=== PATIENT | female | born 1935 | race Caucasian/White ===

== ENCOUNTER 2019-01-24 14:12 | Observation (INO) | payer OTHER ==
--- NOTE | 2019-01-24 14:51 | RAD REPORT ---
EXAM DESCRIPTION: CT - Head Brain Wo Cont - 01/24/2019 2:43 pm CLINICAL HISTORY: Fall, syncope COMPARISON: None. TECHNIQUE: Axial 5 mm thick images of the head were obtained without IV contrast. All CT scans are performed using dose optimization technique as appropriate and may include automated exposure control or mA/KV adjustment according to patient size. FINDINGS: No intracranial hemorrhage, mass, edema or shift of mid-line structures. No acute infarcti on changes seen. Mild atrophy and chronic ischemic change. Ventricles are normal. Mastoid air cells are clear. Orbits, facial bones and sinuses are separately detailed. No acute bony findings. IMPRESSION: Mild atrophy and chronic ischemic change. No acute intracranial finding.
--- NOTE | 2019-01-24 14:53 | RAD REPORT ---
EXAM DESCRIPTION: CT - Facial Bones W/ Mpr - 01/24/2019 2:43 pm CLINICAL HISTORY: Fall, facial trauma, right periorbital injury COMPARISON: None. TECHNIQUE: Axial 2 millimeter thick images of the facial bones were obtained with sagittal and coron al reconstruction imaging. All CT scans are performed using dose optimization technique as appropriate and may include automated exposure control or mA/KV adjustment according to patient size. FINDINGS: Prominent cervical spine degenerative changes are present only partially imaged. Disc spac e narrowing is present from C2 -C6. No mandible fracture. Condyles are normally positioned. Mastoid air cells are clear. Paranasal sinuse s are clear. No facial bone fracture identifiable. Globes and orbital contents show no suspicious fin dings. Mild right-sided periorbital contusion or edema changes are present. Globes and orbital conten ts are unremarkable. IMPRESSION: No facial bone fracture. Right periorbital contusion and edema changes are present.
[2019-01-24] MEDS ORDERED: NA CHLORIDE 0.9% 500 ML ONE (15:12)
[2019-01-24 15:14] LABS: Absolute Lymphocytes (CBC) 1.4 K/uL (0.7-4.9); Absolute Monocytes 1.4 K/uL (0.1-1.3); Absolute Neutrophil 5.2 K/uL (1.8-8.0); Basophils % 0.6 % (0-1.3); Eosinophils % 3.6 % (0-4.4); Hematocrit 37.7 % (36.0-45.0); Lymphocytes % 16.5 % (15.3-44.8); MPV 7.1 fL (7.6-11.3); Monocytes % 16.5 % (3.3-12.3); RBC Red Blood Cell Count 3.88 M/uL (3.86-4.86)
[2019-01-24 15:33] LABS: BUN Blood Urea Nitrogen 20 mg/dL (7-18); Bicarbonate 28 mmol/L (21-32); Glucose Level 94 mg/dL (74-106); Sodium Level 129 mmol/L (136-145); Troponin (Emerg Dept Use Only) < 0.02 ng/mL (0.0-0.045)
[2019-01-24 16:28] LABS: Blood Morphology Comment NOT SEEN (NOT SEEN); Platelet Estimate ADEQ; Urine White Blood Cell Casts OK
--- NOTE | 2019-01-24 16:31 | RAD REPORT ---
EXAM DESCRIPTION: CT - Neck Angio - 01/24/2019 4:18 pm CLINICAL HISTORY: fall Fall, syncope, head injury and headache. COMPARISON: No comparisons TECHNIQUE: CT angiography of the neck vessels was performed with MIPs. All CT scans are performed using dose optimization technique as appropriate and may include automated exposure control or mA/KV adjustment according to patient size. FINDINGS: No significant flow abnormality is seen of the common carotid bilaterally. No significant stenosis is identified involving the cervical segments of both internal carotid arteri es. Normal flow is seen within both vertebral arteries. The left-sided vertebral artery is dominant. Moderate lower cervical degenerative change. IMPRESSION: No significant flow abnormality of the neck vessels is identified.
--- NOTE | 2019-01-24 16:34 | RAD REPORT ---
EXAM DESCRIPTION: CT - Head angio - 01/24/2019 4:17 pm CLINICAL HISTORY: SLURRED SPEECH Syncope, fall, head injury. Headache COMPARISON: Head Brain Wo Cont dated 01/24/2019; Facial Bones W/ Mpr dated 01/24/2019 TECHNIQUE: CT angiography of the head was performed with MIPs. All CT scans are performed using dose optimization technique as appropriate and may include automated exposure control or mA/KV adjustment according to patient size. FINDINGS: No evidence of aneurysm is detected. No flow-limiting stenosis or vascular malformation id entified. Antegrade flow is seen in the vertebral arteries. The left vertebral artery is dominant. The visualized dural venous sinuses are patent. IMPRESSION: No significant flow abnormality is detected.
[2019-01-24 16:39] LABS: Protime INR 0.89
--- NOTE | 2019-01-24 16:49 | EDPHYS ---
Physician Documentation [facility] Name: Scarlett Garrett Age: 83 yrs Sex: Female : 1935 Arrival Date: 01/24/2019 Time: 14:16 Bed 8 Private MD: ED Physician Herbert Rodriges HPI: 01/24 16:24 This 83 yrs old Female presents to ER via EMS with complaints of Syncope. rn 16:24 The patient has experienced syncope. Onset: The symptoms/episode began/occurred just rn prior to arrival. Duration: This was a single episode. Associated injury: Head/face: contusion. Current symptoms: headache. The patient has not experienced similar symptoms in the past. Reports syncopal episode at restaurant, felt lightheaded, went to use bathroom, voided, still felt lightheaded, passed out, then woke up on floor, Hit face on floor, no seizure like activity. No chest pain/abd pain/vomiting/diarrhea. No focal neurological complaints upon arrival. . Historical: - Allergies: 14:24 Cipro; iw 14:24 Levaquin; iw - Home Meds: 14:33 metoprolol tartrate 37.5 mg Oral tab 1 tab 2 times per day [Active]; nicardipine 20 mg iw oral cap twice a day [Active]; levothyroxine 50 mcg tab 1 tab once daily [Active]; Celebrex 200 mg Oral cap 1 cap once daily [Active]; Lexapro 10 mg Oral tab 1 tab once daily [Active]; trazodone 100 mg Oral tab nightly [Active]; Benicar 20 mg oral tab 1 tab once daily [Active]; vitamin A 10,000 unit Oral cap 1 cap once daily [Active]; Vitamin D Oral 5000 unit daily [Active]; Vitamin C Oral daily [Active]; Fish Oil oral oral daily [Active]; AREDS daily [Active]; magnesium oxide 400 mg Oral tab daily [Active]; biotin 5 mg oral tab daily [Active]; Zyrtec 10 mg Oral tab 1 tab once daily [Active]; Flonase 50 mcg/actuation Nasal spsn 1 spray once daily [Active]; - PMHx: 14:24 Arthritis; Depression; severe tricuspid valve regurgitation; iw - PSHx: 14:24 hip replacement; back; iw - Immunization history:: Adult Immunizations unknown. - Ebola Screening: : Patient negative for fever greater than or equal to 101.5 degrees Fahrenheit, and additional compatible Ebola Virus Disease symptoms Patient denies exposure to infectious person Patient denies travel to an Ebola-affected area in the 21 days before illness onset No symptoms or risks identified at this time. - Family history:: not pertinent. - Social history:: Smoking status: unknown. - Hospitalizations: : No recent hospitalization is reported. ROS: 16:24 Constitutional: Negative for fever, chills, and weight loss, Eyes: + pain and injury to rn right periorbital region Neck: Negative for injury, pain, and swelling, Cardiovascular: Negative for chest pain, palpitations, and edema, Respiratory: Negative for shortness of breath, cough, wheezing, and pleuritic chest pain, Abdomen/GI: Negative for abdominal pain, nausea, vomiting, diarrhea, and constipation, MS/Extremity: Negative for injury and deformity, Skin: Negative for injury, rash, and discoloration, Neuro: + headache, no focal weakness/numbness Exam: 16:24 Constitutional: This is a well developed, well nourished patient who is awake, alert, rn and in no acute distress. Head/Face: Normocephalic Eyes: Pupils equal round and reactive to light, extra-ocular motions intact. Lids and lashes normal. Conjunctiva and sclera are non-icteric and not injected. Cornea within normal limits. + right lateral periorbital ecchymosis with mild tenderness, no evidence of entrapment. ENT: Mucous membranes moist. Neck: No cervical tenderness Cardiovascular: Regular rate and rhythm, No pulse deficits. Respiratory: Lungs have equal breath sounds bilaterally, clear to auscultation. No increased work of breathing, no retractions or nasal flaring. Abdomen/GI: soft, non-tender MS/ Extremity: Pulses equal, no cyanosis. Neurovascular intact. Full, normal range of motion. Equal circumference. Neuro: Awake and alert, GCS 15, oriented to person, place, time, and situation. Cranial nerves II-XII grossly intact. Motor strength 5/5 in all extremities. Sensory grossly intact. Cerebellar exam normal. Vital Signs: 14:21 BP 110 / 58; Pulse 65; Resp 16 S; Temp 97.3(TE); Pulse Ox 100% on R/A; Weight 70.31 kg; iw Height 5 ft. 9 in. (175.26 cm); Pain 6/10; 15:00 BP 128 / 65; Pulse 62; Resp 16 S; Pulse Ox 99% on R/A; aa5 15:31 BP 129 / 54; Pulse 61; Resp 16 S; Pulse Ox 100% on R/A; iw 16:50 BP 129 / 85; Pulse 59; Resp 16; Pulse Ox 99% ; sv 17:30 BP 143 / 78; Pulse 60; Resp 16 S; Pulse Ox 99% on R/A; aa5 18:14 BP 147 / 94; Pulse 60; Resp 14 S; Pulse Ox 100% on R/A; aa5 19:36 Pulse 61; Resp 16 S; Pulse Ox 100% on R/A; jd3 20:33 Pulse 59; Resp 17 S; Pulse Ox 100% on R/A; jd3 14:21 Body Mass Index 22.89 (70.31 kg, 175.26 cm) iw NIH Stroke Scale Scores: 15:47 NIHSS Score: 1 aa5 MDM: 14:19 Patient medically screened. rn 16:47 Differential Diagnosis: cardiac arrhythmia, cerebrovascular accident, idiopathic rn syncope, transient ischemic attack, vasovagal episode. Data reviewed: vital signs, nurses notes, lab test result(s), EKG, radiologic studies, CT scan, and as a result, I will admit patient. Counseling: I had a detailed discussion with the patient and/or guardian regarding: the historical points, exam findings, and any diagnostic results supporting the discharge/admit diagnosis, lab results, radiology results, the need for further work-up and treatment in the hospital. Response to treatment: the patient's symptoms have markedly improved after treatment, the patient's condition has returned to base line, and as a result, I will discharge patient. Admission orders: after a detailed discussion of the patient's condition and case, the admit orders are written by me. 01/24 14:30 Order name: Basic Metabolic Panel; Complete Time: 16:36 rn 01/24 14:30 Order name: CBC with Diff; Complete Time: 16:36 rn 01/24 14:30 Order name: Protime (+inr); Complete Time: 16:49 rn 01/24 14:30 Order name: Ptt, Activated; Complete Time: 16:49 rn 01/24 14:30 Order name: Troponin (emerg Dept Use Only); Complete Time: 16:36 rn 01/24 15:17 Order name: CBC Smear Scan; Complete Time: 16:36 EDMS 01/24 14:30 Order name: CT Head Brain wo Cont; Complete Time: 14:57 rn 01/24 14:30 Order name: EKG; Complete Time: 14:31 rn 01/24 14:30 Order name: CT Facial Bones W/O Con; Complete Time: 14:57 rn 01/24 15:57 Order name: CT Head Angio; Complete Time: 16:36 bd 01/24 15:57 Order name: CT Neck Angio; Complete Time: 16:36 bd 01/24 18:45 Order name: Glucose, Ancillary Testing; Complete Time: 07:32 EDMS 01/24 21:15 Order name: MRI; Complete Time: 07:32 EDMS 01/24 14:30 Order name: Cardiac monitoring; Complete Time: 14:34 rn 01/24 14:30 Order name: EKG - Nurse/Tech; Complete Time: 14:34 rn 01/24 14:30 Order name: IV Saline Lock; Complete Time: 14:34 rn 01/24 14:30 Order name: Labs collected and sent; Complete Time: 15:12 rn 01/24 14:30 Order name: NPO; Complete Time: 15:02 rn 01/24 14:30 Order name: O2 Per Protocol; Complete Time: 14:34 rn 01/24 14:30 Order name: O2 Sat Monitoring; Complete Time: 14:34 rn Administered Medications: 14:50 Drug: NS 0.9% 500 ml Route: IV; Rate: bolus; Site: right antecubital; aa5 15:30 Follow up: IV Status: Completed infusion aa5 Point of Care Testing: Blood Glucose: 15:55 Blood Glucose: 92 mg/dL; iw Ranges: Critical Glucose Levels:Adult <50 mg/dl or >400 mg/dl <40 mg/dl or >180 mg/dl Disposition: 01/24/19 16:49 Hospitalization ordered by Ginger Sharpe for Observation. Preliminary diagnosis are Syncope and collapse, Concussion. - Bed requested for Telemetry/MedSurg (observation). - Status is Observation. jd3 - Condition is Stable. - Problem is new. - Symptoms have improved. UTI on Admission? No NIH Stroke Scale - NIH Stroke Score Date: 01/24/2019 Time: 15:47 Total Score = 1 1a. Level of Consciousness (LOC) - 0(Alert) 1b. Level of Consciousness (LOC) (Year \T\ Age) - 0(Both) 1c. LOC Commands (Open \T\ Closes Eyes/Social Media Executive) - 0(Both) 2. Best Gaze (Lateral Gaze Paresis) - 0(Normal) 3. Visual Field Loss - 0(No visual loss) 4. Facial Palsy - 0(Normal) 5a. Left Arm: Motor (10-second hold) - 0(No drift) 5b. Right Arm: Motor (10-second hold) - 0(No drift) 6a. Left Leg: Motor (5-second hold - always test supine) - 0(No drift) 6b. Right Leg: Motor (5-second hold - always test supine) - 0(No drift) 7. Limb Ataxia (finger/nose \T\ heel/hawkins - test with eyes open) - 0(Absent) 8. Sensory Loss (pinprick arms/legs/face) - 0(Normal) 9. Best Language: Aphasia (description/naming/reading) - 0(No aphasia) 10. Dysarthria (speech clarity - read or repeat words) - 1(Mild to Moderate) 11. Extinction and Inattention (visual/tactile/auditory/spatial/personal) - 0(No abnormality) Initials: aa5 Signatures: Dispatcher [employer] EDMS Dinah Fierro RN RN iw Nieto, Roman, MD MD rn Calderon, Audri, RN RN aa5 Cira Cervantes RN RN df Davies, Jonathon, RN RN jd3 Corrections: (The following items were deleted from the chart) 19:47 16:49 Hospitalization Ordered by Ginger Sharpe MD for Observation. Preliminary df diagnosis is Syncope and collapse; Concussion. Bed requested for Telemetry/MedSurg (observation). Status is Observation. Condition is Stable. Problem is new. Symptoms have improved. UTI on Admission? No. rn 21:16 19:47 01/24/2019 16:49 Hospitalization Ordered by Ginger Sharpe MD for jd3 Observation. Preliminary diagnosis is Syncope and collapse; Concussion. Bed requested for Telemetry/MedSurg (observation). Status is Observation. Condition is Stable. Problem is new. Symptoms have improved. UTI on Admission? No. df
--- NOTE | 2019-01-24 16:49 | ER ---
Nurse's Notes [facility] Name: Scarlett Garrett Age: 83 yrs Sex: Female : 1935 Arrival Date: 01/24/2019 Time: 14:16 Bed 8 Private MD: Diagnosis: Syncope and collapse;Concussion Presentation: 01/24 14:16 Presenting complaint: Patient states: walked to bathroom at restaurant, felt dizzy iw while walking, while sitting on toilet pt had increasing dizziness, then tried to stand and passed out, pt did hit head, bruising noted to right side of face/eye, pt states dizziness has resolved, denies chest pain or SOB, denies n/v, c/o pain to face 03/28. Initial BP was 80/50, up to 115 systolic upon arrival to ER. pt A\\T\\OX3. Transition of care: patient was not received from another setting of care. Onset of symptoms was January 24, 2019. Risk Assessment: Do you want to hurt yourself or someone else? Patient reports no desire to harm self or others. Initial Sepsis Screen: Does the patient meet any 2 criteria? No. Patient's initial sepsis screen is negative. Does the patient have a suspected source of infection? No. Patient's initial sepsis screen is negative. Care prior to arrival: IV initiated. 20 GA, in the right antecubital area, Glucose check: 125. 14:16 Method Of Arrival: EMS: [facility] iw 14:16 Acuity: VANESA 2 iw 15:48 An acute neurological deficit is present. The charge nurse has been notified. The iw patients blood glucose was checked before arriving to the hospital and was found to be normal. Triage Assessment: 15:47 The onset of the patients symptoms was January 24, 2019 at 15:47. aa5 Stroke Activation: Symptom onset < 3 hours Physician: Stroke Attending; Name: ; Notified At: ; Arrived At: Physician: Chief Stroke Resident; Name: ; Notified At: ; Arrived At: Physician: Stroke Resident; Name: ; Notified At: ; Arrived At: Physician: ED Attending; Name: Dr. Rodriges; Notified At: 15:48; Arrived At: 15:48 Physician: ED Resident; Name: ; Notified At: ; Arrived At: Historical: - Allergies: 14:24 Cipro; iw 14:24 Levaquin; iw - Home Meds: 14:33 metoprolol tartrate 37.5 mg Oral tab 1 tab 2 times per day [Active]; nicardipine 20 mg iw oral cap twice a day [Active]; levothyroxine 50 mcg tab 1 tab once daily [Active]; Celebrex 200 mg Oral cap 1 cap once daily [Active]; Lexapro 10 mg Oral tab 1 tab once daily [Active]; trazodone 100 mg Oral tab nightly [Active]; Benicar 20 mg oral tab 1 tab once daily [Active]; vitamin A 10,000 unit Oral cap 1 cap once daily [Active]; Vitamin D Oral 5000 unit daily [Active]; Vitamin C Oral daily [Active]; Fish Oil oral oral daily [Active]; AREDS daily [Active]; magnesium oxide 400 mg Oral tab daily [Active]; biotin 5 mg oral tab daily [Active]; Zyrtec 10 mg Oral tab 1 tab once daily [Active]; Flonase 50 mcg/actuation Nasal spsn 1 spray once daily [Active]; - PMHx: 14:24 Arthritis; Depression; severe tricuspid valve regurgitation; iw - PSHx: 14:24 hip replacement; back; iw - Immunization history:: Adult Immunizations unknown. - Ebola Screening: : Patient negative for fever greater than or equal to 101.5 degrees Fahrenheit, and additional compatible Ebola Virus Disease symptoms Patient denies exposure to infectious person Patient denies travel to an Ebola-affected area in the 21 days before illness onset No symptoms or risks identified at this time. - Family history:: not pertinent. - Social history:: Smoking status: unknown. - Hospitalizations: : No recent hospitalization is reported. Screenin:35 Abuse screen: Denies threats or abuse. Denies injuries from another. Nutritional iw screening: No deficits noted. Tuberculosis screening: No symptoms or risk factors identified. Fall Risk Fall in past 12 months (25 points). IV access (20 points). Assessment: 14:20 General: Appears in no apparent distress. Behavior is calm, cooperative. Pain: iw Complains of pain in right eye and right cheek Pain currently is 6 out of 10 on a pain scale. Neuro: Level of Consciousness is awake, alert, obeys commands, Moves all extremities. Full function. Neuro: Reports a syncopal episode Denies dizziness. Cardiovascular: Patient's skin is warm and dry. Rhythm is regular. Respiratory: Respiratory effort is even, unlabored, Respiratory pattern is regular, symmetrical. GI: Abdomen is flat, non-distended. Derm: Skin is intact, is healthy with good turgor, Bruising that is dark purple, on right eye. Musculoskeletal: Range of motion: intact in all extremities. 15:00 General: Appears comfortable, Behavior is calm, cooperative. Pain: Complains of pain in aa5 right cheek and right eye Pain does not radiate. Pain currently is 6 out of 10 on a pain scale. Quality of pain is described as aching, tender, throbbing, Pain began Post-fall Is continuous. Neuro: Level of Consciousness is awake, alert, obeys commands, Oriented to person, place, time, situation, Assistant Produce Manager are equal bilaterally Moves all extremities. Speech is normal, Facial symmetry appears normal, Pupils are PERRLA, Denies dizziness, Pt states "I was dizzy and nauseated before I passed out" . Cardiovascular: Heart tones S1 S2 present Rhythm is sinus rhythm. Respiratory: Airway is patent Respiratory effort is even, unlabored, Respiratory pattern is regular, symmetrical. GI: Abdomen is non-distended, Bowel sounds present X 4 quads. Abd is soft and non tender X 4 quads. : No signs and/or symptoms were reported regarding the genitourinary system. EENT: No signs and/or symptoms were reported regarding the EENT system. Derm: Skin is pink, warm \\T\\ dry. Bruising that is dark purple, on outer corner of right eye. Musculoskeletal: Range of motion: intact in all extremities. 15:47 Reassessment: Family member came to nurses' station and stated "can you come check on aa5 her she is talking funny". Pt lying down in bed, intermittent slurring of words noted, pt states "I know I am having trouble speaking", pt is A\\T\\Ox 4, guncotton packer equal bilaterally, no arm/leg drift noted, pupils are PERRL, face is symmetrical. Dr. Rodriges notified . 15:47 VAN Scoring: Arm Drift: Patients demonstrates NO arm weakness. Patient is VAN Negative. aa5 15:48 Reassessment: Code Stroke called to ER, per Kandi Michelle, pt having difficulty iw speaking, Dr. Rodriges at bedside to assess. 16:00 Reassessment: Pt to CT at this time . aa5 17:00 Reassessment: Patient is alert, oriented x 3, equal unlabored respirations, skin aa5 warm/dry/pink. Patient states feeling better. Pt and family deny any more episodes of slurred speech. . Neuro: Level of Consciousness is awake, alert, obeys commands, Oriented to person, place, time, situation, Assistant Produce Manager are equal bilaterally Moves all extremities. Speech is normal, Facial symmetry appears normal, Pupils are PERRLA. 18:20 Patient has been NPO before screening. The patient is alert, and able to follow aa5 commands. The patient does not exhibit slurred or garbled speech. The patient is not exhibiting difficulty speaking. The patient is exhibiting difficulty understanding words. The patient is able to swallow own secretions with no drooling or need for suction. Patient tolerated one teaspoon of water. No drooling, immediate coughing, gurgling, or clearing of the throat was noted. The patient tolerated 90mL of water. No drooling, immediate coughing, gurgling, or clearing of the throat was noted. The patient passed the bedside swallow screening. Oral medications may be given as ordered. Contact Physician for further diet orders. Provider notified of bedside swallow screening results: Herbert Rodriges MD. 18:20 Reassessment: Patient is alert, oriented x 3, equal unlabored respirations, skin aa5 warm/dry/pink. 18:30 Reassessment: Patient is alert, oriented x 3, equal unlabored respirations, skin aa5 warm/dry/pink. Pt assisted to bathroom via wheelchair, pt voided x 1 . 19:35 Reassessment: Patient appears in no apparent distress at this time. Patient and/or jd3 family updated on plan of care and expected duration. Pain level reassessed. Patient is alert, oriented x 3, equal unlabored respirations, skin warm/dry/pink. General: Appears in no apparent distress. comfortable, Behavior is calm, cooperative, appropriate for age. Neuro: Level of Consciousness is awake, alert, obeys commands, Oriented to person, place, time, situation, Appropriate for age Speech is normal. Cardiovascular: Capillary refill < 3 seconds Patient's skin is warm and dry. Respiratory: Airway is patent Respiratory effort is even, unlabored, Respiratory pattern is regular, symmetrical. Vital Signs: 14:21 BP 110 / 58; Pulse 65; Resp 16 S; Temp 97.3(TE); Pulse Ox 100% on R/A; Weight 70.31 kg; iw Height 5 ft. 9 in. (175.26 cm); Pain 6/10; 15:00 BP 128 / 65; Pulse 62; Resp 16 S; Pulse Ox 99% on R/A; aa5 15:31 BP 129 / 54; Pulse 61; Resp 16 S; Pulse Ox 100% on R/A; iw 16:50 BP 129 / 85; Pulse 59; Resp 16; Pulse Ox 99% ; sv 17:30 BP 143 / 78; Pulse 60; Resp 16 S; Pulse Ox 99% on R/A; aa5 18:14 BP 147 / 94; Pulse 60; Resp 14 S; Pulse Ox 100% on R/A; aa5 19:36 Pulse 61; Resp 16 S; Pulse Ox 100% on R/A; jd3 20:33 Pulse 59; Resp 17 S; Pulse Ox 100% on R/A; jd3 14:21 Body Mass Index 22.89 (70.31 kg, 175.26 cm) iw NIH Stroke Scale Scores: 15:47 NIHSS Score: 1 aa5 ED Course: 14:16 Patient arrived in ED. iw 14:19 Herbert Rodriges MD is Attending Physician. rn 14:21 Triage completed. iw 14:21 Arm band placed on. iw 14:34 Maintain EMS IV. Dressing intact. Good blood return noted. Site clean \\T\\ dry. Gauge \\T\\ iw site: 20 RAC. 14:37 EKG done, by die technician. reviewed by Herbert Rodriges MD. at1 14:43 CT Head Brain wo Cont In Process Unspecified. EDMS 14:43 CT Facial Bones W/O Con In Process Unspecified. EDMS 14:44 Kandi Michelle, RN is Primary Nurse. aa5 15:00 Patient has correct armband on for positive identification. Bed in low position. Call aa5 light in reach. Side rails up X2. hotel receptionist on. Pulse ox on. NIBP on. 16:17 CT Head Angio In Process Unspecified. EDMS 16:17 CT Neck Angio In Process Unspecified. EDMS 16:48 Ginger Sharpe MD is Hospitalizing Provider. rn 19:00 Report given to Caryl RN and LEE ANN Mancera. aa5 20:34 No provider procedures requiring assistance completed. Patient admitted, IV remains in jd3 place. 20:38 Patient moved to MRI via stretcher. jd3 Administered Medications: 14:50 Drug: NS 0.9% 500 ml Route: IV; Rate: bolus; Site: right antecubital; aa5 15:30 Follow up: IV Status: Completed infusion aa5 Point of Care Testing: Blood Glucose: 15:55 Blood Glucose: 92 mg/dL; iw Ranges: Outcome: 16:49 Decision to Hospitalize by Provider. rn 20:35 Admitted to Med/surg accompanied by tech, via wheelchair, room 221, with chart, Report jd3 called to Jacinta NANCE 20:35 Condition: stable 20:35 Instructed on the need for admit, Demonstrated understanding of instructions. 21:16 Patient left the ED. j NIH Stroke Scale - NIH Stroke Score Date: 01/24/2019 Time: 15:47 Total Score = 1 1a. Level of Consciousness (LOC) - 0(Alert) 1b. Level of Consciousness (LOC) (Year \\T\\ Age) - 0(Both) 1c. LOC Commands (Open \\T\\ Closes Eyes/Utility Specialist) - 0(Both) 2. Best Gaze (Lateral Gaze Paresis) - 0(Normal) 3. Visual Field Loss - 0(No visual loss) 4. Facial Palsy - 0(Normal) 5a. Left Arm: Motor (10-second hold) - 0(No drift) 5b. Right Arm: Motor (10-second hold) - 0(No drift) 6a. Left Leg: Motor (5-second hold - always test supine) - 0(No drift) 6b. Right Leg: Motor (5-second hold - always test supine) - 0(No drift) 7. Limb Ataxia (finger/nose \\T\\ heel/hawkins - test with eyes open) - 0(Absent) 8. Sensory Loss (pinprick arms/legs/face) - 0(Normal) 9. Best Language: Aphasia (description/naming/reading) - 0(No aphasia) 10. Dysarthria (speech clarity - read or repeat words) - 1(Mild to Moderate) 11. Extinction and Inattention (visual/tactile/auditory/spatial/personal) - 0(No abnormality) Initials: aa5 Signatures: Dispatcher [employer] Olive Garcia, RN Dinah Blake RN RN iw Herbert Rodriges MD MD rn Calderon, Audri, RN RN aa5 Ita Will, spool hauler EKG Tat1 Calderon Russell, RN RN jd3 Corrections: (The following items were deleted from the chart) 14:34 14:21 BP 110 / 58; Pulse 65bpm; Resp 16bpm; Spontaneous; Pulse Ox 100% RA; iw 70.31 kg; Height 5 ft. 9 in.; BMI: 22.8; Pain 6/10; iw 21:59 20:33 BP 144 / 84; Pulse 59bpm; Resp 17bpm; Spontaneous; Pulse Ox 100% RA; jd3 jd3
[2019-01-24] MEDS ORDERED: ONDANSETRON 4 MG/2 ML VIAL IV PRN (20:33)
[2019-01-24] MEDS: INSULIN -REGULAR HUMAN 50 UNIT/0.5 ML ML SQ SCH (21:00)
--- NOTE | 2019-01-24 21:14 | RAD REPORT ---
EXAM DESCRIPTION: MRI - Brain Wo Cont - 01/24/2019 8:51 pm CLINICAL HISTORY: Syncopal Episode Headache, head injury COMPARISON: Head angio dated 01/24/2019; Facial Bones W/ Mpr dated 01/24/2019; Head Brain Wo Cont dated 01/24/2019; Neck Angio dated 01/24/2019 TECHNIQUE: Multi-sequence, multiplanar MR imaging of the brain was performed without contrast. FINDINGS: No intracranial hemorrhage, hydrocephalus or extra-axial fluid collections. Mild brain atr ophy is seen with mild chronic microvascular ischemic changes present. DWI is negative for acute CVA. There is a small 11 x 4 mm extra-axial mass suspected in the region of the tuberculum sella. The midl ine structures are otherwise normally formed Mastoid air cells and paranasal sinuses are clear. IMPRESSION: Negative for acute CVA or other acute intracranial abnormality. Small 11 x 4 mm mass in the region of the tuberculum sella noted. This may represent a small meningio ma although assessment on noncontrast examination is limited. Consider MR post-contrast sequences thr ough the brain for further evaluation if clinically indicated.
[2019-01-24] MEDS: NA CHLORIDE 0.9% 1,000 ML IV SCH (22:19)
[2019-01-25] MEDS: TRAZODONE 50 MG TABLET PO SCH ×2 (01:22→21:44)
[2019-01-25] MEDS: ACETAMINOPHEN 325 MG TABLET PO PRN ×3 (01:23→21:45)
[2019-01-25 03:13] LABS: Urine Appearance CLEAR; Urine Bilirubin NEGATIVE (NEG); Urine Blood NEGATIVE (NEG); Urine Color YELLOW; Urine Glucose NEGATIVE (NEG); Urine Protein NEGATIVE (NEG); Urine Urobilinogen 0.2 mg/dL (0.2-1.0)
[2019-01-25 03:38] LABS: Urine Microscopic Reflex NO UMIC
[2019-01-25 05:42] LABS: Absolute Lymphocytes (CBC) 1.5 K/uL (0.7-4.9); Absolute Monocytes 1.2 K/uL (0.1-1.3); Absolute Neutrophil 4.6 K/uL (1.8-8.0); Basophils % 0.7 % (0-1.3); Eosinophils % 5.6 % (0-4.4); Hematocrit 35.8 % (36.0-45.0); Lymphocytes % 18.7 % (15.3-44.8); MPV 7.3 fL (7.6-11.3); RBC Red Blood Cell Count 3.69 M/uL (3.86-4.86)
[2019-01-25] MEDS: LEVOTHYROXINE SOD 0.05 MG TABLET PO SCH (05:43)
[2019-01-25] MEDS: NA CHLORIDE 0.9% 1,000 ML IV SCH ×2 (05:43→18:42)
[2019-01-25 06:01] LABS: Albumin 3.1 g/dL (3.4-5.0); Bilirubin Total 0.5 mg/dL (0.2-1.0); Magnesium 2.3 mg/dL (1.8-2.4); Phosphorus 4.3 mg/dL (2.5-4.9); Protein, Total 5.5 g/dL (6.4-8.2)
[2019-01-25] MEDS: INSULIN -REGULAR HUMAN 50 UNIT/0.5 ML ML SQ SCH ×4 (07:30→21:00)
[2019-01-25] MEDS: NICARDIPINE HCL PO SCH ×2 (09:00→21:00)
--- NOTE | 2019-01-25 09:55 | P.HP ---
Certification for Inpatient Patient admitted to: Observation With expected LOS: <2 Midnights Patient will require the following post-hospital care: None Practitioner: I am a practitioner with admitting privileges, knowledge of patient current condition, hospital course, and medical plan of care. Services: Services provided to patient in accordance with Admission requirements found in Title 42 Section 412.3 of the Code of Federal Regulations Patient History Date of Service: 01/24/19 Reason for admission: Syncope History of Present Illness: Patient is an 83-year-old female who came to the hospital after a syncopal event. Patient was going to the bathroom when she fell in collapse. She apparently hit her head on the floor. She has a small laceration of the right eye. She was admitted to the hospital for further workup. Allergies ciprofloxacin [From Cipro] Allergy (Verified 01/24/19 22:01) Unknown levofloxacin [From Levaquin] Allergy (Verified 01/24/19 22:01) Rash Home Medications: Fish Oil/Dha/Epa [Fish Oil 1,200 mg Fish Oil] 1 each PO DAILY 08/14/15 Metoprolol Succinate [Toprol Xl*] 37.5 mg PO BID 08/14/15 Trazodone [Desyrel*] 100 mg PO BEDTIME 08/14/15 Began Benicar 20 mg PO DAILY 01/24/19 Biotin 5,000 mcg PO DAILY 01/24/19 Celecoxib 1 tab PO DAILY 01/24/19 Escitalopram [Lexapro*] 10 mg PO DAILY 01/24/19 Levothyroxine [Synthroid*] 1 tab PO [id number] 01/24/19 Magnesium [Magnesium Gluconate] 400 mg PO DAILY 01/24/19 Nicardipine HCl [Cardene] 1 tab PO BID 01/24/19 Turmeric/Turmeric Root Extract [Turmeric 500 mg Capsule] 4,000 mg PO DAILY 01/24 Vit A & D3 in Cod Liver Oil [Cod Liver Oil Softgel] 1 tab PO DAILY 01/24/19 - Past Medical/Surgical History Has patient received pneumonia vaccine in the past: Yes Diabetic: No -: arthritis -: depression -: severe TVR -: hiop replacement -: back surgery - Family History Father Family History: Reviewed- Non-Contributory - Social History Smoking Status: Never smoker Alcohol use: Yes CD- Drugs: No Caffeine use: Yes Place of Residence: Home Review of Systems 10-point ROS is otherwise unremarkable Physical Examination - Vital Signs Temperature: 98.2 F Blood Pressure: 134/66 Pulse: 65 Respirations: 17 Pulse Ox (%): 98 - Physical Exam General: Alert, In no apparent distress, Oriented x3 HEENT: Atraumatic, PERRLA, Mucous membr. moist/pink, EOMI, Sclerae nonicteric Neck: Supple, 2+ carotid pulse no bruit, No LAD, Without JVD or thyroid abnormality Respiratory: Clear to auscultation bilaterally, Normal air movement Cardiovascular: Regular rate/rhythm, Normal S1 S2, No murmurs Gastrointestinal: Normal bowel sounds, Soft and benign, Non-distended, No tenderness Musculoskeletal: No clubbing, No swelling, No tenderness Integumentary: No rashes Neurological: Normal gait, Normal speech, Normal strength at 5/5 x4 extr, Normal tone, Sensation intact, Cranial nerves 3-12 intact, Normal affect Lymphatics: No axilla or inguinal lymphadenopathy - Studies Laboratory Data (last 24 hrs) 01/24/19 15:00: PT 10.6, INR 0.89, APTT 19.5 L 01/24/19 15:00: WBC 8.3, Hgb 12.7, Hct 37.7, Plt Count 296 01/24/19 15:00: Sodium 129 L, Potassium 4.0, BUN 20 H, Creatinine 0.94, Glucose 94 Assessment & Plan - Problems (Diagnosis) (1) Syncope and collapse Current Visit: Yes Status: Acute - Plan Plan: 1. MRI of the brain 2. Carotid Doppler 3. Monitor on telemetry 4. Echocardiogram 5. Monitor orthostatics 6. Gentle hydration 7. GI and DVT prophylaxis Discharge Plan: Home Plan to discharge in: 24 Hours - Advance Directives Does patient have a Living Will: Yes Does patient have a Durable POA for Healthcare: Yes - Code Status/Comfort Care Code Status Assessed: Yes Code Status: Full Code Critical Care: No Time Spent Managing PTS Care (In Minutes): 40
[2019-01-25] MEDS: ESCITALOPRAM 20 MG TAB PO SCH (09:56)
[2019-01-25] MEDS: METOPROLOL XL 25 MG TAB PO SCH ×2 (09:56→21:44)
--- NOTE | 2019-01-25 11:40 | EKG ---
Test Date: 2019-01-24 Test Time: 14:29:43 Wire Bound Box Machine Helper: RAN MEASUREMENT RESULTS: Intervals: Rate: 60 SC: 178 QRSD: 76 QT: 422 QTc: 422 [place]: P: 85 SC: 178 QRS: 31 T: 35 INTERPRETIVE STATEMENTS: Normal sinus rhythm with sinus arrhythmia Septal infarct, age undetermined Abnormal ECG Compared to ECG 07/23/2007 21:06:45 Myocardial infarct finding now present Electronically Signed On 01-24-19 16:05:54 CDT by Raymond Romero
--- NOTE | 2019-01-25 11:48 | ECHO ---
HEIGHT: 5 ft 9 in WEIGHT: 155 lb 0 oz DATE OF STUDY: 01/25/[address]: Ginger Sharpe MD 2-DIMENSIONAL: YES M.MODE: YES DOPPLER: YES COLOR FLOW: YES TDS: NO PORTABLE: NO DEFINITY: NO BUBBLE STUDY: NO DIAGNOSIS: SYNCOPAL EPISODE CARDIAC HISTORY: CATHERIZATION: NO SURGERY: NO PROSTHETIC VALVE: NO PACEMAKER: NO MEASUREMENTS (cm) DIASTOLIC (NORMALS) SYSTOLIC (NORMALS) IVSd 1.0 (0.6-1.2) LA Diam 3.3 (1.9-4.0) LVEF 64% LVIDd 4.4 (3.5-5.7) LVIDs 2.9 (2.0-3.5) %FS 35% LVPWd 1.1 (0.6-1.2) Ao Diam 3.3 (2.0-3.7) 2 DIMENSIONAL ASSESSMENT: RIGHT ATRIUM: DILATED LEFT ATRIUM: NORMAL RIGHT VENTRICLE: NORMAL LEFT VENTRICLE: NORMAL TRICUSPID VALVE: NORMAL MITRAL VALVE: NORMAL PULMONIC VALVE: NORMAL AORTIC VALVE: NORMAL PERICARDIAL EFFUSION: NONE AORTIC ROOT: NORMAL LEFT VENTRICULAR WALL MOTION: NORMAL. DOPPLER/COLOR FLOW: MILD MITRAL REGURGITATION. MODERATE TRICUSPID REGURGITATION. ESTIMATED RIGHT VENTRICULAR SYSTOLIC PRESSURE 45-50mmHg. MILD-MODERATE PULMONARY HYPERTENSION. ESTIMATED RIGHT ATRIAL PRESSURE 15mmHg. COMMENTS: NORMAL LEFT VENTRICULAR EJECTION FRACTION. DILATED RIGHT ATRIUM WITH ELEVATED RIGHT ATRIAL PRESSURE. MILD MITRAL REGURGITATION. MODERATE TRICUSPID REGURGITATION. MILD-MODERATE PULMONARY HYPERTENSION. TECHNOLOGIST: FRANCO ROJAS
--- NOTE | 2019-01-25 15:06 | P.PN ---
Subjective Date of Service: 01/25/19 Chief Complaint: Syncope Subjective: No C/O voiced, Tolerating diet, Ambulating, Improving, Doing well Review of Systems 10-point ROS is otherwise unremarkable Physical Examination - Vital Signs Temperature: 97.7 F Blood Pressure: 130/60 Pulse: 68 Respirations: 18 Pulse Ox (%): 98 - Physical Exam General: Alert, In no apparent distress HEENT: Other (Right Face swollen. improving since yesterday. Bursing noted on the right eye) Neck: Supple, JVD not distended Respiratory: Clear to auscultation bilaterally, Normal air movement Cardiovascular: Regular rate/rhythm, Normal S1 S2 Gastrointestinal: Normal bowel sounds, No tenderness Musculoskeletal: No tenderness Integumentary: No rashes Neurological: Normal speech, Normal tone, Normal affect Lymphatics: No axilla or inguinal lymphadenopathy - Studies Laboratory Data (last 24 hrs) 01/24/19 15:00: PT 10.6, INR 0.89, APTT 19.5 L 01/24/19 15:00: WBC 8.3, Hgb 12.7, Hct 37.7, Plt Count 296 01/24/19 15:00: Sodium 129 L, Potassium 4.0, BUN 20 H, Creatinine 0.94, Glucose 94 Medications List Reviewed: Yes Assessment And Plan - Current Problems (Diagnosis) (1) Benign meningioma of brain Current Visit: Yes Status: Acute Plan: Brain MRI w/o Contrast + for 11x4mm Mass possibly Meningioma. -+ FH of brain tumor in Mother -Neurology consulted. Appreciated Reccs -Repeat MRI with contrast -EEG -Keppra 250mg BID -Monitor for seizures or any other complication (2) Syncope and collapse Current Visit: Yes Status: Acute Plan: Syncopal Episode 2.2 to Vasovagal vs Brain Mass vs Seizure -Head CT negative -Brain MRI with 11x4mm mass possible meningioma -ECHO, and lab work pending -PT/OT consulted. (3) Hypothyroidism Current Visit: Yes Status: Chronic Qualifiers: Hypothyroidism type: acquired Qualified Code(s): E03.9 - Hypothyroidism, unspecified (4) HTN (hypertension) Current Visit: Yes Status: Chronic Qualifiers: Hypertension type: essential hypertension Qualified Code(s): I10 - Essential (primary) hypertension Discharge Plan: Home Plan to discharge in: Greater than 2 days - Code Status/Comfort Care Code Status Assessed: Yes Critical Care: No
--- NOTE | 2019-01-25 16:27 | RAD REPORT ---
EXAM DESCRIPTION: MRI - Brain With Cont - 01/25/2019 3:45 pm CLINICAL HISTORY: Meningioma, syncope COMPARISON: MRI January 24 TECHNIQUE: Axial, sagittal and coronal T1 weighted images were obtained following 16 milliliter Mult iHance contrast volume. FINDINGS: Prior imaging demonstrated an 11 x 4 mm soft tissue mass in the tuberculum sella isodense to brain parenchyma. On today's examination this soft tissue mass shows a homogeneous, vigorous enhan cement. Collective imaging characteristics are consistent with a small meningioma. No mass effect on adjacent structures. No invasion into the sella turcica. No other dura or brain parenchymal enhancement abnormality. No other significant finding noted. IMPRESSION: Approximately 11 x 4 mm meningioma at the tuberculum sella. Long-term significance is doubtful at the patient's age. This can be monitored with follow-up imaging and 12 months.
[2019-01-25] MEDS: levETIRAcetam 500 MG TAB PO SCH (21:44)
--- NOTE | 2019-01-25 23:57 | CON ---
Reason For Consultation: Consultation called because of syncope. History Of Present Illness: Ms. Garrett is an 83-year-old right-handed patient who was in he r usual state of health until she went to the bathroom yesterday and got out and walked out and passe d out. She said she gets very little warning, but felt as though she was going to pass out with tunn eling of vision. She hit the floor, hitting the right side of her face with a small cut over eye and bruise on the right arm. After unclear amount of time, she did regain awareness and was brought to [facility] by family. She did report she has a history of vasovagal syncope and did have a cardiac workup in the past showi ng some cardiac arrhythmias and was put on beta blockers at some point in the past. However, she den ies previous episode being exactly as the current event. At [facility], her head CT scan sh owed mild atrophy and chronic ischemic change, a subsequent brain MRI did identify an 11 x 4 mm extra -axial mass and tuberculum sella. This structure was identified as a meningioma. She had no prior c omparison study. The patient said her mother actually had a meningioma and had seizures due to the meningioma. She did have a CT angiogram of her neck, which showed no significant abnormalities. CT angiogram of her head showed no significant abnormalities. Echocardiogram showed ejection fraction 64% with moder ate tricuspid regurgitation, mild mitral regurgitation, moderate pulmonary hypertension. She did have an EEG done, results are pending. Past Medical History: As indicated above in addition to depression, arthritis. Surgical History: Hip replacement, back surgery. Family History: As indicated. Mother with seizures and aneurysm. Allergies: LEVAQUIN AND CIPROFLOXACIN. Medications At Home: Fish oil 1200 mg daily; Toprol 37.5 mg twice daily; trazodone 100 mg at bedtime ; Benicar 20 mg daily; biotin 500 mcg daily; celecoxib 1 tablet daily; Lexapro 10 mg daily; Synthroid daily; magnesium gluconate 400 mg daily; nicardipine daily; turmeric extract 500 mg capsules, 4000 m g total daily and along with vitamin A and D, cod liver oil. Social History: No smoking. Occasional alcohol use and caffeine use. No IV drug use. Review of Systems: She denies any recent fevers, chills, nausea, vomiting, myalgias, arthralgias, headache, weight barnett e, rash, psychiatric complaints, gastrointestinal or genitourinary issues. Physical Examination: Vital Signs: Blood pressure 134/63, pulse 69, respiratory rate 16, temperature 97.6. Oxygen saturat ion 98% room air. Weight 155 pounds. Height 5 feet 9 inches. General: Ms. Garrett is resting in bed. She is in no acute distress, having an EEG done. HEENT: She is normocephalic except for a bruise and small cut over the right eye, bruise of the righ t forehead and right arm. Neurologic: No cranial nerve deficits on 2 through 12. Motor examination, 5/5 strength proximally a nd distally. Sensory exam intact to light touch, pinprick, temperature in arms and legs. Coordinati on intact in upper and lower extremities. Reflexes 2+ upper and lower extremities. The patient has had an EEG done, but gait shows good stance, stride, and arm swing from our ambulation. Laboratory Studies: Complete blood count with differential essentially unremarkable. Coagulation pa rasheeda unremarkable. Chemistries show slightly low sodium 135, potassium 5.0, chloride 101, carbon diox corine 29, BUN 14, creatinine 0.86, glucose ranged from 84 to 124, calcium 8.0, ALT 13, AST 18, alkaline phosphatase 39. Urinalysis unremarkable. Electrocardiogram shows normal sinus rhythm with sinus ar rhythmia. Assessment: Ms. Garrett is an 83-year-old patient with possible neurologic syncope. She reports a his tory of vasovagal syncope. Brain MRI shows meningioma and she has as EEG with pending results. Plan: 1.She was put on Keppra 250 mg twice daily that should continue. 2.Once the patient is discharged, follow up in Dr. De Paz's clinic in 1 month, may consider ambula tory EEG monitoring if the EEG is unremarkable. 3.Okay to continue with all other comorbid condition medications as indicated and may be discharged home today. JIAN/SAUL Voice ID: [id number] Report ID: [id number]
[2019-01-26] MEDS: ACETAMINOPHEN 325 MG TABLET PO PRN (05:40)
[2019-01-26] MEDS: NA CHLORIDE 0.9% 1,000 ML IV SCH ×2 (05:40→09:00)
[2019-01-26] MEDS: LEVOTHYROXINE SOD 0.05 MG TABLET PO SCH (05:40)
[2019-01-26 06:45] LABS: Absolute Lymphocytes (CBC) 1.3 K/uL (0.7-4.9); Absolute Neutrophil 3.6 K/uL (1.8-8.0); Eosinophils % 5.7 % (0-4.4); Hematocrit 33.7 % (36.0-45.0); Lymphocytes % 20.7 % (15.3-44.8); MPV 7.2 fL (7.6-11.3); Monocytes % 15.9 % (3.3-12.3); RBC Red Blood Cell Count 3.46 M/uL (3.86-4.86)
[2019-01-26 07:04] LABS: Albumin 2.8 g/dL (3.4-5.0); Bilirubin Total 0.5 mg/dL (0.2-1.0); Protein, Total 5.1 g/dL (6.4-8.2)
[2019-01-26] MEDS: INSULIN -REGULAR HUMAN 50 UNIT/0.5 ML ML SQ SCH ×2 (07:30→11:30)
[2019-01-26] MEDS: ESCITALOPRAM 20 MG TAB PO SCH (08:27)
[2019-01-26] MEDS: METOPROLOL XL 25 MG TAB PO SCH (08:28)
[2019-01-26] MEDS: levETIRAcetam 500 MG TAB PO SCH (08:28)
[2019-01-26] MEDS: NICARDIPINE HCL PO SCH (08:30)
--- NOTE | 2019-01-26 16:53 | P.DS ---
Admission Date: 01/24/19 Discharge Date: 01/26/19 Disposition: ROUTINE DISCHARGE Discharge Condition: GOOD Reason for Admission: Syncope Consultations: Neurology - Problems (1) Benign meningioma of brain Status: Acute (2) Syncope and collapse Status: Acute (3) Hypothyroidism Status: Chronic Qualifiers: Hypothyroidism type: acquired Qualified Code(s): E03.9 - Hypothyroidism, unspecified (4) HTN (hypertension) Status: Chronic Qualifiers: Hypertension type: essential hypertension Qualified Code(s): I10 - Essential (primary) hypertension Brief History of Present Illness: Patient is an 83-year-old female who came to the hospital after a syncopal event. Patient was going to the bathroom when she fell in collapse. She apparently hit her head on the floor. She has a small laceration of the right eye. She was admitted to the hospital for further workup. Hospital Course: Overall during the hospital stay patient main stable Patient initially admitted to the hospital after having a syncopal episode at home. Patient had extensive workup done here in the hospital including lab work and imaging studies. Initial head CT in the ER was negative. Patient had brain MRI done which was concerning for any 11 x 4 mm mass in the sellar region. MRI with contrast was done which confirmed the mass to be most likely meningioma. Neurology was consulted at that time recommended that patient have an EEG done here in the hospital as her syncopal episode quit quite frankly be seizure activity related to her meningioma. Patient was also started on Keppra 250 mg b.i.d. while here in the hospital. Patient did markedly well while here in the hospital and had no further syncopal or seizure like activity here in the hospital. Patient at that time was discharged home per neurology recommendations and was asked to follow up with PCP and neurology in about 1 month post discharge. Patient was asked to apply ice to the affected area on the right face and was asked to keep an eye out for any further seizure-like activity. Patient demonstrated understanding and thus was discharged home under stable condition. Vital Signs/Physical Exam: Temp Pulse Resp BP Pulse Ox 97.9 F 65 18 148/69 H 98 01/26/19 12:00 01/26/19 12:00 01/26/19 12:00 01/26/19 12:00 01/26/19 12:00 General: Alert, In no apparent distress HEENT: Atraumatic, PERRLA, EOMI Neck: Supple, JVD not distended Respiratory: Clear to auscultation bilaterally, Normal air movement Cardiovascular: Regular rate/rhythm, Normal S1 S2 Gastrointestinal: Normal bowel sounds, No tenderness Musculoskeletal: No tenderness Integumentary: No rashes Neurological: Normal speech, Normal tone, Normal affect Lymphatics: No axilla or inguinal lymphadenopathy Laboratory Data at Discharge: WBC 6.4 K/uL (4.3-10.9) D 01/26/19 06:02 Hgb 11.6 g/dL (12.0-15.0) L 01/26/19 06:02 Hct 33.7 % (36.0-45.0) L 01/26/19 06:02 Plt Count 262 K/uL (152-406) 01/26/19 06:02 PT 10.6 SECONDS (9.5-12.5) 01/24/19 15:00 INR 0.89 01/24/19 15:00 APTT 19.5 SECONDS (24.3-36.9) L 01/24/19 15:00 Sodium 136 mmol/L (136-145) 01/26/19 06:02 Potassium 4.0 mmol/L (3.5-5.1) 01/26/19 06:02 BUN 13 mg/dL (7-18) 01/26/19 06:02 Creatinine 0.80 mg/dL (0.55-1.3) 01/26/19 06:02 Glucose 75 mg/dL (74-106) 01/26/19 06:02 Phosphorus 4.3 mg/dL (2.5-4.9) 01/25/19 05:20 Magnesium 2.3 mg/dL (1.8-2.4) 01/25/19 05:20 Total Bilirubin 0.5 mg/dL (0.2-1.0) 01/26/19 06:02 AST 10 U/L (15-37) L 01/26/19 06:02 ALT 16 U/L (12-78) 01/26/19 06:02 Alkaline Phosphatase 34 U/L (45-117) L 01/26/19 06:02 Home Medications: Fish Oil/Dha/Epa [Fish Oil 1,200 mg Fish Oil] 1 each PO DAILY 08/14/15 Metoprolol Succinate [Toprol Xl*] 37.5 mg PO BID 08/14/15 Trazodone [Desyrel*] 100 mg PO BEDTIME 08/14/15 Began Benicar 20 mg PO DAILY 01/24/19 Biotin 5,000 mcg PO DAILY 01/24/19 Celecoxib 1 tab PO DAILY 01/24/19 Escitalopram [Lexapro*] 10 mg PO DAILY 01/24/19 Levothyroxine [Synthroid*] 1 tab PO [id number] 01/24/19 Magnesium [Magnesium Gluconate] 400 mg PO DAILY 01/24/19 Nicardipine HCl [Cardene] 1 tab PO BID 01/24/19 Turmeric/Turmeric Root Extract [Turmeric 500 mg Capsule] 4,000 mg PO DAILY 01/24 Vit A & D3 in Cod Liver Oil [Cod Liver Oil Softgel] 1 tab PO DAILY 01/24/19 levETIRAcetam [Keppra*] 250 mg PO BID #60 tab 01/26/19 New Medications: levETIRAcetam [Keppra*] 250 mg PO BID #60 tab Patient Discharge Instructions: Please f.u with Neurology in 1 to 2 week post discharge. New medication. Keppra 250 mg BID Diet: Regular Activity: Ad bria Followup: Nikos De Paz MD [ASSOCIATE-ACTIVE - CAN ADMIT] - 1 Week
--- NOTE | 2019-01-26 17:01 | EEG ---
CHART: [id number] TEST ID#: [id number] DATE OF STUDY: 01/25/19 THE EEG WAS RECORDED PORTABLE IN THE PATIENTS ROOM ON A 17 CHANNEL MACHINE. ELECTRODES WERE APPLIED IN THE USUAL MANNER USING THE INTERNATIONAL 10-20 SYSTEM. THE WAKING BACKGROUND RHYTHM IN THIS RECORD CONSISTS OF WELL DEVELOPED AND WELL ORGANIZED WAVES OF 8.5-9 HZ., MAXIMAL IN THE POSTERIOR HEAD REGIONS WHICH ATTENUATE NORMALLY WITH EYE OPENING. LOW-VOLTAGE 18-22 HZ ACTIVITY IS EXPRESSED IN THE FRONTAL REGIONS. THERE ARE NO FOCAL OR LATERALIZING FEATURES. NO EPILEPTIFORM ACTIVITY APPEARS. SLEEP DID NOT OCCUR. HYPERVENTILATION WAS NOT PERFORMED. PHOTIC STIMULATION PRODUCED POOR DRIVING BILATERALLY. IMPRESSION: NORMAL EEG FOR THE AGE OF THE PATIENT IN [place].
== END 2019-01-26 13:59 | disposition home or self-care (01) ==
LOC: ER 14:12 → ERHOLD 16:54 → 2ND 20:37
PROVIDERS: ADMIT Family Medicine; ATTEND Hospitalist
DX: R55 Syncope and collapse (principal); D32.0 Benign neoplasm of cerebral meninges; E03.9 Hypothyroidism, unspecified; I10 Essential (primary) hypertension
CPT/HCPCS: 95816; 93005; 93306; 85025 ×3; 80048; 36415 ×2; 83735; 84100; 85610; 82962 ×8; 85730; 84443; 81003; 84484; 80053 ×2; 70450; 70486; 76377; 70496; 70498; 70551; 97116; 97163; 97165; 96360; 99285; Q9967; J7030 ×4; G0378 ×2

== ENCOUNTER → 2019-07-18 | Day surgery (SDC) | payer OTHER | LOC: RAD 08:28 → EDSTATUS 10:00 | PROVIDERS: ATTEND Psychiatry & Neurology Neurology | DX: G60.9 Hereditary and idiopathic neuropathy, unspecified (principal); G72.9 Myopathy, unspecified ==

== ENCOUNTER 2020-04-27 08:54 | Inpatient (IN) | payer OTHER ==
--- OUTSIDE RECORDS SUMMARY | 2020-04-27 08:58 | XMS REPORT | Continuity of Care Document ---
:1935 Author Organization [facility] t Address [address] [place] [address] Care Team Providers Name Role Phone Asked, Given Primary Care Physician Unavailable Payers Payer Name Policy Type Policy Number Effective Date Expiration Date S ource Problems Condition Condition Condition Status Onset Resolution Last Treating Co mments Source Name Details Category Date Date Treatment Clinician Date Osteoarthr Osteoarthr Disease Active [place] [facility] of [facility] of 03-18 [facility] left hip left hip 00:00: st 00 Allergies, Adverse Reactions, Alerts Allergy Allergy Status Severity Reaction(s) Onset Inactive Treating Comm ents Source Name Type Date Date Clinician Ciproflo Propensi Active Rash [place] xacin ty to 03-18 [facility] adverse 00:00: st reaction 00 s to drug Levoflox Propensi Active Rash [place] acin ty to 03-18 [facility] adverse 00:00: st reaction 00 s to drug Ciproflo Propensi Active [place] xacin ty to 03-14 [facility] adverse 00:00: st reaction 00 s to drug Levoflox Propensi Active [place] acin ty to 03-14 [facility] adverse 00:00: st reaction 00 s to drug levoflox DA Active [facility] acin 03-07 [place] [facility]: [facility] Social History Social Habit Start Date Stop Date Quantity Comments Source Sex Assigned At [facility] ethodist Alcohol intake 2017-01-16 2017-01-16 Current drinker [place] [facility] 00:00:00 00:00:00 of alcohol (finding) Smoking Status Start Date Stop Date Source Never smoker Madhu long Medications Ordered Filled Start Stop Current Ordering Indication Dosage Frequency Signature Comments Components Source Medication Medication Date Date Medication? Clinician (SIG) Name Name metoprolol Yes 25mg Q.5D Take 25 mg [place] tartrate 3-31 by mouth 2 Metho di (LOPRESSOR) 10:16: (two) st 25 MG 29 times a tablet day. celecoxib Yes 200mg Q.5D Take 200 [facility] ston (CeleBREX) 3-31 mg by [facility] 200 MG 10:16: mouth 2 st capsule 29 (two) times a day. escitalopra Yes 10mg QD Take 10 mg [facility] m (LEXAPRO) 3-31 by mouth Meth perez 10 MG 10:16: daily. st tablet 29 traZODone Yes 100mg QD Take 100 [place] ston (DESYREL) 3-31 mg by [facility] 100 MG 10:16: mouth st tablet 29 nightly. lidocaine Yes 1{patch Q24H Place 1 [place] (LIDODERM) 3-31 } patch on Metho di 5 % 10:16: the skin st 29 daily. Remove & Discard patch within 12 hours or as directed by estradiol Yes 2g QD Insert 2 g [place] (ESTRACE) 3-31 into the Method i 0.01 % (0.1 10:16: vagina st mg/gram) 29 daily. vaginal cream vitamin A & 2017 Yes Apply Jermaine on D ointment 3-31 topically Meth perez 10:16: as needed st 29 for dry skin. multivitami Yes 1{tbl} QD Take 1 [place] n 3-31 tablet by [facility] (THERAGRAN) 10:16: mouth st tablet 29 daily. omega-3 Yes 1g Q.5D Take 1 g [place] acid ethyl 3-31 by mouth 2 Met hodi esters 10:16: (two) st (LOVAZA) 1 29 times a gram day. capsule calcium Yes 1{tbl} QD Take 1 [place] carbonate-v 3-31 tablet by Met hodi itamin D3 10:16: mouth st 250-125 29 daily. mg-unit tablet metoprolol Yes 25mg Q.5D Take 25 mg [place] tartrate 6-01 by mouth 2 Metho di (LOPRESSOR) 12:11: (two) st 25 MG 15 times a tablet day. escitalopra Yes 10mg QD Take 10 mg [facility] m (LEXAPRO) 03-19 by mouth Meth perez 10 MG 12:11: daily. st tablet 15 traZODone Yes 100mg QD Take 100 [place] st[facility] (DESYREL) 6-01 mg by [facility] 100 MG 12:11: mouth st tablet 15 nightly. lidocaine Yes 1{patch Q24H Place 1 [place] (LIDODERM) 6 } patch on Metho di 5 % 12:11: the skin st 15 daily. Remove & Discard patch within 12 hours or as directed by estradiol Yes 2g QD Insert 2 g [place] (ESTRACE) 03-19 into the [facility] 0.01 % (0.1 12:11: vagina st mg/gram) 15 daily. vaginal cream nitrofurant Yes 50mg QD Take 50 mg [place] oin 6-01 by mouth [facility] (MACRODANTI 12:11: daily. st N) 50 MG 15 capsule celecoxib Yes [place] (CeleBREX) 5-18 [facility] 200 MG 00:00: st capsule 00 HYDROcodone Yes [place] -acetaminop 5-18 [facility] hen (NORCO 00:00: st 10-325) 00 10-325 mg per tablet Procedures This patient has no known procedures. Plan of Care Planned Activity Planned Date Details Comments Source Future Scheduled 2020-05-19 INFLUENZA VACCINE [place] [facility] 00:00:00 [code = INFLUENZA VACCINE] Future Scheduled 2001 65+ PNEUMOCOCCAL [facility] 00:00:00 VACCINE (1 of 2 - PCV13) [code = 65+ PNEUMOCOCCAL VACCINE (1 of 2 - PCV13)] Future Scheduled 1986 SHINGLES VACCINES (#1) [place] [facility] 00:00:00 [code = SHINGLES VACCINES (#1)] Results Test Description Test Time Test Comments Results Result [facility] e Comments - MRI L-SPINE W/O 2019-12-05 Patient Name: CONT 13:16:00 ANDI SMILEY Unit No: [id number] EXAMS: CPT CODE: [id number] MRI L-SPINE W/O CONT [id number] TECHNIQUE: Multiplanar, multisequence MRI examination performed of the lumbar spine without intravenous contrast material. COMPARISON: None available. FINDINGS: Postoperative changes of L2-L5 posterior instrumented fusion is demonstrated. Alignment: Leftward curvature of the lumbar spine is centered at L3-L4. There is also rightward curvature of the lower thoracic spine. Grade 1 retrolisthesis of L1-L2 as well as grade 1 spondylolisthesis of L4-L5 and L5-S1. Bone Lesion: Marked degenerative marrow signal is seen at L1-L2. Fracture: None present. Paraspinal Soft Tissues: A left renal cystic lesion is partially visualized. Conus Medullaris: Termination at L1 level. Morphology is normal. L1/2: Grade 1 retrolisthesis. Severe disc degeneration with endplate marrow changes at large disc bulge. Moderate central canal stenosis is present as well as severe right lateral recess stenosis. Moderate left, severe right foraminal stenosis. L2/3: Discectomy and interbody graft. No significant foraminal or central canal stenosis. L3/4: Discectomy with interbody graft. The central canal is decompressed. No significant foraminal stenosis. L4/5: Grade 1 spondylolisthesis. The central canal is decompressed. Mild to moderate right foraminal stenosis. No significant left foraminal stenosis. L5/S1: Grade 1 spondylolisthesis. Broad disc bulge is present. Moderate central canal stenosis is noted as well as right lateral recess stenosis. There is mild to moderate left, mild right foraminal stenosis. IMPRESSION: Postoperative lumbar spine with multilevel spondylosis, greatest at L1-L2, where there is moderate central canal stenosis and marked disc degeneration. at 1316 Reported and signed by: Bartolo Brumfield M.D. [facility] NAME: ANDI SMILEY [address] [facility] PHYS: Lobo Villalba MD : 1935 AGE: 84 SEX: F [place], [place] [address] LOC: Y.MRI PHONE #: [phone] EXAM DATE: 12/02/2019 STATUS: DEP CLI FAX #: [phone] RAD #: D/C DT PAGE 1 Signed Report (CONTINUED) Patient Name: ANDI SMILEY Unit No: [id number] EXAMS: CPT CODE: [id number] MRI L-SPINE W/O CONT [id number] <Continued> CC: Richi Sanchez M.D. Technologist: AMRIK FORD, MRI Transcribed D/ (1316) [facility] ANDI SMILEY [address] PHYS: Lobo Villalba MD : 1935 AGE: 84 SEX: F [place] [address] LOC: Y.MRI PHONE #: [phone] EXAM DATE: 12/02/2019 STATUS: DEP CLI FAX #: [phone] RAD #: D/C DT PAGE 2 Signed Report Patient Name: ANDI SMILEY Unit No: [id number] EXAMS: CPT CODE: [id number] MRI L-SPINE W/O CONT [id number] <Continued> Orig Print D/T: S: 12/05/2019 (1320) [facility] NAME: ANDI SMILEY [address] PHYS: Lobo Villalba MD : 1935 AGE: 84 SEX: F [place] [address] LOC: Y.MRI PHONE #: [phone] EXAM DATE: 12/02/2019 STATUS: DEP CLI FAX #: [phone] RAD #: D/C DT PAGE 3 Signed Report
[2020-04-27 09:51] LABS: Absolute Lymphocytes (CBC) 1.7 K/uL (0.7-4.9); Basophils % 1.1 % (0-1.3); Hematocrit 41.5 % (36.0-45.0); Lymphocytes % 22.4 % (15.3-44.8); RBC Red Blood Cell Count 4.32 M/uL (3.86-4.86)
[2020-04-27 09:56] LABS: Protime INR 0.9
[2020-04-27 10:11] LABS: BUN Blood Urea Nitrogen 15 mg/dL (7-18); Bicarbonate 27 mmol/L (21-32); Glucose Level 106 mg/dL (74-106); Magnesium 2.2 mg/dL (1.8-2.4); NT PRO-BNP 5187 pg/mL (<450); Potassium 4.1 mmol/L (3.5-5.1); Sodium Level 134 mmol/L (136-145); Troponin (Emerg Dept Use Only) < 0.02 ng/mL (0.0-0.045)
--- NOTE | 2020-04-27 10:16 | RAD REPORT ---
EXAM DESCRIPTION: RAD - Chest Single View - 04/27/2020 9:59 am CLINICAL HISTORY: feeling poorly Chest pain. COMPARISON: Chest Pa And Lat (2 Views) dated 09/23/2016; CHEST PA AND LAT 2 VIEW dated 05/27/2013 FINDINGS: Portable technique limits examination quality. The lungs are grossly clear. The heart is normal in size. No displaced fractures. IMPRESSION: No acute intrathoracic process suspected.
--- NOTE | 2020-04-27 11:41 | ER ---
Nurse's Notes [facility] Name: Scarlett Garrett Age: 84 yrs Sex: Female : 1935 Arrival Date: 04/27/2020 Time: 08:57 Bed 18 Private MD: Diagnosis: Weakness;Atrial fibrillation and flutter;Dizziness and giddiness Presentation: 04/27 08:57 Chief complaint: EMS states: generalized weakness, dizziness, headache, tachycardia x 1 sv week. Sore throat and nausea x 2 days. BP 108/83 HR-68 RR-16 96%RA. Coronavirus screen: Surgical mask placed on patient. Patient moved to private room, placed in contact and droplet isolation with eye protection until further assessment. Patient denies a cough. Patient denies shortness of breath or difficulty breathing. Patient denies measured and/or subjective temperature greater than 100.4F prior to today's visit. Patient denies travel on a cruise ship or to a country the [facility] currently lists as an affected area. Patient denies contact with known and/or suspected case of COVID-19. Ebola Screen: No symptoms or risks identified at this time. Risk Assessment: Do you want to hurt yourself or someone else? Patient reports no desire to harm self or others. Onset of symptoms was April 20, 2020. 08:57 Method Of Arrival: EMS: [facility] sv 08:57 Acuity: VANESA 3 sv 09:15 Initial Sepsis Screen: Does the patient meet any 2 criteria? No. Patient's initial sv sepsis screen is negative. Does the patient have a suspected source of infection? No. Patient's initial sepsis screen is negative. Triage Assessment: 09:15 General: Appears in no apparent distress. uncomfortable, well developed, Behavior is sv calm, cooperative, appropriate for age. Pain: Complains of pain in face and scalp. Neuro: Level of Consciousness is awake, alert, obeys commands, Oriented to person, place, time, situation, Moves all extremities. Full function Speech is normal, Reports dizziness, headache weakness. Cardiovascular: Reports intermittent fast heart rate. Respiratory: Respiratory effort is even, unlabored, Respiratory pattern is regular, symmetrical. GI: Reports nausea. Derm: Skin is normal. Historical: - Allergies: 08:59 Cipro; sv 08:59 Levaquin; sv - PMHx: 08:59 Arthritis; Depression; severe tricuspid valve regurgitation; sv - PSHx: 08:59 hip replacement; back; sv - Immunization history:: Adult Immunizations up to date. - Social history:: Smoking status: Patient denies any tobacco usage or history of. Screenin:25 Abuse screen: Denies threats or abuse. Denies injuries from another. Nutritional sv screening: No deficits noted. Tuberculosis screening: No symptoms or risk factors identified. Fall Risk None identified. Assessment: 10:00 General: Appears in no apparent distress. comfortable, Behavior is calm, cooperative, ca1 appropriate for age, Reports feeling ill for. Pain: Denies pain. Neuro: Level of Consciousness is awake, alert, obeys commands, Oriented to person, place, time, situation. Neuro: Reports dizziness. Cardiovascular: Heart tones S1 S2 present Capillary refill < 3 seconds Patient's skin is warm and dry. Rhythm is atrial fibrillation. Respiratory: Airway is patent Respiratory effort is even, unlabored, Respiratory pattern is regular, symmetrical, Breath sounds are clear bilaterally. GI: Abdomen is flat, non-distended, Bowel sounds present X 4 quads. Abd is soft and non tender X 4 quads. Reports nausea. : No signs and/or symptoms were reported regarding the genitourinary system. EENT: No signs and/or symptoms were reported regarding the EENT system. Derm: Skin is intact, is healthy with good turgor, Skin is pink, warm \T\ dry. Musculoskeletal: Circulation, motion, and sensation intact. Capillary refill < 3 seconds. 11:00 Reassessment: Patient appears in no apparent distress at this time. Patient and/or ca1 family updated on plan of care and expected duration. Pain level reassessed. Patient is alert, oriented x 3, equal unlabored respirations, skin warm/dry/pink. 12:00 Reassessment: Patient appears in no apparent distress at this time. Patient and/or ca1 family updated on plan of care and expected duration. Pain level reassessed. Patient is alert, oriented x 3, equal unlabored respirations, skin warm/dry/pink. 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 ca1 13:00 Reassessment: Patient appears in no apparent distress at this time. Patient and/or ca1 family updated on plan of care and expected duration. Pain level reassessed. Patient is alert, oriented x 3, equal unlabored respirations, skin warm/dry/pink. 14:00 Reassessment: Patient appears in no apparent distress at this time. Patient and/or ca1 family updated on plan of care and expected duration. Pain level reassessed. Patient is alert, oriented x 3, equal unlabored respirations, skin warm/dry/pink. 15:00 Reassessment: Patient appears in no apparent distress at this time. Patient and/or ca1 family updated on plan of care and expected duration. Pain level reassessed. Patient is alert, oriented x 3, equal unlabored respirations, skin warm/dry/pink. 16:00 Reassessment: Patient appears in no apparent distress at this time. Patient and/or ca1 family updated on plan of care and expected duration. Pain level reassessed. Patient is alert, oriented x 3, equal unlabored respirations, skin warm/dry/pink. 17:00 Reassessment: Patient appears in no apparent distress at this time. Patient and/or ca1 family updated on plan of care and expected duration. Pain level reassessed. Patient is alert, oriented x 3, equal unlabored respirations, skin warm/dry/pink. 04/28 00:12 Reassessment: Patient appears in no apparent distress at this time. Patient and/or ls4 family updated on plan of care and expected duration. Pain level reassessed. Patient is alert, oriented x 3, equal unlabored respirations, skin warm/dry/pink. [facility] Vital Signs: 04/27 09:15 Temp 96.6(O); sv 09:15 BP 109 / 67; Pulse 85; Resp 20 S; Pulse Ox 99% on R/A; ca1 10:00 BP 95 / 74; Pulse 102; Resp 20 S; Pulse Ox 96% on R/A; ca1 11:00 BP 96 / 65; Pulse 120; Resp 18 S; Pulse Ox 99% on R/A; ca1 11:32 Weight 72.57 kg (R); ca1 12:00 BP 108 / 90; Pulse 106; Resp 17 S; Pulse Ox 98% on R/A; ca1 13:00 BP 95 / 67; Pulse 109; Resp 18 S; Pulse Ox 98% on R/A; ca1 14:00 BP 105 / 65; Pulse 98; Resp 18 S; Pulse Ox 95% on R/A; ca1 15:00 BP 101 / 72; Pulse 108; Resp 18 S; Pulse Ox 97% on R/A; ca1 16:00 BP 109 / 60; Pulse 111; Resp 18 S; Pulse Ox 98% on R/A; ca1 17:00 BP 106 / 80; Pulse 90; Resp 18 S; Temp 97.6(TE); Pulse Ox 98% on R/A; ca1 22:17 BP 107 / 83; Pulse 96; Resp 18; Temp 97.8(O); Pulse Ox 99% on R/A; Pain 0/10; ls4 04/28 08:22 BP 124 / 81; Pulse 64; Resp 16; Temp 97.6(TE); Pulse Ox 99% on R/A; mh5 ED Course: 04/27 08:57 Patient arrived in ED. sv 08:57 Olive Can, RN is Primary Nurse. sv 08:58 Triage completed. sv 08:59 Arm band placed on. sv 09:00 Anton Cha MD is Attending Physician. kdr 09:25 Patient has correct armband on for positive identification. Bed in low position. Call sv light in reach. youth nutritional monitor on. Pulse ox on. NIBP on. Door closed. Head of bed elevated. 09:30 Inserted saline lock: 20 gauge in right forearm, using aseptic technique. Blood sv collected. 09:59 XRAY Chest (1 view) In Process Unspecified. EDMS 10:00 Report given to Cristel NANCE. sv 11:40 Adam Ocampo DO is Hospitalizing Provider. kdr 12:48 No provider procedures requiring assistance completed. Patient admitted, IV remains in ca1 place. 15:33 Inserted saline lock: 22 gauge in left antecubital area, using aseptic technique. ca1 19:15 Primary Nurse role handed off by Olive Can RN sv 22:17 Nahomy Díaz, LEE ANN is Primary Nurse. ls4 Administered Medications: 12:12 Drug: Lovenox 1 mg/kg Route: Sub-Q; Site: left lower abdomen; ca1 13:00 Follow up: Response: No adverse reaction ca1 12:13 Drug: Zofran (Ondansetron) 4 mg Route: IVP; Site: right forearm; ca1 13:00 Follow up: Response: No adverse reaction; Nausea is decreased ca1 12:13 Drug: Tylenol 650 mg Route: PO; ca1 15:07 Follow up: Response: No adverse reaction; Pain is decreased ca1 Outcome: 11:40 Decision to Hospitalize by Provider. kdr 17:22 Admitted to ER Hold. Please see [facility] for further documentation. ca1 17:22 Condition: stable 17:22 Instructed on the need for admit. 04/29 17:20 Patient left the ED. rb1 Signatures: Dispatcher [employer] EDOlive Mcclure RN RN sv Anton Cha MD MD kdr Barber, Rebecca RN RN rb1 Shelli Martinez [facility] Nahomy Díaz RN RN ls4 Cristel Dejesus RN RN ca1 Corrections: (The following items were deleted from the chart) 04/27 10:32 08:57 Chief complaint: EMS states: generalized weakness, dizziness, tachycardia x 1 sv week. Sore throat and nausea x 2 days. BP 108/83 HR-68 RR-16 96%RA. sv 17:24 17:00 BP 106 / 80; Pulse 90bpm; Resp 18bpm; Spontaneous; Pulse Ox 98% RA; ca1 ca1
--- NOTE | 2020-04-27 11:41 | EDPHYS ---
Physician Documentation [facility] Name: Scarlett Garrett Age: 84 yrs Sex: Female : 1935 Arrival Date: 04/27/2020 Time: 08:57 Bed 18 Private MD: ED Physician Anton Cha HPI: 04/27 11:41 This 84 yrs old Female presents to ER via EMS with complaints of General kdr Weakness, Nausea, Dizziness, Sore Throat. 11:41 The patient has been feeling weak, dizzy and light headed for about a week. States she kdr has prior cardiac problems but denies a-fib. She has also felt her heart racing from time to time and was told by her facilities and grounds director in [place] to take an extra b-alanis from time to time if needed. She has no other s/s suggesting COVID at this time. Onset: The symptoms/episode began/occurred gradually, 1 week(s) ago. Severity of symptoms: At their worst the symptoms were mild in the emergency department the symptoms have improved mildly. The patient has not experienced similar symptoms in the past. The patient has been recently seen by a physician: Teleconference with her facilities and grounds director yesterday. Historical: - Allergies: 08:59 Cipro; sv 08:59 Levaquin; sv - PMHx: 08:59 Arthritis; Depression; severe tricuspid valve regurgitation; sv - PSHx: 08:59 hip replacement; back; sv - Immunization history:: Adult Immunizations up to date. - Social history:: Smoking status: Patient denies any tobacco usage or history of. ROS: 11:41 Constitutional: Negative for fever, chills, and weight loss, Eyes: Negative for injury, kdr pain, redness, and discharge, ENT: Negative for injury, pain, and discharge, Neck: Negative for injury, pain, and swelling, Respiratory: Negative for shortness of breath, cough, wheezing, and pleuritic chest pain, Abdomen/GI: Negative for abdominal pain, nausea, vomiting, diarrhea, and constipation, Back: Negative for injury and pain, : Negative for injury, bleeding, discharge, and swelling, MS/Extremity: Negative for injury and deformity, Skin: Negative for injury, rash, and discoloration, Psych: Negative for depression, anxiety, suicide ideation, homicidal ideation, and hallucinations, Allergy/Immunology: Negative for hives, rash, and allergies, Endocrine: Negative for neck swelling, polydipsia, polyuria, polyphagia, and marked weight changes, Hematologic/Lymphatic: Negative for swollen nodes, abnormal bleeding, and unusual bruising. 11:41 Cardiovascular: Positive for palpitations, Negative for chest pain, edema, orthopnea, paroxysmal nocturnal dyspnea. Exam: 10:39 ECG was reviewed by the Attending Physician. kdr 11:41 Constitutional: This is a well developed, well nourished patient who is awake, alert, kdr and in no acute distress. Head/Face: Normocephalic, atraumatic. Eyes: Pupils equal round and reactive to light, extra-ocular motions intact. Lids and lashes normal. Conjunctiva and sclera are non-icteric and not injected. Cornea within normal limits. Periorbital areas with no swelling, redness, or edema. Neck: Trachea midline, no thyromegaly or masses palpated, and no cervical lymphadenopathy. Supple, full range of motion without nuchal rigidity, or vertebral point tenderness. No Meningismus. Chest/axilla: Normal chest wall appearance and motion. Nontender with no deformity. No lesions are appreciated. Respiratory: Lungs have equal breath sounds bilaterally, clear to auscultation and percussion. No rales, rhonchi or wheezes noted. No increased work of breathing, no retractions or nasal flaring. Abdomen/GI: Soft, non-tender, with normal bowel sounds. No distension or tympany. No guarding or rebound. No evidence of tenderness throughout. Back: No spinal tenderness. No costovertebral tenderness. Full range of motion. Skin: Warm, dry with normal turgor. Normal color with no rashes, no lesions, and no evidence of cellulitis. MS/ Extremity: Pulses equal, no cyanosis. Neurovascular intact. Full, normal range of motion. Neuro: Awake and alert, GCS 15, oriented to person, place, time, and situation. Cranial nerves II-XII grossly intact. Motor strength 5/5 in all extremities. Sensory grossly intact. Cerebellar exam normal. Normal gait. Psych: Awake, alert, with orientation to person, place and time. Behavior, mood, and affect are within normal limits. 11:41 Cardiovascular: Rate: tachycardic, Rhythm: irregularly irregular, Pulses: no pulse deficits are appreciated, Heart sounds: normal, Edema: is not appreciated. Vital Signs: 09:15 Temp 96.6(O); sv 09:15 BP 109 / 67; Pulse 85; Resp 20 S; Pulse Ox 99% on R/A; ca1 10:00 BP 95 / 74; Pulse 102; Resp 20 S; Pulse Ox 96% on R/A; ca1 11:00 BP 96 / 65; Pulse 120; Resp 18 S; Pulse Ox 99% on R/A; ca1 11:32 Weight 72.57 kg (R); ca1 12:00 BP 108 / 90; Pulse 106; Resp 17 S; Pulse Ox 98% on R/A; ca1 13:00 BP 95 / 67; Pulse 109; Resp 18 S; Pulse Ox 98% on R/A; ca1 14:00 BP 105 / 65; Pulse 98; Resp 18 S; Pulse Ox 95% on R/A; ca1 15:00 BP 101 / 72; Pulse 108; Resp 18 S; Pulse Ox 97% on R/A; ca1 16:00 BP 109 / 60; Pulse 111; Resp 18 S; Pulse Ox 98% on R/A; ca1 17:00 BP 106 / 80; Pulse 90; Resp 18 S; Temp 97.6(TE); Pulse Ox 98% on R/A; ca1 22:17 BP 107 / 83; Pulse 96; Resp 18; Temp 97.8(O); Pulse Ox 99% on R/A; Pain 0/10; ls4 04/28 08:22 BP 124 / 81; Pulse 64; Resp 16; Temp 97.6(TE); Pulse Ox 99% on R/A; mh5 MDM: 04/27 11:40 Patient medically screened. kdr 11:41 Data reviewed: vital signs, nurses notes, lab test result(s), radiologic studies. kdr Counseling: I had a detailed discussion with the patient and/or guardian regarding: the historical points, exam findings, and any diagnostic results supporting the discharge/admit diagnosis, lab results, radiology results, the need for further work-up and treatment in the hospital. 04/27 09:23 Order name: Basic Metabolic Panel kdr 04/27 09:23 Order name: CBC with Diff; Complete Time: 12:25 kdr 04/27 09:23 Order name: Magnesium; Complete Time: 10:14 kdr 04/27 09:23 Order name: NT PRO-BNP; Complete Time: 10:14 kdr 04/27 09:23 Order name: PT-INR; Complete Time: 10:14 kdr 04/27 09:23 Order name: Troponin (emerg Dept Use Only); Complete Time: 10:14 kdr 04/27 09:23 Order name: XRAY Chest (1 view); Complete Time: 11:15 kdr 04/27 09:24 Order name: Basic Metabolic Panel; Complete Time: 10:14 EDMS 04/27 11:49 Order name: CBC Smear Scan; Complete Time: 12:25 EDMS 04/27 22:37 Order name: T4 Free EDMS 04/27 22:37 Order name: Thyroid Stimulating Hormone EDMS 04/28 05:25 Order name: CBC with Automated Diff EDMS 04/28 06:49 Order name: Comprehensive Metabolic Panel EDMS 04/28 06:49 Order name: Magnesium EDMS 04/27 09:23 Order name: EKG; Complete Time: 09:25 kdr 04/27 09:23 Order name: Cardiac monitoring; Complete Time: 09:57 kdr 04/27 09:23 Order name: EKG - Nurse/Tech; Complete Time: 09:57 kdr 04/27 09:23 Order name: IV Saline Lock; Complete Time: 09:57 kdr 04/27 09:23 Order name: Labs collected and sent; Complete Time: 09:57 kdr 04/27 09:23 Order name: O2 Per Protocol; Complete Time: 09:57 kdr 04/27 09:23 Order name: O2 Sat Monitoring; Complete Time: 09:56 kdr EC:39 Rate is 94 beats/min. Rhythm is irregularly irregular, A fib with No ectopy. QRS [place] kdr is Normal. MO interval is normal. QRS interval is normal. QT interval is normal. Clinical impression: Atrial Fibrillation. Administered Medications: 12:12 Drug: Lovenox 1 mg/kg Route: Sub-Q; Site: left lower abdomen; ca1 13:00 Follow up: Response: No adverse reaction ca1 12:13 Drug: Zofran (Ondansetron) 4 mg Route: IVP; Site: right forearm; ca1 13:00 Follow up: Response: No adverse reaction; Nausea is decreased ca1 12:13 Drug: Tylenol 650 mg Route: PO; ca1 15:07 Follow up: Response: No adverse reaction; Pain is decreased ca1 Disposition: 04/27/20 11:40 Hospitalization ordered by Adam Ocampo for Inpatient Admission. Preliminary diagnosis are Weakness, Atrial fibrillation and flutter, Dizziness and giddiness. - Bed requested for [facility] ER HOLD. - Status is Inpatient Admission. rb1 - Condition is Fair. - Problem is new. - Symptoms are unchanged. Signatures: Dispatcher [employer] EDOlive Mcclure RN LEE ANN Anton Cha MD MD [facility] Tati Kennedy RN RN ss AttemShiraz adkins, HEALTH SCIENCES MANAGER-C HEALTH SCIENCES MANAGER-Cla1 Sena Carnes, RN RN rb1 Handy Wong, RN RN ja1 Cristel Dejesus RN RN ca1 Corrections: (The following items were deleted from the chart) 14:45 11:40 Hospitalization Ordered by Adam Ocampo DO for Inpatient Admission. Preliminary ja1 diagnosis is Weakness; Atrial fibrillation and flutter; Dizziness and giddiness. Bed requested for Telemetry/MedSurg (Inpatient). Status is Inpatient Admission. Condition is Fair. Problem is new. Symptoms are unchanged. kdr 15:23 14:45 04/27/2020 11:40 Hospitalization Ordered by Adam Ocampo DO for Inpatient ss Admission. Preliminary diagnosis is Weakness; Atrial fibrillation and flutter; Dizziness and giddiness. Bed requested for Telemetry/MedSurg (Inpatient). Status is Inpatient Admission. Condition is Fair. Problem is new. Symptoms are unchanged. ja1 04/29 17:20 04/27 15:23 04/27/2020 11:40 Hospitalization Ordered by Adam Ocampo DO for Inpatient rb1 Admission. Preliminary diagnosis is Weakness; Atrial fibrillation and flutter; Dizziness and giddiness. Bed requested for [facility] ER HOLD. Status is Inpatient Admission. Condition is Fair. Problem is new. Symptoms are unchanged. ss
[2020-04-27 11:49] LABS: Blood Morphology Comment NOT SEEN (NOT SEEN); Platelet Estimate ADEQ; Urine White Blood Cell Casts OK
[2020-04-27] MEDS ORDERED: ENOXAPARIN 80 MG/0.8 ML SQ ONE ×2 (12:04→22:45)
[2020-04-27] MEDS ORDERED: ONDANSETRON 4 MG/2 ML VIAL ONE (12:04)
[2020-04-27] MEDS ORDERED: ACETAMINOPHEN 325 MG TABLET ONE (12:04)
--- NOTE | 2020-04-27 13:40 | P.HP ---
Certification for Inpatient Patient admitted to: Observation With expected LOS: <2 Midnights Patient will require the following post-hospital care: None Practitioner: I am a practitioner with admitting privileges, knowledge of patient current condition, hospital course, and medical plan of care. Services: Services provided to patient in accordance with Admission requirements found in Title 42 Section 412.3 of the Code of Federal Regulations <Shiraz Pimentel - Last Filed: 04/27/20 13:34> Patient admitted to: Inpatient With expected LOS: >2 Midnights <Adam Ocampo - Last Filed: 04/27/20 18:38> Patient History Date of Service: 04/27/20 Primary Care Provider: Nai Reason for admission: New onset atrial fibrillation History of Present Illness: 84 old female with medical history of hypertension, hypothyroidism presents the emergency department with complaint of dizziness and near syncope. During her evaluation in the emergency room patient was found to be in atrial fibrillation. Patient without history of atrial fibrillation. ED provider wishes to admit patient for further evaluation and management. When I saw the patient in the emergency department she appeared stable, patient was mildly tachycardic with a rate of approximately 110. Blood pressure was stable. Patient will be admitted with consult to cardiology for further management. Home medications list reviewed: Yes - Past Medical/Surgical History Diabetic: No -: arthritis -: depression -: severe TVR -: Hypertension -: Hypothyroidism -: hip replacement -: back surgery -: Elbow surgery - Family History Father -: Heart disease Sister -: Other (see notes) (Stroke) - Social History Smoking Status: Never smoker Alcohol use: Yes CD- Drugs: No Caffeine use: Yes Place of Residence: Home <Shiraz Pimentel - Last Filed: 04/27/20 13:34> Date of Service: 04/27/20 Primary Care Provider: Nai; Cardiology-Dr. Solano - Past Medical/Surgical History Psychosocial/ Personal History: Patient lives at home <Adam Ocampo - Last Filed: 04/27/20 18:38> Allergies ciprofloxacin [From Cipro] Allergy (Verified 01/24/19 22:01) Unknown levofloxacin [From Levaquin] Allergy (Verified 01/24/19 22:01) Rash Home Medications: Fish Oil/Dha/Epa [Fish Oil 1,200 mg Fish Oil] 1 each PO DAILY 08/14/15 Trazodone [Desyrel*] 100 mg PO BEDTIME 08/14/15 Escitalopram [Lexapro*] 10 mg PO DAILY 01/24/19 Levothyroxine [Synthroid*] 1 tab PO [id number] 01/24/19 Magnesium [Magnesium Gluconate] 400 mg PO DAILY 01/24/19 Turmeric/Turmeric Root Extract [Turmeric 500 mg Capsule] 8,000 mg PO DAILY 01/24/19 vit A and D3 in cod liver oiL [Cod Liver Oil Softgel] 1 tab PO DAILY 01/24/19 Montelukast [Singulair] 10 mg PO DAILY PRN 08/01/19 Ascorbic Acid [Vitamin C*] 2,000 mg PO DAILY 04/27/20 Celecoxib [Celebrex] 200 mg PO DAILY 04/27/20 Escitalopram Oxalate [Lexapro] 10 mg PO DAILY 04/27/20 Levothyroxine [Synthroid] 50 mcg PO DAILY 04/27/20 Metoprolol Tartrate [Lopressor] 37.5 mg PO BID 04/27/20 Olmesartan Medoxomil [Benicar] 20 mg PO DAILY 04/27/20 Review of Systems General: Unremarkable Eyes: Unremarkable ENT: Unremarkable Respiratory: Unremarkable Cardiovascular: Light Headedness, Other (Dizziness, near-syncope) Gastrointestinal: Unremarkable Genitourinary: Unremarkable Musculoskeletal: Unremarkable Integumentary: Unremarkable Neurological: Unremarkable Lymphatics: Unremarkable <Shiraz Pimentel - Last Filed: 04/27/20 13:34> Physical Examination - Physical Exam General: Alert, In no apparent distress, Oriented x3 HEENT: Atraumatic, Normocephalic Neck: Supple Respiratory: Clear to auscultation bilaterally, Normal air movement Cardiovascular: No edema, Normal S1 S2, Irregular heart rate/rhythm Capillary refill: <2 Seconds Gastrointestinal: Normal bowel sounds, Soft and benign Musculoskeletal: No erythema, No tenderness Integumentary: No tenderness/swelling, No erythema, No warmth Neurological: Normal speech, Normal tone, Sensation intact, Normal affect - Studies Laboratory Data (last 24 hrs) 04/27/20 09:30: PT 10.6, INR 0.90 04/27/20 09:30: WBC 7.5, Hgb 14.1, Hct 41.5, Plt Count 300 04/27/20 09:30: Sodium 134 L, Potassium 4.1, BUN 15, Creatinine 0.90, Glucose 106, Magnesium 2.2 <Shiraz Pimentel - Last Filed: 04/27/20 13:34> - Studies Laboratory Data (last 24 hrs) 04/27/20 09:30: PT 10.6, INR 0.90 04/27/20 09:30: WBC 7.5, Hgb 14.1, Hct 41.5, Plt Count 300 04/27/20 09:30: Sodium 134 L, Potassium 4.1, BUN 15, Creatinine 0.90, Glucose 106, Magnesium 2.2 <Adma Ocampo - Last Filed: 04/27/20 18:38> Assessment and Plan - Plan Assessment Lightheadedness and near-syncope secondary to new onset atrial fibrillation Hypertension Hypothyroidism Plan Lightheadedness and near-syncope secondary to new onset atrial fibrillation: Cardiology has been consulted, will continue with Lovenox 1 milligram/kilogram twice daily. Will continue patient's beta-alanis therapy of metoprolol. Echocardiogram has been ordered. Patient remained on telemetry during this hospitalization. Will also obtain TSH and free T4 levels. Anticipate discharge in the next 24 hr. Hypertension: Will continue patient's metoprolol and Benicar. Will adjust medications as needed. Hypothyroidism: Will obtain TSH and free T4 levels, continue patient's levothyroxine. Discharge Plan: Home Plan to discharge in: 24 Hours - Advance Directives Does patient have a Living Will: Yes Does patient have a Durable POA for Healthcare: Yes - Code Status/Comfort Care Code Status Assessed: Yes (Patient is full code) Critical Care: No Time Spent Managing Pts Care (In Minutes): 55 <Shiraz Pimentel - Last Filed: 04/27/20 13:34> - Plan Case discussed in detail with nurse practitioner. Agree with assessment, evaluation and plan of care. Also discuss with cardiology. Cardiology desires amiodarone drip. Anticipate conversion. If no conversion to normal sinus rhythm suspect patient will require cardioversion. Will discuss further with cardiology. <Adam Ocampo - Last Filed: 04/27/20 18:38>
[2020-04-27] MEDS: NA CHLORIDE 0.9% 1,000 ML IV SCH (14:56)
[2020-04-27] MEDS ORDERED: ONDANSETRON 4 MG/2 ML VIAL IV PRN (14:56)
[2020-04-27] MEDS ORDERED: AMIODARONE HCL 150 MG in D5W 100 ML IV STA (15:33)
[2020-04-27] MEDS ORDERED: TRAMADOL HCL 50 MG TAB PO PRN (15:45)
[2020-04-27] MEDS ORDERED: PROMETHAZINE INJ 25 MG/ML AMP IV PRN (15:45)
[2020-04-27] MEDS ORDERED: AMIODARONE HCL 900 MG in Dextrose 5%-Water 482 ML IV SCH ×2 (16:00→18:00)
[2020-04-27] MEDS ORDERED: NA CHLORIDE 0.9% 1,000 ML ONE (16:01)
[2020-04-27] MEDS: AMIODARONE HCL 900 MG in Dextrose 5%-Water 482 ML IV PRN (17:35)
[2020-04-27 17:50] VITALS: BMI 23.6
[2020-04-27] MEDS ORDERED: METOPROLOL XL 25 MG TAB PO SCH (21:00)
[2020-04-27] MEDS: METOPROLOL XL 25 MG TAB PO SCH (21:00)
[2020-04-27] MEDS: ENOXAPARIN 80 MG/0.8 ML SQ SCH (21:00)
[2020-04-27 22:36] LABS: Thyroid Stimulating Hormone 4.16 uIU/mL (0.360-3.740)
[2020-04-27] MEDS ORDERED: METOPROLOL XL 25 MG TAB PO ONE ×2 (23:06→23:31)
[2020-04-28] MEDS ORDERED: TRAMADOL HCL 50 MG TAB ONE (02:57)
[2020-04-28] MEDS ORDERED: PROMETHAZINE INJ 25 MG/ML AMP ONE (02:58)
[2020-04-28] MEDS ORDERED: LEVOTHYROXINE SOD 0.05 MG TABLET ONE (05:22)
[2020-04-28 05:23] LABS: Absolute Lymphocytes (CBC) 1.8 K/uL (0.7-4.9); Basophils % 1.2 % (0-1.3); Lymphocytes % 23.8 % (15.3-44.8); MPV 7.9 fL (7.6-11.3); RBC Red Blood Cell Count 3.84 M/uL (3.86-4.86)
[2020-04-28] MEDS: LEVOTHYROXINE SOD 0.05 MG TABLET PO SCH (06:30)
[2020-04-28 06:48] LABS: Albumin 3.1 g/dL (3.4-5.0); Bilirubin Total 0.5 mg/dL (0.2-1.0); Protein, Total 5.9 g/dL (6.4-8.2)
[2020-04-28 06:49] LABS: Magnesium 2.1 mg/dL (1.8-2.4); Potassium 4.2 mmol/L (3.5-5.1)
[2020-04-28] MEDS: METOPROLOL XL 25 MG TAB PO SCH (08:49)
[2020-04-28] MEDS: ENOXAPARIN 80 MG/0.8 ML SQ SCH (08:49)
[2020-04-28] MEDS ORDERED: ENOXAPARIN 80 MG/0.8 ML SQ ONE (08:51)
[2020-04-28] MEDS: ACETAMINOPHEN 500 MG TAB PO PRN ×2 (08:55→18:25)
[2020-04-28] MEDS ORDERED: ACETAMINOPHEN 325 MG TABLET ONE ×2 (09:09→18:33)
[2020-04-28] MEDS: NA CHLORIDE 0.9% 1,000 ML IV SCH (10:56)
[2020-04-28] MEDS ORDERED: NA CHLORIDE 0.9% 1,000 ML ONE (11:49)
[2020-04-28] MEDS: AMIODARONE HCL 900 MG in Dextrose 5%-Water 482 ML IV PRN (14:59)
--- NOTE | 2020-04-28 17:23 | P.PN ---
Subjective Date of Service: 04/28/20 Primary Care Provider: Nai; Cardiology-Dr. Solano Chief Complaint: New onset atrial fibrillation Subjective: Improving, Doing well Physical Examination - Vital Signs Temperature: 97.7 F Blood Pressure: 122/80 Pulse: 99 Respirations: 16 Pulse Ox (%): 99 - Physical Exam General: Alert, Cooperative HEENT: Atraumatic Neck: Supple Respiratory: Clear to auscultation bilaterally, Normal air movement Cardiovascular: Irregular heart rate/rhythm (Patient remains in AFib. Rate controlled.) Gastrointestinal: No tenderness, No masses, No rebound, No guarding Musculoskeletal: No erythema, No tenderness, No warmth Integumentary: No tenderness/swelling, No erythema, No warmth, No cyanosis Neurological: Normal speech, Normal strength at 5/5 x4 extr, Normal tone, Normal affect - Studies Laboratory Data (last 24 hrs) 04/28/20 05:00: Sodium 135 L, Potassium 4.2, BUN 16, Creatinine 0.80, Glucose 104, Magnesium 2.1, Total Bilirubin 0.5, AST 20, ALT 19, Alkaline Phosphatase 36 L 04/28/20 05:00: WBC 7.8, Hgb 12.7, Hct 37.0, Plt Count 239 D Medications List Reviewed: Yes Assessment & Plan Discharge Plan: Home Plan to discharge in: 24 Hours Physician Review Additional Text: Assessment Lightheadedness and near-syncope secondary to new onset atrial fibrillation Hypertension Hypothyroidism Plan Lightheadedness and near-syncope secondary to new onset atrial fibrillation: Patient remains on amiodarone. Amiodarone adjusted as the patient still remains in AFib. Case discussed in detail with cardiology. Will change Lovenox to oral Eliquis. Will continue to monitor closely. Cardiology also changed beta- alanis therapy to short-acting. Anticipate improvement over the next 24 hr. Hypertension: Medications have been adjusted Hypothyroidism: Continue home medication Time Spent Managing Pts Care (In Minutes): 55
[2020-04-28] MEDS: METOPROLOL TAR 25 MG TAB PO SCH (18:00)
[2020-04-28] MEDS ORDERED: METOPROLOL TAR 25 MG TAB ONE (18:33)
--- NOTE | 2020-04-28 20:26 | CON ---
Date of Consultation: 04/28/2020 Reason For Consultation: New-onset atrial fibrillation. History Of Present Illness: This is an 84-year-old pleasant female with history of tricuspid valve r egurgitation and right-sided failure, depression, arthritis, hypertension, hypothyroidism, presented to the emergency room with dizziness and near syncope and palpitations and denies having any chest pa in. Upon evaluation in emergency room, she was found to be in atrial fibrillation with rapid ventric ular response and we started her on amiodarone since yesterday and she feels better today. Heart rat e is below 100. Does not have any chest pain. 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 She was supposed to have a stress test and echo done that is yet to be scheduled for. Past Medical History: As outlined above in the HPI. Medications: Refer to reconciliation sheet for detailed list. Past Surgical History: Elbow surgery, back surgery, and hip replacement. Social History: Does not smoke or drink. Does not use any drugs. Family History: No premature coronary artery disease or cancer. Review of Systems: All systems reviewed, they were negative except for mentioned in the HPI. Allergies: FLUOROQUINOLONES. Physical Examination: Vital signs: Revealed a temperature of 97.7, pulse is 99, breathing at 16, blood pressure is 122/80, saturating 99% on room air. General: Pleasant elderly female, in no apparent distress. Head and Neck: Pupils are equal, react to light. Intact eye movements. No JVD. No cervical lympha denopathy. Neck supple. Thyroid is not enlarged. Lungs: Clear to auscultation bilaterally. No rhonchi, rales, or crackles. O accessory muscle use. Heart: Irregularly irregular. No extra sounds. Abdomen: Soft, nontender. Bowel sounds positive. No organomegaly. No masses or hernia. No rigidi ty or rebound. Extremities: No edema, clubbing, cyanosis. Intact pulses. Skin: No rash. Neurologic: Alert, awake, oriented x3. No focal deficits appreciated. No cervical lymphadenopathy. Investigations: TSH is 4.16, creatinine 0.9. Troponin less than 0.02 and NT-proBNP is 5187. Assessment And Plan: 1.Atrial fibrillation with rapid ventricular response, symptomatic. Recommend amiodarone load. I d iscussed with the hospitalist service yesterday. We will increase today the rate from 0.5 per minute to 1 mg/minute until she converts to sinus rhythm. Recommend Eliquis 5 mg p.o. twice a day for stro ke prevention and metoprolol 25 mg twice a day to use as short-acting form and obtain echocardiogram to further evaluate her heart structure and function. 2.Hypertension. Blood pressure is controlled. Continue home medications. Thank you for this consultation. /SAUL Voice ID: [id number] Report ID: [id number]
[2020-04-28] MEDS: APIXABAN 5 MG TABLET PO SCH (21:00)
[2020-04-28] MEDS ORDERED: APIXABAN 5 MG TABLET ONE (22:14)
[2020-04-28] MEDS: HYDROCODONE/APAP 7.5/325 MG TAB PO PRN (23:58)
[2020-04-29] MEDS ORDERED: HYDROCODONE/APAP 7.5/325 MG TAB ONE ×2 (00:05→13:32)
[2020-04-29] MEDS ORDERED: METOPROLOL TAR 25 MG TAB ONE (05:38)
[2020-04-29] MEDS ORDERED: LEVOTHYROXINE SOD 0.05 MG TABLET ONE (05:43)
[2020-04-29] MEDS: METOPROLOL TAR 25 MG TAB PO SCH (06:00)
[2020-04-29] MEDS: LEVOTHYROXINE SOD 0.05 MG TABLET PO SCH (06:01)
[2020-04-29] MEDS ORDERED: CYCLOBENZAPRINE 10 MG TAB PO PRN (07:16)
[2020-04-29] MEDS ORDERED: ESCITALOPRAM 20 MG TAB PO SCH (09:00)
[2020-04-29] MEDS: APIXABAN 5 MG TABLET PO SCH (09:00)
[2020-04-29] MEDS ORDERED: AMIODARONE HCL 200 MG TAB PO ONE (10:44)
[2020-04-29] MEDS ORDERED: AMIODARONE HCL 200 MG TAB ONE (12:29)
[2020-04-29] MEDS: HYDROCODONE/APAP 7.5/325 MG TAB PO PRN (13:29)
[2020-04-29] MEDS ORDERED: CYCLOBENZAPRINE 10 MG TAB ONE (13:32)
--- NOTE | 2020-04-29 14:12 | P.DS ---
Admission Date: 04/28/20 Discharge Date: 04/29/20 Primary Care Provider: Dr. Rizvi; Cardiology-Dr. Solano Disposition: ROUTINE DISCHARGE Discharge Condition: GOOD Reason for Admission: New onset atrial fibrillation Consultations: Cardiology-Dr. Nava Procedures: CXR: Medical Problem List: Lightheadedness and near-syncope secondary to new onset atrial fibrillation Hypertension Hypothyroidism Depression with anxiety Brief History of Present Illness: 84 old female with medical history of hypertension, hypothyroidism presents the emergency department with complaint of dizziness and near syncope. During her evaluation in the emergency room patient was found to be in atrial fibrillation. Patient without history of atrial fibrillation. ED provider wishes to admit patient for further evaluation and management. When I saw the patient in the emergency department she appeared stable, patient was mildly tachycardic with a rate of approximately 110. Blood pressure was stable. Patient will be admitted with consult to cardiology for further management. Hospital Course: Patient presented with lightheadedness, near syncope secondary to new onset atrial fibrillation. The patient was admitted for observation. Cardiology was consulted to further evaluate. Cardiology recommended to continue beta-alanis therapy. Patient required additional medication-IV amiodarone. This was adjusted during her stay. The patient did not convert to normal rhythm. Rate w as controlled. Case discussed at length with cardiology. Since the patient did not convert the patient was switched over to oral amiodarone. At discharge patient will continue with amiodarone 200 mg 1 pill daily. The patient will also start chronic anti coagulation therapy-Eliquis 5 mg 1 pill twice daily for stroke prevention. Education on Eliquis in atrial fibrillation will be provided. Recommend no further use of nonsteroidal anti-inflammatories. This includes aspirin, ibuprofen, Motrin and Celebrex. Patient with underlying hypertension. At discharge she will continue with her medications including metoprolol 37.5 mg 1 pill twice daily. Patient also takes nicardipine 20 mg 1 pill twice daily and Benicar 20 mg 1 pill daily. Recommend to monitor blood pressure and heart rate daily. May need to hold nicardipine and/or Benicar if blood pressure less than 120 systolic. Recommend follow up with cardiology in 1 week to follow up this hospitalization. I will try to reach out to her primary flow manager to update on changes. Patient with Hypothyroidism. Patient will continue with her current medication. Patient with chronic pain. Patient will continue with her chronic pain medication. Patient with depression/anxiety. At discharge she will continue with her medication. Patient had COVID test. Results pending at discharge. Recommend to remain quarantine at home until results are finalized. She may call back to the hospital in 1-2 days for results. Patient will be provided CDC guidelines. Recommend social distancing, mask and hand washing. Vital Signs/Physical Exam: Temp Pulse Resp BP Pulse Ox 97.7 F 79 17 150/94 H 95 04/29/20 12:00 04/29/20 12:00 04/29/20 13:29 04/29/20 12:00 04/29/20 13:29 General: Alert, In no apparent distress, Oriented x3, Cooperative HEENT: Atraumatic Neck: Supple Respiratory: Clear to auscultation bilaterally, Normal air movement Cardiovascular: Irregular heart rate/rhythm (AFib rate controlled) Gastrointestinal: Normal bowel sounds, No tenderness, No masses, No rebound, No guarding Musculoskeletal: No erythema, No tenderness, No warmth Integumentary: No erythema, No warmth, No cyanosis Neurological: Normal speech, Normal strength at 5/5 x4 extr, Normal tone, Normal affect Laboratory Data at Discharge: WBC Cancelled 04/29/20 06:37 Hgb Cancelled 04/29/20 06:37 Hct Cancelled 04/29/20 06:37 Plt Count Cancelled 04/29/20 06:37 PT 10.6 SECONDS (9.5-12.5) 04/27/20 09:30 INR 0.90 04/27/20 09:30 Sodium Cancelled 04/29/20 06:37 Potassium Cancelled 04/29/20 06:37 BUN Cancelled 04/29/20 06:37 Creatinine Cancelled 04/29/20 06:37 Glucose Cancelled 04/29/20 06:37 Magnesium 2.1 mg/dL (1.8-2.4) 04/28/20 05:00 Total Bilirubin 0.5 mg/dL (0.2-1.0) 04/28/20 05:00 AST 20 U/L (15-37) 04/28/20 05:00 ALT 19 U/L (12-78) 04/28/20 05:00 Alkaline Phosphatase 36 U/L (45-117) L 04/28/20 05:00 Home Medications: Fish Oil/Dha/Epa [Fish Oil 1,200 mg Fish Oil] 1 each PO DAILY 08/14/15 Trazodone [Desyrel*] 100 mg PO BEDTIME 08/14/15 Escitalopram [Lexapro*] 10 mg PO DAILY 01/24/19 Levothyroxine [Synthroid*] 1 tab PO [id number] 01/24/19 Magnesium [Magnesium Gluconate] 400 mg PO DAILY 01/24/19 Turmeric/Turmeric Root Extract [Turmeric 500 mg Capsule] 8,000 mg PO DAILY 01/24/19 vit A and D3 in cod liver oiL [Cod Liver Oil Softgel] 1 tab PO DAILY 01/24/19 Montelukast [Singulair*] 10 mg PO DAILY PRN 08/01/19 Ascorbic Acid [Vitamin C*] 2,000 mg PO DAILY 04/27/20 Escitalopram Oxalate [Lexapro] 10 mg PO DAILY 04/27/20 Levothyroxine [Synthroid] 50 mcg PO DAILY 04/27/20 Metoprolol Tartrate [Lopressor*] 37.5 mg PO BID 04/27/20 Olmesartan Medoxomil [Benicar] 20 mg PO DAILY 04/27/20 Amiodarone HCl [Cordarone*] 200 mg PO DAILY #30 tab 04/29/20 Apixaban [Eliquis] 5 mg PO BID #60 tablet 04/29/20 New Medications: Amiodarone HCl [Cordarone*] 200 mg PO DAILY #30 tab Apixaban [Eliquis] 5 mg PO BID #60 tablet Patient Discharge Instructions: 1. Recommend follow up with PCP in 1 week to follow up hospitalization. 2. Patient presented with lightheadedness, near syncope secondary to new onset atrial fibrillation. The patient was admitted for observation. Cardiology was consulted to further evaluate. Cardiology recommended to continue beta-alanis therapy. Patient required additional medication-IV amiodarone. This was adjusted during her stay. The patient did not convert to normal rhythm. Rate was controlled. Case discussed at length with cardiology. Since the patient did not convert the patient was switched over to oral amiodarone. At discharge patient will continue with amiodarone 200 mg 1 pill daily. The patient will also start chronic anti coagulation therapy-Eliquis 5 mg 1 pill twice daily for stroke prevention. Education on Eliquis in atrial fibrillation will be provided. Recommend no further use of nonsteroidal anti-inflammatories. This includes aspirin, ibuprofen, Motrin and Celebrex. Recommend follow up with flow manager in 1 week to follow up this hospitalization. 3. Patient with underlying hypertension. At discharge she will continue with her medications including metoprolol 37.5 mg 1 pill twice daily. Patient also takes nicardipine 20 mg 1 pill twice daily and Benicar 20 mg 1 pill daily. Recommend to monitor blood pressure and heart rate daily. May need to hold nicardipine and/or Benicar if blood pressure less than 120 systolic. Recommend follow up with cardiology in 1 week to follow up this hospitalization. I will try to reach out to her primary flow manager to update on changes. 4. Patient with Hypothyroidism. Patient will continue with her current medication. 5. Patient with chronic pain. Patient will continue with her chronic pain medication. 6. Patient with depression/anxiety. At discharge she will continue with her medication. 7. Patient had COVID test. Results pending at discharge. Recommend to remain quarantine at home until results are finalized. She may call back to the hospital in 1-2 days for results. Patient will be provided CDC guidelines. Recommend social distancing, mask and hand was patricia. Diet: AHA Activity: Fall precautions Time spent managing pt's care (in minutes): 55
[2020-04-29 16:14] VITALS: TEMP 97.9
[2020-04-29 16:15] VITALS: BP 144/91
[2020-04-29] MEDS ORDERED: METOPROLOL TAR 25 MG TAB PO SCH (18:00)
[2020-04-29 18:04] VITALS: O2SAT 99
[2020-04-30] MEDS ORDERED: HOME MED 1 EA UNK (Olmesartan Medoxomil [Benicar] 20 MG) PO SCH (09:00)
== END 2020-04-29 16:57 | disposition home or self-care (01) | DRG 310 ==
LOC: ER 08:54 → ERHOLD 13:03 → OBSVTOIN 04-28 07:47
PROVIDERS: ADMIT Family Medicine; ATTEND Family Medicine
DX: I48.91 Unspecified atrial fibrillation (principal); R55 Syncope and collapse; I10 Essential (primary) hypertension; E03.9 Hypothyroidism, unspecified; F41.8 Other specified anxiety disorders; M19.90 Unspecified osteoarthritis, unspecified site; Z11.59 Encounter for screening for other viral diseases
CPT/HCPCS: 36415; 71045; 80048; 80053; 83735; 83880; 84439; 84443; 84484; 85025; 85610; 93005; 96372; 96374; 99285; G0378; J0282; J2405; J2550; J7030; J7060

== ENCOUNTER 2020-06-26 16:26 | Emergency (ER) | payer OTHER ==
--- OUTSIDE RECORDS SUMMARY | 2020-06-26 16:29 | XMS REPORT | Continuity of Care Document ---
:1935 Author Organization [facility] t Address [address] [place] [address] Care Team Providers Name Role Phone Asked, Given Primary Care Physician Unavailable Torsten Solano MD Attending Clinician Payers Payer Name Policy Type Policy Number Effective Date Expiration Date S genoveva UHC MEDICAREUHC xxxxxxxxx 2019 [facility] MEDICARE 00:00:00 Yarsanism PPOxxxxxxxxx [id number] Problems Condition Condition Condition Status Onset Resolution [...] 00 s to drug levoflox DA Active [facility] 5[facility]20 [place] 00:00: [facility] Social History Social Habit Start Date Stop Date Quantity Comments Source Sex Assigned At [facility] ethodist Alcohol intake 2017-01-16 2017-01-16 Current drinker [place] [facility] 00:00:00 00:00:00 of alcohol (finding) Smoking Status Start Date Stop Date Source Never smoker [place] long Medications Ordered Filled Start Stop Current Ordering Indication Dosage Frequency Signature Comments Components Source Medication Medication Date Date Medication? Clinician (SIG) Name Name metoprolol 2020-0 Yes 25mg Q.5D Take 25 mg [place] tartrate 8-05 by mouth 2 Metho di (LOPRESSOR) 14:41: (two) st 25 MG 00 times a tablet day. celecoxib 2020-0 Yes 200mg Q.5D Take 200 Tamiko ston (CeleBREX) 8-05 mg by Methodi 200 MG 14:41: mouth 2 st capsule 00 (two) times a day. escitalopra 2020-0 Yes 10mg QD Take 10 mg [facility] (LEXAPRO) 8-05 by mouth Meth perez 10 MG 14:41: daily. st tablet 00 traZODone 2020-0 Yes 100mg QD Take 100 Tamiko ston (DESYREL) 8-05 mg by Methodi 100 MG 14:41: mouth st tablet 00 nightly. lidocaine 2020-0 Yes 1{patch Q24H Place 1 [place] (LIDODERM) 8-05 } patch on Metho di 5 % 14:41: the skin st 00 daily. Remove & Discard patch within 12 hours or as directed by estradiol 2020-0 Yes 2g QD Insert 2 g [place] (ESTRACE) 8-05 into the Method i 0.01 % (0.1 14:41: vagina st mg/gram) 00 daily. vaginal cream vitamin A & 2020-0 Yes Apply [place] D ointment 8-05 topically Meth perez 14:41: as needed st 00 for dry skin. multivitami 2020-0 Yes 1{tbl} QD Take 1 [place] n 8-05 tablet by Methodi (THERAGRAN) 14:41: mouth st tablet 00 daily. omega-3 2020-0 Yes 1g Q.5D Take 1 g [place] acid ethyl 8-05 by mouth 2 Met hodi esters 14:41: (two) st (LOVAZA) 1 00 times a gram day. capsule calcium Yes 1{tbl} QD Take 1 [place] carbonate-v 8-05 tablet by Met hodi itamin D3 14:41: mouth st 250-125 00 daily. mg-unit tablet metoprolol Yes 25mg Q.5D Take 25 mg [place] tartrate 6-01 by mouth 2 Metho di (LOPRESSOR) 12:11: (two) st 25 MG 15 times a tablet day. escitalopra Yes 10mg QD Take 10 mg Leung m (LEXAPRO) 6-01 by mouth Meth perez 10 MG 12:11: daily. st tablet 15 traZODone Yes 100mg QD Take 100 Tamiko ston (DESYREL) 6-01 mg by Methodi 100 MG 12:11: mouth st tablet 15 nightly. lidocaine Yes 1{patch Q24H Place 1 [place] (LIDODERM) 6- } patch on Metho di 5 % 12:11: the skin st 15 daily. Remove & Discard patch within 12 hours or as directed by estradiol Yes 2g QD Insert 2 g [place] (ESTRACE) 6-01 into the Method i 0.01 % (0.1 12:11: vagina st mg/gram) 15 daily. vaginal cream nitrofurant Yes 50mg QD Take 50 mg [place] oin 6-01 by mouth Methodi (MACRODANTI 12:11: daily. st N) 50 MG 15 capsule celecoxib Yes Madhu (CeleBREX) 5-18 Methodi 200 MG 00:00: st capsule 00 HYDROcodone Yes Kindra n -acetaminop 5-18 Methodi hen (NORCO 00:00: st 10-325) 00 10-325 mg per tablet Vital Signs Vital Name Observation Time Observation Value Comments Source Systolic blood 2020-05-23 14:38:00 103 mm[Hg] Kindra rizo Yarsanism pressure Diastolic blood 2020-05-23 14:38:00 56 mm[Hg] [place] Yarsanism pressure Heart rate 2020-05-23 14:38:00 49 /min Madhu Mariscal Respiratory rate 2020-05-23 14:38:00 20 /min Lexa Mariscal Body height 2020-05-23 14:38:00 175.3 cm Madhu Mariscal Body weight 2020-05-23 14:38:00 72.576 kg Madhu Mariscal BMI 2020-05-23 14:38:00 23.63 kg/m2 Madhu Mariscal Oxygen saturation in 2020-05-23 14:38:00 97 /min Madhu Mariscal Arterial blood by Pulse oximetry Procedures Procedure Date / Time Performed Performing Clinician Jose e CARDIAC MRI VALVE 2020-05-30 10:40:07 Dane Solano Me thodist ASSESSMENT W CONTRAST POC CREATININE 2020-05-23 14:40:00 Dane Solano odist ESTIMATED GFR 2020-05-23 14:40:00 Dane Solano Meth odist HEMATOCRIT 2020-05-23 14:30:00 Dane Solano Meth odist Plan of Care Planned Activity Planned Date Details Comments Source Future Scheduled 2020-07-19 INFLUENZA VACCINE [place] [facility] Test 00:00:00 [code = INFLUENZA VACCINE] Future Scheduled 2001 65+ PNEUMOCOCCAL Madhu [facility]ism Test 00:00:00 VACCINE (1 of 2 - PCV13) [code = 65+ PNEUMOCOCCAL VACCINE (1 of 2 - PCV13)] Future Scheduled 1986 SHINGLES VACCINES (#1) [place] [facility] Test 00:00:00 [code = SHINGLES VACCINES (#1)] Encounters Start End Encounter Admission Attending Care Care Encounter Source Date/Time Date/Time Type Type Clinicians Facility Department ID 2020-05-23 2020-05-[address] [facility] [id number] [place] 00:00:00 00:00:00 DANE [address] 2020-05-23 2020-05-[address] [facility] [id number] [place] 00:00:00 00:00:[address] DANE [address] Results Test Description Test Time Test Comments Results Result Jessi e Comments Cardiac mri 2020-05-19 Interface, Radiology Tamiko drummond valve assessment 5 Results In - Method ist w contrast 11:55:00 06/02/2020 11:55 AM CDT Madhu Mariscal CMR Report Name: ANDI SMILEY : 1935 Scan Date: 2020-05-23 13:57:34 Electronically signed by Payam Gonsalves M.D. 11:55:32VITALS =HEIGHT: 69.02 in (175.31 cm)WEIGHT: 160.01 lbs (72.58 kgs)BSA: 1.88 m2BP: 103 / 56 mmHgBASELINE HR: 49 BPMHEART RHYTHM: Sinus BradycardiaFINAL IMPRESSION =A. BIATRAIL ENLARGEMENT WITH MODERATE ATRIAL FUNCTIONAL MITRAL REGURGITATION AND MODERATE-SEVERE ATRIALFUNCTIONAL TRICUSPID REGURGITATION.B. NORMAL LV SIZE AND SYSTOLIC FUNCTION. MILDLY DILATED RV WITH LOW NORMAL RV SYSTOLIC FUNCTION.SUMMARY =LEFT VENTRICLE: LV wall thickness is normal. LV cavity size is normal. LV systolic function is normal. Quantitative LVEF 67%. There is no LV mass/thrombus.VIABILI TY: Hyperenhancement is normal.RIGHT VENTRICLE: RV wall thickness is normal. RV is mildly enlarged. RV systolic function is normal. Quantitative RVEF 55 %. There is no RV mass/thrombus.LEFT ATRIUM: LA is moderately enlarged. There is no LA mass/thrombus.RIGHT ATRIUM: RA is severely enlarged. There is no RA mass/thrombus.PERICAR DIUM: Pericardium is normal. There is a trivial pericardial effusion. There is a circumferential pericardialeffusion. There are no signs of increased intrapericardial pressures.AORTIC VALVE: Aortic valve is trileaflet. There is trivial aortic regurgitation. There is no aortic stenosis.MITRAL VALVE: Mitral valve is thickened/calcified. The mitral valve annulus is dilated. Mitral annular diameter is 4.0cm. There is moderate mitral regurgitation. Mitral regurgitant volume 32 ml. Mitral regurgitant fraction 34%. There is no mitral stenosis.TRICUSPID VALVE: The tricuspid valve annulus is dilated. Tricuspid annular diameter is 4.7 cm. Tricuspid valve isthickened/calcified . There is moderate-severe tricuspid regurgitation. There is no tricuspid stenosis.Tricuspid regurgitant volume 48 ml. Tricuspid regurgitant fraction 44 %.PULMONIC VALVE: Pulmonic valve leaflets are normal. There is trivial pulmonic regurgitation. There is no pulmonic stenosis.AORTIC ROOT: The aortic root is normal in size.CHEST: Normal thoracic aorta dimensions.VENOUS: Normal pulmonary venous anatomy.OTHER FINDINGS: Multiple hepatic cysts. Bilateral renal cysts. Trace bilateral pleural effusions.CORE EXAM =MEASUREMENTS ---- VOLUMETRIC ANALYSIS ----. .| | | LV | Reference | RV | Reference |+------+-------+---- --+ +------ + +| EDV | ml | 139 | | 200 | || ESV | ml | 46 | | 90 | || CO | L/min | 4.46 | | 5.28 | || MASS | g | 80 | | | || SV | ml | 93 | | 110 | || EF | % | 67 | | 55 | |'------+-------+---- --+ +------ + ' CARDIAC OUTPUT HR: 48 bpm LV DIMENSIONS ---- WALL THICKNESS - ANTEROSEPTAL: 0.8 cm WALL THICKNESS - INFEROLATERAL: 0.7 cm LV MUSA: 4.3 cm LV ESD: 2.5 cm LA DIMENSIONS (LV SYSTOLE) ---- DIAMETER: 4.2 cm AREA - 2 CHAMBER: 28 cm2 LENGTH - 2 CHAMBER: 5.9 cm AREA - 4 CHAMBER: 28 cm2 LENGTH - 4 CHAMBER: 5.3 cm VOLUME: 126 ml VOLUME NORMALIZED: 67.0 ml/m2 AORTIC ROOT DIMENSIONS ---- ANNULUS: 2.7 cm SINUS OF VALSALVA: 3.5 cm SINOTUBULAR JUNCTION: 3.0 cm EXTRACELLULAR VOLUME MEASUREMENT ---- HEMATOCRIT: 28.4 % HEMATOCRIT DATE: 2020-05-23 00:00:00 17 SEGMENT ----. .| Segments | Wall Motion | Hyperenhancement | Stress Perfusion | Interpretation |+ -+ +---- +------ +-------- --------+| Base Anterior | Normal/Hyper | None | | || Base Anteroseptal | Normal/Hyper | None | | || Base Inferoseptal | Normal/Hyper | None | | || Base Inferior | Normal/Hyper | None | | || Base Inferolateral | Normal/Hyper | None | | || Base Anterolateral | Normal/Hyper | None | | || Mid Anterior | Normal/Hyper | None | | || Mid Anteroseptal | Normal/Hyper | None | | || Mid Inferoseptal | Normal/Hyper | None | | || Mid Inferior | Normal/Hyper | None | | || Mid Inferolateral | Normal/Hyper | None | | || Mid Anterolateral | Normal/Hyper | None | | || Apical Anterior | Normal/Hyper | None | | || Apical Septal | Normal/Hyper | None | | || Apical Inferior | Normal/Hyper | None | | || Apical Lateral | Normal/Hyper | None | | || [place] | Normal/Hyper | None | | |+ -+ +---- +------ +-------- --------+| RV Segments | Wall Motion | Hyperenhancement | Stress Perfusion | Interpretation |+ -+ +---- +------ +-------- --------+| RV Basal Anterior | Normal/Hyper | None | | || RV Basal Inferior | Normal/Hyper | None | | || RV Mid | Normal/Hyper | None | | || RV Apical | Normal/Hyper | None | | |' -+ +---- +------ +-------- --------' FINDINGS ---- SCAR SIZE: 0 %SCAN INFO =GENERAL ---- SCANNER ---- PROPERTY AND CASUALTY INSURANCE AGENT: SIEMENS MODEL: Skyra_fit PULSE SEQUENCES: SSFP cine, 2D LGE single-shot, Pre-contrast T1 mapping, Post-contrast T1 mapping, Phase contrast imaging, HASTE morphology, Bright-blood SSFP morphology, 3D contrast enhanced MRA CONTRAST AGENT ----- TYPE: Dotarem LOT NUMBER: [id number] EXPIRATION DATE: 2023-06-18 00:00:00 GD CONCENTRATION: 0.5 M VOLUME ADMINISTERED: 22 ml DOSAGE: 0.15 mmol/kg SERUM CREATININE: 1.1 mg/dL GFR: 50.42 ml/min/1.73m2 CREATININE DATE: 2020-05-23 00:00:00 SEDATION ---- SEDATION USED?: No SETUP ---- SCAN TYPE: Both PATIENT TYPE: Outpatient LOCATION: [facility] INCOMPLETE SCAN: No REASON(S) FOR SCAN: Eval habematolel valve(s) REFERRING PHYSICIAN: Dane Solano MD ATTENDING PHYSICIAN: Dane Solano MD TECHNICIANS: 1) Chrissie Murrell =Patient Account [id number] Codes 40502, 45924, [id number] Codes I34.0, I36.1, R93.1ADDITIONAL NOTES =AO 55, LVOT 61 (used), PA 62 (no significant direct AK)MRMR RVol = LVSV 93 - LVOT FF 61MR RF = RVol/(LVSV-AR)RVol (mL) 32RF (%) 34%TRRVol = RVSV 110 - PA FF 62 TR TF = RVol/(RVSV-AK)" TR RVol (mL) 48RF (%) 44%AK RVol (mL) 1RF (%) 2%Report generated by [employer], a product of [employer] [facility] 2020-05-23 15:38:45 Test Item Value Reference Range Interpretation Comme nts HCT (test code = 4544-3) 28.4 % 37-47 L Lab Interpretation (test code = 54314-8) Abnormal Madhu MariscalPOC [id number] 14:44:08 Test Item Value Reference Range Interpretation Comments POC creatinine (test 1.1 mg/dl 0.5-0.9 H Operato r Name: Ng code = 99468-5) PaulineDevic e ID: [id number] Lab Interpretation Abnormal (test code = 38404-4) [place] [facility] [id number] 14:44:08 Test Item Value Reference Range Interpretation Comments Estimated GFR (test 46 mL/min/1.73 m2 A Caterg ory Units code = 97870-2) Interpretati onG1 >=90 Kateryna l or highG2 60-89 Mildly decrease dG3a 45-59 Mil dly to moderately decr knrhtY7c 30-44 Moderately to s everely decreasedG4 15-29 Severe ly decreasedG5 <15 Kidney joel lureThe eGFR was calcul ated using the Chron ic Kidney Disease Epidemiology Collaboration ( CKD-EPI) equation. Interpretation is based on recommendati ons of the National Ki dney Foundation-Kidn ey Disease Outcome s Quality Initiat [place] (NKF-KDOQI) [facility] in 2013. Lab Interpretation Abnormal (test code = 55045-3) [place] Yarsanism- MRI L-SPINE W/O [id number] 13:16:00 Patient Name: ANDI SMILEY Unit No: [id number] EXAMS: CPT CODE: [id number] MRI L-SPINE W/O CONT 99067 TECHNIQUE: Multiplanar, multisequence MRI examination performed of the lumbar spine without intravenous contrast material. COMPARISON: None available. FINDINGS: Postoperative changes of L2-L5 posterior instrumented fusion is demonstrated. Alignment: Leftward curvature of the lumbar spine is centered at L3-L4 . There is also rightward curvature of the lower thoracic spine. Grade 1 retrolisthesis of L1-L2 as well as grade 1 spondylolisthesis of L4-L5 and L5-S1. Bone Lesion: Markeddegenerative marrow signal is seen at L1-L2. Fracture: None present. Paraspinal Soft Tissues: A left renal cystic lesion is partially visualized. ConusMedullaris: Termination at L1 level. Morphology is normal. [...] is decompressed. No significant foraminal stenosis. L4/5: Grade1 spondylolisthesis. The central canal is decompressed. Mild [...] Reported and signed by: Bartolo Brumfield M.D. [facility] NAME: ANDI SMILEY [address] [facility] PHYS: Lobo Villalba MD : 1935 AGE: 84 SEX: F [place] [address] LOC: Y.MRI PHONE #: [phone] EXAM DATE: 12/02/2019 STATUS: DEP CLI FAX #: [phone] RAD #: D/C DT PAGE 1 Signed Report (CONTINUED) Patient Name: ANDI SMILEY Unit No: [id number] EXAMS: CPT CODE: [id number] MRI L-SPINE W/O CONT 65813 <Continued> CC: Richi Sanchez M.D. Technologist: AMRIK FORD, UMESH Transcribed D/ (1316) tNELL.[facility] NAME: ANDI SMILEY [address] [facility] PHYS: Lobo Villalba MD : 1935 AGE: 84 SEX: F [place] [address] LOC: Y.MRI PHONE #: [phone] EXAM DATE: 12/02/2019 STATUS: DEP CLI FAX #: [phone] RAD #: D/C DT PAGE 2 Signed Report Patient Name: ANDI SMILEY Unit No: [id number] EXAMS: CPT CODE: [id number] MRI L-SPINE W/O CONT 24897 <Continued> Orig Print D/T: S: 12/05/2019 (1320) [facility] NAME: ANDI SMILEY [address] [facility] [address] PHYS: Lobo Villalba MD : 1935 AGE: 84 SEX: F [place], [place] [address] LOC: Y.MRI PHONE #: [phone] EXAM DATE: 12/02/2019 STATUS: DEP CLI FAX #: [phone] RAD #: D/C DT PAGE 3 Signed Report
[2020-06-26 17:41] LABS: Basophils % 1.2 % (0-1.3); Hematocrit 29.8 % (36.0-45.0); Lymphocytes % 14.4 % (15.3-44.8); MPV 7.6 fL (7.6-11.3); RBC Red Blood Cell Count 3.16 M/uL (3.86-4.86)
[2020-06-26] MEDS ORDERED: NA CHLORIDE 0.9% 500 ML ONE (17:41)
[2020-06-26 17:57] LABS: Potassium 4.2 mmol/L (3.5-5.1)
--- NOTE | 2020-06-26 18:38 | ER ---
Nurse's Notes [facility] Name: Scarlett Garrett Age: 85 yrs Sex: Female : 1935 Arrival Date: 06/26/2020 Time: 16:29 Bed 5 Private MD: Diagnosis: Bradycardia, unspecified;Dehydration;Orthostatic hypotension Presentation: 06/26 16:37 Chief complaint: Patient states: Lightheaded, black spots in field of vision for 1 day. ll1 Took BP at home 90/50, HR 33. Dr. Solano sent her in for EKG, history of A fib. Reports "allergies"/runny nose since May. Coronavirus screen: Client denies travel out of the [place] in the last 14 days. congestion, fatigue. Ebola Screen: Patient denies travel to an Ebola-affected area in the 21 days before illness onset. Initial Sepsis Screen: Does the patient meet any 2 criteria? No. Patient's initial sepsis screen is negative. Risk Assessment: Do you want to hurt yourself or someone else? Patient reports no desire to harm self or others. Onset of symptoms was June 26, 2020. 16:37 Method Of Arrival: Ambulatory ll1 16:37 Acuity: VANESA 3 ll1 Historical: - Allergies: 16:40 Cipro; ll1 16:40 Levaquin; ll1 - PMHx: 16:40 Arthritis; severe tricuspid valve regurgitation; Depression; mitral valve; ll1 - PSHx: 16:40 hip replacement; back; ll1 - Immunization history:: Flu vaccine is up to date. - Social history:: Smoking status: Patient denies any tobacco usage or history of. - Family history:: not pertinent. - Hospitalizations: : Patient was recently seen at. Screenin:37 Abuse screen: Denies threats or abuse. Denies injuries from another. Nutritional jr10 screening: No deficits noted. Tuberculosis screening: No symptoms or risk factors identified. Fall Risk IV access (20 points). Assessment: 17:40 General: Appears in no apparent distress. Behavior is calm, cooperative, appropriate jr10 for age. Pain: Denies pain. Neuro: No deficits noted. Cardiovascular: Reports fatigue, lightheadedness, reports low HR and hypotension that started this morning since this morning Denies chest pain, shortness of breath, syncope, vomiting, Patient's skin is warm and dry. Pulses are all present. Edema is absent. Rhythm is sinus bradycardia. Respiratory: No deficits noted. Airway is patent Respiratory effort is even, unlabored, Respiratory pattern is regular, symmetrical, Breath sounds are clear bilaterally. Denies cough, shortness of breath. GI: No deficits noted. No signs and/or symptoms were reported involving the gastrointestinal system. Patient currently denies diarrhea, nausea, vomiting. : No deficits noted. No signs and/or symptoms were reported regarding the genitourinary system. EENT: No deficits noted. No signs and/or symptoms were reported regarding the EENT system. Derm: No deficits noted. No signs and/or symptoms reported regarding the dermatologic system. Musculoskeletal: No deficits noted. No signs and/or symptoms reported regarding the musculoskeletal system. Vital Signs: 16:37 BP 152 / 88; Pulse 55; Resp 16; Temp 99.8; Pulse Ox 96% ; Pain 0/10; ll1 17:36 BP 127 / 86; Pulse 50; Resp 17; Pulse Ox 100% on R/A; Pain 0/10; jr10 18:55 BP 138 / 71; Pulse 51; Resp 17; Pulse Ox 100% on R/A; Pain 0/10; jr10 ED Course: 16:29 Patient arrived in ED. as 16:39 Triage completed. ll1 16:41 Herbert Rodriges MD is Attending Physician. rn 16:41 Arm band placed on Patient placed in an exam room, on a stretcher. ll1 17:07 Margarita Dunn, LEE ANN is Primary Nurse. jr10 17:37 Patient has correct armband on for positive identification. Placed in gown. Bed in low jr10 position. Call light in reach. Side rails up X2. monitoring manager on. Pulse ox on. NIBP on. 17:37 No provider procedures requiring assistance completed. Inserted saline lock: 22 gauge jr10 in left antecubital area, using aseptic technique. ,using aseptic technique. via Yanet, PCT IV is patent, is intact, with fluids infusing freely, with good blood return, Flushed. 17:40 Initial lab(s) drawn, by me, sent to lab. EKG done, by ED staff, reviewed by Herbert Jaron Rodriges MD. Inserted saline lock: 22 gauge in left antecubital area, using aseptic technique. Blood collected. 17:41 Warm blanket given. monitoring manager on. Pulse ox on. NIBP on. mh5 18:29 XRAY Chest (1 view) In Process Unspecified. EDMS 18:56 IV discontinued, intact, bleeding controlled, No redness/swelling at site. Pressure jr10 dressing applied. Administered Medications: 17:36 Drug: NS 0.9% 500 ml Route: IV; Rate: bolus; Site: left antecubital; jr10 18:26 Follow up: Response: No adverse reaction; IV Status: Completed infusion jr10 Outcome: 18:37 Discharge ordered by . rn 18:56 Discharged to home ambulatory. jr10 18:56 Condition: stable 18:56 Discharge instructions given to patient, Instructed on discharge instructions, follow up and referral plans. Demonstrated understanding of instructions, follow-up care. 18:56 Patient left the ED. jr10 Signatures: Dispatcher [employer] Debby Juárez Roman, MD MD rn Martinez, [facility] Kathya Duenas RN RN 1 Margarita Dunn RN RN jr10 Corrections: (The following items were deleted from the chart) 16:41 16:37 Chief complaint: Patient states: Lightheaded, black spots in field of vision for ll1 1 day. Took BP at home 90/50, HR 33. Dr. Solano sent her in for EKG. ll1
--- NOTE | 2020-06-26 18:38 | EDPHYS ---
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 16:56 Reports feels fine, but noticed this AM that heart rate and BP were running low, rn reports heart doctor "tweaking" medications recently after admission to hospital, sent here for ECG to make sure she wasn't back in afib, doesn't feel like back in afib, but ECG department closed, redirected here. No chest pain/abd pain/vomiting/diarrhea. Reports lasix just started 2 weeks ago and feels thirsty. NO syncope. No fever. Does not feel ill. . Onset: The symptoms/episode began/occurred this morning. Severity of symptoms: At their worst the symptoms were mild in the emergency department the symptoms have improved. The patient has not experienced similar symptoms in the past. The patient has been recently seen by a physician:. Historical: - Allergies: 16:40 Cipro; ll1 16:40 Levaquin; ll1 - PMHx: 16:40 Arthritis; severe tricuspid valve regurgitation; Depression; mitral valve; ll1 - PSHx: 16:40 hip replacement; back; ll1 - Immunization history:: Flu vaccine is up to date. - Social history:: Smoking status: Patient denies any tobacco usage or history of. - Family history:: not pertinent. - Hospitalizations: : Patient was recently seen at. ROS: 16:56 Constitutional: Negative for fever, chills, and weight loss, Eyes: Negative for injury, rn pain, redness, and discharge, Neck: Negative for injury, pain, and swelling, Cardiovascular: Negative for chest pain, palpitations, and edema, Respiratory: Negative for shortness of breath, cough, wheezing, and pleuritic chest pain, Abdomen/GI: Negative for abdominal pain, nausea, vomiting, diarrhea, and constipation, MS/Extremity: Negative for injury and deformity, Skin: Negative for injury, rash, and discoloration, Neuro: Negative for headache, weakness, numbness, tingling, and seizure. Exam: 16:56 Constitutional: This is a well developed, well nourished patient who is awake, alert, rn and in no acute distress. Head/Face: Normocephalic, atraumatic. Eyes: Pupils equal round and reactive to light, extra-ocular motions intact. Lids and lashes normal. Conjunctiva and sclera are non-icteric and not injected. Cornea within normal limits. Periorbital areas with no swelling, redness, or edema. Cardiovascular: Regular rate and rhythm. No pulse deficits. Respiratory: No increased work of breathing, no retractions or nasal flaring. Abdomen/GI: Soft, non-tender Skin: Warm, dry MS/ Extremity: Pulses equal, no cyanosis. Neurovascular intact. Full, normal range of motion. Equal circumference. Neuro: Awake and alert, GCS 15, oriented to person, place, time, and situation. Cranial nerves II-XII grossly intact. Motor strength 5/5 in all extremities. Sensory grossly intact. Cerebellar exam normal. Normal gait. 17:44 ECG was reviewed by the Attending Physician. rn Vital Signs: 16:37 BP 152 / 88; Pulse 55; Resp 16; Temp 99.8; Pulse Ox 96% ; Pain 0/10; ll1 17:36 BP 127 / 86; Pulse 50; Resp 17; Pulse Ox 100% on R/A; Pain 0/10; jr10 18:55 BP 138 / 71; Pulse 51; Resp 17; Pulse Ox 100% on R/A; Pain 0/10; jr10 MDM: 16:42 Patient medically screened. rn 17:55 ED course: Pt states does not feel has UTI, and requests UA sample be canceled. She rn states she knows what a UTI feels like and she does not have one. . 18:29 Differential Diagnosis orthostatic hypotension, dehydration, over diuresis from lasix, furnace maintenance side effects. . Data reviewed: vital signs, nurses notes, lab test result(s), EKG, radiologic studies, plain films, and as a result, I will discharge patient. Counseling: I had a detailed discussion with the patient and/or guardian regarding: the historical points, exam findings, and any diagnostic results supporting the discharge/admit diagnosis, lab results, radiology results, the need for outpatient follow up, to return to the emergency department if symptoms worsen or persist or if there are any questions or concerns that arise at home. Response to treatment: the patient's condition has returned to base line, the patient is now symptom free, and as a result, I will discharge patient. Special discussion: I discussed with the patient/guardian in detail that at this point there is no indication for admission to the hospital. It is understood, however, that if the symptoms persist or worsen the patient needs to return immediately for re-evaluation. ED course: NO acute findings here, will call her outside property agent tomorrow, likely combination of diuretics that were just started 2 weeks ago, and multiple medications that can explain her bradycardia. Printed copy of her ECG, and will call her outside property agent tomorrow for further reocmmendations.. 06/26 16:53 Order name: CBC with Diff; Complete Time: 17:48 rn 06/26 16:53 Order name: Basic Metabolic Panel; Complete Time: 17:59 rn 06/26 16:53 Order name: Procalcitonin; Complete Time: 18:49 rn 06/26 16:56 Order name: XRAY Chest (1 view) rn 06/26 16:53 Order name: IV Start; Complete Time: 17:36 rn 06/26 16:53 Order name: EKG; Complete Time: 16:54 rn 06/26 16:53 Order name: EKG - Nurse/Tech; Complete Time: 17:36 rn EC:44 Rate is 50 beats/min. Rhythm is regular. QRS [place] is Normal. NV interval is prolonged rn at 214 msec. QRS interval is normal. QT interval is normal. No Q waves. T waves are Normal. No ST changes noted. Clinical impression: 1st degree heart block and Sinus bradycardia. Interpreted by me. Reviewed by me. Administered Medications: 17:36 Drug: NS 0.9% 500 ml Route: IV; Rate: bolus; Site: left antecubital; jr10 18:26 Follow up: Response: No adverse reaction; IV Status: Completed infusion jr10 Disposition: 06/26/20 18:37 Discharged to Home. Impression: Bradycardia, unspecified, Dehydration, Orthostatic hypotension. - Condition is Stable. - Discharge Instructions: Bradycardia, Adult, Dehydration, Adult, Orthostatic Hypotension. - Medication Reconciliation Form, Thank You Letter, Antibiotic Education, Prescription Opioid Use form. - Follow up: Private Physician; When: Tomorrow; Reason: Recheck today's complaints, Re-evaluation by your physician. - Problem is new. - Symptoms have improved. Signatures: Dispatcher [employer] EDHerbert Ballard MD MD rn Kathya Duenas, RN RN ll1 Margarita Dunn RN RN jr10 Corrections: (The following items were deleted from the chart) 17:45 17:44 Rate is 50 beats/min. Rhythm is regular. QRS [place] is Normal. NV interval is rn normal. QRS interval is normal. QT interval is normal. No Q waves. T waves are Normal. No ST changes noted. Clinical impression: Sinus bradycardia. Interpreted by me. Reviewed by me. rn 17:57 16:53 Urine Dipstick-Ancillary ordered. mildred 18:56 18:37 06/26/2020 18:37 Discharged to Home. Impression: Bradycardia, unspecified; jr10 Dehydration; Orthostatic hypotension. Condition is Stable. Discharge Instructions: Bradycardia, Adult, Dehydration, Adult, Orthostatic Hypotension. Forms are Medication Reconciliation Form, Thank You Letter, Antibiotic Education, Prescription Opioid Use. Follow up: Private Physician; When: Tomorrow; Reason: Recheck today's complaints, Re-evaluation by your physician. Problem is new. Symptoms have improved. rn
--- NOTE | 2020-06-26 19:08 | RAD REPORT ---
EXAM DESCRIPTION: RAD - Chest Single View - 06/26/2020 6:28 pm CLINICAL HISTORY: low BP, history of atrial fibrillation and tricuspid valve regurgitation COMPARISON: Portable April 27 TECHNIQUE: AP portable chest image was obtained 06/26/2020 6:28 pm . FINDINGS: No focal lung parenchymal process. Interstitial pattern matches comparison. Heart and vasc ulature are normal. No measurable pleural effusion and no pneumothorax. No acute bony abnormality see n. No acute aortic findings suspected. IMPRESSION: No acute cardiopulmonary process. No significant interval change.
[2020-06-26 22:10] VITALS: TEMP 99.8
[2020-06-26 22:12] VITALS: O2SAT 100
[2020-06-26 22:13] VITALS: BP 138/71
--- NOTE | 2020-06-28 05:59 | EKG ---
Test Date: 2020-06-26 Test Time: 17:15:18 Child Development Specialist: DALIA MEASUREMENT RESULTS: Intervals: Rate: 50 IA: 214 QRSD: 86 QT: 460 QTc: 419 [place]: P: 100 IA: 214 QRS: 49 T: 67 INTERPRETIVE STATEMENTS: Sinus bradycardia with 1st degree AV block Otherwise normal ECG Compared to ECG 04/27/2020 09:29:32 First degree AV block now present Atrial fibrillation no longer present Electronically Signed On 06-28-20 05:55:40 CDT by Mingo David
== END 2020-06-26 18:56 | disposition home or self-care (01) ==
LOC: ER 16:26
DX: E86.0 Dehydration (principal); I95.1 Orthostatic hypotension; I07.1 Rheumatic tricuspid insufficiency; Z88.1 Allergy status to other antibiotic agents
CPT/HCPCS: 93005 ×2; 85025; 80048; 36415; 84145; 71045; 96360; 99284; J7040

== ENCOUNTER 2020-09-26 07:57 | Emergency (ER) | payer OTHER ==
--- OUTSIDE RECORDS SUMMARY | 2020-09-26 08:22 | XMS REPORT | Continuity of Care Document ---
:1935 Author Organization [facility] t Address [address] [place] [address] Care Team Providers Name Role Phone Asked, Given Primary Care Physician Unavailable Paty CHAMBERS, Alex Attending Clinician Torsten Solano MD Attending Clinician Payers Payer Name Policy Type Policy Effective Date Expiration Date Sour ce Number UHC MEDICAREUHC [id number] 2019 [place] [employer] MEDICARE 00:00:00 [place] [id number]-PresentPPO Problems Condition Condition Condition Status Onset [...] 00 s to drug levoflox DA Active [place] [facility]- [place] 00:00: [facility] Social History Social Habit Start Date Stop Date Quantity Comments Source Sex Assigned At [facility] ethodist Alcohol intake 2017-01-16 2017-01-16 Current drinker [place] on [place] 00:00:00 00:00:00 of alcohol (finding) Smoking Status Start Date Stop Date Source Never smoker [facility] Medications Ordered Filled Start Stop Current Ordering [...] 2020-0 Yes 10mg QD Take 10 mg [facility] (LEXAPRO) 8-05 by mouth Meth perez [...] 14:41: mouth st tablet 00 daily. omega-3 2019-0 Yes 1g Q.5D Take 1 g [place] acid ethyl 8-05 by mouth 2 Met hodi esters 14:41: (two) st (LOVAZA) 1 00 times a gram day. capsule calcium 2019- Yes 1{tbl} QD Take 1 [place] carbonate-v 8-05 tablet by Met hodi itamin D3 14:41: mouth st 250-125 00 daily. mg-unit tablet metoprolol Yes 25mg Q.5D Take 25 mg [place] tartrate 6-01 by mouth 2 Metho di (LOPRESSOR) 12:11: (two) st 25 MG 15 times a tablet day. escitalopra Yes 10mg QD Take 10 mg [facility] m (LEXAPRO) 6 by mouth Meth perez 10 MG 12:11: daily. st tablet 15 traZODone Yes 100mg QD Take 100 Tamiko ston (DESYREL) 6-01 mg by Methodi 100 MG 12:11: mouth st tablet 15 nightly. lidocaine Yes 1{patch Q24H Place 1 [place] (LIDODERM) 6-01 } patch on Metho di 5 % [...] Source Systolic blood 2020-05-23 14:38:00 103 mm[Hg] [place] pressure Diastolic blood 2020-05-23 14:38:00 56 mm[Hg] [place] on [place] pressure Heart rate 2020-05-23 14:38:00 49 /min Madhu Mariscal Respiratory rate 2020-05-23 14:38:00 20 /min Lexa [place] Body height 2020-05-23 14:38:00 175.3 cm Madhu Mariscal Body weight 2020-05-23 14:38:00 72.576 kg Madhu Mariscal BMI 2020-05-23 14:38:00 23.63 kg/m2 Madhu Mariscal Oxygen saturation in 2020-05-23 14:38:00 97 /min Madhu Mariscal Arterial blood by Pulse oximetry Procedures Procedure Date / Time Performed Performing Clinician [facility] e CARDIAC MRI VALVE 2020-05-30 10:40:07 Dane Solano La thodist ASSESSMENT W CONTRAST POC CREATININE 2020-05-23 14:40:00 Dane Solano Meth odist ESTIMATED GFR 2020-05-23 14:40:00 Dane Solano Meth odist HEMATOCRIT 2020-05-23 14:30:00 Dane Solano Meth odist Plan of Care Planned Activity Planned Date Details Comments Source Future Scheduled 2020-05-19 INFLUENZA VACCINE [place] n [place] Test 00:00:00 [code = INFLUENZA VACCINE] Future Scheduled 2001 65+ PNEUMOCOCCAL Madhu [facility] Test 00:00:00 VACCINE (1 of 1 - PPSV23) [code = 65+ PNEUMOCOCCAL VACCINE (1 of 1 - PPSV23)] Future Scheduled 1986 SHINGLES VACCINES (#1) [place] Test 00:00:00 [code = SHINGLES VACCINES (#1)] Encounters Start End Encounter Admission Attending Care Care Encounter Source Date/Time Date/Time Type Type Clinicians Facility Department ID 2020-09-11 2020-09-11 SERGIO Lyman [id number] 15:17:06 17:04:54 Visit Marco Gao [id number] Meg [id number] [place] [id number] nal 2 Building 2020-05-23 2020-05-23 Outpatient [facility] [id number] [place] 00:00:00 00:00:[address] DANE [address] 2020-05-23 2020-05-23 Outpatient [facility] [id number] [address] [place] 00:00:00 00:00:00 DANE [address] Results Test Description Test Time Test Comments Results Result Sourc e Comments Cardiac mri 2020-05-19 Interface, Radiology [facility] valve assessment 5 Results In - Method ist w contrast 11:55:00 06/02/2020 11:55 AM CDT [facility] [place] CMR Report Name: ANDI SMILEY : 1935 [...] | Normal/Hyper | None | | || [place] | Normal/Hyper | None | | |+ [...] 0 %SCAN INFO =GENERAL ---- SCANNER ---- AEROBICS INSTRUCTOR: SIEMENS MODEL: Skyra_fit PULSE SEQUENCES: SSFP cine, 2D LGE single-shot, Pre-contrast T1 mapping, Post-contrast T1 mapping, Phase contrast imaging, HASTE morphology, Bright-blood SSFP morphology, 3D contrast enhanced MRA CONTRAST AGENT ----- TYPE: Dotarem LOT NUMBER: [id number] EXPIRATION DATE: 2023-06-18 00:00:00 GD CONCENTRATION: 0.5 M VOLUME ADMINISTERED: 22 ml DOSAGE: 0.15 mmol/kg SERUM CREATININE: 1.1 mg/dL GFR: 50.42 ml/min/1.73m2 CREATININE DATE: 2020-05-23 00:00:00 SEDATION ---- SEDATION USED?: No SETUP ---- SCAN TYPE: Both PATIENT TYPE: Outpatient LOCATION: [facility] INCOMPLETE SCAN: No REASON(S) FOR SCAN: Eval [place] valve(s) REFERRING PHYSICIAN: Dane Solano MD ATTENDING PHYSICIAN: Dane Solano MD TECHNICIANS: 1) Chrissie Murrell =Patient Account [id number] Codes 54612, 05031, [id number] Codes I34.0, I36.1, R93.1ADDITIONAL NOTES =AO 55, LVOT 61 (used), PA 62 (no significant direct GA)MRMR RVol = LVSV 93 - LVOT FF 61MR RF = RVol/(LVSV-AR)RVol (mL) 32RF (%) 34%TRRVol = RVSV 110 - PA FF 62 TR TF = RVol/(RVSV-GA)" TR RVol (mL) 48RF (%) 44%GA RVol (mL) 1RF (%) 2%Report generated by [employer], a product of [employer] Hematocrit 2020-05-23 15:38:45 Test Item Value Reference Range Interpretation Comme nts HCT (test code = 4544-3) 28.4 % 37-47 L Lab Interpretation (test code = 96904-9) Abnormal [place] [facility] [id number] 14:44:08 Test Item Value Reference Range Interpretation Comments POC creatinine (test 1.1 mg/dl 0.5-0.9 H Operato r Name: code = 33735-5) PaulineDevic e ID: [id number] Lab Interpretation Abnormal (test code = 95995-2) [place] [facility] [id number] 14:44:08 Test Item Value Reference Range Interpretation Comments Estimated GFR (test 46 mL/min/1.73 m2 Abimbola Tee cramer Units code = 34930-1) Interpretati onG1 >=90 Kateryna l or highG2 60-89 Mildly decrease dG3a 45-59 Mil dly to moderately decr bxsedX3w 30-44 Moderately to s everely decreasedG4 15-29 Severe ly decreasedG5 <15 Kidney joel lureThe eGFR was calcul ated using the Chron Kidney Disease Epidemiology Collaboration ( CKD-EPI) equation. Interpretation is based on recommendati ons of the National Ki dney Foundation-Kidn ey Disease Outcome s Quality Initiat [place] (NKF-KDOQI) pub lished in 2013. Lab Interpretation Abnormal (test code = 37269-2) [place]- MRI L-SPINE W/O [id number] 13:16:00 Patient Name: ANDI SMILEY Unit No: [id number] EXAMS: CPT CODE: [id number] MRI L-SPINE W/O CONT 34958 TECHNIQUE: Multiplanar, multisequence MRI examination performed of [...] Reported and signed by: Bartolo Brumfield M.D. [facility] NAME: ANDI SMILEY [address] [facility] PHYS: Lobo Villalba MD : 1935 AGE: 84 SEX: F [place], [place] [address] LOC: Y.MRI PHONE #: [phone] EXAM DATE: 12/02/2019 STATUS: DEP CLI FAX #: [phone] RAD #: D/C DT PAGE 1 Signed Report (CONTINUED) Patient Name: ANDI SMILEY Unit No: [id number] EXAMS: CPT CODE: [id number] MRI L-SPINE W/O CONT 88930 <Continued> CC: Richi Sanchez M.D. Technologist: AMRIK FORD, MRI Transcribed D/ (1316) [facility]: ANDI SMILEY [address] [place] [address] PHYS: Lobo Villalba MD : 1935 AGE: 84 SEX: F [place] [address] LOC: Y.MRI PHONE #: [phone] EXAM DATE: 12/02/2019 STATUS: DEP CLI FAX #: [phone] RAD #: D/C DT PAGE 2 Signed Report Patient Name: ANDI SMILEY Unit No: [id number] EXAMS: CPT CODE: [id number] MRI L-SPINE W/O CONT 03610 <Continued> Orig Print D/T: S: 12/05/2019 (1320) [facility] NAME: ANDI SMILEY [address] [place] [address] PHYS: Lobo Villalba MD : 1935 AGE: 84 SEX: F [place] [address] LOC: Y.MRI PHONE #: [phone] EXAM DATE: 12/02/2019 STATUS: DEP CLI FAX #: [phone] RAD #: D/C DT PAGE 3 Signed Report
--- OUTSIDE RECORDS SUMMARY | 2020-09-26 08:23 | XMS REPORT | Summary of Care ---
:1935 Author Organization [facility] Address [address] [place] [address] Care Team Providers Name Role Phone Marco Campos MD Primary Care Provider Reason for Referral Other (Routine) Status Reason Specialty Diagnoses / Referred By Referred To Contact Procedures Contact New Request Diagnoses Leg weakness, bilateral Denise, Paty Lemus Howard Procedures Discharge Follow-up: Specialty Provider MARCO IRENE; 4-6 Weeks MD Alex MD [address] [place] [phone] Phone: Phone: (Routine) Status Reason Specialty Diagnoses / Referred By Referred To Procedures Contact Contact New Request Diagnoses Leg weakness, bilateral Denise, Dmitri Lemus Paul Procedures Discharge Follow-up: PCP MARVIN CAMPOS; 3-5 Days MD Marco MD [address] [place] [address] [address], [place] [address] [place] [address] Phone: [phone] Phone: Fax: (Routine) Status Reason Specialty Diagnoses / Referred By Referred To Procedures Contact Contact New Request Physical Therapy Diagnoses Leg weakness, bilateral Shaltoni, Procedures CONSULT/REFERRAL PHYSICAL THERAPY MD Mariah [address] [place] [address] (Routine) Status Reason Specialty Diagnoses / Referred By Referred To Procedures Contact Contact New Request Occupational Diagnoses Leg weakness, bilateral Shaltoni, Therapy Procedures CONSULT/REFERRAL OCCUPATIONAL THERAPY MD Mariah [address] [place] [address] Radiology Services (CARMITA) Status Reason Specialty Diagnoses / Referred By Referred To Procedures Contact Contact New Request Diagnostic Diagnoses TIA (transient ischemic attack) Darcie Simon MD Radiology Procedures XR BONE SURVEY [address] [place] [address] (Routine) Status Reason Specialty Diagnoses / Referred By Referred To Procedures Contact Contact New Request EEG Diagnoses TIA (transient ischemic attack) Darcie Simon MD Procedures Electroencephalogram (EEG) - Duration of test: 20-[address] [place] [address] MRI/CAT Scan (CARMITA) Status Reason Specialty Diagnoses / Referred By Referred To Procedures Contact Contact New Request Diagnostic Diagnoses TIA (transient ischemic attack) Darcie Simon MD Radiology Procedures MR STROKE ANGIOGRAM NECK W CONTRAST [address] [place] [address] MRI/CAT Scan (Routine) Status Reason Specialty Diagnoses / Referred By Referred To Procedures Contact Contact New Request Diagnostic Diagnoses TIA (transient ischemic attack) Darcie Simon MD Radiology Procedures MR STROKE ANGIOGRAM HEAD WO CONTRAST [address] [place] [address] MRI/CAT Scan (CARMITA) Status Reason Specialty Diagnoses / Referred By Referred To Procedures Contact Contact New Request Diagnostic Diagnoses TIA (transient ischemic attack) Darcie Simon MD Radiology Procedures MR STROKE BRAIN WO CONTRAST [address] [place] [address] (Routine) Status Reason Specialty Diagnoses / Procedures Referred By Marlon casey To Contact Contact New Request Cardiology Diagnoses TIA (transient ischemic attack) Darcie Simon MD Procedures STROKE Protocol - Echocardiogram Routine with Doppler Color [address] [place] [address] MRI/CAT Scan (STAT) Status Reason Specialty Diagnoses / Referred By Referred To Procedures Contact Contact New Request Diagnostic Diagnoses Malaise Pili Fierro Radiology Procedures CT Head W/O Contrast J, DO [address] [place] [address] Radiology Services (STAT) Status Reason Specialty Diagnoses / Referred By Referred To Procedures Contact Contact New Request Diagnostic Diagnoses Malaise Pili Fierro Radiology Procedures Chest 1 View J, DO [address] [place] [address] Reason for Visit Reason Comments Weakness Auth/Cert Status Reason Specialty Diagnoses / Referred By Referred To Procedures Contact Contact Emergency Medicine [facility] Em ergency Dept [address] [place] [address] Fax: Encounter Details Date Type Department Care Team Description 08/19/2020 - Emergency Transplant/Gynecolog Vivek Fierro J, DO [address] [place], [place] [id number] TIA (transient 08/20/2020 y/Oncology (DC 9D) Darcie Simon MD [address] [place] [address] ischemic attack) [address] [place] [address] Allergies Active Allergy Reactions Severity Noted Date Comments Ciprofloxacin Rash 08/19/2020 documented as of this encounter (statuses as of 08/20/2020) Medications Medication Sig Dispensed Refills Start Date End Date Status metoprolol succinate Take 25 mg by 0 Active XL 25 mg 24 hr tablet mouth daily. olmesartan (BENICAR) Take 20 mg by 0 Active 20 mg tablet mouth. furosemide (LASIX) 20 Take 20 mg by 0 Active mg tablet mouth daily. Levothyroxine 100 mcg Take by mouth. 0 Active capsule apixaban (ELIQUIS) 5 Take 5 mg by 0 Active mg tablet mouth 2 (two) times daily. traZODone 100 mg Take 100 mg by 0 Active tablet mouth at bedtime. montelukast Take 10 mg by 0 Acti ve (SINGULAIR) 10 mg mouth. tablet ALPRAZolam (XANAX) Take 0.25 mg by 0 Active 0.25 mg tablet mouth as needed for Other (anxiety). atorvastatin 40 mg Take 1 tablet by 30 tablet 2 08/20/2020 Active tabletIndications: Leg mouth at bedtime weakness, bilateral for 90 days. documented as of this encounter (statuses as of 08/20/2020) Active Problems Problem Noted Date Leg weakness, bilateral 08/20/2020 TIA (transient ischemic attack) 08/19/2020 documented as of this encounter (statuses as of 08/20/2020) Immunizations Name Administration Dates Next Due Influenza High Dose Quad 07/20/2020 documented as of this encounter Social History Tobacco Use Types Packs/Day Years Used Date Never Assessed Sex Assigned at Date Recorded Not on file COVID-19 Exposure Response Date Recorded In the last month, have you been in contact with No / Unsure 08/19/2020 9:11 AM HAMMERER someone who was confirmed or suspected to have Coronavirus / COVID-19? documented as of this encounter Last Filed Vital Signs Vital Sign Reading Time Taken Comments Blood Pressure 127/78 08/20/2020 2:13 PM HAMMERER Pulse 66 08/20/2020 11:57 AM HAMMERER Temperature 36.8 C (98.3 F) 08/20/2020 11:57 AM HAMMERER Respiratory Rate 18 08/20/2020 4:21 AM HAMMERER Oxygen Saturation 94% 08/20/2020 11:57 AM HAMMERER Inhaled Oxygen Concentration - - Weight 70.3 kg (154 lb 15.7 oz) 08/20/2020 2:00 PM HAMMERER Height 175.3 cm (5' 9") 08/20/2020 2:00 PM HAMMERER Body Mass Index 22.89 08/20/2020 2:00 PM HAMMERER documented in this encounter Discharge Instructions Cristel Sargent RN - 08/20/2020 AttachmentsThe following attachments cannot be sent through Care Everywhere. Falls, Preventing, Exercises to Improve Balance, Flexibility, Strength, and Staying Power (Argentine)Good Positioning After a Stroke (Argentine)documented in this encounter Progress Notes Fany Zacarias - 08/20/2020 4:30 PM CSTThe chemistry faculty member conducted a follow up visit with the patient. The patient validated the parish director medicare sales came by and provided the requested sacrament. The patient did not have any additional spiritual concerns at this time.The chemistry faculty member remains available to provide pastoral support in the future if needed. Fany Zacarias M.Div., BCC Instructional Leader, Pastoral Care [phone] signed by Fany Zacarias at 08/20/2020 5:00 PM HAMMERER Tabitha Gustafson SW - 08/20/2020 3:03 PM HAMMERER Care Management Discharge Disposition Note (DCDN) 5-2-1 Interventions: Disease specific education;Intensive medication reconciliation/management;Teachback;Home visit/home health referral;Clear discharge plan;Follow-up phone calls 5-2-1 Providers: Induction Machine Setter/Barrel Rifler Button;Nurse 5-2-1 Patient Capacity Improvements: Avoidance of adverse events/readmission Discharge Plan for ongoing care and services: Home/Caregiver Home;Home Health () Patient Choice completed for referred services: Discussed with patient/patients family involved in decision making: Patient or family caregiver understands, and agrees with discharge plan Patient's family or support contact: iris Navarro [phone], Alma Jiang [phone] Discharge Plan: Home/Caregiver Home;Home Health () DME location: [facility] [phone] -bsc Other DME location: Durable Medical Equipment: Home Health location: Discharge location(s): [address] [place] [address] [place] [address] Community resources/referrals made or provided to patient: No Resources/Referrals: Mental Status: Alert & Oriented to Person,Place & Time Psychosocial issues and/or concerns resulting in patient being a high risk for re-admission: Manage ADL indepentdly: Yes Living Arrangement: Home: single story Other living arrangement: Address of living arrangement: [address] [place] [address] [place] [address] Funding Resources: Commercial Has patient been referred to [facility]/MedData? Nursing informed of discharge plan: No CHP referral sent? No CM medication request completed (if appropriate): No PCP: Yes Marvin Wells Transportation: Private Vehicle iris Navarro [phone], Alma Apolinar [phone] Prior authorization obtained for ambulance: Authorization number: CPT code: Discharge Medications Will the patient be able to obtain his medications? Yes Does the patient have transportation to to obtain the prescription medications? Yes CM Medication Request completed (if appropriate): Yes Name of RN informed: Cristel Expected discharge date: 08/20/2020 Time: Additional Information: Patient to contact CHRISTIE with her home health choice once she dc and returns home CM/SW Name & Contact number: CHRISTIE Redman Ph. [phone] The following information has been provided to the facility noted above: reason for the patient discharge or transfer; patients physical and psychosocial status; summary of care, treatment, servicesprovided to patient; and the patient progress toward goals. Tabitha Dickinson SW - 08/20/2020 11:33 AM CSTCare Management Social Functional Assessment Patient Name: Scarlett Garrett Age: [age] year old Sex: female Previous admit date: N/A Current diagnosis and co-morbidities: No admission diagnoses are documented for this encounter. Readmission Questions: Was patient discharged from any acute care hospital within the last 30 days: No Social Functional Assessment: Primary language spoken/preferred: Argentine Mental Status: Alert & Oriented to Person,Place & Time Information given by: Self Patient's support system: Child Name and number of support system: iris Navarro [phone], Alma Jiang [phone] Primary Substation Manager: Self MPOA: No Living Arrangement: Home: single story Address of living arrangement : [address] [place] [address] [place] [address] Persons living in home: Self(patient assured CHRISTIE that she has 11/05 supervision and asst via family) Baseline functional status- ambulation: Requires minimal to moderate assistance Functional status-baseline personal care: Requires minimal to moderate assistance Baseline functional status- driving: Dependent Baseline functional status- grocery shopping: Requires minimal to moderate assistance Functional status-baseline housekeeping: Requires minimal to moderate assistance Functional status-baseline meal prep: Requires minimal to moderate assistance Current functional status same as prior: Yes Do you have a PCP?: Yes Name of PCP: Marvin Campos Home Health Care Agency: No Provider Services: No DME Company: No Equipment: Rollator;Cane;Walker;Shower Chair;Grab bars Hemodialysis: No Community resources utilized: None Funding Resources: Commercial Prescription coverage plan: Commercial Pharmacy where meds are filled: ([facility]) Anticipated services prior to disharge: Continue Medical Eval Expected mode of discharge transportation: Same as support system Additional info required for discharge planning: Pending medical evaluation Recommended discharge plan: Home with new Home Health;DME Referral;Home Any issues or concerns with obtaining/affording your medications at home: no. Are you or your support system able to picket labor union medications at discharge: yes. Describe: no issues. SFA Complete: Social Functional Assessment complete: Yes Alcohol Use Screening (AUDIT-C) How often do you have a drink containing alcohol?: (not addressed at this time) Role of Care Management explained. SIVAKUMAR Downs-IPR [phone] [address] [address] Care Mgmt Dept rFany garcia - 08/20/2020 11:30 AM CSTThe chemistry faculty member responded to a call for sacramental support. The patient is Muslim and she relies onher randa as a primary source of strength. The patient's daughter and son-in-law were also present in the room. The patient's son-in-law is a deacon with the Muslim religion and he requests sacramental support for the patient. The chemistry faculty member contacted the local [place] for the sacramental support. The [place] director medicare sales will attempt to visit with the patient within the day. The chemistry faculty member will attempt to follow up later with the patient to confirm the sacrament was received. The chemistry faculty member remains available to provide pastoral support in the future if needed. Fany Zacarias M.Div., BCC Instructional Leader, Pastoral Care [phone] signed by Fany Zacarias at 08/20/2020 12:02 PM HAMMERER documented in this encounter Consult Notes Tabitha Gustafson SW - 08/20/2020 11:34 AM CSTAssociated Order(s): CONSULT EXECUTIVE VP-ADULT Tabitha Gustafson SW COMMERCIAL STRIPPER Progress Notes Signed Date of Service: 08/20/2020 11:33 AM Creation Time: 08/20/2020 11:33 AM []Karie copied text []Briana for details Care Management Social Functional Assessment Patient Name: Scarlett Garrett Age: [age] year old Sex: female Previous admit date: N/A Current diagnosis and co-morbidities: No admission diagnoses are documented for this encounter. Readmission Questions: Was patient discharged from any acute care hospital within the last 30 days: No Social Functional Assessment: Primary language spoken/preferred: Argentine Mental Status: Alert & Oriented to Person,Place & Time Information given by: Self Patient's support system: Child Name and number of support system: daughters Kaela Navarro [phone], Alma Jiang [phone] Primary Substation Manager: Self MPOA: No Living Arrangement: Home: single story Address of living arrangement : [address] [place] [address] Persons living in home: Self(patient assured SW that she has 11/05 supervision and asst via family) Baseline functional status- ambulation: Requires minimal to moderate assistance Functional status-baseline personal care: Requires minimal to moderate assistance Baseline functional status- driving: Dependent Baseline functional status- grocery shopping: Requires minimal to moderate assistance Functional status-baseline housekeeping: Requires minimal to moderate assistance Functional status-baseline meal prep: Requires minimal to moderate assistance Current functional status same as prior: Yes Do you have a PCP?: Yes Name of PCP: Marvin Campos Home Health Care Agency: No Provider Services: No DME Company: No Equipment: Rollator;Cane;Walker;Shower Chair;Grab bars Hemodialysis: No Community resources utilized: None Funding Resources: Commercial Prescription coverage plan: Commercial Pharmacy where meds are filled: ([facility]) Anticipated services prior to disharge: Continue Medical Eval Expected mode of discharge transportation: Same as support system Additional info required for discharge planning: Pending medical evaluation Recommended discharge plan: Home with new Home Health;DME Referral;Home Any issues or concerns with obtaining/affording your medications at home: no. Are you or your support system able to picket labor union medications at discharge: yes. Describe: no issues. SFA Complete: Social Functional Assessment complete: Yes Alcohol Use Screening (AUDIT-C) How often do you have a drink containing alcohol?: (not addressed at this time) Role of Care Management explained. Kiarra Gustafson, LBSW-IPR [phone] [address] [place] [address] Care Mgmt Dept adha Castillo - 08/20/2020 10:43 AM CSTAssociated Order(s): CONSULT FOOD AND NUTRITION Medical Nutrition Therapy- Consult Note: Reason For Consultation: Physician consult: Stroke Protocol History of Present Illness: Scarlett Garrett is a 85 year old female right handed with the following stroke factors: Age, A fib, cardiac history who presented with CC of syncopal episodes, falls, unsteady gait and weakness. PMH/PSH: History reviewed. No pertinent past medical history. History reviewed. No pertinent surgical history. GI and Nutrition Related Findings: Symptoms: N/A Difficulty: N/A GI tract alteration: N/A Alternative means of nutrition: N/A General: N/A Medications: I have reviewed the medications currently ordered in the EMR located under the medications andMAR tabs. Current medications include: Current Facility-Administered Medications: NaCl 0.9% (NS) IV infusion 1,000 mL, 1,000 mL, IV Infusion, CONTINUOUS, Manish Moncada, MBJACINTA sodium chloride tablet 0.5 g, 500 mg, Oral, TID MEALS, Dennis Murray MD ALPRAZolam (XANAX) tablet 0.25 mg, 0.25 mg, Oral, QHSPRN, James Ball MD, 0.25 mg at 08/19/20 2303 apixaban (ELIQUIS) tablet 5 mg, 5 mg, Oral, BID, GoBuddy heredia, LEONABS, 5 mg at 08/20/20 0900 atorvastatin (LIPITOR) tablet 40 mg, 40 mg, Oral, QHS, GoAmrit herediau, MBBS furosemide (LASIX) tablet 20 mg, 20 mg, Oral, DAILY, GoBuddy heredia, MBBS, 20 mg at 08/20/20 0900 guaiFENesin (FENESIN IR) tablet 200 mg, 200 mg, Oral, Q6HPRN, Terence Lopez, James Easton MD, 200 mg at 08/19/20 2303 levothyroxine (SYNTHROID) tablet 100 mcg, 100 mcg, Oral, QAM-0600, Gogia, Buddy, MBBS, 100 mcg at 08/20/20 0900 traZODone (DESYREL) tablet 100 mg, 100 mg, Oral, QHS, Gogia, Buddy, MBBS, 100 mg at 08/19/20 2303 Lab and Medical Test Results: NA (mmol/L) Date Value 08/20/2020 123 (L) K (mmol/L) Date Value 08/20/2020 3.8 CALCIUM (mg/dL) Date Value 08/20/2020 8.8 CL (mmol/L) Date Value 08/20/2020 91 (L) BUN (mg/dL) Date Value 08/20/2020 14 CREATININE (mg/dL) Date Value 08/20/2020 0.82 GLUCOSE (mg/dL) Date Value 08/20/2020 94 CO2 TOTAL (mmol/L) Date Value 08/20/2020 25 ALBUMIN (g/dL) Date Value 08/19/2020 4.1 T PROTEIN (g/dL) Date Value 08/19/2020 7.0 TOTAL BILI (mg/dL) Date Value 08/19/2020 0.9 BILI UNCON (mg/dL) Date Value 08/19/2020 0.6 BILI CONJ (mg/dL) Date Value 08/19/2020 0.0 ALTv (U/L) Date Value 08/19/2020 27 AST(SGOT) (U/L) Date Value 08/19/2020 38 ALK PHOS (U/L) Date Value 08/19/2020 46 Ref. Range 08/19/2020 09:20 CHOL Latest Ref Range: 120 - 200 mg/dL 276 (H) Nutrition Assessment: Age: [age] year old Sex: female Ht: 175.3 cm / 5'9" Ht Readings from Last 3 Encounters: No data found for Ht Current Wt: 70.3 kg/ 155 lb BMI: There is no height or weight on file to calculate BMI. (Normal) IBW for Ht: 65.9 kg +/- 6 kg %IBW: 106% Weight History: Wt Readings from Last 10 Encounters: 08/19/20 70.3 kg (155 lb) Inflammatory Markers: Elevated WBC Current Dietary Order(s): Cardiac (2 gm Sodium, Low Fat, Low Cholesterol) Diet; Texture: Regular. (Only if Dysphagia Screening passed) EMR documented food allergies/intolerance/cultural preferences: No Documented Food Allergies Nutrition & Diet History: Patient reports normal appetite and intake. Denies any recent weight changes. Denies any N/V/D/C, chewing/swallowing difficulties, or food allergies at time of visit. Patient informs her height is 5'9"- updated in her chart. See recommendations below, will continue to follow. Estimated Daily Nutritional Needs: Calories: 1750 kcal/day = 25 kcal/kg current wt Protein: 20 % of kcal need/day = 88 g/day = 1.2 g/kg current wt Fluid: 1750 mL/day or per MD; adjust per acute needs Nutrition Diagnosis: Altered nutrition related lab values related to fat consumption and diet as evidenced by current cholesterol level of 276 Nutrition Plan of Care: Intervention(s): 1. Continue Cardiac Diet (< 2 gm sodium, Low-Fat,Low-Cholesterol) Diet. 2. Monitor intake, weight, and labs daily. . Goal(s): 1. Patient will consume adequate calories and protein to meet > 80% daily estimated needs. D/C Planning: Limit sodium <2 g/day Limit Cholesterol <200 mg/day Try salt free seasonings include paprika, pepper, cumin, basil, oregano..etc. Make sure to read labels at home, remember that 140 mg or less is considered "low sodium" Try to use healthy fats/oils including olive oil, safflower oil, avocado oil, canola oil..etc. Try to reduce intake of fast food items. Look for healthier options when eating out. Nutrition Monitoring and Evaluation: A registered dietitian will f/u as indicated to report nutrition related information and to revise the recommended nutrition intervention(s); please call with questions or concerns, thank-you. Radha Castillo RD, LD Clinical Dietitian RD Office: [phone] signed by Radha Castillo at 08/20/2020 2:13 PM Naomy Plunkett VANNESSA - 08/20/2020 10:00 AM CSTAssociated Order(s): CONSULT SPEECHSpeech-Language Pathology Clinical Swallow Evaluation 08/20/2020 Scarlett Garrett : 1935 Age: [age] year old Sex: female Referring Physician: Buddy Castillo MBBS Date of Referral: 08/19/2020 Reason for Referral: stroke activation (dysphagia, speech-language/cognitive-linguistic) Date of Admission/Onset: 08/19/2020 Time IN/OUT: 5312-7299 SUBJECTIVE: Patient awake/alert; agreeable to evaluation. Multiple family members present at the end of today's session. OBJECTIVE: is being seen for a clinical swallow evaluation. Per H&P, Scarlett Garrett is a 85 year old female with the following stroke factors: Age, A fib, cardiac history who presented with CC of syncopal episodes, falls, unsteady gait, and weakness which prompted stroke activation. MRI negative for acute intracranial abnormality. Pertinent Imaging: Chest 1 View Result Date: 08/19/2020 No acute cardiopulmonary process. Preliminary Report Dictated by Resident: Nita Mayen I, Keith Au MD., have reviewed this study and agree with the above report. Ct Head W/o Contrast Result Date: 08/19/2020 No acute intracranial abnormality. Preliminary Report Dictated by Resident: Nita Mayen I, Norris Treviño MD., have reviewed this study and agree with the above report. Mr Stroke Brain Wo Contrast Result Date: 08/20/2020 No acute intracranial abnormality. Head and neck MRAs are unremarkable. No high- grade stenosis or large vessel occlusion identified. Mr Stroke Angiogram Head Wo Contrast Result Date: 08/20/2020 No acute intracranial abnormality. Head and neck MRAs are unremarkable. No high- grade stenosis or large vessel occlusion identified. Mr Stroke Angiogram Neck W Contrast Result Date: 08/20/2020 No acute intracranial abnormality. Head and neck MRAs are unremarkable. No high- grade stenosis or large vessel occlusion identified. Previous NEWSPAPER REPORTER Services/Swallow History: None identified by chart or reported by patient. History reviewed. No pertinent past medical history. History reviewed. No pertinent surgical history. General Behavior: Alert and Cooperative Hearing: Within Functional Limits for speech Oral Mechanism: Structure: dentate and moist oral mucosa Function: Unremarkable - no facial droop/weakness, no subjective trismus, symmetric labial spread and pucker, lingual protrusion midline with equal lateralization, symmetrical palatal retraction, + dysphonia; slightly weak/breathy, no dysarthria, no apraxia Respiratory Status: room air Orientation/Cognition: - Patient oriented to: person, place, time and situation - Response type: verbal - If verbal, describe speech: clear - Follows 1-step commands: Yes CLINICAL SWALLOW EVALUATION Current Diet Texture/Means of Nutrition: regular-textured diet with thin liquids; passed RN dysphagia screen Swallows on command: Yes Handles Secretions: Yes Volitional Cough: Yes Spontaneous Cough: No PO trials were administered by patient. Patient was provided with multiple bites/sips of thin liquids and chewable solid consistencies with the following observations: Oral Stage: Anterior leakage of bolus (left or right) not observed Pocketing of bolus (left or right) not observed Subjectively Prolonged oral phase not observed Oral residue (left/right/diffuse) not observed Pharyngeal Stage: Subjectively reduced laryngeal elevation not observed Coughing or throat clearing not observed Change in voice quality not observed Multiple swallows subjectively not observed Respiratory sufficiency and coordination: WFL - no increased work of breathing and/or oxygen sats and respiratory rate remained stable Report of globus sensation: No 3 oz water challenge: passed Patient/Family/Staff education: Provided verbally. Patient/Family goal: safe po intake ASSESSMENT/IMPRESSIONS: Scarlett Garrett appears to present with safe, functional swallowing. Patient demonstrated seemingly intact and timely oral phase with no significant oral residue noted. She was coughing prior to PO trials, which she feels is due to allergies, but laryngeal elevation is subjectively adequate upon palpation and no overt s/sx of aspiration were observed with any trials. Note: aspiration cannot be confirmednor r/o at bedside without imaging. Patient did have leukocytosis documented on 08/19 but CXR showed no focal consolidation, she is afebrile (Temp (24hrs), Av.6 C (97.8 F), Min:35.7 C (96.3 F), Max:37.2 C (98.9 F), and MRI was negative for acute stroke. Patient appears to be safe for continued PO diet with swallow precautions as below and completion of instrumental swallow study (i.e MBS) does not appear to be indicated at this time but may be considered if team wishes to r/o aspiration. Also, patient denies any noticeable changes to speech-language/cognition; no dysarthria, aphasia or cognitive-communication deficits observed by NEWSPAPER REPORTER. Patient/family in agreement with all informationdiscussed. Will also discuss findings with primary team. No further acute NEWSPAPER REPORTER service indicated at this time. Prognosis is favorable for safe po intake with adherence to swallow precautions due to above findings. RECOMMENDATIONS/GOALS: 1. Recommend patient continue a regular-textured diet with thin liquids and swallow precautions: sitfully upright/chair and remain upright for 30 minutes after meals 2. No further acute NEWSPAPER REPORTER services indicated at this time, so service is signing off. Please re-consult with MBS if indicated. Thank you. 3. Discharge rec: per PT/OT and medical team - suspect same as prior Naomy Bowen MS, CCC-NEWSPAPER REPORTER Speech Language Pathology Office Number: [id number] Pager: [phone] signed by Naomy Bowen, VANNESSA at 08/20/2020 10:47 AM Babs Cosme OT - 08/20/2020 9:19 AM CSTAssociated Order(s): CONSULT ADULT OCCUPATIONAL THERAPY OT GENERAL EVALUATION Consult received via [employer], EMR reviewed and evaluation completed 08/20/20. Patient referred to occupational therapy for evaluation and treatment per stroke protocol. Patient agreeable to participate in occupational therapy. Discharge Recommendations: Therapy Needs and Potential:- Patient would benefit from continued skilled occupational therapy services to address: Decline in basic activities of daily living, Decline in instrumental activities of daily living, Decline in cognition, Decreased strength and Decreased endurance - Patient demonstrates good potential to improve and meet therapy goals with further skilled occupational therapy services. - Patient appears motivated to improve their B/IADLs and return to their previous level of function. - Patient demonstrates ability to tolerate at least 30-60 minutes of active participation in occupational therapy. - Patient able to follow commands: 1-step Yes, Multi-step Yes, Inconsistencies Yes Challenges to Home Transition:- Requires physical assistance for BADLS - Requires physical assistance for IADLS - Limited caregiver availability - Decreased safety awareness/judgement - Increased risk of falls Equipment Recommendations:Bedside commode I certify that Scarlett Garrett is under my care and that I had a wfch-al-gcoa encounter with this patient on: 08/20/20 . The primary reason for the durable medical equipment: increased risk of falls. Markus recomending that, based on my findings, the following is medically necessary durable medical equipment: 3 in 1 bedside commode. Height: Ht Readings from Last 1 Encounters: No data found for Ht Weight: Wt Readings from Last 1 Encounters: 08/19/20 155 lb (70.3 kg) Duration of need: 99 months. Patient does not have access to regular toilet facilities because he/she is confined to: A single room. PLAN OF CARE: At least 2x/week Precautions: Weight bearing status: WBAT CANDY LE, CANDY UE General: PPE Utilized: Gloves and Surgical mask and Fall Bracing: N/A Current Occupational Performance and/or Treatment: Feeding: Independent Grooming: SBA/Setup UB Bathing: SBA/Setup - bed Bath only LB Bathing: Minimal assist UB Dressing: Modified independent LB Dressing: Minimal assist Simulated Tub/Shower Transfer: CGA Simulated Toilet Transfer: CGA Toileting Hygiene: Reports mod I Functional Mobility: requires SBA for safety with bed mobility per PT and CGA for most transfers - Patient has used jaimie steady with nursing in order to get to restroom Patient/caregiver educated on: Adaptive equipment , ADL training, Fall prevention, Role of OT and Safety awareness Patient left sitting upright in bedside chair with call snyder in reach. Vanessa chair alarm engaged, nursing staff notified. Please, see full evaluation below for more detail. OT EVALUATION: 85 year old female Admit date: 08/19/2020 Date of onset: 08-19-2020 Admit Diagnosis: No admission diagnoses are documented for this encounter. OT Diagnosis: Impaired BADL independence, Impaired IADL independence, Weakness, Activity intolerance, Decreased endurance and Impaired self-care mobility PMH: History reviewed. No pertinent past medical history. PSH: History reviewed. No pertinent surgical history. PAIN: Before assessment: 10/28 After assessment: 10/28 Location: head Pain Management: Patient denies need for pain meds OCCUPATIONAL ROLES/HOME ENVIRONMENT: Home environment: Single story home and Lives alone. 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 professor, Shower chair PERFORMANCE SKILLS/FACTORS: UE Muscle Tone: bilateral WNL UE ROM: bilateral AROM WFL UE Strength: R UE 3+/5 and L UE 3-/5 Hand dominance: right Dexterity/Coordination: bilateral Fine motor skills Intact Endurance - Sitting: Fair+ Standing: Fair - Sitting Balance - Static: Good Dynamic: Good Standing: Balance - Static Fair+ Dynamic: Fair Dizziness: Yes- occasional Skin Integrity: No breakdown noted Sensation: bilateral Intact to light touch Oral Motor: WFL Communication: Able to verbalize needs Yes Other: N/A Vision: WFL Yes Other: reading glasses Hearing: good; no issues reported COGNITION: Orientation: person, place, date/time and situation - however noted that patient required extended time to answer and seemed throughout eval and treatment to be hesitant when answering Follows Commands: 1-step Yes Multi-step Yes Inconsistencies Yes Safety Awareness/Judgment: Lacks insight to deficits PROBLEM LIST: Decreased independence with ADL, Decreased strength/endurance for functional activity and Impaired safety awareness REHAB POTENTIAL/PROGNOSIS: good PATIENT/FAMILY GOALS: "I want to go home for sure" TREATMENT/INTERVENTION PLAN: Patient/Caregivier Education, Equipment recommendations, Daily living activities and Therapeutic exercises GOAL(S): By discharge, patient will increase independence in daily living skills as follows: 1 Patient will perform toilet transfer with modified independence. 2 Patient will perform bathing task versus simulated bathing task with modified independence. 3 Patient will perform LB dressing with modified independence. 4 Patient will complete grooming tasks with modified independence while standing at the sink. 5 Patient will complete toileting hygiene, including clothing management, with modified independence. 6 Patient will increase endurance for functional activity as evidenced by ability to sustain 20 minutes of active participation. 7 Patient/caregiver will verbalize/demonstrate understanding/proficiency in the following home programs: Adaptive equipment , ADL training, Compensatory techniques/adaptive strategies, Energy conservation, Fall prevention, General strengthening, Positioning, Safety awareness and Towel/dowel PATIENT-FAMILY TEACHING Patient provided with preferred teaching of verbal information on Adaptive equipment , ADL training,Fall prevention, Role of OT and Safety awareness. Shows readiness to learn. Verbal instruction teaching provided. Individual is able to read and needs reinforcement of teaching. Babs Verduzco, O.T.R. [phone] pgr. Total Timed Treatment Codes: 24 Min Total Treatment Time: 33 Min Patient Complexity Level Moderate - An occupational therapy evaluation of moderate complexity was completed using the above tests and measures. The following information was obtained: An occupational profile and medical and therapy history, including an expanded review of medical and/or therapy records and additional review of physical, cognitive, or psychosocial history related to current functional performance, Various standardized and non-standardized assessments were used to identify at least 3-5 performance deficits related to physical, cognitive, or psychosocial skills that result in activity limitations and/or participation restrictions and Clinical decision making of moderate analytic complexity, which includes an analysis of the occupational profile, analysis of data from detailed assessment(s), and consideration of several treatment options. Patient may present with comorbidities thataffect occupational performance. Minimal to moderate modification of tasks or assistance (e.g., physical or verbal) with assessment(s) is necessary to enable patient to complete evaluation component. Sangeeta Obrien PT - 08/20/2020 8:44 AM HAMMERER Associated Order(s): CONSULT ADULT PHYSICAL THERAPY Patient agreeable to working with physical therapy. Patient met Semi reclined in bed. PHYSICAL THERAPY EVALUATION Consult received, chart reviewed and evaluation complete this date. Patient is referred to PT for evaluation and treatment. Patient is a 85 year old female who presents to hospital for stroke activation protocol. Discharge Recommendations: Therapy Needs and Potential: Patient would benefit from continued physical therapy services to address: decline in transfers decline in gait and/or balance decreased strength decreased endurance Patient demonstrates good potential to improve and meet therapy goals with further physical therapy services. Patient appears motivated to improve their functional mobility and return to their previous levelof function. Patient demonstrates ability to tolerate atleast 30-60 minutes of physical therapy with active participation. Patient presents with the following functional outcome scores: Timed Up & Go (TUG): 75/sec indicating High Fall risk Challenges to Home Transition: increased risk of falls Equipment recommendations: Patient has her own RW Current Functional Status and/or Treatment:Functional mobility training, Transfer training, Gait training, Patient/Family/Caregiver education, Therapeutic exercise and Neuromuscular Re-Education Bed Mobility: Supine-sit: Independent Sit to supine: Independent. Transfers: Sit to stand: CGA using Rolling Walker, patient needed verbal cues for hand placement and proper body mechanics for safety. Ambulation: Assisted patient with ambulation as follows: 30 feet using Rolling Walker and Minimal assist Patient presenting with Step-to gait pattern. . Therapeutic exercise: patient educated in Deep breathing, Fall prevention, General strengthening, Positioning, Relaxation/breathing techniques and Safety awareness., instructed patient in the following: ankle pumps, heelslides, hip abduction/adduction, long arc quads, seated marching, heel raises, patient/caregiver instructed to perform HEP 1-2 times per day, 10-15 repetitions., patient/caregiver demonstrates understanding of instructions. After session, patient Up in chair. Call button provided. Nurse notified. PLAN OF CARE: At least 2 times per week, once or twice a day (while in hospital) per patient's tolerance and medical needs. See below for complete details. Admit Date: 08/19/2020 Hospital Diagnosis:No admission diagnoses are documented for this encounter. PT Diagnosis: Difficulty walking, Weakness and Abnormality of gait and balance Weight Bearing Precaution: NA General Precautions: PPE used:Gloves and Surgical mask, General, Fall, Bracing/Cast present or required:N/A PMH: History reviewed. No pertinent past medical history. PSH: History reviewed. No pertinent surgical history. Prior Living Situation: lives alone and house DME: Rolling Walker Prior level of Mobility: house hold ambulation, ambulates with Rolling Walker , but has fallen 4 times in the past 10 ndays Subjective: "I feel really weak" Patient/Family Goals: To go home Patient/Family verbalizes understanding of condition: Yes PAIN: denies pain COMMUNICATION Primary Language: Argentine Able to Verbalize needs: Yes Vision:good; no issues reported Hearing:good; no issues reported ORIENTATION/COGNITION: Oriented to: person, place and situation Awake: Yes Alert: Yes Dizzy: No Follows Commands: Yes 1-Step Yes Multi-Step Yes Inconsistent: No NEUROLOGICAL Light Touch: within functional limits bilateral LE Heel to hawkins: WFL Tone: intact BALANCE: Sitting: Static: Good Dynamic: Good Standing: Static: Fair+ Dynamic: Fair RANGE OF MOTION: within functional limits bilateral LE STRENGTH: 5/5 (Normal) to right LE, 4/5 (good) to right LE ENDURANCE: Fair, Room air SKIN INTEGRITY: intact PROBLEM LIST: Decline in gait, Decline in transfers, Decreased strength, Decreased endurance, Decreased balance and Safety awareness deficits ASSESSMENT: Patient is a 85 year old female seen secondary to the above listed diagnosis. Patient would benefit from continued PT to address the above listed deficits to maximize independence and safety with functional mobility. Rehabilitation Potential: good Goals: The following goals are to maximize independence and safety with functional mobility to eventually return to prior living situation and prior functional status. 1. Sit to stand: Modified independent using Rolling Walker 2. Modified independent with ambulation, Feet: 300 using least assistive device. 3. Demonstrate or verbalize understanding of home exercise program in order to continue with their rehab on their own. Treatment Plan: Gait training, Therapeutic exercise, Transfer training, Balance training, Safety education, patient/caregiver education and Neuromuscular Re-Education PATIENT EDUCATION: Patient provided with preferred teaching of verbal information on role of PT, plan of care, HEP. Shows readiness to learn. Verbal instruction teaching provided. Individual is able toread and verbalizes understanding of teaching provided. Total Time Tx Codes in Minutes: 32 min Total Treatment Time in Minutes: 34 min Sangeeta Little PT [facility] Pager no: [phone] A physical therapy evaluation of moderate complexity was completed based on meeting the criteria below: A history of present problem with at least 1-2 personal factors (includes environmental factors) and/or comorbidities that impact the plan of care An examination of body systems using standardized tests and measures in addressing at least 3 or more elements from any of the following: body structures and functions, activity limitations and/or participation restrictions An evolving clinical presentation with changing characteristics ERER documented in this encounter ED Notes Edda Vega RN - 08/19/2020 9:12 AM CSTPatient arrived via [facility] with reports of weakness for an unknown amount of time reports that "it been a while for a couple weeks" and that she has been trying to get into a neurologist Patient reporting weaker feeling on the left leg and reports that she is unsure what today is patient answering other orientation question correctly BGL in triage: 115 Pili Amaya DO - 08/19/2020 9:[address] [facility] Emergency Department Note Patient Name: Scarlett Garrett Date of : 1935 85 year old female Treatment Room: Room/bed info not found Primary Care Physician: Trina Soria Patient Escorted by: Self [9] Mode of Arrival: EMS - Central [45] EMS Treatment Prior to ED Arrival: [employer] [facility] treatment: None Travel and Exposure Screening: Symptoms Does patient have any of these symptoms?: (not recorded) Exposure Screening Has patient had contact with someone with a communicable disease in the last month?: (not recorded) Diseases exposed to:: (not recorded) Is Patient ?: (not recorded) Exposure Date: (not recorded) Chief Complaint: Chief Complaint Patient presents with Weakness History of Present Illness: Patient presents for eval for malaise for several days/weeks. No cp or sob. Has had a cough and has been using robitussin. No n/v. No abd pain. Lives by herself but her daughter and son-in-law arevisiting right now. States she did have a tele-health visit with her PCP this week but does not recall if they discussed her weakness. Has not had anything to eat/drink yet. Has h/o a fib and is on eliquis. According to family she woke up at 0600 and was resting at the kitchen table. Family went back to sleep and got up again at 0730 and found her essentially in the same position at the kitchen table. They report her difficult to arouse and then with some garbled speech. Called 911 and had her brought for eval. Past Medical History/Immunizations: History reviewed. No pertinent past medical history. Tetanus received in last 5 years: Unknown Childhood immunizations: Up-to-date Allergies: Allergies Allergen Reactions Ciprofloxacin Rash Past Social History: Substance & Sexual Activity No substance use or sexual activity history on file. Past Surgical History: History reviewed. No pertinent surgical history. Review of Systems: Review of Systems Constitutional: Negative for chills and fever. Respiratory: Negative for shortness of breath. Cardiovascular: Negative for chest pain. Gastrointestinal: Negative for abdominal pain, nausea and vomiting. Genitourinary: Negative for dysuria. Musculoskeletal: Negative for arthralgias, neck pain and neck stiffness. Skin: Negative for wound. Neurological: Positive for weakness. Negative for dizziness. Psychiatric/Behavioral: Negative for agitation. Physical Exam: ED Triage Vitals Weight 08/19/20 0900 69.4 kg (153 lb) Actual or estimated -- Height -- BP 08/19/20915 93/64 Pulse 08/19/20915 54 Resp 08/19/20915 20 Temp 08/19/20915 36.2 C (97.2 F) Temp src -- SpO2 08/19/20915 100 % Measured on 08/19/20915 Room air Physical Exam Vitals signs and nursing note reviewed. Constitutional: Appearance: Normal appearance. She is normal weight. HENT: Head: Normocephalic and atraumatic. Mouth/Throat: Mouth: Mucous membranes are dry. Pharynx: No oropharyngeal exudate. Eyes: Extraocular Movements: Extraocular movements intact. Pupils: Pupils are equal, round, and reactive to light. Neck: Musculoskeletal: Normal range of motion and neck supple. Cardiovascular: Rate and Rhythm: Normal rate and regular rhythm. Pulses: Normal pulses. Heart sounds: Normal heart sounds. Pulmonary: Effort: Pulmonary effort is normal. No respiratory distress. Breath sounds: Normal breath sounds. No stridor. No wheezing, rhonchi or rales. Abdominal: General: Abdomen is flat. There is no distension. Palpations: There is no mass. Tenderness: There is no abdominal tenderness. There is no guarding or rebound. Skin: General: Skin is warm and dry. Neurological: General: No focal deficit present. Mental Status: She is alert. Comments: Speech clear No facial asymmetry Hand ssds mk 2 advanced operator R=L MS 5/5 to UE and LE b/l Orientated x 3 Radiology: Hospital Encounter on 08/19/20 CT Head W/O Contrast Narrative CT HEAD WO CONTRAST HISTORY: TIA, initial exam COMPARISON: None. TECHNIQUE: Axial CT of the head was performed and reconstructed at 5 mm intervals. Coronal and sagittal reformatted images were generated. FINDINGS: No intracranial abnormality such as hemorrhage, edema, mass-effect, midline shift, or extra axial fluid collection is appreciated. The pathak-white matter differentiation is preserved. The ventricles and sulci are age-appropriate. The basal cisterns are within normal limits. No hydrocephalus is seen. The calvarium and skull base are intact. Bilateral pseudophakia is noted. The paranasal sinuses and mastoid air cells are clear. Impression No acute intracranial abnormality. Preliminary Report Dictated by Resident: Nita Mayen I, Norris Treviño MD., have reviewed this study and agree with the above report. Chest 1 View Narrative PROCEDURE: XR CHEST 1 VW CLINICAL INDICATION: cough TECHNIQUE: Frontal chest radiograph was obtained. COMPARISON: None FINDINGS: The lungs are clear without consolidation. A calcified granuloma projects over the right mid lung field. No pleural effusion or pneumothorax is seen. Mild left apical pleural thickening. The heart is normal in size. No acute bony abnormality is noted. Mild dextrocurvature of the thoracolumbar spine. Impression No acute cardiopulmonary process. Preliminary Report Dictated by Resident: Nita Mayen I, Keith Au MD., have reviewed this study and agree with the above report. Lab Results (24h): Recent Results (from the past 24 hour(s)) CBC with Differential Collection Time: 08/19/20 9:20 AM Result Value Ref Range WBC 16.98 (H) 4.30 - 11.10 10*3/L RBC 3.87 (L) 3.93 - 5.25 10*6/L HGB 12.4 11.6 - 15.0 g/dL HCT 35.3 (L) 35.7 - 45.2 % MCV 91.2 80.6 - 95.5 fL MCH 32.0 25.9 - 32.8 pg MCHC 35.1 31.6 - 35.1 g/dL RDW-SD 44.1 39.0 - 49.9 fL RDW-CV 13.3 12.0 - 15.5 % PLT 408 (H) 166 - 358 10*3/L MPV 8.5 (L) 9.5 - 12.9 fL NRBC/100 WBC 0.0 0.0 - 10.0 /100 WBCs NRBC x10^3 <0.01 10*3/L GRAN MAT (NEUT) % 75.7 % IMM GRAN % 0.90 % LYMPH % 8.0 % MONO % 14.4 % EOS % 0.6 % BASO % 0.4 % GRAN MAT x10^3(ANC) 12.86 (H) 1.88 - 7.09 10*3/uL IMM GRAN x10^3 0.16 (H) 0.00 - 0.06 10*3/uL LYMPH x10^3 1.35 1.32 - 3.29 10*3/uL MONO x10^3 2.45 (H) 0.33 - 0.92 10*3/uL EOS x10^3 0.10 0.03 - 0.39 10*3/uL BASO x10^3 0.06 0.01 - 0.07 10*3/uL Basic Metabolic Panel (NA, K, CL, CO2, GLUCOSE, BUN, CREATININE, CA) Collection Time: 08/19/20 9:20 AM Result Value Ref Range NA 124 (L) 135 - 145 mmol/L K 4.3 3.5 - 5.0 mmol/L CL 88 (L) 98 - 108 mmol/L CO2 TOTAL 27 23 - 31 mmol/L AGAP 9 2 - 16 BUN 18 7 - 23 mg/dL GLUCOSE 127 (H) 70 - 110 mg/dL CREATININE 1.05 (H) 0.50 - 1.04 mg/dL CALCIUM 9.6 8.6 - 10.6 mg/dL eGFR Calculation (Non-) 49.9 mL/min/1.73m2 eGFR Calculation () 60.5 mL/min/1.73m2 Hepatic Function Panel (ALB, T.PRO, BILI T, BU/BC, ALT, AST, ALK PHOS) Collection Time: 08/19/20 9:20 AM Result Value Ref Range TOTAL BILI 0.9 0.1 - 1.1 mg/dL BILI UNCON 0.6 0.1 - 1.1 mg/dL BILI CONJ 0.0 0.0 - 0.3 mg/dL T PROTEIN 7.0 6.3 - 8.2 g/dL ALBUMIN 4.1 3.5 - 5.0 g/dL ALK PHOS 46 34 - 122 U/L ALTv 27 5 - 35 U/L AST(SGOT) 38 13 - 40 U/L Lipase Serum Collection Time: 08/19/20 9:20 AM Result Value Ref Range LIPASE 111 0 - 220 U/L Troponin I Collection Time: 08/19/20 9:20 AM Result Value Ref Range TROPONIN I <0.012 <=0.034 ng/mL N-TERMINAL PRO-BNP Collection Time: 08/19/20 9:20 AM Result Value Ref Range NT-proBNP 1,160 (H) <=450 pg/mL MAGNESIUM Collection Time: 08/19/20 9:20 AM Result Value Ref Range MAGNESIUM 2.1 1.7 - 2.4 mg/dL THYROID STIMULATING HORMONE Collection Time: 08/19/20 9:20 AM Result Value Ref Range TSH 7.25 (H) 0.45 - 4.70 mIU/L COVID-19 (ID NOW RAPID TESTING) Collection Time: 08/19/20 9:23 AM Specimen: NASOPHARYNGEAL SWAB Result Value Ref Range SARS-CoV-2 Rapid ID NOW Not Detected Not Detected Urinalysis Collection Time: 08/19/20 9:41 AM Result Value Ref Range APPEARANCE Clear Clear COLOR Yellow Yellow PH 8.0 4.8 - 8.0 SP GRAVITY 1.005 1.003 - 1.030 GLU U QUAL Normal Normal BLOOD Negative Negative KETONES Negative Negative PROTEIN Negative Negative UROBILIN Normal Normal BILIRUBIN Negative Negative NITRITE Negative Negative LEUK ROSALIA Negative Negative RBC/HPF 2 0 - 3 HPF WBC/HPF <1 0 - 5 HPF BACTERIA Negative Negative EKG: Nsr, no stemi, QTc 443, rate 55 Orders and Treatments: Orders Placed This Encounter Procedures Chest [address] Head W/O Contrast Urinalysis CBC with Differential Basic Metabolic Panel (NA, K, CL, CO2, GLUCOSE, BUN, CREATININE, CA) Hepatic Function Panel (ALB, T.PRO, BILI T, BU/BC, ALT, AST, ALK PHOS) Lipase Serum Troponin I N-TERMINAL PRO-BNP COVID-19 (ID NOW RAPID TESTING) MAGNESIUM THYROID STIMULATING HORMONE LAB ONLY COVID INTERPRETATION Orders Placed This Encounter Medications NaCl 0.9% (NS) bolus infusion 1,000 mL metoprolol succinate XL 25 mg 24 hr tablet olmesartan (BENICAR) 20 mg tablet furosemide (LASIX) 20 mg tablet Levothyroxine 100 mcg capsule apixaban (ELIQUIS) 5 mg tablet traZODone 100 mg tablet montelukast (SINGULAIR) 10 mg tablet ALPRAZolam (XANAX) 0.25 mg tablet ED COURSE patient presents for eval for malaise for several days/week. No cp or sob. No abd pain. No n/v. Nothing to eat/drink today. Her daughter is visiting and they report today that she was difficult to arouse and had garbled speech. 911 was called and she was brought for eval. VSS here in the EC. Speech clear and she is orientated x 3. No focal neuro deficits on exam. Will obtain CT head for possible TIA. Will check labs and urine. Will screen for covid and give IV fluids. Anticipate admission later on. 1130 - CT head unremarkable. UA clean. CXR normal. TSH slightly elevated. Cbc shows leukocytosis but no source of infection. Concern for TIA v seizure. Will need admission to neurology for MRI head and continued work-up. Spoke with Dr. Simon and patient accepted to [facility]. MDM: Coding Scoring Tools: No data recorded Diagnosis/Impression: ICD-10-CM ICD-9-CM 1. Malaise R53.81 780.79 Disposition/Condition: ED Disposition None Discharge Medications: Patient's Medications START taking these medications No medications on file CONTINUE taking these medications which have NOT CHANGED ALPRAZOLAM (XANAX) 0.25 MG TABLET Take 0.25 mg by mouth as needed for Other (anxiety). APIXABAN (ELIQUIS) 5 MG TABLET Take 5 mg by mouth 2 (two) times daily. FUROSEMIDE (LASIX) 20 MG TABLET Take 20 mg by mouth daily. LEVOTHYROXINE 100 MCG CAPSULE Take by mouth. METOPROLOL SUCCINATE XL 25 MG 24 HR TABLET Take 25 mg by mouth daily. MONTELUKAST (SINGULAIR) 10 MG TABLET Take 10 mg by mouth. OLMESARTAN (BENICAR) 20 MG TABLET Take 20 mg by mouth. TRAZODONE 100 MG TABLET Take 100 mg by mouth at bedtime. START taking Modified Medications as Prescribed No medications on file STOP taking these medications No medications on file Follow-up: Electronically signed by: Pili Fierro DO 08/19/2020 9:17 AM ERER documented in this encounter Miscellaneous Notes Nursing Note - Edda Vega RN - 08/19/2020 12:59 PM [facility]Report [facility] to [facility] at the bedside to transport ursing Note - Edda Vega RN - 08/19/2020 12:47 PM CSTReport given to Kylee NANCE with [facility] ERER documented in this encounter Plan of Treatment Name Type Priority Associated Diagnoses Date/Ti me LAB ONLY COVID LAB STAT Malaise 08/19/2020 9 :23 AM INTERPRETATION HAMMERER Name Type Priority Associated Diagnoses Order S chedule LAB ONLY COVID LAB Routine Malaise ONCE for 1 Oc currences INTERPRETATION starting 10/2019 until 0 BASIC METABOLIC PANEL LAB Routine EVERY MORNING AT 0400 (NA, K, CL, CO2, GLUCOSE, fo r 3 Days starting BUN, CREATININE, CA) 020 until 08/22/2020, 1 completed XR BONE SURVEY IMAGING CARMITA TIA (transient ONCE for 1 Occurrences ischemic attack) starting until 0 Health Maintenance Due Date Last Done Comments Depression Screening 1948 DTaP,Tdap,and Td Vaccines (1 - Tdap) 1955 Zoster Recombinant Vaccine (SHINGRIX) (1 of 2) 1986 Medicare Wellness Visit 2001 Osteoporosis Screening 2001 PNEUMOCOCCAL VACCINES 65+ (1 of 1 - PPSV23) 2001 INFLUENZA VACCINE (#1) 2020 documented as of this encounter Implants Implanted Type Area Transportation Department Head Device Shelf Model / Identifier Expiration Date Ser ial / Lot Pin-08/19/2007 PIN Left: Implanted: 08/19/2007 (Quantity not on file) Elbow Plate-08/19/2009 PLATE Back Implanted: 08/19/2009 (Quantity not on file) documented as of this encounter Procedures Procedure Name Priority Date/Time Associated Comments Diagnosis ECHO ROUTINE W/DOPPLER Routine 08/20/2020 3:45 TIA (transient COLOR PM HAMMERER ischemic attack) SODIUM, URINE RANDOM Routine 08/20/2020 2:28 Res ults for this PM HAMMERER procedure are i n the results section. UREA NITROGEN, URINE RANDOM Routine 08/20/2020 2:28 Results for this PM HAMMERER procedure are i n the results section. CREATININE, URINE RANDOM Routine 08/20/2020 2:28 Results for this PM HAMMERER procedure are i n the results section. OSMOLALITY URINE Routine 08/20/2020 2:28 Results for this PM HAMMERER procedure are i n the results section. BASIC METABOLIC PANEL (NA, Routine 08/20/2020 6:20 Results for this K, CL, CO2, GLUCOSE, BUN, AM HAMMERER pr ocedure are in CREATININE, CA) the results section. OSMOLALITY SERUM Routine 08/20/2020 6:20 Results for this AM HAMMERER procedure are i n the results section. MR STROKE ANGIOGRAM NECK W CARMITA 08/20/2020 1:31 TIA (trans ient Results for this CONTRAST AM HAMMERER ischemic attack) procedure a re in the results section. MR STROKE ANGIOGRAM HEAD WO Routine 08/20/2020 1:31 TIA (cr sient Results for this CONTRAST AM HAMMERER ischemic attack) procedure a re in the results section. MR STROKE BRAIN WO CONTRAST CARMITA 08/20/2020 1:31 TIA (cr sient Results for this AM HAMMERER ischemic attack) procedure a re in the results section. ELECTROENCEPHALOGRAM Routine 08/20/2020 TIA (transient Resul ts for this ischemic attack) procedure a re in the results section. FREE T4 Routine 08/19/2020 10:56 Results for this PM HAMMERER procedure are i n the results section. CT HEAD WO CONTRAST STAT 08/19/2020 10:10 Malaise Resu lts for this AM HAMMERER procedure are i n the results section. XR CHEST 1 VW STAT 08/19/2020 9:50 Malaise Results fo r this AM HAMMERER procedure are i n the results section. URINALYSIS STAT 08/19/2020 9:41 Malaise Results for this AM HAMMERER procedure are i n the results section. COVID-19 (ID NOW RAPID STAT 08/19/2020 9:23 Malaise R esults for this TESTING) AM HAMMERER procedure are i n the results section. FREE T3 Add-on 08/19/2020 9:20 Results for this AM HAMMERER procedure are i n the results section. N-TERMINAL PRO-BNP STAT 08/19/2020 9:20 Malaise Resul ts for this AM HAMMERER procedure are i n the results section. GLYCOSYLATED HEMOGLOBIN Add-on 08/19/2020 9:20 Results for this (A1C) AM HAMMERER procedure are i n the results section. CBC WITH DIFF STAT 08/19/2020 9:20 Malaise Results fo r this AM HAMMERER procedure are i n the results section. LIPID PANEL (60304)(TOTAL Add-on 08/19/2020 9:20 Results for this CHOLESTEROL, TRIGLYCERIDES, AM HAMMERER procedure are in HDL) the results section. BASIC METABOLIC PANEL (NA, STAT 08/19/2020 9:20 Malaise Results for this K, CL, CO2, GLUCOSE, BUN, AM HAMMERER pr ocedure are in CREATININE, CA) the results section. HEPATIC FUNCTION PANEL STAT 08/19/2020 9:20 Malaise R esults for this (24074) (ALB,T.PRO,BILI AM HAMMERER proc edure are in T,BU/BC,ALT,AST,ALK PHOS) th e results section. THYROID STIMULATING HORMONE STAT 08/19/2020 9:20 Malaise Results for this AM HAMMERER procedure are i n the results section. TROPONIN I STAT 08/19/2020 9:20 Malaise Results for this AM HAMMERER procedure are i n the results section. MAGNESIUM STAT 08/19/2020 9:20 Malaise Results for this AM HAMMERER procedure are i n the results section. LIPASE STAT 08/19/2020 9:20 Malaise Results for this AM HAMMERER procedure are i n the results section. HB ECG ROUTINE & RHYTHM STAT 08/19/2020 9:16 Malaise STRIP AM HAMMERER documented in this encounter Results OSMOLALITY URINE (08/20/2020 2:28 PM HAMMERER) Pathologist Sig nature OSMO U 193 50-1,100 mOsm/kg [facility] Specimen Urine - URINE, CLEAN CATCH Performing Organization Address [facility] Phone Number [facility] CLIA: [id number] [place] [address] [place] [address] CREATININE, URINE RANDOM (08/20/2020 2:28 PM HAMMERER) Pathologist Sig nature CREAT U 29.2 mg/dL [facility] Specimen Urine - URINE, CLEAN CATCH Performing Organization Address [facility] Phone Number [facility] CLIA: [id number] [place] [address] [place] [address] UREA NITROGEN, URINE RANDOM (08/20/2020 2:28 PM HAMMERER) Pathologist Sig nature UREA N UR 189 mg/dL [facility] Specimen Urine - URINE, CLEAN CATCH Performing Organization Address [facility] Phone Number [facility] CLIA: [id number] [place], [place] [address] [address] [facility] SODIUM, URINE RANDOM (08/20/2020 2:28 PM HAMMERER) Pathologist Sig nature NA URINE 43 mmol/L [facility] Specimen Urine - URINE, CLEAN CATCH Performing Organization Address [facility]/Zipcode Phone Number [facility] CLIA: [id number] [place] [address] [place] [address] BASIC METABOLIC PANEL (NA, K, CL, CO2, GLUCOSE, BUN, CREATININE, CA) (08/20/2020 6:20 AM HAMMERER) Pathologist [facility] nature NA 123 (L) 135 - [address] [facility] mmol/L SERVICES K 3.8 3.5 - 5.[address] [facility] mmol/L SERVICES CL 91 (L) 98 - 108 mmol/L [facility] CO2 TOTAL 25 23 - 31 mmol/L [facility] AGAP 7 2 - [address] [facility] BUN 14 7 - 23 mg/dL [facility] GLUCOSE 94 70 - 110 mg/dL [facility] CREATININE 0.82 0.50 - 1.[address] [facility] mg/dL SERVICES CALCIUM 8.8 8.6 - 10.[address] [facility] mg/dL SERVICES eGFR Calculation 66.4 mL/min/1.73m2 [facility] (Non- SERVICES Latvian) eGFR Calculation 80.5 mL/min/1.73m2 [facility] () SERVICES Specimen Blood - ARM, LEFT Narrative Performed At Association of Glomerular Filtration Rate (GFR) and St aging [facility] of Kidney Disease* + + +------- ------ + | GFR (mL/min/1.73 m2) | With Kidney Damage | Wi thout Kidney Damage + + +------- ------ + | >90 | Stage one | Normal + + +------- ------ + | 60-89 | Stage two | Decreased GFR + + +------- ------ + | 30-59 | Stage three | Stage three + + +------- ------ + | 15-29 | Stage four | Stage four + + +------- ------ + | <15 (or dialysis) | Stage five | Stage five + + +------- ------ + *Each stage assumes the associated GFR level has been in effect for at least three months. Stages 1 to 5, wit h or without kidney disease, indicate chronic kidney disease. Notes: Determination of stages one and two (with eGFR >59mL/min/1.73 m2) requires estimation of kidney damag e for at least three months as defined by structural or func tional abnormalities of the kidney, manifested by either: Pathological abnormalities or Markers of kidney damage (including abnormalities in the composition of the blo od or urine or abnormalities in imaging tests) . Performing Organization Address City/State/Zipcode Phone Number [facility] CLIA: [id number] [place] [address] [address] [facility] OSMOLALITY SERUM (08/20/2020 6:20 AM HAMMERER) Pathologist Sig nature OSMOLALITY 262 (L) 278 - 305 mOsm/kg [facility] S Specimen Blood - ARM, LEFT Performing Organization Address City/State/Zipcode Phone Number [facility] CLIA: [id number] [place] [address] [place] [address] MR STROKE ANGIOGRAM NECK W CONTRAST (08/20/2020 1:31 AM HAMMERER) Specimen Impressions Performed At PACS/VR/DOSE No acute intracranial abnormality. Head and neck MRAs are unremarkable. No high-grade jeison nosis or large vessel occlusion identified. Narrative Performed At EXAM: MR STROKE BRAIN WO CONTRAST, MR STROKE ANGIOGRAM HEAD WO CONTRAST, PACS/VR/DOSE MR STROKE ANGIOGRAM NECK W CONTRAST HISTORY: TIA, initial exam TECHNIQUE: MRI of the brain was performed on 1.5 Khushbu without intravenous contrast. [id number]-vi-frsciz head MRA was performed. Contr ast enhanced neck MRA was performed following intravenous administration of 14 mL of MultiHance. COMPARISON: CT head dated 08/19/2020. FINDINGS: BRAIN MRI The ventricles and sulci are normal in c aliber and configuration. No hydrocephalus. The basal cisterns are wi thin normal limits. There is no diffusion restriction sugges t acute/subacute infarction. No intracranial hemorrhage, extra-axial col lection, mass effect, midline shift, or herniation. No abnormal signal Blooming on gradient sequences. The T2 signal void of intracranial vesse ls is within normal limits. No abnormal signal in the paranasal sinu ses or mastoid air cells. HEAD MRA PICA origin is visualized bilaterally. T he basilar artery is normal in caliber and patent. The superior cerebel lar arteries are unremarkable. Posterior cerebral arteries are patent. The distal cervical, petrous, cavernous and supraclino id internal carotid arteries are patent. The anterior cerebral arteries ar e unremarkable. The distal middle cerebral arteries are atte nuated likely artifactual. The remainder of the middle cerebral arterie s are patent. Neck MRA Classic three-vessel branching anatomy o f the aortic arch. The ostia of major neck vessels are free of stenosis. The bilateral common carotid arteries, carotid bulbs a nd internal carotid arteries are patent without evidence of high-grade stenosis. The bilateral vertebral arteries originate from the louise bclavian arteries and are patent throughout their entire cervi eddie course. Procedure Note [facility], Radiant Results Inft User - 2019 10:00 AM HAMMERER EXAM: MR STROKE BRAIN WO CONTRAST, MR STROKE ANGIOGRAM HEAD WO CONTRAST, MR STROKE ANGIOGRAM NECK W CONTRAST HISTORY: TIA, initial exam TECHNIQUE: MRI of the brain was performe d on 1.5 Khushbu without intravenous contrast. Jlcx-gv-wyykju head MRA was pe rformed. Contrast enhanced neck MRA was performed following intravenous admi nistration of 14 mL of MultiHance. COMPARISON: CT head dated 08/19/2020. FINDINGS: BRAIN MRI The ventricles and sulci are normal in c aliber and configuration. No hydrocephalus. The basal cisterns are wi thin normal limits. There is no diffusion restriction sugges t acute/subacute infarction. No intracranial hemorrhage, extra-axial col lection, mass effect, midline shift, or herniation. No abnormal signal Blooming on gradient sequences. The T2 signal void of intracranial vesse ls is within normal limits. No abnormal signal in the paranasal sinu ses or mastoid air cells. HEAD MRA PICA origin is visualized bilaterally. T he basilar artery is normal in caliber and patent. The superior cerebel lar arteries are unremarkable. Posterior cerebral arteries are patent. The distal cervical, petrous, cavernous and supraclinoid internal carotid arteries are patent. The anterior cerebr al arteries are unremarkable. The distal middle cerebral arteries are atte nuated likely artifactual. The remainder of the middle cerebral arterie s are patent. Neck MRA Classic three-vessel branching anatomy o f the aortic arch. The ostia of major neck vessels are free of stenosis. The bilateral common carotid arteries, c arotid bulbs and internal carotid arteries are patent without evidence of high-grade stenosis. The bilateral vertebral arteries origina te from the subclavian arteries and are patent throughout their entire cervi eddie course. IMPRESSION No acute intracranial abnormality. Head and neck MRAs are unremarkable. No high-grade stenosis or large vessel occlusion identified. Performing Organization Address City/State/Zipcode Phone Number PACS/VR/DOSE MR STROKE ANGIOGRAM HEAD WO CONTRAST (08/20/2020 1:31 AM HAMMERER) Specimen Impressions Performed At PACS/VR/DOSE No acute intracranial abnormality. Head and neck MRAs are unremarkable. No high-grade jeison nosis or large vessel occlusion identified. Narrative Performed At EXAM: MR STROKE BRAIN WO CONTRAST, MR STROKE ANGIOGRAM HEAD WO CONTRAST, PACS/VR/DOSE MR STROKE ANGIOGRAM NECK W CONTRAST HISTORY: TIA, initial exam TECHNIQUE: MRI of the brain was performed on 1.5 Khushbu without intravenous contrast. Fslz-wv-uvyetn head MRA was performed. Contr ast enhanced neck MRA was performed following intravenous administration of 14 mL of MultiHance. COMPARISON: CT head dated 08/19/2020. FINDINGS: BRAIN MRI The ventricles and sulci are normal in c aliber and configuration. No hydrocephalus. The basal cisterns are wi thin normal limits. There is no diffusion restriction sugges t acute/subacute infarction. No intracranial hemorrhage, extra-axial col lection, mass effect, midline shift, or herniation. No abnormal signal Blooming on gradient sequences. The T2 signal void of intracranial vesse ls is within normal limits. No abnormal signal in the paranasal sinu ses or mastoid air cells. HEAD MRA PICA origin is visualized bilaterally. T he basilar artery is normal in caliber and patent. The superior cerebel lar arteries are unremarkable. Posterior cerebral arteries are patent. The distal cervical, petrous, cavernous and supraclino id internal carotid arteries are patent. The anterior cerebral arteries ar e unremarkable. The distal middle cerebral arteries are atte nuated likely artifactual. The remainder of the middle cerebral arterie s are patent. Neck MRA Classic three-vessel branching anatomy o f the aortic arch. The ostia of major neck vessels are free of stenosis. The bilateral common carotid arteries, carotid bulbs a nd internal carotid arteries are patent without evidence of high-grade stenosis. The bilateral vertebral arteries originate from the lou[place] bclavian arteries and are patent throughout their entire cervi eddie course. Procedure Note [facility], Radiant Results Inft User - 2019 10:00 AM HAMMERER EXAM: MR STROKE BRAIN WO CONTRAST, MR STROKE ANGIOGRAM HEAD WO CONTRAST, MR STROKE ANGIOGRAM NECK W CONTRAST HISTORY: TIA, initial exam TECHNIQUE: MRI of the brain was performe d on 1.5 Khushbu without intravenous contrast. Sjuv-jr-xongjy head MRA was pe rformed. Contrast enhanced neck MRA was performed following intravenous admi nistration of 14 mL of MultiHance. COMPARISON: CT head dated 08/19/2020. FINDINGS: BRAIN MRI The ventricles and sulci are normal in c aliber and configuration. No hydrocephalus. The basal cisterns are wi thin normal limits. There is no diffusion restriction sugges t acute/subacute infarction. No intracranial hemorrhage, extra-axial col lection, mass effect, midline shift, or herniation. No abnormal signal Blooming on gradient sequences. The T2 signal void of intracranial vesse ls is within normal limits. No abnormal signal in the paranasal sinu ses or mastoid air cells. HEAD MRA PICA origin is visualized bilaterally. T he basilar artery is normal in caliber and patent. The superior cerebel lar arteries are unremarkable. Posterior cerebral arteries are patent. The distal cervical, petrous, cavernous and supraclinoid internal carotid arteries are patent. The anterior cerebr al arteries are unremarkable. The distal middle cerebral arteries are atte nuated likely artifactual. The remainder of the middle cerebral arterie s are patent. Neck MRA Classic three-vessel branching anatomy o f the aortic arch. The ostia of major neck vessels are free of stenosis. The bilateral common carotid arteries, c arotid bulbs and internal carotid arteries are patent without evidence of high-grade stenosis. The bilateral vertebral arteries origina te from the subclavian arteries and are patent throughout their entire cervi eddie course. IMPRESSION No acute intracranial abnormality. Head and neck MRAs are unremarkable. No high-grade stenosis or large vessel occlusion identified. Performing Organization Address City/State/[facility] Phone Number [facility] MR STROKE BRAIN WO CONTRAST (08/20/2020 1:31 AM HAMMERER) Specimen Impressions Performed At PACS/VR/[place] No acute intracranial abnormality. Head and neck MRAs are unremarkable. No high-grade jeison nosis or large vessel occlusion identified. Narrative Performed At EXAM: MR STROKE BRAIN WO CONTRAST, MR STROKE ANGIOGRAM HEAD WO CONTRAST, PACS/VR/DOSE MR STROKE ANGIOGRAM NECK W CONTRAST HISTORY: TIA, initial exam TECHNIQUE: MRI of the brain was performed on 1.5 Khushbu without intravenous contrast. Skcu-nl-hmjmzd head MRA was performed. Contr ast enhanced neck MRA was performed following intravenous administration of 14 mL of MultiHance. COMPARISON: CT head dated 08/19/2020. FINDINGS: BRAIN MRI The ventricles and sulci are normal in c aliber and configuration. No hydrocephalus. The basal cisterns are wi thin normal limits. There is no diffusion restriction sugges t acute/subacute infarction. No intracranial hemorrhage, extra-axial col lection, mass effect, midline shift, or herniation. No abnormal signal Blooming on gradient sequences. The T2 signal void of intracranial vesse ls is within normal limits. No abnormal signal in the paranasal sinu ses or mastoid air cells. HEAD MRA PICA origin is visualized bilaterally. T he basilar artery is normal in caliber and patent. The superior cerebel lar arteries are unremarkable. Posterior cerebral arteries are patent. The distal cervical, petrous, cavernous and supraclino id internal carotid arteries are patent. The anterior cerebral arteries ar e unremarkable. The distal middle cerebral arteries are atte nuated likely artifactual. The remainder of the middle cerebral arterie s are patent. Neck MRA Classic three-vessel branching anatomy o f the aortic arch. The ostia of major neck vessels are free of stenosis. The bilateral common carotid arteries, carotid bulbs a nd internal carotid arteries are patent without evidence of high-grade stenosis. The bilateral vertebral arteries originate from the [place] bclavian arteries and are patent throughout their entire cervi eddie course. Procedure Note [facility], Radiant Results Inft User - 2019 10:00 AM HAMMERER EXAM: MR STROKE BRAIN WO CONTRAST, MR STROKE ANGIOGRAM HEAD WO CONTRAST, MR STROKE ANGIOGRAM NECK W CONTRAST HISTORY: TIA, initial exam TECHNIQUE: MRI of the brain was performe d on 1.5 Khushbu without intravenous contrast. Fmmr-bn-oevmoh head MRA was pe rformed. Contrast enhanced neck MRA was performed following intravenous admi nistration of 14 mL of MultiHance. COMPARISON: CT head dated 08/19/2020. FINDINGS: BRAIN MRI The ventricles and sulci are normal in c aliber and configuration. No hydrocephalus. The basal cisterns are wi thin normal limits. There is no diffusion restriction sugges t acute/subacute infarction. No intracranial hemorrhage, extra-axial col lection, mass effect, midline shift, or herniation. No abnormal signal Blooming on gradient sequences. The T2 signal void of intracranial vesse ls is within normal limits. No abnormal signal in the paranasal sinu ses or mastoid air cells. HEAD MRA PICA origin is visualized bilaterally. T he basilar artery is normal in caliber and patent. The superior cerebel lar arteries are unremarkable. Posterior cerebral arteries are patent. The distal cervical, petrous, cavernous and supraclinoid internal carotid arteries are patent. The anterior cerebr al arteries are unremarkable. The distal middle cerebral arteries are atte nuated likely artifactual. The remainder of the middle cerebral arterie s are patent. Neck MRA Classic three-vessel branching anatomy o f the aortic arch. The ostia of major neck vessels are free of stenosis. The bilateral common carotid arteries, c arotid bulbs and internal carotid arteries are patent without evidence of high-grade stenosis. The bilateral vertebral arteries origina te from the subclavian arteries and are patent throughout their entire cervi eddie course. IMPRESSION No acute intracranial abnormality. Head and neck MRAs are unremarkable. No high-grade stenosis or large vessel occlusion identified. Performing Organization Address City/State/Zipcode Phone Number PACS/VR/DOSE Electroencephalogram (EEG) - Duration of test: 20-60 mins (08/20/2020) Narrative Performed At Date and Time of Procedure: 08/20/2020, 1 1:08:06-11:33:04 REPORT TECHNICAL SUMMARY: The EEG was recorded digitally. Electrodes were applie d using the International 10/20 System of electrode placement. Eye movements and rhythm strip ECG were monitored on separate channels o f the ongoing EEG recording. The occipital dominant rhythm consists of moderate amp litude 7-8 Hz activity. More anteriorly, similar as well as faster f requencies are present, including low amplitude 18-22 Hz activities i n the anterior leads. There is an excessive amount of 4 -8 Hz activity diffusely. Drowsiness and sleep do not reveal addit ional abnormalities. Photic stimulation does not elicit addit ional abnormalities. IMPRESSION: This EEG is abnormal due to mild diffuse slowing, whic h can be suggestive of a mild diffuse disturbance in cerebral f unction but can also be related to sedating medications. No electrographic seizures or epileptiform abnormaliti es are seen. The absence of epileptiform abnormalities in one EEG does not necessarily rule out a diagnosis of epilepsy or the potential for epileptic seizures, however. The diagnostic sensitivity can be e nhanced by a repeat study, which would be appropriate if clinically indicated. __ Sudheer Medrano Rai, MD Date of interpretation: 08/20/2020 FREE T4 (08/19/2020 10:56 PM HAMMERER) Pathologist Sig nature FREE T4 2.24 (H) 0.78 - 2.20 ng/dL: [facility] SERVIC ES Specimen Blood - ARM, LEFT Performing Organization Address City/State/Zipcode Phone Number [facility] CLIA: [id number] [facility] [place] [address] [place] [address] CT Head W/O Contrast (08/19/2020 10:10 AM HAMMERER) Specimen Impressions Performed At PACS/VR/DOSE No acute intracranial abnormality. Preliminary Report Dictated by Resident: Nita Mayen I, Norris Treviño MD., have reviewe d this study and agree with the above report. Narrative Performed At CT HEAD WO CONTRAST PACS/VR/DOSE HISTORY: TIA, initial exam COMPARISON: None. TECHNIQUE: Axial CT of the head was perf ormed and reconstructed at 5 mm intervals. Coronal and sagittal reformat minda images were generated. FINDINGS: No intracranial abnormality such as hemorrhage, edema, mass-effect, midline shift, or extra axial fluid collection i s appreciated. The pathak-white matter differentiation is preserved. The ventricles and sulci are age-appropriate. The basa l cisterns are within normal limits. No hydrocephalus is seen. The calvarium and skull base are intact. Bilateral pse udophakia is noted. The paranasal sinuses and mastoid air ce lls are clear. Procedure Note [facility], Radiant Results Inft User - 2019 11:[address] HEAD WO CONTRAST HISTORY: TIA, initial exam COMPARISON: None. TECHNIQUE: Axial CT of the head was perf ormed and reconstructed at 5 mm intervals. Coronal and sagittal reformat minda images were generated. FINDINGS: No intracranial abnormality such as hemo rrhage, edema, mass-effect, midline shift, or extra axial fluid collection i s appreciated. The pathak-white matter differentiation is preserved. The ventricles and sulci are age-appropr iate. The basal cisterns are within normal limits. No hydrocephalus is seen. The calvarium and skull base are intact. Bilateral pseudophakia is noted. The paranasal sinuses and mastoid air ce lls are clear. IMPRESSION No acute intracranial abnormality. Preliminary Report Dictated by Resident: Nita Mayen I, Norris Treviño MD., have reviewe d this study and agree with the above report. Performing Organization Address [facility] Phone Number [facility]/VR/DOSE Chest 1 View (08/19/2020 9:50 AM HAMMERER) Specimen Impressions Performed At [facility]/VR/[facility] No acute cardiopulmonary process. Preliminary Report Dictated by Resident: Keith Anderson MD., have reviewed this study and agree with the above report. Narrative Performed At PROCEDURE: XR CHEST 1 VW PACS/VR/DOSE CLINICAL INDICATION: cough TECHNIQUE: Frontal chest radiograph was obtained. COMPARISON: None FINDINGS: The lungs are clear without consolidation. A calcified granuloma projects over the right mid lung field. No pleural effusion or pneumothorax is seen. Mild left apical pleural thickening. The heart is normal in size. No acute bony abnormality is noted. Mild dextrocurvature of the thoracolumbar spine. Procedure Note [facility], Radiant Results Inft User - 2019 10:29 AM HAMMERER PROCEDURE: XR CHEST 1 VW CLINICAL INDICATION: cough TECHNIQUE: Frontal chest radiograph was obtained. COMPARISON: None FINDINGS: The lungs are clear without consolidatio n. A calcified granuloma projects over the right mid lung field. No pleura l effusion or pneumothorax is seen. Mild left apical pleural thickening. The heart is normal in size. No acute bony abnormality is noted. Mild dextrocurvature of the thoracolumbar spine. IMPRESSION No acute cardiopulmonary process. Preliminary Report Dictated by Resident: Keith Anderson MD., have reviewed th is study and agree with the above report. Performing Organization Address [facility] Phone Number [facility]//[facility] Urinalysis (08/19/2020 9:41 AM HAMMERER) Pathologist Sig nature APPEARANCE Clear Clear [facility] COLOR Yellow Yellow [facility] PH 8.0 4.8 - 8.0 [facility] SP GRAVITY 1.005 1.003 - 1.030 [facility] GLU U QUAL Normal Normal [facility] BLOOD Negative Negative [facility] KETONES Negative Negative [facility] PROTEIN Negative Negative [facility] UROBILIN Normal Normal [facility] BILIRUBIN Negative Negative [facility] NITRITE Negative Negative [facility] LEUK ROSALIA Negative Negative [facility] RBC/HPF 2 0 - 3 HPF [facility] WBC/HPF <1 0 - 5 HPF [facility] BACTERIA Negative Negative [facility] Specimen Urine - URINE, CATHETERIZED Performing Organization Address [facility] Phone Number [facility] CLIA: [id number] [place] [address] [place] [address] COVID-19 (ID NOW RAPID TESTING) (08/19/2020 9:23 AM HAMMERER) SARS-CoV-2 Rapid ID Not Detected Not Detected [facility] Specimen Swab - NASOPHARYNGEAL SWAB Narrative Performed At ID NOW COVID-19 Assay is an isothermal nucleic [facility] acid amplification test intended for the qualitative detection of nucleic acid from SARS-CoV-2 viral RNA in nasopharyngeal (SHEARER SCREEN MEASURER AND TRIMMER) specimens. It is used under Emergency Use Authorization (EUA) by FDA. The limit of detection (LOD) of the assay is 125 Genome Equivalents/mL. A positive result is indicative of the presence of SARS-CoV-2 RNA. Clinical correlation with patient history and other diagnostic information is necessary to determine patient infection status. A negative (Not Detected) result does not preclude SARS-CoV-2 infection. In patients with clinical symptoms and other tests that are consistent with SARS-CoV-2 infection, negative results should be treated as presumptive negative and a new specimen should be tested with alternative PCR molecular test. Invalid: Please collect a new specimen for repeat patient testing if clinically indicated. Performing Organization Address City/[facility] Phone Number [facility] CLIA: [id number] [place] [address] [place] [address] FREE T3 (08/19/2020 9:20 AM HAMMERER) Pathologist Sig nature FREE T3 2.78 2.77 - 5.27 pg/mL [facility] Specimen Blood - VENOUS Performing Organization Address [facility]/Zipcode Phone Number [facility] CLIA: [id number] [place] [address] LAB[address] [facility] [address] GLYCOSYLATED HEMOGLOBIN (A1C) (08/19/2020 9:20 AM HAMMERER) Pathologist Sig nature HGB A1C 5.1 4.0 - 6.0 % [facility] Specimen Blood - VENOUS Narrative Performed At %A1C (NGSP) Interpretation (ADA) [facility] 4.8-5.6 Normal or (Non-Diabetic Ra nge) 5.7-6.4 Increased Risk (Pre-Diabet ic) >6.5 Diabetes Indicated Performing Organization Address [facility] Phone Number [facility] CLIA: [id number] [place] [address] FASTING LIPID PANEL (05914)(TOTAL CHOLESTEROL, TRIGLYCERIDES, HDL) (08/19/2020 9:20 AM HAMMERER) Pathologist Sig nature CHOL 276 (H) 120 - 200 mg/dL [facility] HDL 94 >50 mg/dL [facility] HDLC RATIO 2.9 <=4.5 [facility] TRIG 99 30 - 170 mg/dL [facility] LDL CHOL 162 (H) <=160 mg/dL [facility] VLDL 20 5 - 60 mg/dL [facility] Specimen Blood - VENOUS Performing Organization Address [facility] Phone Number [facility] CLIA: [id number] [place], [place] [address] LABORATORY [address] THYROID STIMULATING HORMONE (08/19/2020 9:20 AM HAMMERER) Pathologist Sig nature TSH 7.25 (H) 0.45 - 4.70 mIU/L [facility] Specimen Blood - VENOUS Performing Organization Address [facility] Phone Number [facility] CLIA: [id number] [place] [address] MAGNESIUM (08/19/2020 9:20 AM HAMMERER) Pathologist Sig nature MAGNESIUM 2.1 1.7 - 2.4 mg/dL [facility] Specimen Blood - VENOUS Performing Organization Address [facility] Phone Number [facility] CLIA: [id number] [place], [place] [id number] LABORATORY [address] N-TERMINAL PRO-BNP (08/19/2020 9:20 AM HAMMERER) Pathologist Sig nature NT-proBNP 1,160 (H) <=450 pg/mL [facility] Specimen Blood - VENOUS Narrative Performed At Biotin has been reported to cause a negative [facility] bias, interpret results relative to patient's use of biotin. Performing Organization Address [facility] Phone Number [facility] CLIA: [id number] [place] [address] [address] Troponin I (08/19/2020 9:20 AM HAMMERER) Pathologist Sig [facility] TROPONIN I <0.012 <=0.034 ng/mL [facility] Specimen Blood - VENOUS Narrative Performed At Equal or Less than 0.034 ng/ml---Normal [facility] Note: Cardiac troponin begins to rise 3-4 hours after the onset of ischemia. Repeat in 4-6 hours if the sample was drawn within 3-4 hours of the onset of the symptom and found normal. Between 0.035 and 0.120 ng/mL--- Borderline. Questionable myocardial injury or necros is Note: Serial measurement may be necessary to confirm or exclude the diagnosis of myocardial injury or necrosis; Clinical correlation (symptoms, EKGs, imaging studies, and others) required; Repeat in 4-6 hours if clinically indicated. Equal or Higher than 0.121 ng/mL---Abnormal. Myocardial Injury or Necrosis Likely Biotin has been reported to cause a negative bias, interpret results relative to patient's use of biotin. Performing Organization Address [facility] Phone Number [facility] CLIA: [id number] [place] [address] Lipase Serum (08/19/2020 9:20 AM HAMMERER) Pathologist Sig [place] LIPASE 111 0 - 220 U/L [facility] Specimen Blood - VENOUS Performing Organization Address [facility] Phone Number [facility] CLIA: [id number] [place] [address] Hepatic Function Panel (ALB, T.PRO, BILI T, BU/BC, ALT, AST, ALK PHOS) (08/19/2020 9:20 AM HAMMERER) Pathologist Sig [place] TOTAL BILI 0.9 0.1 - 1.1 mg/dL [facility] BILI UNCON 0.6 0.1 - 1.1 mg/dL [facility] BILI CONJ 0.0 0.0 - 0.3 mg/dL [facility] T PROTEIN 7.0 6.3 - 8.2 g/dL [facility] ALBUMIN 4.1 3.5 - 5.0 g/dL [facility] ALK PHOS 46 34 - 122 U/L [facility] ALTv 27 5 - 35 U/L [facility] AST(SGOT) 38 13 - 40 U/L [facility] Specimen Blood - VENOUS Narrative Performed At Slight hemolysis [facility] Performing Organization Address City/State/Zipcode Phone Number [facility] CLIA: [id number] [place] [address] Basic Metabolic Panel (NA, K, CL, CO2, GLUCOSE, BUN, CREATININE, CA) (08/19/2020 9:20 AM HAMMERER) NA 124 (L) 135 - 145 [facility] mmol/L [facility] K 4.3 3.5 - 5.0 [facility] mmol/L [facility] CL 88 (L) 98 - 108 mmol/L [facility] CO2 TOTAL 27 23 - 31 mmol/L [facility] AGAP 9 2 - 16 [facility] BUN 18 7 - 23 mg/dL [facility] GLUCOSE 127 (H) 70 - 110 mg/dL [facility] CREATININE 1.05 (H) 0.50 - 1.04 [facility] mg/dL [facility] CALCIUM 9.6 8.6 - 10.6 [facility] mg/dL [facility] eGFR Calculation 49.9 mL/min/1.73m2 [facility] (Non-[facility] LABORATORY Latvian) eGFR Calculation 60.5 mL/min/1.73m2 [facility] () [facility] Specimen Blood - VENOUS Narrative Performed At Slight hemolysis [facility] Association of Glomerular Filtration Rate (GFR) and Staging of Kidney Disease* + + +- + | GFR (mL/min/1.73 m2) | With Kidney Damage | Without Kidney Damage + + +- + | >90 | Stage one | Normal + + +- + | 60-89 | Stage two | Decreased GFR + + +- + | 30-59 | Stage three | Stage three + + +- + | 15-29 | Stage four | Stage four + + +- + | <15 (or dialysis) | Stage five | Stage five + + +- + *Each stage assumes the associated GFR level has been in effect for at least three months. Stages 1 to 5, with or without kidney disease, indicate chronic kidney disease. Notes: Determination of stages one and two (with eGFR >59mL/min/1.73 m2) requires estimation of kidney damage for at least three months as defined by structural or functional abnormalities of the kidney, manifested by either: Pathological abnormalities or Markers of kidney damage (including abnormalities in the composition of the blood or urine or abnormalities in imaging tests). Performing Organization Address City/State/Zipcode Phone Number [facility] CLIA: [id number] [place] [address] CBC with Differential (08/19/2020 9:20 AM HAMMERER) Pathologist Sig nature WBC 16.98 (H) 4.30 - 11.10 [facility] 10*3/L [facility] RBC 3.87 (L) 3.93 - 5.25 [facility] 10*6/L [facility] HGB 12.4 11.6 - 15.0 [facility] g/dL [facility] HCT 35.3 (L) 35.7 - 45.2 % [facility] MCV 91.2 80.6 - 95.5 fL [facility] MCH 32.0 25.9 - 32.8 pg [facility] MCHC 35.1 31.6 - 35.1 [facility] g/dL [facility] RDW-SD 44.1 39.0 - 49.9 fL [facility] RDW-CV 13.3 12.0 - 15.5 % [facility] PLT 408 (H) 166 - 358 [facility] 10*3/L [facility] MPV 8.5 (L) 9.5 - 12.9 fL [facility] NRBC/100 WBC 0.0 0.0 - 10.0 /100 [facility] WBCs [facility] NRBC x10^3 <0.01 10*3/L [facility] GRAN MAT (NEUT) % 75.7 % [facility] IMM GRAN % 0.90 % [facility] LYMPH % 8.0 % [facility] MONO % 14.4 % [facility] EOS % 0.6 % [facility] BASO % 0.4 % [facility] GRAN MAT x10^3(ANC) 12.86 (H) 1.88 - 7.09 [facility] 10*3/uL [facility] IMM GRAN x10^3 0.16 (H) 0.00 - 0.06 [facility] 10*3/uL [facility] LYMPH x10^3 1.35 1.32 - 3.29 [facility] 103/uL [facility] MONO x10^3 2.45 (H) 0.33 - 0.92 [facility] 10*3/uL [facility] EOS x10^3 0.10 0.03 - 0.39 [facility] 103/[facility] LABORATORY BASO x10^3 0.06 0.01 - 0.[address] LABORATORY Specimen Blood - VENOUS Performing Organization Address City/State/Zipcode Phone Number [facility] CLIA: [id number] [place], [place] [id number] LABORATORY [address] [facility] documented in this encounter Visit Diagnoses Diagnosis TIA (transient ischemic attack) - Primar y Unspecified transient cerebral ischemia Malaise Other malaise and fatigue Leg weakness, bilateral Other musculoskeletal symptoms referable to limbs documented in this encounter Administered Medications Medication Order MAR Action Action Date Dose Rate Site ALPRAZolam (XANAX) tablet 0.25 Given 08/19/2020 11:03 PM HAMMERER 0.2 5 mg mg 0.25 mg, Oral, QHSPRN, Starting 08/19/20 at 2224, Until Discontinued, Routine, Insomnia apixaban (ELIQUIS) tablet 5 mg Given 08/20/2020 9:00 AM HAMMERER 5 mg 5 mg, Oral, BID, First dose on 08/19/20 at 2000, Until Discontinued, Routine Given 08/19/2020 11:04 PM HAMMERER 5 mg furosemide (LASIX) tablet 20 mg Given 08/20/2020 9:00 AM HAMMERER 20 mg 20 mg, Oral, DAILY, First dose on Thu08/20/20 at 0900, Until Discontinued, Routine guaiFENesin (FENESIN IR) tablet 200 mg Given 08/20/2020 2:44 PM HAMMERER 200 mg 200 mg, Oral, Q6HPRN, Starting [place] 08/19/20 at 2225, Until Discontinued, Routine, Congestion/Allergies, Cough Given 08/19/2020 11:03 PM HAMMERER 200 mg levothyroxine (SYNTHROID) tablet 100 mcg Given 08/20/2020 9:00 AM HAMMERER 100 mcg 100 mcg, Oral, QAM-0600, First dose on Thu08/20/20 at 0600, Until Discontinued NaCl 0.9% (NS) IV infusion 1,000 New Bag 08/20/2020 10:[address] 1,000 mL 50 mL/hr mL at 50 mL/hr, IV Infusion, CONTINUOUS, Starting Thu08/20/20 at 1045, Until Discontinued, Routine Saline Bubble Study Given 08/20/2020 3:32 PM HAMMERER 6 mL 6 mL, Injection, SEE-INSTRUCTIONS, Starting Thu08/20/20 at 0200, Until Discontinued, Routine Given 08/20/2020 3:30 PM HAMMERER 6 mL sodium chloride tablet 0.5 g Given 08/20/2020 2:44 PM HAMMERER 0.5 g 0.5 g (500 mg), Oral, TID MEALS, First dose on Thu08/20/20 at 0800, Until Discontinued, Routine traZODone (DESYREL) tablet 100 mg Given 08/19/2020 11:03 PM HAMMERER 100 mg 100 mg, Oral, QHS, First dose on [place] 08/19/20 at 2100, Until Discontinued, Routine Medication Order MAR Action Action Date Dose Rate Site ALPRAZolam (XANAX) tablet 0.25 Given 08/19/2020 1:04 PM HAMMERER 0.2 5 mg mg 0.25 mg, Oral, ONCE, 1 dose, [place] 08/19/20 at 1415, CARMITA benzonatate (TESSALON PERLES) capsule 10 0 mg Given 08/19/2020 1:15 PM HAMMERER 100 mg 100 mg, Oral, ONCE, 1 dose, [place] 08/19/20 at 1415, Routine gadobenate dimeglumine (MULTIHANCE-20 mL) Given 08/20/2020 1:28 AM HAMMERER 14 mL injection 14.06 mL 14.06 mL (0.2 mL/kg 70.3 kg), Intravenous, ONCE, 1 dose, 08/20/20 at 0245, Routine NaCl 0.9% (NS) bolus infusion New Bag 08/19/2020 9:33 AM HAMMERER 1,000 mL 999 mL/hr 1,000 mL at 999 mL/hr, 1,000 mL, IV Infusion, ONCE, 1 dose, 08/19/20 at 0930, CARMITA documented in this encounter Additional Health Concerns Infection Onset Date Last Indicated Resolved Time COVID-19 Rule Out 08/19/2020 08/19/2020 08/19/2020 10: 00 AM HAMMERER documented as of this encounter Insurance Payer Benefit Plan / Subscriber ID Effective Phone Address T [facility] [id number] 2013-Prese Medic are Adv [email or web address] HMO MANAGED MEDICARE ADV MEDICARE HMO [phone] (Home) LATESHA FANG [id number] documented as of this encounter
--- OUTSIDE RECORDS SUMMARY | 2020-09-26 08:29 | XMS REPORT | Summary of Care ---
:1935 Author Organization [facility] - Health Address [address] [place] [address] Care Team Providers Name Role Phone Marco Rizvi MD Primary Care Provider Reason for Visit Reason Comments Transition Of Care Encounter Details Date Type Department Care Team Description 08/22/2020 Transition of Care [facility] Tatianna De La Rosa Transition Of Care [facility] RN [phone] Allergies Active Allergy Reactions Severity Noted Date Comments Ciprofloxacin Rash 08/19/2020 documented as of this encounter (statuses as of 08/22/2020) Medications Medication Sig Dispensed Refills Start Date [...] as of this encounter (statuses as of 08/22/2020) Active Problems Problem Noted Date Leg weakness, bilateral 08/20/2020 TIA (transient ischemic attack) 08/19/2020 documented as of this encounter (statuses as of 08/22/2020) Immunizations Name Administration Dates Next Due Influenza High Dose Quad 07/20/2020 documented as of this encounter Social History Tobacco Use Types Packs/Day Years Used Date Never Assessed Sex Assigned at Date Recorded Not on file COVID-19 Exposure Response Date Recorded In the last month, have you been in contact with No / Unsure 08/19/2020 9:11 AM 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 documented as of this encounter Last Filed Vital Signs Not on filedocumented in this encounter Miscellaneous Notes Telephone Encounter - Tatianna De La Rosa RN - 08/22/2020 3:52 PM CST TRANSITIONAL CARE MANAGEMENT ASSESSMENT 08/22/2020 Scarlett Garrett [id number] Scarlett Garrett is a 85 year old /White female was admitted on 08/19/[address] She was discharged on 08/20/20 with discharge disposition of HR- Routine Discharge. 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 She states she had wonderful care at [facility].) Discharge Instructions Do you understand your at-home instructions?: Yes Medications Have you filled your prescriptions and do you have them in your home? : Yes Do you know how to take your medications?: Yes Supplies Did you receive applicable home medical supplies/equipment?: N/A Follow Up Appointment Has a follow up appointment been scheduled?: No May I assist with scheduling this appointment?: Patient has outside PCP(she declines need for any [facility] appts at this time.) Do you have any questions about your follow up appointments?: No Are you able to get to your appointment? Who will be taking you?: Yes(family) Home Health Assistance Has the home health nurse contacted you since you've been home?: Yes([facility] Future Appointments: documented in this encounter Plan of Treatment Health Maintenance Due Date Last Done Comments Depression Screening 1948 DTaP,Tdap,and Td Vaccines (1 - Tdap) 1955 Zoster Recombinant Vaccine (SHINGRIX) (1 of 2) 1986 Medicare Wellness Visit 2001 Osteoporosis Screening 2001 PNEUMOCOCCAL VACCINES 65+ (1 of 1 - PPSV23) 2001 INFLUENZA VACCINE Completed 07/20/2020 documented as of this encounter Implants Implanted Type Area Pilot Fuel Engineer Device Shelf Model / Identifier Expiration Date Ser ial / Lot Pin-08/19/2007 PIN Left: Implanted: 08/19/2007 (Quantity not on file) Elbow Plate-08/19/2009 PLATE Back Implanted: 08/19/2009 (Quantity not on file) documented as of this encounter Results Not on filedocumented in this encounter Insurance Payer Benefit Plan / Subscriber ID Effective Phone Address T e Group Dates [facility] [id number] 2013-Prese Medic are Adv HEALTHCARE - HEALTHCARE nt HMO MANAGED MEDICARE ADV MEDICARE HMO documented as of this encounter
--- OUTSIDE RECORDS SUMMARY | 2020-09-26 08:30 | XMS REPORT | Summary of Care ---
:1935 Author Organization [facility] Address [address] [place] [address] Care Team Providers Name Role Phone Raman Rizvi MD Primary Care Provider Reason for Referral (Routine) Status Reason Specialty Diagnoses / Referred By Referred To Procedures Contact Contact New Request Electroneurodiagnostic Diagnoses Muscle weakness Raman Newman Adc Emg/Ncv Procedures EMGNCV MD Alex Procedures [address] [place] [address], [facility] [id number] 294 Phone: [place], [place] [phone] [address] Fax: Reason for Visit Reason Comments New Patient Referred by Other (Routine) Status Reason Specialty Diagnoses / Referred By Contact Refe rred To Contact Procedures Closed Neurology Diagnoses Leg weakness, bilateral Mariah Walker Laroche, Howard Gene, Procedures Discharge Follow-up: Specialty Provider RAMAN NEWMAN; 4-6 Weeks MD CHAM[facility] [address] [phone] Phone: Encounter Details Date Type Department Care Team Description 09/11/2020 Office Visit [facility] Raman Newman B12 deficien cy (Primary Dx); Neurology-Murray Johnson MD Muscle weakness [address] [place] [phone] Allergies Active Allergy Reactions Severity Noted Date Comments Ciprofloxacin Rash 08/19/2020 documented as of this encounter (statuses as of 09/17/2020) Medications Medication Sig Dispensed Refills Start Date [...] as of this encounter (statuses as of 09/17/2020) Active Problems Problem Noted Date Leg weakness, bilateral 08/20/2020 TIA (transient ischemic attack) 08/19/2020 documented as of this encounter (statuses as of 09/17/2020) Immunizations Name Administration Dates Next Due Influenza High Dose Quad 07/20/2020 documented as of this encounter Social History Tobacco Use Types Packs/Day Years Used Date Never Smoker Smokeless Tobacco: Never Used Sex Assigned at Date Recorded Not on file COVID-19 Exposure Response Date Recorded In the last month, have you been in contact with No / Unsure 09/11/2020 3:16 PM HEALTHCARE ADMINISTRATION INTERN someone who was confirmed or suspected to have Coronavirus / COVID-19? documented as of this encounter Last Filed Vital Signs Vital Sign Reading Time Taken Comments Blood Pressure 126/64 09/11/2020 3:31 PM HEALTHCARE ADMINISTRATION INTERN Pulse 63 09/11/2020 3:31 PM HEALTHCARE ADMINISTRATION INTERN Temperature - - Respiratory Rate - - Oxygen Saturation 100% 09/11/2020 3:31 PM HEALTHCARE ADMINISTRATION INTERN Inhaled Oxygen Concentration - - Weight 68.6 kg (151 lb 4.8 oz) 09/11/2020 3:31 PM HEALTHCARE ADMINISTRATION INTERN Height 175.3 cm (5' 9") 09/11/2020 3:31 PM HEALTHCARE ADMINISTRATION INTERN Body Mass Index 22.34 09/11/2020 3:31 PM HEALTHCARE ADMINISTRATION INTERN documented in this encounter Progress Notes Raman Newman MD - 09/11/2020 3:00 PM CSTSummary: H&P I have verified the medical student documentation and/or findings, including the history, physical exam, and medical decision making for the patient Scarlett Garrett on 09/11/2020. Additionally, I have personally performed or re-performed the physical and neurological exam and medical decision making activities of this patient's evaluation and management service. Raman Newman MD Construction Safety Manager Neurology HISTORY OF PRESENT ILLNESS: Scarlett Garrett is a 85 year old female who was referred to neurology for generalized weakness and concern for early-stage dementia. She has a history of syncopal episodes that are related related to her Afib and valvular insufficiency, as well as 1 episode on 08/20/2020 related to hyponatremia. She was hospitalized for her episode of weakness/syncope on 08/20/2020. At that time, a brain MRI ruled out stroke or tumor as the cause of the episode. She also has a history of scoliosis and degenerative disk disease for which she had spine surgery. This may be a source of her nerve weakness. She has been evaluated in the past for myasthenia gravis and myopathy, which were ruled out as the cause of her weakness. ROS questions to the patient. Cardiac: chest pain, shortness of breath, easy fatigue, arrhythmia, swelling of legs. Respiratory: cough, with sputum production, wheezing, insomnia. G.I.: nausea, vomiting, diarrhea, poor appetite, blood in stool, difficult swallow. Urinary: pain with urination, blood with urination, incontinence, difficulty urinating. Skin: discoloration, itching, change in hair or nails, skin breakdown. Hematology/immunology: easy bruising, malignancy. Head, nose, throat: ringing of ears, loss of hearing, nosebleeds, sores in mouth, hoarseness, facial pain. Neurology: dizziness, tremor, change in speech, seizures, fainting spells, loss of memory, weakness arm or leg, numbness arm or leg, word finding defect. Endocrine: hot cold intolerance, excessive urination, increased thirst, increased sweating. Psychiatric: disorientation, depression, anxiety, mood disorder, loss of contact with reality, anger. Eyes: change in vision, eye pain, double vision, blurred vision, eyelid droop. Skeletal: pain in joints, muscle pain, back pain, neck pain, swelling of joints, swelling of the hands. Pertinent patient responses: The patient has complained of generalized weakness but no muscle pain. She has also complained of head pain, and some memory loss. She has also experienced back pain. Radiology: Chest 1 View Result Date: 08/19/2020 No [...] grade stenosis or large vessel occlusion identified. PMH: Atrial fibrillation Cardiac valve dysfunction Anxiety Multilevel radiculopathy and degenerative disk disease Current Outpatient Medications: atorvastatin 40 mg tablet, Take 1 tablet by mouth at bedtime for 90 days., Disp: 30 tablet, Rfl: 2 ALPRAZolam (XANAX) 0.25 mg tablet, Take 0.25 mg by mouth as needed for Other (anxiety)., Disp: , Rfl: apixaban (ELIQUIS) 5 mg tablet, Take 5 mg by mouth 2 (two) times daily., Disp: , Rfl: furosemide (LASIX) 20 mg tablet, Take 20 mg by mouth daily., Disp: , Rfl: Levothyroxine 100 mcg capsule, Take by mouth., Disp: , Rfl: metoprolol succinate XL 25 mg 24 hr tablet, Take 25 mg by mouth daily., Disp: , Rfl: montelukast (SINGULAIR) 10 mg tablet, Take 10 mg by mouth., Disp: , Rfl: olmesartan (BENICAR) 20 mg tablet, Take 20 mg by mouth., Disp: , Rfl: traZODone 100 mg tablet, Take 100 mg by mouth at bedtime., Disp: , Rfl: No Family history relevant to office visit given. Surgical history Spine surgery to correct scoliosis - vertebrae fused from L1 to sacrum Social History Socioeconomic History Marital status: Spouse name: Not on file Number of children: Not on file Years of education: Not on file Highest education level: Not on file Occupational History Not on file Social Needs Financial resource strain: Not on file Food insecurity Worry: Not on file Inability: Not on file Transportation needs Medical: Not on file Non-medical: Not on file Tobacco Use Smoking status: Never Smoker Smokeless tobacco: Never Used Substance and Sexual Activity Alcohol use: Not on file Drug use: Not on file Sexual activity: Not on file Lifestyle Physical activity Days per week: Not on file Minutes per session: Not on file Stress: Not on file Relationships Social connections Talks on phone: Not on file Gets together: Not on file Attends anabaptism service: Not on file Active member of club or organization: Not on file Attends meetings of clubs or organizations: Not on file Relationship status: Not on file Intimate partner violence Fear of current or ex partner: Not on file Emotionally abused: Not on file Physically abused: Not on file Forced sexual activity: Not on file Other Topics Concern Not on file Social History Narrative Not on file Neurologic Exam Mental Status Oriented to person, place, and time. Registration: recalls 3 of 3 objects. Recall at 5 minutes: recalls 3 of 3 objects. Attention: normal. Concentration: normal. Speech: speech is normal Level of consciousness: alert Knowledge: good. Able to name object. Able to read. Able to repeat. Able to write. Normal comprehension. Motor Exam Muscle bulk: normal Overall muscle tone: normal Strength Strength 5/5 except as noted. Right biceps: 4/5 Left biceps: 4/5 Right triceps: 4/5 Left triceps: 4/5 Right wrist flexion: 4/5 Left wrist flexion: 4/5 Right wrist extension: 4/5 Left wrist extension: 4/5 Right interossei: 5/5 Left interossei: 5/5 Gait, Coordination, and Reflexes Reflexes Right brachioradialis: 1+ Left brachioradialis: 1+ Right biceps: 1+ Left biceps: 1+ Right patellar: 1+ Left patellar: 1+ Right achilles: 1+ Left achilles: 1+ Primary sensory exam to light and sharp touch was intact but vibratory sense was diminished in the feet. Patient is able to ambulate on her own . Toqpoi-ik-wdeg and heel to hawkins slowly accomplished. No tremors appreciated. Patient is alert and oriented times 3, cooperative during the examination. Some short-term memory loss was present, but her insight and judgment seems to be intact. Cardiovascular regular rate and rhythm no murmurs audible. No carotid bruits were present. No cyanosis or edema present involving the lower extremities. She is retaining cervical range of motion and no significant spinal pain on palpation today. Vital signs: BP 126/64 (BP Location: Right arm, Patient Position: Sitting, BP CUFF SIZE: Adult Medium) | Pulse 63 | Ht 5' 9" (1.753 m) | Wt 151 lb 4.8 oz (68.6 kg) | SpO2 100% | BMI 22.34 kg/m ASSESSMENT AND RECOMMENDATIONS: ICD-10-CM ICD-9-CM 1. B12 deficiency E53.8 266.2 2. Muscle weakness M62.81 728.87 Scarlett Garrett is an 85 year old female who was evaluated today for generalized weakness that has affected her for several years. She has a recent history of syncopal episodes that are likely related to her Afib and valvular insufficiency, causing poor cardiac output. She has been evaluated in the past for myasthenia gravis and myopathy with Ach receptor Ab test and creatine kinase levels. Both etiologies were ruled out. Patient has a history of degenerative disk disease and multilevel radiculopathy treated with spine surgery, which is likely contributing to her weakness. Reflexes were diminished in both upper and lower extremities bilaterally. Patient's daughter wanted her to be evaluated for dementia. She scored 26/30 on the MOCA and performed well on mental status exam. Dementia is unlikely at this time. We discussed with patient the options of performing EMG and repeat Ach receptor Ab test, but concluded that neither would be likely to help since tests for myopathy and myasthenia gravis have been negative in the recent past. Muscle biopsy is unnecessary at this time since it is an invasive procedure and is unlikely to yield much useful information. Patient was counseled to follow up with us if symptoms continue to worsen. Generalized muscle weakness 1. Follow up with neurology if symptoms continue to worsen THCARE ADMINISTRATION INTERN Raman Newman MD - 09/11/2020 3:00 PM CSTHISTORY OF PRESENT ILLNESS: Scarlett Garrett is a 85 year old female with a PMH of Afib, anxiety, scoliosis, and degenerative disk disease who was referred to neurology for evaluation of weakness. 3 weeks ago she had a syncopal episode See other note. documented in this encounter Plan of Treatment Name Type Priority Associated Diagnoses Order S chedule VITAMIN B12, LEVEL LAB Routine B12 deficiency Expecte d: 09/11/2020, Expires: 2020 CREATINE KINASE LAB Routine Muscle weakness Expected: 09/11/2020, Expires: 2020 ACETYLCHOLINE BINDING AB LAB Routine Muscle weakness Expected: 09/11/2020, Expires: 2020 ACETYLCHOLINE BLOCKING AB LAB Routine Muscle weakness Expected: 09/11/2020, Expires: 2020 EMGNCV EMG Routine Muscle weakness Expected: , Expires: 2020 Health Maintenance Due Date Last Done Comments Depression Screening 1948 DTaP,Tdap,and Td Vaccines (1 - Tdap) 1955 Zoster Recombinant Vaccine (SHINGRIX) (1 of 2) 1986 Medicare Wellness Visit 2001 Osteoporosis Screening 2001 PNEUMOCOCCAL VACCINES 65+ (1 of 1 - PPSV23) 2001 INFLUENZA VACCINE Completed 07/20/2020 documented as of this encounter Implants Implanted Type Area Rn New Graduate Device Shelf Model / Identifier Expiration Date Ser ial / Lot Pin-08/19/2007 PIN Left: Implanted: 08/19/2007 (Quantity not on file) Elbow Plate-08/19/2009 PLATE Back Implanted: 08/19/2009 (Quantity not on file) documented as of this encounter Results Not on filedocumented in this encounter Visit Diagnoses Diagnosis B12 deficiency - Primary Other B-complex deficiencies Muscle weakness Muscle weakness (generalized) documented in this encounter Insurance Payer Benefit Plan / Subscriber ID Effective Phone Address T ype Group Dates [facility] [id number] 2013-Prese Medic are Adv HEALTHCARE - HEALTHCARE HMO MANAGED MEDICARE ADV MEDICARE HMO [phone] [facility] [address] (Home) [place], [place] [address] documented as of this encounter
--- OUTSIDE RECORDS SUMMARY | 2020-09-26 08:31 | XMS REPORT | Summary of Care ---
:1935 Author Organization [facility] Address [address] [place] [address] Care Team Providers Name Role Phone Raman Rizvi MD Primary Care Provider Reason for Referral (Routine) Status Reason Specialty Diagnoses / Referred By Referred To Procedures Contact Contact New Request Electroneurodiagnostic Diagnoses Muscle weakness Raman Newman Adc Emg/Ncv Procedures EMGNCV MD Alex Procedures [address] [place] [address], [facility] [phone] Phone: [place], [place] [phone] Fax: Reason for Visit Reason Comments New Patient Referred by Other (Routine) Status Reason Specialty Diagnoses / Referred By Contact Refe rred To Contact Procedures Closed Neurology Diagnoses Leg weakness, bilateral Mariah Walker Laroche, Howard Gene, Procedures Discharge Follow-up: Specialty Provider RAMAN NEWMAN; 4-6 Weeks MD CH[facility] [address] [phone] Phone: Encounter Details Date Type Department Care Team Description 09/11/2020 Office Visit [facility] Raman Newman B12 deficien cy (Primary Dx); Neurology-Murray Johnson MD Muscle weakness [address] [place] [phone] Allergies Active Allergy Reactions [...] with No / Unsure 09/11/2020 3:16 PM TEST CARRIER someone who was confirmed or suspected to have Coronavirus / COVID-19? documented as of this encounter Last Filed Vital Signs Vital Sign Reading Time Taken Comments Blood Pressure 126/64 09/11/2020 3:31 PM TEST CARRIER Pulse 63 09/11/2020 3:31 PM TEST CARRIER Temperature - - Respiratory Rate - - Oxygen Saturation 100% 09/11/2020 3:31 PM TEST CARRIER Inhaled Oxygen Concentration - - Weight 68.6 kg (151 lb 4.8 oz) 09/11/2020 3:31 PM TEST CARRIER Height 175.3 cm (5' 9") 09/11/2020 3:31 PM TEST CARRIER Body Mass Index 22.34 09/11/2020 3:31 PM TEST CARRIER documented in this encounter Progress Notes Raman [...] evaluation and management service. Raman Newman MD Entry Level Staff Accountant Neurology HISTORY OF PRESENT ILLNESS: Scarlett Garrett [...] file Gets together: Not on file Attends zoroastrianism service: Not on file Active member of [...] able to ambulate on her own . Bjwyjt-dw-ainq and heel to hawkins slowly accomplished. No [...] with neurology if symptoms continue to worsen CARRIER Raman Newman MD - 09/11/2020 3:00 PM [...] of this encounter Implants Implanted Type Area Straight Slicing Machine Operator Device Shelf Model / Identifier Expiration Date [...] Effective Phone Address T ype Group Dates [facility] [id number] 2013-Prese Medic are Adv HEALTHCARE - HEALTHCARE HMO MANAGED MEDICARE ADV MEDICARE HMO [phone] [facility] [address] (Home) [place], [place] [address] documented as of this encounter
[2020-09-26 09:16] LABS: Absolute Lymphocytes (CBC) 0.8 K/uL (0.7-4.9); Hematocrit 28.6 % (36.0-45.0); Lymphocytes % 12.2 % (15.3-44.8); MPV 6.9 fL (7.6-11.3); RBC Red Blood Cell Count 3.04 M/uL (3.86-4.86)
[2020-09-26 09:30] LABS: Magnesium 2.4 mg/dL (1.8-2.4); NT PRO-BNP 2313 pg/mL (<450); Troponin (Emerg Dept Use Only) < 0.02 ng/mL (0.0-0.045)
--- NOTE | 2020-09-26 09:47 | RAD REPORT ---
EXAM DESCRIPTION: RAD - Chest Single View - 09/26/2020 8:54 am CLINICAL HISTORY: weakness, shortness of breath COMPARISON: June 26 TECHNIQUE: AP portable chest image was obtained 09/26/2020 8:54 am . FINDINGS: No focal mass or consolidation. No failure or volume overload. Interstitial pattern is pro minent but stable. Heart and vasculature are normal. No measurable pleural effusion and no pneumothor ax. No acute bony abnormality seen. No acute aortic findings suspected. IMPRESSION: No acute cardiopulmonary process. No significant change from comparison study.
[2020-09-26 09:55] LABS: Albumin 3.3 g/dL (3.4-5.0); Bilirubin Direct 0.1 mg/dL (0-0.2); Bilirubin Total 0.4 mg/dL (0.2-1.0); Protein, Total 6.2 g/dL (6.4-8.2); Protime INR 1.28
--- NOTE | 2020-09-26 10:50 | ER ---
Nurse's Notes [facility] Name: Scarlett Garrett Age: 85 yrs Sex: Female : 1935 Arrival Date: 09/26/2020 Time: 08:01 Bed 17 Private MD: Diagnosis: Weakness Presentation: 09/26 08:13 Chief complaint:. ph 08:15 Chief complaint: EMS states: Pt reports having blood work done recently and some values ph are out of range, also c/o increased swelling to charley legs and generalized weakness, spoke to Dr Mcneill who instructed pt to take ambulance to [facility] and then be transferred to [facility]HA[facility] Mariscal, BGL 86. Coronavirus screen: Client denies travel out of the [place] in the last 14 days. Ebola Screen: No symptoms or risks identified at this time. Initial Sepsis Screen: Does the patient meet any 2 criteria? No. Patient's initial sepsis screen is negative. Does the patient have a suspected source of infection? No. Patient's initial sepsis screen is negative. Risk Assessment: Do you want to hurt yourself or someone else? Patient reports no desire to harm self or others. Onset of symptoms was September 26, 2020. 08:15 Method Of Arrival: EMS: [facility] ph 08:15 Acuity: VANESA 3 ph Historical: - Allergies: 08:22 Cipro; ph 08:22 Levaquin; ph - Home Meds: 08:22 areds daily [Active]; Celebrex 200 mg Oral cap 1 cap once daily [Active]; Fish Oil Oral ph daily [Active]; Flonase 50 mcg/actuation Nasal spsn 1 spray once daily [Active]; levothyroxine 50 mcg tab 1 tab once daily [Active]; Lexapro 10 mg Oral tab 1 tab once daily [Active]; metoprolol tartrate 37.5 mg Oral tab 1 tab 2 times per day [Active]; trazodone 100 mg Oral tab nightly [Active]; Zyrtec 10 mg Oral tab 1 tab once daily [Active]; Eliquis oral oral [Active]; Singulair Oral [Active]; Lasix Oral [Active]; - PMHx: 08:22 Arthritis; Depression; mitral valve; severe tricuspid valve regurgitation; Atrial Fib; ph Hypertension; Hypothyroidism; - PSHx: 08:22 hip replacement; back; ph - Immunization history:: Adult Immunizations unknown. - Social history:: Smoking status: Patient denies any tobacco usage or history of. Patient/guardian denies using alcohol, street drugs, The patient lives with family. - Family history:: not pertinent. Screenin:23 Abuse screen: Denies threats or abuse. Denies injuries from another. Nutritional ph screening: No deficits noted. Tuberculosis screening: No symptoms or risk factors identified. Fall Risk No fall in past 12 months (0 pts). No secondary diagnosis (0 pts). IV access (20 points). Ambulatory Aid- None/Bed Rest/Nurse Assist (0 pts). Gait- Weak (10 pts.). Mental Status- Oriented to own ability (0 pts). Total Bolanos Fall Scale indicates Low Risk Score (25-44 pts). Fall prevention measures have been instituted. Side Rails Up X 2 Placed close to Nursing Station Frequent Obs/Assesments occuring As available Patient and Family Educated on Fall Prevention Program and strategies. Assessment: 09:00 General: Appears in no apparent distress. comfortable, well groomed, Behavior is calm, ph cooperative, appropriate for age, Reports fatigue for Denies fever. Pain: Denies pain. Neuro: Level of Consciousness is awake, alert, obeys commands, Oriented to person, place, time, situation, Reports weakness. Cardiovascular: Reports fatigue, lightheadedness, Denies chest pain, nausea, palpitations, shortness of breath, vomiting, Capillary refill < 3 seconds in bilateral fingers Patient's skin is warm and dry. Respiratory: Airway is patent Respiratory effort is even, unlabored, Respiratory pattern is regular, symmetrical. GI: No signs and/or symptoms were reported involving the gastrointestinal system. Derm: Skin is intact, Skin is pink, warm \T\ dry. Musculoskeletal: Circulation, motion, and sensation intact. Range of motion: intact in all extremities. 10:00 Reassessment: Patient appears in no apparent distress at this time. Patient and/or ph family updated on plan of care and expected duration. Pain level reassessed. Patient is alert, oriented x 3, equal unlabored respirations, skin warm/dry/pink. 11:00 Reassessment: Patient appears in no apparent distress at this time. Patient and/or ph family updated on plan of care and expected duration. Pain level reassessed. Patient is alert, oriented x 3, equal unlabored respirations, skin warm/dry/pink. Daughter at bedside. Vital Signs: 08:15 BP 126 / 62; Pulse 57; Resp 18; Temp 97.0; Pulse Ox 95% on R/A; ph 10:25 BP 124 / 57; Pulse 57; Resp 18; Pulse Ox 100% on 2 lpm NC; ph 11:31 BP 114 / 64; Pulse 58; Resp 18; Temp 97.5; Pulse Ox 96% on R/A; ph ED Course: 08:01 Patient arrived in ED. ph 08:02 Yuliya Fung MD is Attending Physician. ma2 08:15 Antionette Kaur, RN is Primary Nurse. ph 08:18 Triage completed. ph 08:23 Arm band placed on Patient placed in an exam room, on a stretcher, on assembly hand, ph on pulse oximetry. 08:23 Patient has correct armband on for positive identification. Bed in low position. Call ph light in reach. Side rails up X2. credit correspondence clerk on. Pulse ox on. NIBP on. Door closed. Noise minimized. Warm blanket given. 08:54 XRAY Chest (1 view) In Process Unspecified. EDMS 10:17 Inserted saline lock: 22 gauge in left antecubital area, using aseptic technique. jb1 11:30 No provider procedures requiring assistance completed. IV discontinued, intact, ph bleeding controlled, No redness/swelling at site. Pressure dressing applied. Administered Medications: No medications were administered Outcome: 10:49 Discharge ordered by . maBilly 11:31 Patient left the ED. ph 11:31 Discharged to home via wheelchair, with family. ph 11:31 Condition: good 11:31 Discharge instructions given to patient, family, Instructed on discharge instructions, follow up and referral plans. Demonstrated understanding of instructions, follow-up care. Signatures: Dispatcher [employer] EDMS Norris Rod jb1 Antionette Kaur, LEE ANN RN Yuliya Fung MD MD ma2
--- NOTE | 2020-09-26 10:50 | EDPHYS ---
Physician Documentation [facility] Name: Scarlett Garrett Age: 85 yrs Sex: Female : 1935 Arrival Date: 09/26/2020 Time: 08:01 Bed 17 Private MD: ED Physician Yuliya Fung HPI: 09/26 10:47 This 85 yrs old Female presents to ER via EMS with complaints of General ma2 Weakness - Dr ontiveros transferred to [facility]. 10:47 This 85 yrs old Female presents to ER via EMS with complaints of General ma2 Weakness . 10:47 patient had generalized weakness for the last week, no other sympotms . Onset: The ma2 symptoms/episode began/occurred gradually, 1 week(s) ago. Severity of symptoms: At their worst the symptoms were very mild in the emergency department the symptoms have resolved. The patient has experienced similar episodes in the past. Historical: - Allergies: 08:22 Cipro; ph 08:22 Levaquin; ph - Home Meds: 08:22 areds daily [Active]; Celebrex 200 mg Oral cap 1 cap once daily [Active]; Fish Oil Oral ph daily [Active]; Flonase 50 mcg/actuation Nasal spsn 1 spray once daily [Active]; levothyroxine 50 mcg tab 1 tab once daily [Active]; Lexapro 10 mg Oral tab 1 tab once daily [Active]; metoprolol tartrate 37.5 mg Oral tab 1 tab 2 times per day [Active]; trazodone 100 mg Oral tab nightly [Active]; Zyrtec 10 mg Oral tab 1 tab once daily [Active]; Eliquis oral oral [Active]; Singulair Oral [Active]; Lasix Oral [Active]; - PMHx: 08:22 Arthritis; Depression; mitral valve; severe tricuspid valve regurgitation; Atrial Fib; ph Hypertension; Hypothyroidism; - PSHx: 08:22 hip replacement; back; ph - Immunization history:: Adult Immunizations unknown. - Social history:: Smoking status: Patient denies any tobacco usage or history of. Patient/guardian denies using alcohol, street drugs, The patient lives with family. - Family history:: not pertinent. ROS: 10:47 Constitutional: Negative for fever, chills, and weight loss. ma2 10:47 All other systems are negative. Exam: 10:47 Constitutional: This is a well developed, well nourished patient who is awake, alert, ma2 and in no acute distress. Head/Face: Normocephalic, atraumatic. Eyes: Pupils equal round and reactive to light, extra-ocular motions intact. Lids and lashes normal. Conjunctiva and sclera are non-icteric and not injected. Cornea within normal limits. Periorbital areas with no swelling, redness, or edema. ENT: Nares patent. No nasal discharge, no septal abnormalities noted. Tympanic membranes are normal and external auditory canals are clear. Oropharynx with no redness, swelling, or masses, exudates, or evidence of obstruction, uvula midline. Mucous membranes moist. Neck: Trachea midline, no thyromegaly or masses palpated, and no cervical lymphadenopathy. Supple, full range of motion without nuchal rigidity, or vertebral point tenderness. No Meningismus. Chest/axilla: Normal chest wall appearance and motion. Nontender with no deformity. No lesions are appreciated. Cardiovascular: Regular rate and rhythm with a normal S1 and S2. No gallops, murmurs, or rubs. Normal PMI, no JVD. No pulse deficits. Respiratory: Lungs have equal breath sounds bilaterally, clear to auscultation and percussion. No rales, rhonchi or wheezes noted. No increased work of breathing, no retractions or nasal flaring. Abdomen/GI: Soft, non-tender, with normal bowel sounds. No distension or tympany. No guarding or rebound. No evidence of tenderness throughout. Back: No spinal tenderness. No costovertebral tenderness. Full range of motion. Skin: Warm, dry with normal turgor. Normal color with no rashes, no lesions, and no evidence of cellulitis. MS/ Extremity: Pulses equal, no cyanosis. Neurovascular intact. Full, normal range of motion. Neuro: Awake and alert, GCS 15, oriented to person, place, time, and situation. Cranial nerves II-XII grossly intact. Motor strength 5/5 in all extremities. Sensory grossly intact. Cerebellar exam normal. Normal gait. Psych: Awake, alert, with orientation to person, place and time. Behavior, mood, and affect are within normal limits. Vital Signs: 08:15 BP 126 / 62; Pulse 57; Resp 18; Temp 97.0; Pulse Ox 95% on R/A; ph 10:25 BP 124 / 57; Pulse 57; Resp 18; Pulse Ox 100% on 2 lpm NC; ph 11:31 BP 114 / 64; Pulse 58; Resp 18; Temp 97.5; Pulse Ox 96% on R/A; ph MDM: 08:02 Patient medically screened. al2 10:47 Differential Diagnosis generalized weakness is resolved now, patient has no syx, exam ma2 wnl, vs wnl, workup all wnl, patient want to go home and f//u with pcp. Data reviewed: vital signs, nurses notes. Counseling: I had a detailed discussion with the patient and/or guardian regarding: the historical points, exam findings, and any diagnostic results supporting the discharge/admit diagnosis, the presence of at least one elevated blood pressure reading (>120/80) during this emergency department visit, the need for outpatient follow up. Response to treatment: the patient's symptoms have markedly improved after treatment. 09/26 08:05 Order name: Basic Metabolic Panel [facility] 09/26 08:05 Order name: CBC with Diff [facility] 09/26 08:05 Order name: LFT's [facility] 09/26 08:05 Order name: Magnesium [facility] 09/26 08:05 Order name: NT PRO-BNP [facility] 09/26 08:05 Order name: PT-INR [facility] 09/26 08:05 Order name: Troponin (emerg Dept Use Only) [facility] 09/26 08:15 Order name: COVID-19 [facility] 09/26 09:30 Order name: Troponin (Emerg Dept Use Only); Complete Time: 09:40 EDMS 09/26 09:30 Order name: NT PRO-BNP; Complete Time: 09:40 EDMS 09/26 09:30 Order name: Magnesium; Complete Time: 09:40 EDMS 09/26 09:42 Order name: CBC with Automated Diff; Complete Time: 10:11 EDMS 09/26 09:55 Order name: Basic Metabolic Panel; Complete Time: 10:11 EDMS 09/26 08:05 Order name: XRAY Chest (1 view); Complete Time: 10:11 al2 09/26 08:05 Order name: EKG; Complete Time: 08:06 [facility] 09/26 08:05 Order name: Cardiac monitoring; Complete Time: 09:07 ma2 09/26 08:05 Order name: EKG - Nurse/Tech; Complete Time: 09:07 ma2 09/26 08:05 Order name: IV Saline Lock; Complete Time: 10:36 ma2 09/26 08:05 Order name: Labs collected and sent; Complete Time: 09:07 ma2 09/26 08:05 Order name: O2 Per Protocol; Complete Time: 09: ma2 09/26 08:05 Order name: O2 Sat Monitoring; Complete Time: 09: ma2 09/26 09:55 Order name: Liver (Hepatic) Function; Complete Time: 10:11 EDMS 09/26 10:13 Order name: SARS-COV-2 RT PCR; Complete Time: 10:50 EDMS 09/26 10:15 Order name: Protime (+INR); Complete Time: 10:50 EDMS Administered Medications: No medications were administered Disposition: 09/26/20 10:49 Discharged to Home. Impression: Weakness. - Condition is Stable. - Discharge Instructions: Weakness, [id number]. - Medication Reconciliation Form, Thank You Letter, Antibiotic Education, Prescription Opioid Use form. - Follow up: Private Physician; When: Tomorrow; Reason: Continuance of care. Signatures: Dispatcher [employer] Antionette Urrutia RN RN Yuliya Vazquez MD MD ma2 Corrections: (The following items were deleted from the chart) 11:31 10:49 09/26/2020 10:49 Discharged to Home. Impression: Weakness. Condition is Stable. ph Forms are Medication Reconciliation Form, Thank You Letter, Antibiotic Education, Prescription Opioid Use. Follow up: Private Physician; When: Tomorrow; Reason: Continuance of care. ma2
--- NOTE | 2020-09-27 11:00 | EKG ---
Test Date: 2020-09-26 Test Time: 08:41:43 Drain Cleaner: PH MEASUREMENT RESULTS: Intervals: Rate: 55 NV: 222 QRSD: 88 QT: 468 QTc: 447 Suring: P: 69 NV: 222 QRS: 26 T: 37 INTERPRETIVE STATEMENTS: Sinus bradycardia with 1st degree AV block Otherwise normal ECG Compared to ECG 06/26/2020 17:15:18 No significant changes Electronically Signed On 09-27-20 10:56:42 AUTO OVERHAULER by Mingo David
== END 2020-09-26 11:31 | disposition home or self-care (01) ==
LOC: ER 07:57
DX: R53.1 Weakness (principal); Z20.828 Contact with and (suspected) exposure to other viral communicable diseases; I10 Essential (primary) hypertension; E03.9 Hypothyroidism, unspecified; I48.91 Unspecified atrial fibrillation; F32.9 Major depressive disorder, single episode, unspecified; Z88.1 Allergy status to other antibiotic agents; Z79.01 Long term (current) use of anticoagulants
CPT/HCPCS: 93005; 85025; 80048; 36415; 83735; 85610; 80076; 84484; 83880; 71045; 99284; U0003

== ENCOUNTER 2020-12-07 19:45 | Emergency (ER) | payer OTHER ==
--- OUTSIDE RECORDS SUMMARY | 2020-12-07 19:47 | XMS REPORT | Continuity of Care Document ---
:1935 Author Organization [facility] t Address [address] [place] [address] Care Team Providers Name Role Phone Asked, Given Primary Care Physician Unavailable Paty CHAMBERS, Gene Attending Clinician Torsten Solano MD Attending Clinician Payers Payer Name Policy Type Policy Effective Date Expiration Date Sour ce Number UHC MEDICAREUHC [id number] 2019 [place] [employer] MEDICARE 00:00:00 [place] [id number]/10/20 020-PresentPPO Problems Condition Condition Condition Status Onset [...] 00 s to drug levoflox DA Active ID [facility] 03-07 [place] [facility] Social History Social Habit Start Date Stop Date Quantity Comments Source Sex Assigned At [facility] Alcohol intake 2017-01-16 2017-01-16 Current drinker Jermaine on [facility] 00:00:00 00:00:00 of alcohol (finding) Smoking Status Start Date Stop Date Source Never smoker [facility] Medications Ordered Filled Start Stop Current Ordering Indication Dosage Frequency Signature Comments Components Source Medication Medication Date Date Medication? Clinician (SIG) Name Name celecoxib 2020-0 Yes 200mg Q.5D Take 200 Tamiko ston (CeleBREX) 8-05 mg by Methodi 200 MG 14:41: mouth 2 st capsule 00 (two) times a day. escitalopra 2020-0 Yes 10mg QD Take 10 mg [facility] (LEXAPRO) 8-05 by mouth Meth perez 10 [...] 25 MG 00 times a tablet day. metoprolol Yes 25mg Q.5D Take 25 mg [place] tartrate 6-01 by mouth 2 Metho di (LOPRESSOR) 12:11: (two) st 25 MG 15 times a tablet day. escitalopra Yes 10mg QD Take 10 mg Leung m (LEXAPRO) 6- by mouth Meth perez 10 MG 12:11: [...] st 10-325) 00 10-325 mg per tablet Immunizations Ordered Immunization Filled Immunization Date Status Commen ts Source Name Name [employer] COVID-19 MRNA 2020-11-24 Completed [place] VACC[place] 00:[place]:00 [facility] PFIZER COVID-19 MRNA 2020-11-03 Completed [place] VACCINATION 00:00:00 [facility] Vital Signs Vital Name Observation Time Observation Value Comments Source Systolic blood 2020-05-23 14:38:00 103 mm[Hg] Kindra n [facility] pressure Diastolic blood 2020-05-23 14:38:00 56 mm[Hg] Jermaine on [facility] pressure Heart rate 2020-05-23 14:38:00 49 /min [facility]hu Mariscal Respiratory rate 2020-05-23 14:38:00 20 /min [place] [facility] Body height 2020-05-23 14:38:00 175.3 cm Madhu Mariscal Body weight 2020-05-23 14:38:00 72.576 kg Madhu Mariscal BMI 2020-05-23 14:38:00 23.63 kg/m2 Madhu Mariscal Oxygen saturation in 2020-05-23 14:38:00 97 /min Madhu Mariscal Arterial blood by Pulse oximetry Procedures Procedure Date / Time Performed Performing Clinician [facility] CARDIAC MRI VALVE 2020-05-30 10:40:07 Dane Solano Ms thodist ASSESSMENT W CONTRAST POC CREATININE 2020-05-23 14:40:00 Dane Solano odist ESTIMATED GFR 2020-05-23 14:40:00 Dane Solano Meth odist HEMATOCRIT 2020-05-23 14:30:00 Dane Solano odmarco Plan of Care Planned Activity Planned Date Details Comments Source Future Scheduled 2020-05-19 INFLUENZA VACCINE Knidra rizo [facility] Test 00:00:00 [code = INFLUENZA VACCINE] Future Scheduled 2001 65+ PNEUMOCOCCAL Madhu [facility] Test 00:00:00 VACCINE (1 of 1 - PPSV23) [code = 65+ PNEUMOCOCCAL VACCINE (1 of 1 - PPSV23)] Future Scheduled 1986 SHINGLES VACCINES (#1) H ouhoda [facility] Test 00:00:00 [code = SHINGLES VACCINES (#1)] Encounters Start End Encounter Admission Attending Care Care Encounter Source Date/Time Date/Time Type Type Clinicians Facility Department ID 2020-11-24 2020-11-24 Outpatient [facility] [id number] [place] 00:00:00 00:00:[address] 2020-11-13 2020-11-13 Telephone Paty [facility] [id number] 00:00:00 00:00:00 Marco Gao [id number] [place] [id number] [facility] [id number] nal 092 [facility] 2020-11-03 2020-11-03 Outpatient [facility] [id number] [place] 00:00:00 00:00:[address] 2020-11-02 2020-11-02 Office Paty [facility] [id number] 14:12:48 16:16:50 Visit Marco Gao [id number] [place] [id number] [facility] [id number] nal 2 [facility] 2020-05-23 2020-05-23 Outpatient [facility] [id number] [place] 00:00:00 00:00:00 DANE [address] 2020-05-23 2020-05-23 Outpatient [facility] [id number] [place] 00:00:00 00:00:00 DANE [address] Results Test Description Test Time Test Comments Results Result Sour e Comments Cardiac mri 2020-05-19 Interface, Radiology [facility] valve assessment 5 Results In - Method ist w contrast 11:55:00 06/02/2020 11:55 AM CDT [place] [facility] CMR Report Name: ANDI SMILEY : 1935 [...] | Normal/Hyper | None | | || [place] | Normal/Hyper | None | | |+ [...] 0 %SCAN INFO =GENERAL ---- SCANNER ---- HYBRID DERIVATIVES TRADER: [facility] MODEL: Tradition [employer]stream[employer]_fit PULSE SEQUENCES: SSFP cine, 2D LGE single-shot, Pre-contrast T1 mapping, Post-contrast T1 mapping, Phase contrast imaging, HASTE morphology, Bright-blood SSFP morphology, 3D contrast enhanced MRA CONTRAST AGENT ----- TYPE: Dotarem LOT NUMBER: [id number] EXPIRATION DATE: 2023-06-18 00:00:00 GD CONCENTRATION: 0.5 M VOLUME ADMINISTERED: 22 ml DOSAGE: 0.15 mmol/kg SERUM CREATININE: 1.1 mg/dL GFR: 50.42 ml/min/1.73m2 CREATININE DATE: 2020-05-23 00:00:00 SEDATION ---- SEDATION USED?: No SETUP ---- SCAN TYPE: Both PATIENT TYPE: Outpatient LOCATION: [facility] INCOMPLETE SCAN: No REASON(S) FOR SCAN: Eval [place] bay valve(s) REFERRING PHYSICIAN: Dane Solano MD ATTENDING PHYSICIAN: Dane Solano MD TECHNICIANS: 1) Chrissie Murrell =Patient Account [id number] Codes 65563, 91296, [id number] Codes I34.0, I36.1, R93.1ADDITIONAL NOTES =AO 55, LVOT 61 (used), PA 62 (no significant direct VT)MRMR RVol = LVSV 93 - LVOT FF 61MR RF = RVol/(LVSV-AR)RVol (mL) 32RF (%) 34%TRRVol = RVSV 110 - PA FF 62 TR TF = RVol/(RVSV-VT)" TR RVol (mL) 48RF (%) 44%VT RVol (mL) 1RF (%) 2%Report generated by [employer], a product of [employer] Hematocrit 2020-05-23 15:38:45 Test Item Value Reference Range Interpretation Comme nts HCT (test code = 4544-3) 28.4 % 37-47 L Lab Interpretation (test code = 47359-0) Abnormal [place] [facility] [id number] 14:44:08 Test Item Value Reference Range Interpretation Comments POC creatinine (test 1.1 mg/dl 0.5-0.9 H Operato r Name: Ng code = 66801-0) PaulineDevic e ID: [id number] Lab Interpretation Abnormal (test code = 77380-3) [place] [facility] [id number] 14:44:08 Test Item Value Reference Range Interpretation Comments Estimated GFR (test 46 mL/min/1.73 m2 A Caterg ory Units code = 84364-9) Interpretati onG1 >=90 Kateryna l or highG2 60-89 Mildly decrease dG3a 45-59 Mil dly to moderately decr xppzcM3f 30-44 Moderately to s everely decreasedG4 15-29 Severe ly decreasedG5 <15 Kidney joel lureThe eGFR was calcul ated using the [facility] Kidney Disease Epidemiology Collaboration ( CKD-EPI) equation. Interpretation is based on recommendati ons of the [facility]-Kidn ey Disease Outcome s Quality Initiat [place] (NKF-KDOQI) pub [facility] in 2013. Lab Interpretation Abnormal (test code = 54710-7) [facility] MRI L-SPINE W/O [id number] 13:16:00 Patient Name: ANDI SMILEY Unit No: [id number] EXAMS: CPT CODE: [id number] MRI L-SPINE W/O CONT [id number] TECHNIQUE: Multiplanar, multisequence MRI examination performed of [...] Reported and signed by: Bartolo Brumfield M.D. [facility] NAME: ANDI SMILEY 74[facility] PHYS: Lobo Villalba MD : 1935 AGE: 84 SEX: F [place] [address] LOC: Y.MRI PHONE #: [phone] EXAM DATE: 12/02/2019 STATUS: DEP CLI FAX #: [phone] RAD #: D/C DT PAGE 1 Signed Report (CONTINUED) Patient Name: ANDI SMILEY Unit No: [id number] EXAMS: CPT CODE: [id number] MRI L-SPINE W/O CONT [id number] <Continued> CC: Richi Sanchez M.D. Technologist: AMRIK FORD, UMESH Transcribed D/ (1316) SilvanoRika [facility] NAME: ANDI SMILEY 74[facility] PHYS: Lobo Villalba MD : 1935 AGE: 84 SEX: F [place] [address] LOC: Y.MRI PHONE #: [phone] EXAM DATE: 12/02/2019 STATUS: DEP CLI FAX #: [phone] RAD #: D/C DT PAGE 2 Signed Report Patient Name: ANDI SMILEY Unit No: [id number] EXAMS: CPT CODE: [id number] MRI L-SPINE W/O CONT [id number] <Continued> Orig Print D/T: S: 12/05/2019 (1320) [facility] NAME: ANDI SMILEY [address] [place] [address] PHYS: Lobo Villalba MD : 1935 AGE: 84 SEX: F [place], [place] [address] LOC: Y.MRI PHONE #: [phone] EXAM DATE: 12/02/2019 STATUS: DENNISE ESPINOZA FAX #: [phone] RAD #: D/C DT PAGE 3 Signed Report
[2020-12-07] MEDS ORDERED: ACETAMINOPHEN 500 MG TAB ONE (21:04)
[2020-12-07 21:17] LABS: Absolute Lymphocytes (CBC) 1.3 K/uL (0.7-4.9); Basophils % 1.1 % (0-1.3); Hematocrit 34.5 % (36.0-45.0); MPV 7.1 fL (7.6-11.3); RBC Red Blood Cell Count 3.64 M/uL (3.86-4.86)
[2020-12-07 21:19] LABS: Protime INR 1.13
[2020-12-07 21:43] LABS: ALT/SGPT 24 U/L (12-78); AST/SGOT 23 U/L (15-37); Albumin 4.1 g/dL (3.4-5.0); Alkaline Phosphatase 70 U/L (45-117); BUN Blood Urea Nitrogen 14 mg/dL (7-18); Bicarbonate 26 mmol/L (21-32); Bilirubin Direct 0.2 mg/dL (0-0.2); Bilirubin Total 0.4 mg/dL (0.2-1.0); Glucose Level 86 mg/dL (74-106); Magnesium 2.2 mg/dL (1.8-2.4); NT PRO-BNP 1045 pg/mL (<450); Potassium 3.9 mmol/L (3.5-5.1); Protein, Total 7.1 g/dL (6.4-8.2); Sodium Level 129 mmol/L (136-145); Troponin (Emerg Dept Use Only) < 0.02 ng/mL (0.0-0.045)
--- NOTE | 2020-12-07 23:23 | EDPHYS ---
Physician Documentation [facility] Name: Scarlett Garrett Age: 85 yrs Sex: Female : 1935 Arrival Date: 12/07/2020 Time: 19:48 Bed 4 Private MD: ED Physician Jhonatan Mcdonnell HPI: 12/07 20:50 This 85 yrs old Female presents to ER via Ambulatory with complaints of Fall mh7 Injury. 20:50 Details of fall: The patient fell from an upright position, while walking. Onset: The mh7 symptoms/episode began/occurred today, at 18:30. Associated injuries: The patient sustained injury to the head, contusion, pain, swelling, tenderness. Severity of symptoms: At their worst the symptoms were moderate, earlier today, in the emergency department the symptoms are unchanged. The patient has experienced similar episodes in the past, several times. Historical: - Allergies: 22:47 Cipro; mg2 22:47 Levaquin; mg2 - PMHx: 22:47 Arthritis; Atrial Fib; Depression; Hypertension; Hypothyroidism; mitral valve; severe mg2 tricuspid valve regurgitation; - Immunization history: Last tetanus immunization: - up to date. - Social history:: Smoking status: unknown. ROS: 20:50 Constitutional: Negative for fever, chills, and weight loss, Eyes: Negative for injury, mh7 pain, redness, and discharge, ENT: Negative for injury, pain, and discharge, Neck: Negative for injury, pain, and swelling. 20:50 Respiratory: Negative for shortness of breath, cough, wheezing, and pleuritic chest pain, Abdomen/GI: Negative for abdominal pain, nausea, vomiting, diarrhea, and constipation, Back: Negative for injury and pain, : Negative for injury, bleeding, discharge, and swelling, MS/Extremity: Negative for injury and deformity, Neuro: Negative for headache, weakness, numbness, tingling, and seizure, Psych: Negative for depression, anxiety, suicide ideation, homicidal ideation, and hallucinations, Allergy/Immunology: Negative for hives, rash, and allergies, Endocrine: Negative for neck swelling, polydipsia, polyuria, polyphagia, and marked weight changes, Hematologic/Lymphatic: Negative for swollen nodes, abnormal bleeding, and unusual bruising. 20:50 Cardiovascular: Positive for chest pain, of the substernal, for past 2 days. Exam: 20:50 Constitutional: This is a well developed, well nourished patient who is awake, alert, mh7 and in no acute distress. 20:50 Eyes: Pupils equal round and reactive to light, extra-ocular motions intact. Lids and lashes normal. Conjunctiva and sclera are non-icteric and not injected. Cornea within normal limits. Periorbital areas with no swelling, redness, or edema. ENT: Nares patent. No nasal discharge, no septal abnormalities noted. Tympanic membranes are normal and external auditory canals are clear. Oropharynx with no redness, swelling, or masses, exudates, or evidence of obstruction, uvula midline. Mucous membranes moist. 20:50 Neck: Trachea midline, no thyromegaly or masses palpated, and no cervical lymphadenopathy. Supple, full range of motion without nuchal rigidity, or vertebral point tenderness. No Meningismus. Chest/axilla: Normal chest wall appearance and motion. Nontender with no deformity. No lesions are appreciated. Cardiovascular: Regular rate and rhythm with a normal S1 and S2. No gallops, murmurs, or rubs. Normal PMI, no JVD. No pulse deficits. Respiratory: Lungs have equal breath sounds bilaterally, clear to auscultation and percussion. No rales, rhonchi or wheezes noted. No increased work of breathing, no retractions or nasal flaring. Abdomen/GI: Soft, non-tender, with normal bowel sounds. No distension or tympany. No guarding or rebound. No evidence of tenderness throughout. Back: No spinal tenderness. No costovertebral tenderness. Full range of motion. Skin: Warm, dry with normal turgor. Normal color with no rashes, no lesions, and no evidence of cellulitis. MS/ Extremity: Pulses equal, no cyanosis. Neurovascular intact. Full, normal range of motion. Neuro: Awake and alert, GCS 15, oriented to person, place, time, and situation. Cranial nerves II-XII grossly intact. Motor strength 5/5 in all extremities. Sensory grossly intact. Cerebellar exam normal. Normal gait. Psych: Awake, alert, with orientation to person, place and time. Behavior, mood, and affect are within normal limits. 20:50 Head/face: Noted is contusion, that is superficial, of the left side of the back of head, swelling, that is mild, of the left side of the back of head, tenderness, that is moderate, of the left side of the back of head. 20:50 ENT: TM's: hemotympanum, is not appreciated. Vital Signs: 20:01 BP 158 / 83; Pulse 65; Resp 16; Temp 97.7(TE); Pulse Ox 100% on R/A; Weight 67.13 kg; jb4 Height 5 ft. 9 in. (175.26 cm); Pain 8/10; 21:00 BP 146 / 75; Pulse 60; Resp 17; Pulse Ox 98% ; rr5 22:00 BP 142 / 80; Pulse 62; Resp 15; Pulse Ox 98% ; rr5 23:00 BP 165 / 89; Pulse 69; Resp 19; Pulse Ox 98% ; rr5 23:40 BP 155 / 80; Pulse 69; Resp 16; Pulse Ox 98% ; rr5 20:01 Body Mass Index 21.86 (67.13 kg, 175.26 cm) jb4 Geovanni Coma Score: 20:01 Eye Response: spontaneous(4). Verbal Response: oriented(5). Motor Response: obeys jb4 commands(6). Total: 15. 21:00 Eye Response: spontaneous(4). Verbal Response: oriented(5). Motor Response: obeys rr5 commands(6). Total: 15. 22:00 Eye Response: spontaneous(4). Verbal Response: oriented(5). Motor Response: obeys rr5 commands(6). Total: 15. 23:00 Eye Response: spontaneous(4). Verbal Response: oriented(5). Motor Response: obeys rr5 commands(6). Total: 15. 23:40 Eye Response: spontaneous(4). Verbal Response: oriented(5). Motor Response: obeys rr5 commands(6). Total: 15. Trauma Score (Adult): 20:01 Eye Response: spontaneous(1); Verbal Response: oriented(1); Motor Response: obeys jb4 commands(2); Systolic BP: > 89 mm Hg(4); Respiratory Rate: 10 to 29 per min(4); Geovanni Score: 15; Trauma Score: 12 21:00 Eye Response: spontaneous(1); Verbal Response: oriented(1); Motor Response: obeys rr5 commands(2); Systolic BP: > 89 mm Hg(4); Respiratory Rate: 10 to 29 per min(4); Geovanni Score: 15; Trauma Score: 12 22:00 Eye Response: spontaneous(1); Verbal Response: oriented(1); Motor Response: obeys rr5 commands(2); Systolic BP: > 89 mm Hg(4); Respiratory Rate: 10 to 29 per min(4); [place] Score: 15; Trauma Score: 12 23:00 Eye Response: spontaneous(1); Verbal Response: oriented(1); Motor Response: obeys rr5 commands(2); Systolic BP: > 89 mm Hg(4); Respiratory Rate: 10 to 29 per min(4); [place] Score: 15; Trauma Score: 12 23:40 Eye Response: spontaneous(1); Verbal Response: oriented(1); Motor Response: obeys rr5 commands(2); Systolic BP: > 89 mm Hg(4); Respiratory Rate: 10 to 29 per min(4); [place] Score: 15; Trauma Score: 12 MDM: 23:21 Differential diagnosis: abrasion, closed head injury, contusion, fracture, laceration, 7 Acute DC, Chest pain. Data reviewed: vital signs, nurses notes, EMS record, old medical records, lab test result(s), cardiac enzymes, CBC, electrolytes, EKG, radiologic studies, CT scan, plain films. Data interpreted: Pulse oximetry: on room air is 100 %. Interpretation: normal. Counseling: I had a detailed discussion with the patient and/or guardian regarding: the historical points, exam findings, and any diagnostic results supporting the discharge/admit diagnosis, the presence of at least one elevated blood pressure reading (>120/80) during this emergency department visit, lab results, radiology results, the need for further work-up and treatment in the hospital. Response to treatment: the patient's symptoms have markedly improved after treatment. Refusal of service: The patient/guardian displays adequate decision making capability and despite a detailed discussion of alternatives, benefits, risks, and consequences refuses: Admission to the hospital for further work-up and treatment. 23:23 Patient medically screened. [facility] 12/07 20:41 Order name: Basic Metabolic Panel [facility] 12/07 20:41 Order name: CBC with Diff [facility] 12/07 20:41 Order name: LFT's [facility] 12/07 20:41 Order name: Magnesium [facility] 12/07 20:41 Order name: NT PRO-BNP; Complete Time: 21:54 [facility] 12/07 20:41 Order name: PT-INR; Complete Time: 21:54 [facility] 12/07 20:41 Order name: Troponin (emerg Dept Use Only); Complete Time: 21:54 [facility] 12/07 20:41 Order name: XRAY Chest (1 view) [facility] 12/07 20:41 Order name: CT Head Brain wo Cont [facility] 12/07 20:41 Order name: Basic Metabolic Panel; Complete Time: 21:54 [facility] 12/07 20:41 Order name: CBC with Automated Diff; Complete Time: 21:54 [facility]MO 12/07 20:41 Order name: Liver (Hepatic) Function; Complete Time: 21:54 [facility]MO 12/07 20:41 Order name: Magnesium; Complete Time: 21:54 [facility] 12/07 20:41 Order name: EKG; Complete Time: 20:41 [facility] 12/07 20:41 Order name: Cardiac monitoring; Complete Time: 21:25 [facility] 12/07 20:41 Order name: EKG - Nurse/Tech; Complete Time: 21:25 [facility] 12/07 20:41 Order name: IV Saline Lock; Complete Time: 21:25 [facility] 12/07 20:41 Order name: Labs collected and sent; Complete Time: 21:25 [facility] 12/07 20:41 Order name: O2 Per Protocol; Complete Time: 21:25 [facility] 12/07 20:41 Order name: O2 Sat Monitoring; Complete Time: 21:26 [facility] 12/07 21:23 Order name: Bladder Scanner; Complete Time: 21:23 rr5 Administered Medications: 20:42 CANCELLED (wrong order): Tylenol 325 mg PO once [facility] 21:17 Drug: Tylenol 1000 mg Route: PO; mg2 22:20 Follow up: Response: No adverse reaction rr5 Disposition: 12/07/20 23:23 Patient has left against medical advice. Impression: Chest pain, unspecified, Contusion of unspecified part of head. - Patients states they are going to Home. - Condition is Stable. - Discharge Instructions: Nonspecific Chest Pain, [id number], Facial or Scalp Contusion, [id number]. Follow up: Private Physician; When: 1 - 2 days; Reason: Worsening of condition, Recheck today's complaints, Continuance of care, Re-evaluation by your physician. Follow up: Mingo David MD; When: 1 - 2 days; Reason: Worsening of condition, Recheck today's complaints. - Problem is new. - Symptoms have improved. Signatures: Dispatcher [employer] EDMS Regan Nava RN RN jb4 Ian Anaya RN RN [facility] [place] Jaguar Painter RN RN rr5 Jhonatan Mcdonnell MD MD 7 Corrections: (The following items were deleted from the chart) 20:42 20:41 Tylenol 325 mg PO once ordered. 7 7 21:24 21:23 Workman ordered. rr5 rr5 23:47 23:23 12/07/2020 23:23 Patients has left against medical advice. Impression: Chest rr5 pain, unspecified; Contusion of unspecified part of head. Patient states they are going to Home. Condition is Stable. Follow up: Private Physician; When: 1 - 2 days; Reason: Worsening of condition, Recheck today's complaints, Continuance of care, Re-evaluation by your physician. Follow up: Mingo David; When: 1 - 2 days; Reason: Worsening of condition, Recheck today's complaints. Problem is new. Symptoms have improved. 7
--- NOTE | 2020-12-07 23:23 | ER ---
Nurse's Notes [facility] Name: Scarlett Garrett Age: 85 yrs Sex: Female : 1935 Arrival Date: 12/07/2020 Time: 19:48 Bed 4 Private MD: Diagnosis: Chest pain, unspecified;Contusion of unspecified part of head Presentation: 12/07 20:01 Chief complaint: Patient states: My leg gave out when I was standing up and I fell and jb4 hit my head on a window seal. I did not pass out. I do take a blood thinner. It happened about 183. Care prior to arrival: None. Mechanism of Injury: Fall from standing position. Trauma event details: Injury occurred in the [facility]. 20:01 Acuity: VANESA 2 jb4 20:01 Method Of Arrival: Ambulatory jb4 20:07 Coronavirus screen: Client denies travel out of the [place] in the last 14 days. At this jb4 time, the client does not indicate any symptoms associated with coronavirus-19. Ebola Screen: Patient negative for fever greater than or equal to 101.5 degrees Fahrenheit, and additional compatible Ebola Virus Disease symptoms. Initial Sepsis Screen: Does the patient meet any 2 criteria? No. Patient's initial sepsis screen is negative. Does the patient have a suspected source of infection? No. Patient's initial sepsis screen is negative. Risk Assessment: Do you want to hurt yourself or someone else? Patient reports no desire to harm self or others. 21:30 Onset of symptoms was December 07, 2020. 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 - Social history:: Smoking status: unknown. Screenin:01 Abuse screen: Denies threats or abuse. Nutritional screening: No deficits noted. jb4 Tuberculosis screening: No symptoms or risk factors identified. Fall risk. 21:30 Fall Risk Fall in past 12 months (25 points). IV access (20 points). Ambulatory Aid- rr5 Crutches/Cane/Walker (15 pts). Gait- Normal/Bed Rest/Wheelchair (0 pts) Mental Status- Oriented to own ability (0 pts). Total Bolanos Fall Scale indicates High Risk Score (45 or more points). Fall prevention measures have been instituted. Side Rails Up X 2 Frequent Obs/Assessments Occuring As available patient and family educated on Fall Prevention Program and Strategies. Primary Survey: 20:01 NO uncontrolled hemorrhage observed. A: The patient is alert. Airway: patent, No jb4 supplemental oxygen in use on arrival. Oral cavity: clear, gag reflex present. Breathing/Chest: Respiratory pattern: regular, Respiratory effort: spontaneous, unlabored, Chest inspection: symmetrical rise and fall of the chest. Circulation: Skin color: pink, Skin temperature: warm, dry. Disability Alert. Exposure/Environment: All clothing and personal items were removed. Forensic evidence collection is not deemed to be indicated at this time. Items placed in patient belonging bag. 21:37 Reassessment Airway Airway Patent Breathing/Chest Respiratory pattern Regular rr5 Respiratory effort Spontaneous Unlabored Breath sounds Clear Chest inspection Symmetrical Circulation Heart tones Present Pulses Palpable Disability Alert. Secondary Survey: 21:10 HEENT: Head Other swelling back of the head Face No injury/deformity Eyes: No injury or rr5 deformity noted. to bilateral eyes. Ears: clear bilaterally. Nose: clear to bilateral nares. Throat: is clear with gag reflex present. 21:10 Gastrointestinal: Abdomen is soft, flat. : No signs and/or symptoms were reported rr5 regarding the genitourinary system. Musculoskeletal: Capillary refill < 3 seconds. Assessment: 21:26 General: Appears in no apparent distress. comfortable, Behavior is calm, cooperative. mg2 Pain: Complains of pain in left side of the back of head. Neuro: Level of Consciousness is awake, alert, obeys commands, Oriented to person, place, time, situation. Neuro: Reports headache. Cardiovascular: Capillary refill < 3 seconds Patient's skin is warm and dry. Respiratory: Airway is patent Respiratory effort is even, unlabored, Respiratory pattern is regular, symmetrical. GI: No signs and/or symptoms were reported involving the gastrointestinal system. : No signs and/or symptoms were reported regarding the genitourinary system. EENT: No signs and/or symptoms were reported regarding the EENT system. Derm: Skin is intact, is healthy with good turgor, Skin is pink, warm \T\ dry. normal. Musculoskeletal: Circulation, motion, and sensation intact. Capillary refill < 3 seconds. 22:30 Reassessment: Patient appears in no apparent distress at this time. Patient is alert, rr5 oriented x 3, equal unlabored respirations, skin warm/dry/pink. awaiting for results. 23:00 Reassessment: Patient appears in no apparent distress at this time. Patient is alert, rr5 oriented x 3, equal unlabored respirations, skin warm/dry/pink. hospitalist at bedside. 23:25 Reassessment: Patient appears in no apparent distress at this time. Hospitalist and ED rr5 provider discussed the plan of care. decided patient will go for AMA. 23:42 Reassessment: Patient appears in no apparent distress at this time. Patient is alert, rr5 oriented x 3, equal unlabored respirations, skin warm/dry/pink. discharge instruction given and explained without complaints made. Vital Signs: 20:01 BP 158 / 83; Pulse 65; Resp 16; Temp 97.7(TE); Pulse Ox 100% on R/A; Weight 67.13 kg; jb4 Height 5 ft. 9 in. (175.26 cm); Pain 8/10; 21:00 BP 146 / 75; Pulse 60; Resp 17; Pulse Ox 98% ; rr5 22:00 BP 142 / 80; Pulse 62; Resp 15; Pulse Ox 98% ; rr5 23:00 BP 165 / 89; Pulse 69; Resp 19; Pulse Ox 98% ; rr5 23:40 BP 155 / 80; Pulse 69; Resp 16; Pulse Ox 98% ; rr5 20:01 Body Mass Index 21.86 (67.13 kg, 175.26 cm) jb4 Geovanni Coma Score: 20:01 Eye Response: spontaneous(4). Verbal Response: oriented(5). Motor Response: obeys jb4 commands(6). Total: 15. 21:00 Eye Response: spontaneous(4). Verbal Response: oriented(5). Motor Response: obeys rr5 commands(6). Total: 15. :00 Eye Response: spontaneous(4). Verbal Response: oriented(5). Motor Response: obeys rr5 commands(6). Total: 15. 23:00 Eye Response: spontaneous(4). Verbal Response: oriented(5). Motor Response: obeys rr5 commands(6). Total: 15. 23:40 Eye Response: spontaneous(4). Verbal Response: oriented(5). Motor Response: obeys rr5 commands(6). Total: 15. Trauma Score (Adult): 20:01 Eye Response: spontaneous(1); Verbal Response: oriented(1); Motor Response: obeys jb4 commands(2); Systolic BP: > 89 mm Hg(4); Respiratory Rate: 10 to 29 per min(4); [place] Score: 15; Trauma Score: 12 21:00 Eye Response: spontaneous(1); Verbal Response: oriented(1); Motor Response: obeys rr5 commands(2); Systolic BP: > 89 mm Hg(4); Respiratory Rate: 10 to 29 per min(4); [place] Score: 15; Trauma Score: 12 22:00 Eye Response: spontaneous(1); Verbal Response: oriented(1); Motor Response: obeys rr5 commands(2); Systolic BP: > 89 mm Hg(4); Respiratory Rate: 10 to 29 per min(4); [place] Score: 15; Trauma Score: 12 23:00 Eye Response: spontaneous(1); Verbal Response: oriented(1); Motor Response: obeys rr5 commands(2); Systolic BP: > 89 mm Hg(4); Respiratory Rate: 10 to 29 per min(4); [place] Score: 15; Trauma Score: 12 23:40 Eye Response: spontaneous(1); Verbal Response: oriented(1); Motor Response: obeys rr5 commands(2); Systolic BP: > 89 mm Hg(4); Respiratory Rate: 10 to 29 per min(4); [place] Score: 15; Trauma Score: 12 ED Course: 19:48 Patient arrived in ED. am4 20:01 Patient has correct armband on for positive identification. Bed in low position. Call jb4 light in reach. Side rails up X 1. 20:01 Patient maintains SpO2 saturation greater than 95% on room air. Thermoregulation: warm jb4 blanket given to patient. 20:03 Triage completed. jb4 20:25 Jaguar Painter RN is Primary Nurse. rr5 20:29 Jhoantan Mcdonnell MD is Attending Physician. mh7 20:55 CT Head Brain wo Cont In Process Unspecified. EDMS 21:15 XRAY Chest (1 view) In Process Unspecified. EDMS 21:15 Inserted saline lock: 20 gauge in right antecubital area, using aseptic technique. mg2 Blood collected. 21:27 Arm band placed on. mg2 21:27 No provider procedures requiring assistance completed. mg2 23:22 Mingo David MD is Referral Physician. mh7 23:46 IV discontinued, intact, bleeding controlled, No redness/swelling at site. Pressure rr5 dressing applied. Administered Medications: 20:42 CANCELLED (wrong order): Tylenol 325 mg PO once mh7 21:17 Drug: Tylenol 1000 mg Route: PO; mg2 22:20 Follow up: Response: No adverse reaction rr5 Intake: 23:00 PO: 200ml (Water); Total: 200ml. rr5 Outcome: 23:30 Patient's length of stay was not longer than 2 hours. rr5 23:46 Discharged to home via wheelchair, with family. rr5 23:46 Condition: stable 23:46 Discharge instructions given to patient, Instructed on discharge instructions, follow up and referral plans. Demonstrated understanding of instructions, follow-up care. 23:46 AMA AMA form signed rr5 23:47 Patient left the ED. rr5 Signatures: Dispatcher [employer] EDMS Regan Nava RN RN jb4 Ian Anaya RN RN mg2 Jaguar Painter, LEE ANN RN rr5 Jhonatan Mcdonnell MD MD 7 Loraine Martinez am4
[2020-12-07 23:55] VITALS: TEMP 97.7
[2020-12-07 23:56] VITALS: O2SAT 98
[2020-12-08 00:20] VITALS: BP 155/80
--- NOTE | 2020-12-08 08:26 | RAD REPORT ---
EXAM DESCRIPTION: RAD - Chest Single View - 12/07/2020 9:15 pm CLINICAL HISTORY: CHEST PAIN, fall with chest trauma COMPARISON: Portable September 26, 2020 TECHNIQUE: AP portable chest image was obtained 12/07/2020 9:15 pm . FINDINGS: No pulmonary contusion or acute lung parenchymal process. Interstitial pattern matches com parison. Heart and vasculature are normal. No measurable pleural effusion and no pneumothorax. Bony d egenerative changes are present in the spine. No gross rib deformity seen. Dedicated rib films could be performed if there are ongoing concerns. No acute aortic findings suspected. IMPRESSION: No acute cardiopulmonary process. No gross rib deformity or other acute bone process identifiable. Ongoing concerns for rib fracture ca n be addressed with dedicated rib films.
--- NOTE | 2020-12-08 18:06 | RAD REPORT ---
EXAM DESCRIPTION: CT - Head Brain Wo Cont - 12/08/2020 6:48 am RadLex: CT HEAD WITHOUT IV CONTRAST CLINICAL HISTORY: TRAUMA. TECHNIQUE: Axial, coronal, and sagittal images through the brain were performed in the absence of in travenous contrast. This exam was performed according to our departmental dose-optimization program w hich includes use of Automated Exposure Control, adjustment of the mA and/or kV according to patient size and/or use of iterative reconstruction technique. COMPARISON: CT of the head from January 24, 2019. FINDINGS: There is diffuse age-appropriate atrophy seen throughout the brain parenchyma. Trace periv entricular white matter changes are seen to be present and there is mild ex vacuo dilatation of the v entricular system. There is no intra-axial or extra-axial bleed. There is no mass or mass effect. Tiny mucosal retention cyst in the superior left maxillary sinus. The visualized paranasal sinuses an d mastoid air cells are otherwise clear. No fracture is identified. IMPRESSION: No acute intracranial abnormality identified. Mild chronic age related changes. Electronically signed by: Jacque Mcgovern MD 12/07/2020 9:13 PM SKI GUIDE Due to temporary technical issues with the PACS/Fluency reporting system, reports are being signed by the in house radiologists without review as a courtesy to insure prompt reporting. The interpreting radiologist is fully responsible for the content of the report.
== END 2020-12-07 23:47 | disposition left against medical advice (07) ==
LOC: ER 19:45
DX: S00.93XA Contusion of unspecified part of head, initial encounter (principal); R07.9 Chest pain, unspecified; W18.30XA Fall on same level, unspecified, initial encounter; Y93.9 Activity, unspecified; Y92.019 Unspecified place in single-family (private) house as the place of occurrence of the external cause; Z88.1 Allergy status to other antibiotic agents
CPT/HCPCS: 36415; 70450; 71045; 80048; 80076; 83735; 83880; 84484; 85025; 85610; 99284; G0390

== ENCOUNTER 2020-12-15 21:47 | Inpatient (IN) | payer OTHER ==
--- OUTSIDE RECORDS SUMMARY | 2020-12-15 21:51 | XMS REPORT | Continuity of Care Document ---
:1935 Author Organization [facility] t Address [address] [place] [address] Care Team Providers Name Role Phone Asked, Given Primary Care Physician Unavailable Paty CHAMBERS, Gene Attending Clinician Torsten Solano MD Attending Clinician Payers Payer Name Policy Type Policy Effective Date Expiration Date Sour ce Number UHC MEDICAREUHC [id number] 2019 [place] [employer] MEDICARE 00:00:00 Jew [id number]/10/20 020-PresentPPO Problems Condition Condition Condition Status Onset [...] 00 s to drug levoflox DA Active MD [facility] 03[facility]07 [place] 00:00[facility] Social History Social Habit Start Date Stop Date Quantity Comments Source Sex Assigned At [facility] ethodist Alcohol intake 2017-01-16 2017-01-16 Current drinker Lexat on Jew 00:00:00 00:00:00 of alcohol (finding) Smoking Status Start Date Stop Date Source Never smoker [place] Methodis t Medications Ordered Filled Start Stop Current Ordering Indication Dosage Frequency Signature Comments Components Source Medication Medication Date Date Medication? Clinician (SIG) Name Name celecoxib 2020-0 Yes 200mg Q.5D Take 200 Tamiko ston (CeleBREX) 8-05 mg by Methodi 200 MG 14:41: mouth 2 st capsule 00 (two) times a day. escitalopra 2020-0 Yes 10mg QD Take 10 mg [facility] (LEXAPRO) 8-05 by mouth Meth perez 10 [...] 100mg QD Take 100 Tamiko ston (DESYREL) 6- mg by Methodi 100 MG 12:11: mouth st tablet 15 nightly. lidocaine Yes 1{patch Q24H Place 1 [place] (LIDODERM) 6 } patch on Metho di 5 % 12:11: the skin st 15 daily. Remove & Discard patch within 12 hours or as directed by estradiol Yes 2g QD Insert 2 g [place] (ESTRACE) 6- into the Method i 0.01 % (0.1 [...] Date Status Commen ts Source Name Name StayTuned COVID-19 MRNA 2020-11-24 Completed [place] VACCINATION 00:00:00 Jew StayTuned COVID-19 MRNA 2020-11-03 Completed [place] VACCINATION 00:00:00 Jew Vital Signs Vital Name Observation Time Observation Value Comments Source Systolic blood 2020-05-23 14:38:00 103 mm[Hg] Lexato n Jew pressure Diastolic blood 2020-05-23 14:38:00 56 mm[Hg] Jermaine on Jew pressure Heart rate 2020-05-23 14:38:00 49 /min Madhu Mariscal Respiratory rate 2020-05-23 14:38:00 20 /min [place] Jew Body height 2020-05-23 14:38:00 175.3 cm Madhu Mariscal Body weight 2020-05-23 14:38:00 72.576 kg Madhu Mariscal BMI 2020-05-23 14:38:00 23.63 kg/m2 Madhu Mariscal Oxygen saturation in 2020-05-23 14:38:00 97 /min Madhu Mariscal Arterial blood by Pulse oximetry Procedures Procedure Date / Time Performed Performing Clinician [facility] CARDIAC MRI VALVE 2020-05-30 10:40:07 Dane Solano Tn thodist ASSESSMENT W CONTRAST POC CREATININE 2020-05-23 14:40:00 Dane Solnao Meth odist ESTIMATED GFR 2020-05-23 14:40:00 Dane Solano Meth odist HEMATOCRIT 2020-05-23 14:30:00 Dane Solano Meth odist Plan of Care Planned Activity Planned Date Details Comments Source Future Scheduled 2020-05-19 INFLUENZA VACCINE Kindra n Jew Test 00:00:00 [code = INFLUENZA VACCINE] Future Scheduled 2001 65+ PNEUMOCOCCAL Madhu Jew Test 00:00:00 VACCINE (1 of 1 - PPSV23) [code = 65+ PNEUMOCOCCAL VACCINE (1 of 1 - PPSV23)] Future Scheduled 1986 SHINGLES VACCINES (#1) [place] Jew Test 00:00:00 [code = SHINGLES VACCINES (#1)] Encounters Start End Encounter Admission Attending Care Care Encounter Source Date/Time Date/Time Type Type Clinicians Facility Department ID 2020-11-24 2020-11-24 Outpatient [facility] [id number] [place] 00:00:00 00:00:[address] 2020-11-13 2020-11-13 Telephone SERGIO Newman [id number] 00:00:00 00:00:00 Marco Gao [id number] [place] [id number] [id number] [facility] 092 [facility] 2020-11-03 2020-11-03 Outpatient [facility] [id number] [place] 00:00:00 00:00:[address] 2020-11-02 2020-11-02 Office Paty [facility] [id number] 14:12:48 16:16:50 Visit Marco Gao [id number] [place] 4.2.7.2.686 [facility] [id number] [facility]2 [facility] 2020-05-23 2020-05-23 [facility] [id number] [place] 00:00:00 00:00:00 DANE [address] 2020-05-23 2020-05-23 Outpatient [facility], [facility] [id number] [place] 00:00:00 00:00:00 DANE [address] Results Test Description Test Time Test Comments Results Result Sourc e Comments Cardiac mri 2020-05-19 Interface, Radiology Tamiko ston valve assessment 5 Results In - Method ist w contrast 11:55:00 06/02/2020 11:55 AM CDT [place] Jew CMR Report Name: ANDI SMILEY : 1935 [...] | Normal/Hyper | None | | || [place] | Normal/Hyper | None | | |+ [...] 0 %SCAN INFO =GENERAL ---- SCANNER ---- MOVIE STAR: [employer] MODEL: [employer] PULSE SEQUENCES: SSFP cine, 2D LGE single-shot, Pre-contrast T1 mapping, Post-contrast T1 mapping, Phase contrast imaging, HASTE morphology, Bright-blood SSFP morphology, 3D contrast enhanced MRA CONTRAST AGENT ----- TYPE: [employer] LOT NUMBER: [id number] EXPIRATION DATE: 2023-06-18 00:00:00 GD CONCENTRATION: 0.5 M VOLUME ADMINISTERED: 22 ml DOSAGE: 0.15 mmol/kg SERUM CREATININE: 1.1 mg/dL GFR: 50.42 ml/min/1.73m2 CREATININE DATE: 2020-05-23 00:00:00 SEDATION ---- SEDATION USED?: No SETUP ---- SCAN TYPE: Both PATIENT TYPE: Outpatient LOCATION: [facility] INCOMPLETE SCAN: No REASON(S) FOR SCAN: Eval [facility] valve(s) REFERRING PHYSICIAN: Dane Solano MD ATTENDING PHYSICIAN: Dane Solano MD TECHNICIANS: 1) Chrissie Murrell =Patient Account [id number] Codes 27891, 67028, [id number] Codes I34.0, I36.1, R93.1ADDITIONAL NOTES =AO 55, [...] 37-47 L Lab Interpretation (test code = 53018-8) [facility] [id number] 14:44:08 Test Item Value Reference Range Interpretation Comments POC creatinine (test 1.1 mg/dl 0.5-0.9 H Operato r Name: Ng code = 09070-8) PaulineDevic e ID: [id number] Lab Interpretation Abnormal (test code = 55876-4) [place] MethodistEstimated [id number] 14:44:08 Test Item Value Reference Range Interpretation Comments Estimated GFR (test 46 mL/min/1.73 m2 A Tee cramer Units code = 58280-8) Interpretati onG1 >=90 Kateryna l or highG2 60-89 Mildly decrease dG3a 45-59 Mil dly to moderately decr ktlonH9t 30-44 Moderately to s everely decreasedG4 15-29 Severe ly decreasedG5 <15 Kidney joel lureThe eGFR was calcul ated using the [facility] Kidney Disease Epidemiology Collaboration ( CKD-EPI) equation. Interpretation is based on recommendati ons of the [facility]-Kidn ey Disease Outcome s Quality Initiat [place] (NK-KDOQI) pub pending sale to [facility] in 2013. Lab Interpretation Abnormal (test code = 97994-4) [facility]- MRI L-SPINE W/O [id number] 13:16:00 Patient Name: ANDI SMILEY Unit No: [id number] EXAMS: CPT CODE: [id number] MRI L-SPINE W/O CONT 90539 TECHNIQUE: Multiplanar, multisequence MRI examination performed of [...] Reported and signed by: Bartolo Brumfield M.D. [facility] NAME: ANDI SMILEY [address] [place] [address] PHYS: Lobo Villalba MD : 1935 AGE: 84 SEX: F [place] [address] LOC: Y.MRI PHONE #: [phone] EXAM DATE: 12/02/2019 STATUS: DEP CLI FAX #: [phone] RAD #: D/C DT PAGE 1 Signed Report (CONTINUED) Patient Name: ANDI SMILEY Unit No: [id number] EXAMS: CPT CODE: [id number] MRI L-SPINE W/O CONT 79694 <Continued> CC: Richi Sanchez M.D. Technologist: AMRIK FORD, MRI Transcribed D/ (1316) SilvanoRika [facility] NAME: ANDI SMILEY [address] [place] [address] PHYS: Lobo Villalba MD : 1935 AGE: 84 SEX: F [place] [address] LOC: Y.MRI PHONE #: [phone] EXAM DATE: 12/02/2019 STATUS: DEP CLI FAX #: [phone] RAD #: D/C DT PAGE 2 Signed Report Patient Name: ANDI SMILEY Unit No: [id number] EXAMS: CPT CODE: [id number] MRI L-SPINE W/O CONT 15332 <Continued> Orig Print D/T: S: 12/05/2019 (1320) [facility] NAME: ANDI SMILEY [address] [place] [address] PHYS: Lobo Villalba MD : 1935 AGE: 84 SEX: F [place] [address] LOC: Y.MRI PHONE #: [phone] EXAM DATE: 12/02/2019 STATUS: DENNISE ESPINOZA FAX #: [phone] RAD #: D/C DT PAGE 3 Signed Report
[2020-12-15 22:22] LABS: Absolute Lymphocytes (CBC) 1.6 K/uL (0.7-4.9); Basophils % 1.2 % (0-1.3); Hematocrit 31.5 % (36.0-45.0); Lymphocytes % 20.5 % (15.3-44.8); MPV 7.6 fL (7.6-11.3); RBC Red Blood Cell Count 3.26 M/uL (3.86-4.86)
[2020-12-15] MEDS ORDERED: NA CHLORIDE 0.9% 250 ML ONE (22:24)
[2020-12-15 22:25] LABS: Protime INR 0.96
[2020-12-15 23:08] LABS: ALT/SGPT 23 U/L (12-78); AST/SGOT 22 U/L (15-37); Albumin 3.2 g/dL (3.4-5.0); Alkaline Phosphatase 58 U/L (45-117); BUN Blood Urea Nitrogen 22 mg/dL (7-18); Bicarbonate 27 mmol/L (21-32); Bilirubin Direct 0.1 mg/dL (0-0.2); Bilirubin Total 0.2 mg/dL (0.2-1.0); Glucose Level 138 mg/dL (74-106); Magnesium 2.1 mg/dL (1.8-2.4); NT PRO-BNP 780 pg/mL (<450); Potassium 4.1 mmol/L (3.5-5.1); Protein, Total 5.9 g/dL (6.4-8.2); Sodium Level 135 mmol/L (136-145); Troponin (Emerg Dept Use Only) < 0.02 ng/mL (0.0-0.045)
--- NOTE | 2020-12-16 00:12 | EDPHYS ---
Physician Documentation [facility] Name: Scarlett Garrett Age: 85 yrs Sex: Female : 1935 Arrival Date: 12/15/2020 Time: 21:51 Bed 4 Private MD: ED Physician Jhonatan Mcdonnell HPI: 12/15 22:00 This 85 yrs old Female presents to ER via EMS with complaints of LOW BLOOD cp PRESSURE. 22:00 patient reports vision going black but does not believe she blacked out. cp 22:00 Onset: The symptoms/episode began/occurred today. Duration: This was a single episode, cp that lasted an unknown period of time. Associated injury: The patient did not suffer any apparent associated injury. Associated signs and symptoms: Pertinent positives: dizziness, low blood pressure, Pertinent negatives: abdominal pain, chest pain, weakness. Current symptoms: Currently, the patient is not experiencing any symptoms, the patient feels back to baseline. Patient reports she was sitting on couch when she became dizzy/lightheaded, vision went black. Patient reports she does not believe she passed out, but when she stood up, she became lightheaded and was able to sit down on ground. EMS reports systolic pressure in 80's upon arrival. Historical: - Allergies: 21:59 Cipro; bb 21:59 Levaquin; bb - Home Meds: 21:59 areds daily [Active]; Benicar 20 mg Oral tab 1 tab once daily [Active]; biotin 5 mg bb Oral tab daily [Active]; Celebrex 200 mg Oral cap 1 cap once daily [Active]; Eliquis Oral [Active]; Estraderm TD [Active]; Fish Oil Oral daily [Active]; Flonase 50 mcg/actuation Nasal spsn 1 spray once daily [Active]; Lasix Oral [Active]; levothyroxine 50 mcg tab 1 tab once daily [Active]; Lexapro 10 mg Oral tab 1 tab once daily [Active]; magnesium oxide 400 mg Oral tab daily [Active]; metoprolol tartrate 37.5 mg Oral tab 2 tabs once daily [Active]; nicardipine 20 mg Oral cap twice a day [Active]; Os-James 500 + D3 500 mg(1,250mg) -200 unit Oral tab [Active]; Singulair Oral [Active]; trazodone 100 mg Oral tab at bedtime [Active]; vitamin A 10,000 unit Oral cap 1 cap once daily [Active]; Vitamin C Oral daily [Active]; Vitamin D Oral 5000 unit daily [Active]; Zyrtec 10 mg Oral tab 1 tab once daily [Active]; - PMHx: 21:59 Arthritis; Atrial Fib; Depression; Hypertension; Hypothyroidism; mitral valve; severe bb tricuspid valve regurgitation; - Immunization history:: Adult Immunizations up to date. - Social history:: Smoking status: unknown. ROS: 22:05 Eyes: Negative for injury, pain, redness, and discharge. cp 22:05 Constitutional: Negative for body aches, chills, fever, poor PO intake. 22:05 ENT: Negative for ear pain, sore throat, difficulty swallowing, difficulty handling secretions. 22:05 Cardiovascular: Negative for chest pain, edema, palpitations. 22:05 Respiratory: Negative for cough, shortness of breath, wheezing. 22:05 Abdomen/GI: Negative for abdominal pain, nausea, vomiting, and diarrhea. 22:05 Neuro: Positive for dizziness, syncope, Negative for altered mental status, headache, numbness, seizure activity, weakness. 22:05 All other systems are negative. cp Exam: 22:00 ECG was reviewed by the Attending Physician. cp 22:08 Constitutional: The patient appears in no acute distress, alert, awake, cp non-diaphoretic, non-toxic, well developed, well nourished. 22:08 Head/Face: Normocephalic, atraumatic. cp 22:08 Eyes: Pupils: equal, round, and reactive to light and accomodation, Extraocular movements: intact throughout, Sclera: no appreciated abnormality, Lids and lashes: appear normal, bilaterally. 22:08 ENT: External ear(s): are unremarkable, Nose: is normal, Mouth: Lips: moist, Oral mucosa: moist, Posterior pharynx: Airway: no evidence of obstruction, patent. 22:08 Neck: ROM/movement: is normal, is supple, without pain, no range of motions limitations, no nuchal rigidity. 22:08 Chest/axilla: Inspection: normal, Palpation: is normal, no crepitus, no tenderness. 22:08 Cardiovascular: Rate: bradycardic, Rhythm: regular, Edema: is not appreciated, JVD: is not appreciated. 22:08 Respiratory: the patient does not display signs of respiratory distress, Respirations: normal, no use of accessory muscles, no retractions, labored breathing, is not present, Breath sounds: are clear throughout, no decreased breath sounds, no stridor, no wheezing. 22:08 Abdomen/GI: Inspection: abdomen appears normal, Palpation: abdomen is soft and non-tender, in all quadrants, voluntary guarding, is not appreciated, involuntary guarding, is not appreciated. 22:08 Back: pain, is absent, ROM is normal. 22:08 Neuro: Orientation: to person, place \T\ time. Mentation: is normal, Cerebellar function: is grossly normal, Motor: moves all fours, strength is normal, Sensation: is normal. Vital Signs: 21:52 BP 92 / 52; Pulse 59; Resp 16 S; Temp 98.0(O); Pulse Ox 100% on R/A; Weight 67.13 kg bb (R); Height 5 ft. 9 in. (175.26 cm) (R); 22:51 BP 109 / 76; Pulse 57; Resp 18; Pulse Ox 100% on R/A; mg2 23:55 BP 110 / 52; Pulse 61; Resp 18; Pulse Ox 100% on R/A; mg2 12/16 00:30 BP 93 / 75; Pulse 58; Resp 18; Temp 98; Pulse Ox 100% on R/A; mg2 12/15 21:52 Body Mass Index 21.86 (67.13 kg, 175.26 cm) bb MDM: 12/15 21:58 Patient medically screened. cp 22:20 Differential Diagnosis: cardiac arrhythmia, GI bleed, sepsis, vasovagal episode. cp 12/16 00:09 Data reviewed: vital signs, nurses notes, lab test result(s), EKG, radiologic studies, cp CT scan, plain films. Physician consultation: Marcia Bernal MD was called at 00:10, was contacted at 00:10, regarding admission, to the telemetry unit. patient's condition, and will see patient in ED, shortly. 12/15 21:57 Order name: Basic Metabolic Panel cp 12/15 21:57 Order name: CBC with Diff cp 12/15 21:57 Order name: LFT's cp 12/15 21:57 Order name: Magnesium cp 12/15 21:57 Order name: NT PRO-BNP 12/15 21:57 Order name: PT-INR cp 12/15 21:57 Order name: Troponin (emerg Dept Use Only) cp 12/15 21:57 Order name: Urine Microscopic Only cp 12/15 21:57 Order name: Procalcitonin; Complete Time: 23:51 12/15 21:57 Order name: Lactate; Complete Time: 23:51 12/15 21:57 Order name: Blood Culture Adult (2) 12/15 21:58 Order name: Basic Metabolic Panel; Complete Time: 23:51 EDMS 12/15 23:51 Interpretation: Normal except: NA 135; GLUC 138; BUN 22; GFR 44. 12/15 21:58 Order name: CBC with Automated Diff; Complete Time: 23:51 EDMS 12/15 23:52 Interpretation: RBC 3.26; HGB 10.5; HCT 31.5; EOSINOPHIL % 10.4; EOSA 0.8. 12/15 21:58 Order name: Liver (Hepatic) Function; Complete Time: 23:51 EDMS 12/15 21:58 Order name: Magnesium; Complete Time: 23:51 EDMS 12/15 21:58 Order name: NT PRO-BNP; Complete Time: 23:51 EDMS 12/15 21:58 Order name: Protime (+INR); Complete Time: 23:51 EDMS 12/15 21:58 Order name: Troponin (Emerg Dept Use Only); Complete Time: 23:51 EDMS 12/15 23:43 Order name: SARS-COV-2 RT PCR; Complete Time: 23:51 EDPR 12/16 00:08 Order name: Urine Dipstick--Ancillary (enter results) nm 12/16 00:43 Order name: Urine Culture EDPR 12/16 01:27 Order name: Thyroid Stimulating Hormone EDPR 12/16 01:27 Order name: Comprehensive Metabolic Panel EDPR 12/16 01:27 Order name: Comprehensive Metabolic Panel [facility] 12/16 01:27 Order name: Magnesium [facility] 12/16 01:27 Order name: Magnesium [facility] 12/16 01:27 Order name: Magnesium [facility] 12/16 01:27 Order name: Magnesium [facility] 12/15 21:57 Order name: XRAY Chest (1 view) 12/15 21:57 Order name: EKG; Complete Time: 21:59 cp 12/15 21:57 Order name: Cardiac monitoring; Complete Time: 22:04 12/15 21:57 Order name: EKG - Nurse/Tech; Complete Time: 22:04 12/15 21:57 Order name: IV Saline Lock; Complete Time: 22:04 12/15 21:57 Order name: Labs collected and sent; Complete Time: 22:04 12/15 21:57 Order name: O2 Per Protocol; Complete Time: 22:04 12/15 21:57 Order name: O2 Sat Monitoring; Complete Time: 22:04 12/15 21:57 Order name: CT Head C Spine 12/15 21:57 Order name: Urine Dipstick-Ancillary (obtain specimen); Complete Time: 00:08 12/16 01:27 Order name: CONS Pharmacy Consult [facility] 12/16 01:27 Order name: Troponin I [facility] 12/16 01:27 Order name: Troponin I [facility] 12/16 01:27 Order name: Troponin I [facility] 12/16 01:27 Order name: Heart Healthy [facility] 12/16 01:27 Order name: CBC with Automated Diff [facility] 12/16 01:27 Order name: CBC with Automated Diff [facility] EC/27 22:00 Rate is 58 beats/min. Rhythm is regular. WV interval is prolonged at 206 msec. QRS cp interval is normal. QT interval is normal. Interpreted by me. Reviewed by me. Administered Medications: 22:15 Drug: NS 0.9% 250 ml Route: IV; Rate: bolus; Site: right antecubital; mg2 12/16 00:12 Follow up: Response: No adverse reaction; IV Status: Completed infusion; IV Intake: mg2 250ml Disposition: 05:05 Co-signature as Attending Physician, Jhonatan Mcdonnell MD. [email or web address] Disposition: 12/16/20 00:12 Hospitalization ordered by Marcia Bernal for Observation. Preliminary diagnosis are Syncope and collapse, Hypotension, unspecified. - Bed requested for Telemetry/MedSurg (observation). - Status is Observation. mg2 - Condition is Stable. - Problem is new. - Symptoms have improved. Signatures: Dispatcher [facility] Eboni Galloway RN RN mw Ballard, Brenda, RN RN bb López Eddy PA PA cp Ian Anaya RN RN mg2 Jhonatan Mcdonnell MD MD mh7 Corrections: (The following items were deleted from the chart) 02 22:59 22:00 CORONAVIRUS+MR.LAB.BRZ ordered. EDMS EDMS 23:16 23:05 CORONAVIRUS+MR.LAB.BRZ ordered. EDMS EDMS 23:52 23:51 RBC 3.26; HGB 10.5; HCT 31.5; EOSINOPHIL % 10.4. cp cp 12/16 00:21 00:12 Hospitalization Ordered by Marcia Bernal MD for Observation. Preliminary mw diagnosis is Syncope and collapse; Hypotension, unspecified. Bed requested for Telemetry/MedSurg (observation). Status is Observation. Condition is Stable. Problem is new. Symptoms have improved. cp 01:33 00:21 12/16/2020 00:12 Hospitalization Ordered by Marcia Bernal MD for Observation. mg2 Preliminary diagnosis is Syncope and collapse; Hypotension, unspecified. Bed requested for Telemetry/MedSurg (observation). Status is Observation. Condition is Stable. Problem is new. Symptoms have improved. mw 12/17 00:05 12/16 22:05 Constitutional: Negative for body aches, chills, fever, poor PO intake, cp cp 03/ 00:05 12/16 22:05 Cardiovascular: Negative for chest pain, edema, palpitations, cp cp 03/ 00:05 12/16 22:05 Respiratory: Negative for cough, shortness of breath, wheezing, cp cp 03/ 00:05 12/16 22:05 Abdomen/GI: Negative for abdominal pain, nausea, vomiting, and diarrhea, cp cp 03/ 00:05 12/16 22:05 Eyes: Negative for injury, pain, redness, and discharge, cp cp 12/17 00:05 12/16 22:05 ENT: Negative for ear pain, sore throat, difficulty swallowing, difficulty cp handling secretions, cp / 00:05 12/16 22:05 Neuro: Positive for dizziness, syncope, Negative for altered mental status, cp headache, numbness, seizure activity, weakness, cp 12/17 00:05 12/16 22:05 All other systems are negative, cp cp
--- NOTE | 2020-12-16 00:12 | ER ---
Nurse's Notes [facility] Name: Scarlett Garrett Age: 85 yrs Sex: Female : 1935 Arrival Date: 12/15/2020 Time: 21:51 Bed 4 Private MD: Diagnosis: Syncope and collapse;Hypotension, unspecified Presentation: 12/15 21:52 Chief complaint: EMS states: they were toned out for report of pt with a near syncopal bb episode pt became very dizzy and was hypotensive on their arrival with BP in the 80s/40s. Coronavirus screen: At this time, the client does not indicate any symptoms associated with coronavirus-19. Ebola Screen: No symptoms or risks identified at this time. Initial Sepsis Screen: Does the patient meet any 2 criteria? No. Patient's initial sepsis screen is negative. Does the patient have a suspected source of infection? No. Patient's initial sepsis screen is negative. Risk Assessment: Do you want to hurt yourself or someone else? Patient reports no desire to harm self or others. Onset of symptoms was December 15, 2020. 21:52 Method Of Arrival: EMS: [facility] bb 21:52 Acuity: VANESA 2 bb 21:59 Care prior to arrival: Medication(s) given: Normal saline infusion, 300 mL IV bb initiated. 20 GA, in the left forearm, Glucose check: 112. Historical: - Allergies: 21:59 Cipro; bb 21:59 Levaquin; bb - Home Meds: 21:59 areds daily [Active]; Benicar 20 mg Oral tab 1 tab once daily [Active]; biotin 5 mg bb Oral tab daily [Active]; Celebrex 200 mg Oral cap 1 cap once daily [Active]; Eliquis Oral [Active]; Estraderm TD [Active]; Fish Oil Oral daily [Active]; Flonase 50 mcg/actuation Nasal spsn 1 spray once daily [Active]; Lasix Oral [Active]; levothyroxine 50 mcg tab 1 tab once daily [Active]; Lexapro 10 mg Oral tab 1 tab once daily [Active]; magnesium oxide 400 mg Oral tab daily [Active]; metoprolol tartrate 37.5 mg Oral tab 2 tabs once daily [Active]; nicardipine 20 mg Oral cap twice a day [Active]; Os-James 500 + D3 500 mg(1,250mg) -200 unit Oral tab [Active]; Singulair Oral [Active]; trazodone 100 mg Oral tab at bedtime [Active]; vitamin A 10,000 unit Oral cap 1 cap once daily [Active]; Vitamin C Oral daily [Active]; Vitamin D Oral 5000 unit daily [Active]; Zyrtec 10 mg Oral tab 1 tab once daily [Active]; - PMHx: 21:59 Arthritis; Atrial Fib; Depression; Hypertension; Hypothyroidism; mitral valve; severe bb tricuspid valve regurgitation; - Immunization history:: Adult Immunizations up to date. - Social history:: Smoking status: unknown. Screenin:34 Abuse screen: Denies threats or abuse. Denies injuries from another. Nutritional mg2 screening: No deficits noted. Tuberculosis screening: No symptoms or risk factors identified. Fall Risk IV access (20 points). Assessment: 22:15 General: Appears in no apparent distress. comfortable, Behavior is calm, cooperative. mg2 Pain: Denies pain. Neuro: Level of Consciousness is awake, alert, obeys commands, Oriented to person, place, time, situation. Neuro: Reports dizziness. Cardiovascular: Capillary refill < 3 seconds Patient's skin is warm and dry. Respiratory: Airway is patent Respiratory effort is even, unlabored, Respiratory pattern is regular, symmetrical. GI: No signs and/or symptoms were reported involving the gastrointestinal system. : No signs and/or symptoms were reported regarding the genitourinary system. EENT: No signs and/or symptoms were reported regarding the EENT system. Derm: Skin is intact, is healthy with good turgor, Skin is pink, warm \T\ dry. normal. Musculoskeletal: Circulation, motion, and sensation intact. Capillary refill < 3 seconds. 22:36 Reassessment: patient sent to ct scan via stretcher. mg2 12/16 00:49 Reassessment: dr Bernal at bedside. mg2 01:01 Reassessment: waiting for admit orders. mg2 Vital Signs: 12/15 21:52 BP 92 / 52; Pulse 59; Resp 16 S; Temp 98.0(O); Pulse Ox 100% on R/A; Weight 67.13 kg bb (R); Height 5 ft. 9 in. (175.26 cm) (R); 22:51 BP 109 / 76; Pulse 57; Resp 18; Pulse Ox 100% on R/A; mg2 23:55 BP 110 / 52; Pulse 61; Resp 18; Pulse Ox 100% on R/A; mg2 12/16 00:30 BP 93 / 75; Pulse 58; Resp 18; Temp 98; Pulse Ox 100% on R/A; mg2 12/15 21:52 Body Mass Index 21.86 (67.13 kg, 175.26 cm) bb ED Course: 12/15 21:51 Patient arrived in ED. cf2 21:53 Jhonatan Mcdonnell MD is Attending Physician. mh7 21:54 López Eddy PA is PHCP. cp 21:54 Jhonatan Mcdonnell MD is Attending Physician. cp 21:55 Triage completed. bb 21:59 Arm band placed on Patient placed in an exam room, on a stretcher, on panel monitor, bb on pulse oximetry. 22:03 Ian Anaya, LEE ANN is Primary Nurse. mg2 22:10 Maintain EMS IV. Dressing intact. Good blood return noted. Site clean \T\ dry. Gauge \T\ mg 2 site: 20 \T\ LAC. 22:20 Inserted saline lock: 20 gauge in right antecubital area, using aseptic technique. mg2 Blood collected. 22:34 No provider procedures requiring assistance completed. mg2 22:35 Patient has correct armband on for positive identification. panel monitor on. Pulse mg2 ox on. NIBP on. Door closed. Warm blanket given. 22:43 XRAY Chest (1 view) In Process Unspecified. EDMS 22:51 CT Head C Spine In Process Unspecified. EDMS 23:55 Assisted to bathroom. mg2 12/16 00:11 Marcia Bernal MD is Hospitalizing Provider. cp 00:30 Patient admitted, IV remains in place. mg2 Administered Medications: 12/15 22:15 Drug: NS 0.9% 250 ml Route: IV; Rate: bolus; Site: right antecubital; mg2 12/16 00:12 Follow up: Response: No adverse reaction; IV Status: Completed infusion; IV Intake: mg2 250ml Intake: 00:12 IV: 250ml; Total: 250ml. mg2 Outcome: 00:12 Decision to Hospitalize by Provider. cp 00:59 Admitted to Med/surg accompanied by tech, via wheelchair, room 219, with chart, Report mg2 called to LEE ANN Drummond 00:59 Condition: good 00:59 Instructed on the need for admit, Demonstrated understanding of instructions. 01:33 Patient left the ED. mg2 Signatures: Dispatcher [employer] EDKathy Osborne RN RN bb López Eddy PA PA cp Gardose, Michele, RN RN mg2 Jessica Parker 2 Jhonatan Mcdonnell MD MD mh7
[2020-12-16 00:15] LABS: Urine Blood NEGATIVE (NEG); Urine Glucose NEGATIVE (NEG); Urine Protein NEGATIVE (NEG); Urine Specific Gravity 1.015 (1.005-1.030); Urine pH 5.5 (5.0-7.0)
[2020-12-16 00:41] LABS: Urine Amorphous Sediment 1+ /HPF (NONE SEEN); Urine Bacteria 20-50 /HPF (<20); Urine Mucus 3+ /HPF (NONE SEEN)
--- NOTE | 2020-12-16 01:14 | P.HP ---
Certification for Inpatient Patient admitted to: Observation With expected LOS: <2 Midnights Patient will require the following post-hospital care: None Practitioner: I am a practitioner with admitting privileges, knowledge of patient current condition, hospital course, and medical plan of care. Services: Services provided to patient in accordance with Admission requirements found in Title 42 Section 412.3 of the Code of Federal Regulations Patient History Date of Service: 12/16/20 Reason for admission: dizziness History of Present Illness: 85-year-old female past medical history of HTN, hypothyroidism, paroxysmal atrial fibrillation, mitral valve regurgitation follows with cardiology Dr. Mcneill in [place], episode of atrial fibrillation seven months ago, admitted now after developing onset of l lightheadedness, dizziness and near-syncope with feeling of blurred/dark vision within 30 min after taking her p.m. medication today. On arrival in the ED she was noted with hypotension with systolic blood pressure in the 90s. EKG shows sinus bradycardia with heart rate of 58. She was given 1 L bolus normal saline now heart rate remained low in the 50s to low 60s. Her blood pressure has improved now. She described having a large dinner which she sees typically drops her blood pressure. She denies any change in her medications since the last 1 year. She denies any similar episode in the past. She denies any chest pain, shortness of breath. She denies any diarrhea or postprandial bowel movement. Allergies ciprofloxacin [From Cipro] Allergy (Verified 01/24/19 22:01) Unknown levofloxacin [From Levaquin] Allergy (Verified 01/24/19 22:01) Rash Home Medications: Fish Oil/Dha/Epa [Fish Oil 1,200 mg Fish Oil] 1 each PO DAILY 08/14/15 Trazodone [Desyrel*] 100 mg PO BEDTIME 08/14/15 Escitalopram [Lexapro*] 10 mg PO DAILY 01/24/19 Levothyroxine [Synthroid*] 1 tab PO [id number] 01/24/19 Magnesium [Magnesium Gluconate] 400 mg PO DAILY 01/24/19 Turmeric/Turmeric Root Extract [Turmeric 500 mg Capsule] 8,000 mg PO DAILY 01/24/19 vit A and D3 in cod liver oiL [Cod Liver Oil Softgel] 1 tab PO DAILY 01/24/19 Montelukast [Singulair*] 10 mg PO DAILY PRN 08/01/19 Ascorbic Acid [Vitamin C*] 2,000 mg PO DAILY 04/27/20 Escitalopram Oxalate [Lexapro] 10 mg PO DAILY 04/27/20 Levothyroxine [Synthroid] 50 mcg PO DAILY 04/27/20 Metoprolol Tartrate [Lopressor*] 37.5 mg PO BID 04/27/20 Olmesartan Medoxomil [Benicar] 20 mg PO DAILY 04/27/20 Amiodarone HCl [Cordarone*] 200 mg PO DAILY #30 tab 04/29/20 Apixaban [Eliquis] 5 mg PO BID #60 tablet 04/29/20 - Past Medical/Surgical History Diabetic: No -: arthritis -: depression -: severe TVR -: Hypertension -: Hypothyroidism -: hip replacement -: back surgery -: Elbow surgery -: hysterectomy -: appendectomy Psychosocial/ Personal History: Patient lives at home - Family History Father -: Heart disease Sister -: Hypertension, Stroke, Other (see notes) - Social History Smoking Status: Never smoker Alcohol use: Yes CD- Drugs: No Caffeine use: Yes Place of Residence: Home Review of Systems 10-point ROS is otherwise unremarkable Physical Examination - Physical Exam General: Alert, In no apparent distress, Oriented x3 HEENT: Atraumatic, Normocephalic, PERRLA Neck: Supple, 2+ carotid pulse no bruit, JVD not distended Respiratory: Clear to auscultation bilaterally, Normal air movement Cardiovascular: No edema, Normal pulses, Normal S1 S2 Gastrointestinal: Normal bowel sounds, Soft and benign, Non-distended Musculoskeletal: No clubbing, No swelling Integumentary: No breakdown, No significant lesion Neurological: Normal gait, Normal speech, Normal strength at 5/5 x4 extr - Studies Laboratory Data (last 24 hrs) 12/15/20 22:05: PT 11.0, INR 0.96 12/15/20 22:05: WBC 7.60 D, Hgb 10.5 L, Hct 31.5 L, Plt Count 277 12/15/20 22:05: Sodium 135 L, Potassium 4.1, BUN 22 H, Creatinine 1.17, Glucose 138 H, Magnesium 2.1, Total Bilirubin 0.2, AST 22, ALT 23, Alkaline Phosphatase 58 Assessment and Plan - Problems (Diagnosis) (1) Near syncope Current Visit: Yes Status: Acute (2) Dizziness Current Visit: Yes Status: Acute (3) HTN (hypertension) Current Visit: No Status: Chronic Qualifiers: Hypertension type: essential hypertension Qualified Code(s): I10 - Essential (primary) hypertension (4) Hypothyroidism Current Visit: No Status: Chronic Qualifiers: Hypothyroidism type: acquired Qualified Code(s): E03.9 - Hypothyroidism, unspecified - Plan Near syncope-may be due to medication induced -Will obtain tsh and adjust Synthroid dose -on metoprolol 37 mg b.i.d. given persistent borderline bradycardia will reduce dose to 25 mg b.i.d. for now -rule out ischemic event with serial set of cardiac enzymes -continue gentle IV fluid Hypotension-follow with hold of medications History of atrial fibrillation-continue beta alanis after a improved blood pressure -initiated on Eliquis after Afib episode several months ago but taken off by her Cardiology DVT prophylaxis-subcutaneous Lovenox Advanced directives-full code UTI - follow urine cx -start emprical rocephin - Advance Directives Does patient have a Living Will: No Does patient have a Durable POA for Healthcare: Yes Physician Review: Patient Assessed, Agree with Above Assessment and Plan Time Spent Managing Pts Care (In Minutes): 65
[2020-12-16] MEDS ORDERED: ONDANSETRON 4 MG/2 ML VIAL IV PRN (01:20)
[2020-12-16] MEDS ORDERED: ACETAMINOPHEN 500 MG TAB PO PRN (01:20)
[2020-12-16] MEDS ORDERED: ALBUTEROL 2.5 MG/3 ML NEB SOL NEB PRN ×2 (01:20→18:00)
[2020-12-16] MEDS ORDERED: MORPHINE 2 MG/ML SYR IV PRN (01:20)
[2020-12-16] MEDS ORDERED: MONTELUKAST 10 MG TAB PO PRN (01:22)
[2020-12-16] MEDS ORDERED: CEFTRIAXONE 1 GM/NS 50 ML 1 GM/50 ML BAG IV SCH (01:24)
[2020-12-16] MEDS ORDERED: CEFTRIAXONE/SWI 1gm 1 GM/10 ML SYR IV ONE (02:00)
[2020-12-16 02:12] VITALS: BMI 21.8
[2020-12-16] MEDS: NA CHLORIDE 0.9% 1,000 ML IV SCH ×3 (02:23→20:39)
[2020-12-16 02:30] LABS: Magnesium 2.4 mg/dL (1.8-2.4); Troponin I < 0.02 ng/mL (0.0-0.045)
--- NOTE | 2020-12-16 08:13 | RAD REPORT ---
EXAM DESCRIPTION: Skip Single View12/15/2020 10:43 pm CLINICAL HISTORY: Syncope COMPARISON: December 07, 2020 FINDINGS: The lungs appear clear of acute infiltrate. The heart is normal size IMPRESSION: No acute abnormalities displayed
[2020-12-16] MEDS: [UNRECOGNIZED DRUG - OTHER] PO SCH (09:00)
[2020-12-16] MEDS ORDERED: ENOXAPARIN 40 MG/0.4 ML SQ SCH (09:00)
[2020-12-16] MEDS: MAGNESIUM OXIDE 400 MG TAB PO SCH (09:00)
[2020-12-16] MEDS: COD LIVER OIL PO SCH (09:00)
[2020-12-16] MEDS: LEVOTHYROXINE SOD 0.05 MG TABLET PO SCH (09:46)
[2020-12-16] MEDS: ESCITALOPRAM 20 MG TAB PO SCH (09:47)
[2020-12-16] MEDS: ASCORBIC ACID 500 MG TABLET PO SCH (09:48)
--- NOTE | 2020-12-16 11:50 | P.PN ---
Date of Service: 12/16/20 Patient denies any complain except fatigue. Her blood pressure has improved. She takes only 12.5 mg of metoprolol twice a day. She denies any palpitation. Troponin trended negative. Plan: [id number] vasovagal. History of paroxysmal atrial fibrillation and mitral valve regurgitation. Hold metoprolol. Check orthostatics vitals. Echocardiogram Continue Eliquis.
--- NOTE | 2020-12-16 12:47 | RAD REPORT ---
EXAM DESCRIPTION: CT - Head C Spine Mpr Wo Con - 12/16/2020 1:59 am CLINICAL HISTORY: Syncope. TECHNIQUE: Axial, coronal, and sagittal images through the brain were performed in the absence of in travenous contrast. CT of the cervical spine was performed without contrast. Axial, coronal, and sagittal reconstructions were created and sent to PACS. These exams were performed according to our departmental dose-optimization program which includes use of Automated Exposure Control, adjustment of the mA and/or kV according to patient size and/or use o f iterative reconstruction technique. COMPARISON: CT of the head from December 07, 2020. FINDINGS: CT Head: There is diffuse age-appropriate atrophy seen throughout the brain parenchyma. Trace periventricular white matter changes are seen to be present and there is mild ex vacuo dilatation of the ventricular system. There is no intra-axial or extra-axial bleed. There is no mass or mass effect. The visualized paranasal sinuses and mastoid air cells are patent. No fracture is identified. CT cervical spine: No acute osseous abnormality identified. Straightening of the cervical spine. Vertebral body height a nd alignment are maintained. No atlantodental interval widening. Atlantoaxial alignment is maintained . C2-C3: Small posterior disc osteophyte complex. No significant central canal or neuroforaminal narrow ing. C3-C4: Moderate disc height loss. Small posterior disc osteophyte complex. Bilateral uncinate hypertr ophy results in mild right-sided neuroforaminal stenosis. No significant central canal or left neurof oraminal narrowing. C4-C5: Prominent disc height loss. Small posterior disc osteophyte complex. Bilateral uncinate hypert rophy results in mild right-sided and moderate left-sided neuroforaminal stenosis. No significant marissa tral canal narrowing. C5-C6: Moderate disc height loss. Small posterior disc osteophyte complex. Bilateral uncinate hypertr ophy results in mild right-sided and moderate left-sided neuroforaminal stenosis. No significant cent ral canal narrowing. C6-C7: Severe disc height loss. Small posterior disc osteophyte complex. Bilateral uncinate hypertrop hy results in mild right-sided and moderate left-sided neuroforaminal stenosis. No significant centra l canal narrowing. Paraspinal soft tissues: Interstitial thickening in the lung apices. IMPRESSION: 1. No acute intracranial abnormality identified. Unchanged mild age-related changes. 2. No acute abnormality identified in the cervical spine. Degenerative changes, most notable for mo derate left-sided neuroforaminal stenosis from C4-5 through C6-7. Electronically signed by: Jacque Mcgovern MD 12/15/2020 11:05 PM MEDICAL RECEPTION Due to temporary technical issues with the PACS/Fluency reporting system, reports are being signed by the in house radiologists without review as a courtesy to insure prompt reporting. The interpreting radiologist is fully responsible for the content of the report.
[2020-12-16 13:00] VITALS: O2SAT 98
[2020-12-16] MEDS: Oxycodone HCl/Acetaminophen 1 TAB TAB PO PRN (20:37)
[2020-12-16] MEDS: APIXABAN 5 MG TABLET PO SCH (20:37)
[2020-12-16] MEDS ORDERED: CEFTRIAXONE/SWI 1gm 1 GM/10 ML SYR IV SCH ×2 (21:00)
[2020-12-16] MEDS ORDERED: CEFTRIAXONE/SWI 1gm 1 GM/10 ML SYR IVP SCH (21:00)
[2020-12-17 05:19] LABS: Absolute Lymphocytes (CBC) 1.2 K/uL (0.7-4.9); Basophils % 1.1 % (0-1.3); Hematocrit 28.8 % (36.0-45.0); Lymphocytes % 19.8 % (15.3-44.8); MPV 7.3 fL (7.6-11.3); RBC Red Blood Cell Count 2.99 M/uL (3.86-4.86)
[2020-12-17 05:47] LABS: ALT/SGPT 17 U/L (12-78); AST/SGOT 12 U/L (15-37); Albumin 2.8 g/dL (3.4-5.0); Alkaline Phosphatase 49 U/L (45-117); BUN Blood Urea Nitrogen 13 mg/dL (7-18); Bicarbonate 28 mmol/L (21-32); Bilirubin Total 0.2 mg/dL (0.2-1.0); Glucose Level 82 mg/dL (74-106); Potassium 4.3 mmol/L (3.5-5.1); Protein, Total 5.1 g/dL (6.4-8.2); Sodium Level 138 mmol/L (136-145)
[2020-12-17] MEDS: NA CHLORIDE 0.9% 1,000 ML IV SCH (05:50)
[2020-12-17] MEDS: Oxycodone HCl/Acetaminophen 1 TAB TAB PO PRN (07:18)
[2020-12-17] MEDS: COD LIVER OIL PO SCH (09:00)
[2020-12-17] MEDS ORDERED: CETIRIZINE HCL 5 MG TABLET PO SCH (09:00)
[2020-12-17] MEDS: LEVOTHYROXINE SOD 0.05 MG TABLET PO SCH (09:00)
[2020-12-17] MEDS: MAGNESIUM OXIDE 400 MG TAB PO SCH (09:00)
[2020-12-17] MEDS ORDERED: ESCITALOPRAM 20 MG TAB PO SCH (09:00)
[2020-12-17] MEDS: [UNRECOGNIZED DRUG - OTHER] PO SCH (09:00)
[2020-12-17] MEDS: ASCORBIC ACID 500 MG TABLET PO SCH (10:30)
[2020-12-17] MEDS: ESCITALOPRAM 20 MG TAB PO SCH (10:31)
[2020-12-17] MEDS: APIXABAN 5 MG TABLET PO SCH (10:31)
[2020-12-17 17:01] VITALS: BP 135/65; TEMP 97.1
--- NOTE | 2020-12-17 17:10 | P.DS ---
Admission Date: 12/15/20 Discharge Date: 12/17/20 Disposition: ROUTINE DISCHARGE Discharge Condition: GOOD Reason for Admission: dizziness, near-syncope Procedures: CXR (12/15): No acute abnormalities displayed CT Head/C-spine (12/15): 1. No acute intracranial abnormality identified. Unchanged mild age-related changes. 2. No acute abnormality identified in the cervical spine. Degenerative changes, most notable for moderate left-sided neuroforaminal stenosis from C4-5 through C6-7. TTE (12/17): final read pending at time of discharge, however verbal report given by Cnc Machine Programmer prior to discharge. Problem List: [id number]-mnqyde vasovagal. History of paroxysmal atrial fibrillation and mitral valve regurgitation. Chronic Back pain on opioid medication h/o moderate-severe pulmonary hypertension Brief History of Present Illness: 85yo F, PMH: HTN, hypothyroidism, paroxysmal atrial fibrillation, mitral valve regurgitation follows with cardiology Dr. Mcneill in [place], episode of atrial fibrillation seven months ago, admitted now after developing onset of lightheadedness, dizziness and near-syncope with feeling of blurred/dark vision within 30 min after taking her p.m. medication. On arrival in the ED she was noted with hypotension with SBP in the 90s. EKG shows sinus bradycardia with heart rate of 58. She was given 1 L bolus normal saline, with heart rate remaining low in the 50s to low 60s. Her blood pressure improved. She described having a large dinner which she sees typically drops her blood pressure. She also reports prior vsaovagal episodes that she states are due to severe pain. She denies any change in her medications since the last 1 year. She denies any chest pain, shortness of breath. She denies any diarrhea or postprandial bowel movement. Hospital Course: Patient was admitted for further evaluation of her near syncopal episode. Patients work up was only notable for hypotension and bradycardia, possibly due to medication. UA was suggestive for UTI, however the patient denied any UTI symptoms, and urine culture grew mixed luciana, so she was not discharged home on antibiotics.. Her hypertension and bradycardia improved with IV fluid hydration and discontinuation of her home metoprolol. Patient reported feeling much better, had negative orthostatic vital signs, and had a repeat echocardiogram without any significant worsening/worrisome features. Patient ambulated well with physical therapy and was medically cleared for discharge home. She is advised to hold her Lasix for the next 3-4 days, and to hold her metoprolol until she follows up with her data control assistant, which she states she will be talking to tomorrow. Vital Signs/Physical Exam: Temp Pulse Resp BP Pulse Ox 97.1 F 66 16 135/65 99 12/17/20 16:00 12/17/20 16:00 12/17/20 16:00 12/17/20 16:00 12/17/20 16:00 General: Alert, In no apparent distress, Oriented x3 HEENT: Sclerae nonicteric Neck: 2+ carotid pulse no bruit Respiratory: Clear to auscultation bilaterally, Normal air movement Cardiovascular: No edema, Regular rate/rhythm Gastrointestinal: Soft and benign, Non-distended, No tenderness Musculoskeletal: No tenderness Integumentary: No rashes Neurological: Normal speech, Normal strength at 5/5 x4 extr, Cranial nerves 3-12 intact Laboratory Data at Discharge: WBC 6.20 K/uL (4.3-10.9) D 12/17/20 04:44 Hgb 9.6 g/dL (12.0-15.0) L 12/17/20 04:44 Hct 28.8 % (36.0-45.0) L 12/17/20 04:44 Plt Count 248 K/uL (152-406) 12/17/20 04:44 PT 11.0 SECONDS (9.5-12.5) 12/15/20 22:05 INR 0.96 12/15/20 22:05 Sodium 138 mmol/L (136-145) 12/17/20 04:44 Potassium 4.3 mmol/L (3.5-5.1) 12/17/20 04:44 BUN 13 mg/dL (7-18) 12/17/20 04:44 Creatinine 0.54 mg/dL (0.55-1.3) L 12/17/20 04:44 Glucose 82 mg/dL (74-106) 12/17/20 04:44 Magnesium 2.0 mg/dL (1.8-2.4) 12/17/20 01:10 Total Bilirubin 0.2 mg/dL (0.2-1.0) 12/17/20 04:44 AST 12 U/L (15-37) L 12/17/20 04:44 ALT 17 U/L (12-78) 12/17/20 04:44 Alkaline Phosphatase 49 U/L (45-117) 12/17/20 04:44 Troponin I < 0.02 ng/mL (0.0-0.045) 12/16/20 05:35 Home Medications: Fish Oil/Dha/Epa [Fish Oil 1,200 mg Fish Oil] 1 each PO DAILY 08/14/15 Trazodone [Desyrel*] 100 mg PO BEDTIME 08/14/15 Escitalopram [Lexapro*] 10 mg PO DAILY 01/24/19 Levothyroxine [Synthroid*] 25 mcg PO DIRECTED 01/24/19 Magnesium [Magnesium Gluconate] 400 mg PO DAILY 01/24/19 Turmeric/Turmeric Root Extract [Turmeric 500 mg Capsule] 8,000 mg PO DAILY 01/24/19 vit A and D3 in cod liver oiL [Cod Liver Oil Softgel] 1 tab PO DAILY 01/24/19 Montelukast [Singulair*] 10 mg PO DAILY PRN 08/01/19 Ascorbic Acid [Vitamin C*] 2,000 mg PO DAILY 04/27/20 Levothyroxine [Synthroid*] 50 mcg PO DIRECTED 04/27/20 Metoprolol Tartrate [Lopressor*] 12.5 mg PO BID 04/27/20 Olmesartan Medoxomil [Benicar] 10 mg PO DAILY 04/27/20 Apixaban [Eliquis] 5 mg PO BID #60 tablet 04/29/20 Celecoxib [Celebrex] 200 mg PO DAILY 12/16/20 Cetirizine HCl [Zyrtec] 10 mg PO DAILY 12/16/20 Furosemide [Lasix] 20 mg PO BID 12/16/20 Physician Discharge Instructions: Your workup for your near-syncope was rather benign. You did not have a stroke, and it did not seem to be due to your heart. You were found to have low blood pressure and a slow heart rate when you presented to the ED, which improved with IV fluids and holding your home lasix and metoprolol. As discussed, recommend you follow up with your Cnc Machine Programmer in the next 1-2 weeks. Recommend holding your lasix for the next 3-4 days unless you notice significant worsening of your swelling or shortness of breath. Recommend holding your home metoprolol dose as well - at least until you further discuss with your Cnc Machine Programmer - your sys tolic blood pressure was down in the 90s and heart rate in the 50s in the emergency department. Diet: AHA Activity: Ad bria Followup: NONE,NONE [Primary Care Provider] - Time spent managing pt's care (in minutes): 40
--- NOTE | 2020-12-17 17:13 | EKG ---
Test Date: 2020-12-15 Test Time: 21:52:40 Project Development Coordinator: MEASUREMENT RESULTS: Intervals: Rate: 58 UT: 206 QRSD: 76 QT: 438 QTc: 429 [place]: P: 65 UT: 206 QRS: 61 T: 92 INTERPRETIVE STATEMENTS: Sinus bradycardia Nonspecific ST and T wave abnormality Abnormal ECG Compared to ECG 12/07/2020 21:14:45 ST (T wave) deviation now present Sinus rhythm no longer present T-wave abnormality no longer present Possible ischemia no longer present Electronically Signed On 12-17-20 17:06:43 HEAD SAMPLER by Mingo David
--- NOTE | 2020-12-18 10:00 | ECHO ---
HEIGHT: 5 ft 9 in WEIGHT: 148 lb 0 oz DATE OF STUDY: 12/17/[address]: machelle felix 2-DIMENSIONAL: YES M.MODE: YES DOPPLER: YES COLOR FLOW: YES TDS: NO PORTABLE: NO DEFINITY: NO BUBBLE STUDY: NO DIAGNOSIS: SYNCOPE CARDIAC HISTORY: CATHERIZATION: NO SURGERY: NO PROSTHETIC VALVE: NO PACEMAKER: NO MEASUREMENTS (cm) DIASTOLIC (NORMALS) SYSTOLIC (NORMALS) IVSd 0.9 (0.6-1.2) LA Diam 3.0 (1.9-4.0) LVEF 75% LVIDd 4.5 (3.5-5.7) LVIDs 2.5 (2.0-3.5) %FS 43% LVPWd 0.8 (0.6-1.2) Ao Diam 3.2 (2.0-3.7) 2 DIMENSIONAL ASSESSMENT: RIGHT ATRIUM: NORMAL LEFT ATRIUM: NORMAL RIGHT VENTRICLE: NORMAL LEFT VENTRICLE: NORMAL TRICUSPID VALVE: NORMAL MITRAL VALVE: NORMAL PULMONIC VALVE: NORMAL AORTIC VALVE: NORMAL PERICARDIAL EFFUSION: NONE AORTIC ROOT: NORMAL LEFT VENTRICULAR WALL MOTION: NORMAL DOPPLER/COLOR FLOW: MILD TRICUSPID REGURGITATION. RIGHT VENTRICULAR SYSTOLIC PRESSURE 47 mmHg. COMMENTS: NORMAL 2D ECHOCARDIOGRAM. NO EFFUSION. NO WALL MOTION ABNORMALITY. MILD TO MODERATE PULMONARY HYPERTENSION 47 mmHg. MILD TRICUSPID REGURGITATION. TECHNOLOGIST: Ary LOPEZ
== END 2020-12-17 18:45 | disposition home or self-care (01) | DRG 312 ==
LOC: ER 21:47 → 2ND 12-16 01:31 → OBSVTOIN 12-17 13:24
PROVIDERS: ADMIT Internal Medicine; ATTEND Hospitalist
DX: R55 Syncope and collapse (principal); I10 Essential (primary) hypertension; G89.29 Other chronic pain; M54.9 Dorsalgia, unspecified; E03.9 Hypothyroidism, unspecified; R42 Dizziness and giddiness; T50.905A Adverse effect of unspecified drugs, medicaments and biological substances, initial encounter; Z88.1 Allergy status to other antibiotic agents; Z79.01 Long term (current) use of anticoagulants; Z79.899 Other long term (current) drug therapy; Z79.890 Hormone replacement therapy; Z96.649 Presence of unspecified artificial hip joint; Z90.49 Acquired absence of other specified parts of digestive tract; Z90.710 Acquired absence of both cervix and uterus; Z20.822 Contact with and (suspected) exposure to COVID-19
CPT/HCPCS: 36415; 70450; 71045; 72125; 80048; 80053; 80076; 81003; 81015; 83605; 83735; 83880; 84145; 84443; 84484; 85025; 85610; 87040; 87086; 87088; 93005; 93306; 96365; 96366; 97161; 99285; G0378; J0696; J1650; J7030; J7050; U0003

== ENCOUNTER 2021-09-09 10:05 | Emergency (ER) | payer OTHER ==
--- OUTSIDE RECORDS SUMMARY | 2021-09-09 10:09 | XMS REPORT | Continuity of Care Document ---
:1935 Author Organization [facility] t Address [address] [place] [address] Care Team Providers Name Role Phone KATHY NEWMAN Attending Clinician Unavailable KATHY NEWMAN Attending Clinician Unavailable Kathy Newman MD Attending Clinician MADELYN Attending Clinician Unavailable Rika HUTCHISON Attending Clinician Unavailable MARIAN Attending Clinician Unavailable Samuel Sanchez Attending Clinician Unavailable Payers Payer Name Policy Type Policy Number Effective Date Expiration Date [facility] [id number] 2020 [facility] 00:00:00 PPO Problems This patient has no known problems. Allergies, Adverse Reactions, Alerts Allergy Allergy Status Severity Reaction(s) Onset Inactive Treating Comm ents Source Name Type Date Date Clinician CIPROFLO DRUG Active Rash 2019-10 Univers XAFORMERLY [facility] INGREDI 10-19 ity of 00:00: [address] [place] levoflox DA Active [facility] acin 03-07 [place] 00:00: [facility] levoflox DA Active [facility] acin 03-07 [place] 00:00: Orthope [facility] Medications This patient has no known medications. Procedures This patient has no known procedures. Encounters Start End Encounter Admission Attending Care Care Encounter Source Date/Time Date/Time Type Type Clinicians Facility Department ID 2021-02-08 2021-02-08 Outpatient MARCO CISNEROS [facility] [id number] Univers 15:00:00 15:00:00 MARCO NEWMAN [id number] [facility] 2021-02-08 2021-02-08 Outpatient MARCO CISNEROS [facility] [id number] Univers 15:00:00 15:00:00 MARCO NEWMAN [facility] 2020-12-20 2020-12-20 Outpatient MARCO CISNEROS [facility] [id number] Univers 10:00:00 10:00:00 PATYMARCO BRAGA [id number] [facility] 2020-12-20 2020-12-20 Outpatient MARCO CISNEROS [facility] [id number] Univers 00:00:00 00:00:00 MARCO NEWMAN [facility] 2020-11-24 2020-11-24 Outpatient [facility] [id number] [address] [place] [address] 00:00:00 00:00:00 073 Method i 2020-11-13 2020-11-13 Telephone Paty [facility] [id number] 00:00:00 00:00:00 Marco Gao [id number] [place] [id number] Professio [phone] nal 2 [facility] 2020-11-03 2020-11-03 Outpatient [facility] [id number] [address] [place] [address] 00:00:00 00:00:00 336 Method i 2020-11-02 2020-11-02 Office Paty, [facility] [id number] 14:12:48 16:16:50 Visit Marco Gao [id number] [place] [id number] Professio [phone] nal 092 [facility] 2020-11-02 2020-11-02 Outpatient MARCO CISNEROS [facility] [id number] Univers 14:20:00 14:20:00 MARCO NEWMAN [id number] [facility] 2020-11-02 2020-11-02 Outpatient R [facility] [id number] Univers 14:20:00 14:20:00 [facility] 2020-10-24 2020-10-24 Outpatient Marlon JOSHI [facility] [id number] Univers 11:00:00 11:00:00 RONAN [id number] [facility]mark o [facility] 2020-10-24 2020-10-24 Outpatient Marlon JOSHI [facility] [id number] Univers 11:00:00 11:00:00 RONAN [facility]mark o f [facility] 2020-09-11 2020-09-11 Outpatient MARCO CISNEROS [facility] [id number] Univers 15:00:00 15:00:00 PATY, MARCO [id number] [facility] 2020-09-11 2020-09-11 Outpatient MARCO CISNEROS [facility] [id number] Univers 15:00:00 15:00:00 MARCO NEWMAN [facility] 2020-08-19 2020-08-19 Emergency X KIANNA [facility] ERT [id number] Univers 09:20:00 09:20:00 IVAN [facility] 2020-05-23 2020-05-23 [facility] [id number] [place] 00:00:00 00:00:00 DANE 462 Method i 2020-05-23 2020-05-23 Outpatient [facility], [facility] [id number] [place] 00:00:00 00:00:00 DANE 770 Method i 2019-12-02 2019-12-02 Outpatient JANIS SanchezTO [facility] [id number] [facility] 12:15:00 12:15:[id number] [place] [address] Orthope [facility] Results Test Description Test Time Test Comments Results Result [facility] e Comments - MRI L-SPINE W/O 2019-12-05 Patient Name: CONT 13:16:00 ANDI SMILEY Unit No: [id number] EXAMS: CPT CODE: [id number] MRI L-SPINE W/O CONT [id number] TECHNIQUE: Multiplanar, multisequence MRI examination performed of [...] Reported and signed by: Bartolo Brumfield M.D. [facility] NAME: ANDI SMILEY [address] [facility] PHYS: Lobo Villalba MD : 1935 AGE: 84 SEX: F [place], [place] [address] LOC: Y.MRI PHONE #: [phone] EXAM DATE: 12/02/2019 STATUS: DEP CLI FAX #: [phone] RAD #: D/C DT PAGE 1 Signed Report (CONTINUED) Patient Name: ANDI SMILEY Unit No: [id number] EXAMS: CPT CODE: [id number] MRI L-SPINE W/O CONT [id number] <Continued> CC: Richi Sanchez M.D. Technologist: AMRIK FORD, MRI Transcribed D/ (1316) SilvanoSLJ [facility] NAME: ANDI SMILEY [address] [facility] PHYS: Lobo Villalba MD : 1935 AGE: 84 SEX: F [place] [address] LOC: Y.MRI PHONE #: [phone] EXAM DATE: 12/02/2019 STATUS: DEP CLI FAX #: [phone] RAD #: D/C DT PAGE 2 Signed Report Patient Name: ANDI SMILEY Unit No: [id number] EXAMS: CPT CODE: [id number] MRI L-SPINE W/O CONT [id number] <Continued> Orig Print D/T: S: 12/05/2019 (0200) [facility] NAME: ANDI SMILEY [address] [place] [address] PHYS: Lobo Villalba MD : 1935 AGE: 84 SEX: F [place] [address] LOC: Y.MRI PHONE #: [phone] EXAM DATE: 12/02/2019 STATUS: DEP CLI FAX #: [phone] RAD #: D/C DT PAGE 3 Signed Report
--- NOTE | 2021-09-09 11:05 | RAD REPORT ---
EXAM DESCRIPTION: RAD - Chest Single View - 09/09/2021 10:38 am CLINICAL HISTORY: Shortness of breath Chest pain. COMPARISON: Chest Single View dated 12/15/2020; Chest Single View dated 12/07/2020; Chest Single View dated 09/26/2020; Chest Single View dated 06/26/2020 FINDINGS: Portable technique limits examination quality. The lungs are mildly emphysematous but grossly clear. The heart is normal in size. No displaced fract ures.Moderate lower thoracic dextroscoliosis. IMPRESSION: No acute intrathoracic process suspected.
[2021-09-09 11:31] LABS: Absolute Lymphocytes (CBC) 0.9 K/uL (0.7-4.9); Basophils % 1.1 % (0-1.3); Hematocrit 33.1 % (36.0-45.0); Lymphocytes % 11.9 % (15.3-44.8); MPV 7.1 fL (7.6-11.3); RBC Red Blood Cell Count 3.33 M/uL (3.86-4.86)
[2021-09-09 12:12] LABS: ALT/SGPT 22 U/L (12-78); Albumin 3.5 g/dL (3.4-5.0); Alkaline Phosphatase 61 U/L (45-117); BUN Blood Urea Nitrogen 12 mg/dL (7-18); Bicarbonate 28 mmol/L (21-32); Bilirubin Direct 0.2 mg/dL (0-0.2); Bilirubin Total 0.5 mg/dL (0.2-1.0); Glucose Level 87 mg/dL (74-106); NT PRO-BNP 2542 pg/mL (<450); Protein, Total 6.7 g/dL (6.4-8.2); Sodium Level 136 mmol/L (136-145); Troponin (Emerg Dept Use Only) < 0.02 ng/mL (0.0-0.045)
[2021-09-09 12:13] LABS: AST/SGOT 20 U/L (15-37); Magnesium 2.2 mg/dL (1.8-2.4); Potassium 4.4 mmol/L (3.5-5.1)
[2021-09-09] MEDS ORDERED: ACETAMINOPHEN 500 MG TAB ONE ×2 (12:32→13:13)
[2021-09-09 12:43] LABS: Protime INR 1.57
--- NOTE | 2021-09-09 14:34 | ER ---
Nurse's Notes [facility] Name: Scarlett Garrett Age: 86 yrs Sex: Female : 1935 Arrival Date: 09/09/2021 Time: 10:08 Bed 15 Private MD: Diagnosis: Cough;Shortness of breath;Viral infection, unspecified Presentation: 09/09 10:12 Chief complaint: Patient states: cough that began 1 week ago, pt reports negative aa5 covid-19 test last week. Pt c/o SOB and low O2 sat down to 88% today, pt states "I'm not sure if the oxygen reading was accurate". No respiratory distress noted. Coronavirus screen: cough unrelated to allergies. Ebola Screen: No symptoms or risks identified at this time. Initial Sepsis Screen: Does the patient meet any 2 criteria? No. Patient's initial sepsis screen is negative. Does the patient have a suspected source of infection? No. Patient's initial sepsis screen is negative. Risk Assessment: Do you want to hurt yourself or someone else? Patient reports no desire to harm self or others. Onset of symptoms was September 09, 2021. 10:12 Acuity: VANESA 3 aa5 10:12 Method Of Arrival: Wheelchair aa5 Triage Assessment: 11:59 General: Appears in no apparent distress. Respiratory: Respiratory: Reports shortness jh5 of breath Onset: The symptoms/episode began/occurred gradually. Historical: - Allergies: 10:14 Cipro; aa5 10:14 Levaquin; aa5 - Home Meds: 11:59 areds daily [Active]; jh5 - PMHx: 10:14 Arthritis; Atrial Fib; Depression; Hypertension; Hypothyroidism; mitral valve; severe aa5 tricuspid valve regurgitation; - Immunization history:: Client reports receiving the 2nd dose of the Covid vaccine, booster Flu vaccine is up to date. - Social history:: Smoking status: Patient denies any tobacco usage or history of. Screenin:58 Abuse screen: Denies threats or abuse. Denies injuries from another. Nutritional jh5 screening: No deficits noted. Tuberculosis screening: No symptoms or risk factors identified. Fall Risk None identified. Assessment: 11:57 General: Appears in no apparent distress. comfortable, slender, well groomed, Behavior jh5 is calm, cooperative, appropriate for age. Pain: Denies pain. Cardiovascular: No deficits noted. Capillary refill < 3 seconds Patient's skin is warm and dry. Rhythm is sinus bradycardia. Respiratory: Airway is patent Trachea midline Respiratory effort is even, unlabored, Respiratory pattern is regular, symmetrical. 12:00 Respiratory: Breath sounds are clear. [facility] Vital Signs: 10:12 BP 165 / 77; Pulse 64; Resp 18 S; Temp 97.1(TE); Pulse Ox 100% on R/A; Weight 68.04 kg aa5 (R); Height 5 ft. 9 in. (175.26 cm) (R); 14:27 Pulse 66; Resp 16; Pulse Ox 96% on R/A; 3 10:12 Body Mass Index 22.15 (68.04 kg, 175.26 cm) [facility] 14:27 ambulating [facility] ED Course: 10:08 Patient arrived in ED. as 10:12 Arm band placed on. [facility] 10:14 Triage completed. [facility] 10:15 Anton Cha MD is Attending Physician. kdr 10:29 Margarita Dial, RN is Primary Nurse. [facility] 10:38 XRAY Chest (1 view) In Process Unspecified. EDMS 11:58 No provider procedures requiring assistance completed. Inserted saline lock: 22 gauge [facility] in right hand, using aseptic technique. 11:59 Patient has correct armband on for positive identification. Bed in low position. Call [facility] light in reach. Side rails up X 1. hospital monitor on. Pulse ox on. NIBP on. 14:27 COVID-19/FLU A+B (Document "Date of Onset" if Symptomatic) Sent. [facility] Administered Medications: No medications were administered Outcome: 14:33 Discharge ordered by . kdr 14:44 Patient left the ED. [facility] Signatures: Dispatcher [employer] EDCA Anton Cha MD MD kdr Debby Martinez Audri RN RN [facility] Annel Galan [facility] Margarita Dial, LEE ANN RN [facility]
--- NOTE | 2021-09-09 14:34 | EDPHYS ---
Physician Documentation [facility] Name: Scarlett Garrett Age: 86 yrs Sex: Female : 1935 Arrival Date: 09/09/2021 Time: 10:08 Bed 15 Private MD: ED Physician Anton Cha HPI: 09/09 10:40 This 86 yrs old Female presents to ER via Wheelchair with complaints of kdr Shortness Of Breath. 10:40 The patient has shortness of breath at rest, with light activity. Onset: The kdr symptoms/episode began/occurred gradually, 1 week(s) ago. 10:43 Duration: The symptoms are continuous, and are steadily getting worse. The patient's kdr shortness of breath is aggravated by coughing, exertion, light activity. Associated signs and symptoms: Pertinent positives: Shortness of breath and sputum. Severity of symptoms: At their worst the symptoms were mild moderate just prior to arrival. The patient has not experienced similar symptoms in the past. The patient has not recently seen a physician. Patient had a negative Covid test last week. This week she has had progressively worsening shortness of breath. She states that her lungs are normally good and that her oxygen saturation has been in the high 90s. Over the past week that saturation level has diminished and this morning she noted that her oxygen saturation was 88% when she initially woke. Her physician had told her to come to the ED should her saturations fall below 90. She states that she is also had productive cough and at times cannot seem to clear her airway. She did have a Covid test last week which was negative. Historical: - Allergies: 10:14 Cipro; aa5 10:14 Levaquin; aa5 - Home Meds: 11:59 areds daily [Active]; jh5 - PMHx: 10:14 Arthritis; Atrial Fib; Depression; Hypertension; Hypothyroidism; mitral valve; severe aa5 tricuspid valve regurgitation; - Immunization history:: Client reports receiving the 2nd dose of the Covid vaccine, booster Flu vaccine is up to date. - Social history:: Smoking status: Patient denies any tobacco usage or history of. ROS: 10:45 Constitutional: Negative for fever, chills, and weight loss, Eyes: Negative for injury, kdr pain, redness, and discharge, Neck: Negative for injury, pain, and swelling, Cardiovascular: Negative for chest pain, palpitations, and edema, Abdomen/GI: Negative for abdominal pain, nausea, vomiting, diarrhea, and constipation, Back: Negative for injury and pain, : Negative for injury, bleeding, discharge, and swelling, MS/Extremity: Negative for injury and deformity, Skin: Negative for injury, rash, and discoloration, Neuro: Negative for headache, weakness, numbness, tingling, and seizure activity. Psych: Negative for depression, anxiety, suicide ideation, homicidal ideation, and hallucinations, Allergy/Immunology: Negative for hives, rash, and allergies, Endocrine: Negative for neck swelling, polydipsia, polyuria, polyphagia, and marked weight changes, Hematologic/Lymphatic: Negative for swollen nodes, abnormal bleeding, and unusual bruising. 10:45 Respiratory: Positive for cough, with clear sputum. Exam: 10:45 Constitutional: This is a well developed, well nourished patient who is awake, alert, kdr and in no acute distress. Head/Face: Normocephalic, atraumatic. Eyes: Pupils equal round and reactive to light, extra-ocular motions intact. Lids and lashes normal. Conjunctiva and sclera are non-icteric and not injected. Cornea within normal limits. Periorbital areas with no swelling, redness, or edema. Neck: Trachea midline, no thyromegaly or masses palpated, and no cervical lymphadenopathy. Supple, full range of motion without nuchal rigidity, or vertebral point tenderness. No Meningismus. Chest/axilla: Normal chest wall appearance and motion. Nontender with no deformity. No lesions are appreciated. Cardiovascular: Regular rate and rhythm with a normal S1 and S2. No gallops, murmurs, or rubs. Normal PMI, no JVD. No pulse deficits. Respiratory: Lungs have equal breath sounds bilaterally, clear to auscultation and percussion. No rales, rhonchi or wheezes noted. No increased work of breathing, no retractions or nasal flaring. Abdomen/GI: Soft, non-tender, with normal bowel sounds. No distension or tympany. No guarding or rebound. No evidence of tenderness throughout. Back: No spinal tenderness. No costovertebral tenderness. Full range of motion. Skin: Warm, dry with normal turgor. Normal color with no rashes, no lesions, and no evidence of cellulitis. MS/ Extremity: Pulses equal, no cyanosis. Neurovascular intact. Full, normal range of motion. Neuro: Awake and alert, GCS 15, oriented to person, place, time, and situation. Cranial nerves II-XII grossly intact. Motor strength 5/5 in all extremities. Sensory grossly intact. Cerebellar exam normal. Normal gait. Psych: Awake, alert, with orientation to person, place and time. Behavior, mood, and affect are within normal limits. 11:17 ECG was reviewed by the Attending Physician. kdr Vital Signs: 10:12 BP 165 / 77; Pulse 64; Resp 18 S; Temp 97.1(TE); Pulse Ox 100% on R/A; Weight 68.04 kg aa5 (R); Height 5 ft. 9 in. (175.26 cm) (R); 14:27 Pulse 66; Resp 16; Pulse Ox 96% on R/A; dh3 10:12 Body Mass Index 22.15 (68.04 kg, 175.26 cm) aa5 14:27 ambulating dh3 MDM: 14:33 Patient medically screened. kdr 14:37 Data reviewed: vital signs, nurses notes. ED course: QUALITY CONTROL TECHNICIAN aware consulted. Patient has a kdr recurring hydrocodone prescription which is getting filled. She is also had some vIRTUSSIN AC and alprazolam. 09/09 10:16 Order name: Basic Metabolic Panel; Complete Time: 13:41 [facility] 09/09 10:16 Order name: CBC with Diff; Complete Time: 12:06 [facility] 09/09 10:16 Order name: LFT's; Complete Time: 13:41 [facility] 09/09 10:16 Order name: Magnesium; Complete Time: 13:41 [facility] 09/09 10:16 Order name: NT PRO-BNP; Complete Time: 13:41 [facility] 09/09 10:16 Order name: PT-INR; Complete Time: 13:41 [facility] 09/09 10:16 Order name: Troponin (emerg Dept Use Only); Complete Time: 13:41 [facility] 09/09 10:16 Order name: XRAY Chest (1 view); Complete Time: 12:06 [facility] 09/09 10:16 Order name: EKG; Complete Time: 10:17 [facility] 09/09 10:16 Order name: Cardiac monitoring; Complete Time: 10: [facility] 09/09 10:16 Order name: EKG - Nurse/Tech; Complete Time: 11:16 kdr 09/09 14:04 Order name: COVID-19/FLU A+B (Document "Date of Onset" if Symptomatic) iw 09/09 10:16 Order name: IV Saline Lock; Complete Time: 11:23 kdr 09/09 10:16 Order name: Labs collected and sent; Complete Time: 11: kdr 09/09 10:16 Order name: O2 Per Protocol; Complete Time: : kdr 09/09 10:16 Order name: O2 Sat Monitoring; Complete Time: : kdr 09/09 11:31 Order name: Labs - recollect needed: recollect all tubes; Complete Time: 11:39 09/09 13:44 Order name: Misc. Order: Ambulate patient and record vital signs ; Complete Time: 14:26 kdr EC:17 Rate is 51 beats/min. Rhythm is regular, Sinus bradycardia with No ectopy. QRS [place] is kdr Normal. WI interval is normal. QRS interval is normal. QT interval is normal. Clinical impression: Sinus bradycardia and Nonspecific ST/T changes otherwise normal. Administered Medications: No medications were administered Disposition Summary: 09/09/21 14:33 Discharge Ordered Location: Home kdr Problem: an ongoing problem kdr Symptoms: have improved kdr Condition: Stable kdr Diagnosis - Cough kdr - Shortness of breath kdr - Viral infection, unspecified kdr Followup: kdr - With: Private Physician - When: 2 - 3 days - Reason: If symptoms return, Further diagnostic work-up, Recheck today's complaints, Continuance of care, Re-evaluation by your physician Discharge Instructions: - Discharge Summary Sheet kdr - Shortness of Breath, Adult, Vpip-yr-Ursu kdr - Cough, Adult, Xhio-cy-Ltvu kdr Forms: - Medication Reconciliation Form kdr - Thank You Letter kdr - Prescription Opioid Use kdr Prescriptions: - Promethazine VC-Codeine 6.25-5-10 mg/5 mL Oral syrup - take 5 milliliter by ORAL route every 4-6 hours As needed as needed, not to kdr exceed 30 mL in 24 hours; 200 milliliter; Refills: 0, Product Selection Permitted Signatures: Dispatcher [employer] EDMS Kell Guzman Kevin, MD MD kdr Kandi Michelle, LEE ANN RN aa5 Jayro, Margarita, RN RN jh5
[2021-09-09 15:07] VITALS: BP 165/77; TEMP 97.1
[2021-09-09 15:08] VITALS: O2SAT 96
[2021-09-09 15:25] LABS: SARS-COV-2 RT PCR NEGATIVE (NEGATIVE)
--- NOTE | 2021-09-11 08:09 | EKG ---
Test Date: 2021-09-09 Test Time: 11:10:34 Ventilation Mechanic: JR Mason MEASUREMENT RESULTS: Intervals: Rate: 51 MI: 208 QRSD: 80 QT: 448 QTc: 412 Lawrence: P: 67 MI: 208 QRS: 18 T: 30 INTERPRETIVE STATEMENTS: Sinus bradycardia Nonspecific ST abnormality Abnormal ECG Compared to ECG 12/15/2020 21:52:40 No significant changes Electronically Signed On 09-11-21 08:03:49 DIRECTOR OF BROADCAST by Mingo David
== END 2021-09-09 14:44 | disposition home or self-care (01) ==
LOC: ER 10:05 → SUPCPDRO 10:05 → ER 14:44
DX: B34.9 Viral infection, unspecified (principal); R05.9 Cough, unspecified; I10 Essential (primary) hypertension; Z88.1 Allergy status to other antibiotic agents; Z20.822 Contact with and (suspected) exposure to COVID-19
CPT/HCPCS: 93005; 85025; 80048; 36415; 83735; 85610; 80076; 84484; 83880; 0240U; 71045; 99284

== ENCOUNTER 2021-11-04 20:44 | Emergency (ER) | payer OTHER ==
--- OUTSIDE RECORDS SUMMARY | 2021-11-04 20:47 | XMS REPORT | Continuity of Care Document ---
:1935 Author Organization [facility] t Address [address] [place] [address] Care Team Providers Name Role Phone KATHY NEWMAN Attending Clinician Unavailable KATHY NEWMAN Attending Clinician Unavailable Kathy Newman MD Attending Clinician MADELYN Attending Clinician Unavailable Rika HUTCHISON Attending Clinician Unavailable MARIAN Attending Clinician Unavailable Samuel Sanchez Attending Clinician Unavailable Payers Payer Name Policy Type Policy Number Effective Date Expiration Date [facility] [id number] 2020 [facility] 00:00:00 PPO Problems This patient has no known problems. Allergies, Adverse Reactions, Alerts Allergy Allergy Status Severity Reaction(s) Onset Inactive Treating Comm ents Source Name Type Date Date Clinician CIPROFLO DRUG Active Rash 2019-10 Univers [facility] 10-19 ity of 00:00: [address] Branch levoflox DA Active MD [facility] acin 03-07 [place] 00:00: [facility] levoflox DA Active MD RASH [facility] acin 03-07 [place] 00:00: Orthope [facility] Medications This patient has no known medications. Procedures This patient has no known procedures. Encounters Start End Encounter Admission Attending Care Care Encounter Source Date/Time Date/Time Type Type Clinicians Facility Department ID 2021-02-08 2021-02-08 Outpatient MARCO CISNEROS [facility] [id number] Univers 15:00:00 15:00:00 MARCO NEWMAN [id number] [facility] 2021-02-08 2021-02-08 Outpatient MARCO ICSNEROS [facility] [id number] Univers 15:00:00 15:00:00 MARCO NEWMAN [facility] 2020-12-20 2020-12-20 Outpatient MARCO CISNEROS [facility] [id number] Univers 10:00:00 10:00:00 PATYMARCO BRAGA [id number] [facility] 2020-12-20 2020-12-20 Outpatient MARCO CISNEROS [facility] [id number] Univers 00:00:00 00:00:00 MARCO NEWMAN [facility] 2020-11-24 2020-11-24 Outpatient [facility] [id number] [address] [place] [address] 00:00:00 00:00:00 073 Method i 2020-11-13 2020-11-13 Telephone Paty [facility] [id number] 00:00:00 00:00:00 Marco Gao [id number] [place] [id number] Professio [phone] nal 2 [facility] 2020-11-03 2020-11-03 Outpatient [facility] [id number] [address] [place] [address] 00:00:00 00:00:00 336 Method i 2020-11-02 2020-11-02 Office Paty, [facility] [id number] 14:12:48 16:16:50 Visit Marco Gao [id number] [place] [id number] Professio [id number] nal 092 [facility] 2020-11-02 2020-11-02 Outpatient MARCO CISNEROS [facility] [id number] Univers 14:20:00 14:20:00 MARCO NEWMAN [id number] [facility] 2020-11-02 2020-11-02 Outpatient R [facility] [id number] Univers 14:20:00 14:20:00 [facility] 2020-10-24 2020-10-24 Outpatient Marlon JOSHI [facility] [id number] Univers 11:00:00 11:00:00 RONAN [id number] [facility] 2020-10-24 2020-10-24 Outpatient Marlon JOSHI [facility] [id number] Univers 11:00:00 11:00:00 RONAN [facility] 2020-09-11 2020-09-11 Outpatient MARCO CISNEROS [facility] [id number] Univers 15:00:00 15:00:00 PATY, MARCO [id number] [facility] 2020-09-11 2020-09-11 Outpatient MARCO CISNEROS [facility] [id number] Univers 15:00:00 15:00:00 MARCO NEWMAN [facility] 2020-08-19 2020-08-19 Emergency X IKANNA [facility] ERT [id number] Univers 09:20:00 09:20:00 IVAN [facility] 2020-05-23 2020-05-23 [facility] [id number] [place] 00:00:00 00:00:00 DANE 462 Method i 2020-05-23 2020-05-23 Outpatient [facility], [facility] [id number] [address] [place] 00:00:00 00:00:00 DANE 770 Method i 2019-12-02 2019-12-02 Outpatient JANIS SanchezTO [facility] [id number] [facility] 12:15:00 12:15:[id number] [place] [address] [facility] Results Test Description Test Time Test Comments Results Result [facility] e Comments - MRI L-SPINE W/O 2019-12-05 Patient Name: CONT 13:16:00 ANDI SMILEY Unit No: [id number] EXAMS: CPT CODE: [id number] MRI L-SPINE W/O CONT [id number] TECHNIQUE: Multiplanar, multisequence MRI examination performed of [...] Reported and signed by: Bartolo Brumfield M.D. [facility] NAME: ANDI SMILEY [address] [facility] PHYS: Lobo Villalba MD : 1935 AGE: 84 SEX: F [place], [place] [address] LOC: Y.MRI PHONE #: [phone] EXAM DATE: 12/02/2019 STATUS: DEP CLI FAX #: [phone] RAD #: D/C DT PAGE 1 Signed Report (CONTINUED) Patient Name: ANDI SMILEY Unit No: [id number] EXAMS: CPT CODE: [id number] MRI L-SPINE W/O CONT [id number] <Continued> CC: Richi Sanchez M.D. Technologist: AMRIK FORD, MRI Transcribed D/ (1316) SilvanoSLJ [facility] NAME: ANDI SMILEY [address] [facility] PHYS: Lobo Villalba MD : 1935 AGE: 84 SEX: F [place] [address] LOC: Y.MRI PHONE #: [phone] EXAM DATE: 12/02/2019 STATUS: DEP CLI FAX #: [phone] RAD #: D/C DT PAGE 2 Signed Report Patient Name: ANDI SMILEY Unit No: [id number] EXAMS: CPT CODE: [id number] MRI L-SPINE W/O CONT [id number] <Continued> Orig Print D/T: S: 12/05/2019 (4450) [facility] NAME: ANDI SMILEY [address] [place] [address] PHYS: Lobo Villalba MD : 1935 AGE: 84 SEX: F [place] [address] LOC: Y.MRI PHONE #: [phone] EXAM DATE: 12/02/2019 STATUS: DEP CLI FAX #: [phone] RAD #: D/C DT PAGE 3 Signed Report
[2021-11-04] MEDS ORDERED: ACETAMINOPHEN 500 MG TAB ONE (22:02)
[2021-11-04] MEDS ORDERED: LIDOCAINE 1% MPF 5 ML VIAL ONE (22:02)
[2021-11-04] MEDS ORDERED: TETANUS & DIPHTHERIA TOX,ADULT 0.5 ML VIAL ONE (22:02)
--- NOTE | 2021-11-04 22:23 | RAD REPORT ---
EXAM DESCRIPTION: CT - Head Brain Wo Cont - 11/04/2021 9:29 pm CLINICAL HISTORY: PAIN, fall right-sided head pain COMPARISON: Head Brain Wo Cont dated 12/07/2020 TECHNIQUE: Axial 5 mm thick images of the head were obtained without IV contrast. All CT scans are performed using dose optimization technique as appropriate and may include automated exposure control or mA/KV adjustment according to patient size. FINDINGS: No intracranial hemorrhage, mass, edema or shift of mid-line structures. Hyperdense artifa cts are seen along the inner table of the skull superimposed on the trach bright. This is not to mahnaz ical contusion. No acute cortical based infarction. Mild atrophy and chronic ischemic change matches comparison. No abnormal extra-axial fluid collections. Ventricles are normal. Mastoid air cells and visualized portions of the paranasal sinuses are clear. No acute bony findings. IMPRESSION: Negative non-contrast CT head examination for acute intracranial finding. Above detailed findings are similar to November 2020 imaging.
[2021-11-04] MEDS ORDERED: LIDOCAINE JELLY 2%- 5 ML TUBE ONE (23:32)
--- NOTE | 2021-11-05 00:09 | ER ---
Nurse's Notes [facility] Name: Scarlett Garrett Age: 86 yrs Sex: Female : 1935 Arrival Date: 11/04/2021 Time: 20:48 Bed 16 Private MD: Diagnosis: Laceration without foreign body of scalp Presentation: 11/04 21:06 Chief complaint: Patient states: I tripped over my cat this evening and I fell and hit ld1 my head. Laceration noted to back of head. Pt reports taking eliquis daily. Care prior to arrival: None. Mechanism of Injury:. Trauma event details: Injury occurred in the [facility], Injury occurred: at home. 21:06 Acuity: VANESA 3 ld1 21:06 Method Of Arrival: Ambulatory ld1 21:12 Coronavirus screen: At this time, the client does not indicate any symptoms associated ld1 with coronavirus-19. Ebola Screen: No symptoms or risks identified at this time. Initial Sepsis Screen: Does the patient meet any 2 criteria? No. Patient's initial sepsis screen is negative. Does the patient have a suspected source of infection? No. Patient's initial sepsis screen is negative. Risk Assessment: Do you want to hurt yourself or someone else? Patient reports no desire to harm self or others. Onset of symptoms was November 04, 2021. Triage Assessment: 21:12 General: Appears in no apparent distress. comfortable, Behavior is calm, cooperative, ld1 appropriate for age. Neuro: Level of Consciousness is awake, alert, obeys commands, Oriented to person, place, time, situation. Respiratory: Airway is patent Respiratory effort is even, unlabored, Respiratory pattern is regular, symmetrical. Trauma Activation: Alert Physician: ED Physician; Name: ; Notified At: ; Arrived At: Physician: General Surgeon; Name: ; Notified At: ; Arrived At: Physician: Radiology; Name: ; Notified At: ; Arrived At: Physician: Respiratory; Name: ; Notified At: ; Arrived At: Physician: Lab; Name: ; Notified At: ; Arrived At: Historical: - Allergies: 21:12 Cipro; ld1 21:12 Levaquin; ld1 - Home Meds: 21:12 areds daily [Active]; ld1 - PMHx: 21:12 Arthritis; Atrial Fib; Depression; Hypertension; Hypothyroidism; mitral valve; severe ld1 tricuspid valve regurgitation; - Immunization history: Last tetanus immunization: - up to date. - Social history:: Smoking status: Patient denies any tobacco usage or history of. Patient/guardian denies using alcohol. Screenin:09 Abuse screen: Denies threats or abuse. Denies injuries from another. Tuberculosis ld1 screening: No symptoms or risk factors identified. 22:00 Fall Risk Fall in past 12 months (25 points). IV access (20 points). Ambulatory Aid- vc1 Crutches/Cane/Walker (15 pts). 22:00 Nutritional screening: No deficits noted. vc1 Primary Survey: 21:09 NO uncontrolled hemorrhage observed. A: The patient is alert. Breathing/Chest: ld1 Respiratory pattern: regular, Respiratory effort: spontaneous. Circulation: Cardiac rhythm: sinus rhythm. Disability Alert. Exposure/Environment: All clothing and personal items were removed. Forensic evidence collection is not deemed to be indicated at this time. Items placed in patient belonging bag. There is no evidence of uncontrolled external bleeding. Reassessment Airway Airway Patent Breathing/Chest Respiratory pattern Regular Respiratory effort Spontaneous Circulation Heart rhythm Sinus rhythm Disability Alert. Assessment: 21:09 General: Appears in no apparent distress. comfortable, Behavior is calm, cooperative, ld1 appropriate for age. Pain: Complains of pain in scalp Pain does not radiate. Pain currently is 7 out of 10 on a pain scale. Quality of pain is described as throbbing, Pain began suddenly, Is continuous. Neuro: Level of Consciousness is awake, alert, obeys commands, Oriented to person, place, time, situation, Appropriate for age. Respiratory: Airway is patent Respiratory effort is even, unlabored, Respiratory pattern is regular, symmetrical. Injury Description: Laceration sustained to occipital area. 22:00 Reassessment: No changes from previously documented assessment. Patient and/or family vc1 updated on plan of care and expected duration. Pain level reassessed. Patient is alert, oriented x 3, equal unlabored respirations, skin warm/dry/pink. 23:00 Reassessment: Patient and/or family updated on plan of care and expected duration. Pain vc1 level reassessed. Patient is alert, oriented x 3, equal unlabored respirations, skin warm/dry/pink. Patient states symptoms have improved. 11/05 00:00 Derm: Wound noted occipital area. vc1 Vital Signs: 11/04 21:09 BP 133 / 69; Pulse 71; Resp 18; Temp 98.1(TE); Pulse Ox 96% on R/A; Weight 68.04 kg; ld1 Height 5 ft. 9 in. (175.26 cm); Pain 7/10; 21:09 Body Mass Index 22.15 (68.04 kg, 175.26 cm) ld1 Geovanni Coma Score: 21:09 Eye Response: spontaneous(4). Verbal Response: oriented(5). Motor Response: obeys ld1 commands(6). Total: 15. Trauma Score (Adult): 21:09 Eye Response: spontaneous(1); Verbal Response: oriented(1); Motor Response: obeys ld1 commands(2); Systolic BP: 50 to 75 mm Hg(2); Respiratory Rate: 10 to 29 per min(4); Homer Score: 15; Trauma Score: 10 ED Course: 20:48 Patient arrived in ED. ja2 21:08 Triage completed. ld1 21:09 Patient has correct armband on for positive identification. Placed in gown. Bed in low ld1 position. Call light in reach. Side rails up X2. 21:09 Patient maintains SpO2 saturation greater than 95% on room air. ld1 21:12 Arm band placed on right wrist. ld1 21:17 Gayle Burkett FNP-C is [facility]. kb 21:17 Yuval Faith MD is Attending Physician. kb 21:31 CT Head Brain wo Cont In Process Unspecified. EDMS 21:43 Noy Crowell, RN is Primary Nurse. vc1 22:00 Thermoregulation: warm blanket given to patient. vc1 11/05 00:25 Assist provider with laceration repair on right parietal area that was 2.5 cm. or less vc1 using marcelino. Set up tray. Performed by Gayle WHITE Patient tolerated well. Patient did not have IV access during this emergency room visit. Administered Medications: 11/04 22:42 Drug: Tetanus-Diphtheria Toxoid Adult 0.5 ml {Information Services Tech: [employer]. Exp: ld1 03/08/2023. Lot #: [id number]. } Route: IM; Site: right deltoid; 23:13 Follow up: Response: No adverse reaction ld1 22:42 Drug: Tylenol 1000 mg Route: PO; ld1 23:13 Follow up: Response: No adverse reaction ld1 23:40 Drug: Lidocaine Gel 2 % 1 application Route: Mucous Membrane; ld1 Intake: 22:00 PO: 240ml (Water); Total: 240ml. vc1 Outcome: 11/05 00:08 Discharge ordered by . antionette 00:25 Patient's length of stay in the Emergency Department was greater than 2 hours. vc1 Patient's length of stay was extended due to staffing issues within the emergency department. 00:26 Discharged to home ambulatory, with family. vc1 00:26 Condition: good 00:26 Discharge instructions given to patient, family, Instructed on discharge instructions, follow up and referral plans. wound care, Demonstrated understanding of instructions, follow-up care, wound care. 00:27 Patient left the ED. vc1 Signatures: Dispatcher [employer] EDNY Gayle Burkett, MASKING MACHINE FEEDER-C MARITO-Nuzhat Quigley RN RN ld1 Margarita Monreal Vanessa, RN RN vc1
--- NOTE | 2021-11-05 00:10 | EDPHYS ---
Physician Documentation [facility] Name: Scarlett Garrett Age: 86 yrs Sex: Female : 1935 Arrival Date: 11/04/2021 Time: 20:48 Bed 16 Private MD: ED Physician Yuval Faith HPI: 11/04 22:00 This 86 yrs old Female presents to ER via Ambulatory with complaints of Fall Injury, kb Head Injury-Adult. 22:00 Details of fall: The patient fell from an upright position, while standing. Onset: The kb symptoms/episode began/occurred just prior to arrival. Associated injuries: The patient sustained injury to the head, laceration, 2 cm(s). Severity of symptoms: At their worst the symptoms were mild, in the emergency department the symptoms are unchanged. The patient has not experienced similar symptoms in the past. The patient has not recently seen a physician. Pt states she stood up from chair and tripped over cat causing her to fall and hit back of head on a piece of furniture. Denies loc. Reports headache only.. Historical: - Allergies: 21:12 Cipro; ld1 21:12 Levaquin; ld1 - Home Meds: 21:12 areds daily [Active]; ld1 - PMHx: 21:12 Arthritis; Atrial Fib; Depression; Hypertension; Hypothyroidism; mitral valve; severe ld1 tricuspid valve regurgitation; - Immunization history: Last tetanus immunization: - up to date. - Social history:: Smoking status: Patient denies any tobacco usage or history of. Patient/guardian denies using alcohol. ROS: 22:00 Constitutional: Negative for fever, chills, and weight loss. kb 22:00 Skin: Positive for laceration(s), of the right parietal area. 22:00 All other systems are negative. Exam: 22:00 Constitutional: This is a well developed, well nourished patient who is awake, alert, kb and in no acute distress. Eyes: Pupils equal round and reactive to light, extra-ocular motions intact. Lids and lashes normal. Conjunctiva and sclera are non-icteric and not injected. Cornea within normal limits. Periorbital areas with no swelling, redness, or edema. ENT: Moist Mucous membranes Cardiovascular: Regular rate and rhythm with a normal S1 and S2. No gallops, murmurs, or rubs. No pulse deficits. Respiratory: Respirations even and unlabored. No increased work of breathing. Talking in full sentences MS/ Extremity: Pulses equal, no cyanosis. Neurovascular intact. Full, normal range of motion. Neuro: Awake and alert, GCS 15, oriented to person, place, time, and situation. Moves all extremities. Normal gait. Psych: Awake, alert, with orientation to person, place and time. Behavior, mood, and affect are within normal limits. 22:00 Head/face: Noted is no obvious of injury or deformity except hematoma, a laceration(s). 22:00 Skin: injury, laceration(s), the wound is approximately 2 cm(s), of the right parietal area, that can be described as clean, no foreign body, linear, without bleeding. Vital Signs: 21:09 BP 133 / 69; Pulse 71; Resp 18; Temp 98.1(TE); Pulse Ox 96% on R/A; Weight 68.04 kg; ld1 Height 5 ft. 9 in. (175.26 cm); Pain 7/10; 21:09 Body Mass Index 22.15 (68.04 kg, 175.26 cm) ld1 [place] Coma Score: 21:09 Eye Response: spontaneous(4). Verbal Response: oriented(5). Motor Response: obeys ld1 commands(6). Total: 15. Trauma Score (Adult): 21:09 Eye Response: spontaneous(1); Verbal Response: oriented(1); Motor Response: obeys ld1 commands(2); Systolic BP: 50 to 75 mm Hg(2); Respiratory Rate: 10 to 29 per min(4); Geovanni Score: 15; Trauma Score: 10 Laceration: 11/05 00:08 Wound Repair of 3cm ( 1.2in ) subcutaneous laceration to right parietal area. Linear kb shaped.. Distal neuro/vascular/tendon intact. Anesthesia: Topical anesthetic administered with 1% lidocaine. Wound prep: Extensive cleansing with hibiclenz by nurse, Wound irrigation with saline by nurse. Skin closed with 3 1-0 [place] using staple gun. Patient tolerated well. MDM: 11/04 21:17 Patient medically screened. kb 22:02 Data reviewed: vital signs, nurses notes. Data interpreted: Pulse oximetry: on room air kb is 96 %. Interpretation: normal. 11/05 00:08 Counseling: I had a detailed discussion with the patient and/or guardian regarding: the kb historical points, exam findings, and any diagnostic results supporting the discharge/admit diagnosis, radiology results, the need for outpatient follow up, a family practitioner, to return to the emergency department if symptoms worsen or persist or if there are any questions or concerns that arise at home. 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 Exp: ld1 03/08/2023. Lot #: [id number]. } Route: IM; Site: right deltoid; 23:13 Follow up: Response: No adverse reaction ld1 22:42 Drug: Tylenol 1000 mg Route: PO; ld1 23:13 Follow up: Response: No adverse reaction ld1 23:40 Drug: Lidocaine Gel 2 % 1 application Route: Mucous Membrane; ld1 Disposition: 11/05 01:49 Co-signature as Attending Physician, Yuval Faith MD. [email or web address] Disposition Summary: 11/05/21 00:08 Discharge Ordered Location: Home kb Condition: Stable kb Diagnosis - Laceration without foreign body of scalp kb Followup: kb - With: Emergency Department - When: As needed - Reason: Worsening of condition Followup: kb - With: Private Physician - When: 2 - 3 days - Reason: Recheck today's complaints, Continuance of care, Re-evaluation by your physician Discharge Instructions: - Discharge Summary Sheet kb - Laceration Care, Adult, [id number] kb Forms: - Medication Reconciliation Form kb - Thank You Letter kb - Antibiotic Education kb - Prescription Opioid Use kb Signatures: Dispatcher [employer] Gayle Hagen, [facility]-Yuval Dennis MD MD pkNuzhat Wilson, LEE ANN RN ld1
[2021-11-05 01:54] VITALS: BP 133/69; TEMP 98.1; O2SAT 96
== END 2021-11-05 00:27 | disposition home or self-care (01) ==
LOC: ER 20:44
PROC: 0JQ00ZZ Repair Scalp Subcutaneous Tissue and Fascia, Open Approach (ICD-10-PCS; principal; 2021-11-05)
DX: S01.01XA Laceration without foreign body of scalp, initial encounter (principal); W01.190A Fall on same level from slipping, tripping and stumbling with subsequent striking against furniture, initial encounter; Z23 Encounter for immunization; Z88.1 Allergy status to other antibiotic agents; I10 Essential (primary) hypertension
CPT/HCPCS: 70450; 90471; 90714; 99284

== ENCOUNTER 2021-11-11 15:56 | Emergency (ER) | payer OTHER ==
--- OUTSIDE RECORDS SUMMARY | 2021-11-11 15:59 | XMS REPORT | Continuity of Care Document ---
:1935 Author Organization [facility] t Address [address] [place] [address] Care Team Providers Name Role Phone KATHY NEWMAN Attending Clinician Unavailable KATHY NEWMAN Attending Clinician Unavailable Kathy Newman MD Attending Clinician MADELYN Attending Clinician Unavailable Rika HUTCHISON Attending Clinician Unavailable MARIAN Attending Clinician Unavailable Samuel Sanchez Attending Clinician Unavailable Payers Payer Name Policy Type Policy Number Effective Date Expiration Date [facility] [id number] 2020 [facility] 00:00:00 PPO Problems This patient has no known problems. Allergies, Adverse Reactions, Alerts Allergy Allergy Status Severity Reaction(s) Onset Inactive Treating Comm ents Source Name Type Date Date Clinician CIPROFLO DRUG Active Rash 2019-10 [facility]-19 ity of 00:00: [address] Branch levoflox DA Active [place] [facility] acin 03-07 [place] 00:00: [facility] [place] RASH [facility] acin 03-07 [place] 00:00: Orthope [facility] Medications This patient has no known medications. Procedures This patient has no known procedures. Encounters Start End Encounter Admission Attending Care Care Encounter Source Date/Time Date/Time Type Type Clinicians Facility Department ID 2021-02-08 2021-02-08 Outpatient MARCO CISNEROS [facility] [id number] Univers 15:00:00 15:00:00 MARCO NEWMAN [id number] [facility] 2021-02-08 2021-02-08 Outpatient MARCO CISNEROS [facility] [id number] Univers 15:00:00 15:00:00 MARCO NEWMAN [facility] 2020-12-20 2020-12-20 Outpatient MARCO CISNEROS [facility] [id number] Univers 10:00:00 10:00:00 PATYMARCO BRAGA [id number] [facility] 2020-12-20 2020-12-20 Outpatient MARCO CISNEROS [facility] [id number] Univers 00:00:00 00:00:00 MARCO NEWMAN [facility] 2020-11-24 2020-11-24 Outpatient [facility] [id number] [address] [place] [address] 00:00:00 00:00:00 073 Method i 2020-11-13 2020-11-13 Telephone Paty [facility] [id number] 00:00:00 00:00:00 Marco Gao [id number] [place] [id number] Professio [phone] nal 2 [facility] 2020-11-03 2020-11-03 Outpatient [facility] [id number] [address] [place] [address] 00:00:00 00:00:00 336 Method i 2020-11-02 2020-11-02 Office Paty, [facility] [id number] 14:12:48 16:16:50 Visit Marco Gao [id number] [place] [id number] Professio [phone] nal 092 [facility] 2020-11-02 2020-11-02 Outpatient MARCO CISNEROS [facility] [id number] Univers 14:20:00 14:20:00 MARCO NEWMAN [id number] [facility] 2020-11-02 2020-11-02 Outpatient R [facility] [id number] Univers 14:20:00 14:20:00 [facility] 2020-10-24 2020-10-24 Outpatient Marlon JOSHI [facility] [id number] Univers 11:00:00 11:00:00 RONAN [id number] [facility] 2020-10-24 2020-10-24 Outpatient Marlon JOSHI [facility] [id number] Univers 11:00:00 11:00:00 RONAN [facility]mark [facility] 2020-09-11 2020-09-11 Outpatient MARCO CISNEROS [facility] [id number] Univers 15:00:00 15:00:00 PATY, MARCO [id number] [facility] 2020-09-11 2020-09-11 Outpatient MARCO CISNEROS [facility] [id number] Univers 15:00:00 15:00:00 MARCO NEWMAN [facility] 2020-08-19 2020-08-19 Emergency X KIANNA [facility] ERT [id number] Univers 09:20:00 09:20:00 IVAN [facility] 2020-05-23 2020-05-23 [facility] [id number] [place] 00:00:00 00:00:00 DANE 462 Method i 2020-05-23 2020-05-[address] [facility], [facility] [id number] 150 [place] 00:00:00 00:00:00 DANE 770 Method i 2019-12-02 2019-12-02 Outpatient JANIS SanchezTO [facility] [id number] [facility] 12:15:00 12:15:[id number] [place] [address] [facility] Results Test Description Test Time Test Comments Results Result [facility] e Comments - MRI L-SPINE W/O 2019-12-05 Patient Name: CONT 13:16:00 ANDI SMILEY Unit No: [id number] EXAMS: CPT CODE: [id number] MRI L-SPINE W/O CONT [id number] TECHNIQUE: Multiplanar, multisequence MRI examination performed of [...] Bartolo Brumfield M.D. [facility] NAME: ANDI SMILEY [address] [facility] PHYS: Lobo Villalba MD : 1935 AGE: 84 SEX: F [place], [place] [address] LOC: Y.MRI PHONE #: [phone] EXAM DATE: 12/02/2019 STATUS: DEP CLI FAX #: [phone] RAD #: D/C DT PAGE 1 Signed Report (CONTINUED) Patient Name: ANDI SMILEY Unit No: [id number] EXAMS: CPT CODE: [id number] MRI L-SPINE W/O CONT [id number] <Continued> CC: Richi Sanchez M.D. Technologist: AMRIK FORD, MRI Transcribed D/ (1316) SilvanoSLJ [facility] NAME: ANDI SMILEY [address] [facility] PHYS: Lobo Villalba MD : 1935 AGE: 84 SEX: F [place] [address] LOC: Y.MRI PHONE #: [phone] EXAM DATE: 12/02/2019 STATUS: DEP CLI FAX #: [phone] RAD #: D/C DT PAGE 2 Signed Report Patient Name: ANDI SMILEY Unit No: [id number] EXAMS: CPT CODE: [id number] MRI L-SPINE W/O CONT [id number] <Continued> Orig Print D/T: S: 12/05/2019 (2340) [facility] NAME: ANDI SMILEY [address] [place] [address] PHYS: Lobo Villalba MD : 1935 AGE: 84 SEX: F [place] [address] LOC: Y.MRI PHONE #: [phone] EXAM DATE: 12/02/2019 STATUS: DEP CLI FAX #: [phone] RAD #: D/C DT PAGE 3 Signed Report
--- NOTE | 2021-11-11 16:35 | EDPHYS ---
Physician Documentation [facility] Name: Scarlett Garrett Age: 86 yrs Sex: Female : 1935 Arrival Date: 11/11/2021 Time: 15:59 Bed Waiting Private MD: ED Physician Anton Cha HPI: 11/11 16:35 This 86 yrs old Female presents to ER via Ambulatory with complaints of Staple Removal. jr8 16:35 The patient has marcelino on the scalp. Previous treatment: The patient was initially jr8 treated 7 day(s) ago. Sutures/marcelino progress: The patient has no c/o's. The wound is well-healing with no redness, swelling, discharge, or dehiscence reported. The patient has not experienced similar symptoms in the past. The patient has not recently seen a physician. came to ED today for marcelino to be removed . Historical: - Allergies: 16:22 Cipro; jd3 16:22 Levaquin; jd3 - PMHx: 16:22 Arthritis; Atrial Fib; Depression; Hypertension; Hypothyroidism; mitral valve; severe jd3 tricuspid valve regurgitation; - Immunization history:: Adult Immunizations up to date, Client reports receiving the 2nd dose of the Covid vaccine, Flu vaccine is up to date. - Social history:: Smoking status: Patient denies any tobacco usage or history of. ROS: 16:35 Eyes: Negative for injury, pain, redness, and discharge, ENT: Negative for injury, jr8 pain, and discharge, Neck: Negative for injury, pain, and swelling, Cardiovascular: Negative for chest pain, palpitations, and edema, Respiratory: Negative for shortness of breath, cough, wheezing, and pleuritic chest pain, Abdomen/GI: Negative for abdominal pain, nausea, vomiting, diarrhea, and constipation, Back: Negative for injury and pain, MS/Extremity: Negative for injury and deformity, Skin: Negative for injury, rash, and discoloration, Neuro: Negative for headache, weakness, numbness, tingling, and seizure. Exam: 16:35 Constitutional: This is a well developed, well nourished patient who is awake, alert, jr8 and in no acute distress. Cardiovascular: Regular rate and rhythm with a normal S1 and S2. No gallops, murmurs, or rubs. Normal PMI, no JVD. No pulse deficits. Respiratory: Lungs have equal breath sounds bilaterally, clear to auscultation and percussion. No rales, rhonchi or wheezes noted. No increased work of breathing, no retractions or nasal flaring. MS/ Extremity: Pulses equal, no cyanosis. Neurovascular intact. Full, normal range of motion. Neuro: Awake and alert, GCS 15, oriented to person, place, time, and situation. Motor strength 5/5 in all extremities. Sensory grossly intact. 16:35 Skin: Wound recheck: Staple laceration closure: the wound is healing well, the edges are well approximated, no evidence of dehiscence, no drainage, no erythema, no swelling. Vital Signs: 16:23 BP 174 / 95; Pulse 72; Resp 17 S; Temp 97.3(TE); Pulse Ox 100% on R/A; Weight 68.04 kg jd3 (R); Height 5 ft. 9 in. (175.26 cm) (R); Pain 0/10; 16:23 Body Mass Index 22.15 (68.04 kg, 175.26 cm) jd3 Procedures: 16:35 Suture/Staple removal: Removed 3 marcelino, from scalp, site appears well healed, Patient jr8 tolerated well. MDM: 16:34 Patient medically screened. jr8 16:35 Data reviewed: vital signs, nurses notes, and as a result, I will discharge patient. jr8 Data interpreted: Pulse oximetry: on room air is 100 %. Interpretation: normal. Counseling: I had a detailed discussion with the patient and/or guardian regarding: the historical points, exam findings, and any diagnostic results supporting the discharge/admit diagnosis, the need for outpatient follow up, a family practitioner, to return to the emergency department if symptoms worsen or persist or if there are any questions or concerns that arise at home. Administered Medications: No medications were administered Disposition: 19:03 Co-signature as Attending Physician, Anton Cha MD I agree with the assessment and kdr plan of care. Disposition Summary: 11/11/21 16:34 Discharge Ordered Location: Home jr8 Problem: new jr8 Symptoms: have improved jr8 Condition: Stable jr8 Diagnosis - Encounter for removal of sutures - marcelino jr8 Followup: jr8 - With: Private Physician - When: As needed - Reason: Wound Recheck, Recheck today's complaints, Re-evaluation by your physician Discharge Instructions: - Discharge Summary Sheet jr8 - Sutures, [place], or Adhesive Wound Closure jr8 Forms: - Medication Reconciliation Form jr8 - Thank You Letter jr8 - Antibiotic Education jr8 - Prescription Opioid Use jr8 Signatures: Anton Cha MD MD kdr Roszak, Josh, PA PA jr8 Calderon Russell RN RN jd3
--- NOTE | 2021-11-11 16:35 | ER ---
Nurse's Notes [facility] Name: Scarlett Garrett Age: 86 yrs Sex: Female : 1935 Arrival Date: 11/11/2021 Time: 15:59 Bed Waiting Private MD: Diagnosis: Encounter for removal of sutures-marcelino Presentation: 11/11 16:22 Chief complaint: Patient states: "I am here to get the marcelino removed from my head.". jd3 Coronavirus screen: At this time, the client does not indicate any symptoms associated with coronavirus-19. Ebola Screen: No symptoms or risks identified at this time. Initial Sepsis Screen: Does the patient meet any 2 criteria? No. Patient's initial sepsis screen is negative. Does the patient have a suspected source of infection? No. Patient's initial sepsis screen is negative. Risk Assessment: Do you want to hurt yourself or someone else? Patient reports no desire to harm self or others. Onset of symptoms was November 11, 2021. 16:22 Method Of Arrival: Ambulatory jd3 16:22 Acuity: VANESA 5 jd3 Historical: - Allergies: 16:22 Cipro; jd3 16:22 Levaquin; jd3 - PMHx: 16:22 Arthritis; Atrial Fib; Depression; Hypertension; Hypothyroidism; mitral valve; severe jd3 tricuspid valve regurgitation; - Immunization history:: Adult Immunizations up to date, Client reports receiving the 2nd dose of the Covid vaccine, Flu vaccine is up to date. - Social history:: Smoking status: Patient denies any tobacco usage or history of. Screenin:34 Abuse screen: Denies threats or abuse. Nutritional screening: No deficits noted. jd3 Tuberculosis screening: No symptoms or risk factors identified. Fall Risk Ambulatory Aid- None/Bed Rest/Nurse Assist (0 pts). Gait- Normal/Bed Rest/Wheelchair (0 pts) Mental Status- Oriented to own ability (0 pts). Total Bolanos Fall Scale indicates No Risk (0-24 pts). Assessment: 16:33 General: Appears in no apparent distress. comfortable, Behavior is calm, cooperative, jd3 appropriate for age. Pain: Denies pain. Neuro: Level of Consciousness is awake, alert, obeys commands, Oriented to person, place, time, situation. Cardiovascular: Denies chest pain, Capillary refill < 3 seconds Patient's skin is warm and dry. Respiratory: Airway is patent Respiratory effort is even, unlabored, Respiratory pattern is regular, symmetrical, Denies cough, shortness of breath. GI: No signs and/or symptoms were reported involving the gastrointestinal system. : No signs and/or symptoms were reported regarding the genitourinary system. EENT: No signs and/or symptoms were reported regarding the EENT system. Derm: Skin is intact, Skin is dry, Skin is normal, Skin temperature is warm marcelino noted to the back right side of head. healing wound noted with scab. Musculoskeletal: No signs and/or symptoms reported regarding the musculoskeletal system. Vital Signs: 16:23 BP 174 / 95; Pulse 72; Resp 17 S; Temp 97.3(TE); Pulse Ox 100% on R/A; Weight 68.04 kg jd3 (R); Height 5 ft. 9 in. (175.26 cm) (R); Pain 0/10; 16:23 Body Mass Index 22.15 (68.04 kg, 175.26 cm) jd3 ED Course: 15:59 Patient arrived in ED. mr 16:22 Triage completed. jd3 16:23 Arm band placed on. jd3 16:34 Jhon Salinas PA is PHCP. jr8 16:34 Anton Cha MD is Attending Physician. jr8 16:35 Patient has correct armband on for positive identification. Bed in low position. Call jd3 light in reach. Side rails up X 1. Pulse ox on. NIBP on. 16:35 No provider procedures requiring assistance completed. Patient did not have IV access jd3 during this emergency room visit. 16:37 Calderon Russell, RN is Primary Nurse. jd3 Administered Medications: No medications were administered Outcome: 16:34 Discharge ordered by . jr8 16:35 Discharged to home ambulatory. jd3 16:35 Condition: stable 16:35 Discharge instructions given to patient, Instructed on discharge instructions, follow up and referral plans. Demonstrated understanding of instructions, follow-up care. 16:37 Patient left the ED. jd3 Signatures: Scarlett Dunn mr Jhon Salinas PA PA jr8 Calderon Russell RN RN jd3
[2021-11-11 23:18] VITALS: BP 174/95; TEMP 97.3; O2SAT 100
== END 2021-11-11 16:37 | disposition home or self-care (01) ==
LOC: ER 15:56
DX: Z48.02 Encounter for removal of sutures (principal)
CPT/HCPCS: 99283

== ENCOUNTER 2022-01-08 16:15 | Emergency (ER) | payer OTHER ==
--- OUTSIDE RECORDS SUMMARY | 2022-01-08 16:18 | XMS REPORT | Continuity of Care Document ---
:1935 Author Organization [facility] t Address [address] [place] [address] Care Team Providers Name Role Phone KATHY NEWMAN Attending Clinician Unavailable KATHY NEWMAN Attending Clinician Unavailable Kathy Newman MD Attending Clinician MADELYN Attending Clinician Unavailable Rika HUTCHISON Attending Clinician Unavailable MARIAN Attending Clinician Unavailable Samuel Sanchez Attending Clinician Unavailable Payers Payer Name Policy Type Policy Number Effective Date Expiration Date [facility] [id number] 2020 [facility] 00:00:00 PPO Problems This patient has no known problems. Allergies, Adverse Reactions, Alerts Allergy Allergy Status Severity Reaction(s) Onset Inactive Treating Comm ents Source Name Type Date Date Clinician CIPROFLO DRUG Active Rash 2019-10 [facility] ity of 00:00: [address] Branch levoflox DA Active [place] [facility] acin 03-07 [place] 00:00: Orthope 00 dic Hospita l levoflox DA Active [place] RASH [facility] acin 03-07 [place] 00:00: Orthope 00 dic Hospita l Medications This patient has no known medications. Procedures This patient has no known procedures. Encounters Start End Encounter Admission Attending Care Care Encounter Source Date/Time Date/Time Type Type Clinicians Facility Department ID 2021-02-08 2021-02-08 Outpatient MARCO CISNEROS [facility] [id number] Univers 15:00:00 15:00:00 MARCO NEWMAN [id number] [facility] 2021-02-08 2021-02-08 Outpatient MARCO CISNEROS [facility] [id number] Univers 15:00:00 15:00:00 MARCO NEWMAN [facility] 2020-12-20 2020-12-20 Outpatient MARCO CISNEROS [facility] [id number] Univers 10:00:00 10:00:00 PATYMARCO BRAGA [id number] [facility] 2020-12-20 2020-12-20 Outpatient MARCO CISNEROS [facility] [id number] Univers 00:00:00 00:00:00 MARCO NEWMAN [facility] 2020-11-24 2020-11-24 Outpatient [facility] [id number] [address] [place] [address] 00:00:00 00:00:00 073 Method i 2020-11-13 2020-11-13 Telephone Paty [facility] [id number] 00:00:00 00:00:00 Marco Gao [id number] [place] [id number] Professio [phone] nal 2 [facility] 2020-11-03 2020-11-03 Outpatient [facility] [id number] [address] [place] [address] 00:00:00 00:00:00 336 Method i 2020-11-02 2020-11-02 Office Paty, [facility] [id number] 14:12:48 16:16:50 Visit Marco Gao [id number] [place] [id number] Professio [phone] nal 092 [facility] 2020-11-02 2020-11-02 Outpatient MARCO CISNEROS [facility] [id number] Univers 14:20:00 14:20:00 MARCO NEWMAN [id number] [facility] 2020-11-02 2020-11-02 Outpatient R [facility] [id number] Univers 14:20:00 14:20:00 [facility] 2020-10-24 2020-10-24 Outpatient Marlon JOSHI [facility] [id number] Univers 11:00:00 11:00:00 RONAN [id number] [facility] 2020-10-24 2020-10-24 Outpatient Marlon JOSHI [facility] [id number] Univers 11:00:00 11:00:00 RONAN [facility] 2020-09-11 2020-09-11 Outpatient MARCO CISNEROS [facility] [id number] Univers 15:00:00 15:00:00 PATY, MARCO [id number] [facility] 2020-09-11 2020-09-11 Outpatient MARCO CISNEROS [facility] [id number] Univers 15:00:00 15:00:00 MARCO NEWMAN [facility] 2020-08-19 2020-08-19 Emergency X KIANNA [facility] ERT [id number] Univers 09:20:00 09:20:00 IVAN [facility] 2020-05-23 2020-05-23 [facility] [id number] 643 [place] 00:00:00 00:00:00 DANE 462 Method i 2020-05-23 2020-05-23 Outpatient [facility], [facility] [id number] 150 [place] 00:00:00 00:00:00 DANE 770 Method i 2019-12-02 2019-12-02 Outpatient JANIS SanchezTO [facility] [id number] [id number] [facility] 12:15:00 12:15:[id number] [place] [address] [facility] Results Test Description Test Time Test Comments Results Result [facility] e Comments - MRI L-SPINE W/O 2019-12-05 Patient Name: CONT 13:16:00 ANDI SMILEY Unit No: [id number] EXAMS: CPT CODE: [id number] MRI L-SPINE W/O CONT [id number] TECHNIQUE: Multiplanar, multisequence MRI examination performed of [...] Reported and signed by: Bartolo Brumfield M.D. [facility] NAME: ANDI SMILEY [address] [facility] PHYS: Lobo Villalba MD : 1935 AGE: 84 SEX: F [place], [place] [address] LOC: Y.MRI PHONE #: [phone] EXAM DATE: 12/02/2019 STATUS: DEP CLI FAX #: [phone] RAD #: D/C DT PAGE 1 Signed Report (CONTINUED) Patient Name: ANDI SMILEY Unit No: [id number] EXAMS: CPT CODE: [id number] MRI L-SPINE W/O CONT [id number] <Continued> CC: Richi Sanchez M.D. Technologist: AMRIK FORD, MRI Transcribed D/ (1316) SilvanoSLJ [facility] NAME: ANDI SMILEY [address] [facility] PHYS: Lobo Villalba MD : 1935 AGE: 84 SEX: F [place] [address] LOC: Y.MRI PHONE #: [phone] EXAM DATE: 12/02/2019 STATUS: DEP CLI FAX #: [phone] RAD #: D/C DT PAGE 2 Signed Report Patient Name: ANDI SMILEY Unit No: [id number] EXAMS: CPT CODE: [id number] MRI L-SPINE W/O CONT [id number] <Continued> Orig Print D/T: S: 12/05/2019 (6800) [facility] NAME: ANDI SMILEY [address] [place] [address] PHYS: Lobo Villalba MD : 1935 AGE: 84 SEX: F [place] [address] LOC: Y.MRI PHONE #: [phone] EXAM DATE: 12/02/2019 STATUS: DEP CLI FAX #: [phone] RAD #: D/C DT PAGE 3 Signed Report
[2022-01-08 17:09] LABS: Absolute Lymphocytes (CBC) 1.1 K/uL (0.7-4.9); Hematocrit 34.1 % (36.0-45.0); Lymphocytes % 15.6 % (15.3-44.8); MPV 7.1 fL (7.6-11.3); RBC Red Blood Cell Count 3.35 M/uL (3.86-4.86)
--- NOTE | 2022-01-08 17:14 | RAD REPORT ---
EXAM DESCRIPTION: RAD - Chest Single View - 01/08/2022 5:07 pm CLINICAL HISTORY: CHEST PAIN COMPARISON: Portable 09/09/2021 TECHNIQUE: AP portable chest image was obtained 01/08/2022 5:07 pm . FINDINGS: No acute lung parenchymal process. No failure or volume overload. Chronic interstitial pat tern matches comparison. Trachea is midline. Heart and vasculature are normal. No measurable pleural effusion and no pneumotho rax. No acute bony abnormality seen. Prominent costochondral calcifications present. Scoliotic curvat ure is present at the thoracolumbar junction. No acute aortic findings suspected. IMPRESSION: No acute cardiopulmonary process. No significant change from comparison study.
[2022-01-08] MEDS ORDERED: NA CHLORIDE 0.9% 1,000 ML ONE (17:17)
[2022-01-08 17:44] LABS: BUN Blood Urea Nitrogen 8 mg/dL (7-18); Bicarbonate 24 mmol/L (21-32); Glucose Level 84 mg/dL (74-106); Magnesium 1.3 mg/dL (1.8-2.4); Potassium 3.7 mmol/L (3.5-5.1); Sodium Level 138 mmol/L (136-145)
[2022-01-08] MEDS ORDERED: Magnesium Sulfate 2gm IVPB 2 G/50 ML BAG IV ONE (18:09)
[2022-01-08] MEDS ORDERED: CALCIUM GLUCONATE 1 GM IVPB 1 GM/50 ML BAG IV ONE (18:09)
--- NOTE | 2022-01-08 20:41 | EDPHYS ---
Physician Documentation [facility] Name: Scarlett Garrett Age: 86 yrs Sex: Female : 1935 Arrival Date: 01/08/2022 Time: 16:20 Bed 15 Private MD: ED Physician Herbert Rodriges HPI: 01/08 17:01 This 86 yrs old Female presents to ER via EMS with complaints of palpitations. jr8 17:01 The patient presents with a history of irregular heart beat, heart racing. Context: The jr8 symptoms occur at rest. Onset: The symptoms/episode began/occurred acutely, today. Duration: The patient or guardian reports a single episode, that is still ongoing. Modifying factors: The symptoms are aggravated by nothing. The symptoms are alleviated by nothing. Associated signs and symptoms: The patient has no apparent associated signs or symptoms. Severity of symptoms: At their worst the symptoms were mild in the emergency department the symptoms are unchanged. The patient has experienced similar episodes in the past, chronically. The patient has not recently seen a physician. Patient with a history of atrial fibrillation. Currently on metoprolol, Benicar, Eliquis for her A. fib. Does not know she is chronically in it but has not had palpitation in over a year. Today started to feel a racing irregular heartbeat and noticed that her blood pressure was elevated. Came to emergency room for further evaluation at that time. Denies any other symptoms at this time.. Historical: - PMHx: 16:24 Arthritis; Atrial Fib; Depression; Hypertension; Hypothyroidism; mitral valve; severe cb5 tricuspid valve regurgitation; - Immunization history:: Adult Immunizations up to date. - Social history:: Smoking status: . ROS: 17:01 Eyes: Negative for injury, pain, redness, and discharge, ENT: Negative for injury, jr8 pain, and discharge, Neck: Negative for injury, pain, and swelling, Respiratory: Negative for shortness of breath, cough, wheezing, and pleuritic chest pain, Abdomen/GI: Negative for abdominal pain, nausea, vomiting, diarrhea, and constipation, Back: Negative for injury and pain, MS/Extremity: Negative for injury and deformity, Skin: Negative for injury, rash, and discoloration, Neuro: Negative for headache, weakness, numbness, tingling, and seizure. 17:01 Cardiovascular: Positive for palpitations, Negative for chest pain, edema, orthopnea, paroxysmal nocturnal dyspnea. Exam: 17:01 Constitutional: This is a well developed, well nourished patient who is awake, alert, jr8 and in no acute distress. Neck: Trachea midline, no thyromegaly or masses palpated, and no cervical lymphadenopathy. Supple, full range of motion without nuchal rigidity, or vertebral point tenderness. No Meningismus. Respiratory: Lungs have equal breath sounds bilaterally, clear to auscultation and percussion. No rales, rhonchi or wheezes noted. No increased work of breathing, no retractions or nasal flaring. Abdomen/GI: Soft, non-tender, with normal bowel sounds. No distension or tympany. No guarding or rebound. No evidence of tenderness throughout. Back: No spinal tenderness. No costovertebral tenderness. Full range of motion. Skin: Warm, dry with normal turgor. Normal color with no rashes, no lesions, and no evidence of cellulitis. MS/ Extremity: Pulses equal, no cyanosis. Neurovascular intact. Full, normal range of motion. Neuro: Awake and alert, GCS 15, oriented to person, place, time, and situation. Motor strength 5/5 in all extremities. Sensory grossly intact. 17:01 Cardiovascular: Rate: tachycardic, Rhythm: irregularly irregular, Pulses: Pulses are 2+ in right radial artery and left radial artery. Heart sounds: normal, normal S1and S2, Edema: is not appreciated, JVD: is not appreciated. Vital Signs: 16:21 BP 123 / 84; Pulse 94; Resp 16; Temp 98.4; Pulse Ox 98% ; Weight 70.31 kg; Height 5 ft. cb5 9 in. (175.26 cm); Pain 0/10; 20:16 BP 158 / 80; Pulse 63; Resp 17; Pulse Ox 100% on R/A; ke1 16:21 Body Mass Index 22.89 (70.31 kg, 175.26 cm) cb5 MDM: 16:24 Patient medically screened. jr8 20:30 Data reviewed: vital signs, nurses notes, lab test result(s), EKG, radiologic studies, jr8 plain films. Data interpreted: Pulse oximetry: on room air is 100 %. Interpretation: normal. Counseling: I had a detailed discussion with the patient and/or guardian regarding: the historical points, exam findings, and any diagnostic results supporting the discharge/admit diagnosis, lab results, radiology results, the need for outpatient follow up, a family practitioner, to return to the emergency department if symptoms worsen or persist or if there are any questions or concerns that arise at home. Response to treatment: the patient's symptoms have markedly improved after treatment. ED course: Heart rate back to sinus bradycardia and sinus rhythm. Correct electrolyte deficiencies and patient will follow up with cardiology in the next couple days. Knows to come back if she worsening point time.. 01/08 16:25 Order name: Basic Metabolic Panel; Complete Time: 17:48 01/08 16:25 Order name: CBC with Diff; Complete Time: 17:01/08 16:25 Order name: Magnesium; Complete Time: 17:48 01/08 16:25 Order name: Troponin HS; Complete Time: 17:48 01/08 16:25 Order name: XRAY Chest (1 view); Complete Time: 17:01/08 16:25 Order name: EKG; Complete Time: 16:25 01/08 16:25 Order name: Cardiac monitoring; Complete Time: 17:01/08 16:25 Order name: EKG - Nurse/Tech; Complete Time: 17:01/08 16:25 Order name: IV Saline Lock; Complete Time: 17:01/08 16:25 Order name: Labs collected and sent; Complete Time: 17:01/08 16:25 Order name: O2 Per Protocol; Complete Time: 17:01/08 16:25 Order name: O2 Sat Monitoring; Complete Time: 17: Administered Medications: 17:10 Drug: NS 0.9% 1000 ml Route: IV; Rate: 1000 ml; Site: left antecubital; cb5 17:55 Drug: Magnesium Sulfate 2 grams Route: IVPB; Infused Over: 2 hrs; Site: left cb5 antecubital; 19:13 Drug: Calcium Gluconate 1 grams Route: IVPB; Infused Over: 60 mins; Site: left ke1 antecubital; 20:30 Follow up: IV Status: Completed infusion ke1 Disposition Summary: 01/08/22 20:40 Discharge Ordered Location: Home jr8 Problem: new jr8 Symptoms: have improved jr8 Condition: Stable jr8 Diagnosis - Paroxysmal atrial fibrillation jr8 - Hypomagnesemia jr8 - Hypocalcemia jr8 Followup: jr8 - With: Private Physician - When: 1 - 2 days - Reason: Recheck today's complaints, Continuance of care, Re-evaluation by your physician Discharge Instructions: - Discharge Summary Sheet jr8 - Atrial Fibrillation jr8 - Hypomagnesemia jr8 - Hypocalcemia, Adult jr8 Forms: - Medication Reconciliation Form jr8 - Thank You Letter jr8 - Antibiotic Education jr8 - Prescription Opioid Use jr8 Addendum: 01/10/2022 06:57 Co-signature as Attending Physician, Herbert Rodriges MD. r n Signatures: Dispatcher [employer] EDMS Herbert Rodriges MD MD rn Roszak, Josh, PA PA jr8 Leslye Rutledge RN RN cb5 [place] RN RN ke1
--- NOTE | 2022-01-08 20:41 | ER ---
Nurse's Notes [facility] [place], [place] Name: Scarlett Garrett Age: 86 yrs Sex: Female : 1935 Arrival Date: 01/08/2022 Time: 16:20 Bed 15 Private MD: Diagnosis: Paroxysmal atrial fibrillation;Hypomagnesemia;Hypocalcemia Presentation: 01/08 16:21 Chief complaint: Patient states: pt stated she felt like she was in A-fib, felt heart cb5 palpatations. Coronavirus screen: Client denies travel out of the [place] in the last 14 days. Ebola Screen: Patient denies travel to an Ebola-affected area in the 21 days before illness onset. Initial Sepsis Screen: Does the patient meet any 2 criteria? No. Patient's initial sepsis screen is negative. Does the patient have a suspected source of infection? No. Patient's initial sepsis screen is negative. Risk Assessment: Do you want to hurt yourself or someone else? Patient reports no desire to harm self or others. 16:21 Method Of Arrival: EMS: [facility] cb5 16:21 Acuity: VANESA 3 cb5 Triage Assessment: 16:23 General: Appears in no apparent distress. comfortable, well groomed, Behavior is calm, cb5 cooperative, appropriate for age. Pain: Denies pain. Historical: - PMHx: 16:24 Arthritis; Atrial Fib; Depression; Hypertension; Hypothyroidism; mitral valve; severe cb5 tricuspid valve regurgitation; - Immunization history:: Adult Immunizations up to date. - Social history:: Smoking status: . Screenin:23 Abuse screen: Denies threats or abuse. Denies injuries from another. Nutritional cb5 screening: No deficits noted. Tuberculosis screening: No symptoms or risk factors identified. 16:24 Fall Risk None identified. cb5 Assessment: 16:20 General: Appears in no apparent distress. comfortable, Behavior is calm, cooperative, cb5 appropriate for age. Pain: Denies pain. Neuro: No deficits noted. Level of Consciousness is awake, alert, obeys commands, Oriented to person, place, time, situation, Appropriate for age. Cardiovascular: Rhythm is atrial fibrillation. Cardiovascular: Chest pain is denied. Respiratory: No deficits noted. GI: No deficits noted. : No deficits noted. EENT: No deficits noted. Derm: No deficits noted. Musculoskeletal: No deficits noted. Vital Signs: 16:21 BP 123 / 84; Pulse 94; Resp 16; Temp 98.4; Pulse Ox 98% ; Weight 70.31 kg; Height 5 ft. cb5 9 in. (175.26 cm); Pain 0/10; 20:16 BP 158 / 80; Pulse 63; Resp 17; Pulse Ox 100% on R/A; ke1 16:21 Body Mass Index 22.89 (70.31 kg, 175.26 cm) 5 ED Course: 16:20 Patient arrived in ED. cb5 16:20 Leslye Rutledge, RN is Primary Nurse. cb5 16:22 Jhon Salinas PA is PHCP. jr8 16:22 Herbert Rodriges MD is Attending Physician. jr8 16:23 Triage completed. cb5 16:23 Arm band placed on. EKG completed in triage. Results shown to MD. cb5 16:23 No provider procedures requiring assistance completed. cb5 16:24 Call light in reach. Side rails up X2. cb5 17:03 Basic Metabolic Panel Sent. cb5 17:03 CBC with Diff Sent. cb5 17:03 Magnesium Sent. cb5 17:03 Troponin HS Sent. cb5 17:09 XRAY Chest (1 view) In Process Unspecified. EDMS 19:26 Report given to Naina Tovar [facility] 20:52 IV discontinued. ke1 Administered Medications: 17:10 Drug: NS 0.9% 1000 ml Route: IV; Rate: 1000 ml; Site: left antecubital; cb5 17:55 Drug: Magnesium Sulfate 2 grams Route: IVPB; Infused Over: 2 hrs; Site: left cb5 antecubital; 19:13 Drug: Calcium Gluconate 1 grams Route: IVPB; Infused Over: 60 mins; Site: left ke1 antecubital; 20:30 Follow up: IV Status: Completed infusion ke1 Outcome: 20:40 Discharge ordered by MD. ceron 20:52 Discharged to home ambulatory. ke1 20:52 Condition: good 20:52 Discharge instructions given to patient. 20:53 Patient left the ED. ke1 Signatures: Dispatcher [employer] EDMS Jhon Salinas PA PA jr8 Leslye Rutledge RN RN [facility] [place] RN RN ke1 Corrections: (The following items were deleted from the chart) 19:24 19:18 Report given to LEE ANN Tovar
[2022-01-08 21:02] VITALS: TEMP 98.4
[2022-01-08 21:03] VITALS: BP 158/80; O2SAT 100
--- NOTE | 2022-01-09 07:44 | EKG ---
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
== END 2022-01-08 20:53 | disposition home or self-care (01) ==
LOC: ER 16:15
DX: I48.0 Paroxysmal atrial fibrillation (principal); E83.42 Hypomagnesemia; E83.51 Hypocalcemia; I10 Essential (primary) hypertension; E03.9 Hypothyroidism, unspecified; F32.A Depression, unspecified
CPT/HCPCS: 96365; 93005; 85025; 80048; 36415; 83735; 84484; 71045; 96375; 99284; J3475; J0610; J7030

== ENCOUNTER 2022-03-15 10:04 | Inpatient (IN) | payer OTHER ==
--- OUTSIDE RECORDS SUMMARY | 2022-03-15 10:07 | XMS REPORT | Continuity of Care Document ---
:1935 Author Organization [facility] t Address [address] [place] [address] Care Team Providers Name Role Phone KATHY NEWMAN Attending Clinician Unavailable KATHY NEWMAN Attending Clinician Unavailable Kathy Newman MD Attending Clinician MADELYN Attending Clinician Unavailable Rika HUTCHISON Attending Clinician Unavailable MARIAN Attending Clinician Unavailable Samuel Sanchez Attending Clinician Unavailable Payers Payer Name Policy Type Policy Number Effective Date Expiration Date [facility] [id number] 2020 [facility] 00:00:00 PPO Problems This patient has no known problems. Allergies, Adverse Reactions, Alerts Allergy Allergy Status Severity Reaction(s) Onset Inactive Treating Comm ents Source Name Type Date Date Clinician CIPROFLO DRUG Active Rash 2019-10 [facility] 00:[facility]: [address] [place] levoflox DA Active [facility] acin 03-07 [place] 00:00: [facility] levoflox DA Active [facility] RASH [facility] acin 03-07 [place] 00:00: [facility] Medications This patient has no known medications. Procedures This patient has no known procedures. Encounters Start End Encounter Admission Attending Care Care Encounter Source Date/Time Date/Time Type Type Clinicians Facility Department ID 2021-02-08 2021-02-08 Outpatient MARCO CISNEROS [facility] [id number] Univers 15:00:00 15:00:00 MARCO NEWMAN [id number] [facility] 2021-02-08 2021-02-08 Outpatient MARCO CISNEROS [facility] [id number] Univers 15:00:00 15:00:00 MARCO NEWMAN [facility] 2020-12-20 2020-12-20 Outpatient MARCO CISNEROS [facility] [id number] Univers 10:00:00 10:00:00 PATYMARCO BRAGA [id number] [facility] 2020-12-20 2020-12-20 Outpatient MARCO CISNEROS [facility] [id number] Univers 00:00:00 00:00:00 MARCO NEWMAN [facility] 2020-11-24 2020-11-24 Outpatient [facility] [id number] [address] [place] [address] 00:00:00 00:00:00 073 Method i 2020-11-13 2020-11-13 Telephone Paty [facility] [id number] 00:00:00 00:00:00 Marco Gao [id number] [place] [id number] Professio [phone] nal 2 [facility] 2020-11-03 2020-11-03 Outpatient [facility] [id number] [address] [place] [address] 00:00:00 00:00:00 336 Method i 2020-11-02 2020-11-02 Office Paty, [facility] [id number] 14:12:48 16:16:50 Visit Marco Gao [id number] [place] [id number] Professio [phone] nal 092 [facility] 2020-11-02 2020-11-02 Outpatient MARCO CISNEROS [facility] [id number] Univers 14:20:00 14:20:00 MARCO NEWMAN [id number] [facility] 2020-11-02 2020-11-02 Outpatient R [facility] [id number] Univers 14:20:00 14:20:00 [facility] 2020-10-24 2020-10-24 Outpatient Marlon JOSHI [facility] [id number] Univers 11:00:00 11:00:00 RONAN [id number] [facility] 2020-10-24 2020-10-24 Outpatient Marlon JOSHI [facility] [id number] Univers 11:00:00 11:00:00 RONAN [facility] 2020-09-11 2020-09-11 Outpatient MARCO CISNEROS [facility] [id number] Univers 15:00:00 15:00:00 PATY, MARCO [id number] [facility] 2020-09-11 2020-09-11 Outpatient MARCO CISNEROS [facility] [id number] Univers 15:00:00 15:00:00 MARCO NEWMAN [facility] 2020-08-19 2020-08-19 Emergency X KIANNA [facility] ERT [id number] Univers 09:20:00 09:20:00 IVAN [facility] 2020-05-23 2020-05-23 [facility] [id number] 643 [place] 00:00:00 00:00:00 DANE 462 Method i 2020-05-23 2020-05-23 Outpatient [facility], [facility] [id number] 150 [place] 00:00:00 00:00:00 DANE 770 Method i 2019-12-02 2019-12-02 Outpatient [facility] [id number] [facility] 12:15:00 12:15:[id number] [place] [address] [facility] Results Test Description Test Time Test Comments Results Result [facility] e Comments - MRI L-SPINE W/O 2019-12-05 Patient Name: CONT 13:16:00 ANDI SMILEY Unit No: [id number] EXAMS: CPT CODE: [id number] MRI L-SPINE W/O CONT [id number] TECHNIQUE: Multiplanar, multisequence MRI examination performed of [...] Reported and signed by: Bartolo Brumfield M.D. [facility] NAME: ANDI SMILEY [address] [facility] PHYS: Lobo Villalba MD : 1935 AGE: 84 SEX: F [place], [place] [address] LOC: Y.MRI PHONE #: [phone] EXAM DATE: 12/02/2019 STATUS: DEP CLI FAX #: [phone] RAD #: D/C DT PAGE 1 Signed Report (CONTINUED) Patient Name: ANDI SMILEY Unit No: [id number] EXAMS: CPT CODE: [id number] MRI L-SPINE W/O CONT [id number] <Continued> CC: Richi Sanchez M.D. Technologist: AMRIK FORD, MRI Transcribed D/ (1316) SilvanoSLJ [facility] NAME: ANDI SMILEY [address] [facility] PHYS: Lobo Villalba MD : 1935 AGE: 84 SEX: F [place] [address] LOC: Y.MRI PHONE #: [phone] EXAM DATE: 12/02/2019 STATUS: DEP CLI FAX #: [phone] RAD #: D/C DT PAGE 2 Signed Report Patient Name: ANDI SMILEY Unit No: [id number] EXAMS: CPT CODE: [id number] MRI L-SPINE W/O CONT [id number] <Continued> Orig Print D/T: S: 12/05/2019 (5740) [facility] NAME: ANDI SMILEY [address] [place] [address] PHYS: Lobo Villalba MD : 1935 AGE: 84 SEX: F [place] [address] LOC: Y.MRI PHONE #: [phone] EXAM DATE: 12/02/2019 STATUS: DEP CLI FAX #: [phone] RAD #: D/C DT PAGE 3 Signed Report
[2022-03-15 10:32] LABS: Absolute Lymphocytes (CBC) 0.7 K/uL (0.7-4.9); Hematocrit 32.2 % (36.0-45.0); Lymphocytes % 9.3 % (15.3-44.8); MPV 7.5 fL (7.6-11.3); RBC Red Blood Cell Count 3.16 M/uL (3.86-4.86)
--- NOTE | 2022-03-15 10:52 | RAD REPORT ---
EXAM DESCRIPTION: Skip Single View03/15/2022 10:30 am CLINICAL HISTORY: Palpitations COMPARISON: December 2001 FINDINGS: The lungs appear clear of acute infiltrate. The heart is normal size IMPRESSION: No acute abnormalities displayed
[2022-03-15 11:18] LABS: Potassium 4.4 mmol/L (3.5-5.1); Troponin High Sensitivity 10.1 pg/mL (<58.9)
[2022-03-15] MEDS ORDERED: SOTALOL HCL 80 MG TAB ONE (14:05)
--- NOTE | 2022-03-15 14:37 | ER ---
Nurse's Notes [facility] Name: Scarlett Garrett Age: 86 yrs Sex: Female : 1935 Arrival Date: 03/15/2022 Time: 10:04 Bed 19 Private MD: Diagnosis: Weakness;Chronic atrial fibrillation-RVR Presentation: 03/15 10:04 Chief complaint: Patient states: Palpitations, recent dx with Anuradha, reports mild SOB jl7 and midsternal chest pressure. Coronavirus screen: At this time, the client does not indicate any symptoms associated with coronavirus-19. Ebola Screen: No symptoms or risks identified at this time. Initial Sepsis Screen: Does the patient meet any 2 criteria? No. Patient's initial sepsis screen is negative. Does the patient have a suspected source of infection? No. Patient's initial sepsis screen is negative. Risk Assessment: Do you want to hurt yourself or someone else? Patient reports no desire to harm self or others. Onset of symptoms is unknown. Care prior to arrival: IV initiated. 20 GA, in the left antecubital area. 10:04 Acuity: VANESA 2 jl7 10:04 Method Of Arrival: EMS: [facility] jl7 Triage Assessment: 10:07 General: Appears in no apparent distress. uncomfortable, Behavior is calm, cooperative, jl7 appropriate for age. Pain: Complains of pain in mid-sternal area Pain does not radiate. Pain currently is 3 out of 10 on a pain scale. Quality of pain is described as pressure, Pain began 2-3 days ago. Is continuous. 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 - Social history:: Smoking status: Patient denies any tobacco usage or history of. Screenin:20 Abuse screen: Denies threats or abuse. Nutritional screening: No deficits noted. jd3 Tuberculosis screening: No symptoms or risk factors identified. Fall Risk Ambulatory Aid- None/Bed Rest/Nurse Assist (0 pts). Gait- Normal/Bed Rest/Wheelchair (0 pts) Mental Status- Oriented to own ability (0 pts). Total Bolanos Fall Scale indicates No Risk (0-24 pts). Assessment: 10:19 General: Appears in no apparent distress. comfortable, Behavior is calm, cooperative, jd3 appropriate for age. Pain: Complains of pain in chest Quality of pain is described as heavy, pressure. Neuro: Krishnamurthy Agitation-Sedation Scale (RASS): 0 - Alert and Calm Level of Consciousness is awake, alert, obeys commands, Oriented to person, place, time, situation. Cardiovascular: Heart tones present Capillary refill < 3 seconds Patient's skin is warm and dry. Rhythm is atrial fibrillation. Respiratory: Reports shortness of breath on exertion Airway is patent Respiratory effort is even, unlabored, Respiratory pattern is regular, symmetrical, Breath sounds are clear bilaterally. Denies cough. GI: No signs and/or symptoms were reported involving the gastrointestinal system. : No signs and/or symptoms were reported regarding the genitourinary system. EENT: No signs and/or symptoms were reported regarding the EENT system. Derm: Skin is intact, Skin is dry, Skin is normal, Skin temperature is warm. Musculoskeletal: Circulation, motion, and sensation intact. Range of motion: intact in all extremities. 10:53 Reassessment: Patient appears in no apparent distress at this time. No changes from jd3 previously documented assessment. Patient and/or family updated on plan of care and expected duration. Pain level reassessed. Patient is alert, oriented x 3, equal unlabored respirations, skin warm/dry/pink. 12:08 Reassessment: Patient appears in no apparent distress at this time. No changes from jd3 previously documented assessment. Patient and/or family updated on plan of care and expected duration. Pain level reassessed. Patient is alert, oriented x 3, equal unlabored respirations, skin warm/dry/pink. 12:50 Reassessment: Patient appears in no apparent distress at this time. Patient and/or [facility] family updated on plan of care and expected duration. Pain level reassessed. Patient is alert, oriented x 3, equal unlabored respirations, skin warm/dry/pink. pt asking about when a decision will be made on plan of care. provider notified of pt's question. 16:13 Reassessment: Patient appears in no apparent distress at this time. Patient and/or jd3 family updated on plan of care and expected duration. Pain level reassessed. Patient is alert, oriented x 3, equal unlabored respirations, skin warm/dry/pink. awaiting admission. 17:52 Reassessment: Patient appears in no apparent distress at this time. Patient and/or jd3 family updated on plan of care and expected duration. Pain level reassessed. Patient is alert, oriented x 3, equal unlabored respirations, skin warm/dry/pink. awaiting admission. 18:37 Reassessment: Patient appears in no apparent distress at this time. Patient and/or jd3 family updated on plan of care and expected duration. Pain level reassessed. Patient is alert, oriented x 3, equal unlabored respirations, skin warm/dry/pink. awaiting admission. Vital Signs: 10:04 BP 133 / 94; Pulse 110; Resp 15; Temp 97.3; Pulse Ox 100% on R/A; Weight 76.66 kg; jl7 Height 5 ft. 9 in. (175.26 cm); Pain 3/10; 10:54 BP 128 / 99; Pulse 102; Resp 16 S; Pulse Ox 100% on R/A; jd3 12:08 BP 124 / 93; Pulse 109; Resp 18 S; Pulse Ox 97% on R/A; jd3 12:51 BP 112 / 91; Pulse 89; Resp 18 S; Pulse Ox 97% on R/A; jd3 16:13 BP 138 / 99; Pulse 94; Resp 17 S; Pulse Ox 98% on R/A; jd3 17:53 BP 130 / 93; Pulse 101; Resp 18 S; Pulse Ox 97% on R/A; jd3 18:37 BP 120 / 87; Pulse 101; Resp 15 S; Pulse Ox 97% on R/A; jd3 21:55 BP 121 / 82; Pulse 99; Resp 17; Pulse Ox 98% on R/A; kd3 10:04 Body Mass Index 24.96 (76.66 kg, 175.26 cm) 7 ED Course: 10:04 Patient arrived in ED. 7 10:06 Anton Cha MD is Attending Physician. kdr 10:07 Triage completed. jl7 10:07 Arm band placed on right wrist. jl7 10:08 Calderon Russell RN is Primary Nurse. jd3 10:20 Patient has correct armband on for positive identification. Placed in gown. Bed in low jd3 position. Call light in reach. Side rails up X2. Adult w/ patient. Client placed on continuous cardiac and pulse oximetry monitoring. NIBP monitoring applied. system developer associate manager on. Pulse ox on. NIBP on. 10:32 XRAY Chest (1 view) In Process Unspecified. EDMS 13:16 Maintain EMS IV. Dressing intact. Good blood return noted. Site clean \T\ dry. Gauge \T\ oscar 3 site: 20 G right AC. 13:17 ED physician to see patient. jd3 13:53 COVID swab sent to lab. mb7 14:35 Jaguar Rodriges MD is Hospitalizing Provider. kdr 17:04 Aron Valladares MD is Hospitalizing Provider. kdr 21:33 No provider procedures requiring assistance completed. Patient admitted, IV remains in kd3 place. Administered Medications: 14:02 Drug: Sotalol 80 mg Route: PO; jd3 15:00 Follow up: Response: No adverse reaction jd3 21:34 Follow up: Response: No adverse reaction kd3 Medication: 10:20 VIS not applicable for this client. jd3 Outcome: 14:36 Decision to Hospitalize by Provider. kdr 21:33 Admitted to Med/surg room 205. kd3 21:33 Condition: stable 21:33 Discharge instructions given to patient, Instructed on the need for admit, Demonstrated understanding of instructions. 21:56 Patient left the ED. kd3 Signatures: Dispatcher [employer] EDMA Anton Cha MD MD kdr Rubén Gunn RN RN jl7 Calderon Russell RN RN jd3 Emily Carreon RN RN 3 Scarlett Brink 7 Corrections: (The following items were deleted from the chart) 10:24 10:19 Cardiovascular: Capillary refill < 3 seconds Patient's skin is warm and dry. jd3 Rhythm is atrial fibrillation jd3 10:24 10:19 Respiratory: Reports shortness of breath on exertion Airway is patent Respiratory jd3 effort is even, unlabored, Respiratory pattern is regular, symmetrical, Denies cough, jd3
--- NOTE | 2022-03-15 14:37 | EDPHYS ---
Physician Documentation [facility] Name: Scarlett Garrett Age: 86 yrs Sex: Female : 1935 Arrival Date: 03/15/2022 Time: 10:04 Bed 19 Private MD: ED Physician Anton Cha HPI: 03/15 16:24 This 86 yrs old Female presents to ER via EMS with complaints of Palpitations.kdr 16:24 Patient presents with about a months worth of weakness and just not feeling well. kdr Several years ago during the early pandemic phase, she was diagnosed with A. fib and placed on amiodarone. That was subsequently discontinued and she has been without any rate control medication other than a beta-alanis. Today she presents with generalized fatigue malaise mild shortness of breath and midsternal chest pressure that has been slowly progressing over the course of month or more. She is not acutely ill nor does she appear toxic on initial presentation. However she feels increasingly weak and has difficulty performing daily activities due to the her weakness and shortness of breath.. The patient has experienced similar episodes in the past, chronically. The patient has not recently seen a physician. 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 - Social history:: Smoking status: Patient denies any tobacco usage or history of. ROS: 16:24 Constitutional: Negative for fever, chills, and weight loss, Eyes: Negative for injury, kdr pain, redness, and discharge, ENT: Negative for injury, pain, and discharge, Neck: Negative for injury, pain, and swelling, Abdomen/GI: Negative for abdominal pain, nausea, vomiting, diarrhea, and constipation, Back: Negative for injury and pain, : Negative for injury, bleeding, discharge, and swelling, MS/Extremity: Negative for injury and deformity, Skin: Negative for injury, rash, and discoloration, Psych: Negative for depression, anxiety, suicide ideation, homicidal ideation, and hallucinations, Allergy/Immunology: Negative for hives, rash, and allergies, Endocrine: Negative for neck swelling, polydipsia, polyuria, polyphagia, and marked weight changes, Hematologic/Lymphatic: Negative for swollen nodes, abnormal bleeding, and unusual bruising. 16:24 Cardiovascular: Positive for chest pain, palpitations, Negative for edema, orthopnea, paroxysmal nocturnal dyspnea. 16:24 Respiratory: Positive for shortness of breath, on exertion. Negative for dyspnea on exertion, hemoptysis, orthopnea, pleurisy. 16:24 Neuro: Positive for weakness, Negative for altered mental status, loss of consciousness, tinnitus, tremor, visual changes. Exam: 16:24 Constitutional: This is a well developed, well nourished patient who is awake, alert, kdr and in no acute distress. Head/Face: Normocephalic, atraumatic. Eyes: Pupils equal round and reactive to light, extra-ocular motions intact. Lids and lashes normal. Conjunctiva and sclera are non-icteric and not injected. Cornea within normal limits. Periorbital areas with no swelling, redness, or edema. Neck: Trachea midline, no thyromegaly or masses palpated, and no cervical lymphadenopathy. Supple, full range of motion without nuchal rigidity, or vertebral point tenderness. No Meningismus. Chest/axilla: Normal chest wall appearance and motion. Nontender with no deformity. No lesions are appreciated. Cardiovascular: Regular rate and rhythm with a normal S1 and S2. No gallops, murmurs, or rubs. Normal PMI, no JVD. No pulse deficits. Respiratory: Lungs have equal breath sounds bilaterally, clear to auscultation and percussion. No rales, rhonchi or wheezes noted. No increased work of breathing, no retractions or nasal flaring. Abdomen/GI: Soft, non-tender, with normal bowel sounds. No distension or tympany. No guarding or rebound. No evidence of tenderness throughout. Back: No spinal tenderness. No costovertebral tenderness. Full range of motion. Skin: Warm, dry with normal turgor. Normal color with no rashes, no lesions, and no evidence of cellulitis. MS/ Extremity: Pulses equal, no cyanosis. Neurovascular intact. Full, normal range of motion. Neuro: Awake and alert, GCS 15, oriented to person, place, time, and situation. Cranial nerves II-XII grossly intact. Motor strength 5/5 in all extremities. Sensory grossly intact. Cerebellar exam normal. Normal gait. Psych: Awake, alert, with orientation to person, place and time. Behavior, mood, and affect are within normal limits. Vital Signs: 10:04 BP 133 / 94; Pulse 110; Resp 15; Temp 97.3; Pulse Ox 100% on R/A; Weight 76.66 kg; jl7 Height 5 ft. 9 in. (175.26 cm); Pain 3/10; 10:54 BP 128 / 99; Pulse 102; Resp 16 S; Pulse Ox 100% on R/A; jd3 12:08 BP 124 / 93; Pulse 109; Resp 18 S; Pulse Ox 97% on R/A; jd3 12:51 BP 112 / 91; Pulse 89; Resp 18 S; Pulse Ox 97% on R/A; jd3 16:13 BP 138 / 99; Pulse 94; Resp 17 S; Pulse Ox 98% on R/A; jd3 17:53 BP 130 / 93; Pulse 101; Resp 18 S; Pulse Ox 97% on R/A; jd3 18:37 BP 120 / 87; Pulse 101; Resp 15 S; Pulse Ox 97% on R/A; jd3 21:55 BP 121 / 82; Pulse 99; Resp 17; Pulse Ox 98% on R/A; kd3 10:04 Body Mass Index 24.96 (76.66 kg, 175.26 cm) jl7 MDM: 14:36 Patient medically screened. kdr 16:24 Data reviewed: vital signs, nurses notes, lab test result(s), EKG, radiologic studies. kdr Counseling: I had a detailed discussion with the patient and/or guardian regarding: the historical points, exam findings, and any diagnostic results supporting the discharge/admit diagnosis, lab results, radiology results, the need for further work-up and treatment in the hospital. ED course: I discussed with Dr. Nava and he recommended patient be put on 80 mg of sotalol. He asked that this be added in addition to the metoprolol that the patient is already taking. Said he would see the patient shortly for evaluation. I attempted to reach Dr. Valladares several times without success as of this time we will do recheck headaches 30 to 60 minutes, I will admit to the hospitalist. 03/15 10:08 Order name: Basic Metabolic Panel; Complete Time: 13:09 kdr 03/15 10:08 Order name: CBC with Diff; Complete Time: 10:58 kdr 03/15 10:08 Order name: Troponin HS; Complete Time: 13:09 kdr 03/15 10:14 Order name: Ptt, Activated; Complete Time: 10:58 mb7 03/15 13:29 Order name: NT PRO-BNP; Complete Time: 13:56 EDMS 03/15 13:44 Order name: COVID-19 SARS RT PCR (Document "Date of Onset" if Symptomatic) sp 03/15 19:35 Order name: Thyroid Stimulating Hormone EDMS 03/15 19:35 Order name: CBC with Automated Diff EDMS 03/15 19:35 Order name: CBC with Automated Diff EDMS 03/15 19:35 Order name: CBC with Automated Diff EDMS 03/15 19:35 Order name: CBC with Automated Diff EDMS 03/15 19:35 Order name: Comprehensive Metabolic Panel [facility] 03/15 10:08 Order name: XRAY Chest (1 view); Complete Time: 10:58 [facility] 03/15 10:08 Order name: EKG; Complete Time: 10:08 [facility] 03/15 10:08 Order name: Cardiac monitoring; Complete Time: 10:13 [facility] 03/15 10:08 Order name: EKG - Nurse/Tech; Complete Time: 10:13 [facility] 03/15 10:08 Order name: IV Saline Lock; Complete Time: 10:13 [facility] 03/15 10:08 Order name: Labs collected and sent; Complete Time: 10:13 [facility] 03/15 10:08 Order name: O2 Per Protocol; Complete Time: 10:14 [facility] 03/15 10:08 Order name: O2 Sat Monitoring; Complete Time: 10:54 [facility] 03/15 16:33 Order name: Diet Heart Healthy; Complete Time: 16:34 jd3 03/15 19:35 Order name: CONS Physician Consult [facility] 03/15 19:35 Order name: Comprehensive Metabolic Panel [facility] 03/15 19:35 Order name: Comprehensive Metabolic Panel [facility] 03/15 19:35 Order name: Comprehensive Metabolic Panel [facility] Administered Medications: 14:02 Drug: Sotalol 80 mg Route: PO; jd3 15:00 Follow up: Response: No adverse reaction jd3 21:34 Follow up: Response: No adverse reaction kd3 Disposition Summary: 03/15/22 14:36 Hospitalization Ordered Hospitalization Status: Observation kdr Location: Telemetry/MedSurg (observation) kdr Condition: Fair kdr Problem: new kdr Symptoms: have improved kdr Bed/Room Type: Standard kdr Provider: Aron Valladares(03/15/22 17:05) kdr Room Assignment: [facility](03/15/22 19:54) cg Diagnosis - Weakness kdr - Chronic atrial fibrillation - RVR kdr Forms: - Medication Reconciliation Form kdr - SBAR form kdr Signatures: Dispatcher [employer] EDMS Anton Cha MD MD kdr Garcia, Cindy RN RN cg Rubén Gunn RN RN jl7 Calderon Russell RN RN Emily Castano RN kd3 Corrections: (The following items were deleted from the chart) 13:31 13:24 BASIC METABOLIC PANEL+C.LAB.BRZ ordered. EDMS EDMS 13:50 13:27 PROBNP+C.LAB.BRZ ordered. EDMS EDMS 17:05 14:36 Jaguar Rodriges kdr kdr 19:54 14:36 kdr cg
--- NOTE | 2022-03-15 19:28 | P.HP ---
Certification for Inpatient Patient admitted to: Inpatient With expected LOS: >2 Midnights Patient will require the following post-hospital care: None Practitioner: I am a practitioner with admitting privileges, knowledge of patient current condition, hospital course, and medical plan of care. Services: Services provided to patient in accordance with Admission requirements found in Title 42 Section 412.3 of the Code of Federal Regulations Patient History Date of Service: 03/15/22 Primary Care Provider: Vivek Gonzales Reason for admission: afib with rvr History of Present Illness: Patient is a pleasant office patient with a history of afib, hypothyroidism and chronic back pain. She has been feeling tired for the past month Her pulse has been erratic. Has been having more and more exercise tolerance. She was recently seen for diarrhea. The patient gets sob after 10min. She decided to come to the ER fo this reason ER physician called Dr. Fatima. He recommended sotolol and will see her in the am. Allergies ciprofloxacin [From Cipro] Allergy (Verified 12/16/20 02:13) Unknown levofloxacin [From Levaquin] Allergy (Verified 12/16/20 02:13) Rash Home Medications: Fish Oil/Dha/Epa [Fish Oil 1,200 mg Fish Oil] 1 each PO DAILY 08/14/15 Trazodone [Desyrel*] 100 mg PO BEDTIME 08/14/15 Escitalopram [Lexapro*] 10 mg PO DAILY 01/24/19 Levothyroxine [Synthroid*] 25 mcg PO DIRECTED 01/24/19 Magnesium [Magnesium Gluconate] 400 mg PO DAILY 01/24/19 Turmeric/Turmeric Root Extract [Turmeric 500 mg Capsule] 8,000 mg PO DAILY 01/24/19 vit A and D3 in cod liver oiL [Cod Liver Oil Softgel] 1 tab PO DAILY 01/24/19 Montelukast [Singulair*] 10 mg PO DAILY PRN 08/01/19 Ascorbic Acid [Vitamin C*] 2,000 mg PO DAILY 04/27/20 Levothyroxine [Synthroid*] 50 mcg PO DIRECTED 04/27/20 Metoprolol Tartrate [Lopressor*] 12.5 mg PO BID 04/27/20 Olmesartan Medoxomil [Benicar] 10 mg PO DAILY 04/27/20 Apixaban [Eliquis] 5 mg PO BID #60 tablet 04/29/20 Celecoxib [Celebrex] 200 mg PO DAILY 12/16/20 Cetirizine HCl [Zyrtec] 10 mg PO DAILY 12/16/20 Furosemide [Lasix] 20 mg PO BID 12/16/20 - Past Medical/Surgical History Diabetic: No -: arthritis -: depression -: severe TVR -: Hypertension -: Hypothyroidism -: hip replacement -: back surgery -: Elbow surgery -: hysterectomy -: appendectomy Psychosocial/ Personal History: Patient lives at home - Family History Father -: Heart disease Sister -: Hypertension, Stroke, Other (see notes) - Social History Alcohol use: Yes CD- Drugs: No Caffeine use: Yes Review of Systems 10-point ROS is otherwise unremarkable Respiratory: SOB with Excertion Cardiovascular: Palpitations Physical Examination - Physical Exam General: Alert, In no apparent distress HEENT: Atraumatic, PERRLA, Mucous membr. moist/pink, EOMI, Sclerae nonicteric Neck: Supple, 2+ carotid pulse no bruit, No LAD, Without JVD or thyroid abnormality Respiratory: Clear to auscultation bilaterally, Normal air movement Cardiovascular: Regular rate/rhythm, Normal S1 S2 Gastrointestinal: Normal bowel sounds, No tenderness Musculoskeletal: No tenderness Integumentary: No rashes Neurological: Normal gait, Normal speech, Normal strength at 5/5 x4 extr, Normal tone, Normal affect Lymphatics: No axilla or inguinal lymphadenopathy - Studies Laboratory Data (last 24 hrs) 03/15/22 13:23: Sodium Cancelled, Potassium Cancelled, BUN Cancelled, Creatinine Cancelled, Glucose Cancelled 03/15/22 10:45: Sodium 133 L, Potassium 4.4, BUN 15, Creatinine 0.89, Glucose 90 03/15/22 10:15: APTT 36.1 03/15/22 10:15: WBC 7.8, Hgb 11.1 L, Hct 32.2 L, Plt Count 198 Assessment and Plan - Problems (Diagnosis) (1) Atrial fibrillation Current Visit: Yes Status: Acute Plan: will admit and have her seen by Dr. Nava. Start the patient on sotolol. The patient may need amiodarone. Qualifiers: Atrial fibrillation type: longstanding persistent Qualified Code(s): I48.11 - Longstanding persistent atrial fibrillation (2) Low back pain Current Visit: Yes Status: Chronic Plan: She take celebrex and hydrocodone at home. will do scheduled tylenol. Have warned her not to use tumeric with the celebrex as it will worsen risk or pud. Qualifiers: Chronicity: chronic Back pain laterality: midline (3) HTN (hypertension) Current Visit: No Status: Chronic Plan: currently well controlled. Will hold off medications for now Qualifiers: Hypertension type: primary hypertension Qualified Code(s): I10 - Essential (primary) hypertension (4) Hypothyroidism Current Visit: No Status: Chronic Plan: She is on a very low dose of levothyroxine. Will restart and check her tsh Qualifiers: Hypothyroidism type: unspecified Qualified Code(s): E03.9 - Hypothyroidism, unspecified Discharge Plan: Home Plan to discharge in: 24 Hours - Advance Directives Does patient have a Living Will: Yes Does patient have a Durable POA for Healthcare: Yes - Code Status/Comfort Care Code Status Assessed: No Code Status: Full Code Critical Care: No Time Spent Managing Pts Care (In Minutes): 45
[2022-03-15] MEDS ORDERED: ACETAMINOPHEN 500 MG TAB PO PRN (19:31)
[2022-03-15 23:20] VITALS: BMI 23.8
[2022-03-16 06:14] LABS: Absolute Lymphocytes (CBC) 0.7 K/uL (0.7-4.9); Hematocrit 30.9 % (36.0-45.0); MPV 7.5 fL (7.6-11.3); RBC Red Blood Cell Count 3.04 M/uL (3.86-4.86)
[2022-03-16] MEDS: LEVOTHYROXINE SOD 0.025 MG TAB PO SCH (06:19)
[2022-03-16 06:41] LABS: Albumin 3.2 g/dL (3.4-5.0); Bilirubin Total 0.6 mg/dL (0.2-1.0); Protein, Total 5.7 g/dL (6.4-8.2); Thyroid Stimulating Hormone 3.27 uIU/mL (0.360-3.740)
[2022-03-16] MEDS: HYDROCODONE/APAP 7.5/325 MG TAB PO PRN ×2 (08:44→14:51)
--- NOTE | 2022-03-16 13:21 | P.PN ---
Subjective Date of Service: 03/16/22 Primary Care Provider: Vivek Gonzales Chief Complaint: afib with rvr Subjective: No new changes Review of Systems 10-point ROS is otherwise unremarkable Physical Examination - Vital Signs Temperature: 97.6 F Blood Pressure: 133/96 Pulse: 107 Respirations: 18 Pulse Ox (%): 99 - Physical Exam General: Alert, In no apparent distress HEENT: Atraumatic, PERRLA, EOMI Neck: Supple, JVD not distended Respiratory: Clear to auscultation bilaterally, Normal air movement Cardiovascular: Regular rate/rhythm, Normal S1 S2 Gastrointestinal: Normal bowel sounds, No tenderness Musculoskeletal: No tenderness Integumentary: No rashes Neurological: Normal speech, Normal tone, Normal affect Lymphatics: No axilla or inguinal lymphadenopathy - Studies Laboratory Data (last 24 hrs) 03/15/22 13:23: Sodium Cancelled, Potassium Cancelled, BUN Cancelled, Creatinine Cancelled, Glucose Cancelled Assessment And Plan - Current Problems (Diagnosis) (1) Atrial fibrillation Current Visit: Yes Status: Acute Plan: will admit and have her seen by Dr. Nava. Start the patient on sotolol. The patient may need amiodarone. Qualifiers: Atrial fibrillation type: longstanding persistent Qualified Code(s): I48.11 - Longstanding persistent atrial fibrillation (2) Low back pain Current Visit: Yes Status: Chronic Plan: She take celebrex and hydrocodone at home. will do scheduled tylenol. Have warned her not to use tumeric with the celebrex as it will worsen risk or pud. Qualifiers: Chronicity: chronic Back pain laterality: midline (3) HTN (hypertension) Current Visit: No Status: Chronic Plan: currently well controlled. Will hold off medications for now Qualifiers: Hypertension type: primary hypertension Qualified Code(s): I10 - Essential (primary) hypertension (4) Hypothyroidism Current Visit: No Status: Chronic Plan: She is on a very low dose of levothyroxine. Will restart and check her tsh Qualifiers: Hypothyroidism type: unspecified Qualified Code(s): E03.9 - Hypothyroidism, unspecified Discharge Plan: Home Plan to discharge in: 24 Hours - Code Status/Comfort Care Code Status Assessed: No Critical Care: No Time Spent Managing PTS Care (In Minutes): 20
--- NOTE | 2022-03-16 16:41 | CON ---
Date of Consultation: 03/16/2022 Reason For Consultation: Atrial fibrillation with rapid ventricular response. History Of Present Illness: An 86-year-old female with a history of paroxysmal atrial fibrillation, presented with palpitation, generalized weakness, shortness of breath, and dyspnea on exertion. Mini mal walking causes shortness of breath. Denies any chest pain. Past Medical History: Hypertension, hypothyroidism, and paroxysmal atrial fibrillation. Medications: Refer to reconciliation sheet for detailed list. Allergies: FLUOROQUINOLONES. Past Surgical History: Back surgery, elbow surgery, hysterectomy, appendectomy. Social History: She does not smoke or drink. Does not use any drugs. Family History: No premature coronary artery disease or cancer. Review of Systems: All systems reviewed and negative except mentioned in HPI. Physical Examination: Vital Signs: Reviewed. Head and Neck: Pupils are equal, reactive to light. Intact eye movements. No JVD. No cervical lym phadenopathy. Neck: Supple. Thyroid is not enlarged. Lungs: Clear to auscultation bilaterally. No rhonchi, rales, or crackles. No accessory muscle use. Heart: Irregularly irregular. No extra sounds. Abdomen: Soft, nontender. Bowel sounds positive. No organomegaly. No masses or hernia. No rigidi ty or rebound. Extremities: No clubbing or cyanosis. Intact pulses. Skin: No rashes. Neurologic: Alert, awake, oriented x3. No focal deficits appreciated. Investigations: Hemoglobin is 10.6. Creatinine 0.74. Troponin is 10.1. Assessment And Recommendations: 1.Atrial fibrillation with rapid ventricular response. Recommended sotalol 80 mg p.o. q.12 hours an d daily EKG to evaluate QTc interval. Heart rate has come down to acceptable range. Continue to mon itor 1 more night and continue Eliquis 5 mg twice a day and by tomorrow if heart rate is more control led, the patient can be released and re-evaluate in 4 weeks. If she continues to be in atrial fibril lation, then we will do electrical cardioversion and if blood pressure allows introduce a low-dose Ca rdizem 30 mg by mouth twice a day. 2.Shortness of breath in part due to the atrial fibrillation that is causing heart failure symptoms. We will plan on restoring sinus rhythm as outlined above. Thank you for the consult. /SAUL Voice ID: [id number] Report ID: [id number]
[2022-03-16] MEDS ORDERED: ENOXAPARIN 40 MG/0.4 ML SQ SCH (17:00)
[2022-03-16] MEDS: SOTALOL HCL 80 MG TAB PO SCH (17:17)
[2022-03-16] MEDS: APIXABAN 5 MG TABLET PO SCH (20:33)
[2022-03-16] MEDS: TRAZODONE 50 MG TABLET PO SCH (20:33)
[2022-03-16] MEDS: NIACIN 500 MG SR TAB PO SCH (20:33)
[2022-03-17] MEDS: SOTALOL HCL 80 MG TAB PO SCH ×2 (06:34→17:50)
[2022-03-17] MEDS: LEVOTHYROXINE SOD 0.025 MG TAB PO SCH (06:34)
[2022-03-17 06:45] LABS: Albumin 2.9 g/dL (3.4-5.0); Bilirubin Total 0.4 mg/dL (0.2-1.0); Potassium 4.2 mmol/L (3.5-5.1); Protein, Total 5.6 g/dL (6.4-8.2)
[2022-03-17 06:52] LABS: Hematocrit 30.5 % (36.0-45.0); Lymphocytes % 17.3 % (15.3-44.8); MPV 7.6 fL (7.6-11.3)
[2022-03-17] MEDS: ESCITALOPRAM 20 MG TAB PO SCH (08:59)
[2022-03-17] MEDS: ASCORBIC ACID 500 MG TABLET PO SCH (08:59)
[2022-03-17] MEDS: ZINC SULFATE 220 MG CAP PO SCH (08:59)
[2022-03-17] MEDS: HYDROCODONE/APAP 7.5/325 MG TAB PO PRN ×2 (08:59→15:22)
[2022-03-17] MEDS ORDERED: HOME MED 1 EA UNK (Cetirizine Hcl [Zyrtec] 10 MG Tablet) PO SCH (09:00)
[2022-03-17] MEDS: COD LIVER OIL PO SCH (09:00)
[2022-03-17] MEDS ORDERED: HOME MED 1 EA UNK (Escitalopram Oxalate [Lexapro] 10 MG Tablet) PO SCH (09:00)
[2022-03-17] MEDS ORDERED: VALSARTAN 80 MG TAB PO SCH (09:00)
[2022-03-17] MEDS: [UNRECOGNIZED DRUG - OTHER] PO SCH (09:00)
[2022-03-17] MEDS ORDERED: HOME MED 1 EA UNK (Olmesartan Medoxomil [Benicar] 20 MG Tablet) PO SCH (09:00)
[2022-03-17] MEDS: HOME MED 1 EA UNK (Magnesium [Magnesium Gluconate] 200 MG Tablet) PO SCH (09:00)
[2022-03-17] MEDS: MONTELUKAST 10 MG TAB PO SCH (09:05)
[2022-03-17] MEDS: NIACIN 500 MG SR TAB PO SCH ×2 (09:05→20:50)
[2022-03-17] MEDS: APIXABAN 5 MG TABLET PO SCH ×2 (09:05→20:50)
[2022-03-17] MEDS: CETIRIZINE HCL 5 MG TABLET PO SCH (09:05)
--- NOTE | 2022-03-17 10:39 | P.PN ---
Subjective Date of Service: 03/17/22 Primary Care Provider: Vivek Gonzales Chief Complaint: afib with rvr Subjective: No new changes Review of Systems 10-point ROS is otherwise unremarkable Musculoskeletal: Back Pain (chronic) Physical Examination - Vital Signs Temperature: 98.0 F Blood Pressure: 119/77 Pulse: 102 Respirations: 16 Pulse Ox (%): 96 - Physical Exam General: Alert, In no apparent distress HEENT: Atraumatic, PERRLA, EOMI Neck: Supple, JVD not distended Respiratory: Clear to auscultation bilaterally, Normal air movement Cardiovascular: Regular rate/rhythm, Normal S1 S2 Gastrointestinal: Normal bowel sounds, No tenderness Musculoskeletal: No tenderness Integumentary: No rashes Neurological: Normal speech, Normal tone, Normal affect Lymphatics: No axilla or inguinal lymphadenopathy Assessment And Plan - Current Problems (Diagnosis) (1) Atrial fibrillation Current Visit: Yes Status: Chronic Plan: will admit and have her seen by Dr. Nava. Start the patient on sotolol. The patient may need amiodarone. 03/17 Increase the sotolol to 80mg po qday. Hopefully if she improves we can dischage her today Qualifiers: Atrial fibrillation type: longstanding persistent Qualified Code(s): I48.11 - Longstanding persistent atrial fibrillation (2) Low back pain Current Visit: Yes Status: Chronic Plan: She take celebrex and hydrocodone at home. will do scheduled tylenol. Have warned her not to use tumeric with the celebrex as it will worsen risk or pud. Qualifiers: Chronicity: chronic Back pain laterality: midline (3) HTN (hypertension) Current Visit: No Status: Chronic Plan: currently well controlled. Will hold off medications for now Qualifiers: Hypertension type: primary hypertension Qualified Code(s): I10 - Essential (primary) hypertension (4) Hypothyroidism Current Visit: No Status: Chronic Plan: She is on a very low dose of levothyroxine. Will restart and check her tsh Qualifiers: Hypothyroidism type: unspecified Qualified Code(s): E03.9 - Hypothyroidism, unspecified Discharge Plan: Home Plan to discharge in: 24 Hours - Code Status/Comfort Care Code Status Assessed: No Critical Care: No Time Spent Managing PTS Care (In Minutes): 20
[2022-03-17] MEDS: CELECOXIB 100 MG CAPSULE PO PRN (13:51)
--- NOTE | 2022-03-17 19:47 | PN ---
Date of Progress Note: 03/17/2022 Subjective: Seen by bedside. Clinically, she is doing slightly better. Review of Systems: No chest pain. Shortness of breath on exertion is present. No nausea, vomiting, or diarrhea. No ab dominal pain. No dysuria, polyuria, or urgency. All other systems reviewed are negative. Physical Examination: Vital Signs: Reviewed. Head and Neck: Pupils are equal, reactive to light. Intact eye movements. No JVD. No cervical lym phadenopathy. Neck: Supple. Thyroid is not enlarged. Lungs: Clear to auscultation bilaterally. No rhonchi, rales, or crackles. No accessory muscle use. Heart: Irregularly irregular. No extra sounds. Abdomen: Soft, nontender. Bowel sounds positive. No organomegaly. No masses or hernia. No rigidi ty or rebound. Extremities: No edema, clubbing, cyanosis. Intact pulses. Skin: No rash noted. Neurologic: Alert, awake, oriented x3. No acute focal deficits appreciated. Investigations: Atrial fibrillation, rate is still running fast an order for Cardizem 30 m g q.8 hours. Discontinue valsartan, as her blood pressure will not tolerate both medications and con tinue sotalol 80 mg q.12 hours and continue Eliquis 5 mg twice a day. decision made overni t and plan to discharge the patient home tomorrow morning and follow up in the office in 4 weeks. If she does not convert to sinus rhythm at that time, we will plan for cardioversion. /SAUL Voice ID: [id number] Report ID: [id number]
[2022-03-17] MEDS: TRAZODONE 50 MG TABLET PO SCH (20:50)
[2022-03-18] MEDS: HYDROCODONE/APAP 7.5/325 MG TAB PO PRN (03:16)
[2022-03-18] MEDS: LEVOTHYROXINE SOD 0.025 MG TAB PO SCH (06:10)
[2022-03-18] MEDS: SOTALOL HCL 80 MG TAB PO SCH (06:10)
[2022-03-18 06:25] LABS: Absolute Lymphocytes (CBC) 0.9 K/uL (0.7-4.9); Hematocrit 31.4 % (36.0-45.0); Lymphocytes % 16.7 % (15.3-44.8); MPV 7.3 fL (7.6-11.3); RBC Red Blood Cell Count 3.04 M/uL (3.86-4.86)
[2022-03-18 06:43] LABS: Bilirubin Total 0.4 mg/dL (0.2-1.0); Potassium 4.1 mmol/L (3.5-5.1); Protein, Total 5.7 g/dL (6.4-8.2)
[2022-03-18 08:17] VITALS: BP 131/84; TEMP 97
--- NOTE | 2022-03-18 08:43 | P.DS ---
Admission Date: 03/15/22 Discharge Date: 03/18/22 Primary Care Provider: Vivek Gonzales Disposition: ROUTINE DISCHARGE Discharge Condition: GOOD Reason for Admission: afib with rvr - Problems (1) Atrial fibrillation Current Visit: Yes Status: Chronic Qualifiers: Atrial fibrillation type: longstanding persistent Qualified Code(s): I48.11 - Longstanding persistent atrial fibrillation (2) Low back pain Current Visit: Yes Status: Chronic Qualifiers: Chronicity: chronic Back pain laterality: midline (3) HTN (hypertension) Current Visit: No Status: Chronic Qualifiers: Hypertension type: primary hypertension Qualified Code(s): I10 - Essential (primary) hypertension (4) Hypothyroidism Current Visit: No Status: Chronic Qualifiers: Hypothyroidism type: unspecified Qualified Code(s): E03.9 - Hypothyroidism, unspecified Brief History of Present Illness: Patient is a pleasant office patient with a history of afib, hypothyroidism and chronic back pain. She has been feeling tired for the past month Her pulse has been erratic. Has been having more and more exercise tolerance. She was recently seen for diarrhea. The patient gets sob after 10min. She decided to come to the ER fo this reason ER physician called Dr. Fatima. He recommended sotolol and will see her in the am. Hospital Course: Patient admitted to a tele bed. Seen by Dr. Nava. switched to sotolol. She is feeling better She was complaining of back pain in her stay. She is on a lot of chronic pain meds. Which she seems to feel "I need, they seem to help". Advised against tumeric and nsaids. Tumeric is and NSAID so gi bleeds are at increased risk. Will have her follow up with Mrs Gonzales and Dr. Nava Vital Signs/Physical Exam: Temp Pulse Resp BP Pulse Ox 97.0 F 96 H 18 131/84 100 03/18/22 08:00 03/18/22 08:00 03/18/22 08:00 03/18/22 08:00 03/18/22 08:00 General: Alert, In no apparent distress HEENT: Atraumatic, PERRLA, EOMI Neck: Supple, JVD not distended Respiratory: Clear to auscultation bilaterally, Normal air movement Cardiovascular: Regular rate/rhythm, Normal S1 S2 Gastrointestinal: Normal bowel sounds, No tenderness Musculoskeletal: No tenderness Integumentary: No rashes Neurological: Normal speech, Normal tone, Normal affect Lymphatics: No axilla or inguinal lymphadenopathy Laboratory Data at Discharge: WBC 5.1 K/uL (4.3-10.9) 03/18/22 06:08 Hgb 10.4 g/dL (12.0-15.0) L 03/18/22 06:08 Hct 31.4 % (36.0-45.0) L 03/18/22 06:08 Plt Count 174 K/uL (152-406) 03/18/22 06:08 APTT 36.1 SECONDS (24.3-36.9) 03/15/22 10:15 Sodium 134 mmol/L (136-145) L 03/18/22 06:08 Potassium 4.1 mmol/L (3.5-5.1) 03/18/22 06:08 BUN 14 mg/dL (7-18) 03/18/22 06:08 Creatinine 0.98 mg/dL (0.55-1.3) 03/18/22 06:08 Glucose 86 mg/dL (74-106) 03/18/22 06:08 Total Bilirubin 0.4 mg/dL (0.2-1.0) 03/18/22 06:08 AST 13 U/L (15-37) L 03/18/22 06:08 ALT 33 U/L (12-78) 03/18/22 06:08 Alkaline Phosphatase 68 U/L (45-117) 03/18/22 06:08 Home Medications: Fish Oil/Dha/Epa [Fish Oil 1,200 mg Fish Oil] 1 each PO DAILY 08/14/15 Trazodone [Desyrel*] 100 mg PO BEDTIME 08/14/15 Magnesium [Magnesium Gluconate] 400 mg PO DAILY 01/24/19 Turmeric/Turmeric Root Extract [Turmeric 500 mg Capsule] 4,000 mg PO DAILY 01/24/19 vit A and D3 in cod liver oiL [Cod Liver Oil Softgel] 1 tab PO DAILY 01/24/19 Ascorbic Acid [Vitamin C*] 2,000 mg PO DAILY 04/27/20 Apixaban [Eliquis] 5 mg PO BID #60 tablet 04/29/20 Cetirizine HCl [Zyrtec] 10 mg PO DAILY 12/16/20 Cyclobenzaprine [Flexeril*] 1 tab PO PRN PRN 03/15/22 Escitalopram Oxalate [Lexapro] 10 mg PO DAILY 03/15/22 Hydrocodone Bit/Acetaminophen [Hydrocodon-Acetaminophen 5-325] 1 tab PO PRN PRN 03/15/22 Metoprolol Tartrate 1 tab PO BID 03/15/22 Montelukast Sodium [Singulair] 10 mg PO DAILY 03/15/22 Niacin 500 mg PO BID 03/15/22 Olmesartan Medoxomil [Benicar] 20 mg PO DAILY 03/15/22 Zinc Gluconate [Zinc Gluconate*] 50 mg PO DAILY 03/15/22 Sotalol HCl [Betapace*] 80 mg PO BID 6AM 6PM 90 Days #180 tab 03/18/22 New Medications: Sotalol HCl [Betapace*] 80 mg PO BID 6AM 6PM 90 Days #180 tab Diet: Regular Activity: Ad bria Followup: Olive Gonzales FNP [facility] [ALLIED HEALTH PROFESSIONAL] - 1 Week Chace Nava MD [ACTIVE - CAN ADMIT] - 1-2 Weeks Time spent managing pt's care (in minutes): 30
[2022-03-18] MEDS: HOME MED 1 EA UNK (Magnesium [Magnesium Gluconate] 200 MG Tablet) PO SCH (09:00)
[2022-03-18] MEDS: [UNRECOGNIZED DRUG - OTHER] PO SCH (09:00)
[2022-03-18] MEDS ORDERED: DILTIAZEM HCL 60 MG TAB PO SCH (09:00)
[2022-03-18] MEDS: COD LIVER OIL PO SCH (09:00)
[2022-03-18] MEDS: ASCORBIC ACID 500 MG TABLET PO SCH (09:16)
[2022-03-18] MEDS: CELECOXIB 100 MG CAPSULE PO PRN (09:17)
[2022-03-18] MEDS: ESCITALOPRAM 20 MG TAB PO SCH (09:17)
[2022-03-18] MEDS: ZINC SULFATE 220 MG CAP PO SCH (09:18)
[2022-03-18] MEDS: MONTELUKAST 10 MG TAB PO SCH (09:18)
[2022-03-18] MEDS: CETIRIZINE HCL 5 MG TABLET PO SCH (09:18)
[2022-03-18] MEDS: APIXABAN 5 MG TABLET PO SCH (09:18)
[2022-03-18] MEDS: NIACIN 500 MG SR TAB PO SCH (09:18)
[2022-03-18 09:26] VITALS: O2SAT 100
--- NOTE | 2022-03-18 12:24 | EKG ---
Test Date: 2022-03-15 Test Time: 10:02:52 Vp Publisher Development: DALIA MEASUREMENT RESULTS: Intervals: Rate: 93 MD: QRSD: 76 QT: 338 QTc: 420 [place]: P: MD: QRS: 36 T: -75 INTERPRETIVE STATEMENTS: Atrial fibrillation Nonspecific T wave abnormality Abnormal ECG Compared to ECG 01/08/2022 16:30:11 T-wave abnormality now present ST (T wave) deviation no longer present Electronically Signed On 03-18-22 12:17:26 CDT by Mingo David
--- NOTE | 2022-03-18 13:43 | PN ---
Date of Progress Note: 03/18/2022 Ms. Garrett has been followed by Dr. Valladares and Dr. Nava for atrial fibrillation, which is new onset, although she has had it approximately 2 years ago, at which point, she was on amiodarone, but that gibbs s resolved then. She sees . She is now on sotalol and Eliquis. Her heart rate is in the 50s. She is asymptomatic. I think she can go home on sotalol 40 b.i.d., Eliquis. We will arrjed jamison for outpatient echocardiogram and Lexiscan and we will see her soon. If she continued to be in A Fib for the next 2-3 weeks, we will cardiovert her electrically. RACHEL/SAUL Voice ID: [id number] Report ID: [id number]
== END 2022-03-18 09:58 | disposition home or self-care (01) | DRG 310 ==
LOC: ER 10:04 → SUPCPDRO 10:04 → ERHOLD 19:31 → 2ND 21:39
PROVIDERS: ADMIT Internal Medicine; ATTEND Internal Medicine
DX: I48.11 Longstanding persistent atrial fibrillation (principal); M54.50 Low back pain, unspecified; I10 Essential (primary) hypertension; E03.9 Hypothyroidism, unspecified; Z96.649 Presence of unspecified artificial hip joint; Z20.822 Contact with and (suspected) exposure to COVID-19
CPT/HCPCS: 36415; 71045; 80048; 80053; 83880; 84443; 84484; 85025; 85730; 93005; 97116; 97161; 97530; 99285; J1650; U0003

== ENCOUNTER 2022-08-24 18:32 | Emergency (ER) | payer OTHER ==
--- OUTSIDE RECORDS SUMMARY | 2022-08-24 18:43 | XMS REPORT | Continuity of Care Document ---
:1935 Author Organization [facility] t Address [address] [place] [address] Care Team Providers Name Role Phone Asked, None Given Primary Care Physician Unavailable GUS BRITO Attending Clinician Unavailable Kamran NANCE, Emy Attending Clinician Unavailable Gus Brito MD Attending Clinician Yecenia LEHR ATTENDANT, Warner Hobson Attending Clinician WARNER HEATON Attending Clinician Unavailable Sissy Plascencia MD Attending Clinician Raymond Jj DO Attending Clinician Tabitha Barron MD Attending Clinician Angel Ramirez MD Attending Clinician [phone] Juan Burnham MD Attending Clinician SISSY PLASCENCIA Attending Clinician Unavailable Moody Gore RN Attending Clinician Unavailable Dickson BALBUENA, Hamzah Correia Attending Clinician [phone] HAMZAH FORMAN Attending Clinician Unavailable Chace Nava Attending Clinician Unavailable MARCO IRENE Attending Clinician Unavailable MARCO IRENE Attending Clinician Unavailable Marco Irene MD Attending Clinician RONAN JOSHI Attending Clinician Unavailable IVAN HUTCHISON Attending Clinician Unavailable DANE FONSECA Attending Clinician Unavailable Lobo Sanchez Attending Clinician Unavailable JILL COTTON Attending Clinician Unavailable GUS BRITO Admitting Clinician Unavailable SISSY PLASCENCIA Admitting Clinician Unavailable Chace Nava Admitting Clinician Unavailable Payers Payer Name Policy Type Policy Number Effective Date Expiration Date S ource UNITED MEDICARE [id number] 2021 O 00:00:00 [facility] [id number] 2020 [facility] 00:00:00 PPO MEDICARE PART B - [id number] 2010 MEDICARE 00:00:00 GENERIC PPO - [id number] GENERIC PAYOR MEDICARE ADVANTAGE [id number] PPO - [place] Problems Condition Condition Condition Status Onset Resolution Last Treating Co mments Source Name Details Category Date Date Treatment Clinician Date Pneumothor Pneumothor Disease [facility] 04[facility]: s/p 04/24: s/p Disease [facility] MV repair 04[facility]24 [facility] (28mm CG (28mm CG 00:00: Medica l Future), Future), 00 Center TV repair TV repair (28mm (28mm [facility]) [facility]) (Dr. Brito) (Dr. Brito) S/P TVR S/P TVR Disease Active [facility] (tricuspid (tricuspid 04-24 [facility] valve valve 00:00: Medical repair) repair) 00 Center s/p Mitral s/p Mitral Disease Active [facility] and and 04-23 [facility] Tricuspid Tricuspid 00:00: Medi eddie Valve Valve 00 Center Repair by Repair by Dr. 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 [facility] ion ion Medical Center Acute Acute Disease Active [facility] respirator respirator [facility] y y Medical insufficie insufficie Ce nter ncy ncy Acute Acute Disease Active [facility] blood loss blood loss [facility] anemia anemia [facility] Thrombocyt Thrombocyt Disease Active [facility] openia openia [facility] Hyperglyce Hyperglyce Disease Active [facility] jonathon jonathon [facility] Allergies, Adverse Reactions, Alerts Allergy Allergy Status Severity Reaction(s) Onset Inactive Treating Comm ents Source Name Type Date Date Clinician Ciproflo Propensi Active Rash [facility] x[facility] ty to 04-09 [facility] adverse 00:00: Medical reaction 00 Center s Levoflox Propensi Active Rash [facility] adverse 00:00: Medical reaction 00 Center s CIPROFLO Allergy Active Low Rash [facility] XACIN 04-09 00:00: 00 LEVOFLOX Allergy Active Low Rash 0 [facility] ACIN 04-09 00:00: 00 ciproflo DA Active [place] [facility] xacin 04-01 Clear 00:00: [place] 00 [facility] CIPROFLO DRUG Active Rash 2019-10 [facility] XACIN INGREDI 10-19 ity of 00:00: [place] [facility] Ciproflo Propensi Active Rash Method i xacin ty to 03-18 st adverse 00:00: Hospita reaction 00 l s to drug Levoflox Propensi Active Rash Method i acin ty to 03-18 st adverse 00:00: Hospita reaction 00 l s to drug Ciproflo Propensi Active Method i xacin ty to 03-14 st adverse 00:00: Hospita reaction 00 l s to drug Levoflox Propensi Active Method i acin ty to 03-14 st adverse 00:00: Hospita reaction 00 l s to drug levoflox DA Active [place] [facility] acin 03-07 [place] 00:00: [facility] 00 dic Hospita l levoflox DA Active [place] [facility] acin 5-20 Clear 00:00: [place] 00 [facility] Family History Family Member Diagnosis Comments Start Date Stop Date Source Natural father Heart attack [facility] Natural mother Brain cancer [facility] Natural sister [facility]roke [facility] Social History Social Habit Start Date Stop Date Quantity Comments Source Alcohol intake 2022-05-28 2022-05-28 [facility] (finding) Tobacco use and 2022-04-22 2022-04-[address] [facility] [address] [facility] exposure 00:00:00 00:00:00 Medical Center Sex Ass[birth year] At [birth year] [facility] 00[facility]00 [facility] Smoking Status Start Date Stop Date Source [facility] Medications Ordered Filled Start Stop Current Ordering Indication Dosage Frequency Signature Comments Components Source Medication Medication Date Date Medication? Clinician (SIG) Name Name cyclobenzap Yes 10mg Take [address] [facility] [address] rine 8-10 by mouth 3 [facility] (FLEXERIL) 10:40: (three) Medi eddie 10 MG 29 times Center tablet daily as needed for Muscle spasms. apixaban Yes 5mg Q.5D Take [address] (Eliquis) 5 8-10 by mouth 2 [facility] mg Tab 10:39: (two) Medical tablet 23 times Center daily. levothyroxi Yes 50ug Take [address] [facility] ne 8-10 mcg by [facility] (SYNTHROID, 10:39: mouth Medic al LEVOTHROID) 23 Every Center 50 MCG morning on tablet an empty stomach. escitalopra Yes 10mg QD Take [address] m oxalate 8-10 by mouth [facility] (LEXAPRO) 10:39: daily . Medic al 20 MG 23 Center tablet traZODone Yes 100mg QD Take [address] (DESYREL) 8-10 mg by [facility] 100 MG 10:39: mouth Medical tablet 23 nightly. Center montelukast Yes 10mg QD Take [address] (SINGULAIR) 8-10 by mouth Luke s 10 mg 10:39: nightly. Medical tablet 23 Center VITAMINS A Yes QD Take by [facility] AND D ORAL 8-10 mouth [facility] 10:39: daily . [address] cholecalcif Yes 5000U QD Take 5,[address] berta, 8-10 Units by [facility] vitamin D3, 10:39: mouth Medic al 50 mcg 23 daily . [place] (2,000 unit) Cap omega-3 Yes 2g Q.5D Take [address] fatty 8-10 by mouth 2 [facility] acids-fish 10:39: (two) Medica l oil 23 times Center 340-1,000 daily. mg Cap per capsule C/E/zinc/co Yes Take by [facility] p/eliu/lut/z 8-10 mouth. [facility] eax/glut 10:39: Medical (VISTA 23 Center ADVANCED AREDS2 ORAL) magnesium Yes 400mg QD Take [address] oxide 400 8-10 mg by [facility] mg 10:39: mouth Medical magnesium 23 daily . [place] Tab ZINC Yes 50mg QD Take [address] GLUCONATE 8-10 by mouth [facility] ORAL 10:39: daily . [address] cetirizine Yes 10mg QD Take [address] (ZyrTEC) 10 8-10 by mouth Luke s MG tablet 10:39: daily. Medica l 23 Center HYDROcodone Yes 1{tbl} Take [address] -acetaminop 8-10 tablet by Shelbie es hen (NORCO 10:39: mouth Medica l 7.5-325) 23 every 6 Center 7.5-325 mg (six) per tablet hours as needed for Pain. sotaloL Yes 120mg Q.5D Take 120 [facility] (BETAPACE) 8-10 mg by [facility] 80 MG 10:39: mouth 2 Medical tablet 23 (two) Center times daily. amLODIPine 0 Yes 5mg QD Take 1 [facility] (NORVASC) 5 7-20 tablet (5 Shelbie es MG tablet 00:00: mg total) Med ical 00 by mouth Center daily. aspirin 81 Yes 81mg QD Take 1 [facility] MG EC 7-20 tablet (81 [facility] tablet 00:00: mg total) Medica l 00 by mouth Center daily. famotidine Yes 20mg QD Take 1 [facility] (PEPCID) 20 7-20 tablet (20 [facility] MG tablet 00:00: mg total) Med ical 00 by mouth Center daily. furosemide Yes 20mg QD Take 1 [facility] (LASIX) 20 7-20 tablet (20 Shelbie es MG tablet 00:00: mg total) Med ical 00 by mouth Center daily. DILTIAZEM 0 2021- No 30mg [id number] Take [address] HCL ORAL 7-19 07-19 [id number] by mouth 3 [facility] 10:39: 00:00 3D (three) Medical 12 :00 times Center daily . TURMERIC 2021- No 4000mg QD Take 4,[address] ORAL 7-19 07-19 mg by [facility] 10:39: 00:00 mouth Medical 12 :00 daily . Center metoprolol Yes 50mg Q.[id number] Take [address] tartrate -19 [id number] tablet (50 [facility] (LOPRESSOR) 00:00: 3D mg total) M edical 50 MG 00 by mouth 3 Center tablet (three) times daily. metoprolol 2019-0 Yes 25mg Q.5D Take 25 mg M ethodi tartrate 8-[address] (LOPRESSOR) 14:41: (two) Hospi ta 25 MG 00 times a l tablet day. celecoxib 2020-0 Yes 200mg Q.5D Take 200 Met hodi (CeleBREX) 8-[address] 200 MG 14:41: mouth 2 Hospita capsule 00 (two) l times a day. escitalopra 2020-0 Yes 10mg QD Take 10 mg Methodi m (LEXAPRO) 8-[address] 10 MG 14:41: daily. Hospita tablet 00 l traZODone 2020-0 Yes 100mg QD Take 100 Met hodi (DESYREL) 8-[address] 100 MG 14:41: mouth Hospita tablet 00 nightly. l lidocaine 2020-0 Yes 1{patch Q24H Place 1 Me thodi (LIDODERM) 8-05 } patch on st 5 % 14:41: the skin Hospita 00 daily. l Remove & Discard patch within 12 hours or as directed by estradiol 2020-0 Yes 2g QD Insert 2 g Me thodi (ESTRACE) 8-[address] 0.01 % (0.1 14:41: vagina Hosp felisha mg/gram) 00 daily. l vaginal cream vitamin A & Yes Apply Metho di D ointment 8-[address] 14:41: as needed Hospita 00 for dry l skin. multivitami 2019-0 Yes 1{tbl} QD Take 1 Me thodi n 8-[address] (THERAGRAN) 14:41: mouth Hospi ta tablet 00 daily. l omega-3 Yes 1g Q.5D Take 1 g Method i acid ethyl 8-[address] esters 14:41: (two) Hospita (LOVAZA) 1 00 times a l gram day. capsule calcium Yes 1{tbl} QD Take 1 Method i carbonate-v 8-[address] itamin D3 14:41: mouth Hospita 250-125 00 daily. l mg-unit tablet metoprolol Yes 25mg Q.5D Take 25 mg M ethodi tartrate 6-[address] (LOPRESSOR) 12:11: (two) Hospi ta 25 MG 15 times a l tablet day. escitalopra Yes 10mg QD Take 10 mg Methodi m (LEXAPRO) 6- by mouth st 10 MG 12:11: daily. Hospita tablet 15 l traZODone Yes 100mg QD Take 100 Met hodi (DESYREL) 6-[address] 100 MG 12:11: mouth Hospita tablet 15 nightly. l lidocaine Yes 1{patch Q24H Place 1 Me thodi (LIDODERM) 6- } patch on st 5 % 12:11: the skin Hospita 15 daily. l Remove & Discard patch within 12 hours or as directed by estradiol Yes 2g QD Insert 2 g Me thodi (ESTRACE) 6-[address] 0.01 % (0.1 12:11: vagina Hosp felisha mg/gram) 15 daily. l vaginal cream nitrofurant Yes 50mg QD Take 50 mg Methodi oin 6-[address] (MACRODANTI 12:11: daily. Hosp felisha N) 50 MG 15 l capsule celecoxib Yes Methodi (CeleBREX) 5-18 st 200 MG 00:00: Hospita capsule 00 l HYDROcodone 0 Yes Method i -acetaminop 5-18 st hen (NORCO 00:00: Hospita 10-325) 00 l 10-325 mg per tablet Immunizations Ordered Immunization Filled Immunization Date Status Commen ts Source Name Name [facility] COVID-19 MRNA 2020-11-24 Completed Meth odist VACCINATION 00:00:00 [facility] PFIZER COVID-19 MRNA 2020-11-03 Completed Meth odist VACCINATION 00:00:00 [facility] Vital Signs Vital Name Observation Time Observation Value Comments Source HEIGHT 2022-04-22 14:36:00 175.3 cm WEIGHT 2022-04-22 14:36:00 75.751 kg HEIGHT 2022-05-28 10:36:00 175.3 cm WEIGHT 2022-05-28 10:36:00 66.679 kg HEIGHT 2022-05-28 10:36:00 175.3 cm WEIGHT 2022-05-28 10:36:00 66.679 kg WEIGHT 2022-05-06 06:26:00 75.524 kg WEIGHT 2022-05-05 04:25:00 70.58 kg WEIGHT 2022-05-04 05:00:00 70.806 kg WEIGHT 2022-05-03 04:00:00 72.53 kg WEIGHT 2022-05-02 03:35:00 73.12 kg WEIGHT 2022-05-01 05:16:00 74.707 kg WEIGHT 2022-04-29 04:00:00 80.9 kg WEIGHT 2022-04-28 04:00:00 81.2 kg WEIGHT 2022-04-27 06:00:00 81.4 kg WEIGHT 2022-04-26 04:00:00 80 kg WEIGHT 2022-04-25 06:00:00 70.308 kg WEIGHT 2022-04-24 04:00:00 71.169 kg HEIGHT 2022-04-23 07:02:00 175.3 cm WEIGHT 2022-04-23 07:02:00 73.936 kg WEIGHT 2022-05-06 06:26:00 75.524 kg WEIGHT 2022-05-05 04:25:00 70.58 kg WEIGHT 2022-05-04 05:00:00 70.806 kg WEIGHT 2022-05-03 04:00:00 72.53 kg WEIGHT 2022-05-02 03:35:00 73.12 kg WEIGHT 2022-05-01 05:16:00 74.707 kg WEIGHT 2022-04-29 04:00:00 80.9 kg WEIGHT 2022-04-28 04:00:00 81.2 kg WEIGHT 2022-04-27 06:00:00 81.4 kg WEIGHT 2022-04-26 04:00:00 80 kg WEIGHT 2022-04-25 06:00:00 70.308 kg WEIGHT 2022-04-24 04:00:00 71.169 kg HEIGHT 2022-04-23 07:02:00 175.3 cm WEIGHT 2022-04-23 07:02:00 73.936 kg WEIGHT 2022-05-06 06:26:00 75.524 kg WEIGHT 2022-05-05 04:25:00 70.58 kg WEIGHT 2022-05-04 05:00:00 70.806 kg WEIGHT 2022-05-03 04:00:00 72.53 kg WEIGHT 2022-05-02 03:35:00 73.12 kg WEIGHT 2022-05-01 05:16:00 74.707 kg WEIGHT 2022-04-29 04:00:00 80.9 kg WEIGHT 2022-04-28 04:00:00 81.2 kg WEIGHT 2022-04-27 06:00:00 81.4 kg WEIGHT 2022-04-26 04:00:00 80 kg WEIGHT 2022-04-25 06:00:00 70.308 kg WEIGHT 2022-04-24 04:00:00 71.169 kg HEIGHT 2022-04-23 07:02:00 175.3 cm WEIGHT 2022-04-23 07:02:00 73.936 kg HEIGHT 2022-04-09 11:20:00 175.3 cm WEIGHT 2022-04-09 11:20:00 75.751 kg HEIGHT 2022-04-09 11:20:00 175.3 cm WEIGHT 2022-04-09 11:20:00 75.751 kg Systolic blood 2022-05-28 10:36:00 136 mm[Hg] [facility] Diastolic blood 2022-05-28 10:36:00 79 mm[Hg] [facility] Heart rate 2022-05-28 10:36:00 89 /min [facility] Body height 2022-05-28 10:36:00 175.3 cm [facility] Body weight 2022-05-28 10:36:00 66.679 kg [facility] BMI 2022-05-28 10:36:00 21.71 kg/m2 [facility] Oxygen saturation in 2022-05-28 10:36:00 98 /min [facility] Arterial blood by Medical Ce nter Pulse oximetry Body temperature 2022-05-06 08:00:00 36.39 Deanna [facility] Respiratory rate 2022-05-06 08:00:00 19 /min [facility] Procedures Procedure Date / Time Performing Clinician Source Performed POCT-GLUCOSE METER 2022-05-06 07:45:00 Gus Brito [facility] BASIC METABOLIC PANEL 2022-05-06 05:58:00 Lux Campbell [facility] MAGNESIUM 2022-05-06 05:58:00 Lux Campbell Aaron [facility] CBC (HEMOGRAM ONLY) 2022-05-06 05:58:[address] [facility] XR CHEST 1 VIEW PORTABLE / 2022-05-06 05:18:00 Daniella Alonso [facility] POCT-GLUCOSE METER 2022-05-05 21:22:00 BritoGus bruce [facility] POCT-GLUCOSE METER 2022-05-05 16:48:00 Gus Brito [facility] POCT-GLUCOSE METER 2022-05-05 11:39:00 Gus Brito [facility] XR CHEST 1 VIEW PORTABLE / 2022-05-05 09:01:00 Tonia-Smart, Sonya h [facility] POCT-GLUCOSE METER 2022-05-05 07:16:00 Gus Brito [facility] BASIC METABOLIC PANEL 2022-05-05 03:55:00 Lux Campbell [facility] MAGNESIUM 2022-05-05 03:55:00 Lux Campbell [facility] CBC (HEMOGRAM ONLY) 2022-05-05 03:55:[address] [facility] POCT-GLUCOSE METER 2022-05-04 21:37:00 Brito, Gus Mason [facility] POCT-GLUCOSE METER 2022-05-04 17:32:00 Brito, Gus Mason [facility] XR CHEST 1 VIEW PORTABLE / 2022-05-04 14:20:00 Alfie Gonsalves [facility] POCT-GLUCOSE METER 2022-05-04 12:15:00 Brito, Gus Mason [facility] POCT-GLUCOSE METER 2022-05-04 08:44:00 BritoGus [facility] XR CHEST 1 VIEW PORTABLE / 2022-05-04 06:41:00 Tonia-Smart, Sonya h [facility] BASIC METABOLIC PANEL 2022-05-04 03:42:00 Lux Campbell [facility] MAGNESIUM 2022-05-04 03:42:00 Lux Campbell [facility] CBC (HEMOGRAM ONLY) 2022-05-04 03:42:00 Lux Campbell [facility] POCT-GLUCOSE METER 2022-05-03 21:24:00 BritoGus [facility] POCT-GLUCOSE METER 2022-05-03 17:03:00 Brito, Gus Mason [facility] XR CHEST 1 VIEW PORTABLE / 2022-05-03 12:56:00 Tonia-Smart, Sonya h [facility] POCT-GLUCOSE METER 2022-05-03 11:29:00 Brito, Gus Mason [facility] POCT-GLUCOSE METER 2022-05-03 07:19:00 Brito, Gus Mason [facility] BASIC METABOLIC PANEL 2022-05-03 05:18:00 Lux Campbell [facility] MAGNESIUM 2022-05-03 05:18:[address] [facility] CBC (HEMOGRAM ONLY) 2022-05-03 05:18:[address] [facility] POCT-GLUCOSE METER 2022-05-02 21:05:00 Gus Brito [facility] POCT-GLUCOSE METER 2022-05-02 16:39:00 BritoGus bruce [facility] XR CHEST 1 VIEW PORTABLE / 2022-05-02 13:32[facility] POCT-GLUCOSE METER 2022-05-02 12:17:00 Gus Brito [facility] 2D ECHO W/ DOPPLER 2022-05-02 12:16:00 [facility] (CW/PW/COLOR) [facility] 2D ECHO W/ DOPPLER 2022-05-02 10:26:33 [facility] (CW/PW/COLOR) [facility] POCT-GLUCOSE METER 2022-05-02 07:14:00 Gus Brito [facility] XR CHEST 1 VIEW PORTABLE / 2022-05-02 06:43:[address] [facility] BASIC METABOLIC PANEL 2022-05-02 04:44:00 Lux Campbell [facility] MAGNESIUM 2022-05-02 04:44:00 Lux Campbell Aaron [facility] CBC (HEMOGRAM ONLY) 2022-05-02 04:44:[address] [facility] POCT-GLUCOSE METER 2022-05-01 21:14:00 Gus Brito [facility] POCT-GLUCOSE METER 2022-05-01 17:23:00 Gus Brito [facility] POCT-GLUCOSE METER 2022-05-01 11:24:00 Gus Brito [facility] XR CHEST 1 VIEW PORTABLE / 2022-05-01 09:01:[address] [facility] POCT-GLUCOSE METER 2022-05-01 07:39:00 Gus Brito [facility] XR CHEST 1 VIEW PORTABLE / 2022-05-01 06:46:[address] [facility] BASIC METABOLIC PANEL 2022-05-01 04:27:00 Lux Campbell [facility] MAGNESIUM 2022-05-01 04:27:00 Lux Campbell Aaron [facility] CBC (HEMOGRAM ONLY) 2022-05-01 04:27:[address] [facility] POCT-GLUCOSE METER 2022-04-30 21:16:00 Gus Brito [facility] POCT-GLUCOSE METER 2022-04-30 17:14:00 Gus Brito [facility] POCT-GLUCOSE METER 2022-04-30 11:56:00 Анна [facility] POCT-GLUCOSE METER 2022-04-30 07:25:00 Анна [facility] XR CHEST 1 VIEW PORTABLE / 2022-04-30 07:07:[address] [facility] POCT-GLUCOSE METER 2022-04-29 21:20:00 Анна [facility] POCT-GLUCOSE METER 2022-04-29 16:15:00 Анна [facility] POCT-GLUCOSE METER 2022-04-29 10:59:00 Анна [facility] XR CHEST 1 VIEW PORTABLE / 2022-04-29 10:50:00 Heide Gaytan [facility] XR CHEST 1 VIEW PORTABLE / 2022-04-29 09:20:00 Shravan Joseph [facility] POCT-GLUCOSE METER 2022-04-29 06:59:00 Анна [facility] CBC W/PLT COUNT & AUTO 2022-04-29 03:48:00 Odilia Alaniz [facility] BASIC METABOLIC PANEL 2022-04-29 03:48:[facility] 2022-04-29 03:48[facility] PHOS[facility]US 2022-04-29 03:48[facility] CALCIUM, [facility]ONIZED 2022-04-29 03:[facility] AUTO 2022-04-29 03:48[facility]00 [facility] 2022-04-29 03:48:00 Odilia Alaniz [facility] POCT-GLUCOSE METER 2022-04-29 01:31:00 Raymond Jj [facility] XR CHEST 1 VIEW PORTABLE / 2022-04-29 01:09:00 Corbin [facility] POCT-GLUCOSE METER 2022-04-28 16:23:00 [facility] POCT-GLUCOSE METER 2022-04-28 11:48:00 [facility] XR CHEST 1 VIEW PORTABLE / 2022-04-28 11:10:00 Arnulfo Duarte [facility] CBC W/PLT COUNT & AUTO 2022-04-28 03:28:00 Corbin [facility] BASIC METABOLIC PANEL 2022-04-28 03:28:[facility] 2022-04-28 03:28:[facility] PHOS[facility]US 2022-04-28 03:28:00 [facility] 2022-04-28 03:28:00 [facility] W/[facility]T COUNT & AUTO 2022-04-28 03:28:00 [facility]CELL[facility]ISION MANUAL DIFF) 2022-04-28 03:28:00 Odilia Alaniz [facility] XR CHEST 1 VIEW PORTABLE / 2022-04-28 01:00:00 Odilia Alaniz [facility] POCT-GLUCOSE METER 2022-04-28 00:07:00 Temo [facility] PREPARE RBC 2022-04-27 23:54:00 Gus Brito [facility] POCT-GLUCOSE METER 2022-04-27 17:57[facility]SE [facility] 2022-04-27 11:02:00 [facility] XR CHEST 1 VIEW PORTABLE / 2022-04-27 07:52:00 Odilia Alaniz [facility] POCT-GLUCOSE METER 2022-04-27 07:37:00 Temo [facility] BLOOD GAS, ARTERIAL 2022-04-27 05:42:[address] [facility] OXYGEN SATURATION, 2022-04-27 05:42:00 Odilia Alaniz [facility] CBC W/PLT COUNT & AUTO 2022-04-27 05:41:00 Odilia Alaniz [facility] BASIC METABOLIC PANEL 2022-04-27 05:41:00 Odilia Alaniz [facility] MAGNESIUM 2022-04-27 05:41:00 Odilia Alaniz [facility] PHOSPHORUS 2022-04-27 05:41:00 Corbin [facility] CALCIUM, IONIZED 2022-04-27 05:41:00 [facility] CBC W/PLT COUNT & AUTO 2022-04-27 05:41:00 Odilia Alaniz [facility] (CELLAVISION MANUAL DIFF) 2022-04-27 05:41:00 Odilia Alaniz denilson [facility] POCT-GLUCOSE METER 2022-04-27 00:23:00 [facility] LEUKO-REDUCED RBC 2022-04-26 23:54:00 Jayce Mauricio alonso [facility] XR CHEST 1 VIEW PORTABLE / 2022-04-26 20:34:00 Sandra Mauricio obdulio [facility] HEMOGLOBIN AND HEMATOCRIT 2022-04-26 20:28:00 Odilia Alaniz [facility] POCT-GLUCOSE METER 2022-04-26 17:25:00 [facility] 2022-04-26 11:43:00 Gus Brito [facility] XR CHEST 1 VIEW PORTABLE / 2022-04-26 11:41:00 Odilia Alaniz [facility] OXYGEN SATURATION, 2022-04-26 11:24:00 Corbin [facility] BLOOD GAS, ARTERIAL 2022-04-26 11:06:00 Odilia Alaniz [facility] CBC (HEMOGRAM ONLY) 2022-04-26 10:52:00 Corbin [facility] BASIC METABOLIC PANEL 2022-04-26 10:52:00 Corbin [facility] MAGNESIUM 2022-04-26 10:52:00 Corbin [facility] PHOSPHORUS 2022-04-26 10:52:00 Corbin [facility] CALCIUM, IONIZED 2022-04-26 10:52:00 Corbin [facility] LACTIC ACID, ARTERIAL 2022-04-26 10:52:[facility] PT/APTT 2022-04-26 10:52:00 Corbin [facility] FIBRINOGEN 2022-04-26 10:52:00 Corbin [facility] TRANSFUSE LEUKO-REDUCED 2022-04-26 09:34:00 Jayce Mauricio [facility] RED BLOOD [facility] RRL CRITICAL LABS 2022-04-26 09:12:15 Tabitha Barron [facility] (ABG,NA,K,H&H,GLUCOSE) Medical C enter CALCIUM, IONIZED 2022-04-26 09:12:15 Tabitha Barron [facility] BLOOD GAS, ARTERIAL 2022-04-26 09:12:15 Tabitha Barron [facility] SODIUM NA-STAT LAB 2022-04-26 09:12:15 Tabitha Barron [facility] POTASSIUM-STAT LAB 2022-04-26 09:12:15 Tabitha Barron [facility] GLUCOSE-STAT LAB 2022-04-26 09:12:15 Tabitha Barron [facility] HGB/HCT (H&H) - STAT LAB 2022-04-26 09:12:15 Tabitha Barron [facility] THORACOTOMY 2022-04-26 08:27:00 Gus Brito [facility] POCT-GLUCOSE METER 2022-04-26 05:49:00 Sissy Plascencia [facility] BASIC METABOLIC PANEL 2022-04-26 02:04:00 Arnulfo Duarte [facility] MAGNESIUM 2022-04-26 02:04:00 Gerald [facility] PHOSPHORUS 2022-04-26 02:04:00 Gerald [facility] [place] Jade [facility] CBC (HEMOGRAM ONLY) 2022-04-26 02:04:00 Gerald [facility] CALCIUM, IONIZED 2022-04-26 02:04:00 Clyde Mix [facility] XR CHEST 1 VIEW PORTABLE / 2022-04-26 01:47:00 Odilia Alaniz [facility] PREPARE RBC 2022-04-25 23:54:00 Gus Brito [facility] PREPARE PLATELETS 2022-04-25 23:54:00 Gus Brito [facility] PREPARE CRYOPRECIPITATE 2022-04-25 23:54:00 Gus Brito Marlon [facility] POCT-GLUCOSE METER 2022-04-25 23:50:00 Temo [facility] BASIC METABOLIC PANEL 2022-04-25 18:27:00 [facility] LACTIC ACID, ARTERIAL 2022-04-25 18:27:00 [facility], [facility] OXYGEN SATURATION, 2022-04-25 18:27:00 [facility], [facility] HEMOGLOBIN AND HEMATOCRIT 2022-04-25 18:27:00 [facility], [facility] POCT-GLUCOSE METER 2022-04-25 16:29:00 Temo [facility] POCT-GLUCOSE METER 2022-04-25 13:09:00 Temo [facility] CBC (HEMOGRAM ONLY) 2022-04-25 13:07:00 [facility] PT/APTT 2022-04-25 13:07:00 Odilia Alanizkyjayla [facility] FIBRINOGEN 2022-04-25 13:07:00 [facility] CT CHEST WITHOUT IV 2022-04-25 10:14:00 Odilia Alaniz [facility] CBC (HEMOGRAM ONLY) 2022-04-25 09:33:00 Odilia Alaniz [facility] POCT-GLUCOSE METER 2022-04-25 08:07:00 Temo [facility] HEMATOCRIT-STAT LAB 2022-04-25 06:42:00 Arnulfo Duarte [facility] POCT-GLUCOSE METER 2022-04-25 05:58:00 Temo [facility] XR CHEST 1 VIEW PORTABLE / 2022-04-25 05:37:00 Sandra Mauricio obdulio [facility] TN INSERT 2022-04-25 05:10:52 Sloane, [facility] CATH,ART,PERCUT,SHORTTERM [facility] LACTIC ACID, VENOUS 2022-04-25 04:24:00 Jayce Mauricio [facility] I [facility] BLOOD GAS, VENOUS 2022-04-25 04:24:00 Luly [facility] PROTHROMBIN TIME/INR 2022-04-25 03:48:00 Jayce Mauricio [facility] APTT 2022-04-25 03:48:00 Jayce Mauricio [facility] FIBRINOGEN 2022-04-25 03:48:[address] [facility] BASIC METABOLIC PANEL 2022-04-25 03:06:00 GeraldArnulfo burch [facility] MAGNESIUM 2022-04-25 03:06:00 Gerald [facility] PHOSPHORUS 2022-04-25 03:06:00 Gerald [facility] CBC (HEMOGRAM ONLY) 2022-04-25 03:06:00 Gerald [facility] CALCIUM, IONIZED 2022-04-25 03:06:00 Clyde Mix [facility] HEPATIC FUNCTION PANEL 2022-04-25 03:06:00 Luly [facility] POCT-GLUCOSE METER 2022-04-25 02:11:00 Temo [facility] XR CHEST 1 VIEW PORTABLE / 2022-04-25 01:42:00 Odilia Alaniz [facility] BEDSIDE [facility] POCT-GLUCOSE METER 2022-04-24 23:52:00 Temo [facility] ECG 12-LEAD 2022-04-24 21:44:11 Unknown, Hl7 [facility] ECG 12-LEAD 2022-04-24 21:44:11 Unknown, Hl7 [facility] RRL CRITICAL LABS 2022-04-24 21:16:00 Odilia Alaniz [facility] (ABG,NA,K,H&H,GLUCOSE) Medical C enter BLOOD GAS, ARTERIAL 2022-04-24 21:16:00 [facility], [facility] SODIUM NA-STAT LAB 2022-04-24 21:16:00 Le, [facility] POTASSIUM-STAT LAB 2022-04-24 21:16:00 Le, [facility] GLUCOSE-STAT LAB 2022-04-24 21:16:00 Le, [facility] HGB/HCT (H&H) - STAT LAB 2022-04-24 21:16:00 Le, [facility] CALCIUM, IONIZED 2022-04-24 19:59:00 [place], [facility] LACTIC ACID, ARTERIAL 2022-04-24 19:59:00 [place], [facility] RRL CRITICAL LABS 2022-04-24 19:59:00 Odilia Alaniz [facility] (ABG,NA,K,H&H,GLUCOSE) Medical C enter BLOOD GAS, ARTERIAL 2022-04-24 19:59:00 Le, [facility] SODIUM NA-STAT LAB 2022-04-24 19:59:00 Le, [facility] POTASSIUM-STAT LAB 2022-04-24 19:59:00 Le, [facility] GLUCOSE-STAT LAB 2022-04-24 19:59:00 [facility]&H) - STAT LAB 2022-04-24 19:59:00 Le, [facility] BASIC METABOLIC PANEL 2022-04-24 19:52:00 [place], [facility] MAGNESIUM 2022-04-24 19:52:00 [place], [facility] CBC W/PLT COUNT & AUTO 2022-04-24 18:05:[address] [facility] RRL CRITICAL LABS 2022-04-24 18:05:00 [place], [facility] (ABG,NA,K,H&H,GLUCOSE) Medical C enter BLOOD GAS, ARTERIAL 2022-04-24 18:05:00 [facility] SODIUM NA-STAT LAB 2022-04-24 18:05:00 [facility] POTASSIUM-STAT LAB 2022-04-24 18:05:00 [facility] GLUCOSE-STAT LAB 2022-04-24 18:05:00 [facility], [facility] HGB/HCT (H&H) - STAT LAB 2022-04-24 18:05:00 [facility] CBC W/PLT COUNT & AUTO 2022-04-24 18:05:[address] [facility] (CELLAVISION MANUAL DIFF) 2022-04-24 18:05:00 Arnulfo Duarte [facility] XR CHEST 1 VIEW PORTABLE / 2022-04-24 15:54:[address] [facility] PROTHROMBIN TIME/INR 2022-04-24 15:47:00 [facility] APTT 2022-04-24 15:47:00 [facility] FIBRINOGEN 2022-04-24 15:47:00 [facility] OXYGEN SATURATION, 2022-04-24 15:47:00 [facility], [facility] LACTIC ACID, ARTERIAL 2022-04-24 15:47:00 [facility], [facility] CALCIUM, IONIZED 2022-04-24 15:46:00 [facility], [facility] CBC (HEMOGRAM ONLY) 2022-04-24 15:46:00 [facility] BASIC METABOLIC PANEL 2022-04-24 15:46:00 Arnulfo Duarte [facility] BLOOD GAS, ARTERIAL 2022-04-24 15:46:00 Gerald [facility] MAGNESIUM 2022-04-24 15:46:00 Gerald, [facility] PHOSPHORUS 2022-04-24 15:46:00 [facility] ANESTHESIA PERIPHERAL 2022-04-24 14:49:53 [facility] CRYOPRECIPITATE 2022-04-24 13:50:00 James [facility] RRL CRITICAL LABS 2022-04-24 13:47:[address] [facility] (ABG,NA,K,H&H,GLUCOSE) [facility] enter CALCIUM, IONIZED 2022-04-24 13:47:20 [facility] PROT[facility]/INR 2022-04-24 13:47:[address] [facility] APTT 2022-04-24 13:47:20 [facility] FIB[facility] 2022-04-24 13:47:20 [facility] PLATELET COUNT 2022-04-24 13:47:20 [facility] BLOOD GAS, ARTERIAL 2022-04-24 13:47:20 James [facility] SODIUM NA-STAT LAB 2022-04-24 13:47:20 [facility] POT[facility] 2022-04-24 13:47:20 [facility] GLUCOSE-STAT LAB 2022-04-24 13:47:20 [facility] HGB/HCT (H&H) - STAT LAB 2022-04-24 13:47:20 Angel Ramirez [facility] POCT-ACT 2022-04-24 13:35:00 [facility] PROT[facility]/INR 2022-04-24 13:31:[address] [facility] FIBRINOGEN 2022-04-24 13:31:25 [facility] POCT-ACT 2022-04-24 13:03:00 Temo [facility] RRL CRITICAL LABS 2022-04-24 13:02:[address] [facility] (ABG,NA,K,H&H,GLUCOSE) [facility] C enter CALCIUM, IONIZED 2022-04-24 13:02:09 [facility]/INR 2022-04-24 13:02:[address] [facility] APTT 2022-04-24 13:02:09 James [facility] FIBRINOGEN 2022-04-24 13:02:09 [facility] BLOOD GAS, ARTERIAL 2022-04-24 13:02:09 [facility] SODIUM NA-STAT LAB 2022-04-24 13:02:09 [facility] POTASSIUM-STAT LAB 2022-04-24 13:02:09 [facility] GLUCOSE-STAT LAB 2022-04-24 13:02:09 [facility] (H&H) - STAT LAB 2022-04-24 13:02:09 Angel Ramirez [facility] TRANSFUSE LEUKO-REDUCED 2022-04-24 12:50:00 Angel Ramirez [facility] I [facility] PLATELETS [facility] POCT-ACT 2022-04-24 12:02:00 Temo [facility] RRL CRITICAL LABS 2022-04-24 11:59:47 Odilia Alaniz [facility] (ABG,NA,K,H&H,GLUCOSE) Medical C enter BLOOD GAS, ARTERIAL 2022-04-24 11:59:47 Essie [facility] SODIUM NA-STAT LAB 2022-04-24 11:59:47 [facility] 2022-04-24 11:59:47 Essie [facility] GLUCOSE-STAT LAB 2022-04-24 11:59:47 [facility]/H[facility] (H&H) - STAT LAB 2022-04-24 11:59:47 [facility] POCT-ACT 2022-04-24 11:32:00 Sissy Plascencia [facility] RRL CRITICAL LABS 2022-04-24 11:29:33 Odilia Alaniz [facility] (ABG,NA,K,H&H,GLUCOSE) Medical C enter BLOOD GAS, ARTERIAL 2022-04-24 11:29:33 Essie [facility] SODIUM NA-STAT LAB 2022-04-24 11:29:33 Essie [facility] POTASSIUM-STAT LAB 2022-04-24 11:29:33 Essie [facility] GLUCOSE-STAT LAB 2022-04-24 11:29:33 [facility] HGB/HCT (H&H) - STAT LAB 2022-04-24 11:29:33 [facility] PLATELET COUNT 2022-04-24 11:23:11 Angel Ramirez [facility] MISCELLANEOUS LAB ORDER 2022-04-24 11:23:11 Angel Ramirez [facility] RRL CRITICAL LABS 2022-04-24 11:00:10 [facility] (ABG,NA,K,H&H,GLUCOSE) Medical C enter BLOOD GAS, ARTERIAL 2022-04-24 11:00:10 [facility]ie [facility] SODIUM NA-STAT LAB 2022-04-24 11:00:10 [facility] POT[facility]SI[facility]-STAT LAB 2022-04-24 11:00:10 Essie [facility] GLUCOSE-STAT LAB 2022-04-24 11:00:10 [facility] H[facility]/HCT (H&H) - STAT LAB 2022-04-24 11:00:10 Essie [facility] TRANSFUSE LEUKO-REDUCED 2022-04-24 11:00:00 Angel Ramirez [facility] I [facility] RED BLOOD CELLS [facility] POCT-ACT 2022-04-24 10:52:00 Temo [facility] RRL CRITICAL LABS 2022-04-24 10:50:28 Odilia Alaniz [facility] (ABG,NA,K,H&H,GLUCOSE) Medical C enter BLOOD GAS, ARTERIAL 2022-04-24 10:50:28 Essie, [facility] SODIUM NA-STAT LAB 2022-04-24 10:50:28 [facility] POTASSIUM-STAT LAB 2022-04-24 10:50:28 Essie, [facility] GLUCOSE-STAT LAB 2022-04-24 10:50:28 [facility] HGB/HCT (H&H) - STAT LAB 2022-04-24 10:50:28 [facility] ANESTHESIA LARS 2022-04-24 10:43:26 Radha Becerril [facility] POCT-ACT 2022-04-24 10:23:00 Temo [facility] RRL CRITICAL LABS 2022-04-24 10:22:17 Odilia Alaniz [facility] (ABG,NA,K,H&H,GLUCOSE) Medical C enter BLOOD GAS, ARTERIAL 2022-04-24 10:22:17 [facility] SODIUM NA-STAT LAB 2022-04-24 10:22:17 [facility] POTASSIUM-STAT LAB 2022-04-24 10:22:17 [facility] GLUCOSE-STAT LAB 2022-04-24 10:22:17 Essie [facility] HGB/HCT (H&H) - STAT LAB 2022-04-24 10:22:17 Essie [facility] POCT-ACT 2022-04-24 09:25:00 Sissy Plascencia [facility] TRANSFUSE LEUKO-REDUCED 2022-04-24 08:34:00 Angel Ramirez [facility] RED BLOOD CELLS [facility] RRL CRITICAL LABS 2022-04-24 08:01:56 James [facility] (ABG,NA,K,H&H,GLUCOSE) [facility] enter CALCIUM, IONIZED 2022-04-24 08:01:56 James [facility] BLOOD GAS, ARTERIAL 2022-04-24 08:01:56 James [facility] SODIUM NA-STAT LAB 2022-04-24 08:01:56 [place] [facility] POTASSIUM-STAT LAB 2022-04-24 08:01:56 James [facility] GLUCOSE-STAT LAB 2022-04-24 08:01:56 James [facility] HGB/HCT (H&H) - STAT LAB 2022-04-24 08:01:56 Angel Ramirez [facility] REPAIR, MITRAL VALVE 2022-04-24 07:14:00 Brito, Gus Mason [facility] REPAIR, TRICUSPID VALVE 2022-04-24 07:14:00 Brito, Gus Mason [facility] ABLATION,RADIOFREQUENCY 2022-04-24 07:14:00 Brito, Gus Mason [facility] CARDIAC-THORASCOPIC/ Medical [address] ter LAPAROSCOPIC APPROACH THORACOTOMY 2022-04-24 07:14:00 Brito, Gus Mason [facility] MAZE PROCEDURE, USING 2022-04-24 07:14:00 Brito, Gus Mason [facility] RADIOFREQUENCY ABLATION [facility] ECHOCARDIOGRAM, 3D, 2022-04-24 07:14:00 Brito, Gus R [facility] TRANSESOPHAGEAL [facility] SARS-COV2/RT-PCR ([facility] 2022-04-24 00:14:00 Clyde lorenzneth [facility] REF LABS) Medical [place] ECG 12-LEAD 2022-04-23 20:45:18 Anay Lemus [facility] ECG 12-LEAD 2022-04-23 20:45:18 Unknown, Hl7 [facility] ECG 12-LEAD 2022-04-23 20:44:44 Unknown, Hl7 [facility] ABORH, MANUAL 2022-04-23 18:26:00 Sonia Still [facility] PROTHROMBIN TIME/INR 2022-04-23 18:25:00 Anay Lemus [facility] APTT 2022-04-23 18:25:00 Anay Lemus [facility] CBC W/PLT COUNT & AUTO 2022-04-23 18:25:00 Anay Lemus [facility] CBC W/PLT COUNT & AUTO 2022-04-23 18:25:00 Anay Lemus [facility] DIFFERENTIAL [facility] R & L CATH / CORONARY 2022-04-23 09:59:00 Sissy Plascencia [facility] ANGIOS (+/- LV) [facility] ECG 12-LEAD 2022-04-23 07:57:40 Sissy Plascencia [facility] CARDIAC CATH REPORT - SCAN 2022-04-23 00:00:00 Oscar Riddle [facility] Scanning [facility] PROTHROMBIN TIME/INR 2022-04-22 11:13:00 Hamzah Forman [facility] COMPREHENSIVE METABOLIC 2022-04-22 11:13:00 Hamzah Forman [facility] PANEL [facility] CBC W/PLT COUNT & AUTO 2022-04-22 11:13:00 Hamzah Forman [facility] DIFFERENTIAL [facility] B-TYPE NATRIURETIC FACTOR 2022-04-22 11:13:[address] [facility] (BNP) [facility] TYPE AND SCREEN, AUTOMATED 2022-04-22 11:13:00 Hamzah Forman [facility] CBC W/PLT COUNT & AUTO 2022-04-22 11:13:00 [facility] DI[facility] SARS-COV2/RT-PCR ([facility] & 2022-04-22 10:53:00 Hamzah Forman [facility] REF LABS) [facility] CTA ABDOMEN & PELVIS 2022-04-16 09:00:00 Hamzah Forman [facility] CTA CHEST 2022-04-16 09:00:00 Hamzah Forman [facility] POCT-CREATININE 2022-04-16 08:45:00 Hamzah Forman [facility] CK 2013-06-29 10:52:00 [facility] Plan of Care Planned Activity Planned Date Details Comments Source Future Scheduled 2022-08-22 HEPATITIS B VACCINES [facility] Test 20:41:35 (1 of 3 - 3-dose series) [code = HEPATITIS B VACCINES (1 of 3 - 3-dose series)] Future Scheduled 2022-08-22 SHINGLES VACCINES (1 [facility] Test 20:41:35 of 2) [code = SHINGLES VACCINES (1 of 2)] Future Scheduled 2022-08-22 65[facility]OCOCCAL [facility] Test 20:41:35 VACCINE (1 - PCV) [code = 65+ PNEUMOCOCCAL VACCINE (1 - PCV)] Future Scheduled 2022-08-22 COVID-19 VACCINE (3 - [facility] 20:41:35 Booster for Pfizer series) [code = COVID-19 VACCINE (3 - Booster for Pfizer series)] Future Scheduled 2022-08-22 INFLUENZA VACCINE [facility] Test 20:41:35 [code = INFLUENZA VACCINE] Future Scheduled 2022-06-19 INFLUENZA VACCINE (#1) C [facility] Test 00:00:00 [code = INFLUENZA Medical Ce nter VACCINE (#1)] Future Scheduled 2021-10-[address] [facility] Test 00:00:00 (12+) [code = Medical Center DEPRESSION SCREENING (12+)] Future Scheduled 2021-10-19 FALLS RISK SCREENING [facility] Test 00:00:00 [code = FALLS RISK Medical C enter SCREENING] Future Scheduled 2021-10-19 Medicare IPPE (WELCOME [facility] 00:00:00 TO MEDICARE) [code = Medical Center Medicare IPPE (WELCOME TO MEDICARE)] Future Scheduled 2021-04-23 COVID-19 VACCINE (3 - [facility] 00:00:00 Booster for Pfizer Medical C enter series) [code = COVID-19 VACCINE (3 - Booster for Pfizer series)] Future Scheduled 2001 PNEUMOCOCCAL 65+ YRS [facility] Test 00:00:00 (1 - PCV) [code = Medical Ce nter PNEUMOCOCCAL 65+ YRS (1 - PCV)] Future Scheduled 1986 SHINGLES VACCINES ([address] [facility] Test 00:00:00 of 2) [code = SHINGLES Medic al Center VACCINES (1 of 2)] Future Scheduled 1955 DTAP/TDAP/TD VACCINES [facility] Test 00:00:00 (1 - Tdap) [code = Medical C enter DTAP/TDAP/TD VACCINES (1 - Tdap)] Encounters Start End Encounter Admission Attending Care Care Encounter Source Date/Time Date/Time Type Type Clinicians Facility Department ID 2022-04-10 Inpatient GUS FONSECA [facility] [id number] 09:11:07 2022-06-09 2022-06-[address] [facility] [id number] [facility] 00[facility]00[facility]00 [facility] 2022-05-28 2022-05-[address] [facility] [id number] 10:[facility]:00 10:15:00 Visit [facility] 2022-05-28 2022-05-28 Outpatient WARNER REBOLLAR [facility] [id number] SLE 09:34:35 09:34:35 2022-05-28 2022-05-28 Outpatient [facility] [id number] [facility] 00:00:00 00:00:00 2022-05-19 2022-05-[address] [facility] [id number] 00:[facility]00 00:00:00 Only [facility] 2022-04-23 2022-05-06 [facility] Temo Sissy [facility] [id number] [facility] 06:47:00 11:59:00 Encounter [facility] Gus Brito [facility] 2022-04-23 2022-05-06 Inpatient [facility] Surgery [id number] SLE 06:47:00 11:59:00 2022-04-26 2022-04-[address] [facility] [id number] 08:00:00 11:51:00 [facility] 2022-04-26 2022-04-[address] [facility] [id number] 08:35:00 10:44:00 Event [facility] 2022-04-24 2022-04-24 Outpatient [facility] [id number] [facility] 00:00:00 23:59:00 [facility] 2022-04-24 2022-04-[address] [facility] [id number] [facility] 07:35:00 15:21:00 Event Juan Burnham [facility] 2022-04-24 2022-04-[address] [facility] [id number] 07:30:00 14:19:00 [facility] 2022-04-23 2022-04-[address] [facility] [id number] 11:20:00 13:33:00 [facility] 2022-04-23 2022-04-23 Outpatient BCM BC [id number] [facility] 06:47:00 06:47:00 [facility] 2022-04-23 2022-04-23 Outpatient [facility] [id number] [facility] 06:47:00 06:47:00 [facility] 2022-04-22 2022-04-22 Outpatient EL [facility] [id number] [facility] 14:56:24 23:59:00 2022-04-22 2022-04-22 [facility] [id number] 14:30:00 23:59:00 Encounter [facility] 2022-04-22 2022-04-22 Outpatient EL SLE SLE [id number] [facility] 10:32:04 10:32:04 2022-04-22 2022-04-[address] [facility] [id number] 10:00:00 10:15:00 Visit GoreMoody [facility] 2022-04-16 2022-04-16 [facility] [id number] 07:50:52 23:59:00 Encounter Hamzah Correia [facility] 2022-04-16 2022-04-16 Outpatient MIMI [facility] [id number] [facility] 07:50:52 23:59:00 HAMZAH 2022-04-16 2022-04-16 [facility] [id number] 07:49:57 07:49:57 Encounter Hamzah Correia [facility] 2022-04-16 2022-04-16 Outpatient STAS COLUNGA [facility] [id number] [facility] 07:49:57 07:49:57 HAMZAH 2022-04-10 2022-04-10 [facility] [id number] 00:00:00 00:00:00 Only Hamzah Correia [facility] 2022-04-09 2022-04-[address] [facility] [id number] 10:30:00 11:00:00 Visit Hamzah Forman [facility] 2022-04-09 2022-04-09 Outpatient MIMI [facility] [id number] SLE 10:17:18 10:17:18 HAMZAH 2022-04-02 2022-04-02 Outpatient CHRISTOS Valladares OUTD [id number] [facility] 05:16:00 05:16:00 Chace 80 [facility] 2022-04-02 2022-04-02 Outpatient CHRISTOS Valladares [id number] [facility] 05:16:00 05:16:00 Chace [id number] [facility] 2021-02-08 2021-02-08 Outpatient Marlon MARCO IRENE [facility] [id number] [facility] 15:00:00 15:00:00 MARCO IRENE [facility] 2020-12-20 2020-12-20 Outpatient MARCO CISNEROS [facility] [id number] [facility] 00:00:00 00:00:00 MARCO IRENE [facility] 2020-11-24 2020-11-24 Outpatient [facility] [id number] [address] [place] [id number] 00:00:00 00:00:00 073 Method [facility] 2020-11-13 2020-11-13 Telephone Maria Victoria [place] [id number] 00:00:00 00:00:00 Marco Gao [id number] [place] [id number] Professio [id number] [address] 2020-11-03 2020-11-03 Outpatient [facility] [id number] [address] [place] 00:00:00 00:00:00 336 Method i 2020-11-02 2020-11-02 Office Maria Victoria [place] [id number] 14:12:48 16:16:50 Visit Marco Gao [id number] [place] [id number] Professio [id number] nal 092 [facility] 2020-11-02 2020-11-02 Outpatient R [facility] [id number] Univers 14:20:00 14:20:00 ity [facility] 2020-10-24 2020-10-24 Outpatient Marlon JOSHI [facility] [id number] Univers 11:00:00 11:00:00 RONAN rodriguez f [facility] 2020-09-11 2020-09-11 Outpatient MARCO CISNEROS [facility] [id number] Univers 15:00:00 15:00:00 MARIA VICTORIA MARCO mark [facility] 2020-08-19 2020-08-19 Emergency X KIANNA [facility] ERT [id number] Univers 09:20:00 09:20:00 IVAN russ [facility] 2020-05-23 2020-05-23 Outpatient HUST, [facility] [id number] [place] 00:00:00 00:00:00 DANE [address] 2020-05-23 2020-05-23 Outpatient HUST, [facility] [id number] [place] 00:00:00 00:00:00 DANE [address] 2019-12-02 2019-12-02 [id number] [facility] 12:15:00 12:15:00 Lobo [id number] [facility] 2013-06-29 2013-06-29 Outpatient ROYER COTTON [facility] [id number] 1 [facility] 09:24:46 09:24:46 JILL avila of Medicin e Results Test Description Test Time Test Comments Results Result Comments Source POC-Glucose meter 2022-05-06 08:07:07 Test Item Value Reference Range Interpretation Comme nts POC-Glucose Meter (test code = 84 mg/dL 70-110 : TESTED AT [facility] [facility] 1538) [facility], 770 30: Director Of Market Intelligence/Techni juan ID = [id number] for Claudio, Adriana Lab Interpretation (test code = Normal 62311-4) [facility] [id number] 08:07:07 Test Item Value Reference Range Interpretation Comments POC-GLUCOSE METER 84 mg/dL 70-110 : TESTED A T [facility] (BEAKER) (test code = BERTETHEL R [facility], 1538) 70134: Director Of Market Intelligence/Techni juan ID = [id number] for Chadnni os, Adriana RAD, CHEST, 1 VIEW, NON [id number] 07:22:00Reason for exam:->ptxShould this be performed at the bedside?->Yes [facility] : 1935 Sex: FFINAL REPORT CLINICAL HISTORY: ptx TECHNIQUE: 1 view of the chest. COMPARISON: 05/05/2022 IMPRESSION: The small right pneumothorax is unchanged. Patchy bilateral lower lung opacities are unchanged. A trace right effusion is unchanged. The cardiomediastinal silhouette is unchanged. Signed: Luis [facility] Verified Date/Time: 05/06/2022 07:22:15 Reading Location: [facility] Radiology Reading Room BASIC METABOLIC [id number] 07:01:04 Test Item Value Reference Range Interpretation Comments SODIUM (BEAKER) 132 meq/L 136-145 L (test code = 381) POTASSIUM (BEAKER) 4.0 meq/L 3.5-5.1 (test code = 379) CHLORIDE (BEAKER) 94 meq/L 98-107 L (test code = 382) CO2 (BEAKER) (test 31 meq/L 22-29 H code = 355) BLOOD UREA NITROGEN 11 mg/dL 7-21 (BEAKER) (test code = 354) CREATININE (BEAKER) 0.69 mg/dL 0.57-1.25 (test code = 358) GLUCOSE RANDOM 88 mg/dL 70-105 (BEAKER) (test code = 652) CALCIUM (BEAKER) 8.8 mg/dL 8.4-10.2 (test code = 697) EGFR (BEAKER) (test 81 mL/min/1.73 ESTIMA MINDA GFR IS code = 1092) sq m NOT ACCURATE CREATININE CLEARANCE IN PREDICTING GLOMERULAR FILTRATION RATE . ESTIMATED GFR I S NOT APPLICABLE FOR DIALYSIS PATIEN TS. Director Of Market Intelligence ID Brooklynn ARCHIBALD [id number] 07:01:04 Test Item Value Reference Range Interpretation Comments MAGNESIUM (BEAKER) (test code = 1.9 mg/dL 1.6-2.6 627) Director Of Market Intelligence ID Brooklynn ARCHIBALD WCBC (HEMOGRAM ONLY)2022-05-06 06:28:34 Test Item Value Reference Range Interpretation Comments WHITE BLOOD CELL COUNT (BEAKER) 12.1 K/ L 3.5-10.5 H (test code = 775) RED BLOOD CELL COUNT (BEAKER) 2.92 M/ L 3.93-5.22 L (test code = 761) HEMOGLOBIN (BEAKER) (test code = 8.6 GM/DL 11.2-15.7 L 410) HEMATOCRIT (BEAKER) (test code = 27.2 % 34.1-44.9 L 411) MEAN CORPUSCULAR VOLUME (BEAKER) 93.2 fL 79.4-94.8 (test code = 753) MEAN CORPUSCULAR HEMOGLOBIN 29.5 pg 25.6-32.2 (BEAKER) (test code = 751) MEAN CORPUSCULAR HEMOGLOBIN CONC 31.6 GM/DL 32.2-35.5 L (BEAKER) (test code = 752) RED CELL DISTRIBUTION WIDTH 16.0 % 11.7-14.4 H (BEAKER) (test code = 412) PLATELET COUNT (BEAKER) (test 359 K/CU MM 150-450 code = 756) MEAN PLATELET VOLUME (BEAKER) 8.7 fL 9.4-12.3 L (test code = 754) NUCLEATED RED BLOOD CELLS 0 /100 WBC 0-0 (BEAKER) (test code = 413) POCT-GLUCOSE [id number] 21:33:50 Test Item Value Reference Range Interpretation Comments POC-GLUCOSE METER 95 mg/dL 70-110 : TESTED A T [facility] 6720 (BEAKER) (test code = [place], 1538) 112[address]: Director Of Market Intelligence/Techni juan ID = [id number] for Sherri Haidre POCT-GLUCOSE [id number] 17:00:08 Test Item Value Reference Range Interpretation Comments POC-GLUCOSE METER 123 mg/dL 70-110 H : TESTED A T [facility] (test code = ELSI Mason [facility], 1538) 05952: Director Of Market Intelligence/Techni juan ID = [id number] for HU NTER, HIWITHA RAD, CHEST, 1 VIEW, NON [id number] 12:36:00Reason for exam:->R/o pneumothoraxShould this be performed at the bedside?->Yes [facility] 1935 Sex: FFINAL REPORT CLINICAL HISTORY: R/o pneumothorax TECHNIQUE: 1 view of the chest. COMPARISON: 05/04/2022 IMPRESSION: The small right pneumothorax is unchanged. Right chest wall subcutaneous emphysema is again seen. Mild bilateral lung opacities and small pleural effusions are unchanged. There is no significant cardiomegaly. Signed: Luis Conklin Verified Date/Time: 05/05/2022 12:36:46 Reading Location: [facility] Radiology Reading Room POCT- GLUCOSE [id number] 11:51:51 Test Item Value Reference Range Interpretation Comments POC-GLUCOSE METER 76 mg/dL 70-110 : TESTED A T [facility] 6720 ([facility]) (test code = ELSI Mason [facility], 1538) 44230: Director Of Market Intelligence/Techni juan ID = [id number] for LEIGH ER, HIWITHA POCT-GLUCOSE [id number] 07:27:49 Test Item Value Reference Range Interpretation Comments POC-GLUCOSE METER 84 mg/dL 70-110 : TESTED A T [facility] 6720 (BEAKER) (test code = [place], 1538) 89857: Director Of Market Intelligence/Techni juan ID = [id number] for [place] ER, HIWITHA BASIC METABOLIC [id number] 05:14:34 Test Item Value Reference Range Interpretation Comments SODIUM (BEAKER) 134 meq/L 136-145 L (test code = 381) POTASSIUM (BEAKER) 3.9 meq/L 3.5-5.1 (test code = 379) CHLORIDE (BEAKER) 95 meq/L 98-107 L (test code = 382) CO2 (BEAKER) (test 32 meq/L 22-29 H code = 355) BLOOD UREA NITROGEN 10 mg/dL 7-21 (BEAKER) (test code = 354) CREATININE (BEAKER) 0.66 mg/dL 0.57-1.25 (test code = 358) GLUCOSE RANDOM 91 mg/dL 70-105 (BEAKER) (test code = 652) CALCIUM (BEAKER) 8.7 mg/dL 8.4-10.2 (test code = 697) EGFR (BEAKER) (test 85 mL/min/1.73 ESTIMA MINDA GFR IS code = 1092) sq m NOT ACCURATE CREATININE CLEARANCE IN PREDICTING GLOMERULAR FILTRATION RATE . ESTIMATED GFR I S NOT APPLICABLE FOR DIALYSIS PATIEN TS. Director Of Market Intelligence ID - DRAGAN [id number] 05:14:34 Test Item Value Reference Range Interpretation Comments MAGNESIUM (BEAKER) (test code = 1.9 mg/dL 1.6-2.6 627) Director Of Market Intelligence ID - DRAGAN WCBC (HEMOGRAM ONLY)2022-05-05 04:29:36 Test Item Value Reference Range Interpretation Comments WHITE BLOOD CELL COUNT (BEAKER) 12.6 K/ L 3.5-10.5 H (test code = 775) RED BLOOD CELL COUNT (BEAKER) 3.01 M/ L 3.93-5.22 L (test code = 761) HEMOGLOBIN (BEAKER) (test code = 9.0 GM/DL 11.2-15.7 L 410) HEMATOCRIT (BEAKER) (test code = 27.9 % 34.1-44.9 L 411) MEAN CORPUSCULAR VOLUME (BEAKER) 92.7 fL 79.4-94.8 (test code = 753) MEAN CORPUSCULAR HEMOGLOBIN 29.9 pg 25.6-32.2 (BEAKER) (test code = 751) MEAN CORPUSCULAR HEMOGLOBIN CONC 32.3 GM/DL 32.2-35.5 (BEAKER) (test code = 752) RED CELL DISTRIBUTION WIDTH 16.0 % 11.7-14.4 H (BEAKER) (test code = 412) PLATELET COUNT (BEAKER) (test 352 K/CU MM 150-450 code = 756) MEAN PLATELET VOLUME (BEAKER) 8.8 fL 9.4-12.3 L (test code = 754) NUCLEATED RED BLOOD CELLS 0 /100 WBC 0-0 (BEAKER) (test code = 413) POCT-GLUCOSE [id number] 21:48:26 Test Item Value Reference Range Interpretation Comments POC-GLUCOSE METER 97 mg/dL 70-110 : TESTED A T [facility] 6720 (BEAKER) (test code = [facility], 1538) 27730: Director Of Market Intelligence/Techni juan ID = [id number] for Chelsea vicente Sherri POCT-GLUCOSE [id number] 17:44:55 Test Item Value Reference Range Interpretation Comments POC-GLUCOSE METER 85 mg/dL 70-110 : TESTED A T [facility] 6720 (BEAKER) (test code = [facility], 1538) 38452: Director Of Market Intelligence/Techni juan ID = [id number] for Terencejordon enriqueta Birdie RAD, CHEST, 1 VIEW, NON [id number] 14:47:00Reason for exam:->chest tube removalShould this be performed at the bedside?->Yes [facility] 1935 Sex: FFINAL REPORT Chest one view. Clinical history: chest tube removal Comparison: May 04, 2022 Discussion: A frontal chest is provided. Cardiomediastinal contours are unchanged. Right chest tube has been removed. A small right apical pneumothorax is unchanged. Unchanged right basilar streaky opacity probably reflects atelectasis. Small right effusion is again noted. Left lung is grossly clear. Signed: Luna Ann Verified Date/Time: 05/04/2022 14:47:19 Reading Location: [address] Consult Reading Room POCT-GLUCOSE [id number] 12:27:08 Test Item Value Reference Range Interpretation Comments POC-GLUCOSE METER 93 mg/dL 70-110 : TESTED A T [facility] 6720 (DESIRE) (test code = [place], 1538) [address]: Director Of Market Intelligence/Techni juan ID = [id number] for Birdie Betts RAD, CHEST, 1 VIEW, NON [id number] 09:09:00Reason for exam:->R/o pneumothoraxShould this be performed at the bedside?->Yes [facility] : 1935 Sex: FFINAL REPORT RAD, CHEST, 1 VIEW, NON DEPT INDICATION: R/o pneumothorax COMPARISON: Prior day's exam FINDINGS: Portable frontal view of the chest. IMPRESSION: Support Lines: Right chest tube. Lungs and pleura: Unchanged small right apical pneumothorax. Small right effusion. Heart and mediastinum: Stable contours. Additional findings: None. Signed: Kyara Marcus MDReport Verified Date/Time: 05/04/2022 09:09:00 POCT-GLUCOSE [id number] 08:56:25 Test Item Value Reference Range Interpretation Comments POC-GLUCOSE METER 118 mg/dL 70-110 H : TESTED A T [facility] (BEAKER) (test code = [place], 1538) [address]: Director Of Market Intelligence/Techni juan ID = [id number] for Birdie Alvarado BASIC METABOLIC [id number] 04:43:51 Test Item Value Reference Range Interpretation Comments SODIUM (BEAKER) 134 meq/L 136-145 L (test code = 381) POTASSIUM (BEAKER) 3.9 meq/L 3.5-5.1 (test code = 379) CHLORIDE (BEAKER) 96 meq/L 98-107 L (test code = 382) CO2 (BEAKER) (test 30 meq/L 22-29 H code = 355) BLOOD UREA NITROGEN 9 mg/dL 7-21 (BEAKER) (test code = 354) CREATININE (BEAKER) 0.64 mg/dL 0.57-1.25 (test code = 358) GLUCOSE RANDOM 87 mg/dL 70-105 (BEAKER) (test code = 652) CALCIUM (BEAKER) 8.7 mg/dL 8.4-10.2 (test code = 697) EGFR (BEAKER) (test 88 mL/min/1.73 ESTIMA MINDA GFR IS code = 1092) sq m NOT ACCURATE CREATININE CLEARANCE IN PREDICTING GLOMERULAR FILTRATION RATE . ESTIMATED GFR I S NOT APPLICABLE FOR DIALYSIS PATIEN TS. Director Of Market Intelligence ID - DELLA [id number] 04:43:51 Test Item Value Reference Range Interpretation Comments MAGNESIUM (BEAKER) (test code = 1.7 mg/dL 1.6-2.6 627) Director Of Market Intelligence ID - DELLA GCBC (HEMOGRAM ONLY)2022-05-04 04:09:42 Test Item Value Reference Range Interpretation Comments WHITE BLOOD CELL COUNT (BEAKER) 10.7 K/ L 3.5-10.5 H (test code = 775) RED BLOOD CELL COUNT (BEAKER) 2.97 M/ L 3.93-5.22 L (test code = 761) HEMOGLOBIN (BEAKER) (test code = 8.8 GM/DL 11.2-15.7 L 410) HEMATOCRIT (BEAKER) (test code = 27.6 % 34.1-44.9 L 411) MEAN CORPUSCULAR VOLUME (BEAKER) 92.9 fL 79.4-94.8 (test code = 753) MEAN CORPUSCULAR HEMOGLOBIN 29.6 pg 25.6-32.2 (BEAKER) (test code = 751) MEAN CORPUSCULAR HEMOGLOBIN CONC 31.9 GM/DL 32.2-35.5 L (BEAKER) (test code = 752) RED CELL DISTRIBUTION WIDTH 16.0 % 11.7-14.4 H (BEAKER) (test code = 412) PLATELET COUNT (BEAKER) (test 317 K/CU MM 150-450 code = 756) MEAN PLATELET VOLUME (BEAKER) 8.7 fL 9.4-12.3 L (test code = 754) NUCLEATED RED BLOOD CELLS 0 /100 WBC 0-0 (BEAKER) (test code = 413) POCT-GLUCOSE [id number] 21:36:15 Test Item Value Reference Range Interpretation Comments POC-GLUCOSE METER 123 mg/dL 70-110 H : TESTED A T [facility] 6720 (BEAKER) (test [facility] = [facility] 1538) [address]: Director Of Market Intelligence/Techni juan ID = [id number] for Sherri Wiseman POCT-GLUCOSE [id number] 17:15:07 Test Item Value Reference Range Interpretation Comments POC-GLUCOSE METER 99 mg/dL 70-110 : TESTED A T [facility] 6720 (BEAKER) (test code = [facility], 1538) 32391: Director Of Market Intelligence/Techni juan ID = [id number] for Birdie Betts RAD, CHEST, 1 VIEW, NON [id number] 13:29:00Reason for exam:->r/o pneumothoraxShould this be performed at the bedside?->Yes [facility] : 1935 Sex: FFINAL REPORT Chest one view. Clinical history: r/o pneumothorax Comparison: 05/02/2022 Discussion: A frontal chest is provided. Cardiomediastinal contours are unchanged. Lines and tubesare in stable position. Right-sided pneumothorax is without interval change. Unchanged atelectasis/consolidation in the medial right lower lung. No new airspace disease. No large effusion. Stable rightchest wall subcutaneous emphysema. Signed: Luna Ann Verified Date/Time: 05/03/2022 13:29:36Reading Location: [address] Consult Reading Room POCT- GLUCOSE [id number] 11:41:15 Test Item Value Reference Range Interpretation Comments POC-GLUCOSE METER 103 mg/dL 70-110 : TESTED A T [facility] 6720 (Zoomaal) (test code = NIRMALETHEL Marlon [facility], 1538) 99069: Director Of Market Intelligence/Techni juan ID = [id number] for Gi les, Adeja POCT-GLUCOSE [id number] 07:30:50 Test Item Value Reference Range Interpretation Comments POC-GLUCOSE METER 86 mg/dL 70-110 : TESTED A T [facility] 6720 (BEAKER) (test code = LESI R [facility], 1538) 34927: Director Of Market Intelligence/Techni juan ID = [id number] for Gile s, Adeja [id number] 06:26:15 Test Item Value Reference Range Interpretation Comments MAGNESIUM (BEAKER) (test code = 1.9 mg/dL 1.6-2.6 627) Director Of Market Intelligence ID - DELLA GBASIC METABOLIC [id number] 06:26:14 Test Item Value Reference Range Interpretation Comments SODIUM (BEAKER) 134 meq/L 136-145 L (test code = 381) POTASSIUM (BEAKER) 4.1 meq/L 3.5-5.1 (test code = 379) CHLORIDE (BEAKER) 93 meq/L 98-107 L (test code = 382) CO2 (BEAKER) (test 33 meq/L 22-29 H code = 355) BLOOD UREA NITROGEN 9 mg/dL 7-21 (BEAKER) (test code = 354) CREATININE (BEAKER) 0.64 mg/dL 0.57-1.25 (test code = 358) GLUCOSE RANDOM 84 mg/dL 70-105 (BEAKER) (test code = 652) CALCIUM (BEAKER) 9.1 mg/dL 8.4-10.2 (test code = 697) EGFR (BEAKER) (test 88 mL/min/1.73 ESTIMA MINDA GFR IS code = 1092) sq m NOT ACCURATE CREATININE CLEARANCE IN PREDICTING GLOMERULAR FILTRATION RATE . ESTIMATED GFR I S NOT APPLICABLE FOR DIALYSIS PATIEN TS. Director Of Market Intelligence ID - DELLA GCBC (HEMOGRAM ONLY)2022-05-03 06:10:08 Test Item Value Reference Range Interpretation Comments WHITE BLOOD CELL COUNT (BEAKER) 11.4 K/ L 3.5-10.5 H (test code = 775) RED BLOOD CELL COUNT (BEAKER) 3.13 M/ L 3.93-5.22 L (test code = 761) HEMOGLOBIN (BEAKER) (test code = 9.4 GM/DL 11.2-15.7 L 410) HEMATOCRIT (BEAKER) (test code = 29.5 % 34.1-44.9 L 411) MEAN CORPUSCULAR VOLUME (BEAKER) 94.2 fL 79.4-94.8 (test code = 753) MEAN CORPUSCULAR HEMOGLOBIN 30.0 pg 25.6-32.2 (BEAKER) (test code = 751) MEAN CORPUSCULAR HEMOGLOBIN CONC 31.9 GM/DL 32.2-35.5 L (BEAKER) (test code = 752) RED CELL DISTRIBUTION WIDTH 16.2 % 11.7-14.4 H (BEAKER) (test code = 412) PLATELET COUNT (BEAKER) (test 315 K/CU MM 150-450 code = 756) MEAN PLATELET VOLUME (BEAKER) 9.1 fL 9.4-12.3 L (test code = 754) NUCLEATED RED BLOOD CELLS 0 /100 WBC 0-0 (BEAKER) (test code = 413) POCT-GLUCOSE [id number] 21:16:35 Test Item Value Reference Range Interpretation Comments POC-GLUCOSE METER 101 mg/dL 70-110 : TESTED A T [facility] 6720 (BEAKER) (test code = ELSI Mason [place], 1538) 134[address]: Director Of Market Intelligence/Techni juan ID = [id number] for Sherri Wiseman POCT-GLUCOSE [id number] 16:51:48 Test Item Value Reference Range Interpretation Comments POC-GLUCOSE METER 83 mg/dL 70-110 : TESTED A T [facility] 6720 (BEAKER) (test code = [facility], 1538) 44481: Director Of Market Intelligence/Techni juan ID = [id number] for JEFFREY HALL 2D Echo W/Doppler(CW/PW/Color)2022-05-02 14:50:42Ejection FractionSLE ECHO HEARTLAB MKCKESSON [facility], NON DEPT 2022-05-02 14:10:00Reason for exam:->R/O pneumoShould this be performed at the bedside?->Yes [facility]BARBAR[facility]ISHA : 1935 Sex: FFINAL REPORT Chest AP portable Comparison exam: Earlier same day at 0643 hours History provided: Pneumothorax follow-up Right chest tube remains in place. Interim improvement in right pneumothorax, currently estimated at 15% by volume. Atelectatic change remains in the right lower lobe. Subcutaneous emphysema on the right is improved. Small left pleural effusion remains. Normal heart size and vascularity. Signed: Jose Ramon Soares MDReport Verified Date/Time: 05/02/2022 14:10:15 Reading Location: [facility] Radiology Reading Room RAD, CHEST, 1 VIEW, NON [id number] 13:14:00Reason for exam:->s/p CT surgeryShould this be performed at the bedside?->Yes [facility] : 1935 Sex: FFINAL REPORT RAD, CHEST, 1 VIEW, NON DEPT INDICATION: s/p CT surgery COMPARISON: Prior day's exam TECHNIQUE: Portable frontal view of the chest. FINDINGS: Support Lines and Devices: Stable. Lungs and pleura: Unchanged airspace and pleural opacities. Small to moderate pneumothorax with right-sided chest tube, similar to prior exam. Heart and mediastinum: Stable contours. Stable surgical changes. Additional findings: Soft tissue emphysema in the right chest wall. IMPRESSION: 1.Small tomoderate pneumothorax with right-sided chest tube, similar to prior exam.2. Blunting of the left costophrenic sulcus, which may represent pleural thickening/scarring or small pleural effusion. Signed: Darwin Yang MDReport Verified Date/Time: 05/02/2022 13:14:45 Reading Location: [place] [facility] Radiology Reading Room POCT-GLUCOSE [id number] 12:31:33 Test Item Value Reference Range Interpretation Comments POC-GLUCOSE METER 100 mg/dL 70-110 : TESTED A T [facility] 6720 (BEAKER) (test code = [facility], 1538) 31555: Director Of Market Intelligence/Techni juan ID = [id number] for Gabbi Roberts POCT-GLUCOSE [id number] 07:26:29 Test Item Value Reference Range Interpretation Comments POC-GLUCOSE METER 83 mg/dL 70-110 : TESTED A T [facility] 6720 (BEAKER) (test code = [facility], 1538) 62578: Director Of Market Intelligence/Techni juan ID = [id number] for JEFFREY HALL BASIC METABOLIC [id number] 06:08:27 Test Item Value Reference Range Interpretation Comments SODIUM (BEAKER) 134 meq/L 136-145 L (test code = 381) POTASSIUM (BEAKER) 4.3 meq/L 3.5-5.1 (test code = 379) CHLORIDE (BEAKER) 95 meq/L 98-107 L (test code = 382) CO2 (BEAKER) (test 33 meq/L 22-29 H code = 355) BLOOD UREA NITROGEN 9 mg/dL 7-21 (BEAKER) (test code = 354) CREATININE (BEAKER) 0.64 mg/dL 0.57-1.25 (test code = 358) GLUCOSE RANDOM 92 mg/dL 70-105 (BEAKER) (test code = 652) CALCIUM (BEAKER) 9.2 mg/dL 8.4-10.2 (test code = 697) EGFR (BEAKER) (test 88 mL/min/1.73 ESTIMA MINDA GFR IS code = 1092) sq m NOT ACCURATE CREATININE CLEARANCE IN PREDICTING GLOMERULAR FILTRATION RATE . ESTIMATED GFR I S NOT APPLICABLE FOR DIALYSIS PATIEN TS. Director Of Market Intelligence ID - DRAGAN [id number] 06:08:27 Test Item Value Reference Range Interpretation Comments MAGNESIUM (BEAKER) (test code = 1.7 mg/dL 1.6-2.6 627) Director Of Market Intelligence ID Brooklynn ARCHIBALD WCBC (HEMOGRAM ONLY)2022-05-02 05:59:25 Test Item Value Reference Range Interpretation Comments WHITE BLOOD CELL COUNT (BEAKER) 12.9 K/ L 3.5-10.5 H (test code = 775) RED BLOOD CELL COUNT (BEAKER) 3.18 M/ L 3.93-5.22 L (test code = 761) HEMOGLOBIN (BEAKER) (test code = 9.5 GM/DL 11.2-15.7 L 410) HEMATOCRIT (BEAKER) (test code = 30.1 % 34.1-44.9 L 411) MEAN CORPUSCULAR VOLUME (BEAKER) 94.7 fL 79.4-94.8 (test code = 753) MEAN CORPUSCULAR HEMOGLOBIN 29.9 pg 25.6-32.2 (BEAKER) (test code = 751) MEAN CORPUSCULAR HEMOGLOBIN CONC 31.6 GM/DL 32.2-35.5 L (BEAKER) (test code = 752) RED CELL DISTRIBUTION WIDTH 16.4 % 11.7-14.4 H (BEAKER) (test code = 412) PLATELET COUNT (BEAKER) (test 279 K/CU MM 150-450 code = 756) MEAN PLATELET VOLUME (BEAKER) 9.1 fL 9.4-12.3 L (test code = 754) NUCLEATED RED BLOOD CELLS 0 /100 WBC 0-0 (BEAKER) (test code = 413) POCT-GLUCOSE [id number] 21:26:19 Test Item Value Reference Range Interpretation Comments POC-GLUCOSE METER 106 mg/dL 70-110 : TESTED A T [facility] 6720 (BEAKER) (test code = [facility], 153) 93390: Director Of Market Intelligence/Techni juan ID = [id number] for JAVI SWENSON POCT-GLUCOSE [id number] 17:37:12 Test Item Value Reference Range Interpretation Comments POC-GLUCOSE METER 81 mg/dL 70-110 : TESTED A T [facility] 6720 (BEAKER) (test code = [facility] [place] [facility], 153) 25822: Director Of Market Intelligence/Techni juan ID = [id number] for SANTINO SADLER POCT-GLUCOSE [id number] 11:46:18 Test Item Value Reference Range Interpretation Comments POC-GLUCOSE METER 100 mg/dL 70-110 : TESTED A T [facility] 6720 (DESIRE) (test code = ELSI MONZON [place], 1538) [address]: Director Of Market Intelligence/Techni juan ID = [id number] for SANTINO SOLOMON RAD, CHEST, 1 VIEW, NON [id number] 10:08:00Reason for exam:->Shortness of breath after chest tube removal [facility] : 1935 Sex: FFINAL REPORT RAD, CHEST, 1 VIEW, NON DEPT INDICATION: Shortness of breath after chest tube removal COMPARISON: 05/01/2022 TECHNIQUE: Portable frontal view of the chest. FINDINGS: SupportLines and Devices: Stable. Lungs and pleura: Unchanged airspace and pleural opacities. Small right upper pneumothorax. Heart and mediastinum: Stable contours. Stable surgical changes. Additional findings: Soft tissues emphysema in the right chest wall. IMPRESSION: 1.No significant change from prior exam.2.Small right upper pneumothorax with right chest tube in place.3.Small left pleural effusion. Signed: Darwin Albright MDReport Verified Date/Time: 05/01/2022 10:08:33 Reading Location: [facility] Radiology Reading Room RAD, CHEST, 1 VIEW, NON [id number] 09:40:00Reason for exam:->s/p CT surgeryShould this be performed at the bedside?->[facility] : 1935 Sex: FFINAL REPORT RAD, CHEST, 1 VIEW, NON DEPT INDICATION: s/p CT surgery COMPARISON: Prior day's exam TECHNIQUE: Portable frontal view of the chest. FINDINGS: Support Lines and Devices: Stable. Lungs and pleura: Unchanged airspace and pleural opacities. Small right upper pneumothorax. Heart and mediastinum: Stable contours. Stable surgical changes. Additional findings: Lumbar fusion hardware is partially imaged. Subcutaneous emphysema in the right chest wall. IMPRESSION: 1.No significantchange from prior exam.2.Small right upper pneumothorax with right-sided chest tube.3.Blunting of the left costophrenic sulcus, which may represent pleural thickening/scarring or small pleural effusion.4.Soft tissue emphysema in the right chest wall Signed: Darwin Albright Verified Date/Time: 05/01/2022 09:40:35 Reading Location: [facility] Radiology Reading Room POCT-GLUCOSE [id number] 07:52:00 Test Item Value Reference Range Interpretation Comments POC-GLUCOSE METER 87 mg/dL 70-110 : TESTED A T [facility] 6720 (BEAKER) (test code = EL[place], 1538) [address]: Director Of Market Intelligence/Techni juan ID = [id number] for WILL S[place] BASIC METABOLIC [id number] 05:35:18 Test Item Value Reference Range Interpretation Comments SODIUM (BEAKER) 135 meq/L 136-145 L (test code = 381) POTASSIUM (BEAKER) 4.1 meq/L 3.5-5.1 (test code = 379) CHLORIDE (BEAKER) 96 meq/L 98-107 L (test code = 382) CO2 (BEAKER) (test 32 meq/L 22-29 H code = 355) BLOOD UREA NITROGEN 9 mg/dL 7-21 (BEAKER) (test code = 354) CREATININE (BEAKER) 0.66 mg/dL 0.57-1.25 (test code = 358) GLUCOSE RANDOM 98 mg/dL 70-105 (BEAKER) (test code = 652) CALCIUM (BEAKER) 8.9 mg/dL 8.4-10.2 (test code = 697) EGFR (BEAKER) (test 85 mL/min/1.73 ESTIMA MINDA GFR IS code = 1092) sq m NOT ACCURATE CREATININE CLEARANCE IN PREDICTING GLOMERULAR FILTRATION RATE . ESTIMATED GFR I S NOT APPLICABLE FOR DIALYSIS PATIEN TS. Director Of Market Intelligence ID - DELLA [id number] 05:35:18 Test Item Value Reference Range Interpretation Comments MAGNESIUM (BEAKER) (test code = 1.6 mg/dL 1.6-2.6 627) Director Of Market Intelligence ID - DELLA GCBC (HEMOGRAM ONLY)2022-05-01 05:02:18 Test Item Value Reference Range Interpretation Comments WHITE BLOOD CELL COUNT (BEAKER) 13.6 K/ L 3.5-10.5 H (test code = 775) RED BLOOD CELL COUNT (BEAKER) 3.04 M/ L 3.93-5.22 L (test code = 761) HEMOGLOBIN (BEAKER) (test code = 9.1 GM/DL 11.2-15.7 L 410) HEMATOCRIT (BEAKER) (test code = 28.6 % 34.1-44.9 L 411) MEAN CORPUSCULAR VOLUME (BEAKER) 94.1 fL 79.4-94.8 (test code = 753) MEAN CORPUSCULAR HEMOGLOBIN 29.9 pg 25.6-32.2 (BEAKER) (test code = 751) MEAN CORPUSCULAR HEMOGLOBIN CONC 31.8 GM/DL 32.2-35.5 L (BEAKER) (test code = 752) RED CELL DISTRIBUTION WIDTH 16.6 % 11.7-14.4 H (BEAKER) (test code = 412) PLATELET COUNT (BEAKER) (test 205 K/CU MM 150-450 code = 756) MEAN PLATELET VOLUME (BEAKER) 9.3 fL 9.4-12.3 L (test code = 754) NUCLEATED RED BLOOD CELLS 0 /100 WBC 0-0 (BEAKER) (test code = 413) POCT-GLUCOSE [id number] 21:29:06 Test Item Value Reference Range Interpretation Comments POC-GLUCOSE METER 115 mg/dL 70-110 H : TESTED A T [facility] 6720 (BEAKER) (test code = [facility], 1538) [address]: Director Of Market Intelligence/Techni juan ID = [id number] for REBECA SADLER SE POCT-GLUCOSE [id number] 17:31:57 Test Item Value Reference Range Interpretation Comments POC-GLUCOSE METER 94 mg/dL 70-110 : TESTED A T [facility] 6720 (Zoomaal) (test code = [facility], 1538) 07296: Director Of Market Intelligence/Techni juan ID = [id number] for Adriana Patel POCT-GLUCOSE [id number] 12:08:03 Test Item Value Reference Range Interpretation Comments POC-GLUCOSE METER 107 mg/dL 70-110 : TESTED A T [facility] 6720 (Zoomaal) (test code = [facility], 1538) 679[address]: Director Of Market Intelligence/Techni juan ID = [id number] for Denzel Rosales RAD, CHEST, 1 VIEW, NON [id number] 08:33:00Reason for exam:->s/p CT surgeryShould this be performed at the bedside?->Yes [facility] [place] : 1935 Sex: FFINAL REPORT CHEST AP PORTABLE Comparison exam: 04/29/2022 History provided: Follow-up after chest surgery Right chest tube unchanged in appearance. Right apical pneumothorax appears improved, currently estimated at 10-15% by volume. Basilar atelectatic change remains with small effusions. Subcutaneous emphysema on the right unchanged. Signed: Jose Ramon Soares Verified Date/Time: 04/30/2022 08:33:10 Reading Location: [facility] Diagnostic Imaging Reading Room - [facility] [address] [address] POCT-GLUCOSE [id number] 07:37:15 Test Item Value Reference Range Interpretation Comments POC-GLUCOSE METER 107 mg/dL 70-110 : TESTED A T [facility] 6720 (MIKEROBI) (test code = EL[place], 1538) [address]: Director Of Market Intelligence/Techni juan ID = [id number] for Denzel Rosales RAD, CHEST, 1 VIEW, NON [id number] 22:45:00Reason for exam:->post CT removal Should this be performed at the bedside?->Yes [facility] : 1935 Sex: FFINAL REPORT EXAM: Chest one view COMPARISON: April 29, 2022 CLINICAL HISTORY: Chest tube removal FINDINGS: The right chest tube appears unchanged in position. There is interval improvement in the right apical pneumothorax. Subcutaneous emphysema of the right chest wall again noted. Thecardiac size is within normal limits. The regional osseous structures are unchanged. Signed: Curtis Garzaeport Verified Date/Time: 04/29/2022 22:45:51 RAD, CHEST, 1 VIEW, NON [id number] 22:36:00Reason for exam:->right pleural chest tube removalShould this be performed at the bedside?->Yes [facility] : 1935 Sex: FFINAL REPORT EXAM: Chest one view COMPARISON: April 29, 2022 CLINICAL HISTORY: Right chest tube removal FINDINGS: The right chest tube is again noted without interval change in position.There is interval worsening in the right apical pneumothorax. Subcutaneous emphysema is again noted in the right chest wall. The cardiac size is within normal limits. The left lung is clear. The regional osseous structures are unremarkable. Signed: Curtis Garza MDReport Verified Date/Time: 04/29/2022 22:36:37 POCT-GLUCOSE [id number] 21:32:06 Test Item Value Reference Range Interpretation Comments POC-GLUCOSE METER 107 mg/dL 70-110 : TESTED A [facility] 6720 (Zoomaal) (test code = ELSI Mason [facility], 1538) [address]: Director Of Market Intelligence/Techni juan ID = [id number] for GALEN SANCHES POCT-GLUCOSE [id number] 16:27:06 Test Item Value Reference Range Interpretation Comments POC-GLUCOSE METER 79 mg/dL 70-110 : TESTED A T [facility] 6720 (Zoomaal) (test code = ELSI Mason [facility], 1538) 79[address]: Director Of Market Intelligence/Techni juan ID = [id number] for Kylee Olivera RAD, CHEST, 1 VIEW, NON [id number] 11:48:00Reason for exam:->post opShould this be performed at the bedside?->Yes [facility] : 1935 Sex: FFINAL REPORT RAD, CHEST, 1 VIEW, NON DEPT INDICATION: post op COMPARISON: Prior day's exam TECHNIQUE: Portable frontal view of the chest. FINDINGS: Support Lines and Devices: Stable. Lungs and pleura: Unchanged airspace and pleural opacities. Small right upper pneumothorax Heart and med iastinum: Stable contours. Stable surgical changes. Additional findings: Subjacent emphysema in the right chest wall. IMPRESSION: 1.Small right upper pneumothorax, decreased compared to prior exam, with two right-sided chest tubes in place.2.Small left pleural effusion. Signed: Darwin [facility] Verified Date/Time: 04/29/2022 11:48:25 Reading Location: [facility] Radiology Reading Room -GLUCOSE [id number] 11:10:43 Test Item Value Reference Range Interpretation Comments POC-GLUCOSE METER 80 mg/dL 70-110 : TESTED A T [facility] 6720 (BEAKER) (test code = ELSI Mason [facility], 1538) [address]: Director Of Market Intelligence/Techni juan ID = [id number] for Guerrero enriqueta Joie CBC W/PLT COUNT & AUTO [id number] 09:22:21 Test Item Value Reference Range Interpretation Comments WHITE BLOOD CELL COUNT (BEAKER) 11.7 K/ L 3.5-10.5 H (test code = 775) RED BLOOD CELL COUNT (BEAKER) 3.09 M/ L 3.93-5.22 L (test code = 761) HEMOGLOBIN (BEAKER) (test code = 9.3 GM/DL 11.2-15.7 L 410) HEMATOCRIT (BEAKER) (test code = 29.1 % 34.1-44.9 L 411) MEAN CORPUSCULAR VOLUME (BEAKER) 94.2 fL 79.4-94.8 (test code = 753) MEAN CORPUSCULAR HEMOGLOBIN 30.1 pg 25.6-32.2 (BEAKER) (test code = 751) MEAN CORPUSCULAR HEMOGLOBIN CONC 32.0 GM/DL 32.2-35.5 L (BEAKER) (test code = 752) RED CELL DISTRIBUTION WIDTH 17.7 % 11.7-14.4 H (BEAKER) (test code = 412) PLATELET COUNT (BEAKER) (test 150 K/CU MM 150-450 code = 756) MEAN PLATELET VOLUME (BEAKER) 9.2 fL 9.4-12.3 L (test code = 754) NUCLEATED RED BLOOD CELLS 0 /100 WBC 0-0 (BEAKER) (test code = 413) (CELLAVISION MANUAL DIFF)2022-04-29 09:22:21 Test Item Value Reference Range Interpretation Comments NEUTROPHILS - REL 71 % (CELLAVISION)(BEAKER) (test code = 2816) LYMPHOCYTES - REL 9 % (CELLAVISION)(BEAKER) (test code = 2817) MONOCYTES - REL 16 % (CELLAVISION)(BEAKER) (test code = 2818) EOSINOPHILS - REL 3 % (CELLAVISION)(BEAKER) (test code = 2819) BASOPHILS - REL 1 % (CELLAVISION)(BEAKER) (test code = 2820) NEUTROPHILS - ABS 8.31 K/ul 1.56-6.13 H (CELLAVISION)(BEAKER) (test code = 2830) LYMPHOCYTES - ABS 1.05 K/ul 1.18-3.74 L (CELLAVISION)(BEAKER) (test code = 2831) MONOCYTES - ABS 1.87 K/uL 0.24-0.36 H (CELLAVISION)(BEAKER) (test code = 2832) EOSINOPHILS - ABS 0.35 K/uL 0.04-0.36 (CELLAVISION)(BEAKER) (test code = 2834) BASOPHILS - ABS 0.12 K/uL 0.01-0.08 H (CELLAVISION)(BEAKER) (test code = 2835) TOTAL COUNTED (BEAKER) (test code = 100 1351) WBC MORPHOLOGY (BEAKER) (test code Normal = 487) PLT MORPHOLOGY (BEAKER) (test code Normal = 486) POLYCHROMATOPHILLIC RBCS(BEAKER) 1+ few (test code = 478) ANISOCYTOSIS (BEAKER) (test code = 1+ few 961) MICROCYTES (BEAKER) (test code = 1+ few 965) MACROCYTES (BEAKER) (test code = 1+ few 964) POIKILOCYTES (BEAKER) (test code = 3+ many 966) SPHEROCYTES (BEAKER) (test code = 1+ few 768) OVALOCYTES (BEAKER) (test code = 1+ few 477) NGUYỄN CELLS (BEAKER) (test code = 3+ many 474) ARTIFACT (CELLAVISION)(BEAKER) Present (test code = 3432) PLATELET CONCENTRATION Adequate (CELLAVISION)(BEAKER) (test code = 3438) Director Of Market Intelligence ID - Noel comments: Slide comments:POCT-GLUCOSE [id number] 07:10:50 Test Item Value Reference Range Interpretation Comments POC-GLUCOSE METER 91 mg/dL 70-110 : TESTED A T [facility] 6720 (BEAKER) (test code = [place], 1538) [address]: Director Of Market Intelligence/Techni juan ID = [id number] for Armaan charles (contract)Angelo BASIC METABOLIC [id number] 04:56:58 Test Item Value Reference Range Interpretation Comments SODIUM (BEAKER) 136 meq/L 136-145 (test code = 381) POTASSIUM (BEAKER) 3.8 meq/L 3.5-5.1 (test code = 379) CHLORIDE (BEAKER) 101 meq/L 98-107 (test code = 382) CO2 (BEAKER) (test 29 meq/L 22-29 code = 355) BLOOD UREA NITROGEN 14 mg/dL 7-21 (BEAKER) (test code = 354) CREATININE (BEAKER) 0.59 mg/dL 0.57-1.25 (test code = 358) GLUCOSE RANDOM 87 mg/dL 70-105 (BEAKER) (test code = 652) CALCIUM (BEAKER) 8.6 mg/dL 8.4-10.2 (test code = 697) EGFR (BEAKER) (test 97 mL/min/1.73 ESTIMA MINDA GFR IS code = 1092) sq m NOT ACCURATE CREATININE CLEARANCE IN PREDICTING GLOMERULAR FILTRATION RATE . ESTIMATED GFR I S NOT APPLICABLE FOR DIALYSIS PATIEN TS. Director Of Market Intelligence ID - PIPAVAN [id number] 04:56:58 Test Item Value Reference Range Interpretation Comments MAGNESIUM (BEAKER) (test code = 1.7 mg/dL 1.6-2.6 627) Director Of Market Intelligence ID - PIPAVAN [id number] 04:56:58 Test Item Value Reference Range Interpretation Comments PHOSPHORUS (BEAKER) (test code = 2.5 mg/dL 2.3-4.7 604) Director Of Market Intelligence ID - PIPAVAN LCALCIUM, [id number] 04:51:14 Test Item Value Reference Range Interpretation Comments CALCIUM IONIZED (BEAKER) (test 1.16 mmol/L 1.12-1.27 code = 698) PH, BLOOD (BEAKER) (test code = 7.38 1810) POCT-GLUCOSE [id number] 01:42:33 Test Item Value Reference Range Interpretation Comments POC-GLUCOSE METER 82 mg/dL 70-110 : TESTED A T [facility] 6720 (BEAKER) (test code = [facility], 1538) [address]: Director Of Market Intelligence/Techni juan ID = [id number] for Scarlett Matthews POCT-GLUCOSE [id number] 16:36:01 Test Item Value Reference Range Interpretation Comments POC-GLUCOSE METER 85 mg/dL 70-110 : TESTED A T [facility] 6720 (BEAKER) (test code = [facility], 1538) 54962: Director Of Market Intelligence/Techni juan ID = [id number] for STARLA RSON, ZANE RAD, CHEST, 1 VIEW, NON [id number] 15:36:00Reason for exam:->assess for R ptx after chest tubes place to water seal in setting of air leakShould this be performed at the bedside?->Yes [facility] 1935 Sex: FAddendum BeginsREPORT STATUS:A The above findings were discussed with nurse Shereen Chaney, who acknowledged the findings, on 04/28/2022 at 3:33 PM. Signed: Darwin Albright VerifiedDate/Time: 04/28/2022 15:36:39 Reading Location: [facility] Radiology Reading RoomAddendum EndsFINAL REPORT RAD, CHEST, 1 VIEW, NON DEPT INDICATION: assess for R ptx after chesttubes place to water seal in setting of air leak COMPARISON: 04/28/2022 TECHNIQUE: Portable frontal view of the chest. FINDINGS: Support Lines and Devices: Stable. Lungs and pleura: Unchanged airspace and pleural opacities. Small to moderate right upper pneumothorax, new since prior exam. Heart and medi astinum: Stable contours. Stable surgical changes. Additional findings: None. IMPRESSION: 1.New small to moderate right upper pneumothorax. Right-sided chest tubes again seen.2.Small left pleural effusion.3.Left retrocardiac opacity, representing singly or in combination airspace disease, atelectasis,or pleural effusion. Signed: Darwin Albright Verified Date/Time: 04/28/2022 15:33:04 Reading Location: [facility] Radiology Reading Room POCT-GLUCOSE [id number] 12:00:43 Test Item Value Reference Range Interpretation Comments POC-GLUCOSE METER 88 mg/dL 70-110 : Notified RN/MD: TESTED (DESIRE) (test code = AT [facility] 6720 GE 1538) [facility], [address]: Director Of Market Intelligence/Techni juan ID = [id number] for Luna Browne RAD, CHEST, 1 VIEW, NON [id number] 09:43:00Reason for exam:->post opShould this be performed at the bedside?->Yes [facility] : 1935 Sex: FFINAL REPORT RAD, CHEST, 1 VIEW, NON DEPT INDICATION: post op COMPARISON: Prior day's exam TECHNIQUE: Portable frontal view of the chest. FINDINGS: Support Lines and Devices: The right IJ Lincoln-Albert catheter was removed. Lungs and pleura: Unchanged airspace and pleural opacities. No pneu mothorax identified. Heart and mediastinum: Stable contours. Stable surgical changes. Additional findings: None. IMPRESSION: 1.Two right-sided chest tubes without pneumothorax identified.2.Left retrocardiac opacity, representing singly or in combination airspace disease, atelectasis, or pleural effusion.3.Small left pleural effusion. Signed: Darwin Albright MDReport Verified Date/Time: 04/28/2022 09:43:34 Reading Location: [facility] Radiology Reading Room CBC W/PLT COUNT & AUTO [id number] 07:27:01 Test Item Value Reference Range Interpretation Comments WHITE BLOOD CELL COUNT (BEAKER) 14.7 K/ L 3.5-10.5 H (test code = 775) RED BLOOD CELL COUNT (BEAKER) 3.21 M/ L 3.93-5.22 L (test code = 761) HEMOGLOBIN (BEAKER) (test code = 9.8 GM/DL 11.2-15.7 L 410) HEMATOCRIT (BEAKER) (test code = 30.2 % 34.1-44.9 L 411) MEAN CORPUSCULAR VOLUME (BEAKER) 94.1 fL 79.4-94.8 (test code = 753) MEAN CORPUSCULAR HEMOGLOBIN 30.5 pg 25.6-32.2 (BEAKER) (test code = 751) MEAN CORPUSCULAR HEMOGLOBIN CONC 32.5 GM/DL 32.2-35.5 (BEAKER) (test code = 752) RED CELL DISTRIBUTION WIDTH 18.4 % 11.7-14.4 H (BEAKER) (test code = 412) PLATELET COUNT (BEAKER) (test 132 K/CU MM 150-450 L code = 756) MEAN PLATELET VOLUME (BEAKER) 9.1 fL 9.4-12.3 L (test code = 754) NUCLEATED RED BLOOD CELLS 0 /100 WBC 0-0 (BEAKER) (test code = 413) (CELLAVISION MANUAL DIFF)2022-04-28 07:27:01 Test Item Value Reference Range Interpretation Comments NEUTROPHILS - REL 83 % (CELLAVISION)(BEAKER) (test code = 2816) LYMPHOCYTES - REL 11 % (CELLAVISION)(BEAKER) (test code = 2817) MONOCYTES - REL 6 % (CELLAVISION)(BEAKER) (test code = 2818) NEUTROPHILS - ABS 12.20 K/ul 1.56-6.13 H (CELLAVISION)(BEAKER) (test code = 2830) LYMPHOCYTES - ABS 1.62 K/ul 1.18-3.74 (CELLAVISION)(BEAKER) (test code = 2831) MONOCYTES - ABS 0.88 K/uL 0.24-0.36 H (CELLAVISION)(BEAKER) (test code = 2832) TOTAL COUNTED (BEAKER) (test code 100 = 1351) PLT MORPHOLOGY (BEAKER) (test Normal code = 486) SMUDGE CELLS (BEAKER) (test code Present = 1371) ANISOCYTOSIS (BEAKER) (test code 1+ few = 961) MACROCYTES (BEAKER) (test code = 1+ few 964) POIKILOCYTES (BEAKER) (test code 2+ moderate = 966) SPHEROCYTES (BEAKER) (test code = 1+ few 768) OVALOCYTES (BEAKER) (test code = 1+ few 477) NGUYỄN CELLS (BEAKER) (test code = 2+ moderate 474) PLATELET CONCENTRATION Decreased (CELLAVISION)(BEAKER) (test code = 3438) Director Of Market Intelligence GONZALO Mcnealo-onUser comments: Slide comments:[id number] 04:46:08 Test Item Value Reference Range Interpretation Comments PHOSPHORUS (BEAKER) 2.2 mg/dL 2.3-4.7 L Specimen slightly (test code = 604) hemolyzed Director Of Market Intelligence GONZALO Overton DRAGAN WBASIC METABOLIC [id number] 04:46:08 Test Item Value Reference Range Interpretation Comments SODIUM (BEAKER) 135 meq/L 136-145 L (test code = 381) POTASSIUM (BEAKER) 4.5 meq/L 3.5-5.1 Specimen slightly (test code = 379) hemolyzed CHLORIDE (BEAKER) 103 meq/L 98-107 (test code = 382) CO2 (BEAKER) (test 25 meq/L 22-29 code = 355) BLOOD UREA NITROGEN 13 mg/dL 7-21 (BEAKER) (test code = 354) CREATININE (BEAKER) 0.64 mg/dL 0.57-1.25 Specimen slightly (test code = 358) hemolyzed GLUCOSE RANDOM 103 mg/dL 70-105 (BEAKER) (test code = 652) CALCIUM (BEAKER) 8.8 mg/dL 8.4-10.2 (test code = 697) EGFR (BEAKER) (test 88 mL/min/1.73 ESTIMA MINDA GFR IS code = 1092) sq m NOT ACCURATE CREATININE CLEARANCE IN PREDICTING GLOMERULAR FILTRATION RATE . ESTIMATED GFR I S NOT APPLICABLE FOR DIALYSIS PATIEN TS. Director Of Market Intelligence ID Brooklynn DRAGAN [id number] 04:46:07 Test Item Value Reference Range Interpretation Comments MAGNESIUM (AKER) 2.0 mg/dL 1.6-2.6 Specimen slightly (test code = 627) hemolyzed Director Of Market Intelligence ID - DRAGAN WCALCIUM, [id number] 04:06:50 Test Item Value Reference Range Interpretation Comments CALCIUM IONIZED ([facility]) (test 1.17 mmol/L 1.12-1.27 code = 698) PH, BLOOD ([facility]) (test code = 7.35 1810) POCT-GLUCOSE [id number] 00:18:38 Test Item Value Reference Range Interpretation Comments POC-GLUCOSE METER 105 mg/dL 70-110 : TESTED A T [facility] 6720 ([facility]) (test code = [facility], 153) [address]: Director Of Market Intelligence/Techni juan ID = [id number] for Bubba marcus (contract) Janet kim Lilian [id number] 23:54:00 Test Item Value Reference Range Interpretation Comments CROSSMATCH (test code = 2264) COMPATIBLE Unit ABO (test code = O Pos 9320091) UNIT NUMBER (test code = [id number] 934-0) Status (test code = 7758832) [facility] Blood [facility] Product (test code RED BLOOD CELLS = 2263) PRODUCT CODE (test code = F1546F45 933-2) [facility] [id number] 18:08:29 Test Item Value Reference Range Interpretation Comments POC-GLUCOSE METER 163 mg/dL 70-110 H : TESTED A T [facility] 6720 ([facility]) (test code = [facility], 153) [address]: Director Of Market Intelligence/Techni juan ID = [id number] for Mckay lala (contract)Felix POCT-GLUCOSE [id number] 11:14:41 Test Item Value Reference Range Interpretation Comments POC-GLUCOSE METER 144 mg/dL 70-110 H : Notified RN/MD: ([facility]) (test code = TESTED AT [facility] 6720 1538) [facility], [address]: Director Of Market Intelligence/Techni juan ID = [id number] for Vargas Tavarez (CELLAVISION MANUAL DIFF)2022-04-27 09:28:58 Test Item Value Reference Range Interpretation Comments NEUTROPHILS - REL 88 % (CELLAVISION)(BEAKER) (test code = 2816) LYMPHOCYTES - REL 5 % (CELLAVISION)(BEAKER) (test code = 2817) MONOCYTES - REL 4 % (CELLAVISION)(BEAKER) (test code = 2818) BANDS - REL (CELLAVISION)(BEAKER) 3 % 0-10 (test code = 2826) NEUTROPHILS - ABS 10.91 K/ul 1.56-6.13 H (CELLAVISION)(BEAKER) (test code = 2830) LYMPHOCYTES - ABS 0.62 K/ul 1.18-3.74 L (CELLAVISION)(BEAKER) (test code = 2831) MONOCYTES - ABS 0.50 K/uL 0.24-0.36 H (CELLAVISION)(BEAKER) (test code = 2832) BANDS - ABS (CELLAVISION)(BEAKER) 0.37 K/uL 0.00-0.80 (test code = 2840) TOTAL COUNTED (BEAKER) (test code 100 = 1351) WBC MORPHOLOGY (BEAKER) (test code Normal = 487) PLT MORPHOLOGY (BEAKER) (test code Normal = 486) ANISOCYTOSIS (BEAKER) (test code = 1+ few 961) POIKILOCYTES (BEAKER) (test code = 1+ few 966) ARTIFACT (CELLAVISION)(BEAKER) Present (test code = 3432) PLATELET CONCENTRATION Decreased (CELLAVISION)(BEAKER) (test code = 3438) Director Of Market Intelligence ID - Norma OverholtUser comments: Slide comments:CBC W/PLT COUNT & AUTO [id number] 09:28:57 Test Item Value Reference Range Interpretation Comments WHITE BLOOD CELL COUNT (BEAKER) 12.4 K/ L 3.5-10.5 H (test code = 775) RED BLOOD CELL COUNT (BEAKER) 2.95 M/ L 3.93-5.22 L (test code = 761) HEMOGLOBIN (BEAKER) (test code = 8.9 GM/DL 11.2-15.7 L 410) HEMATOCRIT (BEAKER) (test code = 26.9 % 34.1-44.9 L 411) MEAN CORPUSCULAR VOLUME (BEAKER) 91.2 fL 79.4-94.8 (test code = 753) MEAN CORPUSCULAR HEMOGLOBIN 30.2 pg 25.6-32.2 (BEAKER) (test code = 751) MEAN CORPUSCULAR HEMOGLOBIN CONC 33.1 GM/DL 32.2-35.5 (BEAKER) (test code = 752) RED CELL DISTRIBUTION WIDTH 18.1 % 11.7-14.4 H (BEAKER) (test code = 412) PLATELET COUNT (BEAKER) (test 109 K/CU MM 150-450 L code = 756) MEAN PLATELET VOLUME (BEAKER) 9.6 fL 9.4-12.3 (test code = 754) NUCLEATED RED BLOOD CELLS 0 /100 WBC 0-0 (BEAKER) (test code = 413) RAD, CHEST, 1 VIEW, NON [id number] 08:19:00Reason for exam:->post opShould this be performed at the bedside?->Yes [facility] 1935 Sex: FFINAL REPORT RAD, CHEST, 1 VIEW, NON DEPT INDICATION: post op COMPARISON: Prior day's exam FINDINGS: Portable frontal view of the chest. IMPRESSION: Support Lines: Right chest tubes. Lincoln-Albert tip overlies the pulmonary outflow tract. Lungs and pleura: Small bilateral effusions and brenton cent atelectasis. Unchanged small right apical pneumothorax. Heart and mediastinum: Stable contours.Stable surgical changes. Additional findings: None. Signed: Kyara Marcus MDReport Verified Date/Time: 04/27/2022 08:19:36 -GLUCOSE [id number] 07:49:42 Test Item Value Reference Range Interpretation Comments POC-GLUCOSE METER 121 mg/dL 70-110 H : Notified RN/MD: (BEAKER) (test code = TESTED AT [facility] [id number]) [facility], [id number]: Director Of Market Intelligence/Techni juan ID = [id number] for Pa ppas, Laura [id number] 06:55:59 Test Item Value Reference Range Interpretation Comments PHOSPHORUS (BEAKER) (test code = 2.9 mg/dL 2.3-4.7 604) Director Of Market Intelligence ID - THERESA MBASIC METABOLIC [id number] 06:55:58 Test Item Value Reference Range Interpretation Comments SODIUM (BEAKER) 133 meq/L 136-145 L (test code = 381) POTASSIUM (BEAKER) 4.3 meq/L 3.5-5.1 (test code = 379) CHLORIDE (BEAKER) 103 meq/L 98-107 (test code = 382) CO2 (BEAKER) (test 25 meq/L 22-29 code = 355) BLOOD UREA NITROGEN 13 mg/dL 7-21 (BEAKER) (test code = 354) CREATININE (BEAKER) 0.60 mg/dL 0.57-1.25 (test code = 358) GLUCOSE RANDOM 135 mg/dL 70-105 H (BEAKER) (test code = 652) CALCIUM (BEAKER) 8.5 mg/dL 8.4-10.2 (test code = 697) EGFR (BEAKER) (test 95 mL/min/1.73 ESTIMA MINDA GFR IS code = 1092) sq m NOT ACCURATE CREATININE CLEARANCE IN PREDICTING GLOMERULAR FILTRATION RATE . ESTIMATED GFR I S NOT APPLICABLE FOR DIALYSIS PATIEN TS. Director Of Market Intelligence ID - THERESA [id number] 06:55:58 Test Item Value Reference Range Interpretation Comments MAGNESIUM (BEAKER) (test code = 1.9 mg/dL 1.6-2.6 627) Director Of Market Intelligence ID - THERESA MOXYGEN SATURATION, [id number] 06:20:51 Test Item Value Reference Range Interpretation Comments O2 SATURATION (MEASURED) (BEAKER) 79.0 % (test code = 1455) Blood gas, [id number] 06:16:43 Test Item Value Reference Range Interpretation Comments pH, Arterial (test code 7.39 7.35-7.45 = 2744-1) pCO2, Arterial (test 42 See_Comment [Autom ated code = 2019-8) message] The system which generated this result transmitted reference range : 35 - 45 mm Hg. The reference range was not used to interpret this result as normal/abnormal . pO2, Arterial (test 189 See_Comment H [Automa minda code = 2703-7) message] The system which generated this result transmitted reference range : 80 - 90 mm Hg. The reference range was not used to interpret this result as normal/abnormal . O2 Sat, Arterial (test 99.3 % 96.0-97.0 H code = 2708-6) HCO3, Arterial (test 25 mmol/L 21-29 code = 1960-4) Base Excess, Arterial -0.2 mmol/L -2.0-3.0 (test code = 1925-7) Patient Temperature 37.1 (test code = 8310-5) FIO2 (test code = 1819) 36 Lab Interpretation Abnormal (test code = 42649-6) [facility] [id number] 06:16:43 Test Item Value Reference Range Interpretation Comments PH ARTERIAL (BEAKER) (test code = 7.39 7.35-7.45 383) PCO2 ARTERIAL (BEAKER) (test code 42 mm Hg 35-45 = 384) PO2 ARTERIAL (BEAKER) (test code 189 mm Hg 80-90 H = 385) O2 SATURATION ARTERIAL (BEAKER) 99.3 % 96.0-97.0 H (test code = 386) HCO3 ARTERIAL (BEAKER) (test code 25 mmol/L 21-29 = 388) BASE EXCESS ARTERIAL (BEAKER) -0.2 mmol/L -2.0-3.0 (test code = 387) PATIENT TEMPERATURE (BEAKER) 37.1 (test code = 1818) FIO2 (BEAKER) (test code = 1819) 36.0 CALCIUM, [id number] 06:16:43 Test Item Value Reference Range Interpretation Comments CALCIUM IONIZED (BEAKER) (test 1.11 mmol/L 1.12-1.27 L code = 698) PH, BLOOD (BEAKER) (test code = 7.39 1810) POCT-GLUCOSE [id number] 00:36:03 Test Item Value Reference Range Interpretation Comments POC-GLUCOSE METER 133 mg/dL 70-110 H : TESTED A T [facility] 6720 (BEAKER) (test code [place], = 1538) [address]: Director Of Market Intelligence/Techni juan ID = [id number] for CADI ANG, GLORINEIL Prepare Leuko-Red [id number] 23:54:00 Test Item Value Reference Range Interpretation Comments CROSSMATCH (test code = 2264) COMPATIBLE Unit ABO (test code = O Pos 2341107) UNIT NUMBER (test code = [id number] 934-0) Status (test code = 3360146) TX_TIMEINCHART Blood Bank Product (test code RED BLOOD CELLS = 2263) PRODUCT CODE (test code = U0505V61 933-2) [facility], 1 VIEW, NON [id number] 21:54:00Reason for exam:->CT with new air leak - rightShould this be performed at the bedside?->[facility] : 1935 Sex: FFINAL REPORT RAD, CHEST, 1 VIEW, NON DEPT INDICATION: CT with new air leak - right COMPARISON: Exam from eight hours prior FINDINGS: Portable frontal view of the chest. IMPRESSION: Support Lines: Stable pulmonary arterial catheter. Right-sided chest tubes are in place. Lungs and pleura: Unchanged bilateral airspace and pleural opacities. No pneumothorax. Heart and mediastinum: Stablecontours. Additional findings: None. Signed: Kita Blanco Verified Date/Time: 04/26/2022 21:54:36 HEMOGLOBIN AND [id number] 20:43:14 Test Item Value Reference Range Interpretation Comments HEMOGLOBIN (BEAKER) (test code = 9.4 GM/DL 11.2-15.7 L 410) HEMATOCRIT (BEAKER) (test code = 28.1 % 34.1-44.9 L 411) Director Of Market Intelligence ID - [id number]-GLUCOSE [id number] 17:37:48 Test Item Value Reference Range Interpretation Comments POC-GLUCOSE METER 191 mg/dL 70-110 H : TESTED A T [facility] 6720 (BEAKER) (test code = ELSI [place], 1538) [address]: Director Of Market Intelligence/Techni juan ID = [id number] for Telma pina (contract), Ran ei RAD, CHEST, 1 VIEW, NON [id number] 12:57:00Reason for exam:->post washout, eval hemothoraxShould this be performed at the bedside?->Yes [facility] : 1935 Sex: FFINAL REPORT TECHNIQUE: Frontal view of the chest. INDICATION: post washout, eval hemothorax. COMPARISON: 04/26/2022 at 1:47 AM and 04/25/2022 at 5:37 AM. FINDINGS: LINES/TUBES: Right IJ Lincoln-Albert catheter remains unchanged. There is been interval placement of the second right-sided chest tube directed more towards the right lung apex. HEART AND MEDIASTINUM: Cardiomediastinal contour is stable. LUNGS: Improved aeration of the right upper lobe. Residual right basilar atelectatic change. No pulmonary edema. PLEURA: Decrease in size of right apical pleural fusion. 4 mm right apical pneumothorax. SOFT TISSUES AND BONES: Unremarkable. IMPRESSION:1. Placement of a second right-sided chest tube directed towards the right lung apex with decrease in size of pleural fluid within the right superior hemithorax. 4 mm right apical pneumothorax.2. Improved aeration of the right lung. Residual rightbasilar atelectatic change. No overt edema. Signed: Joanie Luis MDReport Verified Date/Time: 04/26/2022 12:57:33 Prepare [id number] 11:43:00 Test Item Value Reference Range Interpretation Comments Unit ABO (test code = O Pos 0717394) UNIT NUMBER (test code = [id number] 934-0) Status (test code = RETURNED FROM ISSUE 9223687) Blood Bank Product (test FFP code = 2263) PRODUCT CODE (test code = Z7758L53 933-2) [facility]ysOXYGEN SATURATION, [id number] 11:30:33 Test Item Value Reference Range Interpretation Comments O2 SATURATION (MEASURED) (BEAKER) 74.9 % (test code = 1455) [id number] 11:25:52 Test Item Value Reference Range Interpretation Comments PHOSPHORUS (BEAKER) (test code = 2.8 mg/dL 2.3-4.7 604) Director Of Market Intelligence ID - THERESA MBASIC METABOLIC [id number] 11:25:51 Test Item Value Reference Range Interpretation Comments SODIUM (BEAKER) 135 meq/L 136-145 L (test code = 381) POTASSIUM (BEAKER) 4.1 meq/L 3.5-5.1 (test code = 379) CHLORIDE (BEAKER) 106 meq/L 98-107 (test code = 382) CO2 (BEAKER) (test 24 meq/L 22-29 code = 355) BLOOD UREA NITROGEN 14 mg/dL 7-21 (BEAKER) (test code = 354) CREATININE (BEAKER) 0.69 mg/dL 0.57-1.25 (test code = 358) GLUCOSE RANDOM 122 mg/dL 70-105 H (BEAKER) (test code = 652) CALCIUM (BEAKER) 9.3 mg/dL 8.4-10.2 (test code = 697) EGFR (BEAKER) (test 81 mL/min/1.73 ESTIMA MINDA GFR IS code = 1092) sq m NOT ACCURATE CREATININE CLEARANCE IN PREDICTING GLOMERULAR FILTRATION RATE . ESTIMATED GFR I S NOT APPLICABLE FOR DIALYSIS PATIEN TS. Director Of Market Intelligence ID - THERESA [id number] 11:25:51 Test Item Value Reference Range Interpretation Comments MAGNESIUM (BEAKER) (test code = 2.0 mg/dL 1.6-2.6 627) Director Of Market Intelligence ID - THERESA MLactic Acid, [id number] 11:20:10 Test Item Value Reference Range Interpretation Comments Lactate, Art (test code = 0.7 mmol/L 0.5-2.2 2874) MISHA (test code = MISHA) Director Of Market Intelligence ID - THERESA M Lab Interpretation (test Normal code = 16622-9) [facility]ysLACTIC ACID, [id number] 11:20:10 Test Item Value Reference Range Interpretation Comments LACTATE BLOOD ARTERIAL (2) 0.7 mmol/L 0.5-2.2 (BEAKER) (test code = 2874) Director Of Market Intelligence ID - THERESA [id number] 11:18:48 Test Item Value Reference Range Interpretation Comments PROTIME (BEAKER) (test 14.8 seconds 11.9-14.2 H code = 759) INR (BEAKER) (test 1.18 See_Comment [Automat ed code = 370) message] The sy stem which generated this result transmitted reference range : <=5.90. The reference range was not used to interpret this result as normal/abnormal . PARTIAL THROMBOPLASTIN 29.8 seconds 22.5-36.0 TIME (BEAKER) (test code = 760) RECOMMENDED COUMADIN/WARFARIN INR THERAPY RANGESSTANDARD DOSE: 2.0 - 3.0 Includes: PROPHYLAXIS for venous thrombosis, systemic embolization; TREATMENT for venous thrombosis and/or pulmonary embolus.HIGH RISK: Target INR is 2.5-3.5 for patients with mechanical heart valves.[id number] 11:18:47 Test Item Value Reference Range Interpretation Comments FIBRINOGEN LEVEL (BEAKER) (test 405 mg/dl 225-434 code = 658) BLOOD GAS, [id number] 11:14:34 Test Item Value Reference Range Interpretation Comments PH ARTERIAL (BEAKER) (test code = 7.34 7.35-7.45 L 383) PCO2 ARTERIAL (BEAKER) (test code 46 mm Hg 35-45 H = 384) PO2 ARTERIAL (BEAKER) (test code 115 mm Hg 80-90 H = 385) O2 SATURATION ARTERIAL (BEAKER) 97.9 % 96.0-97.0 H (test code = 386) HCO3 ARTERIAL (BEAKER) (test code 24 mmol/L 21-29 = 388) BASE EXCESS ARTERIAL (BEAKER) -1.8 mmol/L -2.0-3.0 (test code = 387) PATIENT TEMPERATURE (BEAKER) 36.9 (test code = 1818) FIO2 (BEAKER) (test code = 1819) 40.0 CALCIUM, [id number] 11:14:28 Test Item Value Reference Range Interpretation Comments CALCIUM IONIZED (BEAKER) (test 1.24 mmol/L 1.12-1.27 code = 698) PH, BLOOD (BEAKER) (test code = 7.34 1810) CBC (HEMOGRAM ONLY)2022-04-26 11:06:11 Test Item Value Reference Range Interpretation Comments WHITE BLOOD CELL COUNT (BEAKER) 14.2 K/ L 3.5-10.5 H (test code = 775) RED BLOOD CELL COUNT (BEAKER) 3.36 M/ L 3.93-5.22 L (test code = 761) HEMOGLOBIN (BEAKER) (test code = 9.9 GM/DL 11.2-15.7 L 410) HEMATOCRIT (BEAKER) (test code = 30.4 % 34.1-44.9 L 411) MEAN CORPUSCULAR VOLUME (BEAKER) 90.5 fL 79.4-94.8 (test code = 753) MEAN CORPUSCULAR HEMOGLOBIN 29.5 pg 25.6-32.2 (BEAKER) (test code = 751) MEAN CORPUSCULAR HEMOGLOBIN CONC 32.6 GM/DL 32.2-35.5 (BEAKER) (test code = 752) RED CELL DISTRIBUTION WIDTH 17.5 % 11.7-14.4 H (BEAKER) (test code = 412) PLATELET COUNT (BEAKER) (test code 96 K/CU MM 150-450 L = 756) MEAN PLATELET VOLUME (BEAKER) 9.4 fL 9.4-12.3 (test code = 754) NUCLEATED RED BLOOD CELLS (BEAKER) 0 /100 WBC 0-0 (test code = 413) CALCIUM, [id number] 09:26:35 Test Item Value Reference Range Interpretation Comments CALCIUM IONIZED (BEAKER) (test 1.10 mmol/L 1.12-1.27 L code = 698) PH, BLOOD (BEAKER) (test code = 7.48 1810) HGB/HCT (H&H)-Stat [id number] 09:26:34 Test Item Value Reference Range Interpretation Comments Hemoglobin (test code = 8.2 See_Comment L [Au tomated message] 786-4) The system [employer] generated this result transmitted ref erence range: 12.0 - 1 5.0 GM/DL. The refe rence range was not u sed to interpret this result as normal/abnor mal. Hematocrit (test code = 24.0 % 36.0-45.0 L 4544-3) Lab Interpretation (test Abnormal code = 12935-1) [facility] [id number] 09:26:34 Test Item Value Reference Range Interpretation Comments Sodium (test code = 2951-2) 133 meq/L 136-145 L Lab Interpretation (test code = Abnormal 45882-5) [facility] CenterOD[facility] NA-STAT [id number] 09:26:34 Test Item Value Reference Range Interpretation Comments SODIUM (BEAKER) (test code = 381) 133 meq/L 136-145 L HGB/HCT (H&H) - STAT [id number] 09:26:34 Test Item Value Reference Range Interpretation Comments HEMOGLOBIN (BEAKER) (test code = 8.2 GM/DL 12.0-15.0 L 410) HEMATOCRIT (BEAKER) (test code = 24.0 % 36.0-45.0 L 411) BLOOD GAS, [id number] 09:26:33 Test Item Value Reference Range Interpretation Comments PH ARTERIAL (BEAKER) (test code = 7.49 7.35-7.45 H 383) PCO2 ARTERIAL (BEAKER) (test code 32 mm Hg 35-45 L = 384) PO2 ARTERIAL (BEAKER) (test code = 166 mm Hg 80-90 H 385) O2 SATURATION ARTERIAL (BEAKER) 99.3 % 96.0-97.0 H (test code = 386) HCO3 ARTERIAL (BEAKER) (test code 24 mmol/L 21-29 = 388) BASE EXCESS ARTERIAL (BEAKER) 0.4 mmol/L -2.0-3.0 (test code = 387) PATIENT TEMPERATURE (BEAKER) (test 36.6 code = 1818) FIO2 (BEAKER) (test code = 1819) 60.0 Glucose-Stat [id number] 09:26:21 Test Item Value Reference Range Interpretation Comments Glucose (test code = 2345-7) 105 mg/dL 70-110 Lab Interpretation (test code = Normal 09135-5) [facility]assium[facility]Stat [id number] 09:26:21 Test Item Value Reference Range Interpretation Comments Potassium (test code = 2823-3) 3.7 meq/L 3.6-5.5 Lab Interpretation (test code = Normal 88792-8) [facility]GLUCOSE-STAT [id number] 09:26:21 Test Item Value Reference Range Interpretation Comments GLUCOSE RANDOM (BEAKER) (test code 105 mg/dL 70-110 = 652) POTASSIUM-STAT [id number] 09:26:21 Test Item Value Reference Range Interpretation Comments POTASSIUM (BEAKER) (test code = 3.7 meq/L 3.6-5.5 379) RAD, CHEST, 1 VIEW, NON [id number] 07:33:00while patient is intubated or has chest tubes.Reason for exam:->Status post CV SurgeryShould thisbe performed at the bedside?->Yes [facility] : 1935 Sex: FFINAL REPORT RAD, CHEST, 1 VIEW, NON DEPT INDICATION: Status post CV Surgery COMPARISON: Prior day's exam FINDINGS: Portable frontal view of the chest. IMPRESSION: Support Lines: Lincoln-Albert tip overlies the right pulmonary outflow tract. Right chest tube. Lungs and pleura: Loculated right hemothorax is better demonstrated on prior CT. Opacity within the right upper lung persists. Smallpneumothorax component is not well seen on current radiograph. Heart and mediastinum: Stable contours. Stable surgical changes. Additional findings: None. Signed: Kyara Marcuszaira Verified Date/Time: 04/26/2022 07:33:47 -GLUCOSE [id number] 06:00:43 Test Item Value Reference Range Interpretation Comments POC-GLUCOSE METER 113 mg/dL 70-110 H : TESTED A T [facility] 6720 (BEAKER) (test code = ELSI Mason [facility], 1538) [address]: Director Of Market Intelligence/Techni juan ID = [id number] for KEVYN SALGUERO [id number] 03:10:22 Test Item Value Reference Range Interpretation Comments PHOSPHORUS (BEAKER) (test code = 2.9 mg/dL 2.3-4.7 604) Director Of Market Intelligence ID - THERESA MBASIC METABOLIC [id number] 03:10:21 Test Item Value Reference Range Interpretation Comments SODIUM (BEAKER) 137 meq/L 136-145 (test code = 381) POTASSIUM (BEAKER) 3.9 meq/L 3.5-5.1 (test code = 379) CHLORIDE (BEAKER) 105 meq/L 98-107 (test code = 382) CO2 (BEAKER) (test 25 meq/L 22-29 code = 355) BLOOD UREA NITROGEN 15 mg/dL 7-21 (BEAKER) (test code = 354) CREATININE (BEAKER) 0.65 mg/dL 0.57-1.25 (test code = 358) GLUCOSE RANDOM 127 mg/dL 70-105 H (BEAKER) (test code = 652) CALCIUM (BEAKER) 8.6 mg/dL 8.4-10.2 (test code = 697) EGFR (BEAKER) (test 87 mL/min/1.73 ESTIMA MINDA GFR IS code = 1092) sq m NOT ACCURATE CREATININE CLEARANCE IN PREDICTING GLOMERULAR FILTRATION RATE . ESTIMATED GFR I S NOT APPLICABLE FOR DIALYSIS PATIEN TS. Director Of Market Intelligence ID - THERESA [id number] 03:10:21 Test Item Value Reference Range Interpretation Comments MAGNESIUM (BEAKER) (test code = 1.6 mg/dL 1.6-2.6 627) Director Of Market Intelligence ID - THERESA MCBC (HEMOGRAM ONLY)2022-04-26 02:27:34 Test Item Value Reference Range Interpretation Comments WHITE BLOOD CELL COUNT (BEAKER) 12.8 K/ L 3.5-10.5 H (test code = 775) RED BLOOD CELL COUNT (BEAKER) 2.58 M/ L 3.93-5.22 L (test code = 761) HEMOGLOBIN (BEAKER) (test code = 8.1 GM/DL 11.2-15.7 L 410) HEMATOCRIT (BEAKER) (test code = 23.4 % 34.1-44.9 L 411) MEAN CORPUSCULAR VOLUME (BEAKER) 90.7 fL 79.4-94.8 (test code = 753) MEAN CORPUSCULAR HEMOGLOBIN 31.4 pg 25.6-32.2 (BEAKER) (test code = 751) MEAN CORPUSCULAR HEMOGLOBIN CONC 34.6 GM/DL 32.2-35.5 (BEAKER) (test code = 752) RED CELL DISTRIBUTION WIDTH 17.6 % 11.7-14.4 H (BEAKER) (test code = 412) PLATELET COUNT (BEAKER) (test 102 K/CU MM 150-450 L code = 756) MEAN PLATELET VOLUME (BEAKER) 9.7 fL 9.4-12.3 (test code = 754) NUCLEATED RED BLOOD CELLS 0 /100 WBC 0-0 (BEAKER) (test code = 413) CALCIUM, [id number] 02:18:11 Test Item Value Reference Range Interpretation Comments CALCIUM IONIZED (BEAKER) (test 1.13 mmol/L 1.12-1.27 code = 698) PH, BLOOD (BEAKER) (test code = 7.45 1810) POCT-GLUCOSE [id number] 00:01:48 Test Item Value Reference Range Interpretation Comments POC-GLUCOSE METER 131 mg/dL 70-110 H : TESTED A T [facility] 6720 (BEAKER) (test code = EL[place], 1538) [address]: Director Of Market Intelligence/Techni juan ID = [id number] for KEVYN SALGUERO Prepare [id number] 23:54:00 Test Item Value Reference Range Interpretation Comments Unit ABO (test code = O Pos 6199840) UNIT NUMBER (test code = [id number] 934-0) Status (test code = 6403612) TX_TIMEINCHART Blood Bank Product (test code CRYOPRECIPITATE = 2263) PRODUCT CODE (test code = M4920J24 933-2) [facility]ysPrepare [id number] 23:54:00 Test Item Value Reference Range Interpretation Comments Unit ABO (test code = 9688820) O Pos UNIT NUMBER (test code = [id number] 934-0) Status (test code = 2786557) TX_TIMEINCHART Blood Bank Product (test code PLATELETS = 2263) PRODUCT CODE (test code = T3201C25 933-2) [facility]ysBASIC METABOLIC [id number] 19:28:22 Test Item Value Reference Range Interpretation Comments SODIUM (BEAKER) 137 meq/L 136-145 (test code = 381) POTASSIUM (BEAKER) 4.0 meq/L 3.5-5.1 Specimen slightly (test code = 379) hemolyzed CHLORIDE (BEAKER) 106 meq/L 98-107 (test code = 382) CO2 (BEAKER) (test 26 meq/L 22-29 code = 355) BLOOD UREA NITROGEN 15 mg/dL 7-21 (BEAKER) (test code = 354) CREATININE (BEAKER) 0.68 mg/dL 0.57-1.25 Specimen slightly (test code = 358) hemolyzed GLUCOSE RANDOM 169 mg/dL 70-105 H (BEAKER) (test code = 652) CALCIUM (BEAKER) 8.7 mg/dL 8.4-10.2 (test code = 697) EGFR (BEAKER) (test 82 mL/min/1.73 ESTIMA MINDA GFR IS code = 1092) sq m NOT ACCURATE CREATININE CLEARANCE IN PREDICTING GLOMERULAR FILTRATION RATE . ESTIMATED GFR I S NOT APPLICABLE FOR DIALYSIS PATIEN TS. Director Of Market Intelligence ID - HGLACTIC ACID, [id number] 18:55:34 Test Item Value Reference Range Interpretation Comments LACTATE BLOOD ARTERIAL (2) 0.9 mmol/L 0.5-2.2 (BEAKER) (test code = 2874) Director Of Market Intelligence ID - HGOXYGEN SATURATION, [id number] 18:44:34 Test Item Value Reference Range Interpretation Comments O2 SATURATION (MEASURED) (BEAKER) 60.5 % (test code = 1455) HEMOGLOBIN AND [id number] 18:42:34 Test Item Value Reference Range Interpretation Comments HEMOGLOBIN (BEAKER) (test code = 8.5 GM/DL 11.2-15.7 L 410) HEMATOCRIT (BEAKER) (test code = 24.5 % 34.1-44.9 L 411) Director Of Market Intelligence ID - [id number]-GLUCOSE [id number] 16:41:19 Test Item Value Reference Range Interpretation Comments POC-GLUCOSE METER 147 mg/dL 70-110 H : [facility] (test code [facility], = 1538) [address]: Director Of Market Intelligence/Techni juan ID = [id number] for Jim rizo (contract)Aaron michael PT/[id number] 13:29:52 Test Item Value Reference Range Interpretation Comments PROTIME (BEAKER) (test 16.0 seconds 11.9-14.2 H code = 759) INR (BEAKER) (test 1.30 See_Comment [Automat ed code = 370) message] The sy stem which generated this result transmitted reference range : <=5.90. The reference range was not used to interpret this result as normal/abnormal . PARTIAL THROMBOPLASTIN 31.5 seconds 22.5-36.0 TIME (BEAKER) (test code = 760) RECOMMENDED COUMADIN/WARFARIN INR THERAPY RANGESSTANDARD DOSE: 2.0 - 3.0 Includes: PROPHYLAXIS for venous thrombosis, systemic embolization; TREATMENT for venous thrombosis and/or pulmonary embolus.HIGH RISK: Target INR is 2.5-3.5 for patients with mechanical heart valves.[id number] 13:29:31 Test Item Value Reference Range Interpretation Comments FIBRINOGEN LEVEL (BEAKER) (test 380 mg/dl 225-434 code = 658) POCT-GLUCOSE [id number] 13:25:47 Test Item Value Reference Range Interpretation Comments POC-GLUCOSE METER 124 mg/dL 70-110 H : [facility] ([facility], = 1538) [address]: Director Of Market Intelligence/Techni juan ID = [id number] for Jim rizo (contract)Aaron CBC (HEMOGRAM ONLY)2022-04-25 13:20:13 Test Item Value Reference Range Interpretation Comments WHITE BLOOD CELL COUNT (BEAKER) 13.3 K/ L 3.5-10.5 H (test code = 775) RED BLOOD CELL COUNT (BEAKER) 2.99 M/ L 3.93-5.22 L (test code = 761) HEMOGLOBIN (BEAKER) (test code = 9.1 GM/DL 11.2-15.7 L 410) HEMATOCRIT (BEAKER) (test code = 26.7 % 34.1-44.9 L 411) MEAN CORPUSCULAR VOLUME (BEAKER) 89.3 fL 79.4-94.8 (test code = 753) MEAN CORPUSCULAR HEMOGLOBIN 30.4 pg 25.6-32.2 (BEAKER) (test code = 751) MEAN CORPUSCULAR HEMOGLOBIN CONC 34.1 GM/DL 32.2-35.5 (BEAKER) (test code = 752) RED CELL DISTRIBUTION WIDTH 17.2 % 11.7-14.4 H (BEAKER) (test code = 412) PLATELET COUNT (BEAKER) (test 110 K/CU MM 150-450 L code = 756) MEAN PLATELET VOLUME (BEAKER) 10.4 fL 9.4-12.3 (test code = 754) NUCLEATED RED BLOOD CELLS 0 /100 WBC 0-0 (BEAKER) (test code = 413) RAD, CHEST, 1 VIEW, NON [id number] 12:41:00while patient is intubated or has chest tubes.Reason for exam:->Status post CV SurgeryShould thisbe performed at the bedside?->Yes [facility] : 1935 Sex: FFINAL REPORT RAD, CHEST, 1 VIEW, NON DEPT INDICATION: Status post CV Surgery COMPARISON: Prior day's exam FINDINGS: Portable frontal view of the chest. IMPRESSION: Support Lines: Lincoln-Albert tip overlies the right main pulmonary artery. Right chest tube. Lungs and pleura: Dense consolidation within the right upper lung is unchanged. No significant pneumothorax. Heart and mediastinum: Stable contours. Stable surgical changes. Additional findings: None. Signed: Kyara Marcus Verified Date/Time: 04/25/2022 12:41:59 Reading Location: [facility] Radiology Reading Room [id number] 12:02:08 Test Item Value Reference Range Interpretation Comments Scan Result (test code = See scanned report [id number]) MISHA (test code = MISHA) See scanned report [facility]ysMISCELL[facility] LAB [id number] 12:02:08 Test Item Value Reference Range Interpretation Comments SCAN RESULT (test code = See scanned report [id number]) See scanned reportCT, CHEST, WITHOUT [id number] 11:18:00Unlisted Reason for Exam - Click Yes and Enter Reason Below->YesUnlisted Reason for Exam- >s/p CT surgery, concern for [facility]orax [facility] : 1935 Sex: FFINAL REPORT CT, CHEST, WITHOUT CONTRAST INDICATION: Pleural effusions/p CT surgery,concern for hemothorax COMPARISON: CTA chest 04/16/2022 TECHNIQUE: CT, CHEST, WITHOUT CONTRAST. This exam was performed according to our departmental dose optimization program which includes automated exposure control, adjustment of the mA and/or kV according to patient size and/or use of iterative bobby nstruction technique. FINDINGS: Lungs: Compressive atelectatic changes in the right upper lobe from hemothorax. Streaky and consolidative right lower lobe opacity dependently. Mild subsegmental left lower lobe atelectatic changes. A few calcified pulmonary nodules related to old granulomatous disease Central airways: Patent.Pleura: A moderate-sized loculated right hemothorax, fluid mostly at the right apex. A trace left pleural effusion which is low-density layering posteriorly. A right-sided chest tube and a small right pneumothoraxLymph nodes: Suboptimal evaluation of the hilar lymph nodes without IV contrast. Otherwise unremarkableCardiovascular: Small pneumopericardium.Lincoln- Albert catheter tip in the right interlobar pulmonary artery. Moderate atherosclerosis of the thoracic aorta and branch vessels. 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 Aortic and mitral valve pros theses. A mediastinal drainThyroid gland: Visualized portion unremarkableEsophagus: UnremarkableIncluded upper abdomen: Small ascites. Overdistended gallbladder without gallbladder wall thickening or pericholecystic edema and no visible biliary ductal dilation. A simple appearing 3.3 cm left hepatic lobe cyst, no follow-up imaging recommended.Chest wall: Moderate amount of gas throughout the right chest wall..Bones: Multilevel degenerative changes and mild rightward curvature of the thoracic spine. IMPRESSION: 1.A moderate- sized loculated right hemothorax and a small right pneumothorax. 2.Small pneu mopericardium. 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 : 1935 Sex: FFINAL REPORT RAD, CHEST, 1 VIEW, NON DEPT INDICATION: RUL lung collapse COMPARISON: Prior day's exam FINDINGS: Portable frontal view of the chest. IMPRESSION: Support Lines: Lincoln-Albert tip overlies the right pulmonary outflow tract. Right chest tube. Lungs and pleura: Right upper lung opacity is unchanged. No significant pneumothorax. Heart and mediastinum: Stable contours. Stable surgical changes. Additional findings: None. Signed: Kyara Marcus Verified Date/Time: 04/25/2022 10:12:13 Reading Location: [facility] Radiology Reading Room CBC (HEMOGRAM ONLY)2022-04-25 09:55:40 Test Item Value Reference Range Interpretation Comments WHITE BLOOD CELL COUNT 12.7 K/ L 3.5-10.5 H (BEAKER) (test code = 775) RED BLOOD CELL COUNT 2.99 M/ L 3.93-5.22 L (BEAKER) (test code = 761) HEMOGLOBIN (BEAKER) 9.3 GM/DL 11.2-15.7 L (test code = 410) HEMATOCRIT (BEAKER) 26.8 % 34.1-44.9 L (test code = 411) MEAN CORPUSCULAR 89.6 fL 79.4-94.8 Discordant from VOLUME (BEAKER) (test previo us results. code = 753) Clinical correl ation suggested. MEAN CORPUSCULAR 31.1 pg 25.6-32.2 HEMOGLOBIN (BEAKER) (test code = 751) MEAN CORPUSCULAR 34.7 GM/DL 32.2-35.5 HEMOGLOBIN CONC (BEAKER) (test code = 752) RED CELL DISTRIBUTION 16.9 % 11.7-14.4 H WIDTH (BEAKER) (test code = 412) PLATELET COUNT 108 K/CU MM 150-450 L (BEAKER) (test code = 756) MEAN PLATELET VOLUME 10.9 fL 9.4-12.3 (BEAKER) (test code = 754) NUCLEATED RED BLOOD 0 /100 WBC 0-0 CELLS (BEAKER) (test code = 413) POCT-GLUCOSE [id number] 08:19:29 Test Item Value Reference Range Interpretation Comments POC-GLUCOSE METER 120 mg/dL 70-110 H : TESTED A T [facility] 6720 (BEAKER) (test code [facility], = 1538) [address]: Director Of Market Intelligence/Techni juan ID = [id number] for Jim rizo (contract) Aaron rodriguez Hematocrit-Stat [id number] 06:54:10 Test Item Value Reference Range Interpretation Comments Hematocrit (test code = 4544-3) 7.0 % 36.0-45.0 L Lab Interpretation (test code = Abnormal 78540-9) [facility] [id number] 06:54:10 Test Item Value Reference Range Interpretation Comments HEMATOCRIT (BEAKER) (test code = 411) 7.0 % 36.0-45.0 L LACTIC ACID, [id number] 06:20:41 Test Item Value Reference Range Interpretation Comments LACTATE BLOOD VENOUS (2) (BEAKER) 0.68 mmol/L 0.50-2.20 (test code = 2872) Director Of Market Intelligence ID - THERESA MOperator ID - THERESA MPOCT-GLUCOSE [id number] 06:10:42 Test Item Value Reference Range Interpretation Comments POC-GLUCOSE METER 122 mg/dL 70-110 H : TESTED A T [place] [address] (BEAKER) (test code = [facility], 1538) [address]: Director Of Market Intelligence/Techni juan ID = [id number] for Bubba marcus (contract), Janet kim POC ACTIVATED CLOTTING [id number] 05:51:42 Test Item Value Reference Range Interpretation Comments Activated Clotting Time 126 sec : 74 -137 seconds, (test code = 3184-9) Baselin e: TESTED AT [address], [address]: Director Of Market Intelligence/Techni juan ID = [id number] for Le , Arnol [id number] 05:51:42 Test Item Value Reference Range Interpretation Comments ACTIVATED CLOTTING TIME 126 sec : 74 -137 seconds, (BEAKER) (test code = Baseli ne: TESTED AT 441) [address], [address]: Director Of Market Intelligence/Techni juan ID = [id number] for Le , Arnol [id number] 05:51:42 Test Item Value Reference Range Interpretation Comments ACTIVATED CLOTTING TIME 590 sec : 74 -137 seconds, (BEAKER) (test code = Baseli ne: TESTED AT 441) [address], [address]: Director Of Market Intelligence/Techni juan ID = [id number] for Le , Arnol [id number] 05:51:41 Test Item Value Reference Range Interpretation Comments ACTIVATED CLOTTING TIME 654 sec : 74 -137 seconds, (BEAKER) (test code = Baseli ne: TESTED AT 441) [address], [address]: Director Of Market Intelligence/Techni juan ID = [id number] for Le , Arnol [id number] 05:51:41 Test Item Value Reference Range Interpretation Comments ACTIVATED CLOTTING TIME 590 sec : 74 -137 seconds, (BEAKER) (test code = Baseli ne: TESTED AT 441) [address], [address]: Director Of Market Intelligence/Techni juan ID = [id number] for Le , Arnol [id number] 05:51:06 Test Item Value Reference Range Interpretation Comments ACTIVATED CLOTTING TIME 115 sec : 74 -137 seconds, (BEAKER) (test code = Baseli ne: TESTED AT 441) [address], [address]: Director Of Market Intelligence/Techni juan ID = [id number] for Le , Arnol [id number] 05:51:06 Test Item Value Reference Range Interpretation Comments ACTIVATED CLOTTING TIME 839 sec : 74 -137 seconds, (BEAKER) (test code = Baseli ne: TESTED AT 441) [address], [facility] 30: Director Of Market Intelligence/Techni juan ID = [id number] for Le , Arnol [id number] 05:51:05 Test Item Value Reference Range Interpretation Comments ACTIVATED CLOTTING TIME 654 sec : 74 -137 seconds, (BEAKER) (test code = Eleazari ne: TESTED AT 441) [address], [facility] 30: Director Of Market Intelligence/Techni juan ID = [id number] for Le , Arnol [id number] 04:43:22 Test Item Value Reference Range Interpretation Comments PARTIAL THROMBOPLASTIN TIME 33.3 seconds 22.5-36.0 (BEAKER) (test code = 760) [id number] 04:43:20 Test Item Value Reference Range Interpretation Comments FIBRINOGEN LEVEL (BEAKER) (test 304 mg/dl 225-434 code = 658) BLOOD GAS, [id number] 04:42:49 Test Item Value Reference Range Interpretation Comments PH VENOUS (BEAKER) (test code = 7.38 7.32-7.42 701) PCO2 VENOUS (BEAKER) (test code = 39 mm Hg 41-51 L 755) PO2 VENOUS (BEAKER) (test code = 32 mm Hg 25-40 702) O2 SATURATION VENOUS (BEAKER) 64.2 % 40.0-70.0 (test code = 703) HCO3 VENOUS (BEAKER) (test code = 23 mmol/L 21-29 705) BASE EXCESS VENOUS (BEAKER) (test -2.3 mmol/L -2.0-3.0 L code = 704) PATIENT TEMPERATURE (BEAKER) 36.1 (test code = 1818) FIO2 (BEAKER) (test code = 1819) 40.0 PROTHROMBIN TIME/[id number] 04:42:42 Test Item Value Reference Range Interpretation Comments PROTIME (BEAKER) 17.0 seconds 11.9-14.2 H (test code = 759) INR (BEAKER) (test 1.41 See_Comment [Automat ed message] code = 370) The system [employer] generated this result transmitted ref erence range: <=5.90. The reference range was not used to int erpret this result as normal/abnormal . RECOMMENDED COUMADIN/WARFARIN INR THERAPY RANGESSTANDARD DOSE: 2.0 - 3.0 Includes: PROPHYLAXIS for venous thrombosis, systemic embolization; TREATMENT for venous thrombosis and/or pulmonary embolus.HIGH RISK: Target INR is 2.5-3.5 for patients with mechanical heart valves.HEPATIC FUNCTION [id number] 04:23:33 Test Item Value Reference Range Interpretation Comments TOTAL PROTEIN (BEAKER) (test code = 4.7 gm/dL 6.0-8.3 L 770) ALBUMIN (BEAKER) (test code = 1145) 3.2 g/dL 3.5-5.0 L BILIRUBIN TOTAL (BEAKER) (test code 1.3 mg/dL 0.2-1.2 H = 377) BILIRUBIN DIRECT (BEAKER) (test 0.7 mg/dL 0.1-0.5 H code = 706) ALKALINE PHOSPHATASE (BEAKER) (test 41 U/L 40-150 code = 346) AST (SGOT) (BEAKER) (test code = 66 U/L 5-34 H 353) ALT (SGPT) (BEAKER) (test code = 13 U/L 6-55 347) Director Of Market Intelligence ID - THERESA MCALCIUM, [id number] 04:18:14 Test Item Value Reference Range Interpretation Comments CALCIUM IONIZED (BEAKER) (test 1.21 mmol/L 1.12-1.27 code = 698) PH, BLOOD (BEAKER) (test code = 7.34 1810) [id number] 03:50:20 Test Item Value Reference Range Interpretation Comments PHOSPHORUS (BEAKER) (test code = 4.0 mg/dL 2.3-4.7 604) Director Of Market Intelligence GONZALO CARDENAS MBASIC METABOLIC [id number] 03:50:19 Test Item Value Reference Range Interpretation Comments SODIUM (BEAKER) 137 meq/L 136-145 (test code = 381) POTASSIUM (BEAKER) 4.3 meq/L 3.5-5.1 (test code = 379) CHLORIDE (BEAKER) 109 meq/L 98-107 H (test code = 382) CO2 (BEAKER) (test 22 meq/L 22-29 code = 355) BLOOD UREA NITROGEN 14 mg/dL 7-21 (BEAKER) (test code = 354) CREATININE (BEAKER) 0.74 mg/dL 0.57-1.25 (test code = 358) GLUCOSE RANDOM 122 mg/dL 70-105 H (BEAKER) (test code = 652) CALCIUM (BEAKER) 8.8 mg/dL 8.4-10.2 (test code = 697) EGFR (BEAKER) (test 75 mL/min/1.73 ESTIMA MINDA GFR IS code = 1092) sq m NOT ACCURATE CREATININE CLEARANCE IN PREDICTING GLOMERULAR FILTRATION RATE . ESTIMATED GFR I S NOT APPLICABLE FOR DIALYSIS PATIEN TS. Director Of Market Intelligence GONZALO CARDENAS [id number] 03:50:19 Test Item Value Reference Range Interpretation Comments MAGNESIUM (BEAKER) (test code = 1.9 mg/dL 1.6-2.6 627) Director Of Market Intelligence GONZALO CARDENAS [facility]BC (HEMOGRAM ONLY)2022-04-25 03:25:24 Test Item Value Reference Range Interpretation Comments WHITE BLOOD CELL COUNT (BEAKER) 10.6 K/ L 3.5-10.5 H (test code = 775) RED BLOOD CELL COUNT (BEAKER) 2.03 M/ L 3.93-5.22 L (test code = 761) HEMOGLOBIN (BEAKER) (test code = 6.4 GM/DL 11.2-15.7 L 410) HEMATOCRIT (BEAKER) (test code = 19.8 % 34.1-44.9 L 411) MEAN CORPUSCULAR VOLUME (BEAKER) 97.5 fL 79.4-94.8 H (test code = 753) MEAN CORPUSCULAR HEMOGLOBIN 31.5 pg 25.6-32.2 (BEAKER) (test code = 751) MEAN CORPUSCULAR HEMOGLOBIN CONC 32.3 GM/DL 32.2-35.5 (BEAKER) (test code = 752) RED CELL DISTRIBUTION WIDTH 15.3 % 11.7-14.4 H (BEAKER) (test code = 412) PLATELET COUNT (BEAKER) (test code 96 K/CU MM 150-450 L = 756) MEAN PLATELET VOLUME (BEAKER) 10.4 fL 9.4-12.3 (test code = 754) NUCLEATED RED BLOOD CELLS (BEAKER) 0 /100 WBC 0-0 (test code = 413) POCT-GLUCOSE [id number] 02:22:03 Test Item Value Reference Range Interpretation Comments POC-GLUCOSE METER 110 mg/dL 70-110 : TESTED A T [facility] 6720 (BEAKER) (test code = [facility] [place] [facility], 1538) [address]: Director Of Market Intelligence/Techni juan ID = [id number] for Bubba marcus (contract) Janet kim POCT-GLUCOSE [id number] 00:03:44 Test Item Value Reference Range Interpretation Comments POC-GLUCOSE METER 139 mg/dL 70-110 H : TESTED A T [facility] 6720 (BEAKER) (test code = [facility] [place] [facility], 1538) [address]: Director Of Market Intelligence/Techni juan ID = [id number] for KEVYN SALGUERO GLUCOSE-STAT [id number] 21:29:34 Test Item Value Reference Range Interpretation Comments GLUCOSE RANDOM (BEAKER) (test code 155 mg/dL 70-110 H = 652) HGB/HCT (H&H) - STAT [id number] 21:29:34 Test Item Value Reference Range Interpretation Comments HEMOGLOBIN (BEAKER) (test code = 8.9 GM/DL 12.0-15.0 L 410) HEMATOCRIT (BEAKER) (test code = 26.0 % 36.0-45.0 L 411) BLOOD GAS, [id number] 21:29:33 Test Item Value Reference Range Interpretation Comments PH ARTERIAL (BEAKER) (test code = 7.39 7.35-7.45 383) PCO2 ARTERIAL (BEAKER) (test code 37 mm Hg 35-45 = 384) PO2 ARTERIAL (BEAKER) (test code 100 mm Hg 80-90 H = 385) O2 SATURATION ARTERIAL (BEAKER) 97.5 % 96.0-97.0 H (test code = 386) HCO3 ARTERIAL (BEAKER) (test code 22 mmol/L 21-29 = 388) BASE EXCESS ARTERIAL (BEAKER) -2.7 mmol/L -2.0-3.0 L (test code = 387) PATIENT TEMPERATURE (BEAKER) 37.0 (test code = 1818) SODIUM NA-STAT [id number] 21:28:36 Test Item Value Reference Range Interpretation Comments SODIUM (BEAKER) (test code = 381) 139 meq/L 136-145 POTASSIUM-STAT [id number] 21:28:36 Test Item Value Reference Range Interpretation Comments POTASSIUM (BEAKER) (test code = 3.9 meq/L 3.6-5.5 379) [id number] 20:35:33 Test Item Value Reference Range Interpretation Comments MAGNESIUM (BEAKER) 2.1 mg/dL 1.6-2.6 Specimen slightly (test code = 627) hemolyzed Director Of Market Intelligence ID - DBBASIC METABOLIC [id number] 20:35:32 Test Item Value Reference Range Interpretation Comments SODIUM (BEAKER) 140 meq/L 136-145 (test code = 381) POTASSIUM (BEAKER) 4.3 meq/L 3.5-5.1 Specimen slightly (test code = 379) hemolyzed CHLORIDE (BEAKER) 109 meq/L 98-107 H (test code = 382) CO2 (BEAKER) (test 19 meq/L 22-29 L code = 355) BLOOD UREA NITROGEN 14 mg/dL 7-21 (BEAKER) (test code = 354) CREATININE (BEAKER) 0.80 mg/dL 0.57-1.25 Specimen slightly (test code = 358) hemolyzed GLUCOSE RANDOM 161 mg/dL 70-105 H (BEAKER) (test code = 652) CALCIUM (BEAKER) 10.0 mg/dL 8.4-10.2 (test code = 697) EGFR (BEAKER) (test 68 mL/min/1.73 ESTIMA MINDA GFR IS code = 1092) sq m NOT ACCURATE CREATININE CLEARANCE IN PREDICTING GLOMERULAR FILTRATION RATE . ESTIMATED GFR I S NOT APPLICABLE FOR DIALYSIS PATIEN TS. Director Of Market Intelligence ID - DBSpecimen slightly ictericLACTIC ACID, [id number] 20:31:26 Test Item Value Reference Range Interpretation Comments LACTATE BLOOD ARTERIAL (2) 1.2 mmol/L 0.5-2.2 (BEAKER) (test code = 2874) Director Of Market Intelligence ID - DBSpecimen slightly ictericGLUCOSE-STAT [id number] 20:09:05 Test Item Value Reference Range Interpretation Comments GLUCOSE RANDOM (BEAKER) (test code 147 mg/dL 70-110 H = 652) HGB/HCT (H&H) - STAT [id number] 20:09:05 Test Item Value Reference Range Interpretation Comments HEMOGLOBIN (BEAKER) (test code = 9.5 GM/DL 12.0-15.0 L 410) HEMATOCRIT (BEAKER) (test code = 28.0 % 36.0-45.0 L 411) BLOOD GAS, [id number] 20:09:04 Test Item Value Reference Range Interpretation Comments PH ARTERIAL (BEAKER) (test code = 7.43 7.35-7.45 383) PCO2 ARTERIAL (BEAKER) (test code 31 mm Hg 35-45 L = 384) PO2 ARTERIAL (BEAKER) (test code 134 mm Hg 80-90 H = 385) O2 SATURATION ARTERIAL (BEAKER) 98.8 % 96.0-97.0 H (test code = 386) HCO3 ARTERIAL (BEAKER) (test code 20 mmol/L 21-29 L = 388) BASE EXCESS ARTERIAL (BEAKER) -3.5 mmol/L -2.0-3.0 L (test code = 387) PATIENT TEMPERATURE (BEAKER) 37.0 (test code = 1818) CALCIUM, [id number] 20:08:43 Test Item Value Reference Range Interpretation Comments CALCIUM IONIZED (BEAKER) (test 1.26 mmol/L 1.12-1.27 code = 698) PH, BLOOD (BEAKER) (test code = 7.43 1810) POTASSIUM-STAT [id number] 20:08:22 Test Item Value Reference Range Interpretation Comments POTASSIUM (BEAKER) (test code = 4.0 meq/L 3.6-5.5 379) SODIUM NA-STAT [id number] 20:08:21 Test Item Value Reference Range Interpretation Comments SODIUM (BEAKER) (test code = 381) 138 meq/L 136-145 (CELLAVISION MANUAL DIFF)2022-04-24 18:42:34 Test Item Value Reference Range Interpretation Comments NEUTROPHILS - REL 80 % (CELLAVISION)(BEAKER) (test code = 2816) LYMPHOCYTES - REL 2 % (CELLAVISION)(BEAKER) (test code = 2817) MONOCYTES - REL 11 % (CELLAVISION)(BEAKER) (test code = 2818) METAMYELOCYTES - REL 2 % 0-0 H (CELLAVISION)(BEAKER) (test code = 2821) BANDS - REL (CELLAVISION)(BEAKER) 5 % 0-10 (test code = 2826) NEUTROPHILS - ABS 11.20 K/ul 1.56-6.13 H (CELLAVISION)(BEAKER) (test code = 2830) LYMPHOCYTES - ABS 0.28 K/ul 1.18-3.74 L (CELLAVISION)(BEAKER) (test code = 2831) MONOCYTES - ABS 1.54 K/uL 0.24-0.36 H (CELLAVISION)(BEAKER) (test code = 2832) METAMYELOCYTES - ABS 0.28 K/uL 0.00-0.00 H (CELLAVISION)(BEAKER) (test code = 2836) BANDS - ABS (CELLAVISION)(BEAKER) 0.70 K/uL 0.00-0.80 (test code = 2840) TOTAL COUNTED (BEAKER) (test code 100 = 1351) WBC MORPHOLOGY (BEAKER) (test code Normal = 487) LARGE PLT(BEAKER) (test code = Present 2156) ANISOCYTOSIS (BEAKER) (test code = 1+ few 961) ARTIFACT (CELLAVISION)(BEAKER) Present (test code = 3432) PLATELET CONCENTRATION Decreased (CELLAVISION)(BEAKER) (test code = 3438) Director Of Market Intelligence ID - Animal Pathologist (created by the system)User comments: Slide comments:CBC W/PLT COUNT & AUTO [id number] 18:18:06 Test Item Value Reference Range Interpretation Comments WHITE BLOOD CELL COUNT (BEAKER) 14.0 K/ L 3.5-10.5 H (test code = 775) RED BLOOD CELL COUNT (BEAKER) 2.88 M/ L 3.93-5.22 L (test code = 761) HEMOGLOBIN (BEAKER) (test code = 9.2 GM/DL 11.2-15.7 L 410) HEMATOCRIT (BEAKER) (test code = 27.1 % 34.1-44.9 L 411) MEAN CORPUSCULAR VOLUME (BEAKER) 94.1 fL 79.4-94.8 (test code = 753) MEAN CORPUSCULAR HEMOGLOBIN 31.9 pg 25.6-32.2 (BEAKER) (test code = 751) MEAN CORPUSCULAR HEMOGLOBIN CONC 33.9 GM/DL 32.2-35.5 (BEAKER) (test code = 752) RED CELL DISTRIBUTION WIDTH 15.1 % 11.7-14.4 H (BEAKER) (test code = 412) PLATELET COUNT (BEAKER) (test 130 K/CU MM 150-450 L code = 756) MEAN PLATELET VOLUME (BEAKER) 9.6 fL 9.4-12.3 (test code = 754) NUCLEATED RED BLOOD CELLS 0 /100 WBC 0-0 (BEAKER) (test code = 413) NEUTROPHILS RELATIVE PERCENT 78 % (BEAKER) (test code = 429) LYMPHOCYTES RELATIVE PERCENT 3 % (BEAKER) (test code = 430) MONOCYTES RELATIVE PERCENT 18 % (BEAKER) (test code = 431) EOSINOPHILS RELATIVE PERCENT 0 % (BEAKER) (test code = 432) BASOPHILS RELATIVE PERCENT 0 % (BEAKER) (test code = 437) NEUTROPHILS ABSOLUTE COUNT 10.86 K/ L 1.56-6.13 H (BEAKER) (test code = 670) LYMPHOCYTES ABSOLUTE COUNT 0.44 K/ L 1.18-3.74 L (BEAKER) (test code = 414) MONOCYTES ABSOLUTE COUNT (BEAKER) 2.56 K/ L 0.24-0.36 H (test code = 415) EOSINOPHILS ABSOLUTE COUNT 0.00 K/ L 0.04-0.36 L (BEAKER) (test code = 416) BASOPHILS ABSOLUTE COUNT (BEAKER) 0.02 K/ L 0.01-0.08 (test code = 417) IMMATURE GRANULOCYTES-RELATIVE 1 % 0-1 PERCENT (BEAKER) (test code = 5721) HGB/HCT (H&H) - STAT [id number] 18:15:30 Test Item Value Reference Range Interpretation Comments HEMOGLOBIN (BEAKER) (test code = 9.5 GM/DL 12.0-15.0 L 410) HEMATOCRIT (BEAKER) (test code = 28.0 % 36.0-45.0 L 411) BLOOD GAS, [id number] 18:15:29 Test Item Value Reference Range Interpretation Comments PH ARTERIAL (BEAKER) (test code = 7.47 7.35-7.45 H 383) PCO2 ARTERIAL (BEAKER) (test code 26 mm Hg 35-45 L = 384) PO2 ARTERIAL (BEAKER) (test code 168 mm Hg 80-90 H = 385) O2 SATURATION ARTERIAL (BEAKER) 99.3 % 96.0-97.0 H (test code = 386) HCO3 ARTERIAL (BEAKER) (test code 19 mmol/L 21-29 L = 388) BASE EXCESS ARTERIAL (BEAKER) -4.1 mmol/L -2.0-3.0 L (test code = 387) PATIENT TEMPERATURE (BEAKER) 36.9 (test code = 1818) FIO2 (BEAKER) (test code = 1819) 40.0 GLUCOSE-STAT [id number] 18:15:29 Test Item Value Reference Range Interpretation Comments GLUCOSE RANDOM (BEAKER) (test code 167 mg/dL 70-110 H = 652) SODIUM NA-STAT [id number] 18:15:23 Test Item Value Reference Range Interpretation Comments SODIUM (BEAKER) (test code = 381) 138 meq/L 136-145 POTASSIUM-STAT [id number] 18:15:23 Test Item Value Reference Range Interpretation Comments POTASSIUM (BEAKER) (test code = 3.6 meq/L 3.6-5.5 379) RAD, CHEST, 1 VIEW, NON [id number] 16:48:00Reason for exam:->s/p valve surgeryShould this be performed at the bedside?->Yes [facility] : 1935 Sex: FFINAL REPORT Chest, 1 view, 04/24/2022 4:08 PM. History: Postop. Comparison: None available. Discussion: The cardiomediastinal silhouette and pulmonary vasculature are within normal limits for a portable exam. Prosthetic heart valve is present. There is biapical pleural thickening. Scattered linear opacities are present throughout the right lung. There is no pneumothorax, consolidation,or effusion. Endotracheal tube is present terminating at the level of the clavicles. NG tube is present terminating below the left hemidiaphragm. Right IJ Lincoln-Albert catheter terminates in the distal right pulmonary artery. Right-sided chest tube is present. Minimal subcutaneous air is present within th e right lower lateral chest wall. IMPRESSION: Postoperative changes with supporting lines and tubes in adequate position. Scattered right lung atelectasis is present. Signed: [facility] Verified Date/Time: 04/24/2022 16:48:45 Reading Location: [facility] Radiology Reading Room BASI METABOLIC PANEL 2022-04-24 16:28:42 Test Item Value Reference Range Interpretation Comments SODIUM (BEAKER) 140 meq/L 136-145 (test code = 381) POTASSIUM (BEAKER) 4.0 meq/L 3.5-5.1 Specimen slightly (test code = 379) hemolyzed CHLORIDE (BEAKER) 106 meq/L 98-107 (test code = 382) CO2 (BEAKER) (test 22 meq/L 22-29 code = 355) BLOOD UREA NITROGEN 12 mg/dL 7-21 (BEAKER) (test code = 354) CREATININE (BEAKER) 0.75 mg/dL 0.57-1.25 Specimen slightly (test code = 358) hemolyzed GLUCOSE RANDOM 170 mg/dL 70-105 H (BEAKER) (test code = 652) CALCIUM (BEAKER) 11.1 mg/dL 8.4-10.2 H (test code = 697) EGFR (BEAKER) (test 73 mL/min/1.73 ESTIMA MINDA GFR IS code = 1092) sq m NOT ACCURATE CREATININE CLEARANCE IN PREDICTING GLOMERULAR FILTRATION RATE . ESTIMATED GFR I S NOT APPLICABLE FOR DIALYSIS PATIEN TS. Director Of Market Intelligence ID - PIPAVAN [id number] 16:20:36 Test Item Value Reference Range Interpretation Comments MAGNESIUM (BEAKER) 1.6 mg/dL 1.6-2.6 Specimen slightly (test code = 627) hemolyzed Director Of Market Intelligence ID - PIPAVAN [id number] 16:20:36 Test Item Value Reference Range Interpretation Comments PHOSPHORUS (BEAKER) 3.5 mg/dL 2.3-4.7 Specimen slightly (test code = 604) hemolyzed Director Of Market Intelligence ID - JONI LLACTIC ACID, [id number] 16:12:11 Test Item Value Reference Range Interpretation Comments LACTATE BLOOD 1.3 mmol/L 0.5-2.2 Specimen sligh tly ARTERIAL (2) (BEAKER) hemoly zed (test code = 2874) Director Of Market Intelligence ID - PIPAVAN [id number] 16:08:12 Test Item Value Reference Range Interpretation Comments PARTIAL THROMBOPLASTIN TIME 33.9 seconds 22.5-36.0 (BEAKER) (test code = 760) [id number] 16:07:51 Test Item Value Reference Range Interpretation Comments FIBRINOGEN LEVEL (BEAKER) (test 426 mg/dl 225-434 code = 658) PROTHROMBIN [id number] 16:07:30 Test Item Value Reference Range Interpretation Comments PROTIME (BEAKER) 17.1 seconds 11.9-14.2 H (test code = 759) INR (BEAKER) (test 1.42 See_Comment [Automat ed message] code = 370) The system [employer] generated this result transmitted ref erence range: <=5.90. The reference range was not used to int erpret this result as normal/abnormal . RECOMMENDED COUMADIN/WARFARIN INR THERAPY RANGESSTANDARD DOSE: 2.0 - 3.0 Includes: PROPHYLAXIS for venous thrombosis, systemic embolization; TREATMENT for venous thrombosis and/or pulmonary embolus.HIGH RISK: Target INR is 2.5-3.5 for patients with mechanical heart valves.CALCIUM, [id number] 16:00:22 Test Item Value Reference Range Interpretation Comments CALCIUM IONIZED (BEAKER) (test 1.29 mmol/L 1.12-1.27 H code = 698) PH, BLOOD (BEAKER) (test code = 7.46 1810) BLOOD GAS, [id number] 16:00:22 Test Item Value Reference Range Interpretation Comments PH ARTERIAL (BEAKER) (test code = 7.47 7.35-7.45 H 383) PCO2 ARTERIAL (BEAKER) (test code 30 mm Hg 35-45 L = 384) PO2 ARTERIAL (BEAKER) (test code 109 mm Hg 80-90 H = 385) O2 SATURATION ARTERIAL (BEAKER) 98.3 % 96.0-97.0 H (test code = 386) HCO3 ARTERIAL (BEAKER) (test code 21 mmol/L 21-29 = 388) BASE EXCESS ARTERIAL (BEAKER) -1.7 mmol/L -2.0-3.0 (test code = 387) PATIENT TEMPERATURE (BEAKER) 36.7 (test code = 1818) FIO2 (BEAKER) (test code = 1819) 60.0 OXYGEN SATURATION, [id number] 15:59:48 Test Item Value Reference Range Interpretation Comments O2 SATURATION (MEASURED) (BEAKER) 61.5 % (test code = 1455) CBC (HEMOGRAM ONLY)2022-04-24 15:58:48 Test Item Value Reference Range Interpretation Comments WHITE BLOOD CELL COUNT (BEAKER) 14.2 K/ L 3.5-10.5 H (test code = 775) RED BLOOD CELL COUNT (BEAKER) 3.40 M/ L 3.93-5.22 L (test code = 761) HEMOGLOBIN (BEAKER) (test code = 10.7 GM/DL 11.2-15.7 L 410) HEMATOCRIT (BEAKER) (test code = 31.6 % 34.1-44.9 L 411) MEAN CORPUSCULAR VOLUME (BEAKER) 92.9 fL 79.4-94.8 (test code = 753) MEAN CORPUSCULAR HEMOGLOBIN 31.5 pg 25.6-32.2 (BEAKER) (test code = 751) MEAN CORPUSCULAR HEMOGLOBIN CONC 33.9 GM/DL 32.2-35.5 (BEAKER) (test code = 752) RED CELL DISTRIBUTION WIDTH 15.0 % 11.7-14.4 H (BEAKER) (test code = 412) PLATELET COUNT (BEAKER) (test 146 K/CU MM 150-450 L code = 756) MEAN PLATELET VOLUME (BEAKER) 9.7 fL 9.4-12.3 (test code = 754) NUCLEATED RED BLOOD CELLS 0 /100 WBC 0-0 (BEAKER) (test code = 413) [id number] 14:24:28 Test Item Value Reference Range Interpretation Comments PARTIAL THROMBOPLASTIN TIME 37.1 seconds 22.5-36.0 H (BEAKER) (test code = 760) [id number] 14:24:07 Test Item Value Reference Range Interpretation Comments FIBRINOGEN LEVEL (BEAKER) (test 290 mg/dl 225-434 code = 658) PROTHROMBIN [id number] 14:23:45 Test Item Value Reference Range Interpretation Comments PROTIME (BEAKER) 19.2 seconds 11.9-14.2 H (test code = 759) INR (BEAKER) (test 1.64 See_Comment [Automat ed message] code = 370) The system [employer] generated this result transmitted ref erence range: <=5.90. The reference range was not used to int erpret this result as normal/abnormal . RECOMMENDED COUMADIN/WARFARIN INR THERAPY RANGESSTANDARD DOSE: 2.0 - 3.0 Includes: PROPHYLAXIS for venous thrombosis, systemic embolization; TREATMENT for venous thrombosis and/or pulmonary embolus.HIGH RISK: Target INR is 2.5-3.5 for patients with mechanical heart valves.Platelet [id number] 14:19:25 Test Item Value Reference Range Interpretation Comments Platelets (test code 139 See_Comment L [Autom ated = 777-3) message] The system which generated this result transmit minda reference range : 150 - 450 K/CU MM. The reference range was not u sed to interpret th is result as normal/abnormal . MISHA (test code = MISHA) Director Of Market Intelligence ID - [id number] Lab Interpretation Abnormal (test code = 05133-2) [facility] [id number] 14:19:25 Test Item Value Reference Range Interpretation Comments PLATELET COUNT (BEAKER) (test 139 K/CU MM 150-450 L code = 756) Director Of Market Intelligence ID - [id number], [id number] 14:11:38 Test Item Value Reference Range Interpretation Comments CALCIUM IONIZED (BEAKER) (test 1.01 mmol/L 1.12-1.27 L code = 698) PH, BLOOD (BEAKER) (test code = 7.45 1810) POTASSIUM-STAT [id number] 14:11:06 Test Item Value Reference Range Interpretation Comments POTASSIUM (BEAKER) (test code = 3.1 meq/L 3.6-5.5 L 379) GLUCOSE-STAT [id number] 14:11:06 Test Item Value Reference Range Interpretation Comments GLUCOSE RANDOM (BEAKER) (test code 150 mg/dL 70-110 H = 652) HGB/HCT (H&H) - STAT [id number] 14:11:06 Test Item Value Reference Range Interpretation Comments HEMOGLOBIN (BEAKER) (test code = 10.8 GM/DL 12.0-15.0 L 410) HEMATOCRIT (BEAKER) (test code = 32.0 % 36.0-45.0 L 411) BLOOD GAS, [id number] 14:11:05 Test Item Value Reference Range Interpretation Comments PH ARTERIAL (BEAKER) (test code = 7.46 7.35-7.45 H 383) PCO2 ARTERIAL (BEAKER) (test code 33 mm Hg 35-45 L = 384) PO2 ARTERIAL (BEAKER) (test code 279 mm Hg 80-90 H = 385) O2 SATURATION ARTERIAL (BEAKER) 99.7 % 96.0-97.0 H (test code = 386) HCO3 ARTERIAL (BEAKER) (test code 23 mmol/L 21-29 = 388) BASE EXCESS ARTERIAL (BEAKER) -0.4 mmol/L -2.0-3.0 (test code = 387) PATIENT TEMPERATURE (BEAKER) 36.0 (test code = 1818) FIO2 (BEAKER) (test code = 1819) 97.0 SODIUM NA-STAT [id number] 14:10:43 Test Item Value Reference Range Interpretation Comments SODIUM (BEAKER) (test code = 381) 136 meq/L 136-145 [id number] 13:59:03 Test Item Value Reference Range Interpretation Comments FIBRINOGEN LEVEL (BEAKER) (test 211 mg/dl 225-434 L code = 658) PROTHROMBIN [id number] 13:58:41 Test Item Value Reference Range Interpretation Comments PROTIME (BEAKER) 22.7 seconds 11.9-14.2 H (test code = 759) INR (BEAKER) (test 2.03 See_Comment [Automat ed message] code = 370) The system [employer] generated this result transmitted ref erence range: <=5.90. The reference range was not used to int erpret this result as normal/abnormal . RECOMMENDED COUMADIN/WARFARIN INR THERAPY RANGESSTANDARD DOSE: 2.0 - 3.0 Includes: PROPHYLAXIS for venous thrombosis, systemic embolization; TREATMENT for venous thrombosis and/or pulmonary embolus.HIGH RISK: Target INR is 2.5-3.5 for patients with mechanical heart valves.[id number] 13:34:36 Test Item Value Reference Range Interpretation Comments PARTIAL THROMBOPLASTIN TIME 38.6 seconds 22.5-36.0 H (BEAKER) (test code = 760) [id number] 13:34:35 Test Item Value Reference Range Interpretation Comments FIBRINOGEN LEVEL (BEAKER) (test 185 mg/dl 225-434 L code = 658) PROTHROMBIN TIME/[id number] 13:33:54 Test Item Value Reference Range Interpretation Comments PROTIME (BEAKER) 26.1 seconds 11.9-14.2 H (test code = 759) INR (BEAKER) (test 2.42 See_Comment [Automat ed message] code = 370) The system [employer] generated this result transmitted ref erence range: <=5.90. The reference range was not used to int erpret this result as normal/abnormal . RECOMMENDED COUMADIN/WARFARIN INR THERAPY RANGESSTANDARD DOSE: 2.0 - 3.0 Includes: PROPHYLAXIS for venous thrombosis, systemic embolization; TREATMENT for venous thrombosis and/or pulmonary embolus.HIGH RISK: Target INR is 2.5-3.5 for patients with mechanical heart valves.CALCIUM, [id number] 13:23:39 Test Item Value Reference Range Interpretation Comments CALCIUM IONIZED (BEAKER) (test 1.11 mmol/L 1.12-1.27 L code = 698) PH, BLOOD (BEAKER) (test code = 7.55 1810) HGB/HCT (H&H) - STAT [id number] 13:23:38 Test Item Value Reference Range Interpretation Comments HEMOGLOBIN (BEAKER) (test code = 8.6 GM/DL 12.0-15.0 L 410) HEMATOCRIT (BEAKER) (test code = 25.0 % 36.0-45.0 L 411) POTASSIUM-STAT [id number] 13:23:37 Test Item Value Reference Range Interpretation Comments POTASSIUM (BEAKER) (test code = 3.4 meq/L 3.6-5.5 L 379) GLUCOSE-STAT [id number] 13:23:37 Test Item Value Reference Range Interpretation Comments GLUCOSE RANDOM (BEAKER) (test code 159 mg/dL 70-110 H = 652) BLOOD GAS, [id number] 13:23:36 Test Item Value Reference Range Interpretation Comments PH ARTERIAL (BEAKER) (test code = 7.55 7.35-7.45 H 383) PCO2 ARTERIAL (BEAKER) (test code 29 mm Hg 35-45 L = 384) PO2 ARTERIAL (BEAKER) (test code = 232 mm Hg 80-90 H 385) O2 SATURATION ARTERIAL (BEAKER) 99.6 % 96.0-97.0 H (test code = 386) HCO3 ARTERIAL (BEAKER) (test code 25 mmol/L 21-29 = 388) BASE EXCESS ARTERIAL (BEAKER) 3.0 mmol/L -2.0-3.0 (test code = 387) PATIENT TEMPERATURE (BEAKER) (test 36.7 code = 1818) FIO2 (BEAKER) (test code = 1819) 97.0 SODIUM NA-STAT [id number] 13:23:14 Test Item Value Reference Range Interpretation Comments SODIUM (BEAKER) (test code = 381) 137 meq/L 136-145 HGB/HCT (H&H) - STAT [id number] 12:07:22 Test Item Value Reference Range Interpretation Comments HEMOGLOBIN (BEAKER) (test code = 8.5 GM/DL 12.0-15.0 L 410) HEMATOCRIT (BEAKER) (test code = 25.0 % 36.0-45.0 L 411) BLOOD GAS, [id number] 12:07:21 Test Item Value Reference Range Interpretation Comments PH ARTERIAL (BEAKER) (test code = 7.42 7.35-7.45 383) PCO2 ARTERIAL (BEAKER) (test code 39 mm Hg 35-45 = 384) PO2 ARTERIAL (BEAKER) (test code = 349 mm Hg 80-90 H 385) O2 SATURATION ARTERIAL (BEAKER) 99.8 % 96.0-97.0 H (test code = 386) HCO3 ARTERIAL (BEAKER) (test code 25 mmol/L 21-29 = 388) BASE EXCESS ARTERIAL (BEAKER) 0.3 mmol/L -2.0-3.0 (test code = 387) PATIENT TEMPERATURE (BEAKER) (test 36.9 code = 1818) FIO2 (BEAKER) (test code = 1819) 75.0 GLUCOSE-STAT [id number] 12:07:21 Test Item Value Reference Range Interpretation Comments GLUCOSE RANDOM (BEAKER) (test code 184 mg/dL 70-110 H = 652) POTASSIUM-STAT [id number] 12:06:48 Test Item Value Reference Range Interpretation Comments POTASSIUM (BEAKER) (test code = 3.7 meq/L 3.6-5.5 379) SODIUM NA-STAT [id number] 12:06:47 Test Item Value Reference Range Interpretation Comments SODIUM (BEAKER) (test code = 381) 135 meq/L 136-145 L PLATELET [id number] 11:55:07 Test Item Value Reference Range Interpretation Comments PLATELET COUNT 84 K/CU MM 150-450 L No clot, Pt i s in CV (BEAKER) (test code = OR. 756) Director Of Market Intelligence ID - [id number] 11:38:00 Test Item Value Reference Range Interpretation Comments GLUCOSE RANDOM (BEAKER) (test code 215 mg/dL 70-110 H = 652) HGB/HCT (H&H) - STAT [id number] 11:38:00 Test Item Value Reference Range Interpretation Comments HEMOGLOBIN (BEAKER) (test code = 8.5 GM/DL 12.0-15.0 L 410) HEMATOCRIT (BEAKER) (test code = 25.0 % 36.0-45.0 L 411) BLOOD GAS, [id number] 11:37:59 Test Item Value Reference Range Interpretation Comments PH ARTERIAL (BEAKER) (test code = 7.45 7.35-7.45 383) PCO2 ARTERIAL (BEAKER) (test code 36 mm Hg 35-45 = 384) PO2 ARTERIAL (BEAKER) (test code = 340 mm Hg 80-90 H 385) O2 SATURATION ARTERIAL (BEAKER) 99.8 % 96.0-97.0 H (test code = 386) HCO3 ARTERIAL (BEAKER) (test code 25 mmol/L 21-29 = 388) BASE EXCESS ARTERIAL (BEAKER) 0.6 mmol/L -2.0-3.0 (test code = 387) PATIENT TEMPERATURE (BEAKER) (test 36.3 code = 1818) FIO2 (BEAKER) (test code = 1819) 75.0 SODIUM NA-STAT [id number] 11:37:59 Test Item Value Reference Range Interpretation Comments SODIUM (BEAKER) (test code = 381) 133 meq/L 136-145 L POTASSIUM-STAT [id number] 11:37:43 Test Item Value Reference Range Interpretation Comments POTASSIUM (BEAKER) (test code = 4.4 meq/L 3.6-5.5 379) SODIUM NA-STAT [id number] 11:09:16 Test Item Value Reference Range Interpretation Comments SODIUM (BEAKER) (test code = 381) 134 meq/L 136-145 L GLUCOSE-STAT [id number] 11:09:16 Test Item Value Reference Range Interpretation Comments GLUCOSE RANDOM (BEAKER) (test code 226 mg/dL 70-110 H = 652) HGB/HCT (H&H) - STAT [id number] 11:09:16 Test Item Value Reference Range Interpretation Comments HEMOGLOBIN (BEAKER) (test code = 9.7 GM/DL 12.0-15.0 L 410) HEMATOCRIT (BEAKER) (test code = 29.0 % 36.0-45.0 L 411) BLOOD GAS, [id number] 11:09:15 Test Item Value Reference Range Interpretation Comments PH ARTERIAL (BEAKER) (test code = 7.43 7.35-7.45 383) PCO2 ARTERIAL (BEAKER) (test code 36 mm Hg 35-45 = 384) PO2 ARTERIAL (BEAKER) (test code 364 mm Hg 80-90 H = 385) O2 SATURATION ARTERIAL (BEAKER) 99.8 % 96.0-97.0 H (test code = 386) HCO3 ARTERIAL (BEAKER) (test code 25 mmol/L 21-29 = 388) BASE EXCESS ARTERIAL (BEAKER) -1.0 mmol/L -2.0-3.0 (test code = 387) PATIENT TEMPERATURE (BEAKER) 31.9 (test code = 1818) FIO2 (BEAKER) (test code = 1819) 65.0 POTASSIUM-STAT [id number] 11:08:50 Test Item Value Reference Range Interpretation Comments POTASSIUM (BEAKER) (test code = 4.6 meq/L 3.6-5.5 379) HGB/HCT (H&H) - STAT [id number] 10:59:00 Test Item Value Reference Range Interpretation Comments HEMOGLOBIN (BEAKER) (test code = 7.6 GM/DL 12.0-15.0 L 410) HEMATOCRIT (BEAKER) (test code = 22.0 % 36.0-45.0 L 411) BLOOD GAS, [id number] 10:58:59 Test Item Value Reference Range Interpretation Comments PH ARTERIAL (BEAKER) (test code = 7.19 7.35-7.45 LL 383) PCO2 ARTERIAL (BEAKER) (test code 81 mm Hg 35-45 HH = 384) PO2 ARTERIAL (BEAKER) (test code = 349 mm Hg 80-90 H 385) O2 SATURATION ARTERIAL (BEAKER) 99.6 % 96.0-97.0 H (test code = 386) HCO3 ARTERIAL (BEAKER) (test code 31 mmol/L 21-29 H = 388) BASE EXCESS ARTERIAL (BEAKER) 1.6 mmol/L -2.0-3.0 (test code = 387) PATIENT TEMPERATURE (BEAKER) (test 36.9 code = 1818) FIO2 (BEAKER) (test code = 1819) 65.0 GLUCOSE-STAT [id number] 10:58:59 Test Item Value Reference Range Interpretation Comments GLUCOSE RANDOM (BEAKER) (test code 206 mg/dL 70-110 H = 652) POTASSIUM-STAT [id number] 10:55:29 Test Item Value Reference Range Interpretation Comments POTASSIUM (BEAKER) (test code = 4.1 meq/L 3.6-5.5 379) SODIUM NA-STAT [id number] 10:55:28 Test Item Value Reference Range Interpretation Comments SODIUM (BEAKER) (test code = 381) 137 meq/L 136-145 BLOOD GAS, [id number] 10:27:14 Test Item Value Reference Range Interpretation Comments PH ARTERIAL (BEAKER) (test code = 7.29 7.35-7.45 L 383) PCO2 ARTERIAL (BEAKER) (test code 59 mm Hg 35-45 H = 384) PO2 ARTERIAL (BEAKER) (test code = 372 mm Hg 80-90 H 385) O2 SATURATION ARTERIAL (BEAKER) 99.7 % 96.0-97.0 H (test code = 386) HCO3 ARTERIAL (BEAKER) (test code 29 mmol/L 21-29 = 388) BASE EXCESS ARTERIAL (BEAKER) 1.1 mmol/L -2.0-3.0 (test code = 387) PATIENT TEMPERATURE (BEAKER) (test 32.5 code = 1818) FIO2 (BEAKER) (test code = 1819) 70.0 GLUCOSE-STAT [id number] 10:27:14 Test Item Value Reference Range Interpretation Comments GLUCOSE RANDOM (BEAKER) (test code 189 mg/dL 70-110 H = 652) HGB/HCT (H&H) - STAT [id number] 10:27:14 Test Item Value Reference Range Interpretation Comments HEMOGLOBIN (BEAKER) (test code = 7.9 GM/DL 12.0-15.0 L 410) HEMATOCRIT (BEAKER) (test code = 23.0 % 36.0-45.0 L 411) SODIUM NA-STAT [id number] 10:26:53 Test Item Value Reference Range Interpretation Comments SODIUM (BEAKER) (test code = 381) 135 meq/L 136-145 L POTASSIUM-STAT [id number] 10:26:53 Test Item Value Reference Range Interpretation Comments POTASSIUM (BEAKER) (test code = 3.5 meq/L 3.6-5.5 L 379) HGB/HCT (H&H) - STAT [id number] 08:10:46 Test Item Value Reference Range Interpretation Comments HEMOGLOBIN (BEAKER) (test code = 11.1 GM/DL 12.0-15.0 L 410) HEMATOCRIT (BEAKER) (test code = 33.0 % 36.0-45.0 L 411) POTASSIUM-STAT [id number] 08:10:41 Test Item Value Reference Range Interpretation Comments POTASSIUM (BEAKER) (test code = 3.4 meq/L 3.6-5.5 L 379) BLOOD GAS, [id number] 08:10:40 Test Item Value Reference Range Interpretation Comments PH ARTERIAL (BEAKER) (test code = 7.48 7.35-7.45 H 383) PCO2 ARTERIAL (BEAKER) (test code 34 mm Hg 35-45 L = 384) PO2 ARTERIAL (BEAKER) (test code = 466 mm Hg 80-90 H 385) O2 SATURATION ARTERIAL (BEAKER) 99.9 % 96.0-97.0 H (test code = 386) HCO3 ARTERIAL (BEAKER) (test code 25 mmol/L 21-29 = 388) BASE EXCESS ARTERIAL (BEAKER) 1.5 mmol/L -2.0-3.0 (test code = 387) PATIENT TEMPERATURE (BEAKER) (test 36.7 code = 1818) FIO2 (BEAKER) (test code = 1819) 95.0 SODIUM NA-STAT [id number] 08:10:40 Test Item Value Reference Range Interpretation Comments SODIUM (BEAKER) (test code = 381) 134 meq/L 136-145 L CALCIUM, [id number] 08:10:34 Test Item Value Reference Range Interpretation Comments CALCIUM IONIZED (BEAKER) (test 1.13 mmol/L 1.12-1.27 code = 698) PH, BLOOD (BEAKER) (test code = 7.47 1810) GLUCOSE-STAT [id number] 08:10:34 Test Item Value Reference Range Interpretation Comments GLUCOSE RANDOM (BEAKER) (test code 104 mg/dL 70-110 = 652) SARS-CoV2/RT-PCR (Asymptomatic ONLY)2022-04-24 04:46:57 Test Item Value Reference Range Interpretation Comments SARS-COV2/RT-PCR Negative Not Detected, (test code = Negative, See 14864-2) external report for linked test SARS-COV-2 [facility] PERFORMING LAB (test code = 36114-1) MISHA (test code = Negative result for this MISHA) test determines that SARS-CoV-2 RNA was not present in the specimen above the Limit of Detection (LOD). However, Negative results do not preclude SARS-CoV-2 infection and should not be used as the sole basis for treatment or patient management decisions. Negative results must be combined with clinical observations, patient history, and epidemiological information. A false negative result may occur if a specimen is improperly collected, transported or handled. A false negative result should be considered if patient's recent exposures or clinical presentation indicate that COVID-19 (SARS-CoV-2) is likely and diagnostic tests for other causes of illness are negative. Re-testing should be considered in cases of suspected false negatives. The limit of detection for this assay is 800 copies/mL. This SARS CoV-2 test is a real-time RT-PCR test intended for the qualitative detection of nucleic acid from SARS-CoV-2 in a nasopharyngeal swab specimen collected from individuals suspected of COVID-19 by their healthcare provider. This test has not been Food and Drug Administration (FDA) cleared or approved. This is a modified version of an approved Emergency Use Authorization (EUA) and is in the process of review by the FDA. Once authorized by the FDA, the issued EUA will be effective until the declaration that circumstances exist justifying the authorization of the emergency use of in vitro diagnostic tests for detection and/or diagnosis of COVID-19 is terminated under Section 564(b)(2) of the Act or the EUA is revoked under Section 564(g) of the Act. Fact Sheet for Healthcare Providers:https://www.[employer]/sites/default/f stanley/product/documents/F act_Sheet_HC_Providers_L iau_FTJT-LrZ-9.pdf Fact Sheet for Healthcare Patients:https://www.[employer] del[employer]/sites/default/fi les/product/documents/Fa ct_Sheet_Patients_Lyra_S ARS-CoV-2.pdf Performing Laboratory:[facility] [place] [address] [facility])2022-04-24 04:46:57 Test Item Value Reference Range Interpretation Comments SARS-COV2/RT-PCR (test Negative Not Detected, Negative, code = 9024584) See external report for linked test SARS-COV-2 PERFORMING LAB [facility] (test code = 2722895) Negative result for this test determines that SARS-CoV-2 RNA was not present in the specimen above the Limit of Detection (LOD). However, Negative results do not preclude SARS-CoV-2 infection and should not be used as the sole basis for treatment or patient management decisions. Negative results must be combined with clinical observations, patient history, and epidemiological information. A false negative result may occur if a specimen is improperly collected, transported or handled. A false negative result should be considered if patient's recent exposures or clinical presentation indicate that COVID-19 (SARS-CoV-2) is likely and diagnostic tests for other causes of illness are negative. Re-testing should be considered in cases of suspected false negatives.The limit of detection for this assay is 800 copies/mL.This SARS CoV-2 test is a real-time RT-PCR test intended for the qualitative detection of nucleic acid from SARS-CoV-2 in a nasopharyngeal swab specimen collected from individuals suspected of COVID-19 by their healthcare provider.This test has not been Food and Drug Administration (FDA) cleared or approved. This is a modified version of an approved Emergency Use Authorization (EUA) and is in the process of review by the FDA. Once authorized by the FDA, the issued EUA will be effective until the declaration that circumstances exist justifying the authorization of the emergency use ofin vitro diagnostic tests for detection and/or diagnosis of COVID-19 is terminated under Section 564(b)(2) of the Act or the EUA is revoked under Section 564(g) of the Act.Fact Sheet for Healthcare Prov iders:https://www.[employer].com/sites/default/files/product/documents/Fact_Sheet_HC _Hblbgpbkw_Kwol_HRDF-OuA-8.pdfFact Sheet for Healthcare Patients:https://www.[employer].com/sites/default/files/product/docume nts/Rffq_Oidqi_Ssyxhhcq_Kuhm_YMDM-CvR-8.pdfPerforming Laboratory:[facility], [place] [id number] 18:53:19 Test Item Value Reference Range Interpretation Comments PARTIAL THROMBOPLASTIN TIME 35.9 seconds 22.5-36.0 (BEAKER) (test code = 760) PROTHROMBIN [id number] 18:52:17 Test Item Value Reference Range Interpretation Comments PROTIME (BEAKER) 14.7 seconds 11.9-14.2 H (test code = 759) INR (BEAKER) (test 1.17 See_Comment [Automat ed message] code = 370) The system [employer] generated this result transmitted ref erence range: <=5.90. The reference range was not used to int erpret this result as normal/abnormal . RECOMMENDED COUMADIN/WARFARIN INR THERAPY RANGESSTANDARD DOSE: 2.0 - 3.0 Includes: PROPHYLAXIS for venous thrombosis, systemic embolization; TREATMENT for venous thrombosis and/or pulmonary embolus.HIGH RISK: Target INR is 2.5-3.5 for patients with mechanical heart valves.CBC W/PLT COUNT & AUTO [id number] 18:44:32 Test Item Value Reference Range Interpretation Comments WHITE BLOOD CELL COUNT (BEAKER) 8.2 K/ L 3.5-10.5 (test code = 775) RED BLOOD CELL COUNT (BEAKER) 3.52 M/ L 3.93-5.22 L (test code = 761) HEMOGLOBIN (BEAKER) (test code = 11.4 GM/DL 11.2-15.7 410) HEMATOCRIT (BEAKER) (test code = 34.8 % 34.1-44.9 411) MEAN CORPUSCULAR VOLUME (BEAKER) 98.9 fL 79.4-94.8 H (test code = 753) MEAN CORPUSCULAR HEMOGLOBIN 32.4 pg 25.6-32.2 H (BEAKER) (test code = 751) MEAN CORPUSCULAR HEMOGLOBIN CONC 32.8 GM/DL 32.2-35.5 (BEAKER) (test code = 752) RED CELL DISTRIBUTION WIDTH 13.8 % 11.7-14.4 (BEAKER) (test code = 412) PLATELET COUNT (BEAKER) (test 209 K/CU MM 150-450 code = 756) MEAN PLATELET VOLUME (BEAKER) 9.4 fL 9.4-12.3 (test code = 754) NUCLEATED RED BLOOD CELLS 0 /100 WBC 0-0 (BEAKER) (test code = 413) NEUTROPHILS RELATIVE PERCENT 67 % (BEAKER) (test code = 429) LYMPHOCYTES RELATIVE PERCENT 14 % (BEAKER) (test code = 430) MONOCYTES RELATIVE PERCENT 14 % (BEAKER) (test code = 431) EOSINOPHILS RELATIVE PERCENT 4 % (BEAKER) (test code = 432) BASOPHILS RELATIVE PERCENT 1 % (BEAKER) (test code = 437) NEUTROPHILS ABSOLUTE COUNT 5.43 K/ L 1.56-6.13 (BEAKER) (test code = 670) LYMPHOCYTES ABSOLUTE COUNT 1.11 K/ L 1.18-3.74 L (BEAKER) (test code = 414) MONOCYTES ABSOLUTE COUNT (BEAKER) 1.17 K/ L 0.24-0.36 H (test code = 415) EOSINOPHILS ABSOLUTE COUNT 0.35 K/ L 0.04-0.36 (BEAKER) (test code = 416) BASOPHILS ABSOLUTE COUNT (BEAKER) 0.06 K/ L 0.01-0.08 (test code = 417) IMMATURE GRANULOCYTES-RELATIVE 0 % 0-1 PERCENT (BEAKER) (test code = 2801) SARS-COV2/RT-PCR ([facility])2022-04-22 21:00:47 Test Item Value Reference Range Interpretation Comments SARS-COV2/RT-PCR (test code = Negative Negative 5813469) Negative result for this test determines that SARS-CoV-2 RNA was not present in the specimen above the Limit of Detection (LOD). However, Negative results do not preclude SARS-CoV-2 infection and should not be used as the sole basis for treatment or patient management decisions. Negative results must be combined with clinical observations, patient history, and epidemiological information. A false negative result may occur if a specimen is improperly collected, transported, or handled. A false negative result should be considered if patient's recent exposures or clinical presentation indicate that COVID-19 (SARS-CoV-2) is likely and diagnostic tests for other causes of illness are negative. Re-testing should be considered in cases of suspected false negatives.The limit of detection for this assay is 100 copies/mL.This SARS-CoV-2 test is a real-time RT_PCR test intended for the qualitative detection of nucleic acid from SARS-CoV-2 in a nasopharyngeal swab specimen collected from individuals suspected of COVID-19 by their healthcare provider.This test has not been Food and Drug Administration (FDA) cleared or approved. This is a modified version of an approved Emergency Use Authorization (EUA) and is in the process of review by the FDA. Once authorized by the FDA, the issued EUA will be effective until the declaration that circumstances exist justifying the authorization of the emergency use of in vitro diagnostic tests for detection and/or diagnosis of COVID-19 is terminated under Section 564(b)(2) of the Act or the EUA is revoked under Section 564(g) of the Act.Testing was performed using [employer] SARS-CoV-2 assay.Fact Sheet for Healthcare Providers:https://www.[employer]okenLayer/adelfo/RT SARS-CoV-2 HCP Fact Sheet 51- 558692.pdfFact Sheet for Healthcare Patients:https://www.[employer]/adelfo/RT SARS-CoV-2 Patient Fact Sheet EN 51-336084W6.pdfB-TYPE NATRIURETIC FACTOR (BNP) 2022-04-22 12:07:58 Test Item Value Reference Range Interpretation Comments B-TYPE NATRIURETIC PEPTIDE (BEAKER) 600 pg/mL 0-100 H (test code = 700) Director Of Market Intelligence ID - PIAYA LCOMPREHENSIVE METABOLIC [id number] 12:03:13 Test Item Value Reference Range Interpretation Comments TOTAL PROTEIN 6.8 gm/dL 6.0-8.3 (BEAKER) (test code = 770) ALBUMIN (BEAKER) 4.2 g/dL 3.5-5.0 (test code = 1145) ALKALINE PHOSPHATASE 80 U/L 40-150 (BEAKER) (test code = 346) BILIRUBIN TOTAL 0.8 mg/dL 0.2-1.2 (BEAKER) (test code = 377) SODIUM (BEAKER) (test 136 meq/L 136-145 code = 381) POTASSIUM (BEAKER) 4.6 meq/L 3.5-5.1 (test code = 379) CHLORIDE (BEAKER) 99 meq/L 98-107 (test code = 382) CO2 (BEAKER) (test 29 meq/L 22-29 code = 355) BLOOD UREA NITROGEN 12 mg/dL 7-21 (BEAKER) (test code = 354) CREATININE (BEAKER) 0.78 mg/dL 0.57-1.25 (test code = 358) GLUCOSE RANDOM 92 mg/dL 70-105 (BEAKER) (test code = 652) CALCIUM (BEAKER) 9.5 mg/dL 8.4-10.2 (test code = 697) AST (SGOT) (BEAKER) 19 U/L 5-34 (test code = 353) ALT (SGPT) (BEAKER) 16 U/L 6-55 (test code = 347) EGFR (BEAKER) (test 70 mL/min/1.73 ESTIMA MINDA GFR IS code = 1092) sq m NOT ACCURATE CREATININE CLEARANCE IN PREDICTING GLOMERULAR FILTRATION RATE . ESTIMATED GFR I S NOT APPLICABLE FOR DIALYSIS PATIEN TS. Director Of Market Intelligence ID - PIAYA LPROTHROMBIN TIME/[id number] 11:43:06 Test Item Value Reference Range Interpretation Comments PROTIME (BEAKER) 15.1 seconds 11.9-14.2 H (test code = 759) INR (BEAKER) (test 1.21 See_Comment [Automat ed message] code = 370) The system [employer] generated this result transmitted ref erence range: <=5.90. The reference range was not used to int erpret this result as normal/abnormal . RECOMMENDED COUMADIN/WARFARIN INR THERAPY RANGESSTANDARD DOSE: 2.0 - 3.0 Includes: PROPHYLAXIS for venous thrombosis, systemic embolization; TREATMENT for venous thrombosis and/or pulmonary embolus.HIGH RISK: Target INR is 2.5-3.5 for patients with mechanical heart valves.CBC W/PLT COUNT & AUTO [id number] 11:36:56 Test Item Value Reference Range Interpretation Comments WHITE BLOOD CELL COUNT (BEAKER) 6.5 K/ L 3.5-10.5 (test code = 775) RED BLOOD CELL COUNT (BEAKER) 3.47 M/ L 3.93-5.22 L (test code = 761) HEMOGLOBIN (BEAKER) (test code = 11.1 GM/DL 11.2-15.7 L 410) HEMATOCRIT (BEAKER) (test code = 34.7 % 34.1-44.9 411) MEAN CORPUSCULAR VOLUME (BEAKER) 100.0 fL 79.4-94.8 H (test code = 753) MEAN CORPUSCULAR HEMOGLOBIN 32.0 pg 25.6-32.2 (BEAKER) (test code = 751) MEAN CORPUSCULAR HEMOGLOBIN CONC 32.0 GM/DL 32.2-35.5 L (BEAKER) (test code = 752) RED CELL DISTRIBUTION WIDTH 13.7 % 11.7-14.4 (BEAKER) (test code = 412) PLATELET COUNT (BEAKER) (test 198 K/CU MM 150-450 code = 756) MEAN PLATELET VOLUME (BEAKER) 9.7 fL 9.4-12.3 (test code = 754) NUCLEATED RED BLOOD CELLS 0 /100 WBC 0-0 (BEAKER) (test code = 413) NEUTROPHILS RELATIVE PERCENT 64 % (BEAKER) (test code = 429) LYMPHOCYTES RELATIVE PERCENT 14 % (BEAKER) (test code = 430) MONOCYTES RELATIVE PERCENT 16 % (BEAKER) (test code = 431) EOSINOPHILS RELATIVE PERCENT 5 % (BEAKER) (test code = 432) BASOPHILS RELATIVE PERCENT 1 % (BEAKER) (test code = 437) NEUTROPHILS ABSOLUTE COUNT 4.19 K/ L 1.56-6.13 (BEAKER) (test code = 670) LYMPHOCYTES ABSOLUTE COUNT 0.92 K/ L 1.18-3.74 L (BEAKER) (test code = 414) MONOCYTES ABSOLUTE COUNT (BEAKER) 1.01 K/ L 0.24-0.36 H (test code = 415) EOSINOPHILS ABSOLUTE COUNT 0.30 K/ L 0.04-0.36 (BEAKER) (test code = 416) BASOPHILS ABSOLUTE COUNT (BEAKER) 0.06 K/ L 0.01-0.08 (test code = 417) IMMATURE GRANULOCYTES-RELATIVE 1 % 0-1 PERCENT (BEAKER) (test code = 2801) CT, CTA [id number] 15:27:00Unlisted Reason for Exam - Click Yes and Enter Reason Below->YesUnlisted Reason for Exam->Pre op planning, aortic anatomy and cannulation site identification, severe MR, [facility] : 1935 Sex: FAddendum BeginsREPORT STATUS:A Addendum: I agree with the previously described non vascular findings. Sigmoid diverticulosis, without evidence for diverticulitis. Signed: Marvin Soaresip MDReport Verified Date/Time: 04/18/2022 15:27:52 Reading Location: [facility] Diagnostic Imaging Reading Room - [facility] [id number] EndsFINAL REPORT CT angiography of the thoracoabdominal aorta and pelvic arteries, 16-Apr-22 INDICATION: This is a 86 year old female with with severe mitral regurgitation tricuspid regurgitation, presents for preoperative assessment, for aortic anatomyand cannulation site. TECHNIQUE: Spiral acquisition before and during intravenous contrast administra tion using a [employer] multidetector CT scanner. Images were obtained before and during the dynamic passageof intravenous contrast material. Multi-planar 3-D volume- rendering reconstruction was performed using an independent workstation interactively by the interpreting physician as well as the 3-D specialist for optimal visualisation of the thoracoabdominal aorta, the pelvic arteries as well as its proximal branches. Please refer to the contrast sheet scanned in the EPIC system for the amount and route of contrast given. This exam was performed according to our departmental dose-optimisation programme, which includes automated exposure control, adjustment of the mA and/or kV according to patient size and/or use of iterative reconstruction technique. Dose modulation, iterative reconstruction, and/or weight based adjustment of the mA/kV was utilized to reduce the radiation dose to as low as reasonably achievable. FINDINGS: VASCULAR: The central pulmonary artery is normal in calibre. The cardiac chambers demonstrate normal atrioventricular and ventriculoarterial concordance, and systemic and pulmonary venous return. The left ventricle is normal in size. No pericardial effusion is seen. Left atrial enlargement is identified. Minimal mitral annular calcification is seen in the posterior mitral valve annulus. Coronary artery origins are normal. Focal calcification identified in the distal segment of the proximal LAD as well as in the mid LAD. In the precontrast series, minimal consolidation is seen at the sinotubular junction. The ascending thoracic aorta is relatively free of calcification. The transverse arch is relatively free of consolidation. The descending thoracic aorta is minimal calcification identified. The abdominal aorta is mildly tortuous, with mild calcification identified. No ectasia or aneurysmal dilation is seen. The common iliac, external iliac, common femoral, and the visualised superficial femoral arteries, bilaterally, are widely patent with scattered calcification identified. The arch vessel branching pattern is normal and the visualized arch vessels are widely patent proximally. Quantitaive dimensions of the aorta are as follows: 3.6 x 3.4 cm at the sinuses of Valsalva (the sino- tubular junction is preserved); 3.2 cm at the proximal ascending thoracic aorta; 3.4 cm at the mid ascending aorta; 3.0 cm at the distal ascending aorta; 2.8 cm at the mid transverse arch; 2.5x 1.6 cm at at the proximal descending aorta; 2.7 cm at the mid descending aorta; 2.3 cm at the diaphragmatic hiatus. In the abdomen, the aorta measures 2.1 cm at the mesenteric segment; 1.7 cm at the r enal segment,; and 1.6 cm at the aortic bifurcation. The common iliac, external iliac, common femoral, and the visualized superficial femoral arteries, bilaterally, are widely patent with no obstructive lesion identified. Only minimal eccentric calcification identified, bilaterally. The proximal left and right external iliac arteries measure 6 to 7 mm in diameter. Calcification is identified the takeoff of the SMA, with probable at most mild to moderate lesion present. No significant obstructive lesion is identified. Remainder of the coeliac axis is well enhanced by contrast. The SMA is well enhanced by contrast and no stenosis is seen. Single left and right renal arteries identified. The left renal artery is widely patent. The right renal artery has nonobstructive calcification seen proximally.In fact, there is also a tiny superior accessory left renal artery present. The left brachycephalic vein is immediately posterior to the upper sternum, at image 74. The distal ascending thoracic aorta,at image 91 is approximately 1.7 cm posterior to the sternum. The mid ascending thoracic aorta, at image 123 is approximately 3.2 cm posterior to the sternum. The RV free wall, at image 163 is in closeproximity to the sternum. Please see snapshot for details. NON-VASCULAR: Tiny echodensity is identified in the right thyroid lobe, at image 18, measure at most 2 to 3 mm in diameter, likely not clinically significant. An addendum dictated thereafter, if needed. The chest wall and mediastinum appear normal. No significant adenopathy is identified. Calcified lymph nodes are seen in the right hilum indicating prior granulomatous disease. In the lung windows, no endobronchial lesion is seen, and no pleural effusion is identified. Some dependent changes are seen. Cardiac granuloma is identified in the left lower lobe at image 177, indicating prior granulomatous disease. Another calcified nodule is identified in the right lung at image 102, as well as 113. In the abdomen, the liver and spleen appears unremarkable. The liver edge is smooth. No abnormal enhancing structure is identified. Liver cyst is id entified in the left hepatic lobe at image 224, that is water density indicating simple in nature. The gallbladder is unremarkable. The adrenal glands are not enlarged. No acute renal pathology seen and no hydronephrosis or perirenal fluid collection is identified. Small renal cysts are seen in the kidneys, some are too small to characterise. See annotation for details. The larger one has no enhancement after contrast administration. Bowel is incompletely assessed by CT angiography as enteric contrast is not given. No obvious bowel dilation is identified. Colonic diverticulum is seen especially in the distal colon with no inflammatory changes identified. The bladder is identified. The uterus not seen. In the dependent portion of the pelvis, some fluid is identified, likely nonspecific in nature. No free air or free fluid is seen in the abdomen pelvis and no significant retroperitoneal adenopathyis identified. In the bony windows, no acute bony pathology is seen. There is scoliosis identified. In addition, surgical hardware is seen in the lower lumbar level, with associated laminectomies. There is also left hip replacement. CONCLUSIONS: 1. The thoraco- abdominal aorta is normal in course, contour, and calibre. The ascending thoracic aorta only had minimal calcification seen at level of the aortic root. Note regarding the diameter of the proximal descending thoracic aorta and at this level itis somewhat tortuous. No discrete coarctation is seen. There is no evidence of acute aortic pathology, specifically, there is no dissection, intramural hematoma, or contained rupture. Quantitative dimension of the thoracoabdominal aorta are as described above. The pelvic arteries are patent with minimal calcification identified. 2. Minimal calcification is seen in the LAD and LCx territory. Motion artefact is seen. Left and right atrial enlargement is identified. The free wall of the right ventricleis located immediately posterior to the sternum. 3. No acute pulmonary pathology is identified. Evidence of prior granulomatous disease. 4. Other findings as described above. 5. An addendum will be dictated by the Information Delivery Analyst Radiologist regarding the nonvascular findings. THE REPORT WILL ONLY BE CONSIDERED COMPLETE AFTER THE ADDENDUM HAS BEEN DICTATED. Signed: Fabrizio Cardona MDReport Verified Date/Time: 04/17/2022 16:14:11 CT, CTA, [id number] 15:27:00Unlisted Reason for Exam - Click Yes and Enter Reason Below->YesUnlisted Reason for Exam->Pre op planning, aortic anatomy and cannulation site identification, severe MR, [facility] : 1935 Sex: FAddendum BeginsREPORT STATUS:A Addendum: I agree with the previously described non vascular findings. Sigmoid diverticulosis, without evidence for diverticulitis. Signed: Jose Ramon Soares MDReport Verified Date/Time: 04/18/2022 15:27:52 Reading Location: [facility] Diagnostic Imaging Reading Room - [address]12Addendum EndsFINAL REPORT CT angiography of the thoracoabdominal aorta and pelvic arteries, 16-Apr-22 INDICATION: This is a 86 year old female with with severe mitral regurgitation tricuspid regurgitation, presents for preoperative assessment, for aortic anatomyand cannulation site. TECHNIQUE: Spiral acquisition before and during intravenous contrast administra tion using a GE multidetector CT scanner. Images were obtained before and during the dynamic passageof intravenous contrast material. Multi-planar 3-D volume- rendering reconstruction was performed using an independent workstation interactively by the interpreting physician as well as the 3-D specialist for optimal visualisation of the thoracoabdominal aorta, the pelvic arteries as well as its proximal branches. Please refer to the contrast sheet scanned in the EPIC system for the amount and route of contrast given. This exam was performed according to our departmental dose-optimisation programme, which includes automated exposure control, adjustment of the mA and/or kV according to patient size and/or use of iterative reconstruction technique. Dose modulation, iterative reconstruction, and/or weight based adjustment of the mA/kV was utilized to reduce the radiation dose to as low as reasonably achievable. FINDINGS: VASCULAR: The central pulmonary artery is normal in calibre. The cardiac chambers demonstrate normal atrioventricular and ventriculoarterial concordance, and systemic and pulmonaryvenous return. The left ventricle is normal in size. No pericardial effusion is seen. Left atrial enlargement is identified. Minimal mitral annular calcification is seen in the posterior mitral valve annulus. Coronary artery origins are normal. Focal calcification identified in the distal segment of the proximal LAD as well as in the mid LAD. In the precontrast series, minimal consolidation is seen at the sinotubular junction. The ascending thoracic aorta is relatively free of calcification. The transverse arch is relatively free of consolidation. The descending thoracic aorta is minimal calcification identified. The abdominal aorta is mildly tortuous, with mild calcification identified. No ectasia or aneurysmal dilation is seen. The common iliac, external iliac, common femoral, and the visualised superficial femoral arteries, bilaterally, are widely patent with scattered calcification identified. The arch vessel branching pattern is normal and the visualized arch vessels are widely patent proximally. Quantitaive dimensions of the aorta are as follows: 3.6 x 3.4 cm at the sinuses of Valsalva (the sino- tubular junction is preserved); 3.2 cm at the proximal ascending thoracic aorta; 3.4 cm at the mid ascending aorta; 3.0 cm at the distal ascending aorta; 2.8 cm at the mid transverse arch; 2.5 x 1.6 cm at at the proximal descending aorta; 2.7 cm at the mid descending aorta; 2.3 cm at the diaphragmatic hiatus. In the abdomen, the aorta measures 2.1 cm at the mesenteric segment; 1.7 cm at the re nal segment,; and 1.6 cm at the aortic bifurcation. The common iliac, external iliac, common femoral, and the visualized superficial femoral arteries, bilaterally, are widely patent with no obstructivelesion identified. Only minimal eccentric calcification identified, bilaterally. The proximal left and right external iliac arteries measure 6 to 7 mm in diameter. Calcification is identified the takeoff of the SMA, with probable at most mild to moderate lesion present. No significant obstructive lesion is identified. Remainder of the coeliac axis is well enhanced by contrast. The SMA is well enhanced by contrast and no stenosis is seen. Single left and right renal arteries identified. The left renal artery is widely patent. The right renal artery has nonobstructive calcification seen proximally. In fact, there is also a tiny superior accessory left renal artery present. The left brachycephalic vein is immediately posterior to the upper sternum, at image 74. The distal ascending thoracic aorta, at image 91 is approximately 1.7 cm posterior to the sternum. The mid ascending thoracic aorta, at image 123 is approximately 3.2 cm posterior to the sternum. The RV free wall, at image 163 is in close proximity to the sternum. Please see snapshot for details. NON-VASCULAR: Tiny echodensity is identified in the right thyroid lobe, at image 18, measure at most 2 to 3 mm in diameter, likely not clinically significant. An addendum dictated thereafter, if needed. The chest wall and mediastinum appear normal. No significant adenopathy is identified. Calcified lymph nodes are seen in the right hilum indicating prior granulomatous disease. In the lung windows, no endobronchial lesion is seen, and no pleural effusion is identified. Some dependent changes are seen. Cardiac granuloma is identified in the left lower lobe at image 177, indicating prior granulomatous disease. Another calcified nodule is identified in the right lung at image 102, as well as 113. In the abdomen, the liver and spleen appears unremarkable. The liver edge is smooth. No abnormal enhancing structure is identified. Liver cyst is identified in the left hepatic lobe at image 224, that is water density indicating simple in nature. Thegallbladder is unremarkable. The adrenal glands are not enlarged. No acute renal pathology seen and no hydronephrosis or perirenal fluid collection is identified. Small renal cysts are seen in the kidneys, some are too small to characterise. See annotation for details. The larger one has no enhancement after contrast administration. Bowel is incompletely assessed by CT angiography as enteric contrastis not given. No obvious bowel dilation is identified. Colonic diverticulum is seen especially in the distal colon with no inflammatory changes identified. The bladder is identified. The uterus not seen. In the dependent portion of the pelvis, some fluid is identified, likely nonspecific in nature. Nofree air or free fluid is seen in the abdomen pelvis and no significant retroperitoneal adenopathy is identified. In the bony windows, no acute bony pathology is seen. There is scoliosis identified. Inaddition, surgical hardware is seen in the lower lumbar level, with associated laminectomies. There is also left hip replacement. CONCLUSIONS: 1. The thoraco-abdominal aorta is normal in course, contour, and calibre. The ascending thoracic aorta only had minimal calcification seen at level of the aortic root. Note regarding the diameter of the proximal descending thoracic aorta and at this level it is somewhat tortuous. No discrete coarctation is seen. There is no evidence of acute aortic pathology, specifically, there is no dissection, intramural hematoma, or contained rupture. Quantitative dimension of the thoracoabdominal aorta are as described above. The pelvic arteries are patent with minimalcalcification identified. 2. Minimal calcification is seen in the LAD and LCx territory. Motion artefact is seen. Left and right atrial enlargement is identified. The free wall of the right ventricle is located immediately posterior to the sternum. 3. No acute pulmonary pathology is identified. Evidence of prior granulomatous disease. 4. Other findings as described above. 5. An addendum will be dictated by the Information Delivery Analyst Radiologist regarding the nonvascular findings. THE REPORT WILL ONLY BE CONSIDER ED COMPLETE AFTER THE ADDENDUM HAS BEEN DICTATED. Signed: Fabrizio Cardona MDReport Verified Date/Time: 04/17/2022 16:14:11 [id number] 10:19:24 Test Item Value Reference Range Interpretation Comments POC-Creatinine (test 1.0 mg/dL 0.6-1.3 : TESTE D AT [facility] 1317 code = 22108-1) [facility] 77 478: Director Of Market Intelligence/Techni juan ID = [id number] for Rebecca Guillen POC-EGFR (test code 53 mL/min/1.73M2 = 63819-8) [id number] 10:19:24 Test Item Value Reference Range Interpretation Comments POC-CREATININE 1.0 mg/dL 0.6-1.3 : TESTED AT [facility] 1317 (BEROBI) (test [facility], code = 1859) [facility] 77 478: Director Of Market Intelligence/Techni juan ID = [id number] for Rebecca Bello POC-EGFR 53 mL/min/1.73M2 (BEAKER) (test code = 1860) - XR CHEST 2 [id number] 00:00:00 [facility] : 1935 Sex: FFAX: Chace Sanz MD [phone] [place]: St: REG FAX: Christel Alvarez Name: SCARLETT SMILEY [facility] : 1935 Age/S: 86/F [address] [place] [address] Unit #: [id number] Loc: [place] [address] Phys: Christel Alvarez LEHR ATTENDANT Acct: [id number] Dis Date: Status: REG [facility] PHONE #: [phone] Exam Date: 04/01/2022 1624 FAX #: [phone] Reason: PREOP EXAMS: CPT CODE: [id number] XR CHEST 2 V 34485 PROCEDURE INFORMATION: Exam: XR Chest Exam date and time: 04/01/2022 3:57 PM Age: 86 years old Clinical indication: Screening exam; Pre-operative exam; Cardiovascular screening; Additional info: Preop TECHNIQUE: Imaging protocol: Radiologic exam of the chest. Views: 2 views. COMPARISON: No relevant prior studies available. FINDINGS: Lungs: No focal consolidations. Pleural spaces: Unremarkable. No p leural effusion. No pneumothorax. Heart/Mediastinum: Unremarkable. Vasculature: Aortic atherosclerotic calcifications. Bones/joints: Diffuse osseous demineralization. IMPRESSION: No acute cardiopulmonary abnormalities. at 0739 Reported and signed by: Vazquez Amaro M.D. CC: Chace Nava MD; Christel Alvarez NP Technologist: RT Taylor(R) Trnscrd Date/Time/By: 04/02/2022 (0739) : By: [email or web address] Orig Print D/T: S:04/02/2022 (0743) PAGE 1 Signed ReportCOVID 19 Asymptomatic IH [id number] 19:00:00 Test Item Value Reference Range Interpretation Comments COVID 19 Asymptomatic Negative Negative A nega tive result is IH AG (test code = presumpti ve and should COVNONPUIAG) be confirmedwit h an FDA authorized mole cular assay, if neces mylene forpatient edi gement.A positive result does not rule out co-inf ections withother patho gens.This test detects beba th viable (live) and non-viable,SARS -CoV, and SARS-CoV-2. Amelia t performance dep ends on theamount of vi donna (antigen) in th e sample.This amelia t has not been FDA cleare d or approved; the t est hasbeen authori zed by FDA under an Em ergency Use Authorizati on(EUA) for use by labo ratories certified under the CLIA thatmeet the requirements to perform moderate, high or waivedcomplexit y tests. BASIC METABOLIC [id number] 16:31:00 Test Item Value Reference Range Interpretation Comments SODIUM (test code = NA) 134 mEq/L 134-147 N POTASSIUM (test code = 4.5 mEq/L 3.4-5.0 N K) CHLORIDE (test code = 100 mEq/L 100-108 N CL) CARBON DIOXIDE (test 27 mEq/l 21-33 N code = CO2) ANION GAP (test code = 12 0-20 N GAP) GLUCOSE (test code = 75 mg/dL 70-110 N GLU) BLOOD UREA NITROGEN 15 mg/dL 7-18 N (test code = BUN) GLOMERULAR FILTRATION 52.7 70-80 L Units of measure = RATE (test code = GFR) ml/mi n/1.73 m2 CREATININE (test code = 1.0 mg/dL 0.6-1.3 N CREAT) CALCIUM (test code = 9.7 mg/dL 8.0-10.5 N CA) PROTHROMBIN [id number] 16:29:00 Test Item Value Reference Range Interpretation Comments PROTHROMBIN TIME 19.7 SECONDS 9.3-12.9 H PATIENT (test code = PTP) INTERNATIONAL NORMAL 1.8 0.8-1.2 H TARGET INR BY RATIO (test code = INDICATIO N Indication INR) INR1. Prophylax is of venous thrombos is 2.0 - 3.0 (orthope dic surgery), Proph ylaxis of venous throm bosis (other than hig h-risk surgery), Treat ment of Deep Vein Thrombosis/Pulm onary Embolism, Preve ntion of systemic emb olism - Tissue heart va lves, Acute Myocardia l Infarction (to prevent systemic emboli sm), Valvular heart disease, Atrial Fibrillation, Bileaflet mecha nical valve in aortic position.2. Mec hanical prosthetic valv es (high risk), 2. 5 - 3.5 Presence of Lup us Anticoagulant o r Antiphospholipi d Antibodies, Pre vention of systemic emb olism - Acute Myocardia l Infarction (to prevent recurrent infar ct). CBC W/AUTO [id number] 16:22:00 Test Item Value Reference Range Interpretation Comments WHITE BLOOD CELL (test code = 8.5 x10 3/uL 4.5-11.0 N WBC) RED BLOOD CELL (test code = 3.60 x10 6/uL 3.54-5.02 N RBC) HEMOGLOBIN (test code = HGB) 12.0 g/dL 11.0-15.0 N HEMATOCRIT (test code = HCT) 36.0 % 33.0-45.0 N MEAN CELL VOLUME (test code = 100.0 fL 81.0-99.0 H MCV) MEAN CELL HGB (test code = MCH) 33.3 pg 27.0-33.0 H MEAN CELL HGB CONCETRATION 33.3 g/dL 33.0-37.0 N (test code = MCHC) RED CELL DISTRIBUTION WIDTH CV 12.5 % 11.5-14.5 N (test code = RDW) PLATELET COUNT (test code = 225 x10 3/uL 150-400 N PLT) NEUTROPHIL % (test code = NT%) 66.9 % 56.0-77.0 N LYMPHOCYTE % (test code = LY%) 14.3 % 14.0-32.0 N NEUTROPHIL # (test code = NT#) 5.68 x10 3/uL 2.0-7.6 N LYMPHOCYTE # (test code = LY#) 1.21 x10 3/uL 1.0-3.8 N MANUAL DIFF REQUIRED (test code NO = MDIFF) RED CELL DISTRIBUTION WIDTH SD 45.7 fL 37.0-54.0 N (test code = RDW-SD) MEAN PLATELET VOLUME (test code 9.6 fL 7.0-9.0 H = MPV) IMMATURE GRANULOCYTE % (test 0.2 % 0.0-2.0 N code = IG%) MONOCYTE % (test code = MO%) 13.7 % 4.8-9.0 H EOSINOPHIL % (test code = EO%) 4.1 % 0.3-3.7 H BASOPHIL % (test code = BA%) 0.8 % 0.0-2.0 N NUCLEATED RBC % (test code = 0.0 % 0-0 N NRBC%) IMMATURE GRANULOCYTE # (test 0.02 x10 3/uL 0.00-0.03 N code = IG#) MONOCYTE # (test code = MO#) 1.16 x10 3/uL 0.1-0.8 H EOSINOPHIL # (test code = EO#) 0.35 x10 3/uL 0.0-0.2 H BASOPHIL # (test code = BA#) 0.07 x10 3/uL 0.0-0.2 N NUCLEATED RBC # (test code = 0.00 x10 3/uL 0.0-0.1 N NRBC#) - MRI L-SPINE W/O [id number] 13:16:00 Patient Name: SCARLETT SMILEY Unit No: [id number] EXAMS: CPT CODE: [id number] MRI L-SPINE W/O CONT [id number] TECHNIQUE: Multiplanar, multisequence MRI examination performed of [...] of L4-L5 and L5-S1. Bone Lesion: Marked degenerativemarrow signal is seen at L1-L2. Fracture: None present. Paraspinal Soft Tissues: A left renal cysticlesion is partially visualized. Conus Medullaris: Termination at L1 level. Morphology is normal. L1/2: Grade 1 retrolisthesis. Severe disc degeneration with endplate marrow changes at large disc bulge.Moderate central canal stenosis is present as well as severe right lateral recess stenosis. Moderateleft, severe right foraminal stenosis. L2/3: Discectomy and [...] and signed by: Bartolo Brumfield M.D. [facility] NAME: SCARLETT SMILEY[address] PHYS: Lobo Villalba MD : 1935 AGE: 84 SEX: F [place] [id number] LOC: Y.MRI PHONE #: [phone] EXAM DATE: 12/02/2019 STATUS: DEP CLI FAX #: [phone] RAD #: D/C DT PAGE 1 Signed Report (CONTINUED) PatientName: SCARLETT SMILEY Unit No: [id number] EXAMS: CPT CODE: [id number] MRI L-SPINE W/O CONT [id number] (Continued) CC: Richi Sanchez M.D. Technologist: AMRIK FORD, UMESH Transcribed D/ (1316) SilvanoRika [facility] NAME: SCARLETT SMILEY[address] PHYS: Lobo Villalba MD : 1935 AGE: 84 SEX: F [place] [address] LOC:Y.MRI PHONE #: [phone] EXAM DATE: 12/02/2019 STATUS: DEP CLI FAX #: [phone] RAD #: D/C DT PAGE 2 Signed Report Patient Name: SCARLETT SMILEY Unit No: [id number] EXAMS: CPT CODE: [id number] L-SPINE W/O CONT [id number] (Continued) Orig Print D/T: S: 12/05/2019 (1320) [facility] NAME: SCARLETT SMILEY [address] PHYS: Lobo Villalba MD : 1935 AGE: 84 SEX: F [place] [address] LOC: Y.MRI PHONE #: [phone] EXAM DATE: 12/02 STATUS: DEP CLI FAX #: [phone] RAD #: D/C DT PAGE 3 Signed Report
[2022-08-24] MEDS ORDERED: ACETAMINOPHEN 325 MG TABLET ONE ×2 (19:00→20:00)
--- NOTE | 2022-08-24 19:17 | RAD REPORT ---
EXAM DESCRIPTION: RAD - Elbow Right 3 View - 08/24/2022 7:05 pm CLINICAL HISTORY: PAIN COMPARISON: No comparisons FINDINGS: Soft tissue laceration is seen posteriorly. Bones are demineralized. No acute fracture see n. No radiopaque foreign body.
--- NOTE | 2022-08-24 19:17 | RAD REPORT ---
EXAM DESCRIPTION: RAD - Humerus Right - 08/24/2022 7:05 pm CLINICAL HISTORY: PAIN COMPARISON: No comparisons FINDINGS: No fracture or radiopaque foreign body is seen. No soft tissue gas is evident.
[2022-08-24] MEDS ORDERED: HYDROCODONE/APAP 10/325 TAB ONE (19:54)
[2022-08-24] MEDS ORDERED: LIDOCAINE 1% MPF 30 ML VIAL ONE (19:57)
--- NOTE | 2022-08-24 21:35 | EDPHYS ---
Physician Documentation [facility] Name: Scarlett Garrett Age: 87 yrs Sex: Female : 1935 Arrival Date: 08/24/2022 Time: 18:44 Bed 17 Private MD: ED Physician Anton Cha HPI: 08/24 19:00 This 87 yrs old Female presents to ER via EMS with complaints of Laceration To Arm, cp Fall Injury. 19:00 The patient has a laceration occurred at home, resulted from onto broken bottle of cp wine. The laceration(s) is(are) located on the right upper arm. Onset: The symptoms/episode began/occurred just prior to arrival. Associated signs and symptoms: The patient has no apparent associated signs or symptoms. Historical: - Allergies: 18:49 Cipro; em6 18:49 Levaquin; em6 - PMHx: 18:49 Arthritis; Atrial Fib; Depression; Hypertension; Hypothyroidism; Hypothyroidism; mitral em6 valve; severe tricuspid valve regurgitation; - PSHx: 18:49 valve replacement; em6 - Immunization history:: Adult Immunizations up to date. - Immunization history: Last tetanus immunization: - up to date. - Social history:: Smoking status: Patient denies any tobacco usage or history of. ROS: 19:05 Skin: Positive for laceration(s), of the right upper arm. cp 19:05 Constitutional: Negative for body aches, chills, fever, poor PO intake. cp 19:05 Cardiovascular: Negative for chest pain, palpitations. 19:05 Neuro: Negative for altered mental status, headache, loss of consciousness, syncope, weakness. 19:05 All other systems are negative. Exam: 19:55 Constitutional: The patient appears in no acute distress, alert, awake, non-toxic, well cp developed, well nourished. 19:55 Head/Face: Normocephalic, atraumatic. cp 19:55 Neck: ROM/movement: is normal, is supple, without pain, no range of motions limitations. 19:55 Cardiovascular: Rate: bradycardic, Edema: is not appreciated, JVD: is not appreciated. 19:55 Respiratory: the patient does not display signs of respiratory distress, Respirations: normal, no use of accessory muscles, no retractions, labored breathing, is not present. 19:55 Abdomen/GI: Inspection: abdomen appears normal, Palpation: abdomen is soft and non-tender, in all quadrants. 19:55 Skin: injury, laceration(s), of the right upper arm. Vital Signs: 18:48 BP 140 / 111; Pulse 112; Resp 20; Temp 97.7; Pulse Ox 100% on R/A; Weight 64.41 kg; em6 Height 5 ft. 9 in. (175.26 cm); Pain 0/10; 19:25 BP 128 / 101; Pulse 52; Resp 16; Pulse Ox 100% ; em6 20:00 BP 144 / 61; Pulse 45; Resp 16; Pulse Ox 100% on R/A; em6 20:30 BP 139 / 71; Pulse 43; Resp 16; Pulse Ox 100% on R/A; em6 21:00 BP 141 / 65; Pulse 43; Resp 16; Pulse Ox 100% on R/A; em6 18:48 Body Mass Index 20.97 (64.41 kg, 175.26 cm) em6 20:00 provider notified of low heart rate em6 Geovanni Coma Score: 18:48 Eye Response: spontaneous(4). Verbal Response: oriented(5). Motor Response: obeys em6 commands(6). Total: 15. 19:25 Eye Response: spontaneous(4). Verbal Response: oriented(5). Motor Response: obeys em6 commands(6). Total: 15. 20:00 Eye Response: spontaneous(4). Verbal Response: oriented(5). Motor Response: obeys em6 commands(6). Total: 15. 20:30 Eye Response: spontaneous(4). Verbal Response: oriented(5). Motor Response: obeys em6 commands(6). Total: 15. 21:00 Eye Response: spontaneous(4). Verbal Response: oriented(5). Motor Response: obeys em6 commands(6). Total: 15. Trauma Score (Adult): 18:48 Eye Response: spontaneous(1); Verbal Response: oriented(1); Motor Response: obeys em6 commands(2); Systolic BP: > 89 mm Hg(4); Respiratory Rate: 10 to 29 per min(4); [place] Score: 15; Trauma Score: 12 MDM: 18:48 Patient medically screened. cp 08/24 18:48 Order name: XRAY Elbow RIGHT 3 view cp 08/24 18:48 Order name: XRAY Humerus RIGHT cp 08/24 21:00 Order name: CT Head C Spine cp 08/24 21:00 Order name: Dressing - Wound; Complete Time: 21:16 cp Administered Medications: 19:05 Drug: Tylenol 650 mg Route: PO; em6 19:41 Follow up: Response: No adverse reaction em6 20:00 Drug: Lidocaine-Epinephrine -1%: (1:100,000) 20 ml {Note: administered by bart bullock .} em6 Volume: 20 ml; Route: Infiltration; 20:02 Drug: Tylenol 650 mg Route: PO; em6 20:39 Follow up: Response: No adverse reaction em6 Disposition Summary: 08/24/22 21:34 Discharge Ordered Location: Home cp Problem: new cp Symptoms: have improved cp Condition: Stable cp Diagnosis - Laceration without foreign body of right upper arm, initial encounter cp Followup: cp - With: Private Physician - When: 2 - 3 days - Reason: Wound Recheck Discharge Instructions: - Discharge Summary Sheet cp - Laceration Care, Adult cp - Sutured Wound Care cp Forms: - Medication Reconciliation Form cp - Thank You Letter cp - Antibiotic Education cp - Prescription Opioid Use cp Prescriptions: - Cephalexin 500 mg Oral Capsule - take 1 capsule by ORAL route every 8 hours for 10 days; 30 capsule; Refills: 0, cp Product Selection Permitted Signatures: Dispatcher [employer] EDLópez Mercado PA PA cp Martinez, Erika RN RN em6 Corrections: (The following items were deleted from the chart) 21:47 21:04 Head C Spine Mpr Wo Con ordered. EDMS EDMS
--- NOTE | 2022-08-24 21:35 | ER ---
Nurse's Notes [facility] Name: Scarlett Garrett Age: 87 yrs Sex: Female : 1935 Arrival Date: 08/24/2022 Time: 18:44 Bed 17 Private MD: Diagnosis: Laceration without foreign body of right upper arm, initial encounter Presentation: 08/24 18:48 Coronavirus screen: Vaccine status:. Ebola Screen: Patient negative for fever greater em6 than or equal to 101.5 degrees Fahrenheit, and additional compatible Ebola Virus Disease symptoms. Initial Sepsis Screen: Does the patient meet any 2 criteria? No. Patient's initial sepsis screen is negative. Does the patient have a suspected source of infection? No. Patient's initial sepsis screen is negative. Risk Assessment: Do you want to hurt yourself or someone else? Patient reports no desire to harm self or others. Onset of symptoms was August 24, 2022 at 18:00. 18:48 Method Of Arrival: EMS: [facility] em6 18:48 Acuity: VANESA 3 em6 18:48 Care prior to arrival: Bleeding of injury controlled. Mechanism of Injury: patient fell em6 while holding wine glass. wine bottle shattered and she cut herself in the right arm. Trauma event details: Injury occurred in the [facility], Injury occurred: at home. Injury occurred: August 24, 2022 Injury occurred at: 18:00. 18:50 Chief complaint: EMS states: "Patient was walking and had a wine bottle in hand and em6 fell. she cut her arm with the glass from the broken bottle, No LOC no pain. She states having a Headache. 20G in Left AC started on fluids". Complicating Factors: cut herself with wine bottle glass when she fell and shattered the bottle. Trauma Activation: Alert Physician: ED Physician; Name: bart whitehead; Notified At: ; Arrived At: Physician: General Surgeon; Name: ; Notified At: ; Arrived At: Physician: Radiology; Name: ; Notified At: ; Arrived At: Physician: Respiratory; Name: ; Notified At: ; Arrived At: Physician: Lab; Name: ; Notified At: ; Arrived At: Historical: - Allergies: 18:49 Cipro; em6 18:49 Levaquin; em6 - PMHx: 18:49 Arthritis; Atrial Fib; Depression; Hypertension; Hypothyroidism; Hypothyroidism; mitral em6 valve; severe tricuspid valve regurgitation; - PSHx: 18:49 valve replacement; em6 - Immunization history:: Adult Immunizations up to date. - Immunization history: Last tetanus immunization: - up to date. - Social history:: Smoking status: Patient denies any tobacco usage or history of. Screenin:49 Abuse screen: Denies threats or abuse. Nutritional screening: No deficits noted. em6 Tuberculosis screening: No symptoms or risk factors identified. Fall Risk Fall in past 12 months (25 points). IV access (20 points). Mental Status- Oriented to own ability (0 pts). Total Bolanos Fall Scale indicates Low Risk Score (25-44 pts). Fall prevention measures have been instituted. Side Rails Up X 2 Placed close to Nursing Station Frequent Obs/Assesments occuring As available Patient and Family Educated on Fall Prevention Program and strategies. Primary Survey: 18:48 NO uncontrolled hemorrhage observed. em6 18:48 Breathing/Chest: Respiratory effort: spontaneous, Breath sounds: clear, Respiratory em6 pattern: regular, Chest inspection: symmetrical rise and fall of the chest. Circulation: Hemorrhage: No external hemorrhage noted. Pulses: palpable right arm. Skin color: pink, Skin temperature: warm, Cardiac rhythm: sinus rhythm Heart tones present. Disability Pupils are equal, round, reactive to light and accommodation. Client is alert. Exposure/Environment: Obvious injury(ies) are noted at this time: laceration to the right arm. bleeding under control A warming method has been applied: A warm blanket has been provided to the patient. 19:39 Reassessment Breathing: Respiratory effort Spontaneous Breath sounds Clear Respiratory em6 pattern Regular Chest inspection Symmetrical Circulation: Heart rhythm Sinus abiodun Heart tones Present Pulses Palpable Color Ider Temperature Warm Disability: Pupils Pupils are equal, round, reactive to light and accomodation. Assessment: 18:46 General: Appears in no apparent distress. Behavior is cooperative. Pain: Complains of em6 pain in head Pain does not radiate. Pain currently is 0 out of 10 on a pain scale. Neuro: Level of Consciousness is awake, alert, obeys commands, Oriented to person, place, time, situation. Cardiovascular: Heart tones present Patient's skin is warm and dry. Respiratory: Airway is patent Respiratory effort is even, unlabored, Respiratory pattern is regular, symmetrical, Breath sounds are clear bilaterally. GI: No signs and/or symptoms were reported involving the gastrointestinal system. : No signs and/or symptoms were reported regarding the genitourinary system. EENT: No signs and/or symptoms were reported regarding the EENT system. Derm: No signs and/or symptoms reported regarding the dermatologic system. Musculoskeletal: Circulation, motion, and sensation intact. Range of motion: intact in all extremities. Injury Description: Laceration sustained to right arm is bleeding moderately, laceration to the right arm. moderate bleeding noted. 19:50 Reassessment: Patient appears in no apparent distress at this time. No changes from em6 previously documented assessment. Patient and/or family updated on plan of care and expected duration. Pain level reassessed. Patient is alert, oriented x 3, equal unlabored respirations, skin warm/dry/pink. 20:50 Reassessment: Patient appears in no apparent distress at this time. No changes from em6 previously documented assessment. Patient and/or family updated on plan of care and expected duration. Pain level reassessed. Patient is alert, oriented x 3, equal unlabored respirations, skin warm/dry/pink. provider at bedside. putting sutures in place. 21:17 Reassessment: dressing in place. provide education regarding wound care. dressing dry em6 and intact. Patient states "IM going to politely decline imaging of the head." notified provider. Vital Signs: 18:48 BP 140 / 111; Pulse 112; Resp 20; Temp 97.7; Pulse Ox 100% on R/A; Weight 64.41 kg; em6 Height 5 ft. 9 in. (175.26 cm); Pain 0/10; 19:25 BP 128 / 101; Pulse 52; Resp 16; Pulse Ox 100% ; em6 20:00 BP 144 / 61; Pulse 45; Resp 16; Pulse Ox 100% on R/A; em6 20:30 BP 139 / 71; Pulse 43; Resp 16; Pulse Ox 100% on R/A; em6 21:00 BP 141 / 65; Pulse 43; Resp 16; Pulse Ox 100% on R/A; em6 18:48 Body Mass Index 20.97 (64.41 kg, 175.26 cm) em6 20:00 provider notified of low heart rate em6 Geovanni Coma Score: 18:48 Eye Response: spontaneous(4). Verbal Response: oriented(5). Motor Response: obeys em6 commands(6). Total: 15. 19:25 Eye Response: spontaneous(4). Verbal Response: oriented(5). Motor Response: obeys em6 commands(6). Total: 15. 20:00 Eye Response: spontaneous(4). Verbal Response: oriented(5). Motor Response: obeys em6 commands(6). Total: 15. 20:30 Eye Response: spontaneous(4). Verbal Response: oriented(5). Motor Response: obeys em6 commands(6). Total: 15. 21:00 Eye Response: spontaneous(4). Verbal Response: oriented(5). Motor Response: obeys em6 commands(6). Total: 15. Trauma Score (Adult): 18:48 Eye Response: spontaneous(1); Verbal Response: oriented(1); Motor Response: obeys em6 commands(2); Systolic BP: > 89 mm Hg(4); Respiratory Rate: 10 to 29 per min(4); Geovanni Score: 15; Trauma Score: 12 ED Course: 18:44 Patient arrived in ED. em6 18:45 Renata Martinez, LEE ANN is Primary Nurse. em6 18:47 López Eddy PA is PHCP. cp 18:47 Silvio Levine DO is Attending Physician. cp 18:48 Patient maintains SpO2 saturation greater than 95% on room air. Thermoregulation: warm em6 blanket given to patient. 18:48 Maintain EMS IV. Dressing intact. Good blood return noted. Site clean \\T\\ dry. Gauge \\T\\ em 6 site: 20 G left forearm. 18:49 Triage completed. em6 18:49 Bed in low position. Call light in reach. Side rails up X2. Pulse ox on. NIBP on. Warm em6 blanket given. 18:49 Arm band placed on. em6 19:01 Anton Cha MD is Attending Physician. cp 19:06 XRAY Elbow RIGHT 3 view In Process Unspecified. EDMS 19:06 XRAY Humerus RIGHT In Process Unspecified. EDMS 21:49 No provider procedures requiring assistance completed. intact, bleeding controlled, No em6 redness/swelling at site. Pressure dressing applied. Administered Medications: 19:05 Drug: Tylenol 650 mg Route: PO; em6 19:41 Follow up: Response: No adverse reaction em6 20:00 Drug: Lidocaine-Epinephrine -1%: (1:100,000) 20 ml {Note: administered by bart bullock .} em6 Volume: 20 ml; Route: Infiltration; 20:02 Drug: Tylenol 650 mg Route: PO; em6 20:39 Follow up: Response: No adverse reaction em6 Medication: 21:51 VIS not applicable for this client. em6 Intake: 21:51 PO: 50ml; Total: 50ml. em6 Output: 21:51 Urine: 0ml; Total: 0ml. em6 Outcome: 20:57 Patient's length of stay in the Emergency Department was greater than 2 hours. em6 performing sutures by provider Patient's length of stay extended due to 21:34 Discharge ordered by MD. cp 21:50 Discharged to home via wheelchair, with family. em6 21:50 Condition: stable 21:50 Discharge instructions given to patient, family, Instructed on discharge instructions, follow up and referral plans. medication usage, wound care, Demonstrated understanding of instructions, follow-up care, medications, wound care, Prescriptions given X 1. 21:51 Patient left the ED. em6 Signatures: Dispatcher [employer] EDMS López Eddy PA PA cp Martinez, Erika RN RN em6 Corrections: (The following items were deleted from the chart) 20:12 20:00 BP 144 / 61; Pulse 45bpm; Resp 16bpm; Pulse Ox 100% RA; em6 em6 21:50 18:48 Patient maintains SpO2 saturation greater than 95% on room air. em6 em6
[2022-08-24 22:55] VITALS: TEMP 97.7; O2SAT 100
[2022-08-24 23:00] VITALS: BP 141/65
== END 2022-08-24 21:51 | disposition home or self-care (01) ==
LOC: ER 18:32
PROC: 0JQD0ZZ Repair Right Upper Arm Subcutaneous Tissue and Fascia, Open Approach (ICD-10-PCS; principal; 2022-08-24)
DX: S41.111A Laceration without foreign body of right upper arm, initial encounter (principal)
CPT/HCPCS: 99284

== ENCOUNTER 2022-09-26 19:11 | Inpatient (IN) | payer OTHER ==
--- OUTSIDE RECORDS SUMMARY | 2022-09-26 19:20 | XMS REPORT | Continuity of Care Document ---
:1935 Author Organization [facility] t Address [address] [place] [address] Care Team Providers Name Role Phone Asked, None Given Primary Care Physician Unavailable GUS BRITO Attending Clinician Unavailable Kamran NANCE, Emy Attending Clinician Unavailable Gus Brito MD Attending Clinician Yecenia PROSTHETIC MAKEUP DESIGNER, Warner Hobson Attending Clinician WARNER HEATON Attending Clinician Unavailable Sissy Plascencia MD Attending Clinician Raymond Jj DO Attending Clinician Tabitha Barron MD Attending Clinician Angel Ramirez MD Attending Clinician [phone] Juan Burnham MD Attending Clinician Moody Gore RN Attending Clinician Unavailable HAMZAH FORMAN Attending Clinician Unavailable Dickson PROSTHETIC MAKEUP DESIGNER, Hamzah Correia Attending Clinician [phone] Chace Nava Attending Clinician Unavailable MARCO IRENE [...] Date Expiration Date S ource UNITED MEDICARE [id number] 2021 [facility] 00:00:00 [facility] [id number] 2020 [facility] 00:00:00 PPO MEDICARE PART B - [id number] 2010 MEDICARE 00:00:00 GENERIC PPO - [id number] GENERIC PAYOR MEDICARE ADVANTAGE [id number] PPO - [facility] Problems Condition Condition Condition Status Onset Resolution [...] loss blood loss [facility] anemia anemia [facility] Thrombocyt Thrombocyt Disease Active C HI [facility] openia openia [facility] Hyperglyce Hyperglyce Disease Active C [facility] jonathon [facility] Allergies, Adverse Reactions, Alerts Allergy Allergy Status Severity Reaction(s) Onset Inactive Treating Comm ents Source Name Type Date Date Clinician CIPROFLO Allergy Active Low Rash [facility] XACIN 04-09 00:00: 00 LEVOFLOX Allergy Active Low Rash [facility] ACIN 04-09 00:00: 00 Ciproflo Propensi [facility] Rash [facility]: Medical reaction 00 Center s Levoflox Propensi Active Rash [facility] 04-09 [facility] adverse 00:00: Medical reaction 00 Center s ciproflo DA Active [place] [facility] x[facility] 04-01 Clear 00:00: [place] 00 [facility] CIPROFLO DRUG Active Rash 2019-10 [facility] XACIN INGREDI 10-19 ity of 00:00: [place] 00 [facility] Ciproflo Propensi Active Rash Method i [...] l s to drug levoflox DA Active [place] [facility] [place] 00[facility] levoflox DA Active [place] [facility] ac[facility] 03-07 Clear 00:00: [place] 00 [facility] Family History Family Member Diagnosis Comments Start Date Stop Date Source Natural sister Stroke [facility] Natural father Heart attack [facility] Natural mother Brain cancer [facility] Social History Social Habit Start Date Stop Date Quantity Comments Source Alcohol intake 2022-05-28 2022-05-28 [facility] (finding) Tobacco use and 2022-04-22 2022-04-[address] [facility] [address] [facility] k[facility] exposure 00:00:00 00:00:00 [facility] Center Sex [birth year] [facility] 00:00:00 00:00:00 Hospital Smoking Status Start Date Stop Date Source [facility] Medications Ordered Filled Start Stop Current Ordering Indication Dosage Frequency Signature Comments Components Source Medication Medication Date Date Medication? Clinician (SIG) Name Name cyclobenzap Yes 10mg Take [address] [facility] rine 8-10 by mouth 3 [facility] (FLEXERIL) 10:40: (three) Medi eddie 10 MG 29 times Center tablet daily as needed for Muscle spasms. cyclobenzap Yes 10mg Take 10 mg [facility] [...] ORAL 8-10 mouth [facility] 10:39: daily . [address] cholecalcif Yes 5000U QD Take 5,[address] berta, 8-10 Units by [facility] vitamin D3, 10:39: mouth Medic al 50 mcg 23 daily . [place] (2,000 unit) Cap omega-3 Yes 2g Q.5D [...] 10:39: mouth Medical magnesium 23 daily . [place] Tab ZINC Yes 50mg QD Take [address] GLUCONATE 8-10 by mouth [facility] ORAL 10:39: daily . [address] cetirizine Yes 10mg QD Take [address] (ZyrTEC) 10 8-10 by mouth Luke s MG tablet 10:39: daily. Medica l 23 [place] HYDROcodone Yes 1{tbl} Take [address] -acetaminop 8-10 tablet by Shelbie alberts (NORCO 10:39: mouth Medica l 7.5-325) 23 every 6 Center 7.5-325 mg (six) per tablet hours as needed for Pain. sotaloL Yes 120mg Q.5D Take 120 [facility] (BETAPACE) 8-10 mg by [facility]ukes 80 MG 10:39: mouth 2 Medical tablet 23 (two) Center times daily. apixaban 0 Yes 5mg Q.5D Take 5 mg CHI [...] MG 10:39: mouth Medical tablet 23 nightly. [place] montelukast Yes 10mg QD Take [address] (SINGULAIR) 8-10 by mouth Luke s 10 mg 10:39: nightly. Medical tablet 23 [place] VITAMINS A Yes QD Take by [facility] AND D ORAL 8-10 mouth [facility]ukes 10:39: daily . [address] cholecalcif Yes 5000U QD Take 5,[address] berta, 8-10 Units by [facility]ukes vitamin D3, 10:39: mouth Medic al 50 mcg 23 daily . [place] (2,000 unit) Cap omega-3 Yes 2g Q.5D [...] 10:39: mouth Medical magnesium 23 daily . [place] Tab ZINC Yes 50mg QD Take [address] GLUCONATE 8-10 by mouth [facility]ukes ORAL 10:39: daily . [address] cetirizine Yes 10mg QD Take [address] (ZyrTEC) 10 8-10 by mouth Luke s MG tablet 10:39: daily. Medica l 23 [place] HYDROcodone Yes 1{tbl} Take [address] -acetaminop 8-10 tablet by Shelbie es hen (NORCO 10:39: mouth Medica l 7.5-325) 23 every 6 Center 7.5-325 mg (six) per tablet hours as needed for Pain. sotaloL 2021-0 Yes 120mg Q.5D Take 120 [facility] (BETAPACE) 8-10 mg by [facility]ukes 80 MG 10:39: mouth 2 Medical tablet 23 (two) Center times daily. amLODIPine 2022-0 Yes 5mg QD Take 1 [facility] (NORVASC) 5 7-20 tablet (5 Shelbie es MG tablet 00:00: mg total) Med ical 00 by mouth Center daily. aspirin 81 2022-0 Yes 81mg QD Take 1 [facility] MG EC 7-20 tablet (81 [facility] tablet 00:00: mg total) Medica l 00 by mouth Center daily. famotidine 202-0 Yes 20mg QD Take 1 [facility] (PEPCID) 20 7-20 tablet (20 Rosey kes MG tablet 00:00: mg total) Med ical 00 by mouth Center daily. furosemide 2021-0 Yes 20mg QD Take 1 [facility] (LASIX) 20 7-20 tablet (20 Shelbie es MG tablet 00:00: mg total) Med ical 00 by mouth Center daily. amLODIPine 2-0 Yes 5mg QD Take 1 [facility] (NORVASC) 5 7-20 tablet (5 Shelbie es MG tablet 00:00: mg total) Med ical 00 by mouth Center daily. aspirin 81 2-0 Yes 81mg QD Take 1 [facility] MG EC 7-20 tablet (81 [facility] tablet 00:00: mg total) Medica l 00 by mouth Center daily. famotidine 2-0 Yes 20mg QD Take 1 [facility] (PEPCID) 20 7-20 tablet (20 Rosey kes MG tablet 00:00: mg total) Med ical 00 by mouth Center daily. furosemide 2022-0 Yes 20mg QD Take 1 [facility] (LASIX) 20 7-20 tablet (20 Shelbie es MG tablet 00:00: mg total) Med ical 00 by mouth Center daily. DILTIAZEM 2-0 2022- No 30mg Q.[id number] Take [address] HCL ORAL 7-19 07-19 [id number] by mouth 3 [facility] 10:39: 00:00 3D (three) Medical 12 :00 times Center daily . TURMERIC 2021- No 4000mg QD Take 4,[address] ORAL 7-19 07-19 mg by Lukes 10:39: 00:00 mouth Medical 12 :00 daily . Center DILTIAZEM 2021- No 30mg Q.[id number] Take [address] HCL ORAL 7-19 07-19 [id number] by mouth 3 [facility] 10:39: 00:00 3D (three) Medical 12 :00 times Center daily . TURMERIC 2021- No 4000mg QD Take 4,[address] ORAL 7-19 07-19 mg by Lukes 10:39: 00:00 mouth Medical 12 :00 daily . Center metoprolol Yes 50mg Q.[id number] Take [address] tartrate 7-19 [id number] tablet (50 [facility] (LOPRESSOR) 00:00: 3D mg total) M edical 50 MG 00 by mouth 3 Center tablet (three) times daily. metoprolol Yes 50mg Q.[id number] Take [address] tartrate 7-19 [id number] tablet (50 [facility] (LOPRESSOR) 00:00: 3D mg total) M edical 50 MG 00 by mouth 3 Center tablet (three) times daily. celecoxib 2020-0 Yes 200mg Q.5D Take 200 [...] daily. l vaginal cream vitamin A & 2020-0 Yes Apply Metho di D ointment 8-[address] 14:41: as needed Hospita 00 for dry l skin. multivitami 2020-0 Yes 1{tbl} QD Take 1 Me thodi n 8-[address] (THERAGRAN) 14:41: mouth Hospi ta tablet 00 daily. l metoprolol 2020-0 Yes 25mg Q.5D Take 25 mg M [...] daily. l vaginal cream vitamin A & 2020-0 Yes Apply Metho di D ointment 8-[address] 14:41: as needed Hospita 00 for dry l skin. omega-3 2020-0 Yes 1g Q.5D Take 1 g Method i acid ethyl 8-[address] esters 14:41: (two) Hospita (LOVAZA) 1 00 times a l gram day. capsule multivitami 2020-0 Yes 1{tbl} QD Take 1 Me thodi n 8-[address] (THERAGRAN) 14:41: mouth Hospi ta tablet 00 daily. l omega-3 2020-0 Yes 1g Q.5D Take 1 g Method i acid ethyl 8-[address] esters 14:41: (two) Hospita (LOVAZA) 1 00 times a l gram day. capsule calcium 2020-0 Yes 1{tbl} QD Take 1 Method i carbonate-v 8-[address] itamin D3 14:41: mouth Hospita 250-125 00 daily. l mg-unit tablet calcium 2020-0 Yes 1{tbl} QD Take 1 Method i carbonate-v 8-[address] itamin D3 14:41: mouth Hospita 250-125 00 daily. l mg-unit tablet metoprolol 2019-0 Yes 25mg Q.5D Take 25 mg M ethodi tartrate 8-[address] (LOPRESSOR) 14:41: (two) Hospi ta 25 MG 00 times a l tablet day. metoprolol Yes 25mg Q.5D Take 25 mg M ethodi tartrate 6-[address] (LOPRESSOR) 12:11: (two) Hospi ta 25 MG 15 times a l tablet day. escitalopra Yes 10mg QD Take 10 mg Methodi m (LEXAPRO) 6-[address] 10 MG 12:11: daily. Hospita tablet 15 l traZODone Yes 100mg QD Take 100 Met hodi (DESYREL) 6-[address] 100 MG 12:11: mouth Hospita tablet 15 nightly. l lidocaine Yes 1{patch Q24H Place 1 Me thodi (LIDODERM) 6-01 } patch on st 5 % 12:11: [...] felisha N) 50 MG 15 l capsule metoprolol Yes 25mg Q.5D Take 25 mg M ethodi tartrate 6-[address] (LOPRESSOR) 12:11: (two) Hospi ta 25 MG 15 times a l tablet day. escitalopra Yes 10mg QD Take 10 mg Methodi m (LEXAPRO) [address] 10 MG 12:11: daily. Hospita tablet 15 l traZODone Yes 100mg QD Take 100 Met hodi (DESYREL) [address] 100 MG 12:11: mouth Hospita tablet 15 nightly. l lidocaine Yes 1{patch Q24H Place 1 Me thodi (LIDODERM) 03-19 } patch on st 5 % 12:11: the skin Hospita 15 daily. l Remove & Discard patch within 12 hours or as directed by estradiol Yes 2g QD Insert 2 g Me thodi (ESTRACE) 03-[address] 0.01 % (0.1 12:11: vagina Hosp felisha mg/gram) 15 daily. l vaginal cream nitrofurant Yes 50mg QD Take 50 mg Methodi oin 6-[address] (MACRODANTI 12:11: daily. Hosp felisha N) 50 MG 15 l capsule celecoxib Yes Methodi (CeleBREX) 5-18 st 200 MG 00:00: Hospita capsule 00 l HYDROcodone Yes Method i -acetaminop 5-18 st hen (NORCO 00:00: Hospita 10-325) 00 l 10-325 mg per tablet celecoxib Yes Methodi (CeleBREX) 5-18 st 200 MG 00:00: Hospita capsule 00 l HYDROcodone Yes Method i -acetaminop 5-18 st hen (NORCO 00:00: Hospita 10-325) 00 l 10-325 mg per tablet Immunizations Ordered Immunization Filled Immunization Date Status Commen ts Source Name Name [facility]ix Hydra COVID-19 MRNA 2020-11-24 Completed Meth odist VACCINATION 00:00:00 [facility] Nix Hydra COVID-19 MRNA 2020-11-24 Completed Meth odist VACCINATION 00:00:00 [facility] Nix Hydra COVID-19 MRNA 2020-11-03 Completed Meth odist VACCINATION 00:00:00 [facility] Nix Hydra COVID-19 MRNA 2020-11-03 Completed Meth odist VACCINATION 00:00:00 Hospital Vital Signs Vital Name Observation Time [...] kg Systolic blood 2022-05-28 10:36:00 136 mm[Hg] MARCELLA Clarke [facility] Diastolic blood 2022-05-28 10:36:00 79 mm[Hg] MARCELLA S ethan [facility] Heart rate 2022-05-28 10:36:00 89 /min [facility] Body height 2022-05-28 10:36:00 175.3 cm [facility] Body weight 2022-05-28 10:36:00 66.679 kg [facility] BMI 2022-05-28 10:36:00 21.71 kg/m2 [facility] Oxygen saturation in 2022-05-28 10:36:00 98 /min [facility] Arterial blood by Medical Ce nter Pulse oximetry Body temperature 2022-05-06 08:00:00 36.39 Deanna [facility] Respiratory rate 2022-05-06 08:00:00 19 /min [facility] Procedures Procedure Date / Time Performing Clinician Source Performed POCT-GLUCOSE METER 2022-05-06 07:45:00 Gus Brito [facility] BASIC METABOLIC PANEL 2022-05-06 05:58:00 Lux Campbell [facility] MAGNESIUM 2022-05-06 05:58:00 Lux Campbell [facility] CBC (HEMOGRAM ONLY) 2022-05-06 05:58:00 Lux Campbell [facility] XR CHEST 1 VIEW PORTABLE / 2022-05-06 05:18:[address] [facility] POCT-GLUCOSE METER 2022-05-05 21:22:00 BritoGus [facility] POCT-GLUCOSE METER 2022-05-05 16:48:00 BritoGus [facility] POCT-GLUCOSE METER 2022-05-05 11:39:00 BritoGus bruce [facility] XR CHEST 1 VIEW PORTABLE / 2022-05-05 09:01:00 Tonia-Sonya Ro [facility] POCT-GLUCOSE METER 2022-05-05 07:16:00 Brito, Gus Mason [facility] BASIC METABOLIC PANEL 2022-05-05 03:55:00 Lux Campbell [facility] MAGNESIUM 2022-05-05 03:55:00 Hasan, Lux Ali [facility] CBC (HEMOGRAM ONLY) 2022-05-05 03:55:00 uLx Campbell Aaron [facility] POCT-GLUCOSE METER 2022-05-04 21:37:00 BritoGus [facility] POCT-GLUCOSE METER 2022-05-04 17:32:00 Brito, Gus Mason [facility] XR CHEST 1 VIEW PORTABLE / 2022-05-04 14:20:[address] Al[address] Gonsalves [facility] POCT-GLUCOSE METER 2022-05-04 12:15:00 Brito, Gus Mason [facility] POCT-GLUCOSE METER 2022-05-04 08:44:00 Brito, Gus Mason [facility] XR CHEST 1 VIEW PORTABLE / 2022-05-04 06:41:00 Tonia-Smart, Sonya [facility] BASIC METABOLIC PANEL 2022-05-04 03:42:00 Lux Campbell [facility] MAGNESIUM 2022-05-04 03:42:00 Adrian [facility] CBC (HEMOGRAM ONLY) 2022-05-04 03:42:00 Lux Campbell [facility] POCT-GLUCOSE METER 2022-05-03 21:24:00 BritoGus bruce [facility] POCT-GLUCOSE METER 2022-05-03 17:03:00 Brito, Gus Mason [facility] XR CHEST 1 VIEW PORTABLE / 2022-05-03 12:56:00 Tonia-Smart, Sonya h [facility] POCT-GLUCOSE METER 2022-05-03 11:29:00 BritoGus [facility] POCT-GLUCOSE METER 2022-05-03 07:19:00 Brito, Gus Mason [facility] BASIC METABOLIC PANEL 2022-05-03 05:18:00 Lux Campbell [facility] MAGNESIUM 2022-05-03 05:18:00 Adrian Lux [facility] CBC (HEMOGRAM ONLY) 2022-05-03 05:18:00 Lux Campbell [facility] POCT-GLUCOSE METER 2022-05-02 21:05:00 BritoGus bruce [facility] POCT-GLUCOSE METER 2022-05-02 16:39:00 BritoGus [facility] XR CHEST 1 VIEW PORTABLE / 2022-05-02 13:32:00 Tonia-Smart, Sonya h [facility] POCT-GLUCOSE METER 2022-05-02 12:17:00 BritoGus [facility] 2D ECHO W/ DOPPLER 2022-05-02 12:16:00 [facility] (CW/PW/COLOR) [facility] 2D ECHO W/ DOPPLER 2022-05-02 10:26:33 [facility] (CW/PW/COLOR) [facility] POCT-GLUCOSE METER 2022-05-02 07:14:00 BritoGus bruce [facility] XR CHEST 1 VIEW PORTABLE / 2022-05-02 06:43:00 Clyde Mix [facility] BASIC METABOLIC PANEL 2022-05-02 04:44:00 Lux Campbell [facility] MAGNESIUM 2022-05-02 04:44:00 Lux Campbell Aaron [facility] CBC (HEMOGRAM ONLY) 2022-05-02 04:44:00 Lux Campbell [facility] POCT-GLUCOSE METER 2022-05-01 21:14:00 BritoGus bruce [facility] POCT-GLUCOSE METER 2022-05-01 17:23:00 BritoGus [facility] POCT-GLUCOSE METER 2022-05-01 11:24:00 Gus Brito [facility] XR CHEST 1 VIEW PORTABLE / 2022-05-01 09:01:00 Maria Dolores Johnson [facility] POCT-GLUCOSE METER 2022-05-01 07:39:00 BritoGus [facility] XR CHEST 1 VIEW PORTABLE / 2022-05-01 06:46:[address] [facility] BASIC METABOLIC PANEL 2022-05-01 04:27:00 Lux Campbell [facility] MAGNESIUM 2022-05-01 04:27:00 Adrian Luxmary Hensley Aaron [facility] CBC (HEMOGRAM ONLY) 2022-05-01 04:27:00 Lux Campbell Aaron [facility] POCT-GLUCOSE METER 2022-04-30 21:16:00 Gus Brito [facility] POCT-GLUCOSE METER 2022-04-30 17:14:00 Gus Brito [facility] POCT-GLUCOSE METER 2022-04-30 11:56:00 Анна [facility] POCT-GLUCOSE METER 2022-04-30 07:25:00 Анна [facility] XR CHEST 1 VIEW PORTABLE / 2022-04-30 07:07:00 Clyde Mix [facility] POCT-GLUCOSE METER 2022-04-29 21:20:00 Анна [facility] POCT-GLUCOSE METER 2022-04-29 16:15:00 Анна [facility] POCT-GLUCOSE METER 2022-04-29 10:59:00 Анна [facility] XR CHEST 1 VIEW PORTABLE / 2022-04-29 10:50:[address] Heide Gaytan [facility] XR CHEST 1 VIEW PORTABLE / 2022-04-29 09:20:[address] [facility] POCT-GLUCOSE METER 2022-04-29 06:59:00 Анна [facility] CBC W/PLT COUNT & AUTO 2022-04-29 03:48:00 Corbin [facility] BASIC METABOLIC PANEL 2022-04-29 03:48:00 Odilia Alaniz [facility] MAGNESIUM 2022-04-29 03:48:00 Corbin [facility] PHOSPHORUS 2022-04-29 03:48:00 Corbin [facility] CALCIUM, IONIZED 2022-04-29 03:48:00 [facility] CBC W/PLT COUNT & AUTO 2022-04-29 03:48:00 Corbin [facility] (CELLAVISION MANUAL DIFF) 2022-04-29 03:48:00 Odilia Alaniz [facility] POCT-GLUCOSE METER 2022-04-29 01:31:00 Raymond Jj [facility] XR CHEST 1 VIEW PORTABLE / 2022-04-29 01:09:00 Corbin [facility] POCT-GLUCOSE METER 2022-04-28 [facility] 2022-04-28 11:48:00 [facility] XR CHEST 1 VIEW PORTABLE / 2022-04-28 11:10:[address] [facility] CBC W/PLT COUNT & AUTO 2022-04-28 03:28:00 Corbin [facility] BASIC METABOLIC PANEL 2022-04-28 03:28:00 Corbin [facility] MAGNESIUM 2022-04-28 03:28:00 Corbin [facility] PHOSPHORUS 2022-04-28 03:28:00 [facility] 2022-04-28 03:28:00 Corbin [facility] CBC W/PLT COUNT & AUTO 2022-04-28 03:28:00 Corbin [facility] (CELLAVISION MANUAL DIFF) 2022-04-28 03:28:00 Odilia Alaniz [facility] XR CHEST 1 VIEW PORTABLE / 2022-04-28 01:00:[address] [facility] POCT-GLUCOSE METER 2022-04-28 00:07:00 [facility] PREPARE RBC 2022-04-27 23:54:00 Gus Brito [facility] POCT-GLUCOSE METER 2022-04-27 17:57:00 [facility] POCT-GLUCOSE METER 2022-04-27 11:02:00 [facility] XR CHEST 1 VIEW PORTABLE / 2022-04-27 07:52:00 Corbin [facility] POCT-GLUCOSE METER 2022-04-27 07:37:00 [facility] BLOOD GAS, ARTERIAL 2022-04-27 05:42:00 Odilia Alaniz [facility] OXYGEN SATURATION, 2022-04-27 05:42:00 Odilia Alaniz [facility] CBC W/PLT COUNT & AUTO 2022-04-27 05:41:00 Corbin [facility] BASIC METABOLIC PANEL 2022-04-27 05:41:00 Corbin [facility] MAGNESIUM 2022-04-27 05:41:00 Corbin [facility] PHOSPHORUS 2022-04-27 05:41:00 Corbin [facility] CALCIUM, IONIZED 2022-04-27 05:41:00 Corbin [facility] CBC W/PLT COUNT & AUTO 2022-04-27 05:41:00 [facility] (CELLAVISION MANUAL DIFF) 2022-04-27 05:41:00 Odilia Alaniz [facility] den[facility] POCT-GLUCOSE METER 2022-04-27 00:23:00 [facility] PREPARE LEUKO-REDUCED RBC 2022-04-26 23:54:00 Jayce Mauricio [facility] XR CHEST 1 VIEW PORTABLE / 2022-04-26 20:34:[address] [facility] HEMOGLOBIN AND HEMATOCRIT 2022-04-26 20:28:00 Odilia Alaniz [facility] POCT-GLUCOSE METER 2022-04-26 17:25:00 Sissy Plascencia [facility] PREPARE PLASMA 2022-04-26 11:43:00 Gus Brito [facility] XR CHEST 1 VIEW PORTABLE / 2022-04-26 11:41:[address] [facility] OXYGEN SATURATION, 2022-04-26 11:24:00 Corbin [facility] BLOOD GAS, ARTERIAL 2022-04-26 11:06:00 Corbin [facility] CBC (HEMOGRAM ONLY) 2022-04-26 10:52:00 Corbin [facility] BASIC METABOLIC PANEL 2022-04-26 10:52:00 Corbin [facility] MAGNESIUM 2022-04-26 10:52:00 Corbin [facility] PHOSPHORUS 2022-04-26 10:52:00 [facility] CALCIUM, IONIZED 2022-04-26 10:52:00 Family Preservation Worker, [facility] LACTIC ACID, ARTERIAL 2022-04-26 10:52:00 Corbin [facility] PT/APTT 2022-04-26 10:52:00 Corbin [facility] FIBRINOGEN 2022-04-26 10:52:00 Cor[facility] TRANSFUSE LEUKO-REDUCED 2022-04-26 09:34:00 Jayce Mauricio [facility] RED BLOOD CELLS [facility] RRL CRITICAL LABS 2022-04-26 09:12:15 Tabitha Barron [facility] (ABG,NA,K,H&H,GLUCOSE) Medical C enter CALCIUM, IONIZED 2022-04-26 09:12:15 Tabitha Barron [facility] BLOOD GAS, ARTERIAL 2022-04-26 09:12:15 Tabitha Barron [facility] SODIUM NA-STAT LAB 2022-04-26 09:12:15 Tabitha Barron [facility] POTASSIUM-STAT LAB 2022-04-26 09:12:15 Tabitha Barron [facility] GLUCOSE-STAT LAB 2022-04-26 09:12:15 Tabitha Barron [facility] HGB/HCT (H&H) - STAT LAB 2022-04-26 09:12:15 Tabitha Barron [facility] THORACOTOMY 2022-04-26 08:27:00 Gus Brito [facility] POCT-GLUCOSE METER 2022-04-26 05:49:00 Sissy Plascencia [facility] BASIC METABOLIC PANEL 2022-04-26 02:04:00 Arnulfo Duarte [facility] MAGNESIUM 2022-04-26 02:04:00 Gerald, [facility] PHOSPHORUS 2022-04-26 02:04:00 Gerald [facility] CBC (HEMOGRAM ONLY) 2022-04-26 02:04:00 [facility] CALCIUM, IONIZED 2022-04-26 02:04:00 Clyde Mix [facility] XR CHEST 1 VIEW PORTABLE / 2022-04-26 01:47:[address] [facility] PREPARE RBC 2022-04-25 23:54:00 Gus Brito [facility] PREPARE PLATELETS 2022-04-25 23:54:00 Gus Brito [facility] PREPARE CRYOPRECIPITATE 2022-04-25 23:54:00 Gus Brito [facility] POCT-GLUCOSE METER 2022-04-25 23:50:00 [facility] METABOLIC PANEL 2022-04-25 18:27:00 [facility] LACTIC ACID, ARTERIAL 2022-04-25 18:27:00 [facility] OXYGEN SATURATION, 2022-04-25 18:27:00 [facility] HEMOGLOBIN AND HEMATOCRIT 2022-04-25 18:27:00 [facility] POCT-GLUCOSE METER 2022-04-25 16:29:00 Temo [facility] POCT-GLUCOSE METER 2022-04-25 13:09:00 Temo [facility] CBC (HEMOGRAM ONLY) 2022-04-25 13:07:00 Odilia Alaniz [facility] PT/APTT 2022-04-25 13:07:00 [facility] FIBRIN[facility]EN 2022-04-25 13:07:00 Odilia Alaniz [facility] CT CHEST WITHOUT IV 2022-04-25 10:14:00 Odilia Alaniz [facility] CBC (HEMOGRAM ONLY) 2022-04-25 09:33:00 Odilia [facility] POCT-GLUCOSE METER 2022-04-25 08:07:00 Temo [facility] HEMATOCRIT-STAT LAB 2022-04-25 06:42:00 Arnulfo Duarte [facility] POCT-GLUCOSE METER 2022-04-25 05:58:00 Temo [facility] XR CHEST 1 VIEW PORTABLE / 2022-04-25 05:37:00 Jayce Maur[address] The obdulio [facility] ME INSERT 2022-04-25 05:10:52 SloaneRupesh Polycarp [facility] CATH,ART,PERCUT,SHORTTERM [facility] LACTIC ACID, VENOUS 2022-04-25 04:24:00 Jayce Mauricio [facility] BLOOD GAS, VENOUS 2022-04-25 04:24:00 Jayce Mauricio [facility] PROTHROMBIN TIME/INR 2022-04-25 03:48:00 Jayce Mauricio Asha Osmar [facility] APTT 2022-04-25 03:48:00 Jayce Mauricio [facility] FIBRINOGEN 2022-04-25 03:48:00 Luly [facility] BASIC METABOLIC PANEL 2022-04-25 03:06:00 Gerald Arnulfo Woodardella C [facility] MAGNESIUM 2022-04-25 03:06:00 Gerald [facility] PHOSPHORUS 2022-04-25 03:06:00 Gerald [facility] CBC (HEMOGRAM ONLY) 2022-04-25 03:06:00 Gerald [facility] CALCIUM, IONIZED 2022-04-25 03:06:00 Clyde Mix [facility] HEPATIC FUNCTION PANEL 2022-04-25 03:06:00 Aria Mauriciodarrius [facility] POCT-GLUCOSE METER 2022-04-25 02:11:00 Temo [facility] XR CHEST 1 VIEW PORTABLE / 2022-04-25 01:42:[address] [facility] POCT-GLUCOSE METER 2022-04-24 23:52:00 Temo [facility] ECG 12-LEAD 2022-04-24 21:44:11 Unknown, Hl7 [facility] ECG 12-LEAD 2022-04-24 21:44:11 Unknown, Hl7 [facility] ECG 12-LEAD 2022-04-24 21:44:11 Unknown, Hl7 [facility] RRL CRITICAL LABS 2022-04-24 21:16:00 Odilia Alanizwvjayla [facility] (ABG,NA,K,H&H,GLUCOSE) Medical C enter BLOOD GAS, ARTERIAL 2022-04-24 21:16:00 Le, [facility] SODIUM NA-STAT LAB 2022-04-24 21:16:00 Le, [facility] POTASSIUM-STAT LAB 2022-04-24 21:16:00 Le, [facility] GLUCOSE-STAT LAB 2022-04-24 21:16:00 Le, [facility] HGB/HCT (H&H) - STAT LAB 2022-04-24 21:16:00 Le, [facility] CALCIUM, IONIZED 2022-04-24 19:59:00 [place], [facility] LACTIC ACID, ARTERIAL 2022-04-24 19:59:00 [place], [facility] RRL CRITICAL LABS 2022-04-24 19:59:00 Odilia Alaniz [facility] (ABG,NA,K,H&H,GLUCOSE) Medical C enter BLOOD GAS, ARTERIAL 2022-04-24 19:59:00 Le, [facility] SODIUM NA-STAT LAB 2022-04-24 19:59:00 Le, [facility] POTASSIUM-STAT LAB 2022-04-24 19:59:00 Le, [facility] GLUCOSE-STAT LAB 2022-04-24 19:59:00 Le, [facility] HGB/HCT (H&H) - STAT LAB 2022-04-24 19:59:00 Le, [facility] BASIC METABOLIC PANEL 2022-04-24 19:52:00 [place], [facility] MAGNESIUM 2022-04-24 19:52:00 [place], [facility] CBC W/PLT COUNT & AUTO 2022-04-24 18:05:00 Arnulfo Duarte [facility] RRL CRITICAL LABS 2022-04-24 18:05:00 [place], [facility] (ABG,NA,K,H&H,GLUCOSE) Medical C enter BLOOD GAS, ARTERIAL 2022-04-24 18:05:00 , [facility] NA-STAT [facility] 2022-04-24 18:05:00 , [facility] POTASSIUM-STAT LAB 2022-04-24 18:05:00 [facility], [facility] GLUCOSE-STAT LAB 2022-04-24 18:05:00 [facility], [facility] HGB/HCT (H&H) - STAT LAB 2022-04-24 18:05:00 [facility], [facility] CBC W/PLT COUNT & AUTO 2022-04-24 18:05:00 [facility] (CELLAVISION MANUAL DIFF) 2022-04-24 18:05:00 Gerald [facility] horner [facility] XR CHEST 1 VIEW PORTABLE / 2022-04-24 15:54:00 [facility] PROTHROMBIN TIME/INR 2022-04-24 15:47:00 [facility], [facility] APTT 2022-04-24 15:47:00 [facility], [facility] FIBRINOGEN 2022-04-24 15:47:00 [facility], [facility] OXYGEN SATURATION, 2022-04-24 15:47:00 [facility], [facility] LACTIC ACID, ARTERIAL 2022-04-24 15:47:00 [facility], [facility] CALCIUM, IONIZED 2022-04-24 15:46:00 [facility], [facility] CBC (HEMOGRAM ONLY) 2022-04-24 15:46:00 [facility], [facility] BASIC METABOLIC PANEL 2022-04-24 15:46:00 Arnulfo Duarte [facility] BLOOD GAS, ARTERIAL 2022-04-24 15:46:00 Gerald, [facility] MAGNESIUM 2022-04-24 15:46:00 Gerald [facility] PHOSPHORUS 2022-04-24 15:46:00 Gerald [facility] ANESTHESIA PERIPHERAL 2022-04-24 14:49:[address] [facility] TRANSFUSE CRYOPRECIPITATE 2022-04-24 13:50:00 James [facility] RRL CRITICAL LABS 2022-04-24 13:47:20 James [facility] (ABG,NA,K,H&H,GLUCOSE) [facility] enter CALCIUM, IONIZED 2022-04-24 13:47:20 James [facility] PROTHROMBIN TIME/INR 2022-04-24 13:47:20 James [facility] APTT 2022-04-24 13:47:[address] [facility] FIBRINOGEN 2022-04-24 13:47:[address] [facility] PLATELET COUNT 2022-04-24 13:47:20 [facility] BLOOD GAS, ARTERIAL 2022-04-24 13:47:20 James [facility] SODIUM NA-STAT LAB 2022-04-24 13:47:20 James [facility] POTASSIUM-STAT LAB 2022-04-24 13:47:20 James [facility] GLUCOSE-STAT LAB 2022-04-24 13:47:20 James [facility] HGB/HCT (H&H) - STAT LAB 2022-04-24 13:47:[address] [facility] POCT-ACT 2022-04-24 13:35:00 Sissy Plascencia [facility] PROTHROMBIN TIME/INR 2022-04-24 13:31:25 James [facility] FIBRINOGEN 2022-04-24 13:31:25 [facility] POCT-ACT 2022-04-24 13:03:00 Sissy Plascencia [facility] RRL CRITICAL LABS 2022-04-24 13:02:09 James [facility] (ABG,NA,K,H&H,GLUCOSE) [facility] C enter CALCIUM, IONIZED 2022-04-24 13:02:09 [facility]/INR 2022-04-24 13:02:09 [facility] 2022-04-24 13:02:09 [facility] FIBRINOGEN 2022-04-24 13:02:09 [facility] BLOOD GAS, ARTERIAL 2022-04-24 13:02:09 Glenn [facility] SODIUM NA-STAT LAB 2022-04-24 13:02:09 [facility] POTASSIUM-STAT LAB 2022-04-24 13:02:09 [facility] 2022-04-24 13:02:09 [facility] ([facility]&H) - STAT LAB 2022-04-24 13:02:[address] [facility] TRANSFUSE LEUKO-REDUCED 2022-04-24 12:50:00 Angel Ramirez CH I [facility] POCT-ACT 2022-04-24 12:02:00 Sissy Plascencia [facility] RRL CRITICAL LABS 2022-04-24 11:59:47 Odilia Alaniz [facility] (ABG,NA,K,H&H,GLUCOSE) Medical C enter BLOOD GAS, ARTERIAL 2022-04-24 11:59:47 Le, [facility] SODIUM NA-STAT LAB 2022-04-24 11:59:47 Essie [facility] POTASSIUM-STAT LAB 2022-04-24 11:59:47 Essie [facility] GLUCOSE-STAT LAB 2022-04-24 11:59:47 [facility] - [facility] LAB 2022-04-24 11:59:47 Essie [facility] POCT-ACT 2022-04-24 11:32:00 Luis Plascenciaka [facility] RRL CRITICAL LABS 2022-04-24 11:29:33 Odilia Alaniz [facility] (ABG,NA,K,H&H,GLUCOSE) Medical C enter BLOOD GAS, ARTERIAL 2022-04-24 11:29:33 Essie [facility] SODIUM NA-STAT LAB 2022-04-24 11:29:33 Essie [facility] POTASSIUM-STAT LAB 2022-04-24 11:29:33 Essie [facility] GLUCOSE-STAT LAB 2022-04-24 11:29:33 Essie [facility] HGB/HCT (H&H) - STAT LAB 2022-04-24 11:29:33 Essie [facility] MISCELLANEOUS LAB ORDER 2022-04-24 11:23:11 Angel Ramirez [facility] PLATELET COUNT 2022-04-24 11:23:[address] [facility] RRL CRITICAL LABS 2022-04-24 11:00:10 [facility] ([facility]G,NA,K,H&H,GLUCOSE) Medical C enter BLOOD GAS, ARTERIAL 2022-04-24 11:00:10 Essie [facility] SODIUM NA-STAT LAB 2022-04-24 11:00:10 Essie [facility] POTASSIUM-STAT LAB 2022-04-24 11:00:10 Essie [facility] GLUCOSE-STAT LAB 2022-04-24 11:00:10 Essie [facility] HGB/HCT (H&H) - STAT LAB 2022-04-24 11:00:10 Essie [facility] TRANSFUSE LEUKO-REDUCED 2022-04-24 11:00:00 Angel Ramirez [facility] RED BLOOD CELLS [facility] POCT-ACT 2022-04-24 10:52:00 Temo [facility] RRL CRITICAL LABS 2022-04-24 10:50:28 [facility] (ABG,NA,K,H&H,GLUCOSE) Medical C enter BLOOD GAS, ARTERIAL 2022-04-24 10:50:28 Essie, [facility] SODIUM NA-STAT LAB 2022-04-24 10:50:28 [facility] 2022-04-24 10:50:28 Essie, [facility] GLUCOSE-STAT LAB 2022-04-24 10:50:28 Essie [facility] HGB/HCT (H&H) - STAT LAB 2022-04-24 10:50:28 [facility] ANESTHESIA LARS 2022-04-24 10:43:26 Radha Becerril [facility] POCT-ACT 2022-04-24 10:23:00 Temo [facility] RRL CRITICAL LABS 2022-04-24 10:22:17 Odilia Alaniz [facility] (ABG,NA,K,H&H,GLUCOSE) Medical C enter BLOOD GAS, ARTERIAL 2022-04-24 10:22:17 Le, [facility] SODIUM NA-STAT LAB 2022-04-24 10:22:17 [facility] POT[facility] LAB 2022-04-24 10:22:17 Essie, [facility] GLUCOSE-STAT LAB 2022-04-24 10:22:17 Essie [facility] HGB/HCT (H&H) - STAT LAB 2022-04-24 10:22:17 Essie [facility] POCT-ACT 2022-04-24 09:25:00 Sissy Plascencia [facility] TRANSFUSE LEUKO-REDUCED 2022-04-24 08:34:00 Jayce Mauricio [facility] RED BLOOD CELLS [facility] RRL CRITICAL LABS 2022-04-24 08:01:56 James [facility] (ABG,NA,K,H&H,GLUCOSE) [facility] enter CALCIUM, IONIZED 2022-04-24 08:01:56 Glenn [facility] BLOOD GAS, ARTERIAL 2022-04-24 08:01:56 James [facility] SODIUM NA-STAT LAB 2022-04-24 08:01:56 James [facility] POTASSIUM-STAT LAB 2022-04-24 08:01:56 [facility] 2022-04-24 08:01:56 James [facility] HGB/HCT (H&H) - STAT LAB 2022-04-24 08:01:[address] [facility] REPAIR, MITRAL VALVE 2022-04-24 07:14:00 Brito, Gus Mason [facility] REPAIR, TRICUSPID VALVE 2022-04-24 07:14:00 Brito, Gus Mason [facility] ABLATION,RADIOFREQUENCY 2022-04-24 07:14:00 Brito, Gus Mason [facility] CARDIAC-THORASCOPIC/ Medical Kia ter LAPAROSCOPIC APPROACH THORACOTOMY 2022-04-24 07:14:00 Brito, Gus Mason [facility] MAZE PROCEDURE, USING 2022-04-24 07:14:00 Brito, Gus Mason [facility] RADIOFREQUENCY ABLATION [facility] ECHOCARDIOGRAM, 3D, 2022-04-24 07:14:00 Brito, Gus Mason [facility] SARS-COV2/RT-PCR ([facility] & 2022-04-24 00:14:00 Clyde Mixh [facility] REF LABS) [facility] ECG 12-LEAD 2022-04-23 20:45:18 Unknown, Hl7 [facility] ECG 12-LEAD 2022-04-23 20:45:18 Anay Lemus [facility] ECG 12-LEAD 2022-04-23 20:45:18 Unknown, Hl7 [facility] ECG 12-LEAD 2022-04-23 20:44:44 Unknown, 7 [facility] ECG 12-LEAD 2022-04-23 20:44:44 Unknown, Hl7 [facility] ABORH, MANUAL 2022-04-23 18:26:00 Sonia Still [facility] PROTHROMBIN TIME/INR 2022-04-23 18:25:00 Anay Lemus [facility] APTT 2022-04-23 18:25:00 Anay Lemus [facility] CBC W/PLT COUNT & AUTO 2022-04-23 18:25:00 Anay Lemus [facility] DIFFERENTIAL [facility] CBC W/PLT COUNT & AUTO 2022-04-23 18:25:00 Anay Lemus [facility] DIFFERENTIAL [facility] R & L CATH / CORONARY 2022-04-23 09:59:00 Sissy Plascencia [facility] ANGIOS (+/- LV) [facility] ECG 12-LEAD 2022-04-23 07:57:40 Sissy Plascencia [facility] CARDIAC CATH REPORT - SCAN 2022-04-23 00:00:00 Oscar Riddle [facility] PROTHROMBIN TIME/INR 2022-04-22 11:13:00 Hamzah Forman [facility] COMPREHENSIVE METABOLIC 2022-04-22 11:13:00 Hamzah Forman [facility] PANEL [facility] CBC W/PLT COUNT & AUTO 2022-04-22 11:13:00 [facility] B-TYPE NATRIURETIC FACTOR 2022-04-22 11:13:[address] [facility] (BNP) [facility] TYPE AND SCREEN, AUTOMATED 2022-04-22 11:13:00 Hamzah Forman [facility] CBC W/PLT COUNT & AUTO 2022-04-22 11:13:00 [facility] SARS-COV2/RT-PCR ([facility] & 2022-04-22 10:53:[address] [facility] REF LABS) [facility] CTA ABDOMEN & PELVIS 2022-04-16 09:00:00 Hamzah Forman [facility] CTA CHEST 2022-04-16 09:00:00 Hamzah Forman [facility] POCT-CREATININE 2022-04-16 08:45:00 Tatianamtjordon Hamzah [facility] CK 2013-06-29 10:52:00 [facility] Plan of Care Planned Activity Planned Date Details Comments Source Future Scheduled 2023-05-28 Tobacco Cessation [facility] Test 00:00:00 [facility] r Screening (12+) [code = Tobacco Cessation Counseling and Screening (12+)] Future Scheduled 2022-08-22 HEPATITIS B VACCINES Met [facility] Test 20:41:35 (1 of 3 - 3-dose series) [code = HEPATITIS B VACCINES (1 of 3 - 3-dose series)] Future Scheduled 2022-08-22 SHINGLES VACCINES (1 Met [facility] Test 20:41:35 of 2) [code = SHINGLES VACCINES (1 of 2)] Future Scheduled 2022-08-22 65+ P[facility]UMOCOCCAL [facility] Test 20:41:35 VACCINE (1 - PCV) [code = 65+ PNEUMOCOCCAL VACCINE (1 - PCV)] Future Scheduled 2022-08-22 COVID-19 VACCINE (3 - [facility] Hospital Test 20:41:35 Booster for Pfizer series) [code = COVID-19 VACCINE (3 - Booster for Pfizer series)] Future Scheduled 2022-08-22 INFLUENZA VACCINE Method is Hospital Test 20:41:35 [code = INFLUENZA VACCINE] Future Scheduled 2022-08-22 HEPATITIS B VACCINES [facility] Test 20:41:35 (1 of 3 - 3-dose series) [code = HEPATITIS B VACCINES (1 of 3 - 3-dose series)] Future Scheduled 2022-08-22 SHINGLES VACCINES (1 [facility] Test 20:41:35 of 2) [code = SHINGLES VACCINES (1 of 2)] Future Scheduled 2022-08-22 65+ PNEUMOCOCCAL [facility] Test 20:41:35 VACCINE (1 - PCV) [code = 65+ PNEUMOCOCCAL VACCINE (1 - PCV)] Future Scheduled 2022-08-22 COVID-19 VACCINE (3 - [facility] Hospital Test 20:41:35 Booster for Pfizer series) [code = COVID-19 VACCINE (3 - Booster for Pfizer series)] Future Scheduled 2022-08-22 INFLUENZA VACCINE Method [facility] Hospital Test 20:41:35 [code = INFLUENZA VACCINE] Future Scheduled 2022-06-19 INFLUENZA VACCINE (#1[facility]00 [code = INFLUENZA Medical Ce nter VACCINE (#1)] Future Scheduled 2022-06-19 INFLUENZA VACCINE (#1) [facility] 00:00:00 [code = INFLUENZA Medical Ce [...] Medicare IPPE (WELCOME TO MEDICARE)] Future Scheduled 2021-10-[address] [...] - Booster for Pfizer series)] Future Scheduled 2021-04-23 COVID-19 VACCINE (3 - [facility] Test 00:00:00 Booster for Pfizer Medical C enter series) [code = COVID-19 VACCINE (3 - Booster for Pfizer series)] Future Scheduled 2001 PNEUMOCOCCAL 65+ YRS [facility] Test 00:00:00 (1 - PCV) [code = Medical Ce nter PNEUMOCOCCAL 65+ YRS (1 - PCV)] Future Scheduled 2001 PNEUMOCOCCAL 65+ YRS [facility] Test 00:00:00 (1 - PCV) [code = Medical Ce nter PNEUMOCOCCAL 65+ YRS (1 - PCV)] Future Scheduled 1986 SHINGLES VACCINES ([address] [facility] Test 00:00:00 of 2) [code = SHINGLES Medic al Center VACCINES (1 of 2)] Future Scheduled 1986 SHINGLES VACCINES ([address] [facility] Test 00:00:00 of 2) [code = SHINGLES Medic al Center VACCINES (1 of 2)] Future Scheduled 1955 DTAP/TDAP/TD VACCINES [facility] 00:00:00 (1 - Tdap) [code = Medical C enter DTAP/TDAP/TD VACCINES (1 - Tdap)] Future Scheduled 1955 DTAP/TDAP/TD VACCINES [facility] 00:00:00 (1 - Tdap) [code = Medical C enter DTAP/TDAP/TD VACCINES (1 - Tdap)] Encounters Start End Encounter Admission Attending Care Care Encounter Source Date/Time Date/Time Type Type Clinicians Facility Department ID 2022-04-10 Inpatient GUS BRITO [facility] Surgery [id number] [facility] 09:11:07 2022-06-09 2022-06-09 Telephone VINCE Andrew [id number] [facility] 00[facility]00[facility]00 [facility] 2022-06-09 2022-06-09 Telephone Kamran [facility] [id number] 00:00[facility]00 00:00:00 [facility] 2022-05-28 2022-05-28 Office BritoGus bruce [facility] [id number] 10:00:00 10:15:00 Visit [facility] 2022-05-28 2022-05-28 Office BritoGus bruce [facility] [id number] 10:00:00 10:15:00 Visit [facility] 2022-05-28 2022-05-28 Outpatient EL WARNER [facility] [id number] [facility] 09:34:35 09:34:35 2022-05-28 2022-05-28 Outpatient [facility] [id number] [facility] SLE 00:00:00 00:00:00 2022-05-19 2022-05-19 Orders Yecenia Warner [facility] [id number] 00:[facility] 00:00:00 Only [facility] 2022-05-19 2022-05-19 Orders Yecenia Warner [facility] [id number] 00:00[facility]00 00:00:00 Only [facility] 2022-04-23 2022-05-06 [id number] 06[facility]00 11:59:00 Encounter Raymond Jj Marc R [facility] 2022-04-23 2022-05-06 Inpatient GUS FONSECA [facility] [id number] SLE 06:47:00 11:59:00 2022-04-23 2022-05-06 [facility] [id number] [facility] 06:47:00 11:59:00 Encounter Raymond Jj Marc R [facility] 2022-04-26 2022-04-26 Surgery Gus Brito [facility] [id number] 08:00:00 11:51:00 [facility] 2022-04-26 2022-04-26 Surgery Gus Brito [facility] [id number] 08:00:00 11:51:00 [facility] 2022-04-26 2022-04-26 Anesthesia Anderson [facility] [id number] 08:35:00 10:44:00 Event [facility] 2022-04-26 2022-04-26 Anesthesia Anderson [facility] [id number] 08:35:00 10:44:00 Event [facility] 2022-04-24 2022-04-24 Outpatient [facility] [id number] [facility] 00:00:00 23:59:00 Bulmaro 2022-04-24 2022-04-24 Anesthesia JamesAngel kwok [facility] [id number] [facility] 07:35[facility]00 15:21:00 [facility] 2022-04-24 Anesthesia Angel Ramirez [facility] [id number] [facility] 07:35:00 15:21:00 Event Tej [facility] 2022-04-24 2022-04-24 Surgery Gus Brito [facility] [id number] 07:30:00 14:19:00 [facility] 2022-04-24 2022-04-24 Surgery Gus Brito [facility] [id number] 07:30:00 14:19:00 [facility] 2022-04-23 2022-04-23 Surgery Temo [facility] [id number] 11:20:00 13:33:00 [facility] 2022-04-23 2022-04-23 [id number] 11:20:00 13:33:00 [facility] 2022-04-23 2022-04-23 Outpatient [facility] BC [id number] [facility] 06:47:00 06:47:00 [facility]22-[facility]-23 2022-04-23 Outpatient BCM BC [id number] [facility] 06:47:00 06:47:00 [facility] 2022-04-22 2022-04-22 Outpatient EL SLE [facility] [id number] [facility] 14:56:24 23:59:00 2022-04-22 2022-04-22 [facility] [id number] 14:30:00 23:59:00 Encounter [facility] 2022-04-22 2022-04-22 [facility] [id number] 14:30:00 23:59:00 Encounter [facility] 2022-04-22 2022-04-22 Outpatient EL SLE [facility] [id number] [facility] 10:32:04 10:32:04 2022-04-22 2022-04-22 Office EL Sissy Plascencia [facility] [id number] 10:00:00 10:15:00 Visit [facility] 2022-04-22 2022-04-22 Office Sissy Plascencia [facility] [id number] 10:00:00 10:15:00 Visit [facility] 2022-04-16 2022-04-16 [facility] [id number] [facility] 07:50:52 23:59:00 HAMZAH 2022-04-16 2022-04-16 [facility] [id number] 07:50:52 23:59:00 [facility]22-04-16 2022-04-16 [facility] [id number] 07:50:52 23:59:00 Encounter Hamzah Correia [facility] 2022-04-16 2022-04-16 Out[facility] [id number] [facility] 07:49:57 07:49:57 HAMZAH 2022-04-16 2022-04-16 [facility] Dickson, [facility] [id number] 07:49:57 07:49:57 Encounter Hamzah Correia [facility] 2022-04-16 2022-04-16 [facility] [id number] [facility] 07:49:57 07:49:57 Encounter Hamzah Correia [facility] 2022-04-10 2022-04-10 Orders Dickson [facility] [id number] [facility] 00:00:00 00:00:00 Only Hamzah Correia [facility] 2022-04-10 2022-04-10 Orders Dickson [facility] [id number] [facility] 00:00:00 00:00:00 Only Hamzah Correia [facility] 2022-04-09 2022-04-09 Office Gus Brito [facility] [id number] [facility] 10:30:00 11:00:00 [facility] 2022-04-09 2022-04-09 Office Gus Brito [facility] [id number] 10:30:00 11:00:00 Visit Hamzah Forman [facility] 2022-04-09 2022-04-09 Outpatient MIMI MCCORMACKGUSTAVODELROY [facility] [id number] [facility] 10:17:18 10:17:18 HAMZAH 2022-04-02 2022-04-02 Outpatient MIMI CHRISTOS Nava OUTD [id number] [facility] 05:16:00 05:16:[address] [place] [address] 2022-04-02 2022-04-02 Outpatient MIMI Nava HCADOMINIC HCACL [id number] [facility] 05:16:00 05:16:00 Chace [id number] [facility] 2021-02-08 2021-02-08 Outpatient Marlon MARCO IRENE [facility] [id number] [facility] 15:00:00 15:00:00 MARCO IRENE mark [facility] 2020-12-20 2020-12-20 Outpatient MARCO CISNEROS [facility] [id number] [facility] 00:00:00 00:00:00 MARCO IRENE [facility] 2020-11-24 2020-11-24 Outpatient [facility] [id number] [address] [place] [address] 00:00:00 00:00:00 073 Method i 2020-11-13 2020-11-13 Telephone Maria Victoria [facility] [id number] 00:00:00 00:00:00 Marco Gao [id number] [place] 4.2.7.2.686 Professio [phone] nal 2 [facility] 2020-11-03 2020-11-03 Outpatient [facility] [id number] [address] [place] [address] 00:00:00 00:00:00 336 Method i 2020-11-02 2020-11-02 Office Maria Victoria [facility] [id number] 14:12:48 16:16:50 Visit Marco Gao 350.1.13.10 [place] 4.2.7.2.686 Professio [id number] nal 092 [facility] 2020-11-02 2020-11-02 Outpatient R [facility] [id number] Univers 14:20:00 14:20:00 russ [facility] 2020-10-24 2020-10-24 Outpatient Marlon JOSHI [facility] [id number] Univers 11:00:00 11:00:00 RONAN daniel [facility] 2020-09-11 2020-09-11 Outpatient MARCO CISNEROS [facility] [id number] Univers 15:00:00 15:00:00 MAR[facility]CTORIA[facility] 2020-08-19 2020-08-19 Emergency X KIANNA, [facility] ERT [id number] Univers 09:20:00 09:20:00 IVAN solano [facility] 2020-05-23 2020-05-23 Outpatient HUST, [facility] [id number] [address] [place] 00:00:00 00:00:00 DANE 462 Method i 2020-05-23 2020-05-23 Outpatient HUST, [facility] [id number] [address] [place] 00:00:00 00:00:00 DANE 770 Method i 2019-12-02 2019-12-02 Outpatient JANIS SanchezTO TRAVIS [id number] [facility] 12:15:00 12:15:00 Lobo [id number] [facility] 2013-06-29 2013-06-29 Outpatient YURY ROYER [facility] [id number] [facility] 09:24:46 09:24:46 JILL avila of Medicin e Results Test Description Test Time Test Comments Results Result Comments Source POC-Glucose meter 2022-05-06 08:07:07 Test Item Value Reference Range Interpretation Comme [facility] POC-Glucose Meter (test code = 84 mg/dL 70-110 : TESTED AT [facility] [address] [address]) [facility], [facility] 30: Tool Profiling Machine Set Up Operator/Techni juan ID = [id number] for Claudio, Adriana Lab Interpretation (test code = Normal 83019-6) [facility]-Glucose [id number] 08:07:07 Test Item Value Reference Range Interpretation Comments POC-Glucose Meter (test 84 mg/dL 70-110 : TE STED AT [facility] code = 1538) 6720 [facility], [facility] 30: Tool Profiling Machine Set Up Operator/Techni juan ID = [id number] for Claudio, Adriana Lab Interpretation (test Normal code = 98791-5) [facility]-GLUCOSE [id number] 08:07:07 Test Item Value Reference Range Interpretation Comments POC-GLUCOSE METER 84 mg/dL 70-110 : TESTED A T [facility] 6720 (BEAKER) (test code = BERTNE R [facility], 1538) 20088: Tool Profiling Machine Set Up Operator/Techni juan ID = [id number] for Chandni os, Adriana RAD, CHEST, 1 VIEW, NON [id number] 07:22:00Reason for exam:->ptxShould this be performed at the bedside?->Yes [facility] 1935 Sex: FFINAL REPORT CLINICAL HISTORY: ptx TECHNIQUE: 1 view of the chest. COMPARISON: 05/05/2022 IMPRESSION: The small right pneumothorax is unchanged. Patchy bilateral lower lung opacities are unchanged. A trace right effusion is unchanged. The cardiomediastinal silhouette is unchanged. Signed: Luis Conklin [facility] Verified Date/Time: 05/06/2022 07:22:15 Reading Location: [facility] Radiology Reading Room BASIC METABOLIC [id number] 07:01:04 Test Item Value Reference Range Interpretation [...] S NOT APPLICABLE FOR DIALYSIS PATIEN TS. Tool Profiling Machine Set Up Operator ID - DRAGAN [id number] 07:01:04 Test Item Value Reference Range Interpretation Comments MAGNESIUM (BEAKER) (test code = 1.9 mg/dL 1.6-2.6 627) Tool Profiling Machine Set Up Operator ID Brooklynn ARCHIBALD WCBC (HEMOGRAM ONLY)2022-05-06 06:28:34 [...] 0-0 (BEAKER) (test code = 413) POCT-GLUCOSE [id number] 21:33:50 Test Item Value Reference Range Interpretation Comments POC-GLUCOSE METER 95 mg/dL 70-110 : TESTED A T [facility] 6720 (BEAKER) (test code = [place], 1538) 27021: Tool Profiling Machine Set Up Operator/Techni juan ID = [id number] for Chelsea noza, Sherri POCT-GLUCOSE [id number] 17:00:08 Test Item Value Reference Range Interpretation Comments POC-GLUCOSE METER 123 mg/dL 70-110 H : TESTED A T [facility] 6720 (DESIRE) (test code = [place], 1538) 12085: Tool Profiling Machine Set Up Operator/Techni juan ID = [id number] for HU NTER, HIWITHA RAD, CHEST, 1 VIEW, NON [id number] 12:36:00Reason for exam:->R/o pneumothoraxShould this be performed at the bedside?->Yes [facility] 1935 Sex: FFINAL REPORT CLINICAL HISTORY: R/o pneumothorax TECHNIQUE: 1 view of the chest. COMPARISON: 05/04/2022 IMPRESSION: The small right pneumothorax is unchanged. Right chest wall subcutaneous emphysema is again seen. Mild bilateral lung opacities and small pleural effusions are unchanged. There is no significant cardiomegaly. Signed: Luis Conklin Verified Date/Time: 05/05/2022 12:36:46 Reading Location: [facility] Radiology Reading Room POCT- GLUCOSE [id number] 11:51:51 Test Item Value Reference Range Interpretation Comments POC-GLUCOSE METER 76 mg/dL 70-110 : TESTED A T [facility] 6720 (DESIRE) (test code = [place], 1538) 15501: Tool Profiling Machine Set Up Operator/Techni juan ID = [id number] for LEIGH ER, HIWITHA POCT-GLUCOSE [id number] 07:27:49 Test Item Value Reference Range Interpretation Comments POC-GLUCOSE METER 84 mg/dL 70-110 : TESTED A T [facility] 6720 (BEAKER) (test code = [place], 1538) 33087: Tool Profiling Machine Set Up Operator/Techni juan ID = [id number] for JEFFREY HALL BASIC METABOLIC [id number] 05:14:34 Test Item Value Reference Range Interpretation [...] S NOT APPLICABLE FOR DIALYSIS PATIEN TS. Tool Profiling Machine Set Up Operator ID - DRAGAN [id number] 05:14:34 Test Item Value Reference Range Interpretation Comments MAGNESIUM (BEAKER) (test code = 1.9 mg/dL 1.6-2.6 627) Tool Profiling Machine Set Up Operator ID Brooklynn ARCHIBALD WCBC (HEMOGRAM ONLY)2022-05-05 04:29:36 Test Item Value [...] 0-0 (BEAKER) (test code = 413) POCT-GLUCOSE [id number] 21:48:26 Test Item Value Reference Range Interpretation Comments POC-GLUCOSE METER 97 mg/dL 70-110 : TESTED A T [facility] 6720 (BEAKER) (test code = [facility], 1538) 55705: Tool Profiling Machine Set Up Operator/Techni juan ID = [id number] for Sherri Haider POCT-GLUCOSE [id number] 17:44:55 Test Item Value Reference Range Interpretation Comments POC-GLUCOSE METER 85 mg/dL 70-110 : TESTED A T [facility] 6720 (BEAKER) (test code = [facility], 1538) 59473: Tool Profiling Machine Set Up Operator/Techni juan ID = [id number] for Birdie Betts RAD, CHEST, 1 VIEW, NON [id number] 14:47:00Reason for exam:->chest tube removalShould this be performed at the bedside?->Yes [facility] : 1935 Sex: FFINAL [...] Ann Verified Date/Time: 05/04/2022 14:47:19 Reading Location: [address] Consult Reading Room POCT-GLUCOSE [id number] 12:27:08 Test Item Value Reference Range Interpretation Comments POC-GLUCOSE METER 93 mg/dL 70-110 : TESTED A T [facility] 67[address] [facility] (test code = [place], 1538) 81258: Tool Profiling Machine Set Up Operator/Techni juan ID = [id number] for Birdie Betts RAD, CHEST, 1 VIEW, NON [id number] 09:09:00Reason for exam:->R/o pneumothoraxShould this be performed at the bedside?->Yes [facility] : 1935 Sex: FFINAL REPORT RAD, CHEST, 1 VIEW, NON DEPT INDICATION: R/o pneumothorax COMPARISON: Prior day's exam FINDINGS: Portable frontal view of the chest. IMPRESSION: Support Lines: Right chest tube. Lungs and pleura: Unchanged small right apical pneumothorax. Small right effusion. Heart and mediastinum: Stable contours. Additional findings: None. Signed: Kyara Marcuseport Verified Date/Time: 05/04/2022 09:09:00 POCT-GLUCOSE [id number] 08:56:25 Test Item Value Reference Range Interpretation Comments POC-GLUCOSE METER 118 mg/dL 70-110 H : TESTED A T [facility] 6720 (BEAKER) (test code = ELSI [place], 1538) [address]: Tool Profiling Machine Set Up Operator/Techni juan ID = [id number] for Birdie Alvarado BASIC METABOLIC [id number] 04:43:51 Test Item Value Reference Range Interpretation [...] S NOT APPLICABLE FOR DIALYSIS PATIEN TS. Tool Profiling Machine Set Up Operator ID - DELLA [id number] 04:43:51 Test Item Value Reference Range Interpretation Comments MAGNESIUM (BEAKER) (test code = 1.7 mg/dL 1.6-2.6 627) Tool Profiling Machine Set Up Operator ID - DELLA GCBC (HEMOGRAM ONLY)2022-05-04 04:09:42 [...] 0-0 (BEAKER) (test code = 413) POCT-GLUCOSE [id number] 21:36:15 Test Item Value Reference Range Interpretation Comments POC-GLUCOSE METER 123 mg/dL 70-110 H : TESTED A T [facility] 6720 (BEAKER) (test code = [facility], 1538) 25659: Tool Profiling Machine Set Up Operator/Techni juan ID = [id number] for Sherri Wiseman POCT-GLUCOSE [id number] 17:15:07 Test Item Value Reference Range Interpretation Comments POC-GLUCOSE METER 99 mg/dL 70-110 : TESTED A T [facility] 6720 (BEAKER) (test code = [facility], 1538) 85106: Tool Profiling Machine Set Up Operator/Techni juan ID = [id number] for Birdie Betts RAD, CHEST, 1 VIEW, NON [id number] 13:29:00Reason for exam:->r/o pneumothoraxShould this be performed at the bedside?->Yes [facility] : 1935 Sex: FFINAL REPORT Chest one view. Clinical history: r/o pneumothorax Comparison: 05/02/2022 Discussion: A frontal chest is provided. Cardiomediastinal contours are unchanged. Lines and tubes are in stable position. Right-sided pneumothorax is without interval change. Unchanged atelectasis/consolidation in the medial right lower lung. No new airspace disease. No large effusion. Stable right chest wall subcutaneous emphysema. Signed: Luna Ann Verified Date/Time: 05/03/2022 13:29:36 Reading Location: [address] Consult Reading Room POCT- GLUCOSE [id number] 11:41:15 Test Item Value Reference Range Interpretation Comments POC-GLUCOSE METER 103 mg/dL 70-110 : TESTED A T [facility] 6720 ([employer]) (test code = ELSI Mason [facility], 1538) 03600: Tool Profiling Machine Set Up Operator/Techni juan ID = [id number] for Gi les, Adeja POCT-GLUCOSE [id number] 07:30:50 Test Item Value Reference Range Interpretation Comments POC-GLUCOSE METER 86 mg/dL 70-110 : TESTED A T [facility] 6720 ([employer]) (test code = ELSI [place] [facility], 1538) 40883: Tool Profiling Machine Set Up Operator/Techni juan ID = [id number] for Terencee s, Adeja [id number] 06:26:15 Test Item Value Reference Range Interpretation Comments MAGNESIUM ([employer]) (test code = 1.9 mg/dL 1.6-2.6 627) Tool Profiling Machine Set Up Operator ID - DELLA GBASIC METABOLIC [id number] 06:26:14 Test Item Value Reference Range Interpretation [...] S NOT APPLICABLE FOR DIALYSIS PATIEN TS. Tool Profiling Machine Set Up Operator ID - DELLA GCBC (HEMOGRAM ONLY)2022-05-03 06:10:08 [...] 0-0 (BEAKER) (test code = 413) POCT-GLUCOSE [id number] 21:16:35 Test Item Value Reference Range Interpretation Comments POC-GLUCOSE METER 101 mg/dL 70-110 : TESTED A T [facility] 6720 (BEAKER) (test code = ELSI Mason [facility], 1538) 28833: Tool Profiling Machine Set Up Operator/Techni juan ID = [id number] for Sherri Wiseman POCT-GLUCOSE [id number] 16:51:48 Test Item Value Reference Range Interpretation Comments POC-GLUCOSE METER 83 mg/dL 70-110 : TESTED A T [facility] 6720 (BEAKER) (test code = [facility] Marlon [facility], 1538) 90039: Tool Profiling Machine Set Up Operator/Techni juan ID = [id number] for JEFFREY HALL 2D Echo W/Doppler(CW/PW/Color)2022-05-02 14:50:42Ejection FractionSLEH ECHO [facility] W/Doppler(CW/PW/Color)2022-05-02 14:50:42Ejection FractionSLE [facility]CHO [facility], 1 VIEW, NON [id number] 14:10:00Reason for exam:->R/O pneumoShould this be performed at the bedside?->[facility] : 1935 Sex: FFINAL REPORT Chest AP [...] heart size and vascularity. Signed: Jose Ramon [place] Verified Date/Time: 05/02/2022 14:10:15 Reading Location: [facility] Radiology Reading Room RAD, CHEST, 1 VIEW, NON [id number] 13:14:00Reason for exam:->s/p CT surgeryShould this be performed at the bedside?->Yes [facility] : 1935 Sex: FFINAL [...] pleural thickening/scarring or small pleural effusion. Signed: P hilip, [place] MDReport Verified Date/Time: 05/02/2022 13:14:45 Reading Location: [facility] Radiology Reading Room POCT-GLUCOSE [id number] 12:31:33 Test Item Value Reference Range Interpretation Comments POC-GLUCOSE METER 100 mg/dL 70-110 : TESTED A T [facility] 6720 (BEAKER) (test code = [facility], 1538) 77882: Tool Profiling Machine Set Up Operator/Techni juan ID = [id number] for Gabbi Roberts POCT-GLUCOSE [id number] 07:26:29 Test Item Value Reference Range Interpretation Comments POC-GLUCOSE METER 83 mg/dL 70-110 : TESTED A T [facility] 6720 (BEAKER) (test code = [facility], 1538) 58252: Tool Profiling Machine Set Up Operator/Techni juan ID = [id number] for JEFFREY HALL BASIC METABOLIC [id number] 06:08:27 Test Item Value Reference Range Interpretation [...] S NOT APPLICABLE FOR DIALYSIS PATIEN TS. Tool Profiling Machine Set Up Operator ID - DRAGAN [id number] 06:08:27 Test Item Value Reference Range Interpretation Comments MAGNESIUM (BEAKER) (test code = 1.7 mg/dL 1.6-2.6 627) Tool Profiling Machine Set Up Operator ID - DRAGAN WCBC (HEMOGRAM ONLY)2022-05-02 05:59:25 Test Item Value [...] 0-0 (BEAKER) (test code = 413) POCT-GLUCOSE [id number] 21:26:19 Test Item Value Reference Range Interpretation Comments POC-GLUCOSE METER 106 mg/dL 70-110 : TESTED A T [facility] 6720 (BEAKER) (test code = [facility] [employer] [facility], 1538) 79728: Tool Profiling Machine Set Up Operator/Techni juan ID = [id number] for SVEN KEOJAVI POCT-GLUCOSE [id number] 17:37:12 Test Item Value Reference Range Interpretation Comments POC-GLUCOSE METER 81 mg/dL 70-110 : TESTED A T [facility] 6720 (BEAKER) (test code = [facility] [employer] [facility], 1538) 62329: Tool Profiling Machine Set Up Operator/Techni juan ID = [id number] for MICAH CODYSANTINO POCT-GLUCOSE [id number] 11:46:18 Test Item Value Reference Range Interpretation Comments POC-GLUCOSE METER 100 mg/dL 70-110 : TESTED Abimbola Montemayor [facility] 6720 (DESIRE) (test code = [place], 1538) 05024: Tool Profiling Machine Set Up Operator/Techni juan ID = [id number] for SANTINO SOLOMON RAD, CHEST, 1 VIEW, NON [id number] 10:08:00Reason for exam:->Shortness of breath after chest tube removal [facility] : 1935 Sex: FFINAL [...] place.3.Small left pleural effusion. Signed: Darwin Albright Verified Date/Time: 05/01/2022 10:08:33 Reading Location: [facility] Radiology Reading Room RAD, CHEST, 1 VIEW, NON [id number] 09:40:00Reason for exam:->s/p CT surgeryShould this be performed at the bedside?->Yes [facility] : 1935 Sex: FFINAL REPORT [...] Albright Verified Date/Time: 05/01/2022 09:40:35 Reading Location: [facility] Radiology Reading Room POCT-GLUCOSE [id number] 07:52:00 Test Item Value Reference Range Interpretation Comments POC-GLUCOSE METER 87 mg/dL 70-110 : TESTED A T [facility] 6720 (BEAKER) (test code = [place], 1538) 97667: Tool Profiling Machine Set Up Operator/Techni juan ID = [id number] for WILL VIVIAN, SANTINO BASIC METABOLIC [id number] 05:35:18 Test Item Value Reference Range Interpretation [...] S NOT APPLICABLE FOR DIALYSIS PATIEN TS. Tool Profiling Machine Set Up Operator ID - DELLA [id number] 05:35:18 Test Item Value Reference Range Interpretation Comments MAGNESIUM (BEAKER) (test code = 1.6 mg/dL 1.6-2.6 627) Tool Profiling Machine Set Up Operator ID - DELLA GCBC (HEMOGRAM ONLY)2022-05-01 05:02:18 [...] 0-0 (BEAKER) (test code = 413) POCT-GLUCOSE [id number] 21:29:06 Test Item Value Reference Range Interpretation Comments POC-GLUCOSE METER 115 mg/dL 70-110 H : TESTED A T [facility] 6720 (BEAKER) (test code = [facility], 1538) 94268: Tool Profiling Machine Set Up Operator/Techni juan ID = [id number] for REBECA SADLER SE POCT-GLUCOSE [id number] 17:31:57 Test Item Value Reference Range Interpretation Comments POC-GLUCOSE METER 94 mg/dL 70-110 : TESTED A T [facility] 6720 (BEAKER) (test code = [facility], 1538) 34909: Tool Profiling Machine Set Up Operator/Techni juan ID = [id number] for Adriana Patel POCT-GLUCOSE [id number] 12:08:03 Test Item Value Reference Range Interpretation Comments POC-GLUCOSE METER 107 mg/dL 70-110 : TESTED A T [facility] 6720 (BEAKER) (test code = [facility], 1538) 54723: Tool Profiling Machine Set Up Operator/Techni juan ID = [id number] for Denzel Rosales RAD, CHEST, 1 VIEW, NON [id number] 08:33:00Reason for exam:->s/p CT surgeryShould this be performed at the bedside?->Yes [facility] 1935 Sex: FFINAL REPORT CHEST AP PORTABLE Comparison exam: 04/29/2022 History provided: Follow-up after chest surgery Right chest tube unchanged in appearance. Right apical pneumothorax appears improved, currently estimated at 10-15% by volume. Basilar atelectatic change remains with small effusions. Subcutaneous emphysema on the right unchanged. Signed: Jose Ramon Soares MDReport Verified Date/Time: 04/30/2022 08:33:10 Reading Location: [facility] Diagnostic Imaging Reading Room - [facility] 1.310.12 POCT-GLUCOSE [id number] 07:37:15 Test Item Value Reference Range Interpretation Comments POC-GLUCOSE METER 107 mg/dL 70-110 : TESTED A T [facility] 6720 (BEAKER) (test code = [place], 1538) 50067: Tool Profiling Machine Set Up Operator/Techni juan ID = [id number] for Denzel Rosalesbessie RAD, CHEST, 1 VIEW, NON [id number] 22:45:00Reason for exam:->post CT removal Should this be performed at the bedside?->Yes [facility] : 1935 Sex: FFINAL REPORT EXAM: Chest one view COMPARISON: April 29, 2022 CLINICAL HISTORY: Chest tube removal FINDINGS: The right chest tube appears unchanged in position. There is interval improvement in the right apical pneumothorax. Subcutaneous emphysema of the right chest wall again noted. Thecardiac size is within normal limits. The regional osseous structures are unchanged. Signed: Curtis Garza MDReport Verified Date/Time: 04/29/2022 22:45:51 RAD, CHEST, 1 VIEW, NON [id number] 22:36:00Reason for exam:->right pleural chest tube removalShould this be performed at the bedside?->Yes [facility] : 1935 Sex: FFINAL [...] Garza MDReport Verified Date/Time: 04/29/2022 22:36:37 POCT-GLUCOSE [id number] 21:32:06 Test Item Value Reference Range Interpretation Comments POC-GLUCOSE METER 107 mg/dL 70-110 : TESTED A T [facility] 6720 (BEAKER) (test code = [place], 1538) 15364: Tool Profiling Machine Set Up Operator/Techni juan ID = [id number] for GALEN SANCHES POCT-GLUCOSE [id number] 16:27:06 Test Item Value Reference Range Interpretation Comments POC-GLUCOSE METER 79 mg/dL 70-110 : TESTED A T [facility] 6720 (DESIRE) (test code = [place], 1538) 14793: Tool Profiling Machine Set Up Operator/Techni juan ID = [id number] for Kylee Olivera RAD, CHEST, 1 VIEW, NON [id number] 11:48:00Reason for exam:->post opShould this be performed at the bedside?->Yes [facility] : 1935 Sex: FFINAL [...] in place.2.Small left pleural effusion. Signed: Darwin Albrightort Verified Date/Time: 04/29/2022 11:48:25 Reading Location: [facility] Radiology Reading Room -GLUCOSE [id number] 11:10:43 Test Item Value Reference Range Interpretation Comments POC-GLUCOSE METER 80 mg/dL 70-110 : TESTED A T [facility] 6720 (DESIRE) (test code = [place], 1538) 14201: Tool Profiling Machine Set Up Operator/Techni juan ID = [id number] for Joie Welch CBC W/PLT COUNT & AUTO [id number] 09:22:21 Test Item Value Reference Range Interpretation [...] CONCENTRATION Adequate (CELLAVISION)(BEAKER) (test code = 3438) Tool Profiling Machine Set Up Operator ID - Noel comments: Slide comments:POCT-GLUCOSE [id number] 07:10:50 Test Item Value Reference Range Interpretation Comments POC-GLUCOSE METER 91 mg/dL 70-110 : TESTED A T [facility] 6720 (BEAKER) (test code = [place], 1538) 90611: Tool Profiling Machine Set Up Operator/Techni juan ID = [id number] for Armaan charles (contract)Angelo BASIC METABOLIC [id number] 04:56:58 Test Item Value Reference Range Interpretation [...] S NOT APPLICABLE FOR DIALYSIS PATIEN TS. Tool Profiling Machine Set Up Operator ID - JONI [id number] 04:56:58 Test Item Value Reference Range Interpretation Comments MAGNESIUM (BEAKER) (test code = 1.7 mg/dL 1.6-2.6 627) Tool Profiling Machine Set Up Operator ID - JONI [id number] 04:56:58 Test Item Value Reference Range Interpretation Comments PHOSPHORUS (BEAKER) (test code = 2.5 mg/dL 2.3-4.7 604) Tool Profiling Machine Set Up Operator ID - JONI LCALCIUM, [id number] 04:51:14 Test Item Value Reference Range Interpretation Comments CALCIUM IONIZED (BEAKER) (test 1.16 mmol/L 1.12-1.27 code = 698) PH, BLOOD (BEAKER) (test code = 7.38 1810) POCT-GLUCOSE [id number] 01:42:33 Test Item Value Reference Range Interpretation Comments POC-GLUCOSE METER 82 mg/dL 70-110 : TESTED A T [facility] 6720 (BEAKER) (test code = [place], 1538) 76406: Tool Profiling Machine Set Up Operator/Techni juan ID = [id number] for Scarlett Matthews POCT-GLUCOSE [id number] 16:36:01 Test Item Value Reference Range Interpretation Comments POC-GLUCOSE METER 85 mg/dL 70-110 : TESTED A T [facility] 6720 (BEAKER) (test code = [place], 1538) [address]: Tool Profiling Machine Set Up Operator/Techni juan ID = [id number] for ZANE YEH RAD, CHEST, 1 VIEW, NON [id number] 15:36:00Reason for exam:->assess for R ptx after chest tubes place to water seal in setting of air leakShould this be performed at the bedside?->Yes [facility] 1935 Sex: FAddendum BeginsREPORT STATUS:A The above findings were discussed with nurse Shereen Chaney, who acknowledged the findings, on 04/28/2022 at 3:33 PM. Signed: Darwin Albright VerifiedDate/Time: 04/28/2022 15:36:39 Reading Location: [facility] Radiology Reading RoomAddendum EndsFINAL REPORT [...] Albright Verified Date/Time: 04/28/2022 15:33:04 Reading Location: [facility] Radiology Reading Room POCT-GLUCOSE [id number] 12:00:43 Test Item Value Reference Range Interpretation Comments POC-GLUCOSE METER 88 mg/dL 70-110 : Notified RN/MD: TESTED (DESIRE) (test code = AT [facility] [address] [facility], [facility] 30: Tool Profiling Machine Set Up Operator/Techni juan ID = [id number] for Luna Browne RAD, CHEST, 1 VIEW, NON [id number] 09:43:00Reason for exam:->post opShould this be performed at the bedside?->Yes [facility] 1935 Sex: FFINAL REPORT RAD, CHEST, 1 VIEW, NON DEPT INDICATION: post op COMPARISON: Prior day's exam TECHNIQUE: Portable frontal view of the chest. FINDINGS: Support Lines and Devices: The right IJ Watson-Albert catheter was removed. Lungs and pleura: Unchanged airspace and pleural opacities. No pneu mothorax identified. Heart and mediastinum: Stable contours. Stable surgical changes. Additional findings: None. IMPRESSION: 1.Two right-sided chest tubes without pneumothorax identified.2.Left retrocardiac opacity, representing singly or in combination airspace disease, atelectasis, or pleural effusion.3.Small left pleural effusion. Signed: Darwin Albright MDReport Verified Date/Time: 04/28/2022 09:43:34 Reading Location: [facility] Radiology Reading Room CBC W/PLT COUNT & AUTO [id number] 07:27:01 Test Item Value Reference Range Interpretation [...] CONCENTRATION Decreased (CELLAVISION)(BEAKER) (test code = 3438) Tool Profiling Machine Set Up Operator ID - Dontae Dato-onUser comments: Slide comments:[id number] 04:46:08 Test Item Value Reference Range Interpretation Comments PHOSPHORUS (BEAKER) 2.2 mg/dL 2.3-4.7 L Specimen slightly (test code = 604) hemolyzed Tool Profiling Machine Set Up Operator ID - DRAGAN WBASIC METABOLIC [id number] 04:46:08 Test Item Value Reference Range Interpretation [...] S NOT APPLICABLE FOR DIALYSIS PATIEN TS. Tool Profiling Machine Set Up Operator ID - DRAGAN TOCUINARYO2225-48-65 04:46:07 Test Item Value Reference Range Interpretation Comments MAGNESIUM (BEAKER) 2.0 mg/dL 1.6-2.6 Specimen slightly (test code = 627) hemolyzed Tool Profiling Machine Set Up Operator ID - DRAGAN WCALCIUM, [id number] 04:06:50 Test Item Value Reference Range Interpretation Comments CALCIUM IONIZED (BEAKER) (test 1.17 mmol/L 1.12-1.27 code = 698) PH, BLOOD (BEAKER) (test code = 7.35 1810) POCT-GLUCOSE [id number] 00:18:38 Test Item Value Reference Range Interpretation Comments POC-GLUCOSE METER 105 mg/dL 70-110 : TESTED A T [facility] 6720 (BEAKER) (test code = [place], 1538) [address]: Tool Profiling Machine Set Up Operator/Techni juan ID = [id number] for Bubba marcus (contract), Janet Quintana [id number] 23:54:00 Test Item Value Reference Range Interpretation Comments CROSSMATCH (test code = 2264) COMPATIBLE Unit ABO (test code = O Pos 1338602) UNIT NUMBER (test code = [id number] 934-0) Status (test code = 6268048) TX_TIMEINCHART Blood Bank Product (test code RED BLOOD CELLS = 2263) PRODUCT CODE (test code = A5473Z11 933-2) [facility] [id number] 23:54:00 Test Item Value Reference Range Interpretation Comments CROSSMATCH (test code = 2264) COMPATIBLE Unit ABO (test code = O Pos 6597967) UNIT NUMBER (test code = [id number] 934-0) Status (test code = 7403895) TX_TIMEINCHART Blood Bank Product (test code RED BLOOD CELLS = 2263) PRODUCT CODE (test code = G4597F40 933-2) [facility] HospitalPOCT-[facility]UCOSE [id number] 18:08:29 Test Item Value Reference Range Interpretation Comments POC-GLUCOSE METER 163 mg/dL 70-110 H : TESTED A T [facility] 6720 (BEAKER) (test code = ELSI Mason [facility], 1538) [address]: Tool Profiling Machine Set Up Operator/Techni juan ID = [id number] for Bessie lala (contract)Felix POCT-GLUCOSE [id number] 11:14:41 Test Item Value Reference Range Interpretation Comments POC-GLUCOSE METER 144 mg/dL 70-110 H : Notified RN/MD: (BEAKER) (test code = TESTED AT [facility] 6720 1538) [facility], [address]: Tool Profiling Machine Set Up Operator/Techni juan ID = [id number] for Vargas Tavarez (CELLAVISION MANUAL DIFF)2022-04-27 09:28:58 [...] CONCENTRATION Decreased (CELLAVISION)(BEAKER) (test code = 3438) Tool Profiling Machine Set Up Operator ID - Norma OverholtUser comments: Slide comments:CBC W/PLT COUNT & AUTO [id number] 09:28:57 Test Item Value Reference Range Interpretation [...] = 413) RAD, CHEST, 1 VIEW, NON [id number] 08:19:00Reason for exam:->post opShould this be performed at the bedside?->Yes [facility] : 1935 Sex: FFINAL REPORT RAD, CHEST, 1 VIEW, NON DEPT INDICATION: post op COMPARISON: Prior day's exam FINDINGS: Portable frontal view of the chest. IMPRESSION: Support Lines: Right chest tubes. Watson-Albert tip overlies the pulmonary outflow tract. Lungs and pleura: Small bilateral effusions and adj acent atelectasis. Unchanged small right apical pneumothorax. Heart and mediastinum: Stable contours. Stable surgical changes. Additional findings: None. Signed: Kyara Marcuseport Verified Date/Time: 04/27/2022 08:19:36 -GLUCOSE [id number] 07:49:42 Test Item Value Reference Range Interpretation Comments POC-GLUCOSE METER 121 mg/dL 70-110 H : Notified RN/MD: (DESIRE) (test code = TESTED AT [facility] 6720 1538) [facility], [address]: Tool Profiling Machine Set Up Operator/Techni juan ID = [id number] for Pa ppas, Laura [id number] 06:55:59 Test Item Value Reference Range Interpretation Comments PHOSPHORUS (BEAKER) (test code = 2.9 mg/dL 2.3-4.7 604) Tool Profiling Machine Set Up Operator ID - THERESA MBASIC METABOLIC [id number] 06:55:58 Test Item Value Reference Range Interpretation [...] S NOT APPLICABLE FOR DIALYSIS PATIEN TS. Tool Profiling Machine Set Up Operator ID - THERESA [id number] 06:55:58 Test Item Value Reference Range Interpretation Comments MAGNESIUM (BEAKER) (test code = 1.9 mg/dL 1.6-2.6 627) Tool Profiling Machine Set Up Operator ID - THERESA MOXYGEN SATURATION, [id number] 06:20:51 Test Item Value Reference Range Interpretation Comments O2 SATURATION (MEASURED) (BEAKER) 79.0 % (test code = 1455) Blood gas, [id number] 06:16:43 Test Item Value Reference Range Interpretation Comments pH, Arterial (test code 7.39 7.35-7.45 = 2744-1) pCO2, Arterial (test 42 See_Comment [Autom ated code = 2019-05) message] The system which generated this result [...] 36 Lab Interpretation Abnormal (test code = 04908-1) [facility] HospitalBlood gas, [id number] 06:16:43 Test Item Value Reference Range Interpretation Comments pH, Arterial (test code 7.39 7.35-7.45 = 2744-1) pCO2, Arterial (test 42 See_Comment [Autom ated code = 2019-05) message] The system which generated this result [...] 36 Lab Interpretation Abnormal (test code = 35109-8) [facility] HospitalBLOOD GAS, [id number] 06:16:43 Test Item Value Reference Range Interpretation [...] (BEAKER) (test code = 1819) 36.0 CALCIUM, [id number] 06:16:43 Test Item Value Reference Range Interpretation Comments CALCIUM IONIZED (BEAKER) (test 1.11 mmol/L 1.12-1.27 L code = 698) PH, BLOOD (BEAKER) (test code = 7.39 1810) POCT-GLUCOSE [id number] 00:36:03 Test Item Value Reference Range Interpretation Comments POC-GLUCOSE METER 133 mg/dL 70-110 H : TESTED A T [facility] 6720 (BEAKER) (test code [facility], = 1538) [address]: Tool Profiling Machine Set Up Operator/Techni juan ID = [id number] for CADI ANG, GLORINEIL Prepare Leuko-Red [id number] 23:54:00 Test Item Value Reference Range Interpretation Comments CROSSMATCH (test code = 2264) COMPATIBLE Unit ABO (test code = O Pos 8189493) UNIT NUMBER (test code = [id number] 934-0) Status (test code = 6296230) TX_TIMEINCHART Blood Bank Product (test code RED BLOOD CELLS = 2263) PRODUCT CODE (test code = D6238T58 933-2) [facility] Leuko-Red [id number] 23:54:00 Test Item Value Reference Range Interpretation Comments CROSSMATCH (test code = 2264) COMPATIBLE Unit ABO (test code = O Pos 8821341) UNIT NUMBER (test code = [id number] 934-0) Status (test code = 5906906) TX_TIMEINCHART Blood Bank Product (test code RED BLOOD CELLS = 2263) PRODUCT CODE (test code = Z9597K00 933-2) [facility] HospitalRAD, CHEST, 1 VIEW, NON [id number] 21:54:00Reason for exam:->CT with new air leak - rightShould this be performed at the bedside?->[facility] : 1935 Sex: FFINAL REPORT RAD, CHEST, 1 VIEW, NON DEPT INDICATION: CT with new air leak - right COMPARISON: Exam from eight hours prior FINDINGS: Portable frontal view of the chest. IMPRESSION: Support Lines: Stable pulmonary arterial catheter. Right-sided chest tubes are in place. Lungs and pleura: Unchanged bilateral airspace and pleural opacities. No pneumothorax. Heart and mediastinum: Stable contours. Additional findings: None. Signed: Kita Blanco Verified Date/Time: 04/26/2022 21:54:36 HEMOGLOBIN AND [id number] 20:43:14 Test Item Value Reference Range Interpretation Comments HEMOGLOBIN (BEAKER) (test code = 9.4 GM/DL 11.2-15.7 L 410) HEMATOCRIT (BEAKER) (test code = 28.1 % 34.1-44.9 L 411) Tool Profiling Machine Set Up Operator ID - 6000POCT-GLUCOSE [id number] 17:37:48 Test Item Value Reference Range Interpretation Comments POC-GLUCOSE METER 191 mg/dL 70-110 H : TESTED A T [facility] 6720 (BEAKER) (test code = ELSI Mason [facility], 1538) [address]: Tool Profiling Machine Set Up Operator/Techni juan ID = [id number] for Telma pina (contract), Ran ei RAD, CHEST, 1 VIEW, NON [id number] 12:57:00Reason for exam:->post washout, eval hemothoraxShould this be performed at the bedside?->Yes [facility] : 1935 Sex: FFINAL REPORT TECHNIQUE: Frontal view of the chest. INDICATION: post washout, eval hemothorax. COMPARISON: 04/26/2022 at 1:47 AM and 04/25/2022 at 5:37 AM. FINDINGS: LINES/TUBES: Right IJ Watson-Albert catheter remains unchanged. There is been interval [...] change. No overt edema. Signed: Joanie Luis [facility] Verified Date/Time: 04/26/2022 12:57:33 Prepare [id number] 11:43:00 Test Item Value Reference Range Interpretation Comments Unit ABO (test code = O Pos 6723713) UNIT NUMBER (test code = [id number] 934-0) Status (test code = RETURNED FROM ISSUE 8465896) Blood Bank Product (test FFP code = 2263) PRODUCT CODE (test code = G9235E87 933-2) [facility] [id number] 11:43:00 Test Item Value Reference Range Interpretation Comments Unit ABO (test code = O Pos 9222480) UNIT NUMBER (test code = [id number] 934-0) Status (test code = RETURNED FROM ISSUE 8147318) Blood Bank Product (test FFP code = 2263) PRODUCT CODE (test code = L1735B57 933-2) [facility] HospitalOXYGEN SATURATION, [id number] 11:30:33 Test Item Value Reference Range Interpretation Comments O2 SATURATION (MEASURED) (BEAKER) 74.9 % (test code = 1455) [id number] 11:25:52 Test Item Value Reference Range Interpretation Comments PHOSPHORUS (BEAKER) (test code = 2.8 mg/dL 2.3-4.7 604) Tool Profiling Machine Set Up Operator ID - THERESA MBASIC METABOLIC [id number] 11:25:51 Test Item Value Reference Range Interpretation [...] S NOT APPLICABLE FOR DIALYSIS PATIEN TS. Tool Profiling Machine Set Up Operator ID - THERESA [id number] 11:25:51 Test Item Value Reference Range Interpretation Comments MAGNESIUM (BEAKER) (test code = 2.0 mg/dL 1.6-2.6 627) Tool Profiling Machine Set Up Operator GONZALO CARDENAS MLactic Acid, [id number] 11:20:10 Test Item Value Reference Range Interpretation Comments Lactate, Art (test code = 0.7 mmol/L 0.5-2.2 2874) MISHA (test code = MISHA) Tool Profiling Machine Set Up Operator GONZALO CARDENAS M Lab Interpretation (test Normal code = 06044-4) [facility] HospitalLactic Acid, [id number] 11:20:10 Test Item Value Reference Range Interpretation Comments Lactate, Art (test code = 0.7 mmol/L 0.5-2.2 2874) MISHA (test code = MISHA) Tool Profiling Machine Set Up Operator ID - THERESA M Lab Interpretation (test Normal code = 42366-1) [facility] HospitalLACTIC ACID, [id number] 11:20:10 Test Item Value Reference Range Interpretation Comments LACTATE BLOOD ARTERIAL (2) 0.7 mmol/L 0.5-2.2 (BEAKER) (test code = 2874) Tool Profiling Machine Set Up Operator GONZALO - THERESA [id number] 11:18:48 Test Item Value Reference Range Interpretation [...] is 2.5-3.5 for patients with mechanical heart valves.[id number] 11:18:47 Test Item Value Reference Range Interpretation Comments FIBRINOGEN LEVEL (BEAKER) (test 405 mg/dl 225-434 code = 658) BLOOD GAS, [id number] 11:14:34 Test Item Value Reference Range Interpretation [...] (BEAKER) (test code = 1819) 40.0 CALCIUM, [id number] 11:14:28 Test Item Value Reference Range Interpretation [...] WBC 0-0 (test code = 413) CALCIUM, [id number] 09:26:35 Test Item Value Reference Range Interpretation Comments CALCIUM IONIZED (BEAKER) (test 1.10 mmol/L 1.12-1.27 L code = 698) PH, BLOOD (BEAKER) (test code = 7.48 1810) HGB/HCT (H&H)-Stat [id number] 09:26:34 Test Item Value Reference Range Interpretation Comments Hemoglobin (test code = 8.2 See_Comment L [Au tomated message] 786-4) The system [employer]ense generated this result transmitted ref erence range: 12.0 - 1 5.0 GM/DL. The refe rence range was not u sed to interpret this result as normal/abnor mal. Hematocrit (test code = 24.0 % 36.0-45.0 L 4544-3) Lab Interpretation (test Abnormal code = 88065-7) [facility] [id number] 09:26:34 Test Item Value Reference Range Interpretation Comments Sodium (test code = 2951-2) 133 meq/L 136-145 L Lab Interpretation (test code = Abnormal 33079-0) [facility] HospitalHGB/HCT (H&H)-Stat [id number] 09:26:34 Test Item Value Reference Range Interpretation Comments Hemoglobin (test code = 8.2 See_Comment L [Au tomated message] 786-4) The system [employer] generated this result transmitted ref erence range: 12.0 - 1 5.0 GM/DL. The refe rence range was not u sed to interpret this result as normal/abnor mal. Hematocrit (test code = 24.0 % 36.0-45.0 L 4544-3) Lab Interpretation (test Abnormal code = 92527-3) [facility] [id number] 09:26:34 Test Item Value Reference Range Interpretation Comments Sodium (test code = 2951-2) 133 meq/L 136-145 L Lab Interpretation (test code = Abnormal 56607-0) [facility]-STAT [id number] 09:26:34 Test Item Value Reference Range Interpretation Comments SODIUM (BEAKER) (test code = 381) 133 meq/L 136-145 L HGB/HCT (H&H) - STAT [id number] 09:26:34 Test Item Value Reference Range Interpretation Comments HEMOGLOBIN (BEAKER) (test code = 8.2 GM/DL 12.0-15.0 L 410) HEMATOCRIT (BEAKER) (test code = 24.0 % 36.0-45.0 L 411) BLOOD GAS, [id number] 09:26:33 Test Item Value Reference Range Interpretation [...] (BEAKER) (test code = 1819) 60.0 Glucose-Stat [id number] 09:26:21 Test Item Value Reference Range Interpretation Comments Glucose (test code = 2345-7) 105 mg/dL 70-110 Lab Interpretation (test code = Normal 76871-0) [facility]Potassium-Stat [id number] 09:26:21 Test Item Value Reference Range Interpretation Comments Potassium (test code = 2823-3) 3.7 meq/L 3.6-5.5 Lab Interpretation (test code = Normal 01865-2) [facility]Glucose-Stat [id number] 09:26:21 Test Item Value Reference Range Interpretation Comments Glucose (test code = 2345-7) 105 mg/dL 70-110 Lab Interpretation (test code = Normal 90497-0) [facility] HospitalPotassium-Stat [id number] 09:26:21 Test Item Value Reference Range Interpretation Comments Potassium (test code = 2823-3) 3.7 meq/L 3.6-5.5 Lab Interpretation (test code = Normal 79001-6) [facility] HospitalGLUCOSE-STAT [id number] 09:26:21 Test Item Value Reference Range Interpretation Comments GLUCOSE RANDOM (BEAKER) (test code 105 mg/dL 70-110 = 652) POTASSIUM-STAT [id number] 09:26:21 Test Item Value Reference Range Interpretation Comments POTASSIUM (BEAKER) (test code = 3.7 meq/L 3.6-5.5 379) RAD, CHEST, 1 VIEW, NON [id number] 07:33:00while patient is intubated or has chest tubes.Reason for exam:->Status post CV SurgeryShould thisbe performed at the bedside?->Yes [facility] : 1935 Sex: FFINAL REPORT RAD, CHEST, 1 VIEW, NON DEPT INDICATION: Status post CV Surgery COMPARISON: Prior day's exam FINDINGS: Portable frontal view of the chest. IMPRESSION: Support Lines: Watson-Albert tip overlies the right pulmonary outflow tract. Right chest tube. Lungs and pleura: Loculated right hemothorax is better demonstrated on prior CT. Opacity within the right upper lung persists. Small pneumothorax component is not well seen on current radiograph. Heart and mediastinum: Stable contours. Stable surgical changes. Additional findings: None. Signed: Kyara Marcus Verified Date/Time: 04/26/2022 07:33:47 -GLUCOSE [id number] 06:00:43 Test Item Value Reference Range Interpretation Comments POC-GLUCOSE METER 113 mg/dL 70-110 H : TESTED A T [facility] 6720 (BEAKER) (test code = ELSI Mason [facility], 1538) [address]: Tool Profiling Machine Set Up Operator/Techni juan ID = [id number] for KEVYN SALGUERO [id number] 03:10:22 Test Item Value Reference Range Interpretation Comments PHOSPHORUS (BEAKER) (test code = 2.9 mg/dL 2.3-4.7 604) Tool Profiling Machine Set Up Operator ID - THERESA MBASIC METABOLIC [id number] 03:10:21 Test Item Value Reference Range Interpretation [...] S NOT APPLICABLE FOR DIALYSIS PATIEN TS. Tool Profiling Machine Set Up Operator ID - THERESA [id number] 03:10:21 Test Item Value Reference Range Interpretation Comments MAGNESIUM (BEAKER) (test code = 1.6 mg/dL 1.6-2.6 627) Tool Profiling Machine Set Up Operator ID - THERESA MCBC (HEMOGRAM ONLY)2022-04-26 02:27:34 [...] 0-0 (BEAKER) (test code = 413) CALCIUM, [id number] 02:18:11 Test Item Value Reference Range Interpretation Comments CALCIUM IONIZED (BEAKER) (test 1.13 mmol/L 1.12-1.27 code = 698) PH, BLOOD (BEAKER) (test code = 7.45 1810) POCT-GLUCOSE [id number] 00:01:48 Test Item Value Reference Range Interpretation Comments POC-GLUCOSE METER 131 mg/dL 70-110 H : TESTED A T [facility] 6720 (BEAKER) (test code = [place], 1538) [address]: Tool Profiling Machine Set Up Operator/Techni juan ID = [id number] for SA KEVYN BULLARD Prepare [id number] 23:54:00 Test Item Value Reference Range Interpretation Comments Unit ABO (test code = O Pos 9392018) UNIT NUMBER (test code = [id number] 934-0) Status (test code = 4758602) TX_TIMEINCHART Blood Bank Product (test code CRYOPRECIPITATE = 2263) PRODUCT CODE (test code = H5980P54 933-2) [facility] [id number] 23:54:00 Test Item Value Reference Range Interpretation Comments Unit ABO (test code = 5436452) O Pos UNIT NUMBER (test code = [id number] 934-0) Status (test code = 0399335) TX_TIMEINCHART Blood Bank Product (test code PLATELETS = 2263) PRODUCT CODE (test code = Y1198T99 933-2) [facility] Hospital[facility] [id number] 23:54:00 Test Item Value Reference Range Interpretation Comments Unit ABO (test code = O Pos 4967855) UNIT NUMBER (test code = [id number] 934-0) Status (test code = 5015807) TX_TIMEINCHART Blood Bank Product (test code CRYOPRECIPITATE = 2263) PRODUCT CODE (test code = K1386J11 933-2) [facility] [id number] 23:54:00 Test Item Value Reference Range Interpretation Comments Unit ABO (test code = 0522921) O Pos UNIT NUMBER (test code = [id number] 934-0) Status (test code = 3403579) TX_TIMEINCHART Blood Bank Product (test code PLATELETS = 2263) PRODUCT CODE (test code = Z8198S46 933-2) [facility] HospitalBASIC METABOLIC [id number] 19:28:22 Test Item Value Reference Range Interpretation [...] S NOT APPLICABLE FOR DIALYSIS PATIEN TS. Tool Profiling Machine Set Up Operator ID - HGLACTIC ACID, [id number] 18:55:34 Test Item Value Reference Range Interpretation Comments LACTATE BLOOD ARTERIAL (2) 0.9 mmol/L 0.5-2.2 (BEAKER) (test code = 2874) Tool Profiling Machine Set Up Operator ID - HGOXYGEN SATURATION, [id number] 18:44:34 Test Item Value Reference Range Interpretation Comments O2 SATURATION (MEASURED) (BEAKER) 60.5 % (test code = 1455) HEMOGLOBIN AND [id number] 18:42:34 Test Item Value Reference Range Interpretation Comments HEMOGLOBIN (BEAKER) (test code = 8.5 GM/DL 11.2-15.7 L 410) HEMATOCRIT (BEAKER) (test code = 24.5 % 34.1-44.9 L 411) Tool Profiling Machine Set Up Operator ID - 6000POCT-GLUCOSE [id number] 16:41:19 Test Item Value Reference Range Interpretation Comments POC-GLUCOSE METER 147 mg/dL 70-110 H : TESTED A T [facility] 6720 (BEAKER) (test code [facility], = 1538) [address]: Tool Profiling Machine Set Up Operator/Techni juan ID = [id number] for Jim rioz (contract)Aaron PT/[id number] 13:29:52 Test Item Value Reference Range Interpretation [...] is 2.5-3.5 for patients with mechanical heart valves.[id number] 13:29:31 Test Item Value Reference Range Interpretation Comments FIBRINOGEN LEVEL (BEAKER) (test 380 mg/dl 225-434 code = 658) POCT-GLUCOSE [id number] 13:25:47 Test Item Value Reference Range Interpretation Comments POC-GLUCOSE METER 124 mg/dL 70-110 H : TESTED A T [facility] 6720 (BEAKER) (test code [facility], = 1538) [address]: Tool Profiling Machine Set Up Operator/Techni juan ID = [id number] for Jim rizo (contract)Aaron CBC (HEMOGRAM ONLY)2022-04-25 [...] = 413) RAD, CHEST, 1 VIEW, NON [id number] 12:41:00while patient is intubated or has chest tubes.Reason for exam:->Status post CV SurgeryShould thisbe performed at the bedside?->Yes [facility] : 1935 Sex: FFINAL REPORT RAD, CHEST, 1 VIEW, NON DEPT INDICATION: Status post CV Surgery COMPARISON: Prior day's exam FINDINGS: Portable frontal view of the chest. IMPRESSION: Support Lines: Watson-Albert tip overlies the right main pulmonary artery. Right chest tube. Lungs and pleura: Dense consolidation within the right upper lung is unchanged. No significant pneumothorax. Heart and mediastinum: Stable contours. Stable surgical changes. Additional findings: None. Signed: Kyara Marcus MDRlesaort Verified Date/Time: 04/25/2022 12:41:59 Reading Location: [facility] Radiology Reading Room [id number] 12:02:08 Test Item Value Reference Range Interpretation Comments Scan Result (test code = See scanned report [id number]) MISHA (test code = MISHA) See scanned report [facility]em2022-07-08 12:02:08 Test Item Value Reference Range Interpretation Comments Scan Result (test code = See scanned report [id number]) MISHA (test code = MISHA) See scanned report [facility] HospitalMISCELLANEOUS LAB [id number] 12:02:08 Test Item Value Reference Range Interpretation Comments SCAN RESULT (test code = See scanned report [id number]) See scanned reportCT, CHEST, WITHOUT [id number] 11:18:00Unlisted Reason for Exam - Click Yes and Enter Reason Below->YesUnlisted Reason for Exam- >s/p CT surgery, concern for hemothorax [facility] 1935 Sex: FFINAL [...] nodes without IV contrast. Otherwise unremarkableCardiovascular: Small pneumopericardium.Watson- Albert catheter tip in the right interlobar [...] 3.3 cm in diameter Signed: Elise Chau [facility] Verified Date/Time: 04/25/2022 11:18:20 RAD, CHEST, 1 VIEW, NON [id number] 10:12:00Reason for exam:->RUL lung collapse [facility] : 1935 Sex: FFINAL REPORT RAD, CHEST, 1 VIEW, NON DEPT INDICATION: RUL lung collapse COMPARISON: Prior day's exam FINDINGS: Portable frontal view of the chest. IMPRESSION: Support Lines: Watson-Albert tip overlies the right pulmonary outflow tract. Right chest tube. Lungs and pleura: Right upper lung opacity is unchanged. No significant pneumothorax. Heart and mediastinum: Stable contours. Stable surgical changes. Additional findings: None. Signed: Kyara Marcus Verified Date/Time: 04/25/2022 10:12:13 Reading Location: [facility] Radiology Reading Room CBC (HEMOGRAM [...] CELLS (BEAKER) (test code = 413) POCT-GLUCOSE [id number] 08:19:29 Test Item Value Reference Range Interpretation Comments POC-GLUCOSE METER 120 mg/dL 70-110 H : TESTED A T [facility] 6720 (BEAKER) (test code [facility], = 1538) [address]: Tool Profiling Machine Set Up Operator/Techni juan ID = [id number] for Jim rizo (contract)Aaron Hematocrit-Stat [id number] 06:54:10 Test Item Value Reference Range Interpretation Comments Hematocrit (test code = 4544-3) 7.0 % 36.0-45.0 L Lab Interpretation (test code = Abnormal 47388-0) [facility] [id number] 06:54:10 Test Item Value Reference Range Interpretation Comments Hematocrit (test code = 4544-3) 7.0 % 36.0-45.0 L Lab Interpretation (test code = Abnormal 54016-7) [facility] [id number] 06:54:10 Test Item Value Reference Range Interpretation Comments HEMATOCRIT (BEAKER) (test code = 411) 7.0 % 36.0-45.0 L LACTIC ACID, [id number] 06:20:41 Test Item Value Reference Range Interpretation Comments LACTATE BLOOD VENOUS (2) (BEAKER) 0.68 mmol/L 0.50-2.20 (test code = 2872) Tool Profiling Machine Set Up Operator ID - THERESA MOperator ID - THERESA MPOCT-GLUCOSE [id number] 06:10:42 Test Item Value Reference Range Interpretation Comments POC-GLUCOSE METER 122 mg/dL 70-110 H : TESTED A T [facility] 6720 (BEAKER) (test code = ELSI Mason [facility], 1538) [address]: Tool Profiling Machine Set Up Operator/Techni juan ID = [id number] for Bubba marcus (contract)Janet POC ACTIVATED CLOTTING [id number] 05:51:42 Test Item Value Reference Range Interpretation Comments Activated Clotting Time 126 sec : 74 -137 seconds, (test code = 3184-9) Baselin e: TESTED AT [address], [facility] 30: Tool Profiling Machine Set Up Operator/Techni juan ID = [id number] for Le , Arnol [facility] ACTIVATED CLOTTING [id number] 05:51:42 Test Item Value Reference Range Interpretation Comments Activated Clotting Time 126 sec : 74 -137 seconds, (test code = 3184-9) Baselin e: TESTED AT [address], [facility] 30: Tool Profiling Machine Set Up Operator/Techni juan ID = [id number] for Le , Arnol [id number] 05:51:42 Test Item Value Reference Range Interpretation Comments ACTIVATED CLOTTING TIME 126 sec : 74 -137 seconds, (BEAKER) (test code = Baseli ne: TESTED AT 441) [address], [facility] 30: Tool Profiling Machine Set Up Operator/Techni juan ID = [id number] for Le , Arnol [id number] 05:51:42 Test Item Value Reference Range Interpretation Comments ACTIVATED CLOTTING TIME 590 sec : 74 -137 seconds, (BEAKER) (test code = Baseli ne: TESTED AT 441) [address], [facility] 30: Tool Profiling Machine Set Up Operator/Techni juan ID = [id number] for Le , Arnol [id number] 05:51:41 Test Item Value Reference Range Interpretation Comments ACTIVATED CLOTTING TIME 654 sec : 74 -137 seconds, (BEAKER) (test code = Baseli ne: TESTED AT 441) [address], [facility] 30: Tool Profiling Machine Set Up Operator/Techni juan ID = [id number] for Le , Arnol [id number] 05:51:41 Test Item Value Reference Range Interpretation Comments ACTIVATED CLOTTING TIME 590 sec : 74 -137 seconds, (BEAKER) (test code = Baseli ne: TESTED AT 441) [address], [facility] 30: Tool Profiling Machine Set Up Operator/Techni juan ID = [id number] for Le , Arnol [id number] 05:51:06 Test Item Value Reference Range Interpretation Comments ACTIVATED CLOTTING TIME 115 sec : 74 -137 seconds, (BEAKER) (test code = Baseli ne: TESTED AT 441) [facility] [address] [place] [address], 770 30: Tool Profiling Machine Set Up Operator/Techni juan ID = [id number] for Arnol Fountain [id number] 05:51:06 Test Item Value Reference Range Interpretation Comments ACTIVATED CLOTTING TIME 839 sec : 74 -137 seconds, (BEAKER) (test code = Cisco ne: TESTED AT 441) [address], 770 30: Tool Profiling Machine Set Up Operator/Techni juan ID = [id number] for Le Arnol [id number] 05:51:05 Test Item Value Reference Range Interpretation Comments ACTIVATED CLOTTING TIME 654 sec : 74 -137 seconds, (BEAKER) (test code = Cisco ne: TESTED AT 441) [address], [facility] 30: Tool Profiling Machine Set Up Operator/Techni juan ID = [id number] for Efraín Fountainan [id number] 04:43:22 Test Item Value Reference Range Interpretation Comments PARTIAL THROMBOPLASTIN TIME 33.3 seconds 22.5-36.0 (BEAKER) (test code = 760) [id number] 04:43:20 Test Item Value Reference Range Interpretation Comments FIBRINOGEN LEVEL (BEAKER) (test 304 mg/dl 225-434 code = 658) BLOOD GAS, [id number] 04:42:49 Test Item Value Reference Range Interpretation [...] (BEAKER) (test code = 1819) 40.0 PROTHROMBIN TIME/[id number] 04:42:42 Test Item Value Reference Range Interpretation Comments PROTIME (BEAKER) 17.0 seconds 11.9-14.2 H (test code = 759) INR (BEAKER) (test 1.41 See_Comment [Automat ed message] code = 370) The system CritiSense generated this result transmitted ref erence range: <=5.90. The reference range was not used to int erpret this result as normal/abnormal . RECOMMENDED COUMADIN/WARFARIN INR THERAPY RANGESSTANDARD DOSE: 2.0 - 3.0 Includes: PROPHYLAXIS for venous thrombosis, systemic embolization; TREATMENT for venous thrombosis and/or pulmonary embolus.HIGH RISK: Target INR is 2.5-3.5 for patients with mechanical heart valves.HEPATIC FUNCTION [id number] 04:23:33 Test Item Value Reference Range Interpretation [...] (test code = 13 U/L 6-55 347) Tool Profiling Machine Set Up Operator ID - THERESA MCALCIUM, [id number] 04:18:14 Test Item Value Reference Range Interpretation Comments CALCIUM IONIZED (BEAKER) (test 1.21 mmol/L 1.12-1.27 code = 698) PH, BLOOD (BEAKER) (test code = 7.34 1810) [id number] 03:50:20 Test Item Value Reference Range Interpretation Comments PHOSPHORUS (BEAKER) (test code = 4.0 mg/dL 2.3-4.7 604) Tool Profiling Machine Set Up Operator ID - THERESA MBASIC METABOLIC [id number] 03:50:19 Test Item Value Reference Range Interpretation [...] S NOT APPLICABLE FOR DIALYSIS PATIEN TS. Tool Profiling Machine Set Up Operator ID - THERESA [id number] 03:50:19 Test Item Value Reference Range Interpretation Comments MAGNESIUM (BEAKER) (test code = 1.9 mg/dL 1.6-2.6 627) Tool Profiling Machine Set Up Operator ID - THERESA MCBC (HEMOGRAM ONLY)2022-04-25 03:25:24 Test Item Value [...] WBC 0-0 (test code = 413) POCT-GLUCOSE [id number] 02:22:03 Test Item Value Reference Range Interpretation Comments POC-GLUCOSE METER 110 mg/dL 70-110 : TESTED A T [facility] 6720 (BEAKER) (test code = ELSI Mason [place], 1538) [address]: Tool Profiling Machine Set Up Operator/Techni juan ID = [id number] for Bubba marcus (contract)Janet POCT-GLUCOSE [id number] 00:03:44 Test Item Value Reference Range Interpretation Comments POC-GLUCOSE METER 139 mg/dL 70-110 H : TESTED A T [facility] 6720 (BEAKER) (test code = ELSI Mason [place], 1538) [address]: Tool Profiling Machine Set Up Operator/Techni juan ID = [id number] for BULLARDKEVYN GLUCOSE-STAT [id number] 21:29:34 Test Item Value Reference Range Interpretation Comments GLUCOSE RANDOM (BEAKER) (test code 155 mg/dL 70-110 H = 652) HGB/HCT (H&H) - STAT [id number] 21:29:34 Test Item Value Reference Range Interpretation Comments HEMOGLOBIN (BEAKER) (test code = 8.9 GM/DL 12.0-15.0 L 410) HEMATOCRIT (BEAKER) (test code = 26.0 % 36.0-45.0 L 411) BLOOD GAS, [id number] 21:29:33 Test Item Value Reference Range Interpretation Comments PH ARTERIAL (BEAKER) (test code = 7.39 7.35-7.45 383) PCO2 ARTERIAL (BEAKER) (test code 37 mm Hg 35-45 = 384) PO2 ARTERIAL (BEAKER) (test code 100 mm Hg 80-90 H = 385) O2 SATURATION ARTERIAL (BEAKER) 97.5 % 96.0-97.0 H (test code = 386) HCO3 ARTERIAL (BEAKER) (test code 22 mmol/L -29 = 388) BASE EXCESS ARTERIAL (BEAKER) -2.7 mmol/L -2.0-3.0 L (test code = 387) PATIENT TEMPERATURE (BEAKER) 37.0 (test code = 1818) SODIUM NA-STAT [id number] 21:28:36 Test Item Value Reference Range Interpretation Comments SODIUM (BEAKER) (test code = 381) 139 meq/L 136-145 POTASSIUM-STAT [id number] 21:28:36 Test Item Value Reference Range Interpretation Comments POTASSIUM (BEAKER) (test code = 3.9 meq/L 3.6-5.5 379) [id number] 20:35:33 Test Item Value Reference Range Interpretation Comments MAGNESIUM (BEAKER) 2.1 mg/dL 1.6-2.6 Specimen slightly (test code = 627) hemolyzed Tool Profiling Machine Set Up Operator ID - DBBASIC METABOLIC [id number] 20:35:32 Test Item Value Reference Range Interpretation [...] S NOT APPLICABLE FOR DIALYSIS PATIEN TS. Tool Profiling Machine Set Up Operator ID - DBSpecimen slightly ictericLACTIC ACID, [id number] 20:31:26 Test Item Value Reference Range Interpretation Comments LACTATE BLOOD ARTERIAL (2) 1.2 mmol/L 0.5-2.2 (BEAKER) (test code = 2874) Tool Profiling Machine Set Up Operator ID - DBSpecimen slightly ictericGLUCOSE-STAT [id number] 20:09:05 Test Item Value Reference Range Interpretation Comments GLUCOSE RANDOM (BEAKER) (test code 147 mg/dL 70-110 H = 652) HGB/HCT (H&H) - STAT [id number] 20:09:05 Test Item Value Reference Range Interpretation Comments HEMOGLOBIN (BEAKER) (test code = 9.5 GM/DL 12.0-15.0 L 410) HEMATOCRIT (BEAKER) (test code = 28.0 % 36.0-45.0 L 411) BLOOD GAS, [id number] 20:09:04 Test Item Value Reference Range Interpretation [...] (BEAKER) 37.0 (test code = 1818) CALCIUM, [id number] 20:08:43 Test Item Value Reference Range Interpretation Comments CALCIUM IONIZED (BEAKER) (test 1.26 mmol/L 1.12-1.27 code = 698) PH, BLOOD (BEAKER) (test code = 7.43 1810) POTASSIUM-STAT [id number] 20:08:22 Test Item Value Reference Range Interpretation Comments POTASSIUM (BEAKER) (test code = 4.0 meq/L 3.6-5.5 379) SODIUM NA-STAT [id number] 20:08:21 Test Item Value Reference Range Interpretation [...] CONCENTRATION Decreased (CELLAVISION)(BEAKER) (test code = 3438) Tool Profiling Machine Set Up Operator ID - Fur Joiner (created by the system)User comments: Slide comments:CBC W/PLT COUNT & AUTO [id number] 18:18:06 Test Item Value Reference Range Interpretation [...] 0-1 PERCENT (BEAKER) (test code = 2801) HGB/HCT (H&H) - STAT [id number] 18:15:30 Test Item Value Reference Range Interpretation Comments HEMOGLOBIN (BEAKER) (test code = 9.5 GM/DL 12.0-15.0 L 410) HEMATOCRIT (BEAKER) (test code = 28.0 % 36.0-45.0 L 411) BLOOD GAS, [id number] 18:15:29 Test Item Value Reference Range Interpretation [...] (BEAKER) (test code = 1819) 40.0 GLUCOSE-STAT [id number] 18:15:29 Test Item Value Reference Range Interpretation Comments GLUCOSE RANDOM (BEAKER) (test code 167 mg/dL 70-110 H = 652) SODIUM NA-STAT [id number] 18:15:23 Test Item Value Reference Range Interpretation Comments SODIUM (BEAKER) (test code = 381) 138 meq/L 136-145 POTASSIUM-STAT [id number] 18:15:23 Test Item Value Reference Range Interpretation Comments POTASSIUM (BEAKER) (test code = 3.6 meq/L 3.6-5.5 379) RAD, CHEST, 1 VIEW, NON [id number] 16:48:00Reason for exam:->s/p valve surgeryShould this be performed at the bedside?->Yes [facility] 1935 Sex: FFINAL [...] terminating below the left hemidiaphragm. Right IJ Watson-Albert catheter terminates in the distal right pulmonary artery. Right-sided chest tube is present. Minimal subcutaneous air is present within th e right lower lateral chest wall. IMPRESSION: Postoperative changes with supporting lines and tubes in adequate position. Scattered right lung atelectasis is present. Signed: Tra Akbar MDReport Verified Date/Time: 04/24/2022 16:48:45 Reading Location: [facility] Radiology Reading Room [facility] PAN[facility] 2022-04-24 16:28:42 Test Item Value [...] S NOT APPLICABLE FOR DIALYSIS PATIEN TS. Tool Profiling Machine Set Up Operator ID - PIPAVAN [id number] 16:20:36 Test Item Value Reference Range Interpretation Comments MAGNESIUM (BEAKER) 1.6 mg/dL 1.6-2.6 Specimen slightly (test code = 627) hemolyzed Tool Profiling Machine Set Up Operator ID - JONI [id number] 16:20:36 Test Item Value Reference Range Interpretation Comments PHOSPHORUS (BEAKER) 3.5 mg/dL 2.3-4.7 Specimen slightly (test code = 604) hemolyzed Tool Profiling Machine Set Up Operator ID - JONI LLACTIC ACID, [id number] 16:12:11 Test Item Value Reference Range Interpretation Comments LACTATE BLOOD 1.3 mmol/L 0.5-2.2 Specimen sligh tly ARTERIAL (2) (BEAKER) hemoly zed (test code = 2874) Tool Profiling Machine Set Up Operator ID - JONI [id number] 16:08:12 Test Item Value Reference Range Interpretation Comments PARTIAL THROMBOPLASTIN TIME 33.9 seconds 22.5-36.0 (BEAKER) (test code = 760) [id number] 16:07:51 Test Item Value Reference Range Interpretation Comments FIBRINOGEN LEVEL (BEAKER) (test 426 mg/dl 225-434 code = 658) PROTHROMBIN TIME/[id number] 16:07:30 Test Item Value Reference Range Interpretation Comments PROTIME (BEAKER) 17.1 seconds 11.9-14.2 H (test code = 759) INR (BEAKER) (test 1.42 See_Comment [Automat ed message] code = 370) The system CritiSense generated this result transmitted ref erence range: <=5.90. The reference range was not used to int erpret this result as normal/abnormal . RECOMMENDED COUMADIN/WARFARIN INR THERAPY RANGESSTANDARD DOSE: 2.0 - 3.0 Includes: PROPHYLAXIS for venous thrombosis, systemic embolization; TREATMENT for venous thrombosis and/or pulmonary embolus.HIGH RISK: Target INR is 2.5-3.5 for patients with mechanical heart valves.CALCIUM, [id number] 16:00:22 Test Item Value Reference Range Interpretation Comments CALCIUM IONIZED (BEAKER) (test 1.29 mmol/L 1.12-1.27 H code = 698) PH, BLOOD (BEAKER) (test code = 7.46 1810) BLOOD GAS, [id number] 16:00:22 Test Item Value Reference Range Interpretation [...] (test code = 1819) 60.0 OXYGEN SATURATION, [id number] 15:59:48 Test Item Value Reference Range Interpretation [...] WBC 0-0 (BEAKER) (test code = 413) [id number] 14:24:28 Test Item Value Reference Range Interpretation Comments PARTIAL THROMBOPLASTIN TIME 37.1 seconds 22.5-36.0 H (BEAKER) (test code = 760) [id number] 14:24:07 Test Item Value Reference Range Interpretation Comments FIBRINOGEN LEVEL (BEAKER) (test 290 mg/dl 225-434 code = 658) PROTHROMBIN TIME/[id number] 14:23:45 Test Item Value Reference Range Interpretation Comments PROTIME (BEAKER) 19.2 seconds 11.9-14.2 H (test code = 759) INR (BEAKER) (test 1.64 See_Comment [Automat ed message] code = 370) The system CritiSense generated this result transmitted ref erence range: <=5.90. The reference range was not used to int erpret this result as normal/abnormal . RECOMMENDED COUMADIN/WARFARIN INR THERAPY RANGESSTANDARD DOSE: 2.0 - 3.0 Includes: PROPHYLAXIS for venous thrombosis, systemic embolization; TREATMENT for venous thrombosis and/or pulmonary embolus.HIGH RISK: Target INR is 2.5-3.5 for patients with mechanical heart valves.Platelet [id number] 14:19:25 Test Item Value Reference Range Interpretation Comments Platelets (test code 139 See_Comment L [Autom ated = 777-3) message] The system which generated this result transmit minda reference range : 150 - 450 K/CU MM. The reference range was not u sed to interpret th is result as normal/abnormal . MISHA (test code = MISHA) Tool Profiling Machine Set Up Operator ID - [id number] Lab Interpretation Abnormal (test code = 98744-3) [facility] [id number] 14:19:25 Test Item Value Reference Range Interpretation Comments Platelets (test code 139 See_Comment L [Autom ated = 777-3) message] The system which generated this result transmit minda reference range : 150 - 450 K/CU MM. The reference range was not u sed to interpret th is result as normal/abnormal . MISHA (test code = MISHA) Tool Profiling Machine Set Up Operator ID - [id number] Lab Interpretation Abnormal (test code = 55797-5) [facility] [id number] 14:19:25 Test Item Value Reference Range Interpretation Comments PLATELET COUNT (BEAKER) (test 139 K/CU MM 150-450 L code = 756) Tool Profiling Machine Set Up Operator ID - [id number], [id number] 14:11:38 Test Item Value Reference Range Interpretation Comments CALCIUM IONIZED (BEAKER) (test 1.01 mmol/L 1.12-1.27 L code = 698) PH, BLOOD (BEAKER) (test code = 7.45 1810) POTASSIUM-STAT [id number] 14:11:06 Test Item Value Reference Range Interpretation Comments POTASSIUM (BEAKER) (test code = 3.1 meq/L 3.6-5.5 L 379) GLUCOSE-STAT [id number] 14:11:06 Test Item Value Reference Range Interpretation Comments GLUCOSE RANDOM (BEAKER) (test code 150 mg/dL 70-110 H = 652) HGB/HCT (H&H) - STAT [id number] 14:11:06 Test Item Value Reference Range Interpretation Comments HEMOGLOBIN (BEAKER) (test code = 10.8 GM/DL 12.0-15.0 L 410) HEMATOCRIT (BEAKER) (test code = 32.0 % 36.0-45.0 L 411) BLOOD GAS, [id number] 14:11:05 Test Item Value Reference Range Interpretation [...] (test code = 1819) 97.0 SODIUM NA-STAT [id number] 14:10:43 Test Item Value Reference Range Interpretation Comments SODIUM (BEAKER) (test code = 381) 136 meq/L 136-145 [id number] 13:59:03 Test Item Value Reference Range Interpretation Comments FIBRINOGEN LEVEL (BEAKER) (test 211 mg/dl 225-434 L code = 658) PROTHROMBIN TIME/[id number] 13:58:41 Test Item Value Reference Range Interpretation Comments PROTIME (BEAKER) 22.7 seconds 11.9-14.2 H (test code = 759) INR (BEAKER) (test 2.03 See_Comment [Automat ed message] code = 370) The system CritiSense generated this result transmitted ref erence range: <=5.90. The reference range was not used to int erpret this result as normal/abnormal . RECOMMENDED COUMADIN/WARFARIN INR THERAPY RANGESSTANDARD DOSE: 2.0 - 3.0 Includes: PROPHYLAXIS for venous thrombosis, systemic embolization; TREATMENT for venous thrombosis and/or pulmonary embolus.HIGH RISK: Target INR is 2.5-3.5 for patients with mechanical heart valves.[id number] 13:34:36 Test Item Value Reference Range Interpretation Comments PARTIAL THROMBOPLASTIN TIME 38.6 seconds 22.5-36.0 H (BEAKER) (test code = 760) [id number] 13:34:35 Test Item Value Reference Range Interpretation Comments FIBRINOGEN LEVEL (BEAKER) (test 185 mg/dl 225-434 L code = 658) PROTHROMBIN TIME/[id number] 13:33:54 Test Item Value Reference Range Interpretation Comments PROTIME (BEAKER) 26.1 seconds 11.9-14.2 H (test code = 759) INR (BEAKER) (test 2.42 See_Comment [Automat ed message] code = 370) The system CritiSense generated this result transmitted ref erence range: <=5.90. The reference range was not used to int erpret this result as normal/abnormal . RECOMMENDED COUMADIN/WARFARIN INR THERAPY RANGESSTANDARD DOSE: 2.0 - 3.0 Includes: PROPHYLAXIS for venous thrombosis, systemic embolization; TREATMENT for venous thrombosis and/or pulmonary embolus.HIGH RISK: Target INR is 2.5-3.5 for patients with mechanical heart valves.CALCIUM, [id number] 13:23:39 Test Item Value Reference Range Interpretation Comments CALCIUM IONIZED (BEAKER) (test 1.11 mmol/L 1.12-1.27 L code = 698) PH, BLOOD (BEAKER) (test code = 7.55 1810) HGB/HCT (H&H) - STAT [id number] 13:23:38 Test Item Value Reference Range Interpretation Comments HEMOGLOBIN (BEAKER) (test code = 8.6 GM/DL 12.0-15.0 L 410) HEMATOCRIT (BEAKER) (test code = 25.0 % 36.0-45.0 L 411) POTASSIUM-STAT [id number] 13:23:37 Test Item Value Reference Range Interpretation Comments POTASSIUM (BEAKER) (test code = 3.4 meq/L 3.6-5.5 L 379) GLUCOSE-STAT [id number] 13:23:37 Test Item Value Reference Range Interpretation Comments GLUCOSE RANDOM (BEAKER) (test code 159 mg/dL 70-110 H = 652) BLOOD GAS, [id number] 13:23:36 Test Item Value Reference Range Interpretation [...] (test code = 1819) 97.0 SODIUM NA-STAT [id number] 13:23:14 Test Item Value Reference Range Interpretation Comments SODIUM (BEAKER) (test code = 381) 137 meq/L 136-145 HGB/HCT (H&H) - STAT [id number] 12:07:22 Test Item Value Reference Range Interpretation Comments HEMOGLOBIN (BEAKER) (test code = 8.5 GM/DL 12.0-15.0 L 410) HEMATOCRIT (BEAKER) (test code = 25.0 % 36.0-45.0 L 411) BLOOD GAS, [id number] 12:07:21 Test Item Value Reference Range Interpretation [...] (BEAKER) (test code = 1819) 75.0 GLUCOSE-STAT [id number] 12:07:21 Test Item Value Reference Range Interpretation Comments GLUCOSE RANDOM (BEAKER) (test code 184 mg/dL 70-110 H = 652) POTASSIUM-STAT [id number] 12:06:48 Test Item Value Reference Range Interpretation Comments POTASSIUM (BEAKER) (test code = 3.7 meq/L 3.6-5.5 379) SODIUM NA-STAT [id number] 12:06:47 Test Item Value Reference Range Interpretation Comments SODIUM (BEAKER) (test code = 381) 135 meq/L 136-145 L PLATELET [id number] 11:55:07 Test Item Value Reference Range Interpretation Comments PLATELET COUNT 84 K/CU MM 150-450 L No clot, Pt i s in CV (BEAKER) (test code = OR. 756) Tool Profiling Machine Set Up Operator ID - [id number]-STAT [id number] 11:38:00 Test Item Value Reference Range Interpretation Comments GLUCOSE RANDOM (BEAKER) (test code 215 mg/dL 70-110 H = 652) HGB/HCT (H&H) - STAT [id number] 11:38:00 Test Item Value Reference Range Interpretation Comments HEMOGLOBIN (BEAKER) (test code = 8.5 GM/DL 12.0-15.0 L 410) HEMATOCRIT (BEAKER) (test code = 25.0 % 36.0-45.0 L 411) BLOOD GAS, [id number] 11:37:59 Test Item Value Reference Range Interpretation [...] (test code = 1819) 75.0 SODIUM NA-STAT [id number] 11:37:59 Test Item Value Reference Range Interpretation Comments SODIUM (BEAKER) (test code = 381) 133 meq/L 136-145 L POTASSIUM-STAT [id number] 11:37:43 Test Item Value Reference Range Interpretation Comments POTASSIUM (BEAKER) (test code = 4.4 meq/L 3.6-5.5 379) SODIUM NA-STAT [id number] 11:09:16 Test Item Value Reference Range Interpretation Comments SODIUM (BEAKER) (test code = 381) 134 meq/L 136-145 L GLUCOSE-STAT [id number] 11:09:16 Test Item Value Reference Range Interpretation Comments GLUCOSE RANDOM (BEAKER) (test code 226 mg/dL 70-110 H = 652) HGB/HCT (H&H) - STAT [id number] 11:09:16 Test Item Value Reference Range Interpretation Comments HEMOGLOBIN (BEAKER) (test code = 9.7 GM/DL 12.0-15.0 L 410) HEMATOCRIT (BEAKER) (test code = 29.0 % 36.0-45.0 L 411) BLOOD GAS, [id number] 11:09:15 Test Item Value Reference Range Interpretation [...] (BEAKER) (test code = 1819) 65.0 POTASSIUM-STAT [id number] 11:08:50 Test Item Value Reference Range Interpretation Comments POTASSIUM (BEAKER) (test code = 4.6 meq/L 3.6-5.5 379) HGB/HCT (H&H) - STAT [id number] 10:59:00 Test Item Value Reference Range Interpretation Comments HEMOGLOBIN (BEAKER) (test code = 7.6 GM/DL 12.0-15.0 L 410) HEMATOCRIT (BEAKER) (test code = 22.0 % 36.0-45.0 L 411) BLOOD GAS, [id number] 10:58:59 Test Item Value Reference Range Interpretation [...] (BEAKER) (test code = 1819) 65.0 GLUCOSE-STAT [id number] 10:58:59 Test Item Value Reference Range Interpretation Comments GLUCOSE RANDOM (BEAKER) (test code 206 mg/dL 70-110 H = 652) POTASSIUM-STAT [id number] 10:55:29 Test Item Value Reference Range Interpretation Comments POTASSIUM (BEAKER) (test code = 4.1 meq/L 3.6-5.5 379) SODIUM NA-STAT [id number] 10:55:28 Test Item Value Reference Range Interpretation Comments SODIUM (BEAKER) (test code = 381) 137 meq/L 136-145 BLOOD GAS, [id number] 10:27:14 Test Item Value Reference Range Interpretation [...] (BEAKER) (test code = 1819) 70.0 GLUCOSE-STAT [id number] 10:27:14 Test Item Value Reference Range Interpretation Comments GLUCOSE RANDOM (BEAKER) (test code 189 mg/dL 70-110 H = 652) HGB/HCT (H&H) - STAT [id number] 10:27:14 Test Item Value Reference Range Interpretation Comments HEMOGLOBIN (BEAKER) (test code = 7.9 GM/DL 12.0-15.0 L 410) HEMATOCRIT (BEAKER) (test code = 23.0 % 36.0-45.0 L 411) SODIUM NA-STAT [id number] 10:26:53 Test Item Value Reference Range Interpretation Comments SODIUM (BEAKER) (test code = 381) 135 meq/L 136-145 L POTASSIUM-STAT [id number] 10:26:53 Test Item Value Reference Range Interpretation Comments POTASSIUM (BEAKER) (test code = 3.5 meq/L 3.6-5.5 L 379) HGB/HCT (H&H) - STAT [id number] 08:10:46 Test Item Value Reference Range Interpretation Comments HEMOGLOBIN (BEAKER) (test code = 11.1 GM/DL 12.0-15.0 L 410) HEMATOCRIT (BEAKER) (test code = 33.0 % 36.0-45.0 L 411) POTASSIUM-STAT [id number] 08:10:41 Test Item Value Reference Range Interpretation Comments POTASSIUM (BEAKER) (test code = 3.4 meq/L 3.6-5.5 L 379) BLOOD GAS, [id number] 08:10:40 Test Item Value Reference Range Interpretation [...] (test code = 1819) 95.0 SODIUM NA-STAT [id number] 08:10:40 Test Item Value Reference Range Interpretation Comments SODIUM (BEAKER) (test code = 381) 134 meq/L 136-145 L CALCIUM, [id number] 08:10:34 Test Item Value Reference Range Interpretation Comments CALCIUM IONIZED (BEAKER) (test 1.13 mmol/L 1.12-1.27 code = 698) PH, BLOOD (BEAKER) (test code = 7.47 1810) GLUCOSE-STAT [id number] 08:10:34 Test Item Value Reference Range Interpretation Comments GLUCOSE RANDOM (BEAKER) (test code 104 mg/dL 70-110 = 652) SARS-CoV2/RT-PCR (Asymptomatic ONLY)2022-04-24 04:46:57 Test Item Value Reference Range Interpretation Comments SARS-COV2/RT-PCR Negative Not Detected, (test code = Negative, See 08973-5) external report for linked test SARS-COV-2 [facility] PERFORMING LAB (test code = 85165-6) MISHA (test code = Negative result for [...] of the Act. Fact Sheet for Healthcare Providers:https://www.Softfront idel.com/sites/default/f stanley/product/documents/F act_Sheet_HC_Providers_L ymv_VYJC-XwA-8.pdf Fact Sheet for Healthcare Patients:https://www.usama del.com/sites/default/fi les/product/documents/Fa ct_Sheet_Patients_Lyra_S ARS-CoV-2.pdf Performing Laboratory:[facility] [place] [address] [facility]Asymptomatic ONLY)2022-04-24 04:46:57 Test Item Value Reference Range Interpretation Comments SARS-COV2/RT-PCR Negative Not Detected, (test code = Negative, See 57850-5) external report for linked test SARS-COV-2 [facility] PERFORMING LAB (test code = 50857-8) MISHA (test code = Negative result for [...] of the Act. Fact Sheet for Healthcare Providers:https://www.Softfront idel.[employer]/sites/default/f stanley/product/documents/F act_Sheet_HC_Providers_L unf_LYLU-LhH-7.pdf Fact Sheet for Healthcare Patients:https://www.Wuzzuf del.[employer]/sites/default/fi les/product/documents/Fa ct_Sheet_Patients_Lyra_S ARS-CoV-2.pdf Performing Laboratory:[facility] [place] [address] [facility] ([facility])2022-04-24 04:46:57 Test Item Value Reference Range Interpretation Comments SARS-COV2/RT-PCR (test Negative Not Detected, Negative, code = 7518059) See external report for linked test SARS-COV-2 PERFORMING LAB [facility] MICHELLE (test code = 9393857) Negative result for this test determines that [...] of the Act.Fact Sheet for Healthcare Prov iders:https://www.AbraResto.[employer]/sites/default/files/product/documents/Fact_Sheet_HC _Bwpwplkda_Zcff_QHJL-WfQ-3.pdfFact Sheet for Healthcare Patients:https://www.quidel.com/sites/default/files/product/docume nts/Ojld_Ynbty_Bipeqzya_Nkpp_XSQV-PxR-8.pdfPerforming Laboratory:[facility], [place] [id number] 18:53:19 Test Item Value Reference Range Interpretation Comments PARTIAL THROMBOPLASTIN TIME 35.9 seconds 22.5-36.0 (BEAKER) (test code = 760) PROTHROMBIN TIME/[id number] 18:52:17 Test Item Value Reference Range Interpretation Comments PROTIME (BEAKER) 14.7 seconds 11.9-14.2 H (test code = 759) INR (BEAKER) (test 1.17 See_Comment [Automat ed message] code = 370) The system CritiSense generated this result transmitted ref erence range: <=5.90. The reference range was not used to int erpret this result as normal/abnormal . RECOMMENDED COUMADIN/WARFARIN INR THERAPY RANGESSTANDARD DOSE: 2.0 - 3.0 Includes: PROPHYLAXIS for venous thrombosis, systemic embolization; TREATMENT for venous thrombosis and/or pulmonary embolus.HIGH RISK: Target INR is 2.5-3.5 for patients with mechanical heart valves.CBC W/PLT COUNT & AUTO [id number] 18:44:32 Test Item Value Reference Range Interpretation [...] PERCENT (BEAKER) (test code = 2801) SARS-COV2/RT-PCR ([facility])2022-04-22 21:00:47 Test Item Value Reference Range Interpretation Comments SARS-COV2/RT-PCR (test code = Negative Negative 4713555) Negative result for this test determines that [...] 564(g) of the Act.Testing was performed using [employer] SARS-CoV-2 assay.Fact Sheet for Healthcare Providers:https://www.[employer]riton [employer].youngblood/adelfo/RT SARS-CoV-2 HCP Fact Sheet 51- 793814.pdfFact Sheet for Healthcare Patients:https://www.Adnexus/adelfo/RT SARS-CoV-2 Patient Fact Sheet EN 51-688306L8.pdfB-TYPE NATRIURETIC FACTOR (BNP) 2022-04-22 12:07:58 Test Item Value Reference Range Interpretation Comments B-TYPE NATRIURETIC PEPTIDE (BEAKER) 600 pg/mL 0-100 H (test code = 700) Tool Profiling Machine Set Up Operator ID - PIAYA LCOMPREHENSIVE METABOLIC [id number] 12:03:13 Test Item Value Reference Range Interpretation [...] S NOT APPLICABLE FOR DIALYSIS PATIEN TS. Tool Profiling Machine Set Up Operator ID - PIAYA LPROTHROMBIN TIME/[id number] 11:43:06 Test Item Value Reference Range Interpretation Comments PROTIME (BEAKER) 15.1 seconds 11.9-14.2 H (test code = 759) INR (BEAKER) (test 1.21 See_Comment [Automat ed message] code = 370) The system CritiSense generated this result transmitted ref erence range: <=5.90. The reference range was not used to int erpret this result as normal/abnormal . RECOMMENDED COUMADIN/WARFARIN INR THERAPY RANGESSTANDARD DOSE: 2.0 - 3.0 Includes: PROPHYLAXIS for venous thrombosis, systemic embolization; TREATMENT for venous thrombosis and/or pulmonary embolus.HIGH RISK: Target INR is 2.5-3.5 for patients with mechanical heart valves.CBC W/PLT COUNT & AUTO [id number] 11:36:56 Test Item Value Reference Range Interpretation [...] (BEAKER) (test code = 2801) CT, CTA [id number] 15:27:00Unlisted Reason for Exam - Click Yes and Enter Reason Below->YesUnlisted Reason for Exam->Pre op planning, aortic anatomy and cannulation site identification, severe MR, severe TR [facility] : 1935 Sex: FAddendum BeginsREPORT STATUS:A Addendum: I agree with the previously described non vascular findings. Sigmoid diverticulosis, without evidence for diverticulitis. Signed: Jose Ramon Soares MDReport Verified Date/Time: 04/18/2022 15:27:52 Reading Location: [facility] Diagnostic Imaging Reading Room - [place] [address].12Addendum EndsFINAL REPORT CT angiography of the thoracoabdominal aorta and pelvic arteries, 16-Apr-22 INDICATION: This is a 86 year old female with with severe mitral regurgitation tricuspid regurgitation, presents for preoperative assessment, for aortic anatomyand cannulation site. TECHNIQUE: Spiral acquisition before and during intravenous contrast administra tion using a Metaconomy multidetector CT scanner. Images were obtained before [...] An addendum will be dictated by the Saw Edge Fuser Circular Radiologist regarding the nonvascular findings. THE REPORT WILL ONLY BE CONSIDER ED COMPLETE AFTER THE ADDENDUM HAS BEEN DICTATED. Signed: Fabrizio Cardona Verified Date/Time: 04/17/2022 16:14:11 CT, CTA, [id number] 15:27:00Unlisted Reason for Exam - Click Yes and Enter Reason Below->YesUnlisted Reason for Exam->Pre op planning, aortic anatomy and cannulation site identification, severe MR, severe [facility] : 1935 Sex: FAddendum BeginsREPORT STATUS:A Addendum: I agree with the previously described non vascular findings. Sigmoid diverticulosis, without evidence for diverticulitis. Signed: Jose Ramon Soaresort Verified Date/Time: 04/18/2022 15:27:52 Reading Location: [facility] Diagnostic Imaging Reading Room - [facility] 1.310.12Addendum EndsFINAL REPORT CT angiography of the thoracoabdominal aorta and pelvic arteries, 16-Apr-22 INDICATION: This is a 86 year old female with with severe mitral regurgitation tricuspid regurgitation, presents for preoperative assessment, for aortic anatomyand cannulation site. TECHNIQUE: Spiral acquisition before and during intravenous contrast administra tion using a Metaconomy multidetector CT scanner. Images were obtained before [...] An addendum will be dictated by the Saw Edge Fuser Circular Radiologist regarding the nonvascular findings. THE REPORT WILL ONLY BE CONSIDER ED COMPLETE AFTER THE ADDENDUM HAS BEEN DICTATED. Signed: Fabrizio Cardonaeport Verified Date/Time: 04/17/2022 16:14:11 Q-[id number] 10:19:24 Test Item Value Reference Range Interpretation Comments POC-Creatinine (test 1.0 mg/dL 0.6-1.3 : TESTE D AT [facility] 1317 code = 20400-4) [place] [address]248: Tool Profiling Machine Set Up Operator/Techni juan ID = [id number] for Sandip -Sabase, Rebecca POC-EGFR (test code 53 mL/min/1.73M2 = 71998-1) [facility]-[id number] 10:19:24 Test Item Value Reference Range Interpretation Comments POC-Creatinine (test 1.0 mg/dL 0.6-1.3 : TESTE D AT [facility] 1317 code = 22762-7) [place] [address]: Tool Profiling Machine Set Up Operator/Techni juan ID = [id number] for Sandip -Hue, Rebecca POC-EGFR (test code 53 mL/min/1.73M2 = 60635-0) [facility]-[id number] 10:19:24 Test Item Value Reference Range Interpretation Comments POC-CREATININE 1.0 mg/dL 0.6-1.3 : TESTED AT [facility] 1317 (BEAKER) (test [facility], code = 1859) [place] 528068: Tool Profiling Machine Set Up Operator/Techni juan ID = [id number] for Snadip-Hue, Rebecca POC-EGFR 53 mL/min/1.73M2 (BEAKER) (test code = 1860) - XR CHEST 2 [id number] 00:00:00 [facility] : 1935 Sex: FFAX: Chace Sanz MD [phone] [place]: St: REG FAX: Christel Alvarez Name: SCARLETT SMILEY [facility] : 1935 Age/S: 86/F [address] [place] [address] Unit #: [id number] Loc: [place], [place] [address]Fgaz: 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 Views: 2 views. COMPARISON: No relevant prior studies available. FINDINGS: Lungs: No focal consolidations. Pleural spaces: Unremarkable. No pleural effusion. No pneumothorax. Heart/Mediastinum: Unremarkable. Vasculature: Aortic atheroscleroticcalcifications. Bones/joints: Diffuse osseous demineralization. IMPRESSION: No acute cardiopulmonaryabnormalities. at 0739 Reported and signed by: Vazquez Amaro M.D. CC: Chace Nava MD; Christel Alvarez NP Technologist:RT Taylor(Marlon) Trnscrd Date/Time/By: 04/02/2022 (0739) : By: [email or web address] Orig Print D/T: S: 04/02/2022 (0270) PAGE 1 Signed ReportCOVID 19 Asymptomatic IH [id number] 19:00:00 Test Item Value Reference Range Interpretation Comments COVID 19 Asymptomatic Negative Negative A nega tive result is IH AG (test code = presumpti ve and should COVNONPUIAG) be confirmedwit h an FDA authorized mole cular assay, if neces mylene forpatient edi byron.A positive result does not rule out co-inf [...] high or waivedcomplexit y tests. BASIC METABOLIC [id number] 16:31:00 Test Item Value Reference Range Interpretation [...] = 9.7 mg/dL 8.0-10.5 N CA) PROTHROMBIN [id number] 16:29:00 Test Item Value Reference Range Interpretation Comments PROTHROMBIN TIME 19.7 SECONDS 9.3-12.9 H PATIENT (test code = PTP) INTERNATIONAL NORMAL 1.8 0.8-1.2 H [facility] INR BY RATIO (test code = INDICATIO N Indication INR) INR1. Prophylax is of venous thrombos is 2.0 - 3.0 (orthoped ic surgery), Proph ylaxis of venous throm bosis [...] (to prevent recurrent infar ct). CBC W/AUTO [id number] 16:22:00 Test Item Value Reference Range Interpretation [...] = 0.00 x10 3/uL 0.0-0.1 N NRBC#) SARS-COV2/RT-PCR ([facility])2020-04-28 10:18:00 Test Item Value Reference Range Interpretation Comments SARS-COV2/RT-PCR (test code = Negative Not Detected, Negative 0926205) SARS-COV-2 PERFORMING LAB [facility] (test code = 8396369) Negative result for this test determines that [...] of the Act.Fact Sheet for Healthcare Prov iders:https://www.RIISnet/sites/default/files/product/documents/Fact_Sheet_HC _Igcobxaua_Nbmc_OZBU-MuA-8.pdfFact Sheet for Healthcare Patients:https://www.RIISnet/sites/default/files/product/docume nts/Jnuy_Cmowi_Wtsxumdw_Wbmp_EXNM-MsB-6.pdfPerforming Laboratory:[address] [place] [address]- MRI L-SPINE W/O CONT 2019-12-05 13:16:00 Patient Name: SCARLETT SMILEY Unit No: [id number] EXAMS: CPT CODE: [id number] MRI L-SPINE W/O CONT 22825 TECHNIQUE: Multiplanar, multisequence MRI examination performed of [...] L2/3: Discectomy and interbody graft. No significant foraminalor central canal stenosis. L3/4: Discectomy with interbody graft. The central canal is decompressed.No significant foraminal stenosis. L4/5: Grade 1 spondylolisthesis. The central canal is decompressed. Mild to moderate right foraminal stenosis. No significant left foraminal stenosis. L5/S1: Grade 1 spondylolisthesis. Broad disc bulge is present. Moderate central canal stenosis is noted as well asright lateral recess stenosis. There is mild to moderate left, mild right foraminal stenosis. IMPRESSION: Postoperative lumbar spine with multilevel spondylosis, greatest at L1-L2, where there is moderate central canal stenosis and marked disc degeneration. at 1316 Reported and signed by: Bartolo Brumfield M.D. [facility] NAME: SCARLETT SMILEY [address] [facility] PHYS: Lobo Villalba MD : 1935 AGE: 84 SEX: F [place] [address] LOC: Y.MRI PHONE #: [phone] EXAM DATE:12/02/2019 STATUS: DEP CLI FAX #: [phone] RAD #: D/C DT PAGE 1 Signed Report (CONTINUED) Patient Name: SCARLETT SMILEY Unit No: [id number] EXAMS: CPT CODE: [id number] MRI L-SPINE W/O CONT 48799 (Continued) CC: Richi Sanchez M.D. Technologist: AMRIK FORD, UMESH Transcribed D/ (1316) [facility]: SCARLETT SMILEYNISHA [address] [facility] PHYS: Lobo Villalba MD : 1935 AGE: 84 SEX: F [place] [address] LOC: Y.MRI PHONE #: [phone] EXAM DATE: 12/02/2019 STATUS: DEP CLI FAX #: [phone] RAD #: D/C DTPAGE 2 Signed Report Patient Name: SCARLETT SMILEY Unit No: [id number] EXAMS: CPT CODE: [id number] MRI L-SPINE W/O CONT 41344 (Continued) Orig Print D/T: S: 12/05/2019 (1320) [facility] NAME: SCARLETT SMILEY [address] [facility] PHYS: Lobo Villalba MD : 1935 AGE: 84 SEX: F [place], [place] [address] LOC: Y.MRI PHONE #: [phone] EXAM DATE: 12/02/2019 STATUS: DEP CLI FAX #: [phone] RAD #: D/C DT PAGE 3 Signed Report
[2022-09-26 20:10] LABS: Absolute Lymphocytes (CBC) 0.9 K/uL (0.7-4.9); Hematocrit 29.4 % (36.0-45.0); Lymphocytes % 14.2 % (15.3-44.8); MCV 101.1 fL (80-100); MPV 6.9 fL (7.6-11.3); RBC Red Blood Cell Count 2.91 M/uL (3.86-4.86)
[2022-09-26 20:26] LABS: Troponin High Sensitivity 17.4 pg/mL (<58.9)
--- NOTE | 2022-09-26 20:53 | ER ---
Nurse's Notes [facility] Name: Scarlett Garrett Age: 87 yrs Sex: Female : 1935 Arrival Date: 09/26/2022 Time: 19:17 Bed 6 Private MD: Diagnosis: Bradycardia, unspecified;Weakness Presentation: 09/26 19:17 Chief complaint: EMS states: Pt called reporting feeling weak and dizzy when standing. jb4 Her apple watch told her that her heart rate was below 40 for more than 10 minutes. Her b/p was 105/52 and heart rate has consistently been between 35-40. Given 300ml of LR via 20g in the LAC. Coronavirus screen: At this time, the client does not indicate any symptoms associated with coronavirus-19. Ebola Screen: No symptoms or risks identified at this time. Risk Assessment: Do you want to hurt yourself or someone else? Patient reports no desire to harm self or others. Onset of symptoms was September 26, 2022. Transition of care: patient was not received from another setting of care. 19:17 Method Of Arrival: EMS: [facility] jb4 19:17 Acuity: VANESA 3 jb4 20:05 Initial Sepsis Screen: Does the patient meet any 2 criteria? No. Patient's initial jb4 sepsis screen is negative. Does the patient have a suspected source of infection? No. Patient's initial sepsis screen is negative. Historical: - Allergies: 19:20 Cipro; jb4 19:20 Levaquin; jb4 - Home Meds: 19:20 Eliquis oral [Active]; jb4 - PMHx: 19:20 Arthritis; Atrial Fib; Depression; Hypertension; Hypothyroidism; Hypothyroidism; mitral jb4 valve; severe tricuspid valve regurgitation; - PSHx: 19:20 Valve replacement; jb4 - Immunization history:: Client reports receiving the 2nd dose of the Covid vaccine. - Social history:: Smoking status: Patient denies any tobacco usage or history of. Screenin:30 Abuse screen: Denies threats or abuse. Nutritional screening: No deficits noted. jb4 Tuberculosis screening: No symptoms or risk factors identified. Fall Risk IV access (20 points). Assessment: 19:20 General: Appears in no apparent distress. comfortable, Behavior is calm, cooperative, jb4 appropriate for age. Pain: Denies pain. Neuro: Level of Consciousness is awake, alert, obeys commands, Oriented to person, place, time, situation. Cardiovascular: Patient's skin is warm and dry. Respiratory: Airway is patent Respiratory effort is even, unlabored, Respiratory pattern is regular, symmetrical. GI: No signs and/or symptoms were reported involving the gastrointestinal system. : No signs and/or symptoms were reported regarding the genitourinary system. EENT: No signs and/or symptoms were reported regarding the EENT system. Derm: Skin is intact, Skin is pink, warm \T\ dry. Musculoskeletal: Circulation, motion, and sensation intact. Range of motion: intact in all extremities. 20:30 Reassessment: Patient appears in no apparent distress at this time. Patient and/or jb4 family updated on plan of care and expected duration. Pain level reassessed. Patient is alert, oriented x 3, equal unlabored respirations, skin warm/dry/pink. 21:30 Reassessment: Patient appears in no apparent distress at this time. Patient and/or jb4 family updated on plan of care and expected duration. Pain level reassessed. Patient is alert, oriented x 3, equal unlabored respirations, skin warm/dry/pink. 22:30 Reassessment: Patient appears in no apparent distress at this time. Patient and/or jb4 family updated on plan of care and expected duration. Pain level reassessed. Patient is alert, oriented x 3, equal unlabored respirations, skin warm/dry/pink. Vital Signs: 20:05 BP 133 / 68; Pulse 42; Resp 16; Temp 97.9(O); Pulse Ox 94% on R/A; Weight 65.32 kg (R); jb4 Height 5 ft. 9 in. (175.26 cm) (R); Pain 0/10; 20:30 BP 139 / 60; Pulse 44; Resp 13; Pulse Ox 98% on R/A; jb4 21:30 BP 124 / 67; Pulse 46; Resp 20; Pulse Ox 98% on R/A; jb4 22:30 BP 124 / 58; Pulse 56; Resp 12; Pulse Ox 94% on R/A; jb4 20:05 Body Mass Index 21.26 (65.32 kg, 175.26 cm) 4 ED Course: 19:17 Patient arrived in ED. jb4 19:20 Triage completed. jb4 19:20 Arm band placed on right wrist. jb4 19:26 Anton Cha MD is Attending Physician. kdr 19:30 No provider procedures requiring assistance completed. Maintain EMS IV. Dressing jb4 intact. Good blood return noted. Site clean \T\ dry. Gauge \T\ site: 20G lac. IV with fluids infusing freely, with good blood return, Changed dressing on left antecubital. 20:02 Basic Metabolic Panel Sent. jb4 20:03 CBC with Diff Sent. jb4 20:03 NT PRO-BNP Sent. jb4 20:03 Troponin HS Sent. jb4 20:41 XRAY Chest (1 view) In Process Unspecified. EDMS 20:52 Tejas Oneill MD is Hospitalizing Provider. kdr 23:42 [place], RN is Primary Nurse. ke1 23:48 Side rails up X 1. Side rails up X2. ke1 23:48 Patient admitted, IV remains in place. ke1 Administered Medications: No medications were administered Medication: 23:48 VIS not applicable for this client. ke1 Outcome: 20:52 Decision to Hospitalize by Provider. kdr 23:48 Admitted to Med/surg accompanied by tech. ke1 23:48 Condition: good 23:48 Instructed on the need for admit. 23:49 Patient left the ED. ke1 Signatures: Dispatcher [employer] EDMS Anton Cha MD MD kdr Regan Nava RN RN jb4 [place] RN RN ke1
--- NOTE | 2022-09-26 20:53 | EDPHYS ---
Physician Documentation [facility] Name: Scarlett Garrett Age: 87 yrs Sex: Female : 1935 Arrival Date: 09/26/2022 Time: 19:17 Bed 6 Private MD: ED Physician Anton Cha HPI: 09/26 19:42 This 87 yrs old Female presents to ER via EMS with complaints of Weakness. kdr 19:42 Patient states she woke up this morning feeling generally weak soft. She denies any kdr other associated symptoms. She spent most of the day in bed does not feel as if she had much energy. When she is coming out of bed she has been somewhat lightheaded but not near syncopal. She has no other focal complaint at this time. She does say she has had intermittent brief twinges of chest discomfort since yesterday. She denies any other positive review of systems. Onset: The symptoms/episode began/occurred this morning. Severity of symptoms: At their worst the symptoms were mild in the emergency department the symptoms are unchanged. The patient has not experienced similar symptoms in the past. The patient has not recently seen a physician. Historical: - Allergies: 19:20 Cipro; jb4 19:20 Levaquin; jb4 - Home Meds: 19:20 Eliquis oral [Active]; jb4 - PMHx: 19:20 Arthritis; Atrial Fib; Depression; Hypertension; Hypothyroidism; Hypothyroidism; mitral jb4 valve; severe tricuspid valve regurgitation; - PSHx: 19:20 Valve replacement; jb4 - Immunization history:: Client reports receiving the 2nd dose of the Covid vaccine. - Social history:: Smoking status: Patient denies any tobacco usage or history of. ROS: 19:42 Constitutional: Negative for fever, chills, and weight loss, Eyes: Negative for injury, kdr pain, redness, and discharge, Neck: Negative for injury, pain, and swelling, Respiratory: Negative for shortness of breath, cough, wheezing, and pleuritic chest pain, Abdomen/GI: Negative for abdominal pain, nausea, vomiting, diarrhea, and constipation, Back: Negative for injury and pain, : Negative for injury, bleeding, discharge, and swelling, MS/Extremity: Negative for injury and deformity, Skin: Negative for injury, rash, and discoloration, Neuro: Negative for headache, weakness, numbness, tingling, and seizure activity. Psych: Negative for depression, anxiety, suicide ideation, homicidal ideation, and hallucinations, Allergy/Immunology: Negative for hives, rash, and allergies, Endocrine: Negative for neck swelling, polydipsia, polyuria, polyphagia, and marked weight changes, Hematologic/Lymphatic: Negative for swollen nodes, abnormal bleeding, and unusual bruising. 19:42 Cardiovascular: Positive for chest pain, of the mid-sternal area, Very brief and intermittent, Negative for edema, orthopnea, palpitations, paroxysmal nocturnal dyspnea, Patient states that she had an alert from her wrist watch indicating that her heart rate had been at 40 extended.. Exam: 19:42 Constitutional: This is a well developed, well nourished patient who is awake, alert, kdr and in no acute distress. Head/Face: Normocephalic, atraumatic. Eyes: Pupils equal round and reactive to light, extra-ocular motions intact. Lids and lashes normal. Conjunctiva and sclera are non-icteric and not injected. Cornea within normal limits. Periorbital areas with no swelling, redness, or edema. Neck: Trachea midline, no thyromegaly or masses palpated, and no cervical lymphadenopathy. Supple, full range of motion without nuchal rigidity, or vertebral point tenderness. No Meningismus. Chest/axilla: Normal chest wall appearance and motion. Nontender with no deformity. No lesions are appreciated. Cardiovascular: Regular rate and rhythm with a normal S1 and S2. No gallops, murmurs, or rubs. Normal PMI, no JVD. No pulse deficits. Respiratory: Lungs have equal breath sounds bilaterally, clear to auscultation and percussion. No rales, rhonchi or wheezes noted. No increased work of breathing, no retractions or nasal flaring. Abdomen/GI: Soft, non-tender, with normal bowel sounds. No distension or tympany. No guarding or rebound. No evidence of tenderness throughout. Back: No spinal tenderness. No costovertebral tenderness. Full range of motion. Skin: Warm, dry with normal turgor. Normal color with no rashes, no lesions, and no evidence of cellulitis. 19:42 Cardiovascular: Rate: bradycardic, Rhythm: regular, Edema: is not appreciated, JVD: is not appreciated. 19:42 Respiratory: the patient does not display signs of respiratory distress, Respirations: normal, Breath sounds: rales, rhonchi, that are mild, are scattered, are located in both bases, are heard diffusely. Vital Signs: 20:05 BP 133 / 68; Pulse 42; Resp 16; Temp 97.9(O); Pulse Ox 94% on R/A; Weight 65.32 kg (R); jb4 Height 5 ft. 9 in. (175.26 cm) (R); Pain 0/10; 20:30 BP 139 / 60; Pulse 44; Resp 13; Pulse Ox 98% on R/A; jb4 21:30 BP 124 / 67; Pulse 46; Resp 20; Pulse Ox 98% on R/A; jb4 22:30 BP 124 / 58; Pulse 56; Resp 12; Pulse Ox 94% on R/A; jb4 20:05 Body Mass Index 21.26 (65.32 kg, 175.26 cm) jb4 MDM: 19:42 Data reviewed: vital signs, nurses notes, lab test result(s), EKG, radiologic studies. kdr Counseling: I had a detailed discussion with the patient and/or guardian regarding: the historical points, exam findings, and any diagnostic results supporting the discharge/admit diagnosis, lab results, radiology results, the need for further work-up and treatment in the hospital. 20:52 Patient medically screened. [facility] 09/26 19:41 Order name: Basic Metabolic Panel; Complete Time: 20:28 kdr 09/26 19:41 Order name: CBC with Diff; Complete Time: 22:37 kdr 09/26 19:41 Order name: NT PRO-BNP; Complete Time: 20:28 kdr 09/26 19:41 Order name: Troponin HS; Complete Time: 20:28 kdr 12 20:26 Order name: CBC Smear Scan; Complete Time: 22:37 EDMS 09/26 21:01 Order name: SARS RAPID; Complete Time: 22:37 mw2 09/26 19:41 Order name: XRAY Chest (1 view); Complete Time: 22:37 kdr 09/26 19:41 Order name: EKG; Complete Time: 19:42 kdr 09/26 19:41 Order name: Cardiac monitoring; Complete Time: 20:02 kdr 09/26 19:41 Order name: EKG - Nurse/Tech; Complete Time: 20:02 kdr 09/26 21:20 Order name: CONS Physician Consult EDMS 09/26 21:20 Order name: Heart Healthy EDME 09/26 21:20 Order name: CBC with Automated Diff EDMS 09/26 21:20 Order name: CBC with Automated Diff EDMS 09/26 19:41 Order name: IV Saline Lock; Complete Time: 20:02 kdr 09/26 19:41 Order name: Labs collected and sent; Complete Time: 20:02 kdr 09/26 19:41 Order name: O2 Per Protocol; Complete Time: 20:02 kdr 09/26 19:41 Order name: O2 Sat Monitoring; Complete Time: 20:05 kdr Administered Medications: No medications were administered Disposition Summary: 09/26/22 20:52 Hospitalization Ordered Hospitalization Status: Inpatient Admission kdr Provider: Tejas Oneill Location: Telemetry/MedSurg (Inpatient) kdr Condition: Fair kdr Problem: new kdr Symptoms: have improved kdr Bed/Room Type: Standard kdr Room Assignment: [facility](09/26/22 22:02) cg Diagnosis - Bradycardia, unspecified kdr - Weakness kdr Forms: - Medication Reconciliation Form kdr - SBAR form kdr Signatures: Dispatcher [employer] EDME Anton Cha MD MD kdr Stephany Rob RN RN Regan Steiner RN RN jb4 [place] RN RN ke1 Corrections: (The following items were deleted from the chart) 22:02 20:52 kdr cg
--- NOTE | 2022-09-26 20:57 | RAD REPORT ---
EXAM DESCRIPTION: RAD - Chest Single View - 09/26/2022 8:39 pm CLINICAL HISTORY: PALPITATIONS COMPARISON: Two view chest 05/23/2022 TECHNIQUE: AP portable chest image was obtained 09/26/2022 8:39 pm . FINDINGS: Chronic interstitial disease is evident similar to comparison. No failure, infiltrate or m ass identifiable. Fullness of the left hilum is unchanged. Heart and vasculature are normal. No measu rable pleural effusion and no pneumothorax. No acute bony abnormality seen. No acute aortic findings suspected. IMPRESSION: No acute cardiopulmonary process. No significant change from comparison study.
[2022-09-26 20:59] LABS: Anisocytosis 1+; Blood Morphology Comment NOTED (NOT SEEN); Platelet Estimate ADEQ; White Blood Cell Scan OK (OK)
[2022-09-26] MEDS ORDERED: ACETAMINOPHEN 325 MG TABLET PO PRN (21:11)
[2022-09-26] MEDS ORDERED: ONDANSETRON 4 MG/2 ML VIAL IV PRN (21:11)
[2022-09-26 21:32] LABS: SARS-CoV-2 Antigen Rapid Res Negative (Negative)
[2022-09-27 00:05] VITALS: BMI 20.7
[2022-09-27 03:10] LABS: Hematocrit 28.6 % (36.0-45.0); Lymphocytes % 15.6 % (15.3-44.8); MCV 100.7 fL (80-100); MPV 7.1 fL (7.6-11.3); RBC Red Blood Cell Count 2.84 M/uL (3.86-4.86)
[2022-09-27] MEDS ORDERED: HYDROCODONE/APAP 5/325 MG TAB PO PRN (04:06)
--- NOTE | 2022-09-27 04:13 | P.HP ---
Certification for Inpatient Patient admitted to: Inpatient With expected LOS: >2 Midnights Patient will require the following post-hospital care: None Practitioner: I am a practitioner with admitting privileges, knowledge of patient current condition, hospital course, and medical plan of care. Services: Services provided to patient in accordance with Admission requirements found in Title 42 Section 412.3 of the Code of Federal Regulations Patient History Date of Service: 09/27/22 Reason for admission: Weakness, low heart beat. Allergies ciprofloxacin [From Cipro] Allergy (Verified 09/27/22 00:06) Unknown levofloxacin [From Levaquin] Allergy (Verified 09/27/22 00:06) Rash Home medications list reviewed: Yes Home Medications: Fish Oil/Dha/Epa [Fish Oil 1,200 mg Fish Oil] 1 each PO BID 08/14/15 Trazodone [Desyrel*] 100 mg PO BEDTIME 08/14/15 Magnesium [Magnesium Gluconate] 250 mg PO DAILY 01/24/19 vit A and D3 in cod liver oiL [Cod Liver Oil Softgel] 1 tab PO BID 01/24/19 Ascorbic Acid [Vitamin C*] 2,000 mg PO BID 04/27/20 Cetirizine HCl [Zyrtec] 10 mg PO DAILY 12/16/20 Cyclobenzaprine [Flexeril*] 1 tab PO PRN PRN 03/15/22 Escitalopram Oxalate [Lexapro] 20 mg PO DAILY 03/15/22 Hydrocodone Bit/Acetaminophen [Hydrocodon-Acetaminophen 5-325] 1 tab PO PRN PRN 03/15/22 Metoprolol Tartrate 1 tab PO BID 03/15/22 Montelukast Sodium [Singulair] 10 mg PO DAILY 03/15/22 Sotalol HCl [Betapace*] 120 mg PO BID 6AM 6PM 09/27/22 - Past Medical/Surgical History Has patient received pneumonia vaccine in the past: Yes Diabetic: No -: arthritis -: depression -: severe TVR -: Hypertension -: Hypothyroidism -: hip replacement -: back surgery -: Elbow surgery -: hysterectomy -: appendectomy Psychosocial/ Personal History: Patient lives at home - Family History Father -: Heart disease Sister -: Hypertension, Stroke, Other (see notes) - Social History Smoking Status: Never smoker Alcohol use: Yes CD- Drugs: No Caffeine use: Yes Place of Residence: Home Review of Systems General: Weakness, Malaise Eyes: Unremarkable ENT: Unremarkable Respiratory: Unremarkable Cardiovascular: Unremarkable Gastrointestinal: Unremarkable Genitourinary: Unremarkable Musculoskeletal: Unremarkable Integumentary: Unremarkable Neurological: Unremarkable Physical Examination - Vital Signs Temperature: 97.2 F Blood Pressure: 159/76 Pulse: 57 Respirations: 16 Pulse Ox (%): 94 - Physical Exam General: Alert, Oriented x3 HEENT: Atraumatic, Normocephalic Neck: Supple Respiratory: Normal air movement Cardiovascular: Normal S1 S2, Other (Slow heart beat.) Gastrointestinal: Soft and benign Musculoskeletal: No swelling Neurological: Normal speech, Normal strength at 5/5 x4 extr - Studies Laboratory Data (last 24 hrs) 09/26/22 19:54: WBC 6.50, Hgb 9.9 L, Hct 29.4 L, Plt Count 190 09/26/22 19:54: Sodium 135 L, Potassium 4.0, BUN 17, Creatinine 0.84, Glucose 78 Assessment and Plan - Plan Bradycardia: Patient's episode is deemed secondary to perhaps medication side effect. Review of home med did show sotalol and metoprolol listed. Will hold all rate control meds and follow on telemetry. Will obtain echocardiogram to assess cardiac function Will continue to monitor symptomatology closely. Cardiology has been consulted for management recommendation. Hypertension: We will monitor vital signs per unit protocol and continue an tihypertensive medication. Hypothyroidism: We will monitor TSH and free T4. We will continue thyroid replacement therapy after medication review. Coronary artery disease: Status post Bacardi bypass surgery. Monitor on telemetry and continue antiplatelet and statin therapy Prophylaxis: Lovenox for DVT prophylaxis CODE STATUS: Full code Disposition: We will address bradycardia and discharge patient was she is deemed clinically safe. Discharge Plan: Home - Advance Directives Does patient have a Living Will: Yes Does patient have a Durable POA for Healthcare: Yes
[2022-09-27 05:55] LABS: Thyroid Stimulating Hormone 1.58 uIU/mL (0.358-3.740)
[2022-09-27] MEDS: MONTELUKAST 10 MG TAB PO SCH (08:48)
[2022-09-27] MEDS: ENOXAPARIN 40 MG/0.4 ML SQ SCH (08:48)
[2022-09-27] MEDS ORDERED: TRAZODONE 50 MG TABLET PO SCH (21:00)
--- NOTE | 2022-09-27 21:47 | CON ---
Date of Consultation: 09/27/2022 Reason For Consultation: Bradycardia. History Of Present Illness: This is an 87-year-old female with history of atrial fibrillation status post Maze procedure and history of mitral valve regurgitation, tricuspid valve regurgitation, status post recent repair. She was on sotalol and metoprolol at home for the control of atrial fibrillatio n and she comes in because of feeling dizzy and lightheaded. She was very bradycardic. Metoprolol w as held and she feels better today. Her heart rate was in the mid 50s. No further complaints. Past Medical History: As outlined above in the HPI. Medications: Refer to reconciliation sheet for detailed list. Allergies: FLUOROQUINOLONES. Family History: No premature coronary artery disease or cancer. Social History: She does not smoke or drink. Does not use any drugs. Review of Systems: All systems reviewed and they are negative except as mentioned in HPI. Physical Examination: Vital Signs: Reviewed. Heart rate in the low 50s. Blood pressure 137/66. General: A pleasant elderly female, no apparent distress. Head And Neck: Pupils are equal and reactive to light. Intact eye movements. No JVD. No cervical lymphadenopathy. Neck is supple. Thyroid is not enlarged. Lungs: Clear to auscultation bilaterally. No rhonchi, wheezing, or crackles. No accessory muscle u se. Heart: Regular rate and rhythm. No extra sounds. Abdomen: Soft, nontender. Bowel sounds positive. No organomegaly. No masses or hernia. No rigidi ty or rebound. Extremities: No edema, clubbing, or cyanosis. Intact pulses. Skin: No rash. Neurologic: Alert, awake, and oriented x3. No acute focal deficits appreciated. Investigations: Labs were reviewed. Assessment/recommendation: 1.Symptomatic bradycardia. Hold beta alanis, metoprolol, and sotalol. Monitor for next 24 hours a nd then reintroduce, probably sotalol alone gradually. 2.Chronic diastolic heart failure and this is stable. She appears to be euvolemic. Continue to mon itor. SR/MODL Voice ID: [id number] Report ID: [id number]
[2022-09-28 04:24] VITALS: O2SAT 94
[2022-09-28] MEDS: ENOXAPARIN 40 MG/0.4 ML SQ SCH (09:11)
[2022-09-28] MEDS: MONTELUKAST 10 MG TAB PO SCH (09:11)
--- NOTE | 2022-09-28 11:24 | P.PN ---
Subjective Date of Service: 09/28/22 Chief Complaint: Weakness, low heart beat. Subjective: No new changes Review of Systems 10-point ROS is otherwise unremarkable Physical Examination - Vital Signs Temperature: 97.2 F Blood Pressure: 127/73 Pulse: 60 Respirations: 14 Pulse Ox (%): 93 - Physical Exam General: Alert, In no apparent distress HEENT: Atraumatic, PERRLA, EOMI Neck: Supple, JVD not distended Respiratory: Clear to auscultation bilaterally, Normal air movement Cardiovascular: Regular rate/rhythm, Normal S1 S2 Gastrointestinal: Normal bowel sounds, No tenderness Musculoskeletal: No tenderness Integumentary: No rashes Neurological: Normal speech, Normal tone, Normal affect Lymphatics: No axilla or inguinal lymphadenopathy Assessment And Plan - Current Problems (Diagnosis) (1) Bradycardia Current Visit: Yes Status: Acute Plan: Patient is still bradycardic. She may still have some of the sotolol in her system. Will keep her inhouse. there is an order for a echocardiogram. Probably from cardiology (2) Atrial fibrillation Current Visit: No Status: Chronic Plan: continue metoprolol. She is being seen by Cardiology Qualifiers: Atrial fibrillation type: longstanding persistent Qualified Code(s): I48.11 - Longstanding persistent atrial fibrillation (3) HTN (hypertension) Current Visit: No Status: Chronic Plan: currently well controlled. Qualifiers: Hypertension type: primary hypertension Qualified Code(s): I10 - Essential (primary) hypertension Discharge Plan: Home Plan to discharge in: 24 Hours - Code Status/Comfort Care Code Status Assessed: No Physician Review: Patient Assessed, Agree with Above Assessment and Plan Critical Care: No Time Spent Managing PTS Care (In Minutes): 20
--- NOTE | 2022-09-28 16:06 | P.DS ---
Admission Date: 09/26/22 Discharge Date: 09/28/22 Disposition: ROUTINE DISCHARGE Discharge Condition: GOOD Reason for Admission: Weakness, low heart beat. - Problems (1) Bradycardia Current Visit: Yes Status: Acute (2) Atrial fibrillation Current Visit: No Status: Chronic Qualifiers: Atrial fibrillation type: longstanding persistent Qualified Code(s): I48.11 - Longstanding persistent atrial fibrillation (3) HTN (hypertension) Current Visit: No Status: Chronic Qualifiers: Hypertension type: primary hypertension Qualified Code(s): I10 - Essential (primary) hypertension Brief History of Present Illness: Patient was admitted for bradycardia. She had been taking sotolol and metoprolol. Please see the hospitalist note Hospital Course: Patient was admitted for bradycardia. The patient's sotolol was discontinued. She is slowly improving. Will discharge her and have him following up with Dr. Nava and myself Vital Signs/Physical Exam: Temp Pulse Resp BP Pulse Ox 97.5 F 66 16 152/82 H 98 09/28/22 13:11 09/28/22 13:11 09/28/22 13:11 09/28/22 13:11 09/28/22 13:11 General: Alert, In no apparent distress HEENT: Atraumatic, PERRLA, EOMI Neck: Supple, JVD not distended Respiratory: Clear to auscultation bilaterally, Normal air movement Cardiovascular: Regular rate/rhythm, Normal S1 S2 Gastrointestinal: Normal bowel sounds, No tenderness Musculoskeletal: No tenderness Integumentary: No rashes Neurological: Normal speech, Normal tone, Normal affect Lymphatics: No axilla or inguinal lymphadenopathy Laboratory Data at Discharge: WBC 6.40 K/uL (4.3-10.9) 09/27/22 02:36 Hgb 9.7 g/dL (12.0-15.0) L 09/27/22 02:36 Hct 28.6 % (36.0-45.0) L 09/27/22 02:36 Plt Count 191 K/uL (152-406) 09/27/22 02:36 Sodium 135 mmol/L (136-145) L 09/26/22 19:54 Potassium 4.0 mmol/L (3.5-5.1) 09/26/22 19:54 BUN 17 mg/dL (7-18) 09/26/22 19:54 Creatinine 0.84 mg/dL (0.55-1.02) 09/26/22 19:54 Glucose 78 mg/dL (74-106) 09/26/22 19:54 Home Medications: Fish Oil/Dha/Epa [Fish Oil 1,200 mg Fish Oil] 1 each PO BID 08/14/15 Trazodone [Desyrel*] 100 mg PO BEDTIME 08/14/15 Magnesium [Magnesium Gluconate] 250 mg PO DAILY 01/24/19 vit A and D3 in cod liver oiL [Cod Liver Oil Softgel] 1 tab PO BID 01/24/19 Ascorbic Acid [Vitamin C*] 2,000 mg PO BID 04/27/20 Cetirizine HCl [Zyrtec] 10 mg PO DAILY 12/16/20 Cyclobenzaprine [Flexeril*] 1 tab PO PRN PRN 03/15/22 Escitalopram Oxalate [Lexapro] 20 mg PO DAILY 03/15/22 Hydrocodone Bit/Acetaminophen [Hydrocodon-Acetaminophen 5-325] 1 tab PO PRN PRN 03/15/22 Metoprolol Tartrate 1 tab PO BID 03/15/22 Montelukast Sodium [Singulair] 10 mg PO DAILY 03/15/22 Diet: AHA Activity: Ad bria Followup: Aron Valladares MD [Primary Care Provider] - 1-2 Weeks Chace Nava MD [ACTIVE - CAN ADMIT] - 1 Week Time spent managing pt's care (in minutes): 30
[2022-09-28 16:24] VITALS: BP 139/70; TEMP 97
--- NOTE | 2022-09-28 17:39 | PN ---
Date of Progress Note: 09/28/2022 Subjective: Seen by bedside, doing well, breathing much better. Heart rate is in the mid 60s. Review of Systems: No chest pain, shortness of breath, orthopnea, cough. No nausea, vomiting, diarrhea. No abdominal p ain. No dysuria, polyuria, or urgency. No skin rash. All other systems reviewed, they were negativ e. Physical Examination: Vital Signs: Reviewed. Head and Neck: Pupils are equal, reactive to light. Intact eye movements. No JVD. No cervical lym phadenopathy. Neck is supple. Thyroid is not enlarged. Lungs: Clear to auscultation bilaterally. No rhonchi, rales, or crackles. No accessory muscle use. Heart: Regular rate and rhythm. No extra sounds. Abdomen: Soft, nontender. Bowel sounds positive. No organomegaly. No masses or hernia. No rigidi ty or rebound. Extremities: No edema, clubbing, or cyanosis. Intact pulses. Skin: No rash. Neurologic: Alert, awake, and oriented x3. No acute focal deficits appreciated. Lymph Nodes: No cervical or axillary lymphadenopathy. Investigations: Labs were reviewed. Assessment And Recommendation: 1.Symptomatic bradycardia, medication induced. Sotalol and metoprolol were discontinued. Her heart rate is back up and she feels well. The patient can be released from Cardiology standpoint and aske d her to start metoprolol-XL 25 mg daily and to stop the sotalol permanently as this patient had a Ma ze procedure for atrial fibrillation recently with appendage closure. 2.Chronic diastolic heart failure. She is stable, euvolemic. 3.Hypertension. Resume antihypertensive medications and the patient can be released today from Cardiology standpoint and I will follow her up sometimes next week. SR/MODL Voice ID: [id number] Report ID: [id number]
--- NOTE | 2022-09-29 15:04 | EKG ---
Test Date: 2022-09-26 Test Time: 19:45:50 Department Operations Manager: HOSSEIN MEASUREMENT RESULTS: Intervals: Rate: 43 MS: 162 QRSD: 76 QT: 530 QTc: 447 [place]: P: 77 MS: 162 QRS: -3 T: 70 INTERPRETIVE STATEMENTS: Marked sinus bradycardia Nonspecific ST and T wave abnormality Abnormal ECG Compared to ECG 03/15/2022 10:02:52 ST (T wave) deviation now present Atrial fibrillation no longer present T-wave abnormality no longer present Electronically Signed On 09-29-22 14:57:53 COMPLIANCE REVIEW SPECIALIST by Chace Nava
== END 2022-09-28 17:30 | disposition home or self-care (01) | DRG 309 ==
LOC: ER 19:11 → ERHOLD 21:11 → 2ND 23:08
PROVIDERS: ADMIT Internal Medicine Nephrology; ATTEND Internal Medicine
DX: R00.1 Bradycardia, unspecified (principal); I50.32 Chronic diastolic (congestive) heart failure; I11.0 Hypertensive heart disease with heart failure; I48.11 Longstanding persistent atrial fibrillation; E03.9 Hypothyroidism, unspecified; I25.10 Atherosclerotic heart disease of native coronary artery without angina pectoris; T44.7X5A Adverse effect of beta-adrenoreceptor antagonists, initial encounter; Z95.2 Presence of prosthetic heart valve; Z95.1 Presence of aortocoronary bypass graft; Z88.1 Allergy status to other antibiotic agents; Z79.01 Long term (current) use of anticoagulants; Z90.49 Acquired absence of other specified parts of digestive tract; Z79.899 Other long term (current) drug therapy; Z90.710 Acquired absence of both cervix and uterus; Z96.649 Presence of unspecified artificial hip joint; Z20.822 Contact with and (suspected) exposure to COVID-19
CPT/HCPCS: 36415; 71045; 80048; 83880; 84439; 84443; 84484; 85025; 87811; 93005; 99285; J1650

== ENCOUNTER 2023-03-03 17:11 | Observation (INO) | payer OTHER ==
--- OUTSIDE RECORDS SUMMARY | 2023-03-03 17:21 | XMS REPORT | Continuity of Care Document ---
:1935 Author Organization [facility] t Address [address] [place] [address] [place] [id number] Care Team Providers Name Role Phone Asked, None Given Primary Care Physician Unavailable GUS BRITO Attending Clinician Unavailable Kamran NANCE, Emy Attending Clinician Unavailable Gus Brito MD Attending Clinician Florina HUMAN 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, Warner Hobson Attending Clinician WARNER HEATON Attending Clinician Unavailable Sissy Plascencia MD Attending Clinician Raymond Jj DO Attending Clinician Tabitha Barron MD Attending Clinician Angel Ramirez MD Attending Clinician [phone] Tej CHAMBERS, Juan Hernández Attending Clinician Moody Gore RN Attending Clinician Unavailable HAMZAH FORMAN Attending Clinician Unavailable Dickson BALBUENA, Hamzah Correia Attending Clinician [phone] Chace Nava Attending Clinician Unavailable MARCO IRENE [...] Number Effective Date Expiration Date S genoveva UNITED MEDICARE [id number] 2021 [facility] 00:00:00 [facility] [id number] 2020 [facility] 00:00:00 O MEDICARE PART B - [id number] 2010 MEDICARE 00:00:00 GENERIC PPO - [id number] GENERIC PAYOR MEDICARE ADVANTAGE [id number] PPO - [facility] Problems Condition Condition Condition Status Onset [...] Disease Active C HI [facility] openia openia [facility] Hyperglyce Hyperglyce Disease Active C [facility] jonathon [facility] Allergies, Adverse Reactions, Alerts Allergy Allergy [...] ciproflo DA Active [facility] xacin 6-14 Clear 00:00: [place] 00 [facility] CIPROFLO DRUG Active Rash 2019-10 Univers XACIN INGREDI 10-19 ity of 00:00: [address] [place] Ciproflo Propensi Active Rash Method i xacin ty to [address] [facility] adverse 00:00: Hospita reaction 00 l s to drug Levoflox Propensi Active Rash Method i acin ty to 5-31 st adverse 00:00: Hospita reaction 00 l s to drug Ciproflo Propensi Active Method i xacin ty to 5-27 st adverse 00:00: Hospita reaction 00 l s to drug Levoflox Propensi Active Method i acin ty to 5-27 st adverse 00:00: Hospita reaction 00 l s to drug levoflox DA Active [place] [facility] acin 5-20 Clear 00:00: [place] 00 [facility] levoflox DA Active [facility] acin 5-20 [place] 00:00: [facility] 00 dic Hospita l Family History Family Member Diagnosis Comments Start Date Stop Date Source Natural father Heart attack [facility] Natural mother Brain cancer [facility] Natural sister Stroke [facility] Social History Social Habit Start Date Stop Date Quantity Comments Source Gender identity [facility] Sexual orientation [facility] History of Social 2022-12-24 2022-12-[address] function 00:00:00 00:00:00 Hospital Tobacco use and 2022-04-22 2022-04-[address] [facility] [address] [facility] exposure 00:00:00 [facility]:00 [facility] Alcohol intake 2017-01-16 2017-01-16 Current drinker [facility] 00:00:00 00:00:00 of alcohol Hospital (finding) Sex Assigned At [birth year] [facility] 00:[facility]00 Hospital Smoking Status Start Date [...] MG 10:39: mouth Medical tablet 23 nightly. [facility] montelukast Yes 10mg QD Take [address] (SINGULAIR) 8-10 by mouth Luke s 10 mg 10:39: nightly. Medical tablet 23 Center VITAMINS A Yes QD Take by [facility] AND D ORAL 8-10 [facility] 10:39: daily . [address] cholecalcif Yes 5000U QD Take 5,[address] berta, 8-10 Units by [facility] vitamin D3, 10:39: mouth Medic al 50 mcg 23 daily . [facility] (2,000 unit) Cap omega-3 Yes 2g Q.5D [...] 10:39: mouth Medical magnesium 23 daily . [facility] Tab ZINC Yes 50mg QD Take [address] GLUCONATE 8-10 by mouth [facility] ORAL 10:39: daily . [address] cetirizine Yes 10mg QD Take 10 [...] tablet 23 (two) Center times daily. apixaban Yes 5mg Q.5D Take 5 mg [...] MG 10:39: mouth Medical tablet 23 nightly. [facility] montelukast Yes 10mg QD Take [address] (SINGULAIR) 8-10 by mouth Luke s 10 mg 10:39: nightly. Medical tablet 23 [facility] VITAMINS A Yes QD Take by [facility] AND D ORAL 8-10 mouth [facility] 10:39: daily . [address] cholecalcif Yes 5000U QD Take 5,[address] berta, 8-10 Units by [facility]ukes vitamin D3, 10:39: mouth Medic al 50 mcg 23 daily . [facility] (2,000 unit) Cap omega-3 Yes 2g Q.5D [...] 10:39: mouth Medical magnesium 23 daily . [facility] Tab ZINC Yes 50mg QD Take [address] GLUCONATE 8-10 by mouth [facility] ORAL 10:39: daily . [address] cetirizine 2022-0 Yes 10mg QD Take [address] (ZyrTEC) 10 8-10 by mouth Luke s MG tablet 10:39: daily. Medica l 23 Center HYDROcodone 2021-0 Yes 1{tbl} Take [address] -acetaminop 8-10 tablet by Shelbie es hen (NORCO 10:39: mouth Medica l 7.5-325) 23 every 6 Center 7.5-325 mg (six) per tablet hours as needed for Pain. sotaloL 2022-0 Yes 120mg Q.5D Take 120 [facility] [...] l 00 by mouth Center daily. famotidine 2022-0 Yes 20mg QD Take 1 [facility] (PEPCID) 20 7-20 tablet (20 Rosey kes MG tablet 00:00: mg total) Med ical 00 by mouth Center daily. furosemide 2022-0 Yes 20mg QD Take 1 [facility] (LASIX) 20 7-20 tablet (20 Shelbie es MG tablet 00:00: mg total) Med ical 00 by mouth Center daily. amLODIPine 2022-0 Yes 5mg QD Take 1 [facility] (NORVASC) 5 7-20 tablet (5 Shelbie es MG tablet 00:00: mg total) Med ical 00 by mouth Center daily. aspirin 81 2022-0 Yes 81mg QD Take 1 [facility] MG EC 7-20 tablet (81 [facility] tablet 00:00: mg total) Medica l 00 by mouth Center daily. famotidine 2022-0 Yes 20mg QD Take 1 [facility] (PEPCID) 20 7-20 tablet (20 Rosey kes MG tablet 00:00: mg total) Med ical 00 by mouth Center daily. furosemide 2022-0 Yes 20mg QD Take 1 [facility] (LASIX) 20 7-20 tablet (20 Shelbie es MG tablet 00:00: mg total) Med ical 00 by mouth Center daily. DILTIAZEM 2021- No 30mg Q.[id number] Take [address] HCL ORAL 7-19 07-19 [id number] by mouth 3 [facility] 10:39: 00:00 3D (three) Medical 12 :00 times Center daily . TURMERIC 2021- No 4000mg QD Take 4,[address] ORAL 7-19 07-19 mg by [facility]ukes 10:39: 00:00 mouth Medical 12 :00 daily . Center DILTIAZEM 2021- No 30mg Q.[id number] Take [address] HCL ORAL 7-19 07-19 [id number] by mouth 3 [facility] 10:39: 00:00 3D (three) Medical 12 :00 times Center daily . TURMERIC 2021- No 4000mg QD Take 4,[address] ORAL 7-19 07-19 mg by [facility]ukes 10:39: 00:00 mouth Medical 12 :00 daily . Center metoprolol Yes 50mg Q.[id number] Take [address] tartrate 7-19 [id number] tablet (50 [facility] (LOPRESSOR) 00:00: 3D mg total) M edical 50 MG 00 by mouth 3 Center tablet (three) times daily. metoprolol Yes 50mg Q.[id number] Take [address] tartrate 7-19 [id number] tablet (50 [facility] (LOPRESSOR) 00:00: 3D mg [...] 00 (two) l times a day. escitalopra 2019-0 Yes 10mg QD Take 10 mg Methodi [...] Hospita 250-125 00 daily. l mg-unit tablet celecoxib 2020-0 Yes 200mg Q.5D Take 200 [...] 250-125 00 daily. l mg-unit tablet metoprolol 2020-0 Yes 25mg Q.5D Take 25 [...] Hospi ta tablet 00 daily. l omega-3 2019-0 Yes 1g Q.5D Take 1 g Method i acid ethyl 8-[address] esters 14:41: (two) Hospita (LOVAZA) 1 00 times a l gram day. capsule calcium 2019-0 Yes 1{tbl} QD Take 1 Method i [...] 12 hours or as directed by estradiol 2015- Yes 2g QD Insert 2 g Me thodi (ESTRACE) 6-[address] 0.01 % (0.1 12:11: vagina Hosp felisha mg/gram) 15 daily. l vaginal cream nitrofurant Yes 50mg QD Take 50 mg Methodi oin 6-[address] (MACRODANTI 12:11: daily. Hosp felisha N) 50 MG 15 l capsule metoprolol 2016-0 Yes 25mg Q.5D Take 25 mg M ethodi tartrate 6-[address] (LOPRESSOR) 12:11: (two) Hospi ta 25 MG 15 times a l tablet day. escitalopra 2016-0 Yes 10mg QD Take 10 mg Methodi m (LEXAPRO) 6-[address] 10 MG 12:11: daily. Hospita tablet 15 l traZODone 2016-0 Yes 100mg QD Take 100 Met hodi (DESYREL) 6-[address] 100 MG 12:11: mouth Hospita tablet 15 nightly. l lidocaine 2015-0 Yes 1{patch Q24H Place 1 Me thodi (LIDODERM) 6-01 } patch on st 5 % 12:11: the skin Hospita 15 daily. l Remove & Discard patch within 12 hours or as directed by estradiol Yes 2g QD Insert 2 g Me thodi (ESTRACE) 6-[address] 0.01 % (0.1 12:11: vagina Hosp felisha mg/gram) 15 daily. l vaginal cream nitrofurant 2015-0 Yes 50mg QD Take 50 mg Methodi oin 6-[address] (MACRODANTI 12:11: daily. Hosp felisha N) 50 MG 15 l capsule metoprolol 2016-0 Yes 25mg Q.5D Take 25 mg M ethodi tartrate 6-[address] (LOPRESSOR) 12:11: (two) Hospi ta 25 MG 15 times a l tablet day. escitalopra 2016-0 Yes 10mg QD Take 10 mg Methodi m (LEXAPRO) 6-[address] 10 MG 12:11: daily. Hospita tablet 15 l traZODone 2016-0 Yes 100mg QD Take 100 Met hodi (DESYREL) 6-[address] 100 MG 12:11: mouth Hospita tablet 15 nightly. l lidocaine 2016-0 Yes 1{patch Q24H Place 1 Me thodi [...] Date Status Commen ts Source Name Name PFIZER COVID-19 MRNA 2020-11-24 Completed Meth odist VACCINATION 00:00:00 [facility] PFIZER COVID-19 MRNA 2020-11-24 Completed Meth odist VACCINATION 00:00:00 [facility] PFIZER COVID-19 MRNA 2020-11-24 Completed Meth odist VACCINATION 00:00:00 [facility] PFIZER COVID-19 MRNA 2020-11-03 Completed Meth odist VACCINATION 00:00:00 [facility] PFIZER COVID-19 MRNA 2020-11-03 Completed Meth odist VACCINATION 00:00:00 [facility] PFIZER COVID-19 MRNA 2020-11-03 Completed Meth odist [...] kg Systolic blood 2022-05-28 10:36:00 136 mm[Hg] [facility] Diastolic blood 2022-05-28 10:36:00 79 mm[Hg] [facility] Heart rate 2022-05-28 10:36:00 89 /min [facility] Body height 2022-05-28 10:36:00 175.3 cm [facility] Body weight 2022-05-28 10:36:00 66.679 kg [facility] BMI 2022-05-28 10:36:00 21.71 kg/m2 [facility] Oxygen saturation in 2022-05-28 10:36:00 98 /min [facility] Arterial blood by Medical Ce nter Pulse oximetry Body temperature 2022-05-06 08:00:00 36.39 Deanna [facility] Respiratory rate 2022-05-06 08:00:00 19 /min [facility] Procedures Procedure Date / Time Performing Clinician Source Performed POCT-GLUCOSE METER 2022-05-06 07:45:00 Gus Brito [facility] BASIC METABOLIC PANEL 2022-05-06 05:58:00 Lux Campbell [facility] MAGNESIUM 2022-05-06 05:58:00 Lux Campbell [facility] CBC (HEMOGRAM ONLY) 2022-05-06 05:58:00 Lux Campbell [facility] XR CHEST 1 VIEW PORTABLE / 2022-05-06 05:18:00 Daniella Alonso [facility] POCT-GLUCOSE METER 2022-05-05 21:22:00 Gus Brito [facility] POCT-GLUCOSE METER 2022-05-05 16:48:00 Gus Brito [facility] POCT-GLUCOSE METER 2022-05-05 11:39:00 Gus Brito [facility] XR CHEST 1 VIEW PORTABLE / 2022-05-05 09:01:00 Tonia-Smart, Sonya [facility] POCT-GLUCOSE METER 2022-05-05 07:16:00 Gus Brito [facility] BASIC METABOLIC PANEL 2022-05-05 03:55:00 Lux Campbell [facility] MAGNESIUM 2022-05-05 03:55:00 Lux Campbell [facility] CBC (HEMOGRAM ONLY) 2022-05-05 03:55:00 Lux Campbell [facility] POCT-GLUCOSE METER 2022-05-04 21:37:00 Gus Brito [facility] POCT-GLUCOSE METER 2022-05-04 17:32:00 Gus Brito [facility] XR CHEST 1 VIEW PORTABLE / 2022-05-04 14:20:00 Alfie Gonsalves [facility] POCT-GLUCOSE METER 2022-05-04 12:15:00 Gus Brito [facility] POCT-GLUCOSE METER 2022-05-04 08:44:00 Gus Brito [facility] XR CHEST 1 VIEW PORTABLE / 2022-05-04 06:41:00 Tonia-Smart, [facility] BASIC METABOLIC PANEL 2022-05-04 03:42:00 Lux Campbell [facility] MAGNESIUM 2022-05-04 03:42:00 Lux Campbell [facility] CBC (HEMOGRAM ONLY) 2022-05-04 03:42:00 Lux Campbell [facility] POCT-GLUCOSE METER 2022-05-03 21:24:00 Gus Brito [facility] POCT-GLUCOSE METER 2022-05-03 17:03:00 Gus Brito [facility] XR CHEST 1 VIEW PORTABLE / 2022-05-03 12:56:00 Tonia-Smart, Sonya [facility] POCT-GLUCOSE METER 2022-05-03 11:29:00 BritoGus [facility] POCT-GLUCOSE METER 2022-05-03 07:19:00 BritoGus bruce [facility] BASIC METABOLIC PANEL 2022-05-03 05:18:00 Lux Campbell [facility] MAGNESIUM 2022-05-03 05:18:00 Lux Campbell [facility] CBC (HEMOGRAM ONLY) 2022-05-03 05:18:00 Lux Campbell [facility] POCT-GLUCOSE METER 2022-05-02 21:05:00 BritoGus bruce [facility] POCT-GLUCOSE METER 2022-05-02 16:39:00 Gus Brito [facility] XR CHEST 1 VIEW PORTABLE / 2022-05-02 13:32:00 [facility], Sonya h [facility] POCT-GLUCOSE METER 2022-05-02 12:17:00 BritoGus bruce [facility] 2D ECHO W/ DOPPLER 2022-05-02 12:16:00 [facility] (CW/PW/COLOR) [facility] 2D ECHO W/ DOPPLER 2022-05-02 10:26:33 [facility] (CW[facility]PW/COLOR) [facility] POCT-GLUCOSE METER 2022-05-02 07:14:00 Gus Brito [facility] XR CHEST 1 VIEW PORTABLE / 2022-05-02 06:43:00 Clyde Mix [facility] BASIC METABOLIC PANEL 2022-05-02 04:44:00 Lux Campbell [facility] MAGNESIUM 2022-05-02 04:44:00 Lux Campbell [facility] CBC (HEMOGRAM ONLY) 2022-05-02 04:44:00 Lux Campbell [facility] POCT-GLUCOSE METER 2022-05-01 21:14:00 Gus Brito [facility] POCT-GLUCOSE METER 2022-05-01 17:23:00 Brito Gus Mason [facility] POCT-GLUCOSE METER 2022-05-01 11:24:00 Brito Gus Mason [facility] XR CHEST 1 VIEW PORTABLE / 2022-05-01 09:01:00 Maria Dolores Johnson [facility] POCT-GLUCOSE METER 2022-05-01 07:39:00 Brito, Gus Mason [facility] XR CHEST 1 VIEW PORTABLE / 2022-05-01 06:46:00 Clyde Mix [facility] BASIC METABOLIC PANEL 2022-05-01 04:27:00 Lux Campbell [facility] MAGNESIUM 2022-05-01 04:27:00 Adrian [facility] CBC (HEMOGRAM ONLY) 2022-05-01 04:27:00 Lux Campbell [facility] POCT-GLUCOSE METER 2022-04-30 21:16:00 Brito, Gus Marlon [facility] POCT-GLUCOSE METER 2022-04-30 17:14:00 Gus Brito [facility] POCT-GLUCOSE METER 2022-04-30 11:56:[address] [facility] POCT-GLUCOSE METER 2022-04-30 07:25:[address] [facility] XR CHEST 1 VIEW PORTABLE / 2022-04-30 07:07:00 Clyde Mix [facility] POCT-GLUCOSE METER 2022-04-29 21:20:[address] [facility] POCT-GLUCOSE METER 2022-04-29 16:15:[address] [facility] POCT-GLUCOSE METER 2022-04-29 10:59:[address] [facility] XR CHEST 1 VIEW PORTABLE / 2022-04-29 10:50:00 Heide Gaytan [facility] XR CHEST 1 VIEW PORTABLE / 2022-04-29 09:20:00 Shravan Joseph [facility] POCT-GLUCOSE METER 2022-04-29 06:59:00 Raymond Jj [facility] CBC W/PLT COUNT & AUTO 2022-04-29 03:48:00 Odilia Alaniz [facility] BASIC METABOLIC PANEL 2022-04-29 03:48:00 Corbin [facility] MAGNESIUM 2022-04-29 03:48:00 Corbin [facility] PHOSPHORUS 2022-04-29 03:48:00 [facility] CALCI[facility], ION[facility]ED 2022-04-29 03:48:00 Corbin [facility] CBC W/PLT COUNT & AUTO 2022-04-29 03:48:00 Corbin [facility] (CELLAVISION MANUAL DIFF) 2022-04-29 03:48:00 Odilia Alaniz denilson [facility] POCT-GLUCOSE METER 2022-04-29 01:31:00 Raymond Jj [facility] XR CHEST 1 VIEW PORTABLE / 2022-04-29 01:09:00 Odilia Alaniz [facility] POCT-GLUCOSE METER 2022-04-28 16:23:00 Temo [facility] POCT-GLUCOSE METER 2022-04-28 11:48:00 Temo [facility] XR CHEST 1 VIEW PORTABLE / 2022-04-28 11:10:00 Arnulfo Duarte [facility] CBC W/PLT COUNT & AUTO 2022-04-28 03:28:00 Corbin [facility] BASIC METABOLIC PANEL 2022-04-28 03:28:00 Corbin [facility] MAGNESIUM 2022-04-28 03:28:00 Corbin [facility] PHOSPHORUS 2022-04-28 03:28:00 Physician President, Odilia [facility] CALCIUM, IONIZED 2022-04-28 03:28:00 Odilia Alaniz [facility] CBC W/PLT COUNT & AUTO 2022-04-28 03:28:00 Corbin [facility] (CELLAVISION MANUAL DIFF) 2022-04-28 03:28:00 Odilia Alaniz [facility] XR CHEST 1 VIEW PORTABLE / 2022-04-28 01:00:00 Odilia Alaniz [facility] POCT-GLUCOSE METER 2022-04-28 00:07:00 Temo [facility] PREPARE RBC 2022-04-27 23:54:00 Gus Brito [facility] POCT-GLUCOSE METER 2022-04-27 17:57:00 [facility] POCT-GLUCOSE METER 2022-04-27 11:02:00 Temo [facility] XR CHEST 1 VIEW PORTABLE / 2022-04-27 07:52:00 Odilia Alaniz [facility] POCT-GLUCOSE METER 2022-04-27 07:37:00 Temo [facility] BLOOD GAS, ARTERIAL 2022-04-27 05:42:00 Odilia Alaniz [facility] OXYGEN SATURATION, 2022-04-27 05:42:00 Odilia Alaniz [facility] CBC W/PLT COUNT & AUTO 2022-04-27 05:41:00 Odilia Alaniz [facility] BASIC METABOLIC PANEL 2022-04-27 05:41:00 Corbin [facility] MAGNESIUM 2022-04-27 05:41:00 Corbni [facility] PHOSPHORUS 2022-04-27 05:41:00 [facility] CALCIUM, IONIZED 2022-04-27 05:41:00 Odilia Alaniz [facility] CBC W/PLT COUNT & AUTO 2022-04-27 05:41:00 Odilia Alaniz [facility] (CELLAVISION MANUAL DIFF) 2022-04-27 05:41:[address] [facility] POCT-GLUCOSE METER 2022-04-27 00:23:00 [facility] PREPARE LEUKO-REDUCED RBC 2022-04-26 23:54:00 Jayce Mauricio Ther alonso [facility] XR CHEST 1 VIEW PORTABLE / 2022-04-26 20:34:00 Jayce Mauricio The obdulio [facility] HEMOGLOBIN AND HEMATOCRIT 2022-04-26 20:28:[address] [facility] POCT-GLUCOSE METER 2022-04-26 17:25:00 [facility] PREPARE PLASMA 2022-04-26 11:43:00 Gus Brito [facility] XR CHEST 1 VIEW PORTABLE / 2022-04-26 11:41:00 Odilia Alaniz [facility] OXYGEN SATURATION, 2022-04-26 11:24:00 [facility] BLOOD GAS, ARTERIAL 2022-04-26 11:06:00 Odilia Alaniz [facility] CBC (HEMOGRAM ONLY) 2022-04-26 10:52:[address] [facility] BASIC METABOLIC PANEL 2022-04-26 10:52:00 Corbin [facility] MAGNESIUM 2022-04-26 10:52:00 Corbin [facility] PHOSPHORUS 2022-04-26 10:52:00 Corbin [facility] CALCIUM, IONIZED 2022-04-26 10:52:00 [facility] LACTIC ACID, ARTERIAL 2022-04-26 10:52:00 [facility] PT/APTT 2022-04-26 10:52:00 Odilia Alaniz [facility] FIBRINOGEN 2022-04-26 10:52:[address] [facility] TRANSFUSE LEUKO-REDUCED 2022-04-26 09:34:00 Jayce Mauricio [facility] RED BLOOD CELLS [facility] RRL CRITICAL LABS 2022-04-26 09:12:15 Tabitha Barron [facility] (ABG,NA,K,H&H,GLUCOSE) Medical C enter CALCIUM, IONIZED 2022-04-26 09:12:15 Tabitha Barron [facility] BLOOD GAS, ARTERIAL 2022-04-26 09:12:15 Tabitha Barron [facility] SODIUM NA-STAT LAB 2022-04-26 09:12:15 Tabitha Barron [facility] POTASSIUM-STAT LAB 2022-04-26 09:12:15 Tabitha Barron [facility] GLUCOSE-STAT LAB 2022-04-26 09:12:15 Tabitha Barron [facility] HGB/HCT (H&H) - STAT LAB 2022-04-26 09:12:15 Tabitha Barron [facility] THORACOTOMY 2022-04-26 08:27:00 Gus Brito [facility] POCT-GLUCOSE METER 2022-04-26 05:49:00 Sissy Plascencia [facility] BASIC METABOLIC PANEL 2022-04-26 02:04:00 Arnulfo Duarte [facility] MAGNESIUM 2022-04-26 02:04:00 GeraldArnulfo burch [facility] PHOSPHORUS 2022-04-26 02:04:00 Gerald [facility] CBC (HEMOGRAM ONLY) 2022-04-26 02:04:00 Gerald [facility] CALCIUM, IONIZED 2022-04-26 02:04:00 Clyde Mix [facility] XR CHEST 1 VIEW PORTABLE / 2022-04-26 01:47:00 Odilia Alaniz [facility] PREPARE RBC 2022-04-25 23:54:00 BritoGus bruce [facility] PREPARE PLATELETS 2022-04-25 23:54:00 BritoGus bruce [facility] PREPARE CRYOPRECIPITATE 2022-04-25 23:54:00 BritoGus bruce [facility] POCT-GLUCOSE METER 2022-04-25 23:50:00 Temo [facility] BASIC METABOLIC PANEL 2022-04-25 18:27:00 Iginiamre, [facility] LACTIC ACID, ARTERIAL 2022-04-25 18:27:00 [facility]XY[facility], 2022-04-25 18:27:00 [facility] HEMOGLOBIN AND HEMATOCRIT 2022-04-25 18:27:00 [facility] POCT-GLUCOSE METER 2022-04-25 16:29:00 Temo [facility] POCT-GLUCOSE METER 2022-04-25 13:09:00 Tem[facility] CBC (HEMOGRAM ONLY) 2022-04-25 13:07:00 Odilia Alaniz [facility] PT/APTT 2022-04-25 13:07:[address] [facility] FIBRINOGEN 2022-04-25 13:07:[address] [facility] CT CHEST WITHOUT IV 2022-04-25 10:14:00 Odilia Alaniz [facility] CBC (HEMOGRAM ONLY) 2022-04-25 09:33:00 Odilia Alaniz [facility] POCT-GLUCOSE METER 2022-04-25 08:07:00 Temo [facility] HEMATOCRIT-STAT LAB 2022-04-25 06:42:00 Arnulfo Duarte [facility] POCT-GLUCOSE METER 2022-04-25 05:58:00 [facility] / 2022-04-25 05:37:00 Jayce Mauricio The obdulio [facility] ME INSERT 2022-04-25 05:10:52 Sloane, Alextyrell Polycarp [facility] CATH,ART,PERCUT,SHORTTERM [facility] LACTIC ACID, VENOUS 2022-04-25 04:24:00 Jayce Mauricio Asha [facility] BLOOD GAS, VENOUS 2022-04-25 04:24:00 Luly Usegeno [facility] PROTHROMBIN TIME/INR 2022-04-25 03:48:00 Jayce Mauricio [facility] APTT 2022-04-25 03:48:00 Jayce Mauricio [facility] FIBRINOGEN 2022-04-25 03:48:00 Jayce Mauricio [facility] BASIC METABOLIC PANEL 2022-04-25 03:06:00 Gerald, [facility] MAGNESIUM 2022-04-25 03:06:00 Gerald [facility] PHOSPHORUS 2022-04-25 03:06:00 [facility] CBC (HEMOGRAM ONLY) 2022-04-25 03:06:00 [facility] CALCIUM, IONIZED 2022-04-25 03:06:00 Clyde Mix [facility] HEPATIC FUNCTION PANEL 2022-04-25 03:06:00 Jayce Mauricio [facility] POCT-GLUCOSE METER 2022-04-25 02:11:00 Tem[facility] XR CHEST 1 VIEW PORTABLE / 2022-04-25 01:42:00 Odilia Alaniz [facility] POCT-GLUCOSE METER 2022-04-24 23:52:00 Temo [facility] ECG 12-LEAD 2022-04-24 21:44:11 Unknown, Hl7 [facility] ECG 12-LEAD 2022-04-24 21:44:11 Unknown, Hl7 [facility] RRL CRITICAL LABS 2022-04-24 21:16:00 Odilia Alaniz [facility] (ABG,NA,K,H&H,GLUCOSE) Medical C enter BLOOD GAS, ARTERIAL 2022-04-24 21:16:00 Le, [facility] SODIUM NA-STAT LAB 2022-04-24 21:16:00 Le, [facility] POTASSIUM-STAT LAB 2022-04-24 21:16:00 Le, [facility] GLUCOSE-STAT LAB 2022-04-24 [facility] - STAT LAB 2022-04-24 21:16:00 [facility] CALCIUM, IONIZED 2022-04-24 19:59:00 [place], [facility] LACTIC ACID, ARTERIAL 2022-04-24 19:59:00 [place], [facility] RRL CRITICAL LABS 2022-04-24 19:59:00 [facility] (ABG,NA,K,H&H,GLUCOSE) Medical C enter BLOOD GAS, ARTERIAL 2022-04-24 19:59:00 Le, [facility] SODIUM NA-STAT LAB 2022-04-24 19:59:00 Le, [facility] POTASSIUM-STAT LAB 2022-04-24 19:59:00 Le, [facility] GLUCOSE-STAT LAB 2022-04-24 19:59[facility] - [facility] LAB 2022-04-24 19:59:00 [facility] BASIC METABOLIC PANEL 2022-04-24 19:52:00 [place], [facility] MAGNESIUM 2022-04-24 19:52:00 [place], [facility] CBC W/PLT COUNT & AUTO 2022-04-24 18:05:00 Gerald [facility] RRL CRITICAL LABS 2022-04-24 18:05:00 [facility], [facility] (ABG,NA,K,H&H,GLUCOSE) Medical C enter BLOOD GAS, ARTERIAL 2022-04-24 18:05:00 [facility], [facility] SODIUM NA-STAT LAB 2022-04-24 18:05:00 [facility], [facility] POTASSIUM-STAT LAB 2022-04-24 18:05:00 [facility], [facility] GLUCOSE-STAT LAB 2022-04-24 18:05:00 [facility], [facility] HGB/HCT (H&H) - STAT LAB 2022-04-24 18:05:00 [facility], [facility] CBC W/PLT COUNT & AUTO 2022-04-24 18:05:00 Arnulfo Duarte [facility] (CELLAVISION MANUAL DIFF) 2022-04-24 18:05:00 GeraldArnulfo burch [facility] XR CHEST 1 VIEW PORTABLE / 2022-04-24 15:54:00 [facility] PROTHROMBIN TIME/INR 2022-04-24 15:47:00 [facility], [facility] APTT 2022-04-24 15:47:00 [facility], [facility] FIBRINOGEN 2022-04-24 15:47:00 [facility] OXYGEN SATURATION, 2022-04-24 15:47:00 [facility], [facility] LACTIC ACID, ARTERIAL 2022-04-24 15:47:00 [facility], [facility] CALCIUM, IONIZED 2022-04-24 15:46:00 [facility], [facility] CBC (HEMOGRAM ONLY) 2022-04-24 15:46:00 Clyde Mix [facility] BASIC METABOLIC PANEL 2022-04-24 15:46:00 Arnulfo Duarte [facility] BLOOD GAS, ARTERIAL 2022-04-24 15:46:00 Gerald [facility] MAGNESIUM 2022-04-24 15:46:00 Gerald, [facility] PHOSPHORUS 2022-04-24 15:46:00 Gerald, [facility] ANESTHESIA PERIPHERAL 2022-04-24 14:49:53 [facility] TRANSFUSE CRYOPRECIPITATE 2022-04-24 13:50:00 James [facility] RRL CRITICAL LABS 2022-04-24 13:47:20 James [facility] (ABG,NA,K,H&H,GLUCOSE) [facility] enter CALCIUM, IONIZED 2022-04-24 13:47:[address] [facility] PROTHROMBIN TIME/INR 2022-04-24 13:47:20 James [facility] APTT 2022-04-24 13:47:20 [facility] 2022-04-24 13:47:20 James [facility] PLATELET COUNT 2022-04-24 13:47:20 Columbia [facility] BLOOD GAS, ARTERIAL 2022-04-24 13:47:20 James [facility] SODIUM NA-STAT LAB 2022-04-24 13:47:20 [facility] POTASSIUM-STAT LAB 2022-04-24 13:47:20 [facility] GLUCOSE-STAT LAB 2022-04-24 13:47:20 [place], [facility] HGB/HCT (H&H) - STAT LAB 2022-04-24 13:47:[address] [facility] POCT-ACT 2022-04-24 13:35:00 Temo [facility] PROTHROMBIN TIME/INR 2022-04-24 13:31:25 James [facility] FIBRINOGEN 2022-04-24 13:31:25 James [facility] POCT-ACT 2022-04-24 13:03:00 Sen, [facility] RRL CRITICAL LABS 2022-04-24 13:02:09 [facility] (ABG,NA,K,H&H,GLUCOSE) [facility] enter CALCIUM, IONIZED 2022-04-24 13:02:[address] [facility] PROTHROMBIN TIME/INR 2022-04-24 13:02:[address] [facility] APTT 2022-04-24 13:02:09 James [facility] FIBRINOGEN 2022-04-24 13:02:09 James [facility] BLOOD GAS, ARTERIAL 2022-04-24 13:02:09 James [facility] SODIUM NA-STAT LAB 2022-04-24 13:02:09 James [facility] POTASSIUM-STAT LAB 2022-04-24 13:02:09 James [facility] GLUCOSE-STAT LAB 2022-04-24 13:02:[address] [facility] HGB/HCT (H&H) - STAT LAB 2022-04-24 13:02:[address] [facility] TRANSFUSE LEUKO-REDUCED 2022-04-24 12:50:[address] [facility] PO[facility]-ACT 2022-04-24 12:02:00 Temo [facility] RRL CRITICAL LABS 2022-04-24 11:59:47 Odilia Alaniz [facility] (ABG,NA,K,H&H,GLUCOSE) Medical C enter BLOOD GAS, ARTERIAL 2022-04-24 11:59:47 sEsie [facility] SODIUM NA-STAT LAB 2022-04-24 11:59:47 [facility]OT[facility] 2022-04-24 11:59:47 [facility] GLUCOSE-STAT LAB 2022-04-24 11:59:47 [facility]&H) - STAT LAB 2022-04-24 11:59:47 [facility] PO[facility]-ACT 2022-04-24 11:32:00 Temo [facility] RRL CRITICAL LABS 2022-04-24 11:29:33 Odilia Alaniz [facility] (ABG,NA,K,H&H,GLUCOSE) Medical C enter BLOOD GAS, ARTERIAL 2022-04-24 11:29:33 Essie [facility] SODIUM NA-STAT LAB 2022-04-24 11:29:33 [facility] POTASSIUM-STAT LAB 2022-04-24 11:29:33 Essie [facility] GLUCOSE-STAT LAB 2022-04-24 11:29:33 [facility] (H&H) - STAT LAB 2022-04-24 11:29:33 [facility] MISCELLANEOUS LAB ORDER 2022-04-24 11:23:11 Angel Ramirez [facility] PLATELET COUNT 2022-04-24 11:23:11 [facility] RRL [facility]ITICAL LABS 2022-04-24 11:00:10 Odilia Alaniz [facility] (ABG,NA,K,H&H,GLUCOSE) Medical C enter BLOOD GAS, ARTERIAL 2022-04-24 11:00:10 Essie, [facility] SODIUM NA-STAT LAB 2022-04-24 11:00:10 [facility] POTASSIUM-STAT LAB 2022-04-24 11:00:10 [facility] GLUCOSE-STAT LAB 2022-04-24 11:00:10 [facility] HGB/HCT (H&H) - STAT LAB 2022-04-24 11:00:10 , [facility] TRANSFUSE LEUKO-REDUCED 2022-04-24 11:00:00 Angel Ramirez [facility] RED BLOOD CELLS [facility] POCT-ACT 2022-04-24 10:52:00 Temo [facility] RRL CRITICAL LABS 2022-04-24 10:50:28 Odilia Alaniz [facility] (ABG,NA,K,H&H,GLUCOSE) Medical C enter BLOOD GAS, ARTERIAL 2022-04-24 10:50:28 Essie, [facility] SODIUM NA-STAT LAB 2022-04-24 10:50:28 [facility] POTASSIUM-STAT LAB 2022-04-24 10:50:28 [facility] GLUCOSE-STAT LAB 2022-04-24 10:50:28 [facility] HGB/HCT (H&H) - STAT LAB 2022-04-24 10:50:28 [facility] ANESTHESIA LARS 2022-04-24 10:43:26 Radha Becerril [facility] POCT-ACT 2022-04-24 10:23:00 Temo [facility] RRL CRITICAL LABS 2022-04-24 10:22:17 Odilia Alaniz [facility] (ABG,NA,K,H&H,GLUCOSE) Medical C enter BLOOD GAS, ARTERIAL 2022-04-24 10:22:17 [facility] SODIUM NA-STAT LAB 2022-04-24 10:22:17 [facility] POTASSIUM-STAT LAB 2022-04-24 10:22:17 Essie, [facility] GLUCOSE-STAT LAB 2022-04-24 10:22:17 [facility] (H&H) - STAT LAB 2022-04-24 10:22:17 Essie, [facility] POCT-ACT 2022-04-24 09:25:00 Sen Sissy [facility] TRANSFUSE LEUKO-REDUCED 2022-04-24 08:34:00 Jayce Mauricio [facility] RED BLOOD CELLS [facility] RRL CRITICAL LABS 2022-04-24 08:01:56 James [facility] (ABG,NA,K,H&H,GLUCOSE) [facility] enter CALCIUM, IONIZED 2022-04-24 08:01:[address] [facility] BLOOD GAS, ARTERIAL 2022-04-24 08:01:56 James [facility] SODIUM NA-STAT LAB 2022-04-24 08:01:56 James [facility] POTASSIUM-STAT LAB 2022-04-24 08:01:56 James [facility] GLUCOSE-STAT LAB 2022-04-24 08:01:[address] [facility] HGB/HCT (H&H) - STAT LAB 2022-04-24 08:01:[address] [facility] REPAIR, MITRAL VALVE 2022-04-24 07:14:00 BritoGus [facility] REPAIR, TRICUSPID VALVE 2022-04-24 07:14:00 BritoGus [facility] ABLATION,RADIOFREQUENCY 2022-04-24 07:14:00 BritoGus [facility] CARDIAC-THORASCOPIC/ Medical Kia ter LAPAROSCOPIC APPROACH THORACOTOMY 2022-04-24 07:14:00 Gus Brito [facility] MAZE PROCEDURE, USING 2022-04-24 07:14:00 Gus Brito [facility] RADIOFREQUENCY ABLATION [facility] ECHOCARDIOGRAM, 3D, 2022-04-24 07:14:00 Gus Brito [facility] TRANSESOPHAGEAL [facility] SARS-COV2/RT-PCR ([facility] & 2022-04-24 00:14:00 Clyde Mix [facility] REF LABS) [facility] ECG 12-LEAD 2022-04-23 20:45:18 Anay Lemus [facility] ECG 12-LEAD 2022-04-23 20:45:18 Unknown, Hl7 [facility] ECG 12-LEAD 2022-04-23 20:44:44 Unknown, Hl7 [facility] ABORH, MANUAL 2022-04-23 18:26:00 Sonia Still [facility] PROTHROMBIN TIME/INR 2022-04-23 18:25:00 Anay Lemus [facility] APTT 2022-04-23 18:25:00 Anay Lemus [facility] CBC W/PLT COUNT & AUTO 2022-04-23 18:25:00 Anay Lemus [facility] S t [facility] DIFFERENTIAL [facility] CBC W/PLT COUNT & AUTO 2022-04-23 18:25:00 Anay Lemus [facility] S t [facility] DIFFERENTIAL [facility] R & L CATH / CORONARY 2022-04-23 09:59:00 Sissy Plascencia [facility] ANGIOS (+/- LV) [facility] ECG 12-LEAD 2022-04-23 07:57:40 Shahana Plascenciayanka [facility] CARDIAC CATH REPORT - SCAN 2022-04-23 00:00:00 Oscar Riddle [facility] PROTHROMBIN TIME/INR 2022-04-22 11:13:00 Hamzah Forman [facility] COMPREHENSIVE METABOLIC 2022-04-22 11:13:[address] [facility] [facility] PANEL [facility] CBC W/PLT COUNT & AUTO 2022-04-22 11:13:00 Hamzah Forman [facility] DIFFERENTIAL [facility] B-TYPE NATRIURETIC FACTOR 2022-04-22 11:13:[address] Ham[address]an [facility] (BNP) [facility] TYPE AND SCREEN, AUTOMATED 2022-04-22 11:13:00 Hamzah Forman [facility] CBC W/PLT COUNT & AUTO 2022-04-22 11:13:00 Hamzah Forman [facility] DIFFERENTIAL [facility] SARS-COV2/RT-PCR ([facility] & 2022-04-22 10:53:[address] [facility] REF LABS) [facility] CTA ABDOMEN & PELVIS 2022-04-16 09:00:00 Hamzah Forman [facility] CTA CHEST 2022-04-16 09:00:00 Hamzah Forman [facility] POCT-CREATININE 2022-04-16 08:45:00 Hamzah Forman [facility] CK 2013-06-29 10:52:00 [facility] Plan of Care Planned Activity Planned Date Details Comments Source Future Scheduled 2023-05-28 Tobacco Cessation [facility] Test 00:00:00 [facility] r Screening (12+) [code = Tobacco Cessation Counseling and Screening (12+)] Future Scheduled 2023-01-23 SHINGLES VACCINES (1 Met [facility] Test 19:35:05 of 2) [code = SHINGLES VACCINES (1 of 2)] Future Scheduled 2023-01-23 65+ PNEUMOCOCCAL Methodi [facility] Test 19:35:05 VACCINE (1 - PCV) [code = 65+ PNEUMOCOCCAL VACCINE (1 - PCV)] Future Scheduled 2023-01-23 COVID-19 VACCINE (3 - [facility] Test 19:35:05 Booster for Pfizer series) [code = COVID-19 VACCINE (3 - Booster for Pfizer series)] Future Scheduled 2023-01-23 INFLUENZA VACCINE [facility] Hospital Test 19:35:05 [code = INFLUENZA VACCINE] Future Scheduled 2022-08-22 SHINGLES VACCINES (1 Met [facility] Test 20:41:35 of 2) [code = SHINGLES VACCINES (1 of 2)] Future Scheduled 2022-08-22 65+ PNEUMOCOCCAL [facility] Hospital Test 20:41:35 VACCINE (1 - PCV) [code = 65+ PNEUMOCOCCAL VACCINE (1 - PCV)] Future Scheduled 2022-08-22 COVID-19 [facility]ACCINE ([facility] 20:41:35 Booster for Pfizer series) [code = COVID-19 VACCINE (3 - Booster for Pfizer series)] Future Scheduled 2022-08-22 INFLUENZA VACCINE [facility] Test 20:41:35 [code = INFLUENZA VACCINE] Future Scheduled 2022-08-22 HEPATITIS B VACCINES Met [facility] Test 20:41:35 (1 of 3 - 3-dose series) [code = HEPATITIS B VACCINES (1 of 3 - 3-dose series)] Future Scheduled 2022-08-22 SHINGLES VACCINES (1 Met [facility] Test 20:41:35 of 2) [code = SHINGLES VACCINES (1 of 2)] Future Scheduled 2022-08-22 65+ PNEUMOCOCCAL [facility] Hospital Test 20:41:35 VACCINE (1 - PCV) [code = 65+ PNEUMOCOCCAL VACCINE (1 - PCV)] Future Scheduled 2022-08-22 COVID-19 VACCINE (3 - [facility] Test 20:41:35 Booster for Pfizer series) [code = COVID-19 VACCINE (3 - Booster for Pfizer series)] Future Scheduled 2022-08-22 INFLUENZA VACCINE [facility] Hospital Test 20:41:35 [code = INFLUENZA VACCINE] Future Scheduled 2022-08-22 HEPATITIS B VACCINES Met [facility] Test 20:41:35 (1 of 3 - 3-dose series) [code = HEPATITIS B VACCINES (1 of 3 - 3-dose series)] Future Scheduled 2022-06-19 INFLUENZA VACCINE (#1) C [...] Department ID 2022-04-10 Inpatient GUS FONSECA Surgery [id number] SLE 09:11:07 2022-06-09 2022-06-09 Telephone Kamran [facility] [id number] 00:[facility]00 00:00:00 [facility] 2022-05-28 2022-05-28 Office Gus Brito [facility] [id number] 10:00:00 10:15:00 Visit Florina [facility] 2022-05-28 2022-05-[address] [facility] [id number] SLE 09:34:35 09:34:35 2022-05-28 2022-05-28 Outpatient [facility] [id number] SLE 00:00:00 00:00:00 2022-05-19 2022-05-19 Orders Meryl Heatonen [facility] [id number] 00:00:00 00:00:00 Only [facility] 2022-04-23 2022-05-06 Inpatient GUS FONSECA [facility] Surgery [id number] SLE 06:47:00 11:59:00 2022-04-23 2022-05-06 Hospital Sissy Benedict [facility] [id number] [facility] 06:47:00 11:59:00 Encounter Raymond Jj Marc R [facility] 2022-04-26 2022-04-26 Surgery Gus Brito [facility] [id number] 08:00:00 11:51:00 [facility] 2022-04-26 2022-04-26 Anesthesia Anderson [facility] [id number] 08:35:00 10:44:[address] [facility] 2022-04-24 2022-04-24 Outpatient BCM BCM [id number] [facility] 00:00:00 23:59:00 [facility] 2022-04-24 2022-04-24 Anesthesia Angel Ramirez [facility] [id number] [facility] 07:35:00 15:21:00 Event TejJuan [facility] 2022-04-24 2022-04-24 Surgery Gus Brito [facility] [id number] 07:30:00 14:19:00 [facility] 2022-04-23 2022-04-23 Surgery Temo [facility] [id number] 11:20:00 13:33:00 [facility] 2022-04-23 2022-04-23 Outpatient BCM BC [id number] [facility] 06:47:00 06:47:00 [facility] 2022-04-23 2022-04-23 Outpatient BCM BCM [id number] [facility] 06:47:00 06:47:00 [facility] 2022-04-22 2022-04-22 Outpatient [facility] [id number] SLE 14:56:24 23:59:00 2022-04-22 2022-04-22 [facility] [id number] 14:30:00 23:59:00 [facility] 2022-04-22 2022-04-22 Outpatient [facility] [id number] SLE 10:32:04 10:32:04 2022-04-22 2022-04-22 Office EL Temo Sissy [facility] [id number] 10:00:00 10:15:00 Visit Moody [facility] 2022-04-16 2022-04-16 Outpatient STAS COLUNGA [facility] [id number] [facility]SL 07:50:52 23:59:00 HAMZAH 2022-04-16 2022-04-16 [facility] [id number] 07:50:52 23:59:00 Encounter Hamzah Correia [facility] 2022-04-16 2022-04-16 Outpatient STAS COLUNGA [facility] [id number] [facility] 07:49:57 07:49:57 HAMZAH 2022-04-16 2022-04-16 [facility] [id number] 07:49:57 07:49:57 Encounter [facility] 2022-04-10 2022-04-10 [facility] [id number] 00:00:00 00:00:00 Only [facility]ah [facility] 2022-04-09 2022-04-09 Office Gus Brito [facility] [id number] 10:30:00 11:00:00 Visit Hamzah Forman [facility] 2022-04-09 2022-04-09 Outpatient MIMI FORMAN [facility] SLE [id number] SLE 10:17:18 10:17:18 HAMZAH 2022-04-02 2022-04-02 Outpatient JANIS ValladaresDOMINIC OUTD [id number] [facility] 05:16:00 05:16:00 Chace 80 [facility] 2022-04-02 2022-04-02 Outpatient JANIS ValladaresDOMINIC BRUCECL [id number] [facility] 05:16:00 05:16:00 Chace [id number] [facility] 2021-02-08 2021-02-08 Outpatient MARCO CISNEROS [facility] [id number] Univers 15:00:00 15:00:00 MARCO IRENE [facility] 2020-12-20 2020-12-20 Outpatient R MARIA VICTORIAMARCO Niño [facility] [id number] Univers 00:00:00 00:00:00 MARIA VICTORIAMARCO Niño russ [facility] 2020-11-24 2020-11-24 Outpatient [facility] [id number] [place] 00:00:00 00:00:[address] 2020-11-13 2020-11-13 Telephone Maria Victoria [facility] [id number] 00:00:00 00:00:00 Marco Gao [id number] [facility] [id number] Professio [id number] nal 2 [facility] 2020-11-03 2020-11-03 Outpatient [facility] [id number] [place] 00:00:00 00:00:[address] 2020-11-02 2020-11-02 Office Maria Victoria [facility] [id number] 14:12:48 16:16:50 Visit Marco Gao [id number] [facility] 4.2.7.2.686 Professio [id number] nal 092 [facility] 2020-11-02 2020-11-02 Outpatient R [facility] [id number] Univers 14:20:00 14:20:00 [facility] 2020-10-24 2020-10-24 Outpatient R MADELYN [facility] [id number] Univers 11:00:00 11:00:00 RONAN solano o [facility] 2020-09-11 2020-09-11 Outpatient R MARIA VICTORIA, MARCO [facility] [id number] Univers 15:00:00 15:00:00 MARCO IRENE [facility] 2020-08-19 2020-08-19 Emergency X KIANNA [facility] ERT [id number] Univers 09:20:00 09:20:00 IVAN solano [facility] 2020-05-23 2020-05-23 Outpatient HUST, [facility] [id number] [place] 00:00:00 00:00:00 DANE [address] 2020-05-23 2020-05-23 Outpatient MARIAN [facility] [id number] [place] 00:00:00 00:00:00 DANE [facility] Method i 2019-12-02 2019-12-02 Outpatient MICK Sanchez [id number] [facility] 12:15:00 12:15:00 Lobo [id number] [facility] 2013-06-29 2013-06-29 Outpatient ROYER COTTON [facility] [id number] [facility] 09:24:46 09:24:46 JILL avila of Medicin e Results Test Description Test Time Test Comments Results Result Comments Source POC-Glucose meter 2022-05-06 08:07:07 Test Item Value Reference Range Interpretation Comme nts POC-Glucose Meter (test code = 84 mg/dL 70-110 : TESTED AT [facility] [address] [facility] 1538) [facility], [facility] 30: Sewing Machine Adjuster/Techni juan ID = [id number] for Claudio, Adriana Lab Interpretation (test code = Normal 29460-8) [facility] [id number] 08:07:07 Test Item Value Reference Range Interpretation Comments POC-Glucose Meter (test 84 mg/dL 70-110 : TE STED AT [facility] code = 1538) [address] [place] [address], [facility] 30: Sewing Machine Adjuster/Techni juan ID = [id number] for Claudio, Adriana Lab Interpretation (test Normal code = 43795-3) [facility]-GLUCOSE [id number] 08:07:07 Test Item Value Reference Range Interpretation Comments POC-GLUCOSE METER 84 mg/dL 70-110 : TESTED A T [facility] 67[address] (BEAKER) (test code = BERTNE R [facility], 1538) [address]: Sewing Machine Adjuster/Techni juan ID = [id number] for Chandni os, Adriana RAD, CHEST, 1 VIEW, NON [id number] 07:22:00Reason for exam:->ptxShould this be performed at the bedside?->Yes [facility] 1935 Sex: FFINAL REPORT CLINICAL HISTORY: ptx TECHNIQUE: 1 view of the chest. COMPARISON: 05/05/2022 IMPRESSION: The small right pneumothorax is unchanged. Patchy bilateral lower lung opacities areunchanged. A trace right effusion is unchanged. The cardiomediastinal silhouette is unchanged. Signed: Luis Conklin MDReport Verified Date/Time: 05/06/2022 07:22:15 Reading Location: [facility] Radiology Reading Room BASIC METABOLIC [id number] 07:01:04 Test Item Value Reference Range Interpretation [...] S NOT APPLICABLE FOR DIALYSIS PATIEN TS. Sewing Machine Adjuster ID - DRAGAN [id number] 07:01:04 Test Item Value Reference Range Interpretation Comments MAGNESIUM (BEAKER) (test code = 1.9 mg/dL 1.6-2.6 627) Sewing Machine Adjuster ID Brooklynn ARCHIBALD [facility] (HEMOGRAM ONLY)2022-05-06 06:28:34 [...] 0-0 (BEAKER) (test code = 413) POCT-GLUCOSE [id number] 21:33:50 Test Item Value Reference Range Interpretation Comments POC-GLUCOSE METER 95 mg/dL 70-110 : TESTED A T [facility] 6720 (BEAKER) (test code = [facility], 1538) [address]: Sewing Machine Adjuster/Techni juan ID = [id number] for Sherri Haider POCT-GLUCOSE [id number] 17:00:08 Test Item Value Reference Range Interpretation Comments POC-GLUCOSE METER 123 mg/dL 70-110 H : TESTED A T [facility] 6720 (BEAKER) (test code = [facility], 1538) 07[address]: Sewing Machine Adjuster/Techni juan ID = [id number] for HU NTER, HIWITHA RAD, CHEST, 1 VIEW, NON [id number] 12:36:00Reason for exam:->R/o pneumothoraxShould this be performed at the bedside?->Yes [facility] 1935 Sex: FFINAL REPORT CLINICAL HISTORY: R/o pneumothorax TECHNIQUE: 1 view of the chest. COMPARISON: 05/04/2022 IMPRESSION: The small right pneumothorax is unchanged. Right chest wall subcutaneous emphysema is again seen. Mild bilateral lung opacities and small pleural effusions are unchanged. There is no significant cardiomegaly. Signed: [facility] Verified Date/Time: 05/05/2022 12:36:46 Reading Location: [facility] Radiology Reading Room POCT- GLUCOSE [id number] 11:51:51 Test Item Value Reference Range Interpretation Comments POC-GLUCOSE METER 76 mg/dL 70-110 : TESTED A T [facility] 6720 (SocialBuy) (test code = [facility], 1538) 97607: Sewing Machine Adjuster/Techni juan ID = [id number] for LEIGH ER, HIWITHA POCT-GLUCOSE [id number] 07:27:49 Test Item Value Reference Range Interpretation Comments POC-GLUCOSE METER 84 mg/dL 70-110 : TESTED A T [facility] 6720 (SocialBuy) (test code = [facility], 1538) 03791: Sewing Machine Adjuster/Techni juan ID = [id number] for LEIGH ER, HIWITHA BASIC METABOLIC [id number] 05:14:34 Test Item Value Reference Range Interpretation [...] S NOT APPLICABLE FOR DIALYSIS PATIEN TS. Sewing Machine Adjuster ID Brooklynn ARCHIBALD [id number] 05:14:34 Test Item Value Reference Range Interpretation Comments MAGNESIUM (BEAKER) (test code = 1.9 mg/dL 1.6-2.6 627) Sewing Machine Adjuster ID Brooklynn ARCHIBALD WCBC (HEMOGRAM ONLY)2022-05-05 04:29:36 [...] 0-0 (BEAKER) (test code = 413) POCT-GLUCOSE [id number] 21:48:26 Test Item Value Reference Range Interpretation Comments POC-GLUCOSE METER 97 mg/dL 70-110 : TESTED A T [facility] 6720 (BEAKER) (test code = [employer] [facility], 1538) 36203: Sewing Machine Adjuster/Techni juan ID = [id number] for Sherri Haider POCT-GLUCOSE [id number] 17:44:55 Test Item Value Reference Range Interpretation Comments POC-GLUCOSE METER 85 mg/dL 70-110 : TESTED A T [facility] 6720 (BEAKER) (test code = [employer] [facility], 1538) 35710: Sewing Machine Adjuster/Techni juan ID = [id number] for Birdie Betts RAD, CHEST, 1 VIEW, NON [id number] 14:47:00Reason for exam:->chest tube removalShould this be performed at the bedside?->Yes [facility] 1935 Sex: FFINAL REPORT Chest one [...] Ann Verified Date/Time: 05/04/2022 14:47:19 Reading Location: [address] Consult Reading Room POCT-GLUCOSE [id number] 12:27:08 Test Item Value Reference Range Interpretation Comments POC-GLUCOSE METER 93 mg/dL 70-110 : TESTED A T [facility] 6720 (BEAKER) (test code = [facility] [place], 1538) 54251: Sewing Machine Adjuster/Techni juan ID = [id number] for Birdie Betts RAD, CHEST, 1 VIEW, NON [id number] 09:09:00Reason for exam:->R/o pneumothoraxShould this be performed at the bedside?->Yes [facility] : 1935 Sex: FFINAL REPORT RAD, CHEST, 1 VIEW, NON DEPT INDICATION: R/o pneumothorax COMPARISON: Prior day's exam FINDINGS: Portable frontal view of the chest. IMPRESSION: Support Lines: Right chest tube. Lungs and pleura: Unchanged small right apical pneumothorax. Small right effusion. Heart and mediastinum: Stable contours. Additional findings: None. Signed: Kyara Marcus Verified Date/Time: 05/04/2022 09:09:00 POCT-GLUCOSE [id number] 08:56:25 Test Item Value Reference Range Interpretation Comments POC-GLUCOSE METER 118 mg/dL 70-110 H : TESTED Abimbola T [facility] 6720 (BEAKER) (test code = [facility], 1538) 39249: Sewing Machine Adjuster/Techni juan ID = [id number] for Birdie Alvarado BASIC METABOLIC [id number] 04:43:51 Test Item Value Reference Range Interpretation [...] S NOT APPLICABLE FOR DIALYSIS PATIEN TS. Sewing Machine Adjuster ID - DELLA [id number] 04:43:51 Test Item Value Reference Range Interpretation Comments MAGNESIUM (BEAKER) (test code = 1.7 mg/dL 1.6-2.6 627) Sewing Machine Adjuster ID - DELLA GCBC (HEMOGRAM ONLY)2022-05-04 04:09:42 [...] 0-0 (BEAKER) (test code = 413) POCT-GLUCOSE [id number] 21:36:15 Test Item Value Reference Range Interpretation Comments POC-GLUCOSE METER 123 mg/dL 70-110 H : TESTED A T [facility] 6720 (BEAKER) (test code = NIRMALSC Marlon [facility], 1538) 17682: Sewing Machine Adjuster/Techni juan ID = [id number] for Sherri Wiseman POCT-GLUCOSE [id number] 17:15:07 Test Item Value Reference Range Interpretation Comments POC-GLUCOSE METER 99 mg/dL 70-110 : TESTED A T [facility] 6720 (BEAKER) (test code = [facility] Marlon [facility], 1538) 09194: Sewing Machine Adjuster/Techni juan ID = [id number] for Birdie Betts RAD, CHEST, 1 VIEW, NON [id number] 13:29:00Reason for exam:->r/o pneumothoraxShould this be performed at the bedside?->Yes [facility] : 1935 Sex: FFINAL REPORT Chest one [...] Luna Ann Verified Date/Time: 05/03/2022 13:29:36Reading Location: [address] Consult Reading Room POCT- GLUCOSE [id number] 11:41:15 Test Item Value Reference Range Interpretation Comments POC-GLUCOSE METER 103 mg/dL 70-110 : TESTED A T [facility] 6720 (BEAKER) (test code = ELSI Mason [facility], 1538) 85957: Sewing Machine Adjuster/Techni juan ID = [id number] for Birdie Alvarado POCT-GLUCOSE [id number] 07:30:50 Test Item Value Reference Range Interpretation Comments POC-GLUCOSE METER 86 mg/dL 70-110 : TESTED A T [facility] 6720 (BEAKER) (test code = ELSI [facility], 1538) 05403: Sewing Machine Adjuster/Techni juan ID = [id number] for Birdie Betts [id number] 06:26:15 Test Item Value Reference Range Interpretation Comments MAGNESIUM (BEAKER) (test code = 1.9 mg/dL 1.6-2.6 627) Sewing Machine Adjuster ID - DELLA GBASIC METABOLIC [id number] 06:26:14 Test Item Value Reference Range Interpretation [...] S NOT APPLICABLE FOR DIALYSIS PATIEN TS. Sewing Machine Adjuster ID - DELLA GCBC (HEMOGRAM ONLY)2022-05-03 06:10:08 [...] 0-0 (BEAKER) (test code = 413) POCT-GLUCOSE [id number] 21:16:35 Test Item Value Reference Range Interpretation Comments POC-GLUCOSE METER 101 mg/dL 70-110 : [facility] (MIKEAKER[facility] (test code = ELSI [facility] [place], 1538) 82477: Sewing Machine Adjuster/Techni juan ID = [id number] for Sherri Wiseman POCT-GLUCOSE [id number] 16:51:48 Test Item Value Reference Range Interpretation Comments POC-GLUCOSE METER 83 mg/dL 70-110 : TESTED A T [facility] 6720 (DESIRE) (test code = [facility] [place], 1538) 82537: Sewing Machine Adjuster/Techni juan ID = [id number] for JEFFREY HALL 2D Echo W/Doppler(CW/PW/Color)2022-05-02 14:50:42Ejection FractionSLEH ECHO [facility] W/Doppler(CW/PW/Color)2022-05-02 14:50:42Ejection FractionSLE ECHO [facility], NON [id number] 14:10:00Reason for exam:->R/O pneumoShould this be performed at the bedside?->Yes[facility] : 1935 Sex: FFINAL REPORT Chest AP [...] size and vascularity. Signed: Jose Ramon Soares Verified Date/Time: 05/02/2022 14:10:15 Reading Location: [facility] Radiology Reading Room RAD, CHEST, 1 VIEW, NON [id number] 13:14:00Reason for exam:->s/p CT surgeryShould this be performed at the bedside?->Yes [facility] : 1935 Sex: FFINAL REPORT RAD, CHEST, [...] or small pleural effusion. Signed: Darwin Yang Verified Date/Time: 05/02/2022 13:14:45 Reading Location: [facility] Radiology Reading Room POCT-GLUCOSE [id number] 12:31:33 Test Item Value Reference Range Interpretation Comments POC-GLUCOSE METER 100 mg/dL 70-110 : TESTED A T [facility] 6720 (BEAKER) (test code = ELSI [facility] [place], 1538) 78614: Sewing Machine Adjuster/Techni juan ID = [id number] for Gabbi Roberts POCT-GLUCOSE [id number] 07:26:29 Test Item Value Reference Range Interpretation Comments POC-GLUCOSE METER 83 mg/dL 70-110 : TESTED A T [facility] 6720 (BEAKER) (test code = [facility] [place], 1538) 62910: Sewing Machine Adjuster/Techni juan ID = [id number] for JEFFREY HALL BASIC METABOLIC [id number] 06:08:27 Test Item Value Reference Range Interpretation [...] S NOT APPLICABLE FOR DIALYSIS PATIEN TS. Sewing Machine Adjuster ID - DRAGAN [id number] 06:08:27 Test Item Value Reference Range Interpretation Comments MAGNESIUM (BEAKER) (test code = 1.7 mg/dL 1.6-2.6 627) Sewing Machine Adjuster ID - DRAGAN WCBC (HEMOGRAM ONLY)2022-05-02 05:59:25 [...] 0-0 (BEAKER) (test code = 413) POCT-GLUCOSE [id number] 21:26:19 Test Item Value Reference Range Interpretation Comments POC-GLUCOSE METER 106 mg/dL 70-110 : TESTED A T [facility] 6720 (BEAKER) (test code = [facility], 153) 12729: Sewing Machine Adjuster/Techni juan ID = [id number] for JAVI SWENSON POCT-GLUCOSE [id number] 17:37:12 Test Item Value Reference Range Interpretation Comments POC-GLUCOSE METER 81 mg/dL 70-110 : TESTED A T [facility] 6720 (BEAKER) (test code = [facility], 153) 68279: Sewing Machine Adjuster/Techni juan ID = [id number] for WILL IAMS, TYNEKA POCT-GLUCOSE [id number] 11:46:18 Test Item Value Reference Range Interpretation Comments POC-GLUCOSE METER 100 mg/dL 70-110 : TESTED A T [facility] 6720 (BEAKER) (test code = [facility], 153) 56089: Sewing Machine Adjuster/Techni juan ID = [id number] for WI LLIAMS, TYNEKA RAD, CHEST, 1 VIEW, NON [id number] 10:08:00Reason for exam:->Shortness of breath after chest tube removal [facility] : 1935 Sex: FFINAL REPORT RAD, CHEST, [...] place.3.Small left pleural effusion. Signed: Darwin Albright [facility]ep[facility] Verified Date/Time: 05/01/2022 10:08:33 Reading Location: [facility] Radiology Reading Room RAD, CHEST, 1 VIEW, NON [id number] 09:40:00Reason for exam:->s/p CT surgeryShould this be performed at the bedside?->Yes [facility] : 1935 Sex: FFINAL REPORT RAD, CHEST, [...] the right chest wall Signed: Darwin Albright [facility] Verified Date/Time: 05/01/2022 09:40:35 Reading Location: [facility] Radiology Reading Room POCT-GLUCOSE [id number] 07:52:00 Test Item Value Reference Range Interpretation Comments POC-GLUCOSE METER 87 mg/dL 70-110 : TESTED A T [facility] 6720 (BEAKER) (test code = [facility], 1538) 15145: Sewing Machine Adjuster/Techni juan ID = [id number] for [facility] BASIC METABOLIC [id number] 05:35:18 Test Item Value Reference Range Interpretation [...] S NOT APPLICABLE FOR DIALYSIS PATIEN TS. Sewing Machine Adjuster ID - DELLA [id number] 05:35:18 Test Item Value Reference Range Interpretation Comments MAGNESIUM (BEAKER) (test code = 1.6 mg/dL 1.6-2.6 627) Sewing Machine Adjuster ID - DELLA GCBC (HEMOGRAM ONLY)2022-05-01 05:02:18 [...] 0-0 (BEAKER) (test code = 413) POCT-GLUCOSE [id number] 21:29:06 Test Item Value Reference Range Interpretation Comments POC-GLUCOSE METER 115 mg/dL 70-110 H : TESTED A T [facility] 6720 (BEAKER) (test code = [facility], 1538) 36202: Sewing Machine Adjuster/Techni juan ID = [id number] for REBECA SADLER SE POCT-GLUCOSE [id number] 17:31:57 Test Item Value Reference Range Interpretation Comments POC-GLUCOSE METER 94 mg/dL 70-110 : TESTED A T [facility] 6720 (BEAKER) (test code = [facility], 1538) 05087: Sewing Machine Adjuster/Techni juan ID = [id number] for Adriana Patel POCT-GLUCOSE [id number] 12:08:03 Test Item Value Reference Range Interpretation Comments POC-GLUCOSE METER 107 mg/dL 70-110 : TESTED A T [facility] 6720 (BEAKER) (test code = [facility], 1538) 90915: Sewing Machine Adjuster/Techni juan ID = [id number] for Bobby Denzel miriam RAD, CHEST, 1 VIEW, NON [id number] 08:33:00Reason for exam:->s/p CT surgeryShould this be performed at the bedside?->Yes [facility] : 1935 Sex: FFINAL REPORT CHEST AP PORTABLE Comparison exam: 04/29/2022 History provided: Follow-up after chest surgery Right chest tube unchanged in appearance. Right apical pneumothorax appears improved, currently estimated at 10-15% by volume. Basilar atelectatic change remains with small effusions. Subcutaneous emphysema on the right unchanged. Signed: Jose Ramon Soares Verified Date/Time: 04/30/2022 08:33:10 Reading Location: [facility] Diagnostic Imaging Reading Room - [address] POCT-GLUCOSE [id number] 07:37:15 Test Item Value Reference Range Interpretation Comments POC-GLUCOSE METER 107 mg/dL 70-110 : TESTED A T [facility] 6720 (DESIRE) (test code = [facility] [place], 1538) 60895: Sewing Machine Adjuster/Techni juan ID = [id number] for Denzel Rosales RAD, CHEST, 1 VIEW, NON [id number] 22:45:00Reason for exam:->post CT removal Should this be performed at the bedside?->Yes [facility] : 1935 Sex: FFINAL REPORT EXAM: Chest one view COMPARISON: April 29, 2022 CLINICAL HISTORY: Chest tube removal FINDINGS: The right chest tube appears unchanged in position. There is interval improvement in the right apical pneumothorax. Subcutaneous emphysema of the right chest wall again noted. Thecardiac size is within normal limits. The regional osseous structures are unchanged. Signed: Curtis Garza Verified Date/Time: 04/29/2022 22:45:51 RAD, CHEST, 1 VIEW, NON [id number] 22:36:00Reason for exam:->right pleural chest tube removalShould this be performed at the bedside?->Yes [facility] : 1935 Sex: FFINAL REPORT EXAM: Chest one view COMPARISON: April 29, 2022 CLINICAL HISTORY: Rightchest tube removal FINDINGS: The right chest tube is again noted without interval change in position. There is interval worsening in the right apical pneumothorax. Subcutaneous emphysema is again notedin the right chest wall. The cardiac size is within normal limits. The left lung is clear. The regional osseous structures are unremarkable. Signed: Curtis Garza MDReport Verified Date/Time: 04/29/2022 22:36:37 POCT-GLUCOSE [id number] 21:32:06 Test Item Value Reference Range Interpretation Comments POC-GLUCOSE METER 107 mg/dL 70-110 : TESTED A [facility] [employer] 6720 ([employer]) (test code = [facility], 1538) 14038: Sewing Machine Adjuster/Techni juan ID = [id number] for GALEN SANCHES POCT-GLUCOSE [id number] 16:27:06 Test Item Value Reference Range Interpretation Comments POC-GLUCOSE METER 79 mg/dL 70-110 : TESTED A T [facility] 6720 ([employer]) (test code = [facility], 1538) 15975: Sewing Machine Adjuster/Techni juan ID = [id number] for Joselin Kylee RAD, CHEST, 1 VIEW, NON [id number] 11:48:00Reason for exam:->post opShould this be performed at the bedside?->Yes [facility] : 1935 Sex: FFINAL REPORT RAD, CHEST, [...] in place.2.Small left pleural effusion. Signed: Darwin Albright Verified Date/Time: 04/29/2022 11:48:25 Reading Location: [facility] Radiology Reading Room -GLUCOSE [id number] 11:10:43 Test Item Value Reference Range Interpretation Comments POC-GLUCOSE METER 80 mg/dL 70-110 : TESTED A T [facility] 6720 ([facility]) (test code = [facility], 1538) 74474: Sewing Machine Adjuster/Techni juan ID = [id number] for Joie Welch CBC W/PLT COUNT & AUTO [id number] 09:22:21 Test Item Value Reference Range Interpretation [...] CONCENTRATION Adequate (CELLAVISION)(BEAKER) (test code = 3438) Sewing Machine Adjuster ID - Noel comments: Slide comments:POCT-GLUCOSE [id number] 07:10:50 Test Item Value Reference Range Interpretation Comments POC-GLUCOSE METER 91 mg/dL 70-110 : TESTED A T [facility] 6720 (BEAKER) (test code = [facility] [place], 1538) 73698: Sewing Machine Adjuster/Techni juan ID = [id number] for Armaan charles (contract)Angelo BASIC METABOLIC [id number] 04:56:58 Test Item Value Reference Range Interpretation [...] S NOT APPLICABLE FOR DIALYSIS PATIEN TS. Sewing Machine Adjuster ID - PIPAVAN [id number] 04:56:58 Test Item Value Reference Range Interpretation Comments MAGNESIUM (BEAKER) (test code = 1.7 mg/dL 1.6-2.6 627) Sewing Machine Adjuster ID - PIPAVAN [id number] 04:56:58 Test Item Value Reference Range Interpretation Comments PHOSPHORUS (BEAKER) (test code = 2.5 mg/dL 2.3-4.7 604) Sewing Machine Adjuster ID - PIPAVAN LCALCIUM, [id number] 04:51:14 Test Item Value Reference Range Interpretation Comments CALCIUM IONIZED (BEAKER) (test 1.16 mmol/L 1.12-1.27 code = 698) PH, BLOOD (BEAKER) (test code = 7.38 1810) POCT-GLUCOSE [id number] 01:42:33 Test Item Value Reference Range Interpretation Comments POC-GLUCOSE METER 82 mg/dL 70-110 : TESTED A T [facility] 6720 (BEAKER) (test code = [facility] [place], 1538) 32169: Sewing Machine Adjuster/Techni juan ID = [id number] for Scarlett Matthews POCT-GLUCOSE [id number] 16:36:01 Test Item Value Reference Range Interpretation Comments POC-GLUCOSE METER 85 mg/dL 70-110 : TESTED A T [facility] 6720 (BEAKER) (test code = ELSI Mason [facility], 1538) 19920: Sewing Machine Adjuster/Techni juan ID = [id number] for STARLA RSON, ZANE RAD, CHEST, 1 VIEW, NON [id number] 15:36:00Reason for exam:->assess for R ptx after chest tubes place to water seal in setting of air leakShould this be performed at the bedside?->Yes [facility] : 1935 Sex: FAddendum BeginsREPORT STATUS:A The above findings were discussed with nurse Shereen Chaney, who acknowledged the findings, on 04/28/2022 at 3:33 PM. Signed: Darwin Alrbight VerifiedDate/Time: 04/28/2022 15:36:39 Reading Location: [facility] Radiology Reading RoomAddendum EndsFINAL REPORT RAD, CHEST, [...] Albright Verified Date/Time: 04/28/2022 15:33:04 Reading Location: [facility] Radiology Reading Room POCT-GLUCOSE [id number] 12:00:43 Test Item Value Reference Range Interpretation Comments POC-GLUCOSE METER 88 mg/dL 70-110 : Notified RN/: TESTED (DESIRE) (test code = AT [facility] 6720 GE 1538) [place], [address]: Sewing Machine Adjuster/Techni juan ID = [id number] for Luna Browne RAD, CHEST, 1 VIEW, NON [id number] 09:43:00Reason for exam:->post opShould this be performed at the bedside?->Yes [facility] : 1935 Sex: FFINAL REPORT RAD, CHEST, 1 VIEW, NON DEPT INDICATION: post op COMPARISON: Prior day's exam TECHNIQUE: Portable frontal view of the chest. FINDINGS: Support Lines and Devices: The right IJ Winthrop-Albert catheter was removed. Lungs and pleura: Unchanged airspace and pleural opacities. No pneu mothorax identified. Heart and mediastinum: Stable contours. Stable surgical changes. Additional findings: None. IMPRESSION: 1.Two right-sided chest tubes without pneumothorax identified.2.Left retrocardiac opacity, representing singly or in combination airspace disease, atelectasis, or pleural effusion.3.Small left pleural effusion. Signed: Darwin Albright MDReport Verified Date/Time: 04/28/2022 09:43:34 Reading Location: [facility] Radiology Reading Room CBC W/PLT COUNT & AUTO [id number] 07:27:01 Test Item Value Reference Range Interpretation Comments WHITE BLOOD CELL COUNT (DESIRE) 14.7 K/ L 3.5-10.5 H (test code [...] CONCENTRATION Decreased (CELLAVISION)(BEAKER) (test code = 3438) Sewing Machine Adjuster ID Brooklynn Diggs Dato-onUser comments: Slide comments:[id number] 04:46:08 Test Item Value Reference Range Interpretation Comments PHOSPHORUS (BEAKER) 2.2 mg/dL 2.3-4.7 L Specimen slightly (test code = 604) hemolyzed Sewing Machine Adjuster ID Brooklynn ARCHIBALD WBASIC METABOLIC [id number] 04:46:08 Test Item Value Reference Range Interpretation [...] S NOT APPLICABLE FOR DIALYSIS PATIEN TS. Sewing Machine Adjuster ID - DRAGAN [id number] 04:46:07 Test Item Value Reference Range Interpretation Comments MAGNESIUM (BEAKER) 2.0 mg/dL 1.6-2.6 Specimen slightly (test code = 627) hemolyzed Sewing Machine Adjuster ID - DRAGAN ABREUALCIUM, [id number] 04:06:50 Test Item Value Reference Range Interpretation Comments CALCIUM IONIZED (BEAKER) (test 1.17 mmol/L 1.12-1.27 code = 698) PH, BLOOD (BEAKER) (test code = 7.35 1810) POCT-GLUCOSE [id number] 00:18:38 Test Item Value Reference Range Interpretation Comments POC-GLUCOSE METER 105 mg/dL 70-110 : TESTED A T [facility] 6720 (BEAKER) (test code = [facility], 1538) 70033: Sewing Machine Adjuster/Techni juan ID = [id number] for Bubba marcus (contract) Janet kim Lilian [id number] 23:54:00 Test Item Value Reference Range Interpretation Comments CROSSMATCH (test code = 2264) COMPATIBLE Unit ABO (test code = O Pos 3608964) UNIT NUMBER (test code = [id number] 934-0) Status (test code = 1632101) [place]INC[facility] Blood Bank Product (test code RED BLOOD CELLS = 2263) PRODUCT CODE (test code = L4941U75 933-2) [facility] [id number] 23:54:00 Test Item Value Reference Range Interpretation Comments CROSSMATCH (test code = 2264) COMPATIBLE Unit ABO (test code = O Pos 9114208) UNIT NUMBER (test code = [id number] 934-0) Status (test code = 5864062) TX_TIMEINCHART Blood Bank Product (test code RED BLOOD CELLS = 2263) PRODUCT CODE (test code = O1474W41 933-2) [facility] HospitalPO[facility] [id number] 18:08:29 Test Item Value Reference Range Interpretation Comments POC-GLUCOSE METER 163 mg/dL 70-110 H : TESTED A T [facility] 6720 (BEAKER) (test code = [facility], 1538) 03807: Sewing Machine Adjuster/Techni juan ID = [id number] for Mckay llaa (contract)Felix POCT-GLUCOSE [id number] 11:14:41 Test Item Value Reference Range Interpretation Comments POC-GLUCOSE METER 144 mg/dL 70-110 H : Notified RN/MD: (BEAKER) (test code = TESTED AT [facility] 2993 0698) [place], [address]: Sewing Machine Adjuster/Techni juan ID = [id number] for Vargas Tavarez (CELLAVISION MANUAL DIFF)2022-04-27 09:28:58 [...] CONCENTRATION Decreased (CELLAVISION)(BEAKER) (test code = 3438) Sewing Machine Adjuster ID - Norma OverholtUser comments: Slide comments:CBC W/PLT COUNT & AUTO [id number] 09:28:57 Test Item Value Reference Range Interpretation [...] = 413) RAD, CHEST, 1 VIEW, NON [id number] 08:19:00Reason for exam:->post opShould this be performed at the bedside?->Yes [facility] : 1935 Sex: FFINAL REPORT RAD, CHEST, 1 VIEW, NON DEPT INDICATION: post op COMPARISON: Prior day's exam FINDINGS: Portable frontal view of the chest. IMPRESSION: Support Lines: Right chest tubes. Winthrop-Albert tip overlies the pulmonary outflow tract. Lungs and pleura: Small bilateral effusions and brenton cent atelectasis. Unchanged small right apical pneumothorax. Heart and mediastinum: Stable contours.Stable surgical changes. Additional findings: None. Signed: Kyara Marcus MDReport Verified Date/Time: 04/27/2022 08:19:36 -GLUCOSE [id number] 07:49:42 Test Item Value Reference Range Interpretation Comments POC-GLUCOSE METER 121 mg/dL 70-110 H : Notified RN/MD: (BEAKER) (test code = TESTED AT [facility] 3775 9319) GE [facility], [address]: Sewing Machine Adjuster/Techni juan ID = [id number] for Pa ppas, Laura [id number] 06:55:59 Test Item Value Reference Range Interpretation Comments PHOSPHORUS (BEAKER) (test code = 2.9 mg/dL 2.3-4.7 604) Sewing Machine Adjuster ID - THERESA MBASIC METABOLIC [id number] 06:55:58 Test Item Value Reference Range Interpretation [...] S NOT APPLICABLE FOR DIALYSIS PATIEN TS. Sewing Machine Adjuster ID - THERESA [id number] 06:55:58 Test Item Value Reference Range Interpretation Comments MAGNESIUM (BEAKER) (test code = 1.9 mg/dL 1.6-2.6 627) Sewing Machine Adjuster ID - THERESA MOXYGEN SATURATION, [id number] 06:20:51 Test Item Value Reference Range Interpretation Comments O2 SATURATION (MEASURED) (BEAKER) 79.0 % (test code = 1455) Blood gas, [id number] 06:16:43 Test Item Value Reference Range Interpretation [...] 36 Lab Interpretation Abnormal (test code = 26471-2) [facility] HospitalBlood [facility], [id number] 06:16:43 Test Item Value Reference Range Interpretation [...] 36 Lab Interpretation Abnormal (test code = 69939-9) [facility] HospitalBLOOD GAS, [id number] 06:16:43 Test Item Value Reference Range Interpretation [...] (BEAKER) (test code = 1819) 36.0 CALCIUM, [id number] 06:16:43 Test Item Value Reference Range Interpretation Comments CALCIUM IONIZED (BEAKER) (test 1.11 mmol/L 1.12-1.27 L code = 698) PH, BLOOD (BEAKER) (test code = 7.39 1810) POCT-GLUCOSE [id number] 00:36:03 Test Item Value Reference Range Interpretation Comments POC-GLUCOSE METER 133 mg/dL 70-110 H : TESTED A T [facility] 6720 (BEAKER) ([facility] [place], = 1538) [address]: Sewing Machine Adjuster/Techni juan ID = [id number] for CADI ANG, GLORINEIL Prepare Leuko-Red [id number] 23:54:00 Test Item Value Reference Range Interpretation Comments CROSSMATCH (test code = 2264) COMPATIBLE Unit ABO (test code = O Pos 1217783) UNIT NUMBER (test code = [id number] 934-0) Status (test code = 0905034) TX_TIMEINCHART Blood Bank Product (test code RED BLOOD CELLS = 2263) PRODUCT CODE (test code = F2162A82 933-2) [facility] Leuko-Red [id number] 23:54:00 Test Item Value Reference Range Interpretation Comments CROSSMATCH (test code = 2264) COMPATIBLE Unit ABO (test code = O Pos 5663480) UNIT NUMBER (test code = [id number] 934-0) Status (test code = 9546557) TX_TIMEINCHART Blood Bank Product (test code RED BLOOD CELLS = 2263) PRODUCT CODE (test code = J6730L59 933-2) [facility] HospitalRAD, CHEST, 1 VIEW, NON [id number] 21:54:00Reason for exam:->CT with new air leak - rightShould this be performed at the bedside?->[facility] : 1935 Sex: FFINAL REPORT RAD, CHEST, [...] Blanco Verified Date/Time: 04/26/2022 21:54:36 HEMOGLOBIN AND [id number] 20:43:14 Test Item Value Reference Range Interpretation Comments HEMOGLOBIN (BEAKER) (test code = 9.4 GM/DL 11.2-15.7 L 410) HEMATOCRIT (BEAKER) (test code = 28.1 % 34.1-44.9 L 411) Sewing Machine Adjuster ID - [id number]-GLUCOSE [id number] 17:37:48 Test Item Value Reference Range Interpretation Comments POC-GLUCOSE METER 191 mg/dL 70-110 H : TESTED A T [facility] 6720 (BEAKER) (test code = ELSI Mason [facility], 1538) [address]: Sewing Machine Adjuster/Techni juan ID = [id number] for Telma pina (contract), Ran ei RAD, CHEST, 1 VIEW, NON [id number] 12:57:00Reason for exam:->post washout, eval hemothoraxShould this be performed at the bedside?->Yes [facility] : 1935 Sex: FFINAL REPORT TECHNIQUE: Frontal view of the chest. INDICATION: post washout, eval hemothorax. COMPARISON: 04/26/2022 at 1:47 AM and 04/25/2022 at 5:37 AM. FINDINGS: LINES/TUBES: Right IJ Winthrop-Albert catheter remains unchanged. There is been interval [...] Luis MDReport Verified Date/Time: 04/26/2022 12:57:33 Prepare [id number] 11:43:00 Test Item Value Reference Range Interpretation Comments Unit ABO (test code = O Pos 5530219) UNIT NUMBER (test code = [id number] 934-0) Status (test code = RETURNED FROM ISSUE 8231092) Blood Bank Product (test FFP code = 2263) PRODUCT CODE (test code = I6394Z67 933-2) [facility] [id number] 11:43:00 Test Item Value Reference Range Interpretation Comments Unit ABO (test code = O Pos 9082207) UNIT NUMBER (test code = [id number] 934-0) Status (test code = RETURNED FROM ISSUE 5780635) Blood Bank Product (test FFP code = 2263) PRODUCT CODE (test code = A4379N01 933-2) [facility] HospitalOXYGEN SATURATION, [id number] 11:30:33 Test Item Value Reference Range Interpretation Comments O2 SATURATION (MEASURED) (BEAKER) 74.9 % (test code = 1455) [id number] 11:25:52 Test Item Value Reference Range Interpretation Comments PHOSPHORUS (BEAKER) (test code = 2.8 mg/dL 2.3-4.7 604) Sewing Machine Adjuster ID - THERESA MBASIC METABOLIC [id number] 11:25:51 Test Item Value Reference Range Interpretation [...] S NOT APPLICABLE FOR DIALYSIS PATIEN TS. Sewing Machine Adjuster ID - THERESA [id number] 11:25:51 Test Item Value Reference Range Interpretation Comments MAGNESIUM (BEAKER) (test code = 2.0 mg/dL 1.6-2.6 627) Sewing Machine Adjuster ID - THERESA MLactic Acid, [id number] 11:20:10 Test Item Value Reference Range Interpretation Comments Lactate, Art (test code = 0.7 mmol/L 0.5-2.2 2874) MISHA (test code = MISHA) Sewing Machine Adjuster ID - THERESA M Lab Interpretation (test Normal code = 51543-4) [facility] HospitalLactic Acid, [id number] 11:20:10 Test Item Value Reference Range Interpretation Comments Lactate, Art (test code = 0.7 mmol/L 0.5-2.2 2874) MISHA (test code = MISHA) Sewing Machine Adjuster ID - THERESA M Lab Interpretation (test Normal code = 71879-9) [facility] HospitalLACTIC ACID, [id number] 11:20:10 Test Item Value Reference Range Interpretation Comments LACTATE BLOOD ARTERIAL (2) 0.7 mmol/L 0.5-2.2 (BEAKER) (test code = 2874) Sewing Machine Adjuster ID - THERESA [id number] 11:18:48 Test Item Value Reference Range Interpretation [...] is 2.5-3.5 for patients with mechanical heart valves.[id number] 11:18:47 Test Item Value Reference Range Interpretation Comments FIBRINOGEN LEVEL (BEAKER) (test 405 mg/dl 225-434 code = 658) BLOOD GAS, [id number] 11:14:34 Test Item Value Reference Range Interpretation [...] (BEAKER) (test code = 1819) 40.0 CALCIUM, [id number] 11:14:28 Test Item Value Reference Range Interpretation [...] WBC 0-0 (test code = 413) CALCIUM, [id number] 09:26:35 Test Item Value Reference Range Interpretation Comments CALCIUM IONIZED (BEAKER) (test 1.10 mmol/L 1.12-1.27 L code = 698) PH, BLOOD (BEAKER) (test code = 7.48 1810) HGB/HCT (H&H)-Stat [id number] 09:26:34 Test Item Value Reference Range Interpretation Comments Hemoglobin (test code = 8.2 See_Comment L [Au tomated message] 786-4) The system Riiid generated this result transmitted ref erence range: 12.0 - 1 5.0 GM/DL. The refe rence range was not u sed to interpret this result as normal/abnor mal. Hematocrit (test code = 24.0 % 36.0-45.0 L 4544-3) Lab Interpretation (test Abnormal code = 34423-7) [facility] [id number] 09:26:34 Test Item Value Reference Range Interpretation Comments Sodium (test code = 2951-2) 133 meq/L 136-145 L Lab Interpretation (test code = Abnormal 19008-9) [facility] HospitalHGB/HCT (H&H)-Stat [id number] 09:26:34 Test Item Value Reference Range Interpretation Comments Hemoglobin (test code = 8.2 See_Comment L [Au tomated message] 786-4) The system Riiid generated this result transmitted ref erence range: 12.0 - 1 5.0 GM/DL. The refe rence range was not u sed to interpret this result as normal/abnor mal. Hematocrit (test code = 24.0 % 36.0-45.0 L 4544-3) Lab Interpretation (test Abnormal code = 45018-8) [facility]Stat [id number] 09:26:34 Test Item Value Reference Range Interpretation Comments Sodium (test code = 2951-2) 133 meq/L 136-145 L Lab Interpretation (test code = Abnormal 29959-8) [facility] [id number] 09:26:34 Test Item Value Reference Range Interpretation Comments SODIUM (BEAKER) (test code = 381) 133 meq/L 136-145 L HGB/HCT (H&H) - STAT [id number] 09:26:34 Test Item Value Reference Range Interpretation Comments HEMOGLOBIN (BEAKER) (test code = 8.2 GM/DL 12.0-15.0 L 410) HEMATOCRIT (BEAKER) (test code = 24.0 % 36.0-45.0 L 411) BLOOD GAS, [id number] 09:26:33 Test Item Value Reference Range Interpretation [...] (BEAKER) (test code = 1819) 60.0 Glucose-Stat [id number] 09:26:21 Test Item Value Reference Range Interpretation Comments Glucose (test code = 2345-7) 105 mg/dL 70-110 Lab Interpretation (test code = Normal 66103-5) [facility] HospitalPotassium-Stat [id number] 09:26:21 Test Item Value Reference Range Interpretation Comments Potassium (test code = 2823-3) 3.7 meq/L 3.6-5.5 Lab Interpretation (test code = Normal 82787-5) [facility] HospitalGlucose-Stat [id number] 09:26:21 Test Item Value Reference Range Interpretation Comments Glucose (test code = 2345-7) 105 mg/dL 70-110 Lab Interpretation (test code = Normal 32529-3) [facility] HospitalPotassium-Stat [id number] 09:26:21 Test Item Value Reference Range Interpretation Comments Potassium (test code = 2823-3) 3.7 meq/L 3.6-5.5 Lab Interpretation (test code = Normal 65262-4) [facility] HospitalGLUCOSE-STAT [id number] 09:26:21 Test Item Value Reference Range Interpretation Comments GLUCOSE RANDOM (BEAKER) (test code 105 mg/dL 70-110 = 652) POTASSIUM-STAT [id number] 09:26:21 Test Item Value Reference Range Interpretation Comments POTASSIUM (BEAKER) (test code = 3.7 meq/L 3.6-5.5 379) RAD, CHEST, 1 VIEW, NON [id number] 07:33:00while patient is intubated or has chest tubes.Reason for exam:->Status post CV SurgeryShould thisbe performed at the bedside?->Yes [facility] : 1935 Sex: FFINAL REPORT RAD, CHEST, 1 VIEW, NON DEPT INDICATION: Status post CV Surgery COMPARISON: Prior day's exam FINDINGS: Portable frontal view of the chest. IMPRESSION: Support Lines: Winthrop-Albert tip overlies the right pulmonary outflow tract. Right chest tube. Lungs and pleura: Loculated right hemothorax is better demonstrated on prior CT. Opacity within the right upper lung persists. Smallpneumothorax component is not well seen on current radiograph. Heart and mediastinum: Stable contours. Stable surgical changes. Additional findings: None. Signed: Kyara Marcus Verified Date/Time: 04/26/2022 07:33:47 -GLUCOSE [id number] 06:00:43 Test Item Value Reference Range Interpretation Comments POC-GLUCOSE METER 113 mg/dL 70-110 H : TESTED A T [facility] 6720 (BEAKER) (test code = ELSI Mason [facility], 1538) [address]: Sewing Machine Adjuster/Techni juan ID = [id number] for KEVYN SALGUERO [id number] 03:10:22 Test Item Value Reference Range Interpretation Comments PHOSPHORUS (BEAKER) (test code = 2.9 mg/dL 2.3-4.7 604) Sewing Machine Adjuster ID - THERESA MBASIC METABOLIC [id number] 03:10:21 Test Item Value Reference Range Interpretation [...] S NOT APPLICABLE FOR DIALYSIS PATIEN TS. Sewing Machine Adjuster ID - THERESA [id number] 03:10:21 Test Item Value Reference Range Interpretation Comments MAGNESIUM (BEAKER) (test code = 1.6 mg/dL 1.6-2.6 627) Sewing Machine Adjuster ID - THERESA MCBC (HEMOGRAM ONLY)2022-04-26 02:27:34 [...] 0-0 (BEAKER) (test code = 413) CALCIUM, [id number] 02:18:11 Test Item Value Reference Range Interpretation Comments CALCIUM IONIZED (BEAKER) (test 1.13 mmol/L 1.12-1.27 code = 698) PH, BLOOD (BEAKER) (test code = 7.45 1810) POCT-GLUCOSE [id number] 00:01:48 Test Item Value Reference Range Interpretation Comments POC-GLUCOSE METER 131 mg/dL 70-110 H : TESTED A T [facility] 6720 (BEAKER) (test code = ELSI [place], 1538) [address]: Sewing Machine Adjuster/Techni juan ID = [id number] for SA BULLARD, KEVYN Prepare [id number] 23:54:00 Test Item Value Reference Range Interpretation Comments Unit ABO (test code = O Pos 3666025) UNIT NUMBER (test code = [id number] 934-0) Status (test code = 0627555) [place]_TIMEINCHART Blood Bank Product (test code CRYOPRECIPITATE = 2263) PRODUCT CODE (test code = X8035U87 933-2) [facility] [id number] 23:54:00 Test Item Value Reference Range Interpretation Comments Unit ABO (test code = 2535449) O Pos UNIT NUMBER (test code = [id number] 934-0) Status (test code = 8643422) TX_TIMEINCHART Blood Bank Product (test code PLATELETS = 2263) PRODUCT CODE (test code = Z9495S58 933-2) [facility] [id number] 23:54:00 Test Item Value Reference Range Interpretation Comments Unit ABO (test code = O Pos 5457319) UNIT NUMBER (test code = [id number] 934-0) Status (test code = 2284596) TX_TIMEINCHART Blood Bank Product (test code CRYOPRECIPITATE = 2263) PRODUCT CODE (test code = Z7144Q27 933-2) [facility] [id number] 23:54:00 Test Item Value Reference Range Interpretation Comments Unit ABO (test code = 4337968) O Pos UNIT NUMBER (test code = [id number] 934-0) Status (test code = 6385853) TX_TIMEINCHART Blood Bank Product (test code PLATELETS = 2263) PRODUCT CODE (test code = Q6424P27 933-2) [facility] HospitalBASIC METABOLIC [id number] 19:28:22 Test Item Value Reference Range Interpretation [...] S NOT APPLICABLE FOR DIALYSIS PATIEN TS. Sewing Machine Adjuster ID - HGLACTIC ACID, [id number] 18:55:34 Test Item Value Reference Range Interpretation Comments LACTATE BLOOD ARTERIAL (2) 0.9 mmol/L 0.5-2.2 (BEAKER) (test code = 2874) Sewing Machine Adjuster ID - HGOXYGEN SATURATION, [id number] 18:44:34 Test Item Value Reference Range Interpretation Comments O2 SATURATION (MEASURED) (BEAKER) 60.5 % (test code = 1455) HEMOGLOBIN AND [id number] 18:42:34 Test Item Value Reference Range Interpretation Comments HEMOGLOBIN (BEAKER) (test code = 8.5 GM/DL 11.2-15.7 L 410) HEMATOCRIT (BEAKER) (test code = 24.5 % 34.1-44.9 L 411) Sewing Machine Adjuster ID - [id number]-GLUCOSE [id number] 16:41:19 Test Item Value Reference Range Interpretation Comments POC-GLUCOSE METER 147 mg/dL 70-110 H : TESTED A T [facility] 6720 (BEAKER) (test code [facility], = 1538) [address]: Sewing Machine Adjuster/Techni juan ID = [id number] for Jim n (contract) Aaron rodriguez PT/[id number] 13:29:52 Test Item Value Reference Range Interpretation [...] is 2.5-3.5 for patients with mechanical heart valves.[id number] 13:29:31 Test Item Value Reference Range Interpretation Comments FIBRINOGEN LEVEL (BEAKER) (test 380 mg/dl 225-434 code = 658) POCT-GLUCOSE [id number] 13:25:47 Test Item Value Reference Range Interpretation Comments POC-GLUCOSE METER 124 mg/dL 70-110 H : TESTED A T [facility] 6720 (BEAKER) (test code [facility], = 1538) 0[address]27: Sewing Machine Adjuster/Techni juan ID = [id number] for Jim rizo (contract) Aaron rodriguez CBC (HEMOGRAM ONLY)2022-04-25 13:20:13 Test Item Value [...] = 413) RAD, CHEST, 1 VIEW, NON [id number] 12:41:00while patient is intubated or has chest tubes.Reason for exam:->Status post CV SurgeryShould thisbe performed at the bedside?->Yes [facility] : 1935 Sex: FFINAL REPORT RAD, CHEST, 1 VIEW, NON DEPT INDICATION: Status post CV Surgery COMPARISON: Prior day's exam FINDINGS: Portable frontal view of the chest. IMPRESSION: Support Lines: Winthrop-Albert tip overlies the right main pulmonary artery. Right chest tube. Lungs and pleura: Dense consolidation within the right upper lung is unchanged. No significant pneumothorax. Heart and mediastinum: Stable contours. Stable surgical changes. Additional findings: None. Signed: Kyara Marcus MDReport Verified Date/Time: 04/25/2022 12:41:59 Reading Location: [facility] Radiology Reading Room [id number] 12:02:08 Test Item Value Reference Range Interpretation Comments Scan Result (test code = See scanned report [id number]) MISHA (test code = MISHA) See scanned report [facility]Rotem2022-07-08 12:02:08 Test Item Value Reference Range Interpretation Comments Scan Result (test code = See scanned report [id number]) MISHA (test code = MISHA) See scanned report [facility] HospitalMISCELLANEOUS LAB [id number] 12:02:08 Test Item Value Reference Range Interpretation Comments SCAN RESULT (test code = See scanned report [id number]) See scanned reportCT, CHEST, WITHOUT [id number] 11:18:00Unlisted Reason for Exam - Click Yes and Enter Reason Below->YesUnlisted Reason for Exam- >s/p CT surgery, concern for hemothorax [facility] : 1935 Sex: FFINAL REPORT CT, CHEST, [...] nodes without IV contrast. Otherwise unremarkableCardiovascular: Small pneumopericardium.Winthrop- Albert catheter tip in the right interlobar [...] 3.3 cm in diameter Signed: Elise Chau [facility] Verified Date/Time: 04/25/2022 11:18:20 RAD, CHEST, 1 VIEW, NON [id number] 10:12:00Reason for exam:->RUL lung collapse [facility] : 1935 Sex: FFINAL REPORT RAD, CHEST, 1 VIEW, NON DEPT INDICATION: RUL lung collapse COMPARISON: Prior day's exam FINDINGS: Portable frontal view of the chest. IMPRESSION: Support Lines: Winthrop-Albert tip overlies the right pulmonary outflow tract. Right chest tube. Lungs and pleura: Right upper lung opacity is unchanged. No significant pneumothorax. Heart and mediastinum: Stable contours. Stable surgical changes. Additional findings: None. Signed: Kyara Marcus Verified Date/Time: 04/25/2022 10:12:13 Reading Location: [facility] Radiology Reading Room CBC (HEMOGRAM ONLY)2022-04-25 09:55:40 [...] CELLS (BEAKER) (test code = 413) POCT-GLUCOSE [id number] 08:19:29 Test Item Value Reference Range Interpretation Comments POC-GLUCOSE METER 120 mg/dL 70-110 H : [facility] (test code [facility], = 1538) [address]: Sewing Machine Adjuster/Techni juan ID = [id number] for Jim rizo (contract)Aaron Hematocrit-Stat [id number] 06:54:10 Test Item Value Reference Range Interpretation Comments Hematocrit (test code = 4544-3) 7.0 % 36.0-45.0 L Lab Interpretation (test code = Abnormal 93953-5) [facility] HospitalHematocrit-Stat [id number] 06:54:10 Test Item Value Reference Range Interpretation Comments Hematocrit (test code = 4544-3) 7.0 % 36.0-45.0 L Lab Interpretation (test code = Abnormal 21378-9) [facility] HospitalHEMATOCRIT-STAT [id number] 06:54:10 Test Item Value Reference Range Interpretation Comments HEMATOCRIT (BEAKER) (test code = 411) 7.0 % 36.0-45.0 L LACTIC ACID, [id number] 06:20:41 Test Item Value Reference Range Interpretation Comments LACTATE BLOOD VENOUS (2) (BEAKER) 0.68 mmol/L 0.50-2.20 (test code = 2872) Sewing Machine Adjuster ID - THERESA MOperator ID - THERESA MPOCT-GLUCOSE [id number] 06:10:42 Test Item Value Reference Range Interpretation Comments POC-GLUCOSE METER 122 mg/dL 70-110 H : [facility] (BEAKER) (test code = ELSI Mason [facility], 1538) [address]: Sewing Machine Adjuster/Techni juan ID = [id number] for Bubba marcus (contract)Janet POC ACTIVATED CLOTTING [id number] 05:51:42 Test Item Value Reference Range Interpretation Comments Activated Clotting Time 126 sec : 74 -137 seconds, (test code = 3184-9) Baselin e: TESTED AT [facility] 6720 [facility], 770 30: Sewing Machine Adjuster/Techni juan ID = [id number] for Arnol [facility] HospitalPO ACTIVATED CLOTTING [id number] 05:51:42 Test Item Value Reference Range Interpretation Comments Activated Clotting Time 126 sec : 74 -137 seconds, (test code = 3184-9) Bertha e: TESTED AT [address], [facility] 30: Sewing Machine Adjuster/Techni juan ID = [id number] for Le , Arnol [facility][id number] 05:51:42 Test Item Value Reference Range Interpretation Comments ACTIVATED CLOTTING TIME 126 sec : 74 -137 seconds, (BEAKER) (test code = Baseli ne: TESTED AT 441) [address], 770 30: Sewing Machine Adjuster/Techni juan ID = [id number] for Le , Arnol XZQM-[id number] 05:51:42 Test Item Value Reference Range Interpretation Comments ACTIVATED CLOTTING TIME 590 sec : 74 -137 seconds, (BEAKER) (test code = Baseli ne: TESTED AT 441) [address], [facility] 30: Sewing Machine Adjuster/Techni juan ID = [id number] for Le , Arnol OTCR-[id number] 05:51:41 Test Item Value Reference Range Interpretation Comments ACTIVATED CLOTTING TIME 654 sec : 74 -137 seconds, (BEAKER) (test code = Baseli ne: TESTED AT 441) [address], [facility] 30: Sewing Machine Adjuster/Techni juan ID = [id number] for Le , Arnol [id number] 05:51:41 Test Item Value Reference Range Interpretation Comments ACTIVATED CLOTTING TIME 590 sec : 74 -137 seconds, (BEAKER) (test code = Baseli ne: TESTED AT 441) [address], [facility] 30: Sewing Machine Adjuster/Techni juan ID = [id number] for Le , Arnol PEUL-[id number] 05:51:06 Test Item Value Reference Range Interpretation Comments ACTIVATED CLOTTING TIME 115 sec : 74 -137 seconds, (BEAKER) (test code = Baseli ne: TESTED AT 441) [address], [facility] 30: Sewing Machine Adjuster/Techni juan ID = [id number] for Le , Arnol VVNA-[id number] 05:51:06 Test Item Value Reference Range Interpretation Comments ACTIVATED CLOTTING TIME 839 sec : 74 -137 seconds, (BEAKER) (test code = Baseli ne: TESTED AT 441) [facility] 6720 [facility], 770 30: Sewing Machine Adjuster/Techni juan ID = [id number] for Arnol [place] KQDM-[id number] 05:51:05 Test Item Value Reference Range Interpretation Comments ACTIVATED CLOTTING TIME 654 sec : 74 -137 seconds, (BEAKER) (test code = Cisco ne: TESTED AT 441) [facility] 6720 [facility], 770 30: Sewing Machine Adjuster/Techni juan ID = [id number] for Arnol [place] [id number] 04:43:22 Test Item Value Reference Range Interpretation Comments PARTIAL THROMBOPLASTIN TIME 33.3 seconds 22.5-36.0 (BEAKER) (test code = 760) [id number] 04:43:20 Test Item Value Reference Range Interpretation Comments FIBRINOGEN LEVEL (BEAKER) (test 304 mg/dl 225-434 code = 658) BLOOD GAS, [id number] 04:42:49 Test Item Value Reference Range Interpretation [...] (BEAKER) (test code = 1819) 40.0 PROTHROMBIN TIME/[id number] 04:42:42 Test Item Value Reference Range Interpretation Comments PROTIME (BEAKER) 17.0 seconds 11.9-14.2 H (test code = 759) INR (BEAKER) (test 1.41 See_Comment [Automat ed message] code = 370) The system Riiid generated this result transmitted ref erence range: <=5.90. The reference range was not used to int erpret this result as normal/abnormal . RECOMMENDED COUMADIN/WARFARIN INR THERAPY RANGESSTANDARD DOSE: 2.0 - 3.0 Includes: PROPHYLAXIS for venous thrombosis, systemic embolization; TREATMENT for venous thrombosis and/or pulmonary embolus.HIGH RISK: Target INR is 2.5-3.5 for patients with mechanical heart valves.HEPATIC FUNCTION [id number] 04:23:33 Test Item Value Reference Range Interpretation [...] (test code = 13 U/L 6-55 347) Sewing Machine Adjuster ID - THERESA MCALCIUM, [id number] 04:18:14 Test Item Value Reference Range Interpretation Comments CALCIUM IONIZED (BEAKER) (test 1.21 mmol/L 1.12-1.27 code = 698) PH, BLOOD (BEAKER) (test code = 7.34 1810) [id number] 03:50:20 Test Item Value Reference Range Interpretation Comments PHOSPHORUS (BEAKER) (test code = 4.0 mg/dL 2.3-4.7 604) Sewing Machine Adjuster ID - THERESA MBASIC METABOLIC [id number] 03:50:19 Test Item Value Reference Range Interpretation [...] S NOT APPLICABLE FOR DIALYSIS PATIEN TS. Sewing Machine Adjuster ID - THERESA [id number] 03:50:19 Test Item Value Reference Range Interpretation Comments MAGNESIUM (BEAKER) (test code = 1.9 mg/dL 1.6-2.6 627) Sewing Machine Adjuster ID - THERESA MCBC (HEMOGRAM ONLY)2022-04-25 03:25:24 [...] WBC 0-0 (test code = 413) POCT-GLUCOSE [id number] 02:22:03 Test Item Value Reference Range Interpretation Comments POC-GLUCOSE METER 110 mg/dL 70-110 : TESTED A T [facility] 6720 (BEAKER) (test code = ELSI Mason [place], 1538) [address]: Sewing Machine Adjuster/Techni juan ID = [id number] for Bubba marcus (contract)Janet POCT-GLUCOSE [id number] 00:03:44 Test Item Value Reference Range Interpretation Comments POC-GLUCOSE METER 139 mg/dL 70-110 H : TESTED A T [facility] 6720 (BEAKER) (test code = ELSI Mason [place], 1538) [address]: Sewing Machine Adjuster/Techni juan ID = [id number] for KEVYN SALGUERO GLUCOSE-STAT [id number] 21:29:34 Test Item Value Reference Range Interpretation Comments GLUCOSE RANDOM (BEAKER) (test code 155 mg/dL 70-110 H = 652) HGB/HCT (H&H) - STAT [id number] 21:29:34 Test Item Value Reference Range Interpretation Comments HEMOGLOBIN (BEAKER) (test code = 8.9 GM/DL 12.0-15.0 L 410) HEMATOCRIT (BEAKER) (test code = 26.0 % 36.0-45.0 L 411) BLOOD GAS, [id number] 21:29:33 Test Item Value Reference Range Interpretation [...] 37.0 (test code = 1818) SODIUM NA-STAT [id number] 21:28:36 Test Item Value Reference Range Interpretation Comments SODIUM (BEAKER) (test code = 381) 139 meq/L 136-145 POTASSIUM-STAT [id number] 21:28:36 Test Item Value Reference Range Interpretation Comments POTASSIUM (BEAKER) (test code = 3.9 meq/L 3.6-5.5 379) [id number] 20:35:33 Test Item Value Reference Range Interpretation Comments MAGNESIUM (BEAKER) 2.1 mg/dL 1.6-2.6 Specimen slightly (test code = 627) hemolyzed Sewing Machine Adjuster ID - DBBASIC METABOLIC [id number] 20:35:32 Test Item Value Reference Range Interpretation [...] S NOT APPLICABLE FOR DIALYSIS PATIEN TS. Sewing Machine Adjuster ID - DBSpecimen slightly ictericLACTIC ACID, [id number] 20:31:26 Test Item Value Reference Range Interpretation Comments LACTATE BLOOD ARTERIAL (2) 1.2 mmol/L 0.5-2.2 (BEAKER) (test code = 2874) Sewing Machine Adjuster ID - DBSpecimen slightly ictericGLUCOSE-STAT [id number] 20:09:05 Test Item Value Reference Range Interpretation Comments GLUCOSE RANDOM (BEAKER) (test code 147 mg/dL 70-110 H = 652) HGB/HCT (H&H) - STAT [id number] 20:09:05 Test Item Value Reference Range Interpretation Comments HEMOGLOBIN (BEAKER) (test code = 9.5 GM/DL 12.0-15.0 L 410) HEMATOCRIT (BEAKER) (test code = 28.0 % 36.0-45.0 L 411) BLOOD GAS, [id number] 20:09:04 Test Item Value Reference Range Interpretation [...] (BEAKER) 37.0 (test code = 1818) CALCIUM, [id number] 20:08:43 Test Item Value Reference Range Interpretation Comments CALCIUM IONIZED (BEAKER) (test 1.26 mmol/L 1.12-1.27 code = 698) PH, BLOOD (BEAKER) (test code = 7.43 1810) POTASSIUM-STAT [id number] 20:08:22 Test Item Value Reference Range Interpretation Comments POTASSIUM (BEAKER) (test code = 4.0 meq/L 3.6-5.5 379) SODIUM NA-STAT [id number] 20:08:21 Test Item Value Reference Range Interpretation [...] CONCENTRATION Decreased (CELLAVISION)(BEAKER) (test code = 3438) Sewing Machine Adjuster ID - Parts Classifier (created by the system)User comments: Slide comments:CBC W/PLT COUNT & AUTO [id number] 18:18:06 Test Item Value Reference Range Interpretation [...] code = 2801) HGB/HCT (H&H) - STAT [id number] 18:15:30 Test Item Value Reference Range Interpretation Comments HEMOGLOBIN (BEAKER) (test code = 9.5 GM/DL 12.0-15.0 L 410) HEMATOCRIT (BEAKER) (test code = 28.0 % 36.0-45.0 L 411) BLOOD GAS, [id number] 18:15:29 Test Item Value Reference Range Interpretation [...] (BEAKER) (test code = 1819) 40.0 GLUCOSE-STAT [id number] 18:15:29 Test Item Value Reference Range Interpretation Comments GLUCOSE RANDOM (BEAKER) (test code 167 mg/dL 70-110 H = 652) SODIUM NA-STAT [id number] 18:15:23 Test Item Value Reference Range Interpretation Comments SODIUM (BEAKER) (test code = 381) 138 meq/L 136-145 POTASSIUM-STAT [id number] 18:15:23 Test Item Value Reference Range Interpretation Comments POTASSIUM (BEAKER) (test code = 3.6 meq/L 3.6-5.5 379) RAD, CHEST, 1 VIEW, NON [id number] 16:48:00Reason for exam:->s/p valve surgeryShould this be performed at the bedside?->Yes [facility] 1935 Sex: FFINAL REPORT Chest, 1 view, 04/24/2022 4:08 PM. History: Postop. Comparison: None available. Discussion: The cardiomediastinal silhouette and pulmonary vasculature are within normal limits for a portable exam. Prosthetic heart valve is present. There is biapical pleural thickening. Scattered linear opacities are present throughout the right lung. There is no pneumothorax, consolidation, or effusion. Endotracheal tube is present terminating at the level of the clavicles. NG tube is present terminating below the left hemidiaphragm. Right IJ Winthrop-Albert catheter terminates in the distal right pulmonary artery. Right-sided chest tube is present. Minimal subcutaneous air is present within the right lower lateral chest wall. IMPRESSION: Postoperative changes with supporting lines and tubesin adequate position. Scattered right lung atelectasis is present. Signed: Tra Akbar MDReport Verified Date/Time: 04/24/2022 16:48:45 Reading Location: [facility] Radiology Reading Room BASI METABOLIC PANEL 2022-04-24 [...] S NOT APPLICABLE FOR DIALYSIS PATIEN TS. Sewing Machine Adjuster ID - JONI [id number] 16:20:36 Test Item Value Reference Range Interpretation Comments MAGNESIUM (BEAKER) 1.6 mg/dL 1.6-2.6 Specimen slightly (test code = 627) hemolyzed Sewing Machine Adjuster ID - JONI [id number] 16:20:36 Test Item Value Reference Range Interpretation Comments PHOSPHORUS (BEAKER) 3.5 mg/dL 2.3-4.7 Specimen slightly (test code = 604) hemolyzed Sewing Machine Adjuster ID Brooklynn QUINONES LLACTIC ACID, [id number] 16:12:11 Test Item Value Reference Range Interpretation Comments LACTATE BLOOD 1.3 mmol/L 0.5-2.2 Specimen sligh tly ARTERIAL (2) (BEAKER) hemoly zed (test code = 2874) Sewing Machine Adjuster ID - JONI [id number] 16:08:12 Test Item Value Reference Range Interpretation Comments PARTIAL THROMBOPLASTIN TIME 33.9 seconds 22.5-36.0 (BEAKER) (test code = 760) [id number] 16:07:51 Test Item Value Reference Range Interpretation Comments FIBRINOGEN LEVEL (BEAKER) (test 426 mg/dl 225-434 code = 658) PROTHROMBIN TIME/[id number] 16:07:30 Test Item Value Reference Range Interpretation Comments PROTIME (BEAKER) 17.1 seconds 11.9-14.2 H (test code = 759) INR (BEAKER) (test 1.42 See_Comment [Automat ed message] code = 370) The system Riiid generated this result transmitted ref erence range: <=5.90. The reference range was not used to int erpret this result as normal/abnormal . RECOMMENDED COUMADIN/WARFARIN INR THERAPY RANGESSTANDARD DOSE: 2.0 - 3.0 Includes: PROPHYLAXIS for venous thrombosis, systemic embolization; TREATMENT for venous thrombosis and/or pulmonary embolus.HIGH RISK: Target INR is 2.5-3.5 for patients with mechanical heart valves.CALCIUM, [id number] 16:00:22 Test Item Value Reference Range Interpretation Comments CALCIUM IONIZED (BEAKER) (test 1.29 mmol/L 1.12-1.27 H code = 698) PH, BLOOD (BEAKER) (test code = 7.46 1810) BLOOD GAS, [id number] 16:00:22 Test Item Value Reference Range Interpretation [...] (test code = 1819) 60.0 OXYGEN SATURATION, [id number] 15:59:48 Test Item Value Reference Range Interpretation [...] WBC 0-0 (BEAKER) (test code = 413) [id number] 14:24:28 Test Item Value Reference Range Interpretation Comments PARTIAL THROMBOPLASTIN TIME 37.1 seconds 22.5-36.0 H (BEAKER) (test code = 760) [id number] 14:24:07 Test Item Value Reference Range Interpretation Comments FIBRINOGEN LEVEL (BEAKER) (test 290 mg/dl 225-434 code = 658) PROTHROMBIN TIME/[id number] 14:23:45 Test Item Value Reference Range Interpretation Comments PROTIME (BEAKER) 19.2 seconds 11.9-14.2 H (test code = 759) INR (BEAKER) (test 1.64 See_Comment [Automat ed message] code = 370) The system Riiid generated this result transmitted ref erence range: <=5.90. The reference range was not used to int erpret this result as normal/abnormal . RECOMMENDED COUMADIN/WARFARIN INR THERAPY RANGESSTANDARD DOSE: 2.0 - 3.0 Includes: PROPHYLAXIS for venous thrombosis, systemic embolization; TREATMENT for venous thrombosis and/or pulmonary embolus.HIGH RISK: Target INR is 2.5-3.5 for patients with mechanical heart valves.Platelet [id number] 14:19:25 Test Item Value Reference Range Interpretation Comments Platelets (test code 139 See_Comment L [Autom ated = 777-3) message] The system which generated this result transmit minda reference range : 150 - 450 K/CU MM. The reference range was not u sed to interpret th is result as normal/abnormal . MISHA (test code = MISHA) Sewing Machine Adjuster ID - [id number] Lab Interpretation Abnormal (test code = 40947-5) [id number] 14:19:25 Test Item Value Reference Range Interpretation Comments Platelets (test code 139 See_Comment L [Autom ated = 777-3) message] The system which generated this result transmit minda reference range : 150 - 450 K/CU MM. The reference range was not u sed to interpret th is result as normal/abnormal . MISHA (test code = MISHA) Sewing Machine Adjuster ID - [id number] Lab Interpretation Abnormal (test code = 16222-4) [facility] [id number] 14:19:25 Test Item Value Reference Range Interpretation Comments PLATELET COUNT (BEAKER) (test 139 K/CU MM 150-450 L code = 756) Sewing Machine Adjuster ID - [id number], [id number] 14:11:38 Test Item Value Reference Range Interpretation Comments CALCIUM IONIZED (BEAKER) (test 1.01 mmol/L 1.12-1.27 L code = 698) PH, BLOOD (BEAKER) (test code = 7.45 1810) POTASSIUM-STAT [id number] 14:11:06 Test Item Value Reference Range Interpretation Comments POTASSIUM (BEAKER) (test code = 3.1 meq/L 3.6-5.5 L 379) GLUCOSE-STAT [id number] 14:11:06 Test Item Value Reference Range Interpretation Comments GLUCOSE RANDOM (BEAKER) (test code 150 mg/dL 70-110 H = 652) HGB/HCT (H&H) - STAT [id number] 14:11:06 Test Item Value Reference Range Interpretation Comments HEMOGLOBIN (BEAKER) (test code = 10.8 GM/DL 12.0-15.0 L 410) HEMATOCRIT (BEAKER) (test code = 32.0 % 36.0-45.0 L 411) BLOOD GAS, [id number] 14:11:05 Test Item Value Reference Range Interpretation [...] (test code = 1819) 97.0 SODIUM NA-STAT [id number] 14:10:43 Test Item Value Reference Range Interpretation Comments SODIUM (BEAKER) (test code = 381) 136 meq/L 136-145 [id number] 13:59:03 Test Item Value Reference Range Interpretation Comments FIBRINOGEN LEVEL (BEAKER) (test 211 mg/dl 225-434 L code = 658) PROTHROMBIN TIME/[id number] 13:58:41 Test Item Value Reference Range Interpretation Comments PROTIME (BEAKER) 22.7 seconds 11.9-14.2 H (test code = 759) INR (BEAKER) (test 2.03 See_Comment [Automat ed message] code = 370) The system Riiid generated this result transmitted ref erence range: <=5.90. The reference range was not used to int erpret this result as normal/abnormal . RECOMMENDED COUMADIN/WARFARIN INR THERAPY RANGESSTANDARD DOSE: 2.0 - 3.0 Includes: PROPHYLAXIS for venous thrombosis, systemic embolization; TREATMENT for venous thrombosis and/or pulmonary embolus.HIGH RISK: Target INR is 2.5-3.5 for patients with mechanical heart valves.[id number] 13:34:36 Test Item Value Reference Range Interpretation Comments PARTIAL THROMBOPLASTIN TIME 38.6 seconds 22.5-36.0 H (BEAKER) (test code = 760) [id number] 13:34:35 Test Item Value Reference Range Interpretation Comments FIBRINOGEN LEVEL (BEAKER) (test 185 mg/dl 225-434 L code = 658) PROTHROMBIN TIME/[id number] 13:33:54 Test Item Value Reference Range Interpretation Comments PROTIME (BEAKER) 26.1 seconds 11.9-14.2 H (test code = 759) INR (BEAKER) (test 2.42 See_Comment [Automat ed message] code = 370) The system Riiid generated this result transmitted ref erence range: <=5.90. The reference range was not used to int erpret this result as normal/abnormal . RECOMMENDED COUMADIN/WARFARIN INR THERAPY RANGESSTANDARD DOSE: 2.0 - 3.0 Includes: PROPHYLAXIS for venous thrombosis, systemic embolization; TREATMENT for venous thrombosis and/or pulmonary embolus.HIGH RISK: Target INR is 2.5-3.5 for patients with mechanical heart valves.CALCIUM, [id number] 13:23:39 Test Item Value Reference Range Interpretation Comments CALCIUM IONIZED (BEAKER) (test 1.11 mmol/L 1.12-1.27 L code = 698) PH, BLOOD (BEAKER) (test code = 7.55 3560) HGB/HCT (H&H) - STAT [id number] 13:23:38 Test Item Value Reference Range Interpretation Comments HEMOGLOBIN (BEAKER) (test code = 8.6 GM/DL 12.0-15.0 L 410) HEMATOCRIT (BEAKER) (test code = 25.0 % 36.0-45.0 L 411) POTASSIUM-STAT [id number] 13:23:37 Test Item Value Reference Range Interpretation Comments POTASSIUM (BEAKER) (test code = 3.4 meq/L 3.6-5.5 L 379) GLUCOSE-STAT [id number] 13:23:37 Test Item Value Reference Range Interpretation Comments GLUCOSE RANDOM (BEAKER) (test code 159 mg/dL 70-110 H = 652) BLOOD GAS, [id number] 13:23:36 Test Item Value Reference Range Interpretation [...] (test code = 1819) 97.0 SODIUM NA-STAT [id number] 13:23:14 Test Item Value Reference Range Interpretation Comments SODIUM (BEAKER) (test code = 381) 137 meq/L 136-145 HGB/HCT (H&H) - STAT [id number] 12:07:22 Test Item Value Reference Range Interpretation Comments HEMOGLOBIN (BEAKER) (test code = 8.5 GM/DL 12.0-15.0 L 410) HEMATOCRIT (BEAKER) (test code = 25.0 % 36.0-45.0 L 411) BLOOD GAS, [id number] 12:07:21 Test Item Value Reference Range Interpretation [...] (BEAKER) (test code = 1819) 75.0 GLUCOSE-STAT [id number] 12:07:21 Test Item Value Reference Range Interpretation Comments GLUCOSE RANDOM (BEAKER) (test code 184 mg/dL 70-110 H = 652) POTASSIUM-STAT [id number] 12:06:48 Test Item Value Reference Range Interpretation Comments POTASSIUM (BEAKER) (test code = 3.7 meq/L 3.6-5.5 379) SODIUM NA-STAT [id number] 12:06:47 Test Item Value Reference Range Interpretation Comments SODIUM (BEAKER) (test code = 381) 135 meq/L 136-145 L PLATELET [id number] 11:55:07 Test Item Value Reference Range Interpretation Comments PLATELET COUNT 84 K/CU MM 150-450 L No clot, Pt i s in CV (BEAKER) (test code = OR. 756) Sewing Machine Adjuster ID - [id number]-STAT [id number] 11:38:00 Test Item Value Reference Range Interpretation Comments GLUCOSE RANDOM (BEAKER) (test code 215 mg/dL 70-110 H = 652) HGB/HCT (H&H) - STAT [id number] 11:38:00 Test Item Value Reference Range Interpretation Comments HEMOGLOBIN (BEAKER) (test code = 8.5 GM/DL 12.0-15.0 L 410) HEMATOCRIT (BEAKER) (test code = 25.0 % 36.0-45.0 L 411) BLOOD GAS, [id number] 11:37:59 Test Item Value Reference Range Interpretation [...] (test code = 1819) 75.0 SODIUM NA-STAT [id number] 11:37:59 Test Item Value Reference Range Interpretation Comments SODIUM (BEAKER) (test code = 381) 133 meq/L 136-145 L POTASSIUM-STAT [id number] 11:37:43 Test Item Value Reference Range Interpretation Comments POTASSIUM (BEAKER) (test code = 4.4 meq/L 3.6-5.5 379) SODIUM NA-STAT [id number] 11:09:16 Test Item Value Reference Range Interpretation Comments SODIUM (BEAKER) (test code = 381) 134 meq/L 136-145 L GLUCOSE-STAT [id number] 11:09:16 Test Item Value Reference Range Interpretation Comments GLUCOSE RANDOM (BEAKER) (test code 226 mg/dL 70-110 H = 652) HGB/HCT (H&H) - STAT [id number] 11:09:16 Test Item Value Reference Range Interpretation Comments HEMOGLOBIN (BEAKER) (test code = 9.7 GM/DL 12.0-15.0 L 410) HEMATOCRIT (BEAKER) (test code = 29.0 % 36.0-45.0 L 411) BLOOD GAS, [id number] 11:09:15 Test Item Value Reference Range Interpretation [...] (BEAKER) (test code = 1819) 65.0 POTASSIUM-STAT [id number] 11:08:50 Test Item Value Reference Range Interpretation Comments POTASSIUM (BEAKER) (test code = 4.6 meq/L 3.6-5.5 379) HGB/HCT (H&H) - STAT [id number] 10:59:00 Test Item Value Reference Range Interpretation Comments HEMOGLOBIN (BEAKER) (test code = 7.6 GM/DL 12.0-15.0 L 410) HEMATOCRIT (BEAKER) (test code = 22.0 % 36.0-45.0 L 411) BLOOD GAS, [id number] 10:58:59 Test Item Value Reference Range Interpretation [...] (BEAKER) (test code = 1819) 65.0 GLUCOSE-STAT [id number] 10:58:59 Test Item Value Reference Range Interpretation Comments GLUCOSE RANDOM (BEAKER) (test code 206 mg/dL 70-110 H = 652) POTASSIUM-STAT [id number] 10:55:29 Test Item Value Reference Range Interpretation Comments POTASSIUM (BEAKER) (test code = 4.1 meq/L 3.6-5.5 379) SODIUM NA-STAT [id number] 10:55:28 Test Item Value Reference Range Interpretation Comments SODIUM (BEAKER) (test code = 381) 137 meq/L 136-145 BLOOD GAS, [id number] 10:27:14 Test Item Value Reference Range Interpretation [...] (BEAKER) (test code = 1819) 70.0 GLUCOSE-STAT [id number] 10:27:14 Test Item Value Reference Range Interpretation Comments GLUCOSE RANDOM (BEAKER) (test code 189 mg/dL 70-110 H = 652) HGB/HCT (H&H) - STAT [id number] 10:27:14 Test Item Value Reference Range Interpretation Comments HEMOGLOBIN (BEAKER) (test code = 7.9 GM/DL 12.0-15.0 L 410) HEMATOCRIT (BEAKER) (test code = 23.0 % 36.0-45.0 L 411) SODIUM NA-STAT [id number] 10:26:53 Test Item Value Reference Range Interpretation Comments SODIUM (BEAKER) (test code = 381) 135 meq/L 136-145 L POTASSIUM-STAT [id number] 10:26:53 Test Item Value Reference Range Interpretation Comments POTASSIUM (BEAKER) (test code = 3.5 meq/L 3.6-5.5 L 379) HGB/HCT (H&H) - STAT [id number] 08:10:46 Test Item Value Reference Range Interpretation Comments HEMOGLOBIN (BEAKER) (test code = 11.1 GM/DL 12.0-15.0 L 410) HEMATOCRIT (BEAKER) (test code = 33.0 % 36.0-45.0 L 411) POTASSIUM-STAT [id number] 08:10:41 Test Item Value Reference Range Interpretation Comments POTASSIUM (BEAKER) (test code = 3.4 meq/L 3.6-5.5 L 379) BLOOD GAS, [id number] 08:10:40 Test Item Value Reference Range Interpretation [...] (test code = 1819) 95.0 SODIUM NA-STAT [id number] 08:10:40 Test Item Value Reference Range Interpretation Comments SODIUM (BEAKER) (test code = 381) 134 meq/L 136-145 L CALCIUM, [id number] 08:10:34 Test Item Value Reference Range Interpretation Comments CALCIUM IONIZED (BEAKER) (test 1.13 mmol/L 1.12-1.27 code = 698) PH, BLOOD (BEAKER) (test code = 7.47 1810) GLUCOSE-STAT [id number] 08:10:34 Test Item Value Reference Range Interpretation Comments GLUCOSE RANDOM (BEAKER) (test code 104 mg/dL 70-110 = 652) SARS-CoV2/RT-PCR (Asymptomatic ONLY)2022-04-24 04:46:57 Test Item Value Reference Range Interpretation Comments SARS-COV2/RT-PCR Negative Not Detected, (test code = Negative, See 58964-3) external report for linked test SARS-COV-2 [facility] (test code = 60044-1) MISHA (test code = Negative result for [...] of the Act. Fact Sheet for Healthcare Providers:https://www.BringMeThat.iSentium/sites/default/f stanley/product/documents/F act_Sheet_HC_Providers_L tix_SDNF-LiU-7.pdf Fact Sheet for Healthcare Patients:https://www.[employer].iSentium/sites/default/fi les/product/documents/Fa ct_Sheet_Patients_Lyra_S ARS-CoV-2.pdf Performing Laboratory:[facility] [place] [address] [facility] (Asymptomatic ONLY)2022-04-24 04:46:57 Test Item Value Reference Range Interpretation Comments SARS-COV2/RT-PCR Negative Not Detected, (test code = Negative, See 57272-7) external report for linked test SARS-COV-2 [facility] (test code = 32852-4) IMSHA (test code = Negative result for this [...] of the Act. Fact Sheet for Healthcare Providers:https://www.MediaPhy/sites/default/f stanley/product/documents/F act_Sheet_HC_Providers_L dbr_UCGA-DcN-1.pdf Fact Sheet for Healthcare Patients:https://www.[employer].iSentium/sites/default/fi les/product/documents/Fa ct_Sheet_Patients_Lyra_S ARS-CoV-2.pdf Performing Laboratory:[facility] [place] [address] [facility]OV[facility] ([facility])2022-04-24 04:46:57 Test Item Value Reference Range Interpretation Comments SARS-COV2/RT-PCR (test Negative Not Detected, Negative, code = 0841826) See external report for linked test SARS-COV-2 PERFORMING LAB [facility] (test code = 3164698) Negative result for this test determines that [...] of the Act.Fact Sheet for Healthcare Prov iders:https://www.Voxound.iSentium/sites/default/files/product/documents/Fact_Sheet_HC _Czrpkaait_Ofxg_JTYI-XvB-6.pdfFact Sheet for Healthcare Patients:https://www.Voxound.iSentium/sites/default/files/product/docume nts/Opua_Oyoce_Muumvmkb_Chwp_HMXJ-BvV-5.pdfPerforming Laboratory:[facility], [place] [id number] 18:53:19 Test Item Value Reference Range Interpretation Comments PARTIAL THROMBOPLASTIN TIME 35.9 seconds 22.5-36.0 (BEAKER) (test code = 760) PROTHROMBIN TIME/[id number] 18:52:17 Test Item Value Reference Range Interpretation Comments PROTIME (BEAKER) 14.7 seconds 11.9-14.2 H (test code = 759) INR (BEAKER) (test 1.17 See_Comment [Automat ed message] code = 370) The system Riiid generated this result transmitted ref erence range: <=5.90. The reference range was not used to int erpret this result as normal/abnormal . RECOMMENDED COUMADIN/WARFARIN INR THERAPY RANGESSTANDARD DOSE: 2.0 - 3.0 Includes: PROPHYLAXIS for venous thrombosis, systemic embolization; TREATMENT for venous thrombosis and/or pulmonary embolus.HIGH RISK: Target INR is 2.5-3.5 for patients with mechanical heart valves.CBC W/PLT COUNT & AUTO [id number] 18:44:32 Test Item Value Reference Range Interpretation [...] PERCENT (BEAKER) (test code = 2801) SARS-COV2/RT-PCR ([facility])2022-04-22 21:00:47 Test Item Value Reference Range Interpretation Comments SARS-COV2/RT-PCR (test code = Negative Negative 5126452) Negative result for this test determines that [...] 564(g) of the Act.Testing was performed using [employer] SARS-CoV-2 assay.Fact Sheet for Healthcare Providers:https://www.Niblitz/adelfo/RT SARS-CoV-2 HCP Fact Sheet 51- 823266.pdfFact Sheet for Healthcare Patients:https://www.Niblitz/adelfo/RT SARS-CoV-2 Patient Fact Sheet EN 51-752035O2.pdfB-TYPE NATRIURETIC FACTOR (BNP) 2022-04-22 12:07:58 Test Item Value Reference Range Interpretation Comments B-TYPE NATRIURETIC PEPTIDE (BEAKER) 600 pg/mL 0-100 H (test code = 700) Sewing Machine Adjuster ID - PIAYA LCOMPREHENSIVE METABOLIC [id number] 12:03:13 Test Item Value Reference Range Interpretation [...] S NOT APPLICABLE FOR DIALYSIS PATIEN TS. Sewing Machine Adjuster ID - PIAYA LPROTHROMBIN TIME/[id number] 11:43:06 Test Item Value Reference Range Interpretation Comments PROTIME (BEAKER) 15.1 seconds 11.9-14.2 H (test code = 759) INR (BEAKER) (test 1.21 See_Comment [Automat ed message] code = 370) The system Riiid generated this result transmitted ref erence range: <=5.90. The reference range was not used to int erpret this result as normal/abnormal . RECOMMENDED COUMADIN/WARFARIN INR THERAPY RANGESSTANDARD DOSE: 2.0 - 3.0 Includes: PROPHYLAXIS for venous thrombosis, systemic embolization; TREATMENT for venous thrombosis and/or pulmonary embolus.HIGH RISK: Target INR is 2.5-3.5 for patients with mechanical heart valves.CBC W/PLT COUNT & AUTO [id number] 11:36:56 Test Item Value Reference Range Interpretation [...] (BEAKER) (test code = 2801) CT, CTA [id number] 15:27:00Unlisted Reason for Exam - Click Yes and Enter Reason Below->YesUnlisted Reason for Exam->Pre op planning, aortic anatomy and cannulation site identification, severe MR, severe [facility] 1935 Sex: FAddendum BeginsREPORT STATUS:A Addendum: I agree with the previously described non vascular findings. Sigmoid diverticulosis, without evidence for diverticulitis. Signed: Marvin Soaresip MDReport Verified Date/Time: 04/18/2022 15:27:52 Reading Location: [facility] Diagnostic Imaging Reading Room - [facility] 1.310.12Addendum EndsFINAL REPORT CT angiography of the thoracoabdominal aorta and pelvic arteries, 16-Apr-22 INDICATION: This is a 86 year old female with with severe mitral regurgitation tricuspid regurgitation, presents for preoperative assessment, for aortic anatomyand cannulation site. TECHNIQUE: Spiral acquisition before and during intravenous contrast administra tion using a [employer] multidetector CT scanner. Images were obtained before [...] An addendum will be dictated by the Mesh Worker Radiologist regarding the nonvascular findings. THE REPORT WILL ONLY BE CONSIDER ED COMPLETE AFTER THE ADDENDUM HAS BEEN DICTATED. Signed: Fabrizio Cardona MDReport Verified Date/Time: 04/17/2022 16:14:11 CT, CTA, [id number] 15:27:00Unlisted Reason for Exam - Click Yes and Enter Reason Below->YesUnlisted Reason for Exam->Pre op planning, aortic anatomy and cannulation site identification, severe MR, severe TR [facility] : 1935 Sex: FAddendum BeginsREPORT STATUS:A Addendum: I agree with the previously described non vascular findings. Sigmoid diverticulosis, without evidence for diverticulitis. Signed: Jose Ramon Soares MDRlesaort Verified Date/Time: 04/18/2022 15:27:52 Reading Location: [facility] [facility] Diagnostic Imaging Reading Room - [facility] [id number] EndsFINAL REPORT CT angiography of the thoracoabdominal aorta and pelvic arteries, 16-Apr-22 INDICATION: This is a 86 year old female with with severe mitral regurgitation tricuspid regurgitation, presents for preoperative assessment, for aortic anatomy and cannulation site. TECHNIQUE: Spiral acquisition before and during intravenous contrast administr ation using a GE multidetector CT scanner. Images were obtained before and during the dynamic passage of intravenous contrast material. Multi-planar 3-D volume-rendering reconstruction was performed using an independent workstation interactively by the interpreting physician as well as the 3-D specialist for optimal visualisation of the thoracoabdominal aorta, the pelvic arteries as well as its proximal branches. Please refer to the contrast sheet scanned in the EPIC system for the amount and route of contrast given. This exam was performed according to our departmental dose-optimisation programme,which includes automated exposure control, adjustment of the mA and/or kV according to patient size and/or use of iterative reconstruction technique. Dose modulation, iterative reconstruction, and/or weight based adjustment of the mA/kV was utilized to reduce the radiation dose to as low as reasonablyachievable. FINDINGS: VASCULAR: The central pulmonary artery is [...] not enlarged. No acute renal pathology seen andno hydronephrosis or perirenal fluid collection is identified. Small renal cysts are seen in the kidn eys, some are too small to characterise. See [...] the lower lumbar level, with associated laminectomies. Thereis also left hip replacement. CONCLUSIONS: 1. The [...] An addendum will be dictated by the Mesh Worker Radiologist regarding the nonvascular findings. THE REPORT WILL ONLY BE CONSIDERED COMPLETE AFTER THE ADDENDUM HAS BEEN DICTATED. Signed: Fabrizio Cardona MDReport Verified Date/Time: 04/17/2022 16:14:11 I-[id number] 10:19:24 Test Item Value Reference Range Interpretation Comments POC-Creatinine (test 1.0 mg/dL 0.6-1.3 : TESTE D AT [facility] 1317 code = 68563-3) [facility] 77 478: Sewing Machine Adjuster/Techni juan ID = [id number] for Rebecca Guillen POC-EGFR (test code 53 mL/min/1.73M2 = 06517-0) [facility]-[id number] 10:19:24 Test Item Value Reference Range Interpretation Comments POC-Creatinine (test 1.0 mg/dL 0.6-1.3 : TESTE D AT [facility] 1317 code = 43842-6) [facility] [place], [place] [address] 478: Sewing Machine Adjuster/Techni juan ID = [id number] for Rosey Guillenu POC-EGFR (test code 53 mL/min/1.73M2 = 02631-4) [facility]-[id number] 10:19:24 Test Item Value Reference Range Interpretation Comments POC-CREATININE 1.0 mg/dL 0.6-1.3 : [facility]ED AT [facility] (BEAKER) (test [facility] [address], code = 1859) [place] [address] 478: Sewing Machine Adjuster/Techni juan ID = [id number] for Rebecca Bello POC-EGFR 53 mL/min/1.73M2 (BEAKER) (test code = 1860) - XR CHEST 2 [id number] 00:00:00 [facility]: SCARLETT GARRETT : 1935 Sex: FFAX: Chace Sanz MD [phone] [place]: St: REG FAX: Christel Alvarez Name: SCARLETT [facility]TT [facility]: 1935 Age/S: 86/F [address] [place] [address] Blvd Unit #: [id number] Loc: [place], [place] [address]Bylu: Christel Alvarez 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 Acct: [id number] Dis Date: Status: REG [facility] PHONE #: [phone] Exam Date: 04/01/2022 1624 FAX #: [phone] Reason: PREOP EXAMS: CPT CODE: [id number] XR CHEST 2 V 93820 PROCEDURE INFORMATION: Exam: XR Chest Exam date [...] Taylor(R) Trnscrd Date/Time/By: 04/02/2022 (0739) : By: [email or web address] Orig Print D/T:S: 04/02/2022 (0741) PAGE 1 Signed ReportCOVID 19 Asymptomatic IH [id number] 19:00:00 Test Item Value Reference Range Interpretation [...] on theamount of vi donna (antigen) in e sample.This amelia t has not been FDA cleare d or approved; the t est hasbeen authori zed by FDA under an Em ergency Use Authorizati on(EUA) for use by labo ratories certified under the CLIA thatmeet the requirements to perform moderate, high or waivedcomplexit y tests. BASIC METABOLIC [id number] 16:31:00 Test Item Value Reference Range Interpretation [...] = 9.7 mg/dL 8.0-10.5 N CA) PROTHROMBIN [id number] 16:29:00 Test Item Value Reference Range Interpretation [...] (to prevent recurrent infar ct). CBC W/AUTO [id number] 16:22:00 Test Item Value Reference Range Interpretation [...] 0.00 x10 3/uL 0.0-0.1 N NRBC#) SARS-COV2/RT-PCR ([facility])2020-04-28 10:18:00 Test Item Value Reference Range Interpretation Comments SARS-COV2/RT-PCR (test code = Negative Not Detected, Negative 3390605) SARS-COV-2 PERFORMING LAB [facility] (test code = 1449307) Negative result for this test determines that [...] of the Act.Fact Sheet for Healthcare Prov iders:https://www.[employer]/sites/default/files/product/documents/Fact_Sheet_HC _Qzabrxakd_Oysf_GIFC-CnI-5.pdfFact Sheet for Healthcare Patients:https://www.[employer]/sites/default/files/product/docume nts/Azfo_Vuozq_Uoaahbnj_Wkrw_YCSK-MiY-1.pdfPerforming Laboratory:[facility] [place] [address]- MRI L-SPINE W/O CONT 2019-12-05 13:16:00 Patient Name: SCARLETT GARRETT Unit No: [id number] EXAMS: CPT CODE: [id number] MRI L-SPINE W/O CONT 54753 TECHNIQUE: Multiplanar, multisequence MRI examination performed of [...] Reported and signed by: Bartolo Brumfield M.D. [facility] NAME: SCARLETT GARRETT [address] [place] [address] PHYS: Lobo Villalba MD : 1935 AGE: 84 SEX: F [place] [address] LOC: Y.MRI PHONE #: [phone] EXAM DATE: 12/02/2019 STATUS: DEP CLI FAX #: [phone] RAD #: D/C DT PAGE 1 Signed Report (CONTINUED) PatientName: SCARLETT GARRETT Unit No: [id number] EXAMS: CPT CODE: [id number] MRI L-SPINE W/O CONT 61749 (Continued) CC: Richi Sanchez M.D. Technologist: AMRIK FORD, MRI Transcribed D/ (1316) SilvanoRika [facility] NAME: SCARLETT GARRETT [address] [place] [address] PHYS: Lobo Villalba MD : 1935 AGE: 84 SEX: F [place] [address] LOC:Y.MRI PHONE #: [phone] EXAM DATE: 12/02/2019 STATUS: DEP CLI FAX #: [phone] RAD #: D/C DT PAGE 2 Signed Report Patient Name: SCARLETT GARRETT Unit No: [id number] EXAMS: CPT CODE: [id number] L-SPINE W/O CONT 13237 (Continued) Orig Print D/T: S: 12/05/2019 (1320) [facility] NAME: SCARLETT GARRETTNISHA [address] [place] [address] PHYS: Lobo Villalba MD : 1935 AGE: 84 SEX: F [place], [place] [address] [id number] LOC: YALICE PHONE #: [phone] EXAM DATE: 12/02 STATUS: DEP CLI FAX #: [phone] RAD #: D/C DT PAGE 3 Signed Report Notes Date/Time Note Provider Source 2022-04-26 10:22:50-00:00 GUS BRITO [facility] OPERATIVE/PROCEDURE REPORT SCARLETT GARRETT FACILITY: [facility] Billing #: [id number] Room: [facility] MR #: [id number] : 1935 DATE OF PROCEDURE: 04/26/2022 SURGEON: Gus Brito MD PREOPERATIVE DIAGNOSIS: Hemothorax. POSTOPERATIVE DIAGNOSIS: Hemothorax. PROCEDURE PERFORMED: Right anterior thoracotomy, evacuation of hematoma, and placement of chest tube. RN FIRST ASSISTANT: ANNABELLA Garcia. ANESTHETIC: General endotracheal. HISTORY: The patient underwent a thoracotomy ope ration a few days back. She had retained hemothorax superiorl y. She is breathing okay, but there was not full lung expa nsion, so we took her back for evacuation. FINDINGS: The patient had about 300 mL of old cl otted blood that we removed. There was no active bleeding. DESCRIPTION OF PROCEDURE: The patient's chest wa s draped and prepped. A right anterior thoracotomy was perfor med. The sutures were removed extended through the 4th in tercostal space. We then retracted the lung and identified the hemothorax, evacuated with manual removal. The c lots were removed. We then irrigated with antibiotic solut ion, inspected all surgical areas and there was no active bleed ing. So, once the hematoma was evacuated, we irrigated with an tibiotics. We added a 28-[place] Citizen chest tube up into the apex an d then closed with multiple layers of absorbable suture. I ectly participated in all figueroa portions including evacu ation of hematoma and exploration was otherwise immediate ly available for the entire operation. Of note, we gave Ancef and vancomycin for antibiotics, which we will discon tinue within 48 hours. We did not use any specific DVT prophylax is since this is not indicated for cardiac surgical procedures . MRM/MODL /[id number] 2022-04-24 17:44:51-00:00 GUS BRITO [facility] OPERATIVE/PROCEDURE REPORT SCARLETT GARRETT FACILITY: [facility] Billing #: [id number] Room: [place] [address] MR #: [id number] : 1935 DATE OF PROCEDURE: 04/24/2022 SURGEON: Gus Brito MD PREOPERATIVE DIAGNOSES: Chronic persistent perma nent atrial fibrillation, severe mitral regurgitation, sever e tricuspid regurgitation. POSTOPERATIVE DIAGNOSES: Chronic persistent perm anent atrial fibrillation, severe mitral regurgitation, sever e tricuspid regurgitation. PROCEDURES PERFORMED: Mitral valve repair with p lacement of a 28 mm CG annuloplasty band, tricuspid valve repa ir with placement of a 28 mm triad annuloplasty band, co mplete biatrial maze procedure with AtriCure radiofrequency abla tion and cryoablation. Minimally invasive via right anter ior thoracotomy and placement of 8 mm Dacron conduit chimney in the femoral artery and femoral artery exploration fo r cannulation RN FIRST ASSISTANT: ANNABELLA Parks. ANESTHETIC: General endotracheal. HISTORY: The patient presented with chronic atri al fibrillation, also with severe mitral and tricus pid regurgitation. She understood the risks of strok e, bleeding, and and agreed to proceed. FINDINGS: The patient's etiology was mainly raquel lar dilatation. There was some mild prolapse of P2, but it was mainly annular dilatation of both the mitral and tricuspid valve pathology. There was no regurgitation at t he end of the procedure. PROCEDURE IN DETAIL: The patient was successfull y draped and prepped. There was no aortic cannulated in the a scending aorta from this minimally invasive case. We did a cutd own on the femoral artery and vein. The femoral artery was thought too small for percutaneous cannulation and be unsafe distal perfusion, so we used a side biter clamp, gave p artial heparinization and sewed an 8 mm Hemashield moe t on Dacron conduit for later cannulation because there was no other accessible area to cannulate. We then did a righ t anterior thoracotomy in the breast crease, entered the 4t h intercostal space, put in the retractor, opened up the peric ardium longitudinally. We then cannulated the femoral a rtery chimney femoral vein with a 21 and then put in a 22 meta l tip into the SVC, antegrade and retrograde, went on pump, dec ompressed the heart, and then encircled the right pulmonary ve ins at the radiofrequency ablation and did four fires from posterior and from superior in order to ablate the pulmonary v eins. We then cross clamped and arrested with cold antegrade a nd retrograde which we used intermittently throughout the proc edure with topical cooling. We opened the left atrium from the right superior pulmonary vein inferiorly. Visualizati on was very difficult given the large nature of her atrium. We were able to get a retractor and no one visualized. We the n used radiofrequency ablation to the annular lesion x3 and the inferior pulmonary connecting lesion x3. We then used the cryoprobe in order to do the superior connecting lesion for 2 minutes. We then did coronary sinus ablation for 2 minutes and annular ablation for 2 minutes. We then took 2-0 Ethibond sutures from trigone to trigone around the sonali l valve and brought through the sewing ring of a 28 mm CG ba nd from [employer] and tied in place and secured in well. There was no regurg, so we closed up the left atrium over the single layer of running 3-0 Prolene suture. We then removed t he cross-clamp cardioverted. We placed ventricular pacing wire. We then opened up the right atrium longitudinally. We th en created a 10 o'clock lesion through the coronary sinus cat heter site and a 2 o'clock lesion to the tricuspid annulus. We then made a puncture hole in the appendage and made a 10 o'c lock lesion for 2 minutes to the tricuspid annulus. We then did a free wall lesion behind in the atrial appendage on the rig ht atrium with 3-0 ablation. We then opened up the atria ostomy and then did the SVC lesions x3 and IVC lesions x3, this time then completed the maze procedure. Again, visualization of the tricuspid valve was very challenging, but we were able to slowly get sutures in half on the septal leaflet, the poste rior leaflet and 3/4 of the anterior leaflet. We brought into the sewing ring of a 28 mm triad annuloplasty band and tied in place and secured in well, so we closed up the atrium with a double layer running 4-0 Prolene suture, meticulously de-aire d the heart and weaned the patient from pump. The cannulas was r emoved, the site secured. The graft in the groin was stapled off with a TA 30 stapler and we put in multiple chest tubes an d once hemostasis was obtained, we closed with multiple layers of absorbable suture. I directly participated in al l figueroa portions including cannulation and the entire period of c ardiopulmonary bypass and placement of the Dacron conduit and f emoral cannulation and was otherwise immediately availa ble for entire operation except for a very short 10 minutes christina r the beginning during which Dr. Pam Red was immediate ly available. Of note, we gave Ancef and vancomycin for antibi otics, which we will discontinue within 48 hours. We did not use any specific DVT prophylaxis since this is not indicated for cardiac surgical procedures. MRM/MODL /[id number] 2022-04-09 15:59:00-00:00 [id number] [place] [address] PATIENT NAME: SCARLETT GARRETT ADMIT DATE: ACCOUNT NO: [id number] ROOM NO: AGE: 86 REPORT TYPE: eTRANSESOPHAGEAL ECHO REPORT SEX: F ADMITTING PHYSICIAN: ATTENDING PHYSICIAN:Chace Nava MD *[place] [address] Transesophageal Echocardiogram with Cardioversio n Patient: Scarlett Garrett Study Date: 04/02/2022 BP: 112 / 78 Location: [facility] URN: [id number] : 1935 Age: 86 Height: 69 in / 175.3 cm Gender: F Weight: 169 .6 lb / 77.1 kg BMI/BSA: 25.1 kg/m 2 / 1.93 m 2 *Ordering Physician: * Chace Nava *Interpreting Physician: * Elijah Mas MD *Composing Machine Operator/Tender: * Lorna Irving Indications: A-FIB. Study data: Transesophageal echocardiogram with cardioversion. Consent: The risks, benefits, and alternatives t o the procedure were explained to the patient and informed consent wa s obtained. Procedure: Initial setup: The [facility] in the fasting state.Intravenous access was obtained. Surface E CG leads and pulse oximetric signals were monitored. Sedation. Mode rate sedation was administered by cardiology staff. Transesophagea l echocardiography was performed. Topical anesthesia was obtained using benzocaine spray. A transesophageal probe (SN: [id number]) was inserted by the attending bearing machine operator without difficulty. Patient status: Outpatient. Patient room number: CVPREP 17. Study status: Routine. Vivek faith completion: The patient tolerated the procedure well. There were no complications. Rhythm: Atrial fibrillation. PATIENT NAME: SCARLETT GARRETT ACCOUNT #: [id number] Findings Left ventricle: The cavity size is normal. Systo lic function is normal. Right ventricle: The cavity size is normal. Syst olic function is normal. Left atrium: The atrium is dilated. The appendag e is of normal size. Emptying velocity is normal. There is no evidenc e of a thrombus in the atrial cavity or appendage. No spontaneous echo contrast is observed. Right atrium: The atrium is severely dilated. Atrial septum: No defect or patent foramen ovale is identified. Echo contrast study shows no bhxqe-vd-dtwe atrial lev el shunt. Aortic valve: The valve is trileaflet. Thickenin g, consistent with sclerosis. Cusp separation is normal. There is n o evidence of a vegetation. There is no evidence of stenosis. Th ere is no regurgitation. Mitral valve: The valve is structurally normal. There is no evidence of a vegetation. There is severe regurg itation. Tricuspid valve: The valve is structurally stu l. There is no evidence of a vegetation. There is wide-open reg urgitation. Pulmonic valve: The valve is structurally normal . There is no evidence of a vegetation. There is no regurgitat ion. Measurements Mitral valve Value MR peak v 5.07 m/sec ERO, PISA 0.35 cm 2 MR vol, PISA 66 ml Conclusions Summary: 1. Left ventricle: The cavity size is normal. Sy stolic function is normal. 2. Left atrium: The atrium is dilated. There is no evidence of a thrombus in the atrial cavity or appendage. No spontaneous echo contrast is observed. 3. Right atrium: The atrium is severely dilated. 4. Atrial septum: No defect or patent foramen ov gerson is identified. Echo contrast study shows no tolly-iv-tjpt atrial le keith shunt. 5. Aortic valve: Thickening, consistent with scl erosis. There is no evidence of a vegetation. 6. Mitral valve: There is no evidence of a veget ation. There is severe regurgitation. 7. Tricuspid valve: There is no evidence of a ve getation. There is wide-open regurgitation. 8. Pulmonic valve: There is no evidence of a veg etation. 9. Cardioversion done: Successfully converted to sinus rhythm. Prepared and electronically signed by PATIENT NAME: SCARLETT GARRETT ACCOUNT #: [id number] Elijah Mas MD 04/09/2022 15:59 Electronically Signed by Chace Nava MD on at 1559 PATIENT NAME: SCARLETT GARRETT ACCOUNT #: [id number] 2022-04-02 12:38:00-00:00 [facility] ([facility]) Clinical Note REPORT#:[id number] REPORT STATUS: Signed DATE:04/02/22 TIME: 1238 PATIENT: SCARLETT GARRETT UNIT #: [id number] ROOM/BED: : 36 AGE: 86 SEX: F ATTEND: Beatriz Nava MD ADM AUTHOR: Johnna May * ALL edits or amendments must be made on the [employer]/computer document * Clinical Note Note: STS RISK SCORES Procedure: Isolated MVR Risk of Mortality: 3.681% Renal Failure: 1.950% Permanent Stroke: 1.693% Prolonged Ventilation: 10.781% DSW Infection: 0.072% Reoperation: 5.923% Morbidity or Mortality: 17.426% Short Length of Stay: 16.028% Long Length of Stay: 12.420% at 2131 at 1940 RPT #:[id number] END OF REPORT 2022-04-02 12:17:00-00:00 [facility] ([facility]) Cardiothoracic Surgery Consult REPORT#:[id number] REPORT STATUS: Signed DATE:04/02/22 TIME: 1217 PATIENT: SCARLETT GARRETT UNIT #: [id number] ROOM/BED: : 36 AGE: 86 SEX: F ATTEND: Beatriz Nava MD ADM AUTHOR: Johnna May * ALL edits or amendments must be made on the [employer]/computer document * Rosey Potter 04/02/22 1217: History of Present Illness HPI Chief complaint: Shortness of breath PCP: PCP: Chace Nava MD Requesting Clinician Dr Nava HPI: Very pleasant 86-year-old female with past medic al history of hyperlipidemia, mitral and tricuspid valve regurgitation, right- sided heart failure, atrial fibrillation (on Eliquis) who has been experienc ing worsening shortness of breath. Recent echocardiogram showed LVEF 64%, d ilated right atrium, mitral regurgitation, moderate tricuspid regurg itation and mild to moderate pulmonary hypertension. She has been admitted to the [facility] today for LARS. CV surgery consulted for evaluation History Additional Medical History: HLD Atrial fibrillation Degenerative disc disease Additional Surgical History: Back surgery Knee Replacement Alcohol Use Denies EtOH use Drug Use Denies recreational drugs Medications: Home Medications: Medication Dose/Rte/Freq Days Qty Entered Last Max Daily Dose Reviewed ESCITALOPRAM (LEXAPRO) 20 MG PO DAILY 03/07/13 04/02/22 Strength: 10 MG TAB 0802 0847 CETIRIZINE (ZyrTEC) 5 MG PO 03/07/13 04/02/22 Strength: 5 MG TAB DAILY PRN ALLERGIES 0804 084 7 [VITAMIN A D] 1 TAB PO DAILY 03/07/13 04/02/22 Strength: 0805 0847 SOTALOL (BETAPACE) 160 MG PO BID 04/01/2204/02 Strength: 160 MG TAB 1822 0847 DILTIAZEM (CARDIZEM) 30 MG PO TID 04/01/22 Strength: 30 MG TAB 1823 0847 APIXABAN (ELIQUIS) 5 MG PO BID 04/01/22 2 Strength: 5 MG TAB 1823 0847 LEVOTHYROXINE 50 MCG PO DAILY 04/01/22 04/02/22 (SYNTHROID) 1823 0847 Strength: 50 MCG TAB MONTELUKAST (SINGULAIR) 10 MG PO DAILY 04/01/22 04/02/22 Strength: 10 MG TAB 1824 0847 MAGNESIUM OXIDE 400 MG PO DAILY 04/01/22 (MAG-OXIDE) 1824 0847 Strength: 400 MG TAB ZINC GLUCONATE 50 MG PO DAILY 04/01/22 04/02/22 Strength: 50 MG TAB 182 0847 [AREDS 2] 04/01/22 04/02/22 Strength: 1825 0847 [TUMERIC 4000 MG] DAILY 04/01/22 04/02/22 Strength: 1825 0847 traZODone (DESYREL) 100 MG PO BEDTIME 03/07/13 04/02/22 Strength: 100 MG TAB 0803 0847 ASCORBIC ACID (VITAMIN C) 2,000 MG PO DAILY 04/02/22 Strength: 1,000 MG TAB 0806 0847 [FISH OIL] 2,000 MG PO DAILY 03/07/13 04/02/22 Strength: 0807 0847 Current Hospital Medications: Cardiovascular Drugs Sig/Sneha Start time Last Medication Dose Route Stop Time Status Admin Amiodarone HCl 100 ML .STK-MED ONE 04/02 0933 D C 04/02 (NEXTERONE 150MG/D5W IV 0953 100ML) Lidocaine HCl 0 .STK-MED ONE 04/02 0922 DC (XYLOCAINE) .ROUTE Lidocaine HCl 2 ML PREOP ONCALL 04/01 1800 AC (LIDOCAINE HCL/PF) LOCAL 05/01 2359 Lidocaine HCl 2 ML PREOP ONCALL 04/01 1800 AC (LIDOCAINE HCL/PF) LOCAL 05/01 235 Central Nervous System Agents Sig/Sneha Start time Last Medication Dose Route Stop Time Status Admin Propofol 20 ML .STK-MED ONE 04/02 0922 DC (DIPRIVAN 200MG/20ML IV INJECTION) Acetaminophen 1,000 MG PREOP ONCALL 04/01 1800 CKD (TYLENOL EXTRA PO 05/01 2359 STRENGTH) Electrolytic, Caloric, And Camille Sig/Sneha Start time Last Medication Dose Route Stop Time Status Admin Lactated Ringer's 1,000 ML PREOP ONCALL 04/01 1 800 AC (LACTATED RINGERS) IV 05/01 2359 Sodium Chloride 500 ML PREOP ONCALL 04/01 1800 AC (SODIUM CHLORIDE IV 05/01 2359 0.9%) Sodium Chloride 500 ML PREOP ONCALL 04/01 1800 AC (SODIUM CHLORIDE IV 05/01 2359 0.9%) Sodium Chloride 1,000 ML PREOP ONCALL 04/01 18 00 AC (SODIUM CHLORIDE IV 05/01 2359 0.9%) Sodium Chloride 5 ML ASDIR PRN 04/01 1800 AC (SODIUM CHLORIDE) IV 05/01 1759 Sodium Chloride 10 ML ASDIR PRN 04/01 1800 AC (SODIUM CHLORIDE) IV 05/01 1759 Sodium Chloride 250 ML ASDIR PRN 04/01 1800 AC (SODIUM CHLORIDE IV 05/01 1759 0.9%) Skin And Mucous Membrane Agent Sig/Sneha Start time Last Medication Dose Route Stop Time Status Admin Benzocaine/Butamben/ 0 .STK-MED ONE 04/02 0911 DC 04/02 Tetracaine HCl MM 0953 (CETACAINE) Allergies: Coded Allergies: ciprofloxacin (Intermediate, RASH 04/01/22) levofloxacin (From LEVAQUIN) (Mild, RASH 3) Ambulatory Status Cane Review of Systems Review of Systems Constitutional: Denies: fever, malaise. Allergy/Immun: Denies: allergic reaction. Cardiovascular: Denies: palpitations. Heme: Denies: bleeding. Neuro: Denies: dizziness, headache. Objective Physical Exam VS/I O: Last Documented: Result Date Time O2 Delivery Nasal cannula 04/02 1040 O2 Flow Rate 4 04/02 1040 B/P 143/96 04/01 1840 Temp 97.8 04/01 1840 Pulse 111 04/01 1840 Resp 18 04/01 1840 24 hour I O ending at 0700: 04/02 0700 04/01 1900 Intake Total Output Total Balance Patient 170 lb Weight Weight Standing scale Measurement Method PATIENT WEIGHT: Weight (lb): 170 Weight (oz): 6.68 Weight (kg): 77.300 General appearance: alert, oriented, mental stat us normal, no respiratory distress HEENT: anicteric Neck: supple/no meningismus Cardiovascular: Bradycardia Respiratory: aerating well, symmetric expansion, no distress Abdomen: soft, non-tender, no distention Extremities: moves all Neuro/JOCKEY ROOM CUSTODIAN: alert, oriented X 3, normal speech, n o motor deficits Psychiatry: normal affect, normal mood Results Findings/Data: Laboratory Tests 04/01 1535 Chemistry Sodium (134 - 147 mEq/L) 134 Potassium (3.4 - 5.0 mEq/L) 4.5 Chloride (100 - 108 mEq/L) 100 Carbon Dioxide (21 - 33 mEq/l) 27 Anion Gap (0 - 20) 12 BUN (7 - 18 mg/dL) 15 Creatinine (0.6 - 1.3 mg/dL) 1.0 Glomerular Filtr Rate (70 - 80) 52.7 L Glucose (70 - 110 mg/dL) 75 Calcium (8.0 - 10.5 mg/dL) 9.7 Laboratory Tests 04/01 1535 Coagulation INR (0.8 - 1.2) 1.8 H PT Patient/Control Mix (9.3 - 12.9 SECONDS) 19. 7 H Laboratory Tests 04/01 1535 Hematology WBC (4.5 - 11.0 x10 3/uL) 8.5 RBC (3.54 - 5.02 x10 6/uL) 3.60 Hgb (11.0 - 15.0 g/dL) 12.0 Hct (33.0 - 45.0 %) 36.0 MCV (81.0 - 99.0 fL) 100.0 H MCH (27.0 - 33.0 pg) 33.3 H MCHC (33.0 - 37.0 g/dL) 33.3 RDW (11.5 - 14.5 %) 12.5 Plt Count (150 - 400 x10 3/uL) 225 MPV (7.0 - 9.0 fL) 9.6 H Neut % (Auto) (56.0 - 77.0 %) 66.9 Lymph % (Auto) (14.0 - 32.0 %) 14.3 [place] % (Auto) (4.8 - 9.0 %) 13.7 H Eos % (Auto) (0.3 - 3.7 %) 4.1 H Baso % (Auto) (0.0 - 2.0 %) 0.8 Neut # (Auto) (2.0 - 7.6 x10 3/uL) 5.68 Lymph # (Auto) (1.0 - 3.8 x10 3/uL) 1.21 [place] # (Auto) (0.1 - 0.8 x10 3/uL) 1.16 H Eos # (Auto) (0.0 - 0.2 x10 3/uL) 0.35 H Baso # (Auto) (0.0 - 0.2 x10 3/uL) 0.07 Abs Immat Gran (auto) (0.00 - 0.03 x10 3/uL) 0. 02 Add Manual Diff NO Immature Gran % (0.0 - 2.0 %) 0.2 Nucleated RBC % (0 - 0 %) 0.0 Nucleated RBCs # (Man) (0.0 - 0.1 x10 3/uL) 0.0 0 Laboratory Tests 04/01 1720 Serology SARS-CoV-2 Ag (Rapid) (Negative) Negative Radiology data: Recent Impressions: RADIOLOGY - XR CHEST 2 V 04/01 1624 Report Impression - Status: SIGNED Entered: 04/02/2022 0740 IMPRESSION: No acute cardiopulmonary abnormalities. Impression By: [email or web address] - Efrain Jung Diagnosis, Assessment Plan Free Text A P: 86-year-old female past medi eddie history of hyperlipidemia, mitral and tricuspid valve regurgitation, right-s ided heart failure, atrial fibrillation (on Eliquis) who has been experiencing worsening shor tness of breath. Recent echocardiogram showed LVEF 64%, dilated rig ht atrium, mitral regurgitation, moderate tricuspid regurgitation and mild to moderate pulmonary hyp ertension. She has been admitted to the hospital today for LARS. CV surge ry consulted for evaluation. PLAN Dr Ledesma explained to the patient the LARS find ings and recommended surgical mitral and tricuspid repair/ replacement. The case was discussed with Dr Nava, right and left heart cath re commended. Patient will follow up with Dr Ledesma in clinic after right and left heart cath to discus s surgery. Thank you for the consultation. The azar ent was seen and plan reviewed with Dr Baltazar Ledesma,Lauren Del Valle 04/10/221933: Attestations Physician Attestation Agree w/findings plan: I have seen and examined Ms. Garrett. I agree with the findings and plan as documented by [facility]. Briefly, 86-year-old female with severe mitral r egurgitation and moderate tricuspid regurgitation. Patient will be nefit from intervention the mitral and possibly the tricuspid valve. I had a long discu ssion with the patient, explained to her the echo finding and need for i ntervention of mitral and tricuspid valve. I discussed with her the proced ure, risk involved, benefit, alternatives including MitraClip, and complicati ons. I have also explained to the patient the need for right and left heart ca th. at 2131 at 3330 RPT #:[id number] END OF REPORT 2022-04-01 15:44:00-00:00 [id number] [place] [id number] PATIENT NAME: SCARLETT GARRETT ADMIT DATE: ACCOUNT NO: [id number] ROOM NO: AGE: 86 REPORT TYPE: eELECTROCARDIOGRAM REPORT SEX: F ADMITTING PHYSICIAN: ATTENDING PHYSICIAN:Chace Nava MD Order: [id number] Test Reason : PREOP Test Date/Time Stamp: ThuApr 01 2022 15:44:58 Blood Pressure : / mmHG Vent. Rate : 095 BPM Atrial Rate : 111 BPM P-R Int : 000 ms QRS Dur : 072 ms QT Int : 372 ms P-R-T Axes : 000 080 090 degree s QTc Int : 467 ms Atrial fibrillation Anteroseptal infarct , age undetermined Abnormal ECG No previous ECGs available Confirmed by DANIELA JOSHI MD ([id number]) on 03/19 4:28:22 PM Referred By: Chace Nava Confirmed by:NICOLE JOSHI MD at 1628 PATIENT NAME: SCARLETT GARRETT ACCOUNT #: [id number]
[2023-03-03 17:37] VITALS: BMI 21.2
[2023-03-03] MEDS ORDERED: clonazePAM 0.5 MG TAB PO PRN (17:37)
[2023-03-03] MEDS ORDERED: AMIODARONE HCL 150 MG in D5W 100 ML IV STA (17:42)
--- NOTE | 2023-03-03 17:46 | P.HP ---
Certification for Inpatient Patient admitted to: Inpatient With expected LOS: >2 Midnights Practitioner: I am a practitioner with admitting privileges, knowledge of patient current condition, hospital course, and medical plan of care. Services: Services provided to patient in accordance with Admission requirements found in Title 42 Section 412.3 of the Code of Federal Regulations Patient History Date of Service: 03/03/23 Primary Care Provider: hCristian Reason for admission: afib History of Present Illness: Patient is an office patient. she came in today after a dogbite. The patient had some dizziness. Abnormal rhythm on auscultation. We performed the an ekg. She was rate controlled. However not a regular rhythm. Discussed with Dr. Nava we decided to admit the patient for amiodarone loading and possible cardioversion. The patient agreed. Allergies ciprofloxacin [From Cipro] Allergy (Verified 09/27/22 00:06) Unknown levofloxacin [From Levaquin] Allergy (Verified 09/27/22 00:06) Rash Home Medications: Fish Oil/Dha/Epa [Fish Oil 1,200 mg Fish Oil] 1 each PO BID 08/14/15 Trazodone [Desyrel*] 100 mg PO BEDTIME 08/14/15 Magnesium [Magnesium Gluconate] 250 mg PO DAILY 01/24/19 vit A and D3 in cod liver oiL [Cod Liver Oil Softgel] 1 tab PO BID 01/24/19 Ascorbic Acid [Vitamin C*] 2,000 mg PO BID 04/27/20 Cetirizine HCl [Zyrtec] 10 mg PO DAILY 12/16/20 Cyclobenzaprine [Flexeril*] 1 tab PO PRN PRN 03/15/22 Escitalopram Oxalate [Lexapro] 20 mg PO DAILY 03/15/22 Hydrocodone Bit/Acetaminophen [Hydrocodon-Acetaminophen 5-325] 1 tab PO PRN PRN 03/15/22 Metoprolol Tartrate 1 tab PO BID 03/15/22 Montelukast Sodium [Singulair] 10 mg PO DAILY 03/15/22 - Past Medical/Surgical History Has patient received pneumonia vaccine in the past: Yes Diabetic: No -: arthritis -: depression -: severe TVR -: Hypertension -: Hypothyroidism -: hip replacement -: back surgery -: Elbow surgery -: hysterectomy -: appendectomy Psychosocial/ Personal History: Patient lives at home - Family History Father -: Heart disease Sister -: Hypertension, Stroke, Other (see notes) - Social History Smoking Status: Never smoker Alcohol use: Yes CD- Drugs: No Caffeine use: Yes Review of Systems 10-point ROS is otherwise unremarkable Cardiovascular: Palpitations Physical Examination - Physical Exam General: Alert, In no apparent distress HEENT: Atraumatic, PERRLA, Mucous membr. moist/pink, EOMI, Sclerae nonicteric Neck: Supple, 2+ carotid pulse no bruit, No LAD, Without JVD or thyroid abnormality Respiratory: Clear to auscultation bilaterally, Normal air movement Cardiovascular: Regular rate/rhythm, Normal S1 S2 Gastrointestinal: Normal bowel sounds, No tenderness Musculoskeletal: No tenderness Integumentary: No rashes Neurological: Normal gait, Normal speech, Normal strength at 5/5 x4 extr, Normal tone, Normal affect Lymphatics: No axilla or inguinal lymphadenopathy Assessment and Plan - Problems (Diagnosis) (1) Atrial fibrillation Current Visit: No Status: Chronic Plan: will hold the metoprolol. Start loading amiodarone. Consult to Dr. Nava Qualifiers: Atrial fibrillation type: paroxysmal Qualified Code(s): I48.0 - Paroxysmal atrial fibrillation (2) Dizziness Current Visit: No Status: Acute Plan: will hopefully improve with cardioversion (3) HTN (hypertension) Current Visit: No Status: Chronic Plan: restart home meds Qualifiers: Hypertension type: primary hypertension (4) Hypothyroidism Current Visit: No Status: Chronic Plan: check tsh and start the patient on home meds Qualifiers: Discharge Plan: Home Plan to discharge in: 48 Hours - Advance Directives Does patient have a Living Will: Yes Does patient have a Durable POA for Healthcare: Yes - Code Status/Comfort Care Code Status Assessed: No Code Status: Full Code Physician Review: Patient Assessed, Agree with Above Assessment and Plan Critical Care: No Time Spent Managing Pts Care (In Minutes): 75
[2023-03-03] MEDS ORDERED: AMIODARONE HCL 450 MG in D5W 241 ML IV SCH (18:00)
[2023-03-03] MEDS ORDERED: AMIODARONE HCL 900 MG in Dextrose 5%-Water 482 ML IV SCH (18:00)
[2023-03-04 07:00] LABS: Absolute Lymphocytes (CBC) 1.4 K/uL (0.7-4.9); Hematocrit 34.2 % (36.0-45.0); Lymphocytes % 13.5 % (15.3-44.8); MCV 101.4 fL (80-100); MPV 6.9 fL (7.6-11.3); RBC Red Blood Cell Count 3.38 M/uL (3.86-4.86)
[2023-03-04 07:17] LABS: Albumin 3.6 g/dL (3.4-5.0); Bilirubin Total 1.1 mg/dL (0.2-1.0); Potassium 3.6 mEq/L (3.5-5.1); Protein, Total 6.9 g/dL (6.4-8.2); Thyroid Stimulating Hormone 2.32 uIU/mL (0.358-3.740)
--- NOTE | 2023-03-04 08:02 | P.PN ---
Subjective Date of Service: 03/04/23 Primary Care Provider: Christian Chief Complaint: afib Subjective: No new changes (iv infiltrated) Review of Systems 10-point ROS is otherwise unremarkable Physical Examination - Vital Signs Temperature: 97.7 F Blood Pressure: 129/59 Pulse: 52 Respirations: 17 Pulse Ox (%): 93 - Physical Exam General: Alert, In no apparent distress HEENT: Atraumatic, PERRLA, EOMI Neck: Supple, JVD not distended Respiratory: Clear to auscultation bilaterally, Normal air movement Cardiovascular: Regular rate/rhythm, Normal S1 S2 Gastrointestinal: Normal bowel sounds, No tenderness Musculoskeletal: No tenderness Integumentary: No rashes Neurological: Normal speech, Normal tone, Normal affect Lymphatics: No axilla or inguinal lymphadenopathy - Studies Laboratory Data (last 24 hrs) 03/04/23 06:36: Sodium 131 L, Potassium 3.6, BUN 10, Creatinine 0.72, Glucose 94, Total Bilirubin 1.1 H, AST 11 L, ALT 17, Alkaline Phosphatase 51 03/04/23 06:36: WBC 10.30, Hgb 11.9 L, Hct 34.2 L, Plt Count 226 Assessment And Plan - Current Problems (Diagnosis) (1) Atrial fibrillation Current Visit: No Status: Chronic Plan: will hold the metoprolol. Start loading amiodarone. Consult to Dr. Nava 03/04 Patient iv infiltrated. she has a regular rhythm. Will discuss with Dr Nava Qualifiers: Atrial fibrillation type: paroxysmal Qualified Code(s): I48.0 - Paroxysmal atrial fibrillation (2) Dizziness Current Visit: No Status: Acute Plan: will hopefully improve with cardioversion (3) HTN (hypertension) Current Visit: No Status: Chronic Plan: restart home meds Qualifiers: Hypertension type: primary hypertension (4) Hypothyroidism Current Visit: No Status: Chronic Plan: check tsh and start the patient on home meds Qualifiers: Discharge Plan: Home Plan to discharge in: 24 Hours - Code Status/Comfort Care Code Status Assessed: No Physician Review: Patient Assessed, Agree with Above Assessment and Plan Critical Care: No Time Spent Managing PTS Care (In Minutes): 20
[2023-03-04] MEDS ORDERED: ACETAMINOPHEN 500 MG TAB PO SCH (09:00)
[2023-03-04] MEDS ORDERED: AMIODARONE HCL 200 MG TAB PO SCH ×2 (09:00)
--- NOTE | 2023-03-04 12:15 | P.DS ---
Admission Date: 03/03/23 Discharge Date: 03/04/23 Primary Care Provider: Christian Disposition: ROUTINE DISCHARGE Discharge Condition: GOOD Reason for Admission: afib - Problems (1) Atrial fibrillation Current Visit: No Status: Chronic Qualifiers: Atrial fibrillation type: paroxysmal Qualified Code(s): I48.0 - Paroxysmal atrial fibrillation (2) Dizziness Current Visit: No Status: Acute (3) HTN (hypertension) Current Visit: No Status: Chronic Qualifiers: Hypertension type: primary hypertension (4) Hypothyroidism Current Visit: No Status: Chronic Qualifiers: Brief History of Present Illness: Patient is an office patient. she came in today after a dogbite. The patient had some dizziness. Abnormal rhythm on auscultation. We performed the an ekg. She was rate controlled. However not a regular rhythm. Discussed with Dr. Marlon davis we decided to admit the patient for amiodarone loading and possible cardioversion. The patient agreed. Hospital Course: Patient was admitted and started on amiodarone. She lost her iv and was switched to PO. Seen by Dr. David His plan is metoprolol and po amiodarone. Follow up in the office. Thank you for allowing me to be a part of her care. Vital Signs/Physical Exam: Temp Pulse Resp BP Pulse Ox 97.7 F 52 17 129/59 L 93 03/04/23 08:02 03/04/23 08:02 03/04/23 08:02 03/04/23 08:02 03/04/23 08:02 General: Alert, In no apparent distress HEENT: Atraumatic, PERRLA, EOMI Neck: Supple, JVD not distended Respiratory: Clear to auscultation bilaterally, Normal air movement Cardiovascular: Regular rate/rhythm, Normal S1 S2 Gastrointestinal: Normal bowel sounds, No tenderness Musculoskeletal: No tenderness Integumentary: No rashes Neurological: Normal speech, Normal tone, Normal affect Lymphatics: No axilla or inguinal lymphadenopathy Laboratory Data at Discharge: WBC 10.30 thou/uL (4.3-10.9) 03/04/23 06:36 Hgb 11.9 g/dL (12.0-15.0) L 03/04/23 06:36 Hct 34.2 % (36.0-45.0) L 03/04/23 06:36 Plt Count 226 thou/uL (152-406) 03/04/23 06:36 Sodium 131 mEq/L (136-145) L 03/04/23 06:36 Potassium 3.6 mEq/L (3.5-5.1) 03/04/23 06:36 BUN 10 mg/dL (7-18) 03/04/23 06:36 Creatinine 0.72 mg/dL (0.55-1.02) 03/04/23 06:36 Glucose 94 mg/dL (74-106) 03/04/23 06:36 Total Bilirubin 1.1 mg/dL (0.2-1.0) H 03/04/23 06:36 AST 11 U/L (15-37) L 03/04/23 06:36 ALT 17 U/L (13-56) 03/04/23 06:36 Alkaline Phosphatase 51 U/L (45-117) 03/04/23 06:36 Home Medications: Fish Oil/Dha/Epa [Fish Oil 1,200 mg Fish Oil] 1 each PO BID 08/14/15 Trazodone [Desyrel*] 100 mg PO BEDTIME 08/14/15 Magnesium [Magnesium Gluconate] 250 mg PO DAILY 01/24/19 vit A and D3 in cod liver oiL [Cod Liver Oil Softgel] 1 tab PO BID 01/24/19 Ascorbic Acid [Vitamin C*] 2,000 mg PO BID 04/27/20 Cetirizine HCl [Zyrtec] 10 mg PO DAILY 12/16/20 Cyclobenzaprine [Flexeril*] 1 tab PO PRN PRN 03/15/22 Escitalopram Oxalate [Lexapro] 20 mg PO DAILY 03/15/22 Hydrocodone Bit/Acetaminophen [Hydrocodon-Acetaminophen 5-325] 1 tab PO PRN PRN 03/15/22 Montelukast Sodium [Singulair] 10 mg PO DAILY 03/15/22 Amiodarone HCl [Cordarone*] 200 mg PO BID 90 Days #180 tab 03/04/23 Metoprolol Tartrate 1 tab PO BID 90 Days #180 tab 03/04/23 New Medications: Amiodarone HCl [Cordarone*] 200 mg PO BID 90 Days #180 tab Metoprolol Tartrate 1 tab PO BID 90 Days #180 tab Diet: Regular Activity: Ad brai Followup: Olive Gonzales FNP [facility] [ALLIED HEALTH PROFESSIONAL] - 1 Week Mingo David MD [ACTIVE - CAN ADMIT] - 1-2 Weeks Physician Review: Patient Assessed, Agree with Above Assessment and Plan Time spent managing pt's care (in minutes): 30
[2023-03-04 12:43] VITALS: BP 153/65; TEMP 97.4
--- NOTE | 2023-03-05 00:10 | CON ---
Date of Consultation: 03/04/2023 Reason For Consultation: Admitted to Dr. Valladares on 03/03/2023 because of atrial fibrillation. I saw the patient on 03/04/2023. History Of Present Illness: Ms. Garrett is 87, has had a history of mitral valve replacement, tricuspi d valve repair, and Maze procedure, left atrial appendage closure. She has had paroxysmal atrial fib rillation. She was in the hospital recently and was taken off sotalol and beta-alanis because of [place] bradycardia. She is back on metoprolol 25 b.i.d., has been feeling some palpitation but no symp toms. She went to Dr. Valladares's office because of the and was admitted because of recurrent atrial fibrillation. Her rate was very well controlled. She was placed on amiodarone IV drip and o vernight, she is back in sinus rhythm now with sinus bradycardia with no symptoms. Past Medical History: As stated above. Allergies: INCLUDE CIPRO AND LEVAQUIN. Medications: At home include aspirin, metoprolol, and Singulair. Review of Systems: Negative. Social History: Negative. Family History: Negative. Physical Examination: Vital Signs: Heart rate is 50, sinus abiodun. HEENT: Negative. Neck: Supple with no bruit. Chest: Clear. Cardiac: Revealed sinus abiodun. Abdomen: Benign. Extremities: Revealed no clubbing, cyanosis, or edema. Diagnostic Data: Echocardiogram in 2020 is normal. Impression And Plan: Atrial fibrillation, resolved, on IV amiodarone. We will put her on amiodarone 200 b.i.d. Continue the metoprolol 25 b.i.d. She is bradycardic. We will keep an eye on that. Yue ruvalcaba is not a candidate for anticoagulation. She has already had a Maze procedure with the left atrial appendage. She has had mitral valve repair, tricuspid valve repair. We should follow her up in the office soon and do another echocardiogram. Meanwhile, continue present regimen as mentioned. She ca n go home on amiodarone 200 b.i.d. and we will see her in the office soon. RACHEL/SAUL Voice ID: [id number] Report ID: [id number]
== END 2023-03-04 12:49 | disposition home or self-care (01) ==
LOC: INTOOBSV 17:11 → 2ND 17:11
PROVIDERS: ADMIT Internal Medicine; ATTEND Internal Medicine
DX: I48.0 Paroxysmal atrial fibrillation (principal); R42 Dizziness and giddiness; I10 Essential (primary) hypertension; E03.9 Hypothyroidism, unspecified
CPT/HCPCS: 85025; 36415; 84443; 80053; J0282 ×2; J7060; G0378; G0379

== ENCOUNTER 2023-03-17 21:44 | Observation (INO) | payer OTHER ==
--- OUTSIDE RECORDS SUMMARY | 2023-03-17 21:54 | XMS REPORT | Continuity of Care Document ---
:1935 Author Organization [facility] t Address [address] [place] [address] [place] [id number] Care Team Providers Name Role Phone Asked, None Given Primary Care Physician Unavailable GUS BRITO Attending Clinician Unavailable Kamran NANCE, Emy Attending Clinician Unavailable Gus Brito MD Attending Clinician Florina FENCE INSTALLER HELPER, Warner Hobson Attending Clinician WARNER HEATON Attending Clinician Unavailable Sissy Plascencia MD Attending Clinician Raymond Jj DO Attending Clinician Tabitha Barron MD Attending Clinician Angel Ramirez MD Attending Clinician [phone] Tej CHAMBERS, Juan Hernández Attending Clinician Moody Gore RN Attending Clinician Unavailable HAMZAH FORMAN Attending Clinician Unavailable Dickson BALBUENA, Hamzah Correia Attending Clinician [phone] Chace Nava Attending Clinician Unavailable MARCO IRENE [...] Date Expiration Date S genoveva UNITED MEDICARE [id number] 2021 [facility] [place]:00 [facility] [id number] 2020 [facility] 00:00:00 O MEDICARE PART B - [id number] 2010 MEDICARE 00:00:00 GENERIC PPO - [id number] GENERIC PAYOR MEDICARE ADVANTAGE [id number] PPO - [facility] Problems Condition Condition Condition Status Onset Resolution [...] loss blood loss Rosey kes anemia anemia [facility] Thrombocyt Thrombocyt Disease Active C [facility] openia openia [facility] Hyperglyce Hyperglyce Disease Active C [facility] jonathon [facility] Allergies, Adverse Reactions, Alerts Allergy Allergy Status [...] [facility] xacin 6-14 Clear 00:00: [place] 00 [facility] CIPROFLO DRUG Active Rash 2019-10 Univers XACIN INGREDI 10-19 ity of 00:00: [address] Branch Ciproflo Propensi Active Rash Method [...] l s to drug levoflox DA Active [facility] acin 5-20 Clear 00:00: [place] 00 [facility] levoflox DA Active [facility] acin 5-20 [place] 00:00: [facility] 00 [facility] l Family History Family Member Diagnosis Comments Start Date Stop Date Source Natural father Heart attack [facility] Natural mother Brain cancer [facility] Natural sister Stroke [facility] Social History Social Habit Start Date Stop Date Quantity Comments Source [facility] History of Social 2022-12-24 2022-12-24 [facility]:00 Alcohol intake 2022-05-28 2022-05-28 1 /d [facility] 00:[facility]00 [facility] Tobacco use and 2022-04-22 2022-04-[address] [facility] exposure 00:00:00 00:00:00 [facility] Sex Assigned At [address] 00:00:00 00:[facility]:00 [facility] Center Smoking Status Start Date Stop Date Source Never smoker [facility] Center Medications Ordered Filled Start Stop [...] MG 10:39: mouth Medical tablet 23 nightly. [place] montelukast Yes 10mg QD Take [address] (SINGULAIR) 8-10 by mouth Luke s 10 mg 10:39: nightly. Medical tablet 23 Center VITAMINS A Yes QD Take by [facility] AND D ORAL 8-10 mouth [facility] 10:39: daily . [address] cholecalcif Yes 5000U QD Take 5,[address] berta, 8-10 Units by Lukes vitamin D3, 10:39: mouth Medic al 50 mcg 23 daily . [place] (2,000 unit) Cap omega-3 Yes 2g Q.5D [...] 10:39: mouth Medical magnesium 23 daily . [place] Tab ZINC Yes 50mg QD Take [address] GLUCONATE 8-10 by mouth Lukes ORAL 10:39: daily . [address] cetirizine Yes 10mg QD Take 10 [...] MG 10:39: mouth Medical tablet 23 nightly. [place] montelukast Yes 10mg QD Take [address] (SINGULAIR) 8-10 by mouth Luke s 10 mg 10:39: nightly. Medical tablet 23 [place] VITAMINS A Yes QD Take by [facility] AND D ORAL 8-10 mouth [facility]ukes 10:39: daily . [address] cholecalcif Yes 5000U QD Take 5,[address] berta, 8-10 Units by Lukes vitamin D3, 10:39: mouth Medic al 50 mcg 23 daily . [place] (2,000 unit) Cap omega-3 Yes 2g Q.5D [...] 10:39: mouth Medical magnesium 23 daily . [place] Tab ZINC Yes 50mg QD Take [address] GLUCONATE 8-10 by mouth Lukes ORAL 10:39: daily . Medical 23 Center cetirizine 2022-0 Yes 10mg QD Take 10 [...] tablet 23 (two) Center times daily. amLODIPine 2021-0 Yes 5mg QD Take 1 [facility] t (NORVASC) 5 7-20 tablet (5 Shelbie es MG tablet 00:00: mg total) Med ical 00 by mouth Center daily. aspirin 81 2021-0 Yes 81mg QD Take 1 [facility] t MG EC 7-20 tablet (81 Lukes tablet 00:00: mg total) Medica l 00 by mouth Center daily. famotidine 2021-0 Yes 20mg QD Take 1 CHI [...] mouth Center daily. DILTIAZEM 2021- No 30mg [id number] Take [address] HCL ORAL 7-19 07-19 [id number] by mouth 3 [facility]ukes 10:39: 00:00 3D (three) Medical 12 :00 times Center daily . TURMERIC 2021-0 2- No 4000mg QD Take 4,[address] ORAL 7-19 07-19 mg by Lukes 10:39: 00:00 mouth Medical 12 :00 daily . Center DILTIAZEM 2021- No 30mg Q.[id number] Take [address] HCL ORAL 7-19 07-19 [id number] by mouth 3 [facility]ukes 10:39: 00:00 3D (three) Medical 12 :00 times Center daily . TURMERIC 2021- No 4000mg QD Take 4,[address] ORAL 7-19 07-19 mg by Lukes 10:39: 00:00 mouth Medical 12 :00 daily . Center metoprolol 2021- Yes 50mg Q.[id number] Take [address] tartrate 7-19 [id number] tablet (50 [facility]ukes (LOPRESSOR) 00:00: 3D mg total) M edical 50 MG 00 by mouth 3 Center tablet (three) times daily. metoprolol 0 Yes 50mg Q.[id number] Take [address] tartrate 7-19 [id number] tablet (50 [facility] (LOPRESSOR) 00:00: 3D mg [...] 12 hours or as directed by estradiol 2015-0 Yes 2g QD Insert 2 g Me [...] N) 50 MG 15 l capsule metoprolol 2015-0 Yes 25mg Q.5D Take 25 mg M ethodi tartrate 6-[address] (LOPRESSOR) 12:11: (two) Hospi ta 25 MG 15 times a l tablet day. escitalopra 2015-0 Yes 10mg QD Take 10 mg Methodi [...] 50mg QD Take 50 mg Methodi oin 03-[address] (MACRODANTI 12:11: daily. Hosp [...] MRNA 2020-11-24 Completed Meth odist VACCINATION 00:00:00 [facility] PFIZER COVID-19 MRNA 2020-11-24 Completed Meth odist VACCINATION 00:00:00 [facility] PFIZER COVID-19 MRNA 2020-11-24 Completed Meth odist VACCINATION 00:00:00 [facility] PFIZER COVID-19 MRNA 2020-11-03 Completed Meth odist VACCINATION 00:00:00 [facility] PFIZER COVID-19 MRNA 2020-11-03 Completed Meth odist VACCINATION 00:00:00 [facility] PFIZER COVID-19 MRNA 2020-11-03 Completed Meth odist [...] kg Systolic blood 2022-05-28 10:36:00 136 mm[Hg] [facility] Diastolic blood 2022-05-28 10:36:00 79 mm[Hg] [facility] Heart rate 2022-05-28 10:36:00 89 /min [facility] Body height 2022-05-28 10:36:00 175.3 cm [facility] Body weight 2022-05-28 10:36:00 66.679 kg [facility] BMI 2022-05-28 10:36:00 21.71 kg/m2 [facility] Oxygen saturation in 2022-05-28 10:36:00 98 /min [facility] Arterial blood by Medical Ce nter Pulse oximetry Body temperature 2022-05-06 08:00:00 36.39 Deanna [facility] Respiratory rate 2022-05-06 08:00:00 19 /min [facility] Procedures Procedure Date / Time Performing Clinician Source Performed POCT-GLUCOSE METER 2022-05-06 07:45:00 Gus Brito [facility] BASIC METABOLIC PANEL 2022-05-06 05:58:00 Lux Campbell [facility] MAGNESIUM 2022-05-06 05:58:00 Lux Campbell [facility] CBC (HEMOGRAM ONLY) 2022-05-06 05:58:00 Lux Campbell [facility] XR CHEST 1 VIEW PORTABLE / 2022-05-06 05:18:00 Daniella Alonso [facility] POCT-GLUCOSE METER 2022-05-05 21:22:00 Gus Brito [facility] POCT-GLUCOSE METER 2022-05-05 16:48:00 Gus Brito [facility] POCT-GLUCOSE METER 2022-05-05 11:39:00 Brito, Gus R [facility] XR CHEST 1 VIEW PORTABLE / 2022-05-05 09:01:00 Tonia-Smart, [facility] POCT-GLUCOSE METER 2022-05-05 07:16:00 BritoGus bruce [facility] BASIC METABOLIC PANEL 2022-05-05 03:55:00 Lux Campbell [facility] MAGNESIUM 2022-05-05 03:55:00 Lux Campbell Aaron [facility] CBC (HEMOGRAM ONLY) 2022-05-05 03:55:00 Lux Campbell [facility] POCT-GLUCOSE METER 2022-05-04 21:37:00 BritoGus bruce [facility] POCT-GLUCOSE METER 2022-05-04 17:32:00 Gus Brito [facility] XR CHEST 1 VIEW PORTABLE / 2022-05-04 14:20:00 Alfie Gonsalves [facility] POCT-GLUCOSE METER 2022-05-04 12:15:00 BritoGus [facility] POCT-GLUCOSE METER 2022-05-04 08:44:00 Gus Brito [facility] XR CHEST 1 VIEW PORTABLE / 2022-05-04 06:41:00 Tonia-Smart, [facility] BASIC METABOLIC PANEL 2022-05-04 03:42:00 Lux Campbell [facility] MAGNESIUM 2022-05-04 03:42:00 Lux Campbell Aaron [facility] CBC (HEMOGRAM ONLY) 2022-05-04 03:42:00 Adrian Lux [facility] POCT-GLUCOSE METER 2022-05-03 21:24:00 Gus Brito [facility] POCT-GLUCOSE METER 2022-05-03 17:03:00 Gus Brito [facility] XR CHEST 1 VIEW PORTABLE / 2022-05-03 12:56:00 Tonia-Smart, [facility] POCT-GLUCOSE METER 2022-05-03 11:29:00 BritoGus [facility] POCT-GLUCOSE METER 2022-05-03 07:19:00 Brito, Gus Mason [facility] BASIC METABOLIC PANEL 2022-05-03 05:18:00 Lux Campbell [facility] MAGNESIUM 2022-05-03 05:18:00 Lux Campbell [facility] CBC (HEMOGRAM ONLY) 2022-05-03 05:18:00 Lux Campbell [facility] POCT-GLUCOSE METER 2022-05-02 21:05:00 BritoGus [facility] POCT-GLUCOSE METER 2022-05-02 16:39:00 BritoGus bruce [facility] XR CHEST 1 VIEW PORTABLE / 2022-05-02 13:32:00 [facility] POCT-GLUCOSE METER 2022-05-02 12:17:00 BritoGus [facility] 2D ECHO W/ DOPPLER 2022-05-02 12:16:00 [facility] (CW/PW/COLOR) [facility] 2D ECHO W/ DOPPLER 2022-05-02 10:26:33 [facility] (CW/PW/COLOR) [facility] POCT-GLUCOSE METER 2022-05-02 07:14:00 BritoGus bruce [facility] XR CHEST 1 VIEW PORTABLE / 2022-05-02 06:43:00 Clyde Mix Denzelethel [facility] BASIC METABOLIC PANEL 2022-05-02 04:44:00 Lux Campbell [facility] MAGNESIUM 2022-05-02 04:44:00 Lux Campbell [facility] CBC (HEMOGRAM ONLY) 2022-05-02 04:44:00 Lux Campbell [facility] POCT-GLUCOSE METER 2022-05-01 21:14:00 Gus Brito [facility] POCT-GLUCOSE METER 2022-05-01 17:23:00 Gus Brito [facility] POCT-GLUCOSE METER 2022-05-01 11:24:00 Gus Brito [facility] XR CHEST 1 VIEW PORTABLE / 2022-05-01 09:01:00 Maria Dolores Johnson [facility] POCT-GLUCOSE METER 2022-05-01 07:39:00 Tiffany Gus Mason [facility] XR CHEST 1 VIEW PORTABLE / 2022-05-01 06:46:00 Clyde Mix [facility] BASIC METABOLIC PANEL 2022-05-01 04:27:00 Lux Campbell [facility] MAGNESIUM 2022-05-01 04:27:00 Adrian [facility] CBC (HEMOGRAM ONLY) 2022-05-01 04:27:00 Lux Campbell Aaron [facility] POCT-GLUCOSE METER 2022-04-30 21:16:00 Brito Gus Mason [facility] POCT-GLUCOSE METER 2022-04-30 17:14:00 Brito Gus Mason [facility] POCT-GLUCOSE METER 2022-04-30 11:56:00 Анна [facility] POCT-GLUCOSE METER 2022-04-30 07:25:00 Анна [facility] XR CHEST 1 VIEW PORTABLE / 2022-04-30 07:07:00 Clyde Mix [facility] POCT-GLUCOSE METER 2022-04-29 21:20:00 Raymond Jj [facility] POCT-GLUCOSE METER 2022-04-29 16:15:00 Анна [facility] POCT-GLUCOSE METER 2022-04-29 10:59:00 Анна [facility] XR CHEST 1 VIEW PORTABLE / 2022-04-29 10:50:00 Heide Gaytan [facility] XR CHEST 1 VIEW PORTABLE / 2022-04-29 09:20:00 Shravan Joseph [facility] POCT-GLUCOSE METER 2022-04-29 06:59:00 Raymond Jj [facility] CBC W/PLT COUNT & AUTO 2022-04-29 03:48:00 Odilia Alaniz [facility] BASIC METABOLIC PANEL 2022-04-29 03:48:00 Odilia Alaniz [facility] MAGNESIUM 2022-04-29 03:48:00 Corbin [facility] PHOSPHORUS 2022-04-29 03:48:00 [facility]ON[facility]ED 2022-04-29 03:48:00 Corbin [facility] CBC W/PLT COUNT & AUTO 2022-04-29 03:48:00 Corbin [facility] (CELLAVISION MANUAL DIFF) 2022-04-29 03:48:00 Odilia Alaniz denilson [facility] POCT-GLUCOSE METER 2022-04-29 01:31:00 Raymond Jj [facility] XR CHEST 1 VIEW PORTABLE / 2022-04-29 01:09:00 Odilia Alaniz [facility] POCT-GLUCOSE METER 2022-04-28 16:23:00 Temo [facility] POCT-GLUCOSE METER 2022-04-28 11:48:00 [facility] XR CHEST 1 VIEW PORTABLE / 2022-04-28 11:10:00 Arnulfo Duarte [facility] CBC W/PLT COUNT & AUTO 2022-04-28 03:28:00 Corbin [facility] BASIC METABOLIC PANEL 2022-04-28 03:28:00 [facility] 2022-04-28 03:28:00 Corbin [facility] PHOSPHORUS 2022-04-28 03:28:00 Process Eng, Odilia [facility] CALCIUM, IONIZED 2022-04-28 03:28:00 Corbin [facility] CBC W/PLT COUNT & AUTO 2022-04-28 03:28:00 Corbin [facility] (CELLAVISION MANUAL DIFF) 2022-04-28 03:28:00 Odilia Alaniz [facility] XR CHEST 1 VIEW PORTABLE / 2022-04-28 01:00:00 Odilia Alaniz [facility] POCT-GLUCOSE METER 2022-04-28 00:07:00 Temo [facility] PREPARE RBC 2022-04-27 23:54:00 Gus Brito [facility] POCT-GLUCOSE METER 2022-04-27 17:57:00 [facility]SE [facility]ER 2022-04-27 11:02:00 Temo [facility] XR CHEST 1 VIEW PORTABLE / 2022-04-27 07:52:00 Odilia Alaniz [facility] POCT-GLUCOSE METER 2022-04-27 07:37:00 Temo [facility] BLOOD GAS, ARTERIAL 2022-04-27 05:42:00 Odilia Alaniz [facility] I [facility] OXYGEN SATURATION, 2022-04-27 05:42:[address] [facility] CBC W/PLT COUNT & AUTO 2022-04-27 05:41:00 Odilia Alaniz [facility] BASIC METABOLIC PANEL 2022-04-27 05:41:00 Corbin [facility] MAGNESIUM 2022-04-27 05:41:00 Corbin [facility] PHOSPHORUS 2022-04-27 05:41:00 [facility] CALCI[facility], IONIZED 2022-04-27 05:41:00 Corbin [facility] CBC W/PLT COUNT & AUTO 2022-04-27 05:41:00 Corbin [facility] (CELLAVISION MANUAL DIFF) 2022-04-27 05:41:00 Odilia Alaniz [facility] POCT-GLUCOSE METER 2022-04-27 00:23:00 [facility] PREPARE LEUKO-REDUCED RBC 2022-04-26 23:54:00 Jayce Mauricio Ther alonso [facility] XR CHEST 1 VIEW PORTABLE / 2022-04-26 20:34:00 Jayce Mauricio The obdulio [facility] HEMOGLOBIN AND HEMATOCRIT 2022-04-26 20:28:00 Odilia Alaniz [facility] POCT-GLUCOSE METER 2022-04-26 17:25:00 [facility] PREPARE PLASMA 2022-04-26 11:43:00 Gus Brito [facility] XR CHEST 1 VIEW PORTABLE / 2022-04-26 11:41:00 Odilia Alaniz [facility] OXYGEN SATURATION, 2022-04-26 11:24:00 Corbin [facility] BLOOD GAS, ARTERIAL 2022-04-26 11:06:00 Corbin [facility] CBC (HEMOGRAM ONLY) 2022-04-26 10:52:00 Corbin [facility] BASIC METABOLIC PANEL 2022-04-26 10:52:00 Corbin [facility] MAGNESIUM 2022-04-26 10:52:00 Corbin [facility] PHOSPHORUS 2022-04-26 10:52:00 Corbin [facility] CALCIUM, IONIZED 2022-04-26 10:52:00 Corbin [facility] LACTIC ACID, ARTERIAL 2022-04-26 10:52:00 [facility] PT/APTT 2022-04-26 10:52:00 Odilia Alaniz [facility] FIBRINOGEN 2022-04-26 10:52:00 Odilia Alaniz [facility] TRANSFUSE LEUKO-REDUCED 2022-04-26 09:34:00 Jayce Mauricio [facility] RED BLOOD CELLS [facility] RRL CRITICAL LABS 2022-04-26 09:12:15 Tabitha Barron [facility] (ABG,NA,K,H&H,GLUCOSE) Medical C enter CALCIUM, IONIZED 2022-04-26 09:12:15 Tabitha Barron [facility] BLOOD GAS, ARTERIAL 2022-04-26 09:12:15 Tabitha Barron [facility] SODIUM NA-STAT LAB 2022-04-26 09:12:15 Tabitha Barron [facility] POTASSIUM-STAT LAB 2022-04-26 09:12:15 Tabitha Barron [facility] GLUCOSE-STAT LAB 2022-04-26 09:12:15 Tabitha Barron [facility] HGB/HCT (H&H) - STAT LAB 2022-04-26 09:12:15 Tabitha Barron [facility] THORACOTOMY 2022-04-26 08:27:00 Gus Brito [facility] POCT-GLUCOSE METER 2022-04-26 05:49:00 Sissy Plascencia [facility] BASIC METABOLIC PANEL 2022-04-26 02:04:00 Arnulfo Duarte [facility] MAGNESIUM 2022-04-26 02:04:00 GeraldArnulfo burch [facility] PHOSPHORUS 2022-04-26 02:04:00 Arnulfo Duarte [facility] CBC (HEMOGRAM ONLY) 2022-04-26 02:04:00 Gerald [facility] CALCIUM, IONIZED 2022-04-26 02:04:00 Clyde Mix [facility] XR CHEST 1 VIEW PORTABLE / 2022-04-26 01:47:00 Odilia Alaniz [facility] PREPARE RBC 2022-04-25 23:54:00 Gus Brito [facility] PREPARE PLATELETS 2022-04-25 23:54:00 Gus Brito [facility] PREPARE CRYOPRECIPITATE 2022-04-25 23:54:00 Gus Brito [facility] POCT-GLUCOSE METER 2022-04-25 23:50:00 Temo [facility] BASIC METABOLIC PANEL 2022-04-25 18:27:00 [facility] LACTIC ACID, ARTERIAL 2022-04-25 18:27:00 [facility] OXYGEN SATURATION, 2022-04-25 18:27:00 [facility] HEMOGLOBIN AND HEMATOCRIT 2022-04-25 18:27[facility] PO[facility] 2022-04-25 16:29:00 Temo [facility] POCT-GLUCOSE METER 2022-04-25 13:09:00 Temo [facility] CBC (HEMOGRAM ONLY) 2022-04-25 13:07:00 Odilia Alaniz [facility] PT/APTT 2022-04-25 13:07:00 Odilia Alaniz [facility] FIBRINOGEN 2022-04-25 13:07:00 Odilia Alaniz [facility] CT CHEST WITHOUT IV 2022-04-25 10:14:00 Odilia Alaniz [facility] CBC (HEMOGRAM ONLY) 2022-04-25 09:33:00 Odilia Alaniz [facility] POCT-GLUCOSE METER 2022-04-25 08:07:00 Temo [facility] HEMATOCRIT-STAT LAB 2022-04-25 06:42:00 Arnulfo Duarte [facility] POCT-GLUCOSE METER 2022-04-25 05:58:00 Sen, [facility] XR CHEST 1 VIEW PORTABLE / 2022-04-25 05:37:00 Jayce Mauricio The obdulio [facility] PA INSERT 2022-04-25 05:10:52 Sloane, Rupesh Polycarp [facility] CATH,ART,PERCUT,SHORTTERM Med[facility] LACTIC ACID, VENOUS 2022-04-25 04:24:00 Jayce Mauricio Asha [facility] I [facility] BLOOD GAS, VENOUS 2022-04-25 04:24:00 Jayce Mauricio [facility] PROTHROMBIN TIME/INR 2022-04-25 03:48:00 Jayce Mauricio [facility] APTT 2022-04-25 03:48:00 Jayce Mauricio [facility] FIBRINOGEN 2022-04-25 03:48:00 Aria Mauriciodarrius [facility] BASIC METABOLIC PANEL 2022-04-25 03:06:00 Arnulfo Duarte C [facility] MAGNESIUM 2022-04-25 03:06:00 Gerald [facility] PHOSPHORUS 2022-04-25 03:06:00 [facility] CBC (HEMOGRAM ONLY) 2022-04-25 03:06:00 [facility] CALCIUM, IONIZED 2022-04-25 03:06:00 Clyde Mix [facility] HEPATIC FUNCTION PANEL 2022-04-25 03:06:00 Jayce Mauricio [facility] POCT-GLUCOSE METER 2022-04-25 02:11:00 Temo [facility] XR CHEST 1 VIEW PORTABLE / 2022-04-25 01:42:00 Odilia Alaniz [facility] POCT-GLUCOSE METER 2022-04-24 23:52:00 Temo [facility] ECG 12-LEAD 2022-04-24 21:44:11 Unknown, [facility] ECG 12-LEAD 2022-04-24 21:44:11 Unknown, Hl[facility] RRL CRITICAL LABS 2022-04-24 21:16:00 Odilia Alaniz [facility] (ABG,NA,K,H&H,GLUCOSE) Medical C enter BLOOD GAS, ARTERIAL 2022-04-24 21:16:00 Le, [facility] SODIUM NA-STAT LAB 2022-04-24 21:16:00 Le, [facility] POTASSIUM-STAT LAB 2022-04-24 21:16:00 Le, [facility] GLUCOSE-STAT LAB 2022-04-24 [facility] - [facility] 2022-04-24 21:16:00 Le, [facility] CALCIUM, IONIZED 2022-04-24 19:59:00 [place], [facility] LACTIC ACID, ARTERIAL 2022-04-24 19:59:00 [place], [facility] RRL CRITICAL LABS 2022-04-24 19:59:00 Odilia Alaniz [facility] (ABG,NA,K,H&H,GLUCOSE) Medical C enter BLOOD GAS, ARTERIAL 2022-04-24 19:59:00 Le, [facility] SODIUM NA-STAT LAB 2022-04-24 19:59:00 Le, [facility] POTASSIUM-STAT LAB 2022-04-24 19:59:00 Le, [facility] GLUCOSE-STAT LAB 2022-04-24 19:59:00 [facility] - STAT LAB 2022-04-24 19:59[facility]OL[facility] 2022-04-24 19:52:00 [place], [facility] MAGNESIUM 2022-04-24 19:52:00 [place], [facility] CBC W/PLT COUNT & AUTO 2022-04-24 18:05:00 Gerald [facility] RRL CRITICAL LABS 2022-04-24 18:05:00 [facility], [facility] (ABG,NA,K,H&H,GLUCOSE) Medical C enter BLOOD GAS, ARTERIAL 2022-04-24 18:05:00 [facility], [facility] SODIUM NA-STAT LAB 2022-04-24 18:05:00 [facility], [facility] POTASSIUM-STAT LAB 2022-04-24 18:05:00 [facility], [facility] GLUCOSE-STAT LAB 2022-04-24 18:05:00 [facility], [facility] HGB/HCT (H&H) - STAT LAB 2022-04-24 18:05:00 [facility], [facility] CBC W/PLT COUNT & AUTO 2022-04-24 18:05:00 [facility] (CELLAVISION MANUAL DIFF) 2022-04-24 18:05:00 [facility] Benito la [facility] XR CHEST 1 VIEW PORTABLE / 2022-04-24 15:54:00 [facility] PROTHROMBIN TIME/INR 2022-04-24 15:47:00 [facility], [facility] APTT 2022-04-24 15:47:00 [facility], [facility] FIBRINOGEN 2022-04-24 15:47:00 [facility], [facility] OXYGEN SATURATION, 2022-04-24 15:47:00 [facility], [facility] LACTIC ACID, ARTERIAL 2022-04-24 15:47:00 [facility], [facility] I [facility] CALCIUM, IONIZED 2022-04-24 15:46:00 [place], Nduka [facility] CBC (HEMOGRAM ONLY) 2022-04-24 15:46:00 [facility] [facility] BASIC METABOLIC PANEL 2022-04-24 15:46:00 Arnulfo Duarte [facility] BLOOD GAS, ARTERIAL 2022-04-24 15:46:00 Gerald, [facility] MAGNESIUM 2022-04-24 15:46:00 Gerald, [facility] PHOSPHORUS 2022-04-24 15:46:00 Gerald, [facility] ANESTHESIA PERIPHERAL 2022-04-24 14:49:53 [facility] TRANSFUSE CRYOPRECIPITATE 2022-04-24 13:50:00 James [facility] RRL CRITICAL LABS 2022-04-24 13:47:20 [facility] (ABG,NA,K,H&H,GLUCOSE) [facility] enter CALCIUM, IONIZED 2022-04-24 13:47:20 James [facility] PROTHROMBIN TIME/INR 2022-04-24 13:47:20 James [facility] APTT 2022-04-24 13:47:[address] [facility] FIBRINOGEN 2022-04-24 13:47:[address] [facility] PLATELET COUNT 2022-04-24 13:47:[address] [facility] BLOOD GAS, ARTERIAL 2022-04-24 13:47:20 Bee [facility] SODIUM NA-STAT LAB 2022-04-24 13:47:20 [facility] POTASSIUM-[facility] LAB 2022-04-24 13:47:20 Bee [facility] GLUCOSE-STAT LAB 2022-04-24 13:47:20 [facility] ([facility] - STAT LAB 2022-04-24 13:47:20 Angel Ramirez [facility] POCT-ACT 2022-04-24 13:35:00 Temo, [facility] PROTHROMBIN TIME/INR 2022-04-24 13:31:25 [facility] FIBRINOGEN 2022-04-24 13:31:25 [facility] 2022-04-24 13:03:00 Sen, [facility] RRL CRITICAL LABS 2022-04-24 13:02:09 Angel Ramirez [facility] (ABG,NA,K,H&H,GLUCOSE) [facility] enter CALCIUM, IONIZED 2022-04-24 13:02:09 James [facility] PROTHROMBIN TIME/INR 2022-04-24 13:02:09 James [facility] APTT 2022-04-24 13:02:[address] [facility] FIBRINOGEN 2022-04-24 13:02:[address] [facility] BLOOD GAS, ARTERIAL 2022-04-24 13:02:09 James [facility] SODIUM NA-STAT LAB 2022-04-24 13:02:09 James [facility] POTASSIUM-STAT LAB 2022-04-24 13:02:09 [facility] GLUCOSE-STAT LAB 2022-04-24 13:02:09 James [facility] HGB/HCT (H&H) - STAT LAB 2022-04-24 13:02:09 Angel Ramirez [facility] TRANSFUSE LEUKO-REDUCED 2022-04-24 12:50:00 Angel Ramirez I [facility] POCT-ACT 2022-04-24 12:02:00 Temo [facility] RRL CRITICAL LABS 2022-04-24 11:59:47 Odilia Alaniz [facility] (ABG,NA,K,H&H,GLUCOSE) Medical C enter BLOOD GAS, ARTERIAL 2022-04-24 11:59:47 Essie [facility] SODIUM NA-STAT LAB 2022-04-24 11:59:47 [facility] 2022-04-24 11:59:47 [facility] 2022-04-24 11:59:47 [facility] - STAT LAB 2022-04-24 11:59:47 [facility] 2022-04-24 11:32:00 Temo [facility] RRL CRITICAL LABS 2022-04-24 11:29:33 [facility] (ABG,NA,K,H&H,GLUCOSE) Medical C enter BLOOD GAS, ARTERIAL 2022-04-24 11:29:33 Essie [facility] SODIUM NA-STAT LAB 2022-04-24 11:29:33 [facility] POT[facility] 2022-04-24 11:29:33 Essie [facility] GLUCOSE-STAT LAB 2022-04-24 11:29:33 [facility]&H) - STAT LAB 2022-04-24 11:29:33 [facility]ISCELLANEOUS LAB ORDER 2022-04-24 11:23:11 Angel Ramirez [facility] PLATELET COUNT 2022-04-24 11:23:11 Angel Ramirez [facility] RRL CRITICAL LABS 2022-04-24 11:00:10 Odilia Alaniz [facility] (ABG,NA,K,H&H,GLUCOSE) Medical C enter BLOOD GAS, ARTERIAL 2022-04-24 11:00:10 Essie [facility] SODIUM NA-STAT LAB 2022-04-24 11:00:10 Essie, [facility] POTASSIUM-STAT LAB 2022-04-24 11:00:10 , [facility] GLUCOSE-STAT LAB 2022-04-24 11:00:10 [facility] HGB/HCT (H&H) - STAT LAB 2022-04-24 11:00:10 [facility] TRANSFUSE LEUKO-REDUCED 2022-04-24 11:00:00 Angel Ramirez [facility] RED BLOOD CELLS [facility] POCT-ACT 2022-04-24 10:52:00 Temo [facility] RRL CRITICAL LABS 2022-04-24 10:50:28 Odilia Alaniz [facility] (ABG,NA,K,H&H,GLUCOSE) Medical C enter BLOOD GAS, ARTERIAL 2022-04-24 10:50:28 Essie, [facility] SODIUM NA-STAT LAB 2022-04-24 10:50:28 [facility] POTASSIUM-STAT LAB 2022-04-24 10:50:28 [facility] GLUCOSE-STAT LAB 2022-04-24 10:50:28 [facility] HGB/HCT (H&H) - STAT LAB 2022-04-24 10:50:28 [facility] ANESTHESIA LARS 2022-04-24 10:43:26 Radha Becerril [facility] POCT-ACT 2022-04-24 10:23:00 Temo [facility] RRL CRITICAL LABS 2022-04-24 10:22:17 Odilia Alaniz [facility] (ABG,NA,K,H&H,GLUCOSE) Medical C enter BLOOD GAS, ARTERIAL 2022-04-24 10:22:17 [facility] NA-[facility] 2022-04-24 10:22:17 [facility] POTASSIUM-STAT LAB 2022-04-24 10:22:17 [facility] GLU[facility]SE-STAT [facility] 2022-04-24 10:22:17 [facility] (H&H) - STAT LAB 2022-04-24 10:22:17 [facility] PO[facility]-ACT 2022-04-24 09:25:00 Sen Sissy [facility] TRANSFUSE LEUKO-REDUCED 2022-04-24 08:34:00 Jayce Mauricio [facility] RED BLOOD CELLS [facility] RRL CRITICAL LABS 2022-04-24 08:01:56 [facility] (ABG,NA,K,H&H,GLUCOSE) [facility] enter CALCIUM, IONIZED 2022-04-24 08:01:56 Bee [facility] BLOOD GAS, ARTERIAL 2022-04-24 08:01[facility] 2022-04-24 08:01:56 [facility] POTASSIUM-STAT LAB 2022-04-24 08:01:56 [facility] GLUCOSE-STAT LAB 2022-04-24 08:01:56 James [facility] HGB/HCT (H&H) - STAT LAB 2022-04-24 08:01:56 Angel Ramirez [facility] REPAIR, MITRAL VALVE 2022-04-24 07:14:00 BritoGus [facility] REPAIR, TRICUSPID VALVE 2022-04-24 07:14:00 BritoGus [facility] ABLATION,RADIOFREQUENCY 2022-04-24 07:14:00 BritoGus [facility] CARDIAC-THORASCOPIC/ Medical [address] ter LAPAROSCOPIC APPROACH THORACOTOMY 2022-04-24 07:14:00 Gus Brito [facility] MAZE PROCEDURE, USING 2022-04-24 07:14:00 Gus Brito [facility] RADIOFREQUENCY ABLATION [facility] ECHOCARDIOGRAM, 3D, 2022-04-24 07:14:00 Gus Brito [facility] TRANSESOPHAGEAL [facility] SARS-COV2/RT-PCR ([facility] & 2022-04-24 00:14:00 Clyde Mix [facility] REF LABS) [facility] ECG 12-LEAD 2022-04-23 20:45:18 Anay [facility]us [facility] ECG 12-LEAD 2022-04-23 20:45:18 Unknown, Hl7 [facility] ECG 12-LEAD 2022-04-23 20:44:44 Unknown, Hl7 [facility] ABORH, MANUAL 2022-04-23 18:26:00 Sonia Still [facility] PROTHROMBIN TIME/INR 2022-04-23 18:25:00 Anay [facility]us [facility] APTT 2022-04-23 18:25:00 Anay Lemus [facility] CBC W/PLT COUNT & AUTO 2022-04-23 18:25:[address] [facility] DIFFERENTIAL [facility] CBC W/PLT COUNT & AUTO 2022-04-23 18:25:[address] S [facility] DIFFERENTIAL [facility] R & L CATH / CORONARY 2022-04-23 09:59:00 Sissy Plascencia [facility] ANGIOS (+/- LV) [facility] ECG 12-LEAD 2022-04-23 07:57:40 [facility] CATH REPORT - SCAN 2022-04-23 00:00:00 Oscar Riddle [facility] PROTHROMBIN TIME/INR 2022-04-22 11:13:00 Hamzah Forman [facility] COMPREHENSIVE METABOLIC 2022-04-22 11:13:[address] [facility] PANEL [facility] CBC W/PLT COUNT & AUTO 2022-04-22 11:13:00 Hamzah Forman [facility] DIFFERENTIAL [facility] B-TYPE NATRIURETIC FACTOR 2022-04-22 11:13:00 Ham[address] [facility] (BNP) [facility] TYPE AND SCREEN, AUTOMATED 2022-04-22 11:13:00 Hamzah Forman [facility] CBC W/PLT COUNT & AUTO 2022-04-22 11:13:00 Hamzah Forman [facility] DIFFERENTIAL [facility] SARS-COV2/RT-PCR ([facility] & 2022-04-22 10:53:[address] [facility] REF LABS) [facility] CTA ABDOMEN & PELVIS 2022-04-16 09:00:00 Hamzah Forman [facility] CTA CHEST 2022-04-16 09:00:00 Hamzah Forman [facility] POCT-CREATININE 2022-04-16 08:45:00 Dickson Hamzah [facility] CK 2013-06-29 10:52:00 [facility] Plan of Care Planned Activity Planned Date Details Comments Source Future Scheduled 2023-05-28 Tobacco Cessation [facility] Test 00:00:00 [facility] r Screening (12+) [code = Tobacco Cessation Counseling and Screening (12+)] Future Scheduled 2023-01-23 SHINGLES VACCINES (1 Met [facility] Test 19:35:05 of 2) [code = SHINGLES VACCINES (1 of 2)] Future Scheduled 2023-01-23 65+ PNEUMOCOCCAL [facility] Test 19:35:05 VACCINE (1 - PCV) [code = 65+ PNEUMOCOCCAL VACCINE (1 - PCV)] Future Scheduled 2023-01-23 COVID-19 VACCINE (3 - [facility] Test 19:35:05 Booster for Pfizer series) [code = COVID-19 VACCINE (3 - Booster for Pfizer series)] Future Scheduled 2023-01-23 INFLUENZA VACCINE [facility] Test 19:35:05 [code = INFLUENZA VACCINE] Future Scheduled 2022-08-22 HEPATITIS B VACCINES [facility] Test 20:41:35 (1 of 3 - 3-dose series) [code = HEPATITIS B VACCINES (1 of 3 - 3-dose series)] Future Scheduled 2022-08-22 SHINGLES VACCINES (1 [facility] Test 20:41:35 of 2) [code = [...] Future Scheduled 2022-08-22 HEPATITIS B VACCINES [facility] Test 20:41:35 (1 of 3 - 3-dose series) [code = HEPATITIS B VACCINES (1 of 3 - 3-dose series)] Future Scheduled 2022-08-22 SHINGLES VACCINES (1 [facility] Test 20:41:35 of 2) [code = [...] Department ID 2022-04-10 Inpatient GUS FONSECA Surgery [id number] SLE 09:11:07 2022-06-09 2022-06-[address] [facility] [id number] 00:[facility] 00:00:00 [facility] 2022-05-28 2022-05-[address] [facility] [id number] 10:00:00 10:15:00 Visit Florina [facility] 2022-05-28 2022-05-28 Outpatient FLORINA [facility] [id number] SLE 09:34:35 09:34:35 2022-05-28 2022-05-28 Outpatient [facility] [id number] SLE 00:00:00 00:00:00 2022-05-19 2022-05-[address] [facility] [id number] 00:[facility] 00:00:00 Only [facility] 2022-04-23 2022-05-06 Inpatient GUS FONSECA [facility] Surgery [id number] SLE 06:47:00 11:59:00 2022-04-23 2022-05-[address] [facility] [id number] [facility] 06:47:00 11:59:00 Encounter Raymond Jj Marc R [facility] 2022-04-26 2022-04-[address] [facility] [id number] 08:00:00 11:51:00 [facility] 2022-04-26 2022-04-[address] [facility] [id number] 08:35:00 10:44:00 Event Tabitha [facility] 2022-04-24 2022-04-24 Outpatient BCM BC [id number] [facility] 00:00:00 23:59:00 [facility] 2022-04-24 2022-04-[address] [facility] [id number] [facility] 07:35:00 15:21:00 Event TejJuan [facility] 2022-04-24 2022-04-[address] [facility] [id number] 07:30:00 14:19:00 [facility] 2022-04-23 2022-04-[address] [facility] [id number] 11:20:00 13:33:00 [facility] 2022-04-23 2022-04-23 Outpatient [facility] [id number] [facility] 06:47:00 06:47:00 [facility] 2022-04-23 2022-04-23 [facility] [id number] [facility] 06:47:00 06:47:00 [facility] 2022-04-22 2022-04-22 Outpatient [facility] [id number] SLE 14:56:24 23:59:00 2022-04-22 2022-04-22 [facility] [id number] 14:30:00 23:59:00 [facility] 2022-04-22 2022-04-22 Outpatient [facility] [id number] SLE 10:32:04 10:32:04 2022-04-22 2022-04-22 Office EL Temo Sissy [facility] [id number] 10:00:00 10:15:00 Visit Moody Gore [facility] 2022-04-16 2022-04-16 Outpatient FELICIANO [facility] [id number] SLSL 07:50:52 23:59:00 HAMZAH 2022-04-16 2022-04-16 [facility] [id number] 07:50:52 23:59:00 Encounter Hamzah Correia [facility] 2022-04-16 2022-04-16 Outpatient STAS COLUNGA [facility] [id number] SLSL 07:49:57 07:49:57 HAMZAH 2022-04-16 2022-04-16 [facility] [id number] 07:49:57 07:49:57 Encounter Hamzah robison [facility] 2022-04-10 2022-04-10 [facility] [id number] 00:00:00 00:00:00 Only Hamzah dai [facility] 2022-04-09 2022-04-[address] [facility] [id number] 10:30:00 11:00:00 Visit Hamzah Forman [facility] 2022-04-09 2022-04-09 Outpatient FELICIANO [facility] SLE [id number] SLEH 10:17:18 10:17:18 HAMZAH 2022-04-02 2022-04-02 Outpatient JANIS ValladaresDOMINIC OUTD [id number] [facility] 05:16:00 05:16:00 Chace 80 [facility] 2022-04-02 2022-04-02 Outpatient JANIS ValladaresCL HCACL [id number] [facility] 05:16:00 05:16:00 Chace [id number] [facility] 2021-02-08 2021-02-08 Outpatient MARCO CISNEROS [facility] [id number] [facility] 15:00:00 15:00:00 MARCO IRENE [facility] 2020-12-20 2020-12-20 Outpatient R MARCO IRENE [facility] [id number] Univers 00:00:00 00:00:00 MARIA VICTORIA MARCO solano [facility] 2020-11-24 2020-11-24 Outpatient [facility] [id number] [place] 00:00:00 00:00:[address] 2020-11-13 2020-11-13 Telephone Maria Victoria [facility] [id number] 00:00:00 00:00:00 Marco Gao [id number] [place] [id number] Professio [phone] [facility] 2020-11-03 2020-11-03 Outpatient [facility] [id number] [place] 00:00:00 00:00:[address] 2020-11-02 2020-11-02 Office Maria Victoria [facility] [id number] 14:12:48 16:16:50 Visit Marco Gao [id number] [place] [id number] Professio [id number] nal 2 [facility] 2020-11-02 2020-11-02 Outpatient R [facility] [id number] Univers 14:20:00 14:20:00 [facility] 2020-10-24 2020-10-24 Outpatient R MADELYN [facility] [id number] Univers 11:00:00 11:00:00 RONAN solano o f [facility] 2020-09-11 2020-09-11 Outpatient R MARCO IRENE [facility] [id number] Univers 15:00:00 15:00:00 MARCO IRENE [facility] 2020-08-19 2020-08-19 Emergency X KIANNA [facility] ERT [id number] Univers 09:20:00 09:20:00 IVAN solano [facility] 2020-05-23 2020-05-23 Outpatient HUST, [facility] [id number] [place] [address] 00:00:00 00:00:00 DANE [address] 2020-05-23 2020-05-23 Outpatient MARIAN [facility] [id number] [place] 00:00:00 00:00:00 DANE 770 Method i 2019-12-02 2019-12-02 Outpatient MICK Sanchez [id number] [facility] 12:15:00 12:15:00 Lobo [id number] [facility] 2013-06-29 2013-06-29 Outpatient [facility] [id number] [facility] 09:24:46 09:24:46 JILL avila of Medicin e Results Test Description Test Time Test Comments Results Result Comments Source POC-Glucose meter 2022-05-06 08:07:07 Test Item Value Reference Range Interpretation Comme nts POC-Glucose Meter (test code = 84 mg/dL 70-110 : TESTED AT [facility] [address] [facility] 1538) [facility] 30: Arch Cushion Skiving Machine Operator/Techni juan ID = [id number] for Claudio, Adriana Lab Interpretation (test code = Normal 34737-9) [facility]-Glucose [id number] 08:07:07 Test Item Value Reference Range Interpretation Comments POC-Glucose Meter (test 84 mg/dL 70-110 : TE STED AT [facility] code = 1538) [address] [place] [address], [facility] 30: Arch Cush[employer] Skiving Machine Operator/Techni juan ID = [id number] for Claudio, Adriana Lab Interpretation (test Normal code = 69944-8) [facility]-GLUCOSE [id number] 08:07:07 Test Item Value Reference Range Interpretation Comments POC-GLUCOSE METER 84 mg/dL 70-110 : TESTED A T [facility] 6720 (BEAKER) (test code = BERTNE R [facility], 1538) [address]21: Arch Cushion Skiving Machine Operator/Techni juan ID = [id number] for Chandni os, Adriana RAD, CHEST, 1 VIEW, NON [id number] 07:22:00Reason for exam:->ptxShould this be performed at the bedside?->Yes [facility] : 1935 Sex: FFINAL REPORT CLINICAL HISTORY: ptx TECHNIQUE: 1 view of the chest. COMPARISON: 05/05/2022 IMPRESSION: The small right pneumothorax is unchanged. Patchy bilateral lower lung opacities areunchanged. A trace right effusion is unchanged. The cardiomediastinal silhouette is unchanged. Signed: Luis Conklineport Verified Date/Time: 05/06/2022 07:22:15 Reading Location: [facility] Radiology Reading Room BASIC METABOLIC [id number] 07:01:04 Test Item Value Reference Range Interpretation [...] S NOT APPLICABLE FOR DIALYSIS PATIEN TS. [employer] Machine Operator ID - DRAGAN [id number] 07:01:04 Test Item Value Reference Range Interpretation Comments MAGNESIUM (BEAKER) (test code = 1.9 mg/dL 1.6-2.6 627) [employer] Machine Operator ID - DRAGAN WCBC (HEMOGRAM ONLY)2022-05-06 06:28:34 Test Item Value [...] 0-0 (BEAKER) (test code = 413) POCT-GLUCOSE [id number] 21:33:50 Test Item Value Reference Range Interpretation Comments POC-GLUCOSE METER 95 mg/dL 70-110 : TESTED A T [facility] 6720 (BEAKER) (test code = [facility], 1538) 29547: Arch Cushion Skiving Machine Operator/Techni juan ID = [id number] for Sherri Haider POCT-GLUCOSE [id number] 17:00:08 Test Item Value Reference Range Interpretation Comments POC-GLUCOSE METER 123 mg/dL 70-110 H : TESTED A T [facility] 6720 (BEAKER) (test code = [facility], 1538) 92061: Arch Cushion Skiving Machine Operator/Techni juan ID = [id number] for HU NTER, HIWITHA RAD, CHEST, 1 VIEW, NON [id number] 12:36:00Reason for exam:->R/o pneumothoraxShould this be performed at the bedside?->Yes [facility] : 1935 Sex: FFINAL REPORT CLINICAL HISTORY: R/o pneumothorax TECHNIQUE: 1 view of the chest. COMPARISON: 05/04/2022 IMPRESSION: The small right pneumothorax is unchanged. Right chest wall subcutaneous emphysema is again seen. Mild bilateral lung opacities and small pleural effusions are unchanged. There is no significant cardiomegaly. Signed: Luis Conklin Verified Date/Time: 05/05/2022 12:36:46 Reading Location: [facility] Radiology Reading Room POCT- GLUCOSE [id number] 11:51:51 Test Item Value Reference Range Interpretation Comments POC-GLUCOSE METER 76 mg/dL 70-110 : TESTED A [employer] [employer] 6720 ([employer]) (test code = [facility], 1538) 75444: Arch Cushion Skiving Machine Operator/Techni juan ID = [id number] for LEIGH ER, HIWITHA POCT-GLUCOSE [id number] 07:27:49 Test Item Value Reference Range Interpretation Comments POC-GLUCOSE METER 84 mg/dL 70-110 : TESTED A T [facility] 6720 ([employer]) (test code = [facility], 1538) 55947: Arch Cushion Skiving Machine Operator/Techni juan ID = [id number] for LEIGH ER, HIWITHA BASIC METABOLIC [id number] 05:14:34 Test Item Value Reference Range Interpretation [...] S NOT APPLICABLE FOR DIALYSIS PATIEN TS. Arch C[employer]ion Skiving Machine Operator ID Brooklynn ARCHIBALD [id number] 05:14:34 Test Item Value Reference Range Interpretation Comments MAGNESIUM (BEAKER) (test code = 1.9 mg/dL 1.6-2.6 627) Arch [employer] Skiving Machine Operator GONZALO ARCHIBALD WCBC (HEMOGRAM ONLY)2022-05-05 04:29:36 Test Item [...] 0-0 (BEAKER) (test code = 413) POCT-GLUCOSE [id number] 21:48:26 Test Item Value Reference Range Interpretation Comments POC-GLUCOSE METER 97 mg/dL 70-110 : TESTED A T [facility] 6720 (BEAKER) (test code = [employer] [facility], 1538) 75609: Arch Cushion Skiving Machine Operator/Techni juan ID = [id number] for Sherri Haider POCT-GLUCOSE [id number] 17:44:55 Test Item Value Reference Range Interpretation Comments POC-GLUCOSE METER 85 mg/dL 70-110 : TESTED A T [facility] 6720 (BEAKER) (test code = [employer] [facility], 1538) 42848: Arch Cushion Skiving Machine Operator/Techni juan ID = [id number] for Birdie Betts RAD, CHEST, 1 VIEW, NON [id number] 14:47:00Reason for exam:->chest tube removalShould this be performed at the bedside?->Yes [facility] 1935 Sex: FFINAL [...] Ann Verified Date/Time: 05/04/2022 14:47:19 Reading Location: [address] Consult Reading Room POCT-GLUCOSE [id number] 12:27:08 Test Item Value Reference Range Interpretation Comments POC-GLUCOSE METER 93 mg/dL 70-110 : TESTED A T [facility] 6720 ([facility] (test code = [facility] [place], 1538) 26718: Arch Cushion Skiving Machine Operator/Techni juan ID = [id number] for Birdie Betts RAD, CHEST, 1 VIEW, NON [id number] 09:09:00Reason for exam:->R/o pneumothoraxShould this be performed at the bedside?->Yes [facility] 1935 Sex: FFINAL REPORT RAD, CHEST, 1 VIEW, NON DEPT INDICATION: R/o pneumothorax COMPARISON: Prior day's exam FINDINGS: Portable frontal view of the chest. IMPRESSION: Support Lines: Right chest tube. Lungs and pleura: Unchanged small right apical pneumothorax. Small right effusion. Heart and mediastinum: Stable contours. Additional findings: None. Signed: Kyara Marcus Verified Date/Time: 05/04/2022 09:09:00 POCT-GLUCOSE [id number] 08:56:25 Test Item Value Reference Range Interpretation Comments POC-GLUCOSE METER 118 mg/dL 70-110 H : [facility] ([facility]AKER) (test code = ELSI MONZON [place], 1538) [address]: Arch C[employer] Skiving Machine Operator/Techni juan ID = [id number] for Birdie Alvarado BASIC MET[employer]OLIC [id number] 04:43:51 Test Item Value Reference Range Interpretation [...] S NOT APPLICABLE FOR DIALYSIS PATIEN TS. Arch Cushion Skiving Machine Operator ID - DELLA [id number] 04:43:51 Test Item Value Reference Range Interpretation Comments MAGNESIUM (BEAKER) (test code = 1.7 mg/dL 1.6-2.6 627) Arch Cushion Skiving Machine Operator ID - DELLA GCBC (HEMOGRAM ONLY)2022-05-04 [...] 0-0 (BEAKER) (test code = 413) POCT-GLUCOSE [id number] 21:36:15 Test Item Value Reference Range Interpretation Comments POC-GLUCOSE METER 123 mg/dL 70-110 H : TESTED A T [facility] 6720 (BEAKER) (test code = ELSI Mason [facility], 1538) 42715: Arch Cushion Skiving Machine Operator/Techni juan ID = [id number] for Sherri Wiseman POCT-GLUCOSE [id number] 17:15:07 Test Item Value Reference Range Interpretation Comments POC-GLUCOSE METER 99 mg/dL 70-110 : TESTED A T [facility] 6720 (BEAKER) (test code = ELSI Mason [facility], 1538) 25523: Arch Cushion Skiving Machine Operator/Techni juan ID = [id number] for Birdie Betts RAD, CHEST, 1 VIEW, NON [id number] 13:29:00Reason for exam:->r/o pneumothoraxShould this be performed at the bedside?->Yes [facility] 1935 Sex: FFINAL [...] Luna Ann Verified Date/Time: 05/03/2022 13:29:36Reading Location: [address] Consult Reading Room POCT- GLUCOSE [id number] 11:41:15 Test Item Value Reference Range Interpretation Comments POC-GLUCOSE METER 103 mg/dL 70-110 : TESTED A T [facility] 6720 (BEAKER) (test code = [facility] Marlon [facility], 1538) 27104: Arch Cushion Skiving Machine Operator/Techni juan ID = [id number] for Birdie Alvarado POCT-GLUCOSE [id number] 07:30:50 Test Item Value Reference Range Interpretation Comments POC-GLUCOSE METER 86 mg/dL 70-110 : TESTED A T [facility] 6720 (BEAKER) (test code = NIRMALETHEL Marlon [facility], 1538) 86000: Arch Cushion Skiving Machine Operator/Techni juan ID = [id number] for Birdie Betts [id number] 06:26:15 Test Item Value Reference Range Interpretation Comments MAGNESIUM (BEAKER) (test code = 1.9 mg/dL 1.6-2.6 627) Arch Cushion Skiving Machine Operator ID - DELLA GBASIC METABOLIC [id number] 06:26:14 Test Item Value Reference Range Interpretation [...] S NOT APPLICABLE FOR DIALYSIS PATIEN TS. Arch Cushion Skiving Machine Operator ID - DELLA GCBC (HEMOGRAM ONLY)2022-05-03 [...] 0-0 (BEAKER) (test code = 413) POCT-GLUCOSE [id number] 21:16:35 Test Item Value Reference Range Interpretation Comments POC-GLUCOSE METER 101 mg/dL 70-110 : TESTED A T [facility] 6720 (MIKEAKER) (test code = ELSI Mason [facility], 1538) 92753: Arch Cushion Skiving Machine Operator/Techni juan ID = [id number] for Sherri Wiseman POCT-GLUCOSE [id number] 16:51:48 Test Item Value Reference Range Interpretation Comments POC-GLUCOSE METER 83 mg/dL 70-110 : TESTED A T [facility] 6720 (DESIRE) (test code = ELSI Mason [facility], 1538) 41834: Arch Cushion Skiving Machine Operator/Techni juan ID = [id number] for JEFFREY HALL 2D Echo W/Doppler(CW/PW/Color)2022-05-02 14:50:42Ejection FractionSLEH ECHO [facility] W/Doppler(CW/PW/Color)2022-05-02 14:50:42Ejection FractionSLE ECHO [facility]LAB [facility], 1 V[facility], NON [id number] 14:10:00Reason for exam:->R/O pneumoShould this be performed at the bedside?->[facility] : 1935 Sex: FFINAL [...] heart size and vascularity. Signed: Jose Ramon Soaresort Verified Date/Time: 05/02/2022 14:10:15 Reading Location: [facility] Radiology Reading Room RAD, CHEST, 1 VIEW, NON [id number] 13:14:00Reason for exam:->s/p CT surgeryShould this be performed at the bedside?->Yes [facility] : 1935 Sex: FFINAL [...] Yang Verified Date/Time: 05/02/2022 13:14:45 Reading Location: [facility] Radiology Reading Room POCT-GLUCOSE [id number] 12:31:33 Test Item Value Reference Range Interpretation Comments POC-GLUCOSE METER 100 mg/dL 70-110 : TESTED A T [facility] 6720 (BEAKER) (test code = [facility], 1538) 46348: Arch Cushion Skiving Machine Operator/Techni juan ID = [id number] for Gabbi Roberts POCT-GLUCOSE [id number] 07:26:29 Test Item Value Reference Range Interpretation Comments POC-GLUCOSE METER 83 mg/dL 70-110 : TESTED A T [facility] 6720 (BEAKER) (test code = ELSI Mason [place], 1538) 058[address]: Arch Cushion Skiving Machine Operator/Techni juan ID = [id number] for JEFFREY HALL BASIC METABOLIC [id number] 06:08:27 Test Item Value Reference Range Interpretation [...] S NOT APPLICABLE FOR DIALYSIS PATIEN TS. Arch Cushion Skiving Machine Operator ID - DRAGAN [id number] 06:08:27 Test Item Value Reference Range Interpretation Comments MAGNESIUM (BEAKER) (test code = 1.7 mg/dL 1.6-2.6 627) Arch Cushion Skiving Machine Operator ID - DRAGAN WCBC (HEMOGRAM ONLY)2022-05-02 [...] 0-0 (BEAKER) (test code = 413) POCT-GLUCOSE [id number] 21:26:19 Test Item Value Reference Range Interpretation Comments POC-GLUCOSE METER 106 mg/dL 70-110 : TESTED A T [facility] 6720 (BEAKER) (test code = [facility], 153) 74534: Arch Cushion Skiving Machine Operator/Techni juan ID = [id number] for JAVI SWENSON POCT-GLUCOSE [id number] 17:37:12 Test Item Value Reference Range Interpretation Comments POC-GLUCOSE METER 81 mg/dL 70-110 : TESTED A T [facility] 6720 (BEAKER) (test code = [facility], 153) 28890: Arch Cushion Skiving Machine Operator/Techni juan ID = [id number] for WILL IAMS, TYNEKA POCT-GLUCOSE [id number] 11:46:18 Test Item Value Reference Range Interpretation Comments POC-GLUCOSE METER 100 mg/dL 70-110 : TESTED A T [facility] 6720 (BEAKER) (test code = [facility], 153) 60483: Arch Cushion Skiving Machine Operator/Techni juan ID = [id number] for SANTINO SOLOMON RAD, CHEST, 1 VIEW, NON [id number] 10:08:00Reason for exam:->Shortness of breath after chest tube removal [facility] : 1935 Sex: FFINAL [...] MDReport Verified Date/Time: 05/01/2022 10:08:33 Reading Location: [facility] Radiology Reading Room RAD, CHEST, 1 VIEW, NON [id number] 09:40:00Reason for exam:->s/p CT surgeryShould this be performed at the bedside?->Yes [facility] : 1935 Sex: FFINAL [...] the right chest wall Signed: Darwin Albright MDRepfreeman heart institute Verified Date/Time: 05/01/2022 09:40:35 Reading Location: [facility] Radiology Reading Room POCT-GLUCOSE [id number] 07:52:00 Test Item Value Reference Range Interpretation Comments POC-GLUCOSE METER 87 mg/dL 70-110 : TESTED A T [facility] 6720 (BEAKER) (test code = [facility], 1538) 73402: Arch Cushion Skiving Machine Operator/Techni juan ID = [id number] for WILL [facility] BASIC METABOLIC [id number] 05:35:18 Test Item Value Reference Range Interpretation [...] S NOT APPLICABLE FOR DIALYSIS PATIEN TS. Arch Cushion Skiving Machine Operator ID - DELLA [id number] 05:35:18 Test Item Value Reference Range Interpretation Comments MAGNESIUM (BEAKER) (test code = 1.6 mg/dL 1.6-2.6 627) Arch Cushion Skiving Machine Operator ID - DELLA GCBC (HEMOGRAM ONLY)2022-05-01 [...] 0-0 (BEAKER) (test code = 413) POCT-GLUCOSE [id number] 21:29:06 Test Item Value Reference Range Interpretation Comments POC-GLUCOSE METER 115 mg/dL 70-110 H : TESTED A T [facility] 6720 (BEAKER) (test code = [facility], 1538) 69514: Arch Cushion Skiving Machine Operator/Techni juan ID = [id number] for REBECA SADLER SE POCT-GLUCOSE [id number] 17:31:57 Test Item Value Reference Range Interpretation Comments POC-GLUCOSE METER 94 mg/dL 70-110 : TESTED A T [facility] 6720 (BEAKER) (test code = [facility], 1538) 96890: Arch Cushion Skiving Machine Operator/Techni juan ID = [id number] for Adriana Patel POCT-GLUCOSE [id number] 12:08:03 Test Item Value Reference Range Interpretation Comments POC-GLUCOSE METER 107 mg/dL 70-110 : TESTED A T [facility] 6720 (BEAKER) (test code = [facility], 1538) 04652: Arch Cushion Skiving Machine Operator/Techni juan ID = [id number] for BobbyDenzel michelle RAD, CHEST, 1 VIEW, NON [id number] 08:33:00Reason for exam:->s/p CT surgeryShould this be performed at the bedside?->Yes [facility] : 1935 Sex: FFINAL REPORT CHEST AP PORTABLE Comparison exam: 04/29/2022 History provided: Follow-up after chest surgery Right chest tube unchanged in appearance. Right apical pneumothorax appears improved, currently estimated at 10-15% by volume. Basilar atelectatic change remains with small effusions. Subcutaneous emphysema on the right unchanged. Signed: Jose Ramon Soares MDReport Verified Date/Time: 04/30/2022 08:33:10 Reading Location: [facility] Diagnostic Imaging Reading Room - [facility] 1310.12 POCT-GLUCOSE [id number] 07:37:15 Test Item Value Reference Range Interpretation Comments POC-GLUCOSE METER 107 mg/dL 70-110 : TESTED A T [facility] 6720 (DESIRE) (test code = ELSI [place], 1538) 47159: Arch Cushion Skiving Machine Operator/Techni juan ID = [id number] for Denzel Rosales RAD, CHEST, 1 VIEW, NON [id number] 22:45:00Reason for exam:->post CT removal Should this be performed at the bedside?->Yes [facility] : 1935 Sex: FFINAL [...] 04/29/2022 22:45:51 RAD, CHEST, 1 VIEW, NON [id number] 22:36:00Reason for exam:->right pleural chest tube removalShould this be performed at the bedside?->Yes [facility] : 1935 Sex: FFINAL [...] osseous structures are unremarkable. Signed: Curtis Garza MDRepfreeman heart institute Verified Date/Time: 04/29/2022 22:36:37 POCT-GLUCOSE [id number] 21:32:06 Test Item Value Reference Range Interpretation Comments POC-GLUCOSE METER 107 mg/dL 70-110 : [facility]ED A [facility] ([employer]) (test code = [facility], 1538) 57061: Arch Cushion Skiving Machine Operator/Techni juan ID = [id number] for GALEN SANCHES POCT-GLUCOSE [id number] 16:27:06 Test Item Value Reference Range Interpretation Comments POC-GLUCOSE METER 79 mg/dL 70-110 : [facility] ([employer]) (test code = [facility], 1538) 35353: Arch Cushion Skiving Machine Operator/Techni juan ID = [id number] for Kylee Olivera, CHEST, 1 VIEW, NON [id number] 11:48:00Reason for exam:->post opShould this be performed at the bedside?->Yes [facility] : 1935 Sex: FFINAL [...] Albright Verified Date/Time: 04/29/2022 11:48:25 Reading Location: [facility] Radiology Reading Room -GLUCOSE [id number] 11:10:43 Test Item Value Reference Range Interpretation Comments POC-GLUCOSE METER 80 mg/dL 70-110 : TESTED A T [facility] 6720 ([facility]) (test code = [facility] [place], 1538) 79170: Arch Cushion Skiving Machine Operator/Techni juan ID = [id number] for Joie Welch CBC W/PLT COUNT & AUTO [id number] 09:22:21 Test Item Value Reference Range Interpretation Comments WHITE BLOOD CELL COUNT (Real SavvyAKER) 11.7 K/ L 3.5-10.5 H (test code [...] CONCENTRATION Adequate (CELLAVISION)(BEAKER) (test code = 3438) Arch Cushion Skiving Machine Operator ID - Noel comments: Slide comments:POCT-GLUCOSE [id number] 07:10:50 Test Item Value Reference Range Interpretation Comments POC-GLUCOSE METER 91 mg/dL 70-110 : TESTED A T [facility] 6720 (BEAKER) (test code = [facility] [place], 1538) 14834: Arch Cushion Skiving Machine Operator/Techni juan ID = [id number] for Armaan charles (contract)Angelo BASIC METABOLIC [id number] 04:56:58 Test Item Value Reference Range Interpretation [...] S NOT APPLICABLE FOR DIALYSIS PATIEN TS. Arch Cushion Skiving Machine Operator ID - PIPAVAN [id number] 04:56:58 Test Item Value Reference Range Interpretation Comments MAGNESIUM (BEAKER) (test code = 1.7 mg/dL 1.6-2.6 627) Arch Cushion Skiving Machine Operator ID - PIPAVAN [id number] 04:56:58 Test Item Value Reference Range Interpretation Comments PHOSPHORUS (BEAKER) (test code = 2.5 mg/dL 2.3-4.7 604) Arch Cushion Skiving Machine Operator ID - PIPAVAN LCALCIUM, [id number] 04:51:14 Test Item Value Reference Range Interpretation Comments CALCIUM IONIZED (BEAKER) (test 1.16 mmol/L 1.12-1.27 code = 698) PH, BLOOD (BEAKER) (test code = 7.38 1810) POCT-GLUCOSE [id number] 01:42:33 Test Item Value Reference Range Interpretation Comments POC-GLUCOSE METER 82 mg/dL 70-110 : TESTED A T [facility] 6720 (BEAKER) (test code = ELSI Mason [facility], 1538) 63982: Arch Cushion Skiving Machine Operator/Techni juan ID = [id number] for Scarlett Matthews POCT-GLUCOSE [id number] 16:36:01 Test Item Value Reference Range Interpretation Comments POC-GLUCOSE METER 85 mg/dL 70-110 : TESTED A T [facility] 6720 (BEAKER) (test code = ELSI Mason [facility], 1538) 46395: Arch Cushion Skiving Machine Operator/Techni juan ID = [id number] for STARLA RSON, ZANE RAD, CHEST, 1 VIEW, NON [id number] 15:36:00Reason for exam:->assess for R ptx after chest tubes place to water seal in setting of air leakShould this be performed at the bedside?->Yes [facility] : 1935 Sex: FAddendum BeginsREPORT STATUS:A The above findings were discussed with nurse Shereen Chaney, who acknowledged the findings, on 04/28/2022 at 3:33 PM. Signed: Darwin Albright VerifiedDate/Time: 04/28/2022 15:36:39 Reading Location: [facility] Radiology Reading RoomAddendum EndsFINAL REPORT RAD, [...] Albright Verified Date/Time: 04/28/2022 15:33:04 Reading Location: [facility] Radiology Reading Room POCT-GLUCOSE [id number] 12:00:43 Test Item Value Reference Range Interpretation Comments POC-GLUCOSE METER 88 mg/dL 70-110 : Notified RN/MD: TESTED (DESIRE) (test code = AT [facility] 6720 GE 1538) [place], [address]: Arch Cushion Skiving Machine Operator/Techni juan ID = [id number] for Luna Browne RAD, CHEST, 1 VIEW, NON [id number] 09:43:00Reason for exam:->post opShould this be performed at the bedside?->Yes [facility] : 1935 Sex: FFINAL REPORT RAD, CHEST, 1 VIEW, NON DEPT INDICATION: post op COMPARISON: Prior day's exam TECHNIQUE: Portable frontal view of the chest. FINDINGS: Support Lines and Devices: The right IJ [place] catheter was removed. Lungs and pleura: Unchanged airspace and pleural opacities. No pneu mothorax identified. Heart and mediastinum: Stable contours. Stable surgical changes. Additional findings: None. IMPRESSION: 1.Two right-sided chest tubes without pneumothorax identified.2.Left retrocardiac opacity, representing singly or in combination airspace disease, atelectasis, or pleural effusion.3.Small left pleural effusion. Signed: Darwin Albright MDReport Verified Date/Time: 04/28/2022 09:43:34 Reading Location: [facility] Radiology Reading Room CBC W/PLT COUNT & AUTO [id number] 07:27:01 Test Item Value Reference Range Interpretation [...] CONCENTRATION Decreased (CELLAVISION)(BEAKER) (test code = 3438) Arch Cushion Skiving Machine Operator ID - Dontae Dato-onUser comments: Slide comments:[id number] 04:46:08 Test Item Value Reference Range Interpretation Comments PHOSPHORUS (BEAKER) 2.2 mg/dL 2.3-4.7 L Specimen slightly (test code = 604) hemolyzed Arch Cushion Skiving Machine Operator ID - DRAGAN WBASIC METABOLIC [id number] 04:46:08 Test Item Value Reference Range Interpretation [...] S NOT APPLICABLE FOR DIALYSIS PATIEN TS. Arch Cushion Skiving Machine Operator ID - DRAGAN [id number] 04:46:07 Test Item Value Reference Range Interpretation Comments MAGNESIUM (BEAKER) 2.0 mg/dL 1.6-2.6 Specimen slightly (test code = 627) hemolyzed Arch Cushion Skiving Machine Operator ID - DRAGAN ABREUALCIUM, [id number] 04:06:50 Test Item Value Reference Range Interpretation Comments CALCIUM IONIZED (BEAKER) (test 1.17 mmol/L 1.12-1.27 code = 698) PH, BLOOD (BEAKER) (test code = 7.35 1810) POCT-GLUCOSE [id number] 00:18:38 Test Item Value Reference Range Interpretation Comments POC-GLUCOSE METER 105 mg/dL 70-110 : TESTED A T [facility] 6720 (BEAKER) (test code = [facility], 1538) 68925: Arch Cushion Skiving Machine Operator/Techni juan ID = [id number] for Bubba marcsu (contract) Janet kim Lilian [id number] 23:54:00 Test Item Value Reference Range Interpretation Comments CROSSMATCH (test code = 2264) COMPATIBLE Unit ABO (test code = O Pos 8477582) UNIT NUMBER (test code = [id number] 934-0) Status (test code = 7795197) [facility] Blood Bank Product (test code RED BLOOD CELLS = 2263) PRODUCT CODE (test code = H7792S67 933-2) [facility] [id number] 23:54:00 Test Item Value Reference Range Interpretation Comments CROSSMATCH (test code = 2264) COMPATIBLE Unit ABO (test code = O Pos 3808579) UNIT NUMBER (test code = [id number] 934-0) Status (test code = 2725327) [place] Blood Bank Product (test code RED BLOOD CELLS = 2263) PRODUCT CODE (test code = Q7711T73 933-2) [facility] CenterPOCT-GLUCOSE [id number] 18:08:29 Test Item Value Reference Range Interpretation Comments POC-GLUCOSE METER 163 mg/dL 70-110 H : TESTED A T [facility] 6720 (BEAKER) (test code = [facility], 1538) 78766: Arch Cushion Skiving Machine Operator/Techni juan ID = [id number] for Mckay lala (contract)Felix POCT-GLUCOSE [id number] 11:14:41 Test Item Value Reference Range Interpretation Comments POC-GLUCOSE METER 144 mg/dL 70-110 H : Notified RN/MD: (BEAKER) (test code = TESTED AT [facility] 6463 5381) [place], [address]: Arch Cushion Skiving Machine Operator/Techni juan ID = [id number] for Vargas Tavarez (CELLAVISION MANUAL DIFF)2022-04-27 09:28:58 [...] CONCENTRATION Decreased (CELLAVISION)(BEAKER) (test code = 3438) Arch Cushion Skiving Machine Operator ID - Norma OverholtUser comments: Slide comments:CBC W/PLT COUNT & AUTO [id number] 09:28:57 Test Item Value Reference Range Interpretation [...] = 413) RAD, CHEST, 1 VIEW, NON [id number] 08:19:00Reason for exam:->post opShould this be performed at the bedside?->Yes [facility] : 1935 Sex: FFINAL REPORT RAD, CHEST, 1 VIEW, NON DEPT INDICATION: post op COMPARISON: Prior day's exam FINDINGS: Portable frontal view of the chest. IMPRESSION: Support Lines: Right chest tubes. [place] tip overlies the pulmonary outflow tract. Lungs and pleura: Small bilateral effusions and [place] cent atelectasis. Unchanged small right apical pneumothorax. Heart and mediastinum: Stable contours.Stable surgical changes. Additional findings: None. Signed: Kyara Marcus MDReport Verified Date/Time: 04/27/2022 08:19:36 -GLUCOSE [id number] 07:49:42 Test Item Value Reference Range Interpretation Comments POC-GLUCOSE METER 121 mg/dL 70-110 H : Notified RN/MD: (BEAKER) (test code = TESTED AT [facility] 8952 6927) [facility], [address]: Arch Cushion Skiving Machine Operator/Techni juan ID = [id number] for Pa ppas, Laura [id number] 06:55:59 Test Item Value Reference Range Interpretation Comments PHOSPHORUS (BEAKER) (test code = 2.9 mg/dL 2.3-4.7 604) Arch Cushion Skiving Machine Operator ID - THERESA MBASIC METABOLIC [id number] 06:55:58 Test Item Value Reference Range Interpretation [...] S NOT APPLICABLE FOR DIALYSIS PATIEN TS. Arch Cushion Skiving Machine Operator ID - THERESA [id number] 06:55:58 Test Item Value Reference Range Interpretation Comments MAGNESIUM (BEAKER) (test code = 1.9 mg/dL 1.6-2.6 627) Arch Cushion Skiving Machine Operator ID - THERESA MOLINAGEN SATURATION, [id number] 06:20:51 Test Item Value Reference Range Interpretation Comments O2 SATURATION (MEASURED) (BEAKER) 79.0 % (test code = 1455) Blood gas, [id number] 06:16:43 Test Item Value Reference Range Interpretation [...] 36 Lab Interpretation Abnormal (test code = 30981-5) [facility] CenterBlood gas, [id number] 06:16:43 Test Item Value Reference Range Interpretation [...] 36 Lab Interpretation Abnormal (test code = 99213-2) [facility] CenterBLOOD GAS, [id number] 06:16:43 Test Item Value Reference Range Interpretation [...] (BEAKER) (test code = 1819) 36.0 CALCIUM, [id number] 06:16:43 Test Item Value Reference Range Interpretation Comments CALCIUM IONIZED (BEAKER) (test 1.11 mmol/L 1.12-1.27 L code = 698) PH, BLOOD (BEAKER) (test code = 7.39 1810) POCT-GLUCOSE [id number] 00:36:03 Test Item Value Reference Range Interpretation Comments POC-GLUCOSE METER 133 mg/dL 70-110 H : [facility] (BEAKER) (test code [facility], = 1538) [address]: Arch Cushion Skiving Machine Operator/Techni juan ID = [id number] for CADI ANG, GLORINEIL Prepare Leuko-Red [id number] 23:54:00 Test Item Value Reference Range Interpretation Comments CROSSMATCH (test code = 2264) COMPATIBLE Unit ABO (test code = O Pos 1835332) UNIT NUMBER (test code = [id number] 934-0) Status (test code = 9453931) [place]_TIMEINCHART Blood Bank Product (test code RED BLOOD CELLS = 2263) PRODUCT CODE (test code = Y0989R91 933-2) [facility] CenterPrep[facility] Leuko-Red [id number] 23:54:00 Test Item Value Reference Range Interpretation Comments CROSSMATCH (test code = 2264) COMPATIBLE Unit ABO (test code = O Pos 3346753) UNIT NUMBER (test code = [id number] 934-0) Status (test code = 4078675) [place]_TIMEINCHART Blood Bank Product (test code RED BLOOD CELLS = 2263) PRODUCT CODE (test code = U0698V58 933-2) [facility] CenterRAD, [facility]ST, 1 VIEW, NON [id number] 21:54:00Reason for exam:->CT with new air leak - rightShould this be performed at the bedside?->[facility] : 1935 Sex: FFINAL [...] Blanco Verified Date/Time: 04/26/2022 21:54:36 HEMOGLOBIN AND [id number] 20:43:14 Test Item Value Reference Range Interpretation Comments HEMOGLOBIN (BEAKER) (test code = 9.4 GM/DL 11.2-15.7 L 410) HEMATOCRIT (BEAKER) (test code = 28.1 % 34.1-44.9 L 411) Arch Cushion Skiving Machine Operator ID - [id number]-GLUCOSE [id number] 17:37:48 Test Item Value Reference Range Interpretation Comments POC-GLUCOSE METER 191 mg/dL 70-110 H : TESTED A T [facility] 6720 (BEAKER) (test code = [place], 1538) [address]: Arch Cushion Skiving Machine Operator/Techni juan ID = [id number] for Telma pina (contract), Ran ei RAD, CHEST, 1 VIEW, NON [id number] 12:57:00Reason for exam:->post washout, eval hemothoraxShould this be performed at the bedside?->Yes [facility] : 1935 Sex: FFINAL REPORT TECHNIQUE: Frontal view of the chest. INDICATION: post washout, eval hemothorax. COMPARISON: 04/26/2022 at 1:47 AM and 04/25/2022 at 5:37 AM. FINDINGS: LINES/TUBES: Right IJ [place] catheter remains unchanged. There is been interval [...] Luis MDReport Verified Date/Time: 04/26/2022 12:57:33 Prepare [id number] 11:43:00 Test Item Value Reference Range Interpretation Comments Unit ABO (test code = O Pos 1372653) UNIT NUMBER (test code = [id number] 934-0) Status (test code = RETURNED FROM ISSUE 6924074) Blood Bank Product (test FFP code = 2263) PRODUCT CODE (test code = D0087A19 933-2) [facility] CenterPrepare [id number] 11:43:00 Test Item Value Reference Range Interpretation Comments Unit ABO (test code = O Pos 8430074) UNIT NUMBER (test code = [id number] 934-0) Status (test code = RETURNED FROM ISSUE 3864248) Blood Bank Product (test FFP code = 2263) PRODUCT CODE (test code = M6044Z24 933-2) [facility] CenterOXYGEN SATURATION, [id number] 11:30:33 Test Item Value Reference Range Interpretation Comments O2 SATURATION (MEASURED) (BEAKER) 74.9 % (test code = 1455) [id number] 11:25:52 Test Item Value Reference Range Interpretation Comments PHOSPHORUS (BEAKER) (test code = 2.8 mg/dL 2.3-4.7 604) Arch Cushion Skiving Machine Operator ID - THERESA MBASIC METABOLIC [id number] 11:25:51 Test Item Value Reference Range Interpretation [...] S NOT APPLICABLE FOR DIALYSIS PATIEN TS. Arch Cushion Skiving Machine Operator ID - THERESA [id number] 11:25:51 Test Item Value Reference Range Interpretation Comments MAGNESIUM (BEAKER) (test code = 2.0 mg/dL 1.6-2.6 627) Arch Cushion Skiving Machine Operator ID - THERESA MLactic Acid, [id number] 11:20:10 Test Item Value Reference Range Interpretation Comments Lactate, Art (test code = 0.7 mmol/L 0.5-2.2 2874) MISHA (test code = MISHA) Arch Cushion Skiving Machine Operator ID - THERESA M Lab Interpretation (test Normal code = 76696-2) [facility], [id number] 11:20:10 Test Item Value Reference Range Interpretation Comments Lactate, Art (test code = 0.7 mmol/L 0.5-2.2 2874) MISHA (test code = MISHA) Arch Cushion Skiving Machine Operator ID - THERESA M Lab Interpretation (test Normal code = 96008-3) [facility]ID, [id number] 11:20:10 Test Item Value Reference Range Interpretation Comments LACTATE BLOOD ARTERIAL (2) 0.7 mmol/L 0.5-2.2 (BEAKER) (test code = 2874) Arch Cushion Skiving Machine Operator ID - THERESA MPT/[id number] 11:18:48 Test Item Value Reference Range Interpretation [...] is 2.5-3.5 for patients with mechanical heart valves.[id number] 11:18:47 Test Item Value Reference Range Interpretation Comments FIBRINOGEN LEVEL (BEAKER) (test 405 mg/dl 225-434 code = 658) BLOOD GAS, [id number] 11:14:34 Test Item Value Reference Range Interpretation [...] (BEAKER) (test code = 1819) 40.0 CALCIUM, [id number] 11:14:28 Test Item Value Reference Range Interpretation [...] WBC 0-0 (test code = 413) CALCIUM, [id number] 09:26:35 Test Item Value Reference Range Interpretation Comments CALCIUM IONIZED (BEAKER) (test 1.10 mmol/L 1.12-1.27 L code = 698) PH, BLOOD (BEAKER) (test code = 7.48 1810) HGB/HCT (H&H)-Stat [id number] 09:26:34 Test Item Value Reference Range Interpretation Comments Hemoglobin (test code = 8.2 See_Comment L [Au tomated message] 786-4) The system [employer] generated this result transmitted ref erence range: 12.0 - 1 5.0 GM/DL. The refe rence range was not u sed to interpret this result as normal/abnor mal. Hematocrit (test code = 24.0 % 36.0-45.0 L 4544-3) Lab Interpretation (test Abnormal code = 58666-8) [facility] [id number] 09:26:34 Test Item Value Reference Range Interpretation Comments Sodium (test code = 2951-2) 133 meq/L 136-145 L Lab Interpretation (test code = Abnormal 87147-3) [facility]GB[facility] (H&H)-Stat [id number] 09:26:34 Test Item Value Reference Range Interpretation Comments Hemoglobin (test code = 8.2 See_Comment L [Au tomated message] 786-4) The system [employer] generated this result transmitted ref erence range: 12.0 - 1 5.0 GM/DL. The refe rence range was not u sed to interpret this result as normal/abnor mal. Hematocrit (test code = 24.0 % 36.0-45.0 L 4544-3) Lab Interpretation (test Abnormal code = 13337-9) [facility]Stat [id number] 09:26:34 Test Item Value Reference Range Interpretation Comments Sodium (test code = 2951-2) 133 meq/L 136-145 L Lab Interpretation (test code = Abnormal 64198-7) [facility]-STAT [id number] 09:26:34 Test Item Value Reference Range Interpretation Comments SODIUM (BEAKER) (test code = 381) 133 meq/L 136-145 L HGB/HCT (H&H) - STAT [id number] 09:26:34 Test Item Value Reference Range Interpretation Comments HEMOGLOBIN (BEAKER) (test code = 8.2 GM/DL 12.0-15.0 L 410) HEMATOCRIT (BEAKER) (test code = 24.0 % 36.0-45.0 L 411) BLOOD GAS, [id number] 09:26:33 Test Item Value Reference Range Interpretation [...] (BEAKER) (test code = 1819) 60.0 Glucose-Stat [id number] 09:26:21 Test Item Value Reference Range Interpretation Comments Glucose (test code = 2345-7) 105 mg/dL 70-110 Lab Interpretation (test code = Normal 74473-6) [facility] CenterPotassium-Stat [id number] 09:26:21 Test Item Value Reference Range Interpretation Comments Potassium (test code = 2823-3) 3.7 meq/L 3.6-5.5 Lab Interpretation (test code = Normal 78863-9) [facility] CenterGlucose-Stat [id number] 09:26:21 Test Item Value Reference Range Interpretation Comments Glucose (test code = 2345-7) 105 mg/dL 70-110 Lab Interpretation (test code = Normal 78025-9) [facility] CenterPotassium-Stat [id number] 09:26:21 Test Item Value Reference Range Interpretation Comments Potassium (test code = 2823-3) 3.7 meq/L 3.6-5.5 Lab Interpretation (test code = Normal 52143-5) [facility] CenterGLUCOSE-STAT [id number] 09:26:21 Test Item Value Reference Range Interpretation Comments GLUCOSE RANDOM (BEAKER) (test code 105 mg/dL 70-110 = 652) POTASSIUM-STAT [id number] 09:26:21 Test Item Value Reference Range Interpretation Comments POTASSIUM (BEAKER) (test code = 3.7 meq/L 3.6-5.5 379) RAD, CHEST, 1 VIEW, NON [id number] 07:33:00while patient is intubated or has chest tubes.Reason for exam:->Status post CV SurgeryShould thisbe performed at the bedside?->Yes [facility] 1935 Sex: FFINAL REPORT RAD, CHEST, 1 VIEW, NON DEPT INDICATION: Status post CV Surgery COMPARISON: Prior day's exam FINDINGS: Portable frontal view of the chest. IMPRESSION: Support Lines: [place] tip overlies the right pulmonary outflow tract. Right chest tube. Lungs and pleura: Loculated right hemothorax is better demonstrated on prior CT. Opacity within the right upper lung persists. Smallpneumothorax component is not well seen on current radiograph. Heart and mediastinum: Stable contours. Stable surgical changes. Additional findings: None. Signed: Kyara Marcus Verified Date/Time: 04/26/2022 07:33:47 -GLUCOSE [id number] 06:00:43 Test Item Value Reference Range Interpretation Comments POC-GLUCOSE METER 113 mg/dL 70-110 H : TESTED A T [facility] 6720 (BEAKER) (test code = ELSI Mason [facility], 1538) [address]: Arch Cushion Skiving Machine Operator/Techni juan ID = [id number] for KEVYN SALGUERO [id number] 03:10:22 Test Item Value Reference Range Interpretation Comments PHOSPHORUS (BEAKER) (test code = 2.9 mg/dL 2.3-4.7 604) Arch Cushion Skiving Machine Operator ID - THERESA MBASIC METABOLIC [id number] 03:10:21 Test Item Value Reference Range Interpretation [...] S NOT APPLICABLE FOR DIALYSIS PATIEN TS. Arch Cushion Skiving Machine Operator ID - THERESA [id number] 03:10:21 Test Item Value Reference Range Interpretation Comments MAGNESIUM (BEAKER) (test code = 1.6 mg/dL 1.6-2.6 627) Arch Cushion Skiving Machine Operator ID - THERESA MCBC (HEMOGRAM ONLY)2022-04-26 [...] 0-0 (BEAKER) (test code = 413) CALCIUM, [id number] 02:18:11 Test Item Value Reference Range Interpretation Comments CALCIUM IONIZED (BEAKER) (test 1.13 mmol/L 1.12-1.27 code = 698) PH, BLOOD (BEAKER) (test code = 7.45 1810) POCT-GLUCOSE [id number] 00:01:48 Test Item Value Reference Range Interpretation Comments POC-GLUCOSE METER 131 mg/dL 70-110 H : TESTED A T [facility] 6720 (BEAKER) (test code = EL[place], 1538) [address]: Arch Cushion Skiving Machine Operator/Techni juan ID = [id number] for SA JUAN MIGUEL KEVYN Prepare [id number] 23:54:00 Test Item Value Reference Range Interpretation Comments Unit ABO (test code = O Pos 1474135) UNIT NUMBER (test code = [id number] 934-0) Status (test code = 0553661) TX_TIMEINCHART Blood Bank Product (test code CRYOPRECIPITATE = 2263) PRODUCT CODE (test code = I2119R14 933-2) [facility] Center[facility] [id number] 23:54:00 Test Item Value Reference Range Interpretation Comments Unit ABO (test code = 7631189) O Pos UNIT NUMBER (test code = [id number] 934-0) Status (test code = 3824697) TX_TIMEINCHART Blood Bank Product (test code PLATELETS = 2263) PRODUCT CODE (test code = L8716E57 933-2) [facility] CenterPrep[facility] [id number] 23:54:00 Test Item Value Reference Range Interpretation Comments Unit ABO (test code = O Pos 9733423) UNIT NUMBER (test code = [id number] 934-0) Status (test code = 4998867) TX_TIMEINCHART Blood Bank Product (test code CRYOPRECIPITATE = 2263) PRODUCT CODE (test code = X3029J20 933-2) [facility] CenterPrep[facility] [id number] 23:54:00 Test Item Value Reference Range Interpretation Comments Unit ABO (test code = 5370900) O Pos UNIT NUMBER (test code = [id number] 934-0) Status (test code = 2283438) TX_TIMEINCHART Blood Bank Product (test code PLATELETS = 2263) PRODUCT CODE (test code = F5585E81 933-2) [facility] CenterBASIC METABOLIC [id number] 19:28:22 Test Item Value Reference Range Interpretation [...] S NOT APPLICABLE FOR DIALYSIS PATIEN TS. Arch Cushion Skiving Machine Operator ID - HGLACTIC ACID, [id number] 18:55:34 Test Item Value Reference Range Interpretation Comments LACTATE BLOOD ARTERIAL (2) 0.9 mmol/L 0.5-2.2 (BEAKER) (test code = 2874) Arch Cushion Skiving Machine Operator ID - HGOXYGEN SATURATION, [id number] 18:44:34 Test Item Value Reference Range Interpretation Comments O2 SATURATION (MEASURED) (BEAKER) 60.5 % (test code = 1455) HEMOGLOBIN AND [id number] 18:42:34 Test Item Value Reference Range Interpretation Comments HEMOGLOBIN (BEAKER) (test code = 8.5 GM/DL 11.2-15.7 L 410) HEMATOCRIT (BEAKER) (test code = 24.5 % 34.1-44.9 L 411) Arch Cushion Skiving Machine Operator ID - 6000POCT-GLUCOSE [id number] 16:41:19 Test Item Value Reference Range Interpretation Comments POC-GLUCOSE METER 147 mg/dL 70-110 H : TESTED A T [facility] 6720 (BEAKER) (test code [facility], = 1538) [address]: Arch Cushion Skiving Machine Operator/Techni juan ID = [id number] for Jim rizo (contract) Aaron rodriguez PT/[id number] 13:29:52 Test Item Value Reference Range Interpretation [...] is 2.5-3.5 for patients with mechanical heart valves.[id number] 13:29:31 Test Item Value Reference Range Interpretation Comments FIBRINOGEN LEVEL (BEAKER) (test 380 mg/dl 225-434 code = 658) POCT-GLUCOSE [id number] 13:25:47 Test Item Value Reference Range Interpretation Comments POC-GLUCOSE METER 124 mg/dL 70-110 H : TESTED A T [facility] 6720 (BEAKER) (test code [facility], = 1538) 95[address]: Arch Cushion Skiving Machine Operator/Techni juan ID = [id number] for Jim rizo (contract) Aaron rodriguez CBC [...] = 413) RAD, CHEST, 1 VIEW, NON [id number] 12:41:00while patient is intubated or has chest tubes.Reason for exam:->Status post CV SurgeryShould thisbe performed at the bedside?->Yes [facility] : 1935 Sex: FFINAL REPORT RAD, CHEST, 1 VIEW, NON DEPT INDICATION: Status post CV Surgery COMPARISON: Prior day's exam FINDINGS: Portable frontal view of the chest. IMPRESSION: Support Lines: [place] tip overlies the right main pulmonary artery. Right chest tube. Lungs and pleura: Dense consolidation within the right upper lung is unchanged. No significant pneumothorax. Heart and mediastinum: Stable contours. Stable surgical changes. Additional findings: None. Signed: Kyara Marcus MDReport Verified Date/Time: 04/25/2022 12:41:59 Reading Location: [facility] Radiology Reading Room [id number] 12:02:08 Test Item Value Reference Range Interpretation Comments Scan Result (test code = See scanned report [id number]) MISHA (test code = MISHA) See scanned report [facility] CenterRotem2022-07-[facility] 12:02:08 Test Item Value Reference Range Interpretation Comments Scan Result (test code = See scanned report [id number]) MISHA (test code = MISHA) See scanned report [facility] CenterMISCELLANEOUS LAB [id number] 12:02:08 Test Item Value Reference Range Interpretation Comments SCAN RESULT (test code = See scanned report [id number]) See scanned reportCT, CHEST, WITHOUT [id number] 11:18:00Unlisted Reason for Exam - Click Yes and Enter Reason Below->YesUnlisted Reason for Exam- >s/p CT surgery, concern for hemothorax [facility] : 1935 Sex: FFINAL [...] nodes without IV contrast. Otherwise unremarkableCardiovascular: Small pneumopericardium.[place] catheter tip in the right interlobar [...] 3.3 cm in diameter Signed: Elise Chau MDRepfreeman heart institute Verified Date/Time: 04/25/2022 11:18:20 RAD, CHEST, 1 VIEW, NON [id number] 10:12:00Reason for exam:->RUL lung collapse [facility] : 1935 Sex: FFINAL REPORT RAD, CHEST, 1 VIEW, NON DEPT INDICATION: RUL lung collapse COMPARISON: Prior day's exam FINDINGS: Portable frontal view of the chest. IMPRESSION: Support Lines: [place] tip overlies the right pulmonary outflow tract. Right chest tube. Lungs and pleura: Right upper lung opacity is unchanged. No significant pneumothorax. Heart and mediastinum: Stable contours. Stable surgical changes. Additional findings: None. Signed: Kyara Marcusepzaira Verified Date/Time: 04/25/2022 10:12:13 Reading Location: [facility] Radiology Reading Room CBC (HEMOGRAM ONLY)2022-04-25 [...] CELLS (BEAKER) (test code = 413) POCT-GLUCOSE [id number] 08:19:29 Test Item Value Reference Range Interpretation Comments POC-GLUCOSE METER 120 mg/dL 70-110 H : [facility] (BEAKER) (test code [facility], = 1538) [address]: Arch Cushion Skiving Machine Operator/Techni juan ID = [id number] for Jim darrius (contract)Aaron Hematocrit-Stat [id number] 06:54:10 Test Item Value Reference Range Interpretation Comments Hematocrit (test code = 4544-3) 7.0 % 36.0-45.0 L Lab Interpretation (test code = Abnormal 26714-6) [facility] CenterHematocrit-Stat [id number] 06:54:10 Test Item Value Reference Range Interpretation Comments Hematocrit (test code = 4544-3) 7.0 % 36.0-45.0 L Lab Interpretation (test code = Abnormal 17307-5) [facility] CenterHEMATOCRIT-STAT [id number] 06:54:10 Test Item Value Reference Range Interpretation Comments HEMATOCRIT (BEAKER) (test code = 411) 7.0 % 36.0-45.0 L LACTIC ACID, [id number] 06:20:41 Test Item Value Reference Range Interpretation Comments LACTATE BLOOD VENOUS (2) (BEAKER) 0.68 mmol/L 0.50-2.20 (test code = 2872) Arch Cushion Skiving Machine Operator ID - THERESA MOperator ID - THERESA MPOCT-GLUCOSE [id number] 06:10:42 Test Item Value Reference Range Interpretation Comments POC-GLUCOSE METER 122 mg/dL 70-110 H : [facility] (BEAKER) (test code = ELSI R [facility], 1538) [address]: Arch Cushion Skiving Machine Operator/Techni juan ID = [id number] for Bubba marcus (contract)Janet POC ACTIVATED CLOTTING [id number] 05:51:42 Test Item Value Reference Range Interpretation Comments Activated Clotting Time 126 sec : 74 -137 seconds, (test code = 3184-9) Baselin e: TESTED AT [facility] 6720 [facility], 770 30: Arch Cushion Skiving Machine Operator/Techni juan ID = [id number] for Arnol Fountain [facility] ACTIVATED CLOTTING [id number] 05:51:42 Test Item Value Reference Range Interpretation Comments Activated Clotting Time 126 sec : 74 -137 seconds, (test code = 3184-9) Eleazarin e: TESTED AT [address], [facility] 30: Arch Cushion Skiving Machine Operator/Techni juan ID = [id number] for Le , Arnol [facility] CenterPO[facility]-[id number] 05:51:42 Test Item Value Reference Range Interpretation Comments ACTIVATED CLOTTING TIME 126 sec : 74 -137 seconds, (BEAKER) (test code = Baseli ne: TESTED AT 441) [address], [address]70 30: Arch Cushion Skiving Machine Operator/Techni juan ID = [id number] for Le , Arnol [id number] 05:51:42 Test Item Value Reference Range Interpretation Comments ACTIVATED CLOTTING TIME 590 sec : 74 -137 seconds, (BEAKER) (test code = Baseli ne: TESTED AT 441) [address], [facility] 30: Arch Cushion Skiving Machine Operator/Techni juan ID = [id number] for Le , Arnol [id number] 05:51:41 Test Item Value Reference Range Interpretation Comments ACTIVATED CLOTTING TIME 654 sec : 74 -137 seconds, (BEAKER) (test code = Baseli ne: TESTED AT 441) [address], [facility] 30: Arch Cushion Skiving Machine Operator/Techni juan ID = [id number] for Le , Arnol FVAG-[id number] 05:51:41 Test Item Value Reference Range Interpretation Comments ACTIVATED CLOTTING TIME 590 sec : 74 -137 seconds, (BEAKER) (test code = Baseli ne: TESTED AT 441) [address], [facility] 30: Arch Cushion Skiving Machine Operator/Techni juan ID = [id number] for Le , Arnol [id number] 05:51:06 Test Item Value Reference Range Interpretation Comments ACTIVATED CLOTTING TIME 115 sec : 74 -137 seconds, (BEAKER) (test code = Baseli ne: TESTED AT 441) [address], [facility] 30: Arch Cushion Skiving Machine Operator/Techni juan ID = [id number] for Le , Arnol [id number]-[id number] 05:51:06 Test Item Value Reference Range Interpretation Comments ACTIVATED CLOTTING TIME 839 sec : 74 -137 seconds, (BEAKER) (test code = Baseli ne: TESTED AT 441) [facility] 6720 [facility], 770 30: Arch Cushion Skiving Machine Operator/Techni juan ID = [id number] for Arnol Fountain [id number] 05:51:05 Test Item Value Reference Range Interpretation Comments ACTIVATED CLOTTING TIME 654 sec : 74 -137 seconds, (BEAKER) (test code = [employer] ne: TESTED AT 441) [facility] 67[address] [facility], 770 30: Arch Cushion Skiving Machine Operator/Techni juan ID = [id number] for Arnol Fountain [id number] 04:43:22 Test Item Value Reference Range Interpretation Comments PARTIAL THROMBOPLASTIN TIME 33.3 seconds 22.5-36.0 (BEAKER) (test code = 760) [id number] 04:43:20 Test Item Value Reference Range Interpretation Comments FIBRINOGEN LEVEL (BEAKER) (test 304 mg/dl 225-434 code = 658) BLOOD GAS, [id number] 04:42:49 Test Item Value Reference Range Interpretation [...] (BEAKER) (test code = 1819) 40.0 PROTHROMBIN TIME/[id number] 04:42:42 Test Item Value Reference Range Interpretation Comments PROTIME (BEAKER) 17.0 seconds 11.9-14.2 H (test code = 759) INR (BEAKER) (test 1.41 See_Comment [Automat ed message] code = 370) The system [employer] generated this result transmitted ref erence range: <=5.90. The reference range was not used to int erpret this result as normal/abnormal . RECOMMENDED COUMADIN/WARFARIN INR THERAPY RANGESSTANDARD DOSE: 2.0 - 3.0 Includes: PROPHYLAXIS for venous thrombosis, systemic embolization; TREATMENT for venous thrombosis and/or pulmonary embolus.HIGH RISK: Target INR is 2.5-3.5 for patients with mechanical heart valves.HEPATIC FUNCTION [id number] 04:23:33 Test Item Value Reference Range Interpretation [...] (test code = 13 U/L 6-55 347) Arch Cushion Skiving Machine Operator ID - THERESA MCALCIUM, [id number] 04:18:14 Test Item Value Reference Range Interpretation Comments CALCIUM IONIZED (BEAKER) (test 1.21 mmol/L 1.12-1.27 code = 698) PH, BLOOD (BEAKER) (test code = 7.34 1810) [id number] 03:50:20 Test Item Value Reference Range Interpretation Comments PHOSPHORUS (BEAKER) (test code = 4.0 mg/dL 2.3-4.7 604) Arch Cushion Skiving Machine Operator ID - THERESA MBASIC METABOLIC [id number] 03:50:19 Test Item Value Reference Range Interpretation [...] S NOT APPLICABLE FOR DIALYSIS PATIEN TS. Arch Cushion Skiving Machine Operator ID - THERESA [id number] 03:50:19 Test Item Value Reference Range Interpretation Comments MAGNESIUM (BEAKER) (test code = 1.9 mg/dL 1.6-2.6 627) Arch Cushion Skiving Machine Operator ID - THERESA MCBC (HEMOGRAM ONLY)2022-04-25 [...] WBC 0-0 (test code = 413) POCT-GLUCOSE [id number] 02:22:03 Test Item Value Reference Range Interpretation Comments POC-GLUCOSE METER 110 mg/dL 70-110 : TESTED A T [facility] 6720 (BEAKER) (test code = ELSI Mason [place], 1538) [address]: Arch Cushion Skiving Machine Operator/Techni juan ID = [id number] for Bubba marcus (contract)Janet POCT-GLUCOSE [id number] 00:03:44 Test Item Value Reference Range Interpretation Comments POC-GLUCOSE METER 139 mg/dL 70-110 H : TESTED A T [facility] 6720 (BEAKER) (test code = ELSI Mason [place], 1538) [address]: Arch Cushion Skiving Machine Operator/Techni juan ID = [id number] for KEVYN SALGUERO GLUCOSE-STAT [id number] 21:29:34 Test Item Value Reference Range Interpretation Comments GLUCOSE RANDOM (BEAKER) (test code 155 mg/dL 70-110 H = 652) HGB/HCT (H&H) - STAT [id number] 21:29:34 Test Item Value Reference Range Interpretation Comments HEMOGLOBIN (BEAKER) (test code = 8.9 GM/DL 12.0-15.0 L 410) HEMATOCRIT (BEAKER) (test code = 26.0 % 36.0-45.0 L 411) BLOOD GAS, [id number] 21:29:33 Test Item Value Reference Range Interpretation [...] 37.0 (test code = 1818) SODIUM NA-STAT [id number] 21:28:36 Test Item Value Reference Range Interpretation Comments SODIUM (BEAKER) (test code = 381) 139 meq/L 136-145 POTASSIUM-STAT [id number] 21:28:36 Test Item Value Reference Range Interpretation Comments POTASSIUM (BEAKER) (test code = 3.9 meq/L 3.6-5.5 379) [id number] 20:35:33 Test Item Value Reference Range Interpretation Comments MAGNESIUM (BEAKER) 2.1 mg/dL 1.6-2.6 Specimen slightly (test code = 627) hemolyzed Arch Cushion Skiving Machine Operator ID - DBBASIC METABOLIC [id number] 20:35:32 Test Item Value Reference Range Interpretation [...] S NOT APPLICABLE FOR DIALYSIS PATIEN TS. Arch Cushion Skiving Machine Operator ID - DBSpecimen slightly ictericLACTIC ACID, [id number] 20:31:26 Test Item Value Reference Range Interpretation Comments LACTATE BLOOD ARTERIAL (2) 1.2 mmol/L 0.5-2.2 (BEAKER) (test code = 2874) Arch Cushion Skiving Machine Operator ID - DBSpecimen slightly ictericGLUCOSE-STAT [id number] 20:09:05 Test Item Value Reference Range Interpretation Comments GLUCOSE RANDOM (BEAKER) (test code 147 mg/dL 70-110 H = 652) HGB/HCT (H&H) - STAT [id number] 20:09:05 Test Item Value Reference Range Interpretation Comments HEMOGLOBIN (BEAKER) (test code = 9.5 GM/DL 12.0-15.0 L 410) HEMATOCRIT (BEAKER) (test code = 28.0 % 36.0-45.0 L 411) BLOOD GAS, [id number] 20:09:04 Test Item Value Reference Range Interpretation [...] (BEAKER) 37.0 (test code = 1818) CALCIUM, [id number] 20:08:43 Test Item Value Reference Range Interpretation Comments CALCIUM IONIZED (BEAKER) (test 1.26 mmol/L 1.12-1.27 code = 698) PH, BLOOD (BEAKER) (test code = 7.43 1810) POTASSIUM-STAT [id number] 20:08:22 Test Item Value Reference Range Interpretation Comments POTASSIUM (BEAKER) (test code = 4.0 meq/L 3.6-5.5 379) SODIUM NA-STAT [id number] 20:08:21 Test Item Value Reference Range Interpretation [...] CONCENTRATION Decreased (CELLAVISION)(BEAKER) (test code = 3438) Arch Cushion Skiving Machine Operator ID - Agriculture Teacher (created by the system)User comments: Slide comments:CBC W/PLT COUNT & AUTO [id number] 18:18:06 Test Item Value Reference Range Interpretation [...] code = 2801) HGB/HCT (H&H) - STAT [id number] 18:15:30 Test Item Value Reference Range Interpretation Comments HEMOGLOBIN (BEAKER) (test code = 9.5 GM/DL 12.0-15.0 L 410) HEMATOCRIT (BEAKER) (test code = 28.0 % 36.0-45.0 L 411) BLOOD GAS, [id number] 18:15:29 Test Item Value Reference Range Interpretation [...] (BEAKER) (test code = 1819) 40.0 GLUCOSE-STAT [id number] 18:15:29 Test Item Value Reference Range Interpretation Comments GLUCOSE RANDOM (BEAKER) (test code 167 mg/dL 70-110 H = 652) SODIUM NA-STAT [id number] 18:15:23 Test Item Value Reference Range Interpretation Comments SODIUM (BEAKER) (test code = 381) 138 meq/L 136-145 POTASSIUM-STAT [id number] 18:15:23 Test Item Value Reference Range Interpretation Comments POTASSIUM (BEAKER) (test code = 3.6 meq/L 3.6-5.5 379) RAD, CHEST, 1 VIEW, NON [id number] 16:48:00Reason for exam:->s/p valve surgeryShould this be performed at the bedside?->Yes [facility] 1935 Sex: FFINAL [...] terminating below the left hemidiaphragm. Right IJ [place] catheter terminates in the distal right pulmonary artery. Right-sided chest tube is present. Minimal subcutaneous air is present within th e right lower lateral chest wall. IMPRESSION: Postoperative changes with supporting lines and tubes in adequate position. Scattered right lung atelectasis is present. Signed: Tra Akbar MDReport Verified Date/Time: 04/24/2022 16:48:45 Reading Location: [facility] Radiology Reading Room BASI METABOLIC PANEL 2022-04-24 [...] S NOT APPLICABLE FOR DIALYSIS PATIEN TS. Arch Cushion Skiving Machine Operator ID - PIPAVAN [id number] 16:20:36 Test Item Value Reference Range Interpretation Comments MAGNESIUM (BEAKER) 1.6 mg/dL 1.6-2.6 Specimen slightly (test code = 627) hemolyzed Arch Cushion Skiving Machine Operator ID - JONI [id number] 16:20:36 Test Item Value Reference Range Interpretation Comments PHOSPHORUS (BEAKER) 3.5 mg/dL 2.3-4.7 Specimen slightly (test code = 604) hemolyzed Arch Cushion Skiving Machine Operator ID - JONI LLACTIC ACID, [id number] 16:12:11 Test Item Value Reference Range Interpretation Comments LACTATE BLOOD 1.3 mmol/L 0.5-2.2 Specimen sligh tly ARTERIAL (2) (BEAKER) hemoly zed (test code = 2874) Arch Cushion Skiving Machine Operator ID - JONI [id number] 16:08:12 Test Item Value Reference Range Interpretation Comments PARTIAL THROMBOPLASTIN TIME 33.9 seconds 22.5-36.0 (BEAKER) (test code = 760) [id number] 16:07:51 Test Item Value Reference Range Interpretation Comments FIBRINOGEN LEVEL (BEAKER) (test 426 mg/dl 225-434 code = 658) PROTHROMBIN [id number] 16:07:30 Test Item Value Reference Range Interpretation Comments PROTIME (BEAKER) 17.1 seconds 11.9-14.2 H (test code = 759) INR (BEAKER) (test 1.42 See_Comment [Automat ed message] code = 370) The system [employer] generated this result transmitted ref erence range: <=5.90. The reference range was not used to int erpret this result as normal/abnormal . RECOMMENDED COUMADIN/WARFARIN INR THERAPY RANGESSTANDARD DOSE: 2.0 - 3.0 Includes: PROPHYLAXIS for venous thrombosis, systemic embolization; TREATMENT for venous thrombosis and/or pulmonary embolus.HIGH RISK: Target INR is 2.5-3.5 for patients with mechanical heart valves.CALCIUM, [id number] 16:00:22 Test Item Value Reference Range Interpretation Comments CALCIUM IONIZED (BEAKER) (test 1.29 mmol/L 1.12-1.27 H code = 698) PH, BLOOD (BEAKER) (test code = 7.46 1810) BLOOD GAS, [id number] 16:00:22 Test Item Value Reference Range Interpretation [...] (test code = 1819) 60.0 OXYGEN SATURATION, [id number] 15:59:48 Test Item Value Reference Range Interpretation [...] WBC 0-0 (BEAKER) (test code = 413) [id number] 14:24:28 Test Item Value Reference Range Interpretation Comments PARTIAL THROMBOPLASTIN TIME 37.1 seconds 22.5-36.0 H (BEAKER) (test code = 760) [id number] 14:24:07 Test Item Value Reference Range Interpretation Comments FIBRINOGEN LEVEL (BEAKER) (test 290 mg/dl 225-434 code = 658) PROTHROMBIN TIME/[id number] 14:23:45 Test Item Value Reference Range Interpretation Comments PROTIME (BEAKER) 19.2 seconds 11.9-14.2 H (test code = 759) INR (BEAKER) (test 1.64 See_Comment [Automat ed message] code = 370) The system [employer] generated this result transmitted ref erence range: <=5.90. The reference range was not used to int erpret this result as normal/abnormal . RECOMMENDED COUMADIN/WARFARIN INR THERAPY RANGESSTANDARD DOSE: 2.0 - 3.0 Includes: PROPHYLAXIS for venous thrombosis, systemic embolization; TREATMENT for venous thrombosis and/or pulmonary embolus.HIGH RISK: Target INR is 2.5-3.5 for patients with mechanical heart valves.Platelet [id number] 14:19:25 Test Item Value Reference Range Interpretation Comments Platelets (test code 139 See_Comment L [Autom ated = 777-3) message] The system which generated this result transmit minda reference range : 150 - 450 K/CU MM. The reference range was not u sed to interpret th is result as normal/abnormal . MISHA (test code = MISHA) Arch Cushion Skiving Machine Operator ID - [id number] Lab Interpretation Abnormal (test code = 21261-7) [id number] 14:19:25 Test Item Value Reference Range Interpretation Comments Platelets (test code 139 See_Comment L [Autom ated = 777-3) message] The system which generated this result transmit minda reference range : 150 - 450 K/CU MM. The reference range was not u sed to interpret th is result as normal/abnormal . MISHA (test code = MISHA) Arch Cushion Skiving Machine Operator ID - [id number] Lab Interpretation Abnormal (test code = 45557-4) [facility] [id number] 14:19:25 Test Item Value Reference Range Interpretation Comments PLATELET COUNT (BEAKER) (test 139 K/CU MM 150-450 L code = 756) Arch Cushion Skiving Machine Operator ID - [id number], [id number] 14:11:38 Test Item Value Reference Range Interpretation Comments CALCIUM IONIZED (BEAKER) (test 1.01 mmol/L 1.12-1.27 L code = 698) PH, BLOOD (BEAKER) (test code = 7.45 1810) POTASSIUM-STAT [id number] 14:11:06 Test Item Value Reference Range Interpretation Comments POTASSIUM (BEAKER) (test code = 3.1 meq/L 3.6-5.5 L 379) GLUCOSE-STAT [id number] 14:11:06 Test Item Value Reference Range Interpretation Comments GLUCOSE RANDOM (BEAKER) (test code 150 mg/dL 70-110 H = 652) HGB/HCT (H&H) - STAT [id number] 14:11:06 Test Item Value Reference Range Interpretation Comments HEMOGLOBIN (BEAKER) (test code = 10.8 GM/DL 12.0-15.0 L 410) HEMATOCRIT (BEAKER) (test code = 32.0 % 36.0-45.0 L 411) BLOOD GAS, [id number] 14:11:05 Test Item Value Reference Range Interpretation [...] (test code = 1819) 97.0 SODIUM NA-STAT [id number] 14:10:43 Test Item Value Reference Range Interpretation Comments SODIUM (BEAKER) (test code = 381) 136 meq/L 136-145 [id number] 13:59:03 Test Item Value Reference Range Interpretation Comments FIBRINOGEN LEVEL (BEAKER) (test 211 mg/dl 225-434 L code = 658) PROTHROMBIN TIME/[id number] 13:58:41 Test Item Value Reference Range Interpretation Comments PROTIME (BEAKER) 22.7 seconds 11.9-14.2 H (test code = 759) INR (BEAKER) (test 2.03 See_Comment [Automat ed message] code = 370) The system [employer] generated this result transmitted ref erence range: <=5.90. The reference range was not used to int erpret this result as normal/abnormal . RECOMMENDED COUMADIN/WARFARIN INR THERAPY RANGESSTANDARD DOSE: 2.0 - 3.0 Includes: PROPHYLAXIS for venous thrombosis, systemic embolization; TREATMENT for venous thrombosis and/or pulmonary embolus.HIGH RISK: Target INR is 2.5-3.5 for patients with mechanical heart valves.[id number] 13:34:36 Test Item Value Reference Range Interpretation Comments PARTIAL THROMBOPLASTIN TIME 38.6 seconds 22.5-36.0 H (BEAKER) (test code = 760) [id number] 13:34:35 Test Item Value Reference Range Interpretation Comments FIBRINOGEN LEVEL (BEAKER) (test 185 mg/dl 225-434 L code = 658) PROTHROMBIN TIME/[id number] 13:33:54 Test Item Value Reference Range Interpretation Comments PROTIME (BEAKER) 26.1 seconds 11.9-14.2 H (test code = 759) INR (BEAKER) (test 2.42 See_Comment [Automat ed message] code = 370) The system [employer] generated this result transmitted ref erence range: <=5.90. The reference range was not used to int erpret this result as normal/abnormal . RECOMMENDED COUMADIN/WARFARIN INR THERAPY RANGESSTANDARD DOSE: 2.0 - 3.0 Includes: PROPHYLAXIS for venous thrombosis, systemic embolization; TREATMENT for venous thrombosis and/or pulmonary embolus.HIGH RISK: Target INR is 2.5-3.5 for patients with mechanical heart valves.CALCIUM, [id number] 13:23:39 Test Item Value Reference Range Interpretation Comments CALCIUM IONIZED (BEAKER) (test 1.11 mmol/L 1.12-1.27 L code = 698) PH, BLOOD (BEAKER) (test code = 7.55 9400) HGB/HCT (H&H) - STAT [id number] 13:23:38 Test Item Value Reference Range Interpretation Comments HEMOGLOBIN (BEAKER) (test code = 8.6 GM/DL 12.0-15.0 L 410) HEMATOCRIT (BEAKER) (test code = 25.0 % 36.0-45.0 L 411) POTASSIUM-STAT [id number] 13:23:37 Test Item Value Reference Range Interpretation Comments POTASSIUM (BEAKER) (test code = 3.4 meq/L 3.6-5.5 L 379) GLUCOSE-STAT [id number] 13:23:37 Test Item Value Reference Range Interpretation Comments GLUCOSE RANDOM (BEAKER) (test code 159 mg/dL 70-110 H = 652) BLOOD GAS, [id number] 13:23:36 Test Item Value Reference Range Interpretation [...] (test code = 1819) 97.0 SODIUM NA-STAT [id number] 13:23:14 Test Item Value Reference Range Interpretation Comments SODIUM (BEAKER) (test code = 381) 137 meq/L 136-145 HGB/HCT (H&H) - STAT [id number] 12:07:22 Test Item Value Reference Range Interpretation Comments HEMOGLOBIN (BEAKER) (test code = 8.5 GM/DL 12.0-15.0 L 410) HEMATOCRIT (BEAKER) (test code = 25.0 % 36.0-45.0 L 411) BLOOD GAS, [id number] 12:07:21 Test Item Value Reference Range Interpretation [...] (BEAKER) (test code = 1819) 75.0 GLUCOSE-STAT [id number] 12:07:21 Test Item Value Reference Range Interpretation Comments GLUCOSE RANDOM (BEAKER) (test code 184 mg/dL 70-110 H = 652) POTASSIUM-STAT [id number] 12:06:48 Test Item Value Reference Range Interpretation Comments POTASSIUM (BEAKER) (test code = 3.7 meq/L 3.6-5.5 379) SODIUM NA-STAT [id number] 12:06:47 Test Item Value Reference Range Interpretation Comments SODIUM (BEAKER) (test code = 381) 135 meq/L 136-145 L PLATELET [id number] 11:55:07 Test Item Value Reference Range Interpretation Comments PLATELET COUNT 84 K/CU MM 150-450 L No clot, Pt i s in CV (BEAKER) (test code = OR. 756) Arch Cushion Skiving Machine Operator ID - [id number]-STAT [id number] 11:38:00 Test Item Value Reference Range Interpretation Comments GLUCOSE RANDOM (BEAKER) (test code 215 mg/dL 70-110 H = 652) HGB/HCT (H&H) - STAT [id number] 11:38:00 Test Item Value Reference Range Interpretation Comments HEMOGLOBIN (BEAKER) (test code = 8.5 GM/DL 12.0-15.0 L 410) HEMATOCRIT (BEAKER) (test code = 25.0 % 36.0-45.0 L 411) BLOOD GAS, [id number] 11:37:59 Test Item Value Reference Range Interpretation [...] (test code = 1819) 75.0 SODIUM NA-STAT [id number] 11:37:59 Test Item Value Reference Range Interpretation Comments SODIUM (BEAKER) (test code = 381) 133 meq/L 136-145 L POTASSIUM-STAT [id number] 11:37:43 Test Item Value Reference Range Interpretation Comments POTASSIUM (BEAKER) (test code = 4.4 meq/L 3.6-5.5 379) SODIUM NA-STAT [id number] 11:09:16 Test Item Value Reference Range Interpretation Comments SODIUM (BEAKER) (test code = 381) 134 meq/L 136-145 L GLUCOSE-STAT [id number] 11:09:16 Test Item Value Reference Range Interpretation Comments GLUCOSE RANDOM (BEAKER) (test code 226 mg/dL 70-110 H = 652) HGB/HCT (H&H) - STAT [id number] 11:09:16 Test Item Value Reference Range Interpretation Comments HEMOGLOBIN (BEAKER) (test code = 9.7 GM/DL 12.0-15.0 L 410) HEMATOCRIT (BEAKER) (test code = 29.0 % 36.0-45.0 L 411) BLOOD GAS, [id number] 11:09:15 Test Item Value Reference Range Interpretation [...] (BEAKER) (test code = 1819) 65.0 POTASSIUM-STAT [id number] 11:08:50 Test Item Value Reference Range Interpretation Comments POTASSIUM (BEAKER) (test code = 4.6 meq/L 3.6-5.5 379) HGB/HCT (H&H) - STAT [id number] 10:59:00 Test Item Value Reference Range Interpretation Comments HEMOGLOBIN (BEAKER) (test code = 7.6 GM/DL 12.0-15.0 L 410) HEMATOCRIT (BEAKER) (test code = 22.0 % 36.0-45.0 L 411) BLOOD GAS, [id number] 10:58:59 Test Item Value Reference Range Interpretation [...] (BEAKER) (test code = 1819) 65.0 GLUCOSE-STAT [id number] 10:58:59 Test Item Value Reference Range Interpretation Comments GLUCOSE RANDOM (BEAKER) (test code 206 mg/dL 70-110 H = 652) POTASSIUM-STAT [id number] 10:55:29 Test Item Value Reference Range Interpretation Comments POTASSIUM (BEAKER) (test code = 4.1 meq/L 3.6-5.5 379) SODIUM NA-STAT [id number] 10:55:28 Test Item Value Reference Range Interpretation Comments SODIUM (BEAKER) (test code = 381) 137 meq/L 136-145 BLOOD GAS, [id number] 10:27:14 Test Item Value Reference Range Interpretation [...] (BEAKER) (test code = 1819) 70.0 GLUCOSE-STAT [id number] 10:27:14 Test Item Value Reference Range Interpretation Comments GLUCOSE RANDOM (BEAKER) (test code 189 mg/dL 70-110 H = 652) HGB/HCT (H&H) - STAT [id number] 10:27:14 Test Item Value Reference Range Interpretation Comments HEMOGLOBIN (BEAKER) (test code = 7.9 GM/DL 12.0-15.0 L 410) HEMATOCRIT (BEAKER) (test code = 23.0 % 36.0-45.0 L 411) SODIUM NA-STAT [id number] 10:26:53 Test Item Value Reference Range Interpretation Comments SODIUM (BEAKER) (test code = 381) 135 meq/L 136-145 L POTASSIUM-STAT [id number] 10:26:53 Test Item Value Reference Range Interpretation Comments POTASSIUM (BEAKER) (test code = 3.5 meq/L 3.6-5.5 L 379) HGB/HCT (H&H) - STAT [id number] 08:10:46 Test Item Value Reference Range Interpretation Comments HEMOGLOBIN (BEAKER) (test code = 11.1 GM/DL 12.0-15.0 L 410) HEMATOCRIT (BEAKER) (test code = 33.0 % 36.0-45.0 L 411) POTASSIUM-STAT [id number] 08:10:41 Test Item Value Reference Range Interpretation Comments POTASSIUM (BEAKER) (test code = 3.4 meq/L 3.6-5.5 L 379) BLOOD GAS, [id number] 08:10:40 Test Item Value Reference Range Interpretation [...] (test code = 1819) 95.0 SODIUM NA-STAT [id number] 08:10:40 Test Item Value Reference Range Interpretation Comments SODIUM (BEAKER) (test code = 381) 134 meq/L 136-145 L CALCIUM, [id number] 08:10:34 Test Item Value Reference Range Interpretation Comments CALCIUM IONIZED (BEAKER) (test 1.13 mmol/L 1.12-1.27 code = 698) PH, BLOOD (BEAKER) (test code = 7.47 1810) GLUCOSE-STAT [id number] 08:10:34 Test Item Value Reference Range Interpretation Comments GLUCOSE RANDOM (BEAKER) (test code 104 mg/dL 70-110 = 652) SARS-CoV2/RT-PCR (Asymptomatic ONLY)2022-04-24 04:46:57 Test Item Value Reference Range Interpretation Comments SARS-COV2/RT-PCR Negative Not Detected, (test code = Negative, See 60303-1) external report for linked test SARS-COV-2 [facility] PERFORMING LAB (test code = 00547-9) MISHA (test code = Negative result for [...] of the Act. Fact Sheet for Healthcare Providers:https://www.[employer]/sites/default/f stanley/product/documents/F act_Sheet_HC_Providers_L vna_SEVJ-HbW-5.pdf Fact Sheet for Healthcare Patients:https://www.Gaosouyi/sites/default/fi les/product/documents/Fa ct_Sheet_Patients_Lyra_S ARS-CoV-2.pdf Performing Laboratory:[facility] [place] [address] [facility] (Asymptomatic ONLY)2022-04-24 04:46:57 Test Item Value Reference Range Interpretation Comments SARS-COV2/RT-PCR Negative Not Detected, (test code = Negative, See 53151-3) external report for linked test SARS-COV-2 [facility] PERFORMING LAB (test code = 93334-2) MISHA (test code = Negative result for [...] of the Act. Fact Sheet for Healthcare Providers:https://www.velingol.Domosite/sites/default/f stanley/product/documents/F act_Sheet_HC_Providers_L tsa_WAAZ-RoK-2.pdf Fact Sheet for Healthcare Patients:https://www.[employer].Domosite/sites/default/fi les/product/documents/Fa ct_Sheet_Patients_Lyra_S ARS-CoV-2.pdf Performing Laboratory:[facility] [place] [address] [facility] ([facility])2022-04-24 04:46:57 Test Item Value Reference Range Interpretation Comments SARS-COV2/RT-PCR (test Negative Not Detected, Negative, code = 6066867) See external report for linked test SARS-COV-2 PERFORMING LAB [facility] (test code = 0736381) Negative result for this test determines that [...] of the Act.Fact Sheet for Healthcare Prov iders:https://www.[employer].Domosite/sites/default/files/product/documents/Fact_Sheet_HC _Xcmenlmha_Okww_COTZ-QcV-2.pdfFact Sheet for Healthcare Patients:https://www.[employer].Domosite/sites/default/files/product/docume nts/Zmdu_Owmeo_Gimdowqs_Tppq_DXTX-YjQ-2.pdfPerforming Laboratory:[facility], [place] [id number] 18:53:19 Test Item Value Reference Range Interpretation Comments PARTIAL THROMBOPLASTIN TIME 35.9 seconds 22.5-36.0 (BEAKER) (test code = 760) PROTHROMBIN TIME/[id number] 18:52:17 Test Item Value Reference Range Interpretation Comments PROTIME (BEAKER) 14.7 seconds 11.9-14.2 H (test code = 759) INR (BEAKER) (test 1.17 See_Comment [Automat ed message] code = 370) The system [employer] generated this result transmitted ref erence range: <=5.90. The reference range was not used to int erpret this result as normal/abnormal . RECOMMENDED COUMADIN/WARFARIN INR THERAPY RANGESSTANDARD DOSE: 2.0 - 3.0 Includes: PROPHYLAXIS for venous thrombosis, systemic embolization; TREATMENT for venous thrombosis and/or pulmonary embolus.HIGH RISK: Target INR is 2.5-3.5 for patients with mechanical heart valves.CBC W/PLT COUNT & AUTO [id number] 18:44:32 Test Item Value Reference Range Interpretation [...] ([facility])2022-04-22 21:00:47 Test Item Value Reference Range Interpretation Comments SARS-COV2/RT-PCR (test code = Negative Negative 6401714) Negative result for this test determines that [...] 564(g) of the Act.Testing was performed using [employer] SARS-CoV-2 assay.Fact Sheet for Healthcare Providers:https://www.LikeMe.Net.Cinetraffic/adelfo/RT SARS-CoV-2 HCP Fact Sheet 51- 693545.pdfFact Sheet for Healthcare Patients:https://www.LikeMe.Net.Cinetraffic/adelfo/RT SARS-CoV-2 Patient Fact Sheet EN 51-878716D7.pdfB-TYPE NATRIURETIC FACTOR (BNP) 2022-04-22 12:07:58 Test Item Value Reference Range Interpretation Comments B-TYPE NATRIURETIC PEPTIDE (BEAKER) 600 pg/mL 0-100 H (test code = 700) Arch Cushion Skiving Machine Operator ID - PIAYA LCOMPREHENSIVE METABOLIC [id number] 12:03:13 Test Item Value Reference Range Interpretation [...] S NOT APPLICABLE FOR DIALYSIS PATIEN TS. Arch Cushion Skiving Machine Operator ID - PIAYA LPROTHROMBIN TIME/[id number] 11:43:06 Test Item Value Reference Range Interpretation Comments PROTIME (BEAKER) 15.1 seconds 11.9-14.2 H (test code = 759) INR (BEAKER) (test 1.21 See_Comment [Automat ed message] code = 370) The system [employer] generated this result transmitted ref erence range: <=5.90. The reference range was not used to int erpret this result as normal/abnormal . RECOMMENDED COUMADIN/WARFARIN INR THERAPY RANGESSTANDARD DOSE: 2.0 - 3.0 Includes: PROPHYLAXIS for venous thrombosis, systemic embolization; TREATMENT for venous thrombosis and/or pulmonary embolus.HIGH RISK: Target INR is 2.5-3.5 for patients with mechanical heart valves.CBC W/PLT COUNT & AUTO [id number] 11:36:56 Test Item Value Reference Range Interpretation [...] (BEAKER) (test code = 2801) CT, CTA [id number] 15:27:00Unlisted Reason for Exam - Click Yes and Enter Reason Below->YesUnlisted Reason for Exam->Pre op planning, aortic anatomy and cannulation site identification, severe MR, [facility] : 1935 Sex: FAddendum BeginsREPORT STATUS:A Addendum: I agree with the previously described non vascular findings. Sigmoid diverticulosis, without evidence for diverticulitis. Signed: Marvin Soaresip MDReport Verified Date/Time: 04/18/2022 15:27:52 Reading Location: [facility] Diagnostic Imaging Reading Room - [facility] 1.310.12Addendum EndsFINAL REPORT CT angiography of the thoracoabdominal aorta and pelvic arteries, 16-Apr-22 INDICATION: This is a 86 year old female with with severe mitral regurgitation tricuspid regurgitation, presents for preoperative assessment, for aortic anatomy and cannulation site. TECHNIQUE: Spiral acquisition before and during intravenous contrast administr ation using a [employer] multidetector CT scanner. Images were obtained before [...] Small renal cysts are seen in the kid eys, some are too small to characterise. [...] An addendum will be dictated by the Oil Separator Radiologist regarding the nonvascular findings. THE REPORT WILL ONLY BE CONSIDERED COMPLETE AFTER THE ADDENDUM HAS BEEN DICTATED. Signed: Fabrizio Cardona MDReport Verified Date/Time: 04/17/2022 16:14:11 CT, CTA, [id number] 15:27:00Unlisted Reason for Exam - Click Yes and Enter Reason Below->YesUnlisted Reason for Exam->Pre op planning, aortic anatomy and cannulation site identification, severe MR, severe [facility] : 1935 Sex: FAddendum BeginsREPORT STATUS:A Addendum: I agree with the previously described non vascular findings. Sigmoid diverticulosis, without evidence for diverticulitis. Signed: Jose Ramon Soares MDReport Verified Date/Time: 04/18/2022 15:27:52 Reading Location: [facility] Diagnostic Imaging Reading Room - [facility] 1[facility].12Addendum EndsFINAL REPORT CT angiography of the thoracoabdominal aorta and pelvic arteries, 16-Apr-22 INDICATION: This is a 86 year old female with with severe mitral regurgitation tricuspid regurgitation, presents for preoperative assessment, for aortic anatomy and cannulation site. TECHNIQUE: Spiral acquisition before and during intravenous contrast administr ation using a [employer] multidetector CT scanner. Images were obtained before [...] An addendum will be dictated by the Oil Separator Radiologist regarding the nonvascular findings. THE REPORT WILL ONLY BE CONSIDERED COMPLETE AFTER THE ADDENDUM HAS BEEN DICTATED. Signed: Fabrizio Cardona MDReport Verified Date/Time: 04/17/2022 16:14:11 Y-[id number] 10:19:24 Test Item Value Reference Range Interpretation Comments POC-Creatinine (test 1.0 mg/dL 0.6-1.3 : TESTE D AT [facility] 1317 code = 23500-0) [place] [address] 478: Arch Cushion Skiving Machine Operator/Techni juan ID = [id number] for Rebecca Guillen POC-EGFR (test code 53 mL/min/1.73M2 = 14022-7) [facility]-[id number] 10:19:24 Test Item Value Reference Range Interpretation Comments POC-Creatinine (test 1.0 mg/dL 0.6-1.3 : TESTE D AT [facility] 1317 code = 37433-6) [facility] [address] [place], [place] [address] 478: Arch Cushion Skiving Machine Operator/Techni juan ID = [id number] for Rebecca Guillen POC-EGFR (test code 53 mL/min/1.73M2 = 52029-3) [facility]-[id number] 10:19:24 Test Item Value Reference Range Interpretation Comments POC-CREATININE 1.0 mg/dL 0.6-1.3 : TESTED AT [facility] [address] (BEAKER) (test [facility] [address], code = 1859) [place] [address] 478: Arch Cushion Skiving Machine Operator/Techni juan ID = [id number] for Rebecca Bello POC-EGFR 53 mL/min/1.73M2 (BEAKER) (test code = 1860) - XR CHEST 2 [id number] 00:00:00 [facility] : 1935 Sex: FFAX: Chace Sanz MD [phone] [place]: St: REG FAX: Christel Alvarez Name: SCARLETT GARRETT [facility] : 1935 Age/S: 86/F [address] [place] [address] Blvd Unit #: [id number] Loc: [place] [address] 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 Views: 2 views. COMPARISON: No relevant prior studies available. FINDINGS: Lungs: No focal consolidations. Pleural spaces: Unremarkable. Nopleural effusion. No pneumothorax. Heart/Mediastinum: Unremarkable. Vasculature: Aortic atherosclerot ic calcifications. Bones/joints: Diffuse osseous demineralization. IMPRESSION: No acute cardiopulmonary abnormalities. at 0739 Reported and signed by: Vazquez Amaro M.D. CC: Chace Nava MD; Christel Alvarez NP Technologist: RT Taylor(R) Trnscrd Date/Time/By: 04/02/2022 (0739) : By: [email or web address] Orig Print D/T: S: 04/02/2022 (0757) PAGE 1 Signed ReportCOVID 19 Asymptomatic IH [id number] 19:00:00 Test Item Value Reference Range Interpretation Comments COVID 19 Asymptomatic Negative Negative A nega tive result is IH AG (test code = presumpti ve and should COVNONPUIAG) be confirmedwit h an FDA authorized mole cular assay, if neces mylene forpatient edi gement.A positive result does not rule out co-inf ections withother patho gens.This test detects beab th viable (live) and non-viable,SARS -CoV, and [...] high or waivedcomplexit y tests. BASIC METABOLIC [id number] 16:31:00 Test Item Value Reference Range Interpretation [...] = 9.7 mg/dL 8.0-10.5 N CA) PROTHROMBIN [id number] 16:29:00 Test Item Value Reference Range Interpretation [...] (to prevent recurrent infar ct). CBC W/AUTO [id number] 16:22:00 Test Item Value Reference Range Interpretation [...] ([facility])2020-04-28 10:18:00 Test Item Value Reference Range Interpretation Comments SARS-COV2/RT-PCR (test code = Negative Not Detected, Negative 0268993) SARS-COV-2 PERFORMING LAB [facility] (test code = 8997768) Negative result for this test determines that [...] of the Act.Fact Sheet for Healthcare Prov iders:https://www.kozaza.com/sites/default/files/product/documents/Fact_Sheet_HC _Aabubueum_Zeah_FKYG-JuL-7.pdfFact Sheet for Healthcare Patients:https://www.kozaza.com/sites/default/files/product/docume nts/Bggt_Ualdt_Dihnbkkl_Fmkw_PSOA-XnP-3.pdfPerforming Laboratory:[place] [address] [place] [address]- MRI L-SPINE W/O CONT 2019-12-05 13:16:00 Patient Name: SCARLETT GARRETT Unit No: [id number] EXAMS: CPT CODE: [id number] MRI L-SPINE W/O CONT 03012 TECHNIQUE: Multiplanar, multisequence MRI examination performed of [...] stenosis. No significant left foraminal stenosis. L5/S1: Grade1 spondylolisthesis. Broad disc bulge is present. Moderate central canal stenosis is noted as well as right lateral recess stenosis. There is mild to moderate left, mild right foraminal stenosis. IMPRESSION: Postoperative lumbar spine with multilevel spondylosis, greatest at L1-L2, where there is moderate central canal stenosis and marked disc degeneration. at 1316 Reported and signed by: Bartolo Brumfield M.D. [facility] NAME: SCARLETT GARRETT [address] [place] [address] PHYS: Lobo Villalba MD : 1935 AGE: 84 SEX: F [place] [address] LOC: Y.MRI PHONE #: [phone] EXAM DATE: 12/02/2019 STATUS: DEP CLI FAX #: [phone] RAD #: D/C DT PAGE 1 Signed Report (CONTINUED) Patient Name: SCARLETT GARRETT Unit No: [id number] EXAMS: CPT CODE: [id number] MRI L-SPINE W/O CONT 75420 (Continued) CC: Richi Sanchez M.D. Technologist: AMRIK FORD, UMESH Transcribed D/ (1316) SilvanoRika [facility] NAME: SCARLETT GARRETT [address] [place] [address] PHYS: Lobo Villalba MD : 1935 AGE: 84 SEX: F [place] [address] LOC: Y.MRI PHONE #: [phone] EXAM DATE: 12/02/2019 STATUS: DEP CLI FAX #: [phone] RAD #: D/C DT PAGE 2 Signed Report Patient Name: SCARLETT GARRETT Unit No: [id number] EXAMS: CPT CODE: [id number] MRI L-SPINE W/O CONT 82585 (Continued) Orig Print D/T: S: 12/05/2019 (1320) [facility] NAME: SCARLETT GARRETTNISHA [address] [place] [address] PHYS: Lobo Villalba MD : 1935 AGE: 84 SEX: F [place], [place] [address] LOC: YALICE PHONE #: [phone] EXAM DATE: 12/02/2019 STATUS: DEP CLI FAX #: [phone] RAD #: D/C DT PAGE 3 Signed Report Notes Date/Time Note Provider Source 2022-04-26 10:22:50-00:[address] [facility] OPERATIVE/PROCEDURE REPORT SCARLETT GARRETT FACILITY: [facility] Billing #: [id number] Room: [facility] MR #: [id number] : 1935 DATE OF PROCEDURE: 04/26/2022 SURGEON: Gus Brito MD PREOPERATIVE DIAGNOSIS: Hemothorax. POSTOPERATIVE DIAGNOSIS: Hemothorax. PROCEDURE PERFORMED: Right anterior thoracotomy, evacuation of hematoma, and placement of chest tube. IT LEAD: ANNABELLA Garcia. ANESTHETIC: General endotracheal. HISTORY: The [...] irrigated with an tibiotics. We added a 28-Nigerien chest tube up into the apex an [...] indicated for cardiac surgical procedures . MRM/MODL /[id number] 2022-04-24 17:44:51-00:[address] [facility] OPERATIVE/PROCEDURE REPORT SCARLETT GARRETT FACILITY: [facility] Billing #: [id number] Room: [place] [address] MR #: [id number] : 1935 DATE OF PROCEDURE: 04/24/2022 SURGEON: [...] and femoral artery exploration fo r cannulation IT LEAD: ANNABELLA Parks. ANESTHETIC: General endotracheal. HISTORY: The [...] from the right superior pulmonary vein inferiorly. Visualizatio n was very difficult given the large nature [...] a 28 mm CG ba nd from [employer] and tied in place and secured in [...] not indicated for cardiac surgical procedures. MRM/MODL /[id number] 2022-04-09 15:59:00-00:00 [id number] [place] [address] PATIENT NAME: SCARLETT GARRETT ADMIT DATE: ACCOUNT NO: [id number] ROOM NO: AGE: 86 REPORT TYPE: eTRANSESOPHAGEAL ECHO REPORT SEX: F ADMITTING PHYSICIAN: ATTENDING PHYSICIAN:Chace Nava MD *[facility]* [address] [place] [address] Transesophageal Echocardiogram with Cardioversio n Patient: Scarlett Garrett Study Date: 04/02/2022 BP: 112 / 78 Location: [facility] URN: [id number] : 1935 Age: 86 Height: 69 in / 175.3 cm Gender: F Weight: 169 .6 lb / 77.1 kg BMI/BSA: 25.1 kg/m 2 / 1.93 m 2 *Ordering Physician: * Chace Nava *Interpreting Physician: * Elijah Mas MD *Filter Changer: * Lorna Irving Indications: A-FIB. Study data: Transesophageal echocardiogram with cardioversion. Consent: The risks, benefits, and alternatives t o the procedure were explained to the patient and informed consent wa s obtained. Procedure: Initial setup: The patient was brought to the [facility] in the fasting state.Intravenous access was obtained. Surface E CG leads and pulse oximetric signals were monitored. Sedation. Mode rate sedation was administered by cardiology staff. Transesophagea l echocardiography was performed. Topical anesthesia was obtained using benzocaine spray. A transesophageal probe (SN: [id number]) was inserted by the attending surface water technician without difficulty. Patient status: Outpatient. Patient room number: CVPREP 17. Study status: Routine. Vivek faith completion: The patient tolerated the procedure well. There were no complications. Rhythm: Atrial fibrillation. PATIENT NAME: SCARLETT GARRETT ACCOUNT #: [id number] Findings Left ventricle: The cavity size is [...] is identified. Echo contrast study shows no zqybv-yj-bysa atrial lev el shunt. Aortic valve: The [...] is identified. Echo contrast study shows no rxbvz-cb-lkib atrial le keith shunt. 5. Aortic valve: [...] PATIENT NAME: SCARLETT GARRETT ACCOUNT #: [id number] Elijah Mas MD 04/09/2022 15:59 Electronically Signed by Chace Nava MD on at 1559 PATIENT NAME: SCARLETT GARRETT ACCOUNT #: [id number] 2022-04-02 12:38:00-00:00 HCACL [facility] ([facility]) Clinical Note REPORT#:[id number] REPORT STATUS: Signed DATE:04/02/22 TIME: 1238 PATIENT: SCARLETT GARRETT UNIT #: [id number] ROOM/BED: : 36 AGE: 86 SEX: F ATTEND: Beatriz Nava MD ADM AUTHOR: Johnna May * ALL edits or amendments must be made on the [employer]/computer document * Clinical Note Note: STS RISK SCORES Procedure: Isolated MVR Risk of Mortality: 3.681% Renal Failure: 1.950% Permanent Stroke: 1.693% Prolonged Ventilation: 10.781% DSW Infection: 0.072% Reoperation: 5.923% Morbidity or Mortality: 17.426% Short Length of Stay: 16.028% Long Length of Stay: 12.420% at 2131 at 1940 RPT #:[id number] END OF REPORT 2022-04-02 12:17:00-00:00 [facility]ACL [facility] ([facility]) Cardiothoracic Surgery Consult REPORT#:[id number] REPORT STATUS: Signed DATE:04/02/22 TIME: 1217 PATIENT: SCARLETT GARRETT UNIT #: [id number] ROOM/BED: : 36 AGE: 86 SEX: F ATTEND: Beatriz Nava MD ADM AUTHOR: Johnna May * ALL edits or amendments must be made on the [employer]/computer document * Rosey Potter 04/02/22 1217: History [...] hypertension. She has been admitted to the [facility] today for LARS. CV surgery consulted for [...] 5 MG TAB DAILY PRN ALLERGIES 0804 0847 [VITAMIN A D] 1 TAB PO DAILY 03/07/13 04/02/22 Strength: 0805 0847 SOTALOL (BETAPACE) 160 MG PO BID 04/01/2204/02 Strength: 160 MG TAB 1822 0847 DILTIAZEM (CARDIZEM) 30 MG PO TID 04/01/22 Strength: 30 MG TAB 1823 0847 APIXABAN (ELIQUIS) 5 MG PO BID 04/01/22 Strength: 5 MG TAB 1823 0847 LEVOTHYROXINE 50 MCG PO DAILY 04/01/22 04/02/22 (SYNTHROID) 1823 0847 Strength: 50 MCG TAB MONTELUKAST (SINGULAIR) 10 MG PO DAILY 04/01/22 04/02/22 Strength: 10 MG TAB 1824 0847 MAGNESIUM OXIDE 400 MG PO DAILY 04/01/22 (MAG-OXIDE) 1824 0847 Strength: 400 MG TAB ZINC GLUCONATE 50 MG PO DAILY 04/01/22 04/02/22 Strength: 50 MG TAB 1824 0847 [AREDS 2] 04/01/22 04/02/22 Strength: 1825 [...] soft, non-tender, no distention Extremities: moves all Neuro/RECOVERY UNIT OPERATOR: alert, oriented X 3, normal speech, n [...] % (Auto) (14.0 - 32.0 %) 14.3 [place] % (Auto) (4.8 - 9.0 %) 13.7 H Eos % (Auto) (0.3 - 3.7 %) 4.1 H Baso % (Auto) (0.0 - 2.0 %) 0.8 Neut # (Auto) (2.0 - 7.6 x10 3/uL) 5.68 Lymph # (Auto) (1.0 - 3.8 x10 3/uL) 1.21 [place] # (Auto) (0.1 - 0.8 x10 3/uL) [...] surgery. Thank you for the consultation. The zaar ent was seen and plan reviewed with Arash Solano 04/10/221933: Attestations Physician Attestation Agree w/findings plan: [...] left heart ca th. at 2131 at 1940 RPT #:[id number] END OF REPORT 2022-04-01 15:44:00-00:00 [id number] [place] [address] PATIENT NAME: SCARLETT GARRETT ADMIT DATE: ACCOUNT NO: [id number] ROOM NO: AGE: 86 REPORT TYPE: eELECTROCARDIOGRAM REPORT SEX: F ADMITTING PHYSICIAN: ATTENDING PHYSICIAN:Chace Nava MD Order: [id number] Test Reason : PREOP Test Date/Time Stamp: [...] PATIENT NAME: SCARLETT GARRETT ACCOUNT #: [id number]
[2023-03-17 22:15] LABS: Absolute Lymphocytes (CBC) 1.1 K/uL (0.7-4.9); Hematocrit 32.5 % (36.0-45.0); Lymphocytes % 9.7 % (15.3-44.8); MCV 100.4 fL (80-100); MPV 6.7 fL (7.6-11.3); RBC Red Blood Cell Count 3.24 M/uL (3.86-4.86)
--- NOTE | 2023-03-17 22:24 | RAD REPORT ---
EXAM DESCRIPTION: Skip Single View03/17/2023 10:10 pm CLINICAL HISTORY: Chest pain COMPARISON: 2021 FINDINGS: The lungs appear clear of acute infiltrate. The heart is normal size IMPRESSION: No acute abnormalities displayed
[2023-03-17 22:34] LABS: Albumin 3.3 g/dL (3.4-5.0); Bilirubin Direct 0.1 mg/dL (0-0.2); Bilirubin Indirect, Calculated 0.2 mg/dL (0.2-0.8); Bilirubin Total 0.3 mg/dL (0.2-1.0); Magnesium 2.3 mg/dL (1.6-2.4); Potassium 3.7 mEq/L (3.5-5.1); Protein, Total 6.2 g/dL (6.4-8.2); Troponin High Sensitivity 9.6 pg/mL (<58.9)
[2023-03-17 23:04] LABS: Protime INR 0.91
--- NOTE | 2023-03-18 01:37 | EDPHYS ---
Physician Documentation [facility] Name: Scarlett Garrett Age: 87 yrs Sex: Female : 1935 Arrival Date: 03/17/2023 Time: 21:44 Bed 8 Private MD: ED Physician Royer Gaming HPI: 03/17 21:52 This 87 yrs old Female presents to ER via Unassigned with complaints of low sp4 heart rate . 03/18 01:00 87-year-old female with past medical history of atrial fibrillation, dizziness, sp4 hypertension, hypothyroidism.. 01:03 Patient also has history of valvular repair via open heart surgery, patient presents sp4 with several days of worsening dyspnea, generalized weakness, fatigue and low heart rate in the 40s. She states that her smart watch alerted her of the fact that her heart is low.. Historical: - Allergies: 03/17 21:54 Cipro; kd3 21:54 Levaquin; kd3 - PMHx: 21:54 Arthritis; Atrial Fib; Hypertension; Hypothyroidism; mitral valve; severe tricuspid kd3 valve regurgitation; Hypothyroidism; Depression; - PSHx: 21:54 Valve replacement; kd3 - Immunization history:: Adult Immunizations up to date. - Social history:: Smoking status: Patient denies any tobacco usage or history of. - Family history:: not pertinent. ROS: 03/18 01:03 Constitutional: Negative for fever, chills, and weight loss, positive generalized sp4 weakness, positive fatigue Eyes: Negative for injury, pain, redness, and discharge, ENT: Negative for injury, pain, and discharge, Neck: Negative for injury, pain, and swelling, Cardiovascular: Negative for chest pain, palpitations, and edema, positive for low heart rate Respiratory: Negative for shortness of breath, cough, wheezing, and pleuritic chest pain, Abdomen/GI: Negative for abdominal pain, nausea, vomiting, diarrhea, and constipation, Back: Negative for injury and pain, : Negative for injury, bleeding, discharge, and swelling, MS/Extremity: Negative for injury and deformity, Skin: Negative for injury, rash, and discoloration, Neuro: Negative for headache, weakness, numbness, tingling, and seizure, Psych: Negative for depression, anxiety, Allergy/Immunology: Negative for hives, rash, and allergies Endocrine: Negative for neck swelling, polydipsia, polyuria, polyphagia, and weight changes Hematologic/Lymphatic: Negative for swollen nodes, abnormal bleeding, and unusual bruising Exam: 01:03 Constitutional: This is a well developed, well nourished patient who is awake, alert, sp4 and in no acute distress. Frail elderly female nontoxic-appearing, bradycardic on the monitor, normotensive Head/Face: Normocephalic, atraumatic. Eyes: Pupils equal round and reactive to light, extra-ocular motions intact. Lids and lashes normal. Conjunctiva and sclera are not injected. Cornea within normal limits. Periorbital areas with no swelling, redness, or edema. ENT: Nares patent. No nasal discharge, no septal abnormalities noted. Tympanic membranes are normal and external auditory canals are clear. Oropharynx with no redness, swelling, or masses, exudates, or evidence of obstruction, uvula midline. Mucous membranes moist. Neck: Trachea midline, no thyromegaly or masses palpated, and no cervical lymphadenopathy. Supple, full range of motion without nuchal rigidity, or vertebral point tenderness. No Meningismus. Chest/axilla: Normal chest wall appearance and motion. Nontender with no deformity. No lesions are appreciated. Cardiovascular: Regular rate and rhythm with a normal S1 and S2. No gallops, murmurs, or rubs. Normal PMI, no JVD. No pulse deficits. Respiratory: Lungs have equal breath sounds bilaterally, clear to auscultation and percussion. No rales, rhonchi or wheezes noted. No increased work of breathing, no retractions or nasal flaring. Abdomen/GI: Soft, non-tender, with normal bowel sounds. No distension or tympany. No guarding or rebound. No evidence of tenderness throughout. Back: No spinal tenderness. No costovertebral tenderness. Skin: Warm, dry with normal turgor. Normal color with no rashes, no lesions, and no evidence of cellulitis. MS/ Extremity: Pulses equal, no cyanosis. Neurovascular intact. Full, normal range of motion. Neuro: Awake and alert, GCS 15, oriented to person, place, time, and situation. Cranial nerves II-XII grossly intact. Motor strength 5/5 in all extremities. Sensory grossly intact. Psych: Awake, alert, with orientation to person, place and time. Behavior, mood, and affect are within normal limits 01:03 Cardiovascular: Regular bradycardia rhythm with a normal S1 and S2. No gallops, sp4 murmurs, or rubs. Normal PMI, no JVD. No pulse deficits. 01:03 ECG was reviewed by the Attending Physician. Marked sinus bradycardia at rate of 42, no ST elevation or depression, no ectopy. Vital Signs: 03/17 21:51 BP 130 / 61; Pulse 43; Resp 16; Temp 98.5(O); Pulse Ox 98% on R/A; Weight 65.32 kg; kd3 Height 5 ft. 9 in. ; 23:00 BP 103 / 62; Pulse 38; Resp 12; Pulse Ox 94% on R/A; ll3 03/18 00:30 BP 114 / 60; Pulse 44; Resp 12; Pulse Ox 99% on 2 lpm NC; ll3 01:30 BP 129 / 64; Pulse 47; Resp 15; Pulse Ox 99% on R/A; ll3 03/17 21:51 Body Mass Index 21.26 (65.32 kg, 175.26 cm) kd3 MDM: 03/17 22:12 Patient medically screened. sp4 03/18 01:08 Differential Diagnosis altered mental status, sepsis, flu. sp4 01:34 Data reviewed: vital signs, nurses notes, old medical records, lab test result(s), EKG, sp4 radiologic studies, plain films. Consideration of Admission/Observation Patient was admitted/placed on observation. Escalation of care including admission/observation considered. Management of patient was discussed with the following: [place] Supervisor: Elijah CHAMBERS . Primary Care Provider: Blaine CHAMBERS . ED course: Patient's EKG reveals suggestion of P waves before QRS complex consistent with marked sinus bradycardia may be secondary to amiodarone or metoprolol. Patient's table hand advised discontinuation of amiodarone and metoprolol. And admission for observation . Patient's additional medications include trazodone, magnesium, vitamin C, cetirizine, Flexeril, Lexapro, hydrocodone as needed, montelukast. Patient takes amiodarone 200 mg p.o. twice daily metoprolol tartrate 1 p.o. twice daily. . 03/17 21:52 Order name: Basic Metabolic Panel sp4 03/17 21:52 Order name: CBC with Diff; Complete Time: 00:57 4 03/17 21:52 Order name: LFT's [facility] 03/17 21:52 Order name: Magnesium [facility] 03/17 21:52 Order name: NT PRO-BNP [facility] 03/17 21:52 Order name: PT-INR; Complete Time: 00:57 4 03/17 21:52 Order name: Troponin HS [facility] 03/18 01:06 Order name: T4 Free [facility] 03/18 01:06 Order name: Thyroid Stimulating Hormone [facility] 03/18 01:08 Order name: SARS RAPID [facility] 03/18 05:08 Order name: Troponin High Sensitivity [facility] 03/18 14:25 Order name: Troponin High Sensitivity [facility] 03/17 21:52 Order name: XRAY Chest (1 view); Complete Time: 00:57 4 03/17 21:52 Order name: EKG; Complete Time: 21:53 4 03/17 21:52 Order name: Cardiac monitoring; Complete Time: 22:07 [facility] 03/17 21:52 Order name: EKG - Nurse/Tech; Complete Time: 21:57 4 03/17 21:52 Order name: IV Saline Lock; Complete Time: 22:07 4 03/17 21:52 Order name: Labs collected and sent; Complete Time: 22:07 4 03/17 21:52 Order name: O2 Per Protocol; Complete Time: 21:57 sp4 03/17 21:52 Order name: O2 Sat Monitoring; Complete Time: 21:57 sp4 EC:03 Rate is 42 beats/min. Rhythm is regular, Sinus bradycardia. QRS [place] is Normal. [place] sp4 interval is normal. QT interval is normal. T waves are Normal. No ST changes noted. Clinical impression: Sinus bradycardia and No evidence of ischemia. Interpreted by me. Administered Medications: No medications were administered Disposition Summary: 03/18/23 01:37 Hospitalization Ordered Hospitalization Status: Observation sp4 Provider: Aron Valladares Condition: Stable sp4 Problem: new sp4 Symptoms: have improved sp4 Bed/Room Type: Standard 4 Location: Telemetry/MedSurg (observation)(03/18/23 13:14) dw Room Assignment: 219(03/18/23 13:14) dw Diagnosis - Bradycardia, unspecified - Symptomatic bradycardia, marked sinus bradycardia, sp4 generalized weakness Forms: - Medication Reconciliation Form sp4 - SBAR form sp4 Signatures: Dispatcher [employer] EDMS Rody Whitaker RN RN Stephany Lara RN RN Emily Malagon RN RN kd3 Royer Gaming MD MD sp4 Corrections: (The following items were deleted from the chart) 01:06 01:01 THYROID STIMULAT HORMONE+C.LAB.BRZ ordered. EDMS EDMS 01:06 01:01 T4 FREE+C.LAB.BRZ ordered. EDND EDMS 01:47 01:37 Telemetry/MedSurg (observation) sp4 cg 01:47 01:37 sp4 cg 13:14 01:47 BR ER HOLD cg dw 13:14 01:47 ERHOLD- cg dw
--- NOTE | 2023-03-18 01:37 | ER ---
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 She was supposed to see her specialist on Thursday but she has been progressively been getting more short of breath and weak with a heart rate in the 40's. Coronavirus screen: Vaccine status:. Ebola Screen: No symptoms or risks identified at this time. Initial Sepsis Screen: Does the patient meet any 2 criteria? No. Patient's initial sepsis screen is negative. Does the patient have a suspected source of infection? No. Patient's initial sepsis screen is negative. Risk Assessment: Do you want to hurt yourself or someone else? Patient reports no desire to harm self or others. Onset of symptoms was March 17, 2023. 21:51 Method Of Arrival: EMS: [facility] kd3 21:51 Acuity: VANESA 3 kd3 Triage Assessment: 21:54 General: Appears uncomfortable, Behavior is calm, cooperative. Pain: Denies pain. kd3 Historical: - Allergies: 21:54 Cipro; kd3 21:54 Levaquin; kd3 - PMHx: 21:54 Arthritis; Atrial Fib; Hypertension; Hypothyroidism; mitral valve; severe tricuspid kd3 valve regurgitation; Hypothyroidism; Depression; - PSHx: 21:54 Valve replacement; kd3 - Immunization history:: Adult Immunizations up to date. - Social history:: Smoking status: Patient denies any tobacco usage or history of. - Family history:: not pertinent. Screenin:05 [facility] ED Fall Risk Assessment (Adult) History of falling in the last 3 months, kd3 including since admission No falls in past 3 months (0 pts) Confusion or Disorientation No (0 pts) Intoxicated or Sedated No (0 pts) Impaired Gait No (0 pts) Mobility Assist Device Used No (0 pt) Altered Elimination No (0 pt) Score/Fall Risk Level 0 - 2 = Low Risk Oriented to surroundings, Maintained a safe environment, Educated pt \T\ family on fall prevention, incl call for assistance when getting out of bed. Abuse screen: Denies threats or abuse. Denies injuries from another. Nutritional screening: No deficits noted. Tuberculosis screening: No symptoms or risk factors identified. Assessment: 22:08 General: Appears uncomfortable, Behavior is calm, cooperative. Pain: Denies pain. kd3 Neuro: Level of Consciousness is awake, alert, obeys commands, Oriented to person, place, time, situation, Reports weakness C/o feeling lethargic all day today. Cardiovascular: Reports since States apple watch alerted for HR in the 40S today Denies chest pain, Patient's skin is warm and dry. Chest pain is denied. Respiratory: Respiratory effort is even, unlabored, Respiratory pattern is regular, symmetrical. Derm: Skin is pink, warm \T\ dry. Musculoskeletal: Circulation, motion, and sensation intact. 23:10 Reassessment: No changes from previously documented assessment. Patient and/or family ll3 updated on plan of care and expected duration. Pain level reassessed. Patient is alert, oriented x 3, equal unlabored respirations, skin warm/dry/pink. Vital Signs: 21:51 BP 130 / 61; Pulse 43; Resp 16; Temp 98.5(O); Pulse Ox 98% on R/A; Weight 65.32 kg; kd3 Height 5 ft. 9 in. ; 23:00 BP 103 / 62; Pulse 38; Resp 12; Pulse Ox 94% on R/A; ll3 03/18 00:30 BP 114 / 60; Pulse 44; Resp 12; Pulse Ox 99% on 2 lpm NC; ll3 01:30 BP 129 / 64; Pulse 47; Resp 15; Pulse Ox 99% on R/A; ll3 03/17 21:51 Body Mass Index 21.26 (65.32 kg, 175.26 cm) kd3 ED Course: 03/17 21:48 Patient arrived in ED. kl 21:51 Emily Carreon, LEE ANN is Primary Nurse. kd3 21:52 Royer Gaming MD is Attending Physician. sp4 21:54 Triage completed. kd3 21:54 Arm band placed on right wrist. kd3 22:05 Patient has correct armband on for positive identification. Placed in gown. Bed in low kd3 position. Call light in reach. Side rails up X 1. Client placed on continuous cardiac and pulse oximetry monitoring. NIBP monitoring applied. 22:08 CBC with Diff Sent. rv 22:08 LFT's Sent. rv 22:08 Magnesium Sent. rv 22:08 NT PRO-BNP Sent. rv 22:08 PT-INR Sent. rv 22:08 Troponin HS Sent. rv 22:08 Inserted saline lock: 20 gauge in left forearm, using aseptic technique. Blood rv collected. 22:12 XRAY Chest (1 view) In Process Unspecified. EDMO 03/18 01:36 Aron Valladares MD is Hospitalizing Provider. sp4 02:24 No provider procedures requiring assistance completed. Patient admitted, IV remains in rv place. Administered Medications: No medications were administered Medication: 02:24 VIS not applicable for this client. rv Outcome: 01:37 Decision to Hospitalize by Provider. sp4 02:24 Admitted to ER Hold. Please see [facility] for further documentation. rv 02:24 Condition: good 02:24 Instructed on the need for admit. 14:41 Patient left the ED. ph Signatures: Dispatcher [employer] EDMO Christel Duenas, RN Antionette John RN RN ph Vicente, Ronaldo, RN RN rv Loubet, Lynsea, RN RN ll3 Emily Carreon RN RN kd3 Royer Gaming MD MD sp4
[2023-03-18 01:43] LABS: SARS-CoV-2 Antigen Rapid Res Negative (Negative)
[2023-03-18] MEDS ORDERED: ALPRAZOLAM 0.5 MG TABLET PO PRN (02:17)
[2023-03-18] MEDS ORDERED: ONDANSETRON 4 MG/2 ML VIAL IV PRN (02:17)
[2023-03-18] MEDS ORDERED: ALBUTEROL 2.5 MG/3 ML NEB SOL NEB PRN ×2 (02:17→12:00)
[2023-03-18] MEDS ORDERED: HYDROCODONE/APAP 5/325 MG TAB PO PRN ×2 (02:17→08:02)
[2023-03-18 02:31] LABS: Thyroid Stimulating Hormone 3.8 uIU/mL (0.358-3.740)
[2023-03-18 02:43] VITALS: BMI 21.2
--- NOTE | 2023-03-18 08:08 | P.HP ---
Certification for Inpatient Patient admitted to: Observation With expected LOS: <2 Midnights Patient will require the following post-hospital care: None Practitioner: I am a practitioner with admitting privileges, knowledge of patient current condition, hospital course, and medical plan of care. Services: Services provided to patient in accordance with Admission requirements found in Title 42 Section 412.3 of the Code of Federal Regulations Patient History Date of Service: 03/18/23 Primary Care Provider: Blaine History of Present Illness: Office patient of mine with a history of atrial fib. She was started on Amiodarone by Dr. Nava recently. She was feeling very tired and her apple watch stated that her pulse was in the 40s The patient came to the ER. I saw her this morning. Dr David was there and wanted to hold the amiodarone and metoprolol for a day. she was noted during the night to have apnea spells by the nursing staff. Considering she has afib this would be very likely sleep apnea Allergies ciprofloxacin [From Cipro] Allergy (Verified 09/27/22 00:06) Unknown levofloxacin [From Levaquin] Allergy (Verified 09/27/22 00:06) Rash Home Medications: Fish Oil/Dha/Epa [Fish Oil 1,200 mg Fish Oil] 1 each PO BID 08/14/15 Trazodone [Desyrel*] 100 mg PO BEDTIME 08/14/15 Magnesium [Magnesium Gluconate] 250 mg PO DAILY 01/24/19 vit A and D3 in cod liver oiL [Cod Liver Oil Softgel] 1 tab PO BID 01/24/19 Ascorbic Acid [Vitamin C*] 2,000 mg PO BID 04/27/20 Cetirizine HCl [Zyrtec] 10 mg PO DAILY 12/16/20 Cyclobenzaprine [Flexeril*] 1 tab PO PRN PRN 03/15/22 Escitalopram Oxalate [Lexapro] 20 mg PO DAILY 03/15/22 Hydrocodone Bit/Acetaminophen [Hydrocodon-Acetaminophen 5-325] 1 tab PO PRN PRN 03/15/22 Montelukast Sodium [Singulair] 10 mg PO DAILY 03/15/22 Amiodarone HCl [Cordarone*] 200 mg PO BID 90 Days #180 tab 03/04/23 Metoprolol Tartrate 1 tab PO BID 90 Days #180 tab 03/04/23 - Past Medical/Surgical History Diabetic: No -: arthritis -: depression -: severe TVR -: Hypertension -: Hypothyroidism -: hip replacement -: back surgery -: Elbow surgery -: hysterectomy -: appendectomy Psychosocial/ Personal History: Patient lives at home - Family History Father -: Heart disease Sister -: Hypertension, Stroke, Other (see notes) - Social History Smoking Status: Never smoker Alcohol use: No CD- Drugs: No Caffeine use: Yes Review of Systems 10-point ROS is otherwise unremarkable General: Weakness Physical Examination - Vital Signs Temperature: 98 F Blood Pressure: 137/58 Pulse: 42 Respirations: 17 Pulse Ox (%): 98 - Physical Exam General: Alert, In no apparent distress HEENT: Atraumatic, PERRLA, Mucous membr. moist/pink, EOMI, Sclerae nonicteric Neck: Supple, 2+ carotid pulse no bruit, No LAD, Without JVD or thyroid abnormality Respiratory: Clear to auscultation bilaterally, Normal air movement Cardiovascular: Regular rate/rhythm, Normal S1 S2 Gastrointestinal: Normal bowel sounds, No tenderness Musculoskeletal: No tenderness Integumentary: No rashes Neurological: Normal gait, Normal speech, Normal strength at 5/5 x4 extr, Normal tone, Normal affect Lymphatics: No axilla or inguinal lymphadenopathy - Studies Laboratory Data (last 24 hrs) 03/17/23 22:00: PT 10.0, INR 0.91 03/17/23 22:00: WBC 11.20 H, Hgb 11.2 L, Hct 32.5 L, Plt Count 213 03/17/23 22:00: Sodium 132 L, Potassium 3.7, BUN 26 H, Creatinine 0.89, Glucose 111 H, Magnesium 2.3, Total Bilirubin 0.3, AST 26, ALT 38, Alkaline Phosphatase 45 Assessment and Plan - Problems (Diagnosis) (1) Bradycardia Current Visit: No Status: Acute Plan: most likely iatrogenic. Will hold the metoprolol and amiodarone. Keep her on Tele. Possible discharge tomorrow if her heart rate recovers. (2) Atrial fibrillation Current Visit: No Status: Chronic Plan: She has a follow up appointment this Thursday with Electrophysiology. Perhaps a pacemaker or ablation as an outpatient Qualifiers: Atrial fibrillation type: paroxysmal (3) HTN (hypertension) Current Visit: No Status: Chronic Plan: start her home medications and adjust as necessary Qualifiers: Hypertension type: primary hypertension (4) Obstructive sleep apnea (adult) (pediatric) Current Visit: Yes Status: Acute Plan: most likely she has sleep apnea. 80% of patient with arrythmia do. The patient has a stop bang score of 4, so high risk of sleep apnea. - Advance Directives Does patient have a Living Will: No Does patient have a Durable POA for Healthcare: No - Code Status/Comfort Care Code Status Assessed: No Physician Review: Patient Assessed, Agree with Above Assessment and Plan Critical Care: No Time Spent Managing Pts Care (In Minutes): 50
[2023-03-18] MEDS: MONTELUKAST 10 MG TAB PO SCH (09:00)
[2023-03-18] MEDS: ESCITALOPRAM 20 MG TAB PO SCH (09:00)
[2023-03-18] MEDS: ACETAMINOPHEN 500 MG TAB PO PRN ×3 (09:30→20:36)
[2023-03-18] MEDS ORDERED: ACETAMINOPHEN 325 MG TABLET ONE (09:38)
--- NOTE | 2023-03-18 11:31 | CON ---
Date of Consultation: 03/18/2023 Reason For Consultation: Bradycardia. History Of Present Illness: Ms. Garrett is 87, seen Dr. Valladares not long ago, was in the hospital with a trial fibrillation, was placed on amiodarone. She was taking metoprolol 25 mg daily. She comes back with significant bradycardia, heart rate of 52, dizziness, and just not feeling good in general. He art rate was 42. BNP was 2600. Denied any chest pain, nausea, vomiting, diaphoresis, PND, orthopnea , pedal edema, or syncope. Past Medical History: As stated above. Allergies: INCLUDE CIPRO AND LEVAQUIN. Medications: At home with amiodarone and metoprolol. Review of Systems: Negative. Social History: Negative. Family History: Negative. Physical Examination: Vital Signs: Heart rate was 42. Vital signs were otherwise stable, afebrile. HEENT: Negative. Neck: Supple with no bruit. Chest: Clear. Cardiac: Revealed S4 gallops, bradycardia. Abdomen: Benign. Extremities: Revealed no clubbing, cyanosis, edema. Diagnostic Data: As stated earlier. Impression And Plan: Bradycardia, sinus, secondary to the combination of amiodarone and metoprolol. We would hold both of them for now. She has an appointment on Thursday with electrophysiology studies in [place]. I will find that who ordered that she is going to be seeing, but it sounds like she may need a pacemaker and an ablation. It may be reasonable to keep her until tomorrow. RACHEL/SAUL Voice ID: [id number] Report ID: [id number]
[2023-03-18] MEDS ORDERED: HYDROCODONE/APAP 5/325 MG TAB ONE (13:38)
[2023-03-18] MEDS ORDERED: IBUPROFEN 400 MG TAB PO ONE (17:12)
[2023-03-18 20:35] LABS: Urine RBC <5 /HPF (None Seen)
[2023-03-18 21:09] LABS: Specific Gravity 1.016 (1.005-1.030); Urine Bacteria None Seen /HPF (<20); Urine Bilirubin NEGATIVE (Negative); Urine Blood Negative (Negative); Urine Clarity Clear (Clear); Urine Color Light-Yellow (Yellow); Urine Glucose NEGATIVE (Negative); Urine Protein NEGATIVE (Negative); Urine Urobilinogen Normal (Normal); Urine pH 6.5 (5.0-7.0)
[2023-03-19] MEDS: MONTELUKAST 10 MG TAB PO SCH (07:49)
[2023-03-19] MEDS: ACETAMINOPHEN 500 MG TAB PO PRN (07:49)
[2023-03-19] MEDS: ESCITALOPRAM 20 MG TAB PO SCH (07:50)
[2023-03-19 09:04] VITALS: O2SAT 97
--- NOTE | 2023-03-19 11:04 | PN ---
The patient admitted to Dr. Valladares yesterday for bradycardia. Today, her heart rate is improved, alth ough still in the 40s, but it is in the upper 40s. She is feeling better. Her headache has gone tobias y. She is off metoprolol. She is off amiodarone. She has atrial fibrillation that is obviously not compatible with beta-blockers and amiodarone. She has an EP appointment tomorrow and I would like t o have her go home today, go to her EP appointment tomorrow. Hopefully, she will end up with an abla tion and/or a pacemaker. Again, when she goes home, she will stay off amiodarone and metoprolol. RACHEL/SAUL Voice ID: [id number] Report ID: [id number]
--- NOTE | 2023-03-19 12:11 | EKG ---
Test Date: 2023-03-17 Test Time: 21:48:18 Geographic Information System Analyst: RV MEASUREMENT RESULTS: Intervals: Rate: 42 CA: QRSD: 76 QT: 560 QTc: 467 [place]: P: CA: QRS: -4 T: 80 INTERPRETIVE STATEMENTS: Junctional bradycardia Nonspecific ST and T wave abnormality Abnormal ECG Compared to ECG 09/26/2022 19:45:50 Sinus bradycardia no longer present ST (T wave) deviation still present Electronically Signed On 03-19-23 12:06:20 CDT by Mingo David
[2023-03-19 12:22] VITALS: BP 142/68; TEMP 98
--- NOTE | 2023-03-19 12:51 | P.DS ---
Admission Date: 03/18/23 Discharge Date: 03/19/23 Primary Care Provider: Blaine Disposition: ROUTINE DISCHARGE Discharge Condition: GOOD - Problems (1) Bradycardia Current Visit: No Status: Acute (2) Atrial fibrillation Current Visit: No Status: Chronic Qualifiers: Atrial fibrillation type: paroxysmal (3) HTN (hypertension) Current Visit: No Status: Chronic Qualifiers: Hypertension type: primary hypertension (4) Obstructive sleep apnea (adult) (pediatric) Current Visit: Yes Status: Acute Brief History of Present Illness: Office patient of [employer] with a history of atrial fib. She was started on Amiodarone by Dr. Nava recently. She was feeling very tired and her apple watch stated that her pulse was in the 40s The patient came to the ER. I saw her this morning. Dr David was there and wanted to hold the amiodarone and metoprolol for a day. she was noted during the night to have apnea spells by the nursing staff. Considering she has afib this would be very likely sleep apnea Hospital Course: Patient was admitted for bradycardia. She is feeling better today. Slight improvement with her pulse. She has a follow with electrophysiology tomorrow. Will stop her amiodarone. As she had apnea in the hospital. Will need to get her an out patient sleep study. Treating sleep apnea will improve her atrial fib Vital Signs/Physical Exam: Temp Pulse Resp BP Pulse Ox 98 F 55 16 142/68 H 96 03/19/23 12:00 03/19/23 12:00 03/19/23 12:00 03/19/23 12:00 03/19/23 12:00 General: Alert, In no apparent distress HEENT: Atraumatic, PERRLA, EOMI Neck: Supple, JVD not distended Respiratory: Clear to auscultation bilaterally, Normal air movement Cardiovascular: Regular rate/rhythm, Normal S1 S2 Gastrointestinal: Normal bowel sounds, No tenderness Musculoskeletal: No tenderness Integumentary: No rashes Neurological: Normal speech, Normal tone, Normal affect Lymphatics: No axilla or inguinal lymphadenopathy Laboratory Data at Discharge: WBC 11.20 thou/uL (4.3-10.9) H 03/17/23 22:00 Hgb 11.2 g/dL (12.0-15.0) L 03/17/23 22:00 Hct 32.5 % (36.0-45.0) L 03/17/23 22:00 Plt Count 213 thou/uL (152-406) 03/17/23 22:00 PT 10.0 SECONDS (9.5-12.5) 03/17/23 22:00 INR 0.91 03/17/23 22:00 Sodium 132 mEq/L (136-145) L 03/17/23 22:00 Potassium 3.7 mEq/L (3.5-5.1) 03/17/23 22:00 BUN 26 mg/dL (7-18) H 03/17/23 22:00 Creatinine 0.89 mg/dL (0.55-1.02) 03/17/23 22:00 Glucose 111 mg/dL (74-106) H 03/17/23 22:00 Magnesium 2.3 mg/dL (1.6-2.4) 03/17/23 22:00 Total Bilirubin 0.3 mg/dL (0.2-1.0) 03/17/23 22:00 AST 26 U/L (15-37) 03/17/23 22:00 ALT 38 U/L (13-56) 03/17/23 22:00 Alkaline Phosphatase 45 U/L (45-117) 03/17/23 22:00 Home Medications: Fish Oil/Dha/Epa [Fish Oil 1,200 mg Fish Oil] 1 each PO BID 08/14/15 Trazodone [Desyrel*] 100 mg PO BEDTIME 08/14/15 Magnesium [Magnesium Gluconate] 250 mg PO DAILY 01/24/19 vit A and D3 in cod liver oiL [Cod Liver Oil Softgel] 1 tab PO BID 01/24/19 Ascorbic Acid [Vitamin C*] 2,000 mg PO BID 04/27/20 Cetirizine HCl [Zyrtec] 10 mg PO DAILY 12/16/20 Cyclobenzaprine [Flexeril*] 1 tab PO PRN PRN 03/15/22 Escitalopram Oxalate [Lexapro] 20 mg PO DAILY 03/15/22 Hydrocodone Bit/Acetaminophen [Hydrocodon-Acetaminophen 5-325] 1 tab PO PRN PRN 03/15/22 Montelukast Sodium [Singulair] 10 mg PO DAILY 03/15/22 Amiodarone HCl [Cordarone*] 200 mg PO BID 90 Days #180 tab 03/04/23 Metoprolol Tartrate 1 tab PO BID 90 Days #180 tab 03/04/23 Alprazolam [Xanax] 0.25 mg PO 03/18/23 Celecoxib 200 mg PO DAILY 03/18/23 Omeprazole 20 mg PO DAILY 90 Days #90 tab 03/19/23 metroNIDAZOLE [Flagyl] 500 mg PO TID 5 Days #15 tab 03/19/23 New Medications: metroNIDAZOLE [Flagyl] 500 mg PO TID 5 Days #15 tab Omeprazole 20 mg PO DAILY 90 Days #90 tab Diet: Regular Activity: Ad bria Physician Review: Patient Assessed, Agree with Above Assessment and Plan Time spent managing pt's care (in minutes): 30
== END 2023-03-19 13:29 | disposition home or self-care (01) ==
LOC: ER 21:44 → ERHOLD 03-18 01:25 → 2ND 03-18 14:23
PROVIDERS: ADMIT Internal Medicine; ATTEND Internal Medicine
DX: R00.1 Bradycardia, unspecified (principal); I48.0 Paroxysmal atrial fibrillation; I10 Essential (primary) hypertension; G47.33 Obstructive sleep apnea (adult) (pediatric); Z88.1 Allergy status to other antibiotic agents; Z88.6 Allergy status to analgesic agent; Z20.822 Contact with and (suspected) exposure to COVID-19
CPT/HCPCS: 93005; 85025; 81001; 80048; 36415; 83735; 85610; 80076; 84443; 84484 ×3; 84439; 83880; 71045; 94760 ×3; 99285; 87811; G0378 ×4

== ENCOUNTER 2023-03-29 13:01 | Observation (INO) | payer OTHER ==
--- NOTE | 2023-03-29 13:46 | RAD REPORT ---
EXAM DESCRIPTION: Skip Single View03/29/2023 1:40 pm CLINICAL HISTORY: Generalized weakness COMPARISON: February 2023 FINDINGS: Mild right basilar opacity may represent a small area of atelectasis Otherwise, lungs appear clear of acute infiltrate. The heart is normal size
[2023-03-29] MEDS ORDERED: METOPROLOL TAR 25 MG TAB ONE (13:50)
[2023-03-29 14:04] LABS: Magnesium 2.4 mg/dL (1.6-2.4); Potassium 4.1 mEq/L (3.5-5.1); Troponin High Sensitivity 15.9 pg/mL (<58.9)
[2023-03-29 14:10] LABS: Absolute Lymphocytes (CBC) 0.9 K/uL (0.7-4.9); Hematocrit 36.2 % (36.0-45.0); Lymphocytes % 10.1 % (15.3-44.8); MCV 99.4 fL (80-100); MPV 6.4 fL (7.6-11.3); RBC Red Blood Cell Count 3.64 M/uL (3.86-4.86)
[2023-03-29] MEDS ORDERED: ACETAMINOPHEN 325 MG TABLET ONE (14:43)
--- NOTE | 2023-03-29 15:05 | ER ---
Nurse's Notes [facility] Name: Scarlett Garrett Age: 87 yrs Sex: Female : 1935 Arrival Date: 03/29/2023 Time: 13:01 Bed 13 Private MD: Diagnosis: Unspecified atrial fibrillation;Hyponatremia;Other malaise Presentation: 03/29 13:13 Chief complaint: Patient states: has been feeling weak, brain feels foggy for several iw weeks, is scheduled for pacemaker placement this week, she also feels like she has a mouthful of salt, this started after she inadvertently oversalted her dinner recently. Coronavirus screen: At this time, the client does not indicate any symptoms associated with coronavirus-19. Ebola Screen: Patient negative for fever greater than or equal to 101.5 degrees Fahrenheit, and additional compatible Ebola Virus Disease symptoms Patient denies exposure to infectious person. No symptoms or risks identified at this time. Initial Sepsis Screen: Does the patient meet any 2 criteria? No. Patient's initial sepsis screen is negative. Does the patient have a suspected source of infection? No. Patient's initial sepsis screen is negative. Risk Assessment: Do you want to hurt yourself or someone else? Patient reports no desire to harm self or others. 13:13 Method Of Arrival: Wheelchair iw 13:13 Acuity: VANESA 3 iw 13:33 Onset of symptoms was March 29, 2023. bp Triage Assessment: 15:30 General: Appears in no apparent distress. comfortable, Behavior is cooperative, bp appropriate for age, anxious. 15:30 Pain: Denies pain. EENT: No deficits noted. Neuro: Reports weakness GENERALIZED. bp Historical: - Allergies: 13:16 Cipro; iw 13:16 Levaquin; iw - Home Meds: 13:16 aspirin 81 mg Oral capsule once [Active]; Lasix 20 mg Oral tablet daily [Active]; iw levothyroxine 50 mcg capsule daily [Active]; Lexapro 20 mg Oral tablet daily [Active]; trazodone 100 mg Oral tablet daily [Active]; Singulair 10 mg Oral tablet daily [Active]; Celebrex 200 mg Oral capsule daily [Active]; 18:11 Eliquis Oral [Active]; bp - PMHx: 13:16 Arthritis; Atrial Fib; Depression; Hypertension; Hypothyroidism; Hypothyroidism; mitral iw valve; severe tricuspid valve regurgitation; - PSHx: 13:16 Valve replacement; iw - Immunization history:: Adult Immunizations up to date. - Social history:: Smoking status: Patient denies any tobacco usage or history of. Screenin:26 [facility] ED Fall Risk Assessment (Adult) History of falling in the last 3 months, bp including since admission No falls in past 3 months (0 pts). Abuse screen: Denies threats or abuse. Denies injuries from another. Nutritional screening: No deficits noted. Tuberculosis screening: No symptoms or risk factors identified. Assessment: 13:20 General: SEE TRIAGE NOTE. bp 14:26 Reassessment: No changes from previously documented assessment. Patient is alert, bp oriented x 3, equal unlabored respirations, skin warm/dry/pink. Vital Signs: 13:13 BP 129 / 81; Pulse 96; Resp 18; Temp 98.7; Pulse Ox 98% on R/A; Weight 65.32 kg; Height iw 5 ft. 9 in. ; 14:30 BP 131 / 92; Pulse 103; Resp 16; Pulse Ox 99% ; bp 16:00 BP 146 / 94; Pulse 84; Resp 16; Pulse Ox 98% ; bp 18:00 BP 136 / 90; Pulse 101; Resp 15; Pulse Ox 97% ; bp 13:13 Body Mass Index 21.26 (65.32 kg, 175.26 cm) iw ED Course: 13:04 Patient arrived in ED. ts1 13:06 Gayle Burkett [facility]-C [facility] kb 13:06 Herbert Rodriges MD is Attending Physician. kb 13:12 José Sykes, LEE ANN is Primary Nurse. bp 13:16 Triage completed. iw 13:18 Arm band placed on. iw 13:24 Patient has correct armband on for positive identification. Placed in gown. Bed in low mm9 position. Call light in reach. Side rails up X2. Adult w/ patient. Warm blanket given. Client placed on continuous cardiac and pulse oximetry monitoring. NIBP monitoring applied. mint machine operator on. Pulse ox on. NIBP on. 13:24 EKG done, by ED staff, reviewed by Gayle WHITE. mm9 13:42 Chest Single View In Process Unspecified. EDMS 13:46 Inserted saline lock: 22 gauge in left forearm, using aseptic technique. bp 15:04 Herbert Rodriges MD is Hospitalizing Provider. kb 15:04 Aron Valladares MD is Hospitalizing Provider. kb 18:07 No provider procedures requiring assistance completed. Patient admitted, IV remains in bp place. Administered Medications: 13:46 Drug: Metoprolol PO 25 mg Route: PO; bp 15:07 Follow up: Response: No adverse reaction bp 14:38 Drug: Acetaminophen PO 650 mg Route: PO; bp 15:07 Follow up: Response: No adverse reaction bp Outcome: 15:05 Decision to Hospitalize by Provider. kb 18:06 Admitted to Med/surg accompanied by tech, family with patient, via stretcher, room 229, bp Report called to AYUSH NANCE 18:11 Condition: stable bp 18:11 Instructed on the need for admit. 18:41 Patient left the ED. bp Signatures: Dispatcher [employer] EDMS Gayle Burkett, COPY SUPERVISOR-C COPY SUPERVISOR-Ckb Dinah Fierro RN José Foley RN RN Shelli Lou mm9 Jerrica Elmore PAS PAS ts1 Corrections: (The following items were deleted from the chart) 13:17 13:12 Social history: bp bp 13:41 13:33 To radiology for Chest Single View+[email or web address]. mm9 EDMS 14:39 14:25 BP 138 / 113; Pulse 111bpm; Resp 16bpm; Pulse Ox 99%; bp bp
--- NOTE | 2023-03-29 15:06 | EDPHYS ---
Physician Documentation [facility] Name: Scarlett Garrett Age: 87 yrs Sex: Female : 1935 Arrival Date: 03/29/2023 Time: 13:01 Bed 13 Private MD: ED Physician Herbert Rodriges HPI: 03/29 13:31 This 87 yrs old Female presents to ER via Wheelchair with complaints of High salt kb intake, General Weakness. 13:31 Patient is a 87-year-old female with a history of A-fib, hypertension, hypothyroidism kb who presents for malaise been ongoing for the last week. States symptoms got worse after having some salty pasta on . States since then she has been feeling like her mouth was full of salt. Reports she is scheduled to have a pacemaker placed this and wanted to come in to make sure everything looked okay so that she can have that done. Patient reports she was recently taken off of metoprolol and amiodarone, last week, in preparation for the pacemaker placement. Daughter states pt had similar symptoms when she was in a.fib in the past. . Onset: The symptoms/episode began/occurred last week. Severity of symptoms: At their worst the symptoms were mild in the emergency department the symptoms are unchanged. The patient has experienced similar episodes in the past, a few times. The patient has been recently seen by a physician:. Historical: - Allergies: 13:16 Cipro; iw 13:16 Levaquin; iw - Home Meds: 13:16 aspirin 81 mg Oral capsule once [Active]; Lasix 20 mg Oral tablet daily [Active]; iw levothyroxine 50 mcg capsule daily [Active]; Lexapro 20 mg Oral tablet daily [Active]; trazodone 100 mg Oral tablet daily [Active]; Singulair 10 mg Oral tablet daily [Active]; Celebrex 200 mg Oral capsule daily [Active]; 18:11 Eliquis Oral [Active]; bp - PMHx: 13:16 Arthritis; Atrial Fib; Depression; Hypertension; Hypothyroidism; Hypothyroidism; mitral iw valve; severe tricuspid valve regurgitation; - PSHx: 13:16 Valve replacement; iw - Immunization history:: Adult Immunizations up to date. - Social history:: Smoking status: Patient denies any tobacco usage or history of. ROS: 13:31 Cardiovascular: Negative for chest pain, palpitations, and edema, Respiratory: Negative kb for shortness of breath, cough, wheezing, and pleuritic chest pain. 13:31 Constitutional: Positive for malaise. 13:31 All other systems are negative. Exam: 13:30 Constitutional: This is a well developed, well nourished patient who is awake, alert, kb and in no acute distress. Head/Face: Normocephalic, atraumatic. ENT: Moist Mucous membranes Cardiovascular: Regular rate and rhythm with a normal S1 and S2. No gallops, murmurs, or rubs. No pulse deficits. Respiratory: Respirations even and unlabored. No increased work of breathing. Talking in full sentences Abdomen/GI: Soft, non-tender. No distention Skin: Warm, dry with normal turgor. Normal color. MS/ Extremity: Pulses equal, no cyanosis. Neurovascular intact. Full, normal range of motion. Neuro: Awake and alert, GCS 15, oriented to person, place, time, and situation. Moves all extremities. Normal gait. 13:30 ECG was reviewed by the Attending Physician. Vital Signs: 13:13 BP 129 / 81; Pulse 96; Resp 18; Temp 98.7; Pulse Ox 98% on R/A; Weight 65.32 kg; Height iw 5 ft. 9 in. ; 14:30 BP 131 / 92; Pulse 103; Resp 16; Pulse Ox 99% ; bp 16:00 BP 146 / 94; Pulse 84; Resp 16; Pulse Ox 98% ; bp 18:00 BP 136 / 90; Pulse 101; Resp 15; Pulse Ox 97% ; bp 13:13 Body Mass Index 21.26 (65.32 kg, 175.26 cm) iw MDM: 13:06 Patient medically screened. kb 13:31 Data reviewed: vital signs, nurses notes. kb 13:35 Differential Diagnosis A-fib, dehydration, electrolyte imbalance. kb 15:04 Consideration of Admission/Observation Patient was admitted/placed on observation. kb Management of patient was discussed with the following: Primary Care Provider: Dr Valladares accepts pt for admission. Counseling: I had a detailed discussion with the patient and/or guardian regarding: the historical points, exam findings, and any diagnostic results supporting the discharge/admit diagnosis, lab results, radiology results, the need for further work-up and treatment in the hospital. 03/29 13:10 Order name: Basic Metabolic Panel; Complete Time: 14:12 kb 03/29 13:10 Order name: CBC with Diff; Complete Time: 14:12 kb 03/29 13:10 Order name: Magnesium; Complete Time: 14:12 kb 03/29 13:10 Order name: Troponin HS; Complete Time: 14:12 kb 03/29 13:22 Order name: Chest Single View; Complete Time: 13:51 EDMS 03/29 13:10 Order name: EKG; Complete Time: 13:27 kb 03/29 13:10 Order name: Cardiac monitoring; Complete Time: 13:19 kb 03/29 13:10 Order name: EKG - Nurse/Tech; Complete Time: 13:30 kb 03/29 13:10 Order name: IV Saline Lock; Complete Time: 13:46 kb 03/29 13:10 Order name: Labs collected and sent; Complete Time: 13:46 kb 03/29 13:10 Order name: O2 Per Protocol; Complete Time: 13:19 kb 03/29 13:10 Order name: O2 Sat Monitoring; Complete Time: 13:19 kb 03/29 13:55 Order name: Labs - recollect needed: CBC; Complete Time: 14:25 iw 03/29 14:29 Order name: Vital Signs; Complete Time: 14:38 kb EC:30 Rate is 111 beats/min. Rhythm is irregularly irregular. QRS Martin is Normal. QRS kb interval is normal at 74 msec. QT interval is normal at 489 msec. Administered Medications: 13:46 Drug: Metoprolol PO 25 mg Route: PO; bp 15:07 Follow up: Response: No adverse reaction bp 14:38 Drug: Acetaminophen PO 650 mg Route: PO; bp 15:07 Follow up: Response: No adverse reaction bp Disposition: 18:52 Co-signature as Attending Physician, Herbert Rodriges MD I reviewed the patient's care rn provided by the Advanced Practice Provider and agree with the diagnosis and treatment plan. Disposition Summary: 03/29/23 15:05 Hospitalization Ordered Hospitalization Status: Observation kb Provider: Aron Valladares Location: Telemetry/MedSurg (observation) kb Condition: Stable kb Problem: new kb Symptoms: are unchanged kb Bed/Room Type: Standard Room Assignment: 229(06/11/23 17:28) eb Diagnosis - Unspecified atrial fibrillation kb - Hyponatremia kb - Other malaise kb Forms: - Medication Reconciliation Form kb - SBAR form kb Signatures: Dispatcher [employer] EDMS Gayle Burkett FNP-C FNP-Dinah Skelton, RN Herbert Ramirez MD MD rn Peltier, Brian, Anne Kraft RN Corrections: (The following items were deleted from the chart) 13:17 13:12 Social history: bp bp 13:41 13:27 Chest Single View+RAD.RAD.BRZ ordered. EDMS EDMS 17:28 15:05 kb eb
--- NOTE | 2023-03-29 15:43 | P.HP ---
Certification for Inpatient Patient admitted to: Observation With expected LOS: <2 Midnights Patient will require the following post-hospital care: None Practitioner: I am a practitioner with admitting privileges, knowledge of patient current condition, hospital course, and medical plan of care. Services: Services provided to patient in accordance with Admission requirements found in Title 42 Section 412.3 of the Code of Federal Regulations Patient History Date of Service: 03/29/23 Primary Care Provider: Christian Reason for admission: tachycardia History of Present Illness: Patient is an office patient of Mrs Gonzales. She has a history of atrial fib with RVR The patient has some salty food on night. Got scared this would delay her pacemaker placement on in [place]. The patient has been drinking 2 glasses of water with every meal for the past few days. She states she felt very weak and cloudy headed. Came back to the ER. Was found to be having a heart rate in the 110's. She did not complain of chest pain or dizzyness. She is otherwise doing well. will admit her for observations. Allergies ciprofloxacin [From Cipro] Allergy (Verified 09/27/22 00:06) Unknown levofloxacin [From Levaquin] Allergy (Verified 09/27/22 00:06) Rash Home Medications: Fish Oil/Dha/Epa [Fish Oil 1,200 mg Fish Oil] 1 each PO BID 08/14/15 Trazodone [Desyrel*] 100 mg PO BEDTIME 08/14/15 Magnesium [Magnesium Gluconate] 250 mg PO DAILY 01/24/19 vit A and D3 in cod liver oiL [Cod Liver Oil Softgel] 1 tab PO BID 01/24/19 Ascorbic Acid [Vitamin C*] 2,000 mg PO BID 04/27/20 Cetirizine HCl [Zyrtec] 10 mg PO DAILY 12/16/20 Cyclobenzaprine [Flexeril*] 1 tab PO PRN PRN 03/15/22 Escitalopram Oxalate [Lexapro] 20 mg PO DAILY 03/15/22 Hydrocodone Bit/Acetaminophen [Hydrocodon-Acetaminophen 5-325] 1 tab PO PRN PRN 03/15/22 Montelukast Sodium [Singulair] 10 mg PO DAILY 03/15/22 Amiodarone HCl [Cordarone*] 200 mg PO BID 90 Days #180 tab 03/04/23 Metoprolol Tartrate 1 tab PO BID 90 Days #180 tab 03/04/23 Alprazolam [Xanax] 0.25 mg PO 03/18/23 Celecoxib 200 mg PO DAILY 03/18/23 - Past Medical/Surgical History Diabetic: No -: arthritis -: depression -: severe TVR -: Hypertension -: Hypothyroidism -: hip replacement -: back surgery -: Elbow surgery -: hysterectomy -: appendectomy Psychosocial/ Personal History: Patient lives at home - Family History Father -: Heart disease Sister -: Hypertension, Stroke, Other (see notes) - Social History Alcohol use: No CD- Drugs: No Caffeine use: Yes Review of Systems 10-point ROS is otherwise unremarkable General: Weakness, Malaise Physical Examination - Physical Exam General: Alert, In no apparent distress HEENT: Atraumatic, PERRLA, Mucous membr. moist/pink, EOMI, Sclerae nonicteric Neck: Supple, 2+ carotid pulse no bruit, No LAD, Without JVD or thyroid abnormality Respiratory: Clear to auscultation bilaterally, Normal air movement Cardiovascular: Regular rate/rhythm, Normal S1 S2 Gastrointestinal: Normal bowel sounds, No tenderness Musculoskeletal: No tenderness Integumentary: No rashes Neurological: Normal gait, Normal speech, Normal strength at 5/5 x4 extr, Normal tone, Normal affect Lymphatics: No axilla or inguinal lymphadenopathy - Studies Laboratory Data (last 24 hrs) 03/29/23 14:05: WBC 8.50, Hgb 12.2, Hct 36.2, Plt Count 223 03/29/23 13:40: Sodium 124 L, Potassium 4.1, BUN 17, Creatinine 0.77, Glucose 95, Magnesium 2.4 Assessment and Plan - Problems (Diagnosis) (1) Hyponatremia Current Visit: Yes Status: Acute Plan: will give a 500cc of normal saline. Reasurred her that she most likely will not loose her pacemaker due to mild electrolyte changes. (2) Atrial fibrillation Current Visit: No Status: Chronic Plan: will admit her . Intermittent metoprolo if she has an elevated pulse. However she is starting to normalize. Will give her some low dose digoxin. have discussed the patient with Dr. David. Qualifiers: Atrial fibrillation type: unspecified Qualified Code(s): I48.91 - Unspecified atrial fibrillation (3) HTN (hypertension) Current Visit: No Status: Chronic Plan: restart home medications. Adjust as needed Qualifiers: Hypertension type: primary hypertension Discharge Plan: Home Plan to discharge in: 24 Hours - Advance Directives Does patient have a Living Will: No Does patient have a Durable POA for Healthcare: No - Code Status/Comfort Care Code Status Assessed: No Code Status: Full Code Physician Review: Patient Assessed, Agree with Above Assessment and Plan Critical Care: No Time Spent Managing Pts Care (In Minutes): 65
[2023-03-29] MEDS ORDERED: SODIUM CHL 0.9% 1000 ML BAG IV SCH (18:11)
[2023-03-29] MEDS ORDERED: ACETAMINOPHEN 500 MG TAB PO PRN (18:11)
[2023-03-29] MEDS ORDERED: METOPROLOL TARTRATE 5 MG/5 ML INJ IV PRN (18:11)
[2023-03-29] MEDS ORDERED: ENOXAPARIN 40 MG/0.4 ML SQ SCH (18:11)
[2023-03-29 18:13] VITALS: BMI 21.2
[2023-03-29 19:09] VITALS: O2SAT 97
[2023-03-29] MEDS ORDERED: ALPRAZOLAM 0.25 MG TABLET PO SCH (21:00)
[2023-03-29] MEDS ORDERED: ASCORBIC ACID 500 MG TABLET PO SCH (21:00)
[2023-03-29] MEDS ORDERED: TRAZODONE 50 MG TABLET PO SCH (21:00)
[2023-03-29] MEDS ORDERED: AMIODARONE HCL 200 MG TAB PO SCH (21:00)
[2023-03-29] MEDS ORDERED: TRAZODONE 50 MG TABLET PO PRN (21:27)
[2023-03-30 03:39] LABS: Absolute Lymphocytes (CBC) 1.3 K/uL (0.7-4.9); Lymphocytes % 17.1 % (15.3-44.8); MCV 99.5 fL (80-100); MPV 6.9 fL (7.6-11.3); RBC Red Blood Cell Count 3.72 M/uL (3.86-4.86)
[2023-03-30 03:56] LABS: Potassium 4.7 mEq/L (3.5-5.1)
--- NOTE | 2023-03-30 08:23 | P.DS ---
Admission Date: 03/29/23 Discharge Date: 03/30/23 Primary Care Provider: Christian Disposition: ROUTINE DISCHARGE Discharge Condition: GOOD Reason for Admission: tachycardia - Problems (1) Hyponatremia Current Visit: Yes Status: Acute (2) Atrial fibrillation Current Visit: No Status: Chronic Qualifiers: Atrial fibrillation type: unspecified Qualified Code(s): I48.91 - Unspecified atrial fibrillation (3) HTN (hypertension) Current Visit: No Status: Chronic Qualifiers: Hypertension type: primary hypertension Brief History of Present Illness: Patient is an office patient of Mrs Gonzales. She has a history of atrial fib with RVR The patient has some salty food on night. Got scared this wo uld delay her pacemaker placement on in [place]. The patient has been drinking 2 glasses of water with every meal for the past few days. She states she felt very weak and cloudy headed. Came back to the ER. Was found to be having a heart rate in the 110's. She did not complain of chest pain or dizzyness. She is otherwise doing well. will admit her for observations. Hospital Course: Patient was admitted. Seen by Dr David. She is rate controlled this morning. Feels better. Will have her follow up with her supervisor home restoration service on for her pacemaker placement Vital Signs/Physical Exam: Temp Pulse Resp BP Pulse Ox 97.5 F 98 H 14 119/78 98 03/30/23 04:00 03/30/23 04:00 03/30/23 04:00 03/30/23 04:00 03/30/23 04:00 General: Alert, In no apparent distress HEENT: Atraumatic, PERRLA, EOMI Neck: Supple, JVD not distended Respiratory: Clear to auscultation bilaterally, Normal air movement Cardiovascular: Regular rate/rhythm, Normal S1 S2 Gastrointestinal: Normal bowel sounds, No tenderness Musculoskeletal: No tenderness Integumentary: No rashes Neurological: Normal speech, Normal tone, Normal affect Lymphatics: No axilla or inguinal lymphadenopathy Laboratory Data at Discharge: WBC 7.90 thou/uL (4.3-10.9) 03/30/23 03:05 Hgb 12.4 g/dL (12.0-15.0) 03/30/23 03:05 Hct 37.0 % (36.0-45.0) 03/30/23 03:05 Plt Count 217 thou/uL (152-406) 03/30/23 03:05 Sodium 129 mEq/L (136-145) L D 03/30/23 03:05 Potassium 4.7 mEq/L (3.5-5.1) D 03/30/23 03:05 BUN 16 mg/dL (7-18) 03/30/23 03:05 Creatinine 0.72 mg/dL (0.55-1.02) 03/30/23 03:05 Glucose 94 mg/dL (74-106) 03/30/23 03:05 Magnesium 2.4 mg/dL (1.6-2.4) 03/29/23 13:40 Home Medications: Fish Oil/Dha/Epa [Fish Oil 1,200 mg Fish Oil] 1 each PO BID 08/14/15 Trazodone [Desyrel*] 200 mg PO BEDTIME 08/14/15 Magnesium [Magnesium Gluconate] 250 mg PO DAILY 01/24/19 Ascorbic Acid [Vitamin C*] 2,000 mg PO BID 04/27/20 Cetirizine HCl [Zyrtec] 10 mg PO DAILY 12/16/20 Cyclobenzaprine [Flexeril*] 1 tab PO PRN PRN 03/15/22 Escitalopram Oxalate [Lexapro] 20 mg PO DAILY 03/15/22 Montelukast Sodium [Singulair] 10 mg PO DAILY 03/15/22 Alprazolam [Xanax] 0.25 mg PO DAILY PRN 03/18/23 Celecoxib 200 mg PO DAILY 03/18/23 Aspirin [Aspirin EC 81 MG] 81 mg PO DAILY 03/29/23 Hydrocodone Bit/Acetaminophen [Hydrocodon-Acetaminoph 7.5-325] 1 tab PO DAILY PRN 03/29/23 Diet: AHA Activity: Ad bria Followup: Aron Valladares MD [Primary Care Provider] - Physician Review: Patient Assessed, Agree with Above Assessment and Plan Time spent managing pt's care (in minutes): 30
[2023-03-30] MEDS ORDERED: ESCITALOPRAM 20 MG TAB PO SCH (09:00)
[2023-03-30] MEDS ORDERED: MONTELUKAST 10 MG TAB PO SCH (09:00)
[2023-03-30] MEDS ORDERED: DIGOXIN 0.125 MG TABLET PO SCH (09:00)
[2023-03-30] MEDS ORDERED: MAGNESIUM 200 MG PO SCH (09:00)
[2023-03-30] MEDS ORDERED: CETIRIZINE HCL 5 MG TABLET PO SCH (09:00)
[2023-03-30 09:28] VITALS: BP 146/80; TEMP 96.6
--- NOTE | 2023-03-30 12:04 | EKG ---
Test Date: 2023-03-29 Test Time: 13:16:37 Front Office Administrator: GOLDEN MEASUREMENT RESULTS: Intervals: Rate: 111 SD: QRSD: 74 QT: 360 QTc: 489 [place]: P: SD: QRS: -29 T: 117 INTERPRETIVE STATEMENTS: Atrial fibrillation with rapid ventricular response Nonspecific ST and T wave abnormality Abnormal ECG Compared to ECG 03/17/2023 21:48:18 No significant changes Electronically Signed On 03-30-23 12:00:38 CDT by Mingo David
== END 2023-03-30 09:20 | disposition home or self-care (01) ==
LOC: ER 13:01 → ERHOLD 15:05 → 2ND 18:13
PROVIDERS: ADMIT Internal Medicine; ATTEND Internal Medicine
DX: I48.91 Unspecified atrial fibrillation (principal); E87.1 Hypo-osmolality and hyponatremia; I10 Essential (primary) hypertension
CPT/HCPCS: 93005; 85025 ×2; 80048 ×2; 36415; 83735; 84484; 71045; 99285; J1650; J7030; G0378

== ENCOUNTER 2023-06-10 09:23 | Emergency (ER) | payer OTHER ==
[2023-06-10] MEDS ORDERED: ONDANSETRON 4 MG (ODT) TAB ONE (10:27)
[2023-06-10] MEDS ORDERED: HYDROCODONE/APAP 7.5/325 MG TAB ONE (10:27)
--- NOTE | 2023-06-10 10:31 | RAD REPORT ---
EXAM DESCRIPTION: Kenji Right Jeremias Cont06/10/2023 10:16 am CLINICAL HISTORY: Right knee pain and swelling COMPARISON: None TECHNIQUE: Computed axial tomography of the right knee was obtained with coronal and sagittal recons truction. All CT scans are performed using dose optimization technique as appropriate and may include automated exposure control or mA/KV adjustment according to patient size. FINDINGS: Large joint effusion. 3 centimeter Davis's cyst. Mildly depressed medial tibial plateau fracture Osteoporosis IMPRESSION: Mildly depressed medial tibial plateau fracture appears subacute Large joint effusion
--- NOTE | 2023-06-10 11:06 | ER ---
Nurse's Notes [facility] Name: Scarlett Garrett Age: 88 yrs Sex: Female : 1935 Arrival Date: 06/10/2023 Time: : Bed 18 Private MD: Diagnosis: tibial plateau fracture, right Presentation: 06/10 09:42 Chief complaint: Patient states: c/o right knee pain that has worsened since a fall 2 me1 wks ago. Coronavirus screen: Vaccine status: At this time, the client does not indicate any symptoms associated with coronavirus-19. Ebola Screen: No symptoms or risks identified at this time. Initial Sepsis Screen: Does the patient meet any 2 criteria? No. Patient's initial sepsis screen is negative. Does the patient have a suspected source of infection? No. Patient's initial sepsis screen is negative. Risk Assessment: Do you want to hurt yourself or someone else? Patient reports no desire to harm self or others. Onset of symptoms is unknown. 09:42 Method Of Arrival: Wheelchair me1 09:42 Acuity: VANESA 4 me1 Historical: - Allergies: 09:44 Cipro; me1 09:44 Levaquin; me1 - Home Meds: 09:44 aspirin 81 mg Oral capsule once [Active]; Celebrex 200 mg Oral capsule daily [Active]; me1 Lasix 20 mg Oral tablet daily [Active]; levothyroxine 50 mcg capsule daily [Active]; Lexapro 20 mg Oral tablet daily [Active]; Singulair 10 mg Oral tablet daily [Active]; trazodone 100 mg Oral tablet daily [Active]; amiodarone 200 mg Oral tablet every 12 hours [Active]; - PMHx: 09:44 Arthritis; Atrial Fib; Depression; Hypertension; mitral valve; severe tricuspid valve me1 regurgitation; Hypothyroidism; - PSHx: 09:44 Valve replacement; pacemaker placement; me1 - Immunization history:: Adult Immunizations up to date. - Social history:: Smoking status: Patient denies any tobacco usage or history of. Screenin:20 [facility] ED Fall Risk Assessment (Adult) Score/Fall Risk Level 3 or more points = High nj1 Risk Oriented to surroundings, Maintained a safe environment, Hourly rounding (assess needs \T\ fall precautionary measures) done, Utilized family, sitter, or virtual burial agent as indicated. Abuse screen: Denies threats or abuse. Denies injuries from another. Nutritional screening: No deficits noted. Tuberculosis screening: No symptoms or risk factors identified. Assessment: 10:20 General: Appears in no apparent distress. comfortable, Behavior is calm, cooperative, iw appropriate for age. 10:20 Pain: Complains of pain in right knee Pain currently is 7 out of 10 on a pain scale. iw Neuro: Level of Consciousness is awake, alert, obeys commands, Oriented to person, place, time, situation. Cardiovascular: Patient's skin is warm and dry. Respiratory: Airway is patent Respiratory effort is even, unlabored. Musculoskeletal: Reports pain in right knee. 11:45 Reassessment: Patient appears in no apparent distress at this time. Patient and/or nj1 family updated on plan of care and expected duration. Pain level reassessed. Patient is alert, oriented x 3, equal unlabored respirations, skin warm/dry/pink. Patient states feeling better. Vital Signs: 09:42 BP 145 / 73; Pulse 62; Resp 18; Temp 98.4(O); Pulse Ox 99% on R/A; Weight 65.32 kg; me1 Height 5 ft. 9 in. ; 11:45 BP 151 / 79; Pulse 60; Resp 18; Pulse Ox 100% ; Pain 5/10; nj1 09:42 Body Mass Index 21.26 (65.32 kg, 175.26 cm) me1 11:45 Pain Scale: Adult [facility] ED Course: 09:27 Patient arrived in ED. mg5 09:34 Reny Del Angel PA-C is PHCP. sb4 09:34 Edgar Lopez MD is Attending Physician. sb4 09:42 Arm band placed on Patient placed in waiting room. me1 09:43 Triage completed. me1 10:16 Knee Right Wo Cont In Process Unspecified. EDMS 10:20 Patient has correct armband on for positive identification. Bed in low position. Call [facility] light in reach. Adult w/ patient. 10:20 Provided Education on: fall precautions, call light. nj1 10:47 Dinah Fierro, LEE ANN is Primary Nurse. iw 11:04 Tra Heath MD is Referral Physician. sb4 11:40 Knee immobilizer applied on right knee. nj1 11:47 No provider procedures requiring assistance completed. Patient did not have IV access nj1 during this emergency room visit. Administered Medications: 10:22 Drug: Hydrocodone-Acetaminophen PO (7.5 mg-325 mg) 1 tabs Route: PO; 11:44 Follow up: Response: No adverse reaction; Pain is decreased nj1 10:22 Drug: Ondansetron PO 4 mg Route: PO; iw 11:44 Follow up: Response: No adverse reaction nj1 Medication: 11:46 VIS not applicable for this client. nj1 Outcome: 11:05 Discharge ordered by . [email or web address] 11:47 Discharged to home via wheelchair, with family. nj1 11:47 Condition: stable 11:47 Discharge instructions given to patient, family, Instructed on discharge instructions, follow up and referral plans. safety practices, Demonstrated understanding of instructions, follow-up care, Prescriptions given X 1. 11:53 Patient left the ED. nj1 Signatures: Dispatcher [employer] Dinah Bonilla RN RN iw Reny Del Angel, PABrooklynnC PA-Osmar sb4 Kateryna Barreto RN RN nj1 Shabnam Chadwick RN RN pr1 [employer] mg5 Corrections: (The following items were deleted from the chart) 09:47 09:44 PMHx: Hypothyroidism; pr1 pr1 11:08 10:20 Pain: Complains of pain in right knee nj1
--- NOTE | 2023-06-10 11:06 | EDPHYS ---
Physician Documentation [facility] Name: Scarlett Garrett Age: 88 yrs Sex: Female : 1935 Arrival Date: 06/10/2023 Time: : Bed 18 Private MD: ED Physician Edgar Lopez HPI: 06/10 10:17 This 88 yrs old Female presents to ER via Wheelchair with complaints of Knee Pain - sb4 Swelling, Fall Injury. 10:17 Onset: The symptoms/episode began/occurred 2 week(s) ago. The patient has not sb4 experienced similar symptoms in the past. patient reports she fell 2 weeks ago causing her to twist her right knee. she states the pain has gradually gotten worse, to the point where she can barely walk. she does have an appointment to see ortho in a week and a half but could not bear it anymore. Historical: - Allergies: 09:44 Cipro; me1 09:44 Levaquin; me1 - Home Meds: 09:44 aspirin 81 mg Oral capsule once [Active]; Celebrex 200 mg Oral capsule daily [Active]; me1 Lasix 20 mg Oral tablet daily [Active]; levothyroxine 50 mcg capsule daily [Active]; Lexapro 20 mg Oral tablet daily [Active]; Singulair 10 mg Oral tablet daily [Active]; trazodone 100 mg Oral tablet daily [Active]; amiodarone 200 mg Oral tablet every 12 hours [Active]; - PMHx: 09:44 Arthritis; Atrial Fib; Depression; Hypertension; mitral valve; severe tricuspid valve me1 regurgitation; Hypothyroidism; - PSHx: 09:44 Valve replacement; pacemaker placement; me1 - Immunization history:: Adult Immunizations up to date. - Social history:: Smoking status: Patient denies any tobacco usage or history of. ROS: 10:17 Constitutional: Negative for fever, chills, and weight loss. sb4 10:17 MS/extremity: Positive for injury or acute deformity, decreased range of motion, pain, of the right knee. 10:17 All other systems are negative. Exam: 10:17 Constitutional: This is a well developed, well nourished patient who is awake, alert, sb4 and in no acute distress. Head/Face: Normocephalic, atraumatic. Eyes: Extra-ocular motions intact. Periorbital areas with no swelling, redness, or edema. Skin: Warm, dry with normal turgor. Normal color with no rashes, no lesions, and no evidence of cellulitis. 10:17 Musculoskeletal/extremity: ROM: limited active range of motion due to pain, limited passive range of motion due to pain, Circulation is intact in all extremities. the right knee Sensation intact. Vital Signs: 09:42 BP 145 / 73; Pulse 62; Resp 18; Temp 98.4(O); Pulse Ox 99% on R/A; Weight 65.32 kg; me1 Height 5 ft. 9 in. ; 11:45 BP 151 / 79; Pulse 60; Resp 18; Pulse Ox 100% ; Pain 5/10; nj1 09:42 Body Mass Index 21.26 (65.32 kg, 175.26 cm) me1 11:45 Pain Scale: Adult nj1 MDM: 09:34 Patient medically screened. sb4 10:17 Differential diagnosis: contusion, fracture, sprain, strain. sb4 11:15 Data reviewed: vital signs, nurses notes, radiologic studies, I have discussed the sb4 patient's presentation/case with the attending Emergency Department Physician; and as a result, I will discharge patient. Consideration of Admission/Observation Escalation of care including admission/observation considered. Independent interpretation of the following test(s) in the Emergency Department CT Scan: My interpretation is my interpretation of the knee CT images are acute fracture, no obvious displacement. Historians other than the Patient: Daughter/Son: daughter. Care significantly affected by the following chronic conditions: Hypertension. Care significantly affected by the following Social Determinants of Health: Problems related to primary support group. Counseling: I had a detailed discussion with the patient and/or guardian regarding the historical points, exam findings, and any diagnostic results supporting the discharge/admit diagnosis, radiology results, the need for outpatient follow up, a orthopedic surgeon, to return to the emergency department if symptoms worsen or persist or if there are any questions or concerns that arise at home. ED course: Spoke at length with patient and her daughter about the diagnosis of a tibial plateau fracture and how it is managed with a knee immobilizer and strict nonweightbearing. She and her daughter both feel safe with her going home. They will obtain a wheelchair today and have excellent health insurance and can obtain additional home health to assist patient with ADLs. She additionally has a lot of family members in town that can also assist her. She already has a follow-up appointment with orthopedics next week and a prescription for [place]. Will provide with disc images and knee immobilizer for follow-up appointment. 06/10 09:55 Order name: Knee Right Wo Cont; Complete Time: 10:37 EDMS 06/10 11:04 Order name: Knee Immobilizer; Complete Time: 11:44 sb4 Administered Medications: 10:22 Drug: Hydrocodone-Acetaminophen PO (7.5 mg-325 mg) 1 tabs Route: PO; iw 11:44 Follow up: Response: No adverse reaction; Pain is decreased nj1 10:22 Drug: Ondansetron PO 4 mg Route: PO; iw 11:44 Follow up: Response: No adverse reaction nj1 Disposition: 12:12 Co-signature as Attending Physician, Edgar Lopez MD I reviewed the patient's care rt provided by the Advanced Practice Provider and agree with the diagnosis and treatment plan. Disposition Summary: 06/10/23 11:05 Discharge Ordered Location: Home sb4 Problem: an ongoing problem sb4 Symptoms: have improved sb4 Condition: Stable sb4 Diagnosis - tibial plateau fracture, right sb4 Followup: sb4 - With: Tra Heath MD - When: 1 week - Reason: Recheck today's complaints, Re-evaluation by your physician Discharge Instructions: - Discharge Summary Sheet sb4 - How to Use a Knee Immobilizer, Roih-sy-Lsqu sb4 - Tibial Plateau Fracture Rehab sb4 Forms: - Medication Reconciliation Form sb4 - Thank You Letter sb4 - Antibiotic Education sb4 - Prescription Opioid Use sb4 - Patient Portal Instructions sb4 - Leadership Thank You Letter sb4 Signatures: Dispatcher [employer] Dinah Bonilla RN RN iw Brown, Sophia, PA-C PA-C sb4 Edgar Lopez MD MD rt Shabnam Cahdwick RN RN me1 Kateryna Barreto RN nj1 Corrections: (The following items were deleted from the chart) 09:47 09:44 PMHx: Hypothyroidism; me1 me1
[2023-06-10 11:57] VITALS: TEMP 98.4
[2023-06-10 11:58] VITALS: BP 151/79; O2SAT 100
== END 2023-06-10 11:53 | disposition home or self-care (01) ==
LOC: ER 09:23
DX: S82.141A Displaced bicondylar fracture of right tibia, initial encounter for closed fracture (principal); I10 Essential (primary) hypertension; Z79.82 Long term (current) use of aspirin; Z95.0 Presence of cardiac pacemaker; Z88.1 Allergy status to other antibiotic agents
CPT/HCPCS: 73700; Q0162

== ENCOUNTER 2023-07-09 07:46 | Emergency (ER) | payer OTHER ==
--- NOTE | 2023-07-09 09:26 | RAD REPORT ---
EXAM DESCRIPTION: RAD - Hand Right 2 View - 07/09/2023 9:01 am CLINICAL HISTORY: ANIMAL BITE COMPARISON: <Comparisons> FINDINGS: Advanced degenerative changes seen involving the first carpal/metacarpal joint. Moderate r adiocarpal arthritic changes also present. Soft tissue swelling is seen along the dorsum of the wrist . No subcutaneous gas or foreign body. No fracture suspected.
[2023-07-09] MEDS ORDERED: ONDANSETRON 4 MG (ODT) TAB ONE (09:29)
[2023-07-09] MEDS ORDERED: AMOX/K CLAV 875 MG TAB ONE (09:29)
[2023-07-09] MEDS ORDERED: HYDROCODONE/APAP 5/325 MG TAB ONE (09:29)
[2023-07-09] MEDS ORDERED: TDAP (DIPHTH,PERTUSS(ACELL),TET VAC) 0.5 ML VIAL IMVAC ONE (09:30)
--- NOTE | 2023-07-09 09:53 | ER ---
Nurse's Notes [facility] Name: Scarlett Garrett Age: 88 yrs Sex: Female : 1935 Arrival Date: 07/09/2023 Time: 07:46 Bed 17 Private MD: Diagnosis: Bitten by cat;Direct infection of right hand in infectious and parasitic diseases classified elsewhere;Local infection of the skin and subcutaneous tissue, unspecified Presentation: 07/09 08:11 Chief complaint: Patient states: Cat bite to L hand for 3 days, now red, swollen, ll1 tender. Coronavirus screen: Vaccine status: Patient reports receiving the 2nd dose of the covid vaccine. Client denies travel out of the [place] in the last 14 days. At this time, the client does not indicate any symptoms associated with coronavirus-19. Ebola Screen: Patient denies travel to an Ebola-affected area in the 21 days before illness onset. Initial Sepsis Screen: Does the patient meet any 2 criteria? No. Patient's initial sepsis screen is negative. Does the patient have a suspected source of infection? Yes: Skin breakdown/wound. Risk Assessment: Do you want to hurt yourself or someone else? Patient reports no desire to harm self or others. Onset of symptoms was July 07, 2023. 08:11 Method Of Arrival: Wheelchair ll1 08:11 Acuity: VANESA 3 ll1 Triage Assessment: 08:13 General: Appears uncomfortable, Behavior is calm, cooperative, appropriate for age. ll1 Pain: Complains of pain in left hand Pain currently is 8 out of 10 on a pain scale. Quality of pain is described as aching, throbbing. Derm: Redness, swelling L hand/wrist Reports pain. Musculoskeletal: Circulation, motion, and sensation intact. Capillary refill < 3 seconds. Historical: - Allergies: 08:05 Cipro; ph 08:05 Levaquin; ph - PMHx: 08:05 Hypertension; Hypothyroidism; mitral valve; severe tricuspid valve regurgitation; ph Atrial Fib; Arthritis; Depression; - PSHx: 08:05 Pacemaker placement; Valve replacement; ph Historical Immunization: - Administered Vaccines 10:00 Tetanus Toxoid,Adsorbed IM 0.5 ml ph Calender Wind Up Tender: [email or web address]; Exp: Sun Feb 05 2025; Lot #: [id number]; Series: 1 of 1; Patient Consent: Obtained; Date/Time: ; Source Name: Scarlett Garrett; Source Relationship: Self; Address Information: [address] [place] [address]; ; Education: Provided; VIS Presented Date: ; VIS Publication: Tetanus/Diphtheria (Td) Vaccine VIS 01/27/2017 (historic); Vaccine Funding Eligibility: Medicaid (may be called by state-specific name, e.g., [facility]) 09:43 Amoxicillin-Clavulanate PO 875 mg ph 09:28 HYDROcodone-acetaminophen PO 5 mg-325 mg 2 tabs ph 09:28 Ondansetron PO 4 mg ph - Immunization history:: Adult Immunizations up to date, Client reports receiving the 2nd dose of the Covid vaccine. - Social history:: Smoking status: Patient denies any tobacco usage or history of. - Family history:: not pertinent. Screenin:30 [facility] ED Fall Risk Assessment (Adult) History of falling in the last 3 months, ph including since admission No falls in past 3 months (0 pts) Confusion or Disorientation No (0 pts) Intoxicated or Sedated No (0 pts) Impaired Gait No (0 pts) Mobility Assist Device Used No (0 pt) Altered Elimination No (0 pt) Score/Fall Risk Level 0 - 2 = Low Risk Oriented to surroundings. Abuse screen: Denies threats or abuse. Denies injuries from another. Nutritional screening: No deficits noted. Tuberculosis screening: No symptoms or risk factors identified. Assessment: 09:00 General: Appears in no apparent distress. comfortable, well groomed, Behavior is calm, ph cooperative, appropriate for age. Pain: Complains of pain in left hand. Neuro: Level of Consciousness is awake, alert, obeys commands, Oriented to person, place, time, situation. Cardiovascular: Capillary refill < 3 seconds in bilateral fingers Patient's skin is warm and dry. Derm: Skin is pink, warm \T\ dry. Musculoskeletal: Swelling present in left hand. Vital Signs: 08:11 BP 138 / 64; Pulse 63; Resp 16; Temp 98.3; Pulse Ox 100% on R/A; Weight 65.32 kg; ll1 Height 5 ft. 9 in. ; Pain 8/10; 09:45 BP 118 / 68; Pulse 64; Resp 18; Temp 98.1; Pulse Ox 100% on R/A; ph 08:11 Body Mass Index 21.26 (65.32 kg, 175.26 cm) ll1 08:11 Pain Scale: Adult ll1 ED Course: 07:55 Patient arrived in ED. mg5 07:57 Olamide Salmeron MD is Attending Physician. cp3 07:59 Antionette Kaur RN is Primary Nurse. ph 08:05 Arm band placed on Patient placed in an exam room, on a stretcher. ph 08:13 Triage completed. ll1 09:00 Patient has correct armband on for positive identification. Bed in low position. Call ph light in reach. Side rails up X 1. Pulse ox on. NIBP on. 09:01 Hand Right 2 View XRAY In Process Unspecified. EDMS 10:58 No provider procedures requiring assistance completed. Patient did not have IV access ph during this emergency room visit. Administered Medications: 09:28 Drug: HYDROcodone-acetaminophen PO 5 mg-325 mg 2 tabs PO once Route: PO; ph 10:00 Follow up: Response: No adverse reaction ph 09:28 Drug: Ondansetron PO 4 mg PO once Route: PO; ph 10:00 Follow up: Response: No adverse reaction ph 09:43 Drug: Amoxicillin-Clavulanate PO 875 mg PO once Route: PO; ph 10:15 Follow up: Response: No adverse reaction ph 10:00 Drug: Tetanus Toxoid,Adsorbed IM 0.5 ml IM once; Provide Vaccine Information Statement ph (VIS). {Calender Wind Up Tender: [email or web address]; Exp: Sun Feb 05 2025; Lot #: [id number]; Series: 1 of 1; Patient Consent: Obtained; Date/Time: ; Source Name: Scarlett Garrett; Source Relationship: Self; Address Information: [address] [place] [address]; ; Education: Provided; VIS Presented Date: ; VIS Publication: Tetanus/Diphtheria (Td) Vaccine VIS 01/27/2017 (historic); Vaccine Funding Eligibility: Medicaid (may be called by state-specific name, e.g., [employer])} Route: IM; Site: right deltoid; 18:38 Follow up: Response: No adverse reaction ph Outcome: 09:52 Discharge ordered by . cp3 10:58 Patient left the ED. ph 10:58 Discharged to home with family, ph 10:58 Condition: good 10:58 Discharge instructions given to patient, family, Instructed on discharge instructions, follow up and referral plans. medication usage, Demonstrated understanding of instructions, follow-up care, medications, Prescriptions given X 4, Signatures: Dispatcher [employer] Olamide Coleman MD MD cp3 Antionette Kaur RN RN ph Kathya Duenas RN RN ll1 [employer] mg5 Corrections: (The following items were deleted from the chart) 09:45 09:28 Tetanus Toxoid,Adsorbed IM 0.5 ml IM in right deltoid ph ll1
--- NOTE | 2023-07-09 09:53 | EDPHYS ---
Physician Documentation [facility] Name: Scarlett Garrett Age: 88 yrs Sex: Female : 1935 Arrival Date: 07/09/2023 Time: 07:46 Bed 17 Private MD: ED Physician Olamide Salmeron HPI: 07/09 08:26 This 88 yrs old Female presents to ER via Wheelchair with complaints of Wound Infection cp3 - Hand. 08:26 The patient is an 88-year-old female who presents to the ED secondary to right hand cp3 pain and swelling after being bitten by her cat 3 days ago. The patient denies fever, chills, nausea, vomiting but endorses that her right hand is little bit more red and puffy and very tender than it was 3 days ago. Patient with normal mobility of hand able to open and close hand without difficulty. Historical: - Allergies: 08:05 Cipro; ph 08:05 Levaquin; ph - PMHx: 08:05 Hypertension; Hypothyroidism; mitral valve; severe tricuspid valve regurgitation; ph Atrial Fib; Arthritis; Depression; - PSHx: 08:05 Pacemaker placement; Valve replacement; ph - Immunization history:: Adult Immunizations up to date, Client reports receiving the 2nd dose of the Covid vaccine. - Social history:: Smoking status: Patient denies any tobacco usage or history of. - Family history:: not pertinent. ROS: 08:26 Constitutional: Negative for fever, chills, and weight loss, Eyes: Negative for injury, cp3 pain, redness, and discharge, ENT: Negative for injury, pain, and discharge, Neck: Negative for injury, pain, and swelling, Cardiovascular: Negative for chest pain, palpitations, and edema, Respiratory: Negative for shortness of breath, cough, wheezing, and pleuritic chest pain, Abdomen/GI: Negative for abdominal pain, nausea, vomiting, diarrhea, and constipation, Back: Negative for injury and pain, : Negative for injury, bleeding, discharge, and swelling, Neuro: Negative for headache, weakness, numbness, tingling, and seizure, Psych: Negative for depression, anxiety, suicide ideation, homicidal ideation, and hallucinations, Allergy/Immunology: Negative for hives, rash, and allergies, Endocrine: Negative for neck swelling, polydipsia, polyuria, polyphagia, and marked weight changes, Hematologic/Lymphatic: Negative for swollen nodes, abnormal bleeding, and unusual bruising, 08:26 MS/extremity: Positive for bite, pain, swelling, tenderness, warmth, Negative for decreased range of motion, deformity, 08:26 Skin: Exam: 08:26 Constitutional: This is a well developed, well nourished patient who is awake, alert, cp3 and in no acute distress. Chest/axilla: Normal chest wall appearance and motion. Nontender with no deformity. No lesions are appreciated. Cardiovascular: Regular rate and rhythm with a normal S1 and S2. No gallops, murmurs, or rubs. Normal PMI, no JVD. No pulse deficits. Respiratory: Lungs have equal breath sounds bilaterally, clear to auscultation and percussion. No rales, rhonchi or wheezes noted. No increased work of breathing, no retractions or nasal flaring. Abdomen/GI: Soft, non-tender, with normal bowel sounds. No distension or tympany. No guarding or rebound. No evidence of tenderness throughout. Back: No spinal tenderness. No costovertebral tenderness. Full range of motion. Neuro: Awake and alert, GCS 15, oriented to person, place, time, and situation. Cranial nerves II-XII grossly intact. Motor strength 5/5 in all extremities. Sensory grossly intact. Cerebellar exam normal. Normal gait. Psych: Awake, alert, with orientation to person, place and time. Behavior, mood, and affect are within normal limits. 08:26 Musculoskeletal/extremity: 08:26 Skin: Right hand with small puncture wound wound distal to the right thumb. Patient with mild soft tissue swelling to the hand and wrist no abscess or induration noted. Patient with normal range of motion, sensation, capillary refill of the right hand. Vital Signs: 08:11 BP 138 / 64; Pulse 63; Resp 16; Temp 98.3; Pulse Ox 100% on R/A; Weight 65.32 kg; ll1 Height 5 ft. 9 in. ; Pain 8/10; 09:45 BP 118 / 68; Pulse 64; Resp 18; Temp 98.1; Pulse Ox 100% on R/A; ph 08:11 Body Mass Index 21.26 (65.32 kg, 175.26 cm) ll1 08:11 Pain Scale: Adult ll1 MDM: 07:58 Patient medically screened. cp3 08:26 Differential diagnosis: Soft tissue infection, cat bite infection, cellulitis, foreign cp3 body. Data reviewed: vital signs, nurses notes. 09:58 Consideration of Admission/Observation Escalation of care including cp3 admission/observation considered. patient declined hospitalization. I considered the following discharge prescriptions or medication management in the emergency department Medications were administered in the Emergency Department. See MAR. Test considered but Not performed:. ED course: left hand xray interpreted by me- negative acute. 09:58 ED course: wound care discussed in detail. strict return precautions. cp3 07/09 08:38 Order name: Hand Right 2 View XRAY; Complete Time: :27 cp3 Administered Medications: 09:28 Drug: HYDROcodone-acetaminophen PO 5 mg-325 mg 2 tabs PO once Route: PO; ph 10:00 Follow up: Response: No adverse reaction ph 09:28 Drug: Ondansetron PO 4 mg PO once Route: PO; ph 10:00 Follow up: Response: No adverse reaction ph 09:43 Drug: Amoxicillin-Clavulanate PO 875 mg PO once Route: PO; ph 10:15 Follow up: Response: No adverse reaction ph 10:00 Drug: Tetanus Toxoid,Adsorbed IM 0.5 ml IM once; Provide Vaccine Information Statement ph (VIS). 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: [email or web address]; Exp: Sun Feb 05 2025; Lot #: [id number]; Series: 1 of 1; Patient Consent: Obtained; Date/Time: ; Source Name: Scarlett Garrett; Source Relationship: Self; Address Information: [address] [place] [address]; ; Education: Provided; VIS Presented Date: ; VIS Publication: Tetanus/Diphtheria (Td) Vaccine VIS 01/27/2017 (historic); Vaccine Funding Eligibility: Medicaid (may be called by state-specific name, e.g., [facility])} Route: IM; Site: right deltoid; 18:38 Follow up: Response: No adverse reaction ph Disposition Summary: 07/09/23 09:52 Discharge Ordered Notes: Location: Home cp3 Condition: Stable cp3 Diagnosis - Bitten by cat cp3 - Direct infection of right hand in infectious and parasitic diseases classified cp3 elsewhere - Local infection of the skin and subcutaneous tissue, unspecified cp3 Discharge Instructions: - Discharge Summary Sheet cp3 - Animal Bite, Adult, [id number] cp3 - Cellulitis, Adult cp3 Forms: - Medication Reconciliation Form cp3 - Thank You Letter cp3 - Antibiotic Education cp3 - Prescription Opioid Use cp3 - Patient Portal Instructions cp3 - Leadership Thank You Letter cp3 Prescriptions: - Hibiclens 4 % Topical liquid - apply 1 application TOPICAL route once as a single dose; 2 gram tube; Refills: cp3 0, Product Selection Permitted - Augmentin 875-125 mg Oral Tablet - take 1 tablet ORAL route every 12 hours for 10 days; 20 tablet; Refills: 0, cp3 Product Selection Permitted - Zofran 4 mg Oral Tablet - take 1 tablet ORAL route every 12 hours As needed; 20 tablet; Refills: 0, cp3 Product Selection Permitted - Hydrocodone-Acetaminophen 10-325 mg Oral Tablet - take 1 tablet ORAL route every 6 hours As needed; 12 tablet; Refills: 0, cp3 Product Selection Permitted Signatures: Dispatcher [employer] Olamide Coleman MD MD cp3 Antionette Kaur RN RN ph Kathya Duenas RN RN ll1
[2023-07-09 11:20] VITALS: BP 138/64; TEMP 98.3; O2SAT 100
== END 2023-07-09 10:58 | disposition home or self-care (01) ==
LOC: ER 07:46
DX: L08.9 Local infection of the skin and subcutaneous tissue, unspecified (principal); M01.X41 Direct infection of right hand in infectious and parasitic diseases classified elsewhere; W55.01XA Bitten by cat, initial encounter; Z23 Encounter for immunization; Z88.1 Allergy status to other antibiotic agents; Z95.0 Presence of cardiac pacemaker
CPT/HCPCS: 73120; 90471; 99284; Q0162

== ENCOUNTER 2023-07-10 14:13 | Inpatient (IN) | payer OTHER ==
--- OUTSIDE RECORDS SUMMARY | 2023-07-10 14:23 | XMS REPORT | Continuity of Care Document ---
:1935 Author Organization [facility] t Address [address] [place] [address] [place] [id number] Care Team Providers Name Role Phone Asked, None Given Primary Care Physician Unavailable GUS BRITO Attending Clinician Unavailable Haja Jennings Attending Clinician Unavailable Kamran NANCE, Emy Attending Clinician Unavailable Gus Brito MD Attending Clinician Yecenia BALBUENA, Warner Hobson Attending Clinician WARNER HEATON Attending Clinician Unavailable Sissy Plascencia MD Attending Clinician Raymond Jj DO Attending Clinician Anderson CHAMBERS, Tabitha Greenwood Attending Clinician James CHAMBERS, Angel Arce Attending Clinician [phone] Juan Burnham MD Attending Clinician Moody Gore RN Attending Clinician Unavailable HAMZAH FORMAN Attending Clinician Unavailable Dickson EMPLOYEE COMMUNICATIONS SPECIALIST, Hamzah Correia Attending Clinician [phone] Chace Nava Attending Clinician Unavailable MARCO IRENE Attending Clinician Unavailable MARCO IRENE Attending Clinician Unavailable Marco Irene MD Attending Clinician RONAN JOSHI Attending Clinician Unavailable IVAN HUTCHISON Attending Clinician Unavailable DANE FONSECA Attending Clinician Unavailable Lobo Sanchez Attending Clinician Unavailable GUS BRITO Admitting Clinician Unavailable Chace Nava Admitting Clinician Unavailable SISSY PLASCENCIA Admitting Clinician Unavailable Payers Payer Name Policy Type Policy Number Effective Date Expiration Date S ource UNITED MEDICARE HMO [id number] 2021 00:00:00 [facility] [id number] 2020 [facility] 00:00:00 PPO Problems Condition Condition Condition Status Onset Resolution [...] Hospit a 00 l Congestive Congestive Disease [facility]urre [facility] failure, failure, Medica l NYHA class NYHA class Ce nter III III Atrial Atrial Disease Recurre [facility] fibrillati fibrillati nce [facility] Thrombocyt Thrombocyt Disease Recurre [facility] openia openia coe [facility] HTN HTN Disease Active [facility] (hypertens (hypertens [facility] ion) ion) [facility] 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 adverse 00:00: Medical reaction 00 Center s Levoflox Propensi Active Rash [facility] acin [facility] to 04-09 [facility] adverse 00:00: Medical reaction 00 Luna s CIPROFLO Allergy Active Low Rash [facility] XACIN 04-09 00:00: 00 LEVOFLOX Allergy Active Low Rash [facility] ACIN 04-09 00:00: 00 ciproflo DA Active [place] [facility] xacin 14 Clear 00:00: [place] 00 [facility] CIPROFLO DRUG Active Rash 2019-10 Univers XACIN INGREDI 10-19 ity of 00:00: [place] [address] [place] [address] Branch Ciproflo Propensi Active Rash Method i [...] l s to drug levoflox DA Active [place] [facility] acin 5- [place] 00:00: [facility] 00 [facility] l levoflox DA Active [place] [facility] acin 03-07 Clear 00:00: [place] 00 [facility] Family History Family Member Diagnosis Comments Start Date Stop Date Source Natural mother Brain cancer [facility] Natural sister Stroke [facility] Natural father Heart attack [facility] Social History Social Habit Start Date Stop Date Quantity Comments Source Sexual orientation Method [facility] Gender identity Jainism [facility] History of Social 2022-12-24 2022-12-[address] function 00:00:00 00:00:00 Hospital Alcohol intake 2022-05-28 2022-05-28 [facility] (finding) Tobacco use and 2022-04-22 2022-04-[address] [facility] [address] [facility] k[facility] exposure 00:00:00 00:00:00 Medical Center Sex Assigned At [address] [address] [facility] 00:00:00 00:00:00 Medical Center Smoking Status Start Date Stop Date Source Never smoker [facility] Center Medications Ordered Filled Start [...] MG 10:39: mouth Medical tablet 23 nightly. Luna montelukast Yes 10mg QD Take [address] (SINGULAIR) 8-10 by mouth Luke s 10 mg 10:39: nightly. Medical tablet 23 Center VITAMINS A Yes QD Take by [facility] AND D ORAL 8-10 mouth [facility]ukes 10:39: daily . [address] cholecalcif Yes 5000U QD Take 5,[address] berta, 8-10 Units by Lukes vitamin D3, 10:39: mouth Medic al 50 mcg 23 daily . Luna (2,000 unit) Cap omega-3 Yes 2g Q.5D [...] 10:39: mouth Medical magnesium 23 daily . Luna Tab ZINC Yes 50mg QD Take [address] GLUCONATE 8-10 by mouth Lukes ORAL 10:39: daily . [address] cetirizine Yes 10mg QD Take 10 [...] MG 10:39: mouth Medical tablet 23 nightly. Luna montelukast Yes 10mg QD Take [address] (SINGULAIR) 8-10 by mouth Luke s 10 mg 10:39: nightly. Medical tablet 23 Center VITAMINS A Yes QD Take by [facility] AND D ORAL 8-10 mouth [facility]ukes 10:39: daily . Medical 23 Center cholecalcif Yes 5000U QD Take 5,[address] berta, 8-10 Units by [facility]ukes vitamin D3, 10:39: mouth Medic al 50 mcg 23 daily . Luna (2,000 unit) Cap omega-3 Yes 2g Q.5D [...] 10:39: mouth Medical magnesium 23 daily . Center Tab ZINC Yes 50mg QD Take [address] GLUCONATE 8-10 by mouth Lukes ORAL 10:39: daily . [address] cetirizine Yes 10mg QD Take 10 [...] MG 10:39: mouth Medical tablet 23 nightly. Luna montelukast Yes 10mg QD Take [address] (SINGULAIR) 8-10 by mouth Luke s 10 mg 10:39: nightly. Medical tablet 23 Center VITAMINS A Yes QD Take by [facility] AND D ORAL 8-10 mouth Lukes 10:39: daily . [address] cholecalcif Yes 5000U QD Take 5,[address] berta, 8-10 Units by Lukes vitamin D3, 10:39: mouth Medic al 50 mcg 23 daily . Luna (2,000 unit) Cap omega-3 Yes 2g Q.5D [...] 10:39: mouth Medical magnesium 23 daily . Center Tab ZINC Yes 50mg QD Take [address] GLUCONATE 8-10 by mouth Lukes ORAL 10:39: daily . Medical 23 Center cetirizine Yes 10mg QD Take 10 mg [...] tablet 23 (two) Center times daily. amLODIPine Yes 5mg QD Take 1 [facility] (NORVASC) 5 7-20 tablet (5 Shelbie es MG tablet 00:00: mg total) Med ical 00 by mouth Center daily. aspirin 81 0 Yes 81mg QD Take 1 [facility]I S [...] ical 00 by mouth Center daily. DILTIAZEM 2022-0 202- No 30mg Q.[id number] Take [address] HCL ORAL 7-19 07-19 [id number] by mouth 3 [facility]ukes 10:39: 00:00 3D (three) Medical 12 :00 times Center daily . TURMERIC 2022-0 2022- No 4000mg QD Take 4,[address] ORAL 7-19 07-19 mg by Lukes 10:39: 00:00 mouth Medical 12 :00 daily . Center DILTIAZEM 2-0 2022- No 30mg Q.[id number] Take [address] HCL ORAL 7-19 07-19 [id number] by mouth 3 [facility]ukes 10:39: 00:00 3D (three) Medical 12 :00 times Center daily . TURMERIC 0 2021- No 4000mg QD Take 4,[address] ORAL 7-19 07-19 mg by Lukes 10:39: 00:00 mouth Medical 12 :00 daily . Center metoprolol 2021-0 Yes 50mg Q.[id number] Take [address] tartrate 7-19 [id number] tablet (50 [facility]ukes (LOPRESSOR) 00:00: 3D mg total) M edical 50 MG 00 by mouth 3 Center tablet (three) times daily. metoprolol 0 Yes 50mg Q.[id number] Take [address] tartrate 7-19 [id number] tablet (50 [facility] (LOPRESSOR) 00:00: 3D mg total) M edical 50 MG 00 by mouth 3 Center tablet (three) times daily. metoprolol 0 Yes 50mg Q.[id number] Take [address] tartrate 7-19 [id number] tablet (50 [facility] (LOPRESSOR) 00:00: 3D mg total) M edical 50 MG 00 by mouth 3 Center tablet (three) times daily. metoprolol 2020-0 Yes 25mg Q.5D Take 25 [...] 14:41: mouth Hospita tablet 00 nightly. l metoprolol 2020-0 Yes 25mg Q.5D Take 25 mg M ethodi tartrate 8-[address] (LOPRESSOR) 14:41: (two) Hospi ta 25 MG 00 times a l tablet day. lidocaine 2020-0 Yes 1{patch Q24H Place 1 [...] 12 hours or as directed by estradiol 0 Yes 2g QD Insert 2 g Me thodi (ESTRACE) 6-[address] 0.01 % (0.1 12:11: vagina Hosp felisha mg/gram) 15 daily. l vaginal cream nitrofurant 0 Yes 50mg QD Take 50 mg Methodi oin 6-[address] (MACRODANTI 12:11: daily. Hosp felisha N) 50 MG 15 l capsule estradiol Yes 2g QD Insert 2 g [...] mg/gram) 15 daily. l vaginal cream nitrofurant 0 Yes 50mg QD Take 50 mg Methodi oin 6-[address] (MACRODANTI 12:11: daily. Hosp felisha N) 50 MG 15 l capsule metoprolol Yes 25mg Q.5D Take 25 mg M ethodi tartrate 6- by mouth 2 st (LOPRESSOR) 12:11: (two) Hospi ta 25 MG 15 times a l tablet day. escitalopra Yes 10mg QD Take 10 mg Methodi m (LEXAPRO) 6-[address] 10 MG 12:11: daily. Hospita tablet 15 l traZODone 2015-0 Yes 100mg QD Take 100 Met hodi [...] mouth Hospita tablet 15 nightly. l lidocaine 2015- Yes 1{patch Q24H Place 1 Me thodi (LIDODERM) 6-01 } patch on st 5 % 12:11: the skin Hospita 15 daily. l Remove & Discard patch within 12 hours or as directed by estradiol Yes 2g QD Insert 2 g Me thodi (ESTRACE) 6-[address] 0.01 % (0.1 12:11: vagina Hosp felisha mg/gram) 15 daily. l vaginal cream nitrofurant 0 Yes 50mg QD Take 50 mg Methodi oin 6-[address] (MACRODANTI 12:11: daily. Hosp felisha N) 50 MG 15 l capsule metoprolol 0 Yes 25mg Q.5D Take 25 mg M [...] mouth Hospita tablet 15 nightly. l lidocaine 2015- Yes 1{patch Q24H Place 1 Me thodi (LIDODERM) 6-01 } patch on st 5 % 12:11: the skin Hospita 15 daily. l Remove & Discard patch within 12 hours or as directed by celecoxib Yes Methodi (CeleBREX) 5-18 st 200 [...] l 10-325 mg per tablet Immunizations Ordered Filled Immunization Date Status Comments [facility] e Immunization Name Name [facility] ARELISID-19 2020-11-24 Completed Jainism MRNA VACCINATION 00:00:00 [facility] HEAVEN COVID-19 2020-11-24 Completed Jainism MRNA VACCINATION 00:00:00 [facility] PFIZER COVID-19 2020-11-24 Completed Jainism MRNA VACCINATION 00:00:00 [facility] PFIZER COVID-19 2020-11-24 Completed Jainism MRNA VACCINATION 00:00:00 [facility] PFIZER COVID-19 2020-11-03 Completed Jainism MRNA VACCINATION 00:00:00 [facility] PFIZER COVID-19 2020-11-03 Completed Jainism MRNA VACCINATION 00:00:00 [facility] PFIZER COVID-19 2020-11-03 Completed Jainism MRNA VACCINATION 00:00:00 [facility] PFIZER COVID-19 2020-11-03 Completed Jainism [facility] J[facility] VACCINATION Hospital Vital Signs Vital Name Observation Time [...] kg Systolic blood 2022-05-28 10:36:00 136 mm[Hg] [facility] Diastolic blood 2022-05-28 10:36:00 79 mm[Hg] [facility] Heart rate 2022-05-28 10:36:00 89 /min [facility] Body height 2022-05-28 10:36:00 175.3 cm [facility] Body weight 2022-05-28 10:36:00 66.679 kg [facility] BMI 2022-05-28 10:36:00 21.71 kg/m2 [facility] Oxygen saturation in 2022-05-28 10:36:00 98 /min [facility] Arterial blood by Medical Ce nter Pulse oximetry Body temperature 2022-05-06 08:00:00 36.39 Deanna [facility] Respiratory rate 2022-05-06 08:00:00 19 /min [facility] Procedures Procedure Date / Time Performing Clinician Source Performed POCT-GLUCOSE METER 2022-05-06 07:45:00 Gus Brito [facility] BASIC METABOLIC PANEL 2022-05-06 05:58:00 Lux Campbell [facility] MAGNESIUM 2022-05-06 05:58:00 Lux Campbell Aaron [facility] CBC (HEMOGRAM ONLY) 2022-05-06 05:58:00 Lux Campbell Aaron [facility] XR CHEST 1 VIEW PORTABLE / 2022-05-06 05:18:00 Daniella Alonso [facility] POCT-GLUCOSE METER 2022-05-05 21:22:00 Brito, Gus Mason [facility] POCT-GLUCOSE METER 2022-05-05 16:48:00 Brito, Gus Mason [facility] POCT-GLUCOSE METER 2022-05-05 11:39:00 Brito, Gus Mason [facility] XR CHEST 1 VIEW PORTABLE / 2022-05-05 09:01:00 Tonia-Smart, Sonya [facility] POCT-GLUCOSE METER 2022-05-05 07:16:00 Brito, Gus Mason [facility] BASIC METABOLIC PANEL 2022-05-05 03:55:00 Lux Campbell [facility] MAGNESIUM 2022-05-05 03:55:00 Lux Campbell Aaron [facility] CBC (HEMOGRAM ONLY) 2022-05-05 03:55:00 Lux Campbell [facility] POCT-GLUCOSE METER 2022-05-04 21:37:00 Brito, Gus Mason [facility] POCT-GLUCOSE METER 2022-05-04 17:32:00 Briot, Gus Mason [facility] XR CHEST 1 VIEW PORTABLE / 2022-05-04 14:20:00 Alfie Gonsalves [facility] POCT-GLUCOSE METER 2022-05-04 12:15:00 Brito, Gus Mason [facility] POCT-GLUCOSE METER 2022-05-04 08:44:00 Brito, Gus Mason [facility] XR CHEST 1 VIEW PORTABLE / 2022-05-04 06:41:00 Tonia-Smart, Sonya [facility] BASIC METABOLIC PANEL 2022-05-04 03:42:00 Lux Campbell [facility] MAGNESIUM 2022-05-04 03:42:00 Lux Campbell Aaron [facility] CBC (HEMOGRAM ONLY) 2022-05-04 03:42:00 Lux Campbell [facility] POCT-GLUCOSE METER 2022-05-03 21:24:00 Brito, Gus Mason [facility] POCT-GLUCOSE METER 2022-05-03 17:03:00 Tiffany Gus Mason [facility] XR CHEST 1 VIEW PORTABLE / 2022-05-03 12:56:00 Tonia-Smart, Sonya [facility] POCT-GLUCOSE METER 2022-05-03 11:29:00 Brito, Gus Mason [facility] POCT-GLUCOSE METER 2022-05-03 07:19:00 Brito, Gus Marlon [facility] BASIC METABOLIC PANEL 2022-05-03 05:18:00 Lux Campbell [facility] MAGNESIUM 2022-05-03 05:18:00 Lux Campbell Aaron [facility] CBC (HEMOGRAM ONLY) 2022-05-03 05:18:00 Lux Campbell [facility] POCT-GLUCOSE METER 2022-05-02 21:05:00 Tiffany Gus Marlon [facility] POCT-GLUCOSE METER 2022-05-02 16:39:00 Gus Brito [facility] XR CHEST 1 VIEW PORTABLE / 2022-05-02 13:32:00 Tonia-[facility], [facility] POCT-GLUCOSE METER 2022-05-02 12:17:00 Gus Brito Marlon [facility] 2D ECHO W/ DOPPLER 2022-05-02 12:16:[address] [facility] (CW/PW/COLOR) [facility] 2D ECHO W/ DOPPLER 2022-05-02 10:26:33 [facility], [facility] (CW/PW/COLOR) [facility] POCT-GLUCOSE METER 2022-05-02 07:14:00 Gus Brito [facility] XR CHEST 1 VIEW PORTABLE / 2022-05-02 06:43:00 Cldye Mix [facility] BASIC METABOLIC PANEL 2022-05-02 04:44:00 Lux Campbell [facility] MAGNESIUM 2022-05-02 04:44:00 Lux Campbell [facility] CBC (HEMOGRAM ONLY) 2022-05-02 04:44:00 Lux Campbell [facility] POCT-GLUCOSE METER 2022-05-01 21:14:00 BritoGus bruce [facility] POCT-GLUCOSE METER 2022-05-01 17:23:00 BritoGus bruce [facility] POCT-GLUCOSE METER 2022-05-01 11:24:00 BritoGus bruce [facility] XR CHEST 1 VIEW PORTABLE / 2022-05-01 09:01:00 Mraia Dolores Johnson [facility] POCT-GLUCOSE METER 2022-05-01 07:39:00 Gus Brito [facility] XR CHEST 1 VIEW PORTABLE / 2022-05-01 06:46:00 Clyde Mix [facility] BASIC METABOLIC PANEL 2022-05-01 04:27:00 Lux Campbell [facility] MAGNESIUM 2022-05-01 04:27:00 Lux Campbell [facility] CBC (HEMOGRAM ONLY) 2022-05-01 04:27:00 Lux Campbell [facility] POCT-GLUCOSE METER 2022-04-30 21:16:00 Gus Brito [facility] POCT-GLUCOSE METER 2022-04-30 17:14:00 Gus Brito [facility] POCT-GLUCOSE METER 2022-04-30 11:56:00 Raymond Jj [facility] POCT-GLUCOSE METER 2022-04-30 07:25:00 Raymond Jj [facility] XR CHEST 1 VIEW PORTABLE / 2022-04-30 07:07:00 Clyde Mix [facility] POCT-GLUCOSE METER 2022-04-29 21:20:00 Raymond Jj [facility] POCT-GLUCOSE METER 2022-04-29 16:15:00 Raymond Jj [facility] POCT-GLUCOSE METER 2022-04-29 10:59:00 Анна Located within [facility] XR CHEST 1 VIEW PORTABLE / 2022-04-29 10:50:00 Heide Gaytan [facility] XR CHEST 1 VIEW PORTABLE / 2022-04-29 09:20:00 Shravan Joseph [facility] POCT-GLUCOSE METER 2022-04-29 06:59:00 Анна Located within [facility] CBC W/PLT COUNT & AUTO 2022-04-29 03:48:00 Corbin [facility] BASIC METABOLIC PANEL 2022-04-29 03:48:00 Corbin [facility] MAGNESIUM 2022-04-29 03:48:00 Corbin [facility] PHOSPHORUS 2022-04-29 03:48:00 Corbin [facility] CALCIUM, IONIZED 2022-04-29 03:48:00 Odilia Alaniz [facility] S [facility] CBC W/PLT COUNT & AUTO 2022-04-29 03:48:00 Corbin [facility] (CELLAVISION MANUAL DIFF) 2022-04-29 03:48:00 Odilia Alaniz [facility] POCT-GLUCOSE METER 2022-04-29 01:31:00 Анна Located within [facility] XR CHEST 1 VIEW PORTABLE / 2022-04-29 01:09:[address] [facility] POCT-GLUCOSE METER 2022-04-28 16:23:[facility]SE [facility]ER 2022-04-28 11:48:00 [facility] XR CHEST 1 VIEW PORTABLE / 2022-04-28 11:10:00 Arnulfo Duarte [facility] CBC W/PLT COUNT & AUTO 2022-04-28 03:28:00 Account Service Representative, Odilia [facility] BASIC METABOLIC PANEL 2022-04-28 03:28:00 Corbin [facility] MAGNESIUM 2022-04-28 03:28:00 Odilia Alaniz [facility] PHOSPHORUS 2022-04-28 03:28:00 Corbin [facility] CALCIUM, IONIZED 2022-04-28 03:28:00 Corbin [facility] CBC W/PLT COUNT & AUTO 2022-04-28 03:28:00 Corbin [facility] (CELLAVISION MANUAL DIFF) 2022-04-28 03:28:00 Odilia Alaniz denilson [facility] XR CHEST 1 VIEW PORTABLE / 2022-04-28 01:00:[address] [facility] POCT-GLUCOSE METER 2022-04-28 00:07:00 Temo [facility] PREPARE RBC 2022-04-27 23:54:00 Gus Brito [facility] POCT-GLUCOSE METER 2022-04-27 17:57:00 [facility] POCT-GLUCOSE METER 2022-04-27 11:02:00 [facility] XR CHEST 1 VIEW PORTABLE / 2022-04-27 07:52:[address] [facility] POCT-GLUCOSE METER 2022-04-27 07:37:00 Temo [facility] BLOOD GAS, ARTERIAL 2022-04-27 05:42:00 Corbin [facility] OXYGEN SATURATION, 2022-04-27 05:42:00 Corbin [facility] CBC W/PLT COUNT & AUTO 2022-04-27 05:41:00 Corbin [facility] BASIC METABOLIC PANEL 2022-04-27 05:41:00 Corbin [facility] MAGNESIUM 2022-04-27 05:41:00 Odilia Alaniz [facility] PHOSPHORUS 2022-04-27 05:41:00 Odilia Alaniz [facility] CALCIUM, IONIZED 2022-04-27 05:41:00 Odilia Alaniz [facility] S [facility] CBC W/PLT COUNT & AUTO 2022-04-27 05:41:00 Corbin [facility] (CELLAVISION MANUAL DIFF) 2022-04-27 05:41:00 Odilia Alaniz [facility] POCT-GLUCOSE METER 2022-04-27 00:23:00 Sissy Plascencia [facility] PREPARE LEUKO-REDUCED RBC 2022-04-26 23:54:00 Jayce Mauricio [facility] XR CHEST 1 VIEW PORTABLE / 2022-04-26 20:34:00 Mikie Mauricio [facility] HEMOGLOBIN AND HEMATOCRIT 2022-04-26 20:28:00 Odilia Alaniz [facility] POCT-GLUCOSE METER 2022-04-26 17:25:00 Temo [facility] PREPARE PLASMA 2022-04-26 11:43:00 Gus Brito [facility] XR CHEST 1 VIEW PORTABLE / 2022-04-26 11:41:00 Odilia Alaniz [facility] OXYGEN SATURATION, 2022-04-26 11:24:00 Corbin [facility] BLOOD GAS, ARTERIAL 2022-04-26 11:06:00 Odilia Alaniz [facility] CBC (HEMOGRAM ONLY) 2022-04-26 10:52:[address] [facility] BASIC METABOLIC PANEL 2022-04-26 10:52:00 Odilia Alaniz [facility] MAGNESIUM 2022-04-26 10:52:00 Corbin [facility] PHOSPHORUS 2022-04-26 10:52:00 Account Service Representative, [facility] CALCIUM, IONIZED 2022-04-26 10:52:00 Corbin [facility] LACTIC ACID, ARTERIAL 2022-04-26 10:52:00 Corbin [facility] PT/APTT 2022-04-26 10:52:00 Corbin [facility] FIBRINOGEN 2022-04-26 10:52:00 Corbin [facility] TRANSFUSE LEUKO-REDUCED 2022-04-26 09:34:00 Jayce Mauricio [facility] RED BLOOD CELLS [facility] RRL CRITICAL LABS 2022-04-26 09:12:15 Tabitha Barron [facility] (ABG,NA,K,H&H,GLUCOSE) Medical C enter CALCIUM, IONIZED 2022-04-26 09:12:15 Tabitha Barron [facility] BLOOD GAS, ARTERIAL 2022-04-26 09:12:15 Tabitha Barron [facility] SODIUM NA-STAT LAB 2022-04-26 09:12:15 Tabitha Barron [facility] POTASSIUM-STAT LAB 2022-04-26 09:12:15 Tabitha Barron [facility] GLUCOSE-STAT LAB 2022-04-26 09:12:15 Tabitha Barron [facility] HGB/HCT (H&H) - STAT LAB 2022-04-26 09:12:15 Tabitha Barron [facility] THORACOTOMY 2022-04-26 08:27:00 Gus Brito [facility] POCT-GLUCOSE METER 2022-04-26 05:49:00 Sissy Plascencia [facility] BASIC METABOLIC PANEL 2022-04-26 02:04:00 Arnulfo Duarte [facility] MAGNESIUM 2022-04-26 02:04:00 Arnulfo Duarte [facility] PHOSPHORUS 2022-04-26 02:04:00 [facility]HE[facility] 2022-04-26 02:04[facility]00 [facility] CALCIUM, IONIZED 2022-04-26 02:04:00 Clyde Mix [facility] XR CHEST 1 VIEW PORTABLE / 2022-04-26 01:47:00 Odilia Alaniz [facility] PREPARE RBC 2022-04-25 23:54:00 Gus Brito [facility] PREPARE PLATELETS 2022-04-25 23:54:00 Gus Brito [facility] PREPARE CRYOPRECIPITATE 2022-04-25 23:54:00 Gus Brito [facility] POCT-GLUCOSE METER 2022-04-25 23:50:00 Temo [facility] BASIC METABOLIC PANEL 2022-04-25 18:27:00 [facility], ARTERIAL 2022-04-25 18:27:00 [facility] OXYGEN SATURATION, 2022-04-25 18:27:00 [facility] HEMOGLOBIN AND HEMATOCRIT 2022-04-25 18:27:00 [facility] POCT-GLUCOSE METER 2022-04-25 16:29:00 Temo [facility] POCT-GLUCOSE METER 2022-04-25 13:09:00 Temo [facility] CBC (HEMOGRAM ONLY) 2022-04-25 13:07:00 Odilia Alaniz [facility] PT/APTT 2022-04-25 13:07:00 Odilia Alaniz [facility] FIBRINOGEN 2022-04-25 13:07:00 Odilia Alaniz [facility] CT CHEST WITHOUT IV 2022-04-25 10:14:00 Odilia Alaniz I [facility] CBC (HEMOGRAM ONLY) 2022-04-25 09:33:00 Odilia Alaniz [facility] POCT-GLUCOSE METER 2022-04-25 08:07:00 Temo [facility] HEMATOCRIT-STAT LAB 2022-04-25 06:42:00 Gerald [facility] POCT-GLUCOSE METER 2022-04-25 05:58:00 Temo [facility] XR CHEST 1 VIEW PORTABLE / 2022-04-25 05:37:00 Jayce Mauricio [facility] [place] INSERT 2022-04-25 05:10:52 Sloane, Tanwie Polycarp [facility] CATH,ART,PERCUT,SHORTTERM [facility] LACTIC ACID, VENOUS 2022-04-25 04:24:00 Jayce Mauricio [facility] BLOOD GAS, VENOUS 2022-04-25 04:24:00 Jayce Mauricio [facility] PROTHROMBIN TIME/INR 2022-04-25 03:48:00 Jayec Mauricio [facility] APTT 2022-04-25 03:48:00 Jayce Mauricio [facility] FIBRINOGEN 2022-04-25 03:48:00 Jayce Mauricio [facility] BASIC METABOLIC PANEL 2022-04-25 03:06:00 [facility] 2001avinash Prasad [facility] MAGNESIUM 2022-04-25 03:06:00 [facility] 2001avinash [facility] PHOSPHORUS 2022-04-25 03:06:00 Gerald [facility] CBC (HEMOGRAM ONLY) 2022-04-25 03:06:00 Gerald [facility] CALCIUM, IONIZED 2022-04-25 03:06:00 Clyde Mix [facility] HEPATIC FUNCTION PANEL 2022-04-25 03:06:00 Jayce Mauricio [facility] POCT-GLUCOSE METER 2022-04-25 02:11:00 Temo [facility] XR CHEST 1 VIEW PORTABLE / 2022-04-25 01:42:[address] [facility] POCT-GLUCOSE METER 2022-04-24 23:52:00 Sissy Plascencia [facility] ECG 12-LEAD 2022-04-24 21:44:11 Unknown, Hl7 [facility] ECG 12-LEAD 2022-04-24 21:44:11 Unknown, Hl7 [facility] RRL CRITICAL LABS 2022-04-24 21:16:00 Odilia Alaniz [facility] (ABG,NA,K,H&H,GLUCOSE) Medical C enter BLOOD GAS, ARTERIAL 2022-04-24 21:16:00 Le, [facility] SODIUM NA-STAT LAB 2022-04-24 21:16:00 [facility] POTASSIUM-STAT LAB 2022-04-24 21:16[facility]00 [facility] 2022-04-24 21:[facility]00 [facility] ([facility]&H) - STAT LAB 2022-04-24 21:16:00 [facility] CALCIUM, IONIZED 2022-04-24 19:59:00 [facility] LACTIC ACID, ARTERIAL 2022-04-24 19:59:00 [facility] RRL CRITICAL LABS 2022-04-24 19:59:00 Odilia Alaniz [facility] (ABG,NA,K,H&H,GLUCOSE) Medical C enter BLOOD GAS, ARTERIAL 2022-04-24 19:59:00 Le, [facility] SODIUM NA-STAT LAB 2022-04-24 19:59:00 [facility] POTASSIUM-STAT LAB 2022-04-24 19:59:00 [facility] GLUCOSE-STAT LAB 2022-04-24 19:59:00 [facility] ([facility]&H) - STAT LAB 2022-04-24 19:59:00 Arnol Fountain [facility] BASIC METABOLIC PANEL 2022-04-24 19:52:00 Dominguez, Clyde Powell CH I [facility] MAGNESIUM 2022-04-24 19:52:00 , [facility] W/PLT COUNT & AUTO 2022-04-24 18:05:00 [facility] 2001avinash [facility] RRL CRITICAL LABS 2022-04-24 18:05:00 [facility], [facility] (ABG,NA,K,H&H,GLUCOSE) Medical C enter BLOOD GAS, ARTERIAL 2022-04-24 18:05:00 [facility] SODIUM NA-STAT LAB 2022-04-24 18:05:00 [facility] POTASSIUM-STAT LAB 2022-04-24 18:05:00 [facility], [facility] GLUCOSE-STAT LAB 2022-04-24 18:05:00 [facility], [facility] HGB/HCT (H&H) - STAT LAB 2022-04-24 18:05:00 [facility] CBC W/PLT COUNT & AUTO 2022-04-24 18:05:00 Arnulfo Duarte [facility] (CELLAVISION MANUAL DIFF) 2022-04-24 18:05:00 Arnulfo Duarte [facility] XR CHEST 1 VIEW PORTABLE / 2022-04-24 15:54:00 [facility] PROTHROMBIN TIME/INR 2022-04-24 15:47:00 [facility] APTT 2022-04-24 15:47:00 [facility], [facility] FIBRINOGEN 2022-04-24 15:47:00 [facility], [facility] OXYGEN SATURATION, 2022-04-24 15:47:00 [facility] LACT[facility]ID, ARTERIAL 2022-04-24 15:47:00 [facility] CALCIUM, IONIZED 2022-04-24 15:46:00 [facility] CBC (HEMOGRAM ONLY) 2022-04-24 15:46:00 [facility] BASIC METABOLIC PANEL 2022-04-24 15:46:00 Gerald, [facility] C HI [facility] BLOOD GAS, ARTERIAL 2022-04-24 15:46:00 Gerald, [facility] MAGNESIUM 2022-04-24 15:46:00 Gerald [facility] PHOSPHORUS 2022-04-24 15:46:00 [facility] ANESTHESIA PERIPHERAL 2022-04-24 14:49:[address] [facility] TRANSFUSE CRYOPRECIPITATE 2022-04-24 13:50:00 James [facility] RRL CRITICAL LABS 2022-04-24 13:47:20 [facility]sumit [facility] (ABG,NA,K,H&H,GLUCOSE) [facility] enter CALCIUM, IONIZED 2022-04-24 13:47:[address] [facility] PROTHROMBIN TIME/INR 2022-04-24 13:47:20 James [facility] APTT 2022-04-24 13:47:20 James [facility] FIBRINOGEN 2022-04-24 13:47:20 James [facility] PLATELET COUNT 2022-04-24 13:47:20 James [facility] BLOOD GAS, ARTERIAL 2022-04-24 13:47:20 James [facility] SODIUM NA-STAT LAB 2022-04-24 13:47:20 James [facility] POTASSIUM-STAT LAB 2022-04-24 13:47:20 James [facility] GLUCOSE-STAT LAB 2022-04-24 13:47:[address] [facility] HGB/HCT (H&H) - STAT LAB 2022-04-24 13:47:20 Angel Ramirez [facility] POCT-ACT 2022-04-24 13:35:00 [facility] PROTHROMBIN TIME/INR 2022-04-24 13:31:25 James [facility] FIBRINOGEN 2022-04-24 13:31:25 James [facility] POCT-ACT 2022-04-24 13:03:00 Temo [facility] RRL CRITICAL LABS 2022-04-24 13:02:09 James [facility] (ABG,NA,K,H&H,GLUCOSE) [facility] enter CALCIUM, IONIZED 2022-04-24 13:02:09 [facility] PROT[facility]OMBIN TIME/INR 2022-04-24 13:02:09 James [facility] APTT 2022-04-24 13:02:09 James [facility] FIBRINOGEN 2022-04-24 13:02:09 [facility] BLOOD [facility], ARTERIAL 2022-04-24 13:02:09 James [facility] SODIUM NA-STAT LAB 2022-04-24 13:02:09 James [facility] POTASSIUM-STAT LAB 2022-04-24 13:02:[facility] 2022-04-24 13:02:09 Angel Ramirez [facility] HGB/HCT (H&H) - STAT LAB 2022-04-24 13:02:09 Angel Ramirez HI [facility] TRANSFUSE LEUKO-REDUCED 2022-04-24 12:50:00 Angel Ramirez CH I [facility] POCT-ACT 2022-04-24 12:02:00 Temo [facility] RRL CRITICAL LABS 2022-04-24 11:59:47 Odilia Alaniz [facility] (ABG,NA,K,H&H,GLUCOSE) Medical C enter BLOOD GAS, ARTERIAL 2022-04-24 11:59:47 [facility] NA-[facility] 2022-04-24 11:59:47 [facility] 2022-04-24 11:59:47 [facility] GLU[facility]SE-STAT LAB 2022-04-24 11:59:47 [facility]/H[facility] (H&H) - STAT LAB 2022-04-24 11:59:47 [facility] POCT-ACT 2022-04-24 11:32:00 Temo [facility] RRL CRITICAL LABS 2022-04-24 11:29:33 Odilia Alaniz [facility] (ABG,NA,K,H&H,GLUCOSE) Medical C enter BLOOD GAS, ARTERIAL 2022-04-24 11:29:33 Essie [facility] SODIUM NA-STAT LAB 2022-04-24 11:29:33 [facility] POT[facility]SIUM-STAT LAB 2022-04-24 11:29:33 [facility] GLUCOSE-STAT LAB 2022-04-24 11:29:33 [facility]GB/HCT (H&H) - STAT LAB 2022-04-24 11:29:33 [facility] MISCELLANEOUS LAB ORDER 2022-04-24 11:23:11 Angel Ramirez [facility] PLATELET COUNT 2022-04-24 11:23:11 Angel [facility] RRL CRITICAL LABS 2022-04-24 11:00:10 Odilia Alaniz [facility] (ABG,NA,K,H&H,GLUCOSE) Medical C enter BLOOD GAS, ARTERIAL 2022-04-24 11:00:10 [facility] SODIUM NA-STAT LAB 2022-04-24 11:00:10 [facility] POTASSIUM-STAT LAB 2022-04-24 11:00:10 [facility] GLUCOSE-STAT LAB 2022-04-24 11:00:10 [facility] HGB/HCT (H&H) - STAT LAB 2022-04-24 11:00:[address] [facility] TRANSFUSE LEUKO-REDUCED 2022-04-24 11:00:00 James [facility]sumit [facility] RED BLOOD CELLS [facility] POCT-ACT 2022-04-24 10:52:00 Sissy Plascencia [facility] RRL CRITICAL LABS 2022-04-24 10:50:28 Odilia Alaniz [facility] (ABG,NA,K,H&H,GLUCOSE) Medical C enter BLOOD GAS, ARTERIAL 2022-04-24 10:50:28 Essie [facility] SODIUM NA-STAT LAB 2022-04-24 10:50:28 [facility] POTASSIUM-STAT LAB 2022-04-24 10:50:28 [facility] GLUCOSE-STAT LAB 2022-04-24 10:50:28 [facility] HGB/HCT (H&H) - STAT LAB 2022-04-24 10:50:28 [facility] ANESTHESIA LARS 2022-04-24 10:43:26 Radha Becerril [facility] POCT-ACT 2022-04-24 10:23:00 Temo [facility] RRL CRITICAL LABS 2022-04-24 10:22:17 Odilia Alaniz [facility] (ABG,NA,K,H&H,GLUCOSE) [facility] C enter BLOOD GAS, ARTERIAL 2022-04-24 10:22:17 [facility] SODIUM NA-STAT LAB 2022-04-24 10:22:17 Le, [facility] POTASSIUM-STAT LAB 2022-04-24 10:22:17 Le, [facility] GLUCOSE-STAT LAB 2022-04-24 10:22:17 [facility] HGB/HCT (H&H) - STAT LAB 2022-04-24 10:22:17 [facility] POCT-ACT 2022-04-24 09:25:00 Temo [facility] TRANSFUSE LEUKO-REDUCED 2022-04-24 08:34:00 Jayce Mauricio [facility] RED BLOOD CELLS [facility] RRL CRITICAL LABS 2022-04-24 08:01:56 James [facility]sumit [facility] (ABG,NA,K,H&H,GLUCOSE) [facility] enter CALCIUM, IONIZED 2022-04-24 08:01:[address] [facility] BLOOD GAS, ARTERIAL 2022-04-24 08:01:56 James [facility] SODIUM NA-STAT LAB 2022-04-24 08:01:56 James [facility] POTASSIUM-STAT LAB 2022-04-24 08:01:56 James [facility]sumit [facility] GLUCOSE-STAT LAB 2022-04-24 08:01:[address] [facility] HGB/HCT (H&H) - STAT LAB 2022-04-24 08:01:56 Angel Ramirez [facility] REPAIR, MITRAL VALVE 2022-04-24 07:14:00 Brito, Gus Mason [facility] REPAIR, TRICUSPID VALVE 2022-04-24 07:14:00 Brito, Gus Mason [facility] ABLATION,RADIOFREQUENCY 2022-04-24 07:14:00 Brito, Gus Mason [facility] CARDIAC-THORASCOPIC/ Medical Kia ter LAPAROSCOPIC APPROACH THORACOTOMY 2022-04-24 07:14:00 Brito, Gus Mason [facility] MAZE PROCEDURE, USING 2022-04-24 07:14:00 Brito, Gus Mason [facility] RADIOFREQUENCY ABLATION [facility] ECHOCARDIOGRAM, 3D, 2022-04-24 07:14:00 Brito, Gus Mason [facility] TRANSESOPHAGEAL [facility] SARS-COV2/RT-PCR ([facility] 2022-04-24 00:14:00 Clyde Mix [facility] REF LABS) [facility] ECG 12-LEAD 2022-04-23 20:45:18 Anay Lemus [facility] ECG 12-LEAD 2022-04-23 20:45:18 Unknown, Hl7 [facility] ECG 12-LEAD 2022-04-23 20:44:44 Unknown, Hl7 [facility] ABORH, MANUAL 2022-04-23 18:26:00 Sonia Still [facility] PROTHROMBIN TIME/INR 2022-04-23 18:25:00 Allan Anay [facility] APTT 2022-04-23 18:25:00 Allan Anay [facility] CBC W/PLT COUNT & AUTO 2022-04-23 18:25:00 Anay Lemus [facility] DIFFERENTIAL [facility] CBC W/PLT COUNT & AUTO 2022-04-23 18:25:00 Anay Lemus [facility] DIFFERENTIAL [facility] R & L CATH / CORONARY 2022-04-23 09:59:00 Sissy Plascencia [facility] ANGIOS (+/- LV) [facility] ECG 12-LEAD 2022-04-23 07:57:40 Sen, Sissy [facility] CARDIAC CATH REPORT - SCAN 2022-04-23 00:00:00 Provider, [facility] B-TYPE NATRIURETIC FACTOR 2022-04-22 11:13:00 Hamzah Forman CH, I [facility] (BNP) [facility] TYPE AND SCREEN, AUTOMATED 2022-04-22 11:13:00 Hamzah Forman [facility] CBC W/PLT COUNT & AUTO 2022-04-22 11:13:00 Hamzah Forman [facility] DIFFERENTIAL [facility] PROTHROMBIN TIME/INR 2022-04-22 11:13:00 Hamzah Forman [facility] COMPREHENSIVE METABOLIC 2022-04-22 11:13:00 Hamzah Forman [facility] PANEL [facility] CBC W/PLT COUNT & AUTO 2022-04-22 11:13:00 Hamzah Forman [facility] DIFFERENTIAL [facility] SARS-COV2/RT-PCR ([facility] 2022-04-22 10:53:00 Hamzah Forman [facility] REF LABS) [facility] CTA ABDOMEN & PELVIS 2022-04-16 09:00:00 Hamzah Formna [facility] CTA CHEST 2022-04-16 09:00:00 Hamzah Forman [facility] POCT-CREATININE 2022-04-16 08:45:00 Hamzah Forman [facility] Plan of Care Planned Activity Planned Date Details Comments Source Future Scheduled 2023-07-10 SHINGLES VACCINES (1 Met [facility] Test 14:16:11 of 2) [code = SHINGLES VACCINES (1 of 2)] Future Scheduled 2023-07-10 65+ PNEUMOCOCCAL [facility] Test 14:16:11 VACCINE (1 - PCV) [code = 65+ PNEUMOCOCCAL VACCINE (1 - PCV)] Future Scheduled 2023-07-10 COVID-19 VACCINE (3 - [facility] 14:16:11 Pfizer series) [code = COVID-19 VACCINE (3 - Pfizer series)] Future Scheduled 2023-07-10 INFLUENZA VACCINE (#1) [facility] Test 14:16:11 [code = INFLUENZA VACCINE (#1)] Future Scheduled 2023-06-19 Influenza Vaccine (#1) [facility] Test 00:00:00 [code = Influenza Medical Ce nter Vaccine (#1)] Future Scheduled 2023-05-[address] [facility] Test 00:00:00 [facility] Screening (12+) [code = Tobacco Cessation Counseling and Screening (12+)] Future Scheduled 2023-05-[address] [facility] Test 00:00:00 [facility] Screening (12+) [code = Tobacco Cessation Counseling and Screening (12+)] Future Scheduled 2023-03-26 SHINGLES VACCINES (1 Met [facility] Test 17:43:52 of 2) [code = SHINGLES VACCINES (1 of 2)] Future Scheduled 2023-03-26 65+ [facility]UMOCOCCAL [facility] Test 17:43:52 VACCINE (1 - PCV) [code = 65+ PNEUMOCOCCAL VACCINE (1 - PCV)] Future Scheduled 2023-03-26 COVID-19 VACCINE (3 - [facility] Test 17:43:52 Pfizer series) [code = COVID-19 VACCINE (3 - Pfizer series)] Future Scheduled 2023-03-26 INFLUENZA VACCINE Method [facility] Hospital Test 17:43:52 [code = INFLUENZA VACCINE] Future Scheduled 2023-01-23 SHINGLES VACCINES (1 Met [facility] Test 19:35:05 of 2) [code = SHINGLES VACCINES (1 of 2)] Future Scheduled 2023-01-23 65+ P[facility]UMOCOCCAL [facility] Test 19:35:05 VACCINE (1 - PCV) [code = 65+ PNEUMOCOCCAL VACCINE (1 - PCV)] Future Scheduled 2023-01-23 COVID-19 VACCINE (3 - [facility] Test 19:35:05 Booster for Pfizer series) [code = COVID-19 VACCINE (3 - Booster for Pfizer series)] Future Scheduled 2023-01-23 INFLUENZA VACCINE Method ist Hospital Test 19:35:05 [code = INFLUENZA VACCINE] Future Scheduled 2022-10-[address] [facility] Test 00:00:00 WELLNESS (YEAR 2 or Medical Center FIRST YEAR if no IPPE) [code = MEDICARE ANNUAL WELLNESS (YEAR 2 or FIRST YEAR if no IPPE)] Future Scheduled 2022-10-[address] [facility] Test 00:00:00 (12+) [code = Medical Center DEPRESSION SCREENING (12+)] Future Scheduled 2022-10-19 FALLS RISK SCREENING [facility] Test 00:00:00 [code = FALLS RISK Medical C enter SCREENING] Future Scheduled 2022-08-22 HEPATITIS B VACCINES [facility] 20:41:35 (1 of 3 - 3-dose series) [code = HEPATITIS B VACCINES (1 of 3 - 3-dose series)] Future Scheduled 2022-08-22 SHINGLES VACCINES (1 Met [facility] Test 20:41:35 of 2) [code = SHINGLES VACCINES (1 of 2)] Future Scheduled 2022-08-22 65+ [facility] 20:41:35 VACCINE (1 - PCV) [code = 65+ PNEUMOCOCCAL VACCINE (1 - PCV)] Future Scheduled 2022-08-22 COVID-19 VACCINE (3 - Me [facility] Test 20:41:35 Booster for Pfizer series) [code = COVID-19 VACCINE (3 - Booster for Pfizer series)] Future Scheduled 2022-08-22 INFLUENZA VACCINE Method [facility] Test 20:41:35 [code = INFLUENZA VACCINE] Future Scheduled 2022-08-22 HEPATITIS B VACCINES [facility] Test 20:41:35 (1 of 3 - 3-dose series) [code = HEPATITIS B VACCINES (1 of 3 - 3-dose series)] Future Scheduled 2022-08-22 SHINGLES VACCINES (1 Met [facility] Test 20:41:35 of 2) [code = [...] - Booster for Pfizer series)] Future Scheduled 2021-01-19 COVID-19 VACCINE (3 - CH I St [...] Type Clinicians Facility Department ID 2022-04-10 Inpatient [facility] Surgery [id number] [facility] 09:11:07 2023-04-02 2023-04-02 Outpatient CHRISTOS Gr [facility] [id number] [facility] 05:41:00 05:41:[address] 2022-06-09 2022-06-[address] [facility] [id number] 00:[facility] 00:00:00 [facility] 2022-05-28 2022-05-28 Office Gus Brito [facility] [id number] 10:00:00 10:15:00 Visit [facility] 2022-05-28 2022-05-28 Outpatient EL WARNER HEATON [facility] SLE [id number] [facility] 09:34:35 09:34:35 2022-05-28 2022-05-28 [facility] [id number] [facility] 00:00:00 00:00:00 2022-05-19 2022-05-19 Orders [facility] [id number] 00:00:00 00:00:00 Only [facility] 2022-04-23 2022-05-06 Hospital Sissy Benedict [facility] [id number] [facility] 06:47:00 11:59:[address] [facility] Gus Brito [facility] 2022-04-23 2022-05-06 Inpatient GUS FONSECA [facility] Surgery [id number] SLE 06:47:00 11:59:00 2022-04-26 2022-04-26 Surgery Gus Brito [facility] [id number] 08:00:00 11:51:00 [facility] 2022-04-26 2022-04-26 Anesthesia Anderson [facility] [id number] 08:35:00 10:44:00 Event [facility] 2022-04-24 2022-04-24 Anesthesia Angel Ramirez [facility] [id number] [facility] 07:35:00 15:21:00 Event Juan Burnham [facility] 2022-04-24 2022-04-24 Surgery Gus Brito [facility] [id number] 07:30:00 14:19:00 [facility] 2022-04-23 2022-04-23 Surgery Sen, [facility] [id number] 11:20:00 13:33:00 [facility] 2022-04-22 2022-04-22 Outpatient EL SLE SLE [id number] [facility] 14:56:24 23:59:00 2022-04-22 2022-04-22 [facility] [id number] 14:30:00 23:59:00 Encounter [facility] 2022-04-22 2022-04-22 Outpatient SLE SLE [id number] [facility] 10:32:04 10:32:04 2022-04-22 2022-04-22 Office EL Sissy Plascencia [facility] [id number] 10:00:00 10:15:00 Visit Moody Gore [facility] 2022-04-16 2022-04-16 Outpatient DICKSON, [facility] [id number] [facility] 07:50:52 23:59:00 ALEDO 2022-04-16 2022-04-16 [facility] [id number] 07:50:52 23:59:00 Encounter Hamzah Corre[facility] 2022-04-16 2022-04-16 [facility] [id number] [facility] 07:49:57 07:49:57 ALEDO 2022-04-16 2022-04-16 [facility] [id number] 07:49:57 07:49:57 Encounter Hamzah robison [facility] 2022-04-10 2022-04-10 [facility] Dickson [facility] [id number] 00:00:00 00:00:00 Only Hamzah Steiner [facility] 2022-04-09 2022-04-09 Office Gus Brito [facility] [id number] 10:30:00 11:00:00 Visit Hamzah Forman [facility] 2022-04-09 2022-04-09 Outpatient [facility] [id number] SLE 10:17:18 10:17:18 HAMZAH 2022-04-02 2022-04-02 Outpatient CHRISTOS Valladares [facility] [id number] [facility] 05:16:00 05:16:00 Chace 80 [facility] 2022-04-02 2022-04-02 Outpatient CHRISTOS ValladaresCL [id number] [facility] 05:16:00 05:16:00 Chace [id number] [facility] 2021-02-08 2021-02-08 Outpatient Marlon MARCO IRENE [facility] [id number] [facility] 15:00:00 15:00:00 MARCO IRENE [facility] 2020-12-20 2020-12-20 Outpatient MARCO CISNEROS [facility] [id number] [facility] 00:00:00 00:00:00 MARCO IRENE [facility] 2020-11-24 2020-11-24 Outpatient [facility] [id number] [place] 00:00:00 00:00:00 [id number] Method i 2020-11-13 2020-11-[address] [facility] [id number] 00:00:00 00:00:00 Marco Gao [id number] [place] [id number] Professio [id number] nal [address] [place] [address] 2020-11-03 2020-11-03 Outpatient [facility] [id number] [place] 00:00:00 00:00:00 336 Method i 2020-11-02 2020-11-[address] [facility] [id number] 14:12:48 16:16:50 Visit Marco Gao [id number] [place] [id number] Professio [id number] nal [address] [facility] 2020-11-02 2020-11-02 Outpatient R [facility] [id number] Univers 14:20:00 14:20:00 [facility] 2020-10-24 2020-10-24 Outpatient Marlon JOSHI [facility] [id number] Univers 11:00:00 11:00:00 RONAN rodriguez f [facility] 2020-09-11 2020-09-11 Outpatient MARCO CISNEROS [facility] [id number] [facility] 15:00:00 15:00:00 MARCO IRENE [facility] 2020-08-19 2020-08-19 Emergency X KIANNA [facility] ERT [id number] [employer] 09:20:00 09:20:00 IVAN [facility] 2020-05-23 2020-05-23 Outpatient [facility] [id number] [place] 00:00:00 00:00:00 [address] 2020-05-23 2020-05-23 Outpatient [facility] [id number] [place] 00:00:00 00:00:00 DANE [address] [facility] st 2019-12-02 2019-12-02 [facility] [id number] [facility] 12:15:00 12:15:[id number] [place] [address] [facility] l Results Test Description Test Time Test Comments Results Result Comments Source - XR CHEST 1 V 2023-04-02 00:00:00 [facility] : 1935 Sex: F FAX: Chace Sanz MD [phone] [place]: St: REG FAX: Haja Xiao [phone] FAX: Gage Meredith [phone] ------- Name: SCARLETT SMILEY [facility] : 1935 Age/S: 87/F [address] [place] [address] Unit #: [id number] Loc: [place] [address] Phys: Gage Meredith Acct: [id number] Dis Date: Status: [facility] PHONE #: [phone] Exam Date: 04/02/2023 145 FAX #: [phone] Reason: Post PM/ICD EXAMS: CPT CODE: [id number] XR CHEST 1 V 66057 PROCEDURE INFORMATION: Exam: XR Chest Exam date and time: 04/02/2023 2:48 PM Age: 87 years old Clinical indication: Device placement; Cardiac pacemaker placement or adjustment; Additional info: Post pm/icd TECHNIQUE: Imaging protocol: Radiologic exam of the chest. Views: 1 view. COMPARISON: DX XR CHEST 2 V 04/01/2023 1:12 PM FINDINGS: Tubes, catheters and devices: Cardiac pacemaker noted with intact leads. Lungs: No focal consolidation. Pleural spaces: Unremarkable. No pleural effusion. No pneumothorax. Heart/Mediastinum: Status post valvuloplasty. Bones/joints: Unremarkable. IMPRESSION: Cardiac pacemaker noted with intact leads. at 1549 Reported and signed by: Vazquez Amaro M.D. CC: Chace Nava MD; Haja Jennings MD; Gage Meredith Technologist: Kenney Wang, RT(R); Nahomy Rodriguez RT(R) Trnscrd Date/Time/By: 04/02/2023 (1549) : By: SilvanoCL26 Orig Print D/T: S: 04/02/2023 (9898) PAGE 1 Signed Report BASIC METABOLIC PANEL 2023-04-01 13:51:00 Test Item Value Reference Range Interpretation Comme nts SODIUM (test code = NA) 130 mEq/L 134-147 L POTASSIUM (test code = K) 4.0 mEq/L 3.4-5.0 N CHLORIDE (test code = CL) 94 mEq/L 100-108 L CARBON DIOXIDE (test code = 29 mEq/l 21-33 N CO2) ANION GAP (test code = GAP) 10 0-20 N GLUCOSE (test code = GLU) 80 mg/dL 70-110 N BLOOD UREA NITROGEN (test code 15 mg/dL 7-18 N = BUN) GLOMERULAR FILTRATION RATE 54.9 70-80 L T he Glomerular Filtration Rate is (test code = GFR) a calculat ed parameterbased on serum Creatinin e, patient age and sex. GFR values less than 60 mL/min/1.73 squ are meters are indicative ofCh ronic Kidney Disease. Values less than 15 mL/min/1.73squa re meters indicate Kidney failure. The calculation forGFR is based on the CKD-EPI (2020) calculat ion. This formulais race indifferen t and is the recommended for jackie for GFRby the National Kidney Foundation for Adults.The GFR will not calculate if the sex is u nknown or if thepatient's ag e is <18 years. CREATININE (test code = CREAT) 1.0 mg/dL 0.6-1.3 N CALCIUM (test code = CA) 9.3 mg/dL 8.0-10.5 N PROTHROMBIN [id number] 13:40:00 Test Item Value Reference Range Interpretation Comments PROTHROMBIN TIME 10.7 SECONDS 9.3-12.9 N PATIENT (test code = PTP) INTERNATIONAL NORMAL 1.0 0.8-1.2 N TARGET INR BY RATIO (test code = [...] (to prevent recurrent infar ct). CBC W/AUTO [id number] 13:32:00 Test Item Value Reference Range Interpretation Comments WHITE BLOOD CELL (test code = 10.2 x10 3/uL 4.5-11.0 N WBC) RED BLOOD CELL (test code = 3.70 x10 6/uL 3.54-5.02 N RBC) HEMOGLOBIN (test code = HGB) 12.4 g/dL 11.0-15.0 N HEMATOCRIT (test code = HCT) 37.3 % 33.0-45.0 N MEAN CELL VOLUME (test code = 100.8 fL 81.0-99.0 H MCV) MEAN CELL HGB (test code = MCH) 33.5 pg 27.0-33.0 H MEAN CELL HGB CONCETRATION 33.2 g/dL 33.0-37.0 N (test code = MCHC) RED CELL DISTRIBUTION WIDTH CV 13.4 % 11.5-14.5 N (test code = RDW) PLATELET COUNT (test code = 218 x10 3/uL 150-400 N PLT) NEUTROPHIL % (test code = NT%) 78.5 % 56.0-77.0 H LYMPHOCYTE % (test code = LY%) 6.5 % 14.0-32.0 L NEUTROPHIL # (test code = NT#) 8.03 x10 3/uL 2.0-7.6 H LYMPHOCYTE # (test code = LY#) 0.67 x10 3/uL 1.0-3.8 L MANUAL DIFF REQUIRED (test code NO = MDIFF) RED CELL DISTRIBUTION WIDTH SD 49.5 fL 37.0-54.0 N (test code = RDW-SD) MEAN PLATELET VOLUME (test code 8.9 fL 7.0-9.0 N = MPV) IMMATURE GRANULOCYTE % (test 0.4 % 0.0-2.0 N code = IG%) MONOCYTE % (test code = MO%) 12.1 % 4.8-9.0 H EOSINOPHIL % (test code = EO%) 2.1 % 0.3-3.7 N BASOPHIL % (test code = BA%) 0.4 % 0.0-2.0 N NUCLEATED RBC % (test code = 0.0 % 0-0 N NRBC%) IMMATURE GRANULOCYTE # (test 0.04 x10 3/uL 0.00-0.03 H code = IG#) MONOCYTE # (test code = MO#) 1.24 x10 3/uL 0.1-0.8 H EOSINOPHIL # (test code = EO#) 0.22 x10 3/uL 0.0-0.2 H BASOPHIL # (test code = BA#) 0.04 x10 3/uL 0.0-0.2 N NUCLEATED RBC # (test code = 0.00 x10 3/uL 0.0-0.1 N NRBC#) - CHEST 2 [id number] 00:00:00 [facility] : 1935 Sex: FFAX: Chace Sanz MD [phone] [place]: St: PRE FAX: Haja Xiao [phone] ----- Name: SCARLETT SMILEY [facility] : 1935 Age/S: 87/F [address] [place], [place] [address] Unit #: [id number] Loc: [place] [address] Phys: Haja Jennings MD Acct: [id number] Dis Date: Status: PRE SDC PHONE #: [phone] Exam Date: 04/01/2023 1313 FAX #: [phone] Reason: PRE OP EXAMS: CPT CODE: [id number] XR CHEST 2 V 94758 PROCEDURE INFORMATION: Exam: XR Chest Exam date and time: 04/01/2023 1:12 PM Age: 87years old Clinical indication: Pre- operative exam; Cardiovascular screening and respiratory screening exam; Additional info: Pre op TECHNIQUE: Imaging protocol: Radiologic exam of the chest. Views: 2 views. PA and Lateral COMPARISON: DX XR CHEST 2 V 04/01/2022 3:57 PM FINDINGS: Lungs: There are normal lung volumes without consolidation or interstitial opacities. Pleural spaces: Unremarkable. No pleural effusion. No pneumothorax. Heart/Mediastinum: The heart size is normal. There are prosthetic cardiac valves. The mediastinal contour is normal. The trachea is midline. Bones/joints: Previous lumbar spinal fusion. IMPRESSION: No acute cardiopulmonary findings. at 1416 Reported and signed by: Ramez Zheng M.D. CC: Chace Nava MD; Haja Jennings MD Technologist: RT Geronimo(Marlon) Trnscrd Date/Time/By: 04/01/2023 (1416) : By: Juan M Orig Print D/T: S: 04/01/2023 (141) PAGE 1 Signed ReportPOC-Glucose [id number] 08:07:07 Test Item Value Reference Range Interpretation Comments POC-Glucose Meter (test 84 mg/dL 70-110 : TE STED AT [facility] code = 1538) 6720 [facility], 770 30: Process Eng/Techni juan ID = [id number] for Adriana Snyder Lab Interpretation (test Normal code = 49147-6) [facility] [id number] 08:07:07 Test Item Value Reference Range Interpretation Comments POC-Glucose Meter (test 84 mg/dL 70-110 : TE STED AT [facility] code = 1538) [address] [place], 770 30: Process Eng/Techni juan ID = [id number] for Adriana Snyder Lab Interpretation (test Normal code = 39796-0) [facility] CenterPOCT-GLUCOSE [id number] 08:07:07 Test Item Value Reference Range Interpretation Comments POC-GLUCOSE METER 84 mg/dL 70-110 : TESTED A T [facility] 6720 (BEAKER) (test code = ELSI Mason [facility], 1538) 91402: Process Eng/Techni juan ID = [id number] for Adriana Patel RAD, CHEST, 1 VIEW, NON [id number] 07:22:00Reason for exam:->ptxShould this be performed at the bedside?->Yes [facility] : 1935 Sex: FFINAL REPORT CLINICAL HISTORY: ptx TECHNIQUE: 1 view of the chest. COMPARISON: 05/05/2022 IMPRESSION: The small right pneumothorax is unchanged. Patchy bilateral lower lung opacities areunchanged. A trace right effusion is unchanged. The cardiomediastinal silhouette is unchanged. Signed: Luis Conklin Verified Date/Time: 05/06/2022 07:22:15 Reading Location: [facility] Radiology Reading Room BASIC METABOLIC [id number] 07:01:04 Test Item Value Reference Range Interpretation [...] S NOT APPLICABLE FOR DIALYSIS PATIEN TS. Process Eng ID Brooklynn ARCHIBALD [id number] 07:01:04 Test Item Value Reference Range Interpretation Comments MAGNESIUM (BEAKER) (test code = 1.9 mg/dL 1.6-2.6 627) Process Eng ID Brooklynn ARCHIBALD WCBC (HEMOGRAM ONLY)2022-05-06 06:28:34 [...] 0-0 (BEAKER) (test code = 413) POCT-GLUCOSE [id number] 21:33:50 Test Item Value Reference Range Interpretation Comments POC-GLUCOSE METER 95 mg/dL 70-110 : TESTED A T [facility] 6720 (BEAKER) (test code = ELSI Mason [facility], 1538) 20236: Process Eng/Techni juan ID = [id number] for Sherri Haider POCT-GLUCOSE [id number] 17:00:08 Test Item Value Reference Range Interpretation Comments POC-GLUCOSE METER 123 mg/dL 70-110 H : TESTED A T [facility] 6720 (BEAKER) (test code = [facility], 1538) 86860: Process Eng/Techni juan ID = [id number] for JEFFREY QUINTERO RAD, CHEST, 1 VIEW, NON [id number] 12:36:00Reason for exam:->R/o pneumothoraxShould this be performed at the bedside?->Yes [facility] : 1935 Sex: FFINAL REPORT CLINICAL HISTORY: R/o pneumothorax TECHNIQUE: 1 view of the chest. COMPARISON: 05/04/2022 IMPRESSION: The small right pneumothorax is unchanged. Right chest wall subcutaneous emphysema is again seen. Mild bilateral lung opacities and small pleural effusions are unchanged. There is no significant cardiomegaly. Signed: Luis Conklin MDReport Verified Date/Time: 05/05/2022 12:36:46 Reading Location: [facility] Radiology Reading Room POCT- GLUCOSE [id number] 11:51:51 Test Item Value Reference Range Interpretation Comments POC-GLUCOSE METER 76 mg/dL 70-110 : TESTED A T [facility] 6720 (BEAKER) (test code = [facility], 1538) 23239: Process Eng/Techni juan ID = [id number] for LEIGH ER, HIWITHA POCT-GLUCOSE [id number] 07:27:49 Test Item Value Reference Range Interpretation Comments POC-GLUCOSE METER 84 mg/dL 70-110 : TESTED A T [facility] 6720 (BEAKER) (test code = [facility], 1538) 00352: Process Eng/Techni juan ID = [id number] for LEIGH ER, HIWITHA BASIC METABOLIC [id number] 05:14:34 Test Item Value Reference Range Interpretation [...] S NOT APPLICABLE FOR DIALYSIS PATIEN TS. Process Eng ID - DRAGAN [id number] 05:14:34 Test Item Value Reference Range Interpretation Comments MAGNESIUM (BEAKER) (test code = 1.9 mg/dL 1.6-2.6 627) Process Eng ID - DRAGAN WC (HEMOGRAM ONLY)2022-05-05 04:29:36 Test Item Value Reference [...] 0-0 (BEAKER) (test code = 413) POCT-GLUCOSE [id number] 21:48:26 Test Item Value Reference Range Interpretation Comments POC-GLUCOSE METER 97 mg/dL 70-110 : TESTED A T [facility] 6720 (BEAKER) (test code = [facility], 1538) 19382: Process Eng/Techni juan ID = [id number] for Chelsea vicente Sherri POCT-GLUCOSE [id number] 17:44:55 Test Item Value Reference Range Interpretation Comments POC-GLUCOSE METER 85 mg/dL 70-110 : TESTED A T [facility] 6720 (BEAKER) (test code = [facility], 1538) 39460: Process Eng/Techni juan ID = [id number] for Birdie Betts RAD, CHEST, 1 VIEW, NON [id number] 14:47:00Reason for exam:->chest tube removalShould this be performed at the bedside?->Yes [facility] 1935 Sex: FFINAL [...] Ann Verified Date/Time: 05/04/2022 14:47:19 Reading Location: [address] Consult Reading Room POCT-GLUCOSE [id number] 12:27:08 Test Item Value Reference Range Interpretation Comments POC-GLUCOSE METER 93 mg/dL 70-110 : TESTED A T [facility] 6720 (DSEIRE) (test code = ELSI [place], 1538) 98557: Process Eng/Techni juan ID = [id number] for Birdie Betts RAD, CHEST, 1 VIEW, NON [id number] 09:09:00Reason for exam:->R/o pneumothoraxShould this be performed at the bedside?->Yes [facility] : 1935 Sex: FFINAL REPORT RAD, CHEST, 1 VIEW, NON DEPT INDICATION: R/o pneumothorax COMPARISON: Prior day's exam FINDINGS: Portable frontal view of the chest. IMPRESSION: Support Lines: Right chesttube. Lungs and pleura: Unchanged small right apical pneumothorax. Small right effusion. Heart and mediastinum: Stable contours. Additional findings: None. Signed: Kyara [facility]ussaint [facility] Verified Date/Time: 05/04/2022 09:09:00 POCT-GLUCOSE [id number] 08:56:25 Test Item Value Reference Range Interpretation Comments POC-GLUCOSE METER 118 mg/dL 70-110 H : TESTED A T [facility] 6720 (BEAKER) (test code = NIRMALANIL Mason [facility], 1538) 95434: Process Eng/Techni juan ID = [id number] for Birdie Alvarado BASIC METABOLIC [id number] 04:43:51 Test Item Value Reference Range Interpretation [...] S NOT APPLICABLE FOR DIALYSIS PATIEN TS. Process Eng ID - DELLA [id number] 04:43:51 Test Item Value Reference Range Interpretation Comments MAGNESIUM (BEAKER) (test code = 1.7 mg/dL 1.6-2.6 627) Process Eng ID - DELLA GCBC (HEMOGRAM ONLY)2022-05-04 04:09:42 [...] 0-0 (BEAKER) (test code = 413) POCT-GLUCOSE [id number] 21:36:15 Test Item Value Reference Range Interpretation Comments POC-GLUCOSE METER 123 mg/dL 70-110 H : TESTED A T [facility] 6720 (BEAKER) (test code = ELSI Mason [facility], 1538) 21265: Process Eng/Techni juan ID = [id number] for Sherri Wiseman POCT-GLUCOSE [id number] 17:15:07 Test Item Value Reference Range Interpretation Comments POC-GLUCOSE METER 99 mg/dL 70-110 : TESTED A T [facility] 6720 (DESIRE) (test code = ELSI Mason [facility], 1538) 40006: Process Eng/Techni juan ID = [id number] for Birdie Betts RAD, CHEST, 1 VIEW, NON [id number] 13:29:00Reason for exam:->r/o pneumothoraxShould this be performed at the bedside?->Yes [facility] : 1935 Sex: FFINAL REPORT [...] Ann Verified Date/Time: 05/03/2022 13:29:36 Reading Location: [facility] Consult Reading Room POCT- GLUCOSE [id number] 11:41:15 Test Item Value Reference Range Interpretation Comments POC-GLUCOSE METER 103 mg/dL 70-110 : TESTED A T [facility] 6720 (BEAKER) (test code = ELSI Mason [place], 1538) 61143: Process Eng/Techni juan ID = [id number] for Birdie Alvarado POCT-GLUCOSE [id number] 07:30:50 Test Item Value Reference Range Interpretation Comments POC-GLUCOSE METER 86 mg/dL 70-110 : TESTED A T [facility] 6720 (BEAKER) (test code = ELSI Mason [place], 1538) 84078: Process Eng/Techni juan ID = [id number] for Birdie Betts [id number] 06:26:15 Test Item Value Reference Range Interpretation Comments MAGNESIUM (BEAKER) (test code = 1.9 mg/dL 1.6-2.6 627) Process Eng ID - DELLA GBASIC METABOLIC [id number] 06:26:14 Test Item Value Reference Range Interpretation [...] S NOT APPLICABLE FOR DIALYSIS PATIEN TS. Process Eng ID - DELLA GCBC (HEMOGRAM ONLY)2022-05-03 06:10:08 [...] 0-0 (BEAKER) (test code = 413) POCT-GLUCOSE [id number] 21:16:35 Test Item Value Reference Range Interpretation Comments POC-GLUCOSE METER 101 mg/dL 70-110 : TESTED A T [facility] 6720 ([employer]) (test code = [facility], 1538) 75682: Process Eng/Techni juan ID = [id number] for Sherri Wiseman POCT-GLUCOSE [id number] 16:51:48 Test Item Value Reference Range Interpretation Comments POC-GLUCOSE METER 83 mg/dL 70-110 : TESTED A T [facility] 6720 ([employer]) (test code = [facility], 1538) 38456: Process Eng/Techni juan ID = [id number] for REESE ER, HIWITHA 2D Echo W/Doppler(CW/PW/Color)2022-05-02 14:50:42Ejection FractionSLEH ECHO [facility]Do[facility](CW/PW/Color)2022-05-02 14:50:42Ejection FractionSLEH ECHO [facility]LAB [facility] 1 [facility], NON [id number] 14:10:00Reason for exam:->R/O pneumoShould this be performed at the bedside?->[facility] : 1935 Sex: FFINAL REPORT [...] MDReport Verified Date/Time: 05/02/2022 14:10:15 Reading Location: [facility] Radiology Reading Room RAD, CHEST, 1 VIEW, NON [id number] 13:14:00Reason for exam:->s/p CT surgeryShould this be performed at the bedside?->Yes [facility] : 1935 Sex: FFINAL REPORT [...] Yang Verified Date/Time: 05/02/2022 13:14:45 Reading Location: [facility] Radiology Reading Room POCT-GLUCOSE [id number] 12:31:33 Test Item Value Reference Range Interpretation Comments POC-GLUCOSE METER 100 mg/dL 70-110 : TESTED A T [facility] 6720 (BEAKER) (test code = [facility] Dianwoba [facility], 1538) 66993: Process Eng/Techni juan ID = [id number] for Gabbi Roberts POCT-GLUCOSE [id number] 07:26:29 Test Item Value Reference Range Interpretation Comments POC-GLUCOSE METER 83 mg/dL 70-110 : TESTED A T [facility] 6720 (BEAKER) (test code = [facility] Dianwoba [facility], 1538) 84786: Process Eng/Techni juan ID = [id number] for CIERRA HALLWITHA BASIC METABOLIC [id number] 06:08:27 Test Item Value Reference Range Interpretation [...] S NOT APPLICABLE FOR DIALYSIS PATIEN TS. Process Eng ID - DRAGAN [id number] 06:08:27 Test Item Value Reference Range Interpretation Comments MAGNESIUM (BEAKER) (test code = 1.7 mg/dL 1.6-2.6 627) Process Eng ID Brooklynn ARCHIBALD WCBC (HEMOGRAM ONLY)2022-05-02 05:59:25 [...] 0-0 (BEAKER) (test code = 413) POCT-GLUCOSE [id number] 21:26:19 Test Item Value Reference Range Interpretation Comments POC-GLUCOSE METER 106 mg/dL 70-110 : TESTED A T [facility] 6720 (BEAKER) (test code = [facility] Marlon [facility], 1538) 88814: Process Eng/Techni juan ID = [id number] for JAVI SWENSON POCT-GLUCOSE [id number] 17:37:12 Test Item Value Reference Range Interpretation Comments POC-GLUCOSE METER 81 mg/dL 70-110 : TESTED A T [facility] 6720 (BEAKER) (test code = [facility] Marlon [facility], 1538) 07530: Process Eng/Techni juan ID = [id number] for SANTINO SADLER POCT-GLUCOSE [id number] 11:46:18 Test Item Value Reference Range Interpretation Comments POC-GLUCOSE METER 100 mg/dL 70-110 : TESTED A T [facility] 6720 ([facility]) (test code = [facility], 1538) 10860: Process Eng/Techni juan ID = [id number] for SANTINO SOLOMON RAD, CHEST, 1 VIEW, NON [id number] 10:08:00Reason for exam:->Shortness of breath after chest tube removal [facility] : 1935 Sex: FFINAL REPORT [...] Albright Verified Date/Time: 05/01/2022 10:08:33 Reading Location: [facility] Radiology Reading Room RAD, CHEST, 1 VIEW, NON [id number] 09:40:00Reason for exam:->s/p CT surgeryShould this be performed at the bedside?->Yes [facility] 1935 Sex: FFINAL [...] Albright Verified Date/Time: 05/01/2022 09:40:35 Reading Location: [facility] Rad[facility] Reading Room POCT-GLUCOSE [id number] 07:52:00 Test Item Value Reference Range Interpretation Comments POC-GLUCOSE METER 87 mg/dL 70-110 : TESTED A T [facility] 6720 (BEAKER) (test code = [place], 1538) 52559: Process Eng/Techni juan ID = [id number] for SANTINO SADLER BASIC METABOLIC [id number] 05:35:18 Test Item Value Reference Range Interpretation [...] S NOT APPLICABLE FOR DIALYSIS PATIEN TS. Process Eng ID - DELLA [id number] 05:35:18 Test Item Value Reference Range Interpretation Comments MAGNESIUM (BEAKER) (test code = 1.6 mg/dL 1.6-2.6 627) Process Eng ID - DELLA GCBC (HEMOGRAM ONLY)2022-05-01 05:02:18 [...] 0-0 (BEAKER) (test code = 413) POCT-GLUCOSE [id number] 21:29:06 Test Item Value Reference Range Interpretation Comments POC-GLUCOSE METER 115 mg/dL 70-110 H : TESTED A T [facility] 6720 (BEAKER) (test code = [facility], 153) 05306: Process Eng/Techni juan ID = [id number] for REBECA SADLER SE POCT-GLUCOSE [id number] 17:31:57 Test Item Value Reference Range Interpretation Comments POC-GLUCOSE METER 94 mg/dL 70-110 : TESTED A T [facility] 6720 (BEAKER) (test code = [facility], 153) 89586: Process Eng/Techni juan ID = [id number] for Chandni dawson, Adriana POCT-GLUCOSE [id number] 12:08:03 Test Item Value Reference Range Interpretation Comments POC-GLUCOSE METER 107 mg/dL 70-110 : TESTED A T [facility] 6720 (BEAKER) (test code = [facility], 153) 82757: Process Eng/Techni juan ID = [id number] for Denzel Rosales RAD, CHEST, 1 VIEW, NON [id number] 08:33:00Reason for exam:->s/p CT surgeryShould this be performed at the bedside?->Yes [facility] 1935 Sex: FFINAL REPORT CHEST AP PORTABLE Comparison exam: 04/29/2022 History provided: Follow-up after chest surgery Right chest tube unchanged in appearance. Right apical pneumothorax appears improved, currently estimated at 10-15% by volume. Basilar atelectatic change remains with small effusions. Subcutaneous emphysema on the right unchanged. Signed: Jose Ramon Soares MDReport Verified Date/Time: 04/30/2022 08:33:10 Reading Location: [facility] Reading Room - [place] [address] POCT-GLUCOSE [id number] 07:37:15 Test Item Value Reference Range Interpretation Comments POC-GLUCOSE METER 107 mg/dL 70-110 : TESTED A T [facility] 6720 (DESIRE) (test code = [facility] [place], 1538) 27759: Process Eng/Techni juan ID = [id number] for Denzel Rosales RAD, CHEST, 1 VIEW, NON [id number] 22:45:00Reason for exam:->post CT removal Should this be performed at the bedside?->Yes [facility] 1935 Sex: [...] 04/29/2022 22:45:51 RAD, CHEST, 1 VIEW, NON [id number] 22:36:00Reason for exam:->right pleural chest tube removalShould this be performed at the bedside?->Yes [facility] : 1935 Sex: FFINAL REPORT [...] Garza MDReport Verified Date/Time: 04/29/2022 22:36:37 POCT-GLUCOSE [id number] 21:32:06 Test Item Value Reference Range Interpretation Comments POC-GLUCOSE METER 107 mg/dL 70-110 : [facility] T [facility]20 [facility] (test code = [facility] Marlon [facility], 1538) 56956: Process Eng/Techni juan ID = [id number] for GALEN SANCHES POCT-GLUCOSE [id number] 16:27:06 Test Item Value Reference Range Interpretation Comments POC-GLUCOSE METER 79 mg/dL 70-110 : TESTED A T [facility] 6720 ([facility]) (test code = NIRMALSD Marlon [facility], 1538) 15840: Process Eng/Techni juan ID = [id number] for Kylee Olivera RAD, CHEST, 1 VIEW, NON [id number] 11:48:00Reason for exam:->post opShould this be performed at the bedside?->Yes [facility] : 1935 Sex: FFINAL REPORT [...] Albright Verified Date/Time: 04/29/2022 11:48:25 Reading Location: [facility] Radiology Reading Room -GLUCOSE [id number] 11:10:43 Test Item Value Reference Range Interpretation Comments POC-GLUCOSE METER 80 mg/dL 70-110 : TESTED A T [facility] (BEAKER) (test code = [place], 1538) [address]326: Process Eng/Techni juan ID = [id number] for Joie Welch CBC W/PLT COUNT & AUTO [id number] 09:22:21 Test Item Value Reference Range Interpretation [...] CONCENTRATION Adequate (CELLAVISION)(BEAKER) (test code = 3438) Process Eng ID Brooklynn Cohen comments: Slide comments:POCT-GLUCOSE [id number] 07:10:50 Test Item Value Reference Range Interpretation Comments POC-GLUCOSE METER 91 mg/dL 70-110 : TESTED A T [facility] (BEAKER) (test code = EL[place], 1538) 47256: Process Eng/Techni juan ID = [id number] for Armaan charles (contract)Angelo BASIC METABOLIC [id number] 04:56:58 Test Item Value Reference Range Interpretation [...] S NOT APPLICABLE FOR DIALYSIS PATIEN TS. Process Eng ID - JONI [id number] 04:56:58 Test Item Value Reference Range Interpretation Comments MAGNESIUM (BEAKER) (test code = 1.7 mg/dL 1.6-2.6 627) Process Eng ID - JONI [id number] 04:56:58 Test Item Value Reference Range Interpretation Comments PHOSPHORUS (BEAKER) (test code = 2.5 mg/dL 2.3-4.7 604) Process Eng ID - JONI LCALCIUM, [id number] 04:51:14 Test Item Value Reference Range Interpretation Comments CALCIUM IONIZED (BEAKER) (test 1.16 mmol/L 1.12-1.27 code = 698) PH, BLOOD (BEAKER) (test code = 7.38 1810) POCT-GLUCOSE [id number] 01:42:33 Test Item Value Reference Range Interpretation Comments POC-GLUCOSE METER 82 mg/dL 70-110 : TESTED A T [facility] 6720 (BEAKER) (test code = ELSI Mason [place], 1538) [address]: Process Eng/Techni juan ID = [id number] for Scarlett Matthews POCT-GLUCOSE [id number] 16:36:01 Test Item Value Reference Range Interpretation Comments POC-GLUCOSE METER 85 mg/dL 70-110 : TESTED A T [facility] 6720 (BEAKER) (test code = ELSI Mason [facility], 1538) [address]: Process Eng/Techni juan ID = [id number] for ZANE YEH RAD, CHEST, 1 VIEW, NON [id number] 15:36:00Reason for exam:->assess for R ptx after chest tubes place to water seal in setting of air leakShould this be performed at the bedside?->Yes [facility] 1935 Sex: FAddendum BeginsREPORT STATUS:A The above findings were discussed with nurse Shereen Chaney, who acknowledged the findings, on 04/28/2022 at 3:33 PM. Signed: Darwin Albright MDRepzaira VerifiedDate/Time: 04/28/2022 15:36:39 Reading Location: [facility] Reading RoomAddendum EndsFINAL REPORT RAD, CHEST, 1 VIEW, NON DEPT INDICATION: assess for R ptx after chest tubes place to water seal in setting of air leak COMPARISON: 04/28/2022 TECHNIQUE: Portable frontal view of the chest. FINDINGS: Support Lines and Devices: Stable. Lungs and pleura: Unchanged airspace and pleural opacities. Small to moderate right upper pneumothorax, new since prior exam. Heart and med iastinum: Stable contours. Stable surgical changes. Additional findings: None. IMPRESSION: 1.New small to moderate right upper pneumothorax. Right-sided chest tubes again seen.2.Small left pleural effusion.3.Left retrocardiac opacity, representing singly or in combination airspace disease, atelectasis, or pleural effusion. Signed: Darwin Albrightepsaint john's [facility] Verified Date/Time: 04/28/2022 15:33:04 ReadingLocation: [facility] Reading Room POCT-GLUCOSE [id number] 12:00:43 Test Item Value Reference Range Interpretation Comments POC-GLUCOSE METER 88 mg/dL 70-110 : Notified RN/MD: TESTED (BEAKER) (test code = AT [facility] 6720 [facility] 1538) [facility], 770 30: Process Eng/Techni juan ID = [id number] for Margaret marilia Fuentes Luna chloe RAD, CHEST, 1 VIEW, NON [id number] 09:43:00Reason for exam:->post opShould this be performed at the bedside?->Yes [facility] : 1935 Sex: FFINAL REPORT RAD, CHEST, 1 VIEW, NON DEPT INDICATION: post op COMPARISON: Prior day's exam TECHNIQUE: Portable frontal view of the chest. FINDINGS: Support Lines and Devices: The right IJ [place]bert catheter was removed. Lungs and pleura: Unchanged airspace and pleural opacities. No pneu mothorax identified. Heart and mediastinum: Stable contours. Stable surgical changes. Additional findings: None. IMPRESSION: 1.Two right-sided chest tubes without pneumothorax identified.2.Left retrocardiac opacity, representing singly or in combination airspace disease, atelectasis, or pleural effusion.3.Small left pleural effusion. Signed: Darwin Albright MDReport Verified Date/Time: 04/28/2022 09:43:34 Reading Location: [facility] Reading Room CBC W/PLT COUNT & AUTO [id number] 07:27:01 Test Item Value Reference Range Interpretation [...] CONCENTRATION Decreased (CELLAVISION)(BEAKER) (test code = 3438) Process Eng ID - Dontae Dato-onUser comments: Slide comments:[id number] 04:46:08 Test Item Value Reference Range Interpretation Comments PHOSPHORUS (BEAKER) 2.2 mg/dL 2.3-4.7 L Specimen slightly (test code = 604) hemolyzed Process Eng ID Brooklynn ARCHIBALD WBASIC METABOLIC [id number] 04:46:08 Test Item Value Reference Range Interpretation [...] S NOT APPLICABLE FOR DIALYSIS PATIEN TS. Process Eng ID - DRAGAN [id number] 04:46:07 Test Item Value Reference Range Interpretation Comments MAGNESIUM (BEAKER) 2.0 mg/dL 1.6-2.6 Specimen slightly (test code = 627) hemolyzed Process Eng ID - DRAGAN WCALCIUM, [id number] 04:06:50 Test Item Value Reference Range Interpretation Comments CALCIUM IONIZED (BEAKER) (test 1.17 mmol/L 1.12-1.27 code = 698) PH, BLOOD (BEAKER) (test code = 7.35 1810) POCT-GLUCOSE [id number] 00:18:38 Test Item Value Reference Range Interpretation Comments POC-GLUCOSE METER 105 mg/dL 70-110 : TESTED A T [facility] 6720 (BEAKER) (test code = EL[place], 1538) [address]: Process Eng/Techni juan ID = [id number] for Bubba marcus (contract)Janet Prepare [id number] 23:54:00 Test Item Value Reference Range Interpretation Comments CROSSMATCH (test code = 2264) COMPATIBLE Unit ABO (test code = O Pos 5444306) UNIT NUMBER (test code = [id number] 934-0) Status (test code = 4569502) [place]_TIMEINCHART Blood Bank Product (test code RED BLOOD CELLS = 2263) PRODUCT CODE (test code = K5193T82 933-2) [facility] CenterPrepare [id number] 23:54:00 Test Item Value Reference Range Interpretation Comments CROSSMATCH (test code = 2264) COMPATIBLE Unit ABO (test code = O Pos 6815297) UNIT NUMBER (test code = [id number] 934-0) Status (test code = 1821755) [place]_TIMEINCHART Blood Bank Product (test code RED BLOOD CELLS = 2263) PRODUCT CODE (test code = F0556H66 933-2) [facility] CenterPOCT-GLUCOSE [id number] 18:08:29 Test Item Value Reference Range Interpretation Comments POC-GLUCOSE METER 163 mg/dL 70-110 H : TESTED A T [facility] 6720 (BEAKER) (test code = ELSI Mason [facility], 1538) [address]: Process Eng/Techni juan ID = [id number] for Mckay lala (contract)[place] min POCT-GLUCOSE [id number] 11:14:41 Test Item Value Reference Range Interpretation Comments POC-GLUCOSE METER 144 mg/dL 70-110 H : Notified RN/MD: (BEAKER) (test code = TESTED AT [facility] 6720 1538) [facility], [address]: Process Eng/Techni juan ID = [id number] for Vargas Tavarez (CELLAVISION MANUAL DIFF)2022-04-27 09:28:58 [...] CONCENTRATION Decreased (CELLAVISION)(BEAKER) (test code = 3438) Process Eng ID - Norma OverholtUser comments: Slide comments:CBC W/PLT COUNT & AUTO [id number] 09:28:57 Test Item Value Reference Range Interpretation [...] = 413) RAD, CHEST, 1 VIEW, NON [id number] 08:19:00Reason for exam:->post opShould this be performed at the bedside?->Yes [facility] 1935 Sex: FFINAL REPORT RAD, CHEST, 1 VIEW, NON DEPT INDICATION: post op COMPARISON: Prior day's exam FINDINGS: Portable frontal view of the chest. IMPRESSION: Support Lines: Right chest tubes. [place]bert tip overlies the pulmonary outflow tract. Lungs and pleura: Small bilateral effusions and brenton cent atelectasis. Unchanged small right apical pneumothorax. Heart and mediastinum: Stable contours.Stable surgical changes. Additional findings: None. Signed: Kyara Marcus Verified Date/Time: 04/27/2022 08:19:36 -GLUCOSE [id number] 07:49:42 Test Item Value Reference Range Interpretation Comments POC-GLUCOSE METER 121 mg/dL 70-110 H : Notified RN/MD: (DESIRE) (test code = TESTED AT [facility] 6720 1538) [facility], [address]: Process Eng/Techni juan ID = [id number] for Pa ppas, Laura [id number] 06:55:59 Test Item Value Reference Range Interpretation Comments PHOSPHORUS (DESIRE) (test code = 2.9 mg/dL 2.3-4.7 604) Process Eng ID - THERESA MBASIC METABOLIC [id number] 06:55:58 Test Item Value Reference Range Interpretation [...] S NOT APPLICABLE FOR DIALYSIS PATIEN TS. Process Eng ID - THERESA [id number] 06:55:58 Test Item Value Reference Range Interpretation Comments MAGNESIUM (BEAKER) (test code = 1.9 mg/dL 1.6-2.6 627) Process Eng ID - THERESA MOXYGEN SATURATION, [id number] 06:20:51 Test Item Value Reference Range Interpretation Comments O2 SATURATION (MEASURED) (BEAKER) 79.0 % (test code = 1455) Blood gas, [id number] 06:16:43 Test Item Value Reference Range Interpretation [...] 36 Lab Interpretation Abnormal (test code = 84587-6) [facility] CenterBlood gas, [id number] 06:16:43 Test Item Value Reference Range Interpretation [...] 36 Lab Interpretation Abnormal (test code = 25804-8) [facility] GAS, [id number] 06:16:43 Test Item Value Reference Range Interpretation [...] (BEAKER) (test code = 1819) 36.0 CALCIUM, [id number] 06:16:43 Test Item Value Reference Range Interpretation Comments CALCIUM IONIZED (BEAKER) (test 1.11 mmol/L 1.12-1.27 L code = 698) PH, BLOOD (BEAKER) (test code = 7.39 1810) POCT-GLUCOSE [id number] 00:36:03 Test Item Value Reference Range Interpretation Comments POC-GLUCOSE METER 133 mg/dL 70-110 H : TESTED A T [facility] 6720 (BEAKER) (test code [place], = 1538) [address]: Process Eng/Techni juan ID = [id number] for CADI ANG, GLORINEIL Prepare Leuko-Red [id number] 23:54:00 Test Item Value Reference Range Interpretation Comments CROSSMATCH (test code = 2264) COMPATIBLE Unit ABO (test code = O Pos 3874632) UNIT NUMBER (test code = [id number] 934-0) Status (test code = 7119326) [place]_TIMEINCHART Blood Bank Product (test code RED BLOOD CELLS = 2263) PRODUCT CODE (test code = O9067Q86 933-2) [facility] CenterPrepare Leuko-Red [id number] 23:54:00 Test Item Value Reference Range Interpretation Comments CROSSMATCH (test code = 2264) COMPATIBLE Unit ABO (test code = O Pos 5410949) UNIT NUMBER (test code = [id number] 934-0) Status (test code = 1452048) [place]_TIMEINCHART Blood Bank Product (test code RED BLOOD CELLS = 2263) PRODUCT CODE (test code = J2338A19 933-2) [facility] CenterRAD, CHEST, 1 VIEW, NON [id number] 21:54:00Reason for exam:->CT with new air leak - rightShould this be performed at the bedside?->[facility] : 1935 Sex: FFINAL REPORT [...] Stable contours. Additional findings: None. Signed: Kita Blancoepzaira Verified Date/Time: 04/26/2022 21:54:36 HEMOGLOBIN AND [id number] 20:43:14 Test Item Value Reference Range Interpretation Comments HEMOGLOBIN (BEAKER) (test code = 9.4 GM/DL 11.2-15.7 L 410) HEMATOCRIT (BEAKER) (test code = 28.1 % 34.1-44.9 L 411) Process Eng ID - 6000POCT-GLUCOSE [id number] 17:37:48 Test Item Value Reference Range Interpretation Comments POC-GLUCOSE METER 191 mg/dL 70-110 H : TESTED A T [facility] 6720 (BEAKER) (test code = EL[place], 1538) [address]: Process Eng/Techni juan ID = [id number] for Telma pina (contract), Ran ei RAD, CHEST, 1 VIEW, NON [id number] 12:57:00Reason for exam:->post washout, eval hemothoraxShould this be performed at the bedside?->Yes [facility] 1935 Sex: FFINAL REPORT TECHNIQUE: Frontal view of the chest. INDICATION: post washout, eval hemothorax. COMPARISON: 04/26/2022 at 1:47 AM and 04/25/2022 at 5:37 AM. FINDINGS: LINES/TUBES: Right IJ [place]-Albert catheter remains unchanged. There is been interval [...] change. No overt edema. Signed: Joanie Luis [facility] Verified Date/Time: 04/26/2022 12:57:33 Prepare [id number] 11:43:00 Test Item Value Reference Range Interpretation Comments Unit ABO (test code = O Pos 3440188) UNIT NUMBER (test code = [id number] 934-0) Status (test code = RETURNED FROM ISSUE 3619986) Blood Bank Product (test FFP code = 2263) PRODUCT CODE (test code = D3613A26 933-2) [facility] CenterPrepare [id number] 11:43:00 Test Item Value Reference Range Interpretation Comments Unit ABO (test code = O Pos 6360645) UNIT NUMBER (test code = [id number] 934-0) Status (test code = RETURNED FROM ISSUE 4479513) Blood Bank Product (test FFP code = 2263) PRODUCT CODE (test code = Y0507D19 933-2) [facility]ness CenterOXYGEN SATURATION, [id number] 11:30:33 Test Item Value Reference Range Interpretation Comments O2 SATURATION (MEASURED) (BEAKER) 74.9 % (test code = 1455) [id number] 11:25:52 Test Item Value Reference Range Interpretation Comments PHOSPHORUS (BEAKER) (test code = 2.8 mg/dL 2.3-4.7 604) Process Eng ID - THERESA MBASIC METABOLIC [id number] 11:25:51 Test Item Value Reference Range Interpretation [...] S NOT APPLICABLE FOR DIALYSIS PATIEN TS. Process Eng ID - THERESA [id number] 11:25:51 Test Item Value Reference Range Interpretation Comments MAGNESIUM (BEAKER) (test code = 2.0 mg/dL 1.6-2.6 627) Process Eng ID - THERESA MLactic Acid, [id number] 11:20:10 Test Item Value Reference Range Interpretation Comments Lactate, Art (test code = 0.7 mmol/L 0.5-2.2 2874) MISHA (test code = MISHA) Process Eng ID - THERESA Viveros Lab Interpretation (test Normal code = 19978-2) [facility]ness CenterLactic Acid, [id number] 11:20:10 Test Item Value Reference Range Interpretation Comments Lactate, Art (test code = 0.7 mmol/L 0.5-2.2 2874) MISHA (test code = MISHA) Process Eng ID - THERESA Viveros Lab Interpretation (test Normal code = 30970-2) [facility]ness CenterLACTIC ACID, [id number] 11:20:10 Test Item Value Reference Range Interpretation Comments LACTATE BLOOD ARTERIAL (2) 0.7 mmol/L 0.5-2.2 (BEAKER) (test code = 2874) Process Eng ID Brooklynn CARDENAS MPT/[id number] 11:18:48 Test Item Value Reference Range Interpretation [...] is 2.5-3.5 for patients with mechanical heart valves.[id number] 11:18:47 Test Item Value Reference Range Interpretation Comments FIBRINOGEN LEVEL (BEAKER) (test 405 mg/dl 225-434 code = 658) BLOOD GAS, [id number] 11:14:34 Test Item Value Reference Range Interpretation [...] (BEAKER) (test code = 1819) 40.0 CALCIUM, [id number] 11:14:28 Test Item Value Reference Range Interpretation [...] WBC 0-0 (test code = 413) CALCIUM, [id number] 09:26:35 Test Item Value Reference Range Interpretation Comments CALCIUM IONIZED (BEAKER) (test 1.10 mmol/L 1.12-1.27 L code = 698) PH, BLOOD (BEAKER) (test code = 7.48 1810) HGB/HCT (H&H)-Stat [id number] 09:26:34 Test Item Value Reference Range Interpretation Comments Hemoglobin (test code = 8.2 See_Comment L [Au tomated message] 786-4) The system [employer] generated this result transmitted ref erence range: 12.0 - 1 5.0 GM/DL. The refe rence range was not u sed to interpret this result as normal/abnor mal. Hematocrit (test code = 24.0 % 36.0-45.0 L 4544-3) Lab Interpretation (test Abnormal code = 94220-3) [facility] Na-Stat [id number] 09:26:34 Test Item Value Reference Range Interpretation Comments Sodium (test code = 2951-2) 133 meq/L 136-145 L Lab Interpretation (test code = Abnormal 72250-3) [facility] CenterHGB/HCT (H&H)-Stat [id number] 09:26:34 Test Item Value Reference Range Interpretation Comments Hemoglobin (test code = 8.2 See_Comment L [Au tomated message] 786-4) The system [employer] generated this result transmitted ref erence range: 12.0 - 1 5.0 GM/DL. The refe rence range was not u sed to interpret this result as normal/abnor mal. Hematocrit (test code = 24.0 % 36.0-45.0 L 4544-3) Lab Interpretation (test Abnormal code = 48617-5) [facility] Na-Stat [id number] 09:26:34 Test Item Value Reference Range Interpretation Comments Sodium (test code = 2951-2) 133 meq/L 136-145 L Lab Interpretation (test code = Abnormal 00254-8) [facility] NA-STAT [id number] 09:26:34 Test Item Value Reference Range Interpretation Comments SODIUM (BEAKER) (test code = 381) 133 meq/L 136-145 L HGB/HCT (H&H) - STAT [id number] 09:26:34 Test Item Value Reference Range Interpretation Comments HEMOGLOBIN (BEAKER) (test code = 8.2 GM/DL 12.0-15.0 L 410) HEMATOCRIT (BEAKER) (test code = 24.0 % 36.0-45.0 L 411) BLOOD GAS, [id number] 09:26:33 Test Item Value Reference Range Interpretation [...] (BEAKER) (test code = 1819) 60.0 Glucose-Stat [id number] 09:26:21 Test Item Value Reference Range Interpretation Comments Glucose (test code = 2345-7) 105 mg/dL 70-110 Lab Interpretation (test code = Normal 17010-2) [facility] CenterPotassium-Stat [id number] 09:26:21 Test Item Value Reference Range Interpretation Comments Potassium (test code = 2823-3) 3.7 meq/L 3.6-5.5 Lab Interpretation (test code = Normal 35279-1) [facility] CenterGlucose-Stat [id number] 09:26:21 Test Item Value Reference Range Interpretation Comments Glucose (test code = 2345-7) 105 mg/dL 70-110 Lab Interpretation (test code = Normal 86404-4) [facility] CenterPotassium-Stat [id number] 09:26:21 Test Item Value Reference Range Interpretation Comments Potassium (test code = 2823-3) 3.7 meq/L 3.6-5.5 Lab Interpretation (test code = Normal 27875-4) [facility] CenterGLUCOSE-STAT [id number] 09:26:21 Test Item Value Reference Range Interpretation Comments GLUCOSE RANDOM (DESIRE) (test code 105 mg/dL 70-110 = 652) POTASSIUM-STAT [id number] 09:26:21 Test Item Value Reference Range Interpretation Comments POTASSIUM (DESIER) (test code = 3.7 meq/L 3.6-5.5 379) RAD, CHEST, 1 VIEW, NON [id number] 07:33:00while patient is intubated or has chest tubes.Reason for exam:->Status post CV SurgeryShould thisbe performed at the bedside?->Yes [facility] 1935 Sex: FFINAL REPORT RAD, CHEST, 1 VIEW, NON DEPT INDICATION: Status post CV Surgery COMPARISON: Prior day's exam FINDINGS: Portable frontal view of the chest. IMPRESSION: Support Lines: [place] tip overlies the right pulmonary outflow tract. Right chest tube. Lungs and pleura: Loculated right hemothorax is better demonstrated on prior CT. Opacity within the right upper lung persists. Small pneumothorax component is not well seen on current radiograph. Heart and mediastinum: Stable contours. Stable surgical changes. Additional findings: None. Signed: Kyara Marcus Verified Date/Time: 04/26/2022 07:33:47 -GLUCOSE [id number] 06:00:43 Test Item Value Reference Range Interpretation Comments POC-GLUCOSE METER 113 mg/dL 70-110 H : TESTED A T [facility] 6720 (DESIRE) (test code = [place], 1538) [address]: Process Eng/Techni juan ID = [id number] for KEVYN SALGUERO [id number] 03:10:22 Test Item Value Reference Range Interpretation Comments PHOSPHORUS (BEAKER) (test code = 2.9 mg/dL 2.3-4.7 604) Process Eng ID - THERESA MBASIC METABOLIC [id number] 03:10:21 Test Item Value Reference Range Interpretation [...] S NOT APPLICABLE FOR DIALYSIS PATIEN TS. Process Eng ID - THERESA [id number] 03:10:21 Test Item Value Reference Range Interpretation Comments MAGNESIUM (BEAKER) (test code = 1.6 mg/dL 1.6-2.6 627) Process Eng ID - THERESA MCBC (HEMOGRAM ONLY)2022-04-26 02:27:34 [...] 0-0 (BEAKER) (test code = 413) CALCIUM, [id number] 02:18:11 Test Item Value Reference Range Interpretation Comments CALCIUM IONIZED (BEAKER) (test 1.13 mmol/L 1.12-1.27 code = 698) PH, BLOOD (BEAKER) (test code = 7.45 1810) POCT-GLUCOSE [id number] 00:01:48 Test Item Value Reference Range Interpretation Comments POC-GLUCOSE METER 131 mg/dL 70-110 H : TESTED A T [facility] 6720 (BEAKER) (test code = [place], 1538) [address]: Process Eng/Techni juan ID = [id number] for KEVYN SALGUERO Prepare [id number] 23:54:00 Test Item Value Reference Range Interpretation Comments Unit ABO (test code = O Pos 3714823) UNIT NUMBER (test code = [id number] 934-0) Status (test code = 6849464) [place]_TIMEINCHART Blood Bank Product (test code CRYOPRECIPITATE = 2263) PRODUCT CODE (test code = T9957P78 933-2) [facility] CenterPrepare [id number] 23:54:00 Test Item Value Reference Range Interpretation Comments Unit ABO (test code = 5788060) O Pos UNIT NUMBER (test code = [id number] 934-0) Status (test code = 2821192) [place]_TIMEINCHART Blood Bank Product (test code PLATELETS = 2263) PRODUCT CODE (test code = Q2135V78 933-2) [facility] CenterPrepare [id number] 23:54:00 Test Item Value Reference Range Interpretation Comments Unit ABO (test code = O Pos 6429930) UNIT NUMBER (test code = [id number] 934-0) Status (test code = 4635003) [place]_TIMEINCHART Blood Bank Product (test code CRYOPRECIPITATE = 2263) PRODUCT CODE (test code = T5127J97 933-2) [facility] CenterPrepare [id number] 23:54:00 Test Item Value Reference Range Interpretation Comments Unit ABO (test code = 3443856) O Pos UNIT NUMBER (test code = [id number] 934-0) Status (test code = 9325652) [place]_TIMEINCHART Blood Bank Product (test code PLATELETS = 2263) PRODUCT CODE (test code = A1323J72 933-2) [facility]ness CenterBASIC METABOLIC [id number] 19:28:22 Test Item Value Reference Range Interpretation [...] S NOT APPLICABLE FOR DIALYSIS PATIEN TS. Process Eng ID - HGLACTIC ACID, [id number] 18:55:34 Test Item Value Reference Range Interpretation Comments LACTATE BLOOD ARTERIAL (2) 0.9 mmol/L 0.5-2.2 (BEAKER) (test code = 2874) Process Eng ID - HGOXYGEN SATURATION, [id number] 18:44:34 Test Item Value Reference Range Interpretation Comments O2 SATURATION (MEASURED) (BEAKER) 60.5 % (test code = 1455) HEMOGLOBIN AND [id number] 18:42:34 Test Item Value Reference Range Interpretation Comments HEMOGLOBIN (BEAKER) (test code = 8.5 GM/DL 11.2-15.7 L 410) HEMATOCRIT (BEAKER) (test code = 24.5 % 34.1-44.9 L 411) Process Eng ID - 6000POCT-GLUCOSE [id number] 16:41:19 Test Item Value Reference Range Interpretation Comments POC-GLUCOSE METER 147 mg/dL 70-110 H : TESTED A T [facility] 6720 ([facility]) (test code [facility], = 1538) [address]: Process Eng/Techni juan ID = [id number] for Jim rizo (contract)Aaron PT/[id number] 13:29:52 Test Item Value Reference Range Interpretation [...] is 2.5-3.5 for patients with mechanical heart valves.[id number] 13:29:31 Test Item Value Reference Range Interpretation Comments FIBRINOGEN LEVEL (BEAKER) (test 380 mg/dl 225-434 code = 658) POCT-GLUCOSE [id number] 13:25:47 Test Item Value Reference Range Interpretation Comments POC-GLUCOSE METER 124 mg/dL 70-110 H : TESTED A T [facility] 6720 (BEAKER) (test code [place], = 1538) [address]: Process Eng/Techni juan ID = [id number] for Jim rizo (contract)Aaron CBC (HEMOGRAM ONLY)2022-04-25 [...] = 413) RAD, CHEST, 1 VIEW, NON [id number] 12:41:00while patient is intubated or has chest tubes.Reason for exam:->Status post CV SurgeryShould thisbe performed at the bedside?->Yes [facility] 1935 Sex: FFINAL REPORT RAD, CHEST, 1 VIEW, NON DEPT INDICATION: Status post CV Surgery COMPARISON: Prior day's exam FINDINGS: Portable frontal view of the chest. IMPRESSION: Support Lines: [place] tip overlies the right main pulmonary artery. Right chest tube. Lungs and pleura: Dense consolidation within the right upper lung is unchanged. No significant pneumothorax. Heart and mediastinum: Stable contours. Stable surgical changes. Additional findings: None. Signed: Kyara Marcus Verified Date/Time: 04/25/2022 12:41:59 Reading Location: [facility]iology Reading Room [id number] 12:02:08 Test Item Value Reference Range Interpretation Comments Scan Result (test code = See scanned report [id number]) MISHA (test code = MISHA) See scanned report [facility] CenterRotem2022-07-08 12:02:08 Test Item Value Reference Range Interpretation Comments Scan Result (test code = See scanned report [id number]) MISHA (test code = MISHA) See scanned report [facility] CenterMISCELLANEOUS LAB [id number] 12:02:08 Test Item Value Reference Range Interpretation Comments SCAN RESULT (test code = See scanned report [id number]) See scanned reportCT, CHEST, WITHOUT [id number] 11:18:00Unlisted Reason for Exam - Click Yes and Enter Reason Below->YesUnlisted Reason for Exam- >s/p CT surgery, concern for [facility]othorax [facility] : 1935 [...] nodes without IV contrast. Otherwise unremarkableCardiovascular: Small pneumopericardium.[place] catheter tip in the right interlobar [...] 04/25/2022 11:18:20 RAD, CHEST, 1 VIEW, NON [id number] 10:12:00Reason for exam:->RUL lung collapse [facility] 1935 Sex: FFINAL REPORT RAD, CHEST, 1 VIEW, NON DEPT INDICATION: RUL lung collapse COMPARISON: Prior day's exam FINDINGS: Portable frontal view of the chest. IMPRESSION: Support Lines: [place] tip overlies the right pulmonary outflow tract. Right chest tube. Lungs and pleura: Right upper lung opacity is unchanged. No significant pneumothorax. Heart and mediastinum: Stable contours. Stable surgical changes. Additional findings: None. Signed: Kyara Marcus Verified Date/Time: 04/25/2022 10:12:13 Reading Location: [facility] Radiology Reading Room CBC (HEMOGRAM ONLY)2022-04-25 09:55:40 [...] CELLS (BEAKER) (test code = 413) POCT-GLUCOSE [id number] 08:19:29 Test Item Value Reference Range Interpretation Comments POC-GLUCOSE METER 120 mg/dL 70-110 H : TESTED A T [facility] 6720 (BEAKER) (test code GE [facility], = 1538) [address]: Process Eng/Techni juan ID = [id number] for Jim rizo (contract) Aaron rodriguez Hematocrit-Stat [id number] 06:54:10 Test Item Value Reference Range Interpretation Comments Hematocrit (test code = 4544-3) 7.0 % 36.0-45.0 L Lab Interpretation (test code = Abnormal 71210-3) [facility] CenterHematocrit-Stat [id number] 06:54:10 Test Item Value Reference Range Interpretation Comments Hematocrit (test code = 4544-3) 7.0 % 36.0-45.0 L Lab Interpretation (test code = Abnormal 22099-5) [facility] CenterHEMATOCRIT-STAT [id number] 06:54:10 Test Item Value Reference Range Interpretation Comments HEMATOCRIT (BEAKER) (test code = 411) 7.0 % 36.0-45.0 L LACTIC ACID, [id number] 06:20:41 Test Item Value Reference Range Interpretation Comments LACTATE BLOOD VENOUS (2) (BEAKER) 0.68 mmol/L 0.50-2.20 (test code = 2872) Process Eng ID - THERESA MOperator ID - THERESA MPOCT-GLUCOSE [id number] 06:10:42 Test Item Value Reference Range Interpretation Comments POC-GLUCOSE METER 122 mg/dL 70-110 H : TESTED A T [place] [address] (BEAKER) (test code = [facility], 1538) [address]: Process Eng/Techni juan ID = [id number] for Bubba marcus (contract)Janet POC ACTIVATED CLOTTING [id number] 05:51:42 Test Item Value Reference Range Interpretation Comments Activated Clotting Time 126 sec : 74 -137 seconds, (test code = 3184-9) Baselin e: TESTED AT [address], [address]: Process Eng/Techni juan ID = [id number] for Le , Arnol [facility] ACTIVATED CLOTTING [id number] 05:51:42 Test Item Value Reference Range Interpretation Comments Activated Clotting Time 126 sec : 74 -137 seconds, (test code = 3184-9) Baselin e: TESTED AT [address], [address]: Process Eng/Techni juan ID = [id number] for Le , Arnol [id number] 05:51:42 Test Item Value Reference Range Interpretation Comments ACTIVATED CLOTTING TIME 126 sec : 74 -137 seconds, (BEAKER) (test code = Baseli ne: TESTED AT 441) [address], [address]: Process Eng/Techni juan ID = [id number] for Le , Arnol [id number] 05:51:42 Test Item Value Reference Range Interpretation Comments ACTIVATED CLOTTING TIME 590 sec : 74 -137 seconds, (BEAKER) (test code = Baseli ne: TESTED AT 441) [address], [address]: Process Eng/Techni juan ID = [id number] for Le , Arnol [id number] 05:51:41 Test Item Value Reference Range Interpretation Comments ACTIVATED CLOTTING TIME 654 sec : 74 -137 seconds, (BEAKER) (test code = Baseli ne: TESTED AT 441) [address], [facility] 30: Process Eng/Techni juan ID = [id number] for Le , Arnol [id number] 05:51:41 Test Item Value Reference Range Interpretation Comments ACTIVATED CLOTTING TIME 590 sec : 74 -137 seconds, (BEAKER) (test code = Baseli ne: TESTED AT 441) [address], [facility] 30: Process Eng/Techni juan ID = [id number] for Le , Arnol [id number] 05:51:06 Test Item Value Reference Range Interpretation Comments ACTIVATED CLOTTING TIME 115 sec : 74 -137 seconds, (BEAKER) (test code = Baseli ne: TESTED AT 441) [address], [facility] 30: Process Eng/Techni juan ID = [id number] for Le , Arnol [id number] 05:51:06 Test Item Value Reference Range Interpretation Comments ACTIVATED CLOTTING TIME 839 sec : 74 -137 seconds, (BEAKER) (test code = Baseli ne: TESTED AT 441) [address], [facility] 30: Process Eng/Techni juan ID = [id number] for Le , Arnol [id number] 05:51:05 Test Item Value Reference Range Interpretation Comments ACTIVATED CLOTTING TIME 654 sec : 74 -137 seconds, (BEAKER) (test code = Baseli ne: TESTED AT 441) [place] [address] 30: Process Eng/Techni juan ID = [id number] for Le , Arnol [id number] 04:43:22 Test Item Value Reference Range Interpretation Comments PARTIAL THROMBOPLASTIN TIME 33.3 seconds 22.5-36.0 (BEAKER) (test code = 760) [id number] 04:43:20 Test Item Value Reference Range Interpretation Comments FIBRINOGEN LEVEL (BEAKER) (test 304 mg/dl 225-434 code = 658) BLOOD GAS, [id number] 04:42:49 Test Item Value Reference Range Interpretation [...] (BEAKER) (test code = 1819) 40.0 PROTHROMBIN TIME/[id number] 04:42:42 Test Item Value Reference Range Interpretation Comments PROTIME (BEAKER) 17.0 seconds 11.9-14.2 H (test code = 759) INR (BEAKER) (test 1.41 See_Comment [Automat ed message] code = 370) The system Intertwine generated this result transmitted ref erence range: <=5.90. The reference range was not used to int erpret this result as normal/abnormal . RECOMMENDED COUMADIN/WARFARIN INR THERAPY RANGESSTANDARD DOSE: 2.0 - 3.0 Includes: PROPHYLAXIS for venous thrombosis, systemic embolization; TREATMENT for venous thrombosis and/or pulmonary embolus.HIGH RISK: Target INR is 2.5-3.5 for patients with mechanical heart valves.HEPATIC FUNCTION [id number] 04:23:33 Test Item Value Reference Range Interpretation [...] (test code = 13 U/L 6-55 347) Process Eng ID - THERESA MCALCIUM, [id number] 04:18:14 Test Item Value Reference Range Interpretation Comments CALCIUM IONIZED (BEAKER) (test 1.21 mmol/L 1.12-1.27 code = 698) PH, BLOOD (BEAKER) (test code = 7.34 1810) [id number] 03:50:20 Test Item Value Reference Range Interpretation Comments PHOSPHORUS (BEAKER) (test code = 4.0 mg/dL 2.3-4.7 604) Process Eng ID - THERESA MBASIC METABOLIC [id number] 03:50:19 Test Item Value Reference Range Interpretation [...] S NOT APPLICABLE FOR DIALYSIS PATIEN TS. Process Eng ID - THERESA [id number] 03:50:19 Test Item Value Reference Range Interpretation Comments MAGNESIUM (BEAKER) (test code = 1.9 mg/dL 1.6-2.6 627) Process Eng ID - THERESA MCBC (HEMOGRAM ONLY)2022-04-25 03:25:24 [...] WBC 0-0 (test code = 413) POCT-GLUCOSE [id number] 02:22:03 Test Item Value Reference Range Interpretation Comments POC-GLUCOSE METER 110 mg/dL 70-110 : TESTED A T [facility] 6720 (BEAKER) (test code = [facility], 153) [address]: Process Eng/Techni juan ID = [id number] for Bubba marcus (contract)Janet POCT-GLUCOSE [id number] 00:03:44 Test Item Value Reference Range Interpretation Comments POC-GLUCOSE METER 139 mg/dL 70-110 H : TESTED A T [facility] 6720 (BEAKER) (test code = [facility], 153) [address]: Process Eng/Techni juan ID = [id number] for KEVYN SALGUERO GLUCOSE-STAT [id number] 21:29:34 Test Item Value Reference Range Interpretation Comments GLUCOSE RANDOM (BEAKER) (test code 155 mg/dL 70-110 H = 652) HGB/HCT (H&H) - STAT [id number] 21:29:34 Test Item Value Reference Range Interpretation Comments HEMOGLOBIN (BEAKER) (test code = 8.9 GM/DL 12.0-15.0 L 410) HEMATOCRIT (BEAKER) (test code = 26.0 % 36.0-45.0 L 411) BLOOD GAS, [id number] 21:29:33 Test Item Value Reference Range Interpretation [...] 37.0 (test code = 1818) SODIUM NA-STAT [id number] 21:28:36 Test Item Value Reference Range Interpretation Comments SODIUM (BEAKER) (test code = 381) 139 meq/L 136-145 POTASSIUM-STAT [id number] 21:28:36 Test Item Value Reference Range Interpretation Comments POTASSIUM (BEAKER) (test code = 3.9 meq/L 3.6-5.5 379) [id number] 20:35:33 Test Item Value Reference Range Interpretation Comments MAGNESIUM (BEAKER) 2.1 mg/dL 1.6-2.6 Specimen slightly (test code = 627) hemolyzed Process Eng ID - DBBASIC METABOLIC [id number] 20:35:32 Test Item Value Reference Range Interpretation [...] S NOT APPLICABLE FOR DIALYSIS PATIEN TS. Process Eng ID - DBSpecimen slightly ictericLACTIC ACID, [id number] 20:31:26 Test Item Value Reference Range Interpretation Comments LACTATE BLOOD ARTERIAL (2) 1.2 mmol/L 0.5-2.2 (BEAKER) (test code = 2874) Process Eng ID - DBSpecimen slightly ictericGLUCOSE-STAT [id number] 20:09:05 Test Item Value Reference Range Interpretation Comments GLUCOSE RANDOM (BEAKER) (test code 147 mg/dL 70-110 H = 652) HGB/HCT (H&H) - STAT [id number] 20:09:05 Test Item Value Reference Range Interpretation Comments HEMOGLOBIN (BEAKER) (test code = 9.5 GM/DL 12.0-15.0 L 410) HEMATOCRIT (BEAKER) (test code = 28.0 % 36.0-45.0 L 411) BLOOD GAS, [id number] 20:09:04 Test Item Value Reference Range Interpretation [...] (BEAKER) 37.0 (test code = 1818) CALCIUM, [id number] 20:08:43 Test Item Value Reference Range Interpretation Comments CALCIUM IONIZED (BEAKER) (test 1.26 mmol/L 1.12-1.27 code = 698) PH, BLOOD (BEAKER) (test code = 7.43 1810) POTASSIUM-STAT [id number] 20:08:22 Test Item Value Reference Range Interpretation Comments POTASSIUM (BEAKER) (test code = 4.0 meq/L 3.6-5.5 379) SODIUM NA-STAT [id number] 20:08:21 Test Item Value Reference Range Interpretation [...] 961) ARTIFACT (CELLAVISION)(BEAKER) Present (test code = 6612) PLATELET CONCENTRATION Decreased (CELLAVISION)(BEAKER) (test code = 3438) Process Eng ID - Snorkelling Instructor (created by the system)User comments: Slide comments:CBC W/PLT COUNT & AUTO [id number] 18:18:06 Test Item Value Reference Range Interpretation [...] code = 2801) HGB/HCT (H&H) - STAT [id number] 18:15:30 Test Item Value Reference Range Interpretation Comments HEMOGLOBIN (BEAKER) (test code = 9.5 GM/DL 12.0-15.0 L 410) HEMATOCRIT (BEAKER) (test code = 28.0 % 36.0-45.0 L 411) BLOOD GAS, [id number] 18:15:29 Test Item Value Reference Range Interpretation [...] (BEAKER) (test code = 1819) 40.0 GLUCOSE-STAT [id number] 18:15:29 Test Item Value Reference Range Interpretation Comments GLUCOSE RANDOM (BEAKER) (test code 167 mg/dL 70-110 H = 652) SODIUM NA-STAT [id number] 18:15:23 Test Item Value Reference Range Interpretation Comments SODIUM (BEAKER) (test code = 381) 138 meq/L 136-145 POTASSIUM-STAT [id number] 18:15:23 Test Item Value Reference Range Interpretation Comments POTASSIUM (BEAKER) (test code = 3.6 meq/L 3.6-5.5 379) RAD, CHEST, 1 VIEW, NON [id number] 16:48:00Reason for exam:->s/p valve surgeryShould this be performed at the bedside?->Yes [facility] 1935 Sex: FFINAL [...] terminating below the left hemidiaphragm. Right IJ [place] catheter terminates in the distal right pulmonary artery. Right-sided chest tube is present. Minimal subcutaneous air is present within the right lower lateral chest wall. IMPRESSION: Postoperative changes with supporting lines and tubesin adequate position. Scattered right lung atelectasis is present. Signed: Tra Akbar MDRort Verified Date/Time: 04/24/2022 16:48:45 Reading Location: [facility] Radiology Reading Room BASI METABOLIC PANEL [...] S NOT APPLICABLE FOR DIALYSIS PATIEN TS. Process Eng ID Brooklynn QUINONES [id number] 16:20:36 Test Item Value Reference Range Interpretation Comments MAGNESIUM (BEAKER) 1.6 mg/dL 1.6-2.6 Specimen slightly (test code = 627) hemolyzed Process Eng ID - JONI [id number] 16:20:36 Test Item Value Reference Range Interpretation Comments PHOSPHORUS (BEAKER) 3.5 mg/dL 2.3-4.7 Specimen slightly (test code = 604) hemolyzed Process Eng GONZALO QUINONES LLACTIC ACID, [id number] 16:12:11 Test Item Value Reference Range Interpretation Comments LACTATE BLOOD 1.3 mmol/L 0.5-2.2 Specimen sligh tly ARTERIAL (2) (BEAKER) hemoly zed (test code = 2874) Process Eng ID - JONI [id number] 16:08:12 Test Item Value Reference Range Interpretation Comments PARTIAL THROMBOPLASTIN TIME 33.9 seconds 22.5-36.0 (BEAKER) (test code = 760) [id number] 16:07:51 Test Item Value Reference Range Interpretation Comments FIBRINOGEN LEVEL (BEAKER) (test 426 mg/dl 225-434 code = 658) PROTHROMBIN TIME/[id number] 16:07:30 Test Item Value Reference Range Interpretation Comments PROTIME (BEAKER) 17.1 seconds 11.9-14.2 H (test code = 759) INR (BEAKER) (test 1.42 See_Comment [Automat ed message] code = 370) The system Intertwine generated this result transmitted ref erence range: <=5.90. The reference range was not used to int erpret this result as normal/abnormal . RECOMMENDED COUMADIN/WARFARIN INR THERAPY RANGESSTANDARD DOSE: 2.0 - 3.0 Includes: PROPHYLAXIS for venous thrombosis, systemic embolization; TREATMENT for venous thrombosis and/or pulmonary embolus.HIGH RISK: Target INR is 2.5-3.5 for patients with mechanical heart valves.CALCIUM, [id number] 16:00:22 Test Item Value Reference Range Interpretation Comments CALCIUM IONIZED (BEAKER) (test 1.29 mmol/L 1.12-1.27 H code = 698) PH, BLOOD (BEAKER) (test code = 7.46 1810) BLOOD GAS, [id number] 16:00:22 Test Item Value Reference Range Interpretation [...] (test code = 1819) 60.0 OXYGEN SATURATION, [id number] 15:59:48 Test Item Value Reference Range Interpretation [...] WBC 0-0 (BEAKER) (test code = 413) [id number] 14:24:28 Test Item Value Reference Range Interpretation Comments PARTIAL THROMBOPLASTIN TIME 37.1 seconds 22.5-36.0 H (BEAKER) (test code = 760) [id number] 14:24:07 Test Item Value Reference Range Interpretation Comments FIBRINOGEN LEVEL (BEAKER) (test 290 mg/dl 225-434 code = 658) PROTHROMBIN TIME/[id number] 14:23:45 Test Item Value Reference Range Interpretation Comments PROTIME (BEAKER) 19.2 seconds 11.9-14.2 H (test code = 759) INR (BEAKER) (test 1.64 See_Comment [Automat ed message] code = 370) The system Intertwine generated this result transmitted ref erence range: <=5.90. The reference range was not used to int erpret this result as normal/abnormal . RECOMMENDED COUMADIN/WARFARIN INR THERAPY RANGESSTANDARD DOSE: 2.0 - 3.0 Includes: PROPHYLAXIS for venous thrombosis, systemic embolization; TREATMENT for venous thrombosis and/or pulmonary embolus.HIGH RISK: Target INR is 2.5-3.5 for patients with mechanical heart valves.Platelet [id number] 14:19:25 Test Item Value Reference Range Interpretation Comments Platelets (test code 139 See_Comment L [Autom ated = 777-3) message] The system which generated this result transmit minda reference range : 150 - 450 K/CU MM. The reference range was not u sed to interpret th is result as normal/abnormal . MISHA (test code = MISHA) Process Eng ID - [id number] Lab Interpretation Abnormal (test code = 55271-5) [facility] CenterPlatelet [id number] 14:19:25 Test Item Value Reference Range Interpretation Comments Platelets (test code 139 See_Comment L [Autom ated = 777-3) message] The system which generated this result transmit minda reference range : 150 - 450 K/CU MM. The reference range was not u sed to interpret th is result as normal/abnormal . MISHA (test code = MISHA) Process Eng ID - [id number] Lab Interpretation Abnormal (test code = 15491-6) [facility] CenterPLATELET [id number] 14:19:25 Test Item Value Reference Range Interpretation Comments PLATELET COUNT (BEAKER) (test 139 K/CU MM 150-450 L code = 756) Process Eng ID - [id number], [id number] 14:11:38 Test Item Value Reference Range Interpretation Comments CALCIUM IONIZED (BEAKER) (test 1.01 mmol/L 1.12-1.27 L code = 698) PH, BLOOD (BEAKER) (test code = 7.45 1810) POTASSIUM-STAT [id number] 14:11:06 Test Item Value Reference Range Interpretation Comments POTASSIUM (BEAKER) (test code = 3.1 meq/L 3.6-5.5 L 379) GLUCOSE-STAT [id number] 14:11:06 Test Item Value Reference Range Interpretation Comments GLUCOSE RANDOM (BEAKER) (test code 150 mg/dL 70-110 H = 652) HGB/HCT (H&H) - STAT [id number] 14:11:06 Test Item Value Reference Range Interpretation Comments HEMOGLOBIN (BEAKER) (test code = 10.8 GM/DL 12.0-15.0 L 410) HEMATOCRIT (BEAKER) (test code = 32.0 % 36.0-45.0 L 411) BLOOD GAS, [id number] 14:11:05 Test Item Value Reference Range Interpretation [...] (test code = 1819) 97.0 SODIUM NA-STAT [id number] 14:10:43 Test Item Value Reference Range Interpretation Comments SODIUM (BEAKER) (test code = 381) 136 meq/L 136-145 [id number] 13:59:03 Test Item Value Reference Range Interpretation Comments FIBRINOGEN LEVEL (BEAKER) (test 211 mg/dl 225-434 L code = 658) PROTHROMBIN TIME/[id number] 13:58:41 Test Item Value Reference Range Interpretation Comments PROTIME (BEAKER) 22.7 seconds 11.9-14.2 H (test code = 759) INR (BEAKER) (test 2.03 See_Comment [Automat ed message] code = 370) The system Intertwine generated this result transmitted ref erence range: <=5.90. The reference range was not used to int erpret this result as normal/abnormal . RECOMMENDED COUMADIN/WARFARIN INR THERAPY RANGESSTANDARD DOSE: 2.0 - 3.0 Includes: PROPHYLAXIS for venous thrombosis, systemic embolization; TREATMENT for venous thrombosis and/or pulmonary embolus.HIGH RISK: Target INR is 2.5-3.5 for patients with mechanical heart valves.[id number] 13:34:36 Test Item Value Reference Range Interpretation Comments PARTIAL THROMBOPLASTIN TIME 38.6 seconds 22.5-36.0 H (BEAKER) (test code = 760) [id number] 13:34:35 Test Item Value Reference Range Interpretation Comments FIBRINOGEN LEVEL (BEAKER) (test 185 mg/dl 225-434 L code = 658) PROTHROMBIN TIME/[id number] 13:33:54 Test Item Value Reference Range Interpretation Comments PROTIME (BEAKER) 26.1 seconds 11.9-14.2 H (test code = 759) INR (BEAKER) (test 2.42 See_Comment [Automat ed message] code = 370) The system Intertwine generated this result transmitted ref erence range: <=5.90. The reference range was not used to int erpret this result as normal/abnormal . RECOMMENDED COUMADIN/WARFARIN INR THERAPY RANGESSTANDARD DOSE: 2.0 - 3.0 Includes: PROPHYLAXIS for venous thrombosis, systemic embolization; TREATMENT for venous thrombosis and/or pulmonary embolus.HIGH RISK: Target INR is 2.5-3.5 for patients with mechanical heart valves.CALCIUM, [id number] 13:23:39 Test Item Value Reference Range Interpretation Comments CALCIUM IONIZED (BEAKER) (test 1.11 mmol/L 1.12-1.27 L code = 698) PH, BLOOD (BEAKER) (test code = 7.55 1810) HGB/HCT (H&H) - STAT [id number] 13:23:38 Test Item Value Reference Range Interpretation Comments HEMOGLOBIN (BEAKER) (test code = 8.6 GM/DL 12.0-15.0 L 410) HEMATOCRIT (BEAKER) (test code = 25.0 % 36.0-45.0 L 411) POTASSIUM-STAT [id number] 13:23:37 Test Item Value Reference Range Interpretation Comments POTASSIUM (BEAKER) (test code = 3.4 meq/L 3.6-5.5 L 379) GLUCOSE-STAT [id number] 13:23:37 Test Item Value Reference Range Interpretation Comments GLUCOSE RANDOM (BEAKER) (test code 159 mg/dL 70-110 H = 652) BLOOD GAS, [id number] 13:23:36 Test Item Value Reference Range Interpretation [...] (test code = 1819) 97.0 SODIUM NA-STAT [id number] 13:23:14 Test Item Value Reference Range Interpretation Comments SODIUM (BEAKER) (test code = 381) 137 meq/L 136-145 HGB/HCT (H&H) - STAT [id number] 12:07:22 Test Item Value Reference Range Interpretation Comments HEMOGLOBIN (BEAKER) (test code = 8.5 GM/DL 12.0-15.0 L 410) HEMATOCRIT (BEAKER) (test code = 25.0 % 36.0-45.0 L 411) BLOOD GAS, [id number] 12:07:21 Test Item Value Reference Range Interpretation [...] (BEAKER) (test code = 1819) 75.0 GLUCOSE-STAT [id number] 12:07:21 Test Item Value Reference Range Interpretation Comments GLUCOSE RANDOM (BEAKER) (test code 184 mg/dL 70-110 H = 652) POTASSIUM-STAT [id number] 12:06:48 Test Item Value Reference Range Interpretation Comments POTASSIUM (BEAKER) (test code = 3.7 meq/L 3.6-5.5 379) SODIUM NA-STAT [id number] 12:06:47 Test Item Value Reference Range Interpretation Comments SODIUM (BEAKER) (test code = 381) 135 meq/L 136-145 L PLATELET [id number] 11:55:07 Test Item Value Reference Range Interpretation Comments PLATELET COUNT 84 K/CU MM 150-450 L No clot, Pt i s in CV (BEAKER) (test code = OR. 756) Process Eng ID - [id number]-STAT [id number] 11:38:00 Test Item Value Reference Range Interpretation Comments GLUCOSE RANDOM (BEAKER) (test code 215 mg/dL 70-110 H = 652) HGB/HCT (H&H) - STAT [id number] 11:38:00 Test Item Value Reference Range Interpretation Comments HEMOGLOBIN (BEAKER) (test code = 8.5 GM/DL 12.0-15.0 L 410) HEMATOCRIT (BEAKER) (test code = 25.0 % 36.0-45.0 L 411) BLOOD GAS, [id number] 11:37:59 Test Item Value Reference Range Interpretation [...] (test code = 1819) 75.0 SODIUM NA-STAT [id number] 11:37:59 Test Item Value Reference Range Interpretation Comments SODIUM (BEAKER) (test code = 381) 133 meq/L 136-145 L POTASSIUM-STAT [id number] 11:37:43 Test Item Value Reference Range Interpretation Comments POTASSIUM (BEAKER) (test code = 4.4 meq/L 3.6-5.5 379) SODIUM NA-STAT [id number] 11:09:16 Test Item Value Reference Range Interpretation Comments SODIUM (BEAKER) (test code = 381) 134 meq/L 136-145 L GLUCOSE-STAT [id number] 11:09:16 Test Item Value Reference Range Interpretation Comments GLUCOSE RANDOM (BEAKER) (test code 226 mg/dL 70-110 H = 652) HGB/HCT (H&H) - STAT [id number] 11:09:16 Test Item Value Reference Range Interpretation Comments HEMOGLOBIN (BEAKER) (test code = 9.7 GM/DL 12.0-15.0 L 410) HEMATOCRIT (BEAKER) (test code = 29.0 % 36.0-45.0 L 411) BLOOD GAS, [id number] 11:09:15 Test Item Value Reference Range Interpretation [...] (BEAKER) (test code = 1819) 65.0 POTASSIUM-STAT [id number] 11:08:50 Test Item Value Reference Range Interpretation Comments POTASSIUM (BEAKER) (test code = 4.6 meq/L 3.6-5.5 379) HGB/HCT (H&H) - STAT [id number] 10:59:00 Test Item Value Reference Range Interpretation Comments HEMOGLOBIN (BEAKER) (test code = 7.6 GM/DL 12.0-15.0 L 410) HEMATOCRIT (BEAKER) (test code = 22.0 % 36.0-45.0 L 411) BLOOD GAS, [id number] 10:58:59 Test Item Value Reference Range Interpretation [...] (BEAKER) (test code = 1819) 65.0 GLUCOSE-STAT [id number] 10:58:59 Test Item Value Reference Range Interpretation Comments GLUCOSE RANDOM (BEAKER) (test code 206 mg/dL 70-110 H = 652) POTASSIUM-STAT [id number] 10:55:29 Test Item Value Reference Range Interpretation Comments POTASSIUM (BEAKER) (test code = 4.1 meq/L 3.6-5.5 379) SODIUM NA-STAT [id number] 10:55:28 Test Item Value Reference Range Interpretation Comments SODIUM (BEAKER) (test code = 381) 137 meq/L 136-145 BLOOD GAS, [id number] 10:27:14 Test Item Value Reference Range Interpretation [...] (BEAKER) (test code = 1819) 70.0 GLUCOSE-STAT [id number] 10:27:14 Test Item Value Reference Range Interpretation Comments GLUCOSE RANDOM (BEAKER) (test code 189 mg/dL 70-110 H = 652) HGB/HCT (H&H) - STAT [id number] 10:27:14 Test Item Value Reference Range Interpretation Comments HEMOGLOBIN (BEAKER) (test code = 7.9 GM/DL 12.0-15.0 L 410) HEMATOCRIT (BEAKER) (test code = 23.0 % 36.0-45.0 L 411) SODIUM NA-STAT [id number] 10:26:53 Test Item Value Reference Range Interpretation Comments SODIUM (BEAKER) (test code = 381) 135 meq/L 136-145 L POTASSIUM-STAT [id number] 10:26:53 Test Item Value Reference Range Interpretation Comments POTASSIUM (BEAKER) (test code = 3.5 meq/L 3.6-5.5 L 379) HGB/HCT (H&H) - STAT [id number] 08:10:46 Test Item Value Reference Range Interpretation Comments HEMOGLOBIN (BEAKER) (test code = 11.1 GM/DL 12.0-15.0 L 410) HEMATOCRIT (BEAKER) (test code = 33.0 % 36.0-45.0 L 411) POTASSIUM-STAT [id number] 08:10:41 Test Item Value Reference Range Interpretation Comments POTASSIUM (BEAKER) (test code = 3.4 meq/L 3.6-5.5 L 379) BLOOD GAS, [id number] 08:10:40 Test Item Value Reference Range Interpretation [...] (test code = 1819) 95.0 SODIUM NA-STAT [id number] 08:10:40 Test Item Value Reference Range Interpretation Comments SODIUM (BEAKER) (test code = 381) 134 meq/L 136-145 L CALCIUM, [id number] 08:10:34 Test Item Value Reference Range Interpretation Comments CALCIUM IONIZED (BEAKER) (test 1.13 mmol/L 1.12-1.27 code = 698) PH, BLOOD (BEAKER) (test code = 7.47 1810) GLUCOSE-STAT [id number] 08:10:34 Test Item Value Reference Range Interpretation Comments GLUCOSE RANDOM (BEAKER) (test code 104 mg/dL 70-110 = 652) SARS-CoV2/RT-PCR (Asymptomatic ONLY)2022-04-24 04:46:57 Test Item Value Reference Range Interpretation Comments SARS-COV2/RT-PCR Negative Not Detected, (test code = Negative, See 88548-3) external report for linked test SARS-COV-2 [facility] (test code = 19745-9) MISHA (test code = Negative result for [...] of the Act. Fact Sheet for Healthcare Providers:https://www.[employer]/sites/default/f stanley/product/documents/F act_Sheet_HC_Providers_L cfl_TRIV-TtY-7.pdf Fact Sheet for Healthcare Patients:https://www.[employer]/sites/default/fi les/product/documents/Fa ct_Sheet_Patients_Lyra_S ARS-CoV-2.pdf Performing Laboratory:[facility] [place] [address] [facility]As[facility]omatic ONLY[facility]2022-04-24 04:46:57 Test Item Value Reference Range Interpretation Comments SARS-COV2/RT-PCR Negative Not Detected, (test code = Negative, See 20611-3) external report for linked test SARS-COV-2 [facility] (test code = 68756-6) MISHA (test code = Negative result for [...] of the Act. Fact Sheet for Healthcare Providers:https://www.[employer]/sites/default/f stanley/product/documents/F act_Sheet_HC_Providers_L nxd_VODP-OjP-2.pdf Fact Sheet for Healthcare Patients:https://www.[employer]/sites/default/fi les/product/documents/Fa ct_Sheet_Patients_Lyra_S ARS-CoV-2.pdf Performing Laboratory:[facility] [place] [address] [facility] ([facility])2022-04-24 04:46:57 Test Item Value Reference Range Interpretation Comments SARS-COV2/RT-PCR (test Negative Not Detected, Negative, code = 5226865) See external report for linked test SARS-COV-2 PERFORMING [facility] (test code = 7298792) Negative result for this test determines that [...] of the Act.Fact Sheet for Healthcare Prov iders:https://www.[employer]/sites/default/files/product/documents/Fact_Sheet_HC _Rvjnjjkxc_Zmju_JZDR-MfJ-8.pdfFact Sheet for Healthcare Patients:https://www.[employer]/sites/default/files/product/docume nts/Zfcp_Vuriu_Fyfdnggc_Eztm_AIGE-LbV-2.pdfPerforming Laboratory:[facility], [place] [id number] 18:53:19 Test Item Value Reference Range Interpretation Comments PARTIAL THROMBOPLASTIN TIME 35.9 seconds 22.5-36.0 (BEAKER) (test code = 760) PROTHROMBIN [id number] 18:52:17 Test Item Value Reference Range Interpretation Comments PROTIME (BEAKER) 14.7 seconds 11.9-14.2 H (test code = 759) INR (BEAKER) (test 1.17 See_Comment [Automat ed message] code = 370) The system [employer] generated this result transmitted ref erence range: <=5.90. The reference range was not used to int erpret this result as normal/abnormal . RECOMMENDED COUMADIN/WARFARIN INR THERAPY RANGESSTANDARD DOSE: 2.0 - 3.0 Includes: PROPHYLAXIS for venous thrombosis, systemic embolization; TREATMENT for venous thrombosis and/or pulmonary embolus.HIGH RISK: Target INR is 2.5-3.5 for patients with mechanical heart valves.CBC W/PLT COUNT & AUTO [id number] 18:44:32 Test Item Value Reference Range Interpretation [...] 2801) SARS-COV2/RT-PCR ([facility])2022-04-22 21:00:47 Test Item Value Reference Range Interpretation Comments SARS-COV2/RT-PCR (test code = Negative Negative 8930898) Negative result for this test determines that [...] 564(g) of the Act.Testing was performed using [employer] SARS-CoV-2 assay.Fact Sheet for Healthcare Providers:https://www.[employer]Gen.youngblood/adelfo/RT SARS-CoV-2 HCP Fact Sheet 51- 178411.pdfFact Sheet for Healthcare Patients:https://www.[employer].youngblood/adelfo/RT SARS-CoV-2 Patient Fact Sheet EN 51-102678P2.pdfB-TYPE NATRIURETIC FACTOR (BNP) 2022-04-22 12:07:58 Test Item Value Reference Range Interpretation Comments B-TYPE NATRIURETIC PEPTIDE (BEAKER) 600 pg/mL 0-100 H (test code = 700) Process Eng ID - JONI LCOMPREHENSIVE METABOLIC [id number] 12:03:13 Test Item Value Reference Range Interpretation [...] S NOT APPLICABLE FOR DIALYSIS PATIEN TS. Process Eng ID - PIAYA LPROTHROMBIN TIME/[id number] 11:43:06 Test Item Value Reference Range Interpretation Comments PROTIME (BEAKER) 15.1 seconds 11.9-14.2 H (test code = 759) INR (BEAKER) (test 1.21 See_Comment [Automat ed message] code = 370) The system [employer] generated this result transmitted ref erence range: <=5.90. The reference range was not used to int erpret this result as normal/abnormal . RECOMMENDED COUMADIN/WARFARIN INR THERAPY RANGESSTANDARD DOSE: 2.0 - 3.0 Includes: PROPHYLAXIS for venous thrombosis, systemic embolization; TREATMENT for venous thrombosis and/or pulmonary embolus.HIGH RISK: Target INR is 2.5-3.5 for patients with mechanical heart valves.CBC W/PLT COUNT & AUTO [id number] 11:36:56 Test Item Value Reference Range Interpretation [...] (BEAKER) (test code = 2801) CT, CTA [id number] 15:27:00Unlisted Reason for Exam - Click Yes and Enter Reason Below->YesUnlisted Reason for Exam->Pre op planning, aortic anatomy and cannulation site identification, severe MR, severe TR [facility] : 1935 Sex: FAddendum BeginsREPORT STATUS:A Addendum: I agree with the previously described non vascular findings. Sigmoid diverticulosis, without evidence for diverticulitis. Signed: Jose Ramon Soares MDReport Verified Date/Time: 04/18/2022 15:27:52 Reading Location: [facility] Reading Room - [facility] 1.310.12Addendum EndsFINAL REPORT CT angiography of [...] An addendum will be dictated by the Cd Reactor Operator Radiologist regarding the nonvascular findings. THE REPORT WILL ONLY BE CONSIDERED COMPLETE AFTER THE ADDENDUM HAS BEEN DICTATED. Signed: Fabrizio Cardona MDReport Verified Date/Time: 04/17/2022 16:14:11 CT, CTA, [id number] 15:27:00Unlisted Reason for Exam - Click Yes and Enter Reason Below->YesUnlisted Reason for Exam->Pre op planning, aortic anatomy and cannulation site identification, severe MR, [facility] : 1935 Sex: FAddendum BeginsREPORT STATUS:A Addendum: I agree with the previously described non vascular findings. Sigmoid diverticulosis, without evidence for diverticulitis. Signed: Jose Ramon Soares MDReport Verified Date/Time: 04/18/2022 15:27:52 Reading Location: [facility] Reading Room - [facility] 1.310.12Addendum EndsFINAL REPORT CT angiography of the thoracoabdominal aorta and pelvic arteries, 16-Apr-22 INDICATION: This is a 86 year old female with with severe mitral regurgitation tricuspid regurgitation, presents for preoperative assessment, for aortic anatomyand cannulation site. TECHNIQUE: Spiral acquisition before and during intravenous contrast administra tion using a [employer] multidetector CT scanner. Images were obtained before [...] An addendum will be dictated by the Cd Reactor Operator Radiologist regarding the nonvascular findings. THE REPORT WILL ONLY BE CONSIDER ED COMPLETE AFTER THE ADDENDUM HAS BEEN DICTATED. Signed: Fabrizio Cardona Verified Date/Time: 04/17/2022 16:14:11 [id number] 10:19:24 Test Item Value Reference Range Interpretation Comments POC-Creatinine (test 1.0 mg/dL 0.6-1.3 : TESTE D AT [facility] 1317 code = 01841-7) [place] [address]: Process Eng/Techni juan ID = [id number] for Sandip -Hue, Rebecca POC-EGFR (test code 53 mL/min/1.73M2 = 99463-0) [facility]-[id number] 10:19:24 Test Item Value Reference Range Interpretation Comments POC-Creatinine (test 1.0 mg/dL 0.6-1.3 : TESTE D AT [facility] 1317 code = 14891-6) [place] [address]: Process Eng/Techni juan ID = [id number] for Sandip -Hue, Rebecca POC-EGFR (test code 53 mL/min/1.73M2 = 92966-9) [facility]-[id number] 10:19:24 Test Item Value Reference Range Interpretation Comments POC-CREATININE 1.0 mg/dL 0.6-1.3 : [facility] ([facility]) (test [facility], code = 1859) [place] [address]: Process Eng/Techni juan ID = [id number] for Sandip-Hue, Rebecca POC-EGFR 53 mL/min/1.73M2 ([facility]) (test code = 1860) - XR CHEST 2 [id number] 00:00:00 [facility] : 1935 Sex: FFAX: Chace Sanz MD [phone] [place]: St: [facility] FAX: Christel Alvarez Name: [facility]: 1935 Age/S: 86/F [address] [place] [address] Unit #: [id number] Loc: [place], [place] [address]Eqpo: Christel Alvarez EMPLOYEE COMMUNICATIONS SPECIALIST Acct: [id number] Dis Date: Status: [facility] PHONE #: [phone] Exam Date: 04/01/2022 1624 FAX #: [phone] Reason: PREOP EXAMS: CPT CODE: [id number] XR CHEST 2 V 15801 PROCEDURE INFORMATION: Exam: XR Chest Exam date and time: 04/01/2022 3:57 PM Age: 86 years old Clinical indication: Screening exam; Pre-operative exam; Cardiovascular screening; Additional info: Preop TECHNIQUE: Imaging protocol: Radiologic exam of the chest. Views: 2 views. COMPARISON: No relevantprior studies available. FINDINGS: Lungs: No focal consolidations. Pleural spaces: Unremarkable. Nopleural effusion. No pneumothorax. Heart/Mediastinum: Unremarkable. Vasculature: Aortic atherosclerot ic calcifications. Bones/joints: Diffuse osseous demineralization. IMPRESSION: No acute cardiopulmonary abnormalities. at 0739 Reported and signed by: Vazquez Amaro M.D. CC: Chace Nava MD; Christel Alvarez NP Technologist: Nazanin Martinez RT(R) Trnscrd Date/Time/By: 04/02/2022 (2911) : By: [email or web address] Orig Print D/T: S: 04/02/2022 (6092) PAGE 1 Signed ReportCOVID 19 Asymptomatic IH AG 2022-04-01 19:00:00 Test Item Value Reference Range Interpretation [...] high or waivedcomplexit y tests. BASIC METABOLIC [id number] 16:31:00 Test Item Value Reference Range Interpretation [...] = 9.7 mg/dL 8.0-10.5 N CA) PROTHROMBIN [id number] 16:29:00 Test Item Value Reference Range Interpretation Comments PROTHROMBIN TIME 19.7 SECONDS 9.3-12.9 H PATIENT (test code = PTP) INTERNATIONAL NORMAL 1.8 0.8-1.2 H TARGE T INR BY RATIO (test code = INDICATIO [...] (to prevent recurrent infar ct). CBC W/AUTO [id number] 16:22:00 Test Item Value Reference Range Interpretation [...] 0.00 x10 3/uL 0.0-0.1 N NRBC#) SARS-COV2/RT-PCR ([facility])2020-04-28 10:18:00 Test Item Value Reference Range Interpretation Comments SARS-COV2/RT-PCR (test code = Negative Not Detected, Negative 8702423) SARS-COV-2 PERFORMING LAB [facility] (test code = 0150734) Negative result for this test determines that [...] of the Act.Fact Sheet for Healthcare Prov iders:https://www.[employer]/sites/default/files/product/documents/Fact_Sheet_HC _Vderrlroq_Vdpc_NFIS-ZuZ-7.pdfFact Sheet for Healthcare Patients:https://www.[employer]/sites/default/files/product/docume nts/Wkxo_Jwcvj_Wyauxwfn_Hxhp_QDUA-HeQ-5.pdfPerforming Laboratory:[place] [address] [place] [address]- MRI L-SPINE W/O CONT 2019-12-05 13:16:00 Patient Name: SCARLETT SMILEY Unit No: [id number] EXAMS: CPT CODE: [id number] MRI L-SPINE W/O CONT 15360 TECHNIQUE: Multiplanar, multisequence MRI examination performed of [...] Bartolo Brumfield M.D. [facility] NAME: SCARLETT SMILEY [address] [facility] PHYS: Lobo Villalba MD : 1935 AGE: 84 SEX: F [place], [place] [address] LOC: Y.MRI PHONE #: [phone] EXAM DATE:12/02/2019 STATUS: DEP CLI FAX #: [phone] RAD #: D/C DT PAGE 1 Signed Report (CONTINUED) Patient Name: SCARLETT SMILEY Unit No: [id number] EXAMS: CPT CODE: [id number] MRI L-SPINE W/O CONT 94458(Continued) CC: Richi Sanchez M.D. Technologist: AMRIK FORD, MRI Transcribed D/ (1316) Indu [facility] NAME: SCARLETT SMILEYNISHA [address] [place] [address] PHYS: Lobo Villalba MD : 1935 AGE: 84 SEX: F [place] [address] LOC: Y.MRI PHONE #: [phone] EXAM DATE: 12/02/2019 STATUS: DEP CLI FAX #: [phone] RAD #: D/C DTPAGE 2 Signed Report Patient Name: SCARLETT SMILEY Unit No: [id number] EXAMS: CPT CODE: [id number] MRI L-SPINE W/O CONT 55534 (Continued) Orig Print D/T: S: 12/05/2019 (1320) [facility] NAME: SCARLETT SMILEY [address] PHYS: Lobo Villalba MD : 1935 AGE: 84 SEX: F [place] [address] LOC: Y.MRI PHONE #: [phone] EXAM DATE: 12/02/2019 STATUS: DEP CLI FAX #: [phone] RAD #: D/C DT PAGE 3 Signed Report
--- NOTE | 2023-07-10 14:32 | EDPHYS ---
Physician Documentation [facility] Name: Scarlett Garrett Age: 88 yrs Sex: Female : 1935 Arrival Date: 07/10/2023 Time: 14:13 Bed 5 Private MD: ED Physician Herbert Rodriges HPI: 07/10 14:28 This 88 yrs old Female presents to ER via Unassigned with complaints of Arm Infection. rn 14:28 The patient presents with cellulitis of the left arm. Onset: The symptoms/episode rn began/occurred 3 day(s) ago. Possible cause(s): cat bite. Associated signs and symptoms: Pertinent positives: erythema, swelling, Pertinent negatives: fever. Severity of symptoms: At their worst the symptoms were moderate, in the emergency department the symptoms are actually worse. The patient has not experienced similar symptoms in the past. The patient has been recently seen at the [facility] Emergency Department. Reports returns for worsening infection of the arm. Reports bitten by her cat 3 days ago. Seen here, given antibiotics, total of 3 doses of antibiotics with spreading of erythema and warmth. Reports chills. Reports generalized malaise and weakness.. Historical: - Allergies: 14:35 Cipro; hb 14:35 Levaquin; hb - PMHx: 16:32 Hypertension; severe tricuspid valve regurgitation; Hypothyroidism; Arthritis; Atrial mb9 Fib; mitral valve; Depression; - PSHx: 16:32 Pacemaker placement; Valve replacement; mb9 - Immunization history:: Adult Immunizations up to date. - Social history:: Smoking status: Patient denies any tobacco usage or history of. - Family history:: not pertinent. - Hospitalizations: : No recent hospitalization is reported. ROS: 14:28 Constitutional: Negative for fever, chills, and weight loss, Cardiovascular: Negative rn for chest pain, palpitations, and edema, Respiratory: Negative for shortness of breath, cough, wheezing, and pleuritic chest pain, MS/Extremity: Positive for cat bite to the left hand/wrist with swelling towards the elbow Neuro: Negative for weakness, numbness, tingling Exam: 14:28 Constitutional: This is a well developed, well nourished patient who is awake, alert, rn and in no acute distress. MS/ Extremity: Pulses equal, no cyanosis. Neurovascular intact. Full, normal range of motion. Confluent erythema warmth from the dorsum of the left hand three quarters [address] way to left elbow. No fluctuance. Moderate edema. No crepitus. No open wounds or bleeding. 16:45 ECG was reviewed by the Attending Physician. rn Vital Signs: 14:25 BP 70 / 46; Pulse 58; Resp 16; Temp 97.9(TE); Pulse Ox 96% on R/A; Weight 65.32 kg; hb Height 5 ft. 9 in. ; Pain 8/10; 15:00 BP 82 / 46; rn 15:08 BP 78 / 46; Pulse 61; Resp 16; Pulse Ox 99% on R/A; mb9 15:50 BP 74 / 52; Pulse 60; Resp 14; Pulse Ox 95% on 3 lpm NC; mb9 15:55 BP 88 / 52; Pulse 69; Resp 18; Pulse Ox 100% on 3 lpm NC; jl7 16:20 BP 89 / 53; Pulse 60; Resp 16; Pulse Ox 100% on 2 lpm NC; mb9 16:23 BP 93 / 57; rn 16:27 BP 93 / 57; Pulse 61; Resp 15; Pulse Ox 99% on 2 lpm NC; mb9 16:35 BP 96 / 70; Pulse 60; Resp 16; Pulse Ox 100% on 2 lpm NC; mb9 16:53 BP 95 / 64; rn 14:25 Body Mass Index 21.27 (65.32 kg, 175.26 cm) hb 14:25 Pain Scale: Adult hb MDM: 14:16 Patient medically screened. rn 14:28 Differential diagnosis: cellulitis. Data reviewed: vital signs, nurses notes, old rn medical records, and as a result, I will discharge patient. Counseling: I had a detailed discussion with the patient and/or guardian regarding the historical points, exam findings, and any diagnostic results supporting the discharge/admit diagnosis, the need for further work-up and treatment in the hospital. 15:41 ED course: I personally spent 35 minutes engaged in work directly related to the rn individual patient's care. This does not include any time spent performing procedures. The patient has been deemed critically ill because of worsening infection and hypotension requiring fluid boluses and IV antibiotics.. 16:39 ED course: Blood pressure responding well to fluids. Explained antibiotics rn administered. Normal lactate.. 16:54 ED course: Sepsis reevaluation complete. rn 16:59 ED course: Patient observed closely in the ER to make sure she did not need a central rn line placement. Blood pressure responded well and slowly increasing after IV fluid administration. Patient still has a little bit of fluid to go in the fluid bolus. No indication for central line placement in the ER at this time, patient is being taken up right now to floor bed.. 07/10 14:23 Order name: Blood Culture Adult (2) rn 07/10 14:23 Order name: CBC with Diff rn 07/10 14:23 Order name: CMP rn 07/10 14:23 Order name: Lactate w/ 2H reflex if indic. rn 07/10 14:23 Order name: Protime (+inr) rn 07/10 14:23 Order name: Ptt, Activated rn 07/10 15:12 Order name: Comprehensive Metabolic Panel; Complete Time: 15:42 EDCT 07/10 15:12 Order name: Lactate w/ 2H reflex if indic.; Complete Time: 15:42 EDCT 07/10 15:12 Order name: CBC with Automated Diff; Complete Time: 15:42 EDCT 07/10 15:12 Order name: Protime (+INR); Complete Time: 15:42 EDMS 07/10 15:12 Order name: PTT, Activated Partial Thromb; Complete Time: 15:42 EDMS 07/10 15:15 Order name: Blood Culture EDCT 07/10 15:15 Order name: Blood Culture EDCT 07/10 15:50 Order name: Urinalysis w/ reflexes EDCT 07/10 15:50 Order name: Basic Metabolic Panel EDCT 07/10 15:50 Order name: Basic Metabolic Panel EDCT 07/10 15:50 Order name: Basic Metabolic Panel EDCT 07/10 15:50 Order name: Basic Metabolic Panel EDCT 07/10 15:50 Order name: CBC with Automated Diff EDMS 07/10 15:50 Order name: CBC with Automated Diff EDMS 07/10 15:50 Order name: CBC with Automated Diff EDMS 07/10 15:50 Order name: CBC with Automated Diff EDMS 07/10 15:50 Order name: Magnesium EDMS 07/10 15:50 Order name: Magnesium EDMS 07/10 15:50 Order name: Magnesium EDMS 07/10 15:50 Order name: Magnesium EDMS 07/10 15:50 Order name: Phosphorus EDMS 07/10 15:50 Order name: Phosphorus EDMS 07/10 15:50 Order name: Phosphorus EDMS 07/10 15:50 Order name: Phosphorus EDMS 07/10 14:23 Order name: EKG; Complete Time: 15:16 rn 07/10 15:50 Order name: Heart Healthy EDMS 07/10 14:23 Order name: Accucheck; Complete Time: 15:13 rn 07/10 14:23 Order name: Cardiac monitoring; Complete Time: 15:13 rn 07/10 14:23 Order name: EKG - Nurse/Tech; Complete Time: 15:50 rn 07/10 14:23 Order name: IV Saline Lock - Large Bore; Complete Time: 15:13 rn 07/10 14:23 Order name: Labs collected and sent; Complete Time: 15:13 rn 07/10 14:23 Order name: O2 Per Protocol; Complete Time: 14:40 rn 07/10 14:23 Order name: O2 Sat Monitoring; Complete Time: 14:40 rn 07/10 14:23 Order name: Vital Signs; Complete Time: 15:13 rn EC:45 Rate is 60 beats/min. Rhythm is regular. QRS [place] is Normal. OK interval is prolonged rn at 408 msec. QRS interval is normal. QT interval is normal. No Q waves. T waves are Normal. No ST changes noted. Clinical impression: 1st degree heart block. Interpreted by me. Reviewed by me. Administered Medications: 15:00 Drug: NS 0.9% IV (30 ml/kg) 30 ml/kg IV at bolus once; Sepsis Protocol Route: IV; Rate: mb9 bolus; Site: right hand; 15:45 Drug: Cefepime IVPB 1 grams IVPB at 200 ml/hr once over 30 mins; (mix in NS 100 mL) mb9 Route: IVPB; Rate: 200 ml/hr; Infused Over: 30 mins; Site: right hand; 16:20 Follow up: Response: No adverse reaction; IV Status: Completed infusion mb9 16:19 Drug: vancoMYCIN IVPB 1 grams IVPB once over 2 hrs Route: IVPB; Infused Over: 2 hrs; mb9 Site: right hand; Disposition Summary: 07/10/23 14:32 Hospitalization Ordered Notes: Hospitalization Status: Inpatient Admission rn [facility] Condition: Stable rn Problem: new rn Symptoms: have worsened rn Bed/Room Type: Standard rn Provider: Yuliya Lemus(07/10/23 15:41) rn Room Assignment: [facility](07/10/23 16:10) eb Diagnosis - Cellulitis of left upper limb rn - Bitten by cat rn - Failure of outpatient therapy rn Forms: - Medication Reconciliation Form rn - SBAR form rn - Leadership Thank You Letter research program intern time excluding procedures: 15:40 Critical care time: Bedside Care: 35 minutes. Total time: 35 minutes rn Signatures: Dispatcher [employer] EDHerbert Ballard MD MD rn Baxter, Heather, RN RN hb Botello, Elizabeth eb Breneman, Mary Beth, RN RN mb9 Corrections: (The following items were deleted from the chart) 15:41 14:32 Aurelio Venegas rn rn 16:10 14:32 mildred guerrero
[2023-07-10] MEDS ORDERED: NA CHLORIDE 0.9% 250 ML ONE (15:05)
[2023-07-10] MEDS ORDERED: VANCOMYCIN 1 GM/VIAL ONE (15:05)
[2023-07-10] MEDS ORDERED: NA CHLORIDE 0.9% 2,000 ML ONE (15:05)
[2023-07-10 15:16] LABS: Absolute Lymphocytes (CBC) 0.5 K/uL (0.7-4.9); Hematocrit 31.1 % (36.0-45.0); MCV 98.7 fL (80-100); MPV 7.4 fL (7.6-11.3); Platelets 185 thou/uL (152-406); RBC Red Blood Cell Count 3.15 M/uL (3.86-4.86)
[2023-07-10 15:21] LABS: Protime INR 0.95
[2023-07-10] MEDS ORDERED: CEFEPIME 1 GM/VIAL ONE (15:25)
[2023-07-10] MEDS ORDERED: NA CHLORIDE 0.9% 100 ML ONE (15:25)
[2023-07-10 15:38] LABS: Albumin 3.2 g/dL (3.4-5.0); Bilirubin Total 0.4 mg/dL (0.2-1.0); Potassium 4.4 mEq/L (3.5-5.1); Protein, Total 6.5 g/dL (6.4-8.2)
[2023-07-10] MEDS ORDERED: ACETAMINOPHEN 500 MG TAB PO PRN (15:45)
[2023-07-10] MEDS ORDERED: ALBUTEROL 2.5 MG/3 ML NEB SOL NEB PRN (15:45)
--- NOTE | 2023-07-10 16:54 | ER ---
Nurse's Notes [facility] Name: Scarlett Garrett Age: 88 yrs Sex: Female : 1935 Arrival Date: 07/10/2023 Time: 14:13 Bed 5 Private MD: Diagnosis: Cellulitis of left upper limb;Bitten by cat;Failure of outpatient therapy Presentation: 07/10 14:25 Chief complaint: Redness and swelling after bit by cat 3 days ago. Coronavirus screen: hb At this time, the client does not indicate any symptoms associated with coronavirus-19. Ebola Screen: No symptoms or risks identified at this time. Initial Sepsis Screen: Does the patient meet any 2 criteria? Systolic BP < 90 mmHg. No. Patient's initial sepsis screen is negative. Does the patient have a suspected source of infection? Yes: Skin breakdown/wound. Risk Assessment: Do you want to hurt yourself or someone else? Patient reports no desire to harm self or others. Onset of symptoms was July 08, 2023. 14:25 Method Of Arrival: Wheelchair hb 14:25 Acuity: VANESA 2 hb Historical: - Allergies: 14:35 Cipro; hb 14:35 Levaquin; hb - PMHx: 16:32 Hypertension; severe tricuspid valve regurgitation; Hypothyroidism; Arthritis; Atrial mb9 Fib; mitral valve; Depression; - PSHx: 16:32 Pacemaker placement; Valve replacement; mb9 - Immunization history:: Adult Immunizations up to date. - Social history:: Smoking status: Patient denies any tobacco usage or history of. - Family history:: not pertinent. - Hospitalizations: : No recent hospitalization is reported. Screenin:09 [facility] ED Fall Risk Assessment (Adult) History of falling in the last 3 months, mb9 including since admission No falls in past 3 months (0 pts) Confusion or Disorientation No (0 pts) Intoxicated or Sedated No (0 pts) Impaired Gait No (0 pts) Mobility Assist Device Used No (0 pt) Altered Elimination No (0 pt) Score/Fall Risk Level 0 - 2 = Low Risk Oriented to surroundings, Maintained a safe environment, Educated pt \T\ family on fall prevention, incl call for assistance when getting out of bed. Abuse screen: Denies threats or abuse. Nutritional screening: No deficits noted. Tuberculosis screening: No symptoms or risk factors identified. Assessment: 15:09 General: Appears uncomfortable, Behavior is calm, cooperative. Pain: Complains of pain mb9 in left arm. Neuro: Krishnamurthy Agitation-Sedation Scale (RASS): 0 - Alert and Calm Level of Consciousness is awake, alert, obeys commands, Oriented to person, place, time, situation, Appropriate for age. Cardiovascular: Heart tones S1 S2 present Patient's skin is warm and dry. Respiratory: Airway is patent Respiratory effort is even, unlabored, Respiratory pattern is regular, symmetrical, Breath sounds are clear bilaterally. GI: Abdomen is flat, non-distended, Bowel sounds present X 4 quads. Abd is soft and non tender X 4 quads. : No signs and/or symptoms were reported regarding the genitourinary system. EENT: No signs and/or symptoms were reported regarding the EENT system. Derm: Wound noted left arm. Musculoskeletal: Swelling present in left FA. 16:15 Reassessment: Patient and/or family updated on plan of care and expected duration. Pain mb9 level reassessed. Patient is alert, oriented x 3, equal unlabored respirations, skin warm/dry/pink. Patient states feeling better. Patient states symptoms have improved. Vital Signs: 14:25 BP 70 / 46; Pulse 58; Resp 16; Temp 97.9(TE); Pulse Ox 96% on R/A; Weight 65.32 kg; hb Height 5 ft. 9 in. ; Pain 8/10; 15:00 BP 82 / 46; rn 15:08 BP 78 / 46; Pulse 61; Resp 16; Pulse Ox 99% on R/A; mb9 15:50 BP 74 / 52; Pulse 60; Resp 14; Pulse Ox 95% on 3 lpm NC; mb9 15:55 BP 88 / 52; Pulse 69; Resp 18; Pulse Ox 100% on 3 lpm NC; jl7 16:20 BP 89 / 53; Pulse 60; Resp 16; Pulse Ox 100% on 2 lpm NC; mb9 16:23 BP 93 / 57; rn 16:27 BP 93 / 57; Pulse 61; Resp 15; Pulse Ox 99% on 2 lpm NC; mb9 16:35 BP 96 / 70; Pulse 60; Resp 16; Pulse Ox 100% on 2 lpm NC; mb9 16:53 BP 95 / 64; rn 14:25 Body Mass Index 21.27 (65.32 kg, 175.26 cm) hb 14:25 Pain Scale: Adult hb ED Course: 14:15 Patient arrived in ED. rg4 14:16 Herbert Rodriges MD is Attending Physician. rn 14:31 Aurelio Venegas is Hospitalizing Provider. rn 14:35 Triage completed. hb 14:35 Arm band placed on. hb 15:00 Missed attempt(s): 22 gauge in right antecubital area. Bleeding controlled, band aid mb9 applied, catheter tip intact. 15:09 Placed in gown. Bed in low position. Call light in reach. Side rails up X 1. Client mb9 placed on continuous cardiac and pulse oximetry monitoring. NIBP monitoring applied. traveling engineer on. 15:10 No provider procedures requiring assistance completed. Inserted saline lock: 22 gauge mb9 in right hand, using aseptic technique. 15:32 Scarlett Brink RN is Primary Nurse. mb9 15:41 Yuliya Lemus MD is Hospitalizing Provider. rn 15:49 Blood Culture Sent. mb9 15:49 Blood Culture Sent. mb9 15:49 EKG done, by ED staff, reviewed by Herbert Rodriges MD. mb9 16:36 Patient admitted, IV remains in place. mb9 Administered Medications: 15:00 Drug: NS 0.9% IV (30 ml/kg) 30 ml/kg IV at bolus once; Sepsis Protocol Route: IV; Rate: mb9 bolus; Site: right hand; 15:45 Drug: Cefepime IVPB 1 grams IVPB at 200 ml/hr once over 30 mins; (mix in NS 100 mL) mb9 Route: IVPB; Rate: 200 ml/hr; Infused Over: 30 mins; Site: right hand; 16:20 Follow up: Response: No adverse reaction; IV Status: Completed infusion mb9 16:19 Drug: vancoMYCIN IVPB 1 grams IVPB once over 2 hrs Route: IVPB; Infused Over: 2 hrs; mb9 Site: right hand; Medication: 15:09 VIS not applicable for this client. mb9 Outcome: 14:32 Decision to Hospitalize by Provider. rn 16:36 Admitted to Med/surg room 215, with oxygen, with chart, Report called to LEE ANN etienne mb9 16:36 Condition: stable 16:54 Patient left the ED. mb9 Signatures: Herbert Rodriges MD MD rn Baxter, Heather, RN RN hb Manasa Rob rg4 Rubén Gunn RN RN jl7 Scarlett Brink RN RN mb9 Corrections: (The following items were deleted from the chart) 14:36 14:25 Initial Sepsis Screen: Does the patient meet any 2 criteria? No. Patient's hb initial sepsis screen is negative. Does the patient have a suspected source of infection? No. Patient's initial sepsis screen is negative. hb 14:36 14:25 Pulse 58bpm; Resp 16bpm; Pulse Ox 96% RA; Temp 97.9F Temporal; 65.32 kg; Height 5 hb ft. 9 in.; BMI: 21.2; Pain 8/10, Adult; hb 14:36 14:25 Acuity: VANESA 3 hb hb
[2023-07-10] MEDS: NA CHLORIDE 0.9% 1,000 ML IV SCH (17:33)
[2023-07-10 18:04] VITALS: BMI 21.2
--- NOTE | 2023-07-10 18:45 | P.HP ---
Certification for Inpatient With expected LOS: <2 Midnights Practitioner: I am a practitioner with admitting privileges, knowledge of patient current condition, hospital course, and medical plan of care. Services: Services provided to patient in accordance with Admission requirements found in Title 42 Section 412.3 of the Code of Federal Regulations Patient History Date of Service: 07/10/23 Reason for admission: Cat bite on the left arm, cellulitis, severe sepsis History of Present Illness: 71-year-old female with history of hypertension tricuspid valvular regurgitation, hypothyroidism, arthritis, atrial fibrillation, depression came to the ER with complaints of arm infection. Patient reports that she has redness and swelling on the left arm after cat bite 3 days ago. Patient was seen by the doctor and taken Augmentin for 3 days. Patient is positive for erythema, swelling on the left arm. Patient reports worsening of the left arm feeling feverish and chills yesterday and generalized weakness. ED course vital signs blood pressure 70/46, heart rate 58, breathing 16, temperature 97.9, pulse ox 96% on room air. Laboratory reports of 6 significant for WBC 15.90 hemoglobin 10.6 hematocrit 31, sodium 126 chloride 94 BUN 485, creatinine 2.5, GFR 18, blood glucose 134. Patient is given normal saline IV fluid resuscitation in the ER.Cat bite on the left arm, cellulitis, severe sepsis. Allergies ciprofloxacin [From Cipro] Allergy (Verified 09/27/22 00:06) Unknown levofloxacin [From Levaquin] Allergy (Verified 09/27/22 00:06) Rash Home Medications: Trazodone [Desyrel*] 100 mg PO BEDTIME 08/14/15 Ascorbic Acid [Vitamin C*] 2,000 mg PO BID 04/27/20 Cetirizine HCl [Zyrtec] 10 mg PO PRN PRN 12/16/20 Cyclobenzaprine [Flexeril*] 1 tab PO PRN PRN 03/15/22 Escitalopram Oxalate [Lexapro] 20 mg PO DAILY 03/15/22 Montelukast Sodium [Singulair] 10 mg PO DAILY 03/15/22 Aspirin [Aspirin EC 81 MG] 81 mg PO DAILY 03/29/23 Hydrocodone Bit/Acetaminophen [Hydrocodon-Acetaminoph 7.5-325] 1 tab PO DAILY PRN 03/29/23 Amiodarone HCl [Cordarone*] 1 tab PO BID 07/10/23 Celecoxib [Celebrex] 1 tab PO DAILY 07/10/23 Furosemide 1 tab PO DAILY 07/10/23 Levothyroxine Sodium 1 tab PO DAILY 07/10/23 Magnesium Oxide [Magnesium] 1 tab PO DAILY 07/10/23 Metoprolol Tartrate [Lopressor*] 1 tab PO BID 07/10/23 Zinc Gluconate [Zinc Gluconate*] 1 tab PO DAILY 07/10/23 vit A and D3 in cod liver oiL [Cod Liver Oil Softgel] 1 tab PO DAILY 07/10/23 - Past Medical/Surgical History Has patient received pneumonia vaccine in the past: Yes Diabetic: No -: arthritis -: depression -: severe TVR -: Hypertension -: Hypothyroidism -: Pacemaker -: afib -: hip replacement -: back surgery -: Elbow surgery -: hysterectomy -: appendectomy Psychosocial/ Personal History: Patient lives at home - Family History Father -: Heart disease Sister -: Hypertension, Stroke, Other (see notes) - Social History Smoking Status: Never smoker Alcohol use: No CD- Drugs: No Caffeine use: Yes Review of Systems 10-point ROS is otherwise unremarkable General: Fever, Chills, Weakness, Malaise (For 1 day) Eyes: Unremarkable ENT: Unremarkable Respiratory: SOB with Excertion Cardiovascular: Light Headedness Genitourinary: Incontinence Musculoskeletal: Atrophy, Other (Left hand pain) Integumentary: Other (Left arm cellulitis, redness edema on the left hand) Neurological: Other (Generalized weakness) Physical Examination - Vital Signs Temperature: 97.2 F Blood Pressure: 95/64 Pulse: 60 Respirations: 16 Pulse Ox (%): 96 - Physical Exam General: Alert, In no apparent distress, Oriented x3, Cachectic HEENT: Atraumatic, Normocephalic, PERRLA Neck: Supple, 2+ carotid pulse no bruit Respiratory: Clear to auscultation bilaterally, Diminished (At the bases) Cardiovascular: No edema, Normal pulses Capillary refill: Brisk Gastrointestinal: Normal bowel sounds, Soft and benign, Non-distended, No ascites, No tenderness, No masses, No rebound, No guarding Musculoskeletal: No clubbing, Other (Had a recent knee surgery on the right healing with the braces) Integumentary: Other (Redness, erythema and tenderness on the left hand) Neurological: Normal gait, Normal speech, Normal reflexes 2+, Other (Hard of hearing) - Studies Laboratory Data (last 24 hrs) 07/10/23 07/10/23 07/10/23 15:00 15:00 15:00 WBC 15.90 H Hgb 10.6 L Hct 31.1 L Plt Count 185 PT 10.5 INR 0.95 APTT 29.5 Sodium 126 L Potassium 4.4 BUN 45 H Creatinine 2.50 H Glucose 134 H Total Bilirubin 0.4 AST 15 ALT 24 Alkaline Phosphatase 55 07/10/23 07/10/23 07/10/23 14:23 14:23 14:23 WBC Cancelled Hgb Cancelled Hct Cancelled Plt Count Cancelled PT Cancelled INR Cancelled APTT Cancelled Sodium Cancelled Potassium Cancelled BUN Cancelled Creatinine Cancelled Glucose Cancelled Total Bilirubin Cancelled AST Cancelled ALT Cancelled Alkaline Phosphatase Cancelled Assessment and Plan - Plan Assessment and plan cellulitis of upper limb left, cat to bite, failure of outpatient therapy Hypotension Hyponatremia, CKD stage IV A-fib Hypothyroid- Assessment and plan cellulitis of upper limb left, cat to bite, failure of outpatient therapy Hypotension * Acute, patient was seen after cat bite on her left little left hand, received Augmentin oral for 3 days outpatient * Noticed increased tenderness on the site, reports feeling feverish and chills at home * Fluid resuscitation with normal saline 1 L to keep the blood pressure systolic over 90 * IV vancomycin 1 g was given in the ER * Admitting the patient to the hospital for further management * Antibiotics ordered Hyponatremia, CKD stage IV * Chronic worsening. sodium 126 chloride 94 BUN 485, creatinine 2.5, GFR 18, * Is alert and oriented. * Will continue with normal saline drip * Check recheck the electrolytes * Replace electrolytes as per protocol * Referral nephrology A-fib * Chronic, controlled rate. Patient denied palpitation or chest pain * Potassium home medications Hypothyroid- * Chronic, rate controlled. Resume home medications CODE STATUS-full code DVT prophylaxis-heparin Diet-heart healthy . Discharge Plan: Home Plan to discharge in: 72 Hours - Advance Directives Does patient have a Living Will: No Does patient have a Durable POA for Healthcare: No - Code Status/Comfort Care Code Status Assessed: Yes (Full code) Code Status: Full Code Physician Review: Patient Assessed, Agree with Above Assessment and Plan Critical Care: Yes Time Spent Managing Pts Care (In Minutes): 55 (Minutes)
[2023-07-10] MEDS ORDERED: VANCOMYCIN 1.25 GM in NA CHLORIDE 0.9% 250 ML IVPB ONE (20:00)
[2023-07-10] MEDS: DOXYCYCLINE 100 MG in NA CHLORIDE 0.9% 100 ML IVPB SCH (21:15)
[2023-07-10] MEDS: TRAMADOL HCL 50 MG TAB PO PRN (22:17)
[2023-07-10] MEDS: TRAZODONE 50 MG TABLET PO SCH (22:17)
[2023-07-11] MEDS: NA CHLORIDE 0.9% 1,000 ML IV SCH ×3 (03:36→21:54)
[2023-07-11 06:35] LABS: Absolute Lymphocytes (CBC) 0.5 K/uL (0.7-4.9); Hematocrit 29.7 % (36.0-45.0); Lymphocytes % 4.8 % (15.3-44.8); MCV 100.1 fL (80-100); MPV 7.5 fL (7.6-11.3); Platelets 137 thou/uL (152-406); RBC Red Blood Cell Count 2.97 M/uL (3.86-4.86)
[2023-07-11 06:41] LABS: Magnesium 2.4 mg/dL (1.6-2.4); Phosphorus 4.3 mg/dL (2.5-4.9); Potassium 4.6 mEq/L (3.5-5.1)
--- NOTE | 2023-07-11 09:14 | RAD REPORT ---
EXAM DESCRIPTION: US - Extremity Nonvascular Complete - 07/11/2023 6:15 am CLINICAL HISTORY: left hand US to look for abscess Pain and swelling COMPARISON: <Comparisons> TECHNIQUE: Real-time sonographic evaluation of the area of interest was performed left hand. FINDINGS: Moderate fluid pockets are seen in the area of interest left hand suggesting subcutaneous abscess.
[2023-07-11] MEDS: TRAMADOL HCL 50 MG TAB PO PRN ×2 (09:30→19:55)
[2023-07-11] MEDS: DOXYCYCLINE 100 MG in NA CHLORIDE 0.9% 100 ML IVPB SCH ×2 (09:30→19:56)
[2023-07-11 14:08] LABS: Potassium 4.5 mEq/L (3.5-5.1)
--- NOTE | 2023-07-11 17:13 | RAD REPORT ---
EXAM DESCRIPTION: CT - Hand Left W Con - 07/11/2023 5:03 pm CLINICAL HISTORY: abscess Animal bite, hand infection. COMPARISON: No comparisons FINDINGS: There is skin thickening moderate subcutaneous inflammatory fat stranding involving the fo rearm and hand. Mild subcutaneous gas is present of in the antecubital fossa which may be related to previous IV placement or attempt. There is no localized fluid density collection seen to indicate abscess collection. No soft tissue ga s evident. No radiopaque foreign body or underlying bony destructive lesion. IMPRESSION: Moderate inflammatory changes are present involving the skin and subcutaneous fat of the forearm, wrist and hand without abscess visualized. All CT scans are performed using dose optimization technique as appropriate and may include automated exposure control or mA/KV adjustment according to patient size.
[2023-07-11] MEDS: dexAMETHasone 4 MG/ML VIAL IV SCH ×2 (17:47→23:53)
[2023-07-11] MEDS: TRAZODONE 50 MG TABLET PO SCH (19:56)
[2023-07-12 04:02] LABS: Absolute Lymphocytes (CBC) 0.2 K/uL (0.7-4.9); Hematocrit 29.2 % (36.0-45.0); MCV 99.2 fL (80-100); MPV 7.3 fL (7.6-11.3); Platelets 157 thou/uL (152-406); RBC Red Blood Cell Count 2.94 M/uL (3.86-4.86)
[2023-07-12 04:14] LABS: Magnesium 2.2 mg/dL (1.6-2.4); Phosphorus 2.5 mg/dL (2.5-4.9)
[2023-07-12] MEDS: VANCOMYCIN 1.25 GM in NA CHLORIDE 0.9% 250 ML IVPB SCH (04:48)
[2023-07-12] MEDS: dexAMETHasone 4 MG/ML VIAL IV SCH ×2 (05:00→12:19)
[2023-07-12] MEDS: NA CHLORIDE 0.9% 1,000 ML IV SCH ×3 (08:00→17:39)
[2023-07-12] MEDS: BUPIVACAINE 0.5% PF 10 ML VIAL ONE ×2 (09:26→09:34)
[2023-07-12] MEDS: DOXYCYCLINE 100 MG in NA CHLORIDE 0.9% 100 ML IVPB SCH ×2 (09:45→19:38)
[2023-07-12] MEDS: Ringers Lactate 1,000 ML IV ONE ×2 (09:45→09:50)
[2023-07-12] MEDS ORDERED: FENTANYL CITR 100 MCG/2 ML ONE (10:12)
[2023-07-12] MEDS ORDERED: propofoL 200 MG/20 ML VIAL IV ONE (10:12)
[2023-07-12] MEDS ORDERED: LIDOCAINE 1% MPF 5 ML VIAL ONE (10:13)
[2023-07-12] MEDS ORDERED: ONDANSETRON 4 MG/2 ML VIAL ONE (10:13)
--- NOTE | 2023-07-12 10:53 | P.OP ---
Preoperative diagnosis: LEFT Wrist / Hand Abscess / Cat Bite Postoperative diagnosis: LEFT Wrist / Hand Abscess / Cat Bite Primary procedure: Incision and Drainage of LEFT Wrist / Hand Abscess / Cat Bite Secondary procedure: Debridement of infected tract skin Anesthesia: GETA + Local Estimated blood loss: <2cc Specimen: Cultures / Debridement Tissue Findings: ~1cm abscess along dorsal proximal thenar phalanx, trapezoid Complications: None Drain(s): Other (/" packing wick - Vashe ) Transferred to: Recovery Room Condition: Good
[2023-07-12] MEDS: FENTANYL CITR 100 MCG/2 ML ONE ×4 (10:55→11:10)
[2023-07-12] MEDS: HYDROMORPHONE HCL 1 MG/ML INJ ONE ×5 (11:15→11:45)
--- NOTE | 2023-07-12 11:22 | OP ---
Date of Procedure: 07/12/2023 Surgeon: Jason Meneses MD, Preoperative Diagnosis: Left wrist and hand abscess/cat bite. Postoperative Diagnosis: Left wrist and hand abscess/cat bite. Procedures: 1. Incision and drainage of left wrist and hand abscess from cat bite. 2. Debridement of the infected puncture tract, involved skin. Anesthesia: General endotracheal. Estimated Blood Loss: Less than 2 cc. Specimen: Culture sent both aerobic and anaerobic speciation and debridement tissue. Findings: Approximately 1 cm abscess along the dorsal proximal thenar phalanx and the trapezoid muscle extending somewhat medially over the dorsal aspect of the hand. Complications: None. Drains: A quarter-inch damp to dry Vashe-soaked plain packing was left in the wound to allow for continued drainage. Disposition: The patient was transferred to the recovery room in good condition. Procedure In Detail: After informed consent was obtained, the patient was prepped and draped in the usual sterile fashion after adequate anesthesia was achieved. I made a curvilinear incision around the puncture site of the severe cat bite on the left wrist dorsal aspect near the proximal phalanx of the thumb. I used a 15 blade to dissect down to subcutaneous tissues. I got into the subcutaneous fat. At this point, I encountered significant abscess approximately 1 to 1.5 cm, which had been stretching out medially over the dorsal aspect of the hand and proximally toward the wrist. It did not involve the muscular planes. As such, I used a mosquito hemostat to open up and drain all of this abscess material out. I then irrigated it copiously until all the abscess material was cleared. I then washed the area with Vashe, partially reapproximated the proximal and distal aspects using interrupted 4-0 Prolene vertical mattress sutures and placed Vashe-soaked [id number] packing wick inside the subcutaneous tissues to allow for continued drainage and sterile dressings were placed over top. Hemostasis was easily achieved at the skin level with needle-tip Bovie. The area had good hemostasis at the end and the wound was then wrapped with sterile dressing and Loki bandage and wrist splint applied. The patient tolerated the procedure well without evidence of complication and transferred to PACU in good condition. All counts were correct at the end of the case. BELLA/SAUL Voice ID: [id number] Report ID: [id number] MTDD
--- NOTE | 2023-07-12 11:52 | CON ---
Date of Consultation: 07/12/2023 Brief History Of Present Illness: The patient is an 88-year-old female with a history of hypertensio n, tricuspid valvular regurgitation, hypothyroidism, significant osteoarthritis requiring surgery bef ore in the past, atrial fibrillation, depression, who came to the ER with complaints of cellulitis, p ain on the left wrist and arm after a cat bite. Four days prior to this, she states that the cat bit her 3-4 days prior to her admission. Surprisingly, it was her cat. It was on the left wrist area a nd she was concerned that perhaps part of the tooth was retained within there or some foreign body af ter the cat bite as there were several punctures in the area of the wrist, she had significant swelli ng immediately. She has decreased range of motion of her thumb and hand, but does not have any paral ysis of the hand at this point. The pain and swelling caused decreased range of motion. She has bee n taking Augmentin for approximately 3 days. The area became more red, more swollen, and more tender and had decreased range of motion. As such, she noted that she developed additional fever, temperat ure, chills, generalized weakness, and came to the hospital with concerns for infection. Her vital s igns in the ER showed a heart rate of 58, blood pressure 70/46, temperature was 97.9. She had a whit e blood cell count of 15.9 on admission. She came in with possible sepsis due to this cat inoculatio n/bite. Allergies: CIPRO AND LEVAQUIN. Home Medications: Include Desyrel, vitamin C, Zyrtec, Flexeril, Lexapro, Singulair, aspirin, Caneadea, Cordarone/amiodarone, Celebrex, Lasix, levothyroxine, magnesium, Lopressor, Zinc, Cod Liver Oil. Past Medical History: Significant for arthritis, depression, severe tricuspid valve regurgitation, h ypertension, hyperthyroidism, severe osteoarthritis, atrial fibrillation, and depression who presents with surgical history of pacemaker, hip replacement, back surgery, elbow surgery, hysterectomy, appe ndectomy. Social History: She lives at home. She denies smoking, alcohol, recreational drug use. Review of Systems: 10 point review of systems other than HPI, currently denies other than incontinence, which is chronic and significant osteoarthritis. Limited movement. Physical Examination: At the time of my examination: General: She is awake, alert, and oriented. Psychiatric: She is appropriate, conversive. HEENT: She is normocephalic. Her sclerae are anicteri c. Mucous membranes are moist. Oropharynx clear. Neck: Supple without JVD. Chest: Expansion, excursion. Cardiovascular: Regular rate. Regurgitation sounds are obvious in her with a bruit in her chest con sistent with tricuspid valve regurgitation on auscultation. Abdomen: Focused examination of the abdomen shows nontender, nondistended. Well-healed surgical sca rs. Extremities: Examination of the left arm shows cellulitis extending all the way up to the elbow area , swelling, tenderness to palpation and obvious puncture lopes on the medial aspect of the wrist with 2 small puncture lopes there, consistent with her story of a cat bite. There is decreased range of motion in her hand secondary to pain and swelling. The hand is significantly swollen. She has no ob vious deficit in that all fingers move, but she has decreased range of motion and decreased strength overall due to significant swelling and pain with movement. I feel fullness and fluctuance in the ar ea under the puncture elinor consistent with possible edema/infection. The skin remains red circumfere ntially around the area. Pulses were equal and there is no pain with passive motion concerning for c ompartment syndrome at this point. Laboratory Data: She had a laboratory exam, which revealed a white blood cell count on admission of 15.9, now 10.8; hemoglobin 10.3; hematocrit of 29.7; platelets were 137. Her neutrophils were 79%. Sodium 140, potassium 4.6, chloride 101, carbon dioxide 24, BUN is 36, creatinine 1.7. Her glucose w as 104. Her procalcitonin was 0.06. She had imaging performed, which included an extremity ultrasou nd performed on 07/10 officially read as moderate fluid pockets are seen in the area of interest to t he left hand suggesting subcutaneous abscess. She additionally had a CT performed of the hand, which is officially read as moderate inflammatory changes present involving the skin, subcutaneous fat of the forearm, wrist, and hand without abscess visualized. There is no radiopaque fluid density collec tion seen that indicate abscess collection. No radiopaque foreign body or underlying bony destructiv e lesions. There is skin thickening, moderate subcutaneous inflammatory fat stranding involving the forearm and hand. Subcutaneous gas is present in the antecubital fossa, which may be related to prev ious IV placement attempt. Assessment And Plan: This is an 88-year-old woman who presents with a cat bite to the left wrist on the medial aspect along the thumb tract and the area of the extensor hallucis tendon. I have perform ed serial exams on this area and it seems that the swelling is worsening over the course of my examin ation, which was several hours apart despite antibiotic coverage and as such I am concerned for devel oping fluid collection in this area and/or worsening infection. As such, I have recommended excision of the tract of the cat bite and irrigation of the subcutaneous tissues without involving any joint or deep structures. I will irrigate the area copiously and likely place a possible drainage or wick to allow for drainage of this fluid collection and continued serial exams afterward. I have explaine d the risks, benefits, and alternatives of excision of the tract as I am concerned about inoculation and a focus of infection in this area, including, but not limited to bleeding; infection; damage to s urrounding tissues; injury to the structures of the hand including blood vessels, nerves, tendons, an d other structures related to hand movement and as such the risks can include bleeding, infection, da mage to surrounding tissue, decreased hand movement in the future, which could be permanent, need for further operations, procedures, paralysis, numbness and inability to use the hand properly. The pat ient displayed understanding of the above stated plan and agreed to proceed as indicated. BELLA/SAUL Voice ID: [id number] Report ID: [id number]
[2023-07-12] MEDS: HYDROCODONE/APAP 5/325 MG TAB PO PRN ×2 (12:57→19:38)
[2023-07-12] MEDS: TRAMADOL HCL 50 MG TAB PO PRN ×2 (14:55→22:19)
[2023-07-12] MEDS ORDERED: METHYLPREDNISOLONE 125 MG INJ IV ONE (17:51)
[2023-07-12] MEDS: MORPHINE 2 MG/ML SYR IV PRN (18:11)
[2023-07-12] MEDS: TRAZODONE 50 MG TABLET PO SCH (19:38)
[2023-07-13] MEDS: NA CHLORIDE 0.9% 1,000 ML IV SCH ×3 (00:16→23:14)
--- NOTE | 2023-07-13 00:21 | P.PN ---
Date of Service: 07/11/23 Subjective Pt with erythema and significant area of flunctuance. Spoke with surgery and will try to get a CT of that area. Physical Examination - Vital Signs Reviewed - Physical Exam General: Alert, In no apparent distress, Oriented x3, Cachectic Respiratory: Clear to auscultation bilaterally, Diminished (At the bases) Cardiovascular: RRR with murmur Gastrointestinal: Normal bowel sounds, Soft and benign, Non-distended, No ascites, No tenderness, No masses, No rebound, No guarding Musculoskeletal: No clubbing, Other (Had a recent knee surgery on the right healing with the braces) Integumentary: Other (Redness, erythema and tenderness on the left hand) Neurological: No focal deficits Assessment and Plan -Assessment Assessment Cellulitis of upper left extremity along the wrist on the radial aspect Failure of outpatient therapy Hypotension Hyponatremia CKD stage IV Atrial fibrillation Hypothyroid -Plan Plan Cellulitis of upper limb left, cat to bite Failure of outpatient therapy Hypotension * Acute, patient was seen after cat bite on her left little left hand, received Augmentin oral for 3 days outpatient; patient is having worsening and worsening pain so we started on IV antibiotics. Will consult hand surgery/general surgeon if hand surgery is not available * Noticed increased tenderness on the site, reports feeling fever and chills at home * Fluid resuscitation with normal saline 1 L to keep the blood pressure systolic over 90 * IVPB vancomycin 1g was given in the ER * Admitting the patient to the hospital for further management * Abx ordered Hyponatremia CKD stage IV * Chronic worsening. Sodium 126 chloride 94 BUN 485, creatinine 2.5, GFR 18, * Alert and oriented. * Will continue with normal saline drip * Check recheck the electrolytes * Replace electrolytes as per protocol * Referral nephrology A-fib * Chronic, controlled rate. Patient denied palpitation or chest pain * Potassium home medications Hypothyroid * Chronic, rate controlled. Resume home medications CODE STATUS-full code DVT prophylaxis-heparin Diet-heart healthy Discharge Plan: Home Plan to discharge in: 72 Hours - Advance Directives Does patient have a Living Will: No Does patient have a Durable POA for Healthcare: No - Code Status/Comfort Care Code Status Assessed: Yes (Full code) Code Status: Full Code Physician Review: Patient Assessed, Agree with Above Assessment and Plan Critical Care: NO Time Spent Managing Pts Care (In Minutes): 25 (Minutes)
--- NOTE | 2023-07-13 00:24 | P.PN ---
Date of Service: 07/12/23 Subjective Patient status post I&D by general surgery. Large amount of purulent drainage per general surgery. Wound care and IV antibiotic therapy. Wound care consultation if general surgery request. Otherwise home health arrangements for wound care. Physical Examination - Vital Signs Reviewed - Physical Exam General: Alert, In no apparent distress, Oriented x3, Cachectic Respiratory: Clear to auscultation bilaterally, Diminished (At the bases) Cardiovascular: RRR with murmur Gastrointestinal: Normal bowel sounds, Soft and benign, Non-distended, No ascites, No tenderness, No masses, No rebound, No guarding Musculoskeletal: No clubbing, Other (Had a recent knee surgery on the right healing with the braces) Integumentary: Other (Redness, erythema and tenderness on the left hand) Neurological: No focal deficits Assessment and Plan -Assessment Assessment Cellulitis of upper left extremity along the wrist on the radial aspect Failure of outpatient therapy Hypotension Hyponatremia CKD stage IV Atrial fibrillation Hypothyroid -Plan Plan Cellulitis of upper limb left, cat to bite Failure of outpatient therapy Hypotension * Acute, patient was seen after cat bite on her left little left hand, received Augmentin oral for 3 days outpatient; patient is having worsening and worsening pain so we started on IV antibiotics. Appreciate general surgery consultation. Patient status post incision and debridement. * Continue with gentle IV hydration * Continue with IV antibiotics Hyponatremia CKD stage IV * Sodium and renal function have improved. * Continue monitoring electrolytes and continue with gentle hydration A-fib * Chronic, controlled rate. Patient denied palpitation or chest pain * Potassium home medications Hypothyroid * Chronic, rate controlled. Resume home medications CODE STATUS-full code DVT prophylaxis-heparin Diet-heart healthy Discharge Plan: Home Plan to discharge in: 72 Hours - Advance Directives Does patient have a Living Will: No Does patient have a Durable POA for Healthcare: No - Code Status/Comfort Care Code Status Assessed: Yes (Full code) Code Status: Full Code Physician Review: Patient Assessed, Agree with Above Assessment and Plan Critical Care: NO Time Spent Managing Pts Care (In Minutes): 25 (Minutes)
[2023-07-13] MEDS: HYDROCODONE/APAP 5/325 MG TAB PO PRN ×2 (00:38→06:22)
[2023-07-13] MEDS: MORPHINE 2 MG/ML SYR IV PRN ×4 (02:07→23:14)
[2023-07-13 03:07] LABS: Absolute Lymphocytes (CBC) 0.3 K/uL (0.7-4.9); Hematocrit 26.9 % (36.0-45.0); Lymphocytes % 3.2 % (15.3-44.8); MCV 98.1 fL (80-100); MPV 7.2 fL (7.6-11.3); Platelets 186 thou/uL (152-406); RBC Red Blood Cell Count 2.74 M/uL (3.86-4.86)
[2023-07-13 03:20] LABS: Magnesium 1.9 mg/dL (1.6-2.4); Phosphorus 1.6 mg/dL (2.5-4.9); Potassium 4.9 mEq/L (3.5-5.1)
[2023-07-13 03:54] LABS: Blood Morphology Comment NOT SEEN (NOT SEEN); Platelet Estimate ADEQ
[2023-07-13] MEDS: TRAMADOL HCL 50 MG TAB PO PRN (04:33)
[2023-07-13] MEDS: DOXYCYCLINE 100 MG in NA CHLORIDE 0.9% 100 ML IVPB SCH (08:32)
--- NOTE | 2023-07-13 08:48 | P.CNS ---
Date of Consult: 07/13/23 Reason for Consult: GARY/ Hyponatremia Requesting Physician: Eric Blackwell Chief Complaint: Cat bite on the left arm, cellulitis, severe sepsis History of Present Illness: 71-year-old female with history of hypertension tricuspid valvular regurgitation, hypothyroidism, arthritis, atrial fibrillation, depression came to the ER with complaints of arm infection. Patient reports that she has redness and swelling on the left arm after cat bite 3 days ago. Patient was seen by the doctor and taken Augmentin for 3 days. Patient is positive for erythema, swelling on the left arm. Patient reports worsening of the left arm feeling feverish and chills yesterday and generalized weakness. ED course vital signs blood pressure 70/46, heart rate 58, breathing 16, temperature 97.9, pulse ox 96% on room air. Laboratory reports of 6 significant for WBC 15.90 hemoglobin 10.6 hematocrit 31, sodium 126 chloride 94 BUN 485, creatinine 2.5, GFR 18, blood glucose 134. Patient is given normal saline IV fluid resuscitation in the ER.Cat bite on the left arm, cellulitis, severe sepsis. 14:28 This 88 yrs old Female presents to ER via Unassigned with complaints of Arm Infection. rn 14:28 The patient presents with cellulitis of the left arm. Onset: The symptoms/episode rn began/occurred 3 day(s) ago. Possible cause(s): cat bite. Associated signs and symptoms: Pertinent positives: erythema, swelling, Pertinent negatives: fever. Severity of symptoms: At their worst the symptoms were moderate, in the emergency department the symptoms are actually worse. The patient has not experienced similar symptoms i n the past. The patient has been recently seen at the [facility] Emergency Department. Reports returns for worsening infection of the arm. Reports bitten by her cat 3 days ago. Seen here, given antibiotics, total of 3 doses of antibiotics with spreading of erythema and warmth. Reports chills. Reports generalized malaise and weakness.. Allergies ciprofloxacin [From Cipro] Allergy (Verified 09/27/22 00:06) Unknown levofloxacin [From Levaquin] Allergy (Verified 09/27/22 00:06) Rash Home medications list reviewed: Yes Home Medications: Trazodone [Desyrel*] 100 mg PO BEDTIME 08/14/15 Ascorbic Acid [Vitamin C*] 2,000 mg PO BID 04/27/20 Cetirizine HCl [Zyrtec] 10 mg PO PRN PRN 12/16/20 Cyclobenzaprine [Flexeril*] 1 tab PO PRN PRN 03/15/22 Escitalopram Oxalate [Lexapro] 20 mg PO DAILY 03/15/22 Montelukast Sodium [Singulair] 10 mg PO DAILY 03/15/22 Aspirin [Aspirin EC 81 MG] 81 mg PO DAILY 03/29/23 Hydrocodone Bit/Acetaminophen [Hydrocodon-Acetaminoph 7.5-325] 1 tab PO DAILY PRN 03/29/23 Amiodarone HCl [Cordarone*] 1 tab PO BID 07/10/23 Celecoxib [Celebrex] 1 tab PO DAILY 07/10/23 Furosemide 1 tab PO DAILY 07/10/23 Levothyroxine Sodium 1 tab PO DAILY 07/10/23 Magnesium Oxide [Magnesium] 1 tab PO DAILY 07/10/23 Metoprolol Tartrate [Lopressor*] 1 tab PO BID 07/10/23 Zinc Gluconate [Zinc Gluconate*] 1 tab PO DAILY 07/10/23 vit A and D3 in cod liver oiL [Cod Liver Oil Softgel] 1 tab PO DAILY 07/10/23 - Past Medical/Surgical History Diabetic: No -: arthritis -: depression -: severe TVR -: Hypertension -: Hypothyroidism -: Pacemaker -: afib -: hip replacement -: back surgery -: Elbow surgery -: hysterectomy -: appendectomy Psychosocial/ Personal History: Patient lives at home - Family History Father Medical History: Heart disease Sister Medical History: Hypertension, Stroke, Other (see notes) - Social History Smoking Status: Unknown if ever smoked Alcohol use: No CD- Drugs: No Caffeine use: Yes Review of Systems 10-point ROS is otherwise unremarkable General: Weakness, Malaise Integumentary: Rash Physical Examination Temp Pulse Resp BP Pulse Ox 97.0 F 64 16 142/73 H 94 07/13/23 04:00 07/13/23 04:00 07/13/23 06:22 07/13/23 04:00 07/13/23 06:22 General: In no apparent distress, Oriented x3, Cooperative HEENT: Atraumatic Neck: Supple Respiratory: Clear to auscultation bilaterally Cardiovascular: No edema, Regular rate/rhythm Gastrointestinal: Soft and benign, Non-distended Musculoskeletal: No clubbing, No contractures Integumentary: Erythema, Warmth Neurological: Normal speech Blood work reviewed in the chart. Imagings Data: EXAM DESCRIPTION: US - Extremity Nonvascular Complete - 07/11/2023 6:15 am CLINICAL HISTORY: left hand US to look for abscess Pain and swelling COMPARISON: <Comparisons> TECHNIQUE: Real-time sonographic evaluation of the area of interest was performed left hand. FINDINGS: Moderate fluid pockets are seen in the area of interest left hand suggesting subcutaneous abscess. Conclusions/Impression: Stage III GARY in the setting of hypovolemia and Celebrex -No NSAIDs -Continue IVF Hypovolemia Hyponatremia -Continue IVF with NS HTN -Monitor BP Anemia in chronic illness -Monitor H&H Left hand cellulitis -Continue abx and wound care Case reviewed with Dr. Blackwell Thank you kindly for the consultation
--- NOTE | 2023-07-13 09:03 | P.CNS ---
Date of Consult: 07/13/23 Reason for Consult: infected cat bite, hand Chief Complaint: Cat bite on the left arm, cellulitis, severe sepsis History of Present Illness: Patient is an 88-year-old female with a past medical history of hypertension, hypothyroidism, atrial fibrillation, depression, arthritis who presented to the ED with complaints of left arm edema, erythema and pain. She was bitten by a cat on the left arm for which she was prescribed Augmentin for 3 days by her PCP without improvement in symptoms. Patient was admitted for severe sepsis secondary to left arm cellulitis due to cat bite. ID was consulted. Allergies ciprofloxacin [From Cipro] Allergy (Verified 09/27/22 00:06) Unknown levofloxacin [From Levaquin] Allergy (Verified 09/27/22 00:06) Rash Home medications list reviewed: Yes Home Medications: Trazodone [Desyrel*] 100 mg PO BEDTIME 08/14/15 Ascorbic Acid [Vitamin C*] 2,000 mg PO BID 04/27/20 Cetirizine HCl [Zyrtec] 10 mg PO PRN PRN 12/16/20 Cyclobenzaprine [Flexeril*] 1 tab PO PRN PRN 03/15/22 Escitalopram Oxalate [Lexapro] 20 mg PO DAILY 03/15/22 Montelukast Sodium [Singulair] 10 mg PO DAILY 03/15/22 Aspirin [Aspirin EC 81 MG] 81 mg PO DAILY 03/29/23 Hydrocodone Bit/Acetaminophen [Hydrocodon-Acetaminoph 7.5-325] 1 tab PO DAILY PRN 03/29/23 Amiodarone HCl [Cordarone*] 1 tab PO BID 07/10/23 Celecoxib [Celebrex] 1 tab PO DAILY 07/10/23 Furosemide 1 tab PO DAILY 07/10/23 Levothyroxine Sodium 1 tab PO DAILY 07/10/23 Magnesium Oxide [Magnesium] 1 tab PO DAILY 07/10/23 Metoprolol Tartrate [Lopressor*] 1 tab PO BID 07/10/23 Zinc Gluconate [Zinc Gluconate*] 1 tab PO DAILY 07/10/23 vit A and D3 in cod liver oiL [Cod Liver Oil Softgel] 1 tab PO DAILY 07/10/23 - Past Medical/Surgical History Diabetic: No -: arthritis -: depression -: severe TVR -: Hypertension -: Hypothyroidism -: Pacemaker -: afib -: hip replacement -: back surgery -: Elbow surgery -: hysterectomy -: appendectomy Psychosocial/ Personal History: Patient lives at home - Family History Father Medical History: Heart disease Sister Medical History: Hypertension, Stroke, Other (see notes) - Social History Smoking Status: Unknown if ever smoked Alcohol use: No CD- Drugs: No Caffeine use: Yes Review of Systems 10-point ROS is otherwise unremarkable Musculoskeletal: Hand Pain (left) Physical Examination Temp Pulse Resp BP Pulse Ox 97.0 F 64 16 142/73 H 94 07/13/23 04:00 07/13/23 04:00 07/13/23 06:22 07/13/23 04:00 07/13/23 06:22 General: Alert, In no apparent distress, Oriented x3 HEENT: Atraumatic, Normocephalic Neck: Supple, JVD not distended Respiratory: Clear to auscultation bilaterally, Normal air movement (on room air) Cardiovascular: No edema Gastrointestinal: Normal bowel sounds, Non-distended Musculoskeletal: No clubbing, Swelling (left hand), Tenderness (left hand) Integumentary: Other (left hand dressing is clean dry and intact) Neurological: Normal speech, Normal tone, Normal affect Laboratory data reviewed Microbiology data reviewed Imagings Data: Reviewed Conclusions/Impression: Problem list Sepsis, resolved Cellulitis of left upper extremity, cat bite CKD stage IV Atrial fibrillation Hypothyroidism Arthritis Depression Hyponatremia Cellulitis of left hand/wrist with abscess - cat bite - She was on Augmentin PO as outpatient for about 2 days prior to returning to the ED due to no improvement of pain, edema or erythema of left hand. - CT left hand 07/11: " Moderate inflammatory changes are present involving the skin and subcutaneous fat of the forearm, wrist and hand without abscess visualized." - Underwent I&D of left wrist/hand wound on 07/[address] Meneses with findings of abscess - Wound/abscess culture 07/12: Pending - Previously on Doxycycline (07/10-07/13) - Currently on Cefepime (07/13-) and Vancomycin (07/12-) Blood cultures 07/10: no growth to date Leukocytosis resolved. Afebrile. Recommendations - Cellulitis with abscess, cat bite: Continue antibiotic therapy for 10-14 days - Awaiting final wound culture results. Will adjust antibiotics as appropriate. Depending on culture results, consider restarting patient on Augmentin PO to complete remainder of antibiotic therapy. - Wound care per Dr. Meneses Case discussed with Marshall Soto
[2023-07-13] MEDS: DOCUSATE NA 100 MG CAP PO SCH ×2 (10:58→21:14)
[2023-07-13] MEDS: HYDROCODONE/APAP 7.5/325 MG TAB PO PRN ×3 (10:58→21:55)
[2023-07-13] MEDS ORDERED: DRISDOL (VITAMIN D=ERGOCALCIFEROL) 50000 UNIT CAP PO SCH (11:00)
--- NOTE | 2023-07-13 12:37 | EKG ---
Test Date: 2023-07-10 Test Time: 15:44:53 Measurement Operator: MB MEASUREMENT RESULTS: Intervals: Rate: 60 DE: 408 QRSD: 182 QT: 556 QTc: 556 [place]: P: DE: 408 QRS: -74 T: 97 INTERPRETIVE STATEMENTS: Sinus rhythm with 1st degree AV block with fusion complexes Left axis deviation Left bundle branch block Abnormal ECG Compared to ECG 03/29/2023 13:16:37 Fusion complex(es) now present First degree AV block now present Left-axis deviation now present Left bundle-branch block now present Atrial fibrillation no longer present ST (T wave) deviation no longer present Electronically Signed On 07-13-23 12:32:25 CDT by Chace Nava
--- NOTE | 2023-07-13 13:13 | P.PN ---
Subjective Date of Service: 07/13/23 Chief Complaint: Cat bite on the left arm, cellulitis, severe sepsis POD # 1 incision, drainage, and debridement of left wrist and hand abscess from cat bite. She tolerated the procedure well, but reports significant left-hand pain this morning. She grades her pain a 9/10 in severity. She has full range of motion of her hand, but reports pain with movement. She denies any fevers, chills, chest pain, or shortness of breath. Review of Systems 10-point ROS is otherwise unremarkable Musculoskeletal: Hand Pain (left) Physical Examination - Vital Signs Temperature: 97.3 F Blood Pressure: 145/81 Pulse: 68 Respirations: 16 Pulse Ox (%): 90 - Physical Exam General: Alert, In no apparent distress, Oriented x3 HEENT: Atraumatic, Mucous membr. moist/pink, Sclerae nonicteric Neck: JVD not distended Respiratory: Clear to auscultation bilaterally, Normal air movement Cardiovascular: No edema, Regular rate/rhythm, Normal S1 S2, No gallops, No rubs, No murmurs Gastrointestinal: Normal bowel sounds, Soft and benign, Non-distended, No tenderness, No rebound, No guarding Musculoskeletal: Swelling (left hand/wrist), Erythema (left hand/wrist), Tenderness (left hand/wrist) Integumentary: Tenderness/swelling (left hand/wrist), Erythema (left hand/wrist) Neurological: Normal speech, Normal affect Assessment And Plan - Plan # Purulent Left Upper Extremity Cellulitis with Abscess secondary to Infected Cat Bite - POD # 1 incision, drainage, and debridement of left wrist and hand abscess from cat bite. - Evaluation: - Does not meet sepsis criteria - Procalcitonin = 0.06 - Left upper extremity ultrasound = "moderate fluid pockets are seen in the area of interest left hand suggesting subcutaneous abscess." - CT hand = "moderate inflammatory changes are present involving the skin and subcutaneous fat of the forearm, wrist and hand without abscess visualized." - Management plan: - S/P Tdap on 07/09/23 - Continue IV antibiotics - switched doxycycline to cefepime - Continue vancomycin - General Surgery consulted and spoke with Dr. Meneses - recommendations appreciated - Infectious Diseases consulted and spoke with DETONATOR ASSEMBLER Sgarbi - recommendations appreciated # KDIGO Stage III Acute Kidney Injury # Hyponatremia - Nephrology consulted and spoke with Dr. Sanders - recommendations appreciated - Creatinine = 2.50 -> 1.72 -> 1.28 -> 0.97 -> 0.78 - Urinalysis = pending - Monitor creatinine and urine output - If worsening, obtain renal ultrasound - Renally dose medications # Chronic Atrial Fibrillation - Continue home metoprolol - Not on anticoagulation at home # Hypothyroidism - Continue home levothyroxine Eric Blackwell M.D.
[2023-07-13] MEDS: ESCITALOPRAM 20 MG TAB PO SCH (14:48)
[2023-07-13] MEDS: METOPROLOL TAR 25 MG TAB PO SCH ×2 (14:48→21:15)
[2023-07-13] MEDS: VANCOMYCIN 1.25 GM in NA CHLORIDE 0.9% 250 ML IVPB SCH (16:58)
[2023-07-13] MEDS ORDERED: ENOXAPARIN 40 MG/0.4 ML SQ SCH (17:00)
[2023-07-13] MEDS: TRAZODONE 50 MG TABLET PO SCH (21:14)
[2023-07-13] MEDS: CEFEPIME 1 GM in NA CHLORIDE 0.9% 100 ML IV SCH (21:15)
[2023-07-14 02:51] LABS: Hematocrit 30.8 % (36.0-45.0)
[2023-07-14 03:02] LABS: Magnesium 1.7 mg/dL (1.6-2.4); Phosphorus 2.1 mg/dL (2.5-4.9); Potassium 4.7 mEq/L (3.5-5.1)
[2023-07-14] MEDS ORDERED: MAGNESIUM SULFATE 1 gm IVPB 1 GM/100 ML BAG IV ONE (03:07)
[2023-07-14] MEDS: MORPHINE 2 MG/ML SYR IV PRN ×3 (03:27→12:20)
[2023-07-14] MEDS: HYDROCODONE/APAP 7.5/325 MG TAB PO PRN ×2 (05:35→13:51)
[2023-07-14] MEDS ORDERED: LEVOTHYROXINE SOD 0.05 MG TABLET PO SCH (06:30)
--- NOTE | 2023-07-14 08:13 | P.PN ---
Date of Service: 07/14/23 Chief Complaint: Cat bite on the left arm, cellulitis, severe sepsis Subjective: Improving. + left hand pain, improving No new or worsening complaints. No acute events reported overnight. Son at bedside. Physical Examination Temp Pulse Resp BP Pulse Ox 97.6 F 60 15 134/71 99 07/14/23 04:00 07/14/23 04:00 07/14/23 06:22 07/14/23 04:00 07/14/23 06:22 General: Alert, In no apparent distress, Oriented x3 HEENT: Atraumatic, Normocephalic Neck: Supple, JVD not distended Respiratory: Clear to auscultation bilaterally, Normal air movement. On room air. Cardiovascular: No edema Gastrointestinal: Normal bowel sounds, Non-distended Musculoskeletal: No clubbing, Swelling of left hand improving. Tenderness left hand. Integumentary: left hand dressing is clean dry and intact Neurological: Normal speech, Normal tone, Normal affect Laboratory data: Reviewed Microbiology data: Reviewed Imagings Data: Reviewed Medications list: Reviewed Assessment and Plan Problem list Sepsis, resolved Cellulitis of left upper extremity, cat bite CKD stage IV Atrial fibrillation Hypothyroidism Arthritis Depression Hyponatremia Cellulitis of left hand/wrist with abscess - cat bite - She was on Augmentin PO as outpatient for about 2 days prior to returning to the ED due to no improvement of pain, edema or erythema of left hand. - CT left hand 07/11: " Moderate inflammatory changes are present involving the skin and subcutaneous fat of the forearm, wrist and hand without abscess visualized." - Underwent I&D of left wrist/hand wound on 07/[address] Meneses with findings of abscess - Wound/abscess culture 07/12: no growth - Previously on Doxycycline (07/10-07/13) - Currently on Cefepime (07/13-) and Vancomycin (07/12-) Blood cultures 07/10: no growth to date Leukocytosis resolved. Afebrile. Recommendations - Cellulitis with abscess, cat bite: Continue antibiotic therapy for 10-14 days. - Awaiting final wound culture results. Will adjust antibiotics as appropriate. Depending on culture results, consider restarting patient on Augmentin PO and Doxycycline PO to complete remainder of antibiotic therapy. - Continue wound care per Dr. Meneses - Follow up with Dr. Meneses as outpatient Case discussed with Marshall Soto
[2023-07-14] MEDS: DOCUSATE NA 100 MG CAP PO SCH (08:16)
[2023-07-14] MEDS: ESCITALOPRAM 20 MG TAB PO SCH (08:16)
[2023-07-14] MEDS: METOPROLOL TAR 25 MG TAB PO SCH (08:16)
[2023-07-14] MEDS: CEFEPIME 1 GM in NA CHLORIDE 0.9% 100 ML IV SCH (08:17)
[2023-07-14] MEDS ORDERED: HOME MED 1 EA UNK (Escitalopram Oxalate [Lexapro] 10 MG Tablet) PO SCH (09:00)
[2023-07-14] MEDS ORDERED: HOME MED 1 EA UNK (Levothyroxine Sodium [Levothyroxine Sodium] 50 MCG Capsule) PO SCH (09:00)
[2023-07-14 09:22] VITALS: O2SAT 98
--- NOTE | 2023-07-14 12:24 | P.DS ---
Admission Date: 07/10/23 Discharge Date: 07/14/23 Disposition: AL HOME/HOME HEALTH CARE Discharge Condition: GOOD Reason for Admission: Cat bite on the left arm, cellulitis, severe sepsis Consultations: 1. General Surgery 2. Infectious Diseases 3. Nephrology Procedures: - 07/12/2023 - Incision and Drainage of Left Wrist / Hand Abscess / Cat Bite and Debridement of Infected Skin Tract Hospital Course: DIAGNOSES: # Purulent Left Upper Extremity Cellulitis with Abscess secondary to Infected Cat Bite - improved # KDIGO Stage III Acute Kidney Injury # Hyponatremia # Chronic Atrial Fibrillation # Hypothyroidism HOSPITAL COURSE: Ms. Scarlett Garrett is a pleasant 88 year old female with a past medical history significant for chronic atrial fibrillation and hypothyroidism who was admitted to the [facility] on 07/10/2023 for left upper extremity cellulitis from an infected cat bite. She was admitted to the Medicine service. Upon further evaluation, her left upper extremity ultrasound revealed, "moderate fluid pockets are seen in the area of interest left hand suggesting subcutaneous abscess." Her CT hand revealed, "moderate inflammatory changes are present involving the skin and subcutaneous fat of the forearm, wrist and hand without abscess visualized." General Surgery was consulted and she was evaluated by Dr. Meneses. On 07/12/2023, she underwent incision, drainage, and debridement of left wrist and hand abscess from cat bite. She tolerated the procedure well and, over the course of her hospitalization, her symptoms improved significantly. From a surgical standpoint, Dr. Meneses has cleared her for discharge with outpatient follow-up. He will arrange Home Health and pain medication through his clinic. Infectious Diseases was also consulted and she was evaluated by ESHA Birch. She has cleared her for discharge with 7 additional days of amoxicillin-clavulanate and doxycycline. Of note, she had a kidney injury as well as hyponatremia. Nephrology was consulted and she was evaluated by Dr. Sanders. Over the course of her hospital stay, her renal function and sodium levels improved. He has cleared her for discharge with outpatient follow-up. On 07/14/2023, she was seen on rounds and deemed medically stable for discharge. She was discharged with instructions to schedule follow-up appointments with her PCP (ESHA Gonzales), with Nephrology (Dr. Sanders), with General Surgery (Dr. Meneses), and with Pain Medicine (Dr. Rubalcava). She was provided prescriptions for amoxicillin-clavulanate and doxycycline. She and her were given the opportunity to ask questions and reported no further questions. Furthermore, all questions were answered to the best of my ability. A copy of this discharge summary will be sent to the above providers to facilitate continuity of care. Today, I personally spent 25 minutes on her case, of which greater than 50% of the time was spent in patient education, counseling, and coordination of care as described above. - Physical Exam General: Alert, In no apparent distress, Oriented x3 HEENT: Atraumatic, Mucous membr. moist/pink, Sclerae nonicteric Neck: JVD not distended Respiratory: Clear to auscultation bilaterally, Normal air movement Cardiovascular: No edema, Regular rate/rhythm, No murmurs Gastrointestinal: Normal bowel sounds, Soft, Non-distended, No tenderness Musculoskeletal: Swelling, Erythema, Tenderness (left hand/wrist) - improved Integumentary: Tenderness/swelling/ Erythema (left hand/wrist) - improved Neurological: Normal speech, Normal affect Vital Signs/Physical Exam: Temp Pulse Resp BP Pulse Ox 97.9 F 61 16 152/80 H 99 07/14/23 08:00 07/14/23 08:00 07/14/23 12:20 07/14/23 08:00 07/14/23 12:20 Laboratory Data at Discharge: WBC 10.00 thou/uL (4.3-10.9) 07/13/23 02:15 Hgb 10.6 g/dL (12.0-15.0) L D 07/14/23 02:19 Hct 30.8 % (36.0-45.0) L 07/14/23 02:19 Plt Count 186 thou/uL (152-406) 07/13/23 02:15 PT 10.5 SECONDS (9.5-12.5) 07/10/23 15:00 INR 0.95 07/10/23 15:00 APTT 29.5 SECONDS (24.3-36.9) 07/10/23 15:00 Sodium 133 mEq/L (136-145) L 07/14/23 02:19 Potassium 4.7 mEq/L (3.5-5.1) 07/14/23 02:19 BUN 16 mg/dL (7-18) 07/14/23 02:19 Creatinine 0.77 mg/dL (0.55-1.02) 07/14/23 02:19 Glucose 103 mg/dL (74-106) 07/14/23 02:19 Phosphorus 2.1 mg/dL (2.5-4.9) L 07/14/23 02:19 Magnesium 1.7 mg/dL (1.6-2.4) 07/14/23 02:19 Total Bilirubin 0.4 mg/dL (0.2-1.0) 07/10/23 15:00 AST 15 U/L (15-37) 07/10/23 15:00 ALT 24 U/L (13-56) 07/10/23 15:00 Alkaline Phosphatase 55 U/L (45-117) 07/10/23 15:00 Home Medications: Trazodone [Desyrel*] 100 mg PO BEDTIME 08/14/15 Ascorbic Acid [Vitamin C*] 2,000 mg PO BID 04/27/20 Cetirizine HCl [Zyrtec] 10 mg PO PRN PRN 12/16/20 Cyclobenzaprine [Flexeril*] 1 tab PO PRN PRN 03/15/22 Escitalopram Oxalate [Lexapro] 20 mg PO DAILY 03/15/22 Montelukast Sodium [Singulair] 10 mg PO DAILY 03/15/22 Aspirin [Aspirin EC 81 MG] 81 mg PO DAILY 03/29/23 Hydrocodone Bit/Acetaminophen [Hydrocodon-Acetaminoph 7.5-325] 1 tab PO DAILY PRN 03/29/23 Amiodarone HCl [Cordarone*] 1 tab PO BID 07/10/23 Furosemide 1 tab PO DAILY 07/10/23 Levothyroxine Sodium 1 tab PO DAILY 07/10/23 Magnesium Oxide [Magnesium] 1 tab PO DAILY 07/10/23 Metoprolol Tartrate [Lopressor*] 1 tab PO BID 07/10/23 Zinc Gluconate [Zinc Gluconate*] 1 tab PO DAILY 07/10/23 vit A and D3 in cod liver oiL [Cod Liver Oil Softgel] 1 tab PO DAILY 07/10/23 Amox/Clavulanate [Augmentin 875-125 Tab] 875 mg PO BID 7 Days #14 tab 07/14/23 Doxycycline Hyclate 100 mg PO BID 7 Days #14 tab 07/14/23 New Medications: Amox/Clavulanate [Augmentin 875-125 Tab] 875 mg PO BID 7 Days #14 tab Doxycycline Hyclate 100 mg PO BID 7 Days #14 tab Physician Discharge Instructions: 1. Please call and schedule a follow-up appointment with your PCP (ESHA Gonzales) in 3-5 days - Please discuss the possibility of starting a blood thinner for your atrial fibrillation at your upcoming visit 2. Please call and schedule a follow-up appointment with General Surgery (Dr. Meneses) in 5-7 days 3. Please call and schedule a follow-up appointment with Nephrology (Dr. Sanders) in 5-7 days 4. Please call and schedule a follow-up appointment with Pain Medicine (Dr. Rubalcava) in 5-7 days Medication changes: 1. Please take amoxicillin-clavulanate 875-125 mg two times per day 2. Please take doxycycline 100 mg two times per day Please follow-up with your PCP for medication refills/adjustments Diet: AHA Activity: No lifting more than 10 lbs Followup: Olive Gonzales FNP BC [ALLIED HEALTH PROFESSIONAL] - Prakash Sanders DO [ACTIVE - CAN ADMIT] - Jason Meneses MD [ACTIVE - CAN ADMIT] - Thierno Rubalcava DO [ACTIVE - CAN ADMIT] - Time spent managing pt's care (in minutes): 25
[2023-07-14 12:55] VITALS: BP 144/78; TEMP 97.3
[2023-07-14] MEDS ORDERED: VANCOMYCIN 1.25 GM in NA CHLORIDE 0.9% 250 ML IVPB SCH (17:00)
--- NOTE | 2023-07-14 22:38 | P.PN ---
Date of Service: 07/14/23 Vital Signs Temp Pulse Resp BP Pulse Ox 97.3 F 60 12 144/78 H 94 07/14/23 12:00 07/14/23 12:00 07/14/23 13:51 07/14/23 12:00 07/14/23 13:51 Microbiology Results 07/10/23 15:00 Blood - Blood Aerobic Blood Culture - Preliminary No growth in 24 hours. 07/10/23 15:00 Blood - Blood Anaerobic Blood Culture - Preliminary No growth in 24 hours. Assessment/ Plan: Nephrology No dyspnea No chest pain No acute events overnight Vitals, medications, blood work and imaging reviewed in the chart. General: In no apparent distress, Oriented x3, Cooperative HEENT: Atraumatic Neck: Supple Respiratory: Clear to auscultation bilaterally Cardiovascular: No edema, Regular rate/rhythm Gastrointestinal: Soft and benign, Non-distended Musculoskeletal: No clubbing, No contractures Integumentary: Erythema, Warmth Neurological: Normal speech Blood work reviewed in the chart. Imagings Data: EXAM DESCRIPTION: US - Extremity Nonvascular Complete - 07/11/2023 6:15 am CLINICAL HISTORY: left hand US to look for abscess Pain and swelling COMPARISON: <Comparisons> TECHNIQUE: Real-time sonographic evaluation of the area of interest was p erformed left hand. FINDINGS: Moderate fluid pockets are seen in the area of interest left hand suggesting subcutaneous abscess. Conclusions/Impression: Stage III GARY in the setting of hypovolemia and Celebrex -No NSAIDs -Continue IVF Hypovolemia Hyponatremia -Continue IVF with NS Hyperkalemia, resolved Hypophosphatemia -Encourage nutrition -Consider neutraphos Hypocalcemia -Start Ergo HTN -Monitor BP Anemia in chronic illness -Monitor H&H Left hand cellulitis -Continue abx and wound care Case reviewed with Dr. Blackwell Hospitalist & ID notes reviewed
== END 2023-07-14 14:31 | disposition home health service (06) | DRG 854 ==
LOC: ER 14:13 → ERHOLD 15:43 → 2ND 16:35
PROVIDERS: ADMIT Hospitalist; ATTEND Internal Medicine
PROC: 0JBK0ZZ Excision of Left Hand Subcutaneous Tissue and Fascia, Open Approach (ICD-10-PCS; principal; 2023-07-12 10:00)
DX: A41.9 Sepsis, unspecified organism (principal); E87.1 Hypo-osmolality and hyponatremia; L03.114 Cellulitis of left upper limb; R64 Cachexia; N18.4 Chronic kidney disease, stage 4 (severe); N17.9 Acute kidney failure, unspecified; L02.414 Cutaneous abscess of left upper limb; I48.20 Chronic atrial fibrillation, unspecified; R65.20 Severe sepsis without septic shock; I12.9 Hypertensive chronic kidney disease with stage 1 through stage 4 chronic kidney disease, or unspecified chronic kidney disease; D63.1 Anemia in chronic kidney disease; D63.8 Anemia in other chronic diseases classified elsewhere; E03.9 Hypothyroidism, unspecified; E83.51 Hypocalcemia; M19.90 Unspecified osteoarthritis, unspecified site; S41.152A Open bite of left upper arm, initial encounter; Z95.0 Presence of cardiac pacemaker; Z88.1 Allergy status to other antibiotic agents; Z95.2 Presence of prosthetic heart valve; Z68.21 Body mass index [BMI] 21.0-21.9, adult; Z90.49 Acquired absence of other specified parts of digestive tract; Z79.82 Long term (current) use of aspirin; Z79.899 Other long term (current) drug therapy; Z79.890 Hormone replacement therapy; Z96.649 Presence of unspecified artificial hip joint; Z90.710 Acquired absence of both cervix and uterus
CPT/HCPCS: 36415; 73201; 76881; 80048; 80053; 80202; 83605; 83735; 84100; 84145; 85014; 85018; 85025; 85610; 85730; 87040; 87070; 87075; 87205; 88304; 93005; 96365; 96375; 97161; 99285; J0692; J1100; J1170; J1650; J2001; J2270; J2405; J2704; J3010; J3475; J7030; J7050; J7120; Q9967

== ENCOUNTER 2023-09-12 10:24 | Emergency (ER) | payer OTHER ==
--- OUTSIDE RECORDS SUMMARY | 2023-09-12 10:33 | XMS REPORT | Continuity of Care Document ---
:[address] [facility] t Address [address] [place] [address] [address] [place] [address] Care Team Providers Name Role Phone DUNNSAUMYA GUILLENSAL Daily Primary Care Physician Unavailable GUS BRITO Attending Clinician Unavailable MARCO IRENE Attending Clinician Unavailable MARCO IRENE Attending Clinician Unavailable Ant Jeerz DO Attending Clinician Haja Jennings Attending Clinician Unavailable Kamran NANCE, Emy Attending Clinician Unavailable Gus Brito MD Attending Clinician Warner Heaton NP Attending Clinician WARNER HEATON Attending Clinician Unavailable Sissy Plascencia MD Attending Clinician Raymond Jj DO Attending Clinician Tabitha Barron MD Attending Clinician Angel Ramirez MD Attending Clinician [phone] Juan Burnham MD Attending Clinician Bao NANCE, Moody Robison Attending Clinician Unavailable HAMZAH FORMAN Attending Clinician Unavailable Dickson WEED BURNER, Hamzah Correia Attending Clinician [phone] Chace Nava Attending Clinician Unavailable Marco Irene MD Attending Clinician RONAN JOSHI Attending Clinician Unavailable IVAN HUTCHISON Attending Clinician Unavailable DANE FONSECA Attending Clinician Unavailable Lobo Sanchez Attending Clinician Unavailable GUS BRITO Admitting Clinician Unavailable Chace Nava Admitting Clinician Unavailable SISSY PLASCENCIA Admitting Clinician Unavailable Payers Payer Name Policy Type Policy Number Effective Date Expiration Date S genoveva UNITED MEDICARE HMO [id number] 2021 00:00:00 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 regurgitat [facility] kes ion ion Medical [place] Acute Acute Disease Active [facility] respirator respirator Rosey kes y y Medical insufficie insufficie Ce nter ncy ncy Acute Acute Disease Active [facility] blood loss blood loss Rose[facility] s anemia anemia Medical [place] Hyperglyce Hyperglyce Disease Active [facility] jonathon [facility] Allergies, Adverse Reactions, Alerts Allergy Allergy Status Severity Reaction(s) Onset Inactive Treating Comm ents Source Name Type Date Date Clinician Ciproflo Propensi Active Rash [facility] x[facility] ty to 04-09 [facility] adverse 00:00: Medical reaction 00 [place] [facility] Levoflox Propensi Active Rash [facility] acin ty to 04-09 [facility] adverse 00:00: Medical reaction 00 [place] [facility] CIPROFLO Allergy Active Low Rash [facility] XACIN 04-09 00:00: 00 LEVOFLOX Allergy Active Low Rash [facility] ACIN 04-09 00:00: 00 ciproflo DA Active [place] [facility]ASH [facility] xacin 04-01 Clear 00:00: [place] 00 [facility] CIPROFLO DRUG Active Rash 2019-10 [facility] XACIN INGREDI 10-19 ity of 00:00: [place] 00 [facility] Ciproflo Propensi Active Rash Method i [...] l s to drug levoflox DA Active [facility] acin 03-07 [place] 00:00: [facility] 00 [facility] l levoflox DA Active RI [facility]ASH [facility] acin 5-20 Clear 00:00: [place] 00 [facility] Family History Family Member Diagnosis Comments Start Date Stop Date Source Natural father Heart attack [facility] Natural mother Brain cancer [facility] Natural mother Brain cancer [facility] Natural sister Stroke [facility] Natural sister Stroke [facility] Social History Social Habit Start Date Stop Date Quantity Comments Source Sexual orientation [facility] Gender identity [facility] Alcohol intake 2022-05-28 2022-05-28 [facility] (finding) Tobacco use and 2022-04-22 2022-04-[address] [facility] [address] [facility] k[facility] exposure 00:00:00 00:00:00 tobacco non-user Medical Center History of Social 2017-04-20 2017-04-[address] function 00:00:00 00:00:00 Hospital Sex Assigned At [address] [facility] 00:00:00 00:[facility]:00 [facility] Center Smoking Status Start Date Stop Date Source Never smoked tobacco [facility] Medications Ordered Filled Start Stop Current [...] MG 10:39: mouth Medical tablet 23 nightly. [place] montelukast Yes 10mg QD Take [address] (SINGULAIR) 8-10 by mouth Luke s 10 mg 10:39: nightly. Medical tablet 23 [place] VITAMINS A Yes QD Take by [facility] AND D ORAL 8-10 mouth Lukes 10:39: daily . [address] cholecalcif Yes 5000U QD Take 5,[address] berta, 8-10 Units by Lukes vitamin D3, 10:39: mouth Medic al 50 mcg 23 daily . [place] (2,000 unit) Cap omega-3 Yes 2g Q.5D [...] 10:39: mouth Medical magnesium 23 daily . [place] Tab ZINC Yes 50mg QD Take [address] GLUCONATE 8-10 by mouth Lukes ORAL 10:39: daily . [address] cetirizine Yes 10mg QD Take [address] (ZyrTEC) 10 8-10 by mouth Luke s MG tablet 10:39: daily. Medica l 23 Center HYDROcodone Yes 1{tbl} Take [address] -acetaminop 8-10 tablet by Shelbie elida alberts (NORCO 10:39: mouth Medica l 7.5-325) [...] MG 10:39: mouth Medical tablet 23 nightly. [place] montelukast Yes 10mg QD Take 10 mg [...] Medic al 50 mcg 23 daily . Center (2,000 unit) Cap omega-3 Yes 2g Q.5D [...] MG 10:39: mouth Medical tablet 23 nightly. [place] montelukast Yes 10mg QD Take [address] (SINGULAIR) 8-10 by mouth Luke s 10 mg 10:39: nightly. Medical tablet 23 Center VITAMINS A Yes QD Take by [facility] AND D ORAL 8-10 mouth Lukes 10:39: daily . [address] cholecalcif Yes 5000U QD Take 5,[address] berta, 8-10 Units by Lukes vitamin D3, 10:39: mouth Medic al 50 mcg 23 daily . [place] (2,000 unit) Cap omega-3 Yes 2g Q.5D [...] by mouth Lukes ORAL 10:39: daily . [address] cetirizine Yes 10mg QD Take 10 [...] MG 10:39: mouth Medical tablet 23 nightly. [place] montelukast Yes 10mg QD Take [address] (SINGULAIR) 8-10 by mouth Luke s 10 mg 10:39: nightly. Medical tablet 23 Center VITAMINS A Yes QD Take by [facility] AND D ORAL 8-10 mouth Lukes 10:39: daily . [address] cholecalcif Yes 5000U QD Take 5,[address] berta, 8-10 Units by Lukes vitamin D3, 10:39: mouth Medic al 50 mcg 23 daily . [place] (2,000 unit) Cap omega-3 Yes 2g Q.5D [...] 10:39: mouth Medical magnesium 23 daily . [place] Tab ZINC Yes 50mg QD Take [address] GLUCONATE 8-10 by mouth Lukes ORAL 10:39: daily . [address] cetirizine Yes 10mg QD Take 10 [...] ical 00 by mouth Center daily. furosemide 2-0 Yes 20mg QD Take 1 [facility] t (LASIX) 20 7-20 tablet (20 Shelbie es MG tablet 00:00: mg total) Med ical 00 by mouth Center daily. DILTIAZEM 2021-0 2021- No 30mg Q.[id number] Take [address] HCL ORAL -06 05- [id number] by mouth 3 Lukes 10:39: 00:00 3D (three) Medical 12 :00 times Center daily . TURMERIC 2021-0 2021- No 4000mg QD Take 4,[address] ORAL 7- 07-19 mg by Lukes 10:39: 00:00 mouth Medical 12 :00 daily . Center DILTIAZEM 2021-0 2021- No 30mg Q.[id number] Take [address] HCL ORAL 7-06 05- [id number] by mouth 3 Lukes 10:39: 00:00 3D (three) Medical 12 :00 times Center daily . TURMERIC 2021-0 2- No 4000mg QD Take 4,[address] ORAL 7-19 07-19 mg by Lukes 10:39: 00:00 mouth Medical 12 :00 daily . Center metoprolol 2022-0 Yes 50mg Q.[id number] Take [address] tartrate 7-19 [id number] tablet (50 Lukes (LOPRESSOR) 00:00: 3D mg total) M edical 50 MG 00 by mouth 3 Center tablet (three) times daily. metoprolol 2022-0 Yes 50mg Q.[id number] Take [address] tartrate 7-19 [id number] tablet (50 Lukes (LOPRESSOR) 00:00: 3D mg total) M edical 50 MG 00 by mouth 3 Center tablet (three) times daily. metoprolol 2021-0 Yes 50mg Q.[id number] Take [address] tartrate 7-19 [id number] tablet (50 [facility]ukes (LOPRESSOR) 00:00: 3D mg total) M edical 50 MG 00 by mouth 3 Center tablet (three) times daily. metoprolol 2021-0 Yes 50mg Q.[id number] Take [address] tartrate 7-19 [id number] tablet (50 [facility]ukes (LOPRESSOR) 00:00: 3D mg [...] MG 14:41: daily. Hospita tablet 00 l metoprolol 2020-0 Yes 25mg Q.5D Take [...] 1 Me thodi n 8-05 tablet by (THERAGRAN) 14:41: mouth Hospi ta tablet 00 daily. l omega-3 2020-0 Yes 1g Q.5D Take 1 g Method i acid ethyl 8-[address] esters 14:41: (two) Hospita (LOVAZA) 1 00 times a l gram day. capsule calcium 2020-0 Yes 1{tbl} QD Take 1 Method i carbonate-v 8-05 tablet by itamin D3 14:41: mouth Hospita 250-125 00 daily. l mg-unit tablet traZODone 2020-0 Yes 100mg QD Take 100 [...] 1 Me thodi n 8-05 tablet by (THERAGRAN) 14:41: mouth Hospi ta tablet 00 [...] 15 times a l tablet day. escitalopra 0 Yes 10mg QD Take 10 mg Methodi [...] 12:11: daily. Hospita tablet 15 l traZODone 0 Yes 100mg QD Take 100 Met hodi [...] st 0.01 % (0.1 12:11: vagina Hosp felsiha mg/gram) 15 daily. l vaginal cream nitrofurant 0 Yes 50mg QD Take 50 mg Methodi oin 6-[address] (MACRODANTI 12:11: daily. Hosp felisha N) 50 MG 15 l capsule metoprolol Yes 25mg Q.5D Take 25 mg M ethodi tartrate [address] (LOPRESSOR) 12:11: (two) [...] 00 l 10-325 mg per tablet celecoxib 2015-0 Yes Methodi (CeleBREX) 5-18 st 200 MG 00:00: Hospita capsule 00 l HYDROcodone Yes Method i -acetaminop 5-18 st hen (NORCO 00:00: Hospita 10-325) 00 l 10-325 mg per tablet Immunizations Ordered Filled Immunization Date Status Comments [facility] e Immunization Name Name [facility] TORY-19 2020-11-24 Completed [facility]ianist MRNA VACCINATION 00:00:00 [facility] PFIZER COVID-19 2020-11-24 Completed Confucianist MRNA VACCINATION 00:00:00 [facility] COVID-19 2020-11-24 Completed Confucianist MRNA VACCINATION 00:00:00 [facility] COVID-19 2020-11-24 Completed Confucianist MRNA VACCINATION 00:00:00 [facility] COVID-19 2020-11-03 Completed Confucianist MRNA VACCINATION 00:00:00 [facility] COVID-19 2020-11-03 Completed Confucianist MRNA VACCINATION 00:00:00 [facility] COVID-19 2020-11-03 Completed Confucianist MRNA VACCINATION 00:00:00 [facility] COVID-19 2020-11-03 Completed [facility]ucianist MRNA VACCINATION 00:00:00 [facility] COVID-19 Unknown Completed Confuc[facility]ist MRNA VACCINATION [place] [address] Unknown Completed [facility]uc[facility] MRNA VACCIN[facility] COVID-19 Unknown Completed Confucianist MRNA VACCINATION [facility] Vital Signs Vital Name Observation Time Observation [...] WEIGHT 2022-04-09 11:20:00 75.751 kg Systolic blood 2023-09-05 15:47:00 156 mm[Hg] Method [facility] Hospital pressure Diastolic blood 2023-09-05 15:47:00 75 mm[Hg] [facility] pressure Heart rate 2023-09-05 15:47:00 63 /min [facility] Body temperature 2023-09-05 15:47:[address] [facility] Respiratory rate 2023-09-05 15:47:00 18 /min [facility] Oxygen saturation in 2023-09-05 15:47:00 100 /min [facility] Arterial blood by Pulse oximetry Body height 2023-09-05 15:44:00 175.3 cm [facility] Body weight 2023-09-05 15:44:00 63.504 kg [facility] BMI 2023-09-05 15:44:00 20.67 kg/m2 [facility] Systolic blood 2022-05-28 10:36:00 136 mm[Hg] [facility] Diastolic blood 2022-05-28 10:36:00 79 mm[Hg] [facility] Heart rate 2022-05-28 10:36:00 89 /min [facility] Body height 2022-05-28 10:36:00 175.3 cm [facility] Body weight 2022-05-28 10:36:00 66.679 kg [facility] BMI 2022-05-28 10:36:00 21.71 kg/m2 [facility] Oxygen saturation in 2022-05-28 10:36:00 98 /min [facility] Arterial blood by Medical Ce nter Pulse oximetry Body temperature 2022-05-06 08:00:00 36.39 Deanna [facility] Respiratory rate 2022-05-06 08:00:00 19 /min [facility] Procedures Procedure Date / Time Performing Clinician Source Performed CT CHEST WO CONTRAST 2023-09-05 16:37:40 [facility] CT MAXILLOFACIAL WO 2023-09-05 16:37:30 [facility] CONTRAST CT HEAD WO CONTRAST 2023-09-05 16:37:20 [facility] POCT-GLUCOSE METER 2022-05-06 07:45:00 Gus Brito [facility] BASIC METABOLIC PANEL 2022-05-06 05:58:00 Lux Campbell [facility] MAGNESIUM 2022-05-06 05:58:00 [facility] ([facility] ONLY) 2022-05-06 05:58:00 [facility] 1 VIEW PORTABLE / 2022-05-06 05:18:00 Silvina Alonsodariobhavin carreon [facility] POCT-GLUCOSE METER 2022-05-05 21:22:00 BritoGus [facility] POCT-GLUCOSE METER 2022-05-05 16:48:00 Brito, Gus Mason [facility] POCT-GLUCOSE METER 2022-05-05 11:39:00 Brito, Gus Mason [facility] XR CHEST 1 VIEW PORTABLE / 2022-05-05 09:01:00 Tonia-Smart, Sonya [facility] POCT-GLUCOSE METER 2022-05-05 07:16:00 BritoGus [facility] BASIC METABOLIC PANEL 2022-05-05 03:55:00 Lux Campbell [facility] MAGNESIUM 2022-05-05 03:55:00 Lux Campbell [facility] CBC (HEMOGRAM ONLY) 2022-05-05 03:55:00 Lux Campbell [facility] POCT-GLUCOSE METER 2022-05-04 21:37:00 BritoGus [facility] POCT-GLUCOSE METER 2022-05-04 17:32:00 BritoGus bruce [facility] XR CHEST 1 VIEW PORTABLE / 2022-05-04 14:20:00 Alfie Gonsalves [facility] POCT-GLUCOSE METER 2022-05-04 12:15:00 Brito, Gus Mason [facility] POCT-GLUCOSE METER 2022-05-04 08:44:00 Brito, Gus Mason [facility] XR CHEST 1 VIEW PORTABLE / 2022-05-04 06:41:00 Tonia-Smart, Sonya [facility] BASIC METABOLIC PANEL 2022-05-04 03:42:00 Lux Campbell [facility] MAGNESIUM 2022-05-04 03:42:00 Lux Campbell Aaron [facility] CBC (HEMOGRAM ONLY) 2022-05-04 03:42:00 Lux Campbell [facility] POCT-GLUCOSE METER 2022-05-03 21:24:00 BritoGus bruce [facility] POCT-GLUCOSE METER 2022-05-03 17:03:00 BritoGus bruce [facility] XR CHEST 1 VIEW PORTABLE / 2022-05-03 12:56:00 Tonia-Smart, Sonya [facility] POCT-GLUCOSE METER 2022-05-03 11:29:00 Gus Brito [facility] POCT-GLUCOSE METER 2022-05-03 07:19:00 Gus Brito [facility] BASIC METABOLIC PANEL 2022-05-03 05:18:00 Lux Campbell [facility] MAGNESIUM 2022-05-03 05:18:00 Lux Campbell [facility] CBC (HEMOGRAM ONLY) 2022-05-03 05:18:00 Lux Campbell [facility] POCT-GLUCOSE METER 2022-05-02 21:05:00 Gus Brito [facility] POCT-GLUCOSE METER 2022-05-02 16:39:00 Gus Brito [facility] XR CHEST 1 VIEW PORTABLE / 2022-05-02 13:32:00 Tonia-Smart, Sonya h [facility] POCT-GLUCOSE METER 2022-05-02 12:17:00 Gus Brito [facility] 2D ECHO W/ DOPPLER 2022-05-02 12:16:00 Tonia-Smart, [facility] (CW/PW/COLOR) [facility] 2D ECHO W/ DOPPLER 2022-05-02 10:26:33 Tonia-Smart, [facility] (CW/PW/COLOR) [facility] POCT-GLUCOSE METER 2022-05-02 07:14:00 Gus Brito [facility] XR CHEST 1 VIEW PORTABLE / 2022-05-02 06:43:00 kelechi Noahoswald Muir [facility] BASIC METABOLIC PANEL 2022-05-02 04:44:00 Lux Campbell [facility] MAGNESIUM 2022-05-02 04:44:00 Lux Campbell [facility] CBC (HEMOGRAM ONLY) 2022-05-02 04:44:00 Lux Campbell [facility] POCT-GLUCOSE METER 2022-05-01 21:14:00 Gus Brito [facility] POCT-GLUCOSE METER 2022-05-01 17:23:00 Gus Brito [facility] POCT-GLUCOSE METER 2022-05-01 11:24:00 Gus Brito [facility] XR CHEST 1 VIEW PORTABLE / 2022-05-01 09:01:[address] [facility] POCT-GLUCOSE METER 2022-05-01 07:39:00 Gus Brito [facility] XR CHEST 1 VIEW PORTABLE / 2022-05-01 06:46:00 Dominguez Noahoswald Mahoneyethel [facility] BASIC METABOLIC PANEL 2022-05-01 04:27:00 Lux Campbell [facility] MAGNESIUM 2022-05-01 04:27:00 Lux Campbell Aaron [facility] CBC (HEMOGRAM ONLY) 2022-05-01 04:27:00 Lux Campbell Aaron [facility] POCT-GLUCOSE METER 2022-04-30 21:16:00 Gus Brito [facility] POCT-GLUCOSE METER 2022-04-30 17:14:00 Gus Brito [facility] POCT-GLUCOSE METER 2022-04-30 11:56:00 Raymond Jj [facility] POCT-GLUCOSE METER 2022-04-30 07:25:00 Анна [facility] XR CHEST 1 VIEW PORTABLE / 2022-04-30 07:07:00 Clyde Mix [facility] POCT-GLUCOSE METER 2022-04-29 21:20[facility]00 [facility] 2022-04-29 16:15:00 [facility] POCT-GLUCOSE METER 2022-04-29 10:59:00 [facility] XR CHEST 1 VIEW PORTABLE / 2022-04-29 10:50:00 Heide Gaytan [facility] XR CHEST 1 VIEW PORTABLE / 2022-04-29 09:20:00 Shravan Joseph [facility] POCT-GLUCOSE METER 2022-04-29 06:59:00 [facility] CBC W/PLT COUNT & AUTO 2022-04-29 03:48:00 Odilia Alaniz [facility] DIFFERENTIAL [facility] BASIC METABOLIC PANEL 2022-04-29 03:48:00 Corbin [facility] MAGNESIUM 2022-04-29 03:48:00 Corbin [facility] PHOSPHORUS 2022-04-29 03:48:00 Corbin [facility] CALCIUM, IONIZED 2022-04-29 03:48:00 Corbin [facility] CBC W/PLT COUNT & AUTO 2022-04-29 03:48:00 Odilia Alaniz [facility] DIFFERENTIAL [facility] (CELLAVISION MANUAL DIFF) 2022-04-29 03:48:00 Odilia Alaniz [facility] POCT-GLUCOSE METER 2022-04-29 01:31:00 [facility] XR CHEST 1 VIEW PORTABLE / 2022-04-29 01:09:00 Odilia Alaniz [facility] POCT-GLUCOSE METER 2022-04-28 16:23:00 Temo [facility] POCT-GLUCOSE METER 2022-04-28 11:48:00 Temo [facility] XR CHEST 1 VIEW PORTABLE / 2022-04-28 11:10:00 Arnulfo Duarte [facility] CBC W/PLT COUNT & AUTO 2022-04-28 03:28:00 Odilia Alaniz [facility] DIFFERENTIAL [facility] BASIC METABOLIC PANEL 2022-04-28 03:28:00 Odilia Alaniz [facility] MAGNESIUM 2022-04-28 03:28:00 Odilia Alaniz [facility] PHOSPHORUS 2022-04-28 03:28:00 Odilia Alaniz [facility] CALCIUM, IONIZED 2022-04-28 03:28:00 Odilia Alaniz [facility] CBC W/PLT COUNT & AUTO 2022-04-28 03:28:00 Odilia Alaniz [facility] DIFFERENTIAL [facility] (CELLAVISION MANUAL DIFF) 2022-04-28 03:28:00 Odilia Alaniz [facility] XR CHEST 1 VIEW PORTABLE / 2022-04-28 01:00:[address] [facility] POCT-GLUCOSE METER 2022-04-28 00:07:00 Temo [facility] PREPARE RBC 2022-04-27 23:54:00 Gus Brito [facility] POCT-GLUCOSE METER 2022-04-27 17:57:00 [facility]SE [facility] 2022-04-27 11:02:00 [facility] XR CHEST 1 VIEW PORTABLE / 2022-04-27 07:52:00 Odilia Alaniz [facility] POCT-GLUCOSE METER 2022-04-27 07:37:00 [facility] BLOOD [facility]AS, ARTERIAL 2022-04-27 05:42:00 Odilia Alaniz [facility] OXYGEN SATURATION, 2022-04-27 05:42:00 Odilia Alaniz [facility] MEASURED [facility] CBC W/PLT COUNT & AUTO 2022-04-27 05:41:00 Odiila Alaniz [facility] Vivek long [facility] DIFFERENTIAL [facility] BASIC METABOLIC PANEL 2022-04-27 05:41:00 Odilia Alaniz [facility] MAGNESIUM 2022-04-27 05:41:00 Odilia Alaniz [facility] PHOSPHORUS 2022-04-27 05:41:00 Corbin [facility] CALCIUM, IONIZED 2022-04-27 05:41:00 Odilia Alaniz [facility] CBC W/PLT COUNT & AUTO 2022-04-27 05:41:[address] [facility] DIFFERENTIAL [facility] (CELLAVISION MANUAL DIFF) 2022-04-27 05:41:00 Odilia Alaniz [facility] POCT-GLUCOSE METER 2022-04-27 00:23:00 Temo [facility] PREPARE LEUKO-REDUCED RBC 2022-04-26 23:54:00 Jayce Mauricio [facility] XR CHEST 1 VIEW PORTABLE / 2022-04-26 20:34:[address] [facility] HEMOGLOBIN AND HEMATOCRIT 2022-04-26 20:28:00 Odilia Alaniz [facility] POCT-GLUCOSE METER 2022-04-26 17:25:00 [facility] PLASMA 2022-04-26 11:43:00 Gus Brito [facility] XR CHEST 1 VIEW PORTABLE / 2022-04-26 11:41:00 Odilia Alaniz [facility] OXYGEN SATURATION, 2022-04-26 11:24:00 Odilia Alaniz [facility] MEASURED [facility] BLOOD GAS, ARTERIAL 2022-04-26 11:06:00 Trailer Mechanic, Odilia CBC (HEMOGRAM ONLY) 2022-04-26 10:52:00 Corbin [facility] BASIC METABOLIC PANEL 2022-04-26 10:52:00 Corbin [facility] MAGNESIUM 2022-04-26 10:52:00 Coribn [facility] PHOSPHORUS 2022-04-26 10:52:00 Corbin [facility] CALCIUM, IONIZED 2022-04-26 10:52:00 [facility] LACTIC ACID, ARTERIAL 2022-04-26 10:52:00 [facility] PT[facility] 2022-04-26 10:52:00 Corbin [facility] FIBRINOGEN 2022-04-26 10:52:00 Corbin [facility] TRANSFUSE LEUKO-REDUCED 2022-04-26 09:34:00 Jayce Mauricio [facility] RED BLOOD CELLS [facility] RRL CRITICAL LABS 2022-04-26 09:12:15 Tabitha Barron [facility] (ABG,NA,K,H&H,GLUCOSE) Medical C enter CALCIUM, IONIZED 2022-04-26 09:12:15 Tabitha Barron [facility] BLOOD GAS, ARTERIAL 2022-04-26 09:12:15 Tabitha Barron [facility] SODIUM NA-STAT LAB 2022-04-26 09:12:15 Tabitha Barron [facility] POTASSIUM-STAT LAB 2022-04-26 09:12:15 Tabitha Barron [facility] GLUCOSE-STAT LAB 2022-04-26 09:12:15 Tabitha Barron [facility] HGB/HCT (H&H) - STAT LAB 2022-04-26 09:12:15 Tabitha Barron [facility] THORACOTOMY 2022-04-26 08:27:00 Gus Brito [facility] POCT-GLUCOSE METER 2022-04-26 05:49:00 [facility] METABOLIC PANEL 2022-04-26 02:04:00 Arnulfo Duarte [facility] MAGNESIUM 2022-04-26 02:04:00 Gerald, [facility] PHOSPHORUS 2022-04-26 02:04:00 [facility] (HEMO[facility] ONLY) 2022-04-26 02:04:00 Gerald [facility] CALCIUM, IONIZED 2022-04-26 02:04:00 Clyde Mix [facility] XR CHEST 1 VIEW PORTABLE / 2022-04-26 01:47:00 Odilia Alaniz [facility] PREPARE RBC 2022-04-25 23:54:00 Tiffany [facility] PREPARE PLATELETS 2022-04-25 23:54:00 Gus Brito [facility] PREPARE CRYOPRECIPITATE 2022-04-25 23:54:00 Gus Brito [facility] POCT-GLUCOSE METER 2022-04-25 23:50:00 Temo [facility] BASIC METABOLIC PANEL 2022-04-25 18:27:00 [facility] 2022-04-25 18:27:00 [facility], 2022-04-25 18:27:00 [facility] HEMO[facility] HEMATOCRIT 2022-04-25 18:27:00 Iginiae, [facility] POCT-GLUCOSE METER 2022-04-25 16:29:00 Temo [facility] POCT-GLUCOSE METER 2022-04-25 13:09:00 [facility] (HEMO[facility] ONLY) 2022-04-25 13:07:00 Odilia Alaniz PT/APTT 2022-04-25 13:07:00 Odilia Alaniz [facility] [facility] FIB[facility]INOGEN 2022-04-25 13:07:00 [facility] CHEST WITHOUT IV 2022-04-25 10:14:00 Corbin Odilia [facility] CONTRAST [facility] CBC (HEMOGRAM ONLY) 2022-04-25 09:33:00 Corbin [facility] POCT-GLUCOSE METER 2022-04-25 08:07:00 Temo [facility] HEMATOCRIT-STAT LAB 2022-04-25 06:42:00 Gerald [facility] POCT-GLUCOSE METER 2022-04-25 05:58:00 Temo [facility] XR CHEST 1 VIEW PORTABLE / 2022-04-25 05:37:[address] [facility] BEDSIDE [facility] RI INSERT 2022-04-25 05:10:52 SloaneRupesh [facility] CATH,ART,PERCUT,SHORTTERM Polycarp [facility] LACTIC ACID, VENOUS 2022-04-25 04:24:[address] [facility] BLOOD GAS, VENOUS 2022-04-25 04:24:00 Luly [facility] PROTHROMBIN TIME/INR 2022-04-25 03:48:00 Luly [facility] APTT 2022-04-25 03:48:00 Luly [facility] FIBRINOGEN 2022-04-25 03:48:00 Luly [facility] BASIC METABOLIC PANEL 2022-04-25 03:06:00 Arnulfo Duarte [facility] MAGNESIUM 2022-04-25 03:06:00 [facility] PHOS[facility]ORUS 2022-04-25 03:06:00 Gerald [facility] CBC (HEMOGRAM ONLY) 2022-04-25 03:06:00 Arnulfo Duarte [facility] CALCIUM, IONIZED 2022-04-25 03:06:00 Clyde Mix [facility] HEPATIC FUNCTION PANEL 2022-04-25 03:06:00 Jayce Mauricio [facility] POCT-GLUCOSE METER 2022-04-25 02:11:00 Shahana Plascenciayanka [facility] XR CHEST 1 VIEW PORTABLE / 2022-04-25 01:42:[address] [facility] BEDSIDE [facility] POCT-GLUCOSE METER 2022-04-24 23:52:00 Temo [facility] ECG 12-LEAD 2022-04-24 21:44:11 Unknown, Hl7 [facility] ECG 12-LEAD 2022-04-24 21:44:11 Unknown, Hl7 [facility] RRL CRITICAL LABS 2022-04-24 21:16:00 Odilia Alaniz CHIk es (ABG,NA,K,H&H,GLUCOSE) [facility] enter BLOOD GAS, ARTERIAL 2022-04-24 21:16:00 [facility] SODIUM NA-STAT LAB 2022-04-24 21:16:00 [facility] POTASSIUM-STAT LAB 2022-04-24 21:16:00 [facility] GLUCOSE-STAT LAB 2022-04-24 21:16:00 [facility] HGB/HCT (H&H) - STAT LAB 2022-04-24 21:16:00 [facility] CALCIUM, IONIZED 2022-04-24 19:59:00 ahClyde [facility] LACTIC ACID, ARTERIAL 2022-04-24 19:59:00 Ukah, Clyde Andre I [facility] RRL CRITICAL LABS 2022-04-24 19:59:00 Odilia Alaniz [facility] es (ABG,NA,K,H&H,GLUCOSE) [facility] enter BLOOD GAS, ARTERIAL 2022-04-24 19:59:00 Le, [facility] SODIUM NA-STAT LAB 2022-04-24 19:59:00 Le, [facility] POTASSIUM-STAT LAB 2022-04-24 19:59:00 Le, [facility] GLUCOSE-STAT LAB 2022-04-24 19:59:00 Le, [facility] HGB/HCT (H&H) - STAT LAB 2022-04-24 19:59:00 Le, [facility] BASIC METABOLIC PANEL 2022-04-24 19:52:00 Uk [facility] MAGNESIUM 2022-04-24 19:52:00 [facility] CBC W/PLT COUNT & AUTO 2022-04-24 18:05:00 Gerald [facility] RRL CRITICAL LABS 2022-04-24 18:05:00 [facility] (ABG,NA,K,H&H,GLUCOSE) Medical C enter BLOOD GAS, ARTERIAL 2022-04-24 18:05:00 [facility] SODIUM NA-STAT LAB 2022-04-24 18:05:00 [facility] POTASSIUM-STAT LAB 2022-04-24 18:05:00 [facility] GLUCOSE-STAT LAB 2022-04-24 18:05:00 [facility] HGB/HCT (H&H) - STAT LAB 2022-04-24 18:05:00 [facility] CBC W/PLT COUNT & AUTO 2022-04-24 18:05:00 Gerald [facility] (CELLAVISION MANUAL DIFF) 2022-04-24 18:05:00 Arnulfo Duarte [facility] XR CHEST 1 VIEW PORTABLE / 2022-04-24 15:54:00 Clyde Mix [facility] PROTHROMBIN TIME/INR 2022-04-24 15:47:00 Dominguez, [facility] APTT 2022-04-24 15:47:00 Dominguez, Clyde Powell [facility] FIBRINOGEN 2022-04-24 15:47:00 Uk, [facility] OXYGEN SATURATION, 2022-04-24 15:47:00 [facility], [facility] LACTIC ACID, ARTERIAL 2022-04-24 15:47:00 [facility], [facility] CALCIUM, IONIZED 2022-04-24 15:46:00 [facility], [facility] CBC (HEMOGRAM ONLY) 2022-04-24 15:46:00 [facility] BASIC METABOLIC PANEL 2022-04-24 15:46:00 Arnulfo Duarte [facility] BLOOD GAS, ARTERIAL 2022-04-24 15:46:00 Gerald [facility] MAGNESIUM 2022-04-24 15:46:00 Gerald [facility] PHOSPHORUS 2022-04-24 15:46:00 Gerald [facility] ANESTHESIA PERIPHERAL 2022-04-24 14:49:53 [facility] TRANSFUSE CRYOPRECIPITATE 2022-04-24 13:50:00 [facility]IT[facility]S 2022-04-24 13:47:20 Angel Ramirez [facility] (ABG,NA,K,H&H,GLUCOSE) [facility] enter CALCIUM, IONIZED 2022-04-24 13:47:[address] [facility] PROTHROMBIN TIME/INR 2022-04-24 13:47:20 James [facility] APTT 2022-04-24 13:47:20 James [facility] FIBRINOGEN 2022-04-24 13:47:20 James [facility] PLATELET COUNT 2022-04-24 13:47:20 James [facility] BLOOD GAS, ARTERIAL 2022-04-24 13:47:[address] [facility] SODIUM NA-STAT LAB 2022-04-24 13:47:[address] [facility] POTASSIUM-STAT LAB 2022-04-24 13:47:[address] [facility] GLUCOSE-STAT LAB 2022-04-24 13:47:[address] [facility] HGB/HCT (H&H) - STAT LAB 2022-04-24 13:47:20 Angel Ramirez [facility] POCT-ACT 2022-04-24 13:35:00 Temo [facility] PROTHROMBIN TIME/INR 2022-04-24 13:31:25 [facility] FIBRINOGEN 2022-04-24 13:31:25 James [facility] POCT-ACT 2022-04-24 13:03:00 Temo [facility] BLOOD GAS, ARTERIAL 2022-04-24 13:02:[address] [facility] SODIUM NA-STAT LAB 2022-04-24 13:02:[address] [facility] POTASSIUM-STAT LAB 2022-04-24 13:02:[address] [facility] GLUCOSE-STAT LAB 2022-04-24 13:02:[facility] - STAT LAB 2022-04-24 13:02:[address] [facility] RRL CRITICAL LABS 2022-04-24 13:02:09 [facility] (ABG,NA,K,H&H,GLUCOSE) [facility] enter CALCIUM, IONIZED 2022-04-24 13:02:[address] [facility] PROTHROMBIN TIME/INR 2022-04-24 13:02:09 [facility] APTT 2022-04-24 13:02:09 [facility] FIBRINOGEN 2022-04-24 13:02:09 [facility] TRANSFUSE LEUKO-REDUCED 2022-04-24 12:50:00 DunklinAngel wagoner [facility] PLATELETS [facility] POCT-ACT 2022-04-24 12:02:00 Temo [facility] RRL CRITICAL LABS 2022-04-24 11:59:47 Odilia Alaniz [facility] es (ABG,NA,K,H&H,GLUCOSE) [facility] enter BLOOD GAS, ARTERIAL 2022-04-24 11:59:47 [facility] SODIUM NA-STAT LAB 2022-04-24 11:59:47 [facility] POTASSIUM-STAT LAB 2022-04-24 11:59:47 [facility] GLUCOSE-STAT LAB 2022-04-24 11:59:47 [facility] HGB/HCT (H&H) - STAT LAB 2022-04-24 11:59:47 [facility] POCT-ACT 2022-04-24 11:32:00 Temo [facility] RRL CRITICAL LABS 2022-04-24 11:29:33 Odilia Alaniz [facility] Shelbie es (ABG,NA,K,H&H,GLUCOSE) [facility] enter BLOOD GAS, ARTERIAL 2022-04-24 11:29:33 Ess[facility]Jerold [facility] SODIUM NA-STAT LAB 2022-04-24 11:29:33 Essie [facility] POTASSIUM-STAT LAB 2022-04-24 11:29:33 Essie [facility] GLUCOSE-STAT LAB 2022-04-24 11:29:33 Essie [facility] HGB/HCT (H&H) - STAT LAB 2022-04-24 11:29:[address] [facility] MISCELLANEOUS LAB ORDER 2022-04-24 11:23:[address] [facility] PLATELET COUNT 2022-04-24 11:23:11 James [facility] RRL CRITICAL LABS 2022-04-24 11:00:10 Odilia Alaniz [facility] (ABG,NA,K,H&H,GLUCOSE) [facility] enter BLOOD GAS, ARTERIAL 2022-04-24 11:00:10 Essie [facility] SODIUM NA-STAT LAB 2022-04-24 11:00:10 Essie [facility] POTASSIUM-STAT LAB 2022-04-24 11:00:10 Essie [facility] GLUCOSE-STAT LAB 2022-04-24 11:00:10 [facility] HGB/HCT (H&H) - STAT LAB 2022-04-24 11:00:10 [facility] TRANSFUSE LEUKO-REDUCED 2022-04-24 11:00:00 Angel Ramirez [facility] RED BLOOD CELLS [facility] POCT-ACT 2022-04-24 10:52:00 Sissy Plascencia [facility] RRL CRITICAL LABS 2022-04-24 10:50:28 Odilia Alaniz [facility] (ABG,NA,K,H&H,GLUCOSE) [facility] enter BLOOD GAS, ARTERIAL 2022-04-24 10:50:28 Essie [facility] SODIUM NA-STAT LAB 2022-04-24 10:50:28 Le, [facility] POTASSIUM-STAT LAB 2022-04-24 10:50:28 Essie, [facility] GLUCOSE-STAT LAB 2022-04-24 10:50:28 [facility] H[facility]/HCT (H&H) - STAT LAB 2022-04-24 10:50:28 [facility] ANESTHESIA LARS 2022-04-24 10:43:26 Radha Becerril [facility] POCT-ACT 2022-04-24 10:23:00 Temo [facility] RRL CRITICAL LABS 2022-04-24 10:22:17 Odilia Alaniz [facility] (ABG,NA,K,H&H,GLUCOSE) [facility] enter BLOOD GAS, ARTERIAL 2022-04-24 10:22:17 Ess[facility]old [facility] SODIUM NA-STAT LAB 2022-04-24 10:22:17 Le [facility] POTASSIUM-STAT LAB 2022-04-24 10:22:17 Essie [facility] GLUCOSE-STAT LAB 2022-04-24 10:22:17 Essie[facility] HGB/HCT (H&H) - STAT LAB 2022-04-24 10:22:[address] [facility] POCT-ACT 2022-04-24 09:25:00 Temo [facility] TRANSFUSE LEUKO-REDUCED 2022-04-24 08:34:00 Jayce Mauricio [facility] RED BLOOD CELLS [facility] RRL CRITICAL LABS 2022-04-24 08:01:56 [facility] (ABG,NA,K,H&H,GLUCOSE) [facility] enter CALCIUM, IONIZED 2022-04-24 08:01:[address] [facility] BLOOD GAS, ARTERIAL 2022-04-24 08:01:[address] [facility] SODIUM NA-STAT LAB 2022-04-24 08:01:56 Cabrera Ramirezsumit [facility] POTASSIUM-STAT LAB 2022-04-24 08:01:[address] [facility] GLUCOSE-STAT LAB 2022-04-24 08:01:[address] [facility] HGB/HCT (H&H) - STAT LAB 2022-04-24 08:01:[address] [facility] REPAIR, MITRAL VALVE 2022-04-24 07:14:00 Brito, Gus Mason [facility] REPAIR, TRICUSPID VALVE 2022-04-24 07:14:00 Brito, Gus Mason [facility] ABLATION,RADIOFREQUENCY 2022-04-24 07:14:00 Brito, Gus Mason [facility] CARDIAC-THORASCOPIC/ Medical Kia ter LAPAROSCOPIC APPROACH THORACOTOMY 2022-04-24 07:14:00 Brito, Gus Mason [facility] MAZE PROCEDURE, USING 2022-04-24 07:14:00 Brito, Gus Mason [facility] RADIOFREQUENCY ABLATION [facility] ECHOCARDIOGRAM, 3D, 2022-04-24 07:14:00 Brito, Gus Mason [facility] TRANSESOPHAGEAL [facility] SARS-COV2/RT-PCR ([facility] & 2022-04-24 00:14:00 Clyde Mix [facility] REF LABS) [facility] ECG 12-LEAD 2022-04-23 20:45:18 Anay Lemus [facility] ECG 12-LEAD 2022-04-23 20:45:18 Unknown, Hl7 Doctor [facility] ECG 12-LEAD 2022-04-23 20:44:44 Unknown, Hl7 Doctor [facility] ABORH, MANUAL 2022-04-23 18:26:00 Sonia Still [facility] PROTHROMBIN TIME/INR 2022-04-23 18:25:00 [facility] APTT 2022-04-23 18:25:00 [facility] CBC W/PLT COUNT & AUTO 2022-04-23 18:25:00 [facility]ay [facility]us [facility] CBC W/PLT COUNT & AUTO 2022-04-23 18:25:00 Anay Lemus [facility] DIFFERENTIAL [facility] R & L CATH / CORONARY 2022-04-23 09:59:00 [facility] ANGIOS (+/- LV) [facility] ECG 12-LEAD 2022-04-23 07:57:40 Tem[facility] CARDIAC CATH REPORT - SCAN 2022-04-23 00:00:00 Oscar Riddle [facility] PROTHROMBIN TIME/INR 2022-04-22 11:13:[address] [facility] COMPREHENSIVE METABOLIC 2022-04-22 11:13:00 Hamzah Forman [facility] PANEL [facility] CBC W/PLT COUNT & AUTO 2022-04-22 11:13:00 Hamzah Forman [facility] Vivek [facility] DIFFERENTIAL [facility] B-TYPE NATRIURETIC FACTOR 2022-04-22 11:13:00 Hamzah Forman [facility], [facility] (BNP) [facility] TYPE AND SCREEN, AUTOMATED 2022-04-22 11:13:00 Hamzah Forman [facility] CBC W/PLT COUNT & AUTO 2022-04-22 11:13:00 [facility] DIFFERENTIAL [facility] SARS-COV2/RT-PCR ([facility] & 2022-04-22 10:53:00 Hamzah Forman [facility] REF LABS) [facility] CTA ABDOMEN & PELVIS 2022-04-16 09:00:[address] [facility] CTA CHEST 2022-04-16 09:00:[address] [facility] POCT-CREATININE 2022-04-16 08:45:[address] [facility] Plan of Care Planned Activity Planned Date Details Comments Source Future Scheduled 2023-09-05 SHINGLES VACCINES (1 [facility] Hospital Test 10:05:09 of 2) [code = SHINGLES VACCINES (1 of 2)] Future Scheduled 2023-09-05 65+ P[facility]UMOCOCCAL [facility] Test 10:05:09 VACCINE (1 - PCV) [code = 65+ PNEUMOCOCCAL VACCINE (1 - PCV)] Future Scheduled 2023-09-05 COVID-19 VACCINE (3 - [facility] Hospital Test 10:05:09 season) [code = COVID-19 VACCINE (3 - season)] Future Scheduled 2023-09-05 INFLUENZA VACCINE (#1) [facility] Test 10:05:09 [code = INFLUENZA VACCINE (#1)] Future Scheduled 2023-07-10 SHINGLES VACCINES (1 [facility] Hospital Test 14:16:11 of 2) [code = SHINGLES VACCINES (1 of 2)] Future Scheduled 2023-07-10 65+ PNEUMOCOCCAL [facility] Test 14:16:11 VACCINE (1 - PCV) [code = 65+ PNEUMOCOCCAL VACCINE (1 - PCV)] Future Scheduled 2023-07-10 COVID-19 VACCINE (3 - [facility] Hospital Test 14:16:11 Pfizer series) [code = COVID-19 VACCINE (3 - Pfizer series)] Future Scheduled 2023-07-10 INFLUENZA VACCINE (#1) [facility] Test 14:16:11 [code = INFLUENZA VACCINE (#1)] Future Scheduled 2023-06-19 Influenza Vaccine (#1[facility] 00:00:00 [code = Influenza Medical Ce nter Vaccine (#1)] Future Scheduled 2023-06-19 Influenza Vaccine (#1) [...] Future Scheduled 2023-03-26 SHINGLES VACCINES (1 [facility] Hospital Test 17:43:52 of 2) [code = [...] Future Scheduled 2023-01-23 SHINGLES VACCINES (1 [facility] Hospital Test 19:35:05 of 2) [code = [...] FIRST YEAR if no IPPE)] Future Scheduled 2022-10-[address] [...] RISK Medical C enter SCREENING] Future Scheduled 2022-10-[address] [facility] Test 00:00:00 (12+) [code = Medical Center DEPRESSION SCREENING (12+)] Future Scheduled 2022-10-19 FALLS RISK SCREENING [facility] Test 00:00:00 [code = FALLS RISK Medical C enter SCREENING] Future Scheduled 2022-08-22 HEPATITIS B VACCINES [facility] Test 20:41:35 (1 of 3 - 3-dose series) [code = HEPATITIS B VACCINES (1 of 3 - 3-dose series)] Future Scheduled 2022-08-22 SHINGLES VACCINES (1 [facility] Hospital Test 20:41:35 of 2) [code = [...] Future Scheduled 2022-08-22 HEPATITIS B VACCINES [facility] Hospital Test 20:41:35 (1 of 3 - 3-dose series) [code = HEPATITIS B VACCINES (1 of 3 - 3-dose series)] Future Scheduled 2022-08-22 SHINGLES VACCINES (1 [facility] Test 20:41:35 of 2) [code = [...] - [facility] Test 00:00:00 Pfizer series) [code = [facility] Center COVID-19 VACCINE (3 - Pfizer series)] Future Scheduled 2021-01-19 COVID-19 VACCINE [...] Scheduled 1954 DTAP/TDAP/TD VACCINES [facility] Test 00:00:00 (1 - Tdap) [code = Medical C enter DTAP/TDAP/TD VACCINES (1 - Tdap)] Encounters Start End Encounter Admission Attending Care Care Encounter Source Date/Time Date/Time Type Type Clinicians Facility Department ID 2022-04-10 [facility] [id number] SLE 09:11:07 2023-09-05 2023-09-05 [facility] [id number] [id number] Methodi 09:36:00 11:41:[address] 3.430.2.7 Hospit a 3.632219 l .8 2023-09-05 2023-09-05 [id number] [place] 00:00:00 00:00:00 ANT [address] 2023-04-02 2023-04-02 Outpatient MIMI Jennings [facility] [id number] [facility] 05:41:00 05:41:00 Mossaab 55 [facility] 2022-06-09 2022-06-[address] [facility] [id number] 00:00:00 00:00:00 [facility] 2022-05-28 2022-05-[address] [facility] [id number] 10:00:00 10:15:00 Visit [facility] 2022-05-28 2022-05-28 Outpatient WARNER REBOLLAR [facility] [id number] SLE 09:34:35 09:34:35 2022-05-28 2022-05-28 Outpatient MIMI [facility] [id number] SLE 00:00:00 00:00:00 2022-05-19 2022-05-[address] [facility] [id number] 00:00:00 00:00:00 Only [facility] 2022-04-23 2022-05-06 Inpatient [facility] Surgery [id number] SLEH 06:47:00 11:59:00 2022-04-23 2022-05-06 [facility] Sissy Benedict [facility] [id number] [facility] 06:47:00 11:59:00 Encounter Raymond Jj [facility] Brito [facility] 2022-04-26 2022-04-[address] [facility] [id number] 08:00:00 11:51:00 [facility] 2022-04-26 2022-04-[address] [facility] [id number] 08:35:00 10:44:00 Event Tabitha [facility] 2022-04-24 2022-04-[address] [facility] [id number] [facility] 07:35:00 15:21:00 Event Juan [facility] 2022-04-24 2022-04-[address] [facility] [id number] 07:30:00 14:19:00 [facility] 2022-04-23 2022-04-[address] [facility] [id number] 11:20:00 13:33:00 [facility] 2022-04-22 2022-04-22 Outpatient [facility] [id number] SLE 14:56:24 23:59:00 2022-04-22 2022-04-22 [facility] [id number] 14:30:00 23:59:00 Encounter [facility] 2022-04-22 2022-04-22 Outpatient SLE SLE [id number] SLE 10:32:04 10:32:04 2022-04-22 2022-04-[address] [facility] [id number] 10:00:00 10:15:00 Visit Moody [facility] 2022-04-16 2022-04-16 Outpatient [facility] [id number] SLSL 07:50:52 23:59:00 HAMZAH 2022-04-16 2022-04-16 [facility] Dickson [facility] [id number] 07:50:52 23:59:00 Encounter Hamzah Correia [facility] 2022-04-16 2022-04-16 Outpatient [facility] [id number] SLSL 07:49:57 07:49:57 HAMZAH 2022-04-16 2022-04-16 [facility] [id number] 07:49:57 07:49:57 [facility] 2022-04-10 2022-04-10 [facility] Dickson [facility] [id number] 00:00:00 00:00:00 Only [facility]zah Steiner [facility] 2022-04-09 2022-04-[address] [facility] [id number] 10:30:00 11:00:00 Visit Hamzah Forman [facility] 2022-04-09 2022-04-09 Outpatient [facility] [id number] SLE 10:17:18 10:17:18 HAMZAH 2022-04-02 2022-04-02 Outpatient CHRISTOS Valladares OUTD [id number] [facility] 05:16:00 05:16:00 Chace 80 [facility] 2022-04-02 2022-04-02 Outpatient JANIS ValaldaresCL [facility]L [id number] [facility] 05:16:00 05:16:00 Chace [id number] [facility] 2021-02-08 2021-02-08 Outpatient MARCO CISNEROS [facility] [id number] Univers 15:00:00 15:00:00 MARCO IRENE [facility] 2020-12-20 2020-12-20 Outpatient R MARCO IRENE [facility] [id number] Univers 00:00:00 00:00:00 MARCO IRENE [facility] 2020-11-24 2020-11-24 [facility]patient [facility] [id number] [place] 00:00:00 00:00:[address] 2020-11-13 2020-11-13 Telephone Paty [facility] [id number] 00:00:00 00:00:00 Marco Gao [id number] [place] [id number] Professio [id number] nal 092 [facility] 2020-11-03 2020-11-03 Outpatient [facility] [id number] [place] 00:00:00 00:00:[address] 2020-11-02 2020-11-02 Office Paty [facility] [id number] 14:12:48 16:16:50 Visit Marco Gao [id number] [place] [id number] Professio [id number] nal [id number] [facility] 2020-11-02 2020-11-02 Outpatient R [facility] [id number] Univers 14:20:00 14:20:00 [facility] 2020-10-24 2020-10-24 Outpatient Marlon JOSHI [facility] [id number] [facility] 11:00:00 11:00:00 RONAN solano o f [facility] 2020-09-11 2020-09-11 Outpatient MARCO CISNEROS [facility] [id number] [facility] 15:00:00 15:00:00 MARCO IRENE [facility] 2020-08-19 2020-08-19 Emergency X KIANNA [facility] ERT [id number] [facility] 09:20:00 09:20:00 IVAN [facility] 2020-05-23 2020-05-23 [facility] [id number] [place] 00:00:00 00:00:00 [place] 2020-05-23 2020-05-23 [id number] [place] 00:00:00 00:00:00 DANE [address] 2019-12-02 2019-12-02 Outpatient MICK Sanchez [id number] [facility] 12:15:00 12:15:00 [place] [id number] [place] [facility] Results Test Description Test Time Test Results Result Source Comments Comments CT Chest Wo 2023-08-19 EXAMINATION:CT CHEST Met hodist Contrast 8 WO CONTRAST CLINICAL Hosp ital 16:53:29 HISTORY:fall left sided rib pain TECHNIQUE:Multiple axial images of the chest were obtained without intravenous contrast. The lack of intravenous contrast reduces the sensitivity of detecting solid organ disease and evaluating vasculature. Sagittal and coronal computerized reformatted images were also obtained.CT imaging was performed with iterative reconstruction techniques and/or automated exposure control to reduce radiation dose. COMPARISON:None FINDINGS:The heart size is normal. Postsurgical changes from tricuspid and mitral valve repair are noted. There are calcifications within the coronary arteries. There is no pericardial effusion. The thoracic aorta is normal in caliber. A left subclavian dual-lead pacemaking device is present with the leads terminating in the right atrium and right ventricle. Biapical pleural parenchymal scarring is present. Atelectasis is also present in the lungs, most pronounced within the lung bases. Punctate calcified granulomas are present bilaterally. There is no lymphadenopathy within the chest. There is no pleural effusion. Imaging of the upper abdomen demonstrates punctate calcified granulomas within the spleen. The liver is diffusely increased in density, a nonspecific finding although may be related to chronic medication use such as amiodarone. A 3.6 cm septated cyst is present in the left lobe of the liver. Bilateral renal cysts are also present, the larger on the left measuring 2.3 cm. No acute fracture or dislocation is present. There are degenerative changes within the thoracic spine. IMPRESSION: No acute findings. [id number] CT Maxillofacial 2023-08-19 EXAMINATION: CT Met anne Wo Contrast 8 MAXILLOFACIAL WO Hospita l 16:44:32 CONTRAST CLINICAL HISTORY: fall. Left sided jaw pain COMPARISON: None TECHNIQUE: Axial noncontrast enhanced images through the maxillofacial bones were obtained with bone and soft tissue algorithms. Coronal and sagittal reconstructions were also performed. CT imaging was performed with iterative reconstruction technique and/or automated exposure control to reduce radiation dose. FINDINGS: No asymmetric periorbital or premaxillary soft tissue swelling identified. No orbital fractures. The globes are intact without intraocular hemorrhage. Prior cataract lens extractions are noted bilaterally. No orbital masses or fat stranding identified. Extraocular muscles are symmetric and normal in appearance. No displaced nasal bone or maxillofacial fractures identified. The paranasal sinuses are clear. The mastoid air cells and middle ear cavities are clear. No mandibular fractures identified. The temporomandibular joints are in normal osseous anatomic alignment. 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 No ventriculomegaly or midline shift is seen. IMPRESSION: No maxillofacial fractures or traumatic injuries identified. [id number] CT Head Wo 2023-08-19 EXAMINATION: CT HEAD Meth odist Contrast 8 WO CONTRAST CLINICAL Hosp ital 16:42:52 HISTORY: fall. left sided headache COMPARISON: None. TECHNIQUE: Noncontrast head CT performed using radiation dose reduction techniques. Technical factors are evaluated and adjusted to ensure appropriate moderation of exposure. Automated dose management technology is applied to adjust radiation exposure while achieving a diagnostic quality image. FINDINGS: No acute intra or extra-axial hemorrhage identified. The pathak-white matter differentiation is preserved. The basal ganglia, thalami, midbrain, alida and cervicomedullary junction are unremarkable. No mass, mass effect, or midline shift is seen. Ventricles and sulci are normal in appearance for patient's age. Basal cisterns are patent. Punctate vascular calcifications are noted along the supraclinoid internal carotid arteries bilaterally. Calvarium is intact. Prior cataract lens extractions are noted bilaterally. The visualized paranasal sinuses are unremarkable. The mastoid air cells and middle ear cavities are clear. No scalp hematomas. IMPRESSION: No acute intracranial abnormality identified. [id number] - XR CHEST 1 V 2023-03-19 5 00:00:00 [facility] : 1935 Sex: F FAX: Chace Sanz MD [phone] [place]: St: [facility] FAX: Haja Xiao [phone] FAX: Gage Meredith [phone] Name: SCARLETT GARRETT [facility] : 1935 Age/S: 87/F [address] [place] [address] Unit #: [id number] Loc: [place] [address] Phys: Gage Meredith Acct: [id number] Dis Date: Status: REG [facility] PHONE #: [phone] Exam Date: 04/02/20233 FAX #: [phone] Reason: Post PM/ICD EXAMS: CPT CODE: [id number] XR CHEST 1 V 49639 PROCEDURE INFORMATION: Exam: XR Chest Exam date [...] M.D. CC: Chace Nava MD; Haja Jennings MDTina Meredith Technologist: Kenney Wang, RT(R); Nahomy Rodriguez, RT(R) Trnscrd Date/Time/By: 04/02/2023 (0218) : By: [email or web address] Orig Print D/T: S: 04/02/2023 (6715) PAGE 1 Signed Report BASIC METABOLIC PANEL [...] = CA) 9.3 mg/dL 8.0-10.5 N PROTHROMBIN [id number] 13:40:00 Test Item Value Reference Range Interpretation [...] (to prevent recurrent infar ct). CBC W/AUTO [id number] 13:32:00 Test Item Value Reference Range Interpretation [...] 0.00 x10 3/uL 0.0-0.1 N NRBC#) - XR CHEST 2 [id number] 00:00:00 [facility] : 1935 Sex: FFAX: Chace Sanz MD [phone] [place]: St: PRE FAX: Haja Xiao [phone] ----- Name: SCARLETT GARRETT : 1935 Age/S: 87/F [address] [place] [address] Unit #: [id number] Loc: [place] [address] Phys: Haja Jennings MD Acct: [id number] Dis Date: Status: PRE SDC PHONE #: Exam Date: 04/01/2023 1313 FAX #: [phone] Reason: PRE OP EXAMS: CPT CODE: [id number] XRCHEST 2 V 54066 PROCEDURE INFORMATION: Exam: XR Chest Exam date and time: 04/01/2023 1:12 PM Age: 87 years old Clinical indication: Pre- operative exam; Cardiovascular screening and respiratory screeningexam; Additional info: Pre op TECHNIQUE: Imaging protocol: Radiologic exam of the chest. Views: 2 views. PA and Lateral COMPARISON: DX XR CHEST 2 V 04/01/2022 3:57 PM FINDINGS: Lungs: There are normal lung volumes without consolidation or interstitial opacities. Pleural spaces: Unremarkable. No pleuraleffusion. No pneumothorax. Heart/Mediastinum: The heart size is normal. There are prosthetic cardiacvalves. The mediastinal contour is normal. The trachea is midline. Bones/joints: Previous lumbar spinal fusion. IMPRESSION: No acute cardiopulmonary findings. at 1416 Reported and signed by: Ramez Zheng M.D. CC: Chace Nava MD; Haja Jennings MD Technologist: RT Geronimo(R) Trnscrd Date/Time/By: 04/01/2023 (1415) :By: Juan M Orig Print D/T: S: 04/01/2023 (1415) PAGE 1 Signed ReportPOC-Glucose [id number] 08:07:07 Test Item Value Reference Range Interpretation Comments POC-Glucose Meter (test 84 mg/dL 70-110 : TE STED AT [facility] code = 1538) [address] [facility], 770 30: Fish Bait Processing Supervisor/Techni juan ID = [id number] for Claudio, Adriana Lab Interpretation (test Normal code = 48590-4) [facility] [id number] 08:07:07 Test Item Value Reference Range Interpretation Comments POC-Glucose Meter (test 84 mg/dL 70-110 : TE STED AT [facility] code = 1538) 67[address] [facility], 770 30: Fish Bait Processing Supervisor/Techni juan ID = [id number] for Claudio, Adriana Lab Interpretation (test Normal code = 79508-7) [facility] CenterP[facility]GLU[facility]SE [id number] 08:07:07 Test Item Value Reference Range Interpretation Comments POC-GLUCOSE METER 84 mg/dL 70-110 : TESTED A T [facility] 6720 (BEAKER) (test code = ELSI Mason [facility], 1538) 81476: Fish Bait Processing Supervisor/Techni juan ID = [id number] for Chandni os, Adriana RAD, CHEST, 1 VIEW, NON [id number] 07:22:00Reason for exam:->ptxShould this be performed at the bedside?->Yes [facility] : 1935 Sex: FFINAL REPORT CLINICAL HISTORY: ptx TECHNIQUE: 1 view of the chest. COMPARISON: 05/05/2022 IMPRESSION: The small right pneumothorax is unchanged. Patchy bilateral lower lung opacities areunchanged. A trace right effusion is unchanged. The cardiomediastinal silhouette is unchanged. Signed: Luis Conklin [facility] Hospitalort Verified Date/Time: 05/06/2022 07:22:15 [facility] [place] [facility] Room BASIC METABOLIC [id number] 07:01:04 Test Item Value Reference Range Interpretation [...] S NOT APPLICABLE FOR DIALYSIS PATIEN TS. Fish Bait Processing Supervisor ID - DRAGAN [id number] 07:01:04 Test Item Value Reference Range Interpretation Comments MAGNESIUM (BEAKER) (test code = 1.9 mg/dL 1.6-2.6 627) Fish Bait Processing Supervisor ID Brooklynn ARCHIBALD WCBC (HEMOGRAM ONLY)2022-05-06 06:28:34 [...] 0-0 (BEAKER) (test code = 413) POCT-GLUCOSE [id number] 21:33:50 Test Item Value Reference Range Interpretation Comments POC-GLUCOSE METER 95 mg/dL 70-110 : TESTED A T [facility] 6720 (BEAKER) (test code = [facility], 1538) 43194: Fish Bait Processing Supervisor/Techni juan ID = [id number] for Alton Haideria POCT-GLUCOSE [id number] 17:00:08 Test Item Value Reference Range Interpretation Comments POC-GLUCOSE METER 123 mg/dL 70-110 H : TESTED A T [facility] 6720 (BEAKER) (test code = [facility], 1538) 79996: Fish Bait Processing Supervisor/Techni juan ID = [id number] for HU NTER, HIWITHA RAD, CHEST, 1 VIEW, NON [id number] 12:36:00Reason for exam:->R/o pneumothoraxShould this be performed at the bedside?->Yes [facility] : 1935 Sex: FFINAL REPORT CLINICAL HISTORY: R/o pneumothorax TECHNIQUE: 1 view of the chest. COMPARISON: 05/04/2022 IMPRESSION: The small right pneumothorax is unchanged. Right chest wall subcutaneous emphysema is again seen. Mild bilateral lung opacities and small pleural effusions are unchanged. There is no significant cardiomegaly. Signed: Luis Conklineport Verified Date/Time: 05/05/2022 12:36:46 Reading Location: [facility] Radiology Reading Room POCT- GLUCOSE [id number] 11:51:51 Test Item Value Reference Range Interpretation Comments POC-GLUCOSE METER 76 mg/dL 70-110 : TESTED A T [facility] 6720 (BEAKER) (test code = [facility], 1538) 53525: Fish Bait Processing Supervisor/Techni juan ID = [id number] for LEIGH ER, HIWITHA POCT-GLUCOSE [id number] 07:27:49 Test Item Value Reference Range Interpretation Comments POC-GLUCOSE METER 84 mg/dL 70-110 : TESTED A T [facility] 6720 (BEAKER) (test code = [facility], 1538) 65252: Fish Bait Processing Supervisor/Techni juan ID = [id number] for LEIGH ER, HIWITHA BASIC METABOLIC [id number] 05:14:34 Test Item Value Reference Range Interpretation [...] S NOT APPLICABLE FOR DIALYSIS PATIEN TS. Fish Bait Processing Supervisor ID Brooklynn ARCHIBALD [id number] 05:14:34 Test Item Value Reference Range Interpretation Comments MAGNESIUM (BEAKER) (test code = 1.9 mg/dL 1.6-2.6 627) Fish Bait Processing Supervisor ID Brooklynn ARCHIBALD WCBC (HEMOGRAM ONLY)2022-05-05 04:29:36 [...] 0-0 (BEAKER) (test code = 413) POCT-GLUCOSE [id number] 21:48:26 Test Item Value Reference Range Interpretation Comments POC-GLUCOSE METER 97 mg/dL 70-110 : TESTED A T [facility] 6720 (BEAKER) (test code = [facility] [place], 1538) 45707: Fish Bait Processing Supervisor/Techni juan ID = [id number] for Chelsea noza, Sherri POCT-GLUCOSE [id number] 17:44:55 Test Item Value Reference Range Interpretation Comments POC-GLUCOSE METER 85 mg/dL 70-110 : TESTED A T [facility] 6720 (BEAKER) (test code = ELSI Mason [facility], 1538) 68400: Fish Bait Processing Supervisor/Techni juan ID = [id number] for Birdie Betts, CHEST, 1 VIEW, NON [id number] 14:47:00Reason for exam:->chest tube removalShould this be performed at the bedside?->Yes [facility] : 1935 Sex: FFINAL [...] Ann Verified Date/Time: 05/04/2022 14:47:19 Reading Location: [address] Consult Reading Room POCT-GLUCOSE [id number] 12:27:08 Test Item Value Reference Range Interpretation Comments POC-GLUCOSE METER 93 mg/dL 70-110 : TESTED A T [facility] 6720 (BEAKER) (test code = ELSI Mason [facility], 1538) 55954: Fish Bait Processing Supervisor/Techni juan ID = [id number] for Birdie Betts RAD, CHEST, 1 VIEW, NON [id number] 09:09:00Reason for exam:->R/o pneumothoraxShould this be performed at the bedside?->Yes [facility] : 1935 Sex: FFINAL REPORT RAD, CHEST, 1 VIEW, NON DEPT INDICATION: R/o pneumothorax COMPARISON: Prior day's exam FINDINGS: Portable frontal view of the chest. IMPRESSION: Support Lines: Right chest tube. Lungs and pleura: Unchanged small right apical pneumothorax. Small right effusion. Heart and mediastinum: Stable contours. Additional findings: None. Signed: Kyara Marcus Verified Date/Time: 05/04/2022 09:09:00 POCT-GLUCOSE [id number] 08:56:25 Test Item Value Reference Range Interpretation Comments POC-GLUCOSE METER 118 mg/dL 70-110 H : TESTED A T [facility] 6720 (BEAKER) (test code = [facility] [place], 1538) 16989: Fish Bait Processing Supervisor/Techni juan ID = [id number] for Birdie Alvarado BASIC METABOLIC [id number] 04:43:51 Test Item Value Reference Range Interpretation [...] S NOT APPLICABLE FOR DIALYSIS PATIEN TS. Fish Bait Processing Supervisor ID - DELLA [id number] 04:43:51 Test Item Value Reference Range Interpretation Comments MAGNESIUM (BEAKER) (test code = 1.7 mg/dL 1.6-2.6 627) Fish Bait Processing Supervisor ID - DELLA GCBC (HEMOGRAM ONLY)2022-05-04 04:09:42 [...] 0-0 (BEAKER) (test code = 413) POCT-GLUCOSE [id number] 21:36:15 Test Item Value Reference Range Interpretation Comments POC-GLUCOSE METER 123 mg/dL 70-110 H : TESTED A T [facility] 6720 (BEAKER) (test code = ELSI Mason [place], 1538) 43063: Fish Bait Processing Supervisor/Techni juan ID = [id number] for Sherri Wiseman POCT-GLUCOSE [id number] 17:15:07 Test Item Value Reference Range Interpretation Comments POC-GLUCOSE METER 99 mg/dL 70-110 : TESTED A T [facility] 6720 (BEAKER) (test code = ELSI Mason [facility], 1538) 31558: Fish Bait Processing Supervisor/Techni juan ID = [id number] for Birdie Betts RAD, CHEST, 1 VIEW, NON [id number] 13:29:00Reason for exam:->r/o pneumothoraxShould this be performed at the bedside?->Yes [facility] : 1935 Sex: FFINAL REPORT [...] Ann Verified Date/Time: 05/03/2022 13:29:36 Reading Location: [facility] C013W Consult Reading Room POCT- GLUCOSE [id number] 11:41:15 Test Item Value Reference Range Interpretation Comments POC-GLUCOSE METER 103 mg/dL 70-110 : TESTED A T [facility] 6720 (BEAKER) (test code = NIRMALNM Marlon [facility], 1538) 39111: Fish Bait Processing Supervisor/Techni juan ID = [id number] for Birdie Alvarado POCT-GLUCOSE [id number] 07:30:50 Test Item Value Reference Range Interpretation Comments POC-GLUCOSE METER 86 mg/dL 70-110 : TESTED A T [facility] 6720 (BEAKER) (test code = [facility] Marlon [facility], 1538) 37563: Fish Bait Processing Supervisor/Techni juan ID = [id number] for Birdie Betts [id number] 06:26:15 Test Item Value Reference Range Interpretation Comments MAGNESIUM (BEAKER) (test code = 1.9 mg/dL 1.6-2.6 627) Fish Bait Processing Supervisor ID - DELLA GBASIC METABOLIC [id number] 06:26:14 Test Item Value Reference Range Interpretation [...] S NOT APPLICABLE FOR DIALYSIS PATIEN TS. Fish Bait Processing Supervisor ID - DELLA GCBC (HEMOGRAM ONLY)2022-05-03 06:10:08 [...] 0-0 (BEAKER) (test code = 413) POCT-GLUCOSE [id number] 21:16:35 Test Item Value Reference Range Interpretation Comments POC-GLUCOSE METER 101 mg/dL 70-110 : TESTED A T [facility] 6720 (BEAKER) (test code = [facility], 1538) 37380: Fish Bait Processing Supervisor/Techni juan ID = [id number] for Sherri Wiseman POCT-GLUCOSE [id number] 16:51:48 Test Item Value Reference Range Interpretation Comments POC-GLUCOSE METER 83 mg/dL 70-110 : TESTED A T [facility] 6720 (BEAKER) (test code = [facility], 1538) 72902: Fish Bait Processing Supervisor/Techni juan ID = [id number] for REESE ER, CIERRAWITHA 2D Echo W/Doppler(CW/PW/Color)2022-05-02 14:50:42Ejection FractionSLE [facility]Do[facility](CW/PW/Color)2022-05-02 14:50:42Ejection [facility] ECHO [facility], 1 V[facility], NON [id number] 14:10:00Reason for exam:->R/O pneumoShould this be performed at the bedside?->Yes[facility] : 1935 Sex: FFINAL REPORT [...] MDReport Verified Date/Time: 05/02/2022 14:10:15 Reading Location: [facility] Radiology Reading Room RAD, CHEST, 1 VIEW, NON [id number] 13:14:00Reason for exam:->s/p CT surgeryShould this be performed at the bedside?->Yes [facility] : 1935 Sex: FFINAL REPORT RAD, CHEST, 1 VIEW, NON DEPT INDICATION: s/p CT surgery COMPARISON: Prior day's exam TECHNIQUE: Portable frontal view of the chest. FINDINGS: Support Lines and Devices: Stable. Lungs and pleura: Unchanged airspace and pleural opacities. Small to moderate pneumothorax withright-sided chest tube, similar to prior exam. Heart and mediastinum: Stable contours. Stable surgical changes. Additional findings: Soft tissue emphysema in the right chest wall. IMPRESSION: 1.Small to moderate pneumothorax with right-sided chest tube, similar to prior exam.2. Blunting of the left costophrenic sulcus, which may represent pleural thickening/scarring or small pleural effusion. Signed: Darwin Albright MDRepriple[facility] Verified Date/Time: 05/02/2022 13:14:45 Reading Location: [facility] Radiology Reading Room POCT-GLUCOSE [id number] 12:31:33 Test Item Value Reference Range Interpretation Comments POC-GLUCOSE METER 100 mg/dL 70-110 : TESTED A T [facility] 6720 ([facility] (test code = ELSI Mason [facility], 153) 85299: Fish Bait Processing Supervisor/Techni juan ID = [id number] for Gabbi Roberts POCT-GLUCOSE [id number] 07:26:29 Test Item Value Reference Range Interpretation Comments POC-GLUCOSE METER 83 mg/dL 70-110 : TESTED A T [facility] 6720 ([employer]) (test code = ELSI Mason [facility], 1538) 57958: Fish Bait Processing Supervisor/Techni juan ID = [id number] for CIERRA HALLWITHA BASIC METABOLIC [id number] 06:08:27 Test Item Value Reference Range Interpretation Comments SODIUM (AKER) 134 meq/L 136-145 L (test code = [...] S NOT APPLICABLE FOR DIALYSIS PATIEN TS. Fish Bait Processing Supervisor ID - DRAGAN [id number] 06:08:27 Test Item Value Reference Range Interpretation Comments MAGNESIUM (BEAKER) (test code = 1.7 mg/dL 1.6-2.6 627) Fish Bait Processing Supervisor ID - DRAGAN WCBC (HEMOGRAM ONLY)2022-05-02 05:59:25 [...] 0-0 (BEAKER) (test code = 413) POCT-GLUCOSE [id number] 21:26:19 Test Item Value Reference Range Interpretation Comments POC-GLUCOSE METER 106 mg/dL 70-110 : TESTED A T [facility] 6720 (BEAKER) (test code = [facility], 1538) 49320: Fish Bait Processing Supervisor/Techni juan ID = [id number] for JAVI SWENSON POCT-GLUCOSE [id number] 17:37:12 Test Item Value Reference Range Interpretation Comments POC-GLUCOSE METER 81 mg/dL 70-110 : TESTED A T [facility] 6720 (BEAKER) (test code = [facility], 1538) 55916: Fish Bait Processing Supervisor/Techni juan ID = [id number] for WILL SANTINO PARK POCT-GLUCOSE [id number] 11:46:18 Test Item Value Reference Range Interpretation Comments POC-GLUCOSE METER 100 mg/dL 70-110 : TESTED A T [facility] 6720 (BEAKER) (test code = [facility], 1538) 17154: Fish Bait Processing Supervisor/Techni juan ID = [id number] for STEPHEN BARRIENTOS, TYNEADELAIDA RAD, CHEST, 1 VIEW, NON [id number] 10:08:00Reason for exam:->Shortness of breath after chest tube removal [facility] : 1935 Sex: FFINAL REPORT [...] MDReport Verified Date/Time: 05/01/2022 10:08:33 Reading Location: [facility] Radiology Reading Room RAD, CHEST, 1 VIEW, NON [id number] 09:40:00Reason for exam:->s/p CT surgeryShould this be performed at the bedside?->Yes [facility] : 1935 Sex: FFINAL REPORT [...] the right chest wall Signed: Darwin Albright MDReport Verified Date/Time: 05/01/2022 09:40:35 Reading Location: [facility] Radiology Reading Room POCT-GLUCOSE [id number] 07:52:00 Test Item Value Reference Range Interpretation Comments POC-GLUCOSE METER 87 mg/dL 70-110 : TESTED A T [facility] 6720 (BEAKER) (test code = [facility], 1538) 50971: Fish Bait Processing Supervisor/Techni juan ID = [id number] for SANTINO SADLER BASIC METABOLIC [id number] 05:35:18 Test Item Value Reference Range Interpretation [...] S NOT APPLICABLE FOR DIALYSIS PATIEN TS. Fish Bait Processing Supervisor ID - DELLA [id number] 05:35:18 Test Item Value Reference Range Interpretation Comments MAGNESIUM (BEAKER) (test code = 1.6 mg/dL 1.6-2.6 627) Fish Bait Processing Supervisor ID - DELLA GCBC (HEMOGRAM ONLY)2022-05-01 05:02:18 [...] 0-0 (BEAKER) (test code = 413) POCT-GLUCOSE [id number] 21:29:06 Test Item Value Reference Range Interpretation Comments POC-GLUCOSE METER 115 mg/dL 70-110 H : TESTED A T [facility] 6720 (BEAKER) (test code = [facility], 1538) 97508: Fish Bait Processing Supervisor/Techni juan ID = [id number] for REBECA SADLER SE POCT-GLUCOSE [id number] 17:31:57 Test Item Value Reference Range Interpretation Comments POC-GLUCOSE METER 94 mg/dL 70-110 : TESTED A T [facility] 6720 (BEAKER) (test code = [facility] [employer] [facility], 1538) 50741: Fish Bait Processing Supervisor/Techni juan ID = [id number] for Adriana Patle POCT-GLUCOSE [id number] 12:08:03 Test Item Value Reference Range Interpretation Comments POC-GLUCOSE METER 107 mg/dL 70-110 : TESTED A T [facility] 6720 (DESIRE) (test code = ELSI Masno [facility], 1538) 77671: Fish Bait Processing Supervisor/Techni juan ID = [id number] for Denzel Rosales RAD, CHEST, 1 VIEW, NON [id number] 08:33:00Reason for exam:->s/p CT surgeryShould this be performed at the bedside?->Yes [facility] : 1935 Sex: FFINAL REPORT CHEST AP PORTABLE Comparison exam: 04/29/2022 History provided: Follow-up after chest surgery Right chest tube unchanged in appearance. Right apical pneumothorax appears improved, currently estimated at 10-15% by volume. Basilar atelectatic change remains with small effusions. Subcutaneous emphysema on the right unchanged. Signed: Jose Ramon Soaresort Verified Date/Time: 04/30/2022 08:33:10 Reading Location: [facility] Diagnostic Imaging Reading Room [address]12 POCT-GLUCOSE [id number] 07:37:15 Test Item Value Reference Range Interpretation Comments POC-GLUCOSE METER 107 mg/dL 70-110 : TESTED A Sim [facility] 6720 (DESIRE) (test code = [facility], 1538) 17604: Fish Bait Processing Supervisor/Techni juan ID = [id number] for Denzel Rosales RAD, CHEST, 1 VIEW, NON [id number] 22:45:00Reason for exam:->post CT removal Should this be performed at the bedside?->Yes [facility] 1935 Sex: FFINAL REPORT [...] 04/29/2022 22:45:51 RAD, CHEST, 1 VIEW, NON [id number] 22:36:00Reason for exam:->right pleural chest tube removalShould this be performed at the bedside?->Yes [facility] : 1935 Sex: FFINAL REPORT [...] Garza MDReport Verified Date/Time: 04/29/2022 22:36:37 POCT-GLUCOSE [id number] 21:32:06 Test Item Value Reference Range Interpretation Comments POC-GLUCOSE METER 107 mg/dL 70-110 : TESTED A T [facility]20 ([employer]) (test code = [facility], 1538) [address]: Fish Bait Processing Supervisor/Techni juan ID = [id number] for GALEN SANCHES POCT-GLUCOSE [id number] 16:27:06 Test Item Value Reference Range Interpretation Comments POC-GLUCOSE METER 79 mg/dL 70-110 : TESTED A T [facility] 6720 ([employer]) (test code = [facility], 1538) [address]: Fish Bait Processing Supervisor/Techni juan ID = [id number] for Kylee Olivera RAD, CHEST, 1 VIEW, NON [id number] 11:48:00Reason for exam:->post opShould this be performed at the bedside?->Yes [facility] : 1935 Sex: FFINAL REPORT [...] Albright Verified Date/Time: 04/29/2022 11:48:25 Reading Location: [facility] Radiology Reading Room -GLUCOSE [id number] 11:10:43 Test Item Value Reference Range Interpretation Comments POC-GLUCOSE METER 80 mg/dL 70-110 : TESTED A T [facility] 6720 (BEAKER) (test code = ELSI Mason [facility], 1538) 227[address]: Fish Bait Processing Supervisor/Techni juan ID = [id number] for Joie Welch CBC W/PLT COUNT & AUTO [id number] 09:22:21 Test Item Value Reference Range Interpretation [...] CONCENTRATION Adequate (CELLAVISION)(BEAKER) (test code = 3438) Fish Bait Processing Supervisor ID Brooklynn Cohen comments: Slide comments:POCT-GLUCOSE [id number] 07:10:50 Test Item Value Reference Range Interpretation Comments POC-GLUCOSE METER 91 mg/dL 70-110 : TESTED A T [facility] 6720 (BEAKER) (test code = [place], 1538) [address]: Fish Bait Processing Supervisor/Techni juan ID = [id number] for Armaan charles (contract)Angelo BASIC METABOLIC [id number] 04:56:58 Test Item Value Reference Range Interpretation [...] S NOT APPLICABLE FOR DIALYSIS PATIEN TS. Fish Bait Processing Supervisor ID - JONI [id number] 04:56:58 Test Item Value Reference Range Interpretation Comments MAGNESIUM (BEAKER) (test code = 1.7 mg/dL 1.6-2.6 627) Fish Bait Processing Supervisor ID - JONI [id number] 04:56:58 Test Item Value Reference Range Interpretation Comments PHOSPHORUS (BEAKER) (test code = 2.5 mg/dL 2.3-4.7 604) Fish Bait Processing Supervisor ID - JONI LCALCIUM, [id number] 04:51:14 Test Item Value Reference Range Interpretation Comments CALCIUM IONIZED (BEAKER) (test 1.16 mmol/L 1.12-1.27 code = 698) PH, BLOOD (BEAKER) (test code = 7.38 1810) POCT-GLUCOSE [id number] 01:42:33 Test Item Value Reference Range Interpretation Comments POC-GLUCOSE METER 82 mg/dL 70-110 : TESTED A T [facility] 6720 (BEAKER) (test code = ELSI Mason [facility], 1538) [address]: Fish Bait Processing Supervisor/Techni juan ID = [id number] for Scarlett Matthews POCT-GLUCOSE [id number] 16:36:01 Test Item Value Reference Range Interpretation Comments POC-GLUCOSE METER 85 mg/dL 70-110 : TESTED A T [facility] 6720 (BEAKER) (test code = [employer] Marlon [facility], 1538) [address]: Fish Bait Processing Supervisor/Techni juan ID = [id number] for STARLA RSON, ZANE RAD, CHEST, 1 VIEW, NON [id number] 15:36:00Reason for exam:->assess for R ptx after chest tubes place to water seal in setting of air leakShould this be performed at the bedside?->Yes [facility]: [facility] : 1935 Sex: FAddendum BeginsREPORT STATUS:A The above findings were discussed with nurse Shereen Chaney, who acknowledged the findings, on 04/28/2022 at 3:33 PM. Signed: Darwin Albright VerifiedDate/Time: 04/28/2022 15:36:39 Reading Location: [facility] Radiology Reading RoomAddendum EndsFINAL REPORT RAD, CHEST, [...] Albright Verified Date/Time: 04/28/2022 15:33:04 Reading Location: [facility] Radiology Reading Room POCT-GLUCOSE [id number] 12:00:43 Test Item Value Reference Range Interpretation Comments POC-GLUCOSE METER 88 mg/dL 70-110 : Notified RN/MD: TESTED (IMKEROBI) (test code = AT [facility] 67[address] [facility] 1538) [facility], [facility] 30: Fish Bait Processing Supervisor/Techni juan ID = [id number] for Margaret HagenaresLuna chloe RAD, CHEST, 1 VIEW, NON [id number] 09:43:00Reason for exam:->post opShould this be performed at the bedside?->Yes [facility] : 1935 Sex: FFINAL REPORT RAD, CHEST, 1 VIEW, NON DEPT INDICATION: post op COMPARISON: Prior day's exam TECHNIQUE: Portable frontal view of the chest. FINDINGS: Support Lines and Devices: The right IJ Nora-Albert catheter was removed. Lungs and pleura: Unchanged airspace and pleural opacities. No pneu mothorax identified. Heart and mediastinum: Stable contours. Stable surgical changes. Additional findings: None. IMPRESSION: 1.Two right-sided chest tubes without pneumothorax identified.2.Left retrocardiac opacity, representing singly or in combination airspace disease, atelectasis, or pleural effusion.3.Small left pleural effusion. Signed: Darwin Albright [facility] Verified Date/Time: 04/28/2022 09:43:34 Reading Location: [facility] Radiology Reading Room CBC W/PLT COUNT & AUTO [id number] 07:27:01 Test Item Value Reference Range Interpretation [...] CONCENTRATION Decreased (CELLAVISION)(BEAKER) (test code = 3438) Fish Bait Processing Supervisor ID - Dontae Dato-onUser comments: Slide comments:[id number] 04:46:08 Test Item Value Reference Range Interpretation Comments PHOSPHORUS (BEAKER) 2.2 mg/dL 2.3-4.7 L Specimen slightly (test code = 604) hemolyzed Fish Bait Processing Supervisor ID - DRAGAN WBASIC METABOLIC [id number] 04:46:08 Test Item Value Reference Range Interpretation [...] S NOT APPLICABLE FOR DIALYSIS PATIEN TS. Fish Bait Processing Supervisor ID - DRAGAN [id number] 04:46:07 Test Item Value Reference Range Interpretation Comments MAGNESIUM (BEAKER) 2.0 mg/dL 1.6-2.6 Specimen slightly (test code = 627) hemolyzed Fish Bait Processing Supervisor ID Brooklynn ARCHIBALD WCALCIUM, [id number] 04:06:50 Test Item Value Reference Range Interpretation Comments CALCIUM IONIZED (BEAKER) (test 1.17 mmol/L 1.12-1.27 code = 698) PH, BLOOD (BEAKER) (test code = 7.35 1810) POCT-GLUCOSE [id number] 00:18:38 Test Item Value Reference Range Interpretation Comments POC-GLUCOSE METER 105 mg/dL 70-110 : TESTED A T [facility] 6720 (BEAKER) (test code = EL[place], 1538) [address]: Fish Bait Processing Supervisor/Techni juan ID = [id number] for Bubba marcus (contract) Janet kim Prepare [id number] 23:54:00 Test Item Value Reference Range Interpretation Comments CROSSMATCH (test code = 2264) COMPATIBLE Unit ABO (test code = O Pos 7812177) UNIT NUMBER (test code = [id number] 934-0) Status (test code = 3896906) [facility] Product (test code RED BLOOD CELLS = 2263) PRODUCT CODE (test code = F5762Y79 933-2) [facility] Center[facility] [id number] 23:54:00 Test Item Value Reference Range Interpretation Comments CROSSMATCH (test code = 2264) COMPATIBLE Unit ABO (test code = O Pos 8879201) UNIT NUMBER (test code = [id number] 934-0) Status (test code = 1707159) [facility] Bank Product (test code RED BLOOD CELLS = 2263) PRODUCT CODE (test code = S1487B52 933-2) [facility] CenterPOCT-GLUCOSE [id number] 18:08:29 Test Item Value Reference Range Interpretation Comments POC-GLUCOSE METER 163 mg/dL 70-110 H : TESTED A T [facility] 6720 (BEAKER) (test code = [facility] Marlon [facility], 1538) [address]: Fish Bait Processing Supervisor/Techni juan ID = [id number] for Mckay lala (contract)Felix POCT-GLUCOSE [id number] 11:14:41 Test Item Value Reference Range Interpretation Comments POC-GLUCOSE METER 144 mg/dL 70-110 H : Notified RN/MD: (BEAKER) (test code = TESTED AT [facility] 6720 1538) [facility], [address]: Fish Bait Processing Supervisor/Techni juan ID = [id number] for Vargas Tavarez (CELLAVISION MANUAL DIFF)2022-04-27 09:28:58 [...] CONCENTRATION Decreased (CELLAVISION)(BEAKER) (test code = 3438) Fish Bait Processing Supervisor ID - Norma OverholtUser comments: Slide comments:CBC W/PLT COUNT & AUTO [id number] 09:28:57 Test Item Value Reference Range Interpretation [...] = 413) RAD, CHEST, 1 VIEW, NON [id number] 08:19:00Reason for exam:->post opShould this be performed at the bedside?->Yes [facility] : 1935 Sex: FFINAL REPORT RAD, CHEST, 1 VIEW, NON DEPT INDICATION: post op COMPARISON: Prior day's exam FINDINGS: Portable frontal view of the chest. IMPRESSION: Support Lines: Right chest tubes. Nora-Albert tip overlies the pulmonary outflow tract. Lungs and pleura: Small bilateral effusions and brenton cent atelectasis. Unchanged small right apical pneumothorax. Heart and mediastinum: Stable contours.Stable surgical changes. Additional findings: None. Signed: Kyara Marcus Verified Date/Time: 04/27/2022 08:19:36 -GLUCOSE [id number] 07:49:42 Test Item Value Reference Range Interpretation Comments POC-GLUCOSE METER 121 mg/dL 70-110 H : Notified RN/: (DESIRE) (test code = TESTED AT [facility] 6720 1538) [facility], [address]: Fish Bait Processing Supervisor/Techni juan ID = [id number] for Pa ppas, Laura [id number] 06:55:59 Test Item Value Reference Range Interpretation Comments PHOSPHORUS (BEAKER) (test code = 2.9 mg/dL 2.3-4.7 604) Fish Bait Processing Supervisor GONZALO CARDENAS MBASIC METABOLIC [id number] 06:55:58 Test Item Value Reference Range Interpretation [...] S NOT APPLICABLE FOR DIALYSIS PATIEN TS. Fish Bait Processing Supervisor GONZALO CARDENAS [id number] 06:55:58 Test Item Value Reference Range Interpretation Comments MAGNESIUM (BEAKER) (test code = 1.9 mg/dL 1.6-2.6 627) Fish Bait Processing Supervisor GONZALO CARDENAS MOXYGEN SATURATION, [id number] 06:20:51 Test Item Value Reference Range Interpretation Comments O2 SATURATION (MEASURED) (BEAKER) 79.0 % (test code = 1455) Blood gas, [id number] 06:16:43 Test Item Value Reference Range Interpretation [...] 36 Lab Interpretation Abnormal (test code = 73104-2) [facility] CenterBlood gas, [id number] 06:16:43 Test Item Value Reference Range Interpretation [...] 36 Lab Interpretation Abnormal (test code = 43720-3) [facility] CenterBLOOD GAS, [id number] 06:16:43 Test Item Value Reference Range Interpretation [...] (BEAKER) (test code = 1819) 36.0 CALCIUM, [id number] 06:16:43 Test Item Value Reference Range Interpretation Comments CALCIUM IONIZED (BEAKER) (test 1.11 mmol/L 1.12-1.27 L code = 698) PH, BLOOD (BEAKER) (test code = 7.39 1810) POCT-GLUCOSE [id number] 00:36:03 Test Item Value Reference Range Interpretation Comments POC-GLUCOSE METER 133 mg/dL 70-110 H : TESTED A T [facility] 6720 (BEAKER) (test [facility], = 1538) [address]: Fish Bait Processing Supervisor/Techni juan ID = [id number] for CADI ANG, GLORINEIL Prepare Leuko-Red [id number] 23:54:00 Test Item Value Reference Range Interpretation Comments CROSSMATCH (test code = 2264) COMPATIBLE Unit ABO (test code = O Pos 7995514) UNIT NUMBER (test code = [id number] 934-0) Status (test code = 6908888) [place]_TIMEINCHART Blood Bank Product (test code RED BLOOD CELLS = 2263) PRODUCT CODE (test code = B1964B27 933-2) [facility] CenterPrepare Leuko-Red [id number] 23:54:00 Test Item Value Reference Range Interpretation Comments CROSSMATCH (test code = 2264) COMPATIBLE Unit ABO (test code = O Pos 1012226) UNIT NUMBER (test code = [id number] 934-0) Status (test code = 2955449) [place]_TIMEINCHART Blood Bank Product (test code RED BLOOD CELLS = 2263) PRODUCT CODE (test code = N5793D36 933-2) [facility] CenterRAD, CHEST, 1 VIEW, NON [id number] 21:54:00Reason for exam:->CT with new air leak - rightShould this be performed at the bedside?->[facility] : 1935 Sex: FFINAL [...] Blanco Verified Date/Time: 04/26/2022 21:54:36 HEMOGLOBIN AND [id number] 20:43:14 Test Item Value Reference Range Interpretation Comments HEMOGLOBIN (BEAKER) (test code = 9.4 GM/DL 11.2-15.7 L 410) HEMATOCRIT (BEAKER) (test code = 28.1 % 34.1-44.9 L 411) Fish Bait Processing Supervisor ID - [id number]-GLUCOSE [id number] 17:37:48 Test Item Value Reference Range Interpretation Comments POC-GLUCOSE METER 191 mg/dL 70-110 H : [facility] (BEAKER) (test code = [place], 1538) [address]: Fish Bait Processing Supervisor/Techni juan ID = [id number] for Telma pina (contract), Ran ei RAD, CHEST, 1 VIEW, NON [id number] 12:57:00Reason for exam:->post washout, eval hemothoraxShould this be performed at the bedside?->Yes [facility] : 1935 Sex: FFINAL REPORT TECHNIQUE: Frontal view of the chest. INDICATION: post washout, eval hemothorax. COMPARISON: 04/26/2022 at 1:47 AM and 04/25/2022 at 5:37 AM. FINDINGS: LINES/TUBES: Right IJ Nora-Albert catheter remains unchanged. There is been interval [...] Luis MDReport Verified Date/Time: 04/26/2022 12:57:33 Prepare [id number] 11:43:00 Test Item Value Reference Range Interpretation Comments Unit ABO (test code = O Pos 3990327) UNIT NUMBER (test code = [id number] 934-0) Status (test code = RETURNED FROM ISSUE 1745647) Blood Bank Product (test FFP code = 2263) PRODUCT CODE (test code = J3167A94 933-2) [facility] CenterPrepare [id number] 11:43:00 Test Item Value Reference Range Interpretation Comments Unit ABO (test code = O Pos 2914849) UNIT NUMBER (test code = [id number] 934-0) Status (test code = RETURNED FROM ISSUE 0476335) Blood Bank Product (test FFP code = 2263) PRODUCT CODE (test code = R7762P67 933-2) [facility] CenterOXYGEN SATURATION, [id number] 11:30:33 Test Item Value Reference Range Interpretation Comments O2 SATURATION (MEASURED) (BEAKER) 74.9 % (test code = 1455) [id number] 11:25:52 Test Item Value Reference Range Interpretation Comments PHOSPHORUS (BEAKER) (test code = 2.8 mg/dL 2.3-4.7 604) Fish Bait Processing Supervisor ID - THERESA MBASIC METABOLIC [id number] 11:25:51 Test Item Value Reference Range Interpretation [...] S NOT APPLICABLE FOR DIALYSIS PATIEN TS. Fish Bait Processing Supervisor ID - THERESA [id number] 11:25:51 Test Item Value Reference Range Interpretation Comments MAGNESIUM (BEAKER) (test code = 2.0 mg/dL 1.6-2.6 627) Fish Bait Processing Supervisor ID - THERESA MLactic Acid, [id number] 11:20:10 Test Item Value Reference Range Interpretation Comments Lactate, Art (test code = 0.7 mmol/L 0.5-2.2 2874) MISHA (test code = MISHA) Fish Bait Processing Supervisor ID - THERESA M Lab Interpretation (test Normal code = 90058-0) [facility] CenterLactic Acid, [id number] 11:20:10 Test Item Value Reference Range Interpretation Comments Lactate, Art (test code = 0.7 mmol/L 0.5-2.2 2874) MISHA (test code = MISHA) Fish Bait Processing Supervisor ID - THERESA M Lab Interpretation (test Normal code = 41005-9) [facility] CenterLACTIC ACID, [id number] 11:20:10 Test Item Value Reference Range Interpretation Comments LACTATE BLOOD ARTERIAL (2) 0.7 mmol/L 0.5-2.2 (BEAKER) (test code = 2874) Fish Bait Processing Supervisor ID - THERESA [id number] 11:18:48 Test Item Value Reference Range Interpretation [...] is 2.5-3.5 for patients with mechanical heart valves.[id number] 11:18:47 Test Item Value Reference Range Interpretation Comments FIBRINOGEN LEVEL (BEAKER) (test 405 mg/dl 225-434 code = 658) BLOOD GAS, [id number] 11:14:34 Test Item Value Reference Range Interpretation [...] (BEAKER) (test code = 1819) 40.0 CALCIUM, [id number] 11:14:28 Test Item Value Reference Range Interpretation [...] WBC 0-0 (test code = 413) CALCIUM, [id number] 09:26:35 Test Item Value Reference Range Interpretation Comments CALCIUM IONIZED (BEAKER) (test 1.10 mmol/L 1.12-1.27 L code = 698) PH, BLOOD (BEAKER) (test code = 7.48 1810) HGB/HCT (H&H)-Stat [id number] 09:26:34 Test Item Value Reference Range Interpretation Comments Hemoglobin (test code = 8.2 See_Comment L [Au tomated message] 786-4) The system [employer] generated this result transmitted ref erence range: 12.0 - 1 5.0 GM/DL. The refe rence range was not u sed to interpret this result as normal/abnor mal. Hematocrit (test code = 24.0 % 36.0-45.0 L 4544-3) Lab Interpretation (test Abnormal code = 17225-2) [facility] [id number] 09:26:34 Test Item Value Reference Range Interpretation Comments Sodium (test code = 2951-2) 133 meq/L 136-145 L Lab Interpretation (test code = Abnormal 85603-9) [facility] CenterHGB/HCT (H&H)-Stat [id number] 09:26:34 Test Item Value Reference Range Interpretation Comments Hemoglobin (test code = 8.2 See_Comment L [Au tomated message] 786-4) The system [employer] generated this result transmitted ref erence range: 12.0 - 1 5.0 GM/DL. The refe rence range was not u sed to interpret this result as normal/abnor mal. Hematocrit (test code = 24.0 % 36.0-45.0 L 4544-3) Lab Interpretation (test Abnormal code = 26103-9) [facility]Stat [id number] 09:26:34 Test Item Value Reference Range Interpretation Comments Sodium (test code = 2951-2) 133 meq/L 136-145 L Lab Interpretation (test code = Abnormal 96152-4) [facility] CenterODIUM NA-STAT [id number] 09:26:34 Test Item Value Reference Range Interpretation Comments SODIUM (BEAKER) (test code = 381) 133 meq/L 136-145 L HGB/HCT (H&H) - STAT [id number] 09:26:34 Test Item Value Reference Range Interpretation Comments HEMOGLOBIN (BEAKER) (test code = 8.2 GM/DL 12.0-15.0 L 410) HEMATOCRIT (BEAKER) (test code = 24.0 % 36.0-45.0 L 411) BLOOD GAS, [id number] 09:26:33 Test Item Value Reference Range Interpretation [...] (BEAKER) (test code = 1819) 60.0 Glucose-Stat [id number] 09:26:21 Test Item Value Reference Range Interpretation Comments Glucose (test code = 2345-7) 105 mg/dL 70-110 Lab Interpretation (test code = Normal 87813-3) [facility] CenterPotassium-Stat [id number] 09:26:21 Test Item Value Reference Range Interpretation Comments Potassium (test code = 2823-3) 3.7 meq/L 3.6-5.5 Lab Interpretation (test code = Normal 68282-2) [facility] CenterGlucose-Stat [id number] 09:26:21 Test Item Value Reference Range Interpretation Comments Glucose (test code = 2345-7) 105 mg/dL 70-110 Lab Interpretation (test code = Normal 91474-0) [facility] CenterPotassium-Stat [id number] 09:26:21 Test Item Value Reference Range Interpretation Comments Potassium (test code = 2823-3) 3.7 meq/L 3.6-5.5 Lab Interpretation (test code = Normal 80334-0) [facility] CenterGLUCOSE-STAT [id number] 09:26:21 Test Item Value Reference Range Interpretation Comments GLUCOSE RANDOM (BEAKER) (test code 105 mg/dL 70-110 = 652) POTASSIUM-STAT [id number] 09:26:21 Test Item Value Reference Range Interpretation Comments POTASSIUM (BEAKER) (test code = 3.7 meq/L 3.6-5.5 379) RAD, CHEST, 1 VIEW, NON [id number] 07:33:00while patient is intubated or has chest tubes.Reason for exam:->Status post CV SurgeryShould thisbe performed at the bedside?->Yes [facility] : 1935 Sex: FFINAL REPORT RAD, CHEST, 1 VIEW, NON DEPT INDICATION: Status post CV Surgery COMPARISON: Prior day's exam FINDINGS: Portable frontal view of the chest. IMPRESSION: Support Lines: Nora-Albert tip overlies the right pulmonary outflow tract. Right chest tube. Lungs and pleura: Loculated right hemothorax is better demonstrated on prior CT. Opacity within the right upper lung persists. Small pneumothorax component is not well seen on current radiograph. Heart and mediastinum: Stable contours. Stable surgical changes. Additional findings: None. Signed: Kyara Marcus Verified Date/Time: 04/26/2022 07:33:47 -GLUCOSE [id number] 06:00:43 Test Item Value Reference Range Interpretation Comments POC-GLUCOSE METER 113 mg/dL 70-110 H : TESTED A T [facility] 6720 (BEAKER) (test code = [place], 1538) [address]: Fish Bait Processing Supervisor/Techni juan ID = [id number] for KEVYN SALGUERO [id number] 03:10:22 Test Item Value Reference Range Interpretation Comments PHOSPHORUS (BEAKER) (test code = 2.9 mg/dL 2.3-4.7 604) Fish Bait Processing Supervisor ID - THERESA MBASIC METABOLIC [id number] 03:10:21 Test Item Value Reference Range Interpretation [...] S NOT APPLICABLE FOR DIALYSIS PATIEN TS. Fish Bait Processing Supervisor ID - THERESA [id number] 03:10:21 Test Item Value Reference Range Interpretation Comments MAGNESIUM (BEAKER) (test code = 1.6 mg/dL 1.6-2.6 627) Fish Bait Processing Supervisor ID - THERESA MCBC (HEMOGRAM ONLY)2022-04-26 02:27:34 [...] 0-0 (BEAKER) (test code = 413) CALCIUM, [id number] 02:18:11 Test Item Value Reference Range Interpretation Comments CALCIUM IONIZED (BEAKER) (test 1.13 mmol/L 1.12-1.27 code = 698) PH, BLOOD (BEAKER) (test code = 7.45 1810) POCT-GLUCOSE [id number] 00:01:48 Test Item Value Reference Range Interpretation Comments POC-GLUCOSE METER 131 mg/dL 70-110 H : TESTED A T [facility] 6720 (BEAKER) (test code = [place], 1538) [address]: Fish Bait Processing Supervisor/Techni juan ID = [id number] for KEVYN SALGUERO Prepare [id number] 23:54:00 Test Item Value Reference Range Interpretation Comments Unit ABO (test code = O Pos 1829458) UNIT NUMBER (test code = [id number] 934-0) Status (test code = 0113277) [place]_TIMEINCHART Blood Bank Product (test code CRYOPRECIPITATE = 2263) PRODUCT CODE (test code = W8005E41 933-2) [facility] CenterPrepare [id number] 23:54:00 Test Item Value Reference Range Interpretation Comments Unit ABO (test code = 1081914) O Pos UNIT NUMBER (test code = [id number] 934-0) Status (test code = 4607312) [place]_TIMEINCHART Blood Bank Product (test code PLATELETS = 2263) PRODUCT CODE (test code = U2508Z66 933-2) [facility] CenterPrepare [id number] 23:54:00 Test Item Value Reference Range Interpretation Comments Unit ABO (test code = O Pos 9785825) UNIT NUMBER (test code = [id number] 934-0) Status (test code = 2893060) [place]_TIMEINCHART Blood Bank Product (test code CRYOPRECIPITATE = 2263) PRODUCT CODE (test code = V9423D77 933-2) [facility] CenterPrepar [id number] 23:54:00 Test Item Value Reference Range Interpretation Comments Unit ABO (test code = 1245541) O Pos UNIT NUMBER (test code = [id number] 934-0) Status (test code = 2130367) [place]_TIMEINCHART Blood Bank Product (test code PLATELETS = 2263) PRODUCT CODE (test code = T2891Y58 933-2) [facility] CenterBASIC METABOLIC [id number] 19:28:22 Test Item Value Reference Range Interpretation [...] S NOT APPLICABLE FOR DIALYSIS PATIEN TS. Fish Bait Processing Supervisor ID - HGLACTIC ACID, [id number] 18:55:34 Test Item Value Reference Range Interpretation Comments LACTATE BLOOD ARTERIAL (2) 0.9 mmol/L 0.5-2.2 (BEAKER) (test code = 2874) Fish Bait Processing Supervisor ID - HGOXYGEN SATURATION, [id number] 18:44:34 Test Item Value Reference Range Interpretation Comments O2 SATURATION (MEASURED) (BEAKER) 60.5 % (test code = 1455) HEMOGLOBIN AND [id number] 18:42:34 Test Item Value Reference Range Interpretation Comments HEMOGLOBIN (BEAKER) (test code = 8.5 GM/DL 11.2-15.7 L 410) HEMATOCRIT (BEAKER) (test code = 24.5 % 34.1-44.9 L 411) Fish Bait Processing Supervisor ID - 6000POCT-GLUCOSE [id number] 16:41:19 Test Item Value Reference Range Interpretation Comments POC-GLUCOSE METER 147 mg/dL 70-110 H : [facility] (BEAKER) (test code [facility], = 1538) [address]: Fish Bait Processing Supervisor/Techni juan ID = [id number] for Jim rizo (contract)Aaron PT/[id number] 13:29:52 Test Item Value Reference Range Interpretation [...] is 2.5-3.5 for patients with mechanical heart valves.[id number] 13:29:31 Test Item Value Reference Range Interpretation Comments FIBRINOGEN LEVEL (BEAKER) (test 380 mg/dl 225-434 code = 658) POCT-GLUCOSE [id number] 13:25:47 Test Item Value Reference Range Interpretation Comments POC-GLUCOSE METER 124 mg/dL 70-110 H : TESTED A T [facility] 6720 (BEAKER) (test code [facility], = 1538) [address]: Fish Bait Processing Supervisor/Techni juan ID = [id number] for Jim rizo (contract)Aaron CBC (HEMOGRAM ONLY)2022-04-25 [...] = 413) RAD, CHEST, 1 VIEW, NON [id number] 12:41:00while patient is intubated or has chest tubes.Reason for exam:->Status post CV SurgeryShould thisbe performed at the bedside?->Yes [facility] : 1935 Sex: FFINAL REPORT RAD, CHEST, 1 VIEW, NON DEPT INDICATION: Status post CV Surgery COMPARISON: Prior day's exam FINDINGS: Portable frontal view of the chest. IMPRESSION: Support Lines: Nora-Albert tip overlies the right main pulmonary artery. Right chest tube. Lungs and pleura: Dense consolidation within the right upper lung is unchanged. No significant pneumothorax. Heart and mediastinum: Stable contours. Stable surgical changes. Additional findings: None. Signed: Kyara Marcus MDRguilherme Verified Date/Time: 04/25/2022 12:41:59 Reading Location: [facility] Radiology Reading Room [id number] 12:02:08 Test Item Value Reference Range Interpretation Comments Scan Result (test code = See scanned report [id number]) MISHA (test code = MISHA) See scanned report [facility] 12:02:08 Test Item Value Reference Range Interpretation Comments Scan Result (test code = See scanned report [id number]) MISHA (test code = MISHA) See scanned report [facility] [id number] 12:02:08 Test Item Value Reference Range Interpretation Comments SCAN RESULT (test code = See scanned report [id number]) See scanned reportCT, CHEST, WITHOUT [id number] 11:18:00Unlisted Reason for Exam - Click Yes and Enter Reason Below->YesUnlisted Reason for Exam- >s/p CT surgery, concern for hemothorax [facility] : 1935 Sex: FFINAL REPORT CT, CHEST, WITHOUT CONTRAST INDICATION: Pleural effusions/p CT surgery, concern for hemothorax COMPARISON: CTA chest 04/16/2022 TECHNIQUE: CT, CHEST, WITHOUT CONTRAST. Thisexam was performed according to our departmental dose optimization program which includes automated exposure control, adjustment of the mA and/or kV according to patient size and/or use of iterative reconstruction technique. FINDINGS: Lungs: Compressive atelectatic changes in the right upper lobe fromhemothorax. Streaky and consolidative right lower lobe opacity dependently. Mild subsegmental left lower lobe atelectatic changes. A few calcified pulmonary nodules related to old granulomatous disease Central airways: Patent.Pleura: A moderate-sized loculated right hemothorax, fluid mostly at the right apex. A trace left pleural effusion which is low- density layering posteriorly. A right-sided chesttube and a small right pneumothoraxLymph nodes: Suboptimal evaluation of the hilar lymph nodes without IV contrast. Otherwise unremarkableCardiovascular: Small pneumopericardium.Nora- Albert catheter tip in the right interlobar pulmonary artery. Moderate atherosclerosis of the thoracic aorta and branch vessels. 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 A mediastinal drainThyroid gland: Visualized portion unremarkableEsophagus: UnremarkableIncluded upper abdomen: Small ascites. Overdistended gallbladder without gallbladder wall thickening or pericholecystic edema and no visible biliary ductal dilation. A simple appearing 3.3 cm left hepatic lobe cyst, no follow-up imaging recommended.Chest wall: Moderate amount of gas throughout the right chest wall..Bones: Multilevel degenerative changes and mild rightward curvature of the thoracic spine.IMPRESSION: 1.A moderate- sized loculated right hemothorax and a small right pneumothorax. 2.Small pne umopericardium. 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 IMPRESSION: Support Lines: Nora-Albert tip overlies the right pulmonary outflow tract. Right chest tube. Lungs and pleura: Right upper lung opacity is unchanged. No significant pneumothorax. Heart and mediastinum: Stable contours. Stable surgical changes. Additional findings: None. Signed: Kyara Marcus Verified Date/Time: 04/25/2022 10:12:13 Reading Location: [facility] Radiology Reading Room CBC (HEMOGRAM ONLY)2022-04-25 09:55:40 [...] CELLS (BEAKER) (test code = 413) POCT-GLUCOSE [id number] 08:19:29 Test Item Value Reference Range Interpretation Comments POC-GLUCOSE METER 120 mg/dL 70-110 H : TESTED A T [facility] 6720 (BEAKER) (test code [facility], = 1538) [address]: Fish Bait Processing Supervisor/Techni juan ID = [id number] for Jim rizo (contract) Aaron rodriguez Hematocrit-Stat [id number] 06:54:10 Test Item Value Reference Range Interpretation Comments Hematocrit (test code = 4544-3) 7.0 % 36.0-45.0 L Lab Interpretation (test code = Abnormal 20895-9) [facility] CenterHematocrit-Stat [id number] 06:54:10 Test Item Value Reference Range Interpretation Comments Hematocrit (test code = 4544-3) 7.0 % 36.0-45.0 L Lab Interpretation (test code = Abnormal 66632-8) [facility] CenterHEMATOCRIT-STAT [id number] 06:54:10 Test Item Value Reference Range Interpretation Comments HEMATOCRIT (BEAKER) (test code = 411) 7.0 % 36.0-45.0 L LACTIC ACID, [id number] 06:20:41 Test Item Value Reference Range Interpretation Comments LACTATE BLOOD VENOUS (2) (BEAKER) 0.68 mmol/L 0.50-2.20 (test code = 2872) Fish Bait Processing Supervisor ID - THERESA MOperator ID - THERESA MPOCT-GLUCOSE [id number] 06:10:42 Test Item Value Reference Range Interpretation Comments POC-GLUCOSE METER 122 mg/dL 70-110 H : TESTED A T [place] [address] (BEAKER) (test code = ELSI Mason [facility], 1538) [address]: Fish Bait Processing Supervisor/Techni juan ID = [id number] for Bubba marcus (contract)Janet POC ACTIVATED CLOTTING [id number] 05:51:42 Test Item Value Reference Range Interpretation Comments Activated Clotting Time 126 sec : 74 -137 seconds, (test code = 3184-9) Baselin e: TESTED AT [facility] 6720 [facility], [address]: Fish Bait Processing Supervisor/Techni juan ID = [id number] for Le , Arnol [facility] ACTIVATED CLOTTING [id number] 05:51:42 Test Item Value Reference Range Interpretation Comments Activated Clotting Time 126 sec : 74 -137 seconds, (test code = 3184-9) Baselin e: TESTED AT [address], [address]: Fish Bait Processing Supervisor/Techni juan ID = [id number] for Le , Arnol [facility][id number] 05:51:42 Test Item Value Reference Range Interpretation Comments ACTIVATED CLOTTING TIME 126 sec : 74 -137 seconds, (BEAKER) (test code = Cisco ne: TESTED AT 441) [facility] 6720 [facility], [address]: Fish Bait Processing Supervisor/Techni juan ID = [id number] for Le , Arnol [id number] 05:51:42 Test Item Value Reference Range Interpretation Comments ACTIVATED CLOTTING TIME 590 sec : 74 -137 seconds, (BEAKER) (test code = Baseli ne: TESTED AT 441) [address], [place] 30: Fish Bait Processing Supervisor/Techni juan ID = [id number] for Le , Arnol [id number] 05:51:41 Test Item Value Reference Range Interpretation Comments ACTIVATED CLOTTING TIME 654 sec : 74 -137 seconds, (BEAKER) (test code = Baseli ne: TESTED AT 441) [address], [facility] [place] 30: Fish Bait Processing Supervisor/Techni juan ID = [id number] for Le , Arnol [id number] 05:51:41 Test Item Value Reference Range Interpretation Comments ACTIVATED CLOTTING TIME 590 sec : 74 -137 seconds, (BEAKER) (test code = Baseli ne: TESTED AT 441) [address], [facility] [place] 30: Fish Bait Processing Supervisor/Techni juan ID = [id number] for Le , Arnol [id number] 05:51:06 Test Item Value Reference Range Interpretation Comments ACTIVATED CLOTTING TIME 115 sec : 74 -137 seconds, (BEAKER) (test code = Baseli ne: TESTED AT 441) [address], [facility] [place] 30: Fish Bait Processing Supervisor/Techni juan ID = [id number] for Le , Arnol [id number] 05:51:06 Test Item Value Reference Range Interpretation Comments ACTIVATED CLOTTING TIME 839 sec : 74 -137 seconds, (BEAKER) (test code = Baseli ne: TESTED AT 441) [address], [facility] [place] 30: Fish Bait Processing Supervisor/Techni juan ID = [id number] for Le , Arnol [id number] 05:51:05 Test Item Value Reference Range Interpretation Comments ACTIVATED CLOTTING TIME 654 sec : 74 -137 seconds, (BEAKER) (test code = Baseli ne: TESTED AT 441) [address], [facility] [place] 30: Fish Bait Processing Supervisor/Techni juan ID = [id number] for Le , Arnol [id number] 04:43:22 Test Item Value Reference Range Interpretation Comments PARTIAL THROMBOPLASTIN TIME 33.3 seconds 22.5-36.0 (BEAKER) (test code = 760) [id number] 04:43:20 Test Item Value Reference Range Interpretation Comments FIBRINOGEN LEVEL (BEAKER) (test 304 mg/dl 225-434 code = 658) BLOOD GAS, [id number] 04:42:49 Test Item Value Reference Range Interpretation [...] (BEAKER) (test code = 1819) 40.0 PROTHROMBIN TIME/[id number] 04:42:42 Test Item Value Reference Range Interpretation Comments PROTIME (BEAKER) 17.0 seconds 11.9-14.2 H (test code = 759) INR (BEAKER) (test 1.41 See_Comment [Automat ed message] code = 370) The system [employer] generated this result transmitted ref erence range: <=5.90. The reference range was not used to int erpret this result as normal/abnormal . RECOMMENDED COUMADIN/WARFARIN INR THERAPY RANGESSTANDARD DOSE: 2.0 - 3.0 Includes: PROPHYLAXIS for venous thrombosis, systemic embolization; TREATMENT for venous thrombosis and/or pulmonary embolus.HIGH RISK: Target INR is 2.5-3.5 for patients with mechanical heart valves.HEPATIC FUNCTION [id number] 04:23:33 Test Item Value Reference Range Interpretation [...] (test code = 13 U/L 6-55 347) Fish Bait Processing Supervisor GONZALO CARDENAS MCALCIUM, [id number] 04:18:14 Test Item Value Reference Range Interpretation Comments CALCIUM IONIZED (BEAKER) (test 1.21 mmol/L 1.12-1.27 code = 698) PH, BLOOD (BEAKER) (test code = 7.34 1810) [id number] 03:50:20 Test Item Value Reference Range Interpretation Comments PHOSPHORUS (BEAKER) (test code = 4.0 mg/dL 2.3-4.7 604) Fish Bait Processing Supervisor ID - THERESA MBASIC METABOLIC [id number] 03:50:19 Test Item Value Reference Range Interpretation [...] S NOT APPLICABLE FOR DIALYSIS PATIEN TS. Fish Bait Processing Supervisor ID - THERESA [id number] 03:50:19 Test Item Value Reference Range Interpretation Comments MAGNESIUM (BEAKER) (test code = 1.9 mg/dL 1.6-2.6 627) Fish Bait Processing Supervisor ID - THERESA MCBC (HEMOGRAM ONLY)2022-04-25 03:25:24 [...] WBC 0-0 (test code = 413) POCT-GLUCOSE [id number] 02:22:03 Test Item Value Reference Range Interpretation Comments POC-GLUCOSE METER 110 mg/dL 70-110 : TESTED A T [facility] 6720 (BEAKER) (test code = [facility], 1538) [address]: Fish Bait Processing Supervisor/Techni juan ID = [id number] for Bubba marcus (contract)Janet POCT-GLUCOSE [id number] 00:03:44 Test Item Value Reference Range Interpretation Comments POC-GLUCOSE METER 139 mg/dL 70-110 H : TESTED A T [facility] 6720 (BEAKER) (test code = [facility] Marlon [facility], 1538) [address]: Fish Bait Processing Supervisor/Techni juan ID = [id number] for KEVYN SALGUERO GLUCOSE-STAT [id number] 21:29:34 Test Item Value Reference Range Interpretation Comments GLUCOSE RANDOM (BEAKER) (test code 155 mg/dL 70-110 H = 652) HGB/HCT (H&H) - STAT [id number] 21:29:34 Test Item Value Reference Range Interpretation Comments HEMOGLOBIN (BEAKER) (test code = 8.9 GM/DL 12.0-15.0 L 410) HEMATOCRIT (BEAKER) (test code = 26.0 % 36.0-45.0 L 411) BLOOD GAS, [id number] 21:29:33 Test Item Value Reference Range Interpretation [...] 37.0 (test code = 1818) SODIUM NA-STAT [id number] 21:28:36 Test Item Value Reference Range Interpretation Comments SODIUM (BEAKER) (test code = 381) 139 meq/L 136-145 POTASSIUM-STAT [id number] 21:28:36 Test Item Value Reference Range Interpretation Comments POTASSIUM (BEAKER) (test code = 3.9 meq/L 3.6-5.5 379) [id number] 20:35:33 Test Item Value Reference Range Interpretation Comments MAGNESIUM (BEAKER) 2.1 mg/dL 1.6-2.6 Specimen slightly (test code = 627) hemolyzed Fish Bait Processing Supervisor ID - DBBASIC METABOLIC [id number] 20:35:32 Test Item Value Reference Range Interpretation [...] S NOT APPLICABLE FOR DIALYSIS PATIEN TS. Fish Bait Processing Supervisor ID - DBSpecimen slightly ictericLACTIC ACID, [id number] 20:31:26 Test Item Value Reference Range Interpretation Comments LACTATE BLOOD ARTERIAL (2) 1.2 mmol/L 0.5-2.2 (BEAKER) (test code = 2874) Fish Bait Processing Supervisor ID - DBSpecimen slightly ictericGLUCOSE-STAT [id number] 20:09:05 Test Item Value Reference Range Interpretation Comments GLUCOSE RANDOM (BEAKER) (test code 147 mg/dL 70-110 H = 652) HGB/HCT (H&H) - STAT [id number] 20:09:05 Test Item Value Reference Range Interpretation Comments HEMOGLOBIN (BEAKER) (test code = 9.5 GM/DL 12.0-15.0 L 410) HEMATOCRIT (BEAKER) (test code = 28.0 % 36.0-45.0 L 411) BLOOD GAS, [id number] 20:09:04 Test Item Value Reference Range Interpretation [...] (BEAKER) 37.0 (test code = 1818) CALCIUM, [id number] 20:08:43 Test Item Value Reference Range Interpretation Comments CALCIUM IONIZED (BEAKER) (test 1.26 mmol/L 1.12-1.27 code = 698) PH, BLOOD (BEAKER) (test code = 7.43 1810) POTASSIUM-STAT [id number] 20:08:22 Test Item Value Reference Range Interpretation Comments POTASSIUM (BEAKER) (test code = 4.0 meq/L 3.6-5.5 379) SODIUM NA-STAT [id number] 20:08:21 Test Item Value Reference Range Interpretation [...] CONCENTRATION Decreased (CELLAVISION)(BEAKER) (test code = 3438) Fish Bait Processing Supervisor ID - Radio Tower Technician (created by the system)User comments: Slide comments:CBC W/PLT COUNT & AUTO [id number] 18:18:06 Test Item Value Reference Range Interpretation [...] code = 2801) HGB/HCT (H&H) - STAT [id number] 18:15:30 Test Item Value Reference Range Interpretation Comments HEMOGLOBIN (BEAKER) (test code = 9.5 GM/DL 12.0-15.0 L 410) HEMATOCRIT (BEAKER) (test code = 28.0 % 36.0-45.0 L 411) BLOOD GAS, [id number] 18:15:29 Test Item Value Reference Range Interpretation [...] (BEAKER) (test code = 1819) 40.0 GLUCOSE-STAT [id number] 18:15:29 Test Item Value Reference Range Interpretation Comments GLUCOSE RANDOM (BEAKER) (test code 167 mg/dL 70-110 H = 652) SODIUM NA-STAT [id number] 18:15:23 Test Item Value Reference Range Interpretation Comments SODIUM (BEAKER) (test code = 381) 138 meq/L 136-145 POTASSIUM-STAT [id number] 18:15:23 Test Item Value Reference Range Interpretation Comments POTASSIUM (BEAKER) (test code = 3.6 meq/L 3.6-5.5 379) RAD, CHEST, 1 VIEW, NON [id number] 16:48:00Reason for exam:->s/p valve surgeryShould this be performed at the bedside?->Yes [facility] 1935 Sex: FFINAL [...] terminating below the left hemidiaphragm. Right IJ Nora-Albert catheter terminates in the distal right pulmonary artery. Right-sided chest tube is present. Minimal subcutaneous air is present within the right lower lateral chest wall. IMPRESSION: Postoperative changes with supporting lines and tubesin adequate position. Scattered right lung atelectasis is present. Signed: Tra Akbar Verified Date/Time: 04/24/2022 16:48:45 Reading Location: [facility] Radiology Reading Room BASI METABOLIC PANEL 2022-04-24 [...] S NOT APPLICABLE FOR DIALYSIS PATIEN TS. Fish Bait Processing Supervisor ID - JONI [id number] 16:20:36 Test Item Value Reference Range Interpretation Comments MAGNESIUM (BEAKER) 1.6 mg/dL 1.6-2.6 Specimen slightly (test code = 627) hemolyzed Fish Bait Processing Supervisor ID - JONI [id number] 16:20:36 Test Item Value Reference Range Interpretation Comments PHOSPHORUS (BEAKER) 3.5 mg/dL 2.3-4.7 Specimen slightly (test code = 604) hemolyzed Fish Bait Processing Supervisor ID - JONI LLACTIC ACID, [id number] 16:12:11 Test Item Value Reference Range Interpretation Comments LACTATE BLOOD 1.3 mmol/L 0.5-2.2 Specimen sligh tly ARTERIAL (2) (BEAKER) hemoly zed (test code = 2874) Fish Bait Processing Supervisor ID - JONI [id number] 16:08:12 Test Item Value Reference Range Interpretation Comments PARTIAL THROMBOPLASTIN TIME 33.9 seconds 22.5-36.0 (BEAKER) (test code = 760) [id number] 16:07:51 Test Item Value Reference Range Interpretation Comments FIBRINOGEN LEVEL (BEAKER) (test 426 mg/dl 225-434 code = 658) PROTHROMBIN TIME/[id number] 16:07:30 Test Item Value Reference Range Interpretation Comments PROTIME (BEAKER) 17.1 seconds 11.9-14.2 H (test code = 759) INR (BEAKER) (test 1.42 See_Comment [Automat ed message] code = 370) The system [employer] generated this result transmitted ref erence range: <=5.90. The reference range was not used to int erpret this result as normal/abnormal . RECOMMENDED COUMADIN/WARFARIN INR THERAPY RANGESSTANDARD DOSE: 2.0 - 3.0 Includes: PROPHYLAXIS for venous thrombosis, systemic embolization; TREATMENT for venous thrombosis and/or pulmonary embolus.HIGH RISK: Target INR is 2.5-3.5 for patients with mechanical heart valves.CALCIUM, [id number] 16:00:22 Test Item Value Reference Range Interpretation Comments CALCIUM IONIZED (BEAKER) (test 1.29 mmol/L 1.12-1.27 H code = 698) PH, BLOOD (BEAKER) (test code = 7.46 1810) BLOOD GAS, [id number] 16:00:22 Test Item Value Reference Range Interpretation [...] (test code = 1819) 60.0 OXYGEN SATURATION, [id number] 15:59:48 Test Item Value Reference Range Interpretation [...] WBC 0-0 (BEAKER) (test code = 413) [id number] 14:24:28 Test Item Value Reference Range Interpretation Comments PARTIAL THROMBOPLASTIN TIME 37.1 seconds 22.5-36.0 H (BEAKER) (test code = 760) [id number] 14:24:07 Test Item Value Reference Range Interpretation Comments FIBRINOGEN LEVEL (BEAKER) (test 290 mg/dl 225-434 code = 658) PROTHROMBIN TIME/[id number] 14:23:45 Test Item Value Reference Range Interpretation Comments PROTIME (BEAKER) 19.2 seconds 11.9-14.2 H (test code = 759) INR (BEAKER) (test 1.64 See_Comment [Automat ed message] code = 370) The system [employer] generated this result transmitted ref erence range: <=5.90. The reference range was not used to int erpret this result as normal/abnormal . RECOMMENDED COUMADIN/WARFARIN INR THERAPY RANGESSTANDARD DOSE: 2.0 - 3.0 Includes: PROPHYLAXIS for venous thrombosis, systemic embolization; TREATMENT for venous thrombosis and/or pulmonary embolus.HIGH RISK: Target INR is 2.5-3.5 for patients with mechanical heart valves.Platelet [id number] 14:19:25 Test Item Value Reference Range Interpretation Comments Platelets (test code 139 See_Comment L [Autom ated = 777-3) message] The system which generated this result transmit minda reference range : 150 - 450 K/CU MM. The reference range was not u sed to interpret th is result as normal/abnormal . MISHA (test code = MISHA) Fish Bait Processing Supervisor ID - [id number] Lab Interpretation Abnormal (test code = 41652-5) [facility] Center[facility]ate[facility] [id number] 14:19:25 Test Item Value Reference Range Interpretation Comments Platelets (test code 139 See_Comment L [Autom ated = 777-3) message] The system which generated this result transmit minda reference range : 150 - 450 K/CU MM. The reference range was not u sed to interpret th is result as normal/abnormal . MISHA (test code = MISHA) Fish Bait Processing Supervisor ID - [id number] Lab Interpretation Abnormal (test code = 33287-8) [facility] CenterPLATE[facility] [id number] 14:19:25 Test Item Value Reference Range Interpretation Comments PLATELET COUNT (BEAKER) (test 139 K/CU MM 150-450 L code = 756) Fish Bait Processing Supervisor ID - [id number], [id number] 14:11:38 Test Item Value Reference Range Interpretation Comments CALCIUM IONIZED (BEAKER) (test 1.01 mmol/L 1.12-1.27 L code = 698) PH, BLOOD (BEAKER) (test code = 7.45 1810) POTASSIUM-STAT [id number] 14:11:06 Test Item Value Reference Range Interpretation Comments POTASSIUM (BEAKER) (test code = 3.1 meq/L 3.6-5.5 L 379) GLUCOSE-STAT [id number] 14:11:06 Test Item Value Reference Range Interpretation Comments GLUCOSE RANDOM (BEAKER) (test code 150 mg/dL 70-110 H = 652) HGB/HCT (H&H) - STAT [id number] 14:11:06 Test Item Value Reference Range Interpretation Comments HEMOGLOBIN (BEAKER) (test code = 10.8 GM/DL 12.0-15.0 L 410) HEMATOCRIT (BEAKER) (test code = 32.0 % 36.0-45.0 L 411) BLOOD GAS, [id number] 14:11:05 Test Item Value Reference Range Interpretation [...] (test code = 1819) 97.0 SODIUM NA-STAT [id number] 14:10:43 Test Item Value Reference Range Interpretation Comments SODIUM (BEAKER) (test code = 381) 136 meq/L 136-145 [id number] 13:59:03 Test Item Value Reference Range Interpretation Comments FIBRINOGEN LEVEL (BEAKER) (test 211 mg/dl 225-434 L code = 658) PROTHROMBIN TIME/[id number] 13:58:41 Test Item Value Reference Range Interpretation Comments PROTIME (BEAKER) 22.7 seconds 11.9-14.2 H (test code = 759) INR (BEAKER) (test 2.03 See_Comment [Automat ed message] code = 370) The system [employer] generated this result transmitted ref erence range: <=5.90. The reference range was not used to int erpret this result as normal/abnormal . RECOMMENDED COUMADIN/WARFARIN INR THERAPY RANGESSTANDARD DOSE: 2.0 - 3.0 Includes: PROPHYLAXIS for venous thrombosis, systemic embolization; TREATMENT for venous thrombosis and/or pulmonary embolus.HIGH RISK: Target INR is 2.5-3.5 for patients with mechanical heart valves.[id number] 13:34:36 Test Item Value Reference Range Interpretation Comments PARTIAL THROMBOPLASTIN TIME 38.6 seconds 22.5-36.0 H (BEAKER) (test code = 760) [id number] 13:34:35 Test Item Value Reference Range Interpretation Comments FIBRINOGEN LEVEL (BEAKER) (test 185 mg/dl 225-434 L code = 658) PROTHROMBIN TIME/[id number] 13:33:54 Test Item Value Reference Range Interpretation Comments PROTIME (BEAKER) 26.1 seconds 11.9-14.2 H (test code = 759) INR (BEAKER) (test 2.42 See_Comment [Automat ed message] code = 370) The system RecruitTalk generated this result transmitted ref erence range: <=5.90. The reference range was not used to int erpret this result as normal/abnormal . RECOMMENDED COUMADIN/WARFARIN INR THERAPY RANGESSTANDARD DOSE: 2.0 - 3.0 Includes: PROPHYLAXIS for venous thrombosis, systemic embolization; TREATMENT for venous thrombosis and/or pulmonary embolus.HIGH RISK: Target INR is 2.5-3.5 for patients with mechanical heart valves.CALCIUM, [id number] 13:23:39 Test Item Value Reference Range Interpretation Comments CALCIUM IONIZED (BEAKER) (test 1.11 mmol/L 1.12-1.27 L code = 698) PH, BLOOD (BEAKER) (test code = 7.55 1810) HGB/HCT (H&H) - STAT [id number] 13:23:38 Test Item Value Reference Range Interpretation Comments HEMOGLOBIN (BEAKER) (test code = 8.6 GM/DL 12.0-15.0 L 410) HEMATOCRIT (BEAKER) (test code = 25.0 % 36.0-45.0 L 411) POTASSIUM-STAT [id number] 13:23:37 Test Item Value Reference Range Interpretation Comments POTASSIUM (BEAKER) (test code = 3.4 meq/L 3.6-5.5 L 379) GLUCOSE-STAT [id number] 13:23:37 Test Item Value Reference Range Interpretation Comments GLUCOSE RANDOM (BEAKER) (test code 159 mg/dL 70-110 H = 652) BLOOD GAS, [id number] 13:23:36 Test Item Value Reference Range Interpretation [...] (test code = 1819) 97.0 SODIUM NA-STAT [id number] 13:23:14 Test Item Value Reference Range Interpretation Comments SODIUM (BEAKER) (test code = 381) 137 meq/L 136-145 HGB/HCT (H&H) - STAT [id number] 12:07:22 Test Item Value Reference Range Interpretation Comments HEMOGLOBIN (BEAKER) (test code = 8.5 GM/DL 12.0-15.0 L 410) HEMATOCRIT (BEAKER) (test code = 25.0 % 36.0-45.0 L 411) BLOOD GAS, [id number] 12:07:21 Test Item Value Reference Range Interpretation [...] (BEAKER) (test code = 1819) 75.0 GLUCOSE-STAT [id number] 12:07:21 Test Item Value Reference Range Interpretation Comments GLUCOSE RANDOM (BEAKER) (test code 184 mg/dL 70-110 H = 652) POTASSIUM-STAT [id number] 12:06:48 Test Item Value Reference Range Interpretation Comments POTASSIUM (BEAKER) (test code = 3.7 meq/L 3.6-5.5 379) SODIUM NA-STAT [id number] 12:06:47 Test Item Value Reference Range Interpretation Comments SODIUM (BEAKER) (test code = 381) 135 meq/L 136-145 L PLATELET [id number] 11:55:07 Test Item Value Reference Range Interpretation Comments PLATELET COUNT 84 K/CU MM 150-450 L No clot, Pt i s in CV (BEAKER) (test code = OR. 756) Fish Bait Processing Supervisor ID - [id number]-STAT [id number] 11:38:00 Test Item Value Reference Range Interpretation Comments GLUCOSE RANDOM (BEAKER) (test code 215 mg/dL 70-110 H = 652) HGB/HCT (H&H) - STAT [id number] 11:38:00 Test Item Value Reference Range Interpretation Comments HEMOGLOBIN (BEAKER) (test code = 8.5 GM/DL 12.0-15.0 L 410) HEMATOCRIT (BEAKER) (test code = 25.0 % 36.0-45.0 L 411) BLOOD GAS, [id number] 11:37:59 Test Item Value Reference Range Interpretation [...] (test code = 1819) 75.0 SODIUM NA-STAT [id number] 11:37:59 Test Item Value Reference Range Interpretation Comments SODIUM (BEAKER) (test code = 381) 133 meq/L 136-145 L POTASSIUM-STAT [id number] 11:37:43 Test Item Value Reference Range Interpretation Comments POTASSIUM (BEAKER) (test code = 4.4 meq/L 3.6-5.5 379) SODIUM NA-STAT [id number] 11:09:16 Test Item Value Reference Range Interpretation Comments SODIUM (BEAKER) (test code = 381) 134 meq/L 136-145 L GLUCOSE-STAT [id number] 11:09:16 Test Item Value Reference Range Interpretation Comments GLUCOSE RANDOM (BEAKER) (test code 226 mg/dL 70-110 H = 652) HGB/HCT (H&H) - STAT [id number] 11:09:16 Test Item Value Reference Range Interpretation Comments HEMOGLOBIN (BEAKER) (test code = 9.7 GM/DL 12.0-15.0 L 410) HEMATOCRIT (BEAKER) (test code = 29.0 % 36.0-45.0 L 411) BLOOD GAS, [id number] 11:09:15 Test Item Value Reference Range Interpretation [...] (BEAKER) (test code = 1819) 65.0 POTASSIUM-STAT [id number] 11:08:50 Test Item Value Reference Range Interpretation Comments POTASSIUM (BEAKER) (test code = 4.6 meq/L 3.6-5.5 379) HGB/HCT (H&H) - STAT [id number] 10:59:00 Test Item Value Reference Range Interpretation Comments HEMOGLOBIN (BEAKER) (test code = 7.6 GM/DL 12.0-15.0 L 410) HEMATOCRIT (BEAKER) (test code = 22.0 % 36.0-45.0 L 411) BLOOD GAS, [id number] 10:58:59 Test Item Value Reference Range Interpretation [...] (BEAKER) (test code = 1819) 65.0 GLUCOSE-STAT [id number] 10:58:59 Test Item Value Reference Range Interpretation Comments GLUCOSE RANDOM (BEAKER) (test code 206 mg/dL 70-110 H = 652) POTASSIUM-STAT [id number] 10:55:29 Test Item Value Reference Range Interpretation Comments POTASSIUM (BEAKER) (test code = 4.1 meq/L 3.6-5.5 379) SODIUM NA-STAT [id number] 10:55:28 Test Item Value Reference Range Interpretation Comments SODIUM (BEAKER) (test code = 381) 137 meq/L 136-145 BLOOD GAS, [id number] 10:27:14 Test Item Value Reference Range Interpretation [...] (BEAKER) (test code = 1819) 70.0 GLUCOSE-STAT [id number] 10:27:14 Test Item Value Reference Range Interpretation Comments GLUCOSE RANDOM (BEAKER) (test code 189 mg/dL 70-110 H = 652) HGB/HCT (H&H) - STAT [id number] 10:27:14 Test Item Value Reference Range Interpretation Comments HEMOGLOBIN (BEAKER) (test code = 7.9 GM/DL 12.0-15.0 L 410) HEMATOCRIT (BEAKER) (test code = 23.0 % 36.0-45.0 L 411) SODIUM NA-STAT [id number] 10:26:53 Test Item Value Reference Range Interpretation Comments SODIUM (BEAKER) (test code = 381) 135 meq/L 136-145 L POTASSIUM-STAT [id number] 10:26:53 Test Item Value Reference Range Interpretation Comments POTASSIUM (BEAKER) (test code = 3.5 meq/L 3.6-5.5 L 379) HGB/HCT (H&H) - STAT [id number] 08:10:46 Test Item Value Reference Range Interpretation Comments HEMOGLOBIN (BEAKER) (test code = 11.1 GM/DL 12.0-15.0 L 410) HEMATOCRIT (BEAKER) (test code = 33.0 % 36.0-45.0 L 411) POTASSIUM-STAT [id number] 08:10:41 Test Item Value Reference Range Interpretation Comments POTASSIUM (BEAKER) (test code = 3.4 meq/L 3.6-5.5 L 379) BLOOD GAS, [id number] 08:10:40 Test Item Value Reference Range Interpretation [...] (test code = 1819) 95.0 SODIUM NA-STAT [id number] 08:10:40 Test Item Value Reference Range Interpretation Comments SODIUM (BEAKER) (test code = 381) 134 meq/L 136-145 L CALCIUM, [id number] 08:10:34 Test Item Value Reference Range Interpretation Comments CALCIUM IONIZED (BEAKER) (test 1.13 mmol/L 1.12-1.27 code = 698) PH, BLOOD (BEAKER) (test code = 7.47 1810) GLUCOSE-STAT [id number] 08:10:34 Test Item Value Reference Range Interpretation Comments GLUCOSE RANDOM (BEAKER) (test code 104 mg/dL 70-110 = 652) SARS-CoV2/RT-PCR (Asymptomatic ONLY)2022-04-24 04:46:57 Test Item Value Reference Range Interpretation Comments SARS-COV2/RT-PCR Negative Not Detected, (test code = Negative, See 62767-5) external report for linked test SARS-COV-2 [facility] PERFORMING LAB (test code = 29436-3) MISHA (test code = Negative result for [...] of the Act. Fact Sheet for Healthcare Providers:https://www.iLogon/sites/default/f stanley/product/documents/F act_Sheet_HC_Providers_L lfo_ZXEM-EwH-2.pdf Fact Sheet for Healthcare Patients:https://www.[employer]/sites/default/fi les/product/documents/Fa ct_Sheet_Patients_Lyra_S ARS-CoV-2.pdf Performing Laboratory:[facility], [place] [address] [place], [place] [address]ARS-CoV2/RT-PCR (Asymptomatic ONLY)2022-04-24 04:46:57 Test Item Value Reference Range Interpretation Comments SARS-COV2/RT-PCR Negative Not Detected, (test code = Negative, See 72736-0) external report for linked test SARS-COV-2 [facility] PERFORMING LAB (test code = 95580-5) MISHA (test code = Negative result for [...] of the Act. Fact Sheet for Healthcare Providers:https://www.iLogon/sites/default/f stanley/product/documents/F act_Sheet_HC_Providers_L oaj_TTFB-MeA-2.pdf Fact Sheet for Healthcare Patients:https://www.[employer]/sites/default/fi les/product/documents/Fa ct_Sheet_Patients_Lyra_S ARS-CoV-2.pdf Performing Laboratory:[facility] [place] [address].[place], [place] [address] [place], [place] [address]ARS-COV2/RT-PCR ([facility])2022-04-24 04:46:57 Test Item Value Reference Range Interpretation Comments SARS-COV2/RT-PCR (test Negative Not Detected, Negative, code = 9106771) See external report for linked test SARS-COV-2 PERFORMING LAB [facility] (test code = 2034122) Negative result for this test determines that [...] of the Act.Fact Sheet for Healthcare Prov iders:https://www.[employer]/sites/default/files/product/documents/Fact_Sheet_HC _Qxhoodond_Jmvk_FGBB-TqB-1.pdfFact Sheet for Healthcare Patients:https://www.[employer]/sites/default/files/product/docume nts/Otnw_Xzprf_Jtlqvkjz_Oggx_LMKJ-LtL-0.pdfPerforming Laboratory:[facility], [place] [id number] 18:53:19 Test Item Value Reference Range Interpretation Comments PARTIAL THROMBOPLASTIN TIME 35.9 seconds 22.5-36.0 (BEAKER) (test code = 760) PROTHROMBIN TIME/[id number] 18:52:17 Test Item Value Reference Range Interpretation Comments PROTIME (BEAKER) 14.7 seconds 11.9-14.2 H (test code = 759) INR (BEAKER) (test 1.17 See_Comment [Automat ed message] code = 370) The system [employer]ruit[employer] generated this result transmitted ref erence range: <=5.90. The reference range was not used to int erpret this result as normal/abnormal . RECOMMENDED COUMADIN/WARFARIN INR THERAPY RANGESSTANDARD DOSE: 2.0 - 3.0 Includes: PROPHYLAXIS for venous thrombosis, systemic embolization; TREATMENT for venous thrombosis and/or pulmonary embolus.HIGH RISK: Target INR is 2.5-3.5 for patients with mechanical heart valves.CBC W/PLT COUNT & AUTO [id number] 18:44:32 Test Item Value Reference Range Interpretation [...] PERCENT (BEAKER) (test code = 2801) SARS-COV2/RT-PCR ([facility])2022-04-22 21:00:47 Test Item Value Reference Range Interpretation Comments SARS-COV2/RT-PCR (test code = Negative Negative 8710990) Negative result for this test determines that [...] 564(g) of the Act.Testing was performed using Wizdee SARS-CoV-2 assay.Fact Sheet for Healthcare Providers:https://www.MyNewPlace.Amicrobe/adelfo/RT SARS-CoV-2 HCP Fact Sheet 51- 453084.pdfFact Sheet for Healthcare Patients:https://www.MyNewPlace.Amicrobe/adelfo/RT SARS-CoV-2 Patient Fact Sheet EN 51-701300B2.pdfB-TYPE NATRIURETIC FACTOR (BNP) 2022-04-22 12:07:58 Test Item Value Reference Range Interpretation Comments B-TYPE NATRIURETIC PEPTIDE (BEAKER) 600 pg/mL 0-100 H (test code = 700) Fish Bait Processing Supervisor ID - JONI LCOMPREHENSIVE METABOLIC [id number] 12:03:13 Test Item Value Reference Range Interpretation [...] S NOT APPLICABLE FOR DIALYSIS PATIEN TS. Fish Bait Processing Supervisor ID - JONI LPROTHROMBIN TIME/[id number] 11:43:06 Test Item Value Reference Range Interpretation Comments PROTIME (BEAKER) 15.1 seconds 11.9-14.2 H (test code = 759) INR (BEAKER) (test 1.21 See_Comment [Automat ed message] code = 370) The system [employer]Talk generated this result transmitted ref erence range: <=5.90. The reference range was not used to int erpret this result as normal/abnormal . RECOMMENDED COUMADIN/WARFARIN INR THERAPY RANGESSTANDARD DOSE: 2.0 - 3.0 Includes: PROPHYLAXIS for venous thrombosis, systemic embolization; TREATMENT for venous thrombosis and/or pulmonary embolus.HIGH RISK: Target INR is 2.5-3.5 for patients with mechanical heart valves.CBC W/PLT COUNT & AUTO [id number] 11:36:56 Test Item Value Reference Range Interpretation [...] (BEAKER) (test code = 2801) CT, CTA [id number] 15:27:00Unlisted Reason for Exam - Click Yes and Enter Reason Below->YesUnlisted Reason for Exam->Pre op planning, aortic anatomy and cannulation site identification, severe MR, severe TR [facility] CENTERName: SCARLETT GARRETT : 1935 Sex: FAddendum BeginsREPORT STATUS:A Addendum: I agree with the previously described non vascular findings. Sigmoid diverticulosis, without evidence for diverticulitis. Signed: Jose Ramon Soares MDReport Verified Date/Time: 04/18/2022 15:27:52 Reading Location: [facility] Diagnostic Imaging Reading Room - [facility] 1.310.12Addendum EndsFINAL REPORT CT angiography of [...] An addendum will be dictated by the Molding Line Operator Radiologist regarding the nonvascular findings. THE REPORT WILL ONLY BE CONSIDERED COMPLETE AFTER THE ADDENDUM HAS BEEN DICTATED. Signed: Fabrizio Cardona MDReport Verified Date/Time: 04/17/2022 16:14:11 CT, CTA, [id number] 15:27:00Unlisted Reason for Exam - Click Yes and Enter Reason Below->YesUnlisted Reason for Exam->Pre op planning, aortic anatomy and cannulation site identification, severe MR, severe [facility] : 1935 Sex: FAddendum BeginsREPORT STATUS:A Addendum: I agree with the previously described non vascular findings. Sigmoid diverticulosis, without evidence for diverticulitis. Signed: Jose Ramon Soares MDReport Verified Date/Time: 04/18/2022 15:27:52 Reading Location: [facility] Diagnostic Imaging Reading Room - [facility] 1.310.12Addendum EndsFINAL REPORT CT angiography of the thoracoabdominal aorta and pelvic arteries, 16-Apr-22 INDICATION: This is a 86 year old female with with severe mitral regurgitation tricuspid regurgitation, presents for preoperative assessment, for aortic anatomyand cannulation site. TECHNIQUE: Spiral acquisition before and during intravenous contrast administra tion using a Tenebril multidetector CT scanner. Images were obtained before [...] An addendum will be dictated by the Molding Line Operator Radiologist regarding the nonvascular findings. THE REPORT WILL ONLY BE CONSIDER ED COMPLETE AFTER THE ADDENDUM HAS BEEN DICTATED. Signed: Fabrizio Cardona Verified Date/Time: 04/17/2022 16:14:11 [id number] 10:19:24 Test Item Value Reference Range Interpretation Comments POC-Creatinine (test 1.0 mg/dL 0.6-1.3 : TESTE D AT [facility] 1317 code = 97450-7) [facility] 77 478: Fish Bait Processing Supervisor/Techni juan ID = [id number] for Rosey Guillenu POC-EGFR (test code 53 mL/min/1.73M2 = 78705-6) [facility]-[id number] 10:19:24 Test Item Value Reference Range Interpretation Comments POC-Creatinine (test 1.0 mg/dL 0.6-1.3 : TESTE D AT [facility] 1317 code = 44105-1) [facility] 77 478: Fish Bait Processing Supervisor/Techni juan ID = [id number] for Sandip -Sabase, Rebecca POC-EGFR (test code 53 mL/min/1.73M2 = 98993-5) [facility]-[id number] 10:19:24 Test Item Value Reference Range Interpretation Comments POC-CREATININE 1.0 mg/dL 0.6-1.3 : TESTED AT [facility] [facility] [facility] (test [address] [place], code = 1859) [facility] 77 478: Fish Bait Processing Supervisor/Techni juan ID = [id number] for Rebecca Bello POC-EGFR 53 mL/min/1.73M2 (DESIRE) (test code = 1860) - XR CHEST 2 [id number] 00:00:00 [facility] : 1935 Sex: FFAX: Chace Sanz MD [phone] [place]: St: REG FAX: Christel Alvarez Name: SCARLETT GARRETTBARBARANISHA [facility]: 1935 Age/S: 86/F [address] [place] [address] Unit #: [id number] Loc: [place] [address] Phys: Christel Alvarez WEED BURNER Acct: [id number] Dis Date: Status: REG [facility] [place] PHONE #: [phone] Exam Date: 04/01/20224 FAX #: [phone] Reason: PREOP EXAMS: CPT CODE: [id number] XR CHEST 2 V 40435 PROCEDURE INFORMATION: Exam: XR Chest Exam date [...] Technologist: Nazanin Martinez RT(R) Trnscrd Date/Time/By: 04/02/2022 (5648) : By: SilvanoCL26 Orig Print D/T: S: 04/02/2022 (2140) PAGE 1 Signed ReportCOVID 19 Asymptomatic IH [id number] 19:00:00 Test Item Value Reference Range Interpretation [...] viable (live) and non-viable,SARS -CoV, and SARS-CoV-2. Angie t performance dep ends on theamount of vi donna (antigen) in th e sample.This angie t has not been FDA cleare d or approved; the t est hasbeen authori zed by FDA under an Em ergency Use Authorizati on(EUA) for use by labo ratories certified under the CLIA thatmeet the requirements to perform moderate, high or waivedcomplexit y tests. BASIC METABOLIC [id number] 16:31:00 Test Item Value Reference Range Interpretation [...] = 9.7 mg/dL 8.0-10.5 N CA) PROTHROMBIN [id number] 16:29:00 Test Item Value Reference Range Interpretation [...] (to prevent recurrent infar ct). CBC W/AUTO [id number] 16:22:00 Test Item Value Reference Range Interpretation [...] 0.00 x10 3/uL 0.0-0.1 N NRBC#) SARS-COV2/RT-PCR ([facility])2020-04-28 10:18:00 Test Item Value Reference Range Interpretation Comments SARS-COV2/RT-PCR (test code = Negative Not Detected, Negative 8865863) SARS-COV-2 PERFORMING LAB [facility] (test code = 6968342) Negative result for this test determines that [...] of the Act.Fact Sheet for Healthcare Prov iders:https://www.[employer].Lvmae/sites/default/files/product/documents/Fact_Sheet_HC _Xpqajlepk_Sdwe_HZXT-RfW-4.pdfFact Sheet for Healthcare Patients:https://www.[employer]/sites/default/files/product/docume nts/Bdpp_Stczc_Ctztwvpm_Zbcb_QHXN-DpS-8.pdfPerforming Laboratory:[facility] [place] [address]- [facility] L-SPINE W/O CONT 2019-12-05 13:16:00 Patient Name: SCARLETT GARRETT Unit No: [id number] EXAMS: CPT CODE: [id number] MRI L-SPINE W/O CONT 22924 TECHNIQUE: Multiplanar, multisequence MRI examination performed of [...] Reported and signed by: Bartolo Brumfield M.D. [facility] NAME: SCARLETT GARRETT [address] [facility] PHYS: Lobo Villalba MD : 1935 AGE: 84 SEX: F [place], [place] [address] LOC: Y.MRI PHONE #: [phone] EXAM DATE:12/02/2019 STATUS: DEP CLI FAX #: [phone] RAD #: D/C DT PAGE 1 Signed Report (CONTINUED) Patient Name: SCARLETT GARRETT Unit No: [id number] EXAMS: CPT CODE: [id number] MRI L-SPINE W/O CONT 88328 (Continued) CC: Richi Sanchez M.D. Technologist: AMRIK FORD, MRI Transcribed D/ (1316) [facility]: SC[facility] GAR[facility]TT [address] [place] [address] PHYS: Lobo Villalba MD : 1935 AGE: 84 SEX: F [place] [address] LOC: Y.MRI PHONE #: [phone] EXAM DATE: 12/02/2019 STATUS: DEP CLI FAX #: [phone] RAD #: D/C DTPAGE 2 Signed Report Patient Name: SCARLETT GARRETT Unit No: [id number] EXAMS: CPT CODE: [id number] MRI L-SPINE W/O CONT 36316 (Continued) Orig Print D/T: S: 12/05/2019 (1320) [facility] NAME: SCARLETT GARRETT [address] [place] [address] PHYS: Lobo Villalba MD : 1935 AGE: 84 SEX: F [place] [address] LOC: Y.MRI PHONE #: [phone] EXAM DATE: 12/02/2019 STATUS: DEP CLI FAX #: [phone] RAD #: D/C DT PAGE 3 Signed Report Notes Date/Time Note Provider Source 2023-04-02 15:40:00 [id number] [address] PATIENT NAME: SCARLETT GARRETT ADMIT DATE: 04/02/23ACCOUNT NO: [id number] ROOM NO: AGE: 87 REPORT TYPE: OPERATIVE REPORT SEX: F ADMITTING PHYSICIAN: ATTENDING PHYSICIAN:Haja Jennings MD OPERATION DATE: 04/02/2023 PREOPERATIVE DIAGNOSES: Tachy-abiodun syndrome, sick sinus syndrome, symptomatic sinus bradycardia and paroxysmal atrial fibrillation. POSTOPERATIVE DIAGNOSIS: PROCEDURE PERFORMED: Dual chamber pacemaker implant and moderate sedation. SURGEON: ASSOCIATE LOAN OFFICER: ANESTHESIA: CLINICAL HISTORY: The patient is an 87-year-old with paroxysmal AFib, previous maze procedure and left atrial clipping. She came in for elective pacemaker implant for symptomatic sinus bradycardia with heart rate in the 40s. Risks including but not limited to bleeding, infection, damaging to large blood vessel, damaging to the heart wall, possible need for chest tube or cardiac surgery, possible stroke or were explained. The patient agreed to proceedwith procedure and signed informed consent. PROCEDURE IN DETAIL: Moderate sedation was done under my supervision, total of 2 mg Versed and 50 mcg fentanyl and 25 mg Benadryl were given. She was monitored by a trained staff in the drop crew laborer for 45 minutes of duration of procedure with no complications. Next, a left upper venogram showed patent axillary vein. We formed a pocket below the left clavicle. We accessed the axillary vein with modified Seldinger technique x2 using micropuncture. Then, using two 7-[place]er sheath, we placed RV lead in distal RV septum and RA lead in RA appendage. Sensing and pacing parameter were good in both leads. Lead was sutured to the facial plane, connected to the pacemaker generator. We flushed the pocket with antibiotic solution, was closed with 2-0 and 3-0 Vicryls and 4-0Stratafix. IMPLANTED MATERIAL: [employer] dual chamber pacemaker, model #311, serial#[id number]. The atrial lead, [employer] 7840, serial #[id number]. The RV lead, [employer] 7841, serial #[id number]. Sensing Pacing Parameter: R-wave15 millivolts, impedance 834 ohms, threshold 0.4 at 0.4. P-wave 2.5 millivolt with good injury current and impedance 765. Device was programmed to DDR 60/130. ASSESSMENT AND PLAN: Successful dual chamber pacemaker implant. If the patient PATIENT NAME: SCARLETT GARRETT is stable, she can be discharged to home today on minocycline 100 mg b.i.d. for 5 days. Follow up in 1 week for wound check. Keep the wound covered and dry for 1 week. Avoid heavy lifting and stretching the arm above the shoulder for 1month and we will hold the aspirin for 4-5 days. The patient in AFib today withrates of 90-100. We instructed her family to restart her metoprolol. Since we have a pacemaker right now, for rate control we can restart beta alanis therapyand if needed, we can initiate antiarrhythmic therapy with Multaq or amiodarone as an outpatient if she is to have paroxysmal AFib rather than chronic. Dictated By: Haja Jennings MD Date Dictated: 04/02/2023 15:40:56Date Transcribed: 04/02/2023 21:26:39MS/AMSJob #: [id number] ID: [id number] by Haja Jennings MD On 04/16/2023 11:49:17 AM at 1149 PATIENT NAME: SCARLETT GARRETT lkzpuo8236-55-94H57:26:00G.[id number] ailable for patient xglpPKSTLHYRQYCNDN9790-05-43Z04:49:46 2022-04-26 10:22:50 [id number]:22:[address] [facility] OPERATIVE/PROCEDURE REPORTSCARLETT GARRETTFACILITY: SLEHBilling #: [id number] [facility] [id number] : 1935DATE OF PROCEDURE: 04/26/2022URGEON: Gus Brito [facility]ENTERREOPERATIVE DIAGNOSIS: Hemothorax.POSTOPERATIVE DIAGNOSIS: Hemothorax.PROCEDURE PERFORMED: Right anterior thoracotomy, evacuation ofhematoma, and placement of chest tube.PHLEBOTOMY SUPERVISOR: ANNABELLA Garcia.ANESTHETIC: General endotracheal.HISTORY: The patient underwent a thoracotomy operation a fewdays back. She had retained hemothorax superiorly. She isbreathing okay, but there was not full lung expansion, so wetook her back for evacuation.FINDINGS: The patient had about 300 mL of old clotted bloodthat we removed. There was no active bleeding.DESCRIPTION OF PROCEDURE: The patient's chest was draped andprepped. A right anterior thoracotomy was performed. Thesutures were removed extended through the 4th intercostalspace. We then retracted the lung and identified thehemothorax, evacuated with manual removal. The clots wereremoved. We then irrigated with antibiotic solution, inspectedall surgical areas and there was no active bleeding. So, oncethe hematoma was evacuated, we irrigated with antibiotics. Weadded a 28-[place] chest tube up into the apex and then closedwith multiple layers of absorbable suture. I directlyparticipated in all figueroa portions including evacuation ofhematoma and exploration was otherwise immediately availablefor the entire operation. Of note, we gave Ancef andvancomycin for antibiotics, which we will discontinue within 48hours. We did not use any specific DVT prophylaxis since thisis not indicated for cardiac surgical procedures.MRM/MODLDD: 04/26/2022 10:03:40DT: 04/26/2022 10:22:50Job #: [id number], [id number]:06:19 2022-04-24 17:44:51 [id number]:44:[address] [facility] OPERATIVE/PROCEDURE REPORTSHERICE SCARLETTFACILITY: SLEHBilling #: [id number] Room: [address] #: [id number] : 1935DATE OF PROCEDURE: 04/24/2022URGEON: ADRIANA MurrietaREOPERATIVE DIAGNOSES: Chronic persistent permanent atrialfibrillation, severe mitral regurgitation, severe tricuspidregurgitation.POSTOPERATIVE DIAGNOSES: Chronic persistent permanent atrialfibrillation, severe mitral regurgitation, severe tricuspidregurgitation.PROCEDURES PERFORMED: Mitral valve repair with placement of a28 mm CG annuloplasty band, tricuspid valve repair withplacement of a 28 mm triad annuloplasty band, complete biatrialmaze procedure with AtriCure radiofrequency ablation andcryoablation. Minimally invasive via right anteriorthoracotomy and placement of 8 mm Dacron conduit chimney in thefemoral artery and femoral artery exploration for cannulationFIRST ASSOCIATE LOAN OFFICER: FEL. CharlyANESTHETIC: General endotracheal.HISTORY: The patient presented with chronic atrialfibrillation, also with severe mitral and tricuspidregurgitation. She understood the risks of stroke, bleeding,and and agreed to proceed.FINDINGS: The patient's etiology was mainly annulardilatation. There was some mild prolapse of P2, but it wasmainly annular dilatation of both the mitral and tricuspidvalve pathology. There was no regurgitation at the end of theprocedure.PROCEDURE IN DETAIL: The patient was successfully draped andprepped. There was no aortic cannulated in the ascending aortafrom this minimally invasive case. We did a cutdown on thefemoral artery and vein. The femoral artery was thought toosmall for percutaneous cannulation and be unsafe distalperfusion, so we used a side biter clamp, gave partialheparinization and sewed an 8 mm Hemashield graft on Dacronconduit for later cannulation because there was no otheraccessible area to cannulate. We then did a right anteriorthoracotomy in the breast crease, entered the 4th intercostalspace, put in the retractor, opened up the pericardiumlongitudinally. We then cannulated the femoral artery chimneyfemoral vein with a 21 and then put in a 22 metal tip into theSVC, antegrade and retrograde, went on pump, decompressed theheart, and then encircled the right pulmonary veins at theradiofrequency ablation and did four fires from posterior andfrom superior in order to ablate the pulmonary veins. We thencross clamped and arrested with cold antegrade and retrogradewhich we used intermittently throughout the procedure withtopical cooling. We opened the left atrium from the rightsuperior pulmonary vein inferiorly. Visualization was verydifficult given the large nature of her atrium. We were ableto get a retractor and no one visualized. We then usedradiofrequency ablation to the annular lesion x3 and theinferior pulmonary connecting lesion x3. We then used thecryoprobe in order to do the superior connecting lesion for 2minutes. We then did coronary sinus ablation for 2 minutes andannular ablation for 2 minutes. We then took 2-0 Ethibondsutures from trigone to trigone around the mitral valve andbrought through the sewing ring of a 28 mm CG band from[employer] and tied in place and secured in well. There was noregurg, so we closed up the left atrium over the single layerof running 3-0 Prolene suture. We then removed the cross-clampcardioverted. We placed ventricular pacing wire. We thenopened up the right atrium longitudinally. We then created a10 o'clock lesion through the coronary sinus catheter site rafael 2 o'clock lesion to the tricuspid annulus. We then made apuncture hole in the appendage and made a 10 o'clock lesion for2 minutes to the tricuspid annulus. We then did a free walllesion behind in the atrial appendage on the right atrium with3-0 ablation. We then opened up the atria ostomy and then didthe SVC lesions x3 and IVC lesions x3, this time then completedthe maze procedure. Again, visualization of the tricuspidvalve was very challenging, but we were able to slowly getsutures in half on the septal leaflet, the posterior leafletand 3/4 of the anterior leaflet. We brought into the sewingring of a 28 mm triad annuloplasty band and tied in place andsecured in well, so we closed up the atrium with a double layerrunning 4-0 Prolene suture, meticulously de-aired the heart andweaned the patient from pump. The cannulas was removed, thesite secured. The graft in the groin was stapled off with a TA30 stapler and we put in multiple chest tubes and oncehemostasis was obtained, we closed with multiple layers ofabsorbable suture. I directly participated in all figueroa portionsincluding cannulation and the entire period of cardiopulmonarybypass and placement of the Dacron conduit and femoralcannulation and was otherwise immediately available for entireoperation except for a very short 10 minutes near the beginningduring which Dr. Pam Red was immediately available.Of note, we gave Ancef and vancomycin for antibiotics, which wewill discontinue within 48 hours. We did not use any specificDVT prophylaxis since this is not indicated for cardiacsurgical procedures.MRM/MODLDD: 04/24/2022 13:11:23DT: 04/24/2022 17:44:51Job #: [id number], [id number]:00:06 2022-04-09 15:59:00 [id number] [place] [address] PATIENT NAME: SCARLETT GARRETT ADMIT DATE: 04/02/22ACCOUNT NO: [id number] ROOM NO: AGE: 86 REPORT TYPE: eTRANSESOPHAGEAL ECHO REPORT SEX: F ADMITTING PHYSICIAN: ATTENDING PHYSICIAN:Chace Nava MD *[place], [place] [address]Phone: Wjr: [phone] Transesophageal Echocardiogram with Cardioversion Patient: Scarlett Garretttudy Date: 04/02/2022 BP: 112 / 78 Location: COCCLURN: [id number] : 1935 Age: 86 Height: 69 in / 175.3 cmAccession#: [id number] Gender: F Weight: 169.6 lb / 77.1 kgBMI/BSA: 25.1 kg/m 2 / 1.93 m 2 *Ordering Physician: * Chace Nava *Interpreting Physician: * Elijah Mas MD*Corn Detasseler: * Lorna Irving Indications: A-FIB. Study data: Transesophageal echocardiogram with cardioversion.Consent: The risks, benefits, and alternatives to the procedure wereexplained to the patient and informed consent was obtained. Procedure:Initial setup: The patient was brought to the laboratory in the fastingstate.Intravenous access was obtained. Surface ECG leads and pulseoximetric signals were monitored. Sedation. Moderate sedation wasadministered by cardiology staff. Transesophageal echocardiography wasperformed. Topical anesthesia was obtained using benzocaine spray. Atransesophageal probe (SN: [id number]) was inserted by the attendingcardiologist without difficulty. Patient status: Outpatient. Patientroom number: CVPREP 17. Study status: Routine. Study completion: Thepatient tolerated the procedure well. There were no complications.Rhythm: Atrial fibrillation. PATIENT NAME: SCARLETT GARRETT Findings Left ventricle: The cavity size is normal. Systolic function is normal.Right ventricle: The cavity size is normal. Systolic function isnormal.Left atrium: The atrium is dilated. The appendage is of normal size.Emptying velocity is normal. There is no evidence of a thrombus in theatrial cavity or appendage. No spontaneous echo contrast is observed.Right atrium: The atrium is severely dilated.Atrial septum: No defect or patent foramen ovale is identified. Echocontrast study shows no bmgxe-ou-nmpc atrial level shunt.Aortic valve: The valve is trileaflet. Thickening, consistent withsclerosis. Cusp separation is normal. There is no evidence of avegetation. There is no evidence of stenosis. There is noregurgitation.Mitral valve: The valve is structurally normal. There is noevidence of a vegetation. There is severe regurgitation.Tricuspid valve: The valve is structurally normal. There is noevidence of a vegetation. There is wide-open regurgitation.Pulmonic valve: The valve is structurally normal. There is noevidence of a vegetation. There is no regurgitation. Measurements Mitral valve Value MR peak v 5.07 m/sec ERO, PISA 0.35 cm 2 MR vol, PISA 66 ml Conclusions Summary: 1. Left ventricle: The cavity size is normal. Systolic function is normal.2. Left atrium: The atrium is dilated. There is no evidence of a thrombus in the atrial cavity or appendage. No spontaneous echo contrast is observed.3. Right atrium: The atrium is severely dilated.4. Atrial septum: No defect or patent foramen ovale is identified. Echo contrast study shows no ytexf-nn-deyy atrial level shunt.5. Aortic valve: Thickening, consistent with sclerosis. There is no evidence of a vegetation.6. Mitral valve: There is no evidence of a vegetation. There is severe regurgitation.7. Tricuspid valve: There is no evidence of a vegetation. There is wide-open regurgitation.8. Pulmonic valve: There is no evidence of a vegetation.9. Cardioversion done: Successfully converted to sinus rhythm. Prepared and electronically signed byPATIENT NAME: SCARLETT GARRETT Elijah Mas MD04/09/2022 15:59 at 1559 PATIENT NAME: SCARLETT GARRETT [id number]:59:00G.[id number] vailable for patient [id number]:59:48 2022-04-02 12:38:00 [id number]:38:[id number] [facility] ([facility])Clinical NoteREPORT#:[id number] REPORT STATUS: SignedDATE:04/02/22 TIME: 1238 PATIENT: SCARLETT GARRETT UNIT #: [id number]#: [id number] ROOM/BED:: 36 AGE: 86 SEX: F ATTEND: Chace Nava [facility] AUTHOR: Johnna May WEED BURNER * ALL edits or amendments must be made on the electronic/computer document * Clinical NoteNote:STS RISK SCORESProcedure: Isolated MVR Risk of Mortality: 3.681%Renal Failure: 1.950%Permanent Stroke: 1.693%Prolonged Ventilation: 10.781%DSW Infection: 0.072%Reoperation: 5.923%Morbidity or Mortality: 17.426%Short Length of Stay: 16.028%Long Length of Stay: 12.420% at 2131 at 1940 RPT #:[id number] OF REPORTCLClinical [id number]:38:00G.[id number] ilable for patient [id number]:32:06 2022-04-02 12:17:00 [id number]:17:00 [facility] ([facility])Cardiothoracic Surgery ConsultREPORT#:[id number] REPORT STATUS: SignedDATE:04/02/22 TIME: 1217 PATIENT: SCARLETT GARRETT UNIT #: [id number]#: [id number] ROOM/BED:: 36 AGE: 86 SEX: F ATTEND: Chace Nava [facility] AUTHOR: Johnna May WEED BURNER * ALL edits or amendments must be made on the electronic/computer document * Rosey Potter 04/02/22 1217:History of Present Illness HPIChief complaint:Shortness of breath PCP:PCP: Chace Nava MD Requesting ClinicianDr Elijah HPI:Very pleasant 86-year-old female with past medical history of hyperlipidemia, mitral and tricuspid valve regurgitation, right-sided heart failure, atrial fibrillation (on Eliquis) who has been experiencing worsening shortness of breath. Recent echocardiogram showed LVEF 64%, dilated right atrium, mitral regurgitation, moderate tricuspid regurgitation and mild to moderate pulmonary hypertension. She has been admitted to the hospital today for LARS. CV surgery consulted for evaluation HistoryAdditional Medical History:HLDAtrial fibrillationDegenerative disc diseaseAdditional Surgical History:Back surgeryKnee Replacement Alcohol Use Denies EtOH useDrug Use Denies recreational drugsMedications:Home Medications:Medication Dose/Rte/Freq Days Qty Entered Last Max Daily Dose Reviewed ESCITALOPRAM (LEXAPRO) 20 MG PO DAILY 03/07/13 04/02/22Strength: 10 MG TAB 0802 0847 CETIRIZINE (ZyrTEC) 5 MG PO 03/07/13 04/02/22Strength: 5 MG TAB DAILY PRN ALLERGIES 0804 0847[VITAMIN A D] 1 TAB PO DAILY 03/07/13 04/02/22Strength: 0805 0847 SOTALOL (BETAPACE) 160 MG PO BID 04/01/22 04/02/22Strength: 160 MG TAB 1822 0847 DILTIAZEM (CARDIZEM) 30 MG PO TID 04/01/22 04/02/22Strength: 30 MG TAB 1823 0847 APIXABAN (ELIQUIS) 5 MG PO BID 04/01/22 04/02/22Strength: 5 MG TAB 1823 0847 LEVOTHYROXINE 50 MCG PO DAILY 04/01/22 04/02/22 (SYNTHROID) 182 0847Strength: 50 MCG TAB MONTELUKAST (SINGULAIR) 10 MG PO DAILY 04/01/22 04/02/22Strength: 10 MG TAB 1824 0847 MAGNESIUM OXIDE 400 MG PO DAILY 04/01/22 04/02/22 (MAG-OXIDE) 1824 0847Strength: 400 MG TAB ZINC GLUCONATE 50 MG PO DAILY 04/01/22 04/02/22Strength: 50 MG TAB 1824 0847[AREDS 2] 04/01/22 04/02/22Strength: 182 0847[TUMERIC 4000 MG] DAILY 04/01/22 04/02/22Strength: 182 0847 traZODone (DESYREL) 100 MG PO BEDTIME 03/07/13 04/02/22Strength: 100 MG TAB 0803 0847 ASCORBIC ACID (VITAMIN C) 2,000 MG PO DAILY 03/07/13 04/02/22Strength: 1,000 MG TAB 0806 0847[FISH OIL] 2,000 MG PO DAILY 03/07/13 04/02/22Strength: 0807 0847 Current Hospital Medications:Cardiovascular Drugs Sig/Sneha Start time Last Medication Dose Route Stop Time Status Admin Amiodarone HCl 100 ML .STK-MED ONE 04/02 0933 DC 04/02 (NEXTERONE 150MG/D5W IV 0953 100ML) Lidocaine HCl 0 .STK-MED ONE 04/02 922 DC (XYLOCAINE) .ROUTE Lidocaine HCl 2 ML PREOP ONCALL 04/01 1800 AC (LIDOCAINE HCL/PF) LOCAL 05/01 2359 Lidocaine HCl 2 ML PREOP ONCALL 04/01 1800 AC (LIDOCAINE HCL/PF) LOCAL 05/01 2359 Central Nervous System Agents Sig/Sneha Start time Last Medication Dose Route Stop Time Status Admin Propofol 20 ML .STK-MED ONE 04/02 922 DC (DIPRIVAN 200MG/20ML IV INJECTION) Acetaminophen 1,000 MG PREOP ONCALL 04/01 1800 CKD (TYLENOL EXTRA PO 05/01 2359 STRENGTH) Electrolytic, Caloric, And Camille Sig/Sneha Start time Last Medication Dose Route Stop Time Status Admin Lactated Ringer's 1,000 ML PREOP ONCALL 04/01 1800 AC (LACTATED RINGERS) IV 05/01 2359 Sodium Chloride 500 ML PREOP ONCALL 04/01 1800 AC (SODIUM CHLORIDE IV 05/01 2359 0.9%) Sodium Chloride 500 ML PREOP ONCALL 04/01 1800 AC (SODIUM CHLORIDE IV 05/01 2359 0.9%) Sodium Chloride 1,000 ML PREOP ONCALL 04/01 1800 AC (SODIUM [...] DC 04/02 Tetracaine HCl MM 0953 (CETACAINE) Allergies:Coded Allergies:ciprofloxacin (Intermediate, RASH 04/01/22)levofloxacin (From LEVAQUIN) (Mild, RASH 03/07/13) Ambulatory Status Cane Review of Systems Review of SystemsConstitutional:Denies: fever, malaise. Allergy/Immun:Denies: allergic reaction. Cardiovascular:Denies: palpitations. Heme:Denies: bleeding. Neuro:Denies: dizziness, headache. Objective Physical ExamVS/I O:Last Documented: Result Date Time O2 Delivery Nasal cannula 04/02 1040 O2 Flow Rate 4 04/02 1040 B/P 143/96 04/01 1840 Temp 97.8 04/01 1840 Pulse 111 04/01 1840 Resp 18 04/01 1840 24 hour I O ending at 0700: 04/02 0700 04/01 1900 Intake Total Output Total Balance Patient 170 lb Weight Weight Standing scale Measurement Method PATIENT WEIGHT: Weight (lb): 170Weight (oz): 6.68Weight (kg): 77.300 General appearance: alert, oriented, mental status normal, no respiratory distressHEENT: anictericNeck: supple/no meningismusCardiovascular: BradycardiaRespiratory: aerating well, symmetric expansion, no distressAbdomen: soft, non-tender, no distentionExtremities: moves allNeuro/AIRSET CASTER: alert, oriented X 3, normal speech, no motor deficitsPsychiatry: normal affect, normal mood ResultsFindings/Data:Laboratory Tests 04/01 1535 Chemistry Sodium (134 - [...] PT Patient/Control Mix (9.3 - 12.9 SECONDS) 19.7 H Laboratory Tests 04/01 1535 Hematology WBC [...] % (Auto) (14.0 - 32.0 %) 14.3 [place] % (Auto) (4.8 - 9.0 %) 13.7 H Eos % (Auto) (0.3 - 3.7 %) 4.1 H Baso % (Auto) (0.0 - 2.0 %) 0.8 Neut # (Auto) (2.0 - 7.6 x10 3/uL) 5.68 Lymph # (Auto) (1.0 - 3.8 x10 3/uL) 1.21 [place] # (Auto) (0.1 - 0.8 x10 3/uL) 1.16 H Eos # (Auto) (0.0 - 0.2 x10 3/uL) 0.35 H Baso # (Auto) (0.0 - 0.2 x10 3/uL) 0.07 Abs Immat Gran (auto) (0.00 - 0.03 x10 3/uL) 0.02 Add Manual Diff NO Immature Gran % (0.0 - 2.0 %) 0.2 Nucleated RBC % (0 - 0 %) 0.0 Nucleated RBCs # (Man) (0.0 - 0.1 x10 3/uL) 0.00 Laboratory Tests 04/01 1720 Serology SARS-CoV-2 Ag (Rapid) (Negative) Negative Radiology data:Recent Impressions:RADIOLOGY - XR CHEST 2 V 04/01 1624 Report Impression - Status: SIGNED Entered: 04/02/2022 0752 IMPRESSION: No acute cardiopulmonary abnormalities.Impression By: [email or web address] - Vazquez Amaro M.D. Diagnosis, Assessment PlanFree Text A P:86-year-old female past medical history of hyperlipidemia, mitral and tricuspid valve regurgitation, right-sided heart failure, atrial fibrillation (on Eliquis)who has been experiencing worsening shortness of breath. Recent echocardiogram showed LVEF 64%, dilated right atrium, mitral regurgitation, moderate tricuspid regurgitation and mild to moderate pulmonary hypertension. She has been admitted to the hospital today for LARS. CV surgery consulted for evaluation. PLAN Dr Ledesma explained to the patient the LARS findings and recommended surgical mitral and tricuspid repair/replacement. The case was discussed with Dr Nava, right and left heart cath recommended. Patient will follow up with Dr Baltazar larson after right and left heart cath to discuss surgery. Thank you for the consultation. The patient was seen and plan reviewed with Arash Solano 04/10/221933:Attestations Physician AttestationAgree w/findings plan:I have seen and examined Ms. Garrett. I agree with the findings and plan as documented by [facility]. Briefly, 86-year-old female with severe mitral regurgitation and moderate tricuspid regurgitation. Patient will benefit from intervention the mitral and possibly the tricuspid valve. I had a long discussion with the patient, explained to her the echo finding and need for intervention of mitral and tricuspid valve. I discussed with her the procedure, risk involved, benefit, alternatives including MitraClip, and complications. I have also explained to the patient the need for right and left heart cath. at 2131 at 1940 RPT #:[id number] OF REPORTWBFpamkudzkwib4823-04-33E70:17:00G.PDO [id number] for patient [id number]:32:06 2022-04-01 15:44:00 [id number] [place] [address] PATIENT NAME: SCARLETT GARRETT ADMIT DATE: ACCOUNT NO: [id number] ROOM NO: AGE: 86 REPORT TYPE: eELECTROCARDIOGRAM REPORT SEX: F ADMITTING PHYSICIAN: ATTENDING PHYSICIAN:Chace Nava MD Order:[id number] Reason : PREOP Test Date/Time Stamp:ThuApr 01 2022 15:44:58Blood Pressure : / mmHGVent. Rate : 095 BPM Atrial Rate : 111 BPM P-R Int : 000 ms QRS Dur : 072 ms QT Int : 372 ms P-R-T Axes : 000 080 090 degrees QTc Int : 467 ms Atrial fibrillationAnteroseptal infarct , age undeterminedAbnormal ECGNo previous ECGs availableConfirmed by MADELYN CHAMBERS, DANIELA ([id number]) on 04/01/2022 4:28:22 PM Referred By: Chace Nava Confirmed by:LELA JOSHI MD at 1628 PATIENT NAME: SCARLETT GARRETT .[id number] 58AVAvailable for patient [id number]:28:53
[2023-09-12 11:13] LABS: Absolute Lymphocytes (CBC) 0.8 K/uL (0.7-4.9); Hematocrit 33.8 % (36.0-45.0); MCV 98.9 fL (80-100); MPV 6.7 fL (7.6-11.3); Platelets 238 thou/uL (152-406); RBC Red Blood Cell Count 3.42 M/uL (3.86-4.86)
[2023-09-12] MEDS ORDERED: MORPHINE 4 MG/ML SYR ONE ×2 (11:14→12:47)
[2023-09-12] MEDS ORDERED: FAMOTIDINE 20 MG/2 ML VIAL IV ONE (11:15)
[2023-09-12] MEDS ORDERED: PROMETHAZINE 25 MG TABLET ONE (11:15)
[2023-09-12] MEDS ORDERED: NA CHLORIDE 0.9% 500 ML ONE (11:15)
[2023-09-12 11:27] LABS: Albumin 3.5 g/dL (3.4-5.0); Bilirubin Total 0.7 mg/dL (0.2-1.0); Potassium 3.9 mEq/L (3.5-5.1); Protein, Total 6.8 g/dL (6.4-8.2)
--- NOTE | 2023-09-12 12:05 | RAD REPORT ---
EXAM DESCRIPTION: CTAbdomen Pelvis W Contrast - 09/12/2023 11:50 am CLINICAL HISTORY: Abdominal pain. ABD PAIN COMPARISON: No comparisons TECHNIQUE: Biphasic CT imaging of the abdomen and pelvis was performed with 100 ml non-ionic IV cont rast. All CT scans are performed using dose optimization technique as appropriate and may include automated exposure control or mA/KV adjustment according to patient size. FINDINGS: Emphysematous lung bases. The liver contains a 3.3 cm bilobed cyst in the left lobe. Additional smaller cysts present adjacent. No intra or extrahepatic biliary tree dilatation. The spleen, pancreas, adrenal glands are normal. S mall cysts are present in both kidneys. No hydronephrosis. No bowel obstruction, free air, free fluid or abscess. Prominent diverticulosis coli of the rectosigm oid colon. The appendix is not identified as a discrete structure, however, no secondary findings of appendicitis are identified. No evidence of significant lymphadenopathy. Left total hip arthroplasty noted. Severe degenerative change right hip. Advanced scoliosis with hard goins in place in degenerative change of the lumbar spine. No acute fracture is evident. IMPRESSION: Quite significant diverticulosis coli of the sigmoid colon without definitive evidence o f diverticulitis. No acute fracture or trauma related abnormality suspected.
[2023-09-12] MEDS ORDERED: CEFEPIME 1 GM/VIAL ONE (12:47)
[2023-09-12] MEDS ORDERED: NA CHLORIDE 0.9% 100 ML ONE (12:47)
--- NOTE | 2023-09-12 12:52 | ER ---
Nurse's Notes [facility] Name: Scarlett Garrett Age: 88 yrs Sex: Female : 1935 Arrival Date: 09/12/2023 Time: 10:24 Bed 12 Private MD: Olive Gonzales Diagnosis: Diverticulosis of intestine, part unspecified, without perforation or abscess without bleeding;Lower abdominal pain, unspecified-left Presentation: 09/12 10:30 Chief complaint: Patient states: Fell 1 week ago, hip pain since. ll1 10:35 Coronavirus screen: Vaccine status: Patient reports receiving the 2nd dose of the covid ll1 vaccine. Client denies travel out of the [place] in the last 14 days. At this time, the client does not indicate any symptoms associated with coronavirus-19. Ebola Screen: Patient denies travel to an Ebola-affected area in the 21 days before illness onset. Initial Sepsis Screen: Does the patient meet any 2 criteria? No. Patient's initial sepsis screen is negative. Does the patient have a suspected source of infection? No. Patient's initial sepsis screen is negative. Risk Assessment: Do you want to hurt yourself or someone else? Patient reports no desire to harm self or others. Onset of symptoms was September 05, 2023. 10:35 Method Of Arrival: Ambulatory ll1 10:35 Acuity: VANESA 4 ll1 Triage Assessment: 10:36 General: Appears uncomfortable, Behavior is calm, cooperative, appropriate for age. ll1 Pain: Complains of pain in left hip Quality of pain is described as aching. Musculoskeletal: Circulation, motion, and sensation intact. Capillary refill < 3 seconds. Historical: - Allergies: 10:36 Cipro; ll1 10:36 Levaquin; ll1 - PMHx: 10:36 Hypothyroidism; Hypertension; mitral valve; Depression; Atrial Fib; Arthritis; severe ll1 tricuspid valve regurgitation; - PSHx: 10:36 Pacemaker placement; Valve replacement; ll1 - Immunization history:: Adult Immunizations up to date. - Social history:: Smoking status: Patient denies any tobacco usage or history of. Screenin:41 [facility] ED Fall Risk Assessment (Adult) Score/Fall Risk Level 3 or more points = High ll1 Risk Oriented to surroundings, Maintained a safe environment, Educated pt \\T\\ family on fall prevention, incl call for assistance when getting out of bed, Used ambulatory aids as needed (educated on \\T\\ assisted with), Utilized family, sitter, or virtual criminal intelligence analyst as indicated. Abuse screen: Denies threats or abuse. Nutritional screening: No deficits noted. Tuberculosis screening: No symptoms or risk factors identified. Assessment: 11:30 Reassessment: No changes from previously documented assessment. Patient and/or family ll1 updated on plan of care and expected duration. Pain level reassessed. Patient is alert, oriented x 3, equal unlabored respirations, skin warm/dry/pink. 12:41 Reassessment: No changes from previously documented assessment. Patient and/or family ll1 updated on plan of care and expected duration. Pain level reassessed. Patient is alert, oriented x 3, equal unlabored respirations, skin warm/dry/pink. "I was about to get up and walk out of here. I'm serious. Ever since [facility], I dont know what [facility]'s protocol is, but I cant get any pain relief. A few weeks ago I was here for infected cat bite and never got out of pain, and it was serious!" Apologized about her horrible visits to our hospital. 13:01 Reassessment: No changes from previously documented assessment. Patient and/or family ll1 updated on plan of care and expected duration. Pain level reassessed. Vital Signs: 10:32 BP 158 / 101; Pulse 60; Resp 16; Temp 98; Pulse Ox 100% on R/A; ll1 12:42 BP 176 / 83; Pulse 62; Resp 18; Pulse Ox 100% ; Pain 10/10; ll1 13:01 BP 168 / 84; Pulse 60; Resp 17; Pulse Ox 98% on R/A; ll1 12:42 Pain Scale: Adult ll1 ED Course: 10:25 Patient arrived in ED. as 10:26 Olive Gonzales is Private Physician. as 10:29 Yessica Vincent FNP-C is [facility]. snw 10:29 Surya Sharpe MD is Attending Physician. snw 10:33 Arm band placed on Patient placed in an exam room, on a stretcher. ll1 10:36 Triage completed. ll1 10:37 ER process and procedures. ll1 10:50 Missed attempt(s): 20 gauge in right antecubital area. bc6 11:04 CBC with Diff Sent. bc6 11:04 CMP Sent. bc6 11:04 Lipase Sent. bc6 11:04 Inserted saline lock: 20 gauge in left forearm, using aseptic technique. Blood bc6 collected. 11:40 Kathya Duenas, RN is Primary Nurse. ll1 11:41 Patient has correct armband on for positive identification. Bed in low position. Call [facility] light in reach. 11:52 CT Abd/Pelvis - IV Contrast Only In Process Unspecified. EDMS 12:40 Provided Education on: n/a. 1 13:01 No provider procedures requiring assistance completed. IV discontinued, intact, ll1 bleeding controlled, No redness/swelling at site. Pressure dressing applied. Administered Medications: 11:24 Drug: Promethazine PO 25 mg PO once Route: PO; ll1 13:09 Follow up: Response: No adverse reaction [facility] 11:24 Drug: morphine IVP or IV 4 mg IVP once over 4 mins Route: IVP; Infused Over: 4 mins; [facility] Site: right antecubital; 13:09 Follow up: Response: No adverse reaction; RASS: Alert and Calm (0) [facility] 11:24 Drug: Famotidine IVP 20 mg IVP once; dilute with 10 mL 0.9% NaCl; give over 2 minutes [facility] Route: IVP; Site: right antecubital; 13:09 Follow up: Response: No adverse reaction [facility] 11:24 Drug: NS 0.9% IV 1000 ml IV at 75 ml/hr continuous Route: IV; Rate: 75 ml/hr; Site: ll1 right antecubital; 13:09 Follow up: Response: No adverse reaction; IV Status: Completed infusion; IV Intake: ll1 500ml 12:41 Drug: Cefepime IVPB 1 grams IVPB at 200 ml/hr once over 30 mins; (mix in NS 100 mL) [facility] Route: IVPB; Rate: 200 ml/hr; Infused Over: 30 mins; Site: left femoral; 13:09 Follow up: Response: No adverse reaction; IV Status: Completed infusion; IV Intake: ll1 100ml 12:41 Drug: morphine IVP or IV 4 mg IVP once over 4 mins Route: IVP; Infused Over: 4 mins; ll1 Site: left forearm; 13:09 Follow up: Response: No adverse reaction; RASS: Alert and Calm (0) ll1 Medication: 11:41 VIS not applicable for this client. ll1 Intake: 13:09 IV: 100ml; Total: 100ml. ll1 13:09 IV: 500ml; Total: 600ml. ll1 Outcome: 12:51 Discharge ordered by MD. snw 13:02 Discharged to home via wheelchair, ll1 13:02 Condition: stable 13:02 Discharge instructions given to patient, Instructed on discharge instructions, follow up and referral plans. medication usage, Demonstrated understanding of instructions, follow-up care, medications, Prescriptions given X 4, 13:10 Patient left the ED. ll1 Signatures: Dispatcher [employer] EDMS Yessica Vincent, CINDY ETYMOLOGY PROFESSOR-Debby Mosher Lynsay, RN RN ll1 Raine Angulo bc6 Corrections: (The following items were deleted from the chart) 10:35 10:30 Chief complaint: Patient states: patient fell 1 week ago, here tofay with paon ll1 level at 7. ll1 13:08 12:41 Reassessment: No changes from previously documented assessment. Patient and/or ll1 family updated on plan of care and expected duration. Pain level reassessed. Patient is alert, oriented x 3, equal unlabored respirations, skin warm/dry/pink. ll1 13:08 12:42 Reassessment: No changes from previously documented assessment. Patient and/or ll1 family updated on plan of care and expected duration. Pain level reassessed. ll1
--- NOTE | 2023-09-12 12:52 | EDPHYS ---
Physician Documentation [facility] Name: Scarlett Garrett Age: 88 yrs Sex: Female : 1935 Arrival Date: 09/12/2023 Time: 10:24 Bed 12 Private MD: Olive Gonzales ED Physician Surya Sharpe HPI: 09/12 11:24 This 88 yrs old Female presents to ER via Ambulatory with complaints of Hip Pain. snw 11:24 The patient or guardian reports decreased range of motion, pain. that occurred at home. snw The complaints affect the left leg. Onset: The symptoms/episode began/occurred 1 week(s) ago, and became persistent. Severity of symptoms: At their worst the symptoms were moderate, severe. The patient has not experienced similar symptoms in the past. The patient has been recently seen by a physician: 1 week ago post fall pt went to outside ED. Scan negative. Historical: - Allergies: 10:36 Cipro; ll1 10:36 Levaquin; ll1 - PMHx: 10:36 Hypothyroidism; Hypertension; mitral valve; Depression; Atrial Fib; Arthritis; severe ll1 tricuspid valve regurgitation; - PSHx: 10:36 Pacemaker placement; Valve replacement; ll1 - Immunization history:: Adult Immunizations up to date. - Social history:: Smoking status: Patient denies any tobacco usage or history of. ROS: 11:12 Constitutional: Negative for fever, chills, and weight loss, Eyes: Negative for injury, snw pain, redness, and discharge, ENT: Negative for injury, pain, and discharge, Neck: Negative for injury, pain, and swelling, Cardiovascular: Negative for chest pain, palpitations, and edema, Respiratory: Negative for shortness of breath, cough, wheezing, and pleuritic chest pain, Abdomen/GI: Negative for abdominal pain, nausea, vomiting, diarrhea, and constipation, Back: Negative for injury and pain, : Negative for injury, bleeding, discharge, and swelling, Skin: Negative for injury, rash, and discoloration, Neuro: Negative for headache, weakness, numbness, tingling, and seizure, 11:12 MS/extremity: Positive for contusion, pain, of the left hip and left upper thigh, Exam: 11:10 Constitutional: This is a well developed, well nourished patient who is awake, alert, snw and in no acute distress. Head/Face: Normocephalic, atraumatic. ecchymosis to left chin Eyes: Pupils equal round and reactive to light, extra-ocular motions intact. Lids and lashes normal. Conjunctiva and sclera are non-icteric and not injected. Cornea within normal limits. Periorbital areas with no swelling, redness, or edema. ENT: Nares patent. No nasal discharge, no septal abnormalities noted. Tympanic membranes are normal and external auditory canals are clear. Oropharynx with no redness, swelling, or masses, exudates, or evidence of obstruction, uvula midline. Mucous membranes moist. Neck: Trachea midline, no thyromegaly or masses palpated, and no cervical lymphadenopathy. Supple, full range of motion without nuchal rigidity, or vertebral point tenderness. No Meningismus. Chest/axilla: Normal chest wall appearance and motion. Nontender with no deformity. No lesions are appreciated. Cardiovascular: Regular rate and rhythm with a normal S1 and S2. No gallops, murmurs, or rubs. Normal PMI, no JVD. No pulse deficits. Respiratory: Lungs have equal breath sounds bilaterally, clear to auscultation and percussion. No rales, rhonchi or wheezes noted. No increased work of breathing, no retractions or nasal flaring. MS/ Extremity: Pulses equal, no cyanosis. Neurovascular intact. Full, normal range of motion. Neuro: Awake and alert, GCS 15, oriented to person, place, time, and situation. Cranial nerves II-XII grossly intact. Motor strength 5/5 in all extremities. Sensory grossly intact. Cerebellar exam normal. Normal gait. Psych: Awake, alert, with orientation to person, place and time. Behavior, mood, and affect are within normal limits. 11:10 Abdomen/GI: Inspection: bruising, posterior aspect of left lateral abdomen and left lower quadrant, Bowel sounds: normal, Palpation: moderate abdominal tenderness, in the left lower quadrant, 11:10 Skin: Appearance: normal except for affected area, injury, contusion(s), that are deep, of the left submandibular area, left lower quad and left posterior hip, Vital Signs: 10:32 BP 158 / 101; Pulse 60; Resp 16; Temp 98; Pulse Ox 100% on R/A; ll1 12:42 BP 176 / 83; Pulse 62; Resp 18; Pulse Ox 100% ; Pain 10/10; ll1 13:01 BP 168 / 84; Pulse 60; Resp 17; Pulse Ox 98% on R/A; ll1 12:42 Pain Scale: Adult ll1 MDM: 10:30 Patient medically screened. snw 11:38 ED course: To CT via stretcher, no significant improvement with Morphine. snw 12:53 Differential diagnosis: abdominal contusion, diverticulitis. Data reviewed: vital snw signs, nurses notes. I considered the following discharge prescriptions or medication management in the emergency department Medications were administered in the Emergency Department. See MAR pt angry that pain medications are not more aggressive. . Counseling: I had a detailed discussion with the patient and/or guardian regarding the historical points, exam findings, and any diagnostic results supporting the discharge/admit diagnosis, the presence of at least one elevated blood pressure reading (>120/80) during this emergency department visit, lab results, radiology results, the need for outpatient follow up, for definitive care, a family practitioner, a retail agent, to return to the emergency department if symptoms worsen or persist or if there are any questions or concerns that arise at home. Response to treatment: the patient's symptoms have mildly improved after treatment. Special discussion: Based on the patient's Hx, exam, and Dx evaluation, there is no indication for emergent surgery or inpatient Tx. It is understood by the patient/guardian that if the Sx's persist or worsen they need to return immediately for re-evaluation. I have referred the patient to see his PCP for further evaluation of high blood pressure. Based on the history and exam findings, there is no indication for further emergent testing or inpatient evaluation. I discussed with the patient/guardian the need to see the retail agent for further evaluation of the symptoms. I discussed with the patient/guardian the need to see the primary care provider for further evaluation of the symptoms. 09/12 10:43 Order name: CBC with Diff; Complete Time: : snw 09/12 10:43 Order name: CMP; Complete Time: 11: snw 09/12 10:43 Order name: Lipase; Complete Time: 11: snw 09/12 10:43 Order name: CT Abd/Pelvis - IV Contrast Only; Complete Time: 12:05 snw 09/12 10:43 Order name: IV Saline Lock; Complete Time: 10:58 snw 09/12 10:43 Order name: Labs collected and sent; Complete Time: 10:58 snw Administered Medications: 11:24 Drug: Promethazine PO 25 mg PO once Route: PO; ll1 13:09 Follow up: Response: No adverse reaction 1 11:24 Drug: morphine IVP or IV 4 mg IVP once over 4 mins Route: IVP; Infused Over: 4 mins; ll1 Site: right antecubital; 13:09 Follow up: Response: No adverse reaction; RASS: Alert and Calm (0) 1 11:24 Drug: Famotidine IVP 20 mg IVP once; dilute with 10 mL 0.9% NaCl; give over 2 minutes ll1 Route: IVP; Site: right antecubital; 13:09 Follow up: Response: No adverse reaction 1 11:24 Drug: NS 0.9% IV 1000 ml IV at 75 ml/hr continuous Route: IV; Rate: 75 ml/hr; Site: ll1 right antecubital; 13:09 Follow up: Response: No adverse reaction; IV Status: Completed infusion; IV Intake: ll1 500ml 12:41 Drug: Cefepime IVPB 1 grams IVPB at 200 ml/hr once over 30 mins; (mix in NS 100 mL) ll1 Route: IVPB; Rate: 200 ml/hr; Infused Over: 30 mins; Site: left femoral; 13:09 Follow up: Response: No adverse reaction; IV Status: Completed infusion; IV Intake: ll1 100ml 12:41 Drug: morphine IVP or IV 4 mg IVP once over 4 mins Route: IVP; Infused Over: 4 mins; ll1 Site: left forearm; 13:09 Follow up: Response: No adverse reaction; RASS: Alert and Calm (0) 1 Disposition Summary: 09/12/23 12:51 Discharge Ordered Notes: Location: Home snw Condition: Stable snw Diagnosis - Diverticulosis of intestine, part unspecified, without perforation or abscess snw without bleeding - Lower abdominal pain, unspecified - left snw Followup: snw - With: Emergency Department - When: As needed - Reason: Worsening of condition Followup: snw - With: Private Physician - When: 2 - 3 days - Reason: Recheck today's complaints, Continuance of care, Re-evaluation by your physician Discharge Instructions: - Discharge Summary Sheet snw - Abdominal Pain, Adult snw - Diverticulosis snw - Gas and Gas Pains, Pediatric snw - [place] Diet snw Forms: - Medication Reconciliation Form snw - Thank You Letter snw - Antibiotic Education snw - Prescription Opioid Use snw - Patient Portal Instructions snw - Leadership Thank You Letter snw Prescriptions: - Augmentin 875-125 mg Oral Tablet - take 1 tablet ORAL route every 12 hours for 10 days; 20 tablet; Refills: 0, snw Product Selection Permitted - Flagyl 500 mg Oral Tablet - take 1 tablet ORAL route every 8 hours for 10 days; 30 tablet; Refills: 0, snw Product Selection Permitted - promethazine 25 mg Oral Tablet - take 1 tablet ORAL route every 6 hours As needed; 20 tablet; Refills: 0, snw Product Selection Permitted - dicyclomine 20 mg Oral tablet - take 1 tablet ORAL route 3 times per day As needed; 21 tablet; Refills: 0, snw Product Selection Permitted Signatures: Dispatcher [employer] Yessica Vences, ELECTROSTATIC PAINT OPERATOR-C ELECTROSTATIC PAINT OPERATOR-Csnw Kathya Duenas, RN RN ll1
[2023-09-12 13:55] VITALS: TEMP 98
[2023-09-12 13:59] VITALS: BP 168/84; O2SAT 98
== END 2023-09-12 13:10 | disposition home or self-care (01) ==
LOC: ER 10:24
DX: K57.30 Diverticulosis of large intestine without perforation or abscess without bleeding (principal); S70.02XA Contusion of left hip, initial encounter; Z95.0 Presence of cardiac pacemaker; Z88.1 Allergy status to other antibiotic agents
CPT/HCPCS: 85025; 36415; 83690; 80053; 74177; 99284; Q9967; Q0169; J7040; J0692

== ENCOUNTER 2024-12-22 10:43 | Emergency (ER) | payer OTHER ==
--- NOTE | 2024-12-22 13:31 | RAD REPORT ---
EXAM: XR Knee Left 3 View HISTORY: [facility] MA[facility] PAIN Bed Name: DIS6 COMPARISON: None TECHNIQUE: 3 views of the left knee were obtained. FINDINGS: Moderate to large knee effusion is seen. Crescentic radiodensities along the suprapatellar space could relate to loose bodies or dystrophic calcifications. There is no evidence of acute displaced fracture or dislocation. There is however somewhat depressed subarticular contours along th e lateral femoral condyle and lateral tibial plateau, could relate to sequelae of axial loading or insufficiency fractures of indeterminate age. Diffuse osteopenia which limits evaluation. Moderate tr icompartmental degenerative changes are seen. Mild soft tissue swelling about the knee most notable medially. IMPRESSION: Mildly depressed subarticular bony contours along the lateral femoral condyle and lateral tibial plat eau, could relate to sequelae of axial loading or insufficiency fractures of indeterminate age. Moderate to large joint effusion.
--- NOTE | 2024-12-22 14:50 | RAD REPORT ---
EXAMINATION: CT PELVIS WITHOUT CONTRAST CLINICAL INDICATION: Female, 89 years old.[facility] MA[facility] rule out fracture X-RAY inconclusive TECHNIQUE: CT pelvis was performed, without IV contrast, as per department protocol. Axial, sagittal and coronal reconstructions were obtained. One or more of the following dose reduction techniques were used: Automated exposure control, adjustment of the mA and/or kV according to patient size, and/ or iterative reconstruction. Unless otherwise specified, incidental findings do not require dedicated imaging follow-up. COMPARISON: No prior exam. FINDINGS: The lack of intravenous contrast limits the sensitivity of this exam for evaluation of solid visceral organs, vascular structures, and retroperitoneum. MUSCULOSKELETAL: Diffuse osteopenia limits evaluation. No acute fracture or dislocation. Osseous ebony deling with marginal osteophytosis and subchondral osseous irregularities throughout the 3 knee compartments, with marked joint space loss along the lateral weightbearing articulation. Some subchon dral cystic changes are also present. Mineralization noted along the lateral meniscus and again weightbearing articular cartilage.. SOFT TISSUES: Large joint effusion. Linear mineralization within the suprapatellar and posterior join t space, could relate to mineralization at the setting of long-standing synovitis or synovial chondromatosis. ADDITIONAL FINDINGS: None. IMPRESSION: No evidence of acute fracture or dislocation. Large joint effusion. Diffuse osteopenia. Tricompartmental up to advanced osteoarthritic changes, and cartilaginous and synovial mineralization as above.
--- NOTE | 2024-12-22 15:12 | EDPHYS ---
[facility] Name: Scarlett Garrett Age: 89 yrs Sex: Female : 1935 Arrival Date: 12/22/2024 Time: 10:43 Bed 26 Private MD: ALLYSSA Physician López Bedoya HPI: 12/22 12:05 This 89 yrs old Female presents to ER via Wheelchair with complaints of Fall dexter Injury, Leg Injury. 12:05 Details of fall: The patient fell from an upright position, while standing. Onset: The dexter symptoms/episode began/occurred last night. Associated injuries: The patient sustained left knee, painful injury, swelling. Severity of symptoms: At their worst the symptoms were moderate, in the emergency department the symptoms are unchanged. The patient has not experienced similar symptoms in the past. Historical: - Allergies: 11:52 Cipro; hb 11:52 Levaquin; hb - PMHx: 11:52 Arthritis; Depression; Hypertension; Parkinson's disease; Hypothyroidism; mitral valve; hb Atrial Fib; severe tricuspid valve regurgitation; - PSHx: 11:52 Valve replacement; Pacemaker placement; hb - Immunization history:: Adult Immunizations up to date. - Infectious Disease History:: Denies. - Social history:: Smoking status: Patient denies any tobacco usage or history of. ROS: 12:06 Constitutional: Negative for fever, chills, and weight loss, Eyes: Negative for injury, dexter pain, redness, and discharge, ENT: Negative for injury, pain, and discharge, Neck: Negative for injury, pain, and swelling, Cardiovascular: Negative for chest pain, palpitations, and edema, Respiratory: Negative for shortness of breath, cough, wheezing, and pleuritic chest pain, Abdomen/GI: Negative for abdominal pain, nausea, vomiting, diarrhea, and constipation, Back: Negative for injury and pain, : Negative for injury, bleeding, discharge, and swelling, Skin: Negative for injury, rash, and discoloration, Neuro: Negative for headache, weakness, numbness, tingling, and seizure, Psych: Negative for depression, anxiety, suicide ideation, homicidal ideation, and hallucinations, Allergy/Immunology: Negative for hives, rash, and allergies, Endocrine: Negative for neck swelling, polydipsia, polyuria, polyphagia, and marked weight changes, Hematologic/Lymphatic: Negative for swollen nodes, abnormal bleeding, and unusual bruising, 12:06 MS/extremity: Positive for injury or acute deformity, decreased range of motion, pain, swelling, tenderness, of the left leg, Exam: 12:06 Constitutional: This is a well developed, well nourished patient who is awake, alert, dexter and in no acute distress. Head/Face: Normocephalic, atraumatic. Eyes: Pupils equal round and reactive to light, extra-ocular motions intact. Lids and lashes normal. Conjunctiva and sclera are non-icteric and not injected. Cornea within normal limits. Periorbital areas with no swelling, redness, or edema. ENT: Nares patent. No nasal discharge, no septal abnormalities noted. Tympanic membranes are normal and external auditory canals are clear. Oropharynx with no redness, swelling, or masses, exudates, or evidence of obstruction, uvula midline. Mucous membranes moist. Neck: Trachea midline, no thyromegaly or masses palpated, and no cervical lymphadenopathy. Supple, full range of motion without nuchal rigidity, or vertebral point tenderness. No Meningismus. Chest/axilla: Normal chest wall appearance and motion. Nontender with no deformity. No lesions are appreciated. Cardiovascular: Regular rate and rhythm with a normal S1 and S2. No gallops, murmurs, or rubs. Normal PMI, no JVD. No pulse deficits. Respiratory: Lungs have equal breath sounds bilaterally, clear to auscultation and percussion. No rales, rhonchi or wheezes noted. No increased work of breathing, no retractions or nasal flaring. Abdomen/GI: Soft, non-tender, with normal bowel sounds. No distension or tympany. No guarding or rebound. No evidence of tenderness throughout. Back: No spinal tenderness. No costovertebral tenderness. Full range of motion. Skin: Warm, dry with normal turgor. Normal color with no rashes, no lesions, and no evidence of cellulitis. Neuro: Awake and alert, GCS 15, oriented to person, place, time, and situation. Cranial nerves II-XII grossly intact. Motor strength 5/5 in all extremities. Sensory grossly intact. Cerebellar exam normal. Normal gait. Psych: Awake, alert, with orientation to person, place and time. Behavior, mood, and affect are within normal limits. 12:06 Musculoskeletal/extremity: ROM: limited active range of motion, limited passive range of motion, Circulation is intact in all extremities. Sensation intact. Compartment Syndrome exam of affected extremity: is normal. Joints: Weight bearing: is unable to bear weight, DVT Exam: negative Homans' sign noted on exam, no appreciated bluish discoloration, no erythema, no increased warmth, pain, swelling, tenderness, Vital Signs: 11:51 BP 142 / 61; Pulse 66; Resp 16; Temp 97; Pulse Ox 100% on R/A; Weight 59.42 kg; Height hb 5 ft. 9 in. ; Pain 9/10; 14:17 BP 146 / 81; Pulse 86; Resp 15; Pulse Ox 100% ; me1 15:00 BP 128 / 85; Pulse 65; Resp 16; Pulse Ox 95% ; me1 15:25 BP 132 / 82; Pulse 72; Resp 16; Temp 98.1; Pulse Ox 100% ; me1 11:51 Body Mass Index 19.35 (59.42 kg, 175.26 cm) hb 11:51 Pain Scale: Adult hb MDM: 10:47 Medical Screening Exam initiated dexter 12:07 Differential diagnosis: contusion, fracture, sprain, strain. Data reviewed: vital dexter signs, nurses notes, radiologic studies, plain films. Consideration of Admission/Observation Escalation of care including admission/observation considered. I considered the following discharge prescriptions or medication management in the emergency department Medications were administered in the Emergency Department. See MAR. Independent interpretation of the following test(s) in the Emergency Department X-Ray: My interpretation is left knee. Test considered but Not performed: Labs: no labs. Historians other than the Patient: Daughter/Son: daughter well informed. Care significantly affected by the following chronic conditions: Hypertension, mitral valve, parkinsonism, oa, depressioon. 12/22 11:57 Order name: Knee Left 3 View XRAY; Complete Time: 13:32 dexter 12/22 13:48 Order name: Knee Left Wo Con; Complete Time: 15:09 EDMS 12/22 11:57 Order name: Knee Immobilizer; Complete Time: 14:31 dexter 12/22 11:57 Order name: Ice pack; Complete Time: 14:31 dexter 12/22 11:57 Order name: Loki Wrap; Complete Time: 14:31 dexter Administered Medications: No medications were administered Disposition Summary: 12/22/24 15:12 Discharge Ordered Notes: Location: Home dexter Problem: new dexter Symptoms: have improved dexter Condition: Stable dexter Diagnosis - Fall on same level, unspecified dexter - Pain in left knee dexter - Effusion, left knee - large dexter Followup: dexter - With: Private Physician - When: 2 - 3 days - Reason: Recheck today's complaints, Continuance of care, Re-evaluation by your physician Followup: dexter - With: You Redmond MD - When: 2 - 3 days - Reason: Recheck today's complaints, Re-evaluation by your physician Discharge Instructions: - Discharge Summary Sheet dexter - Joint Pain dexter - Fall Prevention in the Home, Adult dexter - Knee Effusion dexter - How to Use a Knee Immobilizer dexter - Musculoskeletal Pain dexter - How to Use Cold Therapy, Yoee-jr-Amga dexter - Fall Prevention in the Home, Adult, [id number]-[id number] dexter - Knee Effusion, Kfuw-kx-Bygd dexter - How to Use a Knee Immobilizer, [id number]-zh-[id number] dexter - Acute Knee Pain, Adult, Nmzh-ki-Nssa dexter - Tibial Plateau Fracture Rehab dexter Forms: - Medication Reconciliation Form dexter - Antibiotic Education dexter - Prescription Opioid Use dexter - Patient Portal Instructions dexter - Leadership Thank You Letter dexter Signatures: Dispatcher [employer] López Harding MD MD cha Baxter, Heather, RN RN Shabnam Chadwick RN RN me1 Corrections: (The following items were deleted from the chart) 13:46 13:46 CT LEFT KNEE WO CONTRAST ordered. COLTEN ABEL
--- NOTE | 2024-12-22 15:12 | ER ---
Nurse's Notes [facility] Name: Scarlett Garrett Age: 89 yrs Sex: Female : 1935 Arrival Date: 12/22/2024 Time: 10:43 Bed 26 Private MD: Diagnosis: Fall on same level, unspecified;Pain in left knee;Effusion, left knee-large Presentation: 12/22 11:51 Chief complaint: Severe left knee pain after mechanical fall from standing last night. hb Unable to bear weight. Coronavirus screen: At this time, the client does not indicate any symptoms associated with coronavirus-19. Ebola Screen: No symptoms or risks identified at this time. Initial Sepsis Screen: Does the patient meet any 2 criteria? No. Patient's initial sepsis screen is negative. Does the patient have a suspected source of infection? No. Patient's initial sepsis screen is negative. Risk Assessment: Do you want to hurt yourself or someone else? Patient reports no desire to harm self or others. Onset of symptoms was December 21, 2024. 11:51 Method Of Arrival: Wheelchair hb 11:51 Acuity: VANESA 3 hb Historical: - Allergies: 11:52 Cipro; hb 11:52 Levaquin; hb - PMHx: 11:52 Arthritis; Depression; Hypertension; Parkinson's disease; Hypothyroidism; mitral valve; hb Atrial Fib; severe tricuspid valve regurgitation; - PSHx: 11:52 Valve replacement; Pacemaker placement; hb - Immunization history:: Adult Immunizations up to date. - Infectious Disease History:: Denies. - Social history:: Smoking status: Patient denies any tobacco usage or history of. Screenin:15 [facility] ED Fall Risk Assessment (Adult) History of falling in the last 3 months, me1 including since admission Yes- single mechanical fall (1 pt) Confusion or Disorientation No (0 pts) Intoxicated or Sedated No (0 pts) Impaired Gait Yes (1 pt) Mobility Assist Device Used Yes (1 pt) Altered Elimination No (0 pt) Score/Fall Risk Level 0 - 2 = Low Risk Maintained a safe environment, Provided non-skid footwear, Hourly rounding (assess needs \T\ fall precautionary measures) done. Abuse screen: Denies threats or abuse. Nutritional screening: No deficits noted. Tuberculosis screening: No symptoms or risk factors identified. Assessment: 14:15 General: Appears uncomfortable, slender, well groomed, well developed, Behavior is me1 calm, cooperative, appropriate for age, Reports Severe left knee pain after mechanical fall from standing last night. Unable to bear weight. Pain: Complains of pain in left leg and left knee Pain does not radiate. Pain currently is 7 out of 10 on a pain scale. at worst was 10. out of 10 on a pain scale. Quality of pain is described as sharp, Pain began 1 day ago. Is continuous, Aggravated by weight bearing. Neuro: Level of Consciousness is awake, alert, obeys commands, Oriented to person, place, time, situation, Appropriate for age. Cardiovascular: Patient's skin is warm and dry. Respiratory: Airway is patent Respiratory effort is even, unlabored, Respiratory pattern is regular, symmetrical. GI: No signs and/or symptoms were reported involving the gastrointestinal system. : No signs and/or symptoms were reported regarding the genitourinary system. EENT: No signs and/or symptoms were reported regarding the EENT system. Derm: Skin is intact, is healthy with good turgor, Skin is pink, warm \T\ dry. Musculoskeletal: Reports pain in left knee. Injury Description: Severe left knee pain after mechanical fall from standing last night. Unable to bear weight. Vital Signs: 11:51 BP 142 / 61; Pulse 66; Resp 16; Temp 97; Pulse Ox 100% on R/A; Weight 59.42 kg; Height hb 5 ft. 9 in. ; Pain 9/10; 14:17 BP 146 / 81; Pulse 86; Resp 15; Pulse Ox 100% ; me1 15:00 BP 128 / 85; Pulse 65; Resp 16; Pulse Ox 95% ; me1 15:25 BP 132 / 82; Pulse 72; Resp 16; Temp 98.1; Pulse Ox 100% ; me1 11:51 Body Mass Index 19.35 (59.42 kg, 175.26 cm) hb 11:51 Pain Scale: Adult hb ED Course: 10:45 Patient arrived in ED. mr 10:47 López Bedoya MD is Attending Physician. dexter 11:52 Triage completed. hb 11:52 Arm band placed on. hb 12:44 Knee Left 3 View XRAY In Process Unspecified. EDMS 13:59 Knee Left Wo Con In Process Unspecified. EDMS 14:15 Patient has correct armband on for positive identification. Bed in low position. Call me1 light in reach. Side rails up X 1. Provided Education on: POC. Verbalized understanding.. Client placed on continuous cardiac and pulse oximetry monitoring. NIBP monitoring applied. Pulse ox on. NIBP on. 14:15 No provider procedures requiring assistance completed. me1 14:20 Shabnam Chadwick, RN is Primary Nurse. me1 15:11 You Redmond MD is Referral Physician. [facility] 15:26 IV discontinued, intact, bleeding controlled, No redness/swelling at site. Pressure me1 dressing applied. Administered Medications: No medications were administered Medication: 14:15 VIS not applicable for this client. me1 Outcome: 15:12 Discharge ordered by . [facility] 15:26 Discharged to home via wheelchair, with family, me1 15:26 Condition: stable 15:26 Discharge instructions given to patient, family, Instructed on discharge instructions, follow up and referral plans. Demonstrated understanding of instructions, follow-up care, 15:26 Patient left the ED. me1 Signatures: Dispatcher [employer] López Harding MD MD cha Rivera, Mary, Reg Reg mr KaufmanShannon, RN RN Shabnam Chadwick, LEE ANN RN me1 Corrections: (The following items were deleted from the chart) 15:07 11:51 Chief complaint: Severe left knee pain after mechanical fall from standing last me1 night. Unable to bear weight.
[2024-12-22 15:52] VITALS: BP 132/82; TEMP 98.1; O2SAT 100
== END 2024-12-22 15:26 | disposition home or self-care (01) ==
LOC: ER 10:43
DX: M25.462 Effusion, left knee (principal); W18.30XA Fall on same level, unspecified, initial encounter; G20.A1 Parkinson's disease without dyskinesia, without mention of fluctuations; Z95.0 Presence of cardiac pacemaker
CPT/HCPCS: 73700; 99283